=== PATIENT | male | born 1940 | race Caucasian/White ===

== ENCOUNTER → 2017-01-29 | Outpatient (CLI) | payer MEDICARE, OTHER ==
[~2017-01-29] MED LIST: AC325T PO; ACET325T38 PO; ACHD5005 PO; ALBU0.8322 IH; ALBU2.5V4 INH; ALBU2.5V52 INH; ALBUTEROL INHALER; ALDACTONE25 MG; AMIO400T5 PO; ANTIBIOTIC; ASCO500C14 PO; ASCO500T20 PO; ASP81TEC PO; Amiodarone Hcl PO; Atorvastatin Calcium PO; BUDE6HFA INH; BUDESONIDE IH; CEFU500T PO; CHLO15MO3 MM; CHLORHEXIDINE GLUCON; CHLORHEXIDINE GLUCONATE PO; CHOL10002 PO; CHOL10003 PO; CLAR-19 PO; CLOP75TA PO; CRV25T; DIAZ2TAB2 PO; DIGO250T; DIGO250T15 PO; DIGO250T96 PO; DIGOXIN; DZPM2T PO; ESCI5TAB PO; Erythromycin OP; FLUT1DIS26 INH; FORMOTEROL FUMARATE IH; FRSM40T PO; GFN600TCR PO; HYDR-1231 PO; LEVO200T30 PO; LEVO300T2 PO; LEVO50TA63 PO; LEVO75TA6 PO; LISI10TA2 PO; LISI20TA PO; LSNP20T; Lisinopril PO; MELO-195 PO; MENT71OI EXT; MENT71OI TP; METO-272 PO; MNTL10T PO; MONT10TA24 PO; MORP5VIA IV; MPR22TI TOP; MTP25TSR PO; NYST1000 PO; Non Medication Item MC; Non Medication Item TP; Nystatin PO; Ondansetron PO; PHEN-633 PO; PHEN100C4 PO; PHEN64.8 PO; PHENOBARBITOL PO; PHN100C; PHN100C PO; PNT40TEC PO; POLY17PO23 PO; PRD20T PO; Polyethylene Glycol PO; Prednisone PO; SCP1.5TD TOP; SCR1T1 PO; SIMV10TA3 PO; SIMV40TA2 PO; SIMV40TA4 PO; SIMV80TA3 PO; WRF5T; [UNRECOGNIZED DRUG - CODE] PO
== END ==
LOC: RAD 12:41
PROVIDERS: ATTEND Internal Medicine Cardiovascular Disease
DX: I73.9 Peripheral vascular disease, unspecified (principal); I25.10 Atherosclerotic heart disease of native coronary artery without angina pectoris; Z95.810 Presence of automatic (implantable) cardiac defibrillator; I65.23 Occlusion and stenosis of bilateral carotid arteries; K21.9 Gastro-esophageal reflux disease without esophagitis; I25.5 Ischemic cardiomyopathy; I70.0 Atherosclerosis of aorta
CPT/HCPCS: 93923

== ENCOUNTER 2017-04-11 14:35 | Outpatient (RCR) | payer MEDICARE, OTHER | END 2017-04-14 | disposition home or self-care (01) | PROVIDERS: ATTEND Pain Medicine Interventional Pain Medicine | DX: R26.89 Other abnormalities of gait and mobility (principal); M48.06 Spinal stenosis, lumbar region ==

== ENCOUNTER 2017-05-27 13:27 | Outpatient (RCR) | payer MEDICARE, OTHER | END 2017-06-01 | disposition home or self-care (01) | PROVIDERS: ATTEND Pain Medicine Interventional Pain Medicine | DX: R26.89 Other abnormalities of gait and mobility (principal); M48.06 Spinal stenosis, lumbar region ==

== ENCOUNTER 2017-07-23 14:00 | Outpatient (RCR) | payer MEDICARE, OTHER | END 2017-07-23 14:41 | disposition home or self-care (01) | PROVIDERS: ATTEND Pain Medicine Interventional Pain Medicine | DX: M48.061 Spinal stenosis, lumbar region without neurogenic claudication (principal); R26.89 Other abnormalities of gait and mobility ==

== ENCOUNTER 2017-10-07 13:02 | Outpatient (RCR) | payer MEDICARE, OTHER | END 2017-10-07 13:47 | disposition home or self-care (01) | PROVIDERS: ATTEND Physician Assistant | DX: R26.89 Other abnormalities of gait and mobility (principal) ==

== ENCOUNTER → 2018-01-01 | Outpatient (RCR) | payer MEDICARE, OTHER | END | disposition home or self-care (01) | LOC: CR3 12-02 06:00 | PROVIDERS: ATTEND Internal Medicine Cardiovascular Disease | DX: Z29.8 Encounter for other specified prophylactic measures (principal) ==

== ENCOUNTER 2018-01-31 15:23 | Outpatient (RCR) | payer MEDICARE, OTHER | END 2018-02-02 | disposition home or self-care (01) | LOC: CR3 15:23 | PROVIDERS: ATTEND Internal Medicine Cardiovascular Disease | DX: Z29.8 Encounter for other specified prophylactic measures (principal) ==

== ENCOUNTER 2018-03-03 16:35 | Outpatient (RCR) | payer MEDICARE, OTHER | END 2018-03-05 | disposition home or self-care (01) | LOC: CR3 16:35 | PROVIDERS: ATTEND Internal Medicine Cardiovascular Disease | DX: Z29.8 Encounter for other specified prophylactic measures (principal) | CPT/HCPCS: 93798 ==

== ENCOUNTER 2018-04-04 17:33 | Outpatient (RCR) | payer MEDICARE, OTHER | END 2018-04-06 | disposition home or self-care (01) | LOC: CR3 17:33 | PROVIDERS: ATTEND Internal Medicine Cardiovascular Disease | DX: Z29.8 Encounter for other specified prophylactic measures (principal) ==

== ENCOUNTER → 2018-05-07 | Outpatient (RCR) | payer MEDICARE, OTHER | END | disposition home or self-care (01) | LOC: CR3 04-07 13:25 | PROVIDERS: ATTEND Internal Medicine Cardiovascular Disease | DX: Z29.8 Encounter for other specified prophylactic measures (principal) ==

== ENCOUNTER 2018-05-30 12:54 | Outpatient (RCR) | payer MEDICARE, OTHER | END 2018-06-01 | disposition home or self-care (01) | PROVIDERS: ATTEND Internal Medicine | DX: R26.81 Unsteadiness on feet (principal) ==

== ENCOUNTER 2018-06-06 12:56 | Outpatient (RCR) | payer MEDICARE, OTHER | END 2018-06-06 14:34 | disposition home or self-care (01) | PROVIDERS: ATTEND Internal Medicine | DX: R26.81 Unsteadiness on feet (principal) ==

== ENCOUNTER 2018-06-06 14:08 | Outpatient (RCR) | payer MEDICARE, OTHER | END 2018-06-08 | disposition home or self-care (01) | LOC: CR3 14:08 | PROVIDERS: ATTEND Internal Medicine Cardiovascular Disease | DX: Z29.8 Encounter for other specified prophylactic measures (principal) ==

== ENCOUNTER → 2018-07-09 | Outpatient (RCR) | payer MEDICARE, OTHER | END | disposition home or self-care (01) | LOC: CR3 06-09 14:00 | PROVIDERS: ATTEND Internal Medicine Cardiovascular Disease | DX: Z29.8 Encounter for other specified prophylactic measures (principal) ==

== ENCOUNTER 2018-08-06 14:42 | Outpatient (RCR) | payer MEDICARE, OTHER | END 2018-08-10 | disposition home or self-care (01) | LOC: CR3 14:42 | PROVIDERS: ATTEND Internal Medicine Cardiovascular Disease | DX: Z29.8 Encounter for other specified prophylactic measures (principal) ==

== ENCOUNTER 2018-09-01 14:03 | Outpatient (RCR) | payer MEDICARE, OTHER | END 2018-09-03 10:27 | disposition home or self-care (01) | PROVIDERS: ATTEND Otolaryngology Otolaryngology/Facial Plastic Surgery | DX: R42 Dizziness and giddiness (principal); R29.6 Repeated falls ==

== ENCOUNTER → 2018-09-10 | Outpatient (RCR) | payer MEDICARE, OTHER | END | disposition home or self-care (01) | LOC: CR3 08-11 15:22 | PROVIDERS: ATTEND Internal Medicine Cardiovascular Disease | DX: Z29.8 Encounter for other specified prophylactic measures (principal) ==

== ENCOUNTER 2018-09-11 12:55 | Outpatient (RCR) | payer MEDICARE, OTHER | END 2018-10-01 12:20 | disposition home or self-care (01) | PROVIDERS: ATTEND Otolaryngology Otolaryngology/Facial Plastic Surgery | DX: R42 Dizziness and giddiness (principal); R29.6 Repeated falls ==

== ENCOUNTER 2018-10-10 15:35 | Outpatient (RCR) | payer MEDICARE | END 2018-10-12 | disposition home or self-care (01) | LOC: CR3 15:35 | PROVIDERS: ATTEND Internal Medicine Cardiovascular Disease | DX: Z29.8 Encounter for other specified prophylactic measures (principal) ==

== ENCOUNTER → 2018-11-12 | Outpatient (RCR) | payer MEDICARE | END | disposition home or self-care (01) | LOC: CR3 10-13 14:00 | PROVIDERS: ATTEND Internal Medicine Cardiovascular Disease | DX: Z29.8 Encounter for other specified prophylactic measures (principal) ==

== ENCOUNTER 2018-12-12 14:52 | Outpatient (RCR) | payer MEDICARE | END 2018-12-14 | disposition home or self-care (01) | LOC: CR3 14:52 | PROVIDERS: ATTEND Internal Medicine Cardiovascular Disease | DX: Z29.8 Encounter for other specified prophylactic measures (principal) ==

== ENCOUNTER → 2019-01-16 | Outpatient (RCR) | payer MEDICARE | END | disposition home or self-care (01) | LOC: CR3 12-17 14:00 | PROVIDERS: ATTEND Internal Medicine Cardiovascular Disease | DX: Z29.8 Encounter for other specified prophylactic measures (principal) ==

== ENCOUNTER → 2019-01-20 | Outpatient (CLI) | payer MEDICARE ==
[~2019-01-20] VITALS: Ht 180.3 cm; Wt 94.3 kg
[~2019-01-20] MED LIST changes: +CATHETER FLUSH 10 ML SYR IV PRN; +REGADENOSON 0.4 MG/5 ML SYR (LEXISCAN) IV ONE
[2019-01-20 13:29] VITALS: BP 161/76
[2019-01-20 13:33] VITALS: BP 158/77
== END ==
LOC: CARD 11:46
PROVIDERS: ATTEND Nurse Practitioner Family
DX: I25.10 Atherosclerotic heart disease of native coronary artery without angina pectoris (principal); R06.09 Other forms of dyspnea; I34.0 Nonrheumatic mitral (valve) insufficiency
CPT/HCPCS: 78452; 93017; 93306

== ENCOUNTER → 2019-02-18 | Outpatient (RCR) | payer MEDICARE ==
[~2019-02-18] MED LIST changes: -CATHETER FLUSH 10 ML SYR IV PRN; -REGADENOSON 0.4 MG/5 ML SYR (LEXISCAN) IV ONE
== END | disposition home or self-care (01) ==
LOC: CR3 01-19 14:00
PROVIDERS: ATTEND Internal Medicine Cardiovascular Disease
DX: Z29.8 Encounter for other specified prophylactic measures (principal)

== ENCOUNTER 2019-03-12 23:50 | Emergency (ER) | payer MEDICARE, OTHER ==
[~2019-03-12] VITALS: Ht 180.3 cm; Wt 94.3 kg
--- NOTE | 2019-03-12 23:50 | NUR ---
PATIENT ARRIVES VIA EMS TO ROOM 3. PATIENT IS A&OX4, DENIES LOC FROM FALL. VERBALIZES HE FELL WHILE HE WAS GETTING READY FOR BED.
--- OUTSIDE RECORDS SUMMARY | 2019-03-12 23:58 | XMS REPORT | Clinical Summary ---
Author Author User, [employer] Organization Autumn Barrientos DO, DUNCANP Address Unknown Phone Allergies, Adverse Reactions, Alerts Allergy Name Reaction Description Start Date Severity Status Provider No Known Allergies Silvino Hsieh Conditions or Problems Problem Name Problem Code Onset Date Status Entry Date Provider Comment Standard Description Annotate COUMADIN THERAPY V58.61 Resolved Autumn Barrientos Long-term (current) use of anticoagulants CAD 414.00 Active Autumn Barrientos Coronary atherosclerosis of unspecified type of vessel, [place] or graft SEIZURE 780.3 Active Autumn Barrientos Convulsions TREMOR NEC 333.1 Active Autumn Barrientos Essential and other specified forms of tremor BENIGN PROSTATIC HYPERTROPHY, HX OF V13.8 Active Autumn Barrientos Personal history of other specified diseases NODULAR PROSTATE WITHOUT URINARY OBSTRUCTION 600.10 Resolved Autumn Barrientos Nodular prostate without urinary obstruction 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 Autumn Barrientos Achalasia and cardiospasm BRONCHITIS 490 Resolved Autumn Barrientos Bronchitis, not specified as acute or chronic RESPIRATORY FAILURE, ACUTE 518.81 Resolved Autumn Brarientos Acute respiratory failure PNEUMONIA 486 Resolved Autumn Barrientos Pneumonia, organism unspecified WHEEZING 786.07 Resolved Autumn Barrientos Wheezing ASTHMA, CHRN OBST W/(ACUTE) EXACERBATION 493.22 Resolved Autumn Barrientos Chronic obstructive asthma, with (acute) exacerbation ASTHMA, INTERMITTENT, 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 Active Autumn Barrientos Intrinsic asthma, unspecified CHF 428.0 Resolved Autumn Barrientos Congestive heart failure, unspecified DYSPNEA 786.09 Active Autumn Barrientos Other dyspnea and respiratory abnormality TORTICOLLIS 723.5 Resolved Autumn Barrientos Torticollis, unspecified HERPES ZOSTER 053.9 Resolved Autumn Barrientos Herpes zoster without mention of complication THRUSH 112.0 Resolved Autumn Barrientos Candidiasis of mouth BACK PAIN 724.5 Resolved Autumn Barrientos Backache, unspecified SINUSITIS, SPHENOIDAL, ACUTE 461.3 Resolved Autumn Barrientos Acute sphenoidal sinusitis FOOT PAIN, RIGHT 729.5 Resolved Autumn Barrientos Pain in limb COUGH 786.2 Resolved Autumn Barrientos Cough CHF 428.0 Active Autumn Barrientos Congestive heart failure, unspecified TINEA CRURIS 110.3 Resolved Autumn Barrientos Dermatophytosis of groin and perianal area ALKALINE PHOSPHATASE, ELEVATED 790.5 Resolved Autumn Barrientos Other nonspecific abnormal serum enzyme levels COPD 496 Active Autumn Barrientos Chronic airway obstruction, not elsewhere classified HYPERTENSION 401.1 Active Autumn Barrientos Benign essential hypertension EAR PAIN, BILATERAL 388.70 Resolved Autumn Barrientos Otalgia, unspecified KNEE PAIN 719.46 Resolved Autumn Barrientos Pain in joint involving lower leg CERUMEN IMPACTION, BILATERAL 380.4 Resolved Autumn Barrientos Impacted cerumen THROMBOCYTOPENIA, CHRONIC 287.5 Resolved Autumn Barrientos Thrombocytopenia, unspecified LEUKOPENIA, MILD 288.50 Resolved Autumn Barrientos Leukocytopenia, unspecified SICK SINUS SYNDROME 427.81 Active Autumn Barrientos Sinoatrial node dysfunction HAND PAIN, LEFT 729.5 Resolved Autumn Barrientos Pain in limb RESPIRATORY FAILURE, ACUTE 518.81 Resolved Autumn Barrientos Acute respiratory failure PNEUMONIA 486 Resolved Autumn Barrientos Pneumonia, organism unspecified INFLUENZA W/RESPIRATORY MANIFESTATION NEC 487.1 Resolved Autumn Barrientos Influenza with other respiratory manifestations LIVER FUNCTION TESTS, ABNORMAL 794.8 Resolved Autumn Barrientos Nonspecific abnormal results of function study of liver BRONCHITIS 490 Resolved Autumn Barrientos Bronchitis, not specified as acute or chronic DEPRESSION 311 Active Autumn Barrientos Depressive disorder, not elsewhere classified PRESSURE ULCER BUTTOCK 707.05 Resolved Autumn Barrientos Pressure ulcer, buttock HIP PAIN 719.45 Inactive Autumn Barrientos Pain in joint involving pelvic region and thigh MICROSCOPIC HEMATURIA 599.72 Inactive Autumn Barrientos Microscopic hematuria BRONCHITIS, CHRONIC 491.9 Resolved Autumn Barrientos Unspecified chronic bronchitis TORTICOLLIS 723.5 Resolved Autumn Barrientos Torticollis, unspecified HYPOTHYROIDISM, PRIMARY 244.9 Active Autumn Barrientos Unspecified hypothyroidism BRONCHITIS, ACUTE 466.0 Resolved Autumn Barrientos Acute bronchitis Medication List Medication Instructions Start Date Stop Date Generic Name NDC Status Provider Patient Instruction DOXYCYCLINE HYCLATE 100 MG CAP 1 po BID DOXYCYCLINE HYCLATE [id number] No Longer Active Autumn Barrientos PREDNISONE 10 MG TAB 4 PO at one time once daily for 2 days, then 3 PO at one time once daily for 2 days, and 2 PO at one time once daily for 2 days, and then 1 PO daily for 2 days. PREDNISONE [id number] No Longer Active Autumn Barrientos SYNTHROID 0.075 MG TAB 1 PO daily LEVOTHYROXINE SODIUM 66621569915 Active Autumn Barrientos NYSTATIN SUSP 5 ML PO Q 6 HRS NYSTATIN SUSP 47890533039 No Longer Active Autumn Barrientos AMIODARONE HCL 400 MG TABS 1 PO every other day AMIODARONE HCL 91787905817 No Longer Active Autumn Barrientos PREDNISONE 10 MG TABS TAKE 4 TABS PO DAILY X 2 DAYS, THEN 3 PILLS PO DAILY X 2 DAYS, THEN 2 PILLS PO DAILY X 2 DAYS, THEN ONE PILL PO DAILY X 2 DAYS PREDNISONE 80507057145 No Longer Active Autumn Barrientos VITAMIN C 500 MG TABS 2 po daily ASCORBIC ACID 26973487568 No Longer Active Autumn Barrientos HYDROCODONE-ACETAMINOPHEN 5-325 MG TABS 1-2 PO Q4-6 hrs prn pain HYDROCODONE-ACETAMINOPHEN 29951016097 No Longer Active Autumn Barrientos ZOCOR 10 MG TAB 1 PO Daily SIMVASTATIN 13594258448 Active Autumn Barrientos TRANSDERM-SCOP 1.5 MG PT72 1 patch behind ear and change every 3 days SCOPOLAMINE BASE 56145051719 No Longer Active Autumnnicole Barrientos LISINOPRIL 5 MG TABS 1 po daily LISINOPRIL 25679738235 Active Autumn Shira Barrientos DIGOXIN 0.25 MG TABS 1 PO daily DIGOXIN 08628886671 Active Autumn Shira Barrientos TOPROL XL 25 MG [id number] 2 PO daily METOPROLOL SUCCINATE 17315435515 Active Autumn Shira Barrientos VALIUM 2 MG TAB 1/2 - 1 PO BID prn muscle spasm DIAZEPAM 27437948940 No Longer Active Autumn Shira Barrientos KENALOG 0.1 % CREA apply to affected areas BID TRIAMCINOLONE ACETONIDE No Longer Active Autumnnicole Barrientos PREDNISONE 20 MG TAB 2 pills at once for 2 days then 1 pill daily for 5 days PREDNISONE 85764876372 No Longer Active Autumn Barrientos DOXYCYCLINE HYCLATE 100 MG CAP 1 po BID DOXYCYCLINE HYCLATE 97811806961 No Longer Active Autumnnicole Barrientos CALMOSEPTINE 0.44-20.625 % OINT Apply to affected areas TID prn MENTHOL-ZINC OXIDE 98217439019 Active Autumnnicole Barrientos BIAXIN 500 MG TAB 1 PO BID CLARITHROMYCIN 90738688190 No Longer Active Autumn Barrientos PREDNISONE 20 MG TAB 2 pills at once for 3 days then 1 pill daily for 5 days PREDNISONE 21774706469 No Longer Active Prabha Carmona PREDNISONE 20 MG TAB 2 pills at once for 4 days then 1 pill daily for 4 days PREDNISONE 90412948191 No Longer Active Autumnnicole Barrientos LEVAQUIN 500 MG TAB 1 PO QD LEVOFLOXACIN 85827150323 No Longer Active Autumnnicole Barrientos TYLENOL 325 MG TABS 2 po q 4 hrs prn pain ACETAMINOPHEN 11334765926 No Longer Active Autumn Shira Barrientos CALMOSEPTINE 0.44-20.625 % OINT Apply to affected area QID prn MENTHOL-ZINC OXIDE 98315612428 No Longer Active Autumn Shira Barrientos JANE ALLERGY 180 MG TABS 1 PO daily FEXOFENADINE HCL 04719070715 No Longer Active Autumn Shira Barrientos VALIUM 2 MG TAB 1 PO QHS prn DIAZEPAM 24671189084 No Longer Active Autumn Shira Barrientos FLEXERIL 10 MG TAB 1 PO QHS prn CYCLOBENZAPRINE HCL 18051472432 No Longer Active Autumn Shira Barrientos ANUSOL-HC 2.5 % CREA apply to affected area on rectum TID prn. HYDROCORTISONE 13156990217 No Longer Active Autumn Shira Barrientos LOTRISONE 0.05-1 % CREAM apply to affected areas twice daily CLOTRIMAZOLE-BETAMETHASONE 44706431140 No Longer Active Autumn Shira Barrientos SINGULAIR 10 MG TABS 1 PO QHS MONTELUKAST SODIUM 99640417471 Active Autumn Shira Barrientos PREDNISONE 20 MG TAB 2 pills at once for 3 days then 1 pill daily for 5 days PREDNISONE 69280893007 No Longer Active Autumn Shira Barrientos FUROSEMIDE 40 MG TABS 1 PO every day FUROSEMIDE 74388286011 Active Autumn Shira Barrientos TAMIFLU 75 MG CAPS 1 PO DAILY X 10 DAYS OSELTAMIVIR PHOSPHATE 62392967717 No Longer Active Autumn Shira Barrientos PREDNISONE 20 MG TABS 1 PO DAILY x 7 days then DC PREDNISONE 66304797599 No Longer Active Autunm Shira Barrientos PREDNISONE 20 MG TAB 2 pills at once for 3 days then 1 pill daily for 3 days PREDNISONE 72254100203 No Longer Active Autumn Shira Barrientos DOXYCYCLINE HYCLATE 100 MG CAP 1 po BID DOXYCYCLINE HYCLATE 38992931394 No Longer Active Autumn Barrientos DOCUSATE SODIUM 60 MG/15ML SYRP 2 drops left ear let stand for 5 minutes then rinse. Use daily for 7 days then return to office for flushing of ears DOCUSATE SODIUM 36276884233 No Longer Active Autumn Barrientos PREDNISONE 20 MG TAB 2 pills at once for 3 days then 1 pill daily for 3 days PREDNISONE 42640208265 No Longer Active Autumn Barrientos DOXYCYCLINE HYCLATE 100 MG CAP 1 po BID DOXYCYCLINE HYCLATE 15835989286 No Longer Active Autumn Barrientos MOBIC 15 MG TABS 1 PO daily for knee pain MELOXICAM 99336460327 No Longer Active Autumn Barrientos VITAMIN D 1000 UNIT TABS 2 PO Daily CHOLECALCIFEROL 42469466578 Active Autumn Barrientos DILANTIN 100 MG CAPS 2 PO QAM and 3 PO QPM PHENYTOIN SODIUM EXTENDED 92991705091 Active Briana Alford PLAVIX 75 MG TABS 1 PO every other day CLOPIDOGREL BISULFATE 85567784774 No Longer Active Autumn Barrientos PREDNISONE 20 MG TAB 3 pills daily at once for 2 days, 2 pills daily at once for 2 days, 1 once daily for 2 days PREDNISONE 83270811867 No Longer Active Autumn Barrientos LEVAQUIN 500 MG TAB 1 PO QD LEVOFLOXACIN 30850040677 No Longer Active Autumn Barrientos ZOSTAVAX 15927 UNT/0.65ML SOLR 1 injection once to prevent Shingles ZOSTER VACCINE LIVE 94674117082 No Longer Active Autumn Barrientos SYMBICORT 160-4.5 MCG/ACT AERO 2 puffs twice daily BUDESONIDE-FORMOTEROL FUMARATE 06858127685 Active Briana Alford ATROVENT 0.06 % SOLN 2 puffs each nostril TID prn runny nose IPRATROPIUM BROMIDE 63666994009 No Longer Active Autumn Barrientos PREDNISONE 20 MG TAB 3 pills daily at once for 2 days, 2 pills daily at once for 2 days, 1 once daily for 2 days PREDNISONE 78990410646 No Longer Active Autumn Barrientos BIAXIN 500 MG TAB 1 PO BID CLARITHROMYCIN 37744029318 No Longer Active Autumn Barrientos MOBIC 15 MG TABS 1 po daily MELOXICAM 73209762843 No Longer Active Autumn Barrientos PREDNISONE 20 MG TAB 3 pills daily at once for 2 days, 2 pills daily at once for 2 days, 1 once daily for 2 days PREDNISONE 89244198457 No Longer Active Autumn Barrientos TESSALON 200 MG CAPS 1 PO TID prn cough BENZONATATE 41667561436 No Longer Active Autumn Barrientos AUGMENTIN 500-125 MG TAB 1 PO BID AMOXICILLIN-POT CLAVULANATE 87885224416 No Longer Active Autumn ROBLEDO'Jone NASAL SPRAY (DEXAMETHASONE, GENTAMICIN, SALINE) 2 puffs each nostril TID for [address] HANLEY NASAL SPRAY (DEXAMETHASONE, GENTAMICIN, SALINE) No Longer Active Autumn Barrientos LOTRISONE 0.05-1 % CREAM Apply BID to affected areas CLOTRIMAZOLE-BETAMETHASONE 68499586932 No Longer Active Autumn Barrientos ACYCLOVIR 800 MG TABS 1 PO five times a day for 10 days ACYCLOVIR 65558470839 No Longer Active Autumn Barrientos LORTAB 5 5-500 MG TABS 1 to 2 PO Q6hrs prn ACETAMINOPHEN-HYDROCODONE 46310721334 No Longer Active Autumn Shira Barrientos VALTREX 1 GM TAB 1 PO BID VALACYCLOVIR HCL 37355846631 No Longer Active Autumn Shira Barrientos NYSTATIN 900968 U/ML SUSP 5cc PO QID for 7 days NYSTATIN 24854356582 No Longer Active Autumn Shira Barrientos DIFLUCAN 100 MG TAB 1 PO daily for five days FLUCONAZOLE 95945806987 No Longer Active Autumn Shira Barrientos MIRALAX POWD 1 scoop in 4oz of water PO daily POLYETHYLENE GLYCOL 3350 23824622895 Active Autumn Shira Barrientos BIAXIN 500 MG TAB 1 PO BID CLARITHROMYCIN 94849021150 No Longer Active Autumn Shira Barrientos MUCINEX 600 MG [id number] 1 po BID prn as needed GUAIFENESIN 44489297572 Active Autumn Shira Barrientos PREDNISONE 10 MG TAB 1 PO daily PREDNISONE 88194298414 No Longer Active Autumn Shira Barrientos ALBUTEROL SULFATE 0.083 % NEBU SOLN 1 Treatment QID ALBUTEROL SULFATE 85375112666 Active Autumn Shira Barrientos DARVOCET-N 100 100-650 MG TAB 1 PO Q4hrs prn pain PROPOXYPHENE N-APAP 90285201413 No Longer Active Autumn Shira Barrientos ASPIRIN 81 MG TAB 1 PO daily ASPIRIN 97947047204 Active Autumn Shira Barrientos COREG 25 MG TABS 1 po BID CARVEDILOL 13495814945 No Longer Active Autumn Shira Barrientos ALDACTONE 25 MG TABS 1/2 po every other day SPIRONOLACTONE 23665503222 No Longer Active Autumn Shira Barrientos CHLORPHENIRAMINE MALEATE 4 MG TABS 1 PO Q6hrs prn for cold CHLORPHENIRAMINE MALEATE 93967309848 No Longer Active Autumn Shira Barrientos PREDNISONE 20 MG TAB 2 pills at once for 3 days then 1 pill daily for 3 days PREDNISONE 53022553390 No Longer Active Autumn Barrientos BIAXIN 500 MG TAB 1 PO BID CLARITHROMYCIN 96209666771 No Longer Active Autumn Shira Barrientos CHLORHEXIDINE GLUCONATE 0.12 % SOLN Rinse mouth 2 times a day CHLORHEXIDINE GLUCONATE 70943816460 Active Autumn Barrientos COUMADIN 5 MG TABS 1 po daily WARFARIN SODIUM 12590839083 No Longer Active Autumn Shira Barrientos PHENOBARBITAL 64.8 MG TABS 2 po at HS PHENOBARBITAL 82934589648 Active Briana Alford Immunizations Vaccine Administration Date Value Standard Description Influenza vaccine given Done influenza virus vaccine, unspecified formulation Influenza vaccine given DONE influenza virus vaccine, unspecified formulation Influenza vaccine given Done influenza virus vaccine, unspecified formulation Comvax, combined Hemophilus influenza B and Hepatitis B virus vaccine Done - [facility] Haemophilus influenzae type b conjugate and Hepatitis B vaccine pneumococcal immunization administered Dr Barrientos pneumococcal polysaccharide vaccine, 23 valent Vital Signs Date Name Value Unit Range Description blood pressure, diastolic - 8462-4 62 mm[Hg] BP fuentes blood pressure, systolic - 8480-6 124 mm[Hg] BP sys pulse rate E&M - 8867-4 64 /min Heart rate respiratory rate E&M - 9279-1 14 /min Resp rate weight E&M - 3141-9 215 [lb_av] Weight Measured blood pressure, diastolic - 8462-4 60 mm[Hg] BP fuentes blood pressure, systolic - 8480-6 102 mm[Hg] BP sys pulse rate E&M - 8867-4 60 /min Heart rate respiratory rate E&M - 9279-1 14 /min Resp rate temperature E&M 97.5 [degF] Body temperature weight E&M - 3141-9 210 [lb_av] Weight Measured blood pressure, diastolic - 8462-4 64 mm[Hg] BP fuentes blood pressure, systolic - 8480-6 128 mm[Hg] BP sys pulse rate E&M - 8867-4 68 /min Heart rate respiratory rate E&M - 9279-1 14 /min Resp rate temperature E&M 97.8 [degF] Body temperature weight E&M - 3141-9 213 [lb_av] Weight Measured blood pressure, diastolic - 8462-4 60 mm[Hg] BP fuentes blood pressure, systolic - 8480-6 100 mm[Hg] BP sys pulse rate E&M - 8867-4 62 /min Heart rate respiratory rate E&M - 9279-1 14 /min Resp rate weight E&M - 3141-9 210 [lb_av] Weight Measured blood pressure, diastolic - 8462-4 60 mm[Hg] BP fuentes blood pressure, systolic - 8480-6 106 mm[Hg] BP sys pulse rate E&M - 8867-4 76 /min Heart rate respiratory rate E&M - 9279-1 14 /min Resp rate weight E&M - 3141-9 200 [lb_av] Weight Measured blood pressure, diastolic - 8462-4 68 mm[Hg] BP fuentes blood pressure, systolic - 8480-6 124 mm[Hg] BP sys pulse rate E&M - 8867-4 66 /min Heart rate respiratory rate E&M - 9279-1 14 /min Resp rate temperature E&M 97.9 [degF] Body temperature weight E&M - 3141-9 205 [lb_av] Weight Measured blood pressure, diastolic - 8462-4 64 mm[Hg] BP fuentes blood pressure, systolic - 8480-6 126 mm[Hg] BP sys pulse rate E&M - 8867-4 60 /min Heart rate respiratory rate E&M - 9279-1 14 /min Resp rate temperature E&M 98.6 [degF] Body temperature weight E&M - 3141-9 212 [lb_av] Weight Measured blood pressure, diastolic - 8462-4 60 mm[Hg] BP fuentes blood pressure, systolic - 8480-6 140 mm[Hg] BP sys pulse rate E&M - 8867-4 64 /min Heart rate respiratory rate E&M - 9279-1 14 /min Resp rate temperature E&M 97.9 [degF] Body temperature weight E&M - 3141-9 210 [lb_av] Weight Measured blood pressure, diastolic - 8462-4 66 mm[Hg] BP fuentes blood pressure, systolic - 8480-6 154 mm[Hg] BP sys pulse rate E&M - 8867-4 60 /min Heart rate respiratory rate E&M - 9279-1 18 /min Resp rate weight E&M - 3141-9 215 [lb_av] Weight Measured blood pressure, diastolic - 8462-4 70 mm[Hg] BP fuentes blood pressure, systolic - 8480-6 130 mm[Hg] BP sys pulse rate E&M - 8867-4 64 /min Heart rate respiratory rate E&M - 9279-1 14 /min Resp rate temperature E&M 98.6 [degF] Body temperature weight E&M - 3141-9 220 [lb_av] Weight Measured Diagnostic Results Date Name Value Unit Range Description Clinical Lists Update: CBC,CMP,CHOL,TRIG,TSH,FREE T4,DILANTIN,,FERRITIN,DIGOXIN - Chemistry potassium, serum 4.5 mmol/L protein, total, serum 7.1 g/dL aspartate aminotransferase (SGOT), serum 15 U/L alanine aminotransferase (SGPT), serum 17 U/L sodium, serum 136 mmol/L chloride, serum 99 mmol/L cholesterol, serum 216 mg/dL carbon dioxide, venous blood 30.0 mmol/L creatinine, serum 1.2 mg/dL Estimated Glomerular Filtration Rate (calc) 62 mL/min/1.73m2 ferritin, serum 133.9 ng/mL glucose, plasma fasting 103 mg/dL albumin, serum 4.2 g/dL alkaline phosphatase, serum 144 U/L anion gap, serum 12 bilirubin, serum, total 0.3 mg/dL urea nitrogen, blood 22 mg/dL calcium, serum 9.1 mg/dL thyroxine, serum, free 0.78 ng/dL triglyceride, serum, fasting 180 mg/dL thyroid stimulating hormone, serum 4.63 u[iU]/mL Clinical Lists Update: CBC,CMP,CHOL,TRIG,TSH,FREE T4,DILANTIN,,FERRITIN,DIGOXIN - Hematology mean corpuscular volume, RBC 101 fL erythrocyte (RBC) count 3.85 10*6/mm3 red blood cell distribution width 15.8 % platelet count 214 10*3/mm3 leukocyte count, blood 7.7 10*3/mm3 hematocrit, blood 39 % hemoglobin, blood 12.3 g/dL Clinical Lists Update: CBC,CMP,CHOL,TRIG,TSH,FREE T4,DILANTIN,,FERRITIN,DIGOXIN - Toxicology digoxin level, serum 0.8 ng/mL phenytoin level, serum 0.8 ug/mL Clinical Lists Update: CBC,CMP,Chol,Trig,TSH,Digoxin,Dilantin,Ferritin - Chemistry alkaline phosphatase, serum 170 U/L calcium, serum 8.7 mg/dL creatinine, serum 1.1 mg/dL carbon dioxide, venous blood 31.0 mmol/L cholesterol, serum 146 mg/dL triglyceride, serum, fasting 121 mg/dL chloride, serum 100 mmol/L protein, total, serum 6.7 g/dL sodium, serum 140 mmol/L urea nitrogen, blood 15 mg/dL alanine aminotransferase (SGPT), serum 45 U/L albumin, serum 3.8 g/dL anion gap, serum 14 bilirubin, serum, total 0.3 mg/dL potassium, serum 4.8 mmol/L glucose, plasma fasting 89 mg/dL aspartate aminotransferase (SGOT), serum 21 U/L ferritin, serum 66.7 ng/mL Estimated Glomerular Filtration Rate (calc) 70 mL/min/1.73m2 Clinical Lists Update: CBC,CMP,Chol,Trig,TSH,Digoxin,Dilantin,Ferritin - Hematology erythrocyte (RBC) count 3.93 10*6/mm3 hematocrit, blood 39 % red blood cell distribution width 15.3 % hemoglobin, blood 12.2 g/dL platelet count 214 10*3/mm3 mean corpuscular volume, RBC 100 fL leukocyte count, blood 5.8 10*3/mm3 Clinical Lists Update: CBC,CMP,Chol,Trig,TSH,Digoxin,Dilantin,Ferritin - Toxicology digoxin level, serum 0.9 ng/mL phenytoin level, serum 16.4 ug/mL Clinical Lists Update: CBC,CMP,Chol,Trig,TSH,Free T4,Ferritin, Digoxin, Dilantin - Chemistry alkaline phosphatase, serum 175 U/L albumin, serum 4.4 g/dL glucose, plasma fasting 92 mg/dL ferritin, serum 93.9 ng/mL Estimated Glomerular Filtration Rate (calc) 78 mL/min/1.73m2 creatinine, serum 1.0 mg/dL carbon dioxide, venous blood 30.0 mmol/L cholesterol, serum 185 mg/dL chloride, serum 99 mmol/L sodium, serum 137 mmol/L alanine aminotransferase (SGPT), serum 23 U/L aspartate aminotransferase (SGOT), serum 20 U/L protein, total, serum 7.2 g/dL potassium, serum 5.0 mmol/L triglyceride, serum, fasting 219 mg/dL thyroid stimulating hormone, serum 6.49 u[iU]/mL thyroxine, serum, free 0.88 ng/dL calcium, serum 9.4 mg/dL urea nitrogen, blood 18 mg/dL bilirubin, serum, total 0.4 mg/dL anion gap, serum 13 Clinical Lists Update: CBC,CMP,Chol,Trig,TSH,Free T4,Ferritin, Digoxin, Dilantin - Hematology mean corpuscular volume, RBC 99 fL red blood cell distribution width 14.6 % leukocyte count, blood 7.0 10*3/mm3 erythrocyte (RBC) count 4.69 10*6/mm3 hemoglobin, blood 14.5 g/dL platelet count 145 10*3/mm3 hematocrit, blood 46 % Clinical Lists Update: CBC,CMP,Chol,Trig,TSH,Free T4,Ferritin, Digoxin, Dilantin - Toxicology digoxin level, serum 1.3 ng/mL phenytoin level, serum 20.0 ug/mL Clinical Lists Update: CBC,CMP,Dilantin,Digoxin,Ferritin - Chemistry chloride, serum 106 mmol/L carbon dioxide, venous blood 29.0 mmol/L creatinine, serum 0.8 mg/dL Estimated Glomerular Filtration Rate (calc) 100 mL/min/1.73m2 ferritin, serum 74.6 ng/mL glucose, plasma fasting 104 mg/dL albumin, serum 4.2 g/dL alkaline phosphatase, serum 132 U/L anion gap, serum 12 bilirubin, serum, total 0.4 mg/dL urea nitrogen, blood 15 mg/dL calcium, serum 9.0 mg/dL potassium, serum 4.9 mmol/L protein, total, serum 6.9 g/dL aspartate aminotransferase (SGOT), serum 20 U/L alanine aminotransferase (SGPT), serum 26 U/L sodium, serum 142 mmol/L Clinical Lists Update: CBC,CMP,Dilantin,Digoxin,Ferritin - Hematology platelet count 154 10*3/mm3 leukocyte count, blood 5.2 10*3/mm3 mean corpuscular volume, RBC 98 fL hemoglobin, blood 13.2 g/dL erythrocyte (RBC) count 4.25 10*6/mm3 hematocrit, blood 42 % red blood cell distribution width 14.5 % Clinical Lists Update: CBC,CMP,Dilantin,Digoxin,Ferritin - Toxicology phenytoin level, serum 11.7 ug/mL digoxin level, serum 1.1 ng/mL Clinical Lists Update: CBC,CMP,UA IN [facility] LAB[facility] - Chemistry alanine aminotransferase (SGPT), serum 23 U/L sodium, serum 133 mmol/L aspartate aminotransferase (SGOT), serum 15 U/L potassium, serum 4.0 mmol/L calcium, serum 8.4 mg/dL urea nitrogen, blood 15 mg/dL bilirubin, serum, total 0.3 mg/dL alkaline phosphatase, serum 97 U/L chloride, serum 101 mmol/L carbon dioxide, venous blood 26 mmol/L creatinine, serum 1.12 mg/dL Estimated Glomerular Filtration Rate (calc) >60 mL/min/1.73m2 glucose, plasma fasting 148 mg/dL protein, total, serum 6.1 g/dL albumin, serum 3.1 g/dL Clinical Lists Update: CBC,CMP,UA IN PT LABS - Hematology mean corpuscular volume, RBC 94 fL leukocyte count, blood 5.7 10*3/mm3 platelet count 116 10*3/mm3 hematocrit, blood 32 % erythrocyte (RBC) count 3.37 10*6/mm3 hemoglobin, blood 10.6 g/dL red blood cell distribution width 14.3 % Clinical Lists Update: CBC,CMP,UA IN PT LABS - Urinalysis nitrite, urine, semiquantitative neg pH, urine, semiquantitative 5 protein, urine, semiquantitative (dipstick) 3+ RBC urine by microscopy 2-5 specific gravity, urine 1.025 glucose, urine, semiquantitative neg hyaline casts, urine none /[LPF] ketones, urine, by test strip neg appearance, urine Cloudy Yellow bacteria, urine microscopy moderate bilirubin, urine neg blood in urine (hemoglobin) by dipstick 3+ mucus on urinalysis neg WBC urine on microscopy 25-50 {Cells}/[HPF] urobilinogen, urine, semiquantitative (dipstick) 1 Clinical Lists Update: CMP,FLP,Digoxin [facility] - Chemistry triglyceride, serum, fasting 160 mg/dL carbon dioxide, venous blood 34.0 mmol/L urea nitrogen, blood 16 mg/dL potassium, serum 4.4 mmol/L bilirubin, serum, total 0.3 mg/dL protein, total, serum 7.1 g/dL anion gap, serum 9 alkaline phosphatase, serum 170 U/L albumin, serum 4.3 g/dL aspartate aminotransferase (SGOT), serum 17 U/L LDL cholesterol, serum 114 mg/dL alanine aminotransferase (SGPT), serum 23 U/L HDL cholesterol, serum 31.0 mg/dL sodium, serum 137 mmol/L glucose, plasma fasting 106 mg/dL Estimated Glomerular Filtration Rate (calc) 96 mL/min/1.73m2 chloride, serum 98 mmol/L cholesterol/HDL ratio, serum, percent 5.7 cholesterol, serum 177 mg/dL creatinine, serum 0.8 mg/dL calcium, serum 9.4 mg/dL Clinical Lists Update: CMP,FLP,Digoxin [facility] - Toxicology digoxin level, serum 1.1 ng/mL Clinical Lists Update: CMP,PT,INR,TSH,Digoxin [facility] - Chemistry carbon dioxide, venous blood 32.0 mmol/L bilirubin, serum, total 0.4 mg/dL thyroid stimulating hormone, serum 3.07 u[iU]/mL Estimated Glomerular Filtration Rate (calc) 92 mL/min/1.73m2 chloride, serum 100 mmol/L glucose, plasma fasting 100 mg/dL calcium, serum 9.3 mg/dL potassium, serum 4.7 mmol/L sodium, serum 139 mmol/L creatinine, serum 0.9 mg/dL protein, total, serum 7.0 g/dL urea nitrogen, blood 15 mg/dL alanine aminotransferase (SGPT), serum 30 U/L albumin, serum 4.2 g/dL aspartate aminotransferase (SGOT), serum 24 U/L alkaline phosphatase, serum 127 U/L anion gap, serum 12 Clinical Lists Update: CMP,PT,INR,TSH,Digoxin [facility] - Coagulation prothrombin time (patient) 12.60 s international normalized ratio (INR) 0.99 Clinical Lists Update: CMP,PT,INR,TSH,Digoxin [facility] - Toxicology digoxin level, serum 0.9 ng/mL Clinical Lists Update: UA - Urinalysis bilirubin, urine neg ketones, urine, by test strip neg glucose, urine, semiquantitative neg specific gravity, urine <1.005 pH, urine, semiquantitative 6.0 nitrite, urine, semiquantitative neg protein, urine, semiquantitative (dipstick) neg Office Visit: Dr Barrientos's Check Up: Established Patient Visit - Chemistry chloride, serum 97 mmol/L sodium, serum 139 mmol/L carbon dioxide, venous blood 29.0 mmol/L carbon dioxide, venous blood 31.0 mmol/L creatinine, serum 0.8 mg/dL creatinine, serum 1.0 mg/dL chloride, serum 101 mmol/L sodium, serum 135 mmol/L alanine aminotransferase (SGPT), serum 16 U/L alanine aminotransferase (SGPT), serum 18 U/L aspartate aminotransferase (SGOT), serum 15 U/L aspartate aminotransferase (SGOT), serum 14 U/L protein, total, serum 7.3 g/dL protein, total, serum 6.4 g/dL Estimated Glomerular Filtration Rate (calc) 106 mL/min/1.73m2 Estimated Glomerular Filtration Rate (calc) 75 mL/min/1.73m2 glucose, plasma fasting 147 mg/dL glucose, plasma fasting 94 mg/dL albumin, serum 4.0 g/dL albumin, serum 4.3 g/dL alkaline phosphatase, serum 138 U/L alkaline phosphatase, serum 139 U/L anion gap, serum 13 anion gap, serum 11 bilirubin, serum, total 0.4 mg/dL bilirubin, serum, total 0.4 mg/dL urea nitrogen, blood 14 mg/dL urea nitrogen, blood 22 mg/dL calcium, serum 8.8 mg/dL calcium, serum 9.1 mg/dL thyroxine, serum, free 0.87 ng/dL thyroid stimulating hormone, serum 3.13 u[iU]/mL thyroid stimulating hormone, serum 2.44 u[iU]/mL potassium, serum 4.1 mmol/L potassium, serum 4.3 mmol/L Office Visit: Dr Barrientos's Check Up: Established Patient Visit - Hematology erythrocyte (RBC) count 4.29 10*6/mm3 hemoglobin, blood 13.5 g/dL hematocrit, blood 43 % leukocyte count, blood 6.4 10*3/mm3 platelet count 143 10*3/mm3 mean corpuscular volume, RBC 99 fL red blood cell distribution width 15.1 % Office Visit: Dr Keller Check Up: Established Patient Visit - Toxicology digoxin level, serum 0.8 ng/mL Encounters Code Encounter Date Provider Facility CPT-86822 Ofc Vst, Est Level III 14:19:06 CDT Autumnnicole Becerril Barrientos, DO, FACP CPT-67253 Ofc Vst, Est Level III 13:33:45 CDT Autumn Shira Becerril Barrientos, DO, FACP CPT-67917 Ofc Vst, Est Level III 17:12:01 CDT Autumn Shira Becerril Barrientos, DO, FACP CPT-46398 Ofc Vst, Est Level IV 21:01:56 CDT Autumnnicole Becerril Barrientos, DO, FACP CPT-71974 Ofc Vst, Est Level III 15:48:19 [employer] Autumn Becerril Barrientos, DO, FACP CPT-06634 Ofc Vst, Est Level IV 15:01:25 [employer] Autumn Becerril Barrientos, DO, FACP CPT-67672 Ofc Vst, Est Level III 16:54:20 [employer] Autumn Becerril Barrientos, DO, FACP CPT-15455 Ofc Vst, Est Level III 19:49:29 CDT Autumnnicole Becerril Barrientos, DO, FACP CPT-18095 Ofc Vst, Est Level III 19:25:35 CDT Autumn Becerril Barrientos, DO, FACP CPT-26916 Ofc Vst, Est Level III 19:01:53 CDT Autumnnicole Becerril Barrientos, DO, FACP CPT-31757 Ofc Vst, Est Level III 16:32:38 [employer] Autumn Becerril Barrientos, DO, FACP CPT-05448 Ofc Vst, Est Level III 15:37:57 [employer] Autumn Barrientos [facility] CPT-60918 Ofc Vst, Est Level III 12:03:55 [employer]EL[employer] Autumn Becerril Barrientos, DO, FACP CPT-18603 Ofc Vst, Est Level III 15:47:39 CDT Autumn Shira Becerril Barrientos, DO, FACP CPT-78820 Ofc Vst, Est Level III 16:50:03 CDT Autumn Shira Becerril Barrientos, DO, FACP CPT-23577 Ofc Vst, Est Level III 16:44:49 CDT Autumn Shira Becerril Barrientos, DO, FACP CPT-15417 Ofc Vst, Est Level III 12:02:26 CDT Autumn Shira Becerril Barrientos, DO, FACP CPT-32314 Ofc Vst, Est Level III 16:20:59 CDT Autumn Shira Becerril Barrientos, DO, FACP CPT-58766 Ofc Vst, Est Level III 11:47:46 CDT Autumn Sh[facility] CPT-61554 Ofc Vst, Est Level III 15:01:40 CDT Autumn Shira Becerril Barrientos, DO, FACP CPT-07607 Ofc Vst, Est Level III 15:21:49 CDT Autumn Shira Becerril Barrientos, DO, FACP CPT-53788 Ofc Vst, Est Level III 11:46:40 [employer] Autumn Shira Becerril Barrientos, DO, FACP CPT-71790 Ofc Vst, Est Level III 16:04:08 [employer]EL[employer] Autumn Shira Becerril Barrientos, DO, FACP CPT-54764 Ofc Vst, Est Level III 12:47:46 [employer]EL[employer] Autumn Becerril Barrientos, DO, FACP CPT-89782 Ofc Vst, Est Level III 14:12:37 [employer]EL[employer] Autumn Shira Becerril Barrientos, DO, FACP CPT-99731 Ofc Vst, Est Level III 20:15:48 CDT Autumn Shira Becerril Barrientos, DO, FACP CPT-45194 Ofc Vst, Est Level III 14:50:03 CDT Autumn Shira Becerril Barrientos, DO, FACP CPT-60281 Ofc Vst, Est Level IV 11:07:07 CDT Autumn Shira Becerril Barrientos, DO, FACP CPT-15576 Ofc Vst, Est Level IV 10:56:03 [employer]EL[employer] Autumn Leyva S Barrientos, DO, FACP CPT-19194 Ofc Vst, Est Level III 10:34:42 [employer]EL[employer] Autumn Shira Leyva S Barrientos, DO, FACP CPT-69197 Ofc Vst, Est Level IV 11:18:10 [employer]EL[employer] Autumn Shira Becerril Iliana, DO, FACP CPT-63887 Ofc Vst, Est Level III 10:56:32 CDT Autumn Shira Becerril Iliana, DO, FACP CPT-00960 Ofc Vst, Est Level IV 11:11:23 CDT Autumn Shira Becerril Iliana, DO, FACP CPT-98189 Ofc Vst, Est Level IV 11:24:11 CDT Autumnnicole Becerril Iliana, DO, FACP CPT-99339 Ofc Vst, Est Level III 11:36:54 CDT Autumn Shira Becerril Iliana, DO, FACP CPT-14483 Ofc Vst, Est Level V 15:07:54 CDT Autumn Shira Leyva S Iliana, DO, FACP CPT-82025 Ofc Vst, Est Level III 16:05:11 CDT Autumn Shira Becerril Iliana, DO, FACP CPT-98158 Ofc Vst, Est Level IV 11:19:33 CDT Autumn Becerril Iliana, DO, FACP CPT-98899 Ofc Vst, Est Level III 11:16:56 [employer]EL[employer] Autumn Becerril Barrientos, DO, FACP CPT-23608 Ofc Vst, Est Level IV 11:12:37 [employer]ELOPER Autumn Becerril Barrientos, DO, FACP CPT-06056 Ofc Vst, Est Level IV 15:21:42 [employer] DEVELOPER Autumn Barrientos [facility] CPT-72407 Ofc Vst, Est Level IV 10:49:32 [employer]ELOPER Autumn Becerril Iliana, DO, FACP CPT-73102 Ofc Vst, Est Level IV 13:16:00 CDT Autumn Becerril Iliana, DO, FACP CPT-42359 Ofc Vst, Est Level IV 10:47:17 CDT Autumnnicole Becerril Iliana, DO, FACP CPT-72920 Ofc Vst, Est Level IV 10:22:32 CDT Autumnnicole Becerril Iliana, DO, FACP CPT-61811 Ofc Vst, Est Level III 10:35:26 CDT Autumn Becerril Iliana, DO, FACP CPT-53826 Ofc Vst, Est Level IV 11:29:20 CDT Autumnnicole Becerril Iliana, DO, FACP CPT-02145 Ofc Vst, Est Level IV 13:52:31 CDT Autumn Shira Becerril Iliana, DO, FACP CPT-43422 Ofc Vst, Est Level IV 11:41:20 CDT Autumn Becerril Iliana, DO, FACP CPT-48802 Ofc Vst, Est Level IV 09:38:08 [employer]EL[employer] Autumn Becerril Iliana, DO, FACP CPT-15027 Ofc Vst, Est Level V 11:02:14 [employer]EL[employer] Autumn Becerril Barrientos, DO, FACP CPT-03497 Ofc Vst, Est Level V 10:30:31 [employer]ELOPER Autumn Becerril Barrientos, DO, FACP CPT-92797 Ofc Vst, Est Level IV 11:14:50 [employer]ELOPER Autumn Becerril Barrientos, DO, FACP CPT-44530 Ofc Vst, Est Level V 11:06:34 [employer]ELOPER Autumn Becerril Barrientos, DO, FACP CPT-23794 Ofc Vst, Est Level IV 11:30:08 [employer] DEVELOPER Autumn Becerril Barrientos, DO, FACP CPT-91996 Ofc Vst, Est Level V 11:35:41 CDT Autumn Becerril Iliana, DO, FACP CPT-66289 Ofc Vst, Est Level IV 10:09:46 CDT Autumnnicole Becerril Barrientos, DO, FACP CPT-90824 Ofc Vst, Est Level V 13:55:27 CDT Autumn Becerril Barrientos, DO, FACP CPT-20003 Ofc Vst, Est Level V 11:20:26 CDT Autumn Becerril Iliana, DO, FACP CPT-85823 Ofc Vst, New Level IV 16:42:29 CDT Autumn Becerril Barrientos, DO, FACP Procedures Code Procedure Name Date Entry Date Standard Description CPT-G0439 Medicare Annual Wellness Visit 10:22:06 [employer] CPT-G0439 Medicare Annual Wellness Visit 15:50:07 CDT CPT-G8446 E-Prescribing not done due to controlled substance 19:01:53 CDT CPT-G8445 E-Prescribing Not sent due to no medication given 16:32:38 [employer] CPT-G8443 E-Prescribing Medication Sent 15:37:57 [employer] CPT-G8445 E-Prescribing Not sent due to no medication given 12:03:55 [employer]EL[employer] CPT-G8445 E-Prescribing Not sent due to no medication given 15:47:39 CDT CPT-G8445 E-Prescribing Not sent due to no medication given 16:50:03 CDT CPT-G8443 E-Prescribing Medication Sent 13:18:53 CDT CPT-G0439 Medicare Annual Wellness Visit 13:18:53 CDT CPT-G8443 E-Prescribing Medication Sent 16:44:49 CDT CPT-G8445 E-Prescribing Not sent due to no medication given 12:02:26 CDT CPT-G8443 E-Prescribing Medication Sent 16:20:59 CDT CPT-G8445 E-Prescribing Not sent due to no medication given 11:47:46 CDT CPT-G8443 E-Prescribing Medication Sent 15:01:40 CDT CPT-G8443 E-Prescribing Medication Sent 15:21:49 CDT CPT-G8445 E-Prescribing Not sent due to no medication given 11:46:40 [employer]ELOPER CPT-G8443 E-Prescribing Medication Sent 16:04:08 [employer] DEVELOPER CPT-G8443 E-Prescribing Medication Sent 12:47:46 [employer]ELOPER CPT-G8445 E-Prescribing Not sent due to no medication given 14:12:37 [employer]ELOPER CPT-G8445 E-Prescribing Not sent due to no medication given 12:46:38 CDT CPT-45754 Ear Wax Removal 12:46:38 CDT CPT-G8443 E-Prescribing Medication Sent 20:15:48 CDT CPT-G0438 Medicare Annual Wellness Visit Initial 11:42:23 CDT
--- OUTSIDE RECORDS SUMMARY | 2019-03-12 23:59 | XMS REPORT | Clinical Summary ---
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 PREDNISONE 35997454458 No Longer Active Autumn Barrientos SYNTHROID 0.075 MG TAB 1 PO daily LEVOTHYROXINE SODIUM 70320475805 Active Autumn Barrientos NYSTATIN SUSP 5 ML PO Q 6 HRS NYSTATIN SUSP 59002595706 No Longer Active Autumn Barrientos AMIODARONE HCL 400 MG TABS 1 PO every other day AMIODARONE HCL 38685855823 No Longer Active Autumn Barrientos PREDNISONE 10 MG TABS TAKE 4 TABS PO DAILY X 2 DAYS, THEN 3 PILLS PO DAILY X 2 DAYS, THEN 2 PILLS PO DAILY X 2 DAYS, THEN ONE PILL PO DAILY X 2 DAYS PREDNISONE 95840610191 No Longer Active Autumn Barrientos VITAMIN C 500 MG TABS 2 po daily ASCORBIC ACID 08540426526 No Longer Active Autumn Barrientos HYDROCODONE-ACETAMINOPHEN 5-325 MG TABS 1-2 PO Q4-6 hrs prn pain HYDROCODONE-ACETAMINOPHEN 80901762688 No Longer Active Autumn Barrientos ZOCOR 10 MG TAB 1 PO Daily SIMVASTATIN 10937042266 Active Autumnnicole Barrientos TRANSDERM-SCOP 1.5 MG PT72 1 patch behind ear and change every 3 days SCOPOLAMINE BASE 83808283904 No Longer Active Autumnnicole Barrientos LISINOPRIL 5 MG TABS 1 po daily LISINOPRIL 75961107833 Active Autumn Shira Barrientos DIGOXIN 0.25 MG TABS 1 PO daily DIGOXIN 69689155612 Active Autumn Shira Barrientos TOPROL XL 25 MG [id number] 2 PO daily METOPROLOL SUCCINATE 65258488605 Active Autumn Shira Barrientos VALIUM 2 MG TAB 1/2 - 1 PO BID prn muscle spasm DIAZEPAM 64292650000 No Longer Active Autumn Shira Barrientos KENALOG 0.1 % CREA apply to affected areas BID TRIAMCINOLONE ACETONIDE No Longer Active Autumnnicole Barrientos PREDNISONE 20 MG TAB 2 pills at once for 2 days then 1 pill daily for 5 days PREDNISONE 96930064838 No Longer Active Autumnnicole Barrientos DOXYCYCLINE HYCLATE 100 MG CAP 1 po BID DOXYCYCLINE HYCLATE 97662136254 No Longer Active Autumnnicole Barrientos CALMOSEPTINE 0.44-20.625 % OINT Apply to affected areas TID prn MENTHOL-ZINC OXIDE 35900679686 Active Autumnnicole Barrientos BIAXIN 500 MG TAB 1 PO BID CLARITHROMYCIN 78112074771 No Longer Active Autumn Barrientos PREDNISONE 20 MG TAB 2 pills at once for 3 days then 1 pill daily for 5 days PREDNISONE 09886333661 No Longer Active Prabha Carmona PREDNISONE 20 MG TAB 2 pills at once for 4 days then 1 pill daily for 4 days PREDNISONE 93361210413 No Longer Active Autumnnicole Barrientos LEVAQUIN 500 MG TAB 1 PO QD LEVOFLOXACIN 63243574229 No Longer Active Autumn Shira Barrientos TYLENOL 325 MG TABS 2 po q 4 hrs prn pain ACETAMINOPHEN 85815996004 No Longer Active Autumn Shira Barrientos CALMOSEPTINE 0.44-20.625 % OINT Apply to affected area QID prn MENTHOL-ZINC OXIDE 19336125478 No Longer Active Autumn Shira Barrientos JANE ALLERGY 180 MG TABS 1 PO daily FEXOFENADINE HCL 33660321540 No Longer Active Autumn Shira Barrientos VALIUM 2 MG TAB 1 PO QHS prn DIAZEPAM 42402223503 No Longer Active Autumn Shira Barrientos FLEXERIL 10 MG TAB 1 PO QHS prn CYCLOBENZAPRINE HCL 62521445870 No Longer Active Autumn Shira Barrientos ANUSOL-HC 2.5 % CREA apply to affected area on rectum TID prn. HYDROCORTISONE 92502094903 No Longer Active Autumn Shira Barrientos LOTRISONE 0.05-1 % CREAM apply to affected areas twice daily CLOTRIMAZOLE-BETAMETHASONE 08053549597 No Longer Active Autumn Shira Barrientos SINGULAIR 10 MG TABS 1 PO QHS MONTELUKAST SODIUM 34963930367 Active Autumn Shira Barrientos PREDNISONE 20 MG TAB 2 pills at once for 3 days then 1 pill daily for 5 days PREDNISONE 54190187193 No Longer Active Autumn Shira Barrientos FUROSEMIDE 40 MG TABS 1 PO every day FUROSEMIDE 44195588339 Active Autumn Shira Barrientos TAMIFLU 75 MG CAPS 1 PO DAILY X 10 DAYS OSELTAMIVIR PHOSPHATE 86507295699 No Longer Active Autumn Shira Barrientos PREDNISONE 20 MG TABS 1 PO DAILY x 7 days then DC PREDNISONE 67764025474 No Longer Active Autumn Shira Barrientos PREDNISONE 20 MG TAB 2 pills at once for 3 days then 1 pill daily for 3 days PREDNISONE 73180266061 No Longer Active Autumn Shira Barrientos DOXYCYCLINE HYCLATE 100 MG CAP 1 po BID DOXYCYCLINE HYCLATE 31879458377 No Longer Active Autumn Barrientos DOCUSATE SODIUM 60 MG/15ML SYRP 2 drops left ear let stand for 5 minutes then rinse. Use daily for 7 days then return to office for flushing of ears DOCUSATE SODIUM 38068732056 No Longer Active Autumn Barrientos PREDNISONE 20 MG TAB 2 pills at once for 3 days then 1 pill daily for 3 days PREDNISONE 66082559881 No Longer Active Autumn Barrientos DOXYCYCLINE HYCLATE 100 MG CAP 1 po BID DOXYCYCLINE HYCLATE 86905036993 No Longer Active Autumn Barrientos MOBIC 15 MG TABS 1 PO daily for knee pain MELOXICAM 62330091625 No Longer Active Autumn Barrientos VITAMIN D 1000 UNIT TABS 2 PO Daily CHOLECALCIFEROL 94177655747 Active Autumn Barrientos DILANTIN 100 MG CAPS 2 PO QAM and 3 PO QPM PHENYTOIN SODIUM EXTENDED 03319788075 Active Briana Alford PLAVIX 75 MG TABS 1 PO every other day CLOPIDOGREL BISULFATE 69586889423 No Longer Active Autumn Barrientos PREDNISONE 20 MG TAB 3 pills daily at once for 2 days, 2 pills daily at once for 2 days, 1 once daily for 2 days PREDNISONE 54973349820 No Longer Active Autumn Barrientos LEVAQUIN 500 MG TAB 1 PO QD LEVOFLOXACIN 99563124323 No Longer Active Autumn Barrientos ZOSTAVAX 43321 UNT/0.65ML SOLR 1 injection once to prevent Shingles ZOSTER VACCINE LIVE 95665014780 No Longer Active Autumn Barrientos SYMBICORT 160-4.5 MCG/ACT AERO 2 puffs twice daily BUDESONIDE-FORMOTEROL FUMARATE 37767428203 Active Briana Alford ATROVENT 0.06 % SOLN 2 puffs each nostril TID prn runny nose IPRATROPIUM BROMIDE 68652422720 No Longer Active Autumn Barrientos PREDNISONE 20 MG TAB 3 pills daily at once for 2 days, 2 pills daily at once for 2 days, 1 once daily for 2 days PREDNISONE 00277832341 No Longer Active Autumn Barrientos BIAXIN 500 MG TAB 1 PO BID CLARITHROMYCIN 21494382573 No Longer Active Autumn Barrientos MOBIC 15 MG TABS 1 po daily MELOXICAM 90876214448 No Longer Active Autumn Barrientos PREDNISONE 20 MG TAB 3 pills daily at once for 2 days, 2 pills daily at once for 2 days, 1 once daily for 2 days PREDNISONE 86249704860 No Longer Active Autumn Barrientos TESSALON 200 MG CAPS 1 PO TID prn cough BENZONATATE 97869681922 No Longer Active Autumn Barrientos AUGMENTIN 500-125 MG TAB 1 PO BID AMOXICILLIN-POT CLAVULANATE 48508079621 No Longer Active Autumn ROBLEDO'Mj NASAL SPRAY (DEXAMETHASONE, GENTAMICIN, SALINE) 2 puffs each nostril TID for [address] HANLEY NASAL SPRAY (DEXAMETHASONE, GENTAMICIN, SALINE) No Longer Active Autumn Barrientos LOTRISONE 0.05-1 % CREAM Apply BID to affected areas CLOTRIMAZOLE-BETAMETHASONE 38845153199 No Longer Active Autumn Barrientos ACYCLOVIR 800 MG TABS 1 PO five times a day for 10 days ACYCLOVIR 21398462534 No Longer Active Autumn Barrientos LORTAB 5 5-500 MG TABS 1 to 2 PO Q6hrs prn ACETAMINOPHEN-HYDROCODONE 17755158945 No Longer Active Autumn Shira Barrientos VALTREX 1 GM TAB 1 PO BID VALACYCLOVIR HCL 20374246520 No Longer Active Autumn Shira Barrientos NYSTATIN 462224 U/ML SUSP 5cc PO QID for 7 days NYSTATIN 73303271947 No Longer Active Autumn Shira Barrientos DIFLUCAN 100 MG TAB 1 PO daily for five days FLUCONAZOLE 75330483619 No Longer Active Autumn Shira Barrientos MIRALAX POWD 1 scoop in 4oz of water PO daily POLYETHYLENE GLYCOL 3350 38932957253 Active Autumn Shira Barrientos BIAXIN 500 MG TAB 1 PO BID CLARITHROMYCIN 87818411043 No Longer Active Autumn Shira Barrientos MUCINEX 600 MG [id number]-NVG 1 po BID prn as needed GUAIFENESIN 80231734362 Active Autumn Shira Barrientos PREDNISONE 10 MG TAB 1 PO daily PREDNISONE 08926569425 No Longer Active Autumn Shira Barrientos ALBUTEROL SULFATE 0.083 % NEBU SOLN 1 Treatment QID ALBUTEROL SULFATE 17713539698 Active Autumn Shira Barrientos DARVOCET-N 100 100-650 MG TAB 1 PO Q4hrs prn pain PROPOXYPHENE N-APAP 61363436364 No Longer Active Autumn Shira Barrientos ASPIRIN 81 MG TAB 1 PO daily ASPIRIN 61570890223 Active Autumn Shira Barrientos COREG 25 MG TABS 1 po BID CARVEDILOL 38145493357 No Longer Active Autumn Shira Barrientos ALDACTONE 25 MG TABS 1/2 po every other day SPIRONOLACTONE 23753850660 No Longer Active Autumn Shira Barrientos CHLORPHENIRAMINE MALEATE 4 MG TABS 1 PO Q6hrs prn for cold CHLORPHENIRAMINE MALEATE 20166826479 No Longer Active Autumn Shirajudy Barrientos PREDNISONE 20 MG TAB 2 pills at once for 3 days then 1 pill daily for 3 days PREDNISONE 22995848764 No Longer Active Autumn Shiragabriel Barrientos BIAXIN 500 MG TAB 1 PO BID CLARITHROMYCIN 04284709287 No Longer Active Autumn Shira Barrientos CHLORHEXIDINE GLUCONATE 0.12 % SOLN Rinse mouth 2 times a day CHLORHEXIDINE GLUCONATE 64695798984 Active Autumn Barrientos COUMADIN 5 MG TABS 1 po daily WARFARIN SODIUM 70931170491 No Longer Active Autumn Shira Barrientos PHENOBARBITAL 64.8 MG TABS 2 po at HS PHENOBARBITAL 62171921872 Active Briana Alford Immunizations Vaccine Administration Date [...] Range Description blood pressure, diastolic - 8462-4 60 mm[Hg] [...] Clinical Lists Update: CBC,CMP,CHOL,TRIG,TSH,FREE T4,DILANTIN,,FERRITIN,DIGOXIN - Chemistry Estimated Glomerular Filtration Rate (calc) 62 mL/min/1.73m2 albumin, serum 4.2 g/dL anion gap, serum 12 sodium, serum 136 mmol/L triglyceride, serum, fasting 180 mg/dL bilirubin, serum, total 0.3 mg/dL alanine aminotransferase (SGPT), serum 17 U/L aspartate aminotransferase (SGOT), serum 15 U/L protein, total, serum 7.1 g/dL potassium, serum 4.5 mmol/L thyroid stimulating hormone, serum 4.63 u[iU]/mL thyroxine, serum, free 0.78 ng/dL ferritin, serum 133.9 ng/mL creatinine, serum 1.2 mg/dL carbon dioxide, venous blood 30.0 mmol/L cholesterol, serum 216 mg/dL chloride, serum 99 mmol/L calcium, serum 9.1 mg/dL urea nitrogen, blood 22 mg/dL alkaline phosphatase, serum 144 U/L glucose, plasma fasting 103 mg/dL Clinical Lists Update: CBC,CMP,CHOL,TRIG,TSH,FREE T4,DILANTIN,,FERRITIN,DIGOXIN - Hematology mean corpuscular volume, RBC 101 fL leukocyte count, blood 7.7 10*3/mm3 erythrocyte (RBC) count 3.85 10*6/mm3 platelet count 214 10*3/mm3 hemoglobin, blood 12.3 g/dL hematocrit, blood 39 % red blood cell distribution width 15.8 % Clinical Lists Update: CBC,CMP,CHOL,TRIG,TSH,FREE T4,DILANTIN,,FERRITIN,DIGOXIN - Toxicology digoxin level, serum 0.8 ng/mL phenytoin level, serum 0.8 ug/mL Clinical Lists Update: CBC,CMP,Chol,Trig,TSH,Digoxin,Dilantin,Ferritin - Chemistry calcium, serum 8.7 mg/dL potassium, serum 4.8 mmol/L urea nitrogen, blood 15 mg/dL protein, total, serum 6.7 g/dL creatinine, serum 1.1 mg/dL chloride, serum 100 mmol/L ferritin, serum 66.7 ng/mL bilirubin, serum, total 0.3 mg/dL triglyceride, serum, fasting 121 mg/dL albumin, serum 3.8 g/dL sodium, serum 140 mmol/L anion gap, serum 14 glucose, plasma fasting 89 mg/dL Estimated Glomerular Filtration Rate (calc) 70 mL/min/1.73m2 carbon dioxide, venous blood 31.0 mmol/L aspartate aminotransferase (SGOT), serum 21 U/L alkaline phosphatase, serum 170 U/L alanine aminotransferase (SGPT), serum 45 U/L cholesterol, serum 146 mg/dL Clinical Lists Update: CBC,CMP,Chol,Trig,TSH,Digoxin,Dilantin,Ferritin - Hematology hematocrit, blood 39 % red blood cell distribution width 15.3 % hemoglobin, blood 12.2 g/dL leukocyte count, blood 5.8 10*3/mm3 platelet count 214 10*3/mm3 mean corpuscular volume, RBC 100 fL erythrocyte (RBC) count 3.93 10*6/mm3 Clinical Lists Update: CBC,CMP,Chol,Trig,TSH,Digoxin,Dilantin,Ferritin - Toxicology digoxin level, serum 0.9 ng/mL phenytoin level, serum 16.4 ug/mL Clinical Lists Update: CBC,CMP,Chol,Trig,TSH,Free T4,Ferritin, Digoxin, Dilantin - Chemistry ferritin, serum 93.9 ng/mL thyroxine, serum, free 0.88 ng/dL thyroid stimulating hormone, serum 6.49 u[iU]/mL potassium, serum 5.0 mmol/L protein, total, serum 7.2 g/dL aspartate aminotransferase (SGOT), serum 20 U/L alanine aminotransferase (SGPT), serum 23 U/L triglyceride, serum, fasting 219 mg/dL sodium, serum 137 mmol/L anion gap, serum 13 glucose, plasma fasting 92 mg/dL Estimated Glomerular Filtration Rate (calc) 78 mL/min/1.73m2 bilirubin, serum, total 0.4 mg/dL albumin, serum 4.4 g/dL alkaline phosphatase, serum 175 U/L urea nitrogen, blood 18 mg/dL calcium, serum 9.4 mg/dL chloride, serum 99 mmol/L cholesterol, serum 185 mg/dL carbon dioxide, venous blood 30.0 mmol/L creatinine, serum 1.0 mg/dL Clinical Lists Update: CBC,CMP,Chol,Trig,TSH,Free T4,Ferritin, Digoxin, Dilantin - Hematology mean corpuscular volume, RBC 99 fL erythrocyte (RBC) count 4.69 10*6/mm3 hematocrit, blood 46 % leukocyte count, blood 7.0 10*3/mm3 red blood cell distribution width 14.6 % platelet count 145 10*3/mm3 hemoglobin, blood 14.5 g/dL Clinical Lists Update: CBC,CMP,Chol,Trig,TSH,Free T4,Ferritin, Digoxin, Dilantin - Toxicology digoxin level, serum 1.3 ng/mL phenytoin level, serum 20.0 ug/mL Clinical Lists Update: CBC,CMP,Dilantin,Digoxin,Ferritin - Chemistry Estimated Glomerular Filtration Rate (calc) 100 mL/min/1.73m2 glucose, plasma fasting 104 mg/dL anion gap, serum 12 sodium, serum 142 mmol/L bilirubin, serum, total 0.4 mg/dL alanine aminotransferase (SGPT), serum 26 U/L aspartate aminotransferase (SGOT), serum 20 U/L protein, total, serum 6.9 g/dL potassium, serum 4.9 mmol/L ferritin, serum 74.6 ng/mL creatinine, serum 0.8 mg/dL carbon dioxide, venous blood 29.0 mmol/L chloride, serum 106 mmol/L calcium, serum 9.0 mg/dL urea nitrogen, blood 15 mg/dL alkaline phosphatase, serum 132 U/L albumin, serum 4.2 g/dL Clinical Lists Update: CBC,CMP,Dilantin,Digoxin,Ferritin - Hematology hemoglobin, blood 13.2 g/dL platelet count 154 10*3/mm3 hematocrit, blood 42 % erythrocyte (RBC) count 4.25 10*6/mm3 leukocyte count, blood 5.2 10*3/mm3 mean corpuscular volume, RBC 98 fL red blood cell distribution width 14.5 % Clinical Lists Update: CBC,CMP,Dilantin,Digoxin,Ferritin - Toxicology digoxin level, serum 1.1 ng/mL phenytoin level, serum 11.7 ug/mL Clinical Lists Update: CBC,CMP,UA IN PT LABS - Chemistry protein, total, serum 6.1 g/dL potassium, serum 4.0 mmol/L creatinine, serum 1.12 mg/dL carbon dioxide, venous blood 26 mmol/L chloride, serum 101 mmol/L calcium, serum 8.4 mg/dL urea nitrogen, blood 15 mg/dL alkaline phosphatase, serum 97 U/L albumin, serum 3.1 g/dL sodium, serum 133 mmol/L glucose, plasma fasting 148 mg/dL Estimated Glomerular Filtration Rate (calc) >60 mL/min/1.73m2 aspartate aminotransferase (SGOT), serum 15 U/L bilirubin, serum, total 0.3 mg/dL alanine aminotransferase (SGPT), serum 23 U/L Clinical Lists Update: CBC,CMP,UA IN PT LABS - Hematology platelet count 116 10*3/mm3 hemoglobin, blood 10.6 g/dL hematocrit, blood 32 % red blood cell distribution width 14.3 % mean corpuscular volume, RBC 94 fL leukocyte count, blood 5.7 10*3/mm3 erythrocyte (RBC) count 3.37 10*6/mm3 Clinical Lists Update: CBC,CMP,UA IN PT LABS - Urinalysis bilirubin, urine neg WBC urine on microscopy 25-50 {Cells}/[HPF] ketones, urine, by test strip neg appearance, urine Cloudy Yellow blood in urine (hemoglobin) by dipstick 3+ nitrite, urine, semiquantitative neg RBC urine by microscopy 2-5 mucus on urinalysis neg pH, urine, semiquantitative 5 hyaline casts, urine none /[LPF] specific gravity, urine 1.025 protein, urine, semiquantitative (dipstick) 3+ urobilinogen, urine, semiquantitative (dipstick) 1 glucose, urine, semiquantitative neg bacteria, urine microscopy moderate Clinical Lists Update: CMP,FLP,Digoxin [facility] - Chemistry anion gap, serum 9 HDL cholesterol, serum 31.0 mg/dL sodium, serum 137 mmol/L triglyceride, serum, fasting 160 mg/dL cholesterol/HDL ratio, serum, percent 5.7 glucose, plasma fasting 106 mg/dL Estimated Glomerular Filtration Rate (calc) 96 mL/min/1.73m2 albumin, serum 4.3 g/dL creatinine, serum 0.8 mg/dL carbon dioxide, venous blood 34.0 mmol/L cholesterol, serum 177 mg/dL chloride, serum 98 mmol/L calcium, serum 9.4 mg/dL urea nitrogen, blood 16 mg/dL alkaline phosphatase, serum 170 U/L alanine aminotransferase (SGPT), serum 23 U/L aspartate aminotransferase (SGOT), serum 17 U/L protein, total, serum 7.1 g/dL potassium, serum 4.4 mmol/L LDL cholesterol, serum 114 mg/dL bilirubin, serum, total 0.3 mg/dL Clinical Lists Update: CMP,FLP,Digoxin [facility] - Toxicology digoxin level, serum 1.1 ng/mL Clinical Lists Update: CMP,PT,INR,TSH,Digoxin [facility] - Chemistry thyroid stimulating hormone, serum 3.07 u[iU]/mL potassium, serum 4.7 mmol/L protein, total, serum 7.0 g/dL aspartate aminotransferase (SGOT), serum 24 U/L alanine aminotransferase (SGPT), serum 30 U/L bilirubin, serum, total 0.4 mg/dL anion gap, serum 12 glucose, plasma fasting 100 mg/dL Estimated Glomerular Filtration Rate (calc) 92 mL/min/1.73m2 sodium, serum 139 mmol/L albumin, serum 4.2 g/dL alkaline phosphatase, serum 127 U/L urea nitrogen, blood 15 mg/dL calcium, serum 9.3 mg/dL chloride, serum 100 mmol/L carbon dioxide, venous blood 32.0 mmol/L creatinine, serum 0.9 mg/dL Clinical Lists Update: CMP,PT,INR,TSH,Digoxin [facility] - Coagulation international normalized ratio (INR) 0.99 prothrombin time (patient) 12.60 s Clinical Lists Update: CMP,PT,INR,TSH,Digoxin [facility] - Toxicology digoxin level, serum 0.9 ng/mL Clinical Lists Update: UA - Urinalysis glucose, urine, semiquantitative neg pH, urine, semiquantitative 6.0 protein, urine, semiquantitative (dipstick) neg ketones, urine, by test strip neg nitrite, urine, semiquantitative neg specific gravity, urine <1.005 bilirubin, urine neg Office Visit: Dr Barrientos's Check Up: Established Patient Visit - Chemistry Estimated Glomerular Filtration Rate (calc) 106 mL/min/1.73m2 Estimated Glomerular Filtration Rate (calc) 75 mL/min/1.73m2 albumin, serum 4.3 g/dL albumin, serum 4.0 g/dL alkaline phosphatase, serum 139 U/L alkaline phosphatase, serum 138 U/L urea nitrogen, blood 22 mg/dL urea nitrogen, blood 14 mg/dL calcium, serum 9.1 mg/dL glucose, plasma fasting 147 mg/dL glucose, plasma fasting 94 mg/dL anion gap, serum 13 anion gap, serum 11 sodium, serum 135 mmol/L sodium, serum 139 mmol/L bilirubin, serum, total 0.4 mg/dL bilirubin, serum, total 0.4 mg/dL alanine aminotransferase (SGPT), serum 18 U/L alanine aminotransferase (SGPT), serum 16 U/L aspartate aminotransferase (SGOT), serum 14 U/L aspartate aminotransferase (SGOT), serum 15 U/L protein, total, serum 6.4 g/dL protein, total, serum 7.3 g/dL potassium, serum 4.1 mmol/L potassium, serum 4.3 mmol/L thyroid stimulating hormone, serum 3.13 u[iU]/mL thyroid stimulating hormone, serum 2.44 u[iU]/mL thyroxine, serum, free 0.87 ng/dL creatinine, serum 0.8 mg/dL creatinine, serum 1.0 mg/dL carbon dioxide, venous blood 29.0 mmol/L carbon dioxide, venous blood 31.0 mmol/L chloride, serum 97 mmol/L chloride, serum 101 mmol/L calcium, serum 8.8 mg/dL Office Visit: Dr Barrientos'mj Check Up: Established Patient Visit - Hematology mean corpuscular volume, RBC 99 fL red blood cell distribution width 15.1 % hematocrit, blood 43 % hemoglobin, blood 13.5 g/dL platelet count 143 10*3/mm3 erythrocyte (RBC) count 4.29 10*6/mm3 leukocyte count, blood 6.4 10*3/mm3 Office Visit: Dr Barrientos'mj Check Up: Established Patient Visit - Toxicology digoxin level, serum 0.8 ng/mL Encounters Code Encounter Date Provider Facility CPT-58919 Ofc Vst, Est Level III 13:33:45 CDT Autumn Barrientos DO FACP CPT-33078 Ofc Vst, Est Level III 17:12:01 CDT Autumn Barrientos DO, FACP CPT-20415 Ofc Vst, Est Level IV 21:01:56 CDT Autumn Shira Barrientos Autumn S Barrientos, DO, FACP CPT-95245 Ofc Vst, Est Level III 15:48:19 [employer] SERVICES COORDINATOR Autumn Becerril Barrientos, DO, FACP CPT-18282 Ofc Vst, Est Level IV 15:01:25 EARLY CHIL[employer]OOD SERVICES COORDINATOR Autumn Becerril Barrientos, DO, FACP CPT-79398 Ofc Vst, Est Level III 16:54:20 EARLY CHILDHOOD SERVICES COORDINATOR Autumn Becerril Barrientos, DO, FACP CPT-54160 Ofc Vst, Est Level III 19:49:29 CDT Autumnnicole Becerril Barrientos, DO, FACP CPT-75298 Ofc Vst, Est Level III 19:25:35 CDT Autumnnicole Becerril Barrientos, DO, FACP CPT-32668 Ofc Vst, Est Level III 19:01:53 CDT Autumnnicole Becerril Barrientos, DO, FACP CPT-25746 Ofc Vst, Est Level III 16:32:38 EARLY CHIL[employer]OOD SERVICES COORDINATOR Autumn Becerril Barrientos, DO, FACP CPT-02770 Ofc Vst, Est Level III 15:37:57 EARLY CHILDHOOD SERVICES COORDINATOR Autumn Barrientos [facility] OFFICE CPT-91426 Ofc Vst, Est Level III 12:03:55 EARLY CHILDHOOD SERVICES COORDINATOR Autumn Becerril Barrientos, DO, FACP CPT-37866 Ofc Vst, Est Level III 15:47:39 CDT Autumnnicole Becerril Barrientos, DO, FACP CPT-13108 Ofc Vst, Est Level III 16:50:03 CDT Autumnnicole Becerril Barrientos, DO, FACP CPT-55101 Ofc Vst, Est Level III 16:44:49 CDT Autumnnicole Becerril Barrientos, DO, FACP CPT-02021 Ofc Vst, Est Level III 12:02:26 CDT Autumnnicloe Becerril Barrientos, DO, FACP CPT-85803 Ofc Vst, Est Level III 16:20:59 CDT Autumn Shira Becerril Barrientos, DO, FACP CPT-92264 Ofc Vst, Est Level III 11:47:46 CDT Autumnnicole [facility] OFFICE CPT-86871 Ofc Vst, Est Level III 15:01:40 CDT Autumn Shira Becerril Barrientos, DO, FACP CPT-19539 Ofc Vst, Est Level III 15:21:49 CDT Autumn Shira Becerril Barrientos, DO, FACP CPT-18581 Ofc Vst, Est Level III 11:46:40 EARLY CHILDHOOD SERVICES COORDINATOR Autumn Becerril Barrientos, DO, FACP CPT-83528 Ofc Vst, Est Level III 16:04:08 EARLY CHILDHOOD SERVICES COORDINATOR Autumn Becerril Barrientos, DO, FACP CPT-88902 Ofc Vst, Est Level III 12:47:46 EARLY CHIL[employer]OOD SERVICES COORDINATOR Autumn Becerril Barrientos, DO, FACP CPT-79151 Ofc Vst, Est Level III 14:12:37 EARLY CHILDHOOD SERVICES COORDINATOR Autumn Becerril Barrientos, DO, FACP CPT-47636 Ofc Vst, Est Level III 20:15:48 CDT Autumn Shira Becerril Barrientos, DO, FACP CPT-91757 Ofc Vst, Est Level III 14:50:03 CDT Autumn Shira Becerril Barrientos, DO, FACP CPT-41564 Ofc Vst, Est Level IV 11:07:07 CDT Autumn Shira Becerril Barrientos, DO, FACP CPT-10067 Ofc Vst, Est Level IV 10:56:03 EARLY CHILDHOOD SERVICES COORDINATOR Autumn Becerril Barrientos, DO, FACP CPT-97838 Ofc Vst, Est Level III 10:34:42 EARLY CHILDHOOD SERVICES COORDINATOR Autumn Becerril Barrientos, DO, FACP CPT-78306 Ofc Vst, Est Level IV 11:18:10 EARLY CHILDHOOD SERVICES COORDINATOR Autumn Becerril Barrientos, DO, FACP CPT-02061 Ofc Vst, Est Level III 10:56:32 CDT Autumnnicole Velezner, DO, FACP CPT-16448 Ofc Vst, Est Level IV 11:11:23 CDT Autumnnicole Becerril Barrientos, DO, FACP CPT-91118 Ofc Vst, Est Level IV 11:24:11 CDT Autumnnicole Becerril Barrientos, DO, FACP CPT-17212 Ofc Vst, Est Level III 11:36:54 CDT Autumnnicole Velezner, DO, FACP CPT-17834 Ofc Vst, Est Level V 15:07:54 CDT Autumnnicole Becerril Barrientos, DO, FACP CPT-06704 Ofc Vst, Est Level III 16:05:11 CDT Autumn Becerril Barrientos, DO, FACP CPT-72198 Ofc Vst, Est Level IV 11:19:33 CDT Autumnnicole Becerril Barrientos, DO, FACP CPT-32773 Ofc Vst, Est Level III 11:16:56 EARLY CHIL[employer]OOD SERVICES COORDINATOR Autumn Becerril Barrientos, DO, FACP CPT-26979 Ofc Vst, Est Level IV 11:12:37 EARLY CHIL[employer]OOD SERVICES COORDINATOR Autumn Becerril Barrientos, DO, FACP CPT-59046 Ofc Vst, Est Level IV 15:21:42 EARLY CHILDHOOD SERVICES COORDINATOR Autumn Barrientos [facility] OFFICE CPT-26434 Ofc Vst, Est Level IV 10:49:32 EARLY CHIL[employer]OOD SERVICES COORDINATOR Autumn Becerril Barrientos, DO, FACP CPT-14623 Ofc Vst, Est Level IV 13:16:00 CDT Autumn Shira Becerril Barrientos, DO, FACP CPT-68295 Ofc Vst, Est Level IV 10:47:17 CDT Autumn Shira Becerril Barrientos, DO, FACP CPT-99670 Ofc Vst, Est Level IV 10:22:32 CDT Autumn Shira Becerril Barrientos, DO, FACP CPT-43529 Ofc Vst, Est Level III 10:35:26 CDT Autumn Shira Becerril Barrientos, DO, FACP CPT-52609 Ofc Vst, Est Level IV 11:29:20 CDT Autumn Shira Becerril Barrientos, DO, FACP CPT-08912 Ofc Vst, Est Level IV 13:52:31 CDT Autumnnicole Becerril Barrientos, DO, FACP CPT-34755 Ofc Vst, Est Level IV 11:41:20 CDT Autumn Shira Becerril Barrientos, DO, FACP CPT-54589 Ofc Vst, Est Level IV 09:38:08 EARLY CHILDHOOD SERVICES COORDINATOR Autumn Becerril Barrientos, DO, FACP CPT-95508 Ofc Vst, Est Level V 11:02:14 EARLY CHILDHOOD SERVICES COORDINATOR Autumn Becerril Barrientos, DO, FACP CPT-32066 Ofc Vst, Est Level V 10:30:31 EARLY CHILDHOOD SERVICES COORDINATOR Autumn Shira Leyva S Barrientos, DO, FACP CPT-09690 Ofc Vst, Est Level IV 11:14:50 EARLY CHILDHOOD SERVICES COORDINATOR Autumn Leyva S Barrientos, DO, FACP CPT-32090 Ofc Vst, Est Level V 11:06:34 EARLY CHILDHOOD SERVICES COORDINATOR Autumn Shira Leyva S Barrientos, DO, FACP CPT-11711 Ofc Vst, Est Level IV 11:30:08 EARLY CHILDHOOD SERVICES COORDINATOR Autumn Becerril Barrientos, DO, FACP CPT-62710 Ofc Vst, Est Level V 11:35:41 CDT Autumn Becerril Barrientos, DO, FACP CPT-33170 Ofc Vst, Est Level IV 10:09:46 CDT Autumn Becerril Barrientos, DO, FACP CPT-87626 Ofc Vst, Est Level V 13:55:27 CDT Autumn Becerril Iliana, DO, FACP CPT-47780 Ofc Vst, Est Level V 11:20:26 CDT Autumn Becerril Iliana DO, FACP CPT-81365 Ofc Vst, New Level IV 16:42:29 CDT Autumn Becerril Barrientos, DO, FACP Procedures Code Procedure Name Date Entry Date Standard Description CPT-G0439 Medicare Annual Wellness Visit 10:22:06 EARLY CHILDHOOD SERVICES COORDINATOR CPT-G0439 Medicare Annual Wellness Visit 15:50:07 CDT CPT-G8446 E-Prescribing not done due to controlled substance 19:01:53 CDT CPT-G8445 E-Prescribing Not sent due to no medication given 16:32:38 EARLY CHILDHOOD SERVICES COORDINATOR CPT-G8443 E-Prescribing Medication Sent 15:37:57 EARLY CHILDHOOD SERVICES COORDINATOR CPT-G8445 E-Prescribing Not sent due to no medication given 12:03:55 EARLY CHILDHOOD SERVICES COORDINATOR CPT-G8445 E-Prescribing Not sent due to no [...] sent due to no medication given 11:46:40 EARLY CHILDHOOD SERVICES COORDINATOR CPT-G8443 E-Prescribing Medication Sent 16:04:08 EARLY CHILDHOOD SERVICES COORDINATOR CPT-G8443 E-Prescribing Medication Sent 12:47:46 EARLY CHILDHOOD SERVICES COORDINATOR CPT-G8445 E-Prescribing Not sent due to no medication given 14:12:37 EARLY CHILDHOOD SERVICES COORDINATOR CPT-G8445 E-Prescribing Not sent due to no medication given 12:46:38 CDT CPT-32883 Ear Wax Removal 12:46:38 CDT CPT-G8443 E-Prescribing Medication Sent 20:15:48 CDT CPT-G0438 Medicare Annual Wellness Visit Initial 11:42:23 CDT
--- OUTSIDE RECORDS SUMMARY | 2019-03-13 00:01 | XMS REPORT | Clinical Summary ---
Author Author User, Tapjoy Autumn Barrientos DO, FACP Address Unknown Phone [...] Coronary atherosclerosis of unspecified type of vessel, duckwater or graft SEIZURE 780.3 Active Autumn Barrientos [...] Torticollis, unspecified HERPES ZOSTER 053.9 Resolved Autumn Brarientos Herpes zoster without mention of complication THRUSH [...] MG CAP 1 po BID DOXYCYCLINE HYCLATE 05842152612 No Longer Active Autumn Barrientos PREDNISONE 10 MG TAB 4 PO at one time once daily for 2 days, then 3 PO at one time once daily for 2 days, and 2 PO at one time once daily for 2 days, and then 1 PO daily for 2 days. PREDNISONE 22830495356 No Longer Active Autumn Barrientos SYNTHROID 0.075 MG TAB 1 PO daily LEVOTHYROXINE SODIUM 69050537507 Active Autumn Barrientos NYSTATIN SUSP 5 ML PO Q 6 HRS NYSTATIN SUSP 77010399875 No Longer Active Autumn Barrientos AMIODARONE HCL 400 MG TABS 1 PO every other day AMIODARONE HCL 13959993512 No Longer Active Autumn Barrientos PREDNISONE 10 MG TABS TAKE 4 TABS PO DAILY X 2 DAYS, THEN 3 PILLS PO DAILY X 2 DAYS, THEN 2 PILLS PO DAILY X 2 DAYS, THEN ONE PILL PO DAILY X 2 DAYS PREDNISONE 74707363136 No Longer Active Autumn Barrientos VITAMIN C 500 MG TABS 2 po daily ASCORBIC ACID 94094540099 No Longer Active Autumn Barrientos HYDROCODONE-ACETAMINOPHEN 5-325 MG TABS 1-2 PO Q4-6 hrs prn pain HYDROCODONE-ACETAMINOPHEN 46553993286 No Longer Active Autumn Barrientos ZOCOR 10 MG TAB 1 PO Daily SIMVASTATIN 72037774792 Active Autumnnicole Barrientos TRANSDERM-SCOP 1.5 MG PT72 1 patch behind ear and change every 3 days SCOPOLAMINE BASE 20469798076 No Longer Active Autumnnicole Barrientos LISINOPRIL 5 MG TABS 1 po daily LISINOPRIL 50841893167 Active Autumn Shira Barrientos DIGOXIN 0.25 MG TABS 1 PO daily DIGOXIN 73114190548 Active Autumn Shira Barrientos TOPROL XL 25 MG [id number] 2 PO daily METOPROLOL SUCCINATE 19243689234 Active Autumn Shira Barrientos VALIUM 2 MG TAB 1/2 - 1 PO BID prn muscle spasm DIAZEPAM 19559874675 No Longer Active Autumn Shira Barrientos KENALOG 0.1 % CREA apply to affected areas BID TRIAMCINOLONE ACETONIDE No Longer Active Autumnnicole Barrientos PREDNISONE 20 MG TAB 2 pills at once for 2 days then 1 pill daily for 5 days PREDNISONE 69861874043 No Longer Active Autumnnicole Barrientos DOXYCYCLINE HYCLATE 100 MG CAP 1 po BID DOXYCYCLINE HYCLATE 09247933789 No Longer Active Autumnnicole Barrientos CALMOSEPTINE 0.44-20.625 % OINT Apply to affected areas TID prn MENTHOL-ZINC OXIDE 32448055080 Active Autumnnicole Barrientos BIAXIN 500 MG TAB 1 PO BID CLARITHROMYCIN 30414031993 No Longer Active Autumn Barrientos PREDNISONE 20 MG TAB 2 pills at once for 3 days then 1 pill daily for 5 days PREDNISONE 61148690653 No Longer Active Prabha Carmona PREDNISONE 20 MG TAB 2 pills at once for 4 days then 1 pill daily for 4 days PREDNISONE 83747663598 No Longer Active Autumnnicole Barrientos LEVAQUIN 500 MG TAB 1 PO QD LEVOFLOXACIN 34363741327 No Longer Active Autumn Shira Barrientos TYLENOL 325 MG TABS 2 po q 4 hrs prn pain ACETAMINOPHEN 71513793285 No Longer Active Autumn Shira Barrientos CALMOSEPTINE 0.44-20.625 % OINT Apply to affected area QID prn MENTHOL-ZINC OXIDE 46526548511 No Longer Active Autumn Shira Barrientos JANE ALLERGY 180 MG TABS 1 PO daily FEXOFENADINE HCL 81090227427 No Longer Active Autumn Shira Barrientos VALIUM 2 MG TAB 1 PO QHS prn DIAZEPAM 76309994206 No Longer Active Autumn Shira Barrientos FLEXERIL 10 MG TAB 1 PO QHS prn CYCLOBENZAPRINE HCL 18383060877 No Longer Active Autumn Shira Barrientos ANUSOL-HC 2.5 % CREA apply to affected area on rectum TID prn. HYDROCORTISONE 96566708461 No Longer Active Autumn Shira Barrientos LOTRISONE 0.05-1 % CREAM apply to affected areas twice daily CLOTRIMAZOLE-BETAMETHASONE 26241489536 No Longer Active Autumn Shira Barrientos SINGULAIR 10 MG TABS 1 PO QHS MONTELUKAST SODIUM 04535555483 Active Autumn Shira Barrientos PREDNISONE 20 MG TAB 2 pills at once for 3 days then 1 pill daily for 5 days PREDNISONE 86853655651 No Longer Active Autumn Shira Barrientos FUROSEMIDE 40 MG TABS 1 PO every day FUROSEMIDE 65835229021 Active Autumn Shira Barrientos TAMIFLU 75 MG CAPS 1 PO DAILY X 10 DAYS OSELTAMIVIR PHOSPHATE 31769056308 No Longer Active Autumn Shira Barrientos PREDNISONE 20 MG TABS 1 PO DAILY x 7 days then DC PREDNISONE 92619891040 No Longer Active Autumn Shira Barrientos PREDNISONE 20 MG TAB 2 pills at once for 3 days then 1 pill daily for 3 days PREDNISONE 31501543205 No Longer Active Autumn Shira Barrientos DOXYCYCLINE HYCLATE 100 MG CAP 1 po BID DOXYCYCLINE HYCLATE 99356570418 No Longer Active Autumn Barrientos DOCUSATE SODIUM 60 MG/15ML SYRP 2 drops left ear let stand for 5 minutes then rinse. Use daily for 7 days then return to office for flushing of ears DOCUSATE SODIUM 89169433067 No Longer Active Autumn Barrientos PREDNISONE 20 MG TAB 2 pills at once for 3 days then 1 pill daily for 3 days PREDNISONE 69203138382 No Longer Active Autumn Barrientos DOXYCYCLINE HYCLATE 100 MG CAP 1 po BID DOXYCYCLINE HYCLATE 68406773157 No Longer Active Autumn Barrientos MOBIC 15 MG TABS 1 PO daily for knee pain MELOXICAM 34432742305 No Longer Active Autumn Barrientos VITAMIN D 1000 UNIT TABS 2 PO Daily CHOLECALCIFEROL 86676473278 Active Autumn Barrientos DILANTIN 100 MG CAPS 2 PO QAM and 3 PO QPM PHENYTOIN SODIUM EXTENDED 16410135884 Active Briana Alford PLAVIX 75 MG TABS 1 PO every other day CLOPIDOGREL BISULFATE 02098995953 No Longer Active Autumn Barrientos PREDNISONE 20 MG TAB 3 pills daily at once for 2 days, 2 pills daily at once for 2 days, 1 once daily for 2 days PREDNISONE 54781629341 No Longer Active Autumn Barrientos LEVAQUIN 500 MG TAB 1 PO QD LEVOFLOXACIN 47053667234 No Longer Active Autumn Barrientos ZOSTAVAX 10495 UNT/0.65ML SOLR 1 injection once to prevent Shingles ZOSTER VACCINE LIVE 44095582996 No Longer Active Autumn Barrientos SYMBICORT 160-4.5 MCG/ACT AERO 2 puffs twice daily BUDESONIDE-FORMOTEROL FUMARATE 81930721677 Active Briana Alford ATROVENT 0.06 % SOLN 2 puffs each nostril TID prn runny nose IPRATROPIUM BROMIDE 98149623114 No Longer Active Autumn Barrientos PREDNISONE 20 MG TAB 3 pills daily at once for 2 days, 2 pills daily at once for 2 days, 1 once daily for 2 days PREDNISONE 17438503189 No Longer Active Autumn Barrientos BIAXIN 500 MG TAB 1 PO BID CLARITHROMYCIN 56304587852 No Longer Active Autumn Barrientos MOBIC 15 MG TABS 1 po daily MELOXICAM 95102352768 No Longer Active Autumn Barrientos PREDNISONE 20 MG TAB 3 pills daily at once for 2 days, 2 pills daily at once for 2 days, 1 once daily for 2 days PREDNISONE 86155118564 No Longer Active Autumn Barrientos TESSALON 200 MG CAPS 1 PO TID prn cough BENZONATATE 83690956211 No Longer Active Autumn Barrientos AUGMENTIN 500-125 MG TAB 1 PO BID AMOXICILLIN-POT CLAVULANATE 78301734359 No Longer Active Autumn ROBLEDO'Mj NASAL SPRAY (DEXAMETHASONE, GENTAMICIN, SALINE) 2 puffs each nostril TID for [address] HANLEY NASAL SPRAY (DEXAMETHASONE, GENTAMICIN, SALINE) No Longer Active Autumn Barrientos LOTRISONE 0.05-1 % CREAM Apply BID to affected areas CLOTRIMAZOLE-BETAMETHASONE 73061968542 No Longer Active Autumn Barrientos ACYCLOVIR 800 MG TABS 1 PO five times a day for 10 days ACYCLOVIR 61415834572 No Longer Active Autumn Barrientos LORTAB 5 5-500 MG TABS 1 to 2 PO Q6hrs prn ACETAMINOPHEN-HYDROCODONE 68749274611 No Longer Active Autumn Shira Barrientos VALTREX 1 GM TAB 1 PO BID VALACYCLOVIR HCL 71654656685 No Longer Active Autumn Shira Barrientos NYSTATIN 852811 U/ML SUSP 5cc PO QID for 7 days NYSTATIN 73692335014 No Longer Active Autumn Shira Barrientos DIFLUCAN 100 MG TAB 1 PO daily for five days FLUCONAZOLE 95969502183 No Longer Active Autumn Shira Barrientos MIRALAX POWD 1 scoop in 4oz of water PO daily POLYETHYLENE GLYCOL 3350 06236895551 Active Autumn Shira Barrientos BIAXIN 500 MG TAB 1 PO BID CLARITHROMYCIN 90973845762 No Longer Active Autumn Shira Barrientos MUCINEX 600 MG [id number] 1 po BID prn as needed GUAIFENESIN 45377209929 Active Autumn Shira Barrientos PREDNISONE 10 MG TAB 1 PO daily PREDNISONE 14166262318 No Longer Active Autumn Shira Barrientos ALBUTEROL SULFATE 0.083 % NEBU SOLN 1 Treatment QID ALBUTEROL SULFATE 16673878317 Active Autumn Shira Barrientos DARVOCET-N 100 100-650 MG TAB 1 PO Q4hrs prn pain PROPOXYPHENE N-APAP 23866191138 No Longer Active Autumn Shira Barrientos ASPIRIN 81 MG TAB 1 PO daily ASPIRIN 70864323003 Active Autumn Shira Barrientos COREG 25 MG TABS 1 po BID CARVEDILOL 62440880855 No Longer Active Autumn Shira Barrientos ALDACTONE 25 MG TABS 1/2 po every other day SPIRONOLACTONE 32455541364 No Longer Active Autumn Shira Barrientos CHLORPHENIRAMINE MALEATE 4 MG TABS 1 PO Q6hrs prn for cold CHLORPHENIRAMINE MALEATE 26963935039 No Longer Active Autumn Shirajudy Barrientos PREDNISONE 20 MG TAB 2 pills at once for 3 days then 1 pill daily for 3 days PREDNISONE 96571159382 No Longer Active Autumn Shiragabriel Barrientos BIAXIN 500 MG TAB 1 PO BID CLARITHROMYCIN 95660469559 No Longer Active Autumn Shira Barrientos CHLORHEXIDINE GLUCONATE 0.12 % SOLN Rinse mouth 2 times a day CHLORHEXIDINE GLUCONATE 59230061313 Active Autumn Barrientos COUMADIN 5 MG TABS 1 po daily WARFARIN SODIUM 30733021049 No Longer Active Autumn Shira Barrientos PHENOBARBITAL 64.8 MG TABS 2 po at HS PHENOBARBITAL 62584951736 Active Briana Alford Immunizations Vaccine Administration Date [...] ng/mL Encounters Code Encounter Date Provider Facility CPT-59326 Ofc Vst, Est Level III 13:33:45 CDT Autumn Barrientos DO FACP CPT-43255 Ofc Vst, Est Level III 17:12:01 CDT Autumn Barrientos DO, FACP CPT-10784 Ofc Vst, Est Level IV 21:01:56 CDT Autumn Shira Barrientos Autumn S Barrientos, DO, FACP CPT-22442 Ofc Vst, Est Level III 15:48:19 TRAPEZE ARTIST Autumn Becerril Barrientos, DO, FACP CPT-11555 Ofc Vst, Est Level IV 15:01:25 TRAPEZE ARTIST Autumn Becerril Barrientos, DO, FACP CPT-27918 Ofc Vst, Est Level III 16:54:20 TRAPEZE ARTIST Autumn Becerril Barrientos, DO, FACP CPT-78034 Ofc Vst, Est Level III 19:49:29 CDT Autumnnicole Becerril Barrientos, DO, FACP CPT-87984 Ofc Vst, Est Level III 19:25:35 CDT Autumnnicole Becerril Barrientos, DO, FACP CPT-83674 Ofc Vst, Est Level III 19:01:53 CDT Auutmnnicole Becerril Barrientos, DO, FACP CPT-90350 Ofc Vst, Est Level III 16:32:38 TRAPEZE ARTIST Autumn Becerril Barrientos, DO, FACP CPT-64850 Ofc Vst, Est Level III 15:37:57 TRAPEZE ARTIST Autumn Barrientos AL OFFICE CPT-38060 Ofc Vst, Est Level III 12:03:55 TRAPEZE ARTIST Autumn Becerril Barrientos, DO, FACP CPT-68347 Ofc Vst, Est Level III 15:47:39 CDT Autumnnicole Becerril Barrientos, DO, FACP CPT-48830 Ofc Vst, Est Level III 16:50:03 CDT Autumnnicole Becerril Barrientos, DO, FACP CPT-70189 Ofc Vst, Est Level III 16:44:49 CDT Autumnnicole Becerril Barrientos, DO, FACP CPT-75509 Ofc Vst, Est Level III 12:02:26 CDT Autumnnicole Becerril Barrientos, DO, FACP CPT-34912 Ofc Vst, Est Level III 16:20:59 CDT Autumn Shira Becerril Barrientos, DO, FACP CPT-91579 Ofc Vst, Est Level III 11:47:46 CDT Autumnnicole R[facility] OFFICE CPT-97543 Ofc Vst, Est Level III 15:01:40 CDT Autumn Shira Becerril Barrientos, DO, FACP CPT-55933 Ofc Vst, Est Level III 15:21:49 CDT Autumn Shira Becerril Barrientos, DO, FACP CPT-96760 Ofc Vst, Est Level III 11:46:40 TRAPEZE ARTIST Autumn Becerril Barrientos, DO, FACP CPT-50867 Ofc Vst, Est Level III 16:04:08 TRAPEZE ARTIST Autumn Becerril Barrientos, DO, FACP CPT-96213 Ofc Vst, Est Level III 12:47:46 TRAPEZE ARTIST Autumn Becerril Barrientos, DO, FACP CPT-90979 Ofc Vst, Est Level III 14:12:37 TRAPEZE ARTIST Autumn Becerril Barrientos, DO, FACP CPT-15940 Ofc Vst, Est Level III 20:15:48 CDT Autumn Shira Becerril Barrientos, DO, FACP CPT-12151 Ofc Vst, Est Level III 14:50:03 CDT Autumn Shira Becerril Barrientos, DO, FACP CPT-97545 Ofc Vst, Est Level IV 11:07:07 CDT Autumn Shira Becerril Barrientos, DO, FACP CPT-80059 Ofc Vst, Est Level IV 10:56:03 TRAPEZE ARTIST Autumn Becerril Barrientos, DO, FACP CPT-04855 Ofc Vst, Est Level III 10:34:42 TRAPEZE ARTIST Autumn Becerril Barrientos, DO, FACP CPT-69985 Ofc Vst, Est Level IV 11:18:10 TRAPEZE ARTIST Autumn Becerril Barrientos, DO, FACP CPT-24376 Ofc Vst, Est Level III 10:56:32 CDT Autumnnicole Velezner, DO, FACP CPT-37432 Ofc Vst, Est Level IV 11:11:23 CDT Autumnnicole Becerril Barrientos, DO, FACP CPT-52425 Ofc Vst, Est Level IV 11:24:11 CDT Autumnnicole Becerril Barrientos, DO, FACP CPT-03087 Ofc Vst, Est Level III 11:36:54 CDT Autumnnicole Velezner, DO, FACP CPT-70968 Ofc Vst, Est Level V 15:07:54 CDT Autumnnicole Becerril Barrientos, DO, FACP CPT-18450 Ofc Vst, Est Level III 16:05:11 CDT Autumn Becerril Barrientos, DO, FACP CPT-11359 Ofc Vst, Est Level IV 11:19:33 CDT Autumnnicole Becerril Barrientos, DO, FACP CPT-85176 Ofc Vst, Est Level III 11:16:56 TRAPEZE ARTIST Autumn Becerril Barrientos, DO, FACP CPT-85921 Ofc Vst, Est Level IV 11:12:37 TRAPEZE ARTIST Autumn Becerril Barrientos, DO, FACP CPT-39926 Ofc Vst, Est Level IV 15:21:42 TRAPEZE ARTIST Autumn Barrientos AL OFFICE CPT-89867 Ofc Vst, Est Level IV 10:49:32 TRAPEZE ARTIST Autumn Becerril Barrientos, DO, FACP CPT-83184 Ofc Vst, Est Level IV 13:16:00 CDT Autumn Shira Becerril Barrientos, DO, FACP CPT-35208 Ofc Vst, Est Level IV 10:47:17 CDT Autumn Shira Becerril Barrientos, DO, FACP CPT-43323 Ofc Vst, Est Level IV 10:22:32 CDT Autumn Shira Becerril Barrientos, DO, FACP CPT-12474 Ofc Vst, Est Level III 10:35:26 CDT Autumn Shira Becerril Barreintos, DO, FACP CPT-27089 Ofc Vst, Est Level IV 11:29:20 CDT Autumn Shira Becerril Barrientos, DO, FACP CPT-34781 Ofc Vst, Est Level IV 13:52:31 CDT Autumnnicole Becerril Barrientos, DO, FACP CPT-13066 Ofc Vst, Est Level IV 11:41:20 CDT Autumn Shira Becerril Barrientos, DO, FACP CPT-23559 Ofc Vst, Est Level IV 09:38:08 TRAPEZE ARTIST Autumn Becerril Barrientos, DO, FACP CPT-02180 Ofc Vst, Est Level V 11:02:14 TRAPEZE ARTIST Autumn Becerril Barrientos, DO, FACP CPT-08620 Ofc Vst, Est Level V 10:30:31 TRAPEZE ARTIST Autumn Shira Leyva S Barrientos, DO, FACP CPT-98740 Ofc Vst, Est Level IV 11:14:50 TRAPEZE ARTIST Autumn Leyva S Barrientos, DO, FACP CPT-70146 Ofc Vst, Est Level V 11:06:34 TRAPEZE ARTIST Autumn Shira Leyva S Barrientos, DO, FACP CPT-84737 Ofc Vst, Est Level IV 11:30:08 TRAPEZE ARTIST Autumn Becerril Barrientos, DO, FACP CPT-62613 Ofc Vst, Est Level V 11:35:41 CDT Autumn Becerril Barrientos, DO, FACP CPT-14017 Ofc Vst, Est Level IV 10:09:46 CDT Autumn Becerril Barrientos, DO, FACP CPT-86435 Ofc Vst, Est Level V 13:55:27 CDT Autumn Becerril Iliana, DO, FACP CPT-66772 Ofc Vst, Est Level V 11:20:26 CDT Autumn Becerril Iliana DO, FACP CPT-89696 Ofc Vst, New Level IV 16:42:29 CDT Autumn Becerril Barrientos, DO, FACP Procedures Code Procedure Name Date Entry Date Standard Description CPT-G0439 Medicare Annual Wellness Visit 10:22:06 TRAPEZE ARTIST CPT-G0439 Medicare Annual Wellness Visit 15:50:07 CDT CPT-G8446 E-Prescribing not done due to controlled substance 19:01:53 CDT CPT-G8445 E-Prescribing Not sent due to no medication given 16:32:38 TRAPEZE ARTIST CPT-G8443 E-Prescribing Medication Sent 15:37:57 TRAPEZE ARTIST CPT-G8445 E-Prescribing Not sent due to no medication given 12:03:55 TRAPEZE ARTIST CPT-G8445 E-Prescribing Not sent due to no [...] sent due to no medication given 11:46:40 TRAPEZE ARTIST CPT-G8443 E-Prescribing Medication Sent 16:04:08 TRAPEZE ARTIST CPT-G8443 E-Prescribing Medication Sent 12:47:46 TRAPEZE ARTIST CPT-G8445 E-Prescribing Not sent due to no medication given 14:12:37 TRAPEZE ARTIST CPT-G8445 E-Prescribing Not sent due to no medication given 12:46:38 CDT CPT-90252 Ear Wax Removal 12:46:38 CDT CPT-G8443 E-Prescribing Medication Sent 20:15:48 CDT CPT-G0438 Medicare Annual Wellness Visit Initial 11:42:23 CDT
[2019-03-13] MEDS ORDERED: LACTATED RINGERS 1,000 ML IV ONE ×2 (00:02→00:49)
--- OUTSIDE RECORDS SUMMARY | 2019-03-13 00:03 | XMS REPORT | Clinical Summary ---
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 Autumn Barrientos [...] CHRN OBST W/(ACUTE) EXACERBATION 493.22 Resolved Autumn Barrinetos Chronic obstructive asthma, with (acute) exacerbation ASTHMA, [...] sphenoidal sinusitis FOOT PAIN, RIGHT 729.5 Resolved Autmun Barrientos Pain in limb COUGH 786.2 Resolved [...] Leukocytopenia, unspecified SICK SINUS SYNDROME 427.81 Active Autunm Barrientos Sinoatrial node dysfunction HAND PAIN, LEFT [...] Barrientos Torticollis, unspecified HYPOTHYROIDISM, PRIMARY 244.9 Active Auutmn Barrientos Unspecified hypothyroidism BRONCHITIS, ACUTE 466.0 Resolved Autumn Barrientos Acute bronchitis Medication List Medication Instructions Start Date Stop Date Generic Name NDC Status Provider Patient Instruction DOXYCYCLINE HYCLATE 100 MG CAP 1 po BID DOXYCYCLINE HYCLATE [id number] No Longer Active Autumn Barrientos PREDNISONE 10 MG TAB 4 PO at one time once daily for 2 days, then 3 PO at one time once daily for 2 days, and 2 PO at one time once daily for 2 days, and then 1 PO daily for 2 days. PREDNISONE [id number] No Longer Active Autumn Barrientos SYNTHROID 0.075 MG TAB 1 PO daily LEVOTHYROXINE SODIUM 38710967316 Active Autumn Barrientos NYSTATIN SUSP 5 ML PO Q 6 HRS NYSTATIN SUSP 91022600276 No Longer Active Autumn Barrientos AMIODARONE HCL 400 MG TABS 1 PO every other day AMIODARONE HCL 20668172658 No Longer Active Autumn Barrientos PREDNISONE 10 MG TABS TAKE 4 TABS PO DAILY X 2 DAYS, THEN 3 PILLS PO DAILY X 2 DAYS, THEN 2 PILLS PO DAILY X 2 DAYS, THEN ONE PILL PO DAILY X 2 DAYS PREDNISONE 03365062336 No Longer Active Autumn Barrientos VITAMIN C 500 MG TABS 2 po daily ASCORBIC ACID 82354934573 No Longer Active Autumn Barrientos HYDROCODONE-ACETAMINOPHEN 5-325 MG TABS 1-2 PO Q4-6 hrs prn pain HYDROCODONE-ACETAMINOPHEN 00145226311 No Longer Active Autumn Barrientos ZOCOR 10 MG TAB 1 PO Daily SIMVASTATIN 26634145666 Active Autmun Barrientos TRANSDERM-SCOP 1.5 MG PT72 1 patch behind ear and change every 3 days SCOPOLAMINE BASE 39830309141 No Longer Active Autumnnicole Barrientos LISINOPRIL 5 MG TABS 1 po daily LISINOPRIL 32841486177 Active Autumn Shira Barrientos DIGOXIN 0.25 MG TABS 1 PO daily DIGOXIN 02118397275 Active Autumn Shira Barrientos TOPROL XL 25 MG [id number]-HQU 2 PO daily METOPROLOL SUCCINATE 98934771689 Active Autumn Shira Barrientos VALIUM 2 MG TAB 1/2 - 1 PO BID prn muscle spasm DIAZEPAM 05496436116 No Longer Active Autumn Shira Barrientos KENALOG 0.1 % CREA apply to affected areas BID TRIAMCINOLONE ACETONIDE No Longer Active Autumnnicole Barrientos PREDNISONE 20 MG TAB 2 pills at once for 2 days then 1 pill daily for 5 days PREDNISONE 42554879101 No Longer Active Autumn Barrientos DOXYCYCLINE HYCLATE 100 MG CAP 1 po BID DOXYCYCLINE HYCLATE 97287935366 No Longer Active Autumnnicole Barrientos CALMOSEPTINE 0.44-20.625 % OINT Apply to affected areas TID prn MENTHOL-ZINC OXIDE 44807402402 Active Autumnnicole Barrientos BIAXIN 500 MG TAB 1 PO BID CLARITHROMYCIN 68732654473 No Longer Active Autumn Barrientos PREDNISONE 20 MG TAB 2 pills at once for 3 days then 1 pill daily for 5 days PREDNISONE 66893742390 No Longer Active Prabha Carmona PREDNISONE 20 MG TAB 2 pills at once for 4 days then 1 pill daily for 4 days PREDNISONE 33485245390 No Longer Active Autumnnicole Barrientos LEVAQUIN 500 MG TAB 1 PO QD LEVOFLOXACIN 15377497365 No Longer Active Autumnnicole Barrientos TYLENOL 325 MG TABS 2 po q 4 hrs prn pain ACETAMINOPHEN 04316788254 No Longer Active Autumn Shira Barrientos CALMOSEPTINE 0.44-20.625 % OINT Apply to affected area QID prn MENTHOL-ZINC OXIDE 50021610527 No Longer Active Autumn Shira Barrientos JANE ALLERGY 180 MG TABS 1 PO daily FEXOFENADINE HCL 33778023776 No Longer Active Autumn Shira Barrientos VALIUM 2 MG TAB 1 PO QHS prn DIAZEPAM 86177799846 No Longer Active Autumn Shira Barrientos FLEXERIL 10 MG TAB 1 PO QHS prn CYCLOBENZAPRINE HCL 99081783701 No Longer Active Autumn Shira Barrientos ANUSOL-HC 2.5 % CREA apply to affected area on rectum TID prn. HYDROCORTISONE 25705209875 No Longer Active Autumn Shira Barrientos LOTRISONE 0.05-1 % CREAM apply to affected areas twice daily CLOTRIMAZOLE-BETAMETHASONE 58878575915 No Longer Active Autumn Shira Barrientos SINGULAIR 10 MG TABS 1 PO QHS MONTELUKAST SODIUM 78935170191 Active Autumn Shira Barrientos PREDNISONE 20 MG TAB 2 pills at once for 3 days then 1 pill daily for 5 days PREDNISONE 15405285731 No Longer Active Autumn Shira Barrientos FUROSEMIDE 40 MG TABS 1 PO every day FUROSEMIDE 86770938249 Active Autumn Shira Barrientos TAMIFLU 75 MG CAPS 1 PO DAILY X 10 DAYS OSELTAMIVIR PHOSPHATE 91847648895 No Longer Active Autumn Shira Barrientos PREDNISONE 20 MG TABS 1 PO DAILY x 7 days then DC PREDNISONE 90532466219 No Longer Active Autumn Shira Barrientos PREDNISONE 20 MG TAB 2 pills at once for 3 days then 1 pill daily for 3 days PREDNISONE 65147007532 No Longer Active Autumn Shira Barrientos DOXYCYCLINE HYCLATE 100 MG CAP 1 po BID DOXYCYCLINE HYCLATE 71123995937 No Longer Active Autumn Barrientos DOCUSATE SODIUM 60 MG/15ML SYRP 2 drops left ear let stand for 5 minutes then rinse. Use daily for 7 days then return to office for flushing of ears DOCUSATE SODIUM 13299589006 No Longer Active Autumn Barrientos PREDNISONE 20 MG TAB 2 pills at once for 3 days then 1 pill daily for 3 days PREDNISONE 67072101097 No Longer Active Autumn Barrientos DOXYCYCLINE HYCLATE 100 MG CAP 1 po BID DOXYCYCLINE HYCLATE 11749456208 No Longer Active Autumn Barrientos MOBIC 15 MG TABS 1 PO daily for knee pain MELOXICAM 27451837839 No Longer Active Autumn Barrientos VITAMIN D 1000 UNIT TABS 2 PO Daily CHOLECALCIFEROL 46776817465 Active Autumn Barrientos DILANTIN 100 MG CAPS 2 PO QAM and 3 PO QPM PHENYTOIN SODIUM EXTENDED 60838759402 Active Briana Alford PLAVIX 75 MG TABS 1 PO every other day CLOPIDOGREL BISULFATE 73457183848 No Longer Active Autumn Barrientos PREDNISONE 20 MG TAB 3 pills daily at once for 2 days, 2 pills daily at once for 2 days, 1 once daily for 2 days PREDNISONE 10363281770 No Longer Active Autumn Barrientos LEVAQUIN 500 MG TAB 1 PO QD LEVOFLOXACIN 24244754403 No Longer Active Autumn Barrientos ZOSTAVAX 64943 UNT/0.65ML SOLR 1 injection once to prevent Shingles ZOSTER VACCINE LIVE 32393913290 No Longer Active Autumn Barrientos SYMBICORT 160-4.5 MCG/ACT AERO 2 puffs twice daily BUDESONIDE-FORMOTEROL FUMARATE 04269096602 Active Briana Alford ATROVENT 0.06 % SOLN 2 puffs each nostril TID prn runny nose IPRATROPIUM BROMIDE 70657984924 No Longer Active Autumn Barrientos PREDNISONE 20 MG TAB 3 pills daily at once for 2 days, 2 pills daily at once for 2 days, 1 once daily for 2 days PREDNISONE 78621258585 No Longer Active Autumn Barrientos BIAXIN 500 MG TAB 1 PO BID CLARITHROMYCIN 75115378843 No Longer Active Autumn Barrientos MOBIC 15 MG TABS 1 po daily MELOXICAM 24813541523 No Longer Active Autumn Barrientos PREDNISONE 20 MG TAB 3 pills daily at once for 2 days, 2 pills daily at once for 2 days, 1 once daily for 2 days PREDNISONE 03155886348 No Longer Active Autumn Barrientos TESSALON 200 MG CAPS 1 PO TID prn cough BENZONATATE 40614928003 No Longer Active Autumn Barrientos AUGMENTIN 500-125 MG TAB 1 PO BID AMOXICILLIN-POT CLAVULANATE 37156164855 No Longer Active Autumn ROBLEDO'Mj NASAL SPRAY (DEXAMETHASONE, GENTAMICIN, SALINE) 2 puffs each nostril TID for [address] HANLEY NASAL SPRAY (DEXAMETHASONE, GENTAMICIN, SALINE) No Longer Active Autumn Barrientos LOTRISONE 0.05-1 % CREAM Apply BID to affected areas CLOTRIMAZOLE-BETAMETHASONE 76927293187 No Longer Active Autumn Barrientos ACYCLOVIR 800 MG TABS 1 PO five times a day for 10 days ACYCLOVIR 02226192085 No Longer Active Autumn Barrientos LORTAB 5 5-500 MG TABS 1 to 2 PO Q6hrs prn ACETAMINOPHEN-HYDROCODONE 28343672140 No Longer Active Autumn Shira Barrientos VALTREX 1 GM TAB 1 PO BID VALACYCLOVIR HCL 06725791183 No Longer Active Autumn Shira Barrientos NYSTATIN 191755 U/ML SUSP 5cc PO QID for 7 days NYSTATIN 06658982025 No Longer Active Autumn Shira Barrientos DIFLUCAN 100 MG TAB 1 PO daily for five days FLUCONAZOLE 52784448809 No Longer Active Autumn Shira Barrientos MIRALAX POWD 1 scoop in 4oz of water PO daily POLYETHYLENE GLYCOL 3350 64315693677 Active Autumn Shira Barrientos BIAXIN 500 MG TAB 1 PO BID CLARITHROMYCIN 40638521901 No Longer Active Autumn Shira Barrientos MUCINEX 600 MG NM01M-ZWO 1 po BID prn as needed GUAIFENESIN 78421990905 Active Autumn Shira Barrientos PREDNISONE 10 MG TAB 1 PO daily PREDNISONE 86312316941 No Longer Active Autumn Shira Barrientos ALBUTEROL SULFATE 0.083 % NEBU SOLN 1 Treatment QID ALBUTEROL SULFATE 15440406657 Active Autumn Shira Barrientos DARVOCET-N 100 100-650 MG TAB 1 PO Q4hrs prn pain PROPOXYPHENE N-APAP 48209561234 No Longer Active Autumn Shira Barrientos ASPIRIN 81 MG TAB 1 PO daily ASPIRIN 29637622706 Active Autumn Shira Barrientos COREG 25 MG TABS 1 po BID CARVEDILOL 99657452570 No Longer Active Autumn Shira Barrientos ALDACTONE 25 MG TABS 1/2 po every other day SPIRONOLACTONE 18504849782 No Longer Active Autumn Shira Barrientos CHLORPHENIRAMINE MALEATE 4 MG TABS 1 PO Q6hrs prn for cold CHLORPHENIRAMINE MALEATE 99677597848 No Longer Active Autumn Shirajudy Barrientos PREDNISONE 20 MG TAB 2 pills at once for 3 days then 1 pill daily for 3 days PREDNISONE 20648304311 No Longer Active Autumn Barrientos BIAXIN 500 MG TAB 1 PO BID CLARITHROMYCIN 37358822177 No Longer Active Autumn Shira Barrientos CHLORHEXIDINE GLUCONATE 0.12 % SOLN Rinse mouth 2 times a day CHLORHEXIDINE GLUCONATE 97643110608 Active Autumn Barrientos COUMADIN 5 MG TABS 1 po daily WARFARIN SODIUM 94619052761 No Longer Active Autumn Shira Iliana PHENOBARBITAL 64.8 MG TABS 2 po at HS PHENOBARBITAL 70832601745 Active Briana Alford Immunizations Vaccine Administration Date [...] ng/mL Encounters Code Encounter Date Provider Facility CPT-53588 Ofc Vst, Est Level III 13:33:45 CDT Autumn Barrientos DO, FACP CPT-86618 Ofc Vst, Est Level III 17:12:01 CDT Autumn Barrientos DO, FACP CPT-89993 Ofc Vst, Est Level IV 21:01:56 CDT Autumn Barrientos DO, FACP CPT-40335 Ofc Vst, Est Level III 15:48:19 COLLISION REPAIR TECHNICIAN Autumn Becerril Barrientos, DO, FACP CPT-91264 Ofc Vst, Est Level IV 15:01:25 COLLISION REPAIR TECHNICIAN Autumn Becerril Barrientos, DO, FACP CPT-36544 Ofc Vst, Est Level III 16:54:20 COLLISION REPAIR TECHNICIAN Autumn Becerril Barrientos, DO, FACP CPT-43133 Ofc Vst, Est Level III 19:49:29 CDT Autumn Shira Becerril Barrientos, DO, FACP CPT-92339 Ofc Vst, Est Level III 19:25:35 CDT Autumn Shira Becerril Barrientos, DO, FACP CPT-05287 Ofc Vst, Est Level III 19:01:53 CDT Autumnnicole Becerril Barrientos, DO, FACP CPT-06319 Ofc Vst, Est Level III 16:32:38 COLLISION REPAIR TECHNICIAN Autumn Becerril Barrientos, DO, FACP CPT-77594 Ofc Vst, Est Level III 15:37:57 COLLISION REPAIR TECHNICIAN Autumn Barrientos [facility] CPT-39579 Ofc Vst, Est Level III 12:03:55 COLLISION REPAIR TECHNICIAN Autumn Becerril Barrientos, DO, FACP CPT-70715 Ofc Vst, Est Level III 15:47:39 CDT Autumn Shira Becerril Barrientos, DO, FACP CPT-53105 Ofc Vst, Est Level III 16:50:03 CDT Autumn Shira Loyolai Mj Barrientos, DO, FACP CPT-45754 Ofc Vst, Est Level III 16:44:49 CDT Autumnnicole Becerril Barrientos, DO, FACP CPT-29428 Ofc Vst, Est Level III 12:02:26 CDT Autumnnicole Becerril Barrientos, DO, FACP CPT-48145 Ofc Vst, Est Level III 16:20:59 CDT Autumn Shira Becerril Barrientos, DO, FACP CPT-23058 Ofc Vst, Est Level III 11:47:46 CDT Autumnnicole [facility] OFFICE CPT-54036 Ofc Vst, Est Level III 15:01:40 CDT Autumn Shira Becerril Barrientos, DO, FACP CPT-79099 Ofc Vst, Est Level III 15:21:49 CDT Autumn Shira Becerril Barrientos, DO, FACP CPT-85336 Ofc Vst, Est Level III 11:46:40 COLLISION REPAIR TECHNICIAN Autumn Becerril Barrientos, DO, FACP CPT-29463 Ofc Vst, Est Level III 16:04:08 COLLISION REPAIR TECHNICIAN Autumn Becerril Barrientos, DO, FACP CPT-95060 Ofc Vst, Est Level III 12:47:46 COLLISION REPAIR TECHNICIAN Autumn Becerril Barrientos, DO, FACP CPT-58379 Ofc Vst, Est Level III 14:12:37 COLLISION REPAIR TECHNICIAN Autumn Becerril Barrientos, DO, FACP CPT-85108 Ofc Vst, Est Level III 20:15:48 CDT Autumnnicole Becerril Barrientos, DO, FACP CPT-48237 Ofc Vst, Est Level III 14:50:03 CDT Autumn Shira Becerril Barrientos, DO, FACP CPT-06505 Ofc Vst, Est Level IV 11:07:07 CDT Autumn Shira Becerril Barrientos, DO, FACP CPT-00037 Ofc Vst, Est Level IV 10:56:03 COLLISION REPAIR TECHNICIAN Autumn Becerril Barrientos, DO, FACP CPT-11464 Ofc Vst, Est Level III 10:34:42 COLLISION REPAIR TECHNICIAN Autumn Becerril Barrientos, DO, FACP CPT-72304 Ofc Vst, Est Level IV 11:18:10 COLLISION REPAIR TECHNICIAN Autumn Becerril Barrientos, DO, FACP CPT-02539 Ofc Vst, Est Level III 10:56:32 CDT Autumnnicole Becerril Barrientos, DO, FACP CPT-23029 Ofc Vst, Est Level IV 11:11:23 CDT Autumn Shira Becerril Barrientos, DO, FACP CPT-33242 Ofc Vst, Est Level IV 11:24:11 CDT Autumnnicole Becerril Barrientos, DO, FACP CPT-39531 Ofc Vst, Est Level III 11:36:54 CDT Autumnnicole Becerril Barrientos, DO, FACP CPT-27305 Ofc Vst, Est Level V 15:07:54 CDT Autumnnicole Becerril Barrientos, DO, FACP CPT-97985 Ofc Vst, Est Level III 16:05:11 CDT Autumn Becerril Barrientos, DO, FACP CPT-60551 Ofc Vst, Est Level IV 11:19:33 CDT Autumnnicole Becerril Barrientos, DO, FACP CPT-42426 Ofc Vst, Est Level III 11:16:56 COLLISION REPAIR TECHNICIAN Autumn Becerril Barrientos, DO, FACP CPT-88262 Ofc Vst, Est Level IV 11:12:37 COLLISION REPAIR TECHNICIAN Autumn Becerril Barrientos, DO, FACP CPT-39643 Ofc Vst, Est Level IV 15:21:42 COLLISION REPAIR TECHNICIAN Autumn Barrientos [facility] OFFICE CPT-21709 Ofc Vst, Est Level IV 10:49:32 COLLISION REPAIR TECHNICIAN Autumn Becerril Barrientos, DO, FACP CPT-92620 Ofc Vst, Est Level IV 13:16:00 CDT Autumn Shira Becerril Barrientos, DO, FACP CPT-22572 Ofc Vst, Est Level IV 10:47:17 CDT Autumn Shira Becerril Barrientos, DO, FACP CPT-43808 Ofc Vst, Est Level IV 10:22:32 CDT Autumn Shira Becerril Barrientos, DO, FACP CPT-80867 Ofc Vst, Est Level III 10:35:26 CDT Autumn Shira Becerril Barrientos, DO, FACP CPT-37571 Ofc Vst, Est Level IV 11:29:20 CDT Autumn Shira Becerril Barrientos, DO, FACP CPT-56804 Ofc Vst, Est Level IV 13:52:31 CDT Autumnnicole Becerril Barrientos, DO, FACP CPT-53803 Ofc Vst, Est Level IV 11:41:20 CDT Autumn Shira Becerril Barrientos, DO, FACP CPT-89784 Ofc Vst, Est Level IV 09:38:08 COLLISION REPAIR TECHNICIAN Autumn Becerril Barrientos, DO, FACP CPT-61370 Ofc Vst, Est Level V 11:02:14 COLLISION REPAIR TECHNICIAN Autumn Becerril Barrientos, DO, FACP CPT-47348 Ofc Vst, Est Level V 10:30:31 COLLISION REPAIR TECHNICIAN Autumn Shira Leyva S Barrientos, DO, FACP CPT-49522 Ofc Vst, Est Level IV 11:14:50 COLLISION REPAIR TECHNICIAN Autumn Leyva S Barrientos, DO, FACP CPT-41826 Ofc Vst, Est Level V 11:06:34 COLLISION REPAIR TECHNICIAN Autumn Shira Leyva S Barrientos, DO, FACP CPT-74780 Ofc Vst, Est Level IV 11:30:08 COLLISION REPAIR TECHNICIAN Autumn Becerril Barrientos, DO, FACP CPT-06502 Ofc Vst, Est Level V 11:35:41 CDT Autumn Becerril Barrientos, DO, FACP CPT-22548 Ofc Vst, Est Level IV 10:09:46 CDT Autumn Becerril Barrientos, DO, FACP CPT-53390 Ofc Vst, Est Level V 13:55:27 CDT Autumn Becerril Barrientos, DO, FACP CPT-86453 Ofc Vst, Est Level V 11:20:26 CDT Autumn Becerril Barrientos, DO, FACP CPT-83615 Ofc Vst, New Level IV 16:42:29 CDT Autumn Becerril Barrientos, DO, FACP Procedures Code Procedure Name Date Entry Date Standard Description CPT-G0439 Medicare Annual Wellness Visit 10:22:06 COLLISION REPAIR TECHNICIAN CPT-G0439 Medicare Annual Wellness Visit 15:50:07 CDT CPT-G8446 E-Prescribing not done due to controlled substance 19:01:53 CDT CPT-G8445 E-Prescribing Not sent due to no medication given 16:32:38 COLLISION REPAIR TECHNICIAN CPT-G8443 E-Prescribing Medication Sent 15:37:57 COLLISION REPAIR TECHNICIAN CPT-G8445 E-Prescribing Not sent due to no medication given 12:03:55 COLLISION REPAIR TECHNICIAN CPT-G8445 E-Prescribing Not sent due to no [...] sent due to no medication given 11:46:40 COLLISION REPAIR TECHNICIAN CPT-G8443 E-Prescribing Medication Sent 16:04:08 COLLISION REPAIR TECHNICIAN CPT-G8443 E-Prescribing Medication Sent 12:47:46 COLLISION REPAIR TECHNICIAN CPT-G8445 E-Prescribing Not sent due to no medication given 14:12:37 COLLISION REPAIR TECHNICIAN CPT-G8445 E-Prescribing Not sent due to no medication given 12:46:38 CDT CPT-38995 Ear Wax Removal 12:46:38 CDT CPT-G8443 E-Prescribing Medication Sent 20:15:48 CDT CPT-G0438 Medicare Annual Wellness Visit Initial 11:42:23 CDT
--- OUTSIDE RECORDS SUMMARY | 2019-03-13 00:04 | XMS REPORT | Clinical Summary ---
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 PREDNISONE 52529472702 No Longer Active Autumn Barrientos SYNTHROID 0.075 MG TAB 1 PO daily LEVOTHYROXINE SODIUM 97640068589 Active Autumn Barrientos NYSTATIN SUSP 5 ML PO Q 6 HRS NYSTATIN SUSP 26078311749 No Longer Active Autumn Barrientos AMIODARONE HCL 400 MG TABS 1 PO every other day AMIODARONE HCL 14964434171 No Longer Active Autumn Barrientos PREDNISONE 10 MG TABS TAKE 4 TABS PO DAILY X 2 DAYS, THEN 3 PILLS PO DAILY X 2 DAYS, THEN 2 PILLS PO DAILY X 2 DAYS, THEN ONE PILL PO DAILY X 2 DAYS PREDNISONE 68765116606 No Longer Active Autumn Barrientos VITAMIN C 500 MG TABS 2 po daily ASCORBIC ACID 62574299787 No Longer Active Autumn Barrientos HYDROCODONE-ACETAMINOPHEN 5-325 MG TABS 1-2 PO Q4-6 hrs prn pain HYDROCODONE-ACETAMINOPHEN 69788259224 No Longer Active Autumn Barrientos ZOCOR 10 MG TAB 1 PO Daily SIMVASTATIN 78335397100 Active Autumn Barrientos TRANSDERM-SCOP 1.5 MG PT72 1 patch behind ear and change every 3 days SCOPOLAMINE BASE 18290714087 No Longer Active Autumn Shira Barrientos LISINOPRIL 5 MG TABS 1 po daily LISINOPRIL 40639518134 Active Briana Alford DIGOXIN 0.25 MG TABS 1 PO daily DIGOXIN 20489833819 Active Briana Alford TOPROL XL 25 MG [id number] 2 PO daily METOPROLOL SUCCINATE 38404027914 Active Autumn Shira Barrientos VALIUM 2 MG TAB 1/2 - 1 PO BID prn muscle spasm DIAZEPAM 87370541172 No Longer Active Autumn Shira Barrientos KENALOG 0.1 % CREA apply to affected areas BID TRIAMCINOLONE ACETONIDE No Longer Active Autumn Shira Barrientos PREDNISONE 20 MG TAB 2 pills at once for 2 days then 1 pill daily for 5 days PREDNISONE 12795896558 No Longer Active Autumnnicole Barrientos DOXYCYCLINE HYCLATE 100 MG CAP 1 po BID DOXYCYCLINE HYCLATE 94761890268 No Longer Active Autumn Shira Barrientos CALMOSEPTINE 0.44-20.625 % OINT Apply to affected areas TID prn MENTHOL-ZINC OXIDE 82232278569 Active Autumn Shira Barrientos BIAXIN 500 MG TAB 1 PO BID CLARITHROMYCIN 17237287786 No Longer Active Autumnnicole Barrientos PREDNISONE 20 MG TAB 2 pills at once for 3 days then 1 pill daily for 5 days PREDNISONE 68596477520 No Longer Active Prabha Carmona PREDNISONE 20 MG TAB 2 pills at once for 4 days then 1 pill daily for 4 days PREDNISONE 43621621787 No Longer Active Autumn Shira Barrientos LEVAQUIN 500 MG TAB 1 PO QD LEVOFLOXACIN 59745211972 No Longer Active Autumn Shira Barrientos TYLENOL 325 MG TABS 2 po q 4 hrs prn pain ACETAMINOPHEN 22466332686 No Longer Active Autumn Shira Barrientos CALMOSEPTINE 0.44-20.625 % OINT Apply to affected area QID prn MENTHOL-ZINC OXIDE 83631856644 No Longer Active Autumn Shira Barrientos JANE ALLERGY 180 MG TABS 1 PO daily FEXOFENADINE HCL 38964405089 No Longer Active Autumn Shira Barrientos VALIUM 2 MG TAB 1 PO QHS prn DIAZEPAM 06735979545 No Longer Active Autumn Shira Barrientos FLEXERIL 10 MG TAB 1 PO QHS prn CYCLOBENZAPRINE HCL 33766911651 No Longer Active Autumn Shira Barrientos ANUSOL-HC 2.5 % CREA apply to affected area on rectum TID prn. HYDROCORTISONE 03991726523 No Longer Active Autumn Shira Barrientos LOTRISONE 0.05-1 % CREAM apply to affected areas twice daily CLOTRIMAZOLE-BETAMETHASONE 00773730909 No Longer Active Autumn Shira Barrientos SINGULAIR 10 MG TABS 1 PO QHS MONTELUKAST SODIUM 27459509710 Active Briana Alford PREDNISONE 20 MG TAB 2 pills at once for 3 days then 1 pill daily for 5 days PREDNISONE 35694797315 No Longer Active Autumnnicole Barrientos FUROSEMIDE 40 MG TABS 1 PO every day FUROSEMIDE 93126159299 Active Briana Alford TAMIFLU 75 MG CAPS 1 PO DAILY X 10 DAYS OSELTAMIVIR PHOSPHATE 51448728387 No Longer Active Autumn Shira Barrientos PREDNISONE 20 MG TABS 1 PO DAILY x 7 days then DC PREDNISONE 55422024952 No Longer Active Autumn Shira Barrientos PREDNISONE 20 MG TAB 2 pills at once for 3 days then 1 pill daily for 3 days PREDNISONE 19454487544 No Longer Active Autumn Shira Barrientos DOXYCYCLINE HYCLATE 100 MG CAP 1 po BID DOXYCYCLINE HYCLATE 85333620572 No Longer Active Autumn Barrientos DOCUSATE SODIUM 60 MG/15ML SYRP 2 drops left ear let stand for 5 minutes then rinse. Use daily for 7 days then return to office for flushing of ears DOCUSATE SODIUM 04052256104 No Longer Active Autumnnicole Barrientos PREDNISONE 20 MG TAB 2 pills at once for 3 days then 1 pill daily for 3 days PREDNISONE 29892657035 No Longer Active Autumnnicole Barrientos DOXYCYCLINE HYCLATE 100 MG CAP 1 po BID DOXYCYCLINE HYCLATE 88651806783 No Longer Active Autumnnicole Barrientos MOBIC 15 MG TABS 1 PO daily for knee pain MELOXICAM 64600707424 No Longer Active Autumn Barrientos VITAMIN D 1000 UNIT TABS 2 PO Daily CHOLECALCIFEROL 98395638623 Active Autumn Barrientos DILANTIN 100 MG CAPS 2 PO QAM and 3 PO QPM PHENYTOIN SODIUM EXTENDED 30214926232 Active Briana Alford PLAVIX 75 MG TABS 1 PO every other day CLOPIDOGREL BISULFATE 24669251930 No Longer Active Autumn Barrientos PREDNISONE 20 MG TAB 3 pills daily at once for 2 days, 2 pills daily at once for 2 days, 1 once daily for 2 days PREDNISONE 07297972398 No Longer Active Autumn Barrientos LEVAQUIN 500 MG TAB 1 PO QD LEVOFLOXACIN 63740801326 No Longer Active Autumn Barrientos ZOSTAVAX 87037 UNT/0.65ML SOLR 1 injection once to prevent Shingles ZOSTER VACCINE LIVE 49342973634 No Longer Active Autumn Barrientos SYMBICORT 160-4.5 MCG/ACT AERO 2 puffs twice daily BUDESONIDE-FORMOTEROL FUMARATE 05618451914 Active Briana [place] ATROVENT 0.06 % SOLN 2 puffs each nostril TID prn runny nose IPRATROPIUM BROMIDE 36415352328 No Longer Active Autumn Barrientos PREDNISONE 20 MG TAB 3 pills daily at once for 2 days, 2 pills daily at once for 2 days, 1 once daily for 2 days PREDNISONE 25155715710 No Longer Active Autumn Barrientos BIAXIN 500 MG TAB 1 PO BID CLARITHROMYCIN 05292096316 No Longer Active Autumn Barrientos MOBIC 15 MG TABS 1 po daily MELOXICAM 16998464936 No Longer Active Autumn Barrientos PREDNISONE 20 MG TAB 3 pills daily at once for 2 days, 2 pills daily at once for 2 days, 1 once daily for 2 days PREDNISONE 47199238031 No Longer Active Autumn Barrientos TESSALON 200 MG CAPS 1 PO TID prn cough BENZONATATE 62415175081 No Longer Active Autumn Barrientos AUGMENTIN 500-125 MG TAB 1 PO BID AMOXICILLIN-POT CLAVULANATE 16673461791 No Longer Active Autumn HANLEY NASAL SPRAY (DEXAMETHASONE, GENTAMICIN, SALINE) 2 puffs each nostril TID for [address] HANLEY NASAL SPRAY (DEXAMETHASONE, GENTAMICIN, SALINE) No Longer Active Autumn Barrientos LOTRISONE 0.05-1 % CREAM Apply BID to affected areas CLOTRIMAZOLE-BETAMETHASONE 67012202346 No Longer Active Autumn Barrientos ACYCLOVIR 800 MG TABS 1 PO five times a day for 10 days ACYCLOVIR 78280993141 No Longer Active Autumn Barrientos LORTAB 5 5-500 MG TABS 1 to 2 PO Q6hrs prn ACETAMINOPHEN-HYDROCODONE 48108850008 No Longer Active Autumn Shira Barrientos VALTREX 1 GM TAB 1 PO BID VALACYCLOVIR HCL 43615087389 No Longer Active Autumn Shira Barrientos NYSTATIN 019236 U/ML SUSP 5cc PO QID for 7 days NYSTATIN 68675670545 No Longer Active Autumn Shira Barrientos DIFLUCAN 100 MG TAB 1 PO daily for five days FLUCONAZOLE 20087873205 No Longer Active Autumn Shira Barrientos MIRALAX POWD 1 scoop in 4oz of water PO daily POLYETHYLENE GLYCOL 3350 27939742247 Active Autumn Shira Barrientos BIAXIN 500 MG TAB 1 PO BID CLARITHROMYCIN 67614404980 No Longer Active Autumn Shira Barrientos MUCINEX 600 MG [id number] 1 po BID prn as needed GUAIFENESIN 60826955601 Active Autumn Shira Barrientos PREDNISONE 10 MG TAB 1 PO daily PREDNISONE 18298230362 No Longer Active Autumn Shira Barrientos ALBUTEROL SULFATE 0.083 % NEBU SOLN 1 Treatment QID ALBUTEROL SULFATE 97492384913 Active Autumn Shira Barrientos DARVOCET-N 100 100-650 MG TAB 1 PO Q4hrs prn pain PROPOXYPHENE N-APAP 64620454174 No Longer Active Autumn Shira Barrientos ASPIRIN 81 MG TAB 1 PO daily ASPIRIN 60988850429 Active Autumn Shira Barrientos COREG 25 MG TABS 1 po BID CARVEDILOL 38961284890 No Longer Active Autumn Shira Barrientos ALDACTONE 25 MG TABS 1/2 po every other day SPIRONOLACTONE 14648305525 No Longer Active Autumn Shira Barrientos CHLORPHENIRAMINE MALEATE 4 MG TABS 1 PO Q6hrs prn for cold CHLORPHENIRAMINE MALEATE 27163965474 No Longer Active Autumn Shira Barrientos PREDNISONE 20 MG TAB 2 pills at once for 3 days then 1 pill daily for 3 days PREDNISONE 83012515424 No Longer Active Autumnnicole Barrientos BIAXIN 500 MG TAB 1 PO BID CLARITHROMYCIN 08826247931 No Longer Active Autumnnicole Barrientos CHLORHEXIDINE GLUCONATE 0.12 % SOLN Rinse mouth 2 times a day CHLORHEXIDINE GLUCONATE 53590729966 Active Briana Alford COUMADIN 5 MG TABS 1 po daily WARFARIN SODIUM 18529754836 No Longer Active Autumn Barrientos PHENOBARBITAL 64.8 MG TABS 2 po at HS PHENOBARBITAL 47920252849 Active Briana Alford Immunizations Vaccine Administration Date [...] /min Resp rate weight E&M - 3141-9 213 [lb_av] Weight Measured blood pressure, diastolic - 8462-4 62 mm[Hg] [...] E&M - 3141-9 215 [lb_av] Weight Measured Diagnostic Results Date Name Value Unit Range Description Clinical Lists Update: CBC,CMP,CHOL,TRIG,TSH,FREE T4,DILANTIN,,FERRITIN,DIGOXIN - Chemistry bilirubin, serum, total 0.3 mg/dL triglyceride, serum, fasting 180 mg/dL aspartate aminotransferase (SGOT), serum 15 U/L protein, total, serum 7.1 g/dL potassium, serum 4.5 mmol/L thyroid stimulating hormone, serum 4.63 u[iU]/mL thyroxine, serum, free 0.78 ng/dL ferritin, serum 133.9 ng/mL alanine aminotransferase (SGPT), serum 17 U/L sodium, serum 136 mmol/L anion gap, serum 12 glucose, plasma fasting 103 mg/dL Estimated Glomerular Filtration Rate (calc) 62 mL/min/1.73m2 albumin, serum 4.2 g/dL alkaline phosphatase, serum 144 U/L urea nitrogen, blood 22 mg/dL calcium, serum 9.1 mg/dL creatinine, serum 1.2 mg/dL carbon dioxide, venous blood 30.0 mmol/L cholesterol, serum 216 mg/dL chloride, serum 99 mmol/L Clinical Lists Update: CBC,CMP,CHOL,TRIG,TSH,FREE T4,DILANTIN,,FERRITIN,DIGOXIN - Hematology mean corpuscular volume, RBC 101 fL red blood cell distribution width 15.8 % platelet count 214 10*3/mm3 erythrocyte (RBC) count 3.85 10*6/mm3 hemoglobin, blood 12.3 g/dL leukocyte count, blood 7.7 10*3/mm3 hematocrit, blood 39 % Clinical Lists Update: CBC,CMP,CHOL,TRIG,TSH,FREE T4,DILANTIN,,FERRITIN,DIGOXIN - Toxicology phenytoin level, serum 0.8 ug/mL digoxin level, serum 0.8 ng/mL Clinical Lists Update: CBC,CMP,Chol,Trig,TSH,Digoxin,Dilantin,Ferritin - Chemistry bilirubin, serum, total 0.3 mg/dL alanine aminotransferase (SGPT), serum 45 U/L aspartate aminotransferase (SGOT), serum 21 U/L protein, total, serum 6.7 g/dL potassium, serum 4.8 mmol/L ferritin, serum 66.7 ng/mL creatinine, serum 1.1 mg/dL carbon dioxide, venous blood 31.0 mmol/L cholesterol, serum 146 mg/dL chloride, serum 100 mmol/L calcium, serum 8.7 mg/dL urea nitrogen, blood 15 mg/dL alkaline phosphatase, serum 170 U/L albumin, serum 3.8 g/dL Estimated Glomerular Filtration Rate (calc) 70 mL/min/1.73m2 glucose, plasma fasting 89 mg/dL anion gap, serum 14 sodium, serum 140 mmol/L triglyceride, serum, fasting 121 mg/dL Clinical Lists Update: CBC,CMP,Chol,Trig,TSH,Digoxin,Dilantin,Ferritin - Hematology mean corpuscular volume, RBC 100 fL leukocyte count, blood 5.8 10*3/mm3 red blood cell distribution width 15.3 % hematocrit, blood 39 % hemoglobin, blood 12.2 g/dL erythrocyte (RBC) count 3.93 10*6/mm3 platelet count 214 10*3/mm3 Clinical Lists Update: CBC,CMP,Chol,Trig,TSH,Digoxin,Dilantin,Ferritin - Toxicology phenytoin level, serum 16.4 ug/mL digoxin level, serum 0.9 ng/mL Clinical Lists Update: CBC,CMP,Chol,Trig,TSH,Free T4,Ferritin, Digoxin, Dilantin - Chemistry carbon dioxide, venous blood 30.0 mmol/L cholesterol, serum 185 mg/dL chloride, serum 99 mmol/L calcium, serum 9.4 mg/dL urea nitrogen, blood 18 mg/dL alkaline phosphatase, serum 175 U/L albumin, serum 4.4 g/dL creatinine, serum 1.0 mg/dL ferritin, serum 93.9 ng/mL thyroxine, serum, free 0.88 ng/dL thyroid stimulating hormone, serum 6.49 u[iU]/mL potassium, serum 5.0 mmol/L protein, total, serum 7.2 g/dL aspartate aminotransferase (SGOT), serum 20 U/L triglyceride, serum, fasting 219 mg/dL bilirubin, serum, total 0.4 mg/dL alanine aminotransferase (SGPT), serum 23 U/L sodium, serum 137 mmol/L anion gap, serum 13 glucose, plasma fasting 92 mg/dL Estimated Glomerular Filtration Rate (calc) 78 mL/min/1.73m2 Clinical Lists Update: CBC,CMP,Chol,Trig,TSH,Free T4,Ferritin, Digoxin, Dilantin - Hematology erythrocyte (RBC) count 4.69 10*6/mm3 red blood cell distribution width 14.6 % platelet count 145 10*3/mm3 hematocrit, blood 46 % hemoglobin, blood 14.5 g/dL mean corpuscular volume, RBC 99 fL leukocyte count, blood 7.0 10*3/mm3 Clinical Lists Update: CBC,CMP,Chol,Trig,TSH,Free T4,Ferritin, Digoxin, Dilantin - Toxicology digoxin level, serum 1.3 ng/mL phenytoin level, serum 20.0 ug/mL Clinical Lists Update: CBC,CMP,FLP,TSH,FREE T4,DIGOXIN,DILANTIN,FERRITIN - Chemistry creatinine, serum 1.0 mg/dL carbon dioxide, venous blood 30.0 mmol/L cholesterol, serum 181 mg/dL chloride, serum 102 mmol/L calcium, serum 9.3 mg/dL urea nitrogen, blood 24 mg/dL alkaline phosphatase, serum 127 U/L albumin, serum 4.3 g/dL Estimated Glomerular Filtration Rate (calc) 79 mL/min/1.73m2 glucose, plasma fasting 98 mg/dL cholesterol/HDL ratio, serum, percent 7.0 anion gap, serum 10 sodium, serum 137 mmol/L triglyceride, serum, fasting 228 mg/dL bilirubin, serum, total 0.3 mg/dL alanine aminotransferase (SGPT), serum 23 U/L aspartate aminotransferase (SGOT), serum 17 U/L protein, total, serum 7.2 g/dL potassium, serum 4.7 mmol/L LDL cholesterol, serum 109 mg/dL thyroid stimulating hormone, serum 2.79 u[iU]/mL HDL cholesterol, serum 26.0 mg/dL thyroxine, serum, free 0.74 ng/dL ferritin, serum 92.1 ng/mL Clinical Lists Update: CBC,CMP,FLP,TSH,FREE T4,DIGOXIN,DILANTIN,FERRITIN - Hematology mean corpuscular volume, RBC 97 fL platelet count 181 10*3/mm3 hematocrit, blood 38.6 % hemoglobin, blood 12.3 g/dL red blood cell distribution width 13.5 % erythrocyte (RBC) count 3.97 10*6/mm3 leukocyte count, blood 6.1 10*3/mm3 Clinical Lists Update: CBC,CMP,FLP,TSH,FREE T4,DIGOXIN,DILANTIN,FERRITIN - Toxicology phenytoin level, serum 11.4 ug/mL digoxin level, serum 0.7 ng/mL Clinical Lists Update: CBC,CMP,UA IN PT LABS - Chemistry calcium, serum 8.4 mg/dL potassium, serum 4.0 mmol/L protein, total, serum 6.1 g/dL aspartate aminotransferase (SGOT), serum 15 U/L alanine aminotransferase (SGPT), serum 23 U/L bilirubin, serum, total 0.3 mg/dL sodium, serum 133 mmol/L glucose, plasma fasting 148 mg/dL Estimated Glomerular Filtration Rate (calc) >60 mL/min/1.73m2 albumin, serum 3.1 g/dL alkaline phosphatase, serum 97 U/L urea nitrogen, blood 15 mg/dL creatinine, serum 1.12 mg/dL chloride, serum 101 mmol/L carbon dioxide, venous blood 26 mmol/L Clinical Lists Update: CBC,CMP,UA IN PT LABS - Hematology leukocyte count, blood 5.7 10*3/mm3 hemoglobin, blood 10.6 g/dL mean corpuscular volume, RBC 94 fL hematocrit, blood 32 % erythrocyte (RBC) count 3.37 10*6/mm3 red blood cell distribution width 14.3 % platelet count 116 10*3/mm3 Clinical Lists Update: CBC,CMP,UA IN PT LABS - Urinalysis ketones, urine, by test strip neg nitrite, urine, semiquantitative neg pH, urine, semiquantitative 5 specific gravity, urine 1.025 urobilinogen, urine, semiquantitative (dipstick) 1 appearance, urine Cloudy Yellow WBC urine on microscopy 25-50 {Cells}/[HPF] bilirubin, urine neg glucose, urine, semiquantitative neg protein, urine, semiquantitative (dipstick) 3+ RBC urine by microscopy 2-5 blood in urine (hemoglobin) by dipstick 3+ hyaline casts, urine none /[LPF] bacteria, urine microscopy moderate mucus on urinalysis neg Clinical Lists Update: CMP,FLP,Digoxin [facility] - Chemistry Estimated Glomerular Filtration Rate (calc) 96 mL/min/1.73m2 glucose, plasma fasting 106 mg/dL cholesterol/HDL ratio, serum, percent 5.7 anion gap, serum 9 sodium, serum 137 mmol/L triglyceride, serum, fasting 160 mg/dL bilirubin, serum, total 0.3 mg/dL alanine aminotransferase (SGPT), serum 23 U/L aspartate aminotransferase (SGOT), serum 17 U/L protein, total, serum 7.1 g/dL potassium, serum 4.4 mmol/L LDL cholesterol, serum 114 mg/dL HDL cholesterol, serum 31.0 mg/dL creatinine, serum 0.8 mg/dL carbon dioxide, venous blood 34.0 mmol/L cholesterol, serum 177 mg/dL chloride, serum 98 mmol/L calcium, serum 9.4 mg/dL urea nitrogen, blood 16 mg/dL alkaline phosphatase, serum 170 U/L albumin, serum 4.3 g/dL Clinical Lists Update: CMP,FLP,Digoxin [facility] - Toxicology digoxin level, serum 1.1 ng/mL Clinical Lists Update: CMP,PT,INR,TSH,Digoxin [facility] - Chemistry Estimated Glomerular Filtration Rate (calc) 92 mL/min/1.73m2 glucose, plasma fasting 100 mg/dL anion gap, serum 12 sodium, serum 139 mmol/L bilirubin, serum, total 0.4 mg/dL alanine aminotransferase (SGPT), serum 30 U/L aspartate aminotransferase (SGOT), serum 24 U/L protein, total, serum 7.0 g/dL potassium, serum 4.7 mmol/L thyroid stimulating hormone, serum 3.07 u[iU]/mL creatinine, serum 0.9 mg/dL carbon dioxide, venous blood 32.0 mmol/L chloride, serum 100 mmol/L calcium, serum 9.3 mg/dL urea nitrogen, blood 15 mg/dL alkaline phosphatase, serum 127 U/L albumin, serum 4.2 g/dL Clinical Lists Update: CMP,PT,INR,TSH,Digoxin [facility] - Coagulation prothrombin time (patient) 12.60 s international normalized ratio (INR) 0.99 Clinical Lists Update: CMP,PT,INR,TSH,Digoxin [facility] - Toxicology digoxin level, serum 0.9 ng/mL Clinical Lists Update: UA - Urinalysis specific gravity, urine <1.005 ketones, urine, by test strip neg bilirubin, urine neg protein, urine, semiquantitative (dipstick) neg glucose, urine, semiquantitative neg pH, urine, semiquantitative 6.0 nitrite, urine, semiquantitative neg Office Visit: Dr Barrientos's Check Up: Established Patient Visit - Chemistry alanine aminotransferase (SGPT), serum 18 U/L alanine aminotransferase (SGPT), serum 16 U/L aspartate aminotransferase (SGOT), serum 14 U/L aspartate aminotransferase (SGOT), serum 15 U/L protein, total, serum 6.4 g/dL protein, total, serum 7.3 g/dL bilirubin, serum, total 0.4 mg/dL bilirubin, serum, total 0.4 mg/dL sodium, serum 139 mmol/L sodium, serum 135 mmol/L anion gap, serum 11 anion gap, serum 13 glucose, plasma fasting 94 mg/dL glucose, plasma fasting 147 mg/dL Estimated Glomerular Filtration Rate (calc) 75 mL/min/1.73m2 Estimated Glomerular Filtration Rate (calc) 106 mL/min/1.73m2 potassium, serum 4.1 mmol/L albumin, serum 4.3 g/dL albumin, serum 4.0 g/dL alkaline phosphatase, serum 139 U/L alkaline phosphatase, serum 138 U/L urea nitrogen, blood 22 mg/dL urea nitrogen, blood 14 mg/dL calcium, serum 9.1 mg/dL potassium, serum 4.3 mmol/L thyroid stimulating hormone, serum 3.13 u[iU]/mL thyroid stimulating hormone, serum 2.44 u[iU]/mL thyroxine, serum, free 0.87 ng/dL creatinine, serum 0.8 mg/dL creatinine, serum 1.0 mg/dL carbon dioxide, venous blood 29.0 mmol/L carbon dioxide, venous blood 31.0 mmol/L chloride, serum 97 mmol/L chloride, serum 101 mmol/L calcium, serum 8.8 mg/dL Office Visit: Dr Barrientos's Check Up: Established Patient Visit - Hematology leukocyte count, blood 6.4 10*3/mm3 mean corpuscular volume, RBC 99 fL red blood cell distribution width 15.1 % hematocrit, blood 43 % hemoglobin, blood 13.5 g/dL platelet count 143 10*3/mm3 erythrocyte (RBC) count 4.29 10*6/mm3 Office Visit: Dr Barrientos's Check Up: Established Patient Visit - Toxicology digoxin level, serum 0.8 ng/mL Encounters Code Encounter Date Provider Facility CPT-65317 Ofc Vst, Est Level III 18:07:39 CDT Autumnnicole Barrientos, DO, FACP CPT-70053 Ofc Vst, Est Level III 14:19:06 CDT Autumn Shira Barrientos, DO, FACP CPT-43373 Ofc Vst, Est Level III 13:33:45 CDT Autumn Shira Barrientos, DO, FACP CPT-20813 Ofc Vst, Est Level III 17:12:01 CDT Autumnnicole Barrientos, DO, FACP CPT-40402 Ofc Vst, Est Level IV 21:01:56 CDT Autumnnicole Barrientos, DO, FACP CPT-54224 Ofc Vst, Est Level III 15:48:19 [employer] Autumn Barrientos, DO, FACP CPT-23404 Ofc Vst, Est Level IV 15:01:25 [employer] MAIN[employer] Autumn Barrientos, DO, FACP CPT-12232 Ofc Vst, Est Level III 16:54:20 [employer]NAL MAINTAINER [employer] Autumn Barrientos, DO, FACP CPT-60934 Ofc Vst, Est Level III 19:49:29 CDT Autumn Barrientos, DO, FACP CPT-49040 Ofc Vst, Est Level III 19:25:35 CDT Autumnnicole Barrientos, DO, FACP CPT-23531 Ofc Vst, Est Level III 19:01:53 CDT Autumnnicole Becerril Barrientos, DO, FACP CPT-69881 Ofc Vst, Est Level III 16:32:38 [employer]NAL MAINTAINER HELPER Autumn Becerril Barrientos, DO, FACP CPT-20826 Ofc Vst, Est Level III 15:37:57 [employer] MAIN[employer] Autumn Barrientos [facility] CPT-78420 Ofc Vst, Est Level III 12:03:55 [employer]NAL MAINTAINER HELPER Autumn Becerril Barrientos, DO, FACP CPT-66563 Ofc Vst, Est Level III 15:47:39 CDT Autumn Shira Becerril Iliana, DO, FACP CPT-56792 Ofc Vst, Est Level III 16:50:03 CDT Autumnnicole Becerril Iliana, DO, FACP CPT-90044 Ofc Vst, Est Level III 16:44:49 CDT Autumnnicole Becerril Iliana, DO, FACP CPT-35293 Ofc Vst, Est Level III 12:02:26 CDT Autumn Shira Becerril Iliana, DO, FACP CPT-28534 Ofc Vst, Est Level III 16:20:59 CDT Autumnnicole Becerril Iliana, DO, FACP CPT-79354 Ofc Vst, Est Level III 11:47:46 CDT Autumnnicole Barrientos [facility] CPT-04297 Ofc Vst, Est Level III 15:01:40 CDT Autunmnicole Becerril Iliana, DO, FACP CPT-89763 Ofc Vst, Est Level III 15:21:49 CDT Autumn Shira Becerril Iliana, DO, FACP CPT-08668 Ofc Vst, Est Level III 11:46:40 [employer]NAL MAINTAINER HEL[employer] Autumnnicole Becerril Iliana, DO, FACP CPT-62124 Ofc Vst, Est Level III 16:04:08 [employer]NAL MAINTAINER HELPER Autumn Becerril Barrientos, DO, FACP CPT-11814 Ofc Vst, Est Level III 12:47:46 SIGNAL MAINTAINER HELPER Autumn Becerril Barrientos, DO, FACP CPT-96464 Ofc Vst, Est Level III 14:12:37 SIGNAL MAINTAINER HELPER Autumn Becerril Barrientos, DO, FACP CPT-11813 Ofc Vst, Est Level III 20:15:48 CDT Autumn Shira Becerril Barrientos, DO, FACP CPT-71095 Ofc Vst, Est Level III 14:50:03 CDT Autumnnicole Becerril Barrientos, DO, FACP CPT-67872 Ofc Vst, Est Level IV 11:07:07 CDT Autumnnicole Becerril Iliana, DO, FACP CPT-91594 Ofc Vst, Est Level IV 10:56:03 SIGNAL MAINTAINER HELPER Autumn Becerril Barrientos, DO, FACP CPT-60411 Ofc Vst, Est Level III 10:34:42 SIGNAL MAINTAINER HELPER Autumn Becerril Barrientos, DO, FACP CPT-61456 Ofc Vst, Est Level IV 11:18:10 SIGNAL MAINTAINER HELPER Autumn Becerril Barrientos, DO, FACP CPT-03008 Ofc Vst, Est Level III 10:56:32 CDT Autumnnicole Becerril Barrientos, DO, FACP CPT-04497 Ofc Vst, Est Level IV 11:11:23 CDT Autumn Shira Becerril Barrientos, DO, FACP CPT-97527 Ofc Vst, Est Level IV 11:24:11 CDT Autumnnicole Becerril Iliana, DO, FACP CPT-97711 Ofc Vst, Est Level III 11:36:54 CDT Autumnnicole Becerril Barrientos, DO, FACP CPT-63944 Ofc Vst, Est Level V 15:07:54 CDT Autumn Shira Bceerril Barrientos, DO, FACP CPT-31737 Ofc Vst, Est Level III 16:05:11 CDT Autumn Shira Becerril Iliana, DO, FACP CPT-72796 Ofc Vst, Est Level IV 11:19:33 CDT Autumn Shira Becerril Barrientos, DO, FACP CPT-04294 Ofc Vst, Est Level III 11:16:56 SIGNAL MAINTAINER HELPER Autumnnicole Becerril Iliana, DO, FACP CPT-58466 Ofc Vst, Est Level IV 11:12:37 SIGNAL MAINTAINER HELPER Autumn Shira Becerril Iliana, DO, FACP CPT-61712 Ofc Vst, Est Level IV 15:21:42 SIGNAL MAINTAINER HELPER Autumn [facility] CPT-91851 Ofc Vst, Est Level IV 10:49:32 SIGNAL MAINTAINER HELPER Autumn Becerril Iliana, DO, FACP CPT-22404 Ofc Vst, Est Level IV 13:16:00 CDT Autumnnicole Becerril Iliana, DO, FACP CPT-46641 Ofc Vst, Est Level IV 10:47:17 CDT Autumn Shira Becerril Iliana, DO, FACP CPT-33180 Ofc Vst, Est Level IV 10:22:32 CDT Autumn Shira Becerril Iliana, DO, FACP CPT-99599 Ofc Vst, Est Level III 10:35:26 CDT Autumn Shira Becerril Iliana, DO, FACP CPT-98443 Ofc Vst, Est Level IV 11:29:20 CDT Autumn Shira Becerril Barrientos, DO, FACP CPT-67277 Ofc Vst, Est Level IV 13:52:31 CDT Autumn Becerril Barrientos, DO, FACP CPT-93612 Ofc Vst, Est Level IV 11:41:20 CDT Autumn Shira Becerril Barrientos, DO, FACP CPT-07170 Ofc Vst, Est Level IV 09:38:08 SIGNAL MAINTAINER HELPER Autumn Becerril Barrientos, DO, FACP CPT-32072 Ofc Vst, Est Level V 11:02:14 SIGNAL MAINTAINER HELPER Autumn Becerril Barrientos, DO, FACP CPT-75771 Ofc Vst, Est Level V 10:30:31 SIGNAL MAINTAINER HELPER Autumn Becerril Barrientos, DO, FACP CPT-40883 Ofc Vst, Est Level IV 11:14:50 SIGNAL MAINTAINER HELPER Autumn Becerril Barrientos, DO, FACP CPT-16385 Ofc Vst, Est Level V 11:06:34 SIGNAL MAINTAINER HELPER Autumn Becerril Barrientos, DO, FACP CPT-84212 Ofc Vst, Est Level IV 11:30:08 SIGNAL MAINTAINER HELPER Autumn Becerril Barrientos, DO, FACP CPT-83782 Ofc Vst, Est Level V 11:35:41 CDT Autumnnicole Becerril Iliana, DO, FACP CPT-75412 Ofc Vst, Est Level IV 10:09:46 CDT Autumnnicole Becerril Barrientos, DO, FACP CPT-97895 Ofc Vst, Est Level V 13:55:27 CDT Autumn Shira Leyva S Barrientos, DO, FACP CPT-45585 Ofc Vst, Est Level V 11:20:26 CDT Autumn Shira Becerril Iliana, DO, FACP CPT-11607 Ofc Vst, New Level IV 16:42:29 CDT [facility]rientos [facility], [facility] Procedures Code Procedure Name Date Entry Date Standard Description CPT-G0439 Medicare Annual Wellness Visit 10:22:06 SIGNAL MAINTAINER HELPER CPT-G0439 Medicare Annual Wellness Visit 15:50:07 CDT CPT-G8446 E-Prescribing not done due to controlled substance 19:01:53 CDT CPT-G8445 E-Prescribing Not sent due to no medication given 16:32:38 SIGNAL MAINTAINER HELPER CPT-G8443 E-Prescribing Medication Sent 15:37:57 SIGNAL MAINTAINER HELPER CPT-G8445 E-Prescribing Not sent due to no medication given 12:03:55 SIGNAL MAINTAINER HELPER CPT-G8445 E-Prescribing Not sent due to no [...] sent due to no medication given 11:46:40 SIGNAL MAINTAINER HELPER CPT-G8443 E-Prescribing Medication Sent 16:04:08 SIGNAL MAINTAINER HELPER CPT-G8443 E-Prescribing Medication Sent 12:47:46 SIGNAL MAINTAINER HELPER CPT-G8445 E-Prescribing Not sent due to no medication given 14:12:37 SIGNAL MAINTAINER HELPER CPT-G8445 E-Prescribing Not sent due to no medication given 12:46:38 CDT CPT-69838 Ear Wax Removal 12:46:38 CDT CPT-G8443 E-Prescribing Medication Sent 20:15:48 CDT CPT-G0438 Medicare Annual Wellness Visit Initial 11:42:23 CDT
--- NOTE | 2019-03-13 00:05 | NUR ---
RETURNED TO ROOM FROM CT WITH THIS RN.
--- NOTE | 2019-03-13 00:06 | ED Fall/Injury ---
General Chief Complaint: Trauma-Non Activation Stated Complaint: FALL, RT EYE INJURY Source: patient, spouse Exam Limitations: no limitations History of Present Illness Date Seen by Provider: Mar 13, 2019 Time Seen by Provider: 00:00 Initial Comments Patient presents to ER by EMS with chief complaint that about an hour prior to arrival he had a fall in his bedroom while standing up trying to change his brief. He was alone unaccompanied and says he doesn't think he lost consciousness. He did strike his head and had a hard time getting back. He has a laceration over his right eye which had stopped bleeding by the time EMS arrived. He has a skin tear on his left hand but he says he has no pain anywhere. He says for the past 2 days been having diarrhea not sure why. No fevers chills cough shortness of breath. History of falls and CABG. On aspirin. He has had a tetanus shot in the last 5 years. Allergies and Home Medications Allergies Coded Allergies: amiodarone (Verified Allergy, Severe, 03/13/19) lorazepam (Verified Allergy, Unknown, 03/13/19) scopolamine (Verified Allergy, Unknown, 03/13/19) Home Medications Acetaminophen 325 Mg Tablet, 650 MG PO Q4H PRN for PAIN Prescribed by: DANNIELLE BRAUN on 05/10/15 1424 Albuterol Sulfate 2.5 Mg/3 Ml Nebu, 2.5 MG INH RTBID Prescribed by: RONAK JOY on 05/05/14 1153 Aspirin 81 Mg Tabec, 81 MG PO DAILY Prescribed by: RONAK JOY on 05/05/14 1153 Cefuroxime Axetil 500 Mg Tablet, 500 MG PO BID Prescribed by: DANNIELLE BRAUN on 05/10/15 1424 Cholecalciferol 1,000 Unit Tab, 2,000 UNIT PO DAILY Prescribed by: RONAK JOY on 05/05/14 1153 Digoxin 0.25 Mg Tab, 0.25 MG PO DAILY Prescribed by: RONAK JOY on 05/05/14 1153 Furosemide 40 Mg Tab, 40 MG PO DAILY Prescribed by: RONAK JOY on 05/05/14 1153 Guaifenesin 600 Mg Tab, 600 MG PO BID PRN for COUGH Prescribed by: RONAK JOY on 05/05/14 1153 Levothyroxine Sodium 75 Mcg Tablet, 75 MCG PO DAILY, (Reported) Menthol/Lanolin/Calamine/Znox 113 Gm Oint, 0 GM EXT QID Prescribed by: RONAK JOY on 05/05/141152 Metoprolol Succinate 25 Mg Tab, 50 MG PO DAILY Prescribed by: RONAK JOY on 05/05/141152 Montelukast Sodium 10 Mg Tablet, 10 MG PO HS, (Reported) Phenobarbital 64.8 Mg Tablet, 129.6 MG PO HS, (Reported) Phenytoin Sodium 100 Mg Cap, 300 MG PO WITH EVENING MEAL, (Reported) TAKES 3 (100MG) CAPSULES Phenytoin Sodium Extended 100 Mg Capsule, 200 MG PO DAILY, (Reported) TAKES 2 (100MG) CAPSULES EVERY MORNING Simvastatin 10 Mg Tablet, 10 MG PO HS, (Reported) [Budesonide/Formoterol Fumarate] 1 PUFF PUFF, 2 PUFF IH RTBID Prescribed by: RONAK JOY on 05/05/141152 [Chlorhexidine Gluconate] 15 ML SOLN, 5 ML PO BID Prescribed by: RONAK JOY on 05/05/141152 [Lisinopril] 5 MG TABLET, 5 MG PO DAILY@0900 Prescribed by: RONAK JOY on 05/05/141152 [Polyethylene Glycol] 17 GM PACK, 17 GM PO DAILY Prescribed by: RONAK JOY on 05/05/141152 Patient Home Medication List Home Medication List Reviewed: Yes Review of Systems Review of Systems Constitutional: No chills, No fever, No malaise Eyes: Denies Blindness, Denies Blurred Vision Ears, Nose, Mouth, Throat: denies ear pain, denies ear discharge Respiratory: No cough, No short of breath Cardiovascular: No chest pain, No edema Past Guskcgf-Raignc-Gocoyn Hx Patient Social History Alcohol Use: Denies Use Recreational Drug Use: No Smoking Status: Never a Smoker Recent Foreign Travel: No Contact w/Someone Who Travel: No Immunizations Up To Date Tetanus Booster (TDap): Less than 5yrs PED Vaccines UTD: Yes Date of Pneumonia Vaccine: Jul 21, 2011 Date of Influenza Vaccine: May 10, 2015 Seasonal Allergies Seasonal Allergies: No Past Medical History CABG COPD Hypertension Seizure Disorder, Stroke Reproductive Disorders: No Sexually Transmitted Disease: No Abdominal Hernia Hearing Impairment: Hard of Hearing Skin Depression Adverse Reaction/Blood Tranf: No Family Medical History Arthritis 19 MOTHER, Cardiovascular disease G8 BROTHER, G8 BROTHER, , Age:67 G8 BROTHER G8 SISTER Cataracts G8 BROTHER, , Age:67 G8 BROTHER Completed stroke 19 MOTHER, Deafness or hearing loss G8 BROTHER G8 BROTHER Diabetes mellitus G8 SISTER Headache disorder 19 FATHER, 19 MOTHER, G8 BROTHER, G8 BROTHER, , Age:67 G8 BROTHER G8 BROTHER G8 SISTER Hypercholesterolemia G8 BROTHER, , Age:67 G8 BROTHER G8 BROTHER G8 SISTER Hypertension 19 MOTHER, G8 BROTHER G8 SISTER Myocardial infarction G8 BROTHER, , Age:67 G8 BROTHER G8 SISTER Respiratory disorder G8 BROTHER, Thyroid disease G8 SISTER No Family History of: AIDS Abdominal aortic aneurysm Shreyas's disease Alcoholism Alzheimer's disease Aphasia Asthma Cancer of mouth Colon cancer Congenital disease Congenital heart disease Cystic fibrosis Dementia Drug abuse Dysphasia Fibrocystic disease of breast Gastroenteritis Glaucoma Infertility Kidney disease Neoplasm Not obtainable due to adoption Osteoporosis Parkinson's disease Prostate cancer Psychosocial problem Seizure disorder Severe allergy Tuberculosis Visual disorder Physical Exam Vital Signs Vital Signs - First Documented Capillary Refill : Height, Weight, BMI Height: 5'11.00" Weight: 208lbs. 0.0oz. [id number]; 29.0 BMI Method:Estimated General Appearance: WD/WN, no apparent distress HEENT: PERRL/EOMI, normal ENT inspection, TMs normal, pharynx normal, other (3 cm linear laceration in the right eyebrow. Negative for Morrison sign or raccoon eyes. Dried blood on the face.) Neck: non-tender, full range of motion, supple, normal inspection Cardiovascular: normal peripheral pulses, regular rate, rhythm, no edema Respiratory: chest non-tender, lungs clear, normal breath sounds, no respiratory distress, no accessory muscle use Peripheral Pulses: 2+ Dorsalis Pedis (R), 2+ Left Dors-Pedis (L), 2+ Radial Pulses (R), 2+ Radial Pulses (L) Gastrointestinal: normal bowel sounds, non tender, soft Pelvic: normal external exam Back: normal inspection, no vertebral tenderness Extremities: normal range of motion, non-tender, normal inspection, no pedal edema, no calf tenderness, normal capillary refill 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, no motor/sensory deficits, alert, normal mood/affect, oriented x 3 Skin: other (2 cm trying get her skin flap on the dorsum of the left hand reapproximated and hemostatic.) [place] Coma Score Best Eye Response: (4) Open Spontaneously Best Verbal Response: (5) Oriented Best Motor Response: (6) Obeys Commands Piero Total: 15 Procedures/Interventions Wound Location: Face Other Wound Location Stellate laceration above the right eyebrow approximately 4 cm total Wound Length (cm): 4 Wound's Depth, Shape: linear, sub Q Wound Explored: no foreign body removed Irrigated w/ Saline (ccs): 100 Betadine Prep?: Yes (chlorhexidine and sterile saline) Anesthesia: 1% Lidocaine Volume Anesthetic (ccs): 3 Wound Debrided: minimal Suture: Prolene Suture Size: 5-0 Number of Sutures: 7 Sterile Dressing Applied?: Yes Progress/Results/Core Measures Results/Orders Lab Results Laboratory Tests Test 03/13/19 00:12 Range/Units White Blood Count 7.0 4.3-11.0 10^3/uL Red Blood Count 4.29 L 4.35-5.85 10^6/uL Hemoglobin 13.6 13.3-17.7 G/DL Hematocrit 40 40-54 % Mean Corpuscular Volume 93 80-99 FL Mean Corpuscular Hemoglobin 32 25-34 PG Mean Corpuscular Hemoglobin Concent 34 32-36 G/DL Red Cell Distribution Width 13.7 10.0-14.5 % Platelet Count 178 130-400 10^3/uL Mean Platelet Volume 10.2 7.4-10.4 FL Neutrophils (%) (Auto) 66 42-75 % Lymphocytes (%) (Auto) 18 12-44 % Monocytes (%) (Auto) 14 H 0-12 % Eosinophils (%) (Auto) 2 0-10 % Basophils (%) (Auto) 0 0-10 % Neutrophils # (Auto) 4.6 1.8-7.8 X 10^3 Lymphocytes # (Auto) 1.2 1.0-4.0 X 10^3 Monocytes # (Auto) 1.0 0.0-1.0 X 10^3 Eosinophils # (Auto) 0.2 0.0-0.3 10^3/uL Basophils # (Auto) 0.0 0.0-0.1 10^3/uL Sodium Level 136 135-145 MMOL/L Potassium Level 4.2 3.6-5.0 MMOL/L Chloride Level 102 98-107 MMOL/L Carbon Dioxide Level 20 L 21-32 MMOL/L Anion Gap 14 5-14 MMOL/L Blood Urea Nitrogen 23 H 7-18 MG/DL Creatinine 1.13 0.60-1.30 MG/DL Estimat Glomerular Filtration Rate > 60 BUN/Creatinine Ratio 20 Glucose Level 128 H 70-105 MG/DL Calcium Level 9.3 8.5-10.1 MG/DL Corrected Calcium 9.4 8.5-10.1 MG/DL Magnesium Level 2.3 1.8-2.4 MG/DL Total Bilirubin 0.3 0.1-1.0 MG/DL Aspartate Amino Transf (AST/SGOT) 22 5-34 U/L Alanine Aminotransferase (ALT/SGPT) 27 0-55 U/L Alkaline Phosphatase 158 H 40-136 U/L Total Protein 8.4 H 6.4-8.2 GM/DL Albumin 3.9 3.2-4.5 GM/DL My Orders Orders - JEFFERY AYERS Cbc With Automated Diff (03/13/19 00:02) Comprehensive Metabolic Panel (03/13/19 00:02) Magnesium (03/13/19 00:02) Ct Head/Face/Cervical Wo (03/13/19 00:02) Chest 1 View, Ap/Pa Only (03/13/19 00:02) Abdomen/Kub 1view (03/13/19 00:02) Ed Iv/Invasive Line Start (03/13/19 00:02) Lactated Ringers (Lr 1000 Ml Iv Solution (03/13/19 00:02) Lidocaine 1% Inj 20 Ml (Xylocaine 1% Inj (03/13/19 00:15) Ed Iv/Invasive Line Start (03/13/19 00:49) Lactated Ringers (Lr 1000 Ml Iv Solution (03/13/19 00:49) Medications Given in ED Current Medications Medications Dose Ordered Sig/Yissel Route Start Time Stop Time Status Last Admin Dose Admin Lactated Ringer's 1,000 ml @ 0 mls/hr Q0M ONCE IV 03/13/19 00:02 03/13/19 00:05 DC 03/13/19 00:19 1,000 MLS/HR Lactated Ringer's 1,000 ml @ 0 mls/hr Q0M ONCE IV 03/13/19 00:49 03/13/19 00:50 DC 03/13/19 01:20 1,000 MLS/HR Lidocaine HCl 20 ml ONCE ONCE INJ 03/13/19 00:15 03/13/19 00:16 DC 03/13/19 00:20 20 ML Vital Signs/I&O 03/12/19 03/12/19 23:50 23:50 Temp 99.0 99.0 Pulse 83 83 Resp 20 20 B/P (MAP) 145/74 (97) 145/74 (97) Pulse Ox 95 95 O2 Delivery Nasal Cannula Progress Progress Note : Time: 01:53 Progress Note Skin tear treated with Johny and triple antibiotic ointment. Plan to suture the right forehead laceration. Diagnostic Imaging Diagonstic Imaging: Xray Plain Films/CT/US/NM/MRI: chest Comments Previous sternotomy changes. No evidence of acute cardio pulmonary processes. Reviewed: Reviewed by Me Diagonstic Imaging: Xray Plain Films/CT/US/NM/MRI: abdomen ([id number]) Comments Nonspecific chest pattern without any free air in the abdomen. No evidence of obstruction. Reviewed: Reviewed by Me Diagonstic Imaging: CT (noncontrast) Plain Films/CT/US/NM/MRI: facial bones, c-spine, head Comments No acute findings and no change from prior study of the CT of the head. No evidence of maxillofacial or orbital fracture. Cervical spondylosis but no fracture. Reviewed: Reviewed by Me Departure Impression Primary Impression: Fall Qualified Codes: W19.XXXA - Unspecified fall, initial encounter Additional Impressions: Laceration of forehead without complication Qualified Codes: S01.81XA - Laceration without foreign body of other part of head, initial encounter Skin tear of left hand without complication Qualified Codes: S61.412A - Laceration without foreign body of left hand, initial encounter Mild dehydration Disposition: 01 HOME, SELF-CARE Condition: Stable Departure-Patient Inst. Decision time for Depature: 02:40 Referrals: RONAK JOY DO (PCP/Family) Primary Care Physician Patient Instructions: Laceration Repair With Stitches (DC) Add. Discharge Instructions: Keep the wound clean with regular soap and water. You may apply a dollop of Vaseline and a bandage over it and change daily or as often as it becomes soiled. Return to the ER or your primary care doctor to have the sutures out in about 10-14 days. If the wound begins to look infected or you have fever or other worrisome symptoms please return to the doctor sooner. All discharge instructions reviewed with patient and/or family. Voiced understanding. JEFFERY AYERS Mar 13, 2019 00:06
--- OUTSIDE RECORDS SUMMARY | 2019-03-13 00:06 | XMS REPORT | Clinical Summary ---
Author Author User, [place] Organization Autumn Barrientos DO, [facility] Address Unknown [...] Coronary atherosclerosis of unspecified type of vessel, [place]ankton or graft SEIZURE 780.3 Active Autumn Barrientos [...] MG CAP 1 po BID DOXYCYCLINE HYCLATE 45492357242 No Longer Active Autumn Barrientos PREDNISONE 10 MG TAB 4 PO at one time once daily for 2 days, then 3 PO at one time once daily for 2 days, and 2 PO at one time once daily for 2 days, and then 1 PO daily for 2 days. PREDNISONE 78069940782 No Longer Active Autumn Barrientos SYNTHROID 0.075 MG TAB 1 PO daily LEVOTHYROXINE SODIUM 25724760832 Active Autumn Barrientos NYSTATIN SUSP 5 ML PO Q 6 HRS NYSTATIN SUSP 32165917065 No Longer Active Autumn Barrientos AMIODARONE HCL 400 MG TABS 1 PO every other day AMIODARONE HCL 80931304782 No Longer Active Autumn Barrientos PREDNISONE 10 MG TABS TAKE 4 TABS PO DAILY X 2 DAYS, THEN 3 PILLS PO DAILY X 2 DAYS, THEN 2 PILLS PO DAILY X 2 DAYS, THEN ONE PILL PO DAILY X 2 DAYS PREDNISONE 74011799677 No Longer Active Autumn Barrientos VITAMIN C 500 MG TABS 2 po daily ASCORBIC ACID 07703955181 No Longer Active Autumn Barrientos HYDROCODONE-ACETAMINOPHEN 5-325 MG TABS 1-2 PO Q4-6 hrs prn pain HYDROCODONE-ACETAMINOPHEN 40413766838 No Longer Active Autumn Barrientos ZOCOR 10 MG TAB 1 PO Daily SIMVASTATIN 97177150755 Active Autumn Barrientos TRANSDERM-SCOP 1.5 MG PT72 1 patch behind ear and change every 3 days SCOPOLAMINE BASE 32096547923 No Longer Active Autumnnicole Barrientos LISINOPRIL 5 MG TABS 1 po daily LISINOPRIL 13694532018 Active Autumn Shira Barrientos DIGOXIN 0.25 MG TABS 1 PO daily DIGOXIN 69400680597 Active Autumn Shira Barrientos TOPROL XL 25 MG [id number] 2 PO daily METOPROLOL SUCCINATE 48008141806 Active Autumn Shira Barrientos VALIUM 2 MG TAB 1/2 - 1 PO BID prn muscle spasm DIAZEPAM 50591541283 No Longer Active Autumn Shira Barrientos KENALOG 0.1 % CREA apply to affected areas BID TRIAMCINOLONE ACETONIDE No Longer Active Autumnnicole Barrientos PREDNISONE 20 MG TAB 2 pills at once for 2 days then 1 pill daily for 5 days PREDNISONE 04974458260 No Longer Active Autumn Barrientos DOXYCYCLINE HYCLATE 100 MG CAP 1 po BID DOXYCYCLINE HYCLATE 70869059827 No Longer Active Autumnnicole Barrientos CALMOSEPTINE 0.44-20.625 % OINT Apply to affected areas TID prn MENTHOL-ZINC OXIDE 63352327601 Active Autumnnicole Barrientos BIAXIN 500 MG TAB 1 PO BID CLARITHROMYCIN 90305977356 No Longer Active Autumn Barrientos PREDNISONE 20 MG TAB 2 pills at once for 3 days then 1 pill daily for 5 days PREDNISONE 28213663698 No Longer Active Prabha Carmona PREDNISONE 20 MG TAB 2 pills at once for 4 days then 1 pill daily for 4 days PREDNISONE 76865663683 No Longer Active Autumnnicole Barrientos LEVAQUIN 500 MG TAB 1 PO QD LEVOFLOXACIN 72364166397 No Longer Active Autumnnicole Barrientos TYLENOL 325 MG TABS 2 po q 4 hrs prn pain ACETAMINOPHEN 69286271170 No Longer Active Autumn Shira Barrientos CALMOSEPTINE 0.44-20.625 % OINT Apply to affected area QID prn MENTHOL-ZINC OXIDE 61553778398 No Longer Active Autumn Shira Barrientos JANE ALLERGY 180 MG TABS 1 PO daily FEXOFENADINE HCL 21929264005 No Longer Active Autumn Shira Barrientos VALIUM 2 MG TAB 1 PO QHS prn DIAZEPAM 84115087379 No Longer Active Autumn Shira Barrientos FLEXERIL 10 MG TAB 1 PO QHS prn CYCLOBENZAPRINE HCL 69547687205 No Longer Active Autumn Shira Barrientos ANUSOL-HC 2.5 % CREA apply to affected area on rectum TID prn. HYDROCORTISONE 32001488688 No Longer Active Autumn Shira Barrientos LOTRISONE 0.05-1 % CREAM apply to affected areas twice daily CLOTRIMAZOLE-BETAMETHASONE 96637969786 No Longer Active Autumn Shira Barrientos SINGULAIR 10 MG TABS 1 PO QHS MONTELUKAST SODIUM 30198078116 Active Autumn Shira Barrientos PREDNISONE 20 MG TAB 2 pills at once for 3 days then 1 pill daily for 5 days PREDNISONE 37362820972 No Longer Active Autumn Shira Barrientos FUROSEMIDE 40 MG TABS 1 PO every day FUROSEMIDE 53191694144 Active Autumn Shira Barrientos TAMIFLU 75 MG CAPS 1 PO DAILY X 10 DAYS OSELTAMIVIR PHOSPHATE 82392153287 No Longer Active Autumn Shira Barrientos PREDNISONE 20 MG TABS 1 PO DAILY x 7 days then DC PREDNISONE 82053899500 No Longer Active Autumn Shira Barrientos PREDNISONE 20 MG TAB 2 pills at once for 3 days then 1 pill daily for 3 days PREDNISONE 16842262126 No Longer Active Autumn Shira Barrientos DOXYCYCLINE HYCLATE 100 MG CAP 1 po BID DOXYCYCLINE HYCLATE 30994721613 No Longer Active Autumn Barrientos DOCUSATE SODIUM 60 MG/15ML SYRP 2 drops left ear let stand for 5 minutes then rinse. Use daily for 7 days then return to office for flushing of ears DOCUSATE SODIUM 03153064034 No Longer Active Autumn Barrientos PREDNISONE 20 MG TAB 2 pills at once for 3 days then 1 pill daily for 3 days PREDNISONE 21622459738 No Longer Active Autumn Barrientos DOXYCYCLINE HYCLATE 100 MG CAP 1 po BID DOXYCYCLINE HYCLATE 11453358780 No Longer Active Autumn Barrientos MOBIC 15 MG TABS 1 PO daily for knee pain MELOXICAM 06685294155 No Longer Active Autumn Barrientos VITAMIN D 1000 UNIT TABS 2 PO Daily CHOLECALCIFEROL 11224137980 Active Autumn Barrientos DILANTIN 100 MG CAPS 2 PO QAM and 3 PO QPM PHENYTOIN SODIUM EXTENDED 54169766346 Active Briana Alford PLAVIX 75 MG TABS 1 PO every other day CLOPIDOGREL BISULFATE 66287448504 No Longer Active Autumn Barrientos PREDNISONE 20 MG TAB 3 pills daily at once for 2 days, 2 pills daily at once for 2 days, 1 once daily for 2 days PREDNISONE 81378831466 No Longer Active Autumn Barrientos LEVAQUIN 500 MG TAB 1 PO QD LEVOFLOXACIN 17787147623 No Longer Active Autumn Barrientos ZOSTAVAX 18412 UNT/0.65ML SOLR 1 injection once to prevent Shingles ZOSTER VACCINE LIVE 15753161746 No Longer Active Autumn Barrientos SYMBICORT 160-4.5 MCG/ACT AERO 2 puffs twice daily BUDESONIDE-FORMOTEROL FUMARATE 76494751308 Active Briana Alford ATROVENT 0.06 % SOLN 2 puffs each nostril TID prn runny nose IPRATROPIUM BROMIDE 74651078963 No Longer Active Autumn Barrientos PREDNISONE 20 MG TAB 3 pills daily at once for 2 days, 2 pills daily at once for 2 days, 1 once daily for 2 days PREDNISONE 37806607562 No Longer Active Autumn Barrientos BIAXIN 500 MG TAB 1 PO BID CLARITHROMYCIN 75418108319 No Longer Active Autumn Barrientos MOBIC 15 MG TABS 1 po daily MELOXICAM 49742106866 No Longer Active Autumn Barrientos PREDNISONE 20 MG TAB 3 pills daily at once for 2 days, 2 pills daily at once for 2 days, 1 once daily for 2 days PREDNISONE 83186687998 No Longer Active Autumn Barrientos TESSALON 200 MG CAPS 1 PO TID prn cough BENZONATATE 99402967309 No Longer Active Autumn Barrientos AUGMENTIN 500-125 MG TAB 1 PO BID AMOXICILLIN-POT CLAVULANATE 74358518969 No Longer Active Autumn ROBLEDO'Mj NASAL SPRAY (DEXAMETHASONE, GENTAMICIN, SALINE) 2 puffs each nostril TID for [address] HANLEY NASAL SPRAY (DEXAMETHASONE, GENTAMICIN, SALINE) No Longer Active Autumn Barrientos LOTRISONE 0.05-1 % CREAM Apply BID to affected areas CLOTRIMAZOLE-BETAMETHASONE 63730955016 No Longer Active Autumn Barrientos ACYCLOVIR 800 MG TABS 1 PO five times a day for 10 days ACYCLOVIR 13268226687 No Longer Active Autumn Barrientos LORTAB 5 5-500 MG TABS 1 to 2 PO Q6hrs prn ACETAMINOPHEN-HYDROCODONE 69149001835 No Longer Active Autumn Shira Barrientos VALTREX 1 GM TAB 1 PO BID VALACYCLOVIR HCL 41044810324 No Longer Active Autumn Shira Barrientos NYSTATIN 667690 U/ML SUSP 5cc PO QID for 7 days NYSTATIN 69803442144 No Longer Active Autumn Shira Barrientos DIFLUCAN 100 MG TAB 1 PO daily for five days FLUCONAZOLE 13777890551 No Longer Active Autumn Shira Barrientos MIRALAX POWD 1 scoop in 4oz of water PO daily POLYETHYLENE GLYCOL 3350 64879895476 Active Autumn Shira Barrientos BIAXIN 500 MG TAB 1 PO BID CLARITHROMYCIN 33391149917 No Longer Active Autumn Shira Barrientos MUCINEX 600 MG [id number] 1 po BID prn as needed GUAIFENESIN 91213644426 Active Autumn Shira Barrientos PREDNISONE 10 MG TAB 1 PO daily PREDNISONE 26587016397 No Longer Active Autumn Shira Barrientos ALBUTEROL SULFATE 0.083 % NEBU SOLN 1 Treatment QID ALBUTEROL SULFATE 60563486024 Active Autumn Shira Barrientos DARVOCET-N 100 100-650 MG TAB 1 PO Q4hrs prn pain PROPOXYPHENE N-APAP 71623700555 No Longer Active Autumn Shira Barrientos ASPIRIN 81 MG TAB 1 PO daily ASPIRIN 32107709892 Active Autumn Shira Barrientos COREG 25 MG TABS 1 po BID CARVEDILOL 38021127594 No Longer Active Autumn Shira Barrientos ALDACTONE 25 MG TABS 1/2 po every other day SPIRONOLACTONE 60327741697 No Longer Active Autumn Shira Barrientos CHLORPHENIRAMINE MALEATE 4 MG TABS 1 PO Q6hrs prn for cold CHLORPHENIRAMINE MALEATE 24876208608 No Longer Active Autumn Shirajudy Barrientos PREDNISONE 20 MG TAB 2 pills at once for 3 days then 1 pill daily for 3 days PREDNISONE 69601169722 No Longer Active Autumn Barrientos BIAXIN 500 MG TAB 1 PO BID CLARITHROMYCIN 80979718188 No Longer Active Autumn Shira Barrientos CHLORHEXIDINE GLUCONATE 0.12 % SOLN Rinse mouth 2 times a day CHLORHEXIDINE GLUCONATE 09612414733 Active Autumn Barrientos COUMADIN 5 MG TABS 1 po daily WARFARIN SODIUM 50347704757 No Longer Active Autumn Shira Iliana PHENOBARBITAL 64.8 MG TABS 2 po at HS PHENOBARBITAL 54143762249 Active Briana Alford Immunizations Vaccine Administration Date [...] ng/mL Encounters Code Encounter Date Provider Facility CPT-32537 Ofc Vst, Est Level III 13:33:45 CDT Autumn Barrientos DO, FACP CPT-54601 Ofc Vst, Est Level III 17:12:01 CDT Autumn Barrientos DO, FACP CPT-51077 Ofc Vst, Est Level IV 21:01:56 CDT Autumn Barrientos DO, FACP CPT-25222 Ofc Vst, Est Level III 15:48:19 CROZER Autumn Becerril Barrientos, DO, FACP CPT-86348 Ofc Vst, Est Level IV 15:01:25 CROZER Autumn Becerril Barrientos, DO, FACP CPT-43794 Ofc Vst, Est Level III 16:54:20 CROZER Autumn Becerril Barrientos, DO, FACP CPT-07212 Ofc Vst, Est Level III 19:49:29 CDT Autumn Shira Becerril Barrientos, DO, FACP CPT-84953 Ofc Vst, Est Level III 19:25:35 CDT Autumn Shira Becerril Barrientos, DO, FACP CPT-08110 Ofc Vst, Est Level III 19:01:53 CDT Autumnnicole Becerril Barrientos, DO, FACP CPT-89442 Ofc Vst, Est Level III 16:32:38 CROZER Autumn Becerril Barrientos, DO, FACP CPT-87316 Ofc Vst, Est Level III 15:37:57 [facility]ER Autumn Barrientos [facility] CPT-90844 Ofc Vst, Est Level III 12:03:55 CROZER Autumn Becerril Barrientos, DO, FACP CPT-92329 Ofc Vst, Est Level III 15:47:39 CDT Autumn Shira Becerril Barrientos, DO, FACP CPT-25495 Ofc Vst, Est Level III 16:50:03 CDT Autumn Shira Loyolai Mj Barrientos, DO, FACP CPT-05497 Ofc Vst, Est Level III 16:44:49 CDT Autumnnicole Becerril Barrientos, DO, FACP CPT-95909 Ofc Vst, Est Level III 12:02:26 CDT Autumnnicole Becerril Barrientos, DO, FACP CPT-32041 Ofc Vst, Est Level III 16:20:59 CDT Autumn Shira Becerril Barrientos, DO, FACP CPT-16529 Ofc Vst, Est Level III 11:47:46 CDT [facility]ole [facility] CPT-65816 Ofc Vst, Est Level III 15:01:40 CDT Autumn Shira Becerril Barrientos, DO, FACP CPT-75128 Ofc Vst, Est Level III 15:21:49 CDT Autumn Shira Becerril Barrientos, DO, FACP CPT-61325 Ofc Vst, Est Level III 11:46:40 CROZER Autumn Becerril Barrientos, DO, FACP CPT-20011 Ofc Vst, Est Level III 16:04:08 CROZER Autumn Becerril Barrientos, DO, FACP CPT-08769 Ofc Vst, Est Level III 12:47:46 CROZER Autumn Becerril Barrientos, DO, FACP CPT-68280 Ofc Vst, Est Level III 14:12:37 CROZER Autumn Becerril Barrientos, DO, FACP CPT-26224 Ofc Vst, Est Level III 20:15:48 CDT Autumnnicole Becerril Barrientos, DO, FACP CPT-78735 Ofc Vst, Est Level III 14:50:03 CDT Autumn Shira Becerril Barrientos, DO, FACP CPT-20513 Ofc Vst, Est Level IV 11:07:07 CDT Autumn Shira Becerril Barrientos, DO, FACP CPT-82046 Ofc Vst, Est Level IV 10:56:03 CROZER Autumn Becerril Barrientos, DO, FACP CPT-37043 Ofc Vst, Est Level III 10:34:42 CROZER Autumn Becerril Barrientos, DO, FACP CPT-32465 Ofc Vst, Est Level IV 11:18:10 CROZER Autumn Becerril Barrientos, DO, FACP CPT-59414 Ofc Vst, Est Level III 10:56:32 CDT Autumnnicole Becerril Barrientos, DO, FACP CPT-29002 Ofc Vst, Est Level IV 11:11:23 CDT Autumn Shira Becerril Barrientos, DO, FACP CPT-97046 Ofc Vst, Est Level IV 11:24:11 CDT Autumnnicole Becerril Barrientos, DO, FACP CPT-32985 Ofc Vst, Est Level III 11:36:54 CDT Autumnnicole Becerril Barrientos, DO, FACP CPT-22742 Ofc Vst, Est Level V 15:07:54 CDT Autumnnicole Becerril Barrientos, DO, FACP CPT-24568 Ofc Vst, Est Level III 16:05:11 CDT Autumn Becerril Barrientos, DO, FACP CPT-88424 Ofc Vst, Est Level IV 11:19:33 CDT Autumnnicole Becerril Barrientos, DO, FACP CPT-66538 Ofc Vst, Est Level III 11:16:56 CROZER Autumn Becerril Barrientos, DO, FACP CPT-17452 Ofc Vst, Est Level IV 11:12:37 CROZER Autumn Becerril Barrientos, DO, FACP CPT-35430 Ofc Vst, Est Level IV 15:21:42 CR[facility]ER Autumn Barrientos [facility] CPT-79817 Ofc Vst, Est Level IV 10:49:32 CROZER Autumn Becerril Barrientos, DO, FACP CPT-61199 Ofc Vst, Est Level IV 13:16:00 CDT Autumn Shira Becerril Barrientos, DO, FACP CPT-33273 Ofc Vst, Est Level IV 10:47:17 CDT Autumn Shira Becerril Barrientos, DO, FACP CPT-99818 Ofc Vst, Est Level IV 10:22:32 CDT Autumn Shira Becerril Barrientos, DO, FACP CPT-52856 Ofc Vst, Est Level III 10:35:26 CDT Autumn Shira Becerril Barrientos, DO, FACP CPT-89124 Ofc Vst, Est Level IV 11:29:20 CDT Autumn Shira Becerril Barrientos, DO, FACP CPT-42451 Ofc Vst, Est Level IV 13:52:31 CDT Autumnnicole Becerril Barrientos, DO, FACP CPT-63519 Ofc Vst, Est Level IV 11:41:20 CDT Autumn Shira Becerril Barrientos, DO, FACP CPT-46538 Ofc Vst, Est Level IV 09:38:08 CROZER Autumn Becerril Barrientos, DO, FACP CPT-82974 Ofc Vst, Est Level V 11:02:14 CROZER Autumn Becerril Barrientos, DO, FACP CPT-58161 Ofc Vst, Est Level V 10:30:31 CROZER Autumn Shira Leyva S Barrientos, DO, FACP CPT-33730 Ofc Vst, Est Level IV 11:14:50 CROZER Autumn Leyva S Barrientos, DO, FACP CPT-60035 Ofc Vst, Est Level V 11:06:34 CROZER Autumn Shira Leyva S Barrientos, DO, FACP CPT-70127 Ofc Vst, Est Level IV 11:30:08 CROZER Autumn Becerril Barrientos, DO, FACP CPT-35726 Ofc Vst, Est Level V 11:35:41 CDT Autumn Becerril Barrientos, DO, FACP CPT-39866 Ofc Vst, Est Level IV 10:09:46 CDT Autumn Becerril Barrientos, DO, FACP CPT-61086 Ofc Vst, Est Level V 13:55:27 CDT Autumn Becerril Barrientos, DO, FACP CPT-79837 Ofc Vst, Est Level V 11:20:26 CDT Autumn Becerril Barrientos, DO, FACP CPT-21461 Ofc Vst, New Level IV 16:42:29 CDT Autumn Becerril Barrientos, DO, FACP Procedures Code Procedure Name Date Entry Date Standard Description CPT-G0439 Medicare Annual Wellness Visit 10:22:06 CROZER CPT-G0439 Medicare Annual Wellness Visit 15:50:07 CDT CPT-G8446 E-Prescribing not done due to controlled substance 19:01:53 CDT CPT-G8445 E-Prescribing Not sent due to no medication given 16:32:38 CROZER CPT-G8443 E-Prescribing Medication Sent 15:37:57 CROZER CPT-G8445 E-Prescribing Not sent due to no medication given 12:03:55 CROZER CPT-G8445 E-Prescribing Not sent due to no [...] sent due to no medication given 11:46:40 CROZER CPT-G8443 E-Prescribing Medication Sent 16:04:08 CROZER CPT-G8443 E-Prescribing Medication Sent 12:47:46 CROZER CPT-G8445 E-Prescribing Not sent due to no medication given 14:12:37 CROZER CPT-G8445 E-Prescribing Not sent due to no medication given 12:46:38 CDT CPT-42692 Ear Wax Removal 12:46:38 CDT CPT-G8443 E-Prescribing Medication Sent 20:15:48 CDT CPT-G0438 Medicare Annual Wellness Visit Initial 11:42:23 CDT
--- OUTSIDE RECORDS SUMMARY | 2019-03-13 00:07 | XMS REPORT | Clinical Summary ---
Author Author User, [facility] Organization Autumn Barrientos DO, DUNCANP Address Unknown [...] Coronary atherosclerosis of unspecified type of vessel, lower elwh[place] or graft SEIZURE 780.3 Active Autumn Barrientos [...] MG CAP 1 po BID DOXYCYCLINE HYCLATE [id number] No Longer Active Autumn Barrientos PREDNISONE 10 MG TAB 4 PO at one time once daily for 2 days, then 3 PO at one time once daily for 2 days, and 2 PO at one time once daily for 2 days, and then 1 PO daily for 2 days. PREDNISONE 32234815450 No Longer Active Autumn Barrientos SYNTHROID 0.075 MG TAB 1 PO daily LEVOTHYROXINE SODIUM 38632941730 Active Autumn Barrientos NYSTATIN SUSP 5 ML PO Q 6 HRS NYSTATIN SUSP 95450622678 No Longer Active Autumn Barrientos AMIODARONE HCL 400 MG TABS 1 PO every other day AMIODARONE HCL 92675134787 No Longer Active Autumn Barrientos PREDNISONE 10 MG TABS TAKE 4 TABS PO DAILY X 2 DAYS, THEN 3 PILLS PO DAILY X 2 DAYS, THEN 2 PILLS PO DAILY X 2 DAYS, THEN ONE PILL PO DAILY X 2 DAYS PREDNISONE 83946576289 No Longer Active Autumn Barrientos VITAMIN C 500 MG TABS 2 po daily ASCORBIC ACID 61467349977 No Longer Active Autumn Barrientos HYDROCODONE-ACETAMINOPHEN 5-325 MG TABS 1-2 PO Q4-6 hrs prn pain HYDROCODONE-ACETAMINOPHEN 29231493430 No Longer Active Autumn Barrientos ZOCOR 10 MG TAB 1 PO Daily SIMVASTATIN 35241173722 Active Atuumn Barrientos TRANSDERM-SCOP 1.5 MG PT72 1 patch behind ear and change every 3 days SCOPOLAMINE BASE 99815623407 No Longer Active Autumnnicole Barrientos LISINOPRIL 5 MG TABS 1 po daily LISINOPRIL 54461475232 Active Autumn Shira Barrientos DIGOXIN 0.25 MG TABS 1 PO daily DIGOXIN 20361776772 Active Autumn Shira Barrientos TOPROL XL 25 MG [id number] 2 PO daily METOPROLOL SUCCINATE 30249521157 Active Autumn Shira Barrientos VALIUM 2 MG TAB 1/2 - 1 PO BID prn muscle spasm DIAZEPAM 96318087236 No Longer Active Autumn Shira Barrientos KENALOG 0.1 % CREA apply to affected areas BID TRIAMCINOLONE ACETONIDE No Longer Active Autumnnicole Barrientos PREDNISONE 20 MG TAB 2 pills at once for 2 days then 1 pill daily for 5 days PREDNISONE 00941749152 No Longer Active Autumn Barrientos DOXYCYCLINE HYCLATE 100 MG CAP 1 po BID DOXYCYCLINE HYCLATE 60181998550 No Longer Active Autumnnicole Barrientos CALMOSEPTINE 0.44-20.625 % OINT Apply to affected areas TID prn MENTHOL-ZINC OXIDE 66480471824 Active Autumnnicole Barrientos BIAXIN 500 MG TAB 1 PO BID CLARITHROMYCIN 14472773133 No Longer Active Autumn Barrientos PREDNISONE 20 MG TAB 2 pills at once for 3 days then 1 pill daily for 5 days PREDNISONE 05058673853 No Longer Active Prabha Carmona PREDNISONE 20 MG TAB 2 pills at once for 4 days then 1 pill daily for 4 days PREDNISONE 39326364438 No Longer Active Autumnnicole Barrientos LEVAQUIN 500 MG TAB 1 PO QD LEVOFLOXACIN 01626774960 No Longer Active Autumnnicole Barrientos TYLENOL 325 MG TABS 2 po q 4 hrs prn pain ACETAMINOPHEN 18186857899 No Longer Active Autumn Shira Barrientos CALMOSEPTINE 0.44-20.625 % OINT Apply to affected area QID prn MENTHOL-ZINC OXIDE 51232975416 No Longer Active Autumn Shira Barrientos JANE ALLERGY 180 MG TABS 1 PO daily FEXOFENADINE HCL 78942967685 No Longer Active Autumn Shira Barrientos VALIUM 2 MG TAB 1 PO QHS prn DIAZEPAM 97994636059 No Longer Active Autumn Shira Barrientos FLEXERIL 10 MG TAB 1 PO QHS prn CYCLOBENZAPRINE HCL 45905651714 No Longer Active Autumn Shira Barrientos ANUSOL-HC 2.5 % CREA apply to affected area on rectum TID prn. HYDROCORTISONE 72373259102 No Longer Active Autumnnicole Barrientos LOTRISONE 0.05-1 % CREAM apply to affected areas twice daily CLOTRIMAZOLE-BETAMETHASONE 31338765198 No Longer Active Autumn Shira Barrientos SINGULAIR 10 MG TABS 1 PO QHS MONTELUKAST SODIUM 33710941758 Active Autumnnicole Barrientos PREDNISONE 20 MG TAB 2 pills at once for 3 days then 1 pill daily for 5 days PREDNISONE 68595538657 No Longer Active Autumn Barrientos FUROSEMIDE 40 MG TABS 1 PO every day FUROSEMIDE 66102531925 Active Briana Alford TAMIFLU 75 MG CAPS 1 PO DAILY X 10 DAYS OSELTAMIVIR PHOSPHATE 46284995991 No Longer Active Autumnnicole Barrientos PREDNISONE 20 MG TABS 1 PO DAILY x 7 days then DC PREDNISONE 38345657095 No Longer Active Autumnnicole Barrientos PREDNISONE 20 MG TAB 2 pills at once for 3 days then 1 pill daily for 3 days PREDNISONE 46808770522 No Longer Active Autumn Shira Barrientos DOXYCYCLINE HYCLATE 100 MG CAP 1 po BID DOXYCYCLINE HYCLATE 78880104351 No Longer Active Autumn Barrientos DOCUSATE SODIUM 60 MG/15ML SYRP 2 drops left ear let stand for 5 minutes then rinse. Use daily for 7 days then return to office for flushing of ears DOCUSATE SODIUM 25001084445 No Longer Active Autumn Barrientos PREDNISONE 20 MG TAB 2 pills at once for 3 days then 1 pill daily for 3 days PREDNISONE 55393891597 No Longer Active Autumn Barrientos DOXYCYCLINE HYCLATE 100 MG CAP 1 po BID DOXYCYCLINE HYCLATE 55718675111 No Longer Active Autumn Barrientos MOBIC 15 MG TABS 1 PO daily for knee pain MELOXICAM 40371219733 No Longer Active Autumn Barrientos VITAMIN D 1000 UNIT TABS 2 PO Daily CHOLECALCIFEROL 68581133661 Active Autumn Barrientos DILANTIN 100 MG CAPS 2 PO QAM and 3 PO QPM PHENYTOIN SODIUM EXTENDED 78333461340 Active Briana Alford PLAVIX 75 MG TABS 1 PO every other day CLOPIDOGREL BISULFATE 56237454116 No Longer Active Autumn Barrientos PREDNISONE 20 MG TAB 3 pills daily at once for 2 days, 2 pills daily at once for 2 days, 1 once daily for 2 days PREDNISONE 71669036095 No Longer Active Autumn Barrientos LEVAQUIN 500 MG TAB 1 PO QD LEVOFLOXACIN 29314351218 No Longer Active Autumn Barrientos ZOSTAVAX 66745 UNT/0.65ML SOLR 1 injection once to prevent Shingles ZOSTER VACCINE LIVE 62336293351 No Longer Active Autumn Barrientos SYMBICORT 160-4.5 MCG/ACT AERO 2 puffs twice daily BUDESONIDE-FORMOTEROL FUMARATE 93187173261 Active Briana Alford ATROVENT 0.06 % SOLN 2 puffs each nostril TID prn runny nose IPRATROPIUM BROMIDE 79780876933 No Longer Active Autumn Barrientos PREDNISONE 20 MG TAB 3 pills daily at once for 2 days, 2 pills daily at once for 2 days, 1 once daily for 2 days PREDNISONE 79095645778 No Longer Active Autumnnicole Barrientos BIAXIN 500 MG TAB 1 PO BID CLARITHROMYCIN 59731632525 No Longer Active Autumn Barrientos MOBIC 15 MG TABS 1 po daily MELOXICAM 76824034433 No Longer Active Autumn Barrientos PREDNISONE 20 MG TAB 3 pills daily at once for 2 days, 2 pills daily at once for 2 days, 1 once daily for 2 days PREDNISONE 70168640032 No Longer Active Autumn Barrientos TESSALON 200 MG CAPS 1 PO TID prn cough BENZONATATE 32033893070 No Longer Active Autumn Barrientos AUGMENTIN 500-125 MG TAB 1 PO BID AMOXICILLIN-POT CLAVULANATE 01593297700 No Longer Active Autumn HANLEY NASAL SPRAY (DEXAMETHASONE, GENTAMICIN, SALINE) 2 puffs each nostril TID for [address] HANLEY NASAL SPRAY (DEXAMETHASONE, GENTAMICIN, SALINE) No Longer Active Autumn Barrientos LOTRISONE 0.05-1 % CREAM Apply BID to affected areas CLOTRIMAZOLE-BETAMETHASONE 10002202627 No Longer Active Autumn Barrientos ACYCLOVIR 800 MG TABS 1 PO five times a day for 10 days ACYCLOVIR 90360578563 No Longer Active Autumn Barrientos LORTAB 5 5-500 MG TABS 1 to 2 PO Q6hrs prn ACETAMINOPHEN-HYDROCODONE 60312340147 No Longer Active Autumn Shira Barrientos VALTREX 1 GM TAB 1 PO BID VALACYCLOVIR HCL 03580972337 No Longer Active Autumn Shira Barrientos NYSTATIN 441636 U/ML SUSP 5cc PO QID for 7 days NYSTATIN 42956007132 No Longer Active Autumn Shira Barrientos DIFLUCAN 100 MG TAB 1 PO daily for five days FLUCONAZOLE 22534923376 No Longer Active Autumn Shira Barrientos MIRALAX POWD 1 scoop in 4oz of water PO daily POLYETHYLENE GLYCOL 3350 92383063047 Active Autumn Shira Barrientos BIAXIN 500 MG TAB 1 PO BID CLARITHROMYCIN 76519679966 No Longer Active Autumn Shira Barrientos MUCINEX 600 MG [id number] 1 po BID prn as needed GUAIFENESIN 68280205700 Active Autumn Shira Barrientos PREDNISONE 10 MG TAB 1 PO daily PREDNISONE 71899449554 No Longer Active Autumn Shira Barrientos ALBUTEROL SULFATE 0.083 % NEBU SOLN 1 Treatment QID ALBUTEROL SULFATE 95093996887 Active Autumn Shira Barrientos DARVOCET-N 100 100-650 MG TAB 1 PO Q4hrs prn pain PROPOXYPHENE N-APAP 59608377484 No Longer Active Autumn Shira Barrientos ASPIRIN 81 MG TAB 1 PO daily ASPIRIN 16537760533 Active Autumn Shira Barrientos COREG 25 MG TABS 1 po BID CARVEDILOL 43059875587 No Longer Active Autumn Shira Barrientos ALDACTONE 25 MG TABS 1/2 po every other day SPIRONOLACTONE 50103855649 No Longer Active Autumn Shira Barrientos CHLORPHENIRAMINE MALEATE 4 MG TABS 1 PO Q6hrs prn for cold CHLORPHENIRAMINE MALEATE 48819287869 No Longer Active Autumn Shirajudy Barrientos PREDNISONE 20 MG TAB 2 pills at once for 3 days then 1 pill daily for 3 days PREDNISONE 23499158158 No Longer Active Autumn Barrientos BIAXIN 500 MG TAB 1 PO BID CLARITHROMYCIN 06755494311 No Longer Active Autumn Shira Barrientos CHLORHEXIDINE GLUCONATE 0.12 % SOLN Rinse mouth 2 times a day CHLORHEXIDINE GLUCONATE 48015516283 Active Autumn Shiragabriel Barrientos COUMADIN 5 MG TABS 1 po daily WARFARIN SODIUM 26503094062 No Longer Active Autumn Shira Barrientos PHENOBARBITAL 64.8 MG TABS 2 po at HS PHENOBARBITAL 88922990931 Active Briana Alford Immunizations Vaccine Administration Date [...] Clinical Lists Update: CBC,CMP,CHOL,TRIG,TSH,FREE T4,DILANTIN,,FERRITIN,DIGOXIN - Hematology erythrocyte (RBC) count 3.85 10*6/mm3 platelet count 214 10*3/mm3 hemoglobin, blood 12.3 g/dL hematocrit, blood 39 % red blood cell distribution width 15.8 % mean corpuscular volume, RBC 101 fL leukocyte count, blood 7.7 10*3/mm3 Clinical Lists Update: CBC,CMP,CHOL,TRIG,TSH,FREE T4,DILANTIN,,FERRITIN,DIGOXIN - Toxicology digoxin level, serum 0.8 ng/mL phenytoin level, serum 0.8 ug/mL Clinical Lists Update: CBC,CMP,Chol,Trig,TSH,Digoxin,Dilantin,Ferritin - Chemistry alanine aminotransferase (SGPT), serum 45 U/L bilirubin, serum, total 0.3 mg/dL triglyceride, serum, fasting 121 mg/dL sodium, serum 140 mmol/L anion gap, serum 14 glucose, plasma fasting 89 mg/dL Estimated Glomerular Filtration Rate (calc) 70 mL/min/1.73m2 potassium, serum 4.8 mmol/L ferritin, serum 66.7 ng/mL albumin, serum 3.8 g/dL protein, total, serum 6.7 g/dL aspartate aminotransferase (SGOT), serum 21 U/L creatinine, serum 1.1 mg/dL carbon dioxide, venous blood 31.0 mmol/L cholesterol, serum 146 mg/dL chloride, serum 100 mmol/L calcium, serum 8.7 mg/dL urea nitrogen, blood 15 mg/dL alkaline phosphatase, serum 170 U/L Clinical Lists Update: CBC,CMP,Chol,Trig,TSH,Digoxin,Dilantin,Ferritin - Hematology red blood cell distribution width 15.3 % mean corpuscular volume, RBC 100 fL leukocyte count, blood 5.8 10*3/mm3 erythrocyte (RBC) count 3.93 10*6/mm3 platelet count 214 10*3/mm3 hematocrit, blood 39 % hemoglobin, blood 12.2 g/dL Clinical Lists Update: CBC,CMP,Chol,Trig,TSH,Digoxin,Dilantin,Ferritin - Toxicology digoxin level, serum 0.9 ng/mL phenytoin level, serum 16.4 ug/mL Clinical Lists Update: CBC,CMP,Chol,Trig,TSH,Free T4,Ferritin, Digoxin, Dilantin - Chemistry albumin, serum 4.4 g/dL alkaline phosphatase, serum 175 U/L urea nitrogen, blood 18 mg/dL calcium, serum 9.4 mg/dL chloride, serum 99 mmol/L cholesterol, serum 185 mg/dL carbon dioxide, venous blood 30.0 mmol/L creatinine, serum 1.0 mg/dL ferritin, serum 93.9 ng/mL thyroxine, serum, free 0.88 ng/dL thyroid stimulating hormone, serum 6.49 u[iU]/mL protein, total, serum 7.2 g/dL aspartate aminotransferase (SGOT), serum 20 U/L alanine aminotransferase (SGPT), serum 23 U/L bilirubin, serum, total 0.4 mg/dL triglyceride, serum, fasting 219 mg/dL sodium, serum 137 mmol/L anion gap, serum 13 glucose, plasma fasting 92 mg/dL Estimated Glomerular Filtration Rate (calc) 78 mL/min/1.73m2 potassium, serum 5.0 mmol/L Clinical Lists Update: CBC,CMP,Chol,Trig,TSH,Free T4,Ferritin, Digoxin, Dilantin - Hematology erythrocyte (RBC) count 4.69 10*6/mm3 red blood cell distribution width 14.6 % hematocrit, blood 46 % hemoglobin, blood 14.5 g/dL platelet count 145 10*3/mm3 leukocyte count, blood 7.0 10*3/mm3 mean corpuscular volume, RBC 99 fL Clinical Lists Update: CBC,CMP,Chol,Trig,TSH,Free T4,Ferritin, Digoxin, Dilantin [...] g/dL Clinical Lists Update: CBC,CMP,Dilantin,Digoxin,Ferritin - Hematology red blood cell distribution width 14.5 % mean corpuscular volume, RBC 98 fL leukocyte count, blood 5.2 10*3/mm3 erythrocyte (RBC) count 4.25 10*6/mm3 platelet count 154 10*3/mm3 hematocrit, blood 42 % hemoglobin, blood 13.2 g/dL Clinical Lists Update: CBC,CMP,Dilantin,Digoxin,Ferritin - Toxicology phenytoin level, serum 11.7 ug/mL digoxin level, serum 1.1 ng/mL Clinical Lists Update: CBC,CMP,FLP,TSH,FREE T4,DIGOXIN,DILANTIN,FERRITIN - Chemistry Estimated Glomerular Filtration Rate (calc) 79 mL/min/1.73m2 [...] free 0.74 ng/dL ferritin, serum 92.1 ng/mL creatinine, serum 1.0 mg/dL carbon dioxide, venous blood 30.0 mmol/L cholesterol, serum 181 mg/dL chloride, serum 102 mmol/L calcium, serum 9.3 mg/dL urea nitrogen, blood 24 mg/dL alkaline phosphatase, serum 127 U/L albumin, serum 4.3 g/dL Clinical Lists Update: CBC,CMP,FLP,TSH,FREE T4,DIGOXIN,DILANTIN,FERRITIN - Hematology erythrocyte (RBC) count 3.97 10*6/mm3 red blood cell distribution width 13.5 % hematocrit, blood 38.6 % hemoglobin, blood 12.3 g/dL platelet count 181 10*3/mm3 leukocyte count, blood 6.1 10*3/mm3 mean corpuscular volume, RBC 97 fL Clinical Lists Update: CBC,CMP,FLP,TSH,FREE T4,DIGOXIN,DILANTIN,FERRITIN - Toxicology phenytoin level, serum 11.4 ug/mL digoxin level, serum 0.7 ng/mL Clinical Lists Update: CBC,CMP,UA IN PT LABS - Chemistry chloride, serum 101 mmol/L calcium, serum 8.4 mg/dL urea nitrogen, blood 15 mg/dL alkaline phosphatase, serum 97 U/L albumin, serum 3.1 g/dL carbon dioxide, venous blood 26 mmol/L creatinine, serum 1.12 mg/dL potassium, serum 4.0 mmol/L protein, total, serum 6.1 g/dL glucose, plasma fasting 148 mg/dL sodium, serum 133 mmol/L bilirubin, serum, total 0.3 mg/dL alanine aminotransferase (SGPT), serum 23 U/L Estimated Glomerular Filtration Rate (calc) >60 mL/min/1.73m2 aspartate aminotransferase (SGOT), serum 15 U/L Clinical Lists Update: CBC,CMP,UA IN PT LABS - Hematology hematocrit, blood 32 % hemoglobin, blood 10.6 g/dL platelet count 116 10*3/mm3 erythrocyte (RBC) count 3.37 10*6/mm3 leukocyte count, blood 5.7 10*3/mm3 mean corpuscular volume, RBC 94 fL red blood cell distribution width 14.3 % Clinical Lists Update: CBC,CMP,UA IN PT LABS - Urinalysis blood in urine (hemoglobin) by dipstick 3+ protein, urine, semiquantitative (dipstick) 3+ hyaline casts, urine none /[LPF] bacteria, urine microscopy moderate RBC urine by microscopy 2-5 WBC urine on microscopy 25-50 {Cells}/[HPF] appearance, urine Cloudy Yellow urobilinogen, urine, semiquantitative (dipstick) 1 specific gravity, urine 1.025 pH, urine, semiquantitative 5 nitrite, urine, semiquantitative neg ketones, urine, by test strip neg bilirubin, urine neg glucose, urine, semiquantitative neg mucus on urinalysis neg Clinical Lists Update: CMP,FLP,Digoxin DR [facility] - Chemistry Estimated Glomerular Filtration Rate (calc) 96 mL/min/1.73m2 albumin, serum 4.3 g/dL glucose, plasma fasting 106 mg/dL cholesterol/HDL ratio, [...] 16 mg/dL alkaline phosphatase, serum 170 U/L Clinical Lists Update: CMP,FLP,Digoxin [facility] - Toxicology digoxin level, serum 1.1 ng/mL Clinical Lists Update: CMP,PT,INR,TSH,Digoxin [facility] - Chemistry bilirubin, serum, total 0.4 mg/dL alanine aminotransferase [...] serum 127 U/L albumin, serum 4.2 g/dL Estimated Glomerular Filtration Rate (calc) 92 mL/min/1.73m2 glucose, plasma fasting 100 mg/dL anion gap, serum 12 sodium, serum 139 mmol/L Clinical Lists Update: CMP,PT,INR,TSH,Digoxin [facility] - Coagulation prothrombin time (patient) 12.60 s international normalized ratio (INR) 0.99 Clinical Lists Update: CMP,PT,INR,TSH,Digoxin [facility] - Toxicology digoxin level, serum 0.9 ng/mL Clinical Lists Update: UA - Urinalysis ketones, urine, by test strip neg bilirubin, urine neg glucose, urine, semiquantitative neg nitrite, urine, semiquantitative neg protein, urine, semiquantitative (dipstick) neg specific gravity, urine <1.005 pH, urine, semiquantitative 6.0 Office Visit: Dr Barrientos's Check Up: Established Patient Visit - Chemistry Estimated Glomerular Filtration Rate (calc) 75 mL/min/1.73m2 glucose, plasma fasting 94 mg/dL albumin, serum 4.0 g/dL alkaline phosphatase, serum 138 U/L urea nitrogen, blood 14 mg/dL calcium, serum 8.8 mg/dL chloride, serum 97 mmol/L carbon dioxide, venous blood 29.0 mmol/L creatinine, serum 0.8 mg/dL anion gap, serum 11 sodium, serum 139 mmol/L bilirubin, serum, total 0.4 mg/dL alanine aminotransferase (SGPT), serum 16 U/L aspartate aminotransferase (SGOT), serum 15 U/L protein, total, serum 7.3 g/dL potassium, serum 4.3 mmol/L thyroid stimulating hormone, serum 2.44 u[iU]/mL thyroxine, serum, free 0.87 ng/dL creatinine, serum 1.0 mg/dL carbon dioxide, venous blood 31.0 mmol/L chloride, serum 101 mmol/L calcium, serum 9.1 mg/dL urea nitrogen, blood 22 mg/dL alkaline phosphatase, serum 139 U/L albumin, serum 4.3 g/dL Estimated Glomerular Filtration Rate (calc) 106 mL/min/1.73m2 glucose, plasma fasting 147 mg/dL anion gap, serum 13 sodium, serum 135 mmol/L bilirubin, serum, total 0.4 mg/dL alanine aminotransferase (SGPT), serum 18 U/L aspartate aminotransferase (SGOT), serum 14 U/L protein, total, serum 6.4 g/dL potassium, serum 4.1 mmol/L thyroid stimulating hormone, serum 3.13 u[iU]/mL Office Visit: Dr Barrientos's Check Up: Established Patient Visit - Hematology mean corpuscular volume, RBC 99 fL red blood cell distribution width 15.1 % hematocrit, blood 43 % hemoglobin, blood 13.5 g/dL platelet count 143 10*3/mm3 erythrocyte (RBC) count 4.29 10*6/mm3 leukocyte count, blood 6.4 10*3/mm3 Office Visit: Dr Barrientos's Check Up: Established Patient Visit - Toxicology digoxin level, serum 0.8 ng/mL Encounters Code Encounter Date Provider Facility CPT-88849 Ofc Vst, Est Level III 14:19:06 CDT Autumn ShiraGiuseppe Velezner, DO, FACP CPT-84109 Ofc Vst, Est Level III 13:33:45 CDT Autumn Shira Iliana Barrientos, DO, FACP CPT-08871 Ofc Vst, Est Level III 17:12:01 CDT Autumn Shira Iliana Barrientos, DO, FACP CPT-63852 Ofc Vst, Est Level IV 21:01:56 CDT Autumn Shira Iliana Barrientos, DO, FACP CPT-84413 Ofc Vst, Est Level III 15:48:19 SAFETY SPEC Autumn Shiragabriel Barrientos, DO, FACP CPT-23810 Ofc Vst, Est Level IV 15:01:25 SAFETY SPEC Autumn Barrientos, DO, FACP CPT-05109 Ofc Vst, Est Level III 16:54:20 SAFETY SPEC Autumn Barrientos, DO, FACP CPT-75155 Ofc Vst, Est Level III 19:49:29 CDT Autumn Barrientos, DO, FACP CPT-71554 Ofc Vst, Est Level III 19:25:35 CDT Autumn Barrientos, DO, FACP CPT-48142 Ofc Vst, Est Level III 19:01:53 CDT Autumn Barrientos, DO, FACP CPT-34896 Ofc Vst, Est Level III 16:32:38 SAFETY SPEC Autumn Barrientos, DO, FACP CPT-26499 Ofc Vst, Est Level III 15:37:57 SAFETY SPEC Autumn Barrientos [facility] CPT-48883 Ofc Vst, Est Level III 12:03:55 SAFETY SPEC Autumnnicole Becerril Barrientos, DO, FACP CPT-37949 Ofc Vst, Est Level III 15:47:39 CDT Autumn Shira Becerril Barrientos, DO, FACP CPT-39933 Ofc Vst, Est Level III 16:50:03 CDT Autumn Shira Becerril Barrientos, DO, FACP CPT-22719 Ofc Vst, Est Level III 16:44:49 CDT Autumn Shira Becerril Barrientos, DO, FACP CPT-58353 Ofc Vst, Est Level III 12:02:26 CDT Autumnnicole Becerril Barrientos, DO, FACP CPT-92458 Ofc Vst, Est Level III 16:20:59 CDT Autumnnicole Becerril Barrientos, DO, FACP CPT-81919 Ofc Vst, Est Level III 11:47:46 CDT Autumnnicole Barrientos [facility] CPT-15479 Ofc Vst, Est Level III 15:01:40 CDT Autumnnicole Becerril Barrientos, DO, FACP CPT-21995 Ofc Vst, Est Level III 15:21:49 CDT Autumnnicole Becerril Barrientos, DO, FACP CPT-47585 Ofc Vst, Est Level III 11:46:40 SAFETY SPEC Autumn Becerril Barrientos, DO, FACP CPT-96069 Ofc Vst, Est Level III 16:04:08 SAFETY SPEC Autumn Leyva S Barrientos, DO, FACP CPT-93698 Ofc Vst, Est Level III 12:47:46 SAFETY SPEC Autumn Shira Becerril Barrientos, DO, FACP CPT-18028 Ofc Vst, Est Level III 14:12:37 SAFETY SPEC Autumn Becerril Barrientos, DO, FACP CPT-91069 Ofc Vst, Est Level III 20:15:48 CDT Autumn Becerril Barrientos, DO, FACP CPT-92825 Ofc Vst, Est Level III 14:50:03 CDT Autumn Shira Becerril Barrientos, DO, FACP CPT-85100 Ofc Vst, Est Level IV 11:07:07 CDT Autumnnicole Becerril Iliana, DO, FACP CPT-34806 Ofc Vst, Est Level IV 10:56:03 SAFETY SPEC Autumn Becerril Ilinaa, DO, FACP CPT-38336 Ofc Vst, Est Level III 10:34:42 SAFETY SPEC Autumn Becerril Iliana, DO, FACP CPT-15398 Ofc Vst, Est Level IV 11:18:10 SAFETY SPEC Autumn Becerril Iliana, DO, FACP CPT-55335 Ofc Vst, Est Level III 10:56:32 CDT Autumn Becerril Barrientos, DO, FACP CPT-44408 Ofc Vst, Est Level IV 11:11:23 CDT Autumnnicole Becerril Iliana, DO, FACP CPT-77255 Ofc Vst, Est Level IV 11:24:11 CDT Autumnnicole Becerril Barrientos, DO, FACP CPT-49131 Ofc Vst, Est Level III 11:36:54 CDT Autumn Becerril Barrientos, DO, FACP CPT-37146 Ofc Vst, Est Level V 15:07:54 CDT Autumnnicole Becerril Iliana, DO, FACP CPT-03033 Ofc Vst, Est Level III 16:05:11 CDT Autumnnicole Becerril Barrienots, DO, FACP CPT-82457 Ofc Vst, Est Level IV 11:19:33 CDT Autumn Shira Becerril Barrientos, DO, FACP CPT-05111 Ofc Vst, Est Level III 11:16:56 SAFETY SPEC Autumnnicole Becerril Barrientos, DO, FACP CPT-88382 Ofc Vst, Est Level IV 11:12:37 SAFETY SPEC Autumn Becerril Barrientos, DO, FACP CPT-50719 Ofc Vst, Est Level IV 15:21:42 SAFETY SPEC Autumn [facility] OFFICE CPT-66984 Ofc Vst, Est Level IV 10:49:32 SAFETY SPEC Autumn Shira Becerril Barrientos, DO, FACP CPT-90874 Ofc Vst, Est Level IV 13:16:00 CDT Autumnnicole Becerril Barrientos, DO, FACP CPT-00389 Ofc Vst, Est Level IV 10:47:17 CDT Autumn Shira Becerril Barrientos, DO, FACP CPT-45002 Ofc Vst, Est Level IV 10:22:32 CDT Autumnnicole Becerril Barrientos, DO, FACP CPT-88922 Ofc Vst, Est Level III 10:35:26 CDT Autumn Shira Becerril Barrientos, DO, FACP CPT-19218 Ofc Vst, Est Level IV 11:29:20 CDT Autumn Shira Becerril Barrientos, DO, FACP CPT-23050 Ofc Vst, Est Level IV 13:52:31 CDT Autumn Shira Becerril Barrientos, DO, FACP CPT-74206 Ofc Vst, Est Level IV 11:41:20 CDT Autumn Shira Becerril Barrientos, DO, FACP CPT-66821 Ofc Vst, Est Level IV 09:38:08 SAFETY SPEC Autumn Becerril Barrientos, DO, FACP CPT-02748 Ofc Vst, Est Level V 11:02:14 SAFETY SPEC Autumn Becerril Barrientos, DO, FACP CPT-75430 Ofc Vst, Est Level V 10:30:31 SAFETY SPEC Autumn Becerril Barrientos, DO, FACP CPT-20427 Ofc Vst, Est Level IV 11:14:50 SAFETY SPEC Autumn Becerril Iliana, DO, FACP CPT-59750 Ofc Vst, Est Level V 11:06:34 SAFETY SPEC Autumn Becerril Iliana, DO, FACP CPT-21800 Ofc Vst, Est Level IV 11:30:08 SAFETY SPEC Autumn Becerril Iliana, DO, FACP CPT-78688 Ofc Vst, Est Level V 11:35:41 CDT Autumn Becerril Iliana, DO, FACP CPT-21077 Ofc Vst, Est Level IV 10:09:46 CDT Autumn Becerril Iliana, DO, FACP CPT-61510 Ofc Vst, Est Level V 13:55:27 CDT Autumn Becerril Iliana, DO, FACP CPT-70651 Ofc Vst, Est Level V 11:20:26 CDT Autumn Becerril Iliana, DO, FACP CPT-72570 Ofc Vst, New Level IV 16:42:29 CDT Autumn Becerril Iliana, DO, FACP Procedures Code Procedure Name Date Entry Date Standard Description CPT-G0439 Medicare Annual Wellness Visit 10:22:06 SAFETY SPEC CPT-G0439 Medicare Annual Wellness Visit 15:50:07 CDT CPT-G8446 E-Prescribing not done due to controlled substance 19:01:53 CDT CPT-G8445 E-Prescribing Not sent due to no medication given 16:32:38 SAFETY SPEC CPT-G8443 E-Prescribing Medication Sent 15:37:57 SAFETY SPEC CPT-G8445 E-Prescribing Not sent due to no medication given 12:03:55 SAFETY SPEC CPT-G8445 E-Prescribing Not sent due to no [...] sent due to no medication given 11:46:40 SAFETY SPEC CPT-G8443 E-Prescribing Medication Sent 16:04:08 SAFETY SPEC CPT-G8443 E-Prescribing Medication Sent 12:47:46 SAFETY SPEC CPT-G8445 E-Prescribing Not sent due to no medication given 14:12:37 SAFETY SPEC CPT-G8445 E-Prescribing Not sent due to no medication given 12:46:38 CDT CPT-[id number] Ear Wax Removal 12:46:38 CDT CPT-G8443 E-Prescribing Medication Sent 20:15:48 CDT CPT-G0438 Medicare Annual Wellness Visit Initial 11:42:23 CDT
--- OUTSIDE RECORDS SUMMARY | 2019-03-13 00:08 | XMS REPORT | Clinical Summary ---
Author Author User, [employer] Organization Autumn Barrientos DO, FACP Address Unknown [...] Coronary atherosclerosis of unspecified type of vessel, [place] & [place] or graft SEIZURE 780.3 Active Autumn Barrientos [...] MG CAP 1 po BID DOXYCYCLINE HYCLATE 05367353229 No Longer Active Autumn Barrientos PREDNISONE 10 MG TAB 4 PO at one time once daily for 2 days, then 3 PO at one time once daily for 2 days, and 2 PO at one time once daily for 2 days, and then 1 PO daily for 2 days. PREDNISONE 47455893981 No Longer Active Autumn Barrientos SYNTHROID 0.075 MG TAB 1 PO daily LEVOTHYROXINE SODIUM 23086508643 Active Autumn Barrientos NYSTATIN SUSP 5 ML PO Q 6 HRS NYSTATIN SUSP 81334947723 No Longer Active Autumn Barrientos AMIODARONE HCL 400 MG TABS 1 PO every other day AMIODARONE HCL 47488492493 No Longer Active Autumn Barrientos PREDNISONE 10 MG TABS TAKE 4 TABS PO DAILY X 2 DAYS, THEN 3 PILLS PO DAILY X 2 DAYS, THEN 2 PILLS PO DAILY X 2 DAYS, THEN ONE PILL PO DAILY X 2 DAYS PREDNISONE 61486379649 No Longer Active Autumn Barrientos VITAMIN C 500 MG TABS 2 po daily ASCORBIC ACID 45494711654 No Longer Active Autumn Barrientos HYDROCODONE-ACETAMINOPHEN 5-325 MG TABS 1-2 PO Q4-6 hrs prn pain HYDROCODONE-ACETAMINOPHEN 40149252605 No Longer Active Autumn Barrientos ZOCOR 10 MG TAB 1 PO Daily SIMVASTATIN 25029205818 Active Autumn Barrientos TRANSDERM-SCOP 1.5 MG PT72 1 patch behind ear and change every 3 days SCOPOLAMINE BASE 86115458072 No Longer Active Autumnnicole Barrientos LISINOPRIL 5 MG TABS 1 po daily LISINOPRIL 57270241333 Active Autumn Shira Barrientos DIGOXIN 0.25 MG TABS 1 PO daily DIGOXIN 34064842686 Active Autumn Shira Barrientos TOPROL XL 25 MG [id number] 2 PO daily METOPROLOL SUCCINATE 90337607775 Active Autumn Shira Barrientos VALIUM 2 MG TAB 1/2 - 1 PO BID prn muscle spasm DIAZEPAM 61518525318 No Longer Active Autumn Shira Barrientos KENALOG 0.1 % CREA apply to affected areas BID TRIAMCINOLONE ACETONIDE No Longer Active Autumnnicole Barrientos PREDNISONE 20 MG TAB 2 pills at once for 2 days then 1 pill daily for 5 days PREDNISONE 19450099442 No Longer Active Autumn Barrientos DOXYCYCLINE HYCLATE 100 MG CAP 1 po BID DOXYCYCLINE HYCLATE 16974456011 No Longer Active Autumnnicole Barrientos CALMOSEPTINE 0.44-20.625 % OINT Apply to affected areas TID prn MENTHOL-ZINC OXIDE 67574892743 Active Autumnnicole Barrientos BIAXIN 500 MG TAB 1 PO BID CLARITHROMYCIN 02295009466 No Longer Active Autumn Barrientos PREDNISONE 20 MG TAB 2 pills at once for 3 days then 1 pill daily for 5 days PREDNISONE 22127785607 No Longer Active Prabha Carmona PREDNISONE 20 MG TAB 2 pills at once for 4 days then 1 pill daily for 4 days PREDNISONE 29176779919 No Longer Active Autumnnicole Barrientos LEVAQUIN 500 MG TAB 1 PO QD LEVOFLOXACIN 92725203582 No Longer Active Autumnnicole Barrientos TYLENOL 325 MG TABS 2 po q 4 hrs prn pain ACETAMINOPHEN 49090034384 No Longer Active Autumn Shira Barrientos CALMOSEPTINE 0.44-20.625 % OINT Apply to affected area QID prn MENTHOL-ZINC OXIDE 48116860011 No Longer Active Autumn Shira Barrientos JANE ALLERGY 180 MG TABS 1 PO daily FEXOFENADINE HCL 71382325820 No Longer Active Autumn Shira Barrientos VALIUM 2 MG TAB 1 PO QHS prn DIAZEPAM 96432449855 No Longer Active Autumn Shira Barrientos FLEXERIL 10 MG TAB 1 PO QHS prn CYCLOBENZAPRINE HCL 88715275519 No Longer Active Autumn Shira Barrientos ANUSOL-HC 2.5 % CREA apply to affected area on rectum TID prn. HYDROCORTISONE 88376996984 No Longer Active Autumn Shira Barrientos LOTRISONE 0.05-1 % CREAM apply to affected areas twice daily CLOTRIMAZOLE-BETAMETHASONE 70805085771 No Longer Active Autumn Shira Barrientos SINGULAIR 10 MG TABS 1 PO QHS MONTELUKAST SODIUM 64224752921 Active Autumn Shira Barrientos PREDNISONE 20 MG TAB 2 pills at once for 3 days then 1 pill daily for 5 days PREDNISONE 90387640934 No Longer Active Autumn Shira Barrientos FUROSEMIDE 40 MG TABS 1 PO every day FUROSEMIDE 78662797853 Active Autumn Shira Barrientos TAMIFLU 75 MG CAPS 1 PO DAILY X 10 DAYS OSELTAMIVIR PHOSPHATE 08145215606 No Longer Active Autumn Shira Barrientos PREDNISONE 20 MG TABS 1 PO DAILY x 7 days then DC PREDNISONE 80209464903 No Longer Active Autumn Shira Barrientos PREDNISONE 20 MG TAB 2 pills at once for 3 days then 1 pill daily for 3 days PREDNISONE 83754422775 No Longer Active Autumn Shira Barrientos DOXYCYCLINE HYCLATE 100 MG CAP 1 po BID DOXYCYCLINE HYCLATE 21992965095 No Longer Active Autumn Barrientos DOCUSATE SODIUM 60 MG/15ML SYRP 2 drops left ear let stand for 5 minutes then rinse. Use daily for 7 days then return to office for flushing of ears DOCUSATE SODIUM 96051480580 No Longer Active Autumn Barrientos PREDNISONE 20 MG TAB 2 pills at once for 3 days then 1 pill daily for 3 days PREDNISONE 31855600716 No Longer Active Autumn Barrientos DOXYCYCLINE HYCLATE 100 MG CAP 1 po BID DOXYCYCLINE HYCLATE 29972883907 No Longer Active Autumn Barrientos MOBIC 15 MG TABS 1 PO daily for knee pain MELOXICAM 48582778982 No Longer Active Autumn Barrientos VITAMIN D 1000 UNIT TABS 2 PO Daily CHOLECALCIFEROL 40783787503 Active Autumn Barrientos DILANTIN 100 MG CAPS 2 PO QAM and 3 PO QPM PHENYTOIN SODIUM EXTENDED 23138583828 Active Briana Alford PLAVIX 75 MG TABS 1 PO every other day CLOPIDOGREL BISULFATE 66372117263 No Longer Active Autumn Barrientos PREDNISONE 20 MG TAB 3 pills daily at once for 2 days, 2 pills daily at once for 2 days, 1 once daily for 2 days PREDNISONE 96585246271 No Longer Active Autumn Barrientos LEVAQUIN 500 MG TAB 1 PO QD LEVOFLOXACIN 61547911616 No Longer Active Autumn Barrientos ZOSTAVAX 86023 UNT/0.65ML SOLR 1 injection once to prevent Shingles ZOSTER VACCINE LIVE 83641218410 No Longer Active Autumn Barrientos SYMBICORT 160-4.5 MCG/ACT AERO 2 puffs twice daily BUDESONIDE-FORMOTEROL FUMARATE 26704810380 Active Briana Alford ATROVENT 0.06 % SOLN 2 puffs each nostril TID prn runny nose IPRATROPIUM BROMIDE 88669648381 No Longer Active Autumn Barrientos PREDNISONE 20 MG TAB 3 pills daily at once for 2 days, 2 pills daily at once for 2 days, 1 once daily for 2 days PREDNISONE 67645794353 No Longer Active Autumn Barrientos BIAXIN 500 MG TAB 1 PO BID CLARITHROMYCIN 13178463188 No Longer Active Autumn Barrientos MOBIC 15 MG TABS 1 po daily MELOXICAM 96391456476 No Longer Active Autumn Barrientos PREDNISONE 20 MG TAB 3 pills daily at once for 2 days, 2 pills daily at once for 2 days, 1 once daily for 2 days PREDNISONE 14284830307 No Longer Active Autumn Barrientos TESSALON 200 MG CAPS 1 PO TID prn cough BENZONATATE 02505608564 No Longer Active Autumn Barrientos AUGMENTIN 500-125 MG TAB 1 PO BID AMOXICILLIN-POT CLAVULANATE 93087146727 No Longer Active Autumn ROBLEDO'Jone NASAL SPRAY (DEXAMETHASONE, GENTAMICIN, SALINE) 2 puffs each nostril TID for [address] HANLEY NASAL SPRAY (DEXAMETHASONE, GENTAMICIN, SALINE) No Longer Active Autumn Barrientos LOTRISONE 0.05-1 % CREAM Apply BID to affected areas CLOTRIMAZOLE-BETAMETHASONE 46984530014 No Longer Active Autumn Barrientos ACYCLOVIR 800 MG TABS 1 PO five times a day for 10 days ACYCLOVIR 12892227517 No Longer Active Autumn Barrientos LORTAB 5 5-500 MG TABS 1 to 2 PO Q6hrs prn ACETAMINOPHEN-HYDROCODONE 30954055029 No Longer Active Autumn Shira Barrientos VALTREX 1 GM TAB 1 PO BID VALACYCLOVIR HCL 18090718297 No Longer Active Autumn Shira Barrientos NYSTATIN 481814 U/ML SUSP 5cc PO QID for 7 days NYSTATIN 21488591630 No Longer Active Autumn Shira Barrientos DIFLUCAN 100 MG TAB 1 PO daily for five days FLUCONAZOLE 50581655981 No Longer Active Autumn Shira Barrientos MIRALAX POWD 1 scoop in 4oz of water PO daily POLYETHYLENE GLYCOL 3350 16186351603 Active Autumn Shira Barrientos BIAXIN 500 MG TAB 1 PO BID CLARITHROMYCIN 79012037927 No Longer Active Autumn Shira Barrientos MUCINEX 600 MG [id number] 1 po BID prn as needed GUAIFENESIN 66294862045 Active Autumn Shira Barrientos PREDNISONE 10 MG TAB 1 PO daily PREDNISONE 01917183122 No Longer Active Autumn Shira Barrientos ALBUTEROL SULFATE 0.083 % NEBU SOLN 1 Treatment QID ALBUTEROL SULFATE 79847426943 Active Autumn Shira Barrientos DARVOCET-N 100 100-650 MG TAB 1 PO Q4hrs prn pain PROPOXYPHENE N-APAP 88551706375 No Longer Active Autumn Shira Barrientos ASPIRIN 81 MG TAB 1 PO daily ASPIRIN 19373778611 Active Autumn Shira Barrientos COREG 25 MG TABS 1 po BID CARVEDILOL 71198941397 No Longer Active Autumn Shira Barrientos ALDACTONE 25 MG TABS 1/2 po every other day SPIRONOLACTONE 79994571498 No Longer Active Autumn Shira Barrientos CHLORPHENIRAMINE MALEATE 4 MG TABS 1 PO Q6hrs prn for cold CHLORPHENIRAMINE MALEATE 97113925214 No Longer Active Autumn Shira Barrientos PREDNISONE 20 MG TAB 2 pills at once for 3 days then 1 pill daily for 3 days PREDNISONE 76665601063 No Longer Active Autumn Barrientos BIAXIN 500 MG TAB 1 PO BID CLARITHROMYCIN 61010027634 No Longer Active Autumn Shira Barrientos CHLORHEXIDINE GLUCONATE 0.12 % SOLN Rinse mouth 2 times a day CHLORHEXIDINE GLUCONATE 45911506909 Active Autumn Barrientos COUMADIN 5 MG TABS 1 po daily WARFARIN SODIUM 47638137773 No Longer Active Autumn Shira Barrientos PHENOBARBITAL 64.8 MG TABS 2 po at HS PHENOBARBITAL 06749323764 Active Briana Alford Immunizations Vaccine Administration Date [...] ng/mL Encounters Code Encounter Date Provider Facility CPT-95332 Ofc Vst, Est Level III 14:19:06 CDT Autumnnicole Becerril Barrientos, DO, FACP CPT-30773 Ofc Vst, Est Level III 13:33:45 CDT Autumn Shira Becerril Barrientos, DO, FACP CPT-68664 Ofc Vst, Est Level III 17:12:01 CDT Autumn Shira Becerril Barrientos, DO, FACP CPT-85926 Ofc Vst, Est Level IV 21:01:56 CDT Autumnnicole Becerril Barrientos, DO, FACP CPT-51603 Ofc Vst, Est Level III 15:48:19 [employer] Autumn Becerril Barrientos, DO, FACP CPT-37793 Ofc Vst, Est Level IV 15:01:25 [employer] Autumn Becerril Barrientos, DO, FACP CPT-64199 Ofc Vst, Est Level III 16:54:20 [employer] Autumn Becerril Barrientos, DO, FACP CPT-67169 Ofc Vst, Est Level III 19:49:29 CDT Autumnnicole Becerril Barrientos, DO, FACP CPT-75028 Ofc Vst, Est Level III 19:25:35 CDT Autumn Becerril Barrientos, DO, FACP CPT-61391 Ofc Vst, Est Level III 19:01:53 CDT Autumnnicole Becerril Barrientos, DO, FACP CPT-46880 Ofc Vst, Est Level III 16:32:38 [employer] Autumn Becerril Barrientos, DO, FACP CPT-71220 Ofc Vst, Est Level III 15:37:57 [employer] Autumn Barrientos [facility] CPT-74083 Ofc Vst, Est Level III 12:03:55 [employer] Autumn Becerril Barrientos, DO, FACP CPT-84025 Ofc Vst, Est Level III 15:47:39 CDT Autumn Shira eBcerril Barrientos, DO, FACP CPT-25089 Ofc Vst, Est Level III 16:50:03 CDT Autumn Shira Becerril Barrientos, DO, FACP CPT-73832 Ofc Vst, Est Level III 16:44:49 CDT Autumn Shira Becerril Barrientos, DO, FACP CPT-48903 Ofc Vst, Est Level III 12:02:26 CDT Autumn Shira Becerril Barrientos, DO, FACP CPT-74610 Ofc Vst, Est Level III 16:20:59 CDT Autumn Shira Becerril Barrientos, DO, FACP CPT-01752 Ofc Vst, Est Level III 11:47:46 CDT Autumn Shira [facility] CPT-12795 Ofc Vst, Est Level III 15:01:40 CDT Autumn Shira Becerril Barrientos, DO, FACP CPT-73214 Ofc Vst, Est Level III 15:21:49 CDT Autumn Shira Becerril Barrientos, DO, FACP CPT-51491 Ofc Vst, Est Level III 11:46:40 [employer] Autumn Shira Becerril Barrientos, DO, FACP CPT-75816 Ofc Vst, Est Level III 16:04:08 [employer] Autumn Shira Becerril Barrientos, DO, FACP CPT-81441 Ofc Vst, Est Level III 12:47:46 [employer] Autumn Becerril Barrientos, DO, FACP CPT-58668 Ofc Vst, Est Level III 14:12:37 [employer] Autumn Shira Becerril Barrientos, DO, FACP CPT-49195 Ofc Vst, Est Level III 20:15:48 CDT Autumn Shira Becerril Barrientos, DO, FACP CPT-79656 Ofc Vst, Est Level III 14:50:03 CDT Autumn Shira Becerril Barrientos, DO, FACP CPT-94240 Ofc Vst, Est Level IV 11:07:07 CDT Autumn Shira Becerril Barrientos, DO, FACP CPT-85597 Ofc Vst, Est Level IV 10:56:03 [employer] Autumn Leyva S Barrientos, DO, FACP CPT-47918 Ofc Vst, Est Level III 10:34:42 [employer] Autumn Shira Leyva S Barrientos, DO, FACP CPT-84061 Ofc Vst, Est Level IV 11:18:10 [employer] Autumn Shira Becerril Iliana, DO, FACP CPT-78722 Ofc Vst, Est Level III 10:56:32 CDT Autumn Shira Becerril Iliana, DO, FACP CPT-25031 Ofc Vst, Est Level IV 11:11:23 CDT Autumn Shira Becerril Iliana, DO, FACP CPT-90631 Ofc Vst, Est Level IV 11:24:11 CDT Autumnnicole Becerril Iliana, DO, FACP CPT-92501 Ofc Vst, Est Level III 11:36:54 CDT Autumn Shira Becerril Iliana, DO, FACP CPT-81171 Ofc Vst, Est Level V 15:07:54 CDT Autumn Shira Leyva S Iliana, DO, FACP CPT-74539 Ofc Vst, Est Level III 16:05:11 CDT Autumn Shira Becerril Iliana, DO, FACP CPT-45849 Ofc Vst, Est Level IV 11:19:33 CDT Autumn Becerril Iliana, DO, FACP CPT-96111 Ofc Vst, Est Level III 11:16:56 [employer] Autumn Becerril Barrientos, DO, FACP CPT-06491 Ofc Vst, Est Level IV 11:12:37 [employer] Autumn Becerril Barrientos, DO, FACP CPT-12015 Ofc Vst, Est Level IV 15:21:42 [employer] Autumn Barrientos [facility] CPT-88252 Ofc Vst, Est Level IV 10:49:32 [employer] W[employer] Autumn Becerril Iliana, DO, FACP CPT-44087 Ofc Vst, Est Level IV 13:16:00 CDT Autumn Becerril Iliana, DO, FACP CPT-02210 Ofc Vst, Est Level IV 10:47:17 CDT Autumnnicole Becerril Iliana, DO, FACP CPT-84579 Ofc Vst, Est Level IV 10:22:32 CDT Autumnnicole Becerril Iliana, DO, FACP CPT-45081 Ofc Vst, Est Level III 10:35:26 CDT Autumn Becerril Iliana, DO, FACP CPT-38514 Ofc Vst, Est Level IV 11:29:20 CDT Autumnnicole Becerril Iliana, DO, FACP CPT-91991 Ofc Vst, Est Level IV 13:52:31 CDT Autumn Shira Becerril Iliana, DO, FACP CPT-37729 Ofc Vst, Est Level IV 11:41:20 CDT Autumn Becerril Iliana, DO, FACP CPT-70421 Ofc Vst, Est Level IV 09:38:08 [employer] Autumn Becerril Iliana, DO, FACP CPT-62564 Ofc Vst, Est Level V 11:02:14 [employer] W[employer] Autumn Becerril Barrientos, DO, FACP CPT-74369 Ofc Vst, Est Level V 10:30:31 [employer] W[employer] Autumn Becerril Barrientos, DO, FACP CPT-33141 Ofc Vst, Est Level IV 11:14:50 [employer] W[employer] Autumn Becerril Barrientos, DO, FACP CPT-35577 Ofc Vst, Est Level V 11:06:34 [employer] W[employer] Autumn Becerril Barrientos, DO, FACP CPT-89476 Ofc Vst, Est Level IV 11:30:08 [employer] W[employer] Autumn Becerril Barrientos, DO, FACP CPT-02068 Ofc Vst, Est Level V 11:35:41 CDT Autumn Becerril Iliana, DO, FACP CPT-43170 Ofc Vst, Est Level IV 10:09:46 CDT Autumnnicole Becerril Barrientos, DO, FACP CPT-76325 Ofc Vst, Est Level V 13:55:27 CDT Autumn Becerril Barrientos, DO, FACP CPT-29385 Ofc Vst, Est Level V 11:20:26 CDT Autumn Becerril Iliana, DO, FACP CPT-42877 Ofc Vst, New Level IV 16:42:29 CDT Autumn Becerril Barrientos, DO, FACP Procedures Code Procedure Name Date Entry Date Standard Description CPT-G0439 Medicare Annual Wellness Visit 10:22:06 [employer] CPT-G0439 Medicare Annual Wellness Visit 15:50:07 CDT CPT-G8446 E-Prescribing not done due to controlled substance 19:01:53 CDT CPT-G8445 E-Prescribing Not sent due to no medication given 16:32:38 [employer] CPT-G8443 E-Prescribing Medication Sent 15:37:57 [employer] CPT-G8445 E-Prescribing Not sent due to no medication given 12:03:55 [employer] CPT-G8445 E-Prescribing Not sent due to no [...] sent due to no medication given 11:46:40 [employer] CPT-G8443 E-Prescribing Medication Sent 16:04:08 [employer] CPT-G8443 E-Prescribing Medication Sent 12:47:46 [employer] CPT-G8445 E-Prescribing Not sent due to no medication given 14:12:37 [employer] CPT-G8445 E-Prescribing Not sent due to no medication given 12:46:38 CDT CPT-97894 Ear Wax Removal 12:46:38 CDT CPT-G8443 E-Prescribing Medication Sent 20:15:48 CDT CPT-G0438 Medicare Annual Wellness Visit Initial 11:42:23 CDT
--- OUTSIDE RECORDS SUMMARY | 2019-03-13 00:09 | XMS REPORT | Clinical Summary ---
Author Author User, [employer] Organization Autumn Barrientos DO, DUNCANP Address Unknown [...] Coronary atherosclerosis of unspecified type of vessel, [place] or graft SEIZURE 780.3 Active Autumn Barrientos [...] and respiratory abnormality TORTICOLLIS 723.5 Resolved Autumn Barirentos Torticollis, unspecified HERPES ZOSTER 053.9 Resolved Autumn [...] MG CAP 1 po BID DOXYCYCLINE HYCLATE 22233059505 No Longer Active Autumn Barrientos PREDNISONE 10 MG TAB 4 PO at one time once daily for 2 days, then 3 PO at one time once daily for 2 days, and 2 PO at one time once daily for 2 days, and then 1 PO daily for 2 days. PREDNISONE 29869768138 No Longer Active Autumn Barrientos SYNTHROID 0.075 MG TAB 1 PO daily LEVOTHYROXINE SODIUM 84053771324 Active Autumn Barrientos NYSTATIN SUSP 5 ML PO Q 6 HRS NYSTATIN SUSP 17342246388 No Longer Active Autumn Barrientos AMIODARONE HCL 400 MG TABS 1 PO every other day AMIODARONE HCL 88214198432 No Longer Active Autumn Barrientos PREDNISONE 10 MG TABS TAKE 4 TABS PO DAILY X 2 DAYS, THEN 3 PILLS PO DAILY X 2 DAYS, THEN 2 PILLS PO DAILY X 2 DAYS, THEN ONE PILL PO DAILY X 2 DAYS PREDNISONE 30678812211 No Longer Active Autumn Barrientos VITAMIN C 500 MG TABS 2 po daily ASCORBIC ACID 33101762486 No Longer Active Autumn Barrientos HYDROCODONE-ACETAMINOPHEN 5-325 MG TABS 1-2 PO Q4-6 hrs prn pain HYDROCODONE-ACETAMINOPHEN 66281201758 No Longer Active Autumn Barrientos ZOCOR 10 MG TAB 1 PO Daily SIMVASTATIN 84584062326 Active Autumn Barrientos TRANSDERM-SCOP 1.5 MG PT72 1 patch behind ear and change every 3 days SCOPOLAMINE BASE 11953146290 No Longer Active Autumnnicole Barrientos LISINOPRIL 5 MG TABS 1 po daily LISINOPRIL 65280894579 Active Autumn Shira Barrientos DIGOXIN 0.25 MG TABS 1 PO daily DIGOXIN 10926826125 Active Autumn Shira Barrientos TOPROL XL 25 MG [id number] 2 PO daily METOPROLOL SUCCINATE 37896709443 Active Autumn Shira Barrientos VALIUM 2 MG TAB 1/2 - 1 PO BID prn muscle spasm DIAZEPAM 49896110491 No Longer Active Autumn Shira Barrientos KENALOG 0.1 % CREA apply to affected areas BID TRIAMCINOLONE ACETONIDE No Longer Active Autumnnicole Barrientos PREDNISONE 20 MG TAB 2 pills at once for 2 days then 1 pill daily for 5 days PREDNISONE 99640156125 No Longer Active Autumn Barrientos DOXYCYCLINE HYCLATE 100 MG CAP 1 po BID DOXYCYCLINE HYCLATE 10030480745 No Longer Active Autumnnicole Barrientos CALMOSEPTINE 0.44-20.625 % OINT Apply to affected areas TID prn MENTHOL-ZINC OXIDE 18188843893 Active Autumnnicole Barrientos BIAXIN 500 MG TAB 1 PO BID CLARITHROMYCIN 17632217252 No Longer Active Autumn Barrientos PREDNISONE 20 MG TAB 2 pills at once for 3 days then 1 pill daily for 5 days PREDNISONE 43977411305 No Longer Active Prabha Carmona PREDNISONE 20 MG TAB 2 pills at once for 4 days then 1 pill daily for 4 days PREDNISONE 81894606001 No Longer Active Autumnnicole Barrientos LEVAQUIN 500 MG TAB 1 PO QD LEVOFLOXACIN 41495984432 No Longer Active Autumnnicole Barrientos TYLENOL 325 MG TABS 2 po q 4 hrs prn pain ACETAMINOPHEN 98389578567 No Longer Active Autumn Shira Barrientos CALMOSEPTINE 0.44-20.625 % OINT Apply to affected area QID prn MENTHOL-ZINC OXIDE 73305174082 No Longer Active Autumn Shira Barrientos JANE ALLERGY 180 MG TABS 1 PO daily FEXOFENADINE HCL 70625709477 No Longer Active Autumn Shira Barrientos VALIUM 2 MG TAB 1 PO QHS prn DIAZEPAM 59617127210 No Longer Active Autumn Shira Barrientos FLEXERIL 10 MG TAB 1 PO QHS prn CYCLOBENZAPRINE HCL 99281884570 No Longer Active Autumn Shira Barrientos ANUSOL-HC 2.5 % CREA apply to affected area on rectum TID prn. HYDROCORTISONE 01687828049 No Longer Active Autumn Shira Barreintos LOTRISONE 0.05-1 % CREAM apply to affected areas twice daily CLOTRIMAZOLE-BETAMETHASONE 25555489792 No Longer Active Autumn Shira Barrientos SINGULAIR 10 MG TABS 1 PO QHS MONTELUKAST SODIUM 54748063489 Active Autumn Shira Barrientos PREDNISONE 20 MG TAB 2 pills at once for 3 days then 1 pill daily for 5 days PREDNISONE 86718006423 No Longer Active Autumn Shira Barrientos FUROSEMIDE 40 MG TABS 1 PO every day FUROSEMIDE 80804207512 Active Autumn Shira Barrientos TAMIFLU 75 MG CAPS 1 PO DAILY X 10 DAYS OSELTAMIVIR PHOSPHATE 44591534842 No Longer Active Autumn Shira Barrientos PREDNISONE 20 MG TABS 1 PO DAILY x 7 days then DC PREDNISONE 76598896339 No Longer Active Autumn Shira Barrientos PREDNISONE 20 MG TAB 2 pills at once for 3 days then 1 pill daily for 3 days PREDNISONE 42169732421 No Longer Active Autumn Shira Barrientos DOXYCYCLINE HYCLATE 100 MG CAP 1 po BID DOXYCYCLINE HYCLATE 48868027759 No Longer Active Autumn Barrientos DOCUSATE SODIUM 60 MG/15ML SYRP 2 drops left ear let stand for 5 minutes then rinse. Use daily for 7 days then return to office for flushing of ears DOCUSATE SODIUM 39763134240 No Longer Active Autumn Barrientos PREDNISONE 20 MG TAB 2 pills at once for 3 days then 1 pill daily for 3 days PREDNISONE 55674944245 No Longer Active Autumn Barrientos DOXYCYCLINE HYCLATE 100 MG CAP 1 po BID DOXYCYCLINE HYCLATE 95122611353 No Longer Active Autumn Barrientos MOBIC 15 MG TABS 1 PO daily for knee pain MELOXICAM 83637340773 No Longer Active Autumn Barrientos VITAMIN D 1000 UNIT TABS 2 PO Daily CHOLECALCIFEROL 98633822339 Active Autumn Barrientos DILANTIN 100 MG CAPS 2 PO QAM and 3 PO QPM PHENYTOIN SODIUM EXTENDED 51605080561 Active Briana Alford PLAVIX 75 MG TABS 1 PO every other day CLOPIDOGREL BISULFATE 40320701011 No Longer Active Autumn Barrientos PREDNISONE 20 MG TAB 3 pills daily at once for 2 days, 2 pills daily at once for 2 days, 1 once daily for 2 days PREDNISONE 67978311453 No Longer Active Autumn Barrientos LEVAQUIN 500 MG TAB 1 PO QD LEVOFLOXACIN 67651998853 No Longer Active Autumn Barrientos ZOSTAVAX 15865 UNT/0.65ML SOLR 1 injection once to prevent Shingles ZOSTER VACCINE LIVE 65627628757 No Longer Active Autumn Barrientos SYMBICORT 160-4.5 MCG/ACT AERO 2 puffs twice daily BUDESONIDE-FORMOTEROL FUMARATE 32983222001 Active Briana Alford ATROVENT 0.06 % SOLN 2 puffs each nostril TID prn runny nose IPRATROPIUM BROMIDE 91023473262 No Longer Active Autumn Barrientos PREDNISONE 20 MG TAB 3 pills daily at once for 2 days, 2 pills daily at once for 2 days, 1 once daily for 2 days PREDNISONE 29657120829 No Longer Active Autumn Barrientos BIAXIN 500 MG TAB 1 PO BID CLARITHROMYCIN 32409972986 No Longer Active Autumn Barrientos MOBIC 15 MG TABS 1 po daily MELOXICAM 52159823453 No Longer Active Autumn Barrientos PREDNISONE 20 MG TAB 3 pills daily at once for 2 days, 2 pills daily at once for 2 days, 1 once daily for 2 days PREDNISONE 54540582828 No Longer Active Autumn Barrientos TESSALON 200 MG CAPS 1 PO TID prn cough BENZONATATE 20751877715 No Longer Active Autumn Barrientos AUGMENTIN 500-125 MG TAB 1 PO BID AMOXICILLIN-POT CLAVULANATE 04630744788 No Longer Active Autumn ROBLEDO'Mj NASAL SPRAY (DEXAMETHASONE, GENTAMICIN, SALINE) 2 puffs each nostril TID for [address] HANLEY NASAL SPRAY (DEXAMETHASONE, GENTAMICIN, SALINE) No Longer Active Autumn Barrientos LOTRISONE 0.05-1 % CREAM Apply BID to affected areas CLOTRIMAZOLE-BETAMETHASONE 63110185721 No Longer Active Autumn Barrientos ACYCLOVIR 800 MG TABS 1 PO five times a day for 10 days ACYCLOVIR 60776888255 No Longer Active Autumn Barrientos LORTAB 5 5-500 MG TABS 1 to 2 PO Q6hrs prn ACETAMINOPHEN-HYDROCODONE 88980172802 No Longer Active Autumn Shira Barrientos VALTREX 1 GM TAB 1 PO BID VALACYCLOVIR HCL 85078054103 No Longer Active Autumn Shira Barrientos NYSTATIN 405302 U/ML SUSP 5cc PO QID for 7 days NYSTATIN 87132764066 No Longer Active Autumn Shira Barrientos DIFLUCAN 100 MG TAB 1 PO daily for five days FLUCONAZOLE 41770610415 No Longer Active Autumn Shira Barrientos MIRALAX POWD 1 scoop in 4oz of water PO daily POLYETHYLENE GLYCOL 3350 58437834734 Active Autumn Shira Barrientos BIAXIN 500 MG TAB 1 PO BID CLARITHROMYCIN 68635982313 No Longer Active Autumn Shira Barrientos MUCINEX 600 MG [id number] 1 po BID prn as needed GUAIFENESIN 37190223936 Active Autumn Shira Barrientos PREDNISONE 10 MG TAB 1 PO daily PREDNISONE 70279697977 No Longer Active Autumn Shira Barrientos ALBUTEROL SULFATE 0.083 % NEBU SOLN 1 Treatment QID ALBUTEROL SULFATE 83470138806 Active Autumn Shira Barrientos DARVOCET-N 100 100-650 MG TAB 1 PO Q4hrs prn pain PROPOXYPHENE N-APAP 21929559202 No Longer Active Autumn Shira Barrientos ASPIRIN 81 MG TAB 1 PO daily ASPIRIN 77659269794 Active Autumn Shira Barrientos COREG 25 MG TABS 1 po BID CARVEDILOL 49278901986 No Longer Active Autumn Shira Barrientos ALDACTONE 25 MG TABS 1/2 po every other day SPIRONOLACTONE 81881333979 No Longer Active Autumn Shira Barrientos CHLORPHENIRAMINE MALEATE 4 MG TABS 1 PO Q6hrs prn for cold CHLORPHENIRAMINE MALEATE 45920127916 No Longer Active Autumn Shirajudy Barrientos PREDNISONE 20 MG TAB 2 pills at once for 3 days then 1 pill daily for 3 days PREDNISONE 73949898379 No Longer Active Autumn Barrientos BIAXIN 500 MG TAB 1 PO BID CLARITHROMYCIN 70136963856 No Longer Active Autumn Shira Barrientos CHLORHEXIDINE GLUCONATE 0.12 % SOLN Rinse mouth 2 times a day CHLORHEXIDINE GLUCONATE 24426485993 Active Autumn Barrientos COUMADIN 5 MG TABS 1 po daily WARFARIN SODIUM 50961372230 No Longer Active Autumn Shira Iliana PHENOBARBITAL 64.8 MG TABS 2 po at HS PHENOBARBITAL 06623607638 Active Briana Alford Immunizations Vaccine Administration Date [...] ng/mL Encounters Code Encounter Date Provider Facility CPT-84423 Ofc Vst, Est Level III 13:33:45 CDT Autumn Barrientos DO, FACP CPT-89694 Ofc Vst, Est Level III 17:12:01 CDT Autumn Barrientos DO, FACP CPT-35289 Ofc Vst, Est Level IV 21:01:56 CDT Autumn Barrientos DO, FACP CPT-58421 Ofc Vst, Est Level III 15:48:[address] [employer]TENA[employer]CE SUPER[employer]OR Autumn Becerril Barrientos, DO, FACP CPT-23987 Ofc Vst, Est Level IV 15:01:[address] [employer]INTENANCE SUPERVISOR Autumn Becerril Barrientos, DO, FACP CPT-14938 Ofc Vst, Est Level III 16:54:[address] MAINTENANCE SUPERVISOR Autumn Becerril Barrientos, DO, FACP CPT-67213 Ofc Vst, Est Level III 19:49:29 CDT Autumn Shira Becerril Barrientos, DO, FACP CPT-88562 Ofc Vst, Est Level III 19:25:35 CDT Autumn Shira Becerril Barrientos, DO, FACP CPT-14721 Ofc Vst, Est Level III 19:01:53 CDT Autumnnicole Becerril Barrientos, DO, FACP CPT-36960 Ofc Vst, Est Level III 16:32:[address] MAINTENANCE SUPERVISOR Autumn Becerril Barrientos, DO, FACP CPT-17380 Ofc Vst, Est Level III 15:37:[address] MAINTENANCE SUPERVISOR Autumn Barrientos AL OFFICE CPT-61542 Ofc Vst, Est Level III 12:03:[address] MAINTENANCE SUPERVISOR Autumn Becerril Barrientos, DO, FACP CPT-82148 Ofc Vst, Est Level III 15:47:39 CDT Autumn Shira Becerril Barrientos, DO, FACP CPT-18011 Ofc Vst, Est Level III 16:50:03 CDT Autumn Shira Loyolai Mj Barrientos, DO, FACP CPT-80694 Ofc Vst, Est Level III 16:44:49 CDT Autumnnicole Becerril Barrientos, DO, FACP CPT-55123 Ofc Vst, Est Level III 12:02:26 CDT Autumnnicole Becerril Barrientos, DO, FACP CPT-04905 Ofc Vst, Est Level III 16:20:59 CDT Autumn Shira Becerril Barrientos, DO, FACP CPT-40192 Ofc Vst, Est Level III 11:47:46 CDT Autumnnicole [facility] OFFICE CPT-13654 Ofc Vst, Est Level III 15:01:40 CDT Autumn Shira Becerril Barrientos, DO, FACP CPT-35191 Ofc Vst, Est Level III 15:21:49 CDT Autumn Shira Becerril Barrientos, DO, FACP CPT-19816 Ofc Vst, Est Level III 11:46:[address] MAINTENANCE SUPERVISOR Autumn Becerril Barrientos, DO, FACP CPT-09213 Ofc Vst, Est Level III 16:04:[address] MAINTENANCE SUPERVISOR Autumn Becerril Barrientos, DO, FACP CPT-19549 Ofc Vst, Est Level III 12:47:[address] MAINTENANCE SUPERVISOR Autumn Becerril Barrientos, DO, FACP CPT-21251 Ofc Vst, Est Level III 14:12:[address] MAINTENANCE SUPERVISOR Autumn Becerril Barrientos, DO, FACP CPT-69288 Ofc Vst, Est Level III 20:15:48 CDT Autumnnicole Becerril Barrientos, DO, FACP CPT-23730 Ofc Vst, Est Level III 14:50:03 CDT Autumn Shira Becerril Barrientos, DO, FACP CPT-40217 Ofc Vst, Est Level IV 11:07:07 CDT Autumn Shira Becerril Barrientos, DO, FACP CPT-61588 Ofc Vst, Est Level IV 10:56:[address] MAINTENANCE SUPERVISOR Autumn Becerril Barrientos, DO, FACP CPT-09685 Ofc Vst, Est Level III 10:34:[address] MAINTENANCE SUPERVISOR Autumn Becerril Barrientos, DO, FACP CPT-54462 Ofc Vst, Est Level IV 11:18:[address] MAINTENANCE SUPERVISOR Autumn Becerril Barrientos, DO, FACP CPT-24685 Ofc Vst, Est Level III 10:56:32 CDT Autumnnicole Becerril Barrientos, DO, FACP CPT-73911 Ofc Vst, Est Level IV 11:11:23 CDT Autumn Shira Becerril Barrientos, DO, FACP CPT-66658 Ofc Vst, Est Level IV 11:24:11 CDT Autumnnicole Becerril Barrientos, DO, FACP CPT-27528 Ofc Vst, Est Level III 11:36:54 CDT Autumnnicole Becerril Barrientos, DO, FACP CPT-37498 Ofc Vst, Est Level V 15:07:54 CDT Autumnnicole Becerril Barrientos, DO, FACP CPT-04901 Ofc Vst, Est Level III 16:05:11 CDT Autumn Becerril Barrientos, DO, FACP CPT-54102 Ofc Vst, Est Level IV 11:19:33 CDT Autumnnicole Becerril Barrientos, DO, FACP CPT-06397 Ofc Vst, Est Level III 11:16:[address] MAINTENANCE SUPERVISOR Autumn Becerril Barrientos, DO, FACP CPT-82341 Ofc Vst, Est Level IV 11:12:[address] MAINTENANCE SUPERVISOR Autumn Becerril Barrientos, DO, FACP CPT-38267 Ofc Vst, Est Level IV 15:21:[address] MAINTENANCE SUPERVISOR Autumn Barrientos AL OFFICE CPT-69767 Ofc Vst, Est Level IV 10:49:[address] MAINTENANCE SUPERVISOR Autumn Becerril Barrientos, DO, FACP CPT-74023 Ofc Vst, Est Level IV 13:16:00 CDT Autumn Shira Becerril Barrientos, DO, FACP CPT-45316 Ofc Vst, Est Level IV 10:47:17 CDT Autumn Shira Becerril Barrientos, DO, FACP CPT-61269 Ofc Vst, Est Level IV 10:22:32 CDT Autumn Shira Becerril Barrientos, DO, FACP CPT-82299 Ofc Vst, Est Level III 10:35:26 CDT Autumn Shira Becerril Barrientos, DO, FACP CPT-69828 Ofc Vst, Est Level IV 11:29:20 CDT Autumn Shira Becerril Barrientos, DO, FACP CPT-56976 Ofc Vst, Est Level IV 13:52:31 CDT Autumnnicole Becerril Barrientos, DO, FACP CPT-28085 Ofc Vst, Est Level IV 11:41:20 CDT Autumn Shira Becerril Barrientos, DO, FACP CPT-04509 Ofc Vst, Est Level IV 09:38:[address] MAINTENANCE SUPERVISOR Autumn Becerril Barrientos, DO, FACP CPT-89957 Ofc Vst, Est Level V 11:02:[address] MAINTENANCE SUPERVISOR Autumn Becerril Barrientos, DO, FACP CPT-05549 Ofc Vst, Est Level V 10:30:[address] MAINTENANCE SUPERVISOR Autumn Shira Leyva S Barrientos, DO, FACP CPT-63444 Ofc Vst, Est Level IV 11:14:[address] MAINTENANCE SUPERVISOR Autumn Leyva S Barrientos, DO, FACP CPT-49402 Ofc Vst, Est Level V 11:06:[address] MAINTENANCE SUPERVISOR Autumn Shira Leyva S Barrientos, DO, FACP CPT-28347 Ofc Vst, Est Level IV 11:30:[address] MAINTENANCE SUPERVISOR Autumn Becerril Barrientos, DO, FACP CPT-23883 Ofc Vst, Est Level V 11:35:41 CDT Autumn Becerril Barrientos, DO, FACP CPT-81074 Ofc Vst, Est Level IV 10:09:46 CDT Autumn Becerril Barrientos, DO, FACP CPT-66057 Ofc Vst, Est Level V 13:55:27 CDT Autumn Becerril Barrientos, DO, FACP CPT-41202 Ofc Vst, Est Level V 11:20:26 CDT Autumn Becerril Barrientos, DO, FACP CPT-77570 Ofc Vst, New Level IV 16:42:29 CDT Autumn Becerril Barrientos, DO, FACP Procedures Code Procedure Name Date Entry Date Standard Description CPT-G0439 Medicare Annual Wellness Visit 10:22:[address] [employer]TENANCE SUPER[employer]OR CPT-G0439 Medicare Annual Wellness Visit 15:50:07 CDT CPT-G8446 E-Prescribing not done due to controlled substance 19:01:53 CDT CPT-G8445 E-Prescribing Not sent due to no medication given 16:32:[address] MAINTENANCE SUPERVISOR CPT-G8443 E-Prescribing Medication Sent 15:37:[address] MAINTENANCE SUPERVISOR CPT-G8445 E-Prescribing Not sent due to no medication given 12:03:[address] MAINTENANCE SUPERVISOR CPT-G8445 E-Prescribing Not sent due to no [...] sent due to no medication given 11:46:[address] MAINTENANCE SUPERVISOR CPT-G8443 E-Prescribing Medication Sent 16:04:[address] MAINTENANCE SUPERVISOR CPT-G8443 E-Prescribing Medication Sent 12:47:[address] MAINTENANCE SUPERVISOR CPT-G8445 E-Prescribing Not sent due to no medication given 14:12:[address] MAINTENANCE SUPERVISOR CPT-G8445 E-Prescribing Not sent due to no medication given 12:46:38 CDT CPT-54394 Ear Wax Removal 12:46:38 CDT CPT-G8443 E-Prescribing Medication Sent 20:15:48 CDT CPT-G0438 Medicare Annual Wellness Visit Initial 11:42:23 CDT
--- OUTSIDE RECORDS SUMMARY | 2019-03-13 00:11 | XMS REPORT | Clinical Summary ---
Author Author User, [email or web address] Organization Autumn Barrientos DO, FACP Address Unknown [...] Coronary atherosclerosis of unspecified type of vessel, habematolel or graft SEIZURE 780.3 Active Autumn Barrientos [...] MG CAP 1 po BID DOXYCYCLINE HYCLATE 01865079677 No Longer Active Autumn Barrientos PREDNISONE 10 MG TAB 4 PO at one time once daily for 2 days, then 3 PO at one time once daily for 2 days, and 2 PO at one time once daily for 2 days, and then 1 PO daily for 2 days. PREDNISONE 71911161775 No Longer Active Autumn Barrientos SYNTHROID 0.075 MG TAB 1 PO daily LEVOTHYROXINE SODIUM 34389493975 Active Autumn Barrientos NYSTATIN SUSP 5 ML PO Q 6 HRS NYSTATIN SUSP 07786886046 No Longer Active Autumn Barrientos AMIODARONE HCL 400 MG TABS 1 PO every other day AMIODARONE HCL 31779706096 No Longer Active Autumn Barrientos PREDNISONE 10 MG TABS TAKE 4 TABS PO DAILY X 2 DAYS, THEN 3 PILLS PO DAILY X 2 DAYS, THEN 2 PILLS PO DAILY X 2 DAYS, THEN ONE PILL PO DAILY X 2 DAYS PREDNISONE 53307771607 No Longer Active Autumn Barrientos VITAMIN C 500 MG TABS 2 po daily ASCORBIC ACID 27938810414 No Longer Active Autumn Barrientos HYDROCODONE-ACETAMINOPHEN 5-325 MG TABS 1-2 PO Q4-6 hrs prn pain HYDROCODONE-ACETAMINOPHEN 21754949768 No Longer Active Autumn Barrientos ZOCOR 10 MG TAB 1 PO Daily SIMVASTATIN 31376050792 Active Autumn Barrientos TRANSDERM-SCOP 1.5 MG PT72 1 patch behind ear and change every 3 days SCOPOLAMINE BASE 40884862534 No Longer Active Autumnnicole Barrientos LISINOPRIL 5 MG TABS 1 po daily LISINOPRIL 97054119007 Active Autumn Shira Barrientos DIGOXIN 0.25 MG TABS 1 PO daily DIGOXIN 92233472857 Active Autumn Shira Barrientos TOPROL XL 25 MG [id number]-JYR 2 PO daily METOPROLOL SUCCINATE 84244514872 Active Autumn Shira Barrientos VALIUM 2 MG TAB 1/2 - 1 PO BID prn muscle spasm DIAZEPAM 83809858497 No Longer Active Autumn Shira Barrientos KENALOG 0.1 % CREA apply to affected areas BID TRIAMCINOLONE ACETONIDE No Longer Active Autumnnicole Barrientos PREDNISONE 20 MG TAB 2 pills at once for 2 days then 1 pill daily for 5 days PREDNISONE 03310597222 No Longer Active Autumn Barrientos DOXYCYCLINE HYCLATE 100 MG CAP 1 po BID DOXYCYCLINE HYCLATE 26342160128 No Longer Active Autumnnicole Barrientos CALMOSEPTINE 0.44-20.625 % OINT Apply to affected areas TID prn MENTHOL-ZINC OXIDE 74364949385 Active Autumnnicole Barrientos BIAXIN 500 MG TAB 1 PO BID CLARITHROMYCIN 37167136242 No Longer Active Autumn Brarientos PREDNISONE 20 MG TAB 2 pills at once for 3 days then 1 pill daily for 5 days PREDNISONE 04311847673 No Longer Active Prabha Carmona PREDNISONE 20 MG TAB 2 pills at once for 4 days then 1 pill daily for 4 days PREDNISONE 47553964881 No Longer Active Autumnnicole Barrientos LEVAQUIN 500 MG TAB 1 PO QD LEVOFLOXACIN 48846003407 No Longer Active Autumnnicole Barrientos TYLENOL 325 MG TABS 2 po q 4 hrs prn pain ACETAMINOPHEN 70226722909 No Longer Active Autumn Shira Barrientos CALMOSEPTINE 0.44-20.625 % OINT Apply to affected area QID prn MENTHOL-ZINC OXIDE 26057556660 No Longer Active Autumn Shira Barrientos JANE ALLERGY 180 MG TABS 1 PO daily FEXOFENADINE HCL 89059396695 No Longer Active Autumn Shira Barrientos VALIUM 2 MG TAB 1 PO QHS prn DIAZEPAM 77134894660 No Longer Active Autumn Shira Barrientos FLEXERIL 10 MG TAB 1 PO QHS prn CYCLOBENZAPRINE HCL 17138788883 No Longer Active Autumn Shira Barrientos ANUSOL-HC 2.5 % CREA apply to affected area on rectum TID prn. HYDROCORTISONE 82461181289 No Longer Active Autumn Shira Barrientos LOTRISONE 0.05-1 % CREAM apply to affected areas twice daily CLOTRIMAZOLE-BETAMETHASONE 41090545288 No Longer Active Autumn Shira Barrientos SINGULAIR 10 MG TABS 1 PO QHS MONTELUKAST SODIUM 15873291988 Active Autumn Shira Barrientos PREDNISONE 20 MG TAB 2 pills at once for 3 days then 1 pill daily for 5 days PREDNISONE 79140440262 No Longer Active Autumn Shira Barrientos FUROSEMIDE 40 MG TABS 1 PO every day FUROSEMIDE 72249307418 Active Autumn Shira Barrientos TAMIFLU 75 MG CAPS 1 PO DAILY X 10 DAYS OSELTAMIVIR PHOSPHATE 64146023586 No Longer Active Autumn Shira Barrientos PREDNISONE 20 MG TABS 1 PO DAILY x 7 days then DC PREDNISONE 90186754706 No Longer Active Autumn Shira Barrientos PREDNISONE 20 MG TAB 2 pills at once for 3 days then 1 pill daily for 3 days PREDNISONE 34015468178 No Longer Active Autumn Shira Barrientos DOXYCYCLINE HYCLATE 100 MG CAP 1 po BID DOXYCYCLINE HYCLATE 98663344216 No Longer Active Autumn Barrientos DOCUSATE SODIUM 60 MG/15ML SYRP 2 drops left ear let stand for 5 minutes then rinse. Use daily for 7 days then return to office for flushing of ears DOCUSATE SODIUM 42239696328 No Longer Active Autumn Barrientos PREDNISONE 20 MG TAB 2 pills at once for 3 days then 1 pill daily for 3 days PREDNISONE 70389430572 No Longer Active Autumn Barrientos DOXYCYCLINE HYCLATE 100 MG CAP 1 po BID DOXYCYCLINE HYCLATE 43328613334 No Longer Active Autumn Barrientos MOBIC 15 MG TABS 1 PO daily for knee pain MELOXICAM 63488869070 No Longer Active Autumn Barrientos VITAMIN D 1000 UNIT TABS 2 PO Daily CHOLECALCIFEROL 21155152401 Active Autumn Barrientos DILANTIN 100 MG CAPS 2 PO QAM and 3 PO QPM PHENYTOIN SODIUM EXTENDED 32996750624 Active Briana Alford PLAVIX 75 MG TABS 1 PO every other day CLOPIDOGREL BISULFATE 34466047473 No Longer Active Autumn Barrientos PREDNISONE 20 MG TAB 3 pills daily at once for 2 days, 2 pills daily at once for 2 days, 1 once daily for 2 days PREDNISONE 91195691243 No Longer Active Autumn Barrientos LEVAQUIN 500 MG TAB 1 PO QD LEVOFLOXACIN 99433750535 No Longer Active Autumn Barrientos ZOSTAVAX 53007 UNT/0.65ML SOLR 1 injection once to prevent Shingles ZOSTER VACCINE LIVE 31734059442 No Longer Active Autumn Barrientos SYMBICORT 160-4.5 MCG/ACT AERO 2 puffs twice daily BUDESONIDE-FORMOTEROL FUMARATE 80321385488 Active Briana Alford ATROVENT 0.06 % SOLN 2 puffs each nostril TID prn runny nose IPRATROPIUM BROMIDE 05230268328 No Longer Active Autumn Barrientos PREDNISONE 20 MG TAB 3 pills daily at once for 2 days, 2 pills daily at once for 2 days, 1 once daily for 2 days PREDNISONE 05684881140 No Longer Active Autumn Barrientos BIAXIN 500 MG TAB 1 PO BID CLARITHROMYCIN 43653188423 No Longer Active Autumn Barrientos MOBIC 15 MG TABS 1 po daily MELOXICAM 82431069996 No Longer Active Autumn Barrientos PREDNISONE 20 MG TAB 3 pills daily at once for 2 days, 2 pills daily at once for 2 days, 1 once daily for 2 days PREDNISONE 34613261246 No Longer Active Autumn Barrientos TESSALON 200 MG CAPS 1 PO TID prn cough BENZONATATE 73117542594 No Longer Active Autumn Barrientos AUGMENTIN 500-125 MG TAB 1 PO BID AMOXICILLIN-POT CLAVULANATE 72101571831 No Longer Active Autumn ROBLEDO'Mj NASAL SPRAY (DEXAMETHASONE, GENTAMICIN, SALINE) 2 puffs each nostril TID for [address] HANLEY NASAL SPRAY (DEXAMETHASONE, GENTAMICIN, SALINE) No Longer Active Autumn Barrientos LOTRISONE 0.05-1 % CREAM Apply BID to affected areas CLOTRIMAZOLE-BETAMETHASONE 44810668271 No Longer Active Autumn Barrientos ACYCLOVIR 800 MG TABS 1 PO five times a day for 10 days ACYCLOVIR 32081751606 No Longer Active Autumn Barrientos LORTAB 5 5-500 MG TABS 1 to 2 PO Q6hrs prn ACETAMINOPHEN-HYDROCODONE 74971551087 No Longer Active Autumn Shira Barrientos VALTREX 1 GM TAB 1 PO BID VALACYCLOVIR HCL 84250783395 No Longer Active Autumn Shira Barrientos NYSTATIN 906159 U/ML SUSP 5cc PO QID for 7 days NYSTATIN 02440969057 No Longer Active Autumn Shira Barrientos DIFLUCAN 100 MG TAB 1 PO daily for five days FLUCONAZOLE 31398827092 No Longer Active Autumn Shira Barrientos MIRALAX POWD 1 scoop in 4oz of water PO daily POLYETHYLENE GLYCOL 3350 55540375089 Active Autumn Shira Barrientos BIAXIN 500 MG TAB 1 PO BID CLARITHROMYCIN 92989255103 No Longer Active Autumn Shira Barrientos MUCINEX 600 MG WI96O-QIF 1 po BID prn as needed GUAIFENESIN 06756221534 Active Autumn Shira Barrientos PREDNISONE 10 MG TAB 1 PO daily PREDNISONE 30720735700 No Longer Active Autumn Shira Barrientos ALBUTEROL SULFATE 0.083 % NEBU SOLN 1 Treatment QID ALBUTEROL SULFATE 18382405435 Active Autumn Shira Barrientos DARVOCET-N 100 100-650 MG TAB 1 PO Q4hrs prn pain PROPOXYPHENE N-APAP 23126477117 No Longer Active Autumn Shira Barrientos ASPIRIN 81 MG TAB 1 PO daily ASPIRIN 43839415799 Active Autumn Shira Barrientos COREG 25 MG TABS 1 po BID CARVEDILOL 99266849570 No Longer Active Autumn Shira Barrientos ALDACTONE 25 MG TABS 1/2 po every other day SPIRONOLACTONE 96767507807 No Longer Active Autumn Shira Barrientos CHLORPHENIRAMINE MALEATE 4 MG TABS 1 PO Q6hrs prn for cold CHLORPHENIRAMINE MALEATE 97942086680 No Longer Active Autumn Shirajudy Barrientos PREDNISONE 20 MG TAB 2 pills at once for 3 days then 1 pill daily for 3 days PREDNISONE 01108001711 No Longer Active Autumn Barrientos BIAXIN 500 MG TAB 1 PO BID CLARITHROMYCIN 88213440990 No Longer Active Autumn Shira Barrientos CHLORHEXIDINE GLUCONATE 0.12 % SOLN Rinse mouth 2 times a day CHLORHEXIDINE GLUCONATE 26575063435 Active Autumn Barrientos COUMADIN 5 MG TABS 1 po daily WARFARIN SODIUM 13905050723 No Longer Active Autumn Shira Iliana PHENOBARBITAL 64.8 MG TABS 2 po at HS PHENOBARBITAL 34279635061 Active Briana Alford Immunizations Vaccine Administration Date [...] ng/mL Encounters Code Encounter Date Provider Facility CPT-86089 Ofc Vst, Est Level III 13:33:45 CDT Autumn Barrientos DO, FACP CPT-69739 Ofc Vst, Est Level III 17:12:01 CDT Autumn Barrientos DO, FACP CPT-48304 Ofc Vst, Est Level IV 21:01:56 CDT Autumn Barrientos DO, FACP CPT-29826 Ofc Vst, Est Level III 15:48:19 SPA EXPERIENCE COORDINATOR Autumn Becerril Barrientos, DO, FACP CPT-43217 Ofc Vst, Est Level IV 15:01:25 SPA EXPERIENCE COORDINATOR Autumn Becerril Barrientos, DO, FACP CPT-30698 Ofc Vst, Est Level III 16:54:20 SPA EXPERIENCE COORDINATOR Autumn Becerril Barrientos, DO, FACP CPT-85717 Ofc Vst, Est Level III 19:49:29 CDT Autumn Shira Becerril Barrientos, DO, FACP CPT-81096 Ofc Vst, Est Level III 19:25:35 CDT Autumn Shira Becerril Barrientos, DO, FACP CPT-43384 Ofc Vst, Est Level III 19:01:53 CDT Autumnnicole Becerril Barrientos, DO, FACP CPT-28100 Ofc Vst, Est Level III 16:32:38 SPA EXPERIENCE COORDINATOR Autumn Becerril Barrientos, DO, FACP CPT-48190 Ofc Vst, Est Level III 15:37:57 SPA EXPERIENCE COORDINATOR Autumn Barrientos AL OFFICE CPT-51135 Ofc Vst, Est Level III 12:03:55 SPA EXPERIENCE COORDINATOR Autumn Becerril Barrientos, DO, FACP CPT-66118 Ofc Vst, Est Level III 15:47:39 CDT Autumn Shira Becerril Barrientos, DO, FACP CPT-50757 Ofc Vst, Est Level III 16:50:03 CDT Autumn Shira Loyolai Mj Barrientos, DO, FACP CPT-46880 Ofc Vst, Est Level III 16:44:49 CDT Autumnnicole Becerril Barrientos, DO, FACP CPT-86857 Ofc Vst, Est Level III 12:02:26 CDT Autumnnicole Becerril Barrientos, DO, FACP CPT-25804 Ofc Vst, Est Level III 16:20:59 CDT Autumn Shira Becerril Barrientos, DO, FACP CPT-24690 Ofc Vst, Est Level III 11:47:46 CDT Autumnnicole [facility] OFFICE CPT-17346 Ofc Vst, Est Level III 15:01:40 CDT Autumn Shira Becerril Barrientos, DO, FACP CPT-10676 Ofc Vst, Est Level III 15:21:49 CDT Autumn Shira Becerril Barrientos, DO, FACP CPT-38889 Ofc Vst, Est Level III 11:46:40 SPA EXPERIENCE COORDINATOR Autumn Becerril Barrientos, DO, FACP CPT-90102 Ofc Vst, Est Level III 16:04:08 SPA EXPERIENCE COORDINATOR Autumn Becerril Barrientos, DO, FACP CPT-05958 Ofc Vst, Est Level III 12:47:46 SPA EXPERIENCE COORDINATOR Autumn Becerril Barrientos, DO, FACP CPT-48035 Ofc Vst, Est Level III 14:12:37 SPA EXPERIENCE COORDINATOR Autumn Becerril Barrientos, DO, FACP CPT-40685 Ofc Vst, Est Level III 20:15:48 CDT Autumnnicole Becerril Barrientos, DO, FACP CPT-18503 Ofc Vst, Est Level III 14:50:03 CDT Autumn Shira Becerril Barrientos, DO, FACP CPT-03862 Ofc Vst, Est Level IV 11:07:07 CDT Autumn Shira Becerril Barrientos, DO, FACP CPT-74922 Ofc Vst, Est Level IV 10:56:03 SPA EXPERIENCE COORDINATOR Autumn Becerril Barrientos, DO, FACP CPT-65240 Ofc Vst, Est Level III 10:34:42 SPA EXPERIENCE COORDINATOR Autumn Becerril Barrientos, DO, FACP CPT-36434 Ofc Vst, Est Level IV 11:18:10 SPA EXPERIENCE COORDINATOR Autumn Becerril Barrientos, DO, FACP CPT-33771 Ofc Vst, Est Level III 10:56:32 CDT Autumnnicole Becerril Barrientos, DO, FACP CPT-54636 Ofc Vst, Est Level IV 11:11:23 CDT Autumn Shira Becerril Barrientos, DO, FACP CPT-38945 Ofc Vst, Est Level IV 11:24:11 CDT Autumnnicole Becerril Barrientos, DO, FACP CPT-54920 Ofc Vst, Est Level III 11:36:54 CDT Autumnnicole Becerril Barrientos, DO, FACP CPT-80826 Ofc Vst, Est Level V 15:07:54 CDT Autumnnicole Becerril Barrientos, DO, FACP CPT-56557 Ofc Vst, Est Level III 16:05:11 CDT Autumn Becerril Barrientos, DO, FACP CPT-53434 Ofc Vst, Est Level IV 11:19:33 CDT Autumnnicole Becerril Barrientos, DO, FACP CPT-41951 Ofc Vst, Est Level III 11:16:56 SPA EXPERIENCE COORDINATOR Autumn Becerril Barrientos, DO, FACP CPT-41296 Ofc Vst, Est Level IV 11:12:37 SPA EXPERIENCE COORDINATOR Autumn Becerril Barrientos, DO, FACP CPT-22571 Ofc Vst, Est Level IV 15:21:42 SPA EXPERIENCE COORDINATOR Autumn Barrientos AL OFFICE CPT-05251 Ofc Vst, Est Level IV 10:49:32 SPA EXPERIENCE COORDINATOR Autumn Becerril Barrientos, DO, FACP CPT-58804 Ofc Vst, Est Level IV 13:16:00 CDT Autumn Shira Becerril Barrientos, DO, FACP CPT-71055 Ofc Vst, Est Level IV 10:47:17 CDT Autumn Shira Becerril Barrientos, DO, FACP CPT-36993 Ofc Vst, Est Level IV 10:22:32 CDT Autumn Shira Becerril Barrientos, DO, FACP CPT-50793 Ofc Vst, Est Level III 10:35:26 CDT Autumn Shira Becerril Barrientos, DO, FACP CPT-53104 Ofc Vst, Est Level IV 11:29:20 CDT Autumn Shira Becerril Barrientos, DO, FACP CPT-65339 Ofc Vst, Est Level IV 13:52:31 CDT Autumnnicole Becerril Barrientos, DO, FACP CPT-39828 Ofc Vst, Est Level IV 11:41:20 CDT Autumn Shira Becerril Barrientos, DO, FACP CPT-29558 Ofc Vst, Est Level IV 09:38:08 SPA EXPERIENCE COORDINATOR Autumn Becerril Barrientos, DO, FACP CPT-28525 Ofc Vst, Est Level V 11:02:14 SPA EXPERIENCE COORDINATOR Autumn Becerril Barrientos, DO, FACP CPT-97114 Ofc Vst, Est Level V 10:30:31 SPA EXPERIENCE COORDINATOR Autumn Shira Leyva S Barrientos, DO, FACP CPT-37952 Ofc Vst, Est Level IV 11:14:50 SPA EXPERIENCE COORDINATOR Autumn Leyva S Barrientos, DO, FACP CPT-02275 Ofc Vst, Est Level V 11:06:34 SPA EXPERIENCE COORDINATOR Autumn Shira Leyva S Barrientos, DO, FACP CPT-17102 Ofc Vst, Est Level IV 11:30:08 SPA EXPERIENCE COORDINATOR Autumn Becerril Barrientos, DO, FACP CPT-43766 Ofc Vst, Est Level V 11:35:41 CDT Autumn Becerril Barrientos, DO, FACP CPT-50723 Ofc Vst, Est Level IV 10:09:46 CDT Autumn Becerril Barrientos, DO, FACP CPT-60627 Ofc Vst, Est Level V 13:55:27 CDT Autumn Becerril Barrientos, DO, FACP CPT-84429 Ofc Vst, Est Level V 11:20:26 CDT Autumn Becerril Barrientos, DO, FACP CPT-29607 Ofc Vst, New Level IV 16:42:29 CDT Atuumn Becerril Barrientos, DO, FACP Procedures Code Procedure Name Date Entry Date Standard Description CPT-G0439 Medicare Annual Wellness Visit 10:22:06 SPA EXPERIENCE COORDINATOR CPT-G0439 Medicare Annual Wellness Visit 15:50:07 CDT CPT-G8446 E-Prescribing not done due to controlled substance 19:01:53 CDT CPT-G8445 E-Prescribing Not sent due to no medication given 16:32:38 SPA EXPERIENCE COORDINATOR CPT-G8443 E-Prescribing Medication Sent 15:37:57 SPA EXPERIENCE COORDINATOR CPT-G8445 E-Prescribing Not sent due to no medication given 12:03:55 SPA EXPERIENCE COORDINATOR CPT-G8445 E-Prescribing Not sent due to [...] sent due to no medication given 11:46:40 SPA EXPERIENCE COORDINATOR CPT-G8443 E-Prescribing Medication Sent 16:04:08 SPA EXPERIENCE COORDINATOR CPT-G8443 E-Prescribing Medication Sent 12:47:46 SPA EXPERIENCE COORDINATOR CPT-G8445 E-Prescribing Not sent due to no medication given 14:12:37 SPA EXPERIENCE COORDINATOR CPT-G8445 E-Prescribing Not sent due to no medication given 12:46:38 CDT CPT-01749 Ear Wax Removal 12:46:38 CDT CPT-G8443 E-Prescribing Medication Sent 20:15:48 CDT CPT-G0438 Medicare Annual Wellness Visit Initial 11:42:23 CDT
--- OUTSIDE RECORDS SUMMARY | 2019-03-13 00:12 | XMS REPORT | Clinical Summary ---
Author Author User, [employer] Organization Autumn Barrientos DO, DUNCANP Address Unknown [...] Coronary atherosclerosis of unspecified type of vessel, [place] or graft SEIZURE 780.3 Active Autumn Barrientos [...] Acute respiratory failure PNEUMONIA 486 Resolved Autumn Brarientos Pneumonia, organism unspecified INFLUENZA W/RESPIRATORY MANIFESTATION NEC [...] MG CAP 1 po BID DOXYCYCLINE HYCLATE 51449680056 No Longer Active Autumn Barrientos PREDNISONE 10 MG TAB 4 PO at one time once daily for 2 days, then 3 PO at one time once daily for 2 days, and 2 PO at one time once daily for 2 days, and then 1 PO daily for 2 days. PREDNISONE 31628160679 No Longer Active Autumn Barrientos SYNTHROID 0.075 MG TAB 1 PO daily LEVOTHYROXINE SODIUM 14109801353 Active Autumn Barrientos NYSTATIN SUSP 5 ML PO Q 6 HRS NYSTATIN SUSP 49486170581 No Longer Active Autumn Barrientos AMIODARONE HCL 400 MG TABS 1 PO every other day AMIODARONE HCL 42191124927 No Longer Active Autumn Barrientos PREDNISONE 10 MG TABS TAKE 4 TABS PO DAILY X 2 DAYS, THEN 3 PILLS PO DAILY X 2 DAYS, THEN 2 PILLS PO DAILY X 2 DAYS, THEN ONE PILL PO DAILY X 2 DAYS PREDNISONE 02042480857 No Longer Active Autumn Barrientos VITAMIN C 500 MG TABS 2 po daily ASCORBIC ACID 79659889650 No Longer Active Autumn Barrientos HYDROCODONE-ACETAMINOPHEN 5-325 MG TABS 1-2 PO Q4-6 hrs prn pain HYDROCODONE-ACETAMINOPHEN 35867833652 No Longer Active Autumn Barrientos ZOCOR 10 MG TAB 1 PO Daily SIMVASTATIN 53668658408 Active Autumn Barrientos TRANSDERM-SCOP 1.5 MG PT72 1 patch behind ear and change every 3 days SCOPOLAMINE BASE 54405253309 No Longer Active Autumnnicole Barrientos LISINOPRIL 5 MG TABS 1 po daily LISINOPRIL 01083756105 Active Autumn Shira Barrientos DIGOXIN 0.25 MG TABS 1 PO daily DIGOXIN 60662028387 Active Autumn Shira Barrientos TOPROL XL 25 MG [id number] 2 PO daily METOPROLOL SUCCINATE 67124991023 Active Autumn Shira Barrientos VALIUM 2 MG TAB 1/2 - 1 PO BID prn muscle spasm DIAZEPAM 50188933868 No Longer Active Autumn Shira Barrientos KENALOG 0.1 % CREA apply to affected areas BID TRIAMCINOLONE ACETONIDE No Longer Active Autumnnicole Barrientos PREDNISONE 20 MG TAB 2 pills at once for 2 days then 1 pill daily for 5 days PREDNISONE 95989930120 No Longer Active Autumn Barrientos DOXYCYCLINE HYCLATE 100 MG CAP 1 po BID DOXYCYCLINE HYCLATE 36017047290 No Longer Active Autumnnicole Barrientos CALMOSEPTINE 0.44-20.625 % OINT Apply to affected areas TID prn MENTHOL-ZINC OXIDE 02635190136 Active Autumnnicole Barrientos BIAXIN 500 MG TAB 1 PO BID CLARITHROMYCIN 28958991730 No Longer Active Autumn Barrientos PREDNISONE 20 MG TAB 2 pills at once for 3 days then 1 pill daily for 5 days PREDNISONE 16934031433 No Longer Active Prabha Carmona PREDNISONE 20 MG TAB 2 pills at once for 4 days then 1 pill daily for 4 days PREDNISONE 41819973816 No Longer Active Autumnnicole Barrientos LEVAQUIN 500 MG TAB 1 PO QD LEVOFLOXACIN 53520745982 No Longer Active Autumnnicole Barrientos TYLENOL 325 MG TABS 2 po q 4 hrs prn pain ACETAMINOPHEN 33545750217 No Longer Active Autumn Shira Barrientos CALMOSEPTINE 0.44-20.625 % OINT Apply to affected area QID prn MENTHOL-ZINC OXIDE 58066489741 No Longer Active Autumn Shira Barrientos JANE ALLERGY 180 MG TABS 1 PO daily FEXOFENADINE HCL 70946755238 No Longer Active Autumn Shira Barrientos VALIUM 2 MG TAB 1 PO QHS prn DIAZEPAM 61489003790 No Longer Active Autumn Shira Barrientos FLEXERIL 10 MG TAB 1 PO QHS prn CYCLOBENZAPRINE HCL 57587836169 No Longer Active Autumn Shira Barrientos ANUSOL-HC 2.5 % CREA apply to affected area on rectum TID prn. HYDROCORTISONE 73360272033 No Longer Active Autumn Shira Barrientos LOTRISONE 0.05-1 % CREAM apply to affected areas twice daily CLOTRIMAZOLE-BETAMETHASONE 12535686893 No Longer Active Autumn Shira Barrientos SINGULAIR 10 MG TABS 1 PO QHS MONTELUKAST SODIUM 19868081968 Active Autumn Shira Barrientos PREDNISONE 20 MG TAB 2 pills at once for 3 days then 1 pill daily for 5 days PREDNISONE 68622526749 No Longer Active Autumn Shira Barrientos FUROSEMIDE 40 MG TABS 1 PO every day FUROSEMIDE 87590178338 Active Autumn Shira Barrientos TAMIFLU 75 MG CAPS 1 PO DAILY X 10 DAYS OSELTAMIVIR PHOSPHATE 75349777832 No Longer Active Autumn Shira Barrientos PREDNISONE 20 MG TABS 1 PO DAILY x 7 days then DC PREDNISONE 65913141653 No Longer Active Autumn Shira Barrientos PREDNISONE 20 MG TAB 2 pills at once for 3 days then 1 pill daily for 3 days PREDNISONE 38178069073 No Longer Active Autumn Shira Barrientos DOXYCYCLINE HYCLATE 100 MG CAP 1 po BID DOXYCYCLINE HYCLATE 35674711944 No Longer Active Autumn Barrientos DOCUSATE SODIUM 60 MG/15ML SYRP 2 drops left ear let stand for 5 minutes then rinse. Use daily for 7 days then return to office for flushing of ears DOCUSATE SODIUM 76925513339 No Longer Active Autumn Barrientos PREDNISONE 20 MG TAB 2 pills at once for 3 days then 1 pill daily for 3 days PREDNISONE 99272073849 No Longer Active Autumn Barrientos DOXYCYCLINE HYCLATE 100 MG CAP 1 po BID DOXYCYCLINE HYCLATE 08453308293 No Longer Active Autumn Barrientos MOBIC 15 MG TABS 1 PO daily for knee pain MELOXICAM 34765931850 No Longer Active Autumn Barrientos VITAMIN D 1000 UNIT TABS 2 PO Daily CHOLECALCIFEROL 12542487612 Active Autumn Barrientos DILANTIN 100 MG CAPS 2 PO QAM and 3 PO QPM PHENYTOIN SODIUM EXTENDED 77513455987 Active Briana Alford PLAVIX 75 MG TABS 1 PO every other day CLOPIDOGREL BISULFATE 09677754120 No Longer Active Autumn Barrientos PREDNISONE 20 MG TAB 3 pills daily at once for 2 days, 2 pills daily at once for 2 days, 1 once daily for 2 days PREDNISONE 99706488287 No Longer Active Autumn Barrientos LEVAQUIN 500 MG TAB 1 PO QD LEVOFLOXACIN 69694991175 No Longer Active Autumn Barrientos ZOSTAVAX 11559 UNT/0.65ML SOLR 1 injection once to prevent Shingles ZOSTER VACCINE LIVE 14822620367 No Longer Active Autumn Barrientos SYMBICORT 160-4.5 MCG/ACT AERO 2 puffs twice daily BUDESONIDE-FORMOTEROL FUMARATE 66760442159 Active Briana Alford ATROVENT 0.06 % SOLN 2 puffs each nostril TID prn runny nose IPRATROPIUM BROMIDE 43171250306 No Longer Active Autumn Barrientos PREDNISONE 20 MG TAB 3 pills daily at once for 2 days, 2 pills daily at once for 2 days, 1 once daily for 2 days PREDNISONE 20617541922 No Longer Active Autumn Barrientos BIAXIN 500 MG TAB 1 PO BID CLARITHROMYCIN 55831148376 No Longer Active Autumn Barrientos MOBIC 15 MG TABS 1 po daily MELOXICAM 78229833433 No Longer Active Autumn Barrientos PREDNISONE 20 MG TAB 3 pills daily at once for 2 days, 2 pills daily at once for 2 days, 1 once daily for 2 days PREDNISONE 29463760389 No Longer Active Autumn Barrientos TESSALON 200 MG CAPS 1 PO TID prn cough BENZONATATE 57099832929 No Longer Active Autumn Barrientos AUGMENTIN 500-125 MG TAB 1 PO BID AMOXICILLIN-POT CLAVULANATE 98446749632 No Longer Active Autumn ROBLEDO'Mj NASAL SPRAY (DEXAMETHASONE, GENTAMICIN, SALINE) 2 puffs each nostril TID for [address] HANLEY NASAL SPRAY (DEXAMETHASONE, GENTAMICIN, SALINE) No Longer Active Autumn Barrientos LOTRISONE 0.05-1 % CREAM Apply BID to affected areas CLOTRIMAZOLE-BETAMETHASONE 29330362451 No Longer Active Autumn Barrientos ACYCLOVIR 800 MG TABS 1 PO five times a day for 10 days ACYCLOVIR 87059890653 No Longer Active Autumn Barrientos LORTAB 5 5-500 MG TABS 1 to 2 PO Q6hrs prn ACETAMINOPHEN-HYDROCODONE 76089395695 No Longer Active Autumn Shira Barrientos VALTREX 1 GM TAB 1 PO BID VALACYCLOVIR HCL 28580444554 No Longer Active Autumn Shira Barrientos NYSTATIN 025340 U/ML SUSP 5cc PO QID for 7 days NYSTATIN 19226111110 No Longer Active Autumn Shira Barrientos DIFLUCAN 100 MG TAB 1 PO daily for five days FLUCONAZOLE 01044353120 No Longer Active Autumn Shira Barrientos MIRALAX POWD 1 scoop in 4oz of water PO daily POLYETHYLENE GLYCOL 3350 58533880447 Active Autumn Shira Barrientos BIAXIN 500 MG TAB 1 PO BID CLARITHROMYCIN 26412374729 No Longer Active Autumn Shira Barrientos MUCINEX 600 MG [id number] 1 po BID prn as needed GUAIFENESIN 59229520573 Active Autumn Shira Barrientos PREDNISONE 10 MG TAB 1 PO daily PREDNISONE 08112518841 No Longer Active Autumn Shira Barrientos ALBUTEROL SULFATE 0.083 % NEBU SOLN 1 Treatment QID ALBUTEROL SULFATE 23919961510 Active Autumn Shira Barrientos DARVOCET-N 100 100-650 MG TAB 1 PO Q4hrs prn pain PROPOXYPHENE N-APAP 57055757228 No Longer Active Autumn Shira Barrientos ASPIRIN 81 MG TAB 1 PO daily ASPIRIN 04147879758 Active Autumn Shira Barrientos COREG 25 MG TABS 1 po BID CARVEDILOL 41253812012 No Longer Active Autumn Shira Barrientos ALDACTONE 25 MG TABS 1/2 po every other day SPIRONOLACTONE 93715311852 No Longer Active Autumn Shira Barrientos CHLORPHENIRAMINE MALEATE 4 MG TABS 1 PO Q6hrs prn for cold CHLORPHENIRAMINE MALEATE 23345934916 No Longer Active Autumn Shirajudy Barrientos PREDNISONE 20 MG TAB 2 pills at once for 3 days then 1 pill daily for 3 days PREDNISONE 72423674050 No Longer Active Autumn Barrientos BIAXIN 500 MG TAB 1 PO BID CLARITHROMYCIN 76662308556 No Longer Active Autumn Shira Barrientos CHLORHEXIDINE GLUCONATE 0.12 % SOLN Rinse mouth 2 times a day CHLORHEXIDINE GLUCONATE 86624020137 Active Autumn Barrientos COUMADIN 5 MG TABS 1 po daily WARFARIN SODIUM 64457876091 No Longer Active Autumn Shira Iliana PHENOBARBITAL 64.8 MG TABS 2 po at HS PHENOBARBITAL 02424190410 Active Briana Alford Immunizations Vaccine Administration Date [...] ng/mL Encounters Code Encounter Date Provider Facility CPT-79794 Ofc Vst, Est Level III 13:33:45 CDT Autumn Barrientos DO, FACP CPT-06578 Ofc Vst, Est Level III 17:12:01 CDT Autumn Barrientos DO, FACP CPT-45783 Ofc Vst, Est Level IV 21:01:56 CDT Autumn Barrientos DO, FACP CPT-51287 Ofc Vst, Est Level III 15:48:19 IMMUNOPATHOLOGIST Autumn Becerril Barrientos, DO, FACP CPT-42135 Ofc Vst, Est Level IV 15:01:25 IMMUNOPATHOLOGIST Autumn Becerril Barrientos, DO, FACP CPT-80685 Ofc Vst, Est Level III 16:54:20 IMMUNOPATHOLOGIST Autumn Becerril Barrientos, DO, FACP CPT-31693 Ofc Vst, Est Level III 19:49:29 CDT Autumn Shira Becerril Barrientos, DO, FACP CPT-24611 Ofc Vst, Est Level III 19:25:35 CDT Autumn Shira Becerril Barrientos, DO, FACP CPT-37759 Ofc Vst, Est Level III 19:01:53 CDT Autumnnicole Becerril Barrientos, DO, FACP CPT-79503 Ofc Vst, Est Level III 16:32:38 IMMUNOPATHOLOGIST Autumn Becerril Barrientos, DO, FACP CPT-80032 Ofc Vst, Est Level III 15:37:57 IMMUNOPATHOLOGIST Autumn Barrientos [facility] CPT-74493 Ofc Vst, Est Level III 12:03:55 IMMUNOPATHOLOGIST Autumn Becerril Barrientos, DO, FACP CPT-12781 Ofc Vst, Est Level III 15:47:39 CDT Autumn Shira Becerril Barrientos, DO, FACP CPT-94650 Ofc Vst, Est Level III 16:50:03 CDT Autumn Shira Loyolai Mj Barrientos, DO, FACP CPT-45341 Ofc Vst, Est Level III 16:44:49 CDT Autumnnicole Becerril Barrientos, DO, FACP CPT-00686 Ofc Vst, Est Level III 12:02:26 CDT Autumnnicole Becerril Barrientos, DO, FACP CPT-02768 Ofc Vst, Est Level III 16:20:59 CDT Autumn Shira Becerril Barrientos, DO, FACP CPT-73554 Ofc Vst, Est Level III 11:47:46 CDT Autumnnicole [facility] OFFICE CPT-71089 Ofc Vst, Est Level III 15:01:40 CDT Autumn Shira Becerril Barrientos, DO, FACP CPT-67749 Ofc Vst, Est Level III 15:21:49 CDT Autumn Shira Becerril Barrientos, DO, FACP CPT-93771 Ofc Vst, Est Level III 11:46:40 IMMUNOPATHOLOGIST Autumn Becerril Barrientos, DO, FACP CPT-53220 Ofc Vst, Est Level III 16:04:08 IMMUNOPATHOLOGIST Autumn Becerril Barrientos, DO, FACP CPT-12924 Ofc Vst, Est Level III 12:47:46 IMMUNOPATHOLOGIST Autumn Becerril Barrientos, DO, FACP CPT-20503 Ofc Vst, Est Level III 14:12:37 IMMUNOPATHOLOGIST Autumn Becerirl Barrientos, DO, FACP CPT-91093 Ofc Vst, Est Level III 20:15:48 CDT Autumnnicole Becerril Barrientos, DO, FACP CPT-63994 Ofc Vst, Est Level III 14:50:03 CDT Autumn Shira Becerril Barrientos, DO, FACP CPT-97433 Ofc Vst, Est Level IV 11:07:07 CDT Autumn Shira Becerril Barrientos, DO, FACP CPT-77592 Ofc Vst, Est Level IV 10:56:03 IMMUNOPATHOLOGIST Autumn Becerril Barrientos, DO, FACP CPT-83691 Ofc Vst, Est Level III 10:34:42 IMMUNOPATHOLOGIST Autumn Becerril Barrientos, DO, FACP CPT-34284 Ofc Vst, Est Level IV 11:18:10 IMMUNOPATHOLOGIST Autumn Becerril Barrientos, DO, FACP CPT-81073 Ofc Vst, Est Level III 10:56:32 CDT Autumnnicole Becerril Barrientos, DO, FACP CPT-54867 Ofc Vst, Est Level IV 11:11:23 CDT Autumn Shira Becerril Barrientos, DO, FACP CPT-13460 Ofc Vst, Est Level IV 11:24:11 CDT Autumnnicole Becerril Barrientos, DO, FACP CPT-70662 Ofc Vst, Est Level III 11:36:54 CDT Autumnnicole Becerril Barrientos, DO, FACP CPT-40175 Ofc Vst, Est Level V 15:07:54 CDT Autumnnicole Becerril Barrientos, DO, FACP CPT-50013 Ofc Vst, Est Level III 16:05:11 CDT Autumn Becerril Barrientos, DO, FACP CPT-79340 Ofc Vst, Est Level IV 11:19:33 CDT Autumnnicole Becerril Barrientos, DO, FACP CPT-71455 Ofc Vst, Est Level III 11:16:56 IMMUNOPATHOLOGIST Autumn Becerril Barrientos, DO, FACP CPT-96115 Ofc Vst, Est Level IV 11:12:37 IMMUNOPATHOLOGIST Autumn Becerril Barrientos, DO, FACP CPT-48652 Ofc Vst, Est Level IV 15:21:42 IMMUNOPATHOLOGIST Autumn Barrientos AL OFFICE CPT-68493 Ofc Vst, Est Level IV 10:49:32 IMMUNOPATHOLOGIST Autumn Becerril Barrientos, DO, FACP CPT-16407 Ofc Vst, Est Level IV 13:16:00 CDT Autumn Shira Becerril Barrientos, DO, FACP CPT-56417 Ofc Vst, Est Level IV 10:47:17 CDT Autumn Shira Becerril Barrientos, DO, FACP CPT-78052 Ofc Vst, Est Level IV 10:22:32 CDT Autumn Shira Becerril Barrientos, DO, FACP CPT-66627 Ofc Vst, Est Level III 10:35:26 CDT Autumn Shira Becerril Barrientos, DO, FACP CPT-94455 Ofc Vst, Est Level IV 11:29:20 CDT Autumn Shira Becerril Barrientos, DO, FACP CPT-67451 Ofc Vst, Est Level IV 13:52:31 CDT Autumnnicole Becerril Barrientos, DO, FACP CPT-77576 Ofc Vst, Est Level IV 11:41:20 CDT Autumn Shira Becerril Barrientos, DO, FACP CPT-56511 Ofc Vst, Est Level IV 09:38:08 IMMUNOPATHOLOGIST Autumn Becerril Barrientos, DO, FACP CPT-78230 Ofc Vst, Est Level V 11:02:14 IMMUNOPATHOLOGIST Autumn Becerril Barrientos, DO, FACP CPT-72440 Ofc Vst, Est Level V 10:30:31 IMMUNOPATHOLOGIST Autumn Shira Leyva S Barrientos, DO, FACP CPT-00238 Ofc Vst, Est Level IV 11:14:50 IMMUNOPATHOLOGIST Autumn Leyva S Barrientos, DO, FACP CPT-00170 Ofc Vst, Est Level V 11:06:34 IMMUNOPATHOLOGIST Autumn Shira Levya S Barrientos, DO, FACP CPT-62822 Ofc Vst, Est Level IV 11:30:08 IMMUNOPATHOLOGIST Autumn Becerril Barrientos, DO, FACP CPT-74896 Ofc Vst, Est Level V 11:35:41 CDT Autumn Becerril Barrientos, DO, FACP CPT-30082 Ofc Vst, Est Level IV 10:09:46 CDT Autumn Becerril Barrientos, DO, FACP CPT-91841 Ofc Vst, Est Level V 13:55:27 CDT Autumn Becerril Barrientos, DO, FACP CPT-60017 Ofc Vst, Est Level V 11:20:26 CDT Autumn Becerril Barrientos, DO, FACP CPT-98159 Ofc Vst, New Level IV 16:42:29 CDT Autumn Becerril Barrientos, DO, FACP Procedures Code Procedure Name Date Entry Date Standard Description CPT-G0439 Medicare Annual Wellness Visit 10:22:06 IMMUNOPATHOLOGIST CPT-G0439 Medicare Annual Wellness Visit 15:50:07 CDT CPT-G8446 E-Prescribing not done due to controlled substance 19:01:53 CDT CPT-G8445 E-Prescribing Not sent due to no medication given 16:32:38 IMMUNOPATHOLOGIST CPT-G8443 E-Prescribing Medication Sent 15:37:57 IMMUNOPATHOLOGIST CPT-G8445 E-Prescribing Not sent due to no medication given 12:03:55 IMMUNOPATHOLOGIST CPT-G8445 E-Prescribing Not sent due to no [...] sent due to no medication given 11:46:40 IMMUNOPATHOLOGIST CPT-G8443 E-Prescribing Medication Sent 16:04:08 IMMUNOPATHOLOGIST CPT-G8443 E-Prescribing Medication Sent 12:47:46 IMMUNOPATHOLOGIST CPT-G8445 E-Prescribing Not sent due to no medication given 14:12:37 IMMUNOPATHOLOGIST CPT-G8445 E-Prescribing Not sent due to no medication given 12:46:38 CDT CPT-74048 Ear Wax Removal 12:46:38 CDT CPT-G8443 E-Prescribing Medication Sent 20:15:48 CDT CPT-G0438 Medicare Annual Wellness Visit Initial 11:42:23 CDT
--- OUTSIDE RECORDS SUMMARY | 2019-03-13 00:14 | XMS REPORT | Clinical Summary ---
Author Author User, VersionEye Organization Autumn Barrientos DO, FACP Address Unknown [...] Coronary atherosclerosis of unspecified type of vessel, [place] or graft SEIZURE 780.3 Active Autumn Barrientos [...] MG CAP 1 po BID DOXYCYCLINE HYCLATE 15302516668 No Longer Active Autumn Barrientos PREDNISONE 10 MG TAB 4 PO at one time once daily for 2 days, then 3 PO at one time once daily for 2 days, and 2 PO at one time once daily for 2 days, and then 1 PO daily for 2 days. PREDNISONE 43281261041 No Longer Active Autumn Barrientos SYNTHROID 0.075 MG TAB 1 PO daily LEVOTHYROXINE SODIUM 55238564726 Active Autumn Barrientos NYSTATIN SUSP 5 ML PO Q 6 HRS NYSTATIN SUSP 80512786794 No Longer Active Autumn Barrientos AMIODARONE HCL 400 MG TABS 1 PO every other day AMIODARONE HCL 19752290974 No Longer Active Autumn Barrientos PREDNISONE 10 MG TABS TAKE 4 TABS PO DAILY X 2 DAYS, THEN 3 PILLS PO DAILY X 2 DAYS, THEN 2 PILLS PO DAILY X 2 DAYS, THEN ONE PILL PO DAILY X 2 DAYS PREDNISONE 01083212852 No Longer Active Autumn Barrientos VITAMIN C 500 MG TABS 2 po daily ASCORBIC ACID 86210615589 No Longer Active Autumn Barrientos HYDROCODONE-ACETAMINOPHEN 5-325 MG TABS 1-2 PO Q4-6 hrs prn pain HYDROCODONE-ACETAMINOPHEN 02804959973 No Longer Active Autumn Barrientos ZOCOR 10 MG TAB 1 PO Daily SIMVASTATIN 00376574951 Active Autumn Barrientos TRANSDERM-SCOP 1.5 MG PT72 1 patch behind ear and change every 3 days SCOPOLAMINE BASE 45578968708 No Longer Active Autumnnicole Barrientos LISINOPRIL 5 MG TABS 1 po daily LISINOPRIL 83685777412 Active Autumn Shira Barrientos DIGOXIN 0.25 MG TABS 1 PO daily DIGOXIN 99205767697 Active Autumn Shira Barrientos TOPROL XL 25 MG [id number]-[id number] 2 PO daily METOPROLOL SUCCINATE 64003829312 Active Autumn Shira Barrientos VALIUM 2 MG TAB 1/2 - 1 PO BID prn muscle spasm DIAZEPAM 75496239556 No Longer Active Autumn Shira Barrientos KENALOG 0.1 % CREA apply to affected areas BID TRIAMCINOLONE ACETONIDE No Longer Active Autumnnicole Barrientos PREDNISONE 20 MG TAB 2 pills at once for 2 days then 1 pill daily for 5 days PREDNISONE 13081575788 No Longer Active Autumn Barrientos DOXYCYCLINE HYCLATE 100 MG CAP 1 po BID DOXYCYCLINE HYCLATE 01534139898 No Longer Active Autumnnicole Barrientos CALMOSEPTINE 0.44-20.625 % OINT Apply to affected areas TID prn MENTHOL-ZINC OXIDE 55312005918 Active Autumnnicole Barrientos BIAXIN 500 MG TAB 1 PO BID CLARITHROMYCIN 55740430389 No Longer Active Autumn Barrientos PREDNISONE 20 MG TAB 2 pills at once for 3 days then 1 pill daily for 5 days PREDNISONE 35264768886 No Longer Active Prabha Carmona PREDNISONE 20 MG TAB 2 pills at once for 4 days then 1 pill daily for 4 days PREDNISONE 17661429933 No Longer Active Autumnnicole Barrientos LEVAQUIN 500 MG TAB 1 PO QD LEVOFLOXACIN 66927218717 No Longer Active Autumnnicole Barrientos TYLENOL 325 MG TABS 2 po q 4 hrs prn pain ACETAMINOPHEN 41040701035 No Longer Active Autumn Shira Barrientos CALMOSEPTINE 0.44-20.625 % OINT Apply to affected area QID prn MENTHOL-ZINC OXIDE 31887719094 No Longer Active Autumn Shira Barrientos JANE ALLERGY 180 MG TABS 1 PO daily FEXOFENADINE HCL 72555396313 No Longer Active Autumn Shira Barrientos VALIUM 2 MG TAB 1 PO QHS prn DIAZEPAM 66903139736 No Longer Active Autumn Shira Barrientos FLEXERIL 10 MG TAB 1 PO QHS prn CYCLOBENZAPRINE HCL 60839319672 No Longer Active Autumn Shira Barrientos ANUSOL-HC 2.5 % CREA apply to affected area on rectum TID prn. HYDROCORTISONE 00596675374 No Longer Active Autumn Shira Barrientos LOTRISONE 0.05-1 % CREAM apply to affected areas twice daily CLOTRIMAZOLE-BETAMETHASONE 54288283223 No Longer Active Autumn Shira Barrientos SINGULAIR 10 MG TABS 1 PO QHS MONTELUKAST SODIUM 79387881265 Active Autumn Sihra Barrientos PREDNISONE 20 MG TAB 2 pills at once for 3 days then 1 pill daily for 5 days PREDNISONE 22745702015 No Longer Active Autumn Shira Barrientos FUROSEMIDE 40 MG TABS 1 PO every day FUROSEMIDE 89719859233 Active Autumn Shira Barrientos TAMIFLU 75 MG CAPS 1 PO DAILY X 10 DAYS OSELTAMIVIR PHOSPHATE 54623821598 No Longer Active Autumn Shira Barrientos PREDNISONE 20 MG TABS 1 PO DAILY x 7 days then DC PREDNISONE 61482563762 No Longer Active Autumn Shira Barrientos PREDNISONE 20 MG TAB 2 pills at once for 3 days then 1 pill daily for 3 days PREDNISONE 66654165558 No Longer Active Autumn Shira Barrientos DOXYCYCLINE HYCLATE 100 MG CAP 1 po BID DOXYCYCLINE HYCLATE 75778821266 No Longer Active Autumn Barrientos DOCUSATE SODIUM 60 MG/15ML SYRP 2 drops left ear let stand for 5 minutes then rinse. Use daily for 7 days then return to office for flushing of ears DOCUSATE SODIUM 49542097141 No Longer Active Autumn Barrientos PREDNISONE 20 MG TAB 2 pills at once for 3 days then 1 pill daily for 3 days PREDNISONE 88091575102 No Longer Active Autumn Barrientos DOXYCYCLINE HYCLATE 100 MG CAP 1 po BID DOXYCYCLINE HYCLATE 50665614411 No Longer Active Autumn Barrientos MOBIC 15 MG TABS 1 PO daily for knee pain MELOXICAM 81505824098 No Longer Active Autumn Barrientos VITAMIN D 1000 UNIT TABS 2 PO Daily CHOLECALCIFEROL 93879251261 Active Autumn Barrientos DILANTIN 100 MG CAPS 2 PO QAM and 3 PO QPM PHENYTOIN SODIUM EXTENDED 56399431030 Active Briana Alford PLAVIX 75 MG TABS 1 PO every other day CLOPIDOGREL BISULFATE 51749459864 No Longer Active Autumn Barrientos PREDNISONE 20 MG TAB 3 pills daily at once for 2 days, 2 pills daily at once for 2 days, 1 once daily for 2 days PREDNISONE 97468473120 No Longer Active Autumn Barrientos LEVAQUIN 500 MG TAB 1 PO QD LEVOFLOXACIN 60408057706 No Longer Active Autumn Barrientos ZOSTAVAX 44280 UNT/0.65ML SOLR 1 injection once to prevent Shingles ZOSTER VACCINE LIVE 52967097467 No Longer Active Autumn Barrientos SYMBICORT 160-4.5 MCG/ACT AERO 2 puffs twice daily BUDESONIDE-FORMOTEROL FUMARATE 24419244848 Active Briana Alford ATROVENT 0.06 % SOLN 2 puffs each nostril TID prn runny nose IPRATROPIUM BROMIDE 02922391531 No Longer Active Autumn Barrientos PREDNISONE 20 MG TAB 3 pills daily at once for 2 days, 2 pills daily at once for 2 days, 1 once daily for 2 days PREDNISONE 84363158691 No Longer Active Autumn Barrientos BIAXIN 500 MG TAB 1 PO BID CLARITHROMYCIN 78339232530 No Longer Active Autumn Barrientos MOBIC 15 MG TABS 1 po daily MELOXICAM 05957003815 No Longer Active Autumn Barrientos PREDNISONE 20 MG TAB 3 pills daily at once for 2 days, 2 pills daily at once for 2 days, 1 once daily for 2 days PREDNISONE 56780863794 No Longer Active Autumn Barrientos TESSALON 200 MG CAPS 1 PO TID prn cough BENZONATATE 95686940907 No Longer Active Autumn Barrientos AUGMENTIN 500-125 MG TAB 1 PO BID AMOXICILLIN-POT CLAVULANATE 99713824753 No Longer Active Autumn ROBLEDO'Mj NASAL SPRAY (DEXAMETHASONE, GENTAMICIN, SALINE) 2 puffs each nostril TID for [address] HANLEY NASAL SPRAY (DEXAMETHASONE, GENTAMICIN, SALINE) No Longer Active Autumn Barrientos LOTRISONE 0.05-1 % CREAM Apply BID to affected areas CLOTRIMAZOLE-BETAMETHASONE 26847868404 No Longer Active Autumn Barrientos ACYCLOVIR 800 MG TABS 1 PO five times a day for 10 days ACYCLOVIR 78953799026 No Longer Active Autumn Barrientos LORTAB 5 5-500 MG TABS 1 to 2 PO Q6hrs prn ACETAMINOPHEN-HYDROCODONE 24601928719 No Longer Active Autumn Shira Barrientos VALTREX 1 GM TAB 1 PO BID VALACYCLOVIR HCL 07204083337 No Longer Active Autumn Shira Barrientos NYSTATIN 152278 U/ML SUSP 5cc PO QID for 7 days NYSTATIN 80563327266 No Longer Active Autumn Shira Barrientos DIFLUCAN 100 MG TAB 1 PO daily for five days FLUCONAZOLE 01705790209 No Longer Active Autumn Shira Barrientos MIRALAX POWD 1 scoop in 4oz of water PO daily POLYETHYLENE GLYCOL 3350 45945712496 Active Autumn Shira Barrientos BIAXIN 500 MG TAB 1 PO BID CLARITHROMYCIN 58157057667 No Longer Active Autumn Shira Barrientos MUCINEX 600 MG GL50X-HZH 1 po BID prn as needed GUAIFENESIN 56336430631 Active Autumn Shira Barrientos PREDNISONE 10 MG TAB 1 PO daily PREDNISONE 54378601858 No Longer Active Autumn Shira Barrientos ALBUTEROL SULFATE 0.083 % NEBU SOLN 1 Treatment QID ALBUTEROL SULFATE 35035643791 Active Autumn Shira Barrientos DARVOCET-N 100 100-650 MG TAB 1 PO Q4hrs prn pain PROPOXYPHENE N-APAP 53671948763 No Longer Active Autumn Shira Barrientos ASPIRIN 81 MG TAB 1 PO daily ASPIRIN 12201529437 Active Autunm Shira Barrientos COREG 25 MG TABS 1 po BID CARVEDILOL 16527844688 No Longer Active Autumn Shira Barrientos ALDACTONE 25 MG TABS 1/2 po every other day SPIRONOLACTONE 64696680870 No Longer Active Autumn Shira Barrientos CHLORPHENIRAMINE MALEATE 4 MG TABS 1 PO Q6hrs prn for cold CHLORPHENIRAMINE MALEATE 93065622915 No Longer Active Autumn Shirajudy Barrientos PREDNISONE 20 MG TAB 2 pills at once for 3 days then 1 pill daily for 3 days PREDNISONE 16843178731 No Longer Active Autumn Barrientos BIAXIN 500 MG TAB 1 PO BID CLARITHROMYCIN 46097411868 No Longer Active Autumn Shira Barrientos CHLORHEXIDINE GLUCONATE 0.12 % SOLN Rinse mouth 2 times a day CHLORHEXIDINE GLUCONATE 38854157106 Active Autumn Barrientos COUMADIN 5 MG TABS 1 po daily WARFARIN SODIUM 91295463451 No Longer Active Autumn Shira Iliana PHENOBARBITAL 64.8 MG TABS 2 po at HS PHENOBARBITAL 48638401762 Active Briana Alford Immunizations Vaccine Administration Date [...] ng/mL Encounters Code Encounter Date Provider Facility CPT-19670 Ofc Vst, Est Level III 13:33:45 CDT Autumn Barrientos DO, FACP CPT-72457 Ofc Vst, Est Level III 17:12:01 CDT Autumn Barrientos DO, FACP CPT-37871 Ofc Vst, Est Level IV 21:01:56 CDT Autumn Barrientos DO, FACP CPT-70840 Ofc Vst, Est Level III 15:48:[address] CLERK Autumn Becerril Barrientos, DO, FACP CPT-89184 Ofc Vst, Est Level IV 15:01:[address] CLERK Autumn Becerril Barrientos, DO, FACP CPT-44302 Ofc Vst, Est Level III 16:54:[address] CLERK Autumn Becerril Barrientos, DO, FACP CPT-89823 Ofc Vst, Est Level III 19:49:29 CDT Autumn Shira Becerril Barrientos, DO, FACP CPT-00022 Ofc Vst, Est Level III 19:25:35 CDT Autumn Shira Becerril Barrientos, DO, FACP CPT-33069 Ofc Vst, Est Level III 19:01:53 CDT Atuumnnicole Becerril Barrientos, DO, FACP CPT-20704 Ofc Vst, Est Level III 16:32:[address] CLERK Autumn Becerril Barrientos, DO, FACP CPT-76051 Ofc Vst, Est Level III 15:37:[address] CLERK Autumn Barrientos [place] OFFICE CPT-20168 Ofc Vst, Est Level III 12:03:[address] CLERK Autumn Becerril Barrientos, DO, FACP CPT-49298 Ofc Vst, Est Level III 15:47:39 CDT Autumn Shira Becerril Barrientos, DO, FACP CPT-98631 Ofc Vst, Est Level III 16:50:03 CDT Autumn Shira Loyolai Mj Barrientos, DO, FACP CPT-64559 Ofc Vst, Est Level III 16:44:49 CDT Autumnnicole Becerril Barrientos, DO, FACP CPT-61155 Ofc Vst, Est Level III 12:02:26 CDT Autumnnicole Becerril Barrientos, DO, FACP CPT-55455 Ofc Vst, Est Level III 16:20:59 CDT Autumn Shira Becerril Barrientos, DO, FACP CPT-31191 Ofc Vst, Est Level III 11:47:46 CDT Autumnnicole [facility] OFFICE CPT-17349 Ofc Vst, Est Level III 15:01:40 CDT Autumn Shira Becerril Barrientos, DO, FACP CPT-94302 Ofc Vst, Est Level III 15:21:49 CDT Autumn Shira Becerril Barrientos, DO, FACP CPT-42903 Ofc Vst, Est Level III 11:46:[address] CLERK Autumn Becerril Barrientos, DO, FACP CPT-03952 Ofc Vst, Est Level III 16:04:[address] CLERK Autumn Becerril Barrientos, DO, FACP CPT-37009 Ofc Vst, Est Level III 12:47:[address] CLERK Autumn Becerril Barrientos, DO, FACP CPT-34653 Ofc Vst, Est Level III 14:12:[address] CLERK Autumn Becerril Barrientos, DO, FACP CPT-72985 Ofc Vst, Est Level III 20:15:48 CDT Autumnnicole Becerril Barrientos, DO, FACP CPT-86160 Ofc Vst, Est Level III 14:50:03 CDT Autumn Shira Becerril Barrientos, DO, FACP CPT-40136 Ofc Vst, Est Level IV 11:07:07 CDT Autumn Shira Becerril Barrientos, DO, FACP CPT-14755 Ofc Vst, Est Level IV 10:56:[address] CLERK Autumn Becerril Barrientos, DO, FACP CPT-10201 Ofc Vst, Est Level III 10:34:[address] CLERK Autumn Becerril Barrientos, DO, FACP CPT-26408 Ofc Vst, Est Level IV 11:18:[address] CLERK Autumn Becerril Barrientos, DO, FACP CPT-69727 Ofc Vst, Est Level III 10:56:32 CDT Autumnnicole Becerril Barrientos, DO, FACP CPT-36925 Ofc Vst, Est Level IV 11:11:23 CDT Autumn Shira Becerril Barrientos, DO, FACP CPT-98912 Ofc Vst, Est Level IV 11:24:11 CDT Autumnnicole Becerril Barrientos, DO, FACP CPT-43004 Ofc Vst, Est Level III 11:36:54 CDT Autumnnicole Becerril Barrientos, DO, FACP CPT-96289 Ofc Vst, Est Level V 15:07:54 CDT Autumnnicole Becerril Barrientos, DO, FACP CPT-15796 Ofc Vst, Est Level III 16:05:11 CDT Autumn Becerril Barrientos, DO, FACP CPT-44529 Ofc Vst, Est Level IV 11:19:33 CDT Autumnnicole Becerril Barrientos, DO, FACP CPT-08088 Ofc Vst, Est Level III 11:16:[address] CLERK Autumn Becerril Barrientos, DO, FACP CPT-01574 Ofc Vst, Est Level IV 11:12:[address] CLERK Autumn Becerril Barrientos, DO, FACP CPT-93559 Ofc Vst, Est Level IV 15:21:[address] CLERK Autumn Barrientos [place] OFFICE CPT-76635 Ofc Vst, Est Level IV 10:49:[address] CLERK Autumn Becerril Barrientos, DO, FACP CPT-43767 Ofc Vst, Est Level IV 13:16:00 CDT Autumn Shira Becerril Barrientos, DO, FACP CPT-91534 Ofc Vst, Est Level IV 10:47:17 CDT Autumn Shira Becerril Barrientos, DO, FACP CPT-77753 Ofc Vst, Est Level IV 10:22:32 CDT Autumn Shira Becerril Barrientos, DO, FACP CPT-10778 Ofc Vst, Est Level III 10:35:26 CDT Autumn Shira Becerril Barrientos, DO, FACP CPT-74982 Ofc Vst, Est Level IV 11:29:20 CDT Autumn Shira Becerril Barrientos, DO, FACP CPT-98639 Ofc Vst, Est Level IV 13:52:31 CDT Autumnnicole Becerril Barrientos, DO, FACP CPT-91832 Ofc Vst, Est Level IV 11:41:20 CDT Autumn Shira Becerril Barrientos, DO, FACP CPT-21625 Ofc Vst, Est Level IV 09:38:[address] CLERK Autumn Becerril Barrientos, DO, FACP CPT-90118 Ofc Vst, Est Level V 11:02:[address] CLERK Autumn Becerril Barrientos, DO, FACP CPT-12160 Ofc Vst, Est Level V 10:30:[address] CLERK Autumn Shira Leyva S Barrientos, DO, FACP CPT-50515 Ofc Vst, Est Level IV 11:14:[address] CLERK Autumn Leyva S Barrientos, DO, FACP CPT-01818 Ofc Vst, Est Level V 11:06:[address] CLERK Autumn Shira Leyva S Barrientos, DO, FACP CPT-94822 Ofc Vst, Est Level IV 11:30:[address] CLERK Autumn Becerril Barrientos, DO, FACP CPT-27405 Ofc Vst, Est Level V 11:35:41 CDT Autumn Becerril Barrientos, DO, FACP CPT-42115 Ofc Vst, Est Level IV 10:09:46 CDT Autumn Becerril Barrientos, DO, FACP CPT-16309 Ofc Vst, Est Level V 13:55:27 CDT Autumn Becerril Barrientos, DO, FACP CPT-85072 Ofc Vst, Est Level V 11:20:26 CDT Autumn Becerril Barrientos, DO, FACP CPT-20805 Ofc Vst, New Level IV 16:42:29 CDT Autumn Becerril Barrientos, DO, FACP Procedures Code Procedure Name Date Entry Date Standard Description CPT-G0439 Medicare Annual Wellness Visit 10:22:[address] CLERK CPT-G0439 Medicare Annual Wellness Visit 15:50:07 CDT CPT-G8446 E-Prescribing not done due to controlled substance 19:01:53 CDT CPT-G8445 E-Prescribing Not sent due to no medication given 16:32:[address] CLERK CPT-G8443 E-Prescribing Medication Sent 15:37:[address] CLERK CPT-G8445 E-Prescribing Not sent due to no medication given 12:03:[address] CLERK CPT-G8445 E-Prescribing Not sent due to no [...] sent due to no medication given 11:46:[address] CLERK CPT-G8443 E-Prescribing Medication Sent 16:04:[address] CLERK CPT-G8443 E-Prescribing Medication Sent 12:47:[address] CLERK CPT-G8445 E-Prescribing Not sent due to no medication given 14:12:[address] CLERK CPT-G8445 E-Prescribing Not sent due to no medication given 12:46:38 CDT CPT-25938 Ear Wax Removal 12:46:38 CDT CPT-G8443 E-Prescribing Medication Sent 20:15:48 CDT CPT-G0438 Medicare Annual Wellness Visit Initial 11:42:23 CDT
[2019-03-13] MEDS ORDERED: LIDOCAINE 1% INJ 20 ML 20 ML VIAL INJ ONE (00:15)
--- OUTSIDE RECORDS SUMMARY | 2019-03-13 00:16 | XMS REPORT | Clinical Summary ---
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 PREDNISONE 88806155628 No Longer Active Autumn Barrientos SYNTHROID 0.075 MG TAB 1 PO daily LEVOTHYROXINE SODIUM 59539887349 Active Autumn Barrientos NYSTATIN SUSP 5 ML PO Q 6 HRS NYSTATIN SUSP 95737710942 No Longer Active Autumn Barrientos AMIODARONE HCL 400 MG TABS 1 PO every other day AMIODARONE HCL 17617839242 No Longer Active Autumn Barrientos PREDNISONE 10 MG TABS TAKE 4 TABS PO DAILY X 2 DAYS, THEN 3 PILLS PO DAILY X 2 DAYS, THEN 2 PILLS PO DAILY X 2 DAYS, THEN ONE PILL PO DAILY X 2 DAYS PREDNISONE 89113542397 No Longer Active Autumn Barrientos VITAMIN C 500 MG TABS 2 po daily ASCORBIC ACID 81510426739 No Longer Active Autumn Barrientos HYDROCODONE-ACETAMINOPHEN 5-325 MG TABS 1-2 PO Q4-6 hrs prn pain HYDROCODONE-ACETAMINOPHEN 96141830418 No Longer Active Autumn Barrientos ZOCOR 10 MG TAB 1 PO Daily SIMVASTATIN 97181360062 Active Autumn Barrientos TRANSDERM-SCOP 1.5 MG PT72 1 patch behind ear and change every 3 days SCOPOLAMINE BASE 32676946019 No Longer Active Autumnnicole Barrientos LISINOPRIL 5 MG TABS 1 po daily LISINOPRIL 16422779268 Active Autumn Shira Barrientos DIGOXIN 0.25 MG TABS 1 PO daily DIGOXIN 67129400908 Active Autumn Shira Barrientos TOPROL XL 25 MG [id number] 2 PO daily METOPROLOL SUCCINATE 39566338384 Active Autumn Shira Barrientos VALIUM 2 MG TAB 1/2 - 1 PO BID prn muscle spasm DIAZEPAM 81125226600 No Longer Active Autumn Shira Barrientos KENALOG 0.1 % CREA apply to affected areas BID TRIAMCINOLONE ACETONIDE No Longer Active Autumnnicole Barrientos PREDNISONE 20 MG TAB 2 pills at once for 2 days then 1 pill daily for 5 days PREDNISONE 91129038625 No Longer Active Autumn Barreintos DOXYCYCLINE HYCLATE 100 MG CAP 1 po BID DOXYCYCLINE HYCLATE 18844784482 No Longer Active Autumnnicole Barrientos CALMOSEPTINE 0.44-20.625 % OINT Apply to affected areas TID prn MENTHOL-ZINC OXIDE 83314783972 Active Autumnnicole Barrientos BIAXIN 500 MG TAB 1 PO BID CLARITHROMYCIN 24652118242 No Longer Active Autumn Barrientos PREDNISONE 20 MG TAB 2 pills at once for 3 days then 1 pill daily for 5 days PREDNISONE 56279144604 No Longer Active Prabha Carmona PREDNISONE 20 MG TAB 2 pills at once for 4 days then 1 pill daily for 4 days PREDNISONE 42647237337 No Longer Active Autumnnicole Barrientos LEVAQUIN 500 MG TAB 1 PO QD LEVOFLOXACIN 20052672401 No Longer Active Autumnnicole Barrientos TYLENOL 325 MG TABS 2 po q 4 hrs prn pain ACETAMINOPHEN 72974635842 No Longer Active Autumn Shira Barrientos CALMOSEPTINE 0.44-20.625 % OINT Apply to affected area QID prn MENTHOL-ZINC OXIDE 56812100398 No Longer Active Autumn Shira Barrientos JANE ALLERGY 180 MG TABS 1 PO daily FEXOFENADINE HCL 44774822219 No Longer Active Autumn Shira Barrientos VALIUM 2 MG TAB 1 PO QHS prn DIAZEPAM 18969840536 No Longer Active Autumn Shira Barrientos FLEXERIL 10 MG TAB 1 PO QHS prn CYCLOBENZAPRINE HCL 81194216625 No Longer Active Autumn Shira Barrientos ANUSOL-HC 2.5 % CREA apply to affected area on rectum TID prn. HYDROCORTISONE 17272178997 No Longer Active Autumn Shira Barrientos LOTRISONE 0.05-1 % CREAM apply to affected areas twice daily CLOTRIMAZOLE-BETAMETHASONE 91942457624 No Longer Active Autumn Shira Barrientos SINGULAIR 10 MG TABS 1 PO QHS MONTELUKAST SODIUM 28489397293 Active Autumn Shira Barrientos PREDNISONE 20 MG TAB 2 pills at once for 3 days then 1 pill daily for 5 days PREDNISONE 43778551380 No Longer Active Autumn Shira Barrientos FUROSEMIDE 40 MG TABS 1 PO every day FUROSEMIDE 78626128615 Active Autumn Shira Barrientos TAMIFLU 75 MG CAPS 1 PO DAILY X 10 DAYS OSELTAMIVIR PHOSPHATE 92152274021 No Longer Active Autumn Shira Barrientos PREDNISONE 20 MG TABS 1 PO DAILY x 7 days then DC PREDNISONE 55947999335 No Longer Active Autumn Shira Barrientos PREDNISONE 20 MG TAB 2 pills at once for 3 days then 1 pill daily for 3 days PREDNISONE 48569051857 No Longer Active Autumn Shira Barrientos DOXYCYCLINE HYCLATE 100 MG CAP 1 po BID DOXYCYCLINE HYCLATE 06326662594 No Longer Active Autumn Barrientos DOCUSATE SODIUM 60 MG/15ML SYRP 2 drops left ear let stand for 5 minutes then rinse. Use daily for 7 days then return to office for flushing of ears DOCUSATE SODIUM 31283345562 No Longer Active Autumn Barrientos PREDNISONE 20 MG TAB 2 pills at once for 3 days then 1 pill daily for 3 days PREDNISONE 09773461440 No Longer Active Autumn Barrientos DOXYCYCLINE HYCLATE 100 MG CAP 1 po BID DOXYCYCLINE HYCLATE 18331881883 No Longer Active Autumn Barrientos MOBIC 15 MG TABS 1 PO daily for knee pain MELOXICAM 58258357081 No Longer Active Autumn Barrientos VITAMIN D 1000 UNIT TABS 2 PO Daily CHOLECALCIFEROL 81532346346 Active Autumn Barrientos DILANTIN 100 MG CAPS 2 PO QAM and 3 PO QPM PHENYTOIN SODIUM EXTENDED 50642794112 Active Briana Alford PLAVIX 75 MG TABS 1 PO every other day CLOPIDOGREL BISULFATE 33923844318 No Longer Active Autumn Barrientos PREDNISONE 20 MG TAB 3 pills daily at once for 2 days, 2 pills daily at once for 2 days, 1 once daily for 2 days PREDNISONE 02212182517 No Longer Active Autumn Barrientos LEVAQUIN 500 MG TAB 1 PO QD LEVOFLOXACIN 28318668138 No Longer Active Autumn Barrientos ZOSTAVAX 67017 UNT/0.65ML SOLR 1 injection once to prevent Shingles ZOSTER VACCINE LIVE 22815777227 No Longer Active Autumn Barrientos SYMBICORT 160-4.5 MCG/ACT AERO 2 puffs twice daily BUDESONIDE-FORMOTEROL FUMARATE 90117108085 Active Briana Alford ATROVENT 0.06 % SOLN 2 puffs each nostril TID prn runny nose IPRATROPIUM BROMIDE 61150327789 No Longer Active Autumn Barrientos PREDNISONE 20 MG TAB 3 pills daily at once for 2 days, 2 pills daily at once for 2 days, 1 once daily for 2 days PREDNISONE 54978905627 No Longer Active Autumn Barrientos BIAXIN 500 MG TAB 1 PO BID CLARITHROMYCIN 85469216525 No Longer Active Autumn Barrientos MOBIC 15 MG TABS 1 po daily MELOXICAM 37744599627 No Longer Active Autumn Barrientos PREDNISONE 20 MG TAB 3 pills daily at once for 2 days, 2 pills daily at once for 2 days, 1 once daily for 2 days PREDNISONE 31039337601 No Longer Active Autumn Barrientos TESSALON 200 MG CAPS 1 PO TID prn cough BENZONATATE 26967001282 No Longer Active Autumn Barrientos AUGMENTIN 500-125 MG TAB 1 PO BID AMOXICILLIN-POT CLAVULANATE 88083248273 No Longer Active Autumn ROBLEDO'Mj NASAL SPRAY (DEXAMETHASONE, GENTAMICIN, SALINE) 2 puffs each nostril TID for [address] HANLEY NASAL SPRAY (DEXAMETHASONE, GENTAMICIN, SALINE) No Longer Active Autumn Barrientos LOTRISONE 0.05-1 % CREAM Apply BID to affected areas CLOTRIMAZOLE-BETAMETHASONE 23175061434 No Longer Active Autumn Barrientos ACYCLOVIR 800 MG TABS 1 PO five times a day for 10 days ACYCLOVIR 67657194884 No Longer Active Autumn Barrientos LORTAB 5 5-500 MG TABS 1 to 2 PO Q6hrs prn ACETAMINOPHEN-HYDROCODONE 13074989563 No Longer Active Autumn Shira Barrientos VALTREX 1 GM TAB 1 PO BID VALACYCLOVIR HCL 83860547181 No Longer Active Autumn Shira Barrientos NYSTATIN 126050 U/ML SUSP 5cc PO QID for 7 days NYSTATIN 25136937117 No Longer Active Autumn Shira Barrientos DIFLUCAN 100 MG TAB 1 PO daily for five days FLUCONAZOLE 29934637565 No Longer Active Autumn Shira Barrientos MIRALAX POWD 1 scoop in 4oz of water PO daily POLYETHYLENE GLYCOL 3350 13742250967 Active Autumn Shira Barrientos BIAXIN 500 MG TAB 1 PO BID CLARITHROMYCIN 77126461534 No Longer Active Autumn Shira Barrientos MUCINEX 600 MG [id number] 1 po BID prn as needed GUAIFENESIN 50761487341 Active Autumn Shira Barrientos PREDNISONE 10 MG TAB 1 PO daily PREDNISONE 93655910322 No Longer Active Autumn Shira Barrienots ALBUTEROL SULFATE 0.083 % NEBU SOLN 1 Treatment QID ALBUTEROL SULFATE 52397839523 Active Autumn Shira Barrientos DARVOCET-N 100 100-650 MG TAB 1 PO Q4hrs prn pain PROPOXYPHENE N-APAP 13461300286 No Longer Active Autumn Shira Barrientos ASPIRIN 81 MG TAB 1 PO daily ASPIRIN 91433050832 Active Autumn Shira Barrientos COREG 25 MG TABS 1 po BID CARVEDILOL 28062509037 No Longer Active Autumn Shira Barrientos ALDACTONE 25 MG TABS 1/2 po every other day SPIRONOLACTONE 44736736506 No Longer Active Autumn Shira Barrientos CHLORPHENIRAMINE MALEATE 4 MG TABS 1 PO Q6hrs prn for cold CHLORPHENIRAMINE MALEATE 18444292774 No Longer Active Autumn Shira Barrientos PREDNISONE 20 MG TAB 2 pills at once for 3 days then 1 pill daily for 3 days PREDNISONE 81341741404 No Longer Active Autumn Barrientos BIAXIN 500 MG TAB 1 PO BID CLARITHROMYCIN 17889508185 No Longer Active Autumn Shira Barrientos CHLORHEXIDINE GLUCONATE 0.12 % SOLN Rinse mouth 2 times a day CHLORHEXIDINE GLUCONATE 28143764358 Active Autumn Barrientos COUMADIN 5 MG TABS 1 po daily WARFARIN SODIUM 26194970219 No Longer Active Autumn Shira Barrientos PHENOBARBITAL 64.8 MG TABS 2 po at HS PHENOBARBITAL 32076538134 Active Briana Alford Immunizations Vaccine Administration Date [...] <1.005 bilirubin, urine neg Office Visit: Dr Barrientos'mj Check Up: Established Patient Visit - Chemistry [...] count, blood 6.4 10*3/mm3 Office Visit: Dr Keller Check Up: Established Patient Visit - Toxicology digoxin level, serum 0.8 ng/mL Encounters Code Encounter Date Provider Facility CPT-01097 Ofc Vst, Est Level III 14:19:06 CDT Autumnnicole Becerril Barrientos, DO, FACP CPT-58550 Ofc Vst, Est Level III 13:33:45 CDT Autumn Shira Becerril Barrientos, DO, FACP CPT-65380 Ofc Vst, Est Level III 17:12:01 CDT Autumn Shira Becerril Barrientos, DO, FACP CPT-90920 Ofc Vst, Est Level IV 21:01:56 CDT Autumnnicole Becerril Barrientos, DO, FACP CPT-36810 Ofc Vst, Est Level III 15:48:19 TRAVEL INSURANCE AGENT Autumn Becerril Barrientos, DO, FACP CPT-98870 Ofc Vst, Est Level IV 15:01:25 TRAVEL INSURANCE AGENT Autumn Becerril Barrientos, DO, FACP CPT-37630 Ofc Vst, Est Level III 16:54:20 TRAVEL INSURANCE AGENT Autumn Becerril Barrientos, DO, FACP CPT-08879 Ofc Vst, Est Level III 19:49:29 CDT Autumnnicole Becerril Barrientos, DO, FACP CPT-08411 Ofc Vst, Est Level III 19:25:35 CDT Autumn Becerril Barrientos, DO, FACP CPT-15655 Ofc Vst, Est Level III 19:01:53 CDT Autumnnicole Becerril Barrientos, DO, FACP CPT-42537 Ofc Vst, Est Level III 16:32:38 TRAVEL INSURANCE AGENT Autumn Becerril Barrientos, DO, FACP CPT-37209 Ofc Vst, Est Level III 15:37:57 TRAVEL INSURANCE AGENT Autumn Barrientos [facility] CPT-75752 Ofc Vst, Est Level III 12:03:55 TRAVEL INSURANCE AGENT Autumn Becerril Barrientos, DO, FACP CPT-58117 Ofc Vst, Est Level III 15:47:39 CDT Autumn Shira Becerril Barrientos, DO, FACP CPT-15471 Ofc Vst, Est Level III 16:50:03 CDT Autumn Shira Becerril Barrientos, DO, FACP CPT-44167 Ofc Vst, Est Level III 16:44:49 CDT Autumn Shira Becerril Barrientos, DO, FACP CPT-24762 Ofc Vst, Est Level III 12:02:26 CDT Autumn Shira Becerril Barrientos, DO, FACP CPT-23037 Ofc Vst, Est Level III 16:20:59 CDT Autumn Shira Becerril Barrientos, DO, FACP CPT-21262 Ofc Vst, Est Level III 11:47:46 CDT Autumn Shira [facility] CPT-49234 Ofc Vst, Est Level III 15:01:40 CDT Autumn Shira Becerrli Barrientos, DO, FACP CPT-50285 Ofc Vst, Est Level III 15:21:49 CDT Autumn Shira Becerril Barrientos, DO, FACP CPT-99311 Ofc Vst, Est Level III 11:46:40 TRAVEL INSURANCE AGENT Autumn Shira Becerril Barrientos, DO, FACP CPT-98652 Ofc Vst, Est Level III 16:04:08 TRAVEL INSURANCE AGENT Autumn Shira Becerril Barrientos, DO, FACP CPT-11098 Ofc Vst, Est Level III 12:47:46 TRAVEL INSURANCE AGENT Autumn Becerril Barrientos, DO, FACP CPT-33443 Ofc Vst, Est Level III 14:12:37 TRAVEL INSURANCE AGENT Autumn Shira Becerril Barrientos, DO, FACP CPT-05565 Ofc Vst, Est Level III 20:15:48 CDT Autumn Shira Becerril Barrientos, DO, FACP CPT-34655 Ofc Vst, Est Level III 14:50:03 CDT Autumn Shira Becerril Barrientos, DO, FACP CPT-14128 Ofc Vst, Est Level IV 11:07:07 CDT Autumn Shira Becerril Barrientos, DO, FACP CPT-81700 Ofc Vst, Est Level IV 10:56:03 TRAVEL INSURANCE AGENT Autumn Leyva S Barrientos, DO, FACP CPT-44119 Ofc Vst, Est Level III 10:34:42 TRAVEL INSURANCE AGENT Autumn Shira Leyva S Barrientos, DO, FACP CPT-87642 Ofc Vst, Est Level IV 11:18:10 TRAVEL INSURANCE AGENT Autumn Shira Becerril Iliana, DO, FACP CPT-59570 Ofc Vst, Est Level III 10:56:32 CDT Autumn Shira Becerril Iliana, DO, FACP CPT-76004 Ofc Vst, Est Level IV 11:11:23 CDT Autumn Shira Becerril Iliana, DO, FACP CPT-01501 Ofc Vst, Est Level IV 11:24:11 CDT Autumnnicole Becerril Iliana, DO, FACP CPT-31213 Ofc Vst, Est Level III 11:36:54 CDT Autumn Shira Becerril Iliana, DO, FACP CPT-59891 Ofc Vst, Est Level V 15:07:54 CDT Autumn Shira Leyva S Iliana, DO, FACP CPT-79101 Ofc Vst, Est Level III 16:05:11 CDT Autumn Shira Becerril Iliana, DO, FACP CPT-52002 Ofc Vst, Est Level IV 11:19:33 CDT Autumn Becerril Iliana, DO, FACP CPT-94006 Ofc Vst, Est Level III 11:16:56 TRAVEL INSURANCE AGENT Autumn Becerril Barrientos, DO, FACP CPT-35186 Ofc Vst, Est Level IV 11:12:37 TRAVEL INSURANCE AGENT Autumn Becerril Barrientos, DO, FACP CPT-94775 Ofc Vst, Est Level IV 15:21:42 TRAVEL INSURANCE AGENT Autumn Barrientos [facility] CPT-64229 Ofc Vst, Est Level IV 10:49:32 TRAVEL INSURANCE AGENT Autumn Becerril Iliana, DO, FACP CPT-80062 Ofc Vst, Est Level IV 13:16:00 CDT Autumn Becerril Iliana, DO, FACP CPT-74472 Ofc Vst, Est Level IV 10:47:17 CDT Autumnnicole Becerril Iliana, DO, FACP CPT-06397 Ofc Vst, Est Level IV 10:22:32 CDT Autumnnicole Becerril Iliana, DO, FACP CPT-57853 Ofc Vst, Est Level III 10:35:26 CDT Autumn Becerril Iliana, DO, FACP CPT-60873 Ofc Vst, Est Level IV 11:29:20 CDT Autumnnicole Becerril Iliana, DO, FACP CPT-16471 Ofc Vst, Est Level IV 13:52:31 CDT Autumn Shira Becerril Iliana, DO, FACP CPT-37011 Ofc Vst, Est Level IV 11:41:20 CDT Autumn Becerril Iliana, DO, FACP CPT-83115 Ofc Vst, Est Level IV 09:38:08 TRAVEL INSURANCE AGENT Autumn Becerril Iliana, DO, FACP CPT-34503 Ofc Vst, Est Level V 11:02:14 TRAVEL INSURANCE AGENT Autumn Becerril Barrientos, DO, FACP CPT-94454 Ofc Vst, Est Level V 10:30:31 TRAVEL INSURANCE AGENT Autumn Becerril Barrientos, DO, FACP CPT-23724 Ofc Vst, Est Level IV 11:14:50 TRAVEL INSURANCE AGENT Autumn Becerril Barrientos, DO, FACP CPT-03974 Ofc Vst, Est Level V 11:06:34 TRAVEL INSURANCE AGENT Autumn Becerril Barrientos, DO, FACP CPT-71837 Ofc Vst, Est Level IV 11:30:08 TRAVEL INSURANCE AGENT Autumn Becerril Barrientos, DO, FACP CPT-68762 Ofc Vst, Est Level V 11:35:41 CDT Autumn Becerril Iliana, DO, FACP CPT-69056 Ofc Vst, Est Level IV 10:09:46 CDT Autumnnicole Becerril Barrientos, DO, FACP CPT-30516 Ofc Vst, Est Level V 13:55:27 CDT Atuumn Becerril Barrientos, DO, FACP CPT-90484 Ofc Vst, Est Level V 11:20:26 CDT Autumn Becerril Iliana, DO, FACP CPT-27738 Ofc Vst, New Level IV 16:42:29 CDT Autumn Becerril Barrientos, DO, FACP Procedures Code Procedure Name Date Entry Date Standard Description CPT-G0439 Medicare Annual Wellness Visit 10:22:06 TRAVEL INSURANCE AGENT CPT-G0439 Medicare Annual Wellness Visit 15:50:07 CDT CPT-G8446 E-Prescribing not done due to controlled substance 19:01:53 CDT CPT-G8445 E-Prescribing Not sent due to no medication given 16:32:38 TRAVEL INSURANCE AGENT CPT-G8443 E-Prescribing Medication Sent 15:37:57 TRAVEL INSURANCE AGENT CPT-G8445 E-Prescribing Not sent due to no medication given 12:03:55 TRAVEL INSURANCE AGENT CPT-G8445 E-Prescribing Not sent due to no [...] sent due to no medication given 11:46:40 TRAVEL INSURANCE AGENT CPT-G8443 E-Prescribing Medication Sent 16:04:08 TRAVEL INSURANCE AGENT CPT-G8443 E-Prescribing Medication Sent 12:47:46 TRAVEL INSURANCE AGENT CPT-G8445 E-Prescribing Not sent due to no medication given 14:12:37 TRAVEL INSURANCE AGENT CPT-G8445 E-Prescribing Not sent due to no medication given 12:46:38 CDT CPT-55737 Ear Wax Removal 12:46:38 CDT CPT-G8443 E-Prescribing Medication Sent 20:15:48 CDT CPT-G0438 Medicare Annual Wellness Visit Initial 11:42:23 CDT
--- OUTSIDE RECORDS SUMMARY | 2019-03-13 00:17 | XMS REPORT | Clinical Summary ---
Author Author User, Setup Organization Autumn Barrientos DO, FACP Address Unknown [...] Coronary atherosclerosis of unspecified type of vessel, lovelock or graft SEIZURE 780.3 Active Autumn Barrientos [...] MG CAP 1 po BID DOXYCYCLINE HYCLATE 49379731402 No Longer Active Autumn Barrientos PREDNISONE 10 MG TAB 4 PO at one time once daily for 2 days, then 3 PO at one time once daily for 2 days, and 2 PO at one time once daily for 2 days, and then 1 PO daily for 2 days. PREDNISONE 46920461119 No Longer Active Autumn Barrientos SYNTHROID 0.075 MG TAB 1 PO daily LEVOTHYROXINE SODIUM 33571171025 Active Autumn Barrientos NYSTATIN SUSP 5 ML PO Q 6 HRS NYSTATIN SUSP 02731178888 No Longer Active Autumn Barrientos AMIODARONE HCL 400 MG TABS 1 PO every other day AMIODARONE HCL 51925085468 No Longer Active Autumn Barrientos PREDNISONE 10 MG TABS TAKE 4 TABS PO DAILY X 2 DAYS, THEN 3 PILLS PO DAILY X 2 DAYS, THEN 2 PILLS PO DAILY X 2 DAYS, THEN ONE PILL PO DAILY X 2 DAYS PREDNISONE 75310244207 No Longer Active Autumn Barrientos VITAMIN C 500 MG TABS 2 po daily ASCORBIC ACID 41025650366 No Longer Active Autumn Barrientos HYDROCODONE-ACETAMINOPHEN 5-325 MG TABS 1-2 PO Q4-6 hrs prn pain HYDROCODONE-ACETAMINOPHEN 68147653643 No Longer Active Autumn Barrientos ZOCOR 10 MG TAB 1 PO Daily SIMVASTATIN 69570925038 Active Autumn Barrientos TRANSDERM-SCOP 1.5 MG PT72 1 patch behind ear and change every 3 days SCOPOLAMINE BASE 28477634733 No Longer Active Autumnnicole Barrientos LISINOPRIL 5 MG TABS 1 po daily LISINOPRIL 67529354576 Active Autumn Shira Barrientos DIGOXIN 0.25 MG TABS 1 PO daily DIGOXIN 14547116080 Active Autumn Shira Barrientos TOPROL XL 25 MG [id number] 2 PO daily METOPROLOL SUCCINATE 90525193271 Active Autumn Shira Barrientos VALIUM 2 MG TAB 1/2 - 1 PO BID prn muscle spasm DIAZEPAM 18186326528 No Longer Active Autumn Shira Barrientos KENALOG 0.1 % CREA apply to affected areas BID TRIAMCINOLONE ACETONIDE No Longer Active Autumnnicole Barrientos PREDNISONE 20 MG TAB 2 pills at once for 2 days then 1 pill daily for 5 days PREDNISONE 45747810987 No Longer Active Autumn Barrientos DOXYCYCLINE HYCLATE 100 MG CAP 1 po BID DOXYCYCLINE HYCLATE 86329769703 No Longer Active Autumnnicole Barrientos CALMOSEPTINE 0.44-20.625 % OINT Apply to affected areas TID prn MENTHOL-ZINC OXIDE 82288058820 Active Autumnnicole Barrientos BIAXIN 500 MG TAB 1 PO BID CLARITHROMYCIN 49185560235 No Longer Active Autumn Barrientos PREDNISONE 20 MG TAB 2 pills at once for 3 days then 1 pill daily for 5 days PREDNISONE 25639972384 No Longer Active Prabha Carmona PREDNISONE 20 MG TAB 2 pills at once for 4 days then 1 pill daily for 4 days PREDNISONE 66721883276 No Longer Active Autumnnicole Barrientos LEVAQUIN 500 MG TAB 1 PO QD LEVOFLOXACIN 48577349165 No Longer Active Autumnnicole Barrientos TYLENOL 325 MG TABS 2 po q 4 hrs prn pain ACETAMINOPHEN 52584575721 No Longer Active Autumn Shira Barrientos CALMOSEPTINE 0.44-20.625 % OINT Apply to affected area QID prn MENTHOL-ZINC OXIDE 18964641881 No Longer Active Autumn Shira Barrientos JANE ALLERGY 180 MG TABS 1 PO daily FEXOFENADINE HCL 31531311933 No Longer Active Autumn Shira Barrientos VALIUM 2 MG TAB 1 PO QHS prn DIAZEPAM 34782026588 No Longer Active Autumn Shira Barrientos FLEXERIL 10 MG TAB 1 PO QHS prn CYCLOBENZAPRINE HCL 96835002677 No Longer Active Autumn Shira Barrientos ANUSOL-HC 2.5 % CREA apply to affected area on rectum TID prn. HYDROCORTISONE 26990890085 No Longer Active Autumnnicole Barrientos LOTRISONE 0.05-1 % CREAM apply to affected areas twice daily CLOTRIMAZOLE-BETAMETHASONE 59837903720 No Longer Active Autumn Shira Barrientos SINGULAIR 10 MG TABS 1 PO QHS MONTELUKAST SODIUM 46911493283 Active Autumnnicole Barrientos PREDNISONE 20 MG TAB 2 pills at once for 3 days then 1 pill daily for 5 days PREDNISONE 63889002665 No Longer Active Autumn Barrientos FUROSEMIDE 40 MG TABS 1 PO every day FUROSEMIDE 12915816102 Active Briana Alford TAMIFLU 75 MG CAPS 1 PO DAILY X 10 DAYS OSELTAMIVIR PHOSPHATE 67360874677 No Longer Active Autumnnicole Barrientos PREDNISONE 20 MG TABS 1 PO DAILY x 7 days then DC PREDNISONE 43944177267 No Longer Active Autumnnicole Barrientos PREDNISONE 20 MG TAB 2 pills at once for 3 days then 1 pill daily for 3 days PREDNISONE 31512412255 No Longer Active Autumn Shira Barrientos DOXYCYCLINE HYCLATE 100 MG CAP 1 po BID DOXYCYCLINE HYCLATE 80641642446 No Longer Active Autumn Barrientos DOCUSATE SODIUM 60 MG/15ML SYRP 2 drops left ear let stand for 5 minutes then rinse. Use daily for 7 days then return to office for flushing of ears DOCUSATE SODIUM 02309863459 No Longer Active Autumn Barrientos PREDNISONE 20 MG TAB 2 pills at once for 3 days then 1 pill daily for 3 days PREDNISONE 31853586088 No Longer Active Autumn Barrientos DOXYCYCLINE HYCLATE 100 MG CAP 1 po BID DOXYCYCLINE HYCLATE 49650868271 No Longer Active Autumn Barrientos MOBIC 15 MG TABS 1 PO daily for knee pain MELOXICAM 49533332638 No Longer Active Autumn Barrientos VITAMIN D 1000 UNIT TABS 2 PO Daily CHOLECALCIFEROL 36924688277 Active Autumn Barrientos DILANTIN 100 MG CAPS 2 PO QAM and 3 PO QPM PHENYTOIN SODIUM EXTENDED 78719086505 Active Briana Alford PLAVIX 75 MG TABS 1 PO every other day CLOPIDOGREL BISULFATE 69489122107 No Longer Active Autumn Barrientos PREDNISONE 20 MG TAB 3 pills daily at once for 2 days, 2 pills daily at once for 2 days, 1 once daily for 2 days PREDNISONE 37284563704 No Longer Active Autumn Barrientos LEVAQUIN 500 MG TAB 1 PO QD LEVOFLOXACIN 84692043702 No Longer Active Autumn Barrientos ZOSTAVAX 70413 UNT/0.65ML SOLR 1 injection once to prevent Shingles ZOSTER VACCINE LIVE 47354502453 No Longer Active Autumn Barrientos SYMBICORT 160-4.5 MCG/ACT AERO 2 puffs twice daily BUDESONIDE-FORMOTEROL FUMARATE 67893085668 Active Briana Alford ATROVENT 0.06 % SOLN 2 puffs each nostril TID prn runny nose IPRATROPIUM BROMIDE 73222192768 No Longer Active Autumn Barrientos PREDNISONE 20 MG TAB 3 pills daily at once for 2 days, 2 pills daily at once for 2 days, 1 once daily for 2 days PREDNISONE 88962272503 No Longer Active Autumnnicoel Barrientos BIAXIN 500 MG TAB 1 PO BID CLARITHROMYCIN 60790193182 No Longer Active Autumn Barrientos MOBIC 15 MG TABS 1 po daily MELOXICAM 37846847946 No Longer Active Autumn Barrientos PREDNISONE 20 MG TAB 3 pills daily at once for 2 days, 2 pills daily at once for 2 days, 1 once daily for 2 days PREDNISONE 31199231232 No Longer Active Autumn Barrientos TESSALON 200 MG CAPS 1 PO TID prn cough BENZONATATE 40722768878 No Longer Active Autumn Barrientos AUGMENTIN 500-125 MG TAB 1 PO BID AMOXICILLIN-POT CLAVULANATE 77360226289 No Longer Active Autumn HANLEY NASAL SPRAY (DEXAMETHASONE, GENTAMICIN, SALINE) 2 puffs each nostril TID for [address] HANLEY NASAL SPRAY (DEXAMETHASONE, GENTAMICIN, SALINE) No Longer Active Autumn Barrientos LOTRISONE 0.05-1 % CREAM Apply BID to affected areas CLOTRIMAZOLE-BETAMETHASONE 88523642833 No Longer Active Autumn Barrientos ACYCLOVIR 800 MG TABS 1 PO five times a day for 10 days ACYCLOVIR 98696035217 No Longer Active Autumn Barrientos LORTAB 5 5-500 MG TABS 1 to 2 PO Q6hrs prn ACETAMINOPHEN-HYDROCODONE 16251348852 No Longer Active Autumn Shira Barrientos VALTREX 1 GM TAB 1 PO BID VALACYCLOVIR HCL 65890612188 No Longer Active Autumn Shira Barrientos NYSTATIN 168746 U/ML SUSP 5cc PO QID for 7 days NYSTATIN 10210456543 No Longer Active Autumn Shira Barrientos DIFLUCAN 100 MG TAB 1 PO daily for five days FLUCONAZOLE 70583906595 No Longer Active Autumn Shira Barrientos MIRALAX POWD 1 scoop in 4oz of water PO daily POLYETHYLENE GLYCOL 3350 45881028202 Active Autumn Shira Barrientos BIAXIN 500 MG TAB 1 PO BID CLARITHROMYCIN 23626645947 No Longer Active Autumn Shira Barrientos MUCINEX 600 MG [id number] 1 po BID prn as needed GUAIFENESIN 26311970860 Active Autumn Shira Barrientos PREDNISONE 10 MG TAB 1 PO daily PREDNISONE 71172815104 No Longer Active Autumn Shira Barrientos ALBUTEROL SULFATE 0.083 % NEBU SOLN 1 Treatment QID ALBUTEROL SULFATE 97341819586 Active Autumn Shira Barrientos DARVOCET-N 100 100-650 MG TAB 1 PO Q4hrs prn pain PROPOXYPHENE N-APAP 03802349976 No Longer Active Autumn Shira Barrientos ASPIRIN 81 MG TAB 1 PO daily ASPIRIN 92643034475 Active Autumn Shira Barrientos COREG 25 MG TABS 1 po BID CARVEDILOL 57033588288 No Longer Active Autumn Shira Barrientos ALDACTONE 25 MG TABS 1/2 po every other day SPIRONOLACTONE 50311344630 No Longer Active Autumn Shira Barrientos CHLORPHENIRAMINE MALEATE 4 MG TABS 1 PO Q6hrs prn for cold CHLORPHENIRAMINE MALEATE 36161496945 No Longer Active Autumn Shirajudy Barrientos PREDNISONE 20 MG TAB 2 pills at once for 3 days then 1 pill daily for 3 days PREDNISONE 07707541198 No Longer Active Autumn Barrientos BIAXIN 500 MG TAB 1 PO BID CLARITHROMYCIN 28869998521 No Longer Active Autumn Shira Barrientos CHLORHEXIDINE GLUCONATE 0.12 % SOLN Rinse mouth 2 times a day CHLORHEXIDINE GLUCONATE 31816514790 Active Autumn Shiragabreil Barrientos COUMADIN 5 MG TABS 1 po daily WARFARIN SODIUM 05983777675 No Longer Active Autumn Shira Barrientos PHENOBARBITAL 64.8 MG TABS 2 po at HS PHENOBARBITAL 99521710145 Active Briana Alford Immunizations Vaccine Administration Date [...] 100 mL/min/1.73m2 glucose, plasma fasting 104 mg/dL albumin, serum 4.2 g/dL alkaline phosphatase, serum 132 U/L urea nitrogen, blood 15 mg/dL calcium, serum 9.0 mg/dL chloride, serum 106 mmol/L carbon dioxide, venous blood 29.0 mmol/L creatinine, serum 0.8 mg/dL ferritin, serum 74.6 ng/mL anion gap, serum 12 sodium, serum 142 mmol/L bilirubin, serum, total 0.4 mg/dL alanine aminotransferase (SGPT), serum 26 U/L aspartate aminotransferase (SGOT), serum 20 U/L protein, total, serum 6.9 g/dL potassium, serum 4.9 mmol/L Clinical Lists Update: CBC,CMP,Dilantin,Digoxin,Ferritin - Hematology red blood cell distribution width 14.5 % platelet count 154 10*3/mm3 mean corpuscular volume, RBC 98 fL hematocrit, blood 42 % hemoglobin, blood 13.2 g/dL erythrocyte (RBC) count 4.25 10*6/mm3 leukocyte count, blood 5.2 10*3/mm3 Clinical Lists Update: CBC,CMP,Dilantin,Digoxin,Ferritin - Toxicology digoxin level, serum 1.1 ng/mL phenytoin level, serum 11.7 ug/mL Clinical Lists Update: CBC,CMP,UA IN PT LABS - Chemistry Estimated Glomerular Filtration Rate (calc) >60 mL/min/1.73m2 glucose, plasma fasting 148 mg/dL albumin, serum 3.1 g/dL alkaline phosphatase, serum 97 U/L urea nitrogen, blood 15 mg/dL calcium, serum 8.4 mg/dL chloride, serum 101 mmol/L carbon dioxide, venous blood 26 mmol/L sodium, serum 133 mmol/L bilirubin, serum, total 0.3 mg/dL alanine aminotransferase (SGPT), serum 23 U/L aspartate aminotransferase (SGOT), serum 15 U/L protein, total, serum 6.1 g/dL potassium, serum 4.0 mmol/L creatinine, serum 1.12 mg/dL Clinical Lists Update: CBC,CMP,UA IN PT LABS - Hematology platelet count 116 10*3/mm3 erythrocyte (RBC) count 3.37 10*6/mm3 leukocyte count, blood 5.7 10*3/mm3 mean corpuscular volume, RBC 94 fL red blood cell distribution width 14.3 % hemoglobin, blood 10.6 g/dL hematocrit, blood 32 % Clinical Lists Update: CBC,CMP,UA IN PT LABS - Urinalysis blood in urine (hemoglobin) by dipstick 3+ mucus on urinalysis neg hyaline casts, urine none /[LPF] bacteria, urine microscopy moderate RBC urine by microscopy 2-5 WBC urine on microscopy 25-50 {Cells}/[HPF] appearance, urine Cloudy Yellow urobilinogen, urine, semiquantitative (dipstick) 1 specific gravity, urine 1.025 pH, urine, semiquantitative 5 nitrite, urine, semiquantitative neg ketones, urine, by test strip neg bilirubin, urine neg glucose, urine, semiquantitative neg protein, urine, semiquantitative (dipstick) 3+ Clinical Lists Update: CMP,FLP,Digoxin [facility] - Chemistry cholesterol, serum 177 mg/dL Estimated Glomerular Filtration Rate (calc) 96 mL/min/1.73m2 creatinine, serum 0.8 mg/dL HDL cholesterol, serum 31.0 mg/dL LDL cholesterol, serum 114 mg/dL potassium, serum 4.4 mmol/L protein, total, serum 7.1 g/dL aspartate aminotransferase (SGOT), serum 17 U/L alanine aminotransferase (SGPT), serum 23 U/L bilirubin, serum, total 0.3 mg/dL triglyceride, serum, fasting 160 mg/dL sodium, serum 137 mmol/L anion gap, serum 9 carbon dioxide, venous blood 34.0 mmol/L cholesterol/HDL ratio, serum, percent 5.7 glucose, plasma fasting 106 mg/dL chloride, serum 98 mmol/L calcium, serum 9.4 mg/dL urea nitrogen, blood 16 mg/dL alkaline phosphatase, serum 170 U/L albumin, serum 4.3 g/dL Clinical Lists Update: CMP,FLP,Digoxin [facility] - Toxicology digoxin level, serum 1.1 ng/mL Clinical Lists Update: CMP,PT,INR,TSH,Digoxin [facility] - Chemistry albumin, serum 4.2 g/dL alkaline phosphatase, serum 127 U/L urea nitrogen, blood 15 mg/dL calcium, serum 9.3 mg/dL chloride, serum 100 mmol/L carbon dioxide, venous blood 32.0 mmol/L creatinine, serum 0.9 mg/dL thyroid stimulating hormone, serum 3.07 u[iU]/mL potassium, serum 4.7 mmol/L protein, total, serum 7.0 g/dL aspartate aminotransferase (SGOT), serum 24 U/L alanine aminotransferase (SGPT), serum 30 U/L bilirubin, serum, total 0.4 mg/dL anion gap, serum 12 glucose, plasma fasting 100 mg/dL Estimated Glomerular Filtration Rate (calc) 92 mL/min/1.73m2 sodium, serum 139 mmol/L Clinical Lists Update: CMP,PT,INR,TSH,Digoxin [facility] - Coagulation international normalized ratio (INR) 0.99 prothrombin time (patient) 12.60 s Clinical Lists Update: CMP,PT,INR,TSH,Digoxin [facility] - Toxicology digoxin level, serum 0.9 ng/mL Clinical Lists Update: UA - Urinalysis ketones, urine, by test strip neg bilirubin, urine neg glucose, urine, semiquantitative neg nitrite, urine, semiquantitative neg specific gravity, urine <1.005 protein, urine, semiquantitative (dipstick) neg pH, urine, semiquantitative 6.0 Office Visit: Dr [...] hormone, serum 3.13 u[iU]/mL Office Visit: Dr Barrientos'mj Check Up: Established [...] ng/mL Encounters Code Encounter Date Provider Facility CPT-29576 Ofc Vst, Est Level III 14:19:06 CDT Autumnnicole Becerril Barrientos, DO, FACP CPT-29105 Ofc Vst, Est Level III 13:33:45 CDT Autumn Shira Becerril Barrientos, DO, FACP CPT-39011 Ofc Vst, Est Level III 17:12:01 CDT Autumn Shira Becerril Barrientos, DO, FACP CPT-89905 Ofc Vst, Est Level IV 21:01:56 CDT Autumn Shira Becerril Barrientos, DO, FACP CPT-88712 Ofc Vst, Est Level III 15:48:19 STOREPERSON Autumn Becerril Barrientos, DO, FACP CPT-32989 Ofc Vst, Est Level IV 15:01:25 STOREPERSON Autumn Becerril Barrientos, DO, FACP CPT-35055 Ofc Vst, Est Level III 16:54:20 STOREPERSON Autumn Becerril Barrientos, DO, FACP CPT-83717 Ofc Vst, Est Level III 19:49:29 CDT Autumnnicole Becerril Barrientos, DO, FACP CPT-55746 Ofc Vst, Est Level III 19:25:35 CDT Autumnnicole Becerril Barrientos, DO, FACP CPT-27094 Ofc Vst, Est Level III 19:01:53 CDT Autumnnicole Becerril Barrientos, DO, FACP CPT-91543 Ofc Vst, Est Level III 16:32:38 STOREPERSON Autumn Becerril Barrientos, DO, FACP CPT-23460 Ofc Vst, Est Level III 15:37:57 STOREPERSON Autumn Barrientos [facility] CPT-36844 Ofc Vst, Est Level III 12:03:55 STOREPERSON Autumn Becerril Barrientos, DO, FACP CPT-44313 Ofc Vst, Est Level III 15:47:39 CDT Autumn Shira Becerril Barrientos, DO, FACP CPT-52690 Ofc Vst, Est Level III 16:50:03 CDT Autumn Shira Becerril Barrientos, DO, FACP CPT-46024 Ofc Vst, Est Level III 16:44:49 CDT Autumn Shira Becerril Barrientos, DO, FACP CPT-42284 Ofc Vst, Est Level III 12:02:26 CDT Autumn Shira Becerril Barrientos, DO, FACP CPT-31004 Ofc Vst, Est Level III 16:20:59 CDT Autumnnicole Becerril Barrientos, DO, FACP CPT-96443 Ofc Vst, Est Level III 11:47:46 CDT Autumn Shira [facility] CPT-04688 Ofc Vst, Est Level III 15:01:40 CDT Autumn Shira Becerril Barrientos, DO, FACP CPT-79714 Ofc Vst, Est Level III 15:21:49 CDT Autumnnicole Becerril Barrientos, DO, FACP CPT-38009 Ofc Vst, Est Level III 11:46:40 STOREPERSON Autumn Shira Becerril Barrientos, DO, FACP CPT-34756 Ofc Vst, Est Level III 16:04:08 STOREPERSON Autumn Shira Becerril Barrientos, DO, FACP CPT-77162 Ofc Vst, Est Level III 12:47:46 STOREPERSON Autumn Becerril Barrientos, DO, FACP CPT-00636 Ofc Vst, Est Level III 14:12:37 STOREPERSON Autumn Shira Becerril Barrientos, DO, FACP CPT-34847 Ofc Vst, Est Level III 20:15:48 CDT Autumnnicole Becerril Barrientos, DO, FACP CPT-76375 Ofc Vst, Est Level III 14:50:03 CDT Autumn Shira Becerril Barrientos, DO, FACP CPT-46281 Ofc Vst, Est Level IV 11:07:07 CDT Autumn Shira Becerril Barrientos, DO, FACP CPT-51328 Ofc Vst, Est Level IV 10:56:03 STOREPERSON Autumn Becerril Barrientos, DO, FACP CPT-26584 Ofc Vst, Est Level III 10:34:42 STOREPERSON Autumn Shira Leyva S Iliana, DO, FACP CPT-46558 Ofc Vst, Est Level IV 11:18:10 STOREPERSON Autumn Becerril Iliana, DO, FACP CPT-06533 Ofc Vst, Est Level III 10:56:32 CDT Autumnnicole Becerril Iliana, DO, FACP CPT-81089 Ofc Vst, Est Level IV 11:11:23 CDT Autumn Shira Becerril Iliana, DO, FACP CPT-77865 Ofc Vst, Est Level IV 11:24:11 CDT Autumnnicole Becerril Iliana, DO, FACP CPT-75208 Ofc Vst, Est Level III 11:36:54 CDT Autumn Shira Becerril Barrientos, DO, FACP CPT-38878 Ofc Vst, Est Level V 15:07:54 CDT Autumn Shira Leyva S Barrientos, DO, FACP CPT-46543 Ofc Vst, Est Level III 16:05:11 CDT Autumnnicole Becerril Iliana, DO, FACP CPT-65125 Ofc Vst, Est Level IV 11:19:33 CDT Autumn Shira Becerril Barrientos, DO, FACP CPT-92036 Ofc Vst, Est Level III 11:16:56 STOREPERSON Autumn Becerril Barrientos, DO, FACP CPT-68165 Ofc Vst, Est Level IV 11:12:37 STOREPERSON Autumn Becerril Barrientos, DO, FACP CPT-86482 Ofc Vst, Est Level IV 15:21:42 STOREPERSON Autumn [facility] OFFICE CPT-24927 Ofc Vst, Est Level IV 10:49:32 STOREPERSON Autumn Becerril Iliana, DO, FACP CPT-34974 Ofc Vst, Est Level IV 13:16:00 CDT Autumn Becerril Iliana, DO, FACP CPT-63157 Ofc Vst, Est Level IV 10:47:17 CDT Autumnnicole Becerril Iliana, DO, FACP CPT-91940 Ofc Vst, Est Level IV 10:22:32 CDT Autumnnicole Becerril Iliana, DO, FACP CPT-42040 Ofc Vst, Est Level III 10:35:26 CDT Autumnnicole Becerril Iliana, DO, FACP CPT-64638 Ofc Vst, Est Level IV 11:29:20 CDT Autumn Shira Becerril Iliana, DO, FACP CPT-98141 Ofc Vst, Est Level IV 13:52:31 CDT Autumn Shira Becerril Barrientos, DO, FACP CPT-49461 Ofc Vst, Est Level IV 11:41:20 CDT Autumn Becerril Barrientos, DO, FACP CPT-67668 Ofc Vst, Est Level IV 09:38:08 STOREPERSON Autumn Shira Becerril Iliana, DO, FACP CPT-06984 Ofc Vst, Est Level V 11:02:14 STOREPERSON Autumn Becerril Barrientos, DO, FACP CPT-32250 Ofc Vst, Est Level V 10:30:31 STOREPERSON uAtumn Becerril Barrientos, DO, FACP CPT-18249 Ofc Vst, Est Level IV 11:14:50 STOREPERSON Autumn Becerril Barrientos, DO, FACP CPT-97868 Ofc Vst, Est Level V 11:06:34 STOREPERSON Autumn Becerril Barrientos, DO, FACP CPT-25318 Ofc Vst, Est Level IV 11:30:08 STOREPERSON Autumn Becerril Barrientos, DO, FACP CPT-58943 Ofc Vst, Est Level V 11:35:41 CDT Autumn Becerril Iliana, DO, FACP CPT-75256 Ofc Vst, Est Level IV 10:09:46 CDT Autumnnicole Becerril Barrientos, DO, FACP CPT-01051 Ofc Vst, Est Level V 13:55:27 CDT Autumn Shira Becerril Barrientos, DO, FACP CPT-25489 Ofc Vst, Est Level V 11:20:26 CDT Autumn Becerril Iliana, DO, FACP CPT-63617 Ofc Vst, New Level IV 16:42:29 CDT Autumn Becerril Barrientos, DO, FACP Procedures Code Procedure Name Date Entry Date Standard Description CPT-G0439 Medicare Annual Wellness Visit 10:22:06 STOREPERSON CPT-G0439 Medicare Annual Wellness Visit 15:50:07 CDT CPT-G8446 E-Prescribing not done due to controlled substance 19:01:53 CDT CPT-G8445 E-Prescribing Not sent due to no medication given 16:32:38 STOREPERSON CPT-G8443 E-Prescribing Medication Sent 15:37:57 STOREPERSON CPT-G8445 E-Prescribing Not sent due to no medication given 12:03:55 STOREPERSON CPT-G8445 E-Prescribing Not sent due to no [...] sent due to no medication given 11:46:40 STOREPERSON CPT-G8443 E-Prescribing Medication Sent 16:04:08 STOREPERSON CPT-G8443 E-Prescribing Medication Sent 12:47:46 STOREPERSON CPT-G8445 E-Prescribing Not sent due to no medication given 14:12:37 STOREPERSON CPT-G8445 E-Prescribing Not sent due to no medication given 12:46:38 CDT CPT-43464 Ear Wax Removal 12:46:38 CDT CPT-G8443 E-Prescribing Medication Sent 20:15:48 CDT CPT-G0438 Medicare Annual Wellness Visit Initial 11:42:23 CDT
[2019-03-13 00:23] LABS: BASOPHILS % (AUTO) 0 % (0-10); EOSINOPHILS # (AUTO) 0.2 10^3/uL (0.0-0.3); EOSINOPHILS % (AUTO) 2 % (0-10); HEMATOCRIT 40 % (40-54); HEMOGLOBIN 13.6 G/DL (13.3-17.7); LYMPHOCYTES # (AUTO) 1.2 X 10^3 (1.0-4.0); LYMPHOCYTES % (AUTO) 18 % (12-44); MEAN CORPUSCULAR HEMOGLOBIN 32 PG (25-34); MEAN CORPUSCULAR HGB CONC 34 G/DL (32-36); MEAN CORPUSCULAR VOLUME 93 FL (80-99); MEAN PLATELET VOLUME 10.2 FL (7.4-10.4); MONOCYTES % (AUTO) 14 % (0-12); NEUTROPHILS # (AUTO) 4.6 X 10^3 (1.8-7.8); NEUTROPHILS % (AUTO) 66 % (42-75); PLATELET COUNT 178 10^3/uL (130-400); RED CELL DISTRIBUTION WIDTH 13.7 % (10.0-14.5)
--- OUTSIDE RECORDS SUMMARY | 2019-03-13 00:29 | XMS REPORT | Continuity of Care Document ---
Author Organization Unknown Address Unknown Allergies Active Description Code Type Severity Reaction Onset Reported/Identified Relationship to Patient Clinical Status Yes No Known Drug Allergies [id number] Drug Allergy Unknown N/A 10/17/2009 Yes lorazepam [id number] Drug Allergy Unknown N/A 11/22/2015 Yes scopolamine [id number] Drug Allergy Unknown N/A 11/22/2015 Medications There is no data. Problems Date Dx Coded Attending Type Code Diagnosis Diagnosed By RINKU MELENDEZ Ot M54.32 SCIATICA, LEFT SIDE 08/01/1026 MEENA GAO, ELSA Cantor Ot R29.6 REPEATED FALLS 08/01/1026 MEENA GAO, ELSA Cantor Ot R42 DIZZINESS AND GIDDINESS 08/01/1219 MEENA GAO, ELSA Cantor Ot R29.6 REPEATED FALLS 08/01/1219 MEENA GAO, ELSA Cantor Ot R42 DIZZINESS AND GIDDINESS 08/01/1346 MARTINEZ CHEN Ot R26.89 OTHER ABNORMALITIES OF GAIT AND MOBILITY 08/01/1433 RONAK JOY DO Ot R26.81 UNSTEADINESS ON FEET 08/31/2009 Ot 786.07 12/28/2009 Ot 272.4 12/28/2009 Ot 345.90 12/28/2009 Ot 414.01 12/28/2009 Ot 414.8 12/28/2009 Ot 424.0 12/28/2009 Ot 433.10 12/28/2009 Ot 438.89 12/28/2009 Ot 493.90 12/28/2009 Ot 530.81 12/28/2009 Ot 722.52 12/28/2009 Ot V45.02 12/28/2009 Ot V45.81 12/28/2009 Ot V58.61 04/03/2010 Ot V45.82 04/03/2010 Ot V57.89 09/04/2010 Ot 345.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 09/04/2010 Ot 345.2 PETIT MAL STATUS 09/04/2010 Ot 401.9 HYPERTENSION NOS 09/04/2010 Ot 412 OLD MYOCARDIAL INFARCT 09/04/2010 Ot 414.00 CORON ATHEROSCLER NOS TYPE VESSEL, NATIV 09/04/2010 Ot 491.22 OBSTRUCTIVE CHRONIC BRONCHITIS WITH ACUT 09/04/2010 Ot 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 09/04/2010 Ot V12.61 PERSONAL HISTORY, PNEUMONIA (RECURRENT) 09/04/2010 Ot V15.82 HISTORY OF TOBACCO USE 09/04/2010 Ot V45.02 AUTO IMPLANTABLE CARDIAC DEFIBRILLATOR I 09/04/2010 Ot V45.78 ACQRD ABSENCE OF EYE 09/04/2010 Ot V45.79 ACQRD ABSENCE OF OTH ORGAN 09/04/2010 Ot V45.81 AORTOCORONARY BYPASS 09/04/2010 Ot V46.2 SUPPLEMENTAL OXYGEN 09/04/2010 Ot V58.63 LONG-TERM(CURRENT)USE OF ANTIPLATELET/AN 10/12/2010 Ot 211.3 BENIGN NEOPLASM LG BOWEL 10/12/2010 Ot 496 CHR AIRWAY OBSTRUCT NEC 10/12/2010 Ot 786.2 COUGH 10/12/2010 Ot V76.51 SCREEN MAL NEOP- COLON 01/05/2011 Ot 272.4 HYPERLIPIDEMIA NEC/NOS 01/05/2011 Ot 276.1 HYPOSMOLALITY 01/05/2011 Ot 345.90 EPILEPSY UNSPEC W/O MENTION INTRACTABLE 01/05/2011 Ot 412 OLD MYOCARDIAL INFARCT 01/05/2011 Ot 414.01 CORONARY ATHEROSCLEROSIS OF [place] CORON 01/05/2011 Ot 414.8 CHR ISCHEMIC HRT DIS NEC 01/05/2011 Ot 416.8 CHR PULMON HEART DIS NEC 01/05/2011 Ot 428.0 CONGESTIVE HEART FAILURE NOS 01/05/2011 Ot 428.23 ACUTE CHRONIC SYSTOLIC HRT FAILURE 01/05/2011 Ot 491.22 OBSTRUCTIVE CHRONIC BRONCHITIS WITH ACUT 01/05/2011 Ot 493.90 ASTHMA, UNSPECIFIED 01/05/2011 Ot 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 01/05/2011 Ot 530.81 ESOPHAGEAL REFLUX 01/05/2011 Ot 585.9 CHRONIC KIDNEY DISEASE, UNSPECIFIED 01/05/2011 Ot E944.4 ADV EFF DIURETICS NEC 01/05/2011 Ot V15.82 HISTORY OF TOBACCO USE 01/05/2011 Ot V45.02 AUTO IMPLANTABLE CARDIAC DEFIBRILLATOR I 01/05/2011 Ot V45.81 AORTOCORONARY BYPASS 01/05/2011 Ot V45.82 PERCUTANEOUS TRANSLUM CORON ANGIOPLASTY 10/14/2011 Ot 881.00 OPEN WOUND OF FOREARM 10/14/2011 Ot E000.8 OTHER EXTERNAL CAUSE STATUS 10/14/2011 Ot E849.0 ACCIDENT IN HOME 10/14/2011 Ot E917.4 STAT OB W/O SUB FALL NEC 10/14/2011 Ot V06.1 [id number], COMBINED [ 10/09/2012 Ot 263.9 PROTEIN-JUANA MALNUTR NOS 10/09/2012 Ot 272.4 HYPERLIPIDEMIA NEC/NOS 10/09/2012 Ot 276.1 HYPOSMOLALITY 10/09/2012 Ot 276.8 HYPOPOTASSEMIA 10/09/2012 Ot 285.9 ANEMIA NOS 10/09/2012 Ot 289.84 HEPARIN-INDUCED THROMBOCYTOPENIA (HIT) 10/09/2012 Ot 345.90 EPILEPSY UNSPEC W/O MENTION INTRACTABLE 10/09/2012 Ot 412 OLD MYOCARDIAL INFARCT 10/09/2012 Ot 414.01 CORONARY ATHEROSCLEROSIS OF [place] CORON 10/09/2012 Ot 414.8 CHR ISCHEMIC HRT DIS NEC 10/09/2012 Ot 426.3 LEFT BB BLOCK NEC 10/09/2012 Ot 428.0 CONGESTIVE HEART FAILURE NOS 10/09/2012 Ot 428.23 ACUTE CHRONIC SYSTOLIC HRT FAILURE 10/09/2012 Ot 486 PNEUMONIA, ORGANISM NOS 10/09/2012 Ot 487.0 INFLUENZA WITH PNEUMONIA 10/09/2012 Ot 496 CHR AIRWAY OBSTRUCT NEC 10/09/2012 Ot 518.81 ACUTE RESPIRATORY FAILURE 10/09/2012 Ot 790.6 ABN BLOOD CHEMISTRY NEC 10/09/2012 Ot 792.1 ABN FIND-STOOL CONTENTS 10/09/2012 Ot V12.54 PERSONAL HX OF TIA, CEREBRAL INFARCTION 10/09/2012 Ot V45.02 AUTO IMPLANTABLE CARDIAC DEFIBRILLATOR I 10/09/2012 Ot V45.82 PERCUTANEOUS TRANSLUM CORON ANGIOPLASTY 10/16/2012 Ot 112.0 THRUSH 10/16/2012 Ot 276.1 HYPOSMOLALITY 10/16/2012 Ot 287.5 THROMBOCYTOPENIA NOS 10/16/2012 Ot 345.90 EPILEPSY UNSPEC W/O MENTION INTRACTABLE 10/16/2012 Ot 414.8 CHR ISCHEMIC HRT DIS NEC 10/16/2012 Ot 426.3 LEFT BB BLOCK NEC 10/16/2012 Ot 428.0 CONGESTIVE HEART FAILURE NOS 10/16/2012 Ot 428.23 ACUTE CHRONIC SYSTOLIC HRT FAILURE 10/16/2012 Ot 491.21 OBSTR CHRONIC BRONCHITIS, W (ACUTE) EXAC 10/16/2012 Ot 781.2 ABNORMALITY OF GAIT 10/16/2012 Ot 790.6 ABN BLOOD CHEMISTRY NEC 10/16/2012 Ot V57.1 PHYSICAL THERAPY NEC 10/16/2012 Ot V57.21 ENCOUNTER FOR OCCUPATIONAL THERAPY 10/16/2012 Ot V58.89 OTHER SPECIFIED AFTERCARE 12/03/2012 Ot 728.87 MUSCLE WEAKNESS (GENERALIZED) 12/03/2012 Ot V57.21 ENCOUNTER FOR OCCUPATIONAL THERAPY 05/05/2014 RONAK JOY DO Ot 272.0 PURE HYPERCHOLESTEROLEM 05/05/2014 DWAYNE JOY DOI Ot 276.51 DEHYDRATION 05/05/2014 BENITA ESTRADA RONAK Ot 276.7 HYPERPOTASSEMIA 05/05/2014 BENITA ESTRADA RONAK Ot 345.90 EPILEPSY UNSPEC W/O MENTION INTRACTABLE 05/05/2014 BENITA ESTRADA RONAK Ot 412 OLD MYOCARDIAL INFARCT 05/05/2014 BENITA ESTRADA RONAK Ot 414.00 CORON ATHEROSCLER NOS TYPE VESSEL, NATIV 05/05/2014 BENITA ESTRADA RONAK Ot 414.8 CHR ISCHEMIC HRT DIS NEC 05/05/2014 BENITA ESTRADA RONAK Ot 424.0 MITRAL VALVE DISORDER 05/05/2014 BENITA ESTRADA RONAK Ot 438.89 OTH LATE EFFECT-CEREBROVASCULAR DISEASE 05/05/2014 BENITA ESTRADA RONAK Ot 493.20 CHRONIC OBSTRUCTIVE ASTHMA, NOS 05/05/2014 BENITA ESTRADA RONAK Ot 530.81 ESOPHAGEAL REFLUX 05/05/2014 BENITA ESTRADA RONAK Ot 585.9 CHRONIC KIDNEY DISEASE, UNSPECIFIED 05/05/2014 BENITA ESTRADA RONAK Ot 593.9 RENAL URETERAL DIS NOS 05/05/2014 BENITA ESTRADA RONAK Ot 780.2 SYNCOPE AND COLLAPSE 05/05/2014 BENITA ESTRADA RONAK Ot 780.4 DIZZINESS AND GIDDINESS 05/05/2014 BENITA ESTRADA RONAK Ot 787.91 DIARRHEA 05/05/2014 BENITA ESTRADA RONAK Ot 790.5 ABN SERUM ENZY LEVEL NEC 05/05/2014 BENITA ESTRADA RONAK Ot 812.00 FX UP END HUMERUS NOS-CL 05/05/2014 BENITA ESTRADA RONAK Ot E849.0 ACCIDENT IN HOME 05/05/2014 DWAYNE JOY DOI Ot E888.9 FALL NOS 05/05/2014 DWAYNE JOY DOI Ot E942.0 ADV EFF CARD RHYTH REGUL 05/05/2014 DWAYNE JOY DOI Ot E942.9 ADV EFF CARDIOVASC NEC 05/05/2014 DWAYNE JOY DOI Ot V15.82 HISTORY OF TOBACCO USE 05/05/2014 DWAYNE JOY DOI Ot V45.02 AUTO IMPLANTABLE CARDIAC DEFIBRILLATOR I 05/05/2014 BENITA ESTRADADWAYNEI Ot V45.81 AORTOCORONARY BYPASS 05/25/2014 JOHANNA WARREN MD E Ot 244.9 HYPOTHYROIDISM NOS 05/25/2014 GIANNI WARREN MDIC E Ot 272.4 HYPERLIPIDEMIA NEC/NOS 05/25/2014 JOHANNA WARREN MD E Ot 273.8 DIS PLAS PROTEIN MET NEC 05/25/2014 JOHANNA WARREN MD E Ot 276.1 HYPOSMOLALITY 05/25/2014 BRIANA GAO JOHANNA E Ot 276.7 HYPERPOTASSEMIA 05/25/2014 BRIANA GAO JOHANNA E Ot 285.9 ANEMIA NOS 05/25/2014 BRIANA GAO JOHANNA E Ot 311 DEPRESSIVE DISORDER NEC 05/25/2014 GIANNI WARREN MDIC E Ot 345.90 EPILEPSY UNSPEC W/O MENTION INTRACTABLE 05/25/2014 JOHANNA WARREN MD E Ot 414.01 CORONARY ATHEROSCLEROSIS OF [place] CORON 05/25/2014 JOHANNA WARREN MD E Ot 414.8 CHR ISCHEMIC HRT DIS NEC 05/25/2014 JOHANNA WARREN MD E Ot 424.0 MITRAL VALVE DISORDER 05/25/2014 JOHANNA WARREN MD E Ot 427.41 VENTRICULAR FIBRILLATION 05/25/2014 GIANNI WARREN MDIC E Ot 433.10 CAROTID ARTERY OCCLUSION W O CEREBRAL IN 05/25/2014 GIANNI WARREN MDIC E Ot 493.20 CHRONIC OBSTRUCTIVE ASTHMA, NOS 05/25/2014 BRIANA GAO JOHANNA E Ot 530.81 ESOPHAGEAL REFLUX 05/25/2014 JOHANNA WARREN MD E Ot 781.2 ABNORMALITY OF GAIT 05/25/2014 JOHANNA WARREN MD E Ot 787.21 DYSPHAGIA, ORAL PHASE 05/25/2014 JOHANNA WARREN MD E Ot 790.6 ABN BLOOD CHEMISTRY NEC 05/25/2014 JOHANNA WARREN MD E Ot V45.02 AUTO IMPLANTABLE CARDIAC DEFIBRILLATOR I 05/25/2014 JOHANNA WARREN MD E Ot V45.81 AORTOCORONARY BYPASS 05/25/2014 BRIANA GAO, JOHANNA Lopez Ot V45.82 PERCUTANEOUS TRANSLUM CORON ANGIOPLASTY 05/25/2014 BRIANA GAO, JOHANNA Lopez Ot V46.2 SUPPLEMENTAL OXYGEN 05/25/2014 BRIANA GAO, JOHANNA Lopez Ot V54.11 AFTERCARE HEALING TRAUMATIC FX UPPER ARM 05/25/2014 BRIANA GAO, JOHANNA Lopez Ot V57.89 REHABILITATION PROC NEC 07/15/2014 PEARL PARRISH DO Yoanna Ot V54.11 07/15/2014 FRANCOIS ESTRADA PEARL Lenz Ot V57.1 07/20/2014 FRANCOIS ESTRADA PEARL Lenz Ot V54.11 07/20/2014 FRANCOIS ESTRADA PEARL Lenz Ot V57.1 07/27/2014 FRANCOIS ESTRADA PEARL Lenz Ot V54.11 07/27/2014 FRANCOIS ESTRADA PEARL Lenz Ot V57.1 07/28/2014 RONAK JOY DO Ot V54.11 07/28/2014 DWAYNE JOY DOI Ot V57.21 08/02/2014 PEARL PARRISH DO Yoanna Ot V54.11 08/02/2014 PEARL PARRISH DO Yoanna Ot V57.1 08/04/2014 BENITA ESTRADA RONAK Ot V54.11 08/04/2014 RONAK JOY DO Ot V57.21 08/16/2014 HERNAN THIBODEAUX Ot 873.42 OPEN WOUND OF [place] 08/16/2014 HERNAN THIBODEAUX Ot 910.0 ABRASION HEAD 08/16/2014 HERNAN THIBODEAUX Ot 959.01 HEAD INJURY, NOS 08/16/2014 HERNAN THIBODEAUX Ot E000.8 OTHER EXTERNAL CAUSE STATUS 08/16/2014 HERNAN THIBODEAUX Ot E849.7 ACCID IN RESIDENT INSTIT 08/16/2014 HERNAN THIBODEAUX Ot E888.9 FALL NOS 08/16/2014 HERNAN THIBODEAUX Ot V06.1 [id number], COMBINED [ 08/17/2014 BENITA ESTRADA RONAK Ot V54.11 08/17/2014 BENITA ESTRADA RONAK Ot V57.21 09/01/2014 PEARL PARRISH DO Ot V54.11 09/01/2014 PEARL PARRISH DO Yoanna Ot V57.1 09/07/2014 Ot 272.9 09/07/2014 Ot 414.00 09/07/2014 Ot 414.8 09/07/2014 Ot 424.0 09/07/2014 Ot 427.1 09/07/2014 Ot V45.02 09/07/2014 Ot 490 09/07/2014 Ot 530.0 09/07/2014 Ot 786.06 09/07/2014 Ot 796.4 09/07/2014 Ot 780.39 09/07/2014 Ot V58.61 09/07/2014 Ot 493.10 09/07/2014 Ot 493.22 09/07/2014 Ot V58.61 09/07/2014 Ot 272.4 09/07/2014 Ot 413.9 09/07/2014 Ot 414.01 09/07/2014 Ot 425.4 09/07/2014 Ot 786.05 09/07/2014 Ot V58.61 09/07/2014 Ot V58.66 09/07/2014 Ot V58.69 09/07/2014 Ot V72.63 09/07/2014 Ot V74.8 09/07/2014 Ot 433.10 09/07/2014 Ot 465.9 09/07/2014 Ot V58.69 09/07/2014 Ot V72.63 09/07/2014 Ot V74.8 09/07/2014 Ot 715.95 09/07/2014 Ot 414.01 09/07/2014 Ot 786.09 09/07/2014 Ot V45.81 09/07/2014 Ot V45.82 09/07/2014 Ot 414.8 09/07/2014 Ot 429.3 09/07/2014 Ot 786.09 09/07/2014 RONAK JOY DO Ot 959.6 09/07/2014 KADE GAO FACC, ALI FACP CCDS Ot 397.0 09/07/2014 KADE GAO FACC, ALI FACP CCDS Ot 414.00 09/07/2014 KADE GAO FACC, ALI FACP CCDS Ot 414.8 09/07/2014 KADE GAO FACC, ALI FACP CCDS Ot 424.0 09/07/2014 KADE GAO FACC, ALI FACP CCDS Ot 427.41 09/07/2014 KADE GAO FACC, ALI FACP CCDS Ot 780.79 09/07/2014 KADE GAO FACC, ALI FACP CCDS Ot V45.02 09/07/2014 PEARL PARRISH DO Ot V54.11 09/07/2014 PEARL PARRISH DO Ot V57.1 09/07/2014 RONAK JOY DO Ot V54.11 09/07/2014 BENITA ESTRADA RONAK Ot V57.21 09/22/2014 BENITA ESTRADA RONAK Ot 038.42 E COLI SEPTICEMIA 09/22/2014 BENITA ESTRADA RONAK Ot 272.4 HYPERLIPIDEMIA NEC/NOS 09/22/2014 BENITA ESTRADA RONAK Ot 276.1 HYPOSMOLALITY 09/22/2014 BENITA ESTRADA RONAK Ot 285.9 ANEMIA NOS 09/22/2014 BENITA ESTRADA RONAK Ot 300.00 ANXIETY STATE NOS 09/22/2014 BENITA ESTRADA RONAK Ot 311 DEPRESSIVE DISORDER NEC 09/22/2014 BENITA ESTRADA RONAK Ot 345.90 EPILEPSY UNSPEC W/O MENTION INTRACTABLE 09/22/2014 BENITA ESTRADA RONAK Ot 414.01 CORONARY ATHEROSCLEROSIS OF [place] CORON 09/22/2014 BENITA ESTRADA RONAK Ot 414.8 CHR ISCHEMIC HRT DIS NEC 09/22/2014 BENITA ESTRADA RONAK Ot 424.0 MITRAL VALVE DISORDER 09/22/2014 BENITA ESTRADA RONAK Ot 433.10 CAROTID ARTERY OCCLUSION W O CEREBRAL IN 09/22/2014 BENITA ESTRADA RONAK Ot 458.9 HYPOTENSION NOS 09/22/2014 BENITA ESTRADA RONAK Ot 496 CHR AIRWAY OBSTRUCT NEC 09/22/2014 BENITA ESTRADA RONAK Ot 514 PULM CONGEST/HYPOSTASIS 09/22/2014 BENITA ESTRADA RONAK Ot 530.81 ESOPHAGEAL REFLUX 09/22/2014 BENITA ESTRADA RONAK Ot 584.9 ACUTE RENAL FAILURE, UNSPECIFIED 09/22/2014 BENITA ESTRADA RONAK Ot 599.0 URIN TRACT INFECTION NOS 09/22/2014 BENITA ESTRADA RONAK Ot 995.91 SEPSIS 09/22/2014 DWAYNE JOY DOI Ot V45.02 AUTO IMPLANTABLE CARDIAC DEFIBRILLATOR I 09/22/2014 BENITA ESTRADA RONAK Ot V45.81 AORTOCORONARY BYPASS 09/28/2014 PEARL PARRISH DO Ot V54.11 AFTERCARE HEALING TRAUMATIC FX UPPER ARM 09/28/2014 PEARL PARRISH DO Ot V57.1 PHYSICAL THERAPY NEC 09/28/2014 RONAK JOY DO Ot 038.42 E COLI SEPTICEMIA 09/28/2014 DWAYNE JOY DOI Ot 272.4 HYPERLIPIDEMIA NEC/NOS 09/28/2014 DWAYNE JOY DOI Ot 276.1 HYPOSMOLALITY 09/28/2014 DWAYNE JOY DOI Ot 285.9 ANEMIA NOS 09/28/2014 BENITA ESTRADA RONAK Ot 296.20 DEPRESS DISORDER-UNSPEC 09/28/2014 DWAYNE JOY DOI Ot 300.00 ANXIETY STATE NOS 09/28/2014 BENITA ESTRADA RONAK Ot 311 09/28/2014 DWAYNE JOY DOI Ot 345.90 EPILEPSY UNSPEC W/O MENTION INTRACTABLE 09/28/2014 DWAYNE JOY DOI Ot 414.01 CORONARY ATHEROSCLEROSIS OF [place] CORON 09/28/2014 DWAYNE JOY DOI Ot 414.8 CHR ISCHEMIC HRT DIS NEC 09/28/2014 DWAYNE JOY DOI Ot 424.0 MITRAL VALVE DISORDER 09/28/2014 DWAYNE JOY DOI Ot 428.0 CONGESTIVE HEART FAILURE NOS 09/28/2014 DWAYNE JOY DOI Ot 428.23 ACUTE CHRONIC SYSTOLIC HRT FAILURE 09/28/2014 DWAYNE JOY DOI Ot 433.10 CAROTID ARTERY OCCLUSION W O CEREBRAL IN 09/28/2014 RONAK JOY DO Ot 496 CHR AIRWAY OBSTRUCT NEC 09/28/2014 DWAYNE JOY DOI Ot 530.81 ESOPHAGEAL REFLUX 09/28/2014 BENITA ESTRADA RONAK Ot 599.0 URIN TRACT INFECTION NOS 09/28/2014 DWAYNE JOY DOI Ot 995.91 SEPSIS 09/28/2014 RONAK JOY DO Ot V45.02 AUTO IMPLANTABLE CARDIAC DEFIBRILLATOR I 09/28/2014 DWAYNE JOY DOI Ot V45.81 AORTOCORONARY BYPASS 10/02/2014 DWAYNE JOY DOI Ot V54.11 10/02/2014 DWAYNE JOY DOI Ot V57.21 10/07/2014 DWAYNE JOY DOI Ot V54.11 AFTERCARE HEALING TRAUMATIC FX UPPER ARM 10/07/2014 DWAYNE JOY DOI Ot V57.21 ENCOUNTER FOR OCCUPATIONAL THERAPY 12/21/2014 DWAYNE JOY DOI Ot 728.87 12/21/2014 DWAYNE JOY DOI Ot V57.1 12/22/2014 DWAYNE JOY DOI Ot 728.87 12/22/2014 JOY DO RONAK Ot V57.1 01/31/2015 JOY DO, RONAK Ot 728.87 01/31/2015 JOY DO RONAK Ot V57.1 03/20/2015 JOY DO RONAK Ot 728.87 MUSCLE WEAKNESS (GENERALIZED) 03/20/2015 BENITA ESTRADA RONAK Ot V57.1 PHYSICAL THERAPY NEC 04/07/2015 BENITA ESTRADA RONAK Ot 728.87 04/07/2015 BENITA ESTRADA RONAK Ot V57.1 05/10/2015 KADE GAO FACC, DANNIELLE FACP CCDS Ot 272.4 HYPERLIPIDEMIA NEC/NOS 05/10/2015 KADE GAO FACC, DANNIELLE SONGP CCDS Ot 300.4 DYSTHYMIC DISORDER 05/10/2015 KADE GAO FACC, DANNIELLE FACP CCDS Ot 345.90 EPILEPSY UNSPEC W/O MENTION INTRACTABLE 05/10/2015 DANNIELLE BRAUN MD, FACCP CCDS Ot 414.01 CORONARY ATHEROSCLEROSIS OF [place] CORON 05/10/2015 DANNIELLE BRAUN MD, FACC FACP CCDS Ot 414.8 CHR ISCHEMIC HRT DIS NEC 05/10/2015 KADE GAO FACC, DANNIELLE SONGP CCDS Ot 493.90 ASTHMA, UNSPECIFIED 05/10/2015 KADE GAO FACC, DANNIELLE FACP CCDS Ot 530.81 ESOPHAGEAL REFLUX 05/10/2015 DANNIELLE BRAUN MD, FACC FACP CCDS Ot V15.82 HISTORY OF TOBACCO USE 05/10/2015 DANNIELLE BRAUN MD, FACCP CCDS Ot V45.81 AORTOCORONARY BYPASS 05/10/2015 DANNIELLE BRAUN MD, FACCP CCDS Ot V45.82 PERCUTANEOUS TRANSLUM CORON ANGIOPLASTY 05/10/2015 DANNIELLE BRAUN MD, FACCP CCDS Ot V53.32 FITTING ADJUST AUTOMAT IMPLANT CARDIAC 05/10/2015 DANNIELLE BRAUN MD, FACCP CCDS Ot V58.69 OTH MED,LT,CURRENT USE 11/22/2015 MARY HERRING DO Ot I10 ESSENTIAL (PRIMARY) HYPERTENSION 11/22/2015 MARY HERRING DO Ot J44.9 CHRONIC OBSTRUCTIVE PULMONARY DISEASE, U 11/22/2015 MARY HERRING DO Ot S00.33XA CONTUSION OF NOSE, INITIAL ENCOUNTER 11/22/2015 MARY HERRING DO Ot S40.011A CONTUSION OF RIGHT SHOULDER, INITIAL ENC 11/22/2015 MARY HERRING DO Ot W10.1XXA FALL (ON)(FROM) SIDEWALK CURB, INITIAL E 11/22/2015 MARY HERRING DO Ot Y99.8 OTHER EXTERNAL CAUSE STATUS 11/22/2015 MARY HERRING DO Ot Z79.82 GEAR STRAIGHTENER (CURRENT) USE OF ASPIRIN 11/22/2015 MARY HERRING DO Ot Z79.899 OTHER RESIDENTIAL (CURRENT) DRUG THERAPY 11/23/2015 MARY HERRING DO Ot I10 11/23/2015 MARY HERRING DO Ot J44.9 11/23/2015 MARY HERRING DO Ot S00.33XA 11/23/2015 MARY HERRING DO Ot S40.011A 11/23/2015 MARY HERRING DO Ot W10.1XXA 11/23/2015 MARY HERRING DO Ot Y99.8 11/23/2015 MARY HERRING DO Ot Z79.82 11/23/2015 MARY HERRING DO Ot Z79.899 12/29/2015 Ot 465.9 ACUTE URI NOS 12/29/2015 Ot V58.69 OTH MED,LT,CURRENT USE 12/29/2015 Ot V72.63 PRE-PROCEDURAL LABORATORY EXAMINATION 12/29/2015 Ot V74.8 SCREEN-BACTERIAL DIS NEC 12/29/2015 Ot 715.95 OSTEOARTHROS NOS-PELVIS 12/29/2015 Ot 414.01 CORONARY ATHEROSCLEROSIS OF [place] CORON 12/29/2015 Ot 786.09 RESPIRATORY ABNORM NEC 12/29/2015 Ot V45.81 AORTOCORONARY BYPASS 12/29/2015 Ot V45.82 PERCUTANEOUS TRANSLUM CORON ANGIOPLASTY 12/29/2015 Ot 414.8 CHR ISCHEMIC HRT DIS NEC 12/29/2015 Ot 429.3 CARDIOMEGALY 12/29/2015 Ot 786.09 RESPIRATORY ABNORM NEC 12/29/2015 RONAK JOY DO Ot 959.6 HIP THIGH INJURY NOS 12/29/2015 KADE GAO FACC, DANNIELLE CARDENAS CCDS Ot 397.0 TRICUSPID VALVE DISEASE 12/29/2015 KADE GAO FACC, DANNIELLE CARDENAS CCDS Ot 414.00 CORON ATHEROSCLER NOS TYPE VESSEL, NATIV 12/29/2015 DANNIELLE BRAUN MD, FACCP CCDS Ot 414.8 CHR ISCHEMIC HRT DIS NEC 12/29/2015 DANNIELLE BRAUN MD, FACCP CCDS Ot 424.0 MITRAL VALVE DISORDER 12/29/2015 DANNIELLE BRAUN MD, FACCP CCDS Ot 427.41 VENTRICULAR FIBRILLATION 12/29/2015 DANNIELLE BRAUN MD, FACCP CCDS Ot 780.79 OTH MALAISE FATIGUE 12/29/2015 DANNIELLE BRAUN MD, FACCP CCDS Ot V45.02 AUTO IMPLANTABLE CARDIAC DEFIBRILLATOR I 01/06/2016 KRISTIN GRECIA L NETBACKUP ADMINISTRATOR Ot N50.8 OTHER SPECIFIED DISORDERS OF MALE GENITA 01/09/2016 KRISTIN GRECIA L NETBACKUP ADMINISTRATOR Ot N50.8 OTHER SPECIFIED DISORDERS OF MALE GENITA 01/09/2016 KRISTIN GRECIA L NETBACKUP ADMINISTRATOR Ot N43.3 HYDROCELE, UNSPECIFIED 01/09/2016 KRISTIN GRECIA L NETBACKUP ADMINISTRATOR Ot N45.1 EPIDIDYMITIS 01/10/2016 KRISTIN GRECIA L NETBACKUP ADMINISTRATOR Ot N43.3 HYDROCELE, UNSPECIFIED 01/10/2016 KRISTIN GRECIA L NETBACKUP ADMINISTRATOR Ot N45.1 EPIDIDYMITIS 01/19/2016 DANNIELLE BRAUN MD, FACC FACP CCDS Ot I25.10 ATHSCL HEART DISEASE OF [place] CORONARY 01/19/2016 DANNIELLE BRAUN MD, FACCP CCDS Ot I25.5 ISCHEMIC CARDIOMYOPATHY 01/26/2016 KRISTIN GRECIA L NETBACKUP ADMINISTRATOR Ot N43.3 HYDROCELE, UNSPECIFIED 01/26/2016 KRISTIN GRECIA Liss NETBACKUP ADMINISTRATOR Ot N45.1 EPIDIDYMITIS 06/18/2016 Ot 715.95 OSTEOARTHROS NOS-PELVIS 06/18/2016 Ot 414.01 CORONARY ATHEROSCLEROSIS OF [place] CORON 06/18/2016 Ot 786.09 RESPIRATORY ABNORM NEC 06/18/2016 Ot V45.81 AORTOCORONARY BYPASS 06/18/2016 Ot V45.82 PERCUTANEOUS TRANSLUM CORON ANGIOPLASTY 06/18/2016 Ot 414.8 CHR ISCHEMIC HRT DIS NEC 06/18/2016 Ot 429.3 CARDIOMEGALY 06/18/2016 Ot 786.09 RESPIRATORY ABNORM NEC 06/18/2016 RONAK JOY DO Ot 959.6 HIP THIGH INJURY NOS 06/18/2016 DANNIELLE BRAUN MD, FACC FACP CCDS Ot 397.0 TRICUSPID VALVE DISEASE 06/18/2016 KADE GAO FACC, DANNIELLE FACP CCDS Ot 414.00 CORON ATHEROSCLER NOS TYPE VESSEL, NATIV 06/18/2016 KADE GAO FACC, ALI FACP CCDS Ot 414.8 CHR ISCHEMIC HRT DIS NEC 06/18/2016 KADE GAO FACC, ALI FACP CCDS Ot 424.0 MITRAL VALVE DISORDER 06/18/2016 KADE GAO FACC, DANNIELLE FACP CCDS Ot 427.41 VENTRICULAR FIBRILLATION 06/18/2016 KADE GAO FACC, DANNIELLE FACP CCDS Ot 780.79 OTH MALAISE FATIGUE 06/18/2016 KADE GAO FACC, DANNIELLE FACP CCDS Ot V45.02 AUTO IMPLANTABLE CARDIAC DEFIBRILLATOR I 06/18/2016 KADE GAO FACC, DANNIELLE FACP CCDS Ot I25.10 ATHSCL HEART DISEASE OF [place] CORONARY 06/18/2016 KADE GAO FACC, DANNIELLE FACP CCDS Ot I25.5 ISCHEMIC CARDIOMYOPATHY 06/18/2016 GRECIA FOSTER NETBACKUP ADMINISTRATOR Ot N43.3 HYDROCELE, UNSPECIFIED 06/18/2016 GRECIA FOSTER NETBACKUP ADMINISTRATOR Ot N45.1 EPIDIDYMITIS 07/19/2016 RINKU MELENDEZ Ot M54.32 SCIATICA, LEFT SIDE 08/01/2016 RINKU MELENDEZ Ot M54.32 SCIATICA, LEFT SIDE 08/14/2016 RINKU MELENDEZ Ot M54.32 SCIATICA, LEFT SIDE 08/16/2016 KADE GAO FACC, DANNIELLE FACP CCDS Ot G47.30 SLEEP APNEA, UNSPECIFIED 08/16/2016 KADE GAO FACC, ALI FACP CCDS Ot I25.10 ATHSCL HEART DISEASE OF [place] CORONARY 08/16/2016 KADE GAO FACC, DANNIELLE FACP CCDS Ot I25.5 ISCHEMIC CARDIOMYOPATHY 08/16/2016 KADE GAO FACC, DANNIELLE FACP CCDS Ot I65.23 OCCLUSION AND STENOSIS OF [place] 08/16/2016 KADE GAO FACC, DANNIELLE FACP CCDS Ot R53.1 WEAKNESS 08/16/2016 KADE GAO FACC, DANNIELLE FACP CCDS Ot Z95.810 PRESENCE OF AUTOMATIC (IMPLANTABLE) CARD 08/21/2016 KADE GAO FACC, ALI FACP CCDS Ot G47.30 SLEEP APNEA, UNSPECIFIED 08/21/2016 KADE GAO FACC, ALI FACP CCDS Ot I25.10 ATHSCL HEART DISEASE OF [place] CORONARY 08/21/2016 KADE GAO FACC, ALI FACP CCDS Ot I25.5 ISCHEMIC CARDIOMYOPATHY 08/21/2016 KADE GAO FACC, ALI FACP CCDS Ot I65.23 OCCLUSION AND STENOSIS OF [place] 08/21/2016 KADE GAO FACC, ALI FACP CCDS Ot R53.1 WEAKNESS 08/21/2016 KADE GAO FACC, ALI FACP CCDS Ot Z95.810 PRESENCE OF AUTOMATIC (IMPLANTABLE) CARD 09/11/2016 KADE SONGC, ALI FACP CCDS Ot G47.30 SLEEP APNEA, UNSPECIFIED 09/11/2016 KADE SONGC, ALI FACP CCDS Ot I25.10 ATHSCL HEART DISEASE OF [place] CORONARY 09/11/2016 KADE GAO FACC, ALI FACP CCDS Ot I25.5 ISCHEMIC CARDIOMYOPATHY 09/11/2016 KADE GAO FACC, ALI FACP CCDS Ot I65.23 OCCLUSION AND STENOSIS OF [place] 09/11/2016 KADE GAO FACC, ALI FACP CCDS Ot R53.1 WEAKNESS 09/11/2016 KADE GAO FACC, ALI FACP CCDS Ot Z95.810 PRESENCE OF AUTOMATIC (IMPLANTABLE) CARD 01/15/2017 ELSA VILLALPANDO DO Ot M48.06 SPINAL STENOSIS, LUMBAR REGION 01/15/2017 ELSA VILLALPANDO DO Ot R26.89 OTHER ABNORMALITIES OF GAIT AND MOBILITY 01/22/2017 KADE GAO FACC, ALI FACP CCDS Ot I73.9 PERIPHERAL VASCULAR DISEASE, UNSPECIFIED 01/30/2017 KADE GAO FACC, ALI FACP CCDS Ot I25.10 ATHSCL HEART DISEASE OF [place] CORONARY 01/30/2017 KADE GAO FACC, ALI FACP CCDS Ot I25.5 ISCHEMIC CARDIOMYOPATHY 01/30/2017 KADE GAO FACC, ALI FACP CCDS Ot I65.23 OCCLUSION AND STENOSIS OF [place] 01/30/2017 KADE GAO FACC, ALI FACP CCDS Ot I70.0 ATHEROSCLEROSIS OF [place] 01/30/2017 KADE GAO FACC, ALI FACP CCDS Ot I73.9 PERIPHERAL VASCULAR DISEASE, UNSPECIFIED 01/30/2017 KADE MD FACC, ALI FACP CCDS Ot 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 01/30/2017 KADE GAO FACC, ALI FACP CCDS Ot Z95.810 PRESENCE OF AUTOMATIC (IMPLANTABLE) CARD 02/01/2017 KADE GAO FACC, ALI FACP CCDS Ot I25.10 ATHSCL HEART DISEASE OF [place] CORONARY 02/01/2017 KADE GAO FACC, ALI FACP CCDS Ot I25.5 ISCHEMIC CARDIOMYOPATHY 02/01/2017 KADE GAO FACC, ALI FACP CCDS Ot I65.23 OCCLUSION AND STENOSIS OF [place] 02/01/2017 KADE GAO FACC, ALI FACP CCDS Ot I70.0 ATHEROSCLEROSIS OF [place] 02/01/2017 KADE GAO FACC, ALI FACP CCDS Ot I73.9 PERIPHERAL VASCULAR DISEASE, UNSPECIFIED 02/01/2017 KADE GAO FACC, ALI FACP CCDS Ot 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 02/01/2017 KADE GAO FACC, ALI FACP CCDS Ot Z95.810 PRESENCE OF AUTOMATIC (IMPLANTABLE) CARD 02/01/2017 KADE SONGC, ALI FACP CCDS Ot I25.10 ATHSCL HEART DISEASE OF [place] CORONARY 02/01/2017 KADE SONGC, ALI FACP CCDS Ot I25.5 ISCHEMIC CARDIOMYOPATHY 02/01/2017 KADE GAO FACC, ALI FACP CCDS Ot I65.23 OCCLUSION AND STENOSIS OF [place] 02/01/2017 KADE GAO FACC, ALI FACP CCDS Ot I70.0 ATHEROSCLEROSIS OF [place] 02/01/2017 KADE GAO FACC, ALI FACP CCDS Ot I73.9 PERIPHERAL VASCULAR DISEASE, UNSPECIFIED 02/01/2017 KADE SONGC, ALI FACP CCDS Ot 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 02/01/2017 KADE GAO FACC, ALI FACP CCDS Ot Z95.810 PRESENCE OF AUTOMATIC (IMPLANTABLE) CARD 02/01/2017 KADE SONGC, ALI FACP CCDS Ot I25.10 ATHSCL HEART DISEASE OF [place] CORONARY 02/01/2017 KADE SONGC, ALI FACP CCDS Ot I25.5 ISCHEMIC CARDIOMYOPATHY 02/01/2017 KADE SONGC, ALI FACP CCDS Ot I65.23 OCCLUSION AND STENOSIS OF [place] 02/01/2017 KADE MD FACC, ALI FACP CCDS Ot I70.0 ATHEROSCLEROSIS OF [place] 02/01/2017 KADE GAO FACC, ALI FACP CCDS Ot I73.9 PERIPHERAL VASCULAR DISEASE, UNSPECIFIED 02/01/2017 KADE GAO FACC, ALI FACP CCDS Ot 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 02/01/2017 KADE GAO FACC, ALI FACP CCDS Ot Z95.810 PRESENCE OF AUTOMATIC (IMPLANTABLE) CARD 02/01/2017 KADE GAO FACC, ALI FACP CCDS Ot I25.10 ATHSCL HEART DISEASE OF [place] CORONARY 02/01/2017 KADE GAO FACC, ALI FACP CCDS Ot I25.5 ISCHEMIC CARDIOMYOPATHY 02/01/2017 KADE GAO FACC, ALI FACP CCDS Ot I65.23 OCCLUSION AND STENOSIS OF [place] 02/01/2017 KADE GAO FACC, ALI FACP CCDS Ot I70.0 ATHEROSCLEROSIS OF [place] 02/01/2017 KADE SONGC, ALI FACP CCDS Ot I73.9 PERIPHERAL VASCULAR DISEASE, UNSPECIFIED 02/01/2017 KADE GAO FACC, ALI FACP CCDS Ot 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 02/01/2017 KADE GAO FACC, ALI FACP CCDS Ot Z95.810 PRESENCE OF AUTOMATIC (IMPLANTABLE) CARD 02/01/2017 KADE SONGC, ALI FACP CCDS Ot I25.10 ATHSCL HEART DISEASE OF [place] CORONARY 02/01/2017 KADE GAO FACC, ALI FACP CCDS Ot I25.5 ISCHEMIC CARDIOMYOPATHY 02/01/2017 KADE SONGC, ALI FACP CCDS Ot I65.23 OCCLUSION AND STENOSIS OF [place] 02/01/2017 KADE GAO FACC, ALI FACP CCDS Ot I70.0 ATHEROSCLEROSIS OF [place] 02/01/2017 KADE GAO FACC, ALI FACP CCDS Ot I73.9 PERIPHERAL VASCULAR DISEASE, UNSPECIFIED 02/01/2017 KADE GAO FACC, ALI FACP CCDS Ot 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 02/01/2017 KADE GAO FACC, ALI FACP CCDS Ot Z95.810 PRESENCE OF AUTOMATIC (IMPLANTABLE) CARD 02/01/2017 KADE GAO FACC, ALI FACP CCDS Ot I25.10 ATHSCL HEART DISEASE OF [place] CORONARY 02/01/2017 KADE GAO FACC, ALI FACP CCDS Ot I25.5 ISCHEMIC CARDIOMYOPATHY 02/01/2017 KADE GAO FACC, ALI FACP CCDS Ot I65.23 OCCLUSION AND STENOSIS OF [place] 02/01/2017 KADE MD FACC, ALI FACP CCDS Ot I70.0 ATHEROSCLEROSIS OF [place] 02/01/2017 KADE MD FACC, ALI FACP CCDS Ot I73.9 PERIPHERAL VASCULAR DISEASE, UNSPECIFIED 02/01/2017 KADE MD FACC, ALI FACP CCDS Ot 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 02/01/2017 KADE MD FACC, ALI FACP CCDS Ot Z95.810 PRESENCE OF AUTOMATIC (IMPLANTABLE) CARD 02/19/2017 KADE GAO FACC, ALI FACP CCDS Ot I25.10 ATHSCL HEART DISEASE OF [place] CORONARY 02/19/2017 KADE GAO FACC, ALI FACP CCDS Ot I25.5 ISCHEMIC CARDIOMYOPATHY 02/19/2017 KADE GAO FACC, ALI FACP CCDS Ot I65.23 OCCLUSION AND STENOSIS OF [place] 02/19/2017 KADE GAO FACC, ALI FACP CCDS Ot I70.0 ATHEROSCLEROSIS OF [place] 02/19/2017 KADE GAO FACC, ALI FACP CCDS Ot I73.9 PERIPHERAL VASCULAR DISEASE, UNSPECIFIED 02/19/2017 KADE GAO FACC, ALI FACP CCDS Ot 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 02/19/2017 KADE MD FACC, ALI FACP CCDS Ot Z95.810 PRESENCE OF AUTOMATIC (IMPLANTABLE) CARD 02/22/2017 ELSA VILLALPANDO DO Ot M48.06 SPINAL STENOSIS, LUMBAR REGION 02/22/2017 ELSA VILLALPANDO DO Ot R26.89 OTHER ABNORMALITIES OF GAIT AND MOBILITY 04/14/2017 ELSA VILLALPANDO DO Ot M48.06 SPINAL STENOSIS, LUMBAR REGION 04/14/2017 ELSA VILLALPANDO DO Ot R26.89 OTHER ABNORMALITIES OF GAIT AND MOBILITY 04/24/2017 ELSA VILLALPANDO DO Ot M48.06 SPINAL STENOSIS, LUMBAR REGION 04/24/2017 ELSA VILLALPANDO DO Ot R26.89 OTHER ABNORMALITIES OF GAIT AND MOBILITY 04/29/2017 ELSA VILLALPANDO DO Ot M48.06 SPINAL STENOSIS, LUMBAR REGION 04/29/2017 HEARNDON DO, ELSA L Ot R26.89 OTHER ABNORMALITIES OF GAIT AND MOBILITY 05/24/2017 HEARNDON DO, ELSA L Ot M48.06 SPINAL STENOSIS, LUMBAR REGION 05/24/2017 HEARNDON DO, ELSA L Ot R26.89 OTHER ABNORMALITIES OF GAIT AND MOBILITY 06/01/2017 HEARNDON DO, LESA L Ot M48.06 SPINAL STENOSIS, LUMBAR REGION 06/01/2017 HEARNDON DO, ELSA L Ot R26.89 OTHER ABNORMALITIES OF GAIT AND MOBILITY 06/08/2017 HEARNDON DO, ELSA L Ot M48.06 SPINAL STENOSIS, LUMBAR REGION 06/08/2017 HEARNDON DO, ELSA L Ot R26.89 OTHER ABNORMALITIES OF GAIT AND MOBILITY 07/03/2017 HEARNDON DO, ELSA L Ot M48.06 SPINAL STENOSIS, LUMBAR REGION * DO NOT 07/03/2017 HEARNDON DO, ELSA L Ot R26.89 OTHER ABNORMALITIES OF GAIT AND MOBILITY 07/04/2017 HEARNDON DO, ELSA L Ot M48.061 SPINAL STENOSIS, LUMBAR REGION WITHOUT N 07/04/2017 HEARNDON DO, ELSA L Ot R26.89 OTHER ABNORMALITIES OF GAIT AND MOBILITY 07/23/2017 HEARNDON DO, ELSA L Ot M48.061 SPINAL STENOSIS, LUMBAR REGION WITHOUT N 07/23/2017 HEARNDON DO, ELSA L Ot R26.89 OTHER ABNORMALITIES OF GAIT AND MOBILITY 09/13/2017 MARTINEZ CHEN Ot R26.89 OTHER ABNORMALITIES OF GAIT AND MOBILITY 10/07/2017 MARTINEZ CHEN Ot R26.89 OTHER ABNORMALITIES OF GAIT AND MOBILITY 10/10/2017 MARTINEZ CHEN Ot R26.89 OTHER ABNORMALITIES OF GAIT AND MOBILITY 01/01/2018 LLUVIA ALMONTE MD Ot Z29.8 ENCOUNTER FOR OTHER SPECIFIED PROPHYLACT 01/09/2018 LLUVIA ALMONTE MD Ot Z29.8 ENCOUNTER FOR OTHER SPECIFIED PROPHYLACT 02/02/2018 LLUVIA ALMONTE MD Ot Z29.8 ENCOUNTER FOR OTHER SPECIFIED PROPHYLACT 02/04/2018 LLUVIA ALMONTE MD Ot Z29.8 ENCOUNTER FOR OTHER SPECIFIED PROPHYLACT 03/05/2018 LLUVIA ALMONTE MD Ot Z29.8 ENCOUNTER FOR OTHER SPECIFIED PROPHYLACT 03/12/2018 LLUVIA ALMONTE MD Ot Z29.8 ENCOUNTER FOR OTHER SPECIFIED PROPHYLACT 04/06/2018 LLUVIA ALMONTE MD Ot Z29.8 ENCOUNTER FOR OTHER SPECIFIED PROPHYLACT 04/22/2018 RONAK JOY DO Ot 959.6 HIP THIGH INJURY NOS 04/22/2018 KADE GAO FACC, ALI FACP CCDS Ot 397.0 TRICUSPID VALVE DISEASE 04/22/2018 KADE GAO FACC, ALI FACP CCDS Ot 414.00 CORON ATHEROSCLER NOS TYPE VESSEL, NATIV 04/22/2018 KADE GAO FACC, ALI FACP CCDS Ot 414.8 CHR ISCHEMIC HRT DIS NEC 04/22/2018 KADE GAO FACC, ALI FACP CCDS Ot 424.0 MITRAL VALVE DISORDER 04/22/2018 KADE GAO FACC, ALI FACP CCDS Ot 427.41 VENTRICULAR FIBRILLATION 04/22/2018 KADE GAO FACC, ALI FACP CCDS Ot 780.79 OTH MALAISE FATIGUE 04/22/2018 KADE GAO FACC, DANNIELLE FACP CCDS Ot V45.02 AUTO IMPLANTABLE CARDIAC DEFIBRILLATOR I 04/22/2018 KADE GAO FACC, DANNIELLE FACP CCDS Ot I25.10 ATHSCL HEART DISEASE OF [place] CORONARY 04/22/2018 KADE GAO FACC, ALI FACP CCDS Ot I25.5 ISCHEMIC CARDIOMYOPATHY 04/22/2018 GRECIA FOSTER NETBACKUP ADMINISTRATOR Ot N43.3 HYDROCELE, UNSPECIFIED 04/22/2018 GRECIA FOSTER NETBACKUP ADMINISTRATOR Ot N45.1 EPIDIDYMITIS 04/22/2018 KADE GAO FACC, ALI FACP CCDS Ot G47.30 SLEEP APNEA, UNSPECIFIED 04/22/2018 KADE GAO FACC, ALI FACP CCDS Ot I25.10 ATHSCL HEART DISEASE OF [place] CORONARY 04/22/2018 KADE GAO FACC, ALI FACP CCDS Ot I25.5 ISCHEMIC CARDIOMYOPATHY 04/22/2018 KADE GOA FACC, ALI FACP CCDS Ot I65.23 OCCLUSION AND STENOSIS OF [place] 04/22/2018 KADE GAO FACC, ALI FACP CCDS Ot R53.1 WEAKNESS 04/22/2018 KADE GAO FACC, ALI FACP CCDS Ot Z95.810 PRESENCE OF AUTOMATIC (IMPLANTABLE) CARD 04/22/2018 KADE GAO FACC, ALI FACP CCDS Ot I25.10 ATHSCL HEART DISEASE OF [place] CORONARY 04/22/2018 KADE GAO FACC, ALI FACP CCDS Ot I25.5 ISCHEMIC CARDIOMYOPATHY 04/22/2018 KADE GAO [facility], ALI FACP CCDS Ot I65.23 OCCLUSION AND STENOSIS OF [place] 04/22/2018 KADE GAO [facility], ALI FACP CCDS Ot I70.0 ATHEROSCLEROSIS OF [place] 04/22/2018 KADE GAO [facility], ALI FACP CCDS Ot I73.9 PERIPHERAL VASCULAR DISEASE, UNSPECIFIED 04/22/2018 KADE GAO [facility], ALI FACP CCDS Ot 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 04/22/2018 KADE GAO [facility], ALI FACP CCDS Ot Z95.810 PRESENCE OF AUTOMATIC (IMPLANTABLE) CARD 05/07/2018 LLUVIA ALMONTE MD Ot Z29.8 ENCOUNTER FOR OTHER SPECIFIED PROPHYLACT 05/08/2018 LLUVIA ALMONTE MD Ot Z29.8 ENCOUNTER FOR OTHER SPECIFIED PROPHYLACT 05/21/2018 JOY DO, RONAK Ot I63.9 CEREBRAL INFARCTION, UNSPECIFIED 05/23/2018 JOY DO, RONAK Ot R26.81 UNSTEADINESS ON FEET 06/01/2018 JOY DO, RONAK Ot R26.81 UNSTEADINESS ON FEET 06/02/2018 JOY DO, RONAK Ot R26.81 UNSTEADINESS ON FEET 06/04/2018 JOY DO, RONAK Ot R26.81 UNSTEADINESS ON FEET 06/06/2018 JOY DO, RONAK Ot R26.81 UNSTEADINESS ON FEET 06/06/2018 JOY DO, RONAK Ot R26.81 UNSTEADINESS ON FEET 06/08/2018 LLUVIA ALMONTE MD Ot Z29.8 ENCOUNTER FOR OTHER SPECIFIED PROPHYLACT 07/09/2018 LLUVIA ALMONTE MD Ot Z29.8 ENCOUNTER FOR OTHER SPECIFIED PROPHYLACT 07/10/2018 LLUVIA ALMONTE MD Ot Z29.8 ENCOUNTER FOR OTHER SPECIFIED PROPHYLACT 08/10/2018 LLUVIA ALMONTE MD Ot Z29.8 ENCOUNTER FOR OTHER SPECIFIED PROPHYLACT 08/12/2018 LLUVIA ALMONTE MD Ot Z29.8 ENCOUNTER FOR OTHER SPECIFIED PROPHYLACT 09/03/2018 ELSA ROBLEDO MD Ot R29.6 REPEATED FALLS 09/03/2018 ELSA ROBLEDO MD Ot R42 DIZZINESS AND GIDDINESS 09/03/2018 JOY DO, RONAK Ot 959.6 HIP THIGH INJURY NOS 09/03/2018 KADE GAO FACC, DANNIELLE FACP CCDS Ot 397.0 TRICUSPID VALVE DISEASE 09/03/2018 KADE GAO FACC, DANNIELLE FACP CCDS Ot 414.00 CORON ATHEROSCLER NOS TYPE VESSEL, NATIV 09/03/2018 KADE GAO FACC, ALI FACP CCDS Ot 414.8 CHR ISCHEMIC HRT DIS NEC 09/03/2018 KADE GAO FACC, ALI FACP CCDS Ot 424.0 MITRAL VALVE DISORDER 09/03/2018 KADE GAO FACC, ALI FACP CCDS Ot 427.41 VENTRICULAR FIBRILLATION 09/03/2018 KADE GAO FACC, DANNIELLE FACP CCDS Ot 780.79 OTH MALAISE FATIGUE 09/03/2018 KADE GAO FACC, DANNIELLE FACP CCDS Ot V45.02 AUTO IMPLANTABLE CARDIAC DEFIBRILLATOR I 09/03/2018 KADE GAO FACC, DANNIELLE FACP CCDS Ot I25.10 ATHSCL HEART DISEASE OF [place] CORONARY 09/03/2018 KADE GAO FACC, DANNIELLE FACP CCDS Ot I25.5 ISCHEMIC CARDIOMYOPATHY 09/03/2018 GRECIA FOSTER NETBACKUP ADMINISTRATOR Ot N43.3 HYDROCELE, UNSPECIFIED 09/03/2018 GRECIA FOSTER NETBACKUP ADMINISTRATOR Ot N45.1 EPIDIDYMITIS 09/03/2018 KADE GAO FACC, DANNIELLE FACP CCDS Ot G47.30 SLEEP APNEA, UNSPECIFIED 09/03/2018 KADE GAO FACC, ALI FACP CCDS Ot I25.10 ATHSCL HEART DISEASE OF [place] CORONARY 09/03/2018 KADE GAO FACC, DANNIELLE FACP CCDS Ot I25.5 ISCHEMIC CARDIOMYOPATHY 09/03/2018 KADE GAO FACC, DANNIELLE FACP CCDS Ot I65.23 OCCLUSION AND STENOSIS OF [place] 09/03/2018 KADE GAO FACC, DANNIELLE FACP CCDS Ot R53.1 WEAKNESS 09/03/2018 KADE GAO FACC, DANNIELLE FACP CCDS Ot Z95.810 PRESENCE OF AUTOMATIC (IMPLANTABLE) CARD 09/03/2018 KADE GAO FACC, ALI FACP CCDS Ot I25.10 ATHSCL HEART DISEASE OF [place] CORONARY 09/03/2018 KADE GAO FACC, ALI FACP CCDS Ot I25.5 ISCHEMIC CARDIOMYOPATHY 09/03/2018 KADE GAO FACC, ALI FACP CCDS Ot I65.23 OCCLUSION AND STENOSIS OF [place] 09/03/2018 KADE GAO FACC, DANNIELLE FACP CCDS Ot I70.0 ATHEROSCLEROSIS OF [place] 09/03/2018 KADE GAO FACC, DANNIELLE FACP CCDS Ot I73.9 PERIPHERAL VASCULAR DISEASE, UNSPECIFIED 09/03/2018 KADE GAO FACC, ALI FACP CCDS Ot 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 09/03/2018 KADE GAO FACC, DANNIELLE FACP CCDS Ot Z95.810 PRESENCE OF AUTOMATIC (IMPLANTABLE) CARD 09/03/2018 BENITA ESTRADA RONAK Ot I63.9 CEREBRAL INFARCTION, UNSPECIFIED 09/03/2018 MEENA GAO, ELSA P Ot R29.6 REPEATED FALLS 09/03/2018 MEENA GAO, ELSA P Ot R42 DIZZINESS AND GIDDINESS 09/03/2018 MEENA GAO, ELSA P Ot R29.6 REPEATED FALLS 09/03/2018 MEENA GAO, ELSA P Ot R42 DIZZINESS AND GIDDINESS 09/03/2018 MEENA GAO, ELSA P Ot R29.6 REPEATED FALLS 09/03/2018 MEENA GAO, ELSA P Ot R42 DIZZINESS AND GIDDINESS 09/03/2018 BENITA ESTRADA, RONAK Ot 959.6 HIP THIGH INJURY NOS 09/03/2018 KADE GAO FACC, DANNIELLE FACP CCDS Ot 397.0 TRICUSPID VALVE DISEASE 09/03/2018 KADE GAO FACC, DANNIELLE FACP CCDS Ot 414.00 CORON ATHEROSCLER NOS TYPE VESSEL, NATIV 09/03/2018 KADE GAO FACC, ALI FACP CCDS Ot 414.8 CHR ISCHEMIC HRT DIS NEC 09/03/2018 KADE GAO FACC, DANNIELLE FACP CCDS Ot 424.0 MITRAL VALVE DISORDER 09/03/2018 KADE GAO FACC, ALI FACP CCDS Ot 427.41 VENTRICULAR FIBRILLATION 09/03/2018 KADE GAO FACC, DANNIELLE FACP CCDS Ot 780.79 OTH MALAISE FATIGUE 09/03/2018 KADE GAO FACC, DANNIELLE FACP CCDS Ot V45.02 AUTO IMPLANTABLE CARDIAC DEFIBRILLATOR I 09/03/2018 KADE GAO FACC, ALI FACP CCDS Ot I25.10 ATHSCL HEART DISEASE OF [place] CORONARY 09/03/2018 KADE GAO FACC, DANNIELLE FACP CCDS Ot I25.5 ISCHEMIC CARDIOMYOPATHY 09/03/2018 FOSTER, GRECIA L NETBACKUP ADMINISTRATOR Ot N43.3 HYDROCELE, UNSPECIFIED 09/03/2018 GRECIA FOSTER NETBACKUP ADMINISTRATOR Ot N45.1 EPIDIDYMITIS 09/03/2018 KADE GAO [facility], ALI FACP CCDS Ot G47.30 SLEEP APNEA, UNSPECIFIED 09/03/2018 KADE GAO FAC, ALI FACP CCDS Ot I25.10 ATHSCL HEART DISEASE OF [place] CORONARY 09/03/2018 KADE GAO FAC, ALI FACP CCDS Ot I25.5 ISCHEMIC CARDIOMYOPATHY 09/03/2018 KADE GAO FAC, ALI FACP CCDS Ot I65.23 OCCLUSION AND STENOSIS OF [place] 09/03/2018 KADE GAO [facility], ALI FACP CCDS Ot R53.1 WEAKNESS 09/03/2018 KADE GAO [facility], ALI FACP CCDS Ot Z95.810 PRESENCE OF AUTOMATIC (IMPLANTABLE) CARD 09/03/2018 KADE GAO [facility], ALI FACP CCDS Ot I25.10 ATHSCL HEART DISEASE OF [place] CORONARY 09/03/2018 KADE GAO [facility], ALI FACP CCDS Ot I25.5 ISCHEMIC CARDIOMYOPATHY 09/03/2018 KADE GAO [facility], ALI FACP CCDS Ot I65.23 OCCLUSION AND STENOSIS OF [place] 09/03/2018 KADE GAO [facility], ALI FACP CCDS Ot I70.0 ATHEROSCLEROSIS OF [place] 09/03/2018 KADE GAO [facility], ALI FACP CCDS Ot I73.9 PERIPHERAL VASCULAR DISEASE, UNSPECIFIED 09/03/2018 KADE GAO [facility], ALI FACP CCDS Ot 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 09/03/2018 KADE GAO [facility], ALI FACP CCDS Ot Z95.810 PRESENCE OF AUTOMATIC (IMPLANTABLE) CARD 09/03/2018 RONAK JOY DO Ot I63.9 CEREBRAL INFARCTION, UNSPECIFIED 09/03/2018 ELSA ROBLEDO MD P Ot R29.6 REPEATED FALLS 09/03/2018 ELSA ROBLEDO MD Ot R42 DIZZINESS AND GIDDINESS 09/03/2018 ELSA ROBLEDO MD Ot R29.6 REPEATED FALLS 09/03/2018 ELSA ROBLEDO MD Ot R42 DIZZINESS AND GIDDINESS 09/05/2018 ELSA ROBLEDO MD Ot R29.6 REPEATED FALLS 09/05/2018 ELSA ROBLEDO MD Ot R42 DIZZINESS AND GIDDINESS 09/10/2018 LLUVIA ALMONTE MD Ot Z29.8 ENCOUNTER FOR OTHER SPECIFIED PROPHYLACT 09/24/2018 MEENA GAO, ELSA Cantor Ot R29.6 REPEATED FALLS 09/24/2018 ELSA ROBLEDO MD Ot R42 DIZZINESS AND GIDDINESS 10/01/2018 ELSA ROBLEDO MD Ot R29.6 REPEATED FALLS 10/01/2018 ELSA ROBLEDO MD Ot R42 DIZZINESS AND GIDDINESS 10/12/2018 LLUVIA ALMONTE MD Ot Z29.8 ENCOUNTER FOR OTHER SPECIFIED PROPHYLACT 10/13/2018 LLUVIA ALMONTE MD Ot Z29.8 ENCOUNTER FOR OTHER SPECIFIED PROPHYLACT 11/13/2018 LLUVIA ALMONTE MD Ot Z29.8 ENCOUNTER FOR OTHER SPECIFIED PROPHYLACT 12/15/2018 LLUVIA ALMONTE MD Ot Z29.8 ENCOUNTER FOR OTHER SPECIFIED PROPHYLACT 01/16/2019 LLUVIA ALMONTE MD Ot Z29.8 ENCOUNTER FOR OTHER SPECIFIED PROPHYLACT 01/22/2019 CARIE PENN Ot I25.10 ATHSCL HEART DISEASE OF [place] CORONARY 01/22/2019 CARIE PENN Ot I34.0 NONRHEUMATIC MITRAL (VALVE) INSUFFICIENC 01/22/2019 CARIE PENN Ot R06.09 OTHER FORMS OF DYSPNEA 02/18/2019 LLUVIA ALMONTE MD Ot Z29.8 ENCOUNTER FOR OTHER SPECIFIED PROPHYLACT Procedures Code Description Performed By Performed On 33.24 ENDOSCOPIC BRONCHIAL BX 10/19/2009 96.04 10/03/2012 96.71 10/03/2012 Results There is no data. Encounters ACCT No. Visit Date/Time Discharge Status Pt. Type Provider Facility Loc./Unit Complaint [id number] 02/18/2019 15:10:00 02/18/2019 00:01:00 DIS Outpatient LLUVIA ALMONTE MD [facility] [place] [address] CARDIAC REHAB PHASE 3 [id number] 01/20/2019 11:46:00 01/20/2019 23:59:59 CLS Outpatient CARIE PENN [facility] CARD CAD,MORAN [id number] 01/16/2019 14:56:00 01/16/2019 00:01:00 DIS Outpatient LLUVIA ALMONTE MD [facility] [place] [address] CARDIAC REHAB PHASE 3 [id number] 12/12/2018 14:52:00 12/14/2018 00:01:00 DIS Outpatient LLUVIA ALMONTE MD [facility] [place] [address] CARDIAC REHAB PHASE 3 [id number] 11/12/2018 15:34:00 11/12/2018 00:01:00 DIS Outpatient LLUVIA ALMONTE MD [facility] [place] [address] CARDIAC REHAB PHASE 3 [id number] 10/10/2018 15:35:00 10/12/2018 00:01:00 DIS Outpatient LLUVIA ALMONTE MD [facility] [place] [address] CARDIAC REHAB PHASE 3 [id number] 09/11/2018 12:55:00 10/01/2018 12:20:00 DIS Outpatient ELSA ROBLEDO MD [facility] REHAB BALANCE [id number] 09/10/2018 14:49:00 09/10/2018 00:01:00 DIS Outpatient LLUVIA ALMONTE MD [facility] [place] [address] CARDIAC REHAB PHASE 3 [id number] 09/01/2018 14:03:00 09/03/2018 10:27:00 DIS Outpatient ELSA ROBLEDO MD [facility] REHAB BALANCE [id number] 08/06/2018 14:42:00 08/10/2018 00:01:00 DIS Outpatient LLUVIA ALMONTE MD [facility] [place] [address] CARDIAC REHAB PHASE 3 [id number] 07/09/2018 13:45:00 07/09/2018 00:01:00 DIS Outpatient LLUVIA ALMONTE MD [facility] [place] [address] CARDIAC REHAB PHASE 3 [id number] 06/06/2018 14:08:00 06/08/2018 00:01:00 DIS Outpatient LLUVIA ALMONTE MD [facility] [place] [address] CARDIAC REHAB PHASE 3 [id number] 06/06/2018 12:56:00 06/06/2018 14:34:00 DIS Outpatient RONAK JOY DO [facility] REHAB UNSTEADINESS ON FEET [id number] 05/30/2018 12:54:00 06/01/2018 00:01:00 DIS Outpatient RONAK JOY DO [facility] REHAB UNSTEADINESS ON FEET [id number] 05/07/2018 16:05:00 05/07/2018 00:01:00 DIS Outpatient LLUVIA ALMONTE MD [facility] [place] [address] CARDIAC REHAB PHASE 3 [id number] 04/24/2018 09:02:00 04/24/2018 23:59:59 CLS Outpatient RONAK JOY DO [facility] RAD CEREBARAL INFARCTION,UNSPECIFIED [id number] 03/31/2018 14:08:00 03/31/2018 23:59:59 CLS Outpatient LLUVIA ALMONTE MD [facility] [place] [address] CARDIAC REHAB PHASE 3 [id number] 03/03/2018 16:35:00 03/05/2018 00:01:00 DIS Outpatient LLUVIA ALMONTE MD [facility] [place] [address] CARDIAC REHAB PHASE 3 [id number] 01/31/2018 15:23:00 02/02/2018 00:01:00 DIS Outpatient LLUVIA ALMONTE MD [facility] [place] [address] CARDIAC REHAB PHASE 3 [id number] 01/01/2018 15:16:00 01/01/2018 00:01:00 DIS Outpatient LLUVIA ALMONTE MD [facility] [place] [address] CARDIAC REHAB PHASE 3 [id number] 10/07/2017 13:02:00 10/07/2017 13:47:00 [facility] [id number] 07/23/2017 14:00:00 07/23/2017 14:41:00 DIS Outpatient [facility];LUMBAR SPINAL STENOSIS [id number] 05/27/2017 13:27:00 06/01/2017 00:01:00 DIS Outpatient ELSA VILLALPANDO DO [facility] REHAB GAIT ABNORMALITY;LUMBAR SPINAL STENOSIS [id number] 04/11/2017 14:35:00 04/14/2017 00:01:00 DIS Outpatient [facility];LUMBAR SPINAL STENOSIS [id number] 01/29/2017 12:41:00 01/29/2017 23:59:59 CLS Outpatient KADE GAO FACC, DANNIELLE CARDENAS CCDS [facility] RAD I25.10,I73.9,I65.23 [id number] 08/15/2016 07:32:00 08/15/2016 23:59:59 CLS Outpatient KADE GAO FACC, DANNIELLE CARDENAS CCDS [facility] CARD WEAKNESS,CAD [id number] 07/19/2016 13:39:00 08/14/2016 09:17:00 DIS Outpatient RINKU MELENDEZ [facility] REHAB SCIATICA [id number] 01/06/2016 11:34:00 01/06/2016 23:59:59 CLS Outpatient GRECIA FOSTER NETBACKUP ADMINISTRATOR [facility] RAD LT TESTICULAR PAIN RADAITING TO LT GROIN [id number] 12/29/2015 07:28:00 12/29/2015 23:59:59 CLS Outpatient KADE GAO FACC, DANNIELLE CARDENAS CCDS [facility] CARD CAD,ISCHEMIC CARDIOMYOPATHY [id number] 11/22/2015 13:05:00 11/22/2015 15:33:00 DIS Emergency MARY HERRING DO [facility] ER FALL, NOSE INJ, LEFT SHOULDER PAIN [id number] 05/10/2015 11:01:00 05/10/2015 18:00:00 DIS Outpatient DANNIELLE BRAUN MD, FACC, FACP CCDS [facility] CATH PULSE GENERATOR CHANGE [id number] 03/21/2015 00:10:00 03/21/2015 23:59:59 CLS Preadmit BENITA DO RONAK [facility] REHAB [id number] 02/24/2015 08:27:00 03/20/2015 00:01:00 DIS Outpatient BENITA DO RONAK [facility] REHAB L ARM WEAKNESS [id number] 09/09/2014 10:22:00 10/07/2014 11:19:00 DIS Outpatient BENITA DO RONAK [facility] REHAB HAND THERAPY AFTER L SHOULDER FRACTURE [id number] 09/22/2014 12:22:00 09/28/2014 14:35:00 DIS Inpatient JOY DO RONAK [facility] 4TH SWB--SEPSIS [id number] 09/09/2014 10:31:00 09/28/2014 14:35:00 DIS Outpatient PEARL PARRISH DO [facility] REHAB L HUMERUS FX [id number] 09/19/2014 23:30:00 09/22/2014 12:15:00 DIS Inpatient BENITA ESTRADA RONAK [facility] ICU SEPSIS [id number] 08/16/2014 17:16:00 08/16/2014 19:09:00 DIS Emergency HERNAN THIBODEAUX [facility] ER FALL,HEAD LAC [id number] 05/05/2014 11:50:00 05/25/2014 16:03:00 DIS Inpatient BRIANA GAO, JOHANNA Lopez [facility] IRF FALL, [id number] 05/03/2014 22:50:00 05/05/2014 11:50:00 DIS Inpatient BENITA ESTRADA RONAK [facility] CSD NEW SYNCOPE,LEFT PROXIMAL HUMERUS FX,CARDIAC DYSRH [id number] 04/29/2014 07:46:00 04/29/2014 23:59:59 CLS Outpatient KADE GAO FACC, DANNIELLE CARDENAS CCDS [facility] CARD WEAKNESS, ISCHEMIC CARDIOMYOPATHY [id number] 02/22/2014 16:03:00 02/22/2014 23:59:59 CLS Outpatient [id number] 07/06/2013 10:48:00 07/06/2013 23:59:59 CLS Outpatient BENITA ESTRADA RONAK [facility] RAD FALL,HIP,RIB PAIN,HEMATURIA [id number] 03/11/2019 14:18:00 ACT Outpatient LLUVIA ALMONTE MD [facility] CR3 CARDIAC REHAB PHASE 3 [id number] 09/07/2014 14:10:00 Document Registration [id number] 09/07/2014 14:09:00 Document Registration [id number] 11/20/2012 13:16:00 Document Registration [id number] 10/09/2012 14:21:00 Document Registration [id number] 10/03/2012 07:43:00 Document Registration [id number] 06/11/2012 13:01:00 Document Registration [id number] 12/27/2011 08:04:00 Document Registration [id number] 10/14/2011 11:59:00 Document Registration [id number] 04/25/2011 13:00:00 Document Registration [id number] 01/01/2011 15:40:00 Document Registration [id number] 10/12/2010 05:41:00 Document Registration [id number] 10/09/2010 07:46:00 Document Registration [id number] 09/01/2010 20:38:00 Document Registration [id number] 04/03/2010 12:01:00 Document Registration [id number] 03/07/2010 09:45:00 Document Registration [id number] 12/27/2009 10:52:00 Document Registration [id number] 12/26/2009 09:02:00 Document Registration [id number] 11/01/2009 08:11:00 Document Registration [id number] 10/27/2009 15:46:00 Document Registration [id number] 10/27/2009 15:44:00 Document Registration [id number] 08/30/2009 12:29:00 Document Registration [id number] 07/15/2009 09:00:00 Document Registration [id number] 06/16/2009 14:36:00 Document Registration [id number] 05/13/2009 10:26:00 Document Registration
[2019-03-13 00:43] LABS: ALANINE AMINOTRANSFERASE 27 U/L (0-55); ALBUMIN 3.9 GM/DL (3.2-4.5); ALKALINE PHOSPHATASE 158 U/L (40-136); BILIRUBIN,TOTAL 0.3 MG/DL (0.1-1.0); BUN/CREATININE RATIO 20; CALCIUM 9.3 MG/DL (8.5-10.1); CARBON DIOXIDE 20 MMOL/L (21-32); CHLORIDE 102 MMOL/L (98-107); CREATININE SERUM 1.13 MG/DL (0.60-1.30); GFR ESTIMATED > 60; GLUCOSE 128 MG/DL (70-105); MAGNESIUM 2.3 MG/DL (1.8-2.4); POTASSIUM 4.2 MMOL/L (3.6-5.0); SODIUM 136 MMOL/L (135-145); TOTAL PROTEIN 8.4 GM/DL (6.4-8.2)
--- NOTE | 2019-03-13 01:00 | NUR ---
PATIENT RESTING QUIETLY IN BED WITH SPOUSE AND FAMILY AT BEDSIDE. DENIES NEEDS AT THIS TIME, VERBALIZED UNDERSTANDING TO CALL FOR ANY ADDITIONAL NEEDS. MONITORING MAINITAINED.
--- NOTE | 2019-03-13 01:55 | NUR ---
IN ROOM TO ASSESS PATIENT. DENIES NEEDS AT THIS TIME. WILL CONTINUE TO MONITOR. CALL LIGHT IN REACH FAMILY AT BEDSIDE.
[2019-03-13 02:49] VITALS: BP 155/81
--- NOTE | 2019-03-13 02:49 | NUR ---
DISCHARGE INSTRUCTIOSN REVIEWED WITH PATIENT AND SPOUSE. OPPORTUNITY FOR QUESTIONS PROVIDED. ASSISTED WITH DRESSING PATIENT. PATIENT TRANSFERED TO [employer] WITH ASSISTANCE OF 1. ESCORTED TO PRIVATE VEHICLE WHERE PT. WAS ASSISTED INTO CAR, SEAT BELT SECURE.
--- NOTE | 2019-03-13 07:22 | Diagnostic Imaging Report ---
PROCEDURE: CT head, face, and cervical spine without contrast. TECHNIQUE: Multiple contiguous axial images were obtained through the head, neck, and facial bones without the use of intravenous contrast. Sagittal and coronal reformations through the cervical spine and facial bones were also performed. Auto Exposure Controls were utilized during the CT exam to meet ALARA standards for radiation dose reduction. INDICATION: Trauma, fall. COMPARISON: CT head 04/24/2018. FINDINGS: CT head: No hyperdense hemorrhage or space-occupying mass. Large amorphous calcification of the bilateral periventricular white matter/miles radiata are unchanged. A small amount of hypoattenuation surrounding these mineralizations are also similar to prior exam. Uribe-white matter differentiation is otherwise well preserved. Basilar cisterns are widely patent. No acute skull fracture. CT face: No acute fracture in the mid face or mandible. Temporomandibular joints are normal in alignment. Paranasal sinuses are clear. Orbits are unremarkable without features of traumatic injury. CT cervical spine: No acute fracture or traumatic malalignment in cervical spine. Multilevel degenerative changes do not result in high-grade spinal stenosis. Calcified plaque is present at the carotid bulbs. Thyroid is normal. No cervical lymphadenopathy. IMPRESSION: 1. No acute traumatic injury in the head, face or cervical spine. 2. Findings are in agreement with the preliminary report. Dictated by: Dictated on workstation # [id number]
--- NOTE | 2019-03-13 07:24 | Diagnostic Imaging Report ---
INDICATION: Fall. COMPARISON: None available. FINDINGS: Nonobstructive bowel gas pattern. No features of free intraperitoneal air on limited supine imaging. Small volume of colonic stool is likely physiologic. Cholecystectomy. Degenerative changes are noted in the spine and hips. Assessment for traumatic injury of the osseous structures is limited on AP imaging alone. IMPRESSION: No features of acute abnormality in the abdomen by supine radiography. Dictated by: Dictated on workstation # [id number]
--- NOTE | 2019-03-13 07:27 | Diagnostic Imaging Report ---
INDICATION: Trauma, fall. COMPARISON: 05/10/2015. FINDINGS: Scattered bilateral ill-defined pulmonary opacities have mildly worsened since prior examination. No pleural effusion or pneumothorax. Heart is enlarged and status post CABG. Stable left pectoral transvenous pacemaker/ICD. Old partially healed posterior right rib fractures. IMPRESSION: Scattered bilateral pulmonary opacities are indeterminate in age, but in the acute setting could represent pulmonary edema. Dictated by: Dictated on workstation # [id number]
== END 2019-03-13 02:50 | disposition home or self-care (01) ==
LOC: EDUNIT# 23:50 → ER 23:53
DX: S01.81XA Laceration without foreign body of other part of head, initial encounter (principal); S61.412A Laceration without foreign body of left hand, initial encounter; J44.9 Chronic obstructive pulmonary disease, unspecified; I10 Essential (primary) hypertension; G40.909 Epilepsy, unspecified, not intractable, without status epilepticus; F32.9 Major depressive disorder, single episode, unspecified; R40.2142 Coma scale, eyes open, spontaneous, at arrival to emergency department; R40.2252 Coma scale, best verbal response, oriented, at arrival to emergency department; R40.2362 Coma scale, best motor response, obeys commands, at arrival to emergency department; Z86.73 Personal history of transient ischemic attack (TIA), and cerebral infarction without residual deficits; Z95.1 Presence of aortocoronary bypass graft; Z79.82 Long term (current) use of aspirin; Z88.8 Allergy status to other drugs, medicaments and biological substances; Z82.49 Family history of ischemic heart disease and other diseases of the circulatory system; W01.198A Fall on same level from slipping, tripping and stumbling with subsequent striking against other object, initial encounter; Y92.003 Bedroom of unspecified non-institutional (private) residence as the place of occurrence of the external cause
CPT/HCPCS: 12013; 36415; 70450; 70486; 71045; 72125; 74018; 80053; 83735; 85025; 96360

== ENCOUNTER 2019-03-20 13:22 | Outpatient (RCR) | payer MEDICARE | END 2019-03-22 | disposition home or self-care (01) | LOC: CR3 13:22 | PROVIDERS: ATTEND Internal Medicine Cardiovascular Disease | DX: Z29.8 Encounter for other specified prophylactic measures (principal) ==

== ENCOUNTER 2019-03-25 14:56 | Emergency (ER) | payer MEDICARE, OTHER ==
[~2019-03-25] VITALS: Ht 185.4 cm; Wt 81.6 kg
[2019-03-25 15:26] VITALS: BP 131/77
--- OUTSIDE RECORDS SUMMARY | 2019-03-25 15:29 | XMS REPORT | Continuity of Care Document ---
Author Organization Unknown Address Unknown Allergies Active Description Code Type Severity Reaction Onset Reported/Identified Relationship to Patient Clinical Status Yes No Known Drug Allergies [id number] Drug Allergy Unknown N/A 10/17/2009 Yes amiodarone [id number] Drug Allergy Severe N/A 03/13/2019 Yes lorazepam [id number] Drug Allergy Unknown N/A 03/13/2019 Yes scopolamine [id number] Drug Allergy Unknown N/A 03/13/2019 Medications There is no data. Problems Date Dx Coded Attending Type Code Diagnosis Diagnosed By RINKU MELENDEZ Ot M54.32 SCIATICA, LEFT SIDE 08/01/1026 MEENA GAO, ELSA Cantor Ot R29.6 REPEATED FALLS 08/01/1026 MEENA GAO, ELSA Cantor Ot R42 DIZZINESS AND GIDDINESS 08/01/1219 MEENA GAO, ELSA Cantor Ot R29.6 REPEATED FALLS 08/01/1219 MEENA GAO, ELSA Cantor Ot R42 DIZZINESS AND GIDDINESS 08/01/1346 JONATHAN CHAMBERS, MARTINEZ Adame Ot R26.89 OTHER ABNORMALITIES OF GAIT AND [...] INFARCT 01/05/2011 Ot 414.01 CORONARY ATHEROSCLEROSIS OF [place] CORON 01/05/2011 Ot 414.8 CHR ISCHEMIC HRT [...] W/O SUB FALL NEC 10/14/2011 Ot V06.1 [id number], COMBINED [ 10/09/2012 Ot 263.9 PROTEIN-JUANA MALNUTR NOS 10/09/2012 Ot 272.4 HYPERLIPIDEMIA NEC/NOS 10/09/2012 Ot 276.1 HYPOSMOLALITY 10/09/2012 Ot 276.8 HYPOPOTASSEMIA 10/09/2012 Ot 285.9 ANEMIA NOS 10/09/2012 Ot 289.84 HEPARIN-INDUCED THROMBOCYTOPENIA (HIT) 10/09/2012 Ot 345.90 EPILEPSY UNSPEC W/O MENTION INTRACTABLE 10/09/2012 Ot 412 OLD MYOCARDIAL INFARCT 10/09/2012 Ot 414.01 CORONARY ATHEROSCLEROSIS OF [place] CORON 10/09/2012 Ot 414.8 CHR ISCHEMIC HRT [...] JOY DO Ot 272.0 PURE HYPERCHOLESTEROLEM 05/05/2014 RONAK JOY DO Ot 276.51 DEHYDRATION 05/05/2014 BENITA ESTRADA RONAK Ot 276.7 HYPERPOTASSEMIA 05/05/2014 RONAK JOY DO Ot 345.90 EPILEPSY UNSPEC W/O MENTION INTRACTABLE 05/05/2014 RONAK JOY DO Ot 412 OLD MYOCARDIAL INFARCT 05/05/2014 BENITA ESTRADA RONAK Ot 414.00 CORON ATHEROSCLER NOS TYPE VESSEL, NATIV 05/05/2014 RONAK JOY DO Ot 414.8 CHR ISCHEMIC HRT DIS NEC 05/05/2014 RONAK JOY DO Ot 424.0 MITRAL VALVE DISORDER 05/05/2014 DAWYNE JOY DOI Ot 438.89 OTH LATE EFFECT-CEREBROVASCULAR DISEASE 05/05/2014 RONAK JOY DO Ot 493.20 CHRONIC OBSTRUCTIVE ASTHMA, NOS 05/05/2014 RONAK JOY DO Ot 530.81 ESOPHAGEAL REFLUX 05/05/2014 BENITA ESTRADA RONAK Ot 585.9 CHRONIC KIDNEY DISEASE, UNSPECIFIED 05/05/2014 BENITA ESTRADA RONAK Ot 593.9 RENAL URETERAL DIS NOS 05/05/2014 RONAK JOY DO Ot 780.2 SYNCOPE AND COLLAPSE 05/05/2014 RONAK JOY DO Ot 780.4 DIZZINESS AND GIDDINESS 05/05/2014 BENITA ESTRADA RONAK Ot 787.91 DIARRHEA 05/05/2014 DWAYNE JOY DOI Ot 790.5 ABN SERUM ENZY LEVEL NEC 05/05/2014 BENITA ESTRADA RONAK Ot 812.00 FX UP END HUMERUS NOS-CL 05/05/2014 DWAYNE JOY DOI Ot E849.0 ACCIDENT IN HOME 05/05/2014 DWAYNE JOY DOI Ot E888.9 FALL NOS 05/05/2014 DWAYNE JOY DOI Ot E942.0 ADV EFF CARD RHYTH REGUL 05/05/2014 DWAYNE JOY DOI Ot E942.9 ADV EFF CARDIOVASC NEC 05/05/2014 DWAYNE OJY DOI Ot V15.82 HISTORY OF TOBACCO USE 05/05/2014 BENITA ESTRADA RONAK Ot V45.02 AUTO IMPLANTABLE CARDIAC DEFIBRILLATOR I 05/05/2014 BENITA ESTRADADWAYNEI Ot V45.81 AORTOCORONARY BYPASS 05/25/2014 JOHANNA WARREN MD E Ot 244.9 HYPOTHYROIDISM NOS 05/25/2014 JOHANNA WARREN MD E Ot 272.4 HYPERLIPIDEMIA NEC/NOS 05/25/2014 BRIANA GAO JOHANNA E Ot 273.8 DIS PLAS PROTEIN MET NEC 05/25/2014 GIANNI WARREN MDIC E Ot 276.1 HYPOSMOLALITY 05/25/2014 BRIANA GAO JOHANNA E Ot 276.7 HYPERPOTASSEMIA 05/25/2014 BRIANA GAO JOHANNA E Ot 285.9 ANEMIA NOS 05/25/2014 BRIANA GAO JOHANNA E Ot 311 DEPRESSIVE DISORDER NEC 05/25/2014 GIANNI WARREN MDIC E Ot 345.90 EPILEPSY UNSPEC W/O MENTION INTRACTABLE 05/25/2014 BRIANA GAO JOHANNA E Ot 414.01 CORONARY ATHEROSCLEROSIS OF [place] CORON 05/25/2014 JOHANNA WARREN MD E Ot 414.8 CHR ISCHEMIC HRT DIS NEC 05/25/2014 GIANNI WARREN MDIC E Ot 424.0 MITRAL VALVE DISORDER 05/25/2014 BRIANA GAO JOHANNA E Ot 427.41 VENTRICULAR FIBRILLATION 05/25/2014 BRIANA GAO JOHANNA E Ot 433.10 CAROTID ARTERY OCCLUSION W O CEREBRAL IN 05/25/2014 GIANNI WARREN MDIC E Ot 493.20 CHRONIC OBSTRUCTIVE ASTHMA, NOS 05/25/2014 BRIANA GAO JOHANNA E Ot 530.81 ESOPHAGEAL REFLUX 05/25/2014 BRIANA GAO JOHANNA E Ot 781.2 ABNORMALITY OF GAIT 05/25/2014 JOHANNA WARREN MD E Ot 787.21 DYSPHAGIA, ORAL PHASE 05/25/2014 JOHANNA WARREN MD E Ot 790.6 ABN BLOOD CHEMISTRY NEC 05/25/2014 BRIANA GAO JOHANNA E Ot V45.02 AUTO IMPLANTABLE CARDIAC DEFIBRILLATOR I 05/25/2014 BRIANA GAO, JOHANNA Lopez Ot V45.81 AORTOCORONARY BYPASS 05/25/2014 BRIANA GAO, JOHANNA Lopez Ot V45.82 PERCUTANEOUS TRANSLUM CORON ANGIOPLASTY 05/25/2014 BRIANA GAO, JOHANNA Lopez Ot V46.2 SUPPLEMENTAL OXYGEN 05/25/2014 BRIANA GAO, JOHANNA Lopez Ot V54.11 AFTERCARE HEALING TRAUMATIC FX UPPER ARM 05/25/2014 BRIANA GAO, JOHANNA Lopez Ot V57.89 REHABILITATION PROC BANNER 07/15/2014 FRANCOIS DO, PEARL F Ot V54.11 07/15/2014 FRANCOIS DO, PEARL F Ot V57.1 07/20/2014 FRANCOIS DO PEARL F Ot V54.11 07/20/2014 FRANCOIS DO PEARL F Ot V57.1 07/27/2014 FRANCOIS DO PEARL F Ot V54.11 07/27/2014 FRANCOIS DO, PEARL F Ot V57.1 07/28/2014 DWAYNE JOY DOI Ot V54.11 07/28/2014 BENITA ESTRADA RONAK Ot V57.21 08/02/2014 FRANCOIS ESTRADA PEARL F Ot V54.11 08/02/2014 FRANCOIS DO PEARL F Ot V57.1 08/04/2014 DWAYNE JOY DOI Ot V54.11 08/04/2014 DWAYNE JOY DOI Ot V57.21 08/16/2014 HERNAN THIBODEAUX Ot 873.42 OPEN WOUND OF [place] 08/16/2014 HERNAN THIBODEAUX Ot 910.0 ABRASION HEAD 08/16/2014 HERNAN THIBODEAUX Ot 959.01 HEAD INJURY, NOS 08/16/2014 HERNAN THIBODEAUX Ot E000.8 OTHER EXTERNAL CAUSE STATUS 08/16/2014 HERNAN THIBODEAUX Ot E849.7 ACCID IN RESIDENT INSTIT 08/16/2014 HERNAN THIBODEAUX Ot E888.9 FALL NOS 08/16/2014 HERNAN THIBODEAUX Ot V06.1 [id number], COMBINED [ 08/17/2014 BENITA ESTRADA RONAK Ot V54.11 08/17/2014 BENITA ESTRADA RONAK Ot V57.21 09/01/2014 PEARL PARRISH DO Ot V54.11 09/01/2014 PEARL PARRISH DO Ot V57.1 09/07/2014 Ot 272.9 09/07/2014 Ot [...] 09/07/2014 Ot 429.3 09/07/2014 Ot 786.09 09/07/2014 JOYRONAK STRONG DO Ot 959.6 09/07/2014 KADE GAO FACC, ALI FACP CCDS Ot 397.0 09/07/2014 KADE GAO FACC, ALI FACP CCDS Ot 414.00 09/07/2014 KADE GAO FACC, ALI FACP CCDS Ot 414.8 09/07/2014 KADE GAO FACC, ALI FACP CCDS Ot 424.0 09/07/2014 KADE GAO FACC, ALI FACP CCDS Ot 427.41 09/07/2014 KADE GAO FACC, ALI FACP CCDS Ot 780.79 09/07/[address] [facility] CCDS Ot V45.02 09/07/2014 PEARL PARRISH DO Ot V54.11 09/07/2014 PEARL PARRISH DO Ot V57.1 09/07/2014 DWAYNE JOY DOI Ot V54.11 09/07/2014 BENITA ESTRADA RONAK Ot [...] ESTRADA RONAK Ot 414.01 CORONARY ATHEROSCLEROSIS OF [place] CORON 09/22/2014 BENITA ESTRADA RONAK Ot 414.8 [...] BENITA ESTRADA RONAK Ot 995.91 SEPSIS 09/22/2014 BENITA ESTRADA RONAK Ot V45.02 AUTO IMPLANTABLE CARDIAC DEFIBRILLATOR I 09/22/2014 BENITA ESTRADA RONAK Ot V45.81 AORTOCORONARY BYPASS 09/28/2014 PEARL PARRISH DO Ot V54.11 AFTERCARE HEALING TRAUMATIC FX UPPER ARM 09/28/2014 FRANCOIS DOPEARL Ot V57.1 PHYSICAL THERAPY NEC 09/28/2014 RONAK JOY DO Ot 038.42 E COLI SEPTICEMIA 09/28/2014 RONAK JOY DO Ot 272.4 HYPERLIPIDEMIA NEC/NOS 09/28/2014 DWAYNE JOY DOI Ot 276.1 HYPOSMOLALITY 09/28/2014 DWYANE JOY DOI Ot 285.9 ANEMIA NOS 09/28/2014 DWAYNE JOY DOI Ot 296.20 DEPRESS DISORDER-UNSPEC 09/28/2014 BENITA ESTRADA RONAK Ot 300.00 ANXIETY STATE NOS 09/28/2014 BENITA ESTRADA RONAK Ot 311 09/28/2014 RONAK JOY DO Ot 345.90 EPILEPSY UNSPEC W/O MENTION INTRACTABLE 09/28/2014 DWAYNE JOY DOI Ot 414.01 CORONARY ATHEROSCLEROSIS OF [place] CORON 09/28/2014 DWAYNE JOY DOI Ot 414.8 [...] JOY DOI Ot 530.81 ESOPHAGEAL REFLUX 09/28/2014 DWAYNE JOY DOI Ot 599.0 URIN TRACT INFECTION NOS 09/28/2014 DWAYNE JOY DOI Ot 995.91 SEPSIS 09/28/2014 RONAK JOY DO Ot V45.02 AUTO IMPLANTABLE CARDIAC DEFIBRILLATOR I 09/28/2014 RONAK JOY DO Ot V45.81 AORTOCORONARY BYPASS 10/02/2014 RONAK JOY DO Ot V54.11 10/02/2014 RONAK JOY DO Ot V57.21 10/07/2014 RONAK JOY DO Ot V54.11 AFTERCARE HEALING TRAUMATIC FX UPPER ARM 10/07/2014 RONAK JOY DO Ot V57.21 ENCOUNTER FOR OCCUPATIONAL THERAPY 12/21/2014 RONAK JOY DO Ot 728.87 12/21/2014 JOY DO, RONAK Ot V57.1 12/22/2014 JOY DO, RONAK Ot 728.87 12/22/2014 JOY DO, RONAK Ot V57.1 01/31/2015 JOY DO, RONAK Ot 728.87 01/31/2015 JOY DO, RONAK Ot V57.1 03/20/2015 JOY DO, RONAK Ot 728.87 MUSCLE WEAKNESS (GENERALIZED) 03/20/2015 JOY DO, RONAK Ot V57.1 PHYSICAL THERAPY NEC 04/07/2015 JYO DO, RONAK Ot 728.87 04/07/2015 JOY DO, RONAK Ot V57.1 05/10/2015 KADE GAO FACC, DANNIELLE FACP CCDS Ot 272.4 HYPERLIPIDEMIA NEC/NOS 05/10/2015 KADE GAO FACC, DANNIELLE FACP CCDS Ot 300.4 DYSTHYMIC DISORDER 05/10/2015 KADE GAO FACC, DANNIELLE FACP CCDS Ot 345.90 EPILEPSY UNSPEC W/O MENTION INTRACTABLE 05/10/2015 KADE GAO FACC, DANNIELLE SONGP CCDS Ot 414.01 CORONARY ATHEROSCLEROSIS OF [place] CORON 05/10/2015 KADE GAO FACC, DANNIELLE SONGP CCDS Ot 414.8 CHR ISCHEMIC HRT DIS NEC 05/10/2015 KADE GAO FACC, DANNIELLE SONGP CCDS Ot 493.90 ASTHMA, UNSPECIFIED 05/10/2015 KADE GAO FACC, DANNIELLE FACP CCDS Ot 530.81 ESOPHAGEAL REFLUX 05/10/2015 KADE GAO FACC, DANNIELLE FACP CCDS Ot V15.82 HISTORY OF TOBACCO USE 05/10/2015 DANNIELLE BRAUN MD, FACC FACP CCDS Ot V45.81 AORTOCORONARY BYPASS 05/10/2015 DANNIELLE BRAUN MD, FACCP CCDS Ot V45.82 PERCUTANEOUS TRANSLUM CORON ANGIOPLASTY 05/10/2015 DANNIELLE BRAUN MD, FACCP CCDS Ot V53.32 FITTING ADJUST AUTOMAT IMPLANT CARDIAC 05/10/2015 DANNIELLE BRAUN MD, FACCP CCDS Ot V58.69 OT MED,LT,CURRENT USE 11/22/2015 MARY HERRING DO Ot I10 ESSENTIAL (PRIMARY) HYPERTENSION 11/22/2015 MARY HERRING DO Ot J44.9 CHRONIC OBSTRUCTIVE PULMONARY DISEASE, U 11/22/2015 MARY HERRING DO Ot S00.33XA CONTUSION OF NOSE, INITIAL ENCOUNTER 11/22/2015 NIMA DOMARY Rossana Ot S40.011A CONTUSION OF RIGHT SHOULDER, INITIAL ENC 11/22/2015 NIMA DOMARY Rossana Ot W10.1XXA FALL (ON)(FROM) SIDEWALK CURB, INITIAL E 11/22/2015 NIMA MARY Rossana Ot Y99.8 OTHER EXTERNAL CAUSE STATUS 11/22/2015 NIMA ESTRADA MARY Rossana Ot Z79.82 DETENTION (CURRENT) USE OF ASPIRIN 11/22/2015 NIMA ESTRADA MARY Rossana Ot Z79.899 OTHER DETENTION (CURRENT) DRUG THERAPY 11/23/2015 MARY HERRING DO Ot I10 11/23/2015 NIMA ESTRADA MARY Rossana Ot J44.9 11/23/2015 NIMA ESTRADA MARY Rossana Ot S00.33XA 11/23/2015 NIMA DOMARY Rossana Ot S40.011A 11/23/2015 NIMA ESTRADA MARY Rossana Ot W10.1XXA 11/23/2015 NIMA ESTRADA MARY Rossana Ot Y99.8 11/23/2015 NIMA ESTRADA MARY Rossana Ot Z79.82 11/23/2015 NIMAFELICITAS ESTRADA MARY Rossana Ot Z79.899 12/29/2015 Ot 465.9 ACUTE URI NOS 12/29/2015 Ot V58.69 OTH MED,LT,CURRENT USE 12/29/2015 Ot V72.63 PRE-PROCEDURAL LABORATORY EXAMINATION 12/29/2015 Ot V74.8 SCREEN-BACTERIAL DIS NEC 12/29/2015 Ot 715.95 OSTEOARTHROS NOS-PELVIS 12/29/2015 Ot 414.01 CORONARY ATHEROSCLEROSIS OF [place] CORON 12/29/2015 Ot 786.09 RESPIRATORY ABNORM NEC 12/29/2015 Ot V45.81 AORTOCORONARY BYPASS 12/29/2015 Ot V45.82 PERCUTANEOUS TRANSLUM CORON ANGIOPLASTY 12/29/2015 Ot 414.8 CHR ISCHEMIC HRT DIS NEC 12/29/2015 Ot 429.3 CARDIOMEGALY 12/29/2015 Ot 786.09 RESPIRATORY ABNORM NEC 12/29/2015 RONAK JOY DO Ot 959.6 HIP THIGH INJURY NOS 12/29/2015 KADE GAO FACC, DANNIELLE CARDENAS CCDS Ot 397.0 TRICUSPID VALVE DISEASE 12/29/2015 KADEDANNIELLE GUPTA MD, FACC [facility]S Ot 414.00 CORON ATHEROSCLER NOS TYPE VESSEL, NATIV 12/29/2015 DANNIELLE BRAUN MD, FACC [facility] CCDS Ot 414.8 CHR ISCHEMIC HRT DIS NEC 12/29/2015 DANNIELLE BRAUN MD, FACC [facility] CCDS Ot 424.0 MITRAL VALVE DISORDER 12/29/2015 DANNIELLE BRAUN MD, FACC [facility] CCDS Ot 427.41 VENTRICULAR FIBRILLATION 12/29/2015 DANNIELLE BRAUN MD, FACC [facility] CCDS Ot 780.79 OTH MALAISE FATIGUE 12/29/2015 DANNIELLE BRAUN MD, FACC [facility] CCDS Ot V45.02 AUTO IMPLANTABLE CARDIAC DEFIBRILLATOR I 01/06/2016 GRECIA FOSTER FIN[employer]CIAL SERVICES CONSULTANT Ot N50.8 OTHER SPECIFIED DISORDERS OF MALE GENITA 01/09/2016 GRECIA FOSTER [employer] SERVICES CONSULTANT Ot N50.8 OTHER SPECIFIED DISORDERS OF MALE GENITA 01/09/2016 KRISTIN [employer] L [employer]ANCIAL SERVICES CONSULTANT Ot N43.3 HYDROCELE, UNSPECIFIED 01/09/2016 GRECIA FOSTER [employer] SERVICES CONSULTANT Ot N45.1 EPIDIDYMITIS 01/10/2016 GRECIA FOSTER L FINANCIAL SERVICES CONSULTANT Ot N43.3 HYDROCELE, UNSPECIFIED 01/10/2016 KRISTIN [employer] SERVICES CONSULTANT Ot N45.1 EPIDIDYMITIS 01/19/2016 DANNIELLE BRAUN MD, FACC FACP CCDS Ot I25.10 ATHSCL HEART DISEASE OF [place] CORONARY 01/19/2016 DANNIELLE BRAUN MD, FACC [facility] CCDS Ot I25.5 ISCHEMIC CARDIOMYOPATHY 01/26/2016 GRECIA FOSTER [employer] SERVICES CONSULTANT Ot N43.3 HYDROCELE, UNSPECIFIED 01/26/2016 KRISTIN [employer] L [employer]AN[employer] SERVICES CONSULTANT Ot N45.1 EPIDIDYMITIS 06/18/2016 Ot 715.95 OSTEOARTHROS NOS-PELVIS 06/18/2016 Ot 414.01 CORONARY ATHEROSCLEROSIS OF [place] CORON 06/18/2016 Ot 786.09 RESPIRATORY ABNORM NEC 06/18/2016 Ot V45.81 AORTOCORONARY BYPASS 06/18/2016 Ot V45.82 PERCUTANEOUS TRANSLUM CORON ANGIOPLASTY 06/18/2016 Ot 414.8 CHR ISCHEMIC HRT DIS NEC 06/18/2016 Ot 429.3 CARDIOMEGALY 06/18/2016 Ot 786.09 RESPIRATORY ABNORM NEC 06/18/2016 RONAK JOY DO Ot 959.6 HIP THIGH INJURY NOS 06/18/2016 KADE GAO FACC, DANNIELLE FACP CCDS Ot 397.0 TRICUSPID VALVE DISEASE 06/18/2016 KADE GAO FACC, DANNIELLE FACP CCDS Ot 414.00 CORON ATHEROSCLER NOS TYPE VESSEL, NATIV 06/18/2016 KADE GAO FACC, ALI FACP CCDS Ot 414.8 CHR ISCHEMIC HRT DIS NEC 06/18/2016 KADE GAO FACC, DANNIELLE FACP CCDS Ot 424.0 MITRAL VALVE DISORDER 06/18/2016 KADE GAO FACC, DANNIELLE FACP CCDS Ot 427.41 VENTRICULAR FIBRILLATION 06/18/2016 KADE GAO FACC, DANNIELLE FACP CCDS Ot 780.79 OTH MALAISE FATIGUE 06/18/2016 KADE GAO FACC, DANNIELLE FACP CCDS Ot V45.02 AUTO IMPLANTABLE CARDIAC DEFIBRILLATOR I 06/18/2016 DANNIELLE BRAUN MD, FACC FACP CCDS Ot I25.10 ATHSCL HEART DISEASE OF [place] CORONARY 06/18/2016 KADE GAO FACC, DANNIELLE FACP CCDS Ot I25.5 ISCHEMIC CARDIOMYOPATHY 06/18/2016 GRECIA FOSTER [employer] SERVICES CONSULTANT Ot N43.3 HYDROCELE, UNSPECIFIED 06/18/2016 GRECIA FOSTER [employer] SERVICES CONSULTANT Ot N45.1 EPIDIDYMITIS 07/19/2016 RINKU MELENDEZ Ot M54.32 SCIATICA, LEFT SIDE 08/01/2016 RINKU MELENDEZ Ot M54.32 SCIATICA, LEFT SIDE 08/14/2016 RINKU MELENDEZ Ot M54.32 SCIATICA, LEFT SIDE 08/16/2016 KADE GAO FACC, DANNIELLE FACP CCDS Ot G47.30 SLEEP APNEA, UNSPECIFIED 08/16/2016 KADE GAO FACC, DANNIELLE FACP CCDS Ot I25.10 ATHSCL HEART DISEASE OF [place] CORONARY 08/16/2016 KADE GAO FACC, DANNIELLE FACP CCDS Ot I25.5 ISCHEMIC CARDIOMYOPATHY 08/16/2016 KADE GAO FACC, DANNIELLE FACP CCDS Ot I65.23 OCCLUSION AND STENOSIS OF [place] 08/16/2016 KADE GAO FACC, DANNIELLE FACP CCDS Ot R53.1 WEAKNESS 08/16/2016 KADE GAO FACC, DANNIELLE FACP CCDS Ot Z95.810 PRESENCE OF AUTOMATIC (IMPLANTABLE) CARD 08/21/2016 KADE SONGC, ALI FACP CCDS Ot G47.30 SLEEP APNEA, UNSPECIFIED 08/21/2016 KADE GAO FACC, ALI FACP CCDS Ot I25.10 ATHSCL HEART DISEASE OF [place] CORONARY 08/21/2016 KADE GAO FACC, ALI FACP CCDS Ot I25.5 ISCHEMIC CARDIOMYOPATHY 08/21/2016 KADE GAO FACC, ALI FACP CCDS Ot I65.23 OCCLUSION AND STENOSIS OF [place] 08/21/2016 KADE GAO FACC, ALI FACP CCDS Ot R53.1 WEAKNESS 08/21/2016 KADE GAO FACC, ALI FACP CCDS Ot Z95.810 PRESENCE OF AUTOMATIC (IMPLANTABLE) CARD 09/11/2016 KADE GAO FACC, ALI FACP CCDS Ot G47.30 SLEEP APNEA, UNSPECIFIED 09/11/2016 KADE GAO FACC, ALI FACP CCDS Ot I25.10 ATHSCL HEART DISEASE OF [place] CORONARY 09/11/2016 KADE GAO FACC, ALI FACP [...] CCDS Ot I25.10 ATHSCL HEART DISEASE OF [place] CORONARY 01/30/2017 KDAE GAO FACC, ALI FACP CCDS Ot I25.5 ISCHEMIC CARDIOMYOPATHY 01/30/2017 KADE GAO FACAris, ALI FACP CCDS Ot I65.23 OCCLUSION AND [...] CCDS Ot I25.10 ATHSCL HEART DISEASE OF [place] CORONARY 02/01/2017 KADE GAO FACC, ALI FACP [...] CCDS Ot I25.10 ATHSCL HEART DISEASE OF [place] CORONARY 02/01/2017 KADE GAO FACC, ALI FACP [...] CCDS Ot I25.10 ATHSCL HEART DISEASE OF [place] CORONARY 02/01/2017 KADE GAO FACC, ALI FACP CCDS Ot I25.5 ISCHEMIC CARDIOMYOPATHY 02/01/2017 KADE MD FACC, ALI FACP CCDS Ot I65.23 OCCLUSION [...] CCDS Ot I25.10 ATHSCL HEART DISEASE OF [place] CORONARY 02/01/2017 KADE GAO FACC, ALI FACP [...] CCDS Ot I25.10 ATHSCL HEART DISEASE OF [place] CORONARY 02/01/2017 KADE GAO FACC, ALI FACP [...] PRESENCE OF AUTOMATIC (IMPLANTABLE) CARD 02/01/2017 KADE MD FACC, ALI FACP CCDS Ot I25.10 ATHSCL HEART DISEASE OF [place] CORONARY 02/01/2017 KADE GAO FACC, ALI FACP [...] CCDS Ot I25.10 ATHSCL HEART DISEASE OF [place] CORONARY 02/19/2017 KADE GAO FACC, ALI FACP CCDS Ot I25.5 ISCHEMIC CARDIOMYOPATHY 02/19/2017 KADE GAO FACC, ALI FACP CCDS Ot I65.23 OCCLUSION AND STENOSIS OF [place] 02/19/2017 KADE GAO FAC, ALI FACP CCDS Ot I70.0 ATHEROSCLEROSIS OF [place] 02/19/2017 KADE GAO FAC, ALI FACP CCDS Ot I73.9 PERIPHERAL VASCULAR DISEASE, UNSPECIFIED 02/19/2017 KADE GAO FACC, ALI FACP CCDS Ot 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 02/19/[address] [facility], ALI FACP CCDS Ot Z95.810 PRESENCE OF [...] OTHER ABNORMALITIES OF GAIT AND MOBILITY 04/29/2017 HEARNDON DO, ELSA L Ot M48.06 SPINAL STENOSIS, LUMBAR REGION 04/29/2017 HEARNDON DO, ELSA L Ot R26.89 OTHER ABNORMALITIES OF GAIT AND MOBILITY 05/24/2017 HEARNDON DO, ELSA L Ot M48.06 SPINAL STENOSIS, LUMBAR REGION 05/24/2017 HEARNDON DO, ELSA L Ot R26.89 OTHER ABNORMALITIES OF GAIT AND MOBILITY 06/01/2017 HEARNDON DO, ELSA L Ot M48.06 SPINAL [...] Z29.8 ENCOUNTER FOR OTHER SPECIFIED PROPHYLACT 03/05/2018 LLUVAI ALMONTE MD Ot Z29.8 ENCOUNTER FOR OTHER [...] CARDIAC DEFIBRILLATOR I 04/22/2018 KADE GAO FACC, ALI FACP CCDS Ot I25.10 ATHSCL HEART DISEASE OF [place] CORONARY 04/22/2018 KADE GAO FACC, DANNIELLE FACP CCDS Ot I25.5 ISCHEMIC CARDIOMYOPATHY 04/22/2018 GRECIA FOSTER [employer]CIAL SERVICES CONSULTANT Ot N43.3 HYDROCELE, UNSPECIFIED 04/22/2018 GRECIA FOSTER [employer] SERVICES CONSULTANT Ot N45.1 EPIDIDYMITIS 04/22/2018 KADE GAO FACC, DANNIELLE FACP CCDS Ot G47.30 SLEEP APNEA, UNSPECIFIED 04/22/2018 KADE GAO FACC, ALI FACP CCDS Ot I25.10 ATHSCL HEART DISEASE OF [place] CORONARY 04/22/2018 KADE GAO FACC, ALI FACP CCDS Ot I25.5 ISCHEMIC CARDIOMYOPATHY 04/22/2018 KADE GAO FACC, ALI FACP CCDS Ot I65.23 OCCLUSION AND STENOSIS OF [place] 04/22/2018 KADE GAO FACC, ALI FACP CCDS Ot R53.1 WEAKNESS 04/22/2018 KADE GAO FACC, ALI FACP CCDS Ot Z95.810 PRESENCE OF AUTOMATIC (IMPLANTABLE) CARD 04/22/2018 KADE GAO FACC, ALI FACP CCDS Ot I25.10 ATHSCL HEART DISEASE OF [place] CORONARY 04/22/[address] [facility], ALI FACP CCDS Ot I25.5 ISCHEMIC CARDIOMYOPATHY 04/22/2018 KADE GAO FAC, ALI FACP CCDS Ot I65.23 OCCLUSION AND STENOSIS OF [place] 04/22/2018 KADE GAO FAC, ALI FACP CCDS Ot I70.0 ATHEROSCLEROSIS OF [place] 04/22/[address] [facility], ALI FACP CCDS Ot I73.9 PERIPHERAL VASCULAR DISEASE, UNSPECIFIED 04/22/2018 KADE GAO FAC, ALI FACP CCDS Ot 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 04/22/2018 KADE GAO FAC, ALI FACP CCDS Ot Z95.810 PRESENCE OF [...] MD Ot R42 DIZZINESS AND GIDDINESS 09/03/2018 RONAK JOY DO Ot 959.6 HIP THIGH INJURY NOS 09/03/2018 KADE GAO FACC, DANNIELLE FACP CCDS Ot 397.0 TRICUSPID VALVE DISEASE 09/03/2018 KADE GAO FACC, ALI FACP CCDS [...] CCDS Ot I25.10 ATHSCL HEART DISEASE OF [place] CORONARY 09/03/2018 KADE GAO FACC, DANNIELLE FACP CCDS Ot I25.5 ISCHEMIC CARDIOMYOPATHY 09/03/2018 GRECIA FOSTER FINANCIAL SERVICES CONSULTANT Ot N43.3 HYDROCELE, UNSPECIFIED 09/03/2018 GRECIA FOSTER [employer] SERVICES CONSULTANT Ot N45.1 EPIDIDYMITIS 09/03/2018 KADE GAO FACC, DANNIELLE FACP CCDS Ot G47.30 SLEEP APNEA, UNSPECIFIED 09/03/2018 KADE GAO FACC, ALI FACP CCDS Ot I25.10 ATHSCL HEART DISEASE OF [place] CORONARY 09/03/2018 KADE GAO FACC, DANNIELLE FACP [...] CCDS Ot I25.10 ATHSCL HEART DISEASE OF [place] CORONARY 09/03/2018 KADE GAO FACC, ALI FACP CCDS Ot I25.5 ISCHEMIC CARDIOMYOPATHY 09/03/2018 KADE GAO FACC, DANNIELLE FACP CCDS Ot I65.23 OCCLUSION AND STENOSIS OF [place] 09/03/2018 KADE GAO FACC, DANNIELLE FACP CCDS Ot I70.0 ATHEROSCLEROSIS OF [place] 09/03/2018 KADE GAO FACC, DANNIELLE FACP CCDS Ot I73.9 PERIPHERAL VASCULAR DISEASE, UNSPECIFIED 09/03/2018 KADE GAO FACC, DANNIELLE FACP CCDS Ot 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 09/03/2018 KADE GAO FACC, DANNIELLE FACP CCDS Ot Z95.810 PRESENCE OF AUTOMATIC (IMPLANTABLE) CARD 09/03/2018 BENITA ESTRADA, RONAK Ot I63.9 CEREBRAL INFARCTION, UNSPECIFIED 09/03/2018 [...] TYPE VESSEL, NATIV 09/03/2018 KADE GAO FACC, DANNIELLE FACP CCDS Ot 414.8 CHR ISCHEMIC HRT DIS NEC 09/03/2018 KADE GAO FACC, DANNIELLE FACP CCDS Ot 424.0 MITRAL VALVE DISORDER 09/03/2018 KADE GAO FACC, DANNIELLE FACP CCDS Ot 427.41 VENTRICULAR FIBRILLATION 09/03/2018 KADE GAO FACC, DANNIELLE FACP CCDS Ot 780.79 OTH MALAISE FATIGUE 09/03/2018 KADE GAO FACC, DANNIELLE FACP CCDS Ot V45.02 AUTO IMPLANTABLE CARDIAC DEFIBRILLATOR I 09/03/2018 DANNIELLE BRAUN MD, FACC FACP CCDS Ot I25.10 ATHSCL HEART DISEASE OF [place] CORONARY 09/03/2018 KADE GAO FACC, DANNIELLE FACP CCDS Ot I25.5 ISCHEMIC CARDIOMYOPATHY 09/03/2018 GRECIA FOSTER [employer] SERVICES CONSULTANT Ot N43.3 HYDROCELE, UNSPECIFIED 09/03/2018 GRECIA FOSTER [employer] SERVICES CONSULTANT Ot N45.1 EPIDIDYMITIS 09/03/2018 KADE GAO FAC, ALI FACP CCDS Ot G47.30 SLEEP APNEA, UNSPECIFIED 09/03/2018 KADE GAO FACC, ALI FACP CCDS Ot I25.10 ATHSCL HEART DISEASE OF [place] CORONARY 09/03/2018 KADE GAO [facility], ALI FACP CCDS Ot I25.5 ISCHEMIC CARDIOMYOPATHY 09/03/[address] [facility], ALI FACP CCDS Ot I65.23 OCCLUSION AND STENOSIS OF [place] 09/03/[address] [facility], ALI FACP CCDS Ot R53.1 WEAKNESS 09/03/2018 [address] [facility], ALI FACP CCDS Ot Z95.810 PRESENCE OF AUTOMATIC (IMPLANTABLE) CARD 09/03/[address] [facility], ALI FACP CCDS Ot I25.10 ATHSCL HEART DISEASE OF [place] CORONARY 09/03/[address] [facility], ALI FACP CCDS Ot I25.5 ISCHEMIC CARDIOMYOPATHY 09/03/[address] [facility], ALI FACP CCDS Ot I65.23 OCCLUSION AND STENOSIS OF [place] 09/03/[address] [facility], ALI FACP CCDS Ot I70.0 ATHEROSCLEROSIS OF [place] 09/03/[address] [facility], ALI FACP CCDS Ot I73.9 PERIPHERAL VASCULAR DISEASE, UNSPECIFIED 09/03/[address] [facility], ALI FACP CCDS Ot 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 09/03/[address] [facility], ALI FACP CCDS Ot Z95.810 PRESENCE OF [...] Z29.8 ENCOUNTER FOR OTHER SPECIFIED PROPHYLACT 09/24/2018 ELSA ROBLEDO MD Ot R29.6 REPEATED FALLS 09/24/2018 ELSA ROBLEDO MD Ot R42 DIZZINESS AND GIDDINESS 10/01/2018 ELSA ROBLEDO MD Ot R29.6 REPEATED FALLS 10/01/2018 ELSA ROBLEDO MD Ot R42 DIZZINESS AND GIDDINESS 10/12/2018 LLUVIA ALMONTE MD Ot Z29.8 ENCOUNTER FOR OTHER SPECIFIED PROPHYLACT 10/13/2018 LLUVIA ALMONTE MD Ot Z29.8 ENCOUNTER FOR OTHER SPECIFIED PROPHYLACT 11/12/2018 LLUVIA ALMONTE MD Ot Z29.8 ENCOUNTER FOR OTHER SPECIFIED PROPHYLACT 11/13/2018 LLUVIA ALMONTE MD Ot Z29.8 ENCOUNTER FOR OTHER SPECIFIED PROPHYLACT 12/14/2018 LLUVIA ALMONTE MD Ot Z29.8 ENCOUNTER FOR OTHER SPECIFIED PROPHYLACT 12/15/2018 LLUVIA ALMONTE MD Ot Z29.8 ENCOUNTER FOR OTHER SPECIFIED PROPHYLACT 01/16/2019 LLUVIA ALMONTE MD Ot Z29.8 ENCOUNTER FOR OTHER SPECIFIED PROPHYLACT 01/22/2019 CARIE PENN STUDENT DEVELOPMENT COORDINATOR Ot I25.10 ATHSCL HEART DISEASE OF [place] CORONARY 01/22/2019 CARIE PENN STUDENT DEVELOPMENT COORDINATOR Ot I34.0 NONRHEUMATIC MITRAL (VALVE) INSUFFICIENC 01/22/2019 CARIE PENN STUDENT DEVELOPMENT COORDINATOR Ot R06.09 OTHER FORMS OF DYSPNEA 02/18/2019 LLUVIA ALMONTE MD Ot Z29.8 ENCOUNTER FOR OTHER SPECIFIED PROPHYLACT 03/12/2019 KADE GAO FACC, DANNIELLE FACP CCDS Ot 397.0 TRICUSPID VALVE DISEASE 03/12/2019 KADE GAO FACC, DANNIELLE FACP CCDS Ot 414.00 CORON ATHEROSCLER NOS TYPE VESSEL, NATIV 03/12/2019 DANNIELLE BRAUN MD, FACC FACP CCDS Ot 414.8 CHR ISCHEMIC HRT DIS NEC 03/12/2019 DANNIELLE BRAUN MD, FACC FACP CCDS Ot 424.0 MITRAL VALVE DISORDER 03/12/2019 DANNIELLE BRAUN MD, FACC FACP CCDS Ot 427.41 VENTRICULAR FIBRILLATION 03/12/2019 DANNIELLE BRAUN MD, FACC FACP CCDS Ot 780.79 OTH MALAISE FATIGUE 03/12/2019 KADE SONGC, ALI FACP CCDS Ot V45.02 AUTO IMPLANTABLE CARDIAC DEFIBRILLATOR I 03/12/2019 KADE GAO FACC, ALI FACP CCDS Ot I25.10 ATHSCL HEART DISEASE OF [place] CORONARY 03/12/2019 KADE GAO FACC, ALI FACP CCDS Ot I25.5 ISCHEMIC CARDIOMYOPATHY 03/12/2019 GRECIA FOSTER Liss FINANCIAL SERVICES CONSULTANT Ot N43.3 HYDROCELE, UNSPECIFIED 03/12/2019 GRECIA FOSTER Liss FINANCIAL SERVICES CONSULTANT Ot N45.1 EPIDIDYMITIS 03/12/2019 KADE GAO FACC, ALI FACP CCDS Ot G47.30 SLEEP APNEA, UNSPECIFIED 03/12/2019 KADE SONGC, ALI FACP CCDS Ot I25.10 ATHSCL HEART DISEASE OF [place] CORONARY 03/12/2019 KADE GAO FACC, ALI FACP CCDS Ot I25.5 ISCHEMIC CARDIOMYOPATHY 03/12/2019 KADE SONGC, ALI FACP CCDS Ot I65.23 OCCLUSION AND STENOSIS [place] 03/12/2019 KADE SONGC, ALI FACP CCDS Ot R53.1 WEAKNESS 03/12/2019 KADE SONGC, ALI FACP CCDS Ot Z95.810 PRESENCE OF AUTOMATIC (IMPLANTABLE) CARD 03/12/2019 KADE GAO FACC, ALI FACP CCDS Ot I25.10 ATHSCL HEART DISEASE OF [place] CORONARY 03/12/2019 KADE SONG, ALI FACP CCDS Ot I25.5 ISCHEMIC CARDIOMYOPATHY 03/12/2019 KADE SONGC, ALI FACP CCDS Ot I65.23 OCCLUSION AND STENOSIS OF [place] 03/12/2019 KADE SONGC, ALI FACP CCDS Ot I70.0 ATHEROSCLEROSIS OF [place] 03/12/2019 KADE SONGC, ALI FACP CCDS Ot I73.9 PERIPHERAL VASCULAR DISEASE, UNSPECIFIED 03/12/2019 KADE SONGC, ALI FACP CCDS Ot 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 03/12/2019 KADE GAO FACC, ALI FACP CCDS Ot Z95.810 PRESENCE OF AUTOMATIC (IMPLANTABLE) CARD 03/12/2019 RONAK JOY DO Ot I63.9 CEREBRAL INFARCTION, UNSPECIFIED 03/12/2019 CARIE PENN STUDENT DEVELOPMENT COORDINATOR Ot I25.10 ATHSCL HEART DISEASE OF [place] CORONARY 03/12/2019 CARIE PENN STUDENT DEVELOPMENT COORDINATOR Ot I34.0 NONRHEUMATIC MITRAL (VALVE) INSUFFICIENC 03/12/2019 CARIE PENN STUDENT DEVELOPMENT COORDINATOR Ot R06.09 OTHER FORMS OF DYSPNEA 03/18/2019 JEFFERY AYERS MD Ot F32.9 MAJOR DEPRESSIVE DISORDER, SINGLE EPISOD 03/18/2019 JEFFERY AYERS MD Ot G40.909 EPILEPSY, UNSP, NOT INTRACTABLE, WITHOUT 03/18/2019 JEFFERY AYERS MD Ot I10 ESSENTIAL (PRIMARY) HYPERTENSION 03/18/2019 JEFFERY AYERS MD Ot J44.9 CHRONIC OBSTRUCTIVE PULMONARY DISEASE, U 03/18/2019 JEFFERY AYERS MD Ot R40.2142 COMA SCALE, EYES OPEN, SPONTANEOUS, EMR 03/18/2019 JEFFERY AYERS MD Ot R40.2252 COMA SCALE, BEST VERBAL RESPONSE, ORIENT 03/18/2019 JEFFERY AYERS MD Ot R40.2362 COMA SCALE, BEST MOTOR RESPONSE, OBEYS C 03/18/2019 JEFFERY AYERS MD Ot S01.81XA LACERATION W/O FOREIGN BODY OF OTH PART 03/18/2019 JEFFERY AYERS MD Ot S61.412A LACERATION WITHOUT FOREIGN BODY OF LEFT 03/18/2019 JEFFERY AYERS MD Ot W01.198A FALL SAME LEV FROM SLIP/TRIP W STRIKE AG 03/18/2019 JEFFERY AYERS MD Ot Y92.003 [facility] NON-INSTITUT (PRIVATE) R 03/18/2019 JEFFERY AYERS MD Ot Z79.82 DIRECTOR MEDICAL AFFAIRS (CURRENT) USE OF ASPIRIN 03/18/2019 JEFFERY AYERS MD Ot Z82.49 FAMILY HX OF ISCHEM HEART DIS AND OTH DI 03/18/2019 JEFFERY AYERS MD Ot Z86.73 PRSNL HX OF TIA (TIA), AND CEREB INFRC W 03/18/2019 JEFFERY AYERS MD Ot Z88.8 ALLERGY STATUS TO [facility] DRUG/MEDS/BIOL SUB 03/18/2019 JEFFERY AYERS MD Ot Z95.1 PRESENCE OF AORTOCORONARY BYPASS GRAFT 03/22/2019 LLUVIA ALMONTE MD Ot Z29.8 ENCOUNTER FOR OTHER SPECIFIED PROPHYLACT 03/23/2019 LLUVIA ALMONTE MD Ot Z29.8 ENCOUNTER FOR OTHER SPECIFIED PROPHYLACT Procedures Code Description Performed By Performed On 33.24 ENDOSCOPIC BRONCHIAL BX 10/19/2009 96.04 10/03/2012 96.71 10/03/2012 Results Test Result Range Complete blood count (CBC) with automated white blood cell (WBC) differential - 03/13/19 00:12 Blood leukocytes automated count (number/volume) 7.0 10*3/uL 4.3-11.0 Blood erythrocytes automated count (number/volume) 4.29 10*6/uL 4.35-5.85 Venous blood hemoglobin measurement (mass/volume) 13.6 g/dL 13.3-17.7 Blood hematocrit (volume fraction) 40 % 40-54 Automated erythrocyte mean corpuscular volume 93 [foz_us] 80-99 Automated erythrocyte mean corpuscular hemoglobin (mass per erythrocyte) 32 pg 25-34 Automated erythrocyte mean corpuscular hemoglobin concentration measurement (mass/volume) 34 g/dL 32-36 Automated erythrocyte distribution width ratio 13.7 % 10.0- 14.5 Automated blood platelet count (count/volume) 178 10*3/uL 130-400 Automated blood platelet mean volume measurement 10.2 [foz_us] 7.4-10.4 Automated blood neutrophils/100 leukocytes 66 % 42-75 Automated blood lymphocytes/100 leukocytes 18 % 12-44 Blood monocytes/100 leukocytes 14 % 0-12 Automated blood eosinophils/100 leukocytes 2 % 0-10 Automated blood basophils/100 leukocytes 0 % 0-10 Blood neutrophils automated count (number/volume) 4.6 10*3 1.8-7.8 Blood lymphocytes automated count (number/volume) 1.2 10*3 1.0-4.0 Blood monocytes automated count (number/volume) 1.0 10*3 0.0- 1.0 Automated eosinophil count 0.2 10*3/uL 0.0-0.3 Automated blood basophil count (count/volume) 0.0 10*3/uL 0.0-0.1 Comprehensive metabolic panel - 03/13/19 00:12 Serum or plasma sodium measurement (moles/volume) 136 mmol/L 135-145 Serum or plasma potassium measurement (moles/volume) 4.2 mmol/L 3.6-5.0 Serum or plasma chloride measurement (moles/volume) 102 mmol/L 98-107 Carbon dioxide 20 mmol/L 21-32 Serum or plasma anion gap determination (moles/volume) 14 mmol/L 5-14 Serum or plasma urea nitrogen measurement (mass/volume) 23 mg/dL 7-18 Serum or plasma creatinine measurement (mass/volume) 1.13 mg/dL 0.60-1.30 Serum or plasma urea nitrogen/creatinine mass ratio 20 NRG Serum or plasma creatinine measurement with calculation of estimated glomerular filtration rate > NRG Serum or plasma glucose measurement (mass/volume) 128 mg/dL 70-105 Serum or plasma calcium measurement (mass/volume) 9.3 mg/dL 8.5-10.1 Serum or plasma total bilirubin measurement (mass/volume) 0.3 mg/dL 0.1-1.0 Serum or plasma alkaline phosphatase measurement (enzymatic activity/volume) 158 U/L 40-136 Serum or plasma aspartate aminotransferase measurement (enzymatic activity/volume) 22 U/L 5-34 Serum or plasma alanine aminotransferase measurement (enzymatic activity/volume) 27 U/L 0-55 Serum or plasma protein measurement (mass/volume) 8.4 g/dL 6.4-8.2 Serum or plasma albumin measurement (mass/volume) 3.9 g/dL 3.2-4.5 CALCIUM CORRECTED 9.4 mg/dL 8.5-10.1 Magnesium - 03/13/19 00:12 Magnesium 2.3 mg/dL 1.8-2.4 Encounters ACCT No. Visit Date/Time Discharge Status Pt. Type Provider Facility Loc./Unit Complaint [id number] 03/20/2019 13:22:00 03/22/2019 00:01:00 DIS Outpatient LLUVIA ALMONTE MD Via [facility] CR3 CARDIAC REHAB PHASE 3 [id number] 03/12/2019 23:53:00 03/13/2019 02:50:00 DIS Outpatient JEFFERY AYERS MD [facility] ER FALL, RT EYE INJURY [id number] 02/18/2019 15:10:00 02/18/2019 00:01:00 DIS Outpatient LLUVIA ALMONTE MD [facility] CR3 CARDIAC REHAB PHASE 3 [id number] 01/20/2019 11:46:00 01/20/2019 23:59:59 CLS Outpatient CARIE PENN [facility] CARD CAD,MORAN [id number] 01/16/2019 14:56:00 01/16/2019 00:01:00 DIS Outpatient LLUVIA ALMONTE MD Via [place] [address] CARDIAC REHAB PHASE 3 [id number] 12/12/2018 14:52:00 12/14/2018 00:01:00 DIS Outpatient LLUVIA ALMONTE MD [facility] [place] [address] CARDIAC REHAB PHASE 3 [id number] 11/12/2018 15:34:00 11/12/2018 00:01:00 DIS Outpatient LLUVIA ALMONTE MD [facility] [place] [address] CARDIAC REHAB PHASE 3 [id number] 10/10/2018 15:35:00 10/12/2018 00:01:00 DIS Outpatient LLUVIA ALMONTE MD [facility] [place] [address] CARDIAC REHAB PHASE 3 [id number] 09/11/2018 12:55:00 10/01/2018 12:20:00 DIS Outpatient ELSA ROBLEDO MD [facility] REHAB BALANCE [id number] 09/10/2018 14:49:00 09/10/2018 00:01:00 DIS Outpatient LLUVIA ALMONTE MD [facility] [place] [address] CARDIAC REHAB PHASE 3 [id number] 09/01/2018 14:03:00 09/03/2018 10:27:00 DIS Outpatient ELSA ROBLEDO MD [facility] REHAB BALANCE [id number] 08/06/2018 14:42:00 08/10/2018 00:01:00 DIS Outpatient LLUVIA ALMONTE MD [facility] [place] [address] CARDIAC REHAB PHASE 3 [id number] 07/09/2018 13:45:00 07/09/2018 00:01:00 DIS Outpatient LLUVIA ALMONTE MD [facility] [place] [address] CARDIAC REHAB PHASE 3 [id number] 06/06/2018 14:08:00 06/08/2018 00:01:00 DIS Outpatient LLUVIA ALMONTE MD [facility] [place] [address] CARDIAC REHAB PHASE 3 [id number] 06/06/2018 12:56:00 06/06/2018 14:34:00 DIS Outpatient RONAK JOY DO [facility] REHAB UNSTEADINESS ON FEET [id number] 05/30/2018 12:54:00 06/01/2018 00:01:00 DIS [facility] [id number] 05/07/2018 16:05:00 05/07/2018 00:01:00 DIS Outpatient LLUVIA ALMONTE MD Via [place] [address] CARDIAC REHAB PHASE 3 [id number] 04/24/2018 09:02:00 04/24/2018 23:59:59 CLS Outpatient RONAK JOY DO [facility] RAD CEREBARAL INFARCTION,UNSPECIFIED [id number] 03/31/2018 14:08:00 03/31/2018 23:59:59 CLS Outpatient LLUVIA ALMONTE MD [facility] [place] [address] CARDIAC REHAB PHASE 3 [id number] 03/03/2018 16:35:00 03/05/2018 00:01:00 DIS Outpatient LLUVIA ALMONTE MD [facility] [place] [address] CARDIAC REHAB PHASE 3 [id number] 01/31/2018 15:23:00 02/02/2018 00:01:00 DIS Outpatient LLUVIA ALMONTE MD [facility] [place] [address] CARDIAC REHAB PHASE 3 [id number] 01/01/2018 15:16:00 01/01/2018 00:01:00 DIS Outpatient LLUVIA ALMONTE MD Via [place] [address] CARDIAC REHAB PHASE 3 [id number] 10/07/2017 13:02:00 10/07/2017 13:47:00 DIS Out[facility]Z [facility]EN [facility]ICIT [id number] 07/23/2017 14:00:00 07/23/2017 14:41:00 DIS Outpatient EL[facility]PANDO [facility] AB[facility];LUMBAR SPINAL STENOSIS [id number] 05/27/2017 13:27:00 06/01/2017 00:01:00 DIS Outpatient ELSA VILLALPANDO DO Via [facility] REHAB GAIT ABNORMALITY;LUMBAR SPINAL STENOSIS [id number] 04/11/2017 14:35:00 04/14/2017 00:01:00 DIS Outpatient ELSA VILLALPANDO DO Liss [facility] REHAB GAIT ABNORMALITY;LUMBAR SPINAL STENOSIS [id number] 01/29/2017 12:41:00 01/29/2017 23:59:59 CLS Outpatient KADE GAO FACC, DANNIELLE CARDENAS CCDS Via [facility] RAD I25.10,I73.9,I65.23 [id number] 08/15/2016 07:32:00 08/15/2016 23:59:59 CLS Outpatient KADE GAO FACC, DANNIELLE CARDENAS CCDS [facility] CARD WEAKNESS,CAD [id number] 07/19/2016 13:39:00 08/14/2016 09:17:00 DIS Outpatient RINKU MELENDEZ [facility] REHAB SCIATICA [id number] 01/06/2016 11:34:00 01/06/2016 23:59:59 CLS Outpatient GRECIA FOSTER FINANCIAL SERVICES CONSULTANT [facility] RAD LT TESTICULAR PAIN RADAITING TO LT GROIN [id number] 12/29/2015 07:28:00 12/29/2015 23:59:59 CLS Outpatient DANNIELLE BRAUN MD, FACC, FACP CCDS [facility] CARD CAD,ISCHEMIC CARDIOMYOPATHY [id number] 11/22/2015 13:05:00 11/22/2015 15:33:00 DIS Emergency MARY HERRING DO Via [facility] ER FALL, NOSE INJ, LEFT SHOULDER PAIN [id number] 05/10/2015 11:01:00 05/10/2015 18:00:00 DIS Outpatient DANNIELLE BRAUN MD, FACC, FACP CCDS [facility] CATH PULSE GENERATOR CHANGE [id number] 03/21/2015 00:10:00 03/21/2015 23:59:59 CLS Preadmit RONAK JOY DO Via [facility] REHAB [id number] 02/24/2015 08:27:00 03/20/2015 00:01:00 DIS Outpatient RONAK JOY DO [facility] REHAB L ARM WEAKNESS [id number] 09/09/2014 10:22:00 10/07/2014 11:19:00 DIS Outpatient JOY DO RONAK [facility] REHAB HAND THERAPY AFTER L SHOULDER FRACTURE [id number] 09/22/2014 12:22:00 09/28/2014 14:35:00 DIS Inpatient JOY DO RONAK [facility] 4TH SWB--SEPSIS [id number] 09/09/2014 10:31:00 09/28/2014 14:35:00 DIS Outpatient FRANCOIS DO PEARL F [facility] REHAB L HUMERUS FX [id number] 09/19/2014 23:30:00 09/22/2014 12:15:00 DIS Inpatient JOY DO RONAK [facility] ICU SEPSIS [id number] 08/16/2014 17:16:00 08/16/2014 19:09:00 DIS Emergency HERNAN THIBODEAUX [facility] ER FALL,HEAD LAC [id number] 05/05/2014 11:50:00 05/25/2014 16:03:00 DIS Inpatient BRIANA GAO, JOHANNA Lopez [facility] IRF FALL, [id number] 05/03/2014 22:50:00 05/05/2014 11:50:00 DIS Inpatient JOYTAE ESTRADA RONAK [facility] CSD NEW SYNCOPE,LEFT PROXIMAL HUMERUS FX,CARDIAC DYSRH [id number] 04/29/2014 07:46:00 04/29/2014 23:59:59 CLS Outpatient KADE GAO FACC, DANNIELLE CARDENAS CCDS [facility] CARD WEAKNESS, ISCHEMIC CARDIOMYOPATHY [id number] 02/22/2014 16:03:00 02/22/2014 23:59:59 CLS Outpatient [id number] 07/06/2013 10:48:00 07/06/2013 23:59:59 CLS Outpatient JOY DO RONAK [facility] RAD FALL,HIP,RIB PAIN,HEMATURIA [id number] 03/23/2019 16:23:00 ACT Outpatient LLUVIA ALMONTE MD [facility] CR3 CARDIAC REHAB PHASE 3 [id number] 09/07/2014 14:10:00 Document Registration [id number] 09/07/2014 14:09:00 Document Registration [id number] 11/20/2012 13:16:00 Document Registration [id number] 10/09/2012 14:21:00 Document Registration [id number] 10/03/2012 07:43:00 Document Registration [id number] 06/11/2012 13:01:00 Document Registration [id number] 12/27/2011 08:04:00 Document Registration [id number] 10/14/2011 11:59:00 Document Registration [id number] 04/25/2011 13:00:00 Document Registration [id number] 01/01/2011 15:40:00 Document Registration [id number] 10/12/2010 05:41:00 Document Registration [id number] 10/09/2010 07:46:00 Document Registration [id number] 09/01/2010 20:38:00 Document Registration [id number] 04/03/2010 12:01:00 Document Registration [id number] 03/07/2010 09:45:00 Document Registration [id number] 12/27/2009 10:52:00 Document Registration [id number] 12/26/2009 09:02:00 Document Registration [id number] 11/01/2009 08:11:00 Document Registration [id number] 10/27/2009 15:46:00 Document Registration [id number] 10/27/2009 15:44:00 Document Registration [id number] 08/30/2009 12:29:00 Document Registration [id number] 07/15/2009 09:00:00 Document Registration [id number] 06/16/2009 14:36:00 Document Registration [id number] 05/13/2009 10:26:00 Document Registration
== END 2019-03-25 15:26 | disposition home or self-care (01) ==
LOC: EDUNIT# 14:56 → ER 14:57
DX: S01.80XD Unspecified open wound of other part of head, subsequent encounter (principal); X58.XXXD Exposure to other specified factors, subsequent encounter

== ENCOUNTER 2019-03-28 10:21 | Emergency (ER) | payer MEDICARE, OTHER ==
[~2019-03-28] VITALS: Ht 182.9 cm; Wt 84.8 kg
[2019-03-28 10:24] VITALS: BP 137/69
--- NOTE | 2019-03-28 11:31 | ED Integumentary General ---
General Chief Complaint: Skin/Wound Problems Stated Complaint: L ARM INJURY Nursing Triage Note: States he was going up the steps to his deck and stubbed his toe on the last step and fell against the railing. Has large skin tear on the top of forearm. Dressing removed- bloody drainage noted coming through dressing. One skin tear does have skin covering the wound. The large one has the skin pushed back and the wound bed has sl bloody drainage noted. Sterile water gauze placed over sites to moisten Source: patient Exam Limitations: no limitations History of Present Illness Date Seen by Provider: Mar 28, 2019 Time Seen by Provider: 11:31 Initial Comments 78 yr. old male patient presents for c/o skin tears to the left forearm after falling against the deck railing yesterday. Patient report continued bleeding through the dressing yesterday. Patient denies hitting his head, loss of consciousness, neck pain, back pain, or falling to the ground. Location Injury Occurred: outside home Timing/Duration: yesterday Location: extremities (left forearm) Modifying Factors: worse with other (no improvement with compression) Allergies and Home Medications Allergies Coded Allergies: amiodarone (Verified Allergy, Severe, 03/13/19) lorazepam (Verified Allergy, Unknown, 03/13/19) scopolamine (Verified Allergy, Unknown, 03/13/19) Home Medications Acetaminophen 325 Mg Tablet, 650 MG PO Q4H PRN for PAIN Prescribed by: DANNIELLE BRAUN on 05/10/15 1424 Albuterol Sulfate 2.5 Mg/3 Ml Nebu, 2.5 MG INH RTBID Prescribed by: RONAK JOY on 05/05/14 115 Aspirin 81 Mg Tabec, 81 MG PO DAILY Prescribed by: RONAK JOY on 05/05/14 115 Cefuroxime Axetil 500 Mg Tablet, 500 MG PO BID Prescribed by: DANNIELLE BRAUN on 05/10/15 1424 Cholecalciferol 1,000 Unit Tab, 2,000 UNIT PO DAILY Prescribed by: RONAK JOY on 05/05/14 1153 Digoxin 0.25 Mg Tab, 0.25 MG PO DAILY Prescribed by: RONAK JOY on 05/05/14 1153 Furosemide 40 Mg Tab, 40 MG PO DAILY Prescribed by: RONAK JOY on 05/05/14 1153 Guaifenesin 600 Mg Tab, 600 MG PO BID PRN for COUGH Prescribed by: RONAK JOY on 05/05/141152 Levothyroxine Sodium 75 Mcg Tablet, 75 MCG PO DAILY, (Reported) Menthol/Lanolin/Calamine/Znox 113 Gm Oint, 0 GM EXT QID Prescribed by: RONAK JOY on 05/05/141152 Metoprolol Succinate 25 Mg Tab, 50 MG PO DAILY Prescribed by: RONAK JOY on 05/05/141152 Montelukast Sodium 10 Mg Tablet, 10 MG PO HS, (Reported) Phenobarbital 64.8 Mg Tablet, 129.6 MG PO HS, (Reported) Phenytoin Sodium 100 Mg Cap, 300 MG PO WITH EVENING MEAL, (Reported) TAKES 3 (100MG) CAPSULES Phenytoin Sodium Extended 100 Mg Capsule, 200 MG PO DAILY, (Reported) TAKES 2 (100MG) CAPSULES EVERY MORNING Simvastatin 10 Mg Tablet, 10 MG PO HS, (Reported) [Budesonide/Formoterol Fumarate] 1 PUFF PUFF, 2 PUFF IH RTBID Prescribed by: RONAK JOY on 05/05/141152 [Chlorhexidine Gluconate] 15 ML SOLN, 5 ML PO BID Prescribed by: RONAK JOY on 05/05/141152 [Lisinopril] 5 MG TABLET, 5 MG PO DAILY@0900 Prescribed by: RONAK JOY on 05/05/141152 [Polyethylene Glycol] 17 GM PACK, 17 GM PO DAILY Prescribed by: RONAK JOY on 05/05/141152 Patient Home Medication List Home Medication List Reviewed: Yes Review of Systems Review of Systems Constitutional: No chills, No dizziness, No fever, No malaise Respiratory: no symptoms reported Cardiovascular: no symptoms reported Gastrointestinal: no symptoms reported Musculoskeletal: No back pain, No joint pain, No joint swelling, No muscle pain, No neck pain Skin: see HPI Psychiatric/Neurological: Denies Headache, Denies Numbness, Denies Paresthesia, Denies Tingling, Denies Weakness All Other Systems Reviewed Negative Unless Noted: Yes (Negative excepted noted.) Past Tstnaxe-Wghfew-Hzovmk Hx Past Med/Social Hx: Reviewed Nursing Past Med/Soc Hx Patient Social History Alcohol Use: Denies Use Recreational Drug Use: No Smoking Status: Former Smoker Former Smoker, Quit: Oct 14, 1989 2nd Hand Smoke Exposure: No Recent Foreign Travel: No Contact w/Someone Who Travel: No Recent Infectious Disease Expo: No Recent Hopitalizations: Yes Physical Abuse: No Sexual Abuse: No Mistreated: No Fear: No Immunizations Up To Date Tetanus Booster (TDap): Less than 5yrs (August 2014) PED Vaccines UTD: Yes Date of Pneumonia Vaccine: January 20, 2015 Date of Influenza Vaccine: May 10, 2015 Seasonal Allergies Seasonal Allergies: No Past Medical History Surgeries: Yes (hernia, oral, brain biopsy ) CABG, Eye Surgery Respiratory: Yes COPD Cardiac: Yes (CATH) Hypertension Neurological: Yes (Brain biopsy 1990) Seizure Disorder, Stroke Reproductive Disorders: No Sexually Transmitted Disease: No Genitourinary: No Gastrointestinal: Yes Abdominal Hernia 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) Endocrine: No HEENT: No Hearing Impairment: Hard of Hearing Cancer: Yes Skin Psychosocial: Yes Depression Integumentary: No Blood Disorders: No Adverse Reaction/Blood Tranf: No Family Medical History Reviewed Nursing Family Hx Arthritis 19 MOTHER, Cardiovascular disease G8 BROTHER, G8 BROTHER, , Age:67 G8 BROTHER G8 SISTER Cataracts G8 BROTHER, , Age:67 G8 BROTHER Completed stroke 19 MOTHER, Deafness or hearing loss G8 BROTHER G8 BROTHER Diabetes mellitus G8 SISTER Headache disorder 19 FATHER, 19 MOTHER, G8 BROTHER, G8 BROTHER, , Age:67 G8 BROTHER G8 BROTHER G8 SISTER Hypercholesterolemia G8 BROTHER, , Age:67 G8 BROTHER G8 BROTHER G8 SISTER Hypertension 19 MOTHER, G8 BROTHER G8 SISTER Myocardial infarction G8 BROTHER, , Age:67 G8 BROTHER G8 SISTER Respiratory disorder G8 BROTHER, Thyroid disease G8 SISTER No Family History of: AIDS Abdominal aortic aneurysm [place]'s disease Alcoholism Alzheimer's disease Aphasia Asthma Cancer of mouth Colon cancer Congenital disease Congenital heart disease Cystic fibrosis Dementia Drug abuse Dysphasia Fibrocystic disease of breast Gastroenteritis Glaucoma Infertility Kidney disease Neoplasm Not obtainable due to adoption Osteoporosis Parkinson's disease Prostate cancer Psychosocial problem Seizure disorder Severe allergy Tuberculosis Visual disorder No Pertinent Family Hx Physical Exam Vital Signs Vital Signs - First Documented 03/28/19 10:24 Temp 98.0 Pulse 71 Resp 16 B/P (MAP) 137/69 (91) Pulse Ox 98 Capillary Refill : Less Than 3 Seconds General Appearance: WD/WN, no apparent distress HEENT: PERRL/EOMI, pharynx normal Neck: supple, normal inspection Cardiovascular: normal peripheral pulses, regular rate, rhythm, no edema, no gallop, no murmur Respiratory: lungs clear, normal breath sounds, no respiratory distress, no accessory muscle use Extremities: normal range of motion, non-tender, no pedal edema, normal capillary refill, other (multiple skin tears to the left forearm without active bleeding. no evidence of erythema or warmth. multiple areas of ecchymosis to the BUE in various stages of healing.) Neurologic/Psychiatric: person investigator II-XII nml as tested, no motor/sensory deficits, alert, normal mood/affect, oriented x 3 Skin: normal color, warm/dry, other (multiple skin tears to the left forearm without active bleeding. no evidence of erythema or warmth. multiple areas of ecchymosis to the BUE in various stages of healing.) Skin Problem Location: upper extremities Skin Problem Character: other (multiple skin tears to the left forearm without active bleeding. no evidence of erythema or warmth. multiple areas of ecchymosis to the BUE in various stages of healing.) Procedures/Interventions Suture Size: 5-0 Progress/Results/Core Measures Results/Orders My Orders Orders - HERNAN ELDER Dipht,Pertuss(Acell),Tet Adult (Boostrix (03/28/19 12:00) Medications Given in ED Current Medications Medications Dose Ordered Sig/Yissel Route Start Time Stop Time Status Last Admin Dose Admin Diphtheria/ Tetanus/Acell Pertussis 0.5 ml ONCE ONCE IM 03/28/19 12:00 03/28/19 12:01 DC 03/28/19 12:15 0.5 ML Vital Signs/I&O 03/28/19 10:24 Temp 98.0 Pulse 71 Resp 16 B/P (MAP) 137/69 (91) Pulse Ox 98 Blood Pressure Mean: 91 Departure Communication (Admissions) patient seen and evaluated. wounds cleansed with chorasept and sterile saline. skin flaps secured with mastisol and steristrips. wounds covered with gauze and an ines wrap. plan for dsch to home. Impression Primary Impression: Skin tear of left forearm without complication Qualified Codes: S51.812A - Laceration without foreign body of left forearm, initial encounter Disposition: HOME, SELF-CARE Condition: Improved Departure-Patient Inst. Decision time for Depature: 12:00 Referrals: RONAK JOY DO (PCP/Family) Primary Care Physician Patient Instructions: Skin Abrasions Add. Discharge Instructions: All discharge instructions reviewed with patient and/or family. Voiced understanding. Continue usual home medications with the exception of aspirin. Hold aspirin for 7 days. Do not remove the dressing for 3 days. Steri-strips will stay on for 10-14 days. Shower with antibacterial soap. Follow-up with Dr. Joy for recheck if needed. Return to the ER for worsened symptoms, redness, fever, drainage, or any other concerns. HERNAN ELDER Mar 28, 2019 11:31
[2019-03-28] MEDS ORDERED: TETANUS,DIPTH,PERTUSS P/F (BOOSTRIX) 0.5 ML VIAL IM ONE (12:00)
== END 2019-03-28 12:24 | disposition home or self-care (01) ==
LOC: EDUNIT# 10:21 → ER 10:22
DX: S51.812A Laceration without foreign body of left forearm, initial encounter (principal); I10 Essential (primary) hypertension; J44.9 Chronic obstructive pulmonary disease, unspecified; G40.909 Epilepsy, unspecified, not intractable, without status epilepticus; F32.9 Major depressive disorder, single episode, unspecified; Z85.828 Personal history of other malignant neoplasm of skin; Z86.73 Personal history of transient ischemic attack (TIA), and cerebral infarction without residual deficits; Z23 Encounter for immunization; Z87.891 Personal history of nicotine dependence; Z95.1 Presence of aortocoronary bypass graft; Z88.8 Allergy status to other drugs, medicaments and biological substances; Z79.82 Long term (current) use of aspirin; Z82.49 Family history of ischemic heart disease and other diseases of the circulatory system; W22.8XXA Striking against or struck by other objects, initial encounter; W10.9XXA Fall (on) (from) unspecified stairs and steps, initial encounter
CPT/HCPCS: 90715; 99282

== ENCOUNTER → 2019-04-13 | Outpatient (CLI) | payer MEDICARE, OTHER | LOC: WOUNDCARE 13:57 | PROVIDERS: ATTEND Surgery | DX: S51.812A Laceration without foreign body of left forearm, initial encounter (principal); I25.2 Old myocardial infarction; I96 Gangrene, not elsewhere classified; Z86.79 Personal history of other diseases of the circulatory system | CPT/HCPCS: 99212 ==

== ENCOUNTER → 2019-04-20 | Outpatient (CLI) | payer MEDICARE | LOC: WOUNDCARE 13:51 | PROVIDERS: ATTEND Surgery | DX: S51.812A Laceration without foreign body of left forearm, initial encounter (principal); I96 Gangrene, not elsewhere classified | CPT/HCPCS: 99212 ==

== ENCOUNTER → 2019-04-22 | Outpatient (RCR) | payer MEDICARE, OTHER | END | disposition home or self-care (01) | LOC: CR3 03-23 16:23 | PROVIDERS: ATTEND Internal Medicine Cardiovascular Disease | DX: Z29.8 Encounter for other specified prophylactic measures (principal) ==

== ENCOUNTER 2019-05-22 14:45 | Outpatient (RCR) | payer MEDICARE | END 2019-05-24 | disposition home or self-care (01) | LOC: CR3 14:45 | PROVIDERS: ATTEND Internal Medicine Cardiovascular Disease | DX: Z29.8 Encounter for other specified prophylactic measures (principal) ==

== ENCOUNTER 2019-05-27 14:00 | Outpatient (RCR) | payer MEDICARE | END 2019-06-26 | disposition home or self-care (01) | LOC: CR3 14:00 | PROVIDERS: ATTEND Internal Medicine Cardiovascular Disease | DX: Z29.8 Encounter for other specified prophylactic measures (principal) ==

== ENCOUNTER → 2019-05-29 | Outpatient (CLI) | payer MEDICARE ==
[2019-05-29 16:01] LABS: HEMOGLOBIN 13.3 G/DL (13.3-17.7); MEAN PLATELET VOLUME 9.7 FL (7.4-10.4); RED CELL DISTRIBUTION WIDTH 13.7 % (10.0-14.5)
[2019-05-29 16:07] LABS: BILIRUBIN,URINE NEGATIVE (NEGATIVE); CLARITY,URINE CLEAR; COLOR,URINE YELLOW; GLUCOSE, URINE (UA) NEGATIVE (NEGATIVE); KETONES,URINE NEGATIVE (NEGATIVE); LEUKOCYTE ESTERASE ,URINE NEGATIVE (NEGATIVE); NITRITE,URINE NEGATIVE (NEGATIVE); PH,URINE 6.5 (5-9); PROTEIN,URINE NEGATIVE (NEGATIVE); UROBILINOGEN,URINE NORMAL (NORMAL)
[2019-05-29 16:14] LABS: BACTERIA,URINE TRACE /HPF; RBC,URINE RARE /HPF; SQUAMOUS EPITHELIAL CELL,UR RARE /HPF
[2019-05-29 16:15] LABS: HYALINE CASTS, URINE RARE /LPF
[2019-05-29 16:18] LABS: ALANINE AMINOTRANSFERASE 21 U/L (0-55); ALKALINE PHOSPHATASE 153 U/L (40-136); BILIRUBIN,TOTAL 0.4 MG/DL (0.1-1.0); BUN/CREATININE RATIO 26; CALCIUM 9.1 MG/DL (8.5-10.1); CARBON DIOXIDE 29 MMOL/L (21-32); CHLORIDE 100 MMOL/L (98-107); CREATININE SERUM 0.87 MG/DL (0.60-1.30); GFR ESTIMATED > 60; GLUCOSE 91 MG/DL (70-105); POTASSIUM 4.7 MMOL/L (3.6-5.0); SODIUM 136 MMOL/L (135-145); TOTAL PROTEIN 8.2 GM/DL (6.4-8.2)
== END ==
LOC: LAB 15:47
PROVIDERS: ATTEND Internal Medicine
DX: R53.1 Weakness (principal)
CPT/HCPCS: 36415; 80053; 81000; 84443; 85027

== ENCOUNTER → 2019-06-05 | Outpatient (CLI) | payer MEDICARE ==
--- NOTE | 2019-06-05 14:05 | Diagnostic Imaging Report ---
PROCEDURE: CT head without contrast. TECHNIQUE: Multiple contiguous axial images were obtained through the brain without the use of intravenous contrast. Auto Exposure Controls were utilized during the CT exam to meet ALARA standards for radiation dose reduction. DATE: June 05, 2019. COMPARISON: CT head, maxillofacial area, and cervical spine March 13, 2019. CT head October 03, 2012. CT head February 25, 2007 INDICATION: 79-year-old male, unable to walk. Instability of the legs. FINDINGS: There are very large coarse calcifications in the right and left miles radiata with adjacent streak artifact. There does appear to be adjacent abnormal low attenuation. This appearance is essentially unchanged dating back to at least February 25, 2007. There is proportional prominence of the ventricles and CSF spaces compatible with mild cerebral volume loss. There is no evidence of acute intracranial hemorrhage. There is no mass effect or midline shift. There is no abnormal extra-axial fluid collection. The visualized portions of the paranasal sinuses, mastoid air cells, and middle ears are well-aerated bilaterally. IMPRESSION: 1. Large bilateral coarse calcifications in the miles radiata with adjacent low attenuation with stable appearance since at least February 25, 2007. These are consistent with benign etiology. 2. Mild cerebral volume loss and changes of chronic small vessel ischemic disease. 3. No identified interval acute intracranial abnormality. Dictated by: Dictated on workstation # [id number]
== END ==
LOC: RAD 12:47
PROVIDERS: ATTEND Internal Medicine
DX: I63.9 Cerebral infarction, unspecified (principal); G93.89 Other specified disorders of brain; I67.82 Cerebral ischemia
CPT/HCPCS: 70450

== ENCOUNTER 2019-06-17 10:12 | Outpatient (RCR) | payer MEDICARE | END 2019-08-11 | disposition home or self-care (01) | PROVIDERS: ATTEND Internal Medicine | DX: R26.81 Unsteadiness on feet (principal); Z91.81 History of falling ==

== ENCOUNTER → 2019-10-16 | Outpatient (RCR) | payer MEDICARE ==
[~2019-10-16] MED LIST changes: +SIMV10TA26 PO; -SIMV10TA3 PO
== END | disposition home or self-care (01) ==
LOC: CR3 09-16 15:00
PROVIDERS: ATTEND Internal Medicine Cardiovascular Disease
DX: Z29.8 Encounter for other specified prophylactic measures (principal)

== ENCOUNTER 2019-10-29 10:21 | Outpatient (RCR) | payer MEDICARE ==
[2019-11-03] MEDS ORDERED: ASPI-983 PO (11:09)
[2019-11-03] MEDS ORDERED: PHEN100C11 PO ×2 (11:24→11:25)
[2019-11-03] MEDS ORDERED: CYAN250010 PO (11:25)
[2019-11-03] MEDS ORDERED: DIGO250T3 PO (11:25)
[2019-11-03] MEDS ORDERED: PYRI25TA3 PO (11:25)
[2019-11-03] MEDS ORDERED: PHEN64.8 PO (11:25)
[2019-11-03] MEDS ORDERED: METR45GE9 TD (11:25)
[2019-11-03] MEDS ORDERED: CLOB15CR2 TOP (11:25)
[2019-11-03] MEDS ORDERED: METO50TA7 PO (11:25)
[2019-11-03] MEDS ORDERED: POLY17PO6 PO (11:25)
[2019-11-03] MEDS ORDERED: LISI-556 PO (11:25)
[2019-11-03] MEDS ORDERED: NFCHLORHGL MT (11:25)
[2019-11-03] MEDS ORDERED: BIMA2.5D4 OD (11:25)
[2019-11-03] MEDS ORDERED: MONT10TA26 PO (11:25)
[2019-11-03] MEDS ORDERED: GUAI600T43 PO (11:25)
[2019-11-03] MEDS ORDERED: CHOL2000 PO (11:25)
[2019-11-03] MEDS ORDERED: FURO40TA4 PO (11:25)
[2019-11-03] MEDS ORDERED: BUDE10.2 IH (11:25)
[2019-11-03] MEDS ORDERED: ALB0.5V INH (11:33)
== END 2019-11-12 | disposition home or self-care (01) ==
PROVIDERS: ATTEND Internal Medicine
DX: R53.1 Weakness (principal); R27.9 Unspecified lack of coordination

== ENCOUNTER 2019-10-30 13:34 | Outpatient (RCR) | payer MEDICARE ==
[2019-11-03] MEDS ORDERED: ASPI-983 PO (11:09)
[2019-11-03] MEDS ORDERED: PHEN100C11 PO ×2 (11:24→11:25)
[2019-11-03] MEDS ORDERED: CLOB15CR2 TOP (11:25)
[2019-11-03] MEDS ORDERED: FURO40TA4 PO (11:25)
[2019-11-03] MEDS ORDERED: DIGO250T3 PO (11:25)
[2019-11-03] MEDS ORDERED: GUAI600T43 PO (11:25)
[2019-11-03] MEDS ORDERED: BIMA2.5D4 OD (11:25)
[2019-11-03] MEDS ORDERED: METO50TA7 PO (11:25)
[2019-11-03] MEDS ORDERED: CHOL2000 PO (11:25)
[2019-11-03] MEDS ORDERED: LISI-556 PO (11:25)
[2019-11-03] MEDS ORDERED: NFCHLORHGL MT (11:25)
[2019-11-03] MEDS ORDERED: PHEN64.8 PO (11:25)
[2019-11-03] MEDS ORDERED: BUDE10.2 IH (11:25)
[2019-11-03] MEDS ORDERED: CYAN250010 PO (11:25)
[2019-11-03] MEDS ORDERED: POLY17PO6 PO (11:25)
[2019-11-03] MEDS ORDERED: PYRI25TA3 PO (11:25)
[2019-11-03] MEDS ORDERED: MONT10TA26 PO (11:25)
[2019-11-03] MEDS ORDERED: METR45GE9 TD (11:25)
[2019-11-03] MEDS ORDERED: ALB0.5V INH (11:33)
[2019-11-16] MEDS ORDERED: PRED10TA22 PO (11:22)
[2019-11-16] MEDS ORDERED: PHEN64.8 PO (13:52)
== END 2019-11-18 | disposition home or self-care (01) ==
LOC: CR3 13:34
PROVIDERS: ATTEND Internal Medicine Cardiovascular Disease
DX: Z29.8 Encounter for other specified prophylactic measures (principal)

== ENCOUNTER 2019-11-02 15:38 | Inpatient (IN) | payer MEDICARE ==
[~2019-11-02] VITALS: Ht 182.9 cm; Wt 86.4 kg
--- NOTE | 2019-11-02 16:44 | ED Cough/URI ---
General Chief Complaint: Respiratory Problems Stated Complaint: SOA Nursing Triage Note: was at home when he started gasping for air, did an extra breathing treatment which did not help, has hx of COPD and Pneumonia, pt states that symptoms have resolved at this time Sepsis Screen: No Definite Risk Source: patient Exam Limitations: no limitations History of Present Illness Date Seen by Provider: Nov 02, 2019 Time Seen by Provider: 16:41 Initial Comments To ER with reports of transient shortness of breath. He does have COPD and wears oxygen at night at home. This morning he awakened, took the oxygen off and became short of breath more so than usual. Oxygen saturation was found to be 95%, he was given a breathing treatment, it then dropped to 80%. They decided to come to the emergency room, the encouraged him to slow his breathing, in route his symptoms resolved and he feels back to normal now, his oxygen saturati on 95% on 2 L. Timing/Duration: constant Severity/Quality: moderate Associated Symptoms: cough Allergies and Home Medications Allergies Coded Allergies: amiodarone (Verified Allergy, Severe, 03/13/19) lorazepam (Verified Allergy, Unknown, 03/13/19) scopolamine (Verified Allergy, Unknown, 03/13/19) Home Medications Acetaminophen 325 Mg Tablet, 650 MG PO Q4H PRN for PAIN Prescribed by: DANNIELLE BRAUN on 05/10/15 1424 Albuterol Sulfate 2.5 Mg/3 Ml Nebu, 2.5 MG INH RTBID Prescribed by: RONAK JOY on 05/05/14 115 Aspirin 81 Mg Tabec, 81 MG PO DAILY Prescribed by: RONAK JOY on 05/05/14 115 Cefuroxime Axetil 500 Mg Tablet, 500 MG PO BID Prescribed by: DANNIELLE BRAUN on 05/10/15 1424 Cholecalciferol 1,000 Unit Tab, 2,000 UNIT PO DAILY Prescribed by: RONAK JOY on 05/05/14 115 Digoxin 0.25 Mg Tab, 0.25 MG PO DAILY Prescribed by: RONAK JOY on 05/05/14 115 Furosemide 40 Mg Tab, 40 MG PO DAILY Prescribed by: RONAK JOY on 05/05/14 115 Guaifenesin 600 Mg Tab, 600 MG PO BID PRN for COUGH Prescribed by: RONAK JOY on 05/05/141152 Levothyroxine Sodium 75 Mcg Tablet, 75 MCG PO DAILY, (Reported) Menthol/Lanolin/Calamine/Znox 113 Gm Oint, 0 GM EXT QID Prescribed by: RONAK JOY on 05/05/141152 Metoprolol Succinate 25 Mg Tab, 50 MG PO DAILY Prescribed by: RONAK JOY on 05/05/141152 Montelukast Sodium 10 Mg Tablet, 10 MG PO HS, (Reported) Phenobarbital 64.8 Mg Tablet, 129.6 MG PO HS, (Reported) Phenytoin Sodium 100 Mg Cap, 300 MG PO WITH EVENING MEAL, (Reported) TAKES 3 (100MG) CAPSULES Phenytoin Sodium Extended 100 Mg Capsule, 200 MG PO DAILY, (Reported) TAKES 2 (100MG) CAPSULES EVERY MORNING Simvastatin 10 Mg Tablet, 10 MG PO HS, (Reported) [Budesonide/Formoterol Fumarate] 1 PUFF PUFF, 2 PUFF IH RTBID Prescribed by: RONAK JOY on 05/05/141152 [Chlorhexidine Gluconate] 15 ML SOLN, 5 ML PO BID Prescribed by: RONAK JOY on 05/05/141152 [Lisinopril] 5 MG TABLET, 5 MG PO DAILY@0900 Prescribed by: RONAK JOY on 05/05/141152 [Polyethylene Glycol] 17 GM PACK, 17 GM PO DAILY Prescribed by: RONAK JOY on 05/05/141152 Patient Home Medication List Home Medication List Reviewed: Yes Review of Systems Review of Systems Constitutional: see HPI EENTM: see HPI Respiratory: see HPI, cough Cardiovascular: no symptoms reported Genitourinary: no symptoms reported Musculoskeletal: no symptoms reported Skin: no symptoms reported Psychiatric/Neurological: No Symptoms Reported Hematologic/Lymphatic: No Symptoms Reported Past Gwgaglp-Nxvitr-Hpayip Hx Patient Social History Alcohol Use: Denies Use Recreational Drug Use: No Smoking Status: Former Smoker Former Smoker, Quit: Oct 14, 1989 2nd Hand Smoke Exposure: No Recent Foreign Travel: No Contact w/Someone Who Travel: No Recent Infectious Disease Expo: No Recent Hopitalizations: Yes Immunizations Up To Date Tetanus Booster (TDap): Less than 5yrs PED Vaccines UTD: Yes Date of Pneumonia Vaccine: January 20, 2015 Date of Influenza Vaccine: May 10, 2015 Seasonal Allergies Seasonal Allergies: No Past Medical History Surgeries: Yes (hernia, oral, brain biopsy ) CABG, Eye Surgery Respiratory: Yes COPD Cardiac: Yes (CATH) Hypertension Neurological: Yes (Brain biopsy 1990) Seizure Disorder, Stroke Reproductive Disorders: No Sexually Transmitted Disease: No Genitourinary: No Gastrointestinal: Yes Abdominal Hernia 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) Endocrine: No HEENT: No Hearing Impairment: Hard of Hearing Cancer: Yes Skin Psychosocial: Yes Depression Integumentary: No Blood Disorders: No Adverse Reaction/Blood Tranf: No Family Medical History Arthritis 19 MOTHER, Cardiovascular disease G8 BROTHER, G8 BROTHER, , Age:67 G8 BROTHER G8 SISTER Cataracts G8 BROTHER, , Age:67 G8 BROTHER Completed stroke 19 MOTHER, Deafness or hearing loss G8 BROTHER G8 BROTHER Diabetes mellitus G8 SISTER Headache disorder 19 FATHER, 19 MOTHER, G8 BROTHER, G8 BROTHER, , Age:67 G8 BROTHER G8 BROTHER G8 SISTER Hypercholesterolemia G8 BROTHER, , Age:67 G8 BROTHER G8 BROTHER G8 SISTER Hypertension 19 MOTHER, G8 BROTHER G8 SISTER Myocardial infarction G8 BROTHER, , Age:67 G8 BROTHER G8 SISTER Respiratory disorder G8 BROTHER, Thyroid disease G8 SISTER No Family History of: AIDS Abdominal aortic aneurysm Throckmorton's disease Alcoholism Alzheimer's disease Aphasia Asthma Cancer of mouth Colon cancer Congenital disease Congenital heart disease Cystic fibrosis Dementia Drug abuse Dysphasia Fibrocystic disease of breast Gastroenteritis Glaucoma Infertility Kidney disease Neoplasm Not obtainable due to adoption Osteoporosis Parkinson's disease Prostate cancer Psychosocial problem Seizure disorder Severe allergy Tuberculosis Visual disorder No Pertinent Family Hx Physical Exam Vital Signs - First Documented 11/02/19 15:51 Temp 36.7 Pulse 88 Resp 20 B/P (MAP) 145/73 (97) Capillary Refill : Less Than 3 Seconds Height: 6'0" Weight: 187lbs. 0.0oz. 84.999097ft; 30.00 BMI Method:Stated General Appearance: WD/WN, no apparent distress Eyes: Bilateral Eye Normal Inspection, Bilateral Eye PERRL, Bilateral Eye EOMI HEENT: PERRL/EOMI, normal ENT inspection Respiratory: no respiratory distress, no accessory muscle use, decreased breath sounds, crackles; No wheezing Cardiovascular: regular rate, rhythm, no murmur Gastrointestinal: normal bowel sounds, soft Extremities: normal range of motion, non-tender Neurologic/Psychiatric: alert, normal mood/affect, oriented x 3 Skin: normal color, warm/dry Procedures/Interventions Suture Size: 5-0 Progress/Results/Core Measures Suspected Sepsis Recent Fever Within 48 Hours: No Infection Criteria Present: Suspected New Infection New/Unexplained Altered Menta: No Sepsis Screen: No Definite Risk SIRS Temperature: Pulse: 88 Respiratory Rate: 20 Laboratory Tests 11/02/19 16:35: White Blood Count 7.5 Blood Pressure 145 /73 Mean: 97 Laboratory Tests 11/02/19 16:35: Creatinine 1.00, Platelet Count 177, Total Bilirubin 0.3 Results/Orders Lab Results Laboratory Tests Test 11/02/19 16:35 Range/Units White Blood Count 7.5 4.3-11.0 10^3/uL Red Blood Count 4.12 L 4.35-5.85 10^6/uL Hemoglobin 13.0 L 13.3-17.7 G/DL Hematocrit 39 L 40-54 % Mean Corpuscular Volume 94 80-99 FL Mean Corpuscular Hemoglobin 32 25-34 PG Mean Corpuscular Hemoglobin Concent 33 32-36 G/DL Red Cell Distribution Width 14.1 10.0-14.5 % Platelet Count 177 130-400 10^3/uL Mean Platelet Volume 10.3 7.4-10.4 FL Neutrophils (%) (Auto) 79 H 42-75 % Lymphocytes (%) (Auto) 9 L 12-44 % Monocytes (%) (Auto) 11 0-12 % Eosinophils (%) (Auto) 2 0-10 % Basophils (%) (Auto) 0 0-10 % Neutrophils # (Auto) 5.9 1.8-7.8 X 10^3 Lymphocytes # (Auto) 0.6 L 1.0-4.0 X 10^3 Monocytes # (Auto) 0.8 0.0-1.0 X 10^3 Eosinophils # (Auto) 0.2 0.0-0.3 10^3/uL Basophils # (Auto) 0.0 0.0-0.1 10^3/uL D-Dimer 1.43 H 0.00-0.49 UG/ML Sodium Level 136 135-145 MMOL/L Potassium Level 4.4 3.6-5.0 MMOL/L Chloride Level 102 98-107 MMOL/L Carbon Dioxide Level 25 21-32 MMOL/L Anion Gap 9 5-14 MMOL/L Blood Urea Nitrogen 22 H 7-18 MG/DL Creatinine 1.00 0.60-1.30 MG/DL Estimat Glomerular Filtration Rate > 60 BUN/Creatinine Ratio 22 Glucose Level 106 H 70-105 MG/DL Calcium Level 8.8 8.5-10.1 MG/DL Corrected Calcium 8.8 8.5-10.1 MG/DL Total Bilirubin 0.3 0.1-1.0 MG/DL Aspartate Amino Transf (AST/SGOT) 43 H 5-34 U/L Alanine Aminotransferase (ALT/SGPT) 40 0-55 U/L Alkaline Phosphatase 195 H 40-136 U/L Troponin I 0.029 H <0.028 NG/ML B-Type Natriuretic Peptide 479.4 H <100.0 PG/ML Total Protein 8.7 H 6.4-8.2 GM/DL Albumin 4.0 3.2-4.5 GM/DL Micro Results Microbiology 11/02/19 Influenza Types A,B Antigen ([facility]) - Final, Complete My Orders Orders - L[facility] [employer]IR[employer] RESEARCH[employer] Cbc With Automated Diff (11/02/19 16:20) Comprehensive Metabolic Panel (11/02/19 16:20) Ed Iv/Invasive Line Start (11/02/19 16:20) BNP (11/02/19 16:20) Chest Pa/Lat (2 View) (11/02/19 16:20) Ekg Tracing (11/02/19 16:20) Troponin I (11/02/19 16:20) Fibrin Degradation Products (11/02/19 16:20) Influenza A And B Antigens (11/02/19 16:22) Cefepime Injection (Maxipime Injection) (11/02/19 16:45) Methylprednisolone Sod Succ (Solu-Medrol (11/02/19 16:45) Blood Culture (11/02/19 16:36) Sputum Culture (11/02/19 16:36) Ct Angio Chest W (11/02/19 17:14) Ns Iv 500 Ml (Sodium Chloride 0.9%) (11/02/19 17:15) Iohexol Injection (Omnipaque 350 Mg/Ml 1 (11/02/19 18:00) Received Contrast (Hold Metformin- Contr (11/02/19 18:00) Ns (Ivpb) (Sodium Chloride 0.9% Ivpb Bag (11/02/19 18:00) Troponin I (11/02/19 18:08) [facility] Cath (11/02/19 18:16) Furosemide Injection (Lasix Injection) (11/02/19 18:30) Medications Given in ED Current Medications Medications Dose Ordered Sig/Yissel Route Start Time Stop Time Status Last Admin Dose Admin Cefepime HCl 1000 mg/Sterile Water 10 ml @ 200 mls/hr ONCE ONCE IV 11/02/19 16:45 11/02/19 16:47 DC 11/02/19 17:04 200 MLS/HR Iohexol 100 ml ONCE ONCE IV 11/02/19 18:00 11/02/19 18:01 DC 11/02/19 17:49 77 ML Methylprednisolone Sodium Succinate 125 mg ONCE ONCE IVP 11/02/19 16:45 11/02/19 16:46 DC 11/02/19 17:02 125 MG Sodium Chloride 100 ml ONCE ONCE IV 11/02/19 18:00 11/02/19 18:01 DC 11/02/19 17:49 80 ML Vital Signs/I&O 11/02/19 15:51 Temp 36.7 Pulse 88 Resp 20 B/P (MAP) 145/73 (97) Capillary Refill : Less Than 3 Seconds Blood Pressure Mean: 97 Diagnostic Imaging Diagonstic Imaging: Xray, CT Comments NAME: LLUVIA GOLDBERG [facility] REC#: [id number] PT STATUS: REG ER : 1940 PHYSICIAN: LANE RAMIRES APRN ADMIT DATE: 11/02/19/ER Draft Date of Exam:11/02/19 CHEST PA/LAT (2 VIEW) INDICATION: Dyspnea. TECHNIQUE: PA and lateral views of the chest are obtained with comparison made to study of 05/14/2019. FINDINGS: Cardiomegaly and pulmonary venous congestion are again noted. Patchy airspace disease is seen in both lungs. The appearance has remained stable or improved slightly since previous examination. There is no evidence of pneumothorax or new infiltrate. Right rib fractures are again seen posteriorly on the right involving seventh and eighth ribs. IMPRESSION: Mild patchy densities in both lungs have shown mild overall improvement without new abnormality detected. Dictated on workstation # [id number] Dict: 11/02/19 1718 Trans: 11/02/19 1721 [id number] [id number] Interpreted by: LLUVIA VILLEGAS MD Electronically signed by: NAME: LLUVIA GOLDBERG [facility] REC#: [id number] PT STATUS: REG ER : 1940 PHYSICIAN: LANE RAMIRES LAW RESEARCHER ADMIT DATE: 11/02/19/ER Draft Date of Exam:11/02/19 CT ANGIO CHEST W PROCEDURE: CT angiography of the chest with contrast. TECHNIQUE: Multiple contiguous axial images were obtained through the chest after uneventful bolus administration of intravenous contrast. 3D reconstructed CTA MIP acquisitions were also performed. Auto Exposure Controls were utilized during the CT exam to meet ALARA standards for radiation dose reduction. INDICATION: Dyspnea. FINDINGS: There is extensive centrilobular emphysema in the lungs with mild groundglass density which could represent edema or pneumonitis. There is no evidence of lobar consolidation or alveolar pneumonia. No significant pleural or pericardial fluid is identified. Surgical findings are present in the mediastinum without evidence of pathologic adenopathy. There is probable dependent pericardial calcific plaquing. There is dilatation of the left heart chambers. Numerous cysts are present within the visualized kidneys. IMPRESSION: Background emphysema with probable mild diffuse edema and/or pneumonitis. No consolidation, mass, or other acute abnormality is seen within the thorax. Dictated on workstation # [id number] Dict: 11/02/19 1750 Trans: 11/02/19 1758 [id number] Interpreted by: LLUVIA VILLEGAS MD Electronically signed by: Departure Communication (Admissions) 1820-patient states he feels "okay". CT chest shows findings consistent with pneumonitis or pulmonary edema, given the crackling, the worsening shortness of breath from baseline. They're concerned about sending him home as the potential for this actually representing pulmonary edema does exist. There is no jugular vein distention, he does however have a history of CHF. His states that he is more short of breath than typical. I did notice that comparing present exam to exam almost 3 hours ago when he first arrived, he is more audibly crackly during conversation given 40 mg of Lasix, admit to Dr. Kang consult Dr. Uche lin. Impression Primary Impression: COPD exacerbation Disposition: ADMITTED INPATIENT Condition: Stable Admissions Decision to Admit Reason: Admit from ER (General) Decision to Admit/Date: Nov 02, 2019 Time/Decision to Admit Time: 18:20 Departure-Patient Inst. Decision time for Depature: 16:48 Referrals: JULISSA VASQUEZ MD (PCP) Primary Care Physician Patient Instructions: Exacerbation of COPD Add. Discharge Instructions: All discharge instructions reviewed with patient and/or family. Voiced understanding. LANE RAMIRES APRN Nov 02, 2019 16:43
[2019-11-02] MEDS ORDERED: CEFEPIME INJECTION 1,000 MG in WATER (STERILE) FOR INJECTION 10 ML IV ONE (16:45)
[2019-11-02] MEDS ORDERED: methylPREDNISolone 125 MG (Solu-MEDROL) VIAL IVP ONE (16:45)
[2019-11-02 16:48] LABS: BASOPHILS % (AUTO) 0 % (0-10); EOSINOPHILS # (AUTO) 0.2 10^3/uL (0.0-0.3); EOSINOPHILS % (AUTO) 2 % (0-10); HEMATOCRIT 39 % (40-54); LYMPHOCYTES # (AUTO) 0.6 X 10^3 (1.0-4.0); LYMPHOCYTES % (AUTO) 9 % (12-44); MEAN CORPUSCULAR HEMOGLOBIN 32 PG (25-34); MEAN CORPUSCULAR HGB CONC 33 G/DL (32-36); MEAN CORPUSCULAR VOLUME 94 FL (80-99); MEAN PLATELET VOLUME 10.3 FL (7.4-10.4); MONOCYTES # (AUTO) 0.8 X 10^3 (0.0-1.0); MONOCYTES % (AUTO) 11 % (0-12); NEUTROPHILS # (AUTO) 5.9 X 10^3 (1.8-7.8); NEUTROPHILS % (AUTO) 79 % (42-75); PLATELET COUNT 177 10^3/uL (130-400); RED CELL DISTRIBUTION WIDTH 14.1 % (10.0-14.5); WHITE BLOOD COUNT 7.5 10^3/uL (4.3-11.0)
[2019-11-02 17:06] LABS: ALANINE AMINOTRANSFERASE 40 U/L (0-55); ALKALINE PHOSPHATASE 195 U/L (40-136); BILIRUBIN,TOTAL 0.3 MG/DL (0.1-1.0); BUN/CREATININE RATIO 22; CALCIUM 8.8 MG/DL (8.5-10.1); CARBON DIOXIDE 25 MMOL/L (21-32); CHLORIDE 102 MMOL/L (98-107); GFR ESTIMATED > 60; GLUCOSE 106 MG/DL (70-105); POTASSIUM 4.4 MMOL/L (3.6-5.0); SODIUM 136 MMOL/L (135-145); TOTAL PROTEIN 8.7 GM/DL (6.4-8.2)
[2019-11-02] MEDS ORDERED: NS IV 500 ML 500 ML IV SCH (17:15)
--- NOTE | 2019-11-02 17:22 | Diagnostic Imaging Report ---
INDICATION: Dyspnea. TECHNIQUE: PA and lateral views of the chest are obtained with comparison made to study of 05/14/2019. FINDINGS: Cardiomegaly and pulmonary venous congestion are again noted. Patchy airspace disease is seen in both lungs. The appearance has remained stable or improved slightly since previous examination. There is no evidence of pneumothorax or new infiltrate. Right rib fractures are again seen posteriorly on the right involving seventh and eighth ribs. IMPRESSION: Mild patchy densities in both lungs have shown mild overall improvement without new abnormality detected. Dictated by: Dictated on workstation # [id number]
--- NOTE | 2019-11-02 17:59 | Diagnostic Imaging Report ---
PROCEDURE: CT angiography of the chest with contrast. TECHNIQUE: Multiple contiguous axial images were obtained through the chest after uneventful bolus administration of intravenous contrast. 3D reconstructed CTA MIP acquisitions were also performed. Auto Exposure Controls were utilized during the CT exam to meet ALARA standards for radiation dose reduction. INDICATION: Dyspnea. FINDINGS: There is extensive centrilobular emphysema in the lungs with mild groundglass density which could represent edema or pneumonitis. There is no evidence of lobar consolidation or alveolar pneumonia. No significant pleural or pericardial fluid is identified. Surgical findings are present in the mediastinum without evidence of pathologic adenopathy. There is probable dependent pericardial calcific plaquing. There is dilatation of the left heart chambers. Numerous cysts are present within the visualized kidneys. IMPRESSION: Background emphysema with probable mild diffuse edema and/or pneumonitis. No consolidation, mass, or other acute abnormality is seen within the thorax. Dictated by: Dictated on workstation # [id number]
[2019-11-02] MEDS ORDERED: IOHEXOL 350 MG/ML 100 ML (OMNIPAQUE 350) VIAL IV ONE (18:00)
[2019-11-02] MEDS ORDERED: HOLD METFORMIN - RECEIVED CONTRAST 20 ML VIAL IV SCH (18:00)
[2019-11-02] MEDS ORDERED: NS 100 ML (IVPB) BAG IV ONE (18:00)
[2019-11-02] MEDS ORDERED: FUROSEMIDE 40 MG/4 ML INJ (LASIX) IVP ONE (18:30)
--- NOTE | 2019-11-02 20:25 | NUR ---
LLUVIA GOLDBERG admitted to room 413-1, with an admitting diagnosis of ACUTE CHF EXACERBATION, on 11/02/19 from ED via , accompanied by .LLUVIA GOLDBERG introduced to surroundings, call light, bed controls, phone, TV, temperature control, lights, meal times, smoking policy, visitor policy, side rail policy, bathrooms and showers. Patient Rights given to patient in the handbook. LLUVIA GOLDBERG verbalizes understanding that [facility] is not responsible for the loss or damage to any personal effects or valuables that are kept in the patients posession during their hospitalization. LLUVIA GOLDBERG verbalizes understanding of Interdisciplinary Patient Education. Patient and/or family were informed about the Rapid Response Team and its purpose.
[2019-11-02] MEDS ORDERED: cefTRIAXone 1,000 MG/SWFI 10 ML IV PUSH IV SCH ×2 (20:30)
[2019-11-02] MEDS ORDERED: AZITHROMYCIN 250 MG TAB (ZITHROMAX) PO NR (20:30)
[2019-11-02 20:32] VITALS: BP 164/79
[2019-11-02] MEDS ORDERED: CATHETER FLUSH 10 ML SYR IV PRN (20:45)
[2019-11-02] MEDS ORDERED: CATHETER FLUSH 10 ML SYR IV SCH (22:00)
[2019-11-02] MEDS: ENOXAPARIN 40 MG/0.4 ML (LOVENOX) SYR SC SCH (22:05)
[2019-11-03] VITALS (9 sets, daily range): BP systolic 130–158; BP diastolic 65–78
[2019-11-03] MEDS: methylPREDNISolone 40 MG/ML (Solu-MEDROL) VIAL IV SCH ×3 (00:57→14:53)
[2019-11-03] MEDS: FUROSEMIDE 40 MG/4 ML INJ (LASIX) IV SCH ×2 (06:59→17:52)
--- NOTE | 2019-11-03 07:55 | Consultation-Cardiology ---
HPI-Cardiology Cardiology Consultation: Date of Consultation 11/03/19 Time Seen by a Provider: 10:00 Date of Admission 11-02-2019 Attending Physician Alexa Kang MD Admitting Physician Brendon Trejo MD Consulting Physician Jhonny Bhandari MD HPI: Chief Complaint: Progressive dyspnea Acute on chronic CHF Mr. Reddy is an 79 year old male admitted to 413 from the ED. His spouse is at the bedside. She reports she has been ill with an URI. She states yesterday he was lying in bed taking a nap and when she went to check on him she noted his breathing to be labored. She report she checked his oxygen sat at home and noted it to be 89%. She called his PCP and was instructed to bring him for an appointment. She states by the time she was bringing him to his PCP, he was very weak and shaky. She reports he was reporting increasing SOB, lose cough and his oxygen sat was 80% so she brought him to the ED. He reports by the time he came to the ED he was feeling better. He reports he did not have a good night last night. He reports frequent, occ productive cough and continued SOB this morning. No c/o CP, palpitations, syncope or near syncope. No c/o LE swelling. No c/o fever/chills. No c/o n/v/d. Review of Systems-Cardiology Review of Systems Constitutional: No chills, No fever; malaise Eyes: No vision change Ears/Nose/Throat: No epistaxis, No recent hearing loss Respiratory: As described under HPI Cardiovascular: As described under HPI Gastrointestinal: constipation; No diarrhea, No nausea, No vomiting Genitourinary: No dysuria, No hematuria Musculoskeletal: back pain, joint pain Skin: other (fraiable skin); No rash on exposed areas, No ulcerations on exposed areas Psychiatric/Neurological: anxiety, depression, seizure; No syncope Hematologic: easy bleeding, easy bruising RFS-Bvqepi-Cftypn Hx Patient Social History Alcohol Use: Denies Use Recreational Drug Use: No Smoking Status: Former Smoker Former smoker/When Quit: May 10, 1989 2nd Hand Smoke Exposure: No Recent Foreign Travel: No Recent Infectious Disease Expo: No Hospitalization with Isolation: Denies Immunizations Up To Date Tetanus Booster (TDap): Less than 5yrs Date of Pneumonia Vaccine: January 20, 2015 Date of Influenza Vaccine: May 10, 2019 Past Medical History PMH As described under Assessment. Family Medical History Family Medical History: He reports his mother had a CVA and HTN. He has 3 brothers and a sister who have CAD. He has one brother with HTN and a sister with HTN. Family History: 19 FATHER, Headache disorder 19 MOTHER, Arthritis Completed stroke Headache disorder Hypertension G8 BROTHER, Cardiovascular disease Headache disorder Respiratory disorder G8 BROTHER, , Age:67 Cardiovascular disease Cataracts Headache disorder Hypercholesterolemia Myocardial infarction G8 BROTHER Cardiovascular disease Cataracts Deafness or hearing loss Headache disorder Hypercholesterolemia Hypertension Myocardial infarction G8 BROTHER Deafness or hearing loss Headache disorder Hypercholesterolemia G8 SISTER Cardiovascular disease Diabetes mellitus Headache disorder Hypercholesterolemia Hypertension Myocardial infarction Thyroid disease Allergies and Home Medications Allergies Coded Allergies: amiodarone (Verified Allergy, Severe, 03/13/19) lorazepam (Verified Allergy, Unknown, 03/13/19) scopolamine (Verified Allergy, Unknown, 03/13/19) Home Medications Albuterol Sulfate 2.5 Mg/0.5 Ml Vial.neb, 2.5 MG INH Q4 -6H PRN for SHORTNESS OF BREATH, (Reported) WHEN PT IS IN A [facility] FLARE HE TAKING A TREAMENT EVERY 4-6 HOURS *3-4 TIMES DAILY) Aspirin 81 Mg Tablet.dr, 81 MG PO DAILY, (Reported) Bimatoprost 2.5 Ml Drops, 1 DROP OD HS, (Reported) Budesonide/Formoterol Fumarate 10.2 Gm Hfa.aer.ad, 2 PUFF IH BID, (Reported) Chlorhexidine Gluconate 473 Ml Mouthwash, 5-10 ML MT BID, (Reported) RINSE AND SPIT TWICE DAILY Cholecalciferol (Vitamin D3) 50 Mcg Capsule, 50 MCG PO DAILY, (Reported) Clobetasol Propionate 15 Gm Cream..g., 1 APPLIC TOP BID, (Reported) MIXES WITH MOSTURIZER (EURICIN OR VANICREAM) AND APPLIES TO THE LEFT ARM AND SPOT ON CHEST TWICE DAILY Cyanocobalamin (Vitamin B-12) 2,500 Mcg Tablet, 2,500 MCG PO DAILY, (Reported) Digoxin 250 Mcg Tablet, 250 MCG PO DAILY, (Reported) Furosemide 40 Mg Tablet, 40 MG PO DAILY, (Reported) Guaifenesin 600 Mg Tab.er.12h, 600 MG PO BID PRN for CONGESTION, (Reported) Levothyroxine Sodium 75 Mcg Tablet, 75 MCG PO DAILY, (Reported) Lisinopril 5 Mg Tablet, 5 MG PO DAILY, (Reported) Metoprolol Succinate 50 Mg Tab.er.24h, 50 MG PO DAILY, (Reported) Metronidazole 45 Gm Gel..gram., 1 APPLIC TD DAILY PRN for BREAKOUT, (Reported) APPLIES TO THE FOREHEAD Montelukast Sodium 10 Mg Tablet, 10 MG PO HS, (Reported) Phenobarbital 64.8 Mg Tablet, 129.6 MG PO HS, (Reported) TAKES 2 (64.8MG) TABS TO EQUAL 129.6MG Phenytoin Sodium Extended 100 Mg Capsule, 300 MG PO 1800, (Reported) TAKES 2 (100MG) CAPS IN THE MORNING AND 3 (100MG) CAPS AT 1800 Phenytoin Sodium Extended 100 Mg Capsule, 200 MG PO DAILY, (Reported) TAKES 2 (100MG) CAPS IN THE MORNING AND 3 (100MG) CAPS AT 1800 Polyethylene Glycol 3350 17 Gm Powd.pack, 17 GM PO DAILY, (Reported) Pyridoxine HCl 25 Mg Tablet, 25 MG PO DAILY, (Reported) Simvastatin 10 Mg Tablet, 10 MG PO HS, (Reported) Physical Exam-Cardiology Physical Exam Vital Signs/I&O 11/03/19 11/03/19 11/04/19 11/04/19 22:34 23:30 02:08 04:00 Temp 37.2 37.2 Pulse 88 84 Resp 18 18 B/P (MAP) 130/78 (95) 121/58 (79) Pulse Ox 92 98 92 94 O2 Delivery Nasal Cannula Nasal Cannula Nasal Cannula Nasal Cannula O2 Flow Rate 3.00 3.00 3.00 4.00 3.00 11/04/19 11/04/19 11/04/19 11/04/19 04:43 05:13 06:50 08:00 Temp 37.2 37.2 36.8 Pulse 56 Resp 20 B/P (MAP) 112/54 (73) Pulse Ox 92 91 O2 Delivery Nasal Cannula Nasal Cannula O2 Flow Rate 3.00 2.00 11/04/19 00:00 Intake Total 2000 ml Output Total 1800 ml Balance 200 ml Capillary Refill : Less Than 3 Seconds Constitutional: AAO x 3, well-developed, well-nourished HEENT: PERRL, hearing is well preserved, oral hygience is good Neck: No carotid bruit; carotid pulses are 2 + bilaterally Respiratory: No accessory muscle use, No respiratory distress; chest expansion is symmetric, chest is bilaterally symmetric, crackles (lower lobes bilat), rhonchi (scattered), other (frequent, lose cough) Cardiovascular: regular rate-rhythm; No JVD; S1 and S2 Gastrointestinal: No tender; soft, round, audible bowel sounds Extremities: no lower extremity edema bilateral Neurologic/Psychiatric: grossly intact (moves all extremiteis) Skin: No rash on exposed areas, No ulcerations on exposed areas; other (fragile skin intergrity with multiple bruises to arms bilat) Data Review Labs Laboratory Tests 11/03/19 10:20: White Blood Count 8.1, Red Blood Count 4.38, Hemoglobin 13.8, Hematocrit 41, Mean Corpuscular Volume 94, Mean Corpuscular Hemoglobin 32, Mean Corpuscular Hemoglobin Concent 33, Red Cell Distribution Width 14.2, Platelet Count 181, Mean Platelet Volume 10.5H, Neutrophils (%) (Auto) 87H, Lymphocytes (%) (Auto) 4L, Monocytes (%) (Auto) 10, Eosinophils (%) (Auto) 0, Basophils (%) (Auto) 0, Neutrophils # (Auto) 7.0, Lymphocytes # (Auto) 0.3L, Monocytes # (Auto) 0.8, Eosinophils # (Auto) 0.0, Basophils # (Auto) 0.0, Sodium Level 135, Potassium Level 4.4, Chloride Level 100, Carbon Dioxide Level 24, Anion Gap 11, Blood Urea Nitrogen 30H, Creatinine 1.12, Estimat Glomerular Filtration Rate > 60, BUN/Creatinine Ratio 27, Glucose Level 143H, Calcium Level 9.6, Troponin I 0.057H, Procalcitonin 0.10H, Digoxin Level 0.44L, Phenytoin (Dilantin) Level 11.9 11/04/19 05:22: Sodium Level 136, Potassium Level 4.0, Chloride Level 99, Carbon Dioxide Level 27, Anion Gap 10, Blood Urea Nitrogen 42H, Creatinine 1.56H, Estimat Glomerular Filtration Rate 43, BUN/Creatinine Ratio 27, Glucose Level 96, Calcium Level 8.9, Magnesium Level 2.2 Microbiology 11/02/19 Blood Culture - Preliminary, Resulted No growth 11/02/19 Influenza Types A,B Antigen ([facility]) - Final, Complete Radiology NAME: LLUVIA REDDY MED REC#: [id number] PT STATUS: ADM IN : 1940 PHYSICIAN: LANE RAMIRES APRN ADMIT DATE: 11/02/19 Signed Date of Exam:11/02/19 CHEST PA/LAT (2 VIEW) INDICATION: Dyspnea. TECHNIQUE: PA and lateral views of the chest are obtained with comparison made to study of 05/14/2019. FINDINGS: Cardiomegaly and pulmonary venous congestion are again noted. Patchy airspace disease is seen in both lungs. The appearance has remained stable or improved slightly since previous examination. There is no evidence of pneumothorax or new infiltrate. Right rib fractures are again seen posteriorly on the right involving seventh and eighth ribs. IMPRESSION: Mild patchy densities in both lungs have shown mild overall improvement without new abnormality detected. Dictated by: Dictated on workstation # [id number] Dict: 11/02/198 Trans: 11/02/192209 [id number] [id number] Interpreted by: LLUVIA VILLEGAS MD Electronically signed by: LLUVIA VILLEGAS MD 11/02/190 NAME: LLUVIA REDDY MED REC#: [id number] PT STATUS: ADM IN : 1940 PHYSICIAN: LANE RAMIRES APRN ADMIT DATE: 11/02/19 Signed Date of Exam:11/02/19 CT ANGIO CHEST W PROCEDURE: CT angiography of the chest with contrast. TECHNIQUE: Multiple contiguous axial images were obtained through the chest after uneventful bolus administration of intravenous contrast. 3D reconstructed CTA MIP acquisitions were also performed. Auto Exposure Controls were utilized during the CT exam to meet ALARA standards for radiation dose reduction. INDICATION: Dyspnea. FINDINGS: There is extensive centrilobular emphysema in the lungs with mild groundglass density which could represent edema or pneumonitis. There is no evidence of lobar consolidation or alveolar pneumonia. No significant pleural or pericardial fluid is identified. Surgical findings are present in the mediastinum without evidence of pathologic adenopathy. There is probable dependent pericardial calcific plaquing. There is dilatation of the left heart chambers. Numerous cysts are present within the visualized kidneys. IMPRESSION: Background emphysema with probable mild diffuse edema and/or pneumonitis. No consolidation, mass, or other acute abnormality is seen within the thorax. Dictated by: Dictated on workstation # [id number] Dict: 11/02/19 1750 Trans: 11/02/192209 [id number] [id number] Interpreted by: LLUVIA VILLEGAS MD Electronically signed by: LLUVIA VILLEGAS MD 11/02/192209 A/P-Cardiology Assessment/Admission Diagnosis Acute on chronic systolic CHF Mildly elevated troponin likely r/t transient hypoxia and CHF URI - management per medical services Chronic tiredness and fatigue, likely multifactorial, see below Coronary artery disease with a history of coronary artery bypass surgery several years ago. Last cardiac catheterization was in December 2009. It showed severe [place] coronary artery disease, including mid-vessel occlusion of the right coronary and the left circumflex and severe stenosis in the mid left anterior descending artery. There was patent saphenous vein graft to distal right coronary, patent saphenous vein graft to obtuse marginal, patent left internal mammary artery graft to mid left anterior descending artery. He underwent successful percutaneous intervention and stenting to the proximal and mid right coronary artery and a large right ventricular branch with drug-eluting stents (Promus 2.5 x 12 and Promus 2.5 x 23 proximal to distal, slightly overlapping). Since his coronary stenting of December 2009, he has not had any recurrence of angina pectoris. Last myocardial perfusion imaging of December 2018 showed inferior and lateral wall myocardial infarctions without significant ischemia. Marked cardiomegaly. Inferior and lateral wall akinesis. Global hypokinesis. LVEF 8% Ischemic cardiomyopathy with varied LVEF of 8-30% by various measurements over the course of the last several years. Echocardiogram of January 20, 2019 shows wall thickness mildly increased. LVEF 25- 30%. Grade 1 diastolic dysfunction. RV systolic function reduced. LA dilated. Mod to severe MR. RVSP approx 50 mmHg. Defibrillator implantation for prophylaxis against sudden cardiac . ICD discharge occurred on 04/12/14 at 2:24 am to treat VF. None since. Device is functioning normally. It reached VI on Apr 14, 2015 and was replaced on 05/10/15 and site does not show evidence of hematoma or inflammation. It is functioning normally per interrogation of 08/12/19 Intolerance to Amiodarone d/t dizziness/weakness when taking this medication per patient and spouse. He refuses therapy with antiarrhythmics, including amiodarone. She and the patient are aware of the implications of their decision including arrhythmia which could be life threatening Dyslipidemia. 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 EEG per September 21, [address] Tyson was abnormal, but without clear epileptiform activity (done during a hospitalization of Sep 2014 at [facility] and requested by Dr Barrientos). Carotid arterial disease, approx 50% R ICA stenosis, less than 40% L ICA stenosis per u/s of September 2019 Gastroesophageal reflux. History of mildly elevated alkaline phosphatase followed by his family kayla H/o intermittent AST/ALT elevation, possibly due to statin therapy. Reactive airways disease. Depression/anxiety Intolerance to scopolamine Left shoulder fracture following fall on 05/03/14, managed by Dr Shipman Nocturnal hypoxemia, but no MAGUI on sleep studies of a few years ago Back pain, managed by Dr Knowles. Recent CT lumbar spine w/o contrast ordered by Dr Knowles (01/02/17): neural froaminal stenosis of L5-S1, bilat renal lesions that could not be adequately characterized and for which he has had u/s at the same office on 01/17/17, abd ao atherosclerosis Segmental pressures of December 2016: mod disease involving the distal arterial circulation of the left leg. No c/o claudication of the left leg Aorta u/s of December 2016: No evidence of AAA Poor balance of undetermined etiology, followed and treated by Dr Barrientos Discussion and Recomendations Acute on chronic systolic CHF - continue IV Lasix Echocardiogram to eval structure and function Mild troponin elevated likely d/t transient hypoxia and CHF Continue ASA d/t known h/o CAD Monitor lab closely and replace electrolytes as indicated Digoxin level Continue home medications including BB, ANTHONY (-) and statin Prob URI/bronchitis - management per medical services We would like to thank medical services for this consult Further recs will be based on his hospital course I have spoken with pt and his spouse regarding plan of care Clinical Quality Measures DVT/VTE Risk/Contraindication: Risk Factor Score Per Nursin RFS Level Per Nursing on Admit: 4+=Very High CARIE PENN Nov 03, 2019 07:55
--- NOTE | 2019-11-03 08:42 | Diagnostic Imaging Report ---
Portable erect AP chest at 637 hours. INDICATION: CHF exacerbation. FINDINGS: The cardiomegaly, the sternal wires and surgical clips and a left-sided defibrillator device is seen on the prior exam of 11/02/2019 are again evident and not significantly changed. The vague area of increased density in the right midlung and the healed displaced right rib fractures in this area seen previously are again evident and no different. The lungs remain relatively clear. There is no sign of failure, pneumonia or pleural effusion to indicate an acute abnormality. The mediastinum is not widened. The osseous structures are intact. IMPRESSION: Stable chest. There has been no adverse change since the prior exam. Dictated by: Dictated on workstation # [id number]
[2019-11-03] MEDS ORDERED: AZITHROMYCIN 250 MG TAB (ZITHROMAX) PO SCH (09:00)
[2019-11-03 10:38] LABS: BASOPHILS % (AUTO) 0 % (0-10); EOSINOPHILS % (AUTO) 0 % (0-10); HEMATOCRIT 41 % (40-54); HEMOGLOBIN 13.8 G/DL (13.3-17.7); LYMPHOCYTES # (AUTO) 0.3 X 10^3 (1.0-4.0); LYMPHOCYTES % (AUTO) 4 % (12-44); MEAN CORPUSCULAR HEMOGLOBIN 32 PG (25-34); MEAN CORPUSCULAR HGB CONC 33 G/DL (32-36); MEAN CORPUSCULAR VOLUME 94 FL (80-99); MEAN PLATELET VOLUME 10.5 FL (7.4-10.4); MONOCYTES # (AUTO) 0.8 X 10^3 (0.0-1.0); MONOCYTES % (AUTO) 10 % (0-12); NEUTROPHILS % (AUTO) 87 % (42-75); PLATELET COUNT 181 10^3/uL (130-400); RED CELL DISTRIBUTION WIDTH 14.2 % (10.0-14.5); WHITE BLOOD COUNT 8.1 10^3/uL (4.3-11.0)
[2019-11-03 11:00] LABS: BUN/CREATININE RATIO 27; CALCIUM 9.6 MG/DL (8.5-10.1); CARBON DIOXIDE 24 MMOL/L (21-32); CHLORIDE 100 MMOL/L (98-107); CREATININE SERUM 1.12 MG/DL (0.60-1.30); GFR ESTIMATED > 60; GLUCOSE 143 MG/DL (70-105); POTASSIUM 4.4 MMOL/L (3.6-5.0); SODIUM 135 MMOL/L (135-145)
[2019-11-03] MEDS ORDERED: ASPI-983 PO (11:09)
[2019-11-03] MEDS ORDERED: PHEN100C11 PO ×2 (11:24→11:25)
[2019-11-03] MEDS ORDERED: GUAI600T43 PO (11:25)
[2019-11-03] MEDS ORDERED: CLOB15CR2 TOP (11:25)
[2019-11-03] MEDS ORDERED: METO50TA7 PO (11:25)
[2019-11-03] MEDS ORDERED: PYRI25TA3 PO (11:25)
[2019-11-03] MEDS ORDERED: POLY17PO6 PO (11:25)
[2019-11-03] MEDS ORDERED: FURO40TA4 PO (11:25)
[2019-11-03] MEDS ORDERED: PHEN64.8 PO (11:25)
[2019-11-03] MEDS ORDERED: BIMA2.5D4 OD (11:25)
[2019-11-03] MEDS ORDERED: CHOL2000 PO (11:25)
[2019-11-03] MEDS ORDERED: LISI-556 PO (11:25)
[2019-11-03] MEDS ORDERED: DIGO250T3 PO (11:25)
[2019-11-03] MEDS ORDERED: BUDE10.2 IH (11:25)
[2019-11-03] MEDS ORDERED: MONT10TA26 PO (11:25)
[2019-11-03] MEDS ORDERED: NFCHLORHGL MT (11:25)
[2019-11-03] MEDS ORDERED: CYAN250010 PO (11:25)
[2019-11-03] MEDS ORDERED: METR45GE9 TD (11:25)
[2019-11-03] MEDS ORDERED: ALB0.5V INH (11:33)
[2019-11-03] MEDS ORDERED: RT-ALBUTEROL SULF 2.5 MG/3 ML PRE-MIX VIAL INH PRN (14:00)
--- NOTE | 2019-11-03 14:30 | NUR ---
SPOKE WITH THE PT AND HIS (SHE HAD SOME MEDS WITH HER) THEY ALSO PROVIDED A DETAILED LIST- WENT THRU THE EXT MED HISTORY AND CALLED [facility] TO COMPLETE THE MED REC. SYMBICORT 160/4.5 AND LUMIGAN DROPS WERE BOTH GIVEN TO THE PT WHEN HE WAS IN A CARE FACILITY AND WERE GIVEN 3 MONTH SUPPLIES. PT HAD A CURRENT BOX FOR SYMBICORT BUT THE LUMIGAN WAS ABOUT OUT AND THE PT'S WAS GETTING A REFILL FROM THE [facility], ALBUTEROL 0.083% WAS THRU [facility] IN [place]- THE LAST DELIVERY WAS ON 10-27-2019 FOR A 3 MONTH SUPPLY. 07-21-2019 DILANTIN 100MG #450/90DS ALL OTHER MEDICATIONS SHOW ON THE EXT MED HISTORY. OTC MEDS: ASPIRIN 81 MIRALAX VIT D VIT B 6 & 12 MUCINEX PRN
[2019-11-03] MEDS ORDERED: meTOproloL SUCCINATE 50 MG (TOPROL XL) TAB PO NR (15:00)
[2019-11-03] MEDS ORDERED: DIGOXIN 0.125 MG (LANOXIN) TAB PO NR (15:00)
[2019-11-03] MEDS ORDERED: lisINopril 5 MG (PRINIVIL) TABLET PO NR (15:00)
[2019-11-03] MEDS ORDERED: PATIENT MAY USE OWN MEDS, ALL MC SCH (15:30)
--- NOTE | 2019-11-03 15:40 | History & Physical-Hospitalist ---
History of Present Illness HPI/Chief Complaint Nirav Reddy is an 79-year-old male with past medical history of hypertension, hyperlipidemia, atrial fibrillation, COPD, hypothyroidism, seizure disorder, coronary artery disease, heart failure with reduced ejection fraction, who presented with shortness of breath. He reports that he has been having shortness of breath for some time. He has also had a dry cough. He denies any fevers or chills. He is unsure of any positional component with his dyspnea. He denies any chest pain. He denies any abdominal pain, nausea, or vomiting. He has no other complaints or concerns at this time. Source: patient, family Exam Limitations: no limitations Date Seen 11/03/19 Time Seen by a Provider: 10:30 Attending Physician Cali Buckley MD PCP Brendon Trejo MD Referring Physician Date of Admission Nov 02, 2019 at 18:19 Home Medications & Allergies Home Medications Reviewed patient Home Medication Reconciliation performed by pharmacy medication reconciliations field radio technician and/or nursing. Patients Allergies have been reviewed. Allergies Allergies Coded Allergies amiodarone (Verified Allergy, Severe, 03/13/19) lorazepam (Verified Allergy, Unknown, 03/13/19) scopolamine (Verified Allergy, Unknown, 03/13/19) Past Swkeoin-Uclbqy-Tanayk Hx Past Med/Social Hx: Reviewed Nursing Past Med/Soc Hx Patient Social History Alcohol Use: Denies Use Recreational Drug Use: No Smoking Status: Former Smoker Former Smoker, Quit: Oct 14, 1989 2nd Hand Smoke Exposure: No Recent Foreign Travel: No Contact w/other who traveled: No Recent Hopitalizations: Yes Recent Infectious Disease Expo: No Immunizations Up To Date Tetanus Booster (TDap): Less than 5yrs Pediatric: Yes Date of Pneumonia Vaccine: January 20, 2015 Date of Influenza Vaccine: May 10, 2019 Seasonal Allergies Seasonal Allergies: No Past Medical History Surgeries: CABG, Eye Surgery Cardiac: Hypertension Neurological: Seizure Disorder, Stroke Reproductive: No Sexually Transmitted Disease: No Gastrointestinal: Abdominal Hernia Hearing Impairment: Hard of Hearing Cancer: Skin Psychosocial: Depression History of Blood Disorders: No Adverse Reaction to Blood Yanes: No Family History Arthritis 19 MOTHER, Cardiovascular disease G8 BROTHER, G8 BROTHER, , Age:67 G8 BROTHER G8 SISTER Cataracts G8 BROTHER, , Age:67 G8 BROTHER Completed stroke 19 MOTHER, Deafness or hearing loss G8 BROTHER G8 BROTHER Diabetes mellitus G8 SISTER Headache disorder 19 FATHER, 19 MOTHER, G8 BROTHER, G8 BROTHER, , Age:67 G8 BROTHER G8 BROTHER G8 SISTER Hypercholesterolemia G8 BROTHER, , Age:67 G8 BROTHER G8 BROTHER G8 SISTER Hypertension 19 MOTHER, G8 BROTHER G8 SISTER Myocardial infarction G8 BROTHER, , Age:67 G8 BROTHER G8 SISTER Respiratory disorder G8 BROTHER, Thyroid disease G8 SISTER No Family History of: AIDS Abdominal aortic aneurysm Shreyas's disease Alcoholism Alzheimer's disease Aphasia Asthma Cancer of mouth Colon cancer Congenital disease Congenital heart disease Cystic fibrosis Dementia Drug abuse Dysphasia Fibrocystic disease of breast Gastroenteritis Glaucoma Infertility Kidney disease Neoplasm Not obtainable due to adoption Osteoporosis Parkinson's disease Prostate cancer Psychosocial problem Seizure disorder Severe allergy Tuberculosis Visual disorder No Pertinent Family Hx Review of Systems Constitutional: no symptoms reported EENTM: no symptoms reported Respiratory: cough, dyspnea on exertion, short of breath Cardiovascular: no symptoms reported Gastrointestinal: no symptoms reported Genitourinary: no symptoms reported Musculoskeletal: no symptoms reported Skin: no symptoms reported Psychiatric/Neurological: No Symptoms Reported Physical Exam Physical Exam Vital Signs Vital Signs - First Documented 11/02/19 11/02/19 15:51 20:09 Temp 36.7 Pulse 88 Resp 20 B/P (MAP) 145/73 (97) Pulse Ox 94 O2 Delivery Nasal Cannula O2 Flow Rate 2.00 Capillary Refill : Less Than 3 Seconds Height, Weight, BMI Height: 6'0" Weight: 187lbs. 0.0oz. 84.568704ag; 26.54 BMI Method:Stated General Appearance: No Apparent Distress, Chronically ill Neck: Normal Inspection, Supple Respiratory: No Respiratory Distress, Crackles, Wheezing Cardiovascular: Regular Rate, Rhythm, No Edema, No Murmur Gastrointestinal: Normal Bowel Sounds, Non Tender, Soft Extremity: Normal Inspection, Non Tender, No Pedal Edema Neurologic/Psychiatric: Alert, Oriented x3, No Motor/Sensory Deficits, Normal Mood/Affect Skin: Normal Color, Warm/Dry Results Results/Procedures Labs Laboratory Tests 11/02/19 16:35 11/03/19 10:20 Patient resulted labs reviewed. Imaging: Reviewed Imaging Report Assessment/Plan Admission Diagnosis Acute on chronic heart failure with reduced ejection fraction Admission Status: Inpatient Order (span 2 midnights) Reason for Inpatient Admission: Heart failure exacerbation requiring IV diuresis Assessment and Plan Acute on chronic heart failure with reduced ejection fraction Acute respiratory failure with hypoxia COPD with acute exacerbation Coronary artery disease Elevated troponin No evidence of pneumonia on labs or imaging workup Chest imaging revealed mild diffuse edema with no consolidation BNP elevated at 613 Troponin mildly elevated Cardiology consulted, appreciate assistance Procalcitonin normal, discontinue antibiotics Started on IV diuretics, continue Echocardiogram ordered Steroids ordered for COPD MAT protocol Hypertension Hyperlipidemia Atrial fibrillation Seizure disorder Continue home meds once med rec complete DVT prophylaxis: Lovenox Diagnosis/Problems Diagnosis/Problems (1) Acute on chronic HFrEF (heart failure with reduced ejection fraction) Status: Acute (2) COPD exacerbation Status: Acute Clinical Quality Measures DVT/VTE Risk/Contraindication: Risk Factor Score Per Nursin RFS Level Per Nursing on Admit: 4+=Very High CALI BUCKLEY MD Nov 03, 2019 15:40
[2019-11-03] MEDS ORDERED: guaiFENesin (MUCINEX) 600 MG TAB PO PRN (15:45)
--- NOTE | 2019-11-03 15:55 | Consultation-Cardiology ---
HPI-Cardiology Cardiology Consultation: Date of Consultation 11/03/19 Time Seen by a Provider: 15:20 Date of Admission Attending Physician Alexa Kang MD Admitting Physician Brendon Trejo MD Consulting Physician DANNIELLE BRAUN MD, MA, FACP, FACC, FSCAI, CCDS HPI: Chief Complaint: CC: Shortness of breath HPI Mr. Reddy is an 79 year old male admitted to 413 from the ED. His spouse is at the bedside. She reports she has been ill with an URI. She states yesterday he was lying in bed taking a nap and when she went to check on him she noted his breathing to be labored. She report she checked his oxygen sat at home and noted it to be 89%. She called his PCP and was instructed to bring him for an appointment. She states by the time she was bringing him to his PCP, he was very weak and shaky. She reports he was reporting increasing SOB, lose cough and his oxygen sat was 80% so she brought him to the ED. He reports by the time he came to the ED he was feeling better. He reports he did not have a good night last night. He reports frequent, occ productive cough and continued SOB this morning. No c/o CP, palpitations, syncope or near syncope. No c/o LE swelling. No c/o fever/chills. No c/o n/v/d. Review of Systems-Cardiology Review of Systems Constitutional: No chills, No fever; malaise Eyes: No vision change Ears/Nose/Throat: No epistaxis, No recent hearing loss Respiratory: As described under HPI Cardiovascular: As described under HPI Gastrointestinal: constipation; No diarrhea, No nausea, No vomiting Genitourinary: No dysuria, No hematuria Musculoskeletal: back pain, joint pain Skin: other (fraiable skin); No rash on exposed areas, No ulcerations on exposed areas Psychiatric/Neurological: anxiety, depression, seizure; No syncope Hematologic: easy bleeding, easy bruising OFK-[facility] Hx Patient Social History Alcohol Use: Denies Use Recreational Drug Use: No Smoking Status: Former Smoker Former smoker/When Quit: May 10, 1989 2nd Hand Smoke Exposure: No Recent Foreign Travel: No Recent Infectious Disease Expo: No Hospitalization with Isolation: Denies Immunizations Up To Date Tetanus Booster (TDap): Less than 5yrs Date of Pneumonia Vaccine: January 20, 2015 Date of Influenza Vaccine: May 10, 2019 Past Medical History PMH As described under Assessment. Family Medical History Family Medical History: He reports his mother had a CVA and HTN. He has 3 brothers and a sister who have CAD. He has one brother with HTN and a sister with HTN. Family History: Arthritis 19 MOTHER, Cardiovascular disease G8 BROTHER, G8 BROTHER, , Age:67 G8 BROTHER G8 SISTER Cataracts G8 BROTHER, , Age:67 G8 BROTHER Completed stroke 19 MOTHER, Deafness or hearing loss G8 BROTHER G8 BROTHER Diabetes mellitus G8 SISTER Headache disorder 19 FATHER, 19 MOTHER, G8 BROTHER, G8 BROTHER, , Age:67 G8 BROTHER G8 BROTHER G8 SISTER Hypercholesterolemia G8 BROTHER, , Age:67 G8 BROTHER G8 BROTHER G8 SISTER Hypertension 19 MOTHER, G8 BROTHER G8 SISTER Myocardial infarction G8 BROTHER, , Age:67 G8 BROTHER G8 SISTER Respiratory disorder G8 BROTHER, Thyroid disease G8 SISTER No Family History of: AIDS Abdominal aortic aneurysm Centre's disease Alcoholism Alzheimer's disease Aphasia Asthma Cancer of mouth Colon cancer Congenital disease Congenital heart disease Cystic fibrosis Dementia Drug abuse Dysphasia Fibrocystic disease of breast Gastroenteritis Glaucoma Infertility Kidney disease Neoplasm Not obtainable due to adoption Osteoporosis Parkinson's disease Prostate cancer Psychosocial problem Seizure disorder Severe allergy Tuberculosis Visual disorder Allergies and Home Medications Allergies Coded Allergies: amiodarone (Verified Allergy, Severe, 03/13/19) lorazepam (Verified Allergy, Unknown, 03/13/19) scopolamine (Verified Allergy, Unknown, 03/13/19) Home Medications Albuterol Sulfate 2.5 Mg/0.5 Ml Vial.neb, 2.5 MG INH Q8H PRN for SHORTNESS OF BREATH, (Reported) Aspirin 81 Mg Tablet.dr, 81 MG PO DAILY, (Reported) Bimatoprost 2.5 Ml Drops, 1 DROP OD HS, (Reported) Budesonide/Formoterol Fumarate 10.2 Gm Hfa.aer.ad, 2 PUFF IH BID, (Reported) Chlorhexidine Gluconate 473 Ml Mouthwash, 5-10 ML MT BID, (Reported) RINSE AND SPIT TWICE DAILY Cholecalciferol (Vitamin D3) 50 Mcg Capsule, 50 MCG PO DAILY, (Reported) Clobetasol Propionate 15 Gm Cream..g., 1 APPLIC TOP BID, (Reported) MIXES WITH MOSTURIZER (EURICIN OR VANICREAM) AND APPLIES TO THE LEFT ARM AND SPOT ON CHEST TWICE DAILY Cyanocobalamin (Vitamin B-12) 2,500 Mcg Tablet, 2,500 MCG PO DAILY, (Reported) Digoxin 250 Mcg Tablet, 250 MCG PO DAILY, (Reported) Furosemide 40 Mg Tablet, 40 MG PO DAILY, (Reported) Guaifenesin 600 Mg Tab.er.12h, 600 MG PO BID PRN for CONGESTION, (Reported) Levothyroxine Sodium 75 Mcg Tablet, 75 MCG PO DAILY, (Reported) Lisinopril 5 Mg Tablet, 5 MG PO DAILY, (Reported) Metoprolol Succinate 50 Mg Tab.er.24h, 50 MG PO DAILY, (Reported) Metronidazole 45 Gm Gel..gram., 1 APPLIC TD DAILY PRN for BREAKOUT, (Reported) APPLIES TO THE FOREHEAD Montelukast Sodium 10 Mg Tablet, 10 MG PO HS, (Reported) Phenobarbital 64.8 Mg Tablet, 129.6 MG PO HS, (Reported) TAKES 2 (64.8MG) TABS TO EQUAL 129.6MG Phenytoin Sodium Extended 100 Mg Capsule, 300 MG PO 1800, (Reported) TAKES 2 (100MG) CAPS IN THE MORNING AND 3 (100MG) CAPS AT 1800 Phenytoin Sodium Extended 100 Mg Capsule, 200 MG PO DAILY, (Reported) TAKES 2 (100MG) CAPS IN THE MORNING AND 3 (100MG) CAPS AT 1800 Polyethylene Glycol 3350 17 Gm Powd.pack, 17 GM PO DAILY, (Reported) Pyridoxine HCl 25 Mg Tablet, 25 MG PO DAILY, (Reported) Simvastatin 10 Mg Tablet, 10 MG PO HS, (Reported) Patient Home Medication List Home Medication List Reviewed: Yes Physical Exam-Cardiology Physical Exam Vital Signs/I&O 11/03/19 11/03/19 11/03/19 04:00 08:00 12:00 Temp 37.2 36.7 37.0 Pulse 77 94 98 Resp 20 20 22 B/P (MAP) 131/65 (87) 153/71 (98) 153/73 (99) Pulse Ox 92 90 95 O2 Delivery Nasal Cannula Nasal Cannula Nasal Cannula O2 Flow Rate 1.50 1.50 1.50 11/03/19 00:00 Intake Total 210 ml Output Total 1900 ml Balance -1690 ml Capillary Refill : Less Than 3 Seconds Constitutional: AAO x 3, well-developed, well-nourished HEENT: PERRL, hearing is well preserved, oral hygience is good Neck: No carotid bruit; carotid pulses are 2 + bilaterally Respiratory: No accessory muscle use, No respiratory distress; chest expansion is symmetric, chest is bilaterally symmetric, crackles (lower lobes bilat), rhonchi (scattered), other (frequent, lose cough) Cardiovascular: regular rate-rhythm; No JVD; S1 and S2 Gastrointestinal: No tender; soft, round, audible bowel sounds Extremities: no lower extremity edema bilateral Neurologic/Psychiatric: grossly intact (moves all extremiteis) Skin: No rash on exposed areas, No ulcerations on exposed areas; other (fragile skin intergrity with multiple bruises to arms bilat) Data Review Labs Laboratory Tests 11/02/19 16:35: White Blood Count 7.5, Red Blood Count 4.12L, Hemoglobin 13.0L, Hematocrit 39L, Mean Corpuscular Volume 94, Mean Corpuscular Hemoglobin 32, Mean Corpuscular Hemoglobin Concent 33, Red Cell Distribution Width 14.1, Platelet Count 177, Mean Platelet Volume 10.3, Neutrophils (%) (Auto) 79H, Lymphocytes (%) (Auto) 9L , Monocytes (%) (Auto) 11, Eosinophils (%) (Auto) 2, Basophils (%) (Auto) 0, Neutrophils # (Auto) 5.9, Lymphocytes # (Auto) 0.6L, Monocytes # (Auto) 0.8, Eosinophils # (Auto) 0.2, Basophils # (Auto) 0.0, D-Dimer 1.43H, Sodium Level 136, Potassium Level 4.4, Chloride Level 102, Carbon Dioxide Level 25, Anion Gap 9, Blood Urea Nitrogen 22H, Creatinine 1.00, Estimat Glomerular Filtration Rate > 60, BUN/Creatinine Ratio 22, Glucose Level 106H, Calcium Level 8.8, Corrected Calcium 8.8, Total Bilirubin 0.3, Aspartate Amino Transf (AST/SGOT) 43H, Alanine Aminotransferase (ALT/SGPT) 40, Alkaline Phosphatase 195H, Troponin I 0.029H, B- Type Natriuretic Peptide 479.4H, Total Protein 8.7H, Albumin 4.0 11/02/19 18:30: Troponin I 0.041H, Digoxin Level 0.69L 11/03/19 06:18: B-Type Natriuretic Peptide 613.6H 11/03/19 10:20: White Blood Count 8.1, Red Blood Count 4.38, Hemoglobin 13.8, Hematocrit 41, Mean Corpuscular Volume 94, Mean Corpuscular Hemoglobin 32, Mean Corpuscular Hemoglobin Concent 33, Red Cell Distribution Width 14.2, Platelet Count 181, Mean Platelet Volume 10.5H, Neutrophils (%) (Auto) 87H, Lymphocytes (%) (Auto) 4L, Monocytes (%) (Auto) 10, Eosinophils (%) (Auto) 0, Basophils (%) (Auto) 0, Neutrophils # (Auto) 7.0, Lymphocytes # (Auto) 0.3L, Monocytes # (Auto) 0.8, Eosinophils # (Auto) 0.0, Basophils # (Auto) 0.0, Sodium Level 135, Potassium Level 4.4, Chloride Level 100, Carbon Dioxide Level 24, Anion Gap 11, Blood Urea Nitrogen 30H, Creatinine 1.12, Estimat Glomerular Filtration Rate > 60, BUN/Creatinine Ratio 27, Glucose Level 143H, Calcium Level 9.6, Troponin I 0.057H, Digoxin Level 0.44L, Procalcitonin 0.10H Microbiology 11/02/19 Influenza Types A,B Antigen ([facility]) - Final, Complete Laboratory Tests 11/02/19 16:35 11/03/19 10:20 A/P-Cardiology Assessment/Admission Diagnosis Acute on chronic systolic CHF Mildly elevated troponin likely r/t transient hypoxia and CHF: Type 2 SD URI - management per medical services Chronic tiredness and fatigue, likely multifactorial, see below Coronary artery disease with a history of coronary artery bypass surgery several years ago. Last cardiac catheterization was in December 2009. It showed severe [place] coronary artery disease, including mid-vessel occlusion of the right coronary and the left circumflex and severe stenosis in the mid left anterior descending artery. There was patent saphenous vein graft to distal right co ronary, patent saphenous vein graft to obtuse marginal, patent left internal mammary artery graft to mid left anterior descending artery. He underwent successful percutaneous intervention and stenting to the proximal and mid right coronary artery and a large right ventricular branch with drug-eluting stents (Promus 2.5 x 12 and Promus 2.5 x 23 proximal to distal, slightly overlapping). Since his coronary stenting of December 2009, he has not had any recurrence of angina pectoris. Last myocardial perfusion imaging of December 2018 showed inferior and lateral wall myocardial infarctions without significant ischemia. Marked cardiomegaly. Inferior and lateral wall akinesis. Global hypokinesis. LVEF 8% Ischemic cardiomyopathy with varied LVEF of 8-30% by various measurements over the course of the last several years. Echo 11/03/19 marked enlargement of LV, mod enlargement of LA, LVEF 20-25%, mod MR & TR RVSP approx 43 mmHg. Defibrillator implantation for prophylaxis against sudden cardiac . ICD discharge occurred on 04/12/14 at 2:24 am to treat VF. None since. Device is functioning normally. It reached VI on Apr 14, 2015 and was replaced on 05/10/15 and site does not show evidence of hematoma or inflammation. It is functioning normally per interrogation of 08/12/19 Intolerance to Amiodarone d/t dizziness/weakness when taking this medication per patient and spouse. He refuses therapy with antiarrhythmics, including amiodarone Dyslipidemia. 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 EEG per September 21, [address] Tyson was abnormal, but without clear epileptiform activity (done during a hospitalization of Sep 2014 at [facility] and requested by Dr Barrientos). Carotid arterial disease, approx 50% R ICA stenosis, less than 40% L ICA stenosis per u/s of September 2019 Gastroesophageal reflux. History of mildly elevated alkaline phosphatase followed by his family physcian. H/o intermittent AST/ALT elevation, possibly due to statin therapy. Reactive airways disease. Depression/anxiety Nocturnal hypoxemia, but no MAGUI on sleep studies of a few years ago Back pain, managed by Dr Knowles. Recent CT lumbar spine w/o contrast ordered by Dr Knowles (01/02/17): neural froaminal stenosis of L5-S1, bilat renal lesions that could not be adequately characterized and for which he has had u/s at the same office on 01/17/17, abd ao atherosclerosis Segmental pressures of December 2016: mod disease involving the distal arterial circulation of the left leg. No c/o claudication of the left leg Aorta u/s of December 2016: No evidence of AAA Poor balance of undetermined etiology, chronic, managed by pcp Discussion and Recomendations Shortness of breath appears multifactorial: ac on ch systolic CHF, resp tract infection, gen weakness/malaise/deconditioning Treat CHF with diuretics Continue ASA d/t known h/o CAD Monitor lab closely and replace electrolytes as indicated Digoxin level Continue home medications including BB, ANTHONY (-) and statin URI/bronchitis - management per Medical services We would like to thank Medical services for this consult Further recs will be based on his hospital course I have spoken with pt and his spouse regarding plan of care Clinical Quality Measures DVT/VTE Risk/Contraindication: Risk Factor Score Per Nursin RFS Level Per Nursing on Admit: 4+=Very High DANNIELLE BRAUN MD FACP FACC CCDS Nov 03, 2019 15:54
[2019-11-03] MEDS ORDERED: RT-ALBUTEROL/IPRATROPIUM 3 ML (DUONEB) VIAL INH PRN (16:00)
[2019-11-03] MEDS: PHENYTOIN 100 MG (DILANTIN) CAP PO SCH (17:52)
[2019-11-03] MEDS ORDERED: cefTRIAXone FOR IV USE 1,000 MG in WATER (STERILE) FOR INJECTION 10 ML IV SCH (20:00)
[2019-11-03] MEDS: SIMvastatin 10 MG (ZOCOR) TAB PO SCH (20:07)
[2019-11-03] MEDS: MONTELUKAST 10 MG (SINGULAIR) TAB PO SCH (20:07)
[2019-11-03] MEDS: SYMBICORT 160/4.5 MCG INHALER 6 GM (NON-FORMULARY) IH SCH (20:10)
[2019-11-03] MEDS: PHENobarbital 64.8 MG (1 GRAIN) TAb PO SCH (20:10)
[2019-11-03] MEDS: ENOXAPARIN 40 MG/0.4 ML (LOVENOX) SYR SC SCH (20:11)
[2019-11-03] MEDS: CHLORHEXIDINE 0.12% SOLN 15 ML (PERIDEX) UDC PO SCH (20:12)
[2019-11-03] MEDS ORDERED: LATANOPROST 0.005% (XALATAN) OPHTH SOLN 2.5 ML OD SCH (21:00)
[2019-11-03] MEDS ORDERED: NON-FORMULARY MEDICATION 1 EA EA (Budesonide/Formoterol Fumarate (Symbicort 160-4.5 Mcg In IH SCH (21:00)
[2019-11-03] MEDS ORDERED: NON-FORMULARY MEDICATION 1 EA EA (Bimatoprost (Lumigan) 1 DROP) OD SCH (21:00)
[2019-11-03] MEDS ORDERED: ACETAMINOPHEN 325 MG TABLET ONE (21:00)
[2019-11-03] MEDS ORDERED: ACETAMINOPHEN 325 MG TABLET PO PRN (21:45)
[2019-11-03] MEDS: RT-ALBUTEROL/IPRATROPIUM 3 ML (DUONEB) VIAL INH SCH (22:34)
[2019-11-04] MEDS: RT-ALBUTEROL/IPRATROPIUM 3 ML (DUONEB) VIAL INH SCH ×6 (02:08→23:16)
[2019-11-04 04:00] VITALS: BP 121/58
[2019-11-04] MEDS: predniSONE 20 MG TAB PO SCH (04:41)
[2019-11-04] MEDS: guaiFENesin/DM (ROBITUSSIN DM) 10 ML UDC PO PRN ×2 (04:42→20:34)
[2019-11-04] MEDS: LEVOTHYROXINE 75 MCG (LEVOTHROID) TABLET PO SCH (04:42)
[2019-11-04] MEDS: FUROSEMIDE 40 MG/4 ML INJ (LASIX) IV SCH (04:43)
[2019-11-04 06:42] LABS: CALCIUM 8.9 MG/DL (8.5-10.1); CREATININE SERUM 1.56 MG/DL (0.60-1.30); MAGNESIUM 2.2 MG/DL (1.6-2.4)
[2019-11-04] MEDS: SYMBICORT 160/4.5 MCG INHALER 6 GM (NON-FORMULARY) IH SCH ×2 (06:50→18:21)
[2019-11-04 08:00] VITALS: BP 112/54
[2019-11-04] MEDS ORDERED: MELATONIN 3 MG TABLET PO PRN (08:00)
[2019-11-04] MEDS ORDERED: polyethylene glycoL POWDER 17 GM (MIRALAX) PACK PO PRN (08:00)
[2019-11-04] MEDS ORDERED: ANTACID SUSP 30 ML UDC (MYLANTA) PO PRN (08:00)
[2019-11-04] MEDS ORDERED: ONDANSETRON 4 MG/2 ML (SDV) Z0FRAN IV PRN (08:00)
[2019-11-04] MEDS ORDERED: ONDANSETRON 4 MG (ZOFRAN) ORAL DISSOLVE TAB PO PRN (08:00)
[2019-11-04] MEDS ORDERED: BISACODYL 10 MG SUPP (DULCOLAX) PR PRN (08:00)
--- NOTE | 2019-11-04 09:52 | Progress Note - Cardiology ---
Cardiology SOAP Progress Note Subjective: Sitting up in bed. States he feels better this morning. Reports he was able to rest last night. Continued frequent, occ prod cough. No c/o CP or palpitations. C/O gen weakness. Objective: I&O/Vital Signs 11/04/19 11/05/19 11/05/19 11/05/19 23:16 00:40 01:59 07:38 Temp 36.8 Pulse 85 Resp 18 B/P (MAP) 118/68 (85) Pulse Ox 92 94 90 92 O2 Delivery Nasal Cannula Nasal Cannula Nasal Cannula Nasal Cannula O2 Flow Rate 3.00 2.00 3.00 3.00 11/05/19 08:00 Temp 36.6 Pulse 80 Resp 16 B/P (MAP) 138/59 (85) Pulse Ox 92 O2 Delivery Nasal Cannula O2 Flow Rate 2.00 11/05/19 00:00 Intake Total 2020 ml Output Total 850 ml Balance 1170 ml Weight (Pounds): 187 Weight (Ounces): 0.0 Weight (Calculated Kilograms): 84.924759 Constitutional: AAO x 3, well-developed, well-nourished Respiratory: No accessory muscle use, No respiratory distress; chest expansion is symmetric, chest is bilaterally symmetric, rhonchi (scattered), other (frequent, lose cough) Cardiovascular: regular rate-rhythm; No JVD; S1 and S2 Gastrointestional: No tender; soft, round, audible bowel sounds Extremities: no lower extremity edema bilateral Neurologic/Psychiatric: grossly intact (moves all extremiteis) Skin: No rash on exposed areas, No ulcerations on exposed areas; other (fragile skin intergrity with multiple bruises to arms bilat) Results/Procedures: Labs Laboratory Tests 11/05/19 05:54: Sodium Level 136, Potassium Level 4.1, Chloride Level 99, Carbon Dioxide Level 26, Anion Gap 11, Blood Urea Nitrogen 48H, Creatinine 1.21, Estimat Glomerular Filtration Rate 58, BUN/Creatinine Ratio 40, Glucose Level 79, Calcium Level 9.0 Microbiology 11/02/19 Blood Culture - Preliminary, Resulted No growth 11/02/19 Influenza Types A,B Antigen ([facility]) - Final, Complete A/P: Assessment: Acute on chronic systolic CHF - clinically improving Mildly elevated troponin likely r/t transient hypoxia and CHF: Type 2 MD URI - management per medical services Chronic tiredness and fatigue, likely multifactorial, see below Coronary artery disease with a history of coronary artery bypass surgery several years ago. Last cardiac catheterization was in December 2009. It showed severe [place] coronary artery disease, including mid-vessel occlusion of the right coronary and the left circumflex and severe stenosis in the mid left anterior descending artery. There was patent saphenous vein graft to distal right coronary, patent saphenous vein graft to obtuse marginal, patent left internal mammary artery graft to mid left anterior descending artery. He underwent successful percutaneous intervention and stenting to the proximal and mid right coronary artery and a large right ventricular branch with drug-eluting stents (Promus 2.5 x 12 and Promus 2.5 x 23 proximal to distal, slightly overlapping). Since his coronary stenting of December 2009, he has not had any recurrence of angina pectoris. Last myocardial perfusion imaging of December 2018 showed inferior and lateral wall myocardial infarctions without significant ischemia. Marked cardiomegaly. Inferior and lateral wall akinesis. Global hypokinesis. LVEF 8% Ischemic cardiomyopathy with varied LVEF of 8-30% by various measurements over the course of the last several years. Echo 11/03/19 marked enlargement of LV, mod enlargement of LA, LVEF 20-25%, mod MR & TR RVSP approx 43 mmHg. Defibrillator implantation for prophylaxis against sudden cardiac . ICD dis charge occurred on 04/12/14 at 2:24 am to treat VF. None since. Device is functioning normally. It reached VI on Apr 14, 2015 and was replaced on 05/10/15 and site does not show evidence of hematoma or inflammation. It is functioning normally per interrogation of 08/12/19 Intolerance to Amiodarone d/t dizziness/weakness when taking this medication per patient and spouse. He refuses therapy with antiarrhythmics, including amiodarone Dyslipidemia. 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 EEG per September 21, [address] Tyson was abnormal, but without clear epileptiform activity (done during a hospitalization of Sep 2014 at [facility] and requested by Dr Barrientos). Carotid arterial disease, approx 50% R ICA stenosis, less than 40% L ICA stenosis per u/s of September 2019 Gastroesophageal reflux. History of mildly elevated alkaline phosphatase followed by his family physcian. H/o intermittent AST/ALT elevation, possibly due to statin therapy. Reactive airways disease. Depression/anxiety Nocturnal hypoxemia, but no MAGUI on sleep studies of a few years ago Back pain, managed by Dr Knowles. Recent CT lumbar spine w/o contrast ordered by Dr Knowles (01/02/17): neural froaminal stenosis of L5-S1, bilat renal lesions that could not be adequately characterized and for which he has had u/s at the same office on 01/17/17, abd ao atherosclerosis Segmental pressures of December 2016: mod disease involving the distal arterial circulation of the left leg. No c/o claudication of the left leg Aorta u/s of December 2016: No evidence of AAA Poor balance of undetermined etiology, chronic, managed by pcp Plan: Shortness of breath appears multifactorial: ac on ch systolic CHF, resp tract infection, gen weakness/malaise/deconditioning Treat CHF with diuretics Continue ASA d/t known h/o CAD Monitor lab closely and replace electrolytes as indicated URI/bronchitis - management per Medical services Worsening renal function, reduce CARIE Prescott Nov 04, 2019 09:52
[2019-11-04] MEDS: ASPIRIN E.C. 81 MG (ECOTRIN) TAB PO SCH (09:56)
[2019-11-04] MEDS: CHLORHEXIDINE 0.12% SOLN 15 ML (PERIDEX) UDC PO SCH ×2 (09:57→20:40)
[2019-11-04] MEDS: meTOproloL SUCCINATE 50 MG (TOPROL XL) TAB PO SCH (09:57)
[2019-11-04] MEDS: polyethylene glycoL POWDER 17 GM (MIRALAX) PACK PO SCH (09:57)
[2019-11-04] MEDS: DIGOXIN 0.25 MG (LANOXIN) TAB PO SCH (09:57)
[2019-11-04] MEDS: lisINopril 5 MG (PRINIVIL) TABLET PO SCH (09:57)
[2019-11-04] MEDS: PHENYTOIN 100 MG (DILANTIN) CAP PO SCH ×2 (09:58→18:37)
[2019-11-04] MEDS ORDERED: PATIENT MAY USE OWN MED,SINGLE MED PO SCH (10:15)
--- NOTE | 2019-11-04 10:20 | Progress Note - Cardiology ---
Cardiology SOAP Progress Note Subjective: Shortness of breath and cough somewhat improved No cp or palp or syncope No leg swelling Gen malaise and weakness and tiredness present No focal weakness No n/v/d Objective: I&O/Vital Signs 11/03/19 11/03/19 11/04/19 11/04/19 22:34 23:30 02:08 04:00 Temp 37.2 37.2 Pulse 88 84 Resp 18 18 B/P (MAP) 130/78 (95) 121/58 (79) Pulse Ox 92 98 92 94 O2 Delivery Nasal Cannula Nasal Cannula Nasal Cannula Nasal Cannula O2 Flow Rate 3.00 3.00 3.00 4.00 3.00 11/04/19 11/04/19 11/04/19 11/04/19 04:43 05:13 06:50 08:00 Temp 37.2 37.2 36.8 Pulse 56 Resp 20 B/P (MAP) 112/54 (73) Pulse Ox 92 91 O2 Delivery Nasal Cannula Nasal Cannula O2 Flow Rate 3.00 2.00 11/03/19 23:59 Intake Total 2000 ml Output Total 1800 ml Balance 200 ml Weight (Pounds): 187 Weight (Ounces): 0.0 Weight (Calculated Kilograms): 84.480897 Constitutional: AAO x 3, well-developed, well-nourished Respiratory: No accessory muscle use, No respiratory distress; chest expansion is symmetric, chest is bilaterally symmetric, rhonchi (scattered), other (f requent, lose cough) Cardiovascular: regular rate-rhythm; No JVD; S1 and S2 Gastrointestional: No tender; soft, round, audible bowel sounds Extremities: no lower extremity edema bilateral Neurologic/Psychiatric: grossly intact (moves all extremiteis) Skin: No rash on exposed areas, No ulcerations on exposed areas; other (fragile skin intergrity with multiple bruises to arms bilat) Results/Procedures: Labs Laboratory Tests 11/03/19 10:20: White Blood Count 8.1, Red Blood Count 4.38, Hemoglobin 13.8, Hematocrit 41, Mean Corpuscular Volume 94, Mean Corpuscular Hemoglobin 32, Mean Corpuscular Hemoglobin Concent 33, Red Cell Distribution Width 14.2, Platelet Count 181, Mean Platelet Volume 10.5H, Neutrophils (%) (Auto) 87H, Lymphocytes (%) (Auto) 4L, Monocytes (%) (Auto) 10, Eosinophils (%) (Auto) 0, Basophils (%) (Auto) 0, Neutrophils # (Auto) 7.0, Lymphocytes # (Auto) 0.3L, Monocytes # (Auto) 0.8, Eosinophils # (Auto) 0.0, Basophils # (Auto) 0.0, Sodium Level 135, Potassium Level 4.4, Chloride Level 100, Carbon Dioxide Level 24, Anion Gap 11, Blood Urea Nitrogen 30H, Creatinine 1.12, Estimat Glomerular Filtration Rate > 60, BUN/Creatinine Ratio 27, Glucose Level 143H, Calcium Level 9.6, Troponin I 0.057H, Procalcitonin 0.10H, Digoxin Level 0.44L, Phenytoin (Dilantin) Level 11.9 11/04/19 05:22: Sodium Level 136, Potassium Level 4.0, Chloride Level 99, Carbon Dioxide Level 27, Anion Gap 10, Blood Urea Nitrogen 42H, Creatinine 1.56H, Estimat Glomerular Filtration Rate 43, BUN/Creatinine Ratio 27, Glucose Level 96, Calcium Level 8.9, Magnesium Level 2.2 Microbiology 11/02/19 Blood Culture - Preliminary, Resulted No growth 11/02/19 Influenza Types A,B Antigen ([facility]) - Final, Complete Laboratory Tests 11/02/19 16:35 11/03/19 10:20 11/04/19 05:22 A/P: Assessment: Acute on chronic systolic CHF - clinically improving RANDOLPH 2, likely related to intravasc volume depletion from an augmented diuretic regimen during this hospitalization Mildly elevated troponin likely r/t transient hypoxia and CHF: Type 2 UT URI - management per medical services Chronic tiredness and fatigue, likely multifactorial, see below Coronary artery disease with a history of coronary artery bypass surgery several years ago. Last cardiac catheterization was in December 2009. It showed severe [place] coronary artery disease, including mid-vessel occlusion of the right coronary and the left circumflex and severe stenosis in the mid left anterior descending artery. There was patent saphenous vein graft to distal right coronary, patent saphenous vein graft to obtuse marginal, patent left internal mammary artery graft to mid left anterior descending artery. He underwent successful percutaneous intervention and stenting to the proximal and mid right coronary artery and a large right ventricular branch with drug-eluting stents (Promus 2.5 x 12 and Promus 2.5 x 23 proximal to distal, slightly overlapping). Since his coronary stenting of December 2009, he has not had any recurrence of angina pectoris. Last myocardial perfusion imaging of December 2018 showed inferior and lateral wall myocardial infarctions without significant ischemia. Marked cardiomegaly. Inferior and lateral wall akinesis. Global hypokinesis. LVEF 8% Ischemic cardiomyopathy with varied LVEF of 8-30% by various measurements over the course of the last several years. Echo 11/03/19 marked enlargement of LV, mod enlargement of LA, LVEF 20-25%, mod MR & TR RVSP approx 43 mmHg. Defibrillator implantation for prophylaxis against sudden cardiac . ICD discharge occurred on 04/12/14 at 2:24 am to treat VF. None since. Device is functioning normally. It reached VI on Apr 14, 2015 and was replaced on 05/10/15 and site does not show evidence of hematoma or inflammation. It is functioning normally per interrogation of 08/12/19 Intolerance to Amiodarone d/t dizziness/weakness when taking this medication per patient and spouse. He refuses therapy with antiarrhythmics, including amio darone Dyslipidemia. 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 EEG per September 21, [address] Tyson was abnormal, but without clear epileptiform activity (done during a hospitalization of Sep 2014 at [facility] and requested by Dr Barrientos). Carotid arterial disease, approx 50% R ICA stenosis, less than 40% L ICA stenosis per u/s of September 2019 Gastroesophageal reflux. History of mildly elevated alkaline phosphatase followed by his family physcian. H/o intermittent AST/ALT elevation, possibly due to statin therapy. Reactive airways disease. Depression/anxiety Nocturnal hypoxemia, but no MAGUI on sleep studies of a few years ago Back pain, managed by Dr Knowles. Recent CT lumbar spine w/o contrast ordered by Dr Knowles (01/02/17): neural froaminal stenosis of L5-S1, bilat renal lesions that could not be adequately characterized and for which he has had u/s at the same office on 01/17/17, abd ao atherosclerosis Segmental pressures of December 2016: mod disease involving the distal arterial circulation of the left leg. No c/o claudication of the left leg Aorta u/s of December 2016: No evidence of AAA Poor balance of undetermined etiology, chronic, managed by pcp Plan: Reduce diuretics Monitor lab closely and replace electrolytes as indicated URI/bronchitis - management per Medical services I discussed his CV issues with him and his again today DANNIELLE BRAUN MD FACP FACC CCDS Nov 04, 2019 10:20
--- NOTE | 2019-11-04 11:03 | Progress Note - Hospitalist ---
Subjective HPI/CC On Admission Date Seen by Provider: Nov 04, 2019 Time Seen by Provider: 09:10 Nirav Reddy is an 79-year-old male with past medical history of hypertension, hyperlipidemia, atrial fibrillation, COPD, hypothyroidism, seizure disorder, coronary artery disease, heart failure with reduced ejection fraction, who presented with shortness of breath. He reports that he has been having shortness of breath for some time. He has also had a dry cough. He denies any fevers or chills. He is unsure of any positional component with his dyspnea. He denies any chest pain. He denies any abdominal pain, nausea, or vomiting. He has no other complaints or concerns at this time. Subjective/Events-last exam he reports no new complaints or concerns this morning. He denies any shortness of breath. He has a chronic cough which is unchanged. He denies any fevers or chills. He denies any abdominal pain, nausea, or vomiting. He reports feeling weak. Objective Exam Vital Signs Vital Signs Date Time Temp Pulse Resp B/P (MAP) Pulse Ox O2 Delivery O2 Flow Rate FiO2 11/04/19 08:00 36.8 56 20 112/54 (73) 91 Nasal Cannula 2.00 11/03/19 15:49 28 Capillary Refill : Less Than 3 SecondsLess Than 3 Seconds General Appearance: No Apparent Distress, Chronically ill Respiratory: No Respiratory Distress, Wheezing, Other (wearing nasal cannula) Cardiovascular: Regular Rate, Rhythm, No Edema, No Murmur Gastrointestinal: Normal Bowel Sounds, Non Tender, Soft Extremity: Normal Inspection, Non Tender, No Pedal Edema Neurologic/Psychiatric: Alert, Oriented x3, Normal Mood/Affect, Motor Weakness Skin: Normal Color, Warm/Dry Results/Procedures Lab Laboratory Tests 11/04/19 05:22 Patient resulted labs reviewed. Imaging: Reviewed Imaging Report Assessment/Plan Assessment and Plan Assess & Plan/Chief Complaint Acute on chronic heart failure with reduced ejection fraction Acute respiratory failure with hypoxia COPD with acute exacerbation Coronary artery disease Elevated troponin RANDOLPH on CKD Cardiology consulted, appreciate assistance creatinine mildly elevated today Decreased diuretic dose continue steroids and breathing treatments Supplemental oxygen as needed Debility PT/OT consulted IRF consult Hypertension Hyperlipidemia Atrial fibrillation Seizure disorder Continue home meds once med rec complete DVT prophylaxis: Lovenox Diagnosis/Problems Diagnosis/Problems (1) Acute on chronic HFrEF (heart failure with reduced ejection fraction) Status: Acute (2) COPD exacerbation Status: Acute (3) Debility Status: Acute (4) Acute kidney injury superimposed on chronic kidney disease Status: Acute Clinical Quality Measures DVT/VTE Risk/Contraindication: Risk Factor Score Per Nursin RFS Level Per Nursing on Admit: 4+=Very High CALI BUCKLEY MD Nov 04, 2019 11:03
--- NOTE | 2019-11-04 11:20 | Occupational Therapy Eval ---
OT Evaluation-General/PLF Medical Diagnosis Admission Date Nov 02, 2019 at 18:19 Medical Diagnosis: SOB, acute on chronic CHF Onset Date: Nov 02, 2019 Therapy Diagnosis Therapy Diagnosis: Decreased ADL skills Height/Weight Height (Feet): 6 Height (Inches): 0 Weight (Pounds): 187 Weight (Ounces): 0.0 Precautions Precautions/Isolations: Fall Prevention, Standard Precautions Referral Physician: Alexa Kang MD Referral Reason: Activity Tolerance, Self Care, Evaluation/Treatment, Strengthening/ROM Medical History Pertinent Medical History: CVA, Heart Failure, HTN, Hypothroidism Additional Medical History HTN, hyperlipidemia, a fib, COPD, hypothyroidism, seizure disorder, heart failure with CABG, CVA, depression/ anxiety Current History Pt admits from ER with SOB/ acute on chronic CHF Reviewed History: Yes Social History Home: Single Level Current Living Status: Significant Other ADL-Prior Level of Function SCALE: Activities may be completed with or without assistive devices. 5-Uqzluhuiou-dgczwna completes the activity by him/herself with no assistance from a helper. 5-Set-up or Clean-up Assistance-helper sets up or cleans up; patient completes activity. [place] assists only prior to or following the activity. 4-Supervision or Touching Assistance-helper provides verbal cues and/or touching/steadying and/or contact guard assistance as patient completes activity. Assistance may be provided throughout the activity or intermittently. 3-Partial/Moderate Assistance-helper does LESS THAN HALF the effort. [place] lifts, holds or supports trunk or limbs, but provides less than half the effort. 2-Substantial/Maximal Assistance-helper does MORE THAN HALF the effort. [place] lifts or holds trunk or limbs and provides more than half the effort. 0-Wrubpcevg-vvdugc does ALL the effort. Patient does none of the effort to complete the activity. Or, the assistance of 2 or more helpers is required for the patient to complete the activity. If activity was not attempted, code reason: 7-Patient Refused. 9-Not Applicable-not attempted and the patient did not perform the activity before the current illness, exacerbation or injury. 10-Not Attempted due to Environmental Limitations-(lack of equipment, weather restraints, etc.). 88-Not Attempted due to Medical Conditions or Safety Concerns. ADL PLOF Comments Pt and state pt able to complete all activities with IND. Later, pt states he is unable to zip pants and requires assist in/out of shower. Self Care: Needed Some Help Functional Cognition: Independent DME/Equipment Comments Pt has walk-in tub with built in shower bench, [address] Self: Yes OT Current Status Subjective Pt seen in bed, present through session. Pt agrees to eval/ treat. Pt denies pain, states tired but not weaker than normal. Mental Status/Objective Patient Orientation: Person, Place, Situation Attachments: [place] Catheter, Oxygen (3L currently, wears at night at home.) Current Glasses/Contacts: Yes Hearing Aids: No Dentures/Partials: Yes Upper Extremity ROM R WFL L shoulder flexion to ~90*, AAROM (use of RUE) to full range. Upper Extremity Coordination WLF BUE Upper Extremity Sensation WFL BUE Upper Extremity Strength WFL RUE Decreased LUE ADL-Treatment Eating (QC): 5 On/Off Footwear (QC): 4 (SBA) Other Treatments Pt seen in bed, pt denies OOB at first. Pt denies pain, pt and provide detailed hx, pt and must be redirected to original questions multiple times through session. Pt states brain biopsy lead to weakness/ coordination issues in L arm, has been going to outpatient OT, pt and have multiple questions regarding shoulder function. Pt educated on acute OT role and pt's ability to complete activities at home. Pt states difficulty with zipping jeans so primarily wear sweats, completes all ADLs with mod I but requires assist from daughter in/out of tub. States current falls.Pt able to showering tub with IND. Pt begins getting out of bed, educated on safety and need of gait belt and socks. Pt completes socks EOB which pt reached with SBA. PT comes in and takes over session. Education OT Patient Education: Instructions to caregiver, Modified ADL techniques, Purpose of tx/functional activities, Safety issues Teaching Recipient: Patient Teaching Methods: Demonstration, Discussion Response to Teaching: Verbalize Understanding, Return Demonstration OT Mcfp Goals [employer] Consultant Goals Time Frame: Nov 18, 2019 Eating (QC): 6 Oral Hygiene (QC): 6 Toileting Hygiene (QC): 6 Shower/Bathe Self (QC): 5 Upper Body Dressing (QC): 6 Lower Body Dressing (QC): 6 On/Off Footwear (QC): 6 Additional Goals: 1-Demonstrate ADL Tasks, 2-Verbalize Understanding, 3- ImproveStrength/Drew 1=Demonstrate adherence to instructed precautions during ADL tasks. 2=Patient will verbalize/demonstrate understanding of assistive devices/modifications for ADL. 3=Patient will improve strength/tolerance for activity to enable patient to perform ADL's. OT Education/Plan Problem List/Assessment Assessment: Decreased Activ Tolerance, Decreased UE Strength, Impaired I ADL's, Impaired Self-Care Skills Discharge Recommendations Plan/Recommendations: Continue POC Therapy Discharge Recommendati: Intermittent Supervision, Home & Family Treatment Plan/Plan of Care Treatment,Training & Education: Yes Patient would benefit from OT for education, treatment and training to promote independence in ADL's, mobility, safety and/or upper extremity function for ADL's. Plan of Care: ADL Retraining, Caregiver Training, Functional Mobility, Group Exercise/Act as Ind, UE Funct Exercise/Act Treatment Duration: Nov 18, 2019 Frequency: 5 times per week Estimated Hrs Per Day: .25 hour per day Rehab Potential: Fair Time/GCodes Start Time: 10:24 Stop Time: 10:40 Total Time Billed (hr/min): 16 Billed Treatment Time 1, EVL (16) MAYNOR GUTHRIE OTR Nov 04, 2019 11:20
--- NOTE | 2019-11-04 11:36 | Physical Therapy Evaluation ---
PT Evaluation-General Medical Diagnosis Admission Date Nov 02, 2019 at 18:19 Medical Diagnosis: CHF Onset Date: Nov 02, 2019 Therapy Diagnosis Therapy Diagnosis: Deconditioning Height/Weight Height (Feet): 6 Height (Inches): 0 Weight (Pounds): 187 Weight (Ounces): 0.0 Precautions Precautions/Isolations: Fall Prevention, Standard Precautions Weight Bear Status Right Lower Extremity: Right Weight Bearing/Tolerated Left Lower Extremity: Left Weight Bearing/Tolerated Referral Physician: Jorge Luis Reason for Referral: Evaluation/Treatment Medical History Pertinent Medical History: CABG, COPD, CVA, HTN Additional Medical History Skin cancer, depression Current History Patient presented to ER SOA. Reviewed History: Yes Social History Home: Single Level Current Living Status: Spouse Entry Into Home: Level Entry Prior Prior Level of Function SCALE: Activities may be completed with or without assistive devices. 7-Stpmvpmjww-tezdptu completes the activity by him/herself with no assistance from a helper. 5-Set-up or Clean-up Assistance-helper sets up or cleans up; patient completes activity. [place] assists only prior to or following the activity. 4-Supervision or Touching Assistance-helper provides verbal cues and/or touching/steadying and/or contact guard assistance as patient completes activity. Assistance may be provided throughout the activity or intermittently. 3-Partial/Moderate Assistance-helper does LESS THAN HALF the effort. [place] lifts, holds or supports trunk or limbs, but provides less than half the effort. 2-Substantial/Maximal Assistance-helper does MORE THAN HALF the effort. [place] lifts or holds trunk or limbs and provides more than half the effort. 4-Nijvoehnw-kwcdtm does ALL the effort. Patient does none of the effort to complete the activity. Or, the assistance of 2 or more helpers is required for the patient to complete the activity. If activity was not attempted, code reason: 7-Patient Refused. 9-Not Applicable-not attempted and the patient did not perform the activity before the current illness, exacerbation or injury. 10-Not Attempted due to Environmental Limitations-(lack of equipment, weather restraints, etc.). 88-Not Attempted due to Medical Conditions or Safety Concerns. Bed Mobility: 6 Transfers (B,C,W/C): 6 Gait: 4 Indoor Mobility (Ambulation): Needed Some Help Prior Devices Use: Walker PT Evaluation-Current Subjective Patient agreeable to therapy at this time. Pt/Family Goals "to breathe better" Objective Patient Orientation: Person, Place, Time, Situation Attachments: Oxygen (2L) ROM/Strength ROM Lower Extremities WNL BLE Strength Lower Extremities 4 / 5 gross BLE Integumentary/Posture Integumentary See nursing notes. Sensory Vision: Functional Hearing: Impaired Sensation Right Lower Extremit: Intact Sensation Left Lower Extremity: Intact Transfers Sit to Stand (QC): 4 Chair/Fbs-ll-Hrtms Xfer(QC): 4 Gait Does the Patient Walk?: Yes Mode of Locomotion: Walk Anticipated Mode of Locomotion: Walk Walk 10 feet (QC): 4 Walk 50 ft with 2 Turns(QC): 4 Walk 150 ft (QC): 4 Distance: 150' Gait Assistive Device: FWW Comments/Gait Description CGA for safety. Patient is unsteady at times during ambulation and walks with wide MARI, patient left foot tends to drift outward and hit walker. Wheelchair Training Does the Pt Use a Wheelchair?: No Balance Sitting Static: Good Sitting Dynamic: Good Standing Static: Fair Standing Dynamic: Fair Treatment BLE seated exercises x 20: ankle pumps, LAQ, marching. Assessment/Needs Patient tolerates exercises well. patient is unstable at times during ambulation and his left foot tends to drift outward and run into his walker. Patient will benefit from short term PT to get to maximum LOF. Patient in recliner with call light and bedside table within reach. Rehab Potential: Fair PT [employer] Technical Goals Alf Goals PT [employer] Technical Goals Time Frame: Nov 11, 2019 Roll Left & Right (QC): 6 Sit to Lying (QC): 6 Lying-Sitting on Side/Bed(QC): 6 Sit to Stand (QC): 6 Chair/Jqu-qe-Tmwoi Xfer(QC): 6 Does the Patient Walk: Yes Walk 10 feet (QC): 6 Walk 50ft with 2 Turns (QC): 5 Walk 150 ft (QC): 5 PT Plan Problem List Problem List: Activity Tolerance, Functional Strength, Safety, Balance, Gait, Transfer, Bed Mobility, ROM Treatment/Plan Treatment Plan: Continue Plan of Care Treatment Plan: Bed Mobility, Education, Functional Activity Drew, Functional Strength, Gait, Safety, Therapeutic Exercise, Transfers Treatment Duration: Nov 11, 2019 Frequency: 5 times per week Estimated Hrs Per Day: .25 hour per day Patient and/or Family Agrees t: Yes Safety Risks/Education Patient Education: Gait Training, Transfer Techniques, Correct Positioning, Safety Issues Teaching Recipient: Patient, Family Teaching Methods: Demonstration, Discussion Response to Teaching: Reinforcement Needed Discharge Recommendations Plan Patient will perform bed mobility and transfer training, balance and endurance training, functional strengthening, stair training, gait training, and education, to improve functional mobility and independence at home. Therapy Discharge Recommendati: Home & Family Time/GCodes Time In: 1040 Time Out: 1105 Total Billed Treatment Time: 25 Total Billed Treatment 1 visit EVL 25 NATALIE KHANNA PT Nov 04, 2019 11:35
[2019-11-04 12:00] VITALS: BP 119/61
[2019-11-04 16:00] VITALS: BP 124/62
[2019-11-04] MEDS: FUROSEMIDE 40 MG/4 ML INJ (LASIX) IVP SCH (18:37)
[2019-11-04] MEDS: MONTELUKAST 10 MG (SINGULAIR) TAB PO SCH (20:34)
[2019-11-04] MEDS: SIMvastatin 10 MG (ZOCOR) TAB PO SCH (20:36)
[2019-11-04] MEDS: PHENobarbital 64.8 MG (1 GRAIN) TAb PO SCH (20:40)
[2019-11-04] MEDS: ENOXAPARIN 40 MG/0.4 ML (LOVENOX) SYR SC SCH (20:40)
[2019-11-04] MEDS: CLOBETASOL PROPIONATE 0.05% TOP SCH (21:00)
[2019-11-05 00:40] VITALS: BP 118/68
[2019-11-05] MEDS: RT-ALBUTEROL/IPRATROPIUM 3 ML (DUONEB) VIAL INH SCH ×6 (01:59→22:28)
[2019-11-05] MEDS: FUROSEMIDE 40 MG/4 ML INJ (LASIX) IVP SCH ×2 (05:01→18:04)
[2019-11-05] MEDS: LEVOTHYROXINE 75 MCG (LEVOTHROID) TABLET PO SCH (05:01)
[2019-11-05] MEDS: predniSONE 20 MG TAB PO SCH (05:03)
[2019-11-05 06:42] LABS: CREATININE SERUM 1.21 MG/DL (0.60-1.30); POTASSIUM 4.1 MMOL/L (3.6-5.0)
[2019-11-05] MEDS: SYMBICORT 160/4.5 MCG INHALER 6 GM (NON-FORMULARY) IH SCH ×2 (07:38→18:16)
[2019-11-05 08:00] VITALS: BP 138/59
[2019-11-05] MEDS: PHENYTOIN 100 MG (DILANTIN) CAP PO SCH ×3 (10:02→18:07)
[2019-11-05] MEDS: DIGOXIN 0.25 MG (LANOXIN) TAB PO SCH (10:03)
[2019-11-05] MEDS: meTOproloL SUCCINATE 50 MG (TOPROL XL) TAB PO SCH (10:03)
[2019-11-05] MEDS: lisINopril 5 MG (PRINIVIL) TABLET PO SCH (10:03)
[2019-11-05] MEDS: ASPIRIN E.C. 81 MG (ECOTRIN) TAB PO SCH (10:03)
[2019-11-05] MEDS: polyethylene glycoL POWDER 17 GM (MIRALAX) PACK PO SCH (10:04)
[2019-11-05] MEDS: CLOBETASOL PROPIONATE 0.05% TOP SCH ×2 (10:04→20:56)
[2019-11-05] MEDS: CHLORHEXIDINE 0.12% SOLN 15 ML (PERIDEX) UDC PO SCH ×2 (10:05→20:56)
--- NOTE | 2019-11-05 10:31 | Progress Note - Cardiology ---
Cardiology SOAP Progress Note Subjective: Sitting up in bed. More SOB this morning. No c/o CP or palpitations. C/O gen weakness. C/O frequent lose cough. Spouse at the bedside. Objective: I&O/Vital Signs 11/05/19 11/05/19 11/05/19 11/05/19 07:38 08:00 08:07 14:14 Temp 36.6 Pulse 80 Resp 16 B/P (MAP) 138/59 (85) Pulse Ox 92 92 90 O2 Delivery Nasal Cannula Nasal Cannula Nasal Cannula Nasal Cannula O2 Flow Rate 3.00 2.00 4.00 3.00 11/04/19 23:59 Intake Total 2020 ml Output Total 850 ml Balance 1170 ml Weight (Pounds): 187 Weight (Ounces): 0.0 Weight (Calculated Kilograms): 84.102977 Constitutional: AAO x 3, well-developed, well-nourished Respiratory: No accessory muscle use, No respiratory distress; chest expansion is symmetric, chest is bilaterally symmetric, rhonchi (scattered), other (frequent, lose cough; coarse) Cardiovascular: regular rate-rhythm; No JVD; S1 and S2 Gastrointestional: No tender; soft, round, audible bowel sounds Extremities: no lower extremity edema bilateral Neurologic/Psychiatric: grossly intact (moves all extremiteis) Skin: No rash on exposed areas, No ulcerations on exposed areas; other (fragile skin intergrity with multiple bruises to arms bilat) Results/Procedures: Labs Laboratory Tests 11/05/19 05:54: Sodium Level 136, Potassium Level 4.1, Chloride Level 99, Carbon Dioxide Level 26, Anion Gap 11, Blood Urea Nitrogen 48H, Creatinine 1.21, Estimat Glomerular Filtration Rate 58, BUN/Creatinine Ratio 40, Glucose Level 79, Calcium Level 9.0 Microbiology 11/02/19 Blood Culture - Preliminary, Resulted No growth 11/02/19 Influenza Types A,B Antigen ([facility]) - Final, Complete A/P: Assessment: Acute on chronic systolic CHF - clinically improving RANDOLPH 2, likely related to intravasc volume depletion from an augmented diuretic regimen during this hospitalization Mildly elevated troponin likely r/t transient hypoxia and CHF: Type 2 [place] URI - management per medical services Chronic tiredness and fatigue, likely multifactorial, see below Coronary artery disease with a history of coronary artery bypass surgery several years ago. Last cardiac catheterization was in December 2009. It showed severe [place] coronary artery disease, including mid-vessel occlusion of the right coronary and the left circumflex and severe stenosis in the mid left anterior descending artery. There was patent saphenous vein graft to distal right coronary, patent saphenous vein graft to obtuse marginal, patent left internal mammary artery graft to mid left anterior descending artery. He underwent successful percutaneous intervention and stenting to the proximal and mid right coronary artery and a large right ventricular branch with drug-eluting stents (Promus 2.5 x 12 and Promus 2.5 x 23 proximal to distal, slightly overlapping). Since his coronary stenting of December 2009, he has not had any recurrence of angina pectoris. Last myocardial perfusion imaging of December 2018 showed inferior and lateral wall myocardial infarctions without significant ischemia. Marked cardiomegaly. Inferior and lateral wall akinesis. Global hypokinesis. LVEF 8% Ischemic cardiomyopathy with varied LVEF of 8-30% by various measurements over the course of the last several years. Echo 11/03/19 marked enlargement of LV, mod enlargement of LA, LVEF 20-25%, mod MR & TR RVSP approx 43 mmHg. Defibrillator implantation for prophylaxis against sudden cardiac . ICD discharge occurred on 04/12/14 at 2:24 am to treat VF. None since. Device is functioning normally. It reached VI on Apr 14, 2015 and was replaced on 05/10/15 and site does not show evidence of hematoma or inflammation. It is functioning normally per interrogation of 08/12/19 Intolerance to Amiodarone d/t dizziness/weakness when taking this medication per patient and spouse. He refuses therapy with antiarrhythmics, including amiodarone Dyslipidemia. 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 EEG per September 21, [address] Tyson was abnormal, but without clear epileptiform activity (done during a hospitalization of Sep 2014 at [facility] and requested by Dr Barrientos). Carotid arterial disease, approx 50% R ICA stenosis, less than 40% L ICA stenosis per u/s of September 2019 Gastroesophageal reflux. History of mildly elevated alkaline phosphatase followed by his family physcian. H/o intermittent AST/ALT elevation, possibly due to statin therapy. Reactive airways disease. Depression/anxiety Nocturnal hypoxemia, but no MAGUI on sleep studies of a few years ago Back pain, managed by Dr Knowles. Recent CT lumbar spine w/o contrast ordered by Dr Knowles (01/02/17): neural froaminal stenosis of L5-S1, bilat renal lesions that could not be adequately characterized and for which he has had u/s at the same office on 01/17/17, abd ao atherosclerosis Segmental pressures of December 2016: mod disease involving the distal arterial circulation of the left leg. No c/o claudication of the left leg Aorta u/s of December 2016: No evidence of AAA Poor balance of undetermined etiology, chronic, managed by pcp Plan: Give additional dose of diuretics today - according to I&O he is positive fluid balance of nearly 2 L Monitor lab closely and replace electrolytes as indicated URI/bronchitis - management per Medical services We have discussed his CV issues with him and his again today Gen weakness - continue PT/ IRU eval per medical services CARIE PENN Nov 05, 2019 10:31
[2019-11-05] MEDS ORDERED: FUROSEMIDE 40 MG/4 ML INJ (LASIX) IVP NR (10:45)
--- NOTE | 2019-11-05 11:45 | Physical Therapy Daily Note ---
PT Daily Note-Current Subjective Patient is agreeable to therapy at this time. Appearance Patient in recliner with call light and bedside table within reach. present. Mental Status Patient Orientation: Person, Place, Time, Situation Attachments: IV Transfers SCALE: Activities may be completed with or without assistive devices. 0-Efpedyntix-irnngoz completes the activity by him/herself with no assistance from a helper. 5-Set-up or Clean-up Assistance-helper sets up or cleans up; patient completes activity. [place] assists only prior to or following the activity. 4-Supervision or Touching Assistance-helper provides verbal cues and/or touching/steadying and/or contact guard assistance as patient completes activity. Assistance may be provided throughout the activity or intermittently. 3-Partial/Moderate Assistance-helper does LESS THAN HALF the effort. [place] lifts, holds or supports trunk or limbs, but provides less than half the effort. 2-Substantial/Maximal Assistance-helper does MORE THAN HALF the effort. [place] lifts or holds trunk or limbs and provides more than half the effort. 8-Acqzxeecn-vtvfnn does ALL the effort. Patient does none of the effort to complete the activity. Or, the assistance of 2 or more helpers is required for the patient to complete the activity. If activity was not attempted, code reason: 7-Patient Refused. 9-Not Applicable-not attempted and the patient did not perform the activity before the current illness, exacerbation or injury. 10-Not Attempted due to Environmental Limitations-(lack of equipment, weather restraints, etc.). 88-Not Attempted due to Medical Conditions or Safety Concerns. Roll Left & Right (QC): 6 Sit to Lying (QC): 6 Lying to Sitting/Side of Bed(Q: 6 Sit to Stand (QC): 4 Chair/Eaz-kn-Efeym Xfer(QC): 4 Weight Bearing Right Lower Extremity: Right Weight Bearing/Tolerated Left Lower Extremity: Left Weight Bearing/Tolerated Gait Training Does the Patient Walk?: Yes Distance: 150' Walk 10 feet (QC): 4 Walk 50 ft with 2 Turns(QC): 4 Walk 150 ft (QC): 4 Gait Persons Needed: 1 Gait Assistive Device: FWW CGA for safety. Patient need assist to get left hand on walker, once it was there patient was able to hold his arm there. Wheelchair Training Does the Pt Use a Wheelchair?: No Assessment Current Status: Good Progress Patient is unsteady at times during ambulation. Patient requires assistance to get left hand on walker but once there he able to hold his hand there. After ambulation patient is SOB with O2 in place and struggling to catch breath, but recovers after seating for a minute. PT Assisted Goals Caterer'S Aide Goals PT Assisted Goals Time Frame: Nov 11, 2019 Roll Left & Right (QC): 6 Sit to Lying (QC): 6 Lying-Sitting on Side/Bed(QC): 6 Sit to Stand (QC): 6 Chair/Jko-ub-Oxyqb Xfer(QC): 6 Does the Patient Walk: Yes Walk 10 feet (QC): 6 Walk 50ft with 2 Turns (QC): 5 Walk 150 ft (QC): 5 PT Plan Problem List Problem List: Activity Tolerance, Functional Strength, Safety, Balance, Gait, Transfer, Bed Mobility, ROM Treatment/Plan Treatment Plan: Continue Plan of Care Treatment Plan: Bed Mobility, Education, Functional Activity Drew, Functional Strength, Gait, Safety, Therapeutic Exercise, Transfers Treatment Duration: Nov 11, 2019 Frequency: 5 times per week Estimated Hrs Per Day: .25 hour per day Patient and/or Family Agrees t: Yes Safety Risks/Education Patient Education: Gait Training, Transfer Techniques Teaching Recipient: Patient Response to Teaching: Reinforcement Needed Time/GCodes Time In: 1028 Time Out: 1044 Total Billed Treatment Time: 16 Total Billed Treatment 1 visit GT 16 VITOR MADRIGAL PT Nov 05, 2019 11:45
--- NOTE | 2019-11-05 13:06 | Progress Note - Cardiology ---
Cardiology SOAP Progress Note Subjective: More short of breath today Has been drinking large amounts of fluid thinking that is 'healty' No cp or palp or syncope Gen malaise and weakness No n/v/d Objective: I&O/Vital Signs 11/05/19 11/05/19 11/05/19 01:59 07:38 08:00 Temp 36.6 Pulse 80 Resp 16 B/P (MAP) 138/59 (85) Pulse Ox 90 92 92 O2 Delivery Nasal Cannula Nasal Cannula Nasal Cannula O2 Flow Rate 3.00 3.00 2.00 11/05/19 00:00 Intake Total 2020 ml Output Total 850 ml Balance 1170 ml Weight (Pounds): 187 Weight (Ounces): 0.0 Weight (Calculated Kilograms): 84.978499 Constitutional: AAO x 3, well-developed, well-nourished Respiratory: No accessory muscle use, No respiratory distress; chest expansion is symmetric, chest is bilaterally symmetric, rhonchi (scattered), other (frequent, lose cough; coarse) Cardiovascular: regular rate-rhythm; No JVD; S1 and S2 Gastrointestional: No tender; soft, round, audible bowel sounds Extremities: no lower extremity edema bilateral Neurologic/Psychiatric: grossly intact (moves all extremiteis) Skin: No rash on exposed areas, No ulcerations on exposed areas; other (fragile skin intergrity with multiple bruises to arms bilat) Results/Procedures: Labs Laboratory Tests 11/05/19 05:54: Sodium Level 136, Potassium Level 4.1, Chloride Level 99, Carbon Dioxide Level 26, Anion Gap 11, Blood Urea Nitrogen 48H, Creatinine 1.21, Estimat Glomerular Filtration Rate 58, BUN/Creatinine Ratio 40, Glucose Level 79, Calcium Level 9.0 Microbiology 11/02/19 Blood Culture - Preliminary, Resulted No growth 11/02/19 Influenza Types A,B Antigen ([facility]) - Final, Complete Laboratory Tests 11/04/19 05:22 11/05/19 05:54 A/P: Assessment: Acute on chronic systolic CHF - worsening over last 24 hours probably due to c onsumption of large amounts of fluid RANDOLPH 2, likely related to intravasc volume depletion from an augmented diuretic regimen during this hospitalization Mildly elevated troponin likely r/t transient hypoxia and CHF: Type 2 [place] URI - management per medical services Chronic tiredness and fatigue, likely multifactorial, see below Coronary artery disease with a history of coronary artery bypass surgery several years ago. Last cardiac catheterization was in December 2009. It showed severe [place] coronary artery disease, including mid-vessel occlusion of the right coronary and the left circumflex and severe stenosis in the mid left anterior descending artery. There was patent saphenous vein graft to distal right coronary, patent saphenous vein graft to obtuse marginal, patent left internal mammary artery graft to mid left anterior descending artery. He underwent successful percutaneous intervention and stenting to the proximal and mid right coronary artery and a large right ventricular branch with drug-eluting stents (Promus 2.5 x 12 and Promus 2.5 x 23 proximal to distal, slightly overlapping). Since his coronary stenting of December 2009, he has not had any recurrence of angina pectoris. Last myocardial perfusion imaging of December 2018 showed inferior and lateral wall myocardial infarctions without significant ischemia. Marked cardiomegaly. Inferior and lateral wall akinesis. Global hypokinesis. LVEF 8% Ischemic cardiomyopathy with varied LVEF of 8-30% by various measurements over the course of the last several years. Echo 11/03/19 marked enlargement of LV, mod enlargement of LA, LVEF 20-25%, mod MR & TR RVSP approx 43 mmHg. Defibrillator implantation for prophylaxis against sudden cardiac . ICD discharge occurred on 04/12/14 at 2:24 am to treat VF. None since. Device is functioning normally. It reached VI on Apr 14, 2015 and was replaced on 05/10/15 and site does not show evidence of hematoma or inflammation. It is functioning normally per interrogation of 08/12/19 Intolerance to Amiodarone d/t dizziness/weakness when taking this medication per patient and spouse. He refuses therapy with antiarrhythmics, including amiodarone Dyslipidemia. 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 EEG per September 21, [address] Tyson was abnormal, but without clear epileptiform activity (done during a hospitalization of Sep 2014 at [facility] and requested by Dr Barrientos). Carotid arterial disease, approx 50% R ICA stenosis, less than 40% L ICA stenosis per u/s of September 2019 Gastroesophageal reflux. History of mildly elevated alkaline phosphatase followed by his family physcian. H/o intermittent AST/ALT elevation, possibly due to statin therapy. Reactive airways disease. Depression/anxiety Nocturnal hypoxemia, but no MAGUI on sleep studies of a few years ago Back pain, managed by Dr Knowles. Recent CT lumbar spine w/o contrast ordered by Dr Knowles (01/02/17): neural froaminal stenosis of L5-S1, bilat renal lesions that could not be adequately characterized and for which he has had u/s at the same office on 01/17/17, abd ao atherosclerosis Segmental pressures of December 2016: mod disease involving the distal arterial circulation of the left leg. No c/o claudication of the left leg Aorta u/s of December 2016: No evidence of AAA Poor balance of undetermined etiology, chronic, managed by pcp Plan: I had a long and detailed discussion with him and his today Since the goal of treatment of decomp CHF is to have a net loss of fluids in the short term, drinking large amounts of fluid poses a problem He has been drinking large amount of fluid under the impression that was the 'healthy' thing to do. We had a detailed discussion about this issue Give additional dose of diuretics today - according to I&O he is positive fluid balance of nearly 2 L Monitor lab closely and replace electrolytes as indicated URI/bronchitis - management per Medical services Gen weakness - continue PT/ IRU eval per medical services DANNIELLE BRAUN MD FACP FAC CCDS Nov 05, 2019 13:06
--- NOTE | 2019-11-05 13:38 | Occ Therapy Progress Note ---
Therapy Progress Note 1323 Attempted to see pt but he had just gotten his lunch. NOY PRESTON OT Nov 05, 2019 13:38
--- NOTE | 2019-11-05 13:55 | Progress Note - Hospitalist ---
Subjective HPI/CC On Admission Date Seen by Provider: Nov 05, 2019 Time Seen by Provider: 10:30 Nirav Reddy is an 79-year-old male with past medical history of hypertension, hyperlipidemia, atrial fibrillation, COPD, hypothyroidism, seizure disorder, coronary artery disease, heart failure with reduced ejection fraction, who presented with shortness of breath. He reports that he has been having shortness of breath for some time. He has also had a dry cough. He denies any fevers or chills. He is unsure of any positional component with his dyspnea. He denies any chest pain. He denies any abdominal pain, nausea, or vomiting. He has no other complaints or concerns at this time. Subjective/Events-last exam he reports no new complaints or concerns. He continues to feel weak. He denies any fevers or chills. He denies any chest pain. He denies any abdominal pain, nausea, or vomiting. He has been eating and drinking well. Objective Exam Vital Signs Vital Signs Date Time Temp Pulse Resp B/P (MAP) Pulse Ox O2 Delivery O2 Flow Rate FiO2 11/05/19 08:07 Nasal Cannula 4.00 11/05/19 08:00 36.6 80 16 138/59 (85) 92 11/03/19 15:49 28 Capillary Refill : Less Than 3 SecondsLess Than 3 Seconds General Appearance: No Apparent Distress, Chronically ill Respiratory: No Respiratory Distress, Crackles, Wheezing Cardiovascular: Regular Rate, Rhythm, No Edema, No Murmur Gastrointestinal: Normal Bowel Sounds, Non Tender, Soft Extremity: Normal Inspection, Non Tender, No Pedal Edema Neurologic/Psychiatric: Alert, Oriented x3, No Motor/Sensory Deficits, Normal Mood/Affect Skin: Normal Color, Warm/Dry Results/Procedures Lab Laboratory Tests 11/05/19 05:54 Patient resulted labs reviewed. Imaging: Reviewed Imaging Report Assessment/Plan Assessment and Plan Assess & Plan/Chief Complaint Acute on chronic heart failure with reduced ejection fraction Acute respiratory failure with hypoxia COPD with acute exacerbation Coronary artery disease Elevated troponin RANDOLPH on CKD Cardiology consulted, appreciate assistance creatinine improving continue decreased dose of diuretics continue steroids and breathing treatments Supplemental oxygen as needed, will likely need daytime oxygen going home Debility PT/OT consulted planning for IRF transfer tomorrow Hypertension Hyperlipidemia Atrial fibrillation Seizure disorder Continue home meds once med rec complete DVT prophylaxis: Lovenox Diagnosis/Problems Diagnosis/Problems (1) Acute on chronic HFrEF (heart failure with reduced ejection fraction) Status: Acute (2) COPD exacerbation Status: Acute (3) Debility Status: Acute (4) Acute kidney injury superimposed on chronic kidney disease Status: Acute Clinical Quality Measures DVT/VTE Risk/Contraindication: Risk Factor Score Per Nursin RFS Level Per Nursing on Admit: 4+=Very High CALI BUCKLEY MD Nov 05, 2019 13:55
--- NOTE | 2019-11-05 14:02 | NUR ---
IRF Evaluation Order received to evaluate patient for the ARU. Chart review complete and findings discussed with Dr. Barrientos - patient accepted. CM/SS notified. Met with patient and spouse to discuss details specific to rehabilitation program. Patient agreeable to required therapy regimen and admission. Anticipate admission, 11/06/19. Thank you for this referral.
--- NOTE | 2019-11-05 15:20 | Occupational Ther Daily Note ---
OT Current Status-Daily Note Subjective Pt alert, sitting in recliner. Pt agrees to therapy. No c/o pain. Mental Status/Objective Patient Orientation: Person, Place, Time, Situation ADL-Treatment Therapy Code Descriptions/Definitions Functional [place] Measure: 0=Not Assessed/NA 4=Minimal Assistance 1=Total Assistance 5=Supervision or Setup 2=Maximal Assistance 6=Modified [place] 3=Moderate Assistance 7=Complete IndependenceSCALE: Activities may be completed with or without assistive devices. 6-Msqfatmjoi-ojpcmor completes the activity by him/herself with no assistance f rom a helper. 5-Set-up or Clean-up Assistance-helper sets up or cleans up; patient completes activity. [place] assists only prior to or following the activity. 4-Supervision or Touching Assistance-helper provides verbal cues and/or touching/steadying and/or contact guard assistance as patient completes activity. Assistance may be provided throughout the activity or intermittently. 3-Partial/Moderate Assistance-helper does LESS THAN HALF the effort. [place] lifts, holds or supports trunk or limbs, but provides less than half the effort. 2-Substantial/Maximal Assistance-helper does MORE THAN HALF the effort. [place] lifts or holds trunk or limbs and provides more than half the effort. 3-Iefmdmdxw-njybsk does ALL the effort. Patient does none of the effort to complete the activity. Or, the assistance of 2 or more helpers is required for the patient to complete the activity. If activity was not attempted, code reason: 7-Patient Refused. 9-Not Applicable-not attempted and the patient did not perform the activity before the current illness, exacerbation or injury. 10-Not Attempted due to Environmental Limitations-(lack of equipment, weather restraints, etc.). 88-Not Attempted due to Medical Conditions or Safety Concerns. Other Treatment Pt completed L UE AAROM exercises. Pt demonstrated good L shldr elevation/depression AROM. Assist to guide through elbow flexion then shldr flexion, 10x's. With gravity eliminated, pt able to complete wrist flex/ext 10x's, sup/pron 15x's, finger flex/ext 15 x's. Pt fatigues quickly during exercises. After session, pt sitting in recliner with call light/phone in reach. All needs met in room. OT Prison Goals Prison Goals Time Frame: Nov 18, 2019 Eating (QC): 6 Oral Hygiene (QC): 6 Toileting Hygiene (QC): 6 Shower/Bathe Self (QC): 5 Upper Body Dressing (QC): 6 Lower Body Dressing (QC): 6 On/Off Footwear (QC): 6 Additional Goals: 1-Demonstrate ADL Tasks, 2-Verbalize Understanding, 3- ImproveStrength/Drew 1=Demonstrate adherence to instructed precautions during ADL tasks. 2=Patient will verbalize/demonstrate understanding of assistive devices/modifications for ADL. 3=Patient will improve strength/tolerance for activity to enable patient to perform ADL's. OT Education/Plan Problem List/Assessment Assessment: Decreased Activ Tolerance, Impaired Self-Care Skills, Restricted Funct UE ROM Discharge Recommendations Plan/Recommendations: Continue POC Treatment Plan/Plan of Care Patient would benefit from OT for education, treatment and training to promote independence in ADL's, mobility, safety and/or upper extremity function for ADL's. Plan of Care: ADL Retraining, Caregiver Training, Functional Mobility, Group E xercise/Act as Ind, UE Funct Exercise/Act Treatment Duration: Nov 18, 2019 Frequency: 5 times per week Estimated Hrs Per Day: .25 hour per day Rehab Potential: Fair Time/GCodes Start Time: 14:30 Stop Time: 14:55 Total Time Billed (hr/min): 25 Billed Treatment Time 1 visit-NM 2 (25 min) JERARDO ONOFRE Nov 05, 2019 15:20
[2019-11-05 16:00] VITALS: BP 134/62
[2019-11-05] MEDS: ENOXAPARIN 40 MG/0.4 ML (LOVENOX) SYR SC SCH (20:56)
[2019-11-05] MEDS: MONTELUKAST 10 MG (SINGULAIR) TAB PO SCH (20:56)
[2019-11-05] MEDS: SIMvastatin 10 MG (ZOCOR) TAB PO SCH (20:56)
[2019-11-05] MEDS: PHENobarbital 64.8 MG (1 GRAIN) TAb PO SCH (20:56)
[2019-11-05 23:30] VITALS: BP 138/64
[2019-11-06] MEDS: RT-ALBUTEROL/IPRATROPIUM 3 ML (DUONEB) VIAL INH SCH ×3 (02:45→10:48)
[2019-11-06 06:03] LABS: CALCIUM 8.7 MG/DL (8.5-10.1); CREATININE SERUM 1.24 MG/DL (0.60-1.30); POTASSIUM 4.1 MMOL/L (3.6-5.0)
[2019-11-06] MEDS: predniSONE 20 MG TAB PO SCH (06:11)
[2019-11-06] MEDS: FUROSEMIDE 40 MG/4 ML INJ (LASIX) IVP SCH (06:11)
[2019-11-06] MEDS: LEVOTHYROXINE 75 MCG (LEVOTHROID) TABLET PO SCH (06:11)
[2019-11-06] MEDS: SYMBICORT 160/4.5 MCG INHALER 6 GM (NON-FORMULARY) IH SCH (06:30)
[2019-11-06 08:00] VITALS: BP 126/67
[2019-11-06] MEDS: lisINopril 5 MG (PRINIVIL) TABLET PO SCH (08:12)
[2019-11-06] MEDS: meTOproloL SUCCINATE 50 MG (TOPROL XL) TAB PO SCH (08:12)
[2019-11-06] MEDS: ASPIRIN E.C. 81 MG (ECOTRIN) TAB PO SCH (08:12)
[2019-11-06] MEDS: DIGOXIN 0.25 MG (LANOXIN) TAB PO SCH (08:12)
[2019-11-06] MEDS: polyethylene glycoL POWDER 17 GM (MIRALAX) PACK PO SCH (08:12)
[2019-11-06] MEDS: CHLORHEXIDINE 0.12% SOLN 15 ML (PERIDEX) UDC PO SCH (08:13)
[2019-11-06] MEDS: CLOBETASOL PROPIONATE 0.05% TOP SCH (08:13)
--- NOTE | 2019-11-06 09:41 | Progress Note - Cardiology ---
Cardiology SOAP Progress Note Subjective: Sitting up in bed sleeping. Awakens easily. States he did not sleep well last night. No c/o CP. States he felt "wheezy" when ambulating to the BR this morning. Objective: I&O/Vital Signs Weight (Pounds): 187 Weight (Ounces): 0.0 Weight (Calculated Kilograms): 84.904041 Constitutional: AAO x 3, well-developed, well-nourished Respiratory: No accessory muscle use, No respiratory distress; chest expansion is symmetric, chest is bilaterally symmetric, rhonchi (scattered), other (good air entry) Cardiovascular: regular rate-rhythm; No JVD; S1 and S2 Gastrointestional: No tender; soft, round, audible bowel sounds Extremities: no lower extremity edema bilateral Neurologic/Psychiatric: grossly intact (moves all extremiteis) Skin: No rash on exposed areas, No ulcerations on exposed areas; other (fragile skin intergrity with multiple bruises to arms bilat) Results/Procedures: Labs Microbiology 11/02/19 Blood Culture - Final, Complete No growth 11/02/19 Influenza Types A,B Antigen ([facility]) - Final, Complete A/P: Assessment: Acute on chronic systolic CHF - worsening over last 24 hours probably due to consumption of large amounts of fluid RANDOLPH 2, likely related to intravasc volume depletion from an augmented diuretic regimen during this hospitalization Mildly elevated troponin likely r/t transient hypoxia and CHF: Type 2 [place] URI - management per medical services Chronic tiredness and fatigue, likely multifactorial, see below Coronary artery disease with a history of coronary artery bypass surgery several years ago. Last cardiac catheterization was in December 2009. It showed severe lumbee coronary artery disease, including mid-vessel occlusion of the right coronary and the left circumflex and severe stenosis in the mid left anterior descending artery. There was patent saphenous vein graft to distal right coronary, patent saphenous vein graft to obtuse marginal, patent left internal mammary artery graft to mid left anterior descending artery. He underwent successful percutaneous intervention and stenting to the proximal and mid right coronary artery and a large right ventricular branch with drug-eluting stents (Promus 2.5 x 12 and Promus 2.5 x 23 proximal to distal, slightly overlapping). Since his coronary stenting of December 2009, he has not had any recurrence of angina pectoris. Last myocardial perfusion imaging of December 2018 showed inferior and lateral wall myocardial infarctions without significant ischemia. Marked cardiomegaly. Inferior and lateral wall akinesis. Global hypokinesis. LVEF 8% Ischemic cardiomyopathy with varied LVEF of 8-30% by various measurements over the course of the last several years. Echo 11/03/19 marked enlargement of LV, mod enlargement of LA, LVEF 20-25%, mod MR & TR RVSP approx 43 mmHg. Defibrillator implantation for prophylaxis against sudden cardiac . ICD discharge occurred on 04/12/14 at 2:24 am to treat VF. None since. Device is functioning normally. It reached VI on Apr 14, 2015 and was replaced on 05/10/15 and site does not show evidence of hematoma or inflammation. It is functioning normally per interrogation of 08/12/19 Intolerance to Amiodarone d/t dizziness/weakness when taking this medication per patient and spouse. He refuses therapy with antiarrhythmics, including amiodarone Dyslipidemia. 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 EEG per September 21, [address] Tyson was abnormal, but without clear epileptiform activity (done during a hospitalization of Sep 2014 at [facility] and requested by Dr Barrientos). Carotid arterial disease, approx 50% R ICA stenosis, less than 40% L ICA stenosis per u/s of September 2019 Gastroesophageal reflux. History of mildly elevated alkaline phosphatase followed by his family physcian. H/o intermittent AST/ALT elevation, possibly due to statin therapy. Reactive airways disease. Depression/anxiety Nocturnal hypoxemia, but no MAGUI on sleep studies of a few years ago Back pain, managed by Dr Knowles. Recent CT lumbar spine w/o contrast ordered by Dr Knowles (01/02/17): neural froaminal stenosis of L5-S1, bilat renal lesions that could not be adequately characterized and for which he has had u/s at the same office on 01/17/17, abd ao atherosclerosis Segmental pressures of December 2016: mod disease involving the distal arterial circulation of the left leg. No c/o claudication of the left leg Aorta u/s of December 2016: No evidence of AAA Poor balance of undetermined etiology, chronic, managed by pcp Plan: Lengthy discussion with his again today regarding tx plan Change IV Lasix to oral starting tomorrow Monitor lab closely and replace electrolytes as indicated URI/bronchitis - management per Medical services Gen weakness - accepted to [facility] Nov 06, 2019 09:41
--- NOTE | 2019-11-06 16:06 | Discharge Summary ---
Discharge Summary Hospital Course Problems/Dx: (1) Acute on chronic HFrEF (heart failure with reduced ejection fraction) Status: Acute (2) COPD exacerbation Status: Acute (3) Debility Status: Acute (4) Acute kidney injury superimposed on chronic kidney disease Status: Acute Hospital Course Date of Admission: Nov 02, 2019 at 18:19 Admission Diagnosis : acute on chronic heart failure with reduced ejection fraction Family Physician/Provider: Date of Discharge: 11/06/19 Discharge Diagnosis: acute on chronic heart failure with reduced ejection fraction Hospital Course: Nirav Reddy is an 79-year-old male who was admitted with acute on chronic heart failure with reduced ejection fraction. He was treated with IV diuresis and responded well. Cardiology was consulted and assisted with his care. He was debilitated and was transferred to the inpatient rehabilitation facility for ongoing therapies. Labs and Pending Lab Test: Laboratory Tests 11/06/19 05:23: Sodium Level 135, Potassium Level 4.1, Chloride Level 97L, Carbon Dioxide Level 27, Anion Gap 11, Blood Urea Nitrogen 54H, Creatinine 1.24, Estimat Glomerular Filtration Rate 56, BUN/Creatinine Ratio 44, Glucose Level 111H, Calcium Level 8.7 Microbiology 11/02/19 Blood Culture - Preliminary, Resulted No growth 11/02/19 Influenza Types A,B Antigen ([place]) - Final, Complete Home Meds Active Reported Albuterol Sulfate 2.5 Mg/0.5 Ml Vial.neb 2.5 Mg INH Q4 -6H PRN WHEN PT IS IN A COPB FLARE HE TAKING A TREAMENT EVERY 4-6 HOURS *3-4 TIMES DAILY) Vitamin B12 (Cyanocobalamin (Vitamin B-12)) 2,500 Mcg Tablet 2,500 Mcg PO DAILY Vitamin B-6 (Pyridoxine HCl) 25 Mg Tablet 25 Mg PO DAILY Vitamin D3 (Cholecalciferol (Vitamin D3)) 50 Mcg Capsule 50 Mcg PO DAILY Mucinex (Guaifenesin) 600 Mg Tab.er.12h 600 Mg PO BID PRN Metronidazole 45 Gm Gel..gram. 1 Applic TD DAILY PRN APPLIES TO THE FOREHEAD Clobetasol Propionate 15 Gm Cream..g. 1 Applic TOP BID MIXES WITH MOSTURIZER (EURICIN OR VANICREAM) AND APPLIES TO THE LEFT ARM AND SPOT ON CHEST TWICE DAILY Miralax (Polyethylene Glycol 3350) 17 Gm Powd.pack 17 Gm PO DAILY Lumigan (Bimatoprost) 2.5 Ml Drops 1 Drop OD HS Chlorhexidine Gluconate 473 Ml Mouthwash 5-10 Ml MT BID RINSE AND SPIT TWICE DAILY Symbicort 160-4.5 Mcg Inhaler (Budesonide/Formoterol Fumarate) 10.2 Gm Hfa.aer.ad 2 Puff IH BID Montelukast Sodium 10 Mg Tablet 10 Mg PO HS Furosemide 40 Mg Tablet 40 Mg PO DAILY Phenobarbital 64.8 Mg Tablet 129.6 Mg PO HS TAKES 2 (64.8MG) TABS TO EQUAL 129.6MG Lisinopril 5 Mg Tablet 5 Mg PO DAILY Metoprolol Succinate 50 Mg Tab.er.24h 50 Mg PO DAILY Digoxin 250 Mcg Tablet 250 Mcg PO DAILY Phenytoin Sodium Extended 100 Mg Capsule 200 Mg PO DAILY TAKES 2 (100MG) CAPS IN THE MORNING AND 3 (100MG) CAPS AT 1800 Phenytoin Sodium Extended 100 Mg Capsule 300 Mg PO 1800 TAKES 2 (100MG) CAPS IN THE MORNING AND 3 (100MG) CAPS AT 1800 Aspirin EC (Aspirin) 81 Mg Tablet.dr 81 Mg PO DAILY Simvastatin 10 Mg Tablet 10 Mg PO HS Levothyroxine Sodium 75 Mcg Tablet 75 Mcg PO DAILY Assessment/Pt Instructions take medications as prescribed. Participate in therapies. Discharge Planning: <30 minutes discharge planning Discharge Instructions Discharge Diet: Low Sodium Diet Activity as Tolerated: Yes Discharge Physical Examination Vital Signs Vital Signs Date Time Temp Pulse Resp B/P (MAP) Pulse Ox O2 Delivery O2 Flow Rate FiO2 11/06/19 10:49 90 Nasal Cannula 4.00 11/06/19 08:00 36.9 93 22 126/67 (86) 11/03/19 15:49 28 General Appearance: No Apparent Distress, WD/WN Respiratory: Lungs Clear, Normal Breath Sounds, No Respiratory Distress Cardiovascular: Regular Rate, Rhythm, No Edema, No Murmur Gastrointestinal: Normal Bowel Sounds, Non Tender, Soft Extremity: Normal Inspection, Non Tender, No Pedal Edema Neurologic/Psychiatric: Alert, Oriented x3, No Motor/Sensory Deficits, Normal Mood/Affect Allergies: Coded Allergies: amiodarone (Verified Allergy, Severe, 03/13/19) lorazepam (Verified Allergy, Unknown, 03/13/19) scopolamine (Verified Allergy, Unknown, 03/13/19) Discharge Summary Date of Admission Nov 02, 2019 at 18:19 Date of Discharge Nov 06, 2019 at 11:08 Discharge Date: Nov 06, 2019 Discharge Time: 11:08 Admission Diagnosis Acute on chronic heart failure with reduced ejection fraction Consults/Procedures Consulations Cardiology Discharge Diagnosis Acute on chronic heart failure with reduced ejection fraction (1) Acute on chronic HFrEF (heart failure with reduced ejection fraction) Status: Acute (2) COPD exacerbation Status: Acute (3) Debility Status: Acute (4) Acute kidney injury superimposed on chronic kidney disease Status: Acute Clinical Quality Measures DVT/VTE Risk/Contraindication: Risk Factor Score Per Nursin RFS Level Per Nursing on Admit: 4+=Very High CALI BUCKLEY MD Nov 06, 2019 16:06
--- NOTE | 2019-11-06 16:29 | Progress Note - Cardiology ---
Cardiology SOAP Progress Note Subjective: Somnolent at time of my exam. Wasn't able to answer questions in detail. Did not report cp or palp or syncope or shortness of breath Objective: I&O/Vital Signs 11/06/19 11/06/19 11/06/19 11/06/19 06:30 08:00 08:17 10:49 Temp 36.9 Pulse 93 Resp 22 B/P (MAP) 126/67 (86) Pulse Ox 90 90 90 O2 Delivery Nasal Cannula Nasal Cannula Nasal Cannula Nasal Cannula O2 Flow Rate 4.00 4.00 4.00 4.00 11/06/19 00:00 Intake Total 1122 ml Output Total 1925 ml Balance -803 ml Weight (Pounds): 187 Weight (Ounces): 0.0 Weight (Calculated Kilograms): [id number] Constitutional: AAO x 3, well-developed, well-nourished Respiratory: No accessory muscle use, No respiratory distress; chest expansion is symmetric, chest is bilaterally symmetric, rhonchi (scattered), other (good air entry) Cardiovascular: regular rate-rhythm; No JVD; S1 and S2 Gastrointestional: No tender; soft, round, audible bowel sounds Extremities: no lower extremity edema bilateral Neurologic/Psychiatric: grossly intact (moves all extremiteis) Skin: No rash on exposed areas, No ulcerations on exposed areas; other (fragile skin intergrity with multiple bruises to arms bilat) Results/Procedures: Labs Laboratory Tests 11/06/19 05:23: Sodium Level 135, Potassium Level 4.1, Chloride Level 97L, Carbon Dioxide Level 27, Anion Gap 11, Blood Urea Nitrogen 54H, Creatinine 1.24, Estimat Glomerular Filtration Rate 56, BUN/Creatinine Ratio 44, Glucose Level 111H, Calcium Level 8.7 Microbiology 11/02/19 Blood Culture - Preliminary, Resulted No growth 11/02/19 Influenza Types A,B Antigen ([place]) - Final, Complete Laboratory Tests 11/05/19 05:54 11/06/19 05:23 A/P: Assessment: Acute on chronic systolic CHF RANDOLPH 2, likely related to intravasc volume depletion from an augmented diuretic regimen during this hospitalization Mildly elevated troponin likely r/t transient hypoxia and CHF: Type 2 MA URI - management per medical services Chronic tiredness and fatigue, likely multifactorial, see below Coronary artery disease with a history of coronary artery bypass surgery several years ago. Last cardiac catheterization was in December 2009. It showed severe buck[place] coronary artery disease, including mid-vessel occlusion of the right coronary and the left circumflex and severe stenosis in the mid left anterior descending artery. There was patent saphenous vein graft to distal right coronary, patent saphenous vein graft to obtuse marginal, patent left internal mammary artery graft to mid left anterior descending artery. He underwent successful percutaneous intervention and stenting to the proximal and mid right coronary artery and a large right ventricular branch with drug-eluting stents (Promus 2.5 x 12 and Promus 2.5 x 23 proximal to distal, slightly overlapping). Since his coronary stenting of December 2009, he has not had any recurrence of angina pectoris. Last myocardial perfusion imaging of December 2018 showed inferior and lateral wall myocardial infarctions without significant ischemia. Marked cardiomegaly. Inferior and lateral wall akinesis. Global hypokinesis. LVEF 8% Ischemic cardiomyopathy with varied LVEF of 8-30% by various measurements over the course of the last several years. Echo 11/03/19 marked enlargement of LV, mod enlargement of LA, LVEF 20-25%, mod MR & TR RVSP approx 43 mmHg. Defibrillator implantation for prophylaxis against sudden cardiac . ICD discharge occurred on 04/12/14 at 2:24 am to treat VF. None since. Device is functioning normally. It reached VI on Apr 14, 2015 and was replaced on 05/10/15 and site does not show evidence of hematoma or inflammation. It is functioning normally per interrogation of 08/12/19 Intolerance to Amiodarone d/t dizziness/weakness when taking this medication per patient and spouse. He refuses therapy with antiarrhythmics, including amiodarone Dyslipidemia. 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 EEG per September 21, [address] Tyson was abnormal, but without clear epileptiform activity (done during a hospitalization of Sep 2014 at [facility] and requested by Dr Barrientos). Carotid arterial disease, approx 50% R ICA stenosis, less than 40% L ICA stenosis per u/s of September 2019 Gastroesophageal reflux. History of mildly elevated alkaline phosphatase followed by his family physcian. H/o intermittent AST/ALT elevation, possibly due to statin therapy. Reactive airways disease. Depression/anxiety Nocturnal hypoxemia, but no MAGUI on sleep studies of a few years ago Back pain, managed by Dr Knowles. Recent CT lumbar spine w/o contrast ordered by Dr Knowles (01/02/17): neural froaminal stenosis of L5-S1, bilat renal lesions that could not be adequately characterized and for which he has had u/s at the [facility] on 01/17/17, abd ao atherosclerosis Segmental pressures of December 2016: mod disease involving the distal arterial circulation of the left leg. No c/o claudication of the left leg Aorta u/s of December 2016: No evidence of AAA Poor balance of undetermined etiology, chronic, managed by pcp Plan: I discussed his CV issues with his again today Change IV Lasix to oral starting tomorrow Monitor lab closely and replace electrolytes as indicated URI/bronchitis - management per Medical services Gen weakness - accepted to DANNIELLE BOWERS MD FACP [facility] Nov 06, 2019 16:29
== END 2019-11-06 11:08 | DRG 280 ==
LOC: EDUNIT# 15:38 → ER 15:41 → 4TH 18:19
PROVIDERS: ADMIT Internal Medicine; ATTEND Internal Medicine
DX: I13.0 Hypertensive heart and chronic kidney disease with heart failure and stage 1 through stage 4 chronic kidney disease, or unspecified chronic kidney disease (principal); I50.23 Acute on chronic systolic (congestive) heart failure; I21.A1 Myocardial infarction type 2; J44.1 Chronic obstructive pulmonary disease with (acute) exacerbation; J44.0 Chronic obstructive pulmonary disease with (acute) lower respiratory infection; J96.01 Acute respiratory failure with hypoxia; N18.9 Chronic kidney disease, unspecified; J40 Bronchitis, not specified as acute or chronic; Z66 Do not resuscitate; I48.91 Unspecified atrial fibrillation; E78.5 Hyperlipidemia, unspecified; I25.10 Atherosclerotic heart disease of native coronary artery without angina pectoris; I25.5 Ischemic cardiomyopathy; G40.909 Epilepsy, unspecified, not intractable, without status epilepticus; E03.9 Hypothyroidism, unspecified; F41.9 Anxiety disorder, unspecified; F32.9 Major depressive disorder, single episode, unspecified; I08.1 Rheumatic disorders of both mitral and tricuspid valves; K21.9 Gastro-esophageal reflux disease without esophagitis; I65.23 Occlusion and stenosis of bilateral carotid arteries; I73.9 Peripheral vascular disease, unspecified; G47.36 Sleep related hypoventilation in conditions classified elsewhere; R26.89 Other abnormalities of gait and mobility; Z95.1 Presence of aortocoronary bypass graft; Z95.5 Presence of coronary angioplasty implant and graft; Z95.810 Presence of automatic (implantable) cardiac defibrillator; Z99.81 Dependence on supplemental oxygen; Z87.891 Personal history of nicotine dependence; Z86.73 Personal history of transient ischemic attack (TIA), and cerebral infarction without residual deficits
CPT/HCPCS: 36415; 51702; 71045; 71046; 71275; 80048; 80053; 80162; 80185; 83735; 83880; 84145; 84484; 85025; 85379; 87040; 87804; 93005; 93306; 94640; 94760

== ENCOUNTER 2019-11-06 08:56 | Inpatient (IN) | payer MEDICARE ==
[~2019-11-06] VITALS: Ht 182.9 cm; Wt 90.0 kg
[~2019-11-06 08:56] MED LIST changes: +ALB0.5V INH; +ASPI-983 PO; +BIMA2.5D4 OD; +BUDE10.2 IH; +CHOL2000 PO; +CLOB15CR2 TOP; +CYAN250010 PO; +DIGO250T3 PO; +FURO40TA4 PO; +GUAI600T43 PO; +LISI-556 PO; +METO50TA7 PO; +METR45GE9 TD; +MONT10TA26 PO; +NFCHLORHGL MT; +PHEN100C11 PO; +POLY17PO6 PO; +PYRI25TA3 PO
--- NOTE | 2019-11-06 11:00 | NUR ---
Nirav Reddy admitted to room 222-1, with an admitting diagnosis of debility, on 11/06/19 from [facility] via wheelchair, accompanied by staff and . NIRAV REDDY introduced to surroundings, call light, bed controls, phone, TV, temperature control, lights, meal times, smoking policy, visitor policy, side rail policy, bathrooms and showers. Patient Rights given to patient in the handbook.NIRAV REDDY verbalizes understanding that [facility] is not responsible for the loss or damage to any personal effects or valuables that are kept in the patients possession during their hospitalization. The Patient's Care Plans were discussed with the patient/ as well as Discharge Planning. NIRAV REDDY verbalizes understanding of Interdisciplinary Patient Education. Patient and/or family were informed about the Rapid Response Team and its purpose. Patient received Patient Rights Booklet, which includes Privacy Act Statement and Data Collection Information Summary.
[2019-11-06] MEDS ORDERED: diphenhydrAMINE 25 MG TAB (BENADRYL) PO PRN (11:15)
[2019-11-06] MEDS ORDERED: FLEET ENEMA ADULT 1 EA BTL PR PRN (11:15)
[2019-11-06] MEDS ORDERED: LACTULOSE SYRUP 10GM/15ML (ENULOSE) 30ML UDC PO PRN (11:15)
[2019-11-06] MEDS ORDERED: ONDANSETRON 4 MG (ZOFRAN) ORAL DISSOLVE TAB PO PRN ×2 (11:15→12:30)
[2019-11-06] MEDS ORDERED: ENOXAPARIN 40 MG/0.4 ML (LOVENOX) SYR SC SCH (11:15)
[2019-11-06] MEDS ORDERED: guaiFENesin/CODEINE (ROBITUSSIN AC) 10ML UDC PO PRN (11:15)
[2019-11-06] MEDS ORDERED: CALCIUM CARBONATE 500 MG (TUMS) TAB.CHEW PO PRN (11:15)
[2019-11-06] MEDS ORDERED: DOCUSATE SODIUM 100 MG (COLACE) CAP PO PRN (11:15)
[2019-11-06] MEDS ORDERED: ALPRAZolam 0.25 MG (XANAX) TAB PO PRN (11:15)
[2019-11-06] MEDS ORDERED: LOPERAMIDE 2 MG (IMODIUM) TABLET PO PRN (11:15)
[2019-11-06] MEDS ORDERED: MELATONIN 3 MG TABLET PO PRN ×2 (11:15→12:30)
[2019-11-06] MEDS ORDERED: BISACODYL 10 MG SUPP (DULCOLAX) PR PRN ×2 (11:15→12:30)
--- NOTE | 2019-11-06 11:57 | Physical Therapy Evaluation ---
PT Evaluation-General Medical Diagnosis Admission Date Medical Diagnosis: debility Onset Date: Nov 02, 2019 Therapy Diagnosis Therapy Diagnosis: impaired mobility, strength, endurance, balance Height/Weight Height (Feet): 6 Height (Inches): 0 Weight (Pounds): 187 Weight (Ounces): 0.0 Referral Physician: Autumn Barrientos DO Reason for Referral: Evaluation/Treatment Medical History Pertinent Medical History: CABG, COPD, CVA, HTN Additional Medical History skin CA, depression Reviewed History: Yes Social History Home: Single Level Current Living Status: Spouse Entry Into Home: Level Entry Prior Prior Level of Function SCALE: Activities may be completed with or without assistive devices. 9-Lqzarfgblw-cplvhlh completes the activity by him/herself with no assistance from a helper. 5-Set-up or Clean-up Assistance-helper sets up or cleans up; patient completes activity. [place] assists only prior to or following the activity. 4-Supervision or Touching Assistance-helper provides verbal cues and/or touching/steadying and/or contact guard assistance as patient completes activity. Assistance may be provided throughout the activity or intermittently. 3-Partial/Moderate Assistance-helper does LESS THAN HALF the effort. [place] lifts, holds or supports trunk or limbs, but provides less than half the effort. 2-Substantial/Maximal Assistance-helper does MORE THAN HALF the effort. [place] lifts or holds trunk or limbs and provides more than half the effort. 4-Jiarujwtt-dbmfuu does ALL the effort. Patient does none of the effort to complete the activity. Or, the assistance of 2 or more helpers is required for the patient to complete the activity. If activity was not attempted, code reason: 7-Patient Refused. 9-Not Applicable-not attempted and the patient did not perform the activity before the current illness, exacerbation or injury. 10-Not Attempted due to Environmental Limitations-(lack of equipment, weather restraints, etc.). 88-Not Attempted due to Medical Conditions or Safety Concerns. Bed Mobility: 6 Transfers (B,C,W/C): 6 Gait: 4 Indoor Mobility (Ambulation): Needed Some Help PT Evaluation-Current Subjective Patient in bed pre tx, agrees to PT, has no complaints of pain at rest. Pt/Family Goals "to get stronger" Objective Patient Orientation: Person, Place, Situation ROM/Strength ROM Lower Extremities WNL Strength Lower Extremities 4+/5 RLE, 4/5 LLE Sensory Vision: Wears Glasses Hearing: Functional Sensation Right Lower Extremit: Intact Sensation Left Lower Extremity: Intact Transfers Roll Left to Right (QC): 3 Sit to Lying (QC): 3 Lying to Sitting/Side of Bed(Q: 3 Sit to Stand (QC): 3 Chair/Mmj-dy-Nnuxs Xfer(QC): 4 Car Transfer (QC): 4 Patient performs bed mobility with min assist, supine <-> sit with min assist, sit <-> stand min assist, transfers CGA, car transfer CGA. Patient needs careful cues for safety and positioning, he can move impulsively. Gait Does the Patient Walk?: Yes Mode of Locomotion: Walk Anticipated Mode of Locomotion: Walk Walk 10 feet (QC): 3 Walk 50 ft with 2 Turns(QC): 3 Walk 150 ft (QC): 3 Walking 10ft/uneven surface-QC: 88 Distance: 200' Gait Assistive Device: FWW Comments/Gait Description Patient can ambulate 200' with a rolling walker with min assist. Patient is unsteady with ambulation, needs assist to help guide walker, slumped posture, wide MARI. Wheelchair Training Wheel 50 ft with 2 turns (QC): 88 Wheel 150 ft (QC): 88 Stairs 1 Step (curb) (QC): 88 4 Steps (QC): 88 12 Steps (QC): 88 Balance Sitting Static: Fair Sitting Dynamic: Fair Standing Static: Fair Standing Dynamic: Fair Picking up an Object (QC): 88 Treatment Patient bathed and dressed. Co-treated with OT due to poor patient strength and endurance, SOB with activity, left hemiparesis, the need to coordinate UE and LE during activity. Patient needs assist with standing and balance during dressing and bathing and assist with positioning. Assessment/Needs Patient has impaired mobility, strength, endurance, balance. He can be impulsive with transfers and movement in general. Patient in recliner post tx with nurse call, phone, tray, in room. Rehab Potential: Fair PT Short Term Goals Short Term Goals Time Frame: Nov 13, 2019 Roll Left & Right: 4 Sit to lyin Lying to sitting on side of be: 4 Sit to stand: 4 Chair/lvr-jk-dygge transfer: 4 Walk 10 feet: 4 Walk 50 feet with two turns: 4 Walk 150 feet: 4 PT Intermediate Goals Cultural [employer] Manager Goals PT Intermediate Goals Time Frame: Nov 27, 2019 Roll Left & Right (QC): 6 Sit to Lying (QC): 6 Lying-Sitting on Side/Bed(QC): 6 Sit to Stand (QC): 6 Chair/Uir-st-Lafqx Xfer(QC): 6 Toilet Transfer (QC): 6 Car Transfer (QC): 6 Walk 10 feet (QC): 4 Walk 50ft with 2 Turns (QC): 4 Walk 150 ft (QC): 4 Walking 10ft on Uneven Surface: 4 PT Plan Problem List Problem List: Activity Tolerance, Functional Strength, Safety, Balance, Gait, Transfer, Bed Mobility, ROM Treatment/Plan Treatment Plan: Continue Plan of Care Treatment Plan: Bed Mobility, Education, Functional Activity Drew, Functional Strength, Group Therapy, Gait, Safety, Therapeutic Exercise, Transfers Treatment Duration: Nov 27, 2019 Frequency: At least 5 of 7 days/Wk (IRF) Estimated Hrs Per Day: 1.5 hours per day Patient and/or Family Agrees t: Yes Safety Risks/Education Patient Education: Gait Training, Transfer Techniques, Correct Positioning, Safety Issues Teaching Recipient: Patient Teaching Methods: Demonstration, Discussion Response to Teaching: Reinforcement Needed Discharge Recommendations Plan Patient will perform bed mobility and transfer training, balance and endurance training, functional strengthening, stair training, gait training, and education, to improve functional mobility and independence at home. Therapy Discharge Recommendati: Home & Family Time/GCodes Time In: 1100 Time Out: 1200 Total Billed Treatment Time: 50 Total Billed Treatment 1 visit EVM 10' FA 40' PT eval from [id number], OT eval from [id number], co-treat from [id number]. PT performed bed mobility and transfers, ambulation, assist with balance and positioning during bathing and dressing. OT performed bathing, dressing assist with UE positioning and safety during activity. NATALIE KHANNA PT Nov 06, 2019 11:57
--- NOTE | 2019-11-06 11:59 | NUR ---
I SPOKE WITH THE PATIENT EARLIER IN THE WEEK WHEN HE WAS ON THE 4TH FLOOR TO COMPLETE THE MED REC. GOING THRU THE DISCHARGE ORDERS NO MEDICATIONS WERE CHANGED OR STOPPED AND THERE WERE NO NEW ORDERS. I HAVE REVIEWED THE MED REC AND NO CHANGES WERE MADE.
--- NOTE | 2019-11-06 12:05 | Occupational Therapy Eval ---
OT Evaluation-General/PLF Medical Diagnosis Admission Date Medical Diagnosis: debility Onset Date: Nov 02, 2019 Therapy Diagnosis Therapy Diagnosis: Decreased ADL function Height/Weight Height (Feet): 6 Height (Inches): 0 Weight (Pounds): 187 Weight (Ounces): 0.0 Weight Bear Status Weight Bearing Restriction: Weight Bearing/Tolerated Referral Physician: Autumn Barrientos DO Referral Reason: Activity Tolerance, Self Care, Evaluation/Treatment, Strengthening/ROM Medical History Pertinent Medical History: CABG, COPD, CVA, HTN Additional Medical History CVA, heart failure, HTN, hypothyroidism, a fib, COPD, seizure disorder, CABG Current History Pt experienced SOB/ acute on chronic CHF earlier in week, transfers to ARU on 11/06/19. Reviewed History: Yes Social History Home: Single Level Current Living Status: Spouse ADL-Prior Level of Function SCALE: Activities may be completed with or without assistive devices. 0-Wvyodwgtve-dmhluwd completes the activity by him/herself with no assistance from a helper. 5-Set-up or Clean-up Assistance-helper sets up or cleans up; patient completes activity. [place] assists only prior to or following the activity. 4-Supervision or Touching Assistance-helper provides verbal cues and/or touching/steadying and/or contact guard assistance as patient completes activity. Assistance may be provided throughout the activity or intermittently. 3-Partial/Moderate Assistance-helper does LESS THAN HALF the effort. [place] lifts, holds or supports trunk or limbs, but provides less than half the effort. 2-Substantial/Maximal Assistance-helper does MORE THAN HALF the effort. [place] lifts or holds trunk or limbs and provides more than half the effort. 2-Lxlngtvks-ycnsmg does ALL the effort. Patient does none of the effort to complete the activity. Or, the assistance of 2 or more helpers is required for the patient to complete the activity. If activity was not attempted, code reason: 7-Patient Refused. 9-Not Applicable-not attempted and the patient did not perform the activity before the current illness, exacerbation or injury. 10-Not Attempted due to Environmental Limitations-(lack of equipment, weather restraints, etc.). 88-Not Attempted due to Medical Conditions or Safety Concerns. ADL PLOF Comments Pt and states mod I in ADLs, though assist needed at times based on pt's energy level. Assist in/out of shower. Self Care: Needed Some Help Functional Cognition: Independent DME/Equipment: Bath Bench DME/Equipment Comments Pt has walk in tub with built in bench, 2WW Occupation: retired Drive Self: Yes OT Current Status Subjective Pt seen in room on acute, pt transported by OT/ PT to ARU. Pt agreeable to OT/ PT co-treat. Pt denies pain, states he has been feeling very weak. PT eval: [id number] OT eval: [id number] (10) OT/ PT co-treat: [id number] (40): Co-treat rendered due to pt's decreased strength/ balance/ SOB and multiple lines, pt's decreased attention to tasks. OT focused on UE strength/ ADL ability/ attention to task as PT focuses on functional mobility and gross motor. Mental Status/Objective Patient Orientation: Person, Place, Time, Situation Attachments: [place] Catheter, Oxygen (4L) Current Glasses/Contacts: Yes Hearing Aids: No Dentures/Partials: Yes Hand Dominance: Right Upper Extremity ROM R WFL L decreased (AROM to ~90*) Upper Extremity Coordination WFL RUE Upper Extremity Sensation WFL BUE Upper Extremity Strength WFL RUE Decreased LUE ADL-Treatment Eating (QC): 5 Oral Hygiene (QC): 5 Shower/Bathe Self (QC): 3 (assist with washing feet and bottom. CGA in stance.) Upper Body Dressing (QC): 3 (min A) Lower Body Dressing (QC): 3 (assist with threading 1/2 legs into pants/ briefs and assist with L side pulling up over hips.) On/Off Footwear (QC): 1 (TD) Toileting Hygiene (QC): 3 (Min A) Other Treatments Pt ambulates from bed (SBA), sit to stand (min A) and ambulates with 2WW down mesa to elevator with CGA. Pt completes PT eval, OT eval. Pt completes sponge bath in room. Requires redirection multiple times and cues for completion of task. Pt's present during session, states pt requires assist with L arm cream (pt's applies with TD). Pt struggles with tasks, states easier at home. Pt has many environmental distractors through session. Pt talkative, states does not remember much of yesterday and does not know why. Pt educated on OT role and ARU standards. Pt s/u for food with tray in front and call light beside pt. Pt left with , all needs met. Education OT Patient Education: Correct positioning, Instructions to caregiver, Modified ADL techniques, Purpose of tx/functional activities, Rehab process, Safety issues Teaching Recipient: Patient Teaching Methods: Demonstration, Discussion Response to Teaching: Verbalize Understanding, Return Demonstration OT Short Term Goals Short Term Goals Time Frame: Nov 13, 2019 Upper body dressin Lower body dressin OT Photo Producer Goals Shelter Goals Time Frame: Nov 20, 2019 Eating (QC): 6 Oral Hygiene (QC): 6 Toileting Hygiene (QC): 6 Shower/Bathe Self (QC): 5 Upper Body Dressing (QC): 6 Lower Body Dressing (QC): 6 On/Off Footwear (QC): 6 Additional Goals: 1-Demonstrate ADL Tasks, 2-Verbalize Understanding, 3- ImproveStrength/Drew 1=Demonstrate adherence to instructed precautions during ADL tasks. 2=Patient will verbalize/demonstrate understanding of assistive devices/modifications for ADL. 3=Patient will improve strength/tolerance for activity to enable patient to perform ADL's. OT Education/Plan Problem List/Assessment Assessment: Decreased Activ Tolerance, Decreased Safety Aware, Decreased UE Strength, Dependent Transfers, Impaired Coordination, Impaired Funct Balance, Impaired I ADL's, Impaired Self-Care Skills, Restricted Funct UE ROM Discharge Recommendations Plan/Recommendations: Continue POC Therapy Discharge Recommendati: Intermittent Supervision, Home & Family, Post Acute OT Treatment Plan/Plan of Care Treatment,Training & Education: Yes Patient would benefit from OT for education, treatment and training to promote independence in ADL's, mobility, safety and/or upper extremity function for ADL's. Plan of Care: ADL Retraining, Caregiver Training, Concurrent Therapy, Functional Mobility, Group Exercise/Act as Ind, UE Funct Exercise/Act, UE Neuro mus Re-Ed/Coord Treatment Duration: Nov 20, 2019 Frequency: At least 5 of 7 days/Wk (IRF) Estimated Hrs Per Day: 1.5 hours per day Agreement: Yes Rehab Potential: Fair Time/GCodes Start Time: 11:10 Stop Time: 12:00 Total Time Billed (hr/min): 50 Billed Treatment Time OT/ PT co-treat: [id number] (40): Co-treat rendered due to pt's decreased strength/ balance/ SOB and multiple lines, pt's decreased attention to tasks. OT focused on UE strength/ ADL ability/ attention to task as PT focuses on functional mobility and gross motor. 1, EVM ([id number]) 1, ADL 3 ([id number]) MAYNOR GUTHRIE OTR Nov 06, 2019 12:05
--- NOTE | 2019-11-06 12:17 | Progress Note ---
[facility] 11/06/19 1217: Progress Note Hospital Course and Rehab Consideration Nirav is an 79 year old oxygen dependent male that presented to the ED earlier this week with SOB that he described was greater than usual. He was admitted for acute on chronic HF. His troponins were elevated which could be attributed to transient hypoxia. His CXR showed no acute process or signs of PNA. Echo showed LVEF of 20-25, MR and TR. Patient also has a history of COPD. BNP was elevated at 613. Patient was started on steroids for COPD and on diuretics for HF. During his hospital stay he was also treated for an URI and had an RANDOLPH from intravascular volume depletion. 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 Knowles, chronic fatigue and an implantable defib device that as of 08/12/2019 was working properly. Patient was in [facility] in june for 24 days and was participating in outpatient rehab up until his hospital visit. He had a grand mal seizure in 1990 and since then he has what he describes as small seizures that only affect his face and L arm. He says this happens to him on and off and more when he is nervous. He had 3 of them when he was admitted on Saturday. Patient was admitted to the rehab floor today. He has some L UE weakness which is hindering his ability to function at 100% with ADLs such as dressing. He would benefit from strength training. Patient would also benefit from increased activity tolerance that would make him feel less chronically fatigued. Safety and fall prevention education is also a focus due to his debility at this time. AUTUMN JOY DO 11/06/195: Supervisory-Addendum Brief Verification & Attestation Participated in pt care: history, MDM, physical Personally performed: exam, history, MDM, supervision of care Care discussed with: Medical Student Procedures: n/a Results interpretation: Verified all documentation Verification and Attestation of Medical Student E/M Service A medical student performed and documented this service in my presence. I reviewed and verified all information documented by the medical student and made modifications to such information, when appropriate. I personally performed the physical exam and medical decision making. Autumn Joy Nov 06, 2019,21:04 HU MORA Nov 06, 2019 12:17 AUTUMN JOY DO Nov 06, 2019 21:05
[2019-11-06] MEDS ORDERED: ANTACID SUSP 30 ML UDC (MYLANTA) PO PRN (12:30)
[2019-11-06] MEDS ORDERED: CATHETER FLUSH 10 ML SYR IV PRN (12:30)
[2019-11-06] MEDS ORDERED: PATIENT MAY USE OWN MEDS, ALL MC SCH (12:30)
[2019-11-06] MEDS ORDERED: ACETAMINOPHEN 325 MG TABLET PO PRN (12:30)
[2019-11-06] MEDS ORDERED: PATIENT MAY USE OWN MED,SINGLE MED PO SCH (12:30)
[2019-11-06] MEDS ORDERED: guaiFENesin (MUCINEX) 600 MG TAB PO PRN (12:30)
[2019-11-06] MEDS ORDERED: ONDANSETRON 4 MG/2 ML (SDV) Z0FRAN IV PRN (12:30)
[2019-11-06] MEDS ORDERED: guaiFENesin/DM (ROBITUSSIN DM) 10 ML UDC PO PRN (12:30)
[2019-11-06] MEDS ORDERED: polyethylene glycoL POWDER 17 GM (MIRALAX) PACK PO PRN (12:30)
--- NOTE | 2019-11-06 13:11 | PM&R Post Admission Assessment ---
PM&R HP Date of Visit: Nov 06, 2019 Time of Visit: 12:30 History of Present Illness CC: Debility requiring IRF HPI: (course per RENETTA LyII: Hospital Course and Rehab Consideration Nirav is an 79 year old oxygen dependent male that presented to the ED earlier this week with SOB that he described was greater than usual. He was admitted for acute on chronic HF. His troponins were elevated which could be attributed to transient hypoxia. His CXR showed no acute process or signs of PNA. Echo showed LVEF of 20-25, MR and TR. Patient also has a history of COPD. BNP was elevated at 613. Patient was started on steroids for COPD and on diuretics for HF. During his hospital stay he was also treated for an URI and had an RANDOLPH from intravascular volume depletion. 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 Knowles, chronic fatigue and an implantable defib device that as of 08/12/2019 was working properly. Patient was in [facility] in june for 24 days and was participating in outpatient rehab up until his hospital visit. He had a grand mal seizure in 1990 and since then he has what he describes as small seizures that only affect his face and L arm. He says this happens to him on and off and more when he is nervous. He had 3 of them when he was admitted on Saturday. Patient was admitted to the rehab floor today. He has some L UE weakness which is hindering his ability to function at 100% with ADLs such as dressing. He would benefit from strength training. Patient would also benefit from increased activity tolerance that would make him feel less chronically fatigued. Safety and fall prevention education is also a focus due to his debility at this time. Patient still requiring O2 BNC and Nebs and close monitoring. Patient had been my patient meterman prior to NH transfer then he transferred to Dr Trejo. Past Kxkpllm-Hpygme-Tewrdd Hx Past Med/Social Hx: Reviewed Nursing Past Med/Soc Hx, Reviewed and Corrections made Patient Social History Marrital Status: Employed/Student: retired Alcohol Use: Denies Use Smoking Status: Former Smoker Former Smoker, Quit: Oct 14, 1989 2nd Hand Smoke Exposure: No Recent Hopitalizations: Yes Immunizations Up To Date Tetanus Booster (TDap): Less than 5yrs Pediatric: Yes Date of Pneumonia Vaccine: January 20, 2015 Date of Influenza Vaccine: May 10, 2019 Seasonal Allergies Seasonal Allergies: No Past Medical History Surgeries: CABG, Eye Surgery Respiratory: Chronic Bronchitis, COPD, Emphysema, Pneumonia Cardiac: Cardiomyopathy, Coronary Artery Disease, High Cholesterol, Hypertension, Peripheral Vascular Neurological: Neuropathy, Seizure Disorder, Stroke Reproductive: No Sexually Transmitted Disease: No Genitourinary: Bladder Infection, Renal Failure Gastrointestinal: Abdominal Hernia Musculoskeletal: Degenerate Disk Disease, Arthritis, Chronic Back Pain Hearing Impairment: Hard of Hearing Cancer: Skin Psychosocial: Depression History of Blood Disorders: No Adverse Reaction to Blood Yanes: No Family History Arthritis 19 MOTHER, Cardiovascular disease G8 BROTHER, G8 BROTHER, , Age:67 G8 BROTHER G8 SISTER Cataracts G8 BROTHER, , Age:67 G8 BROTHER Completed stroke 19 MOTHER, Deafness or hearing loss G8 BROTHER G8 BROTHER Diabetes mellitus G8 SISTER Headache disorder 19 FATHER, 19 MOTHER, G8 BROTHER, G8 BROTHER, , Age:67 G8 BROTHER G8 BROTHER G8 SISTER Hypercholesterolemia G8 BROTHER, , Age:67 G8 BROTHER G8 BROTHER G8 SISTER Hypertension 19 MOTHER, G8 BROTHER G8 SISTER Myocardial infarction G8 BROTHER, , Age:67 G8 BROTHER G8 SISTER Respiratory disorder G8 BROTHER, Thyroid disease G8 SISTER No Family History of: AIDS Abdominal aortic aneurysm Shreyas's disease Alcoholism Alzheimer's disease Aphasia Asthma Cancer of mouth Colon cancer Congenital disease Congenital heart disease Cystic fibrosis Dementia Drug abuse Dysphasia Fibrocystic disease of breast Gastroenteritis Glaucoma Infertility Kidney disease Neoplasm Not obtainable due to adoption Osteoporosis Parkinson's disease Prostate cancer Psychosocial problem Seizure disorder Severe allergy Tuberculosis Visual disorder No Pertinent Family Hx Prior Level of Function Bed Mobility: 6 Transfers: 6 Gait: 4 Indoor Mobility (Ambulation): Needed Some Help Self Care: Needed Some Help Functional Cognition: Independent Occupation: retired Drive Self: Yes Current Level of Fuctioning Roll Left to Right: 3 Sit to Lyin Lying to Sitting/Side of Bed: 3 Sit to Stand: 3 Chair/Qhh-ux-Densk Xfer: 4 Car Transfer: 4 Does the Patient Walk: Yes Mode of Locomotion: Walk Anticipated Mode of Locomotion: Walk Walk 10 feet: 3 Walk 50 ft with 2 Turns: 3 Walk 150 ft: 3 Walking 10ft on uneven surface: 88 Gait Assistive Device: FWW Wheel 50 ft with 2 turns: 88 Wheel 150 ft: 88 1 Step (curb): 88 4 Steps: 88 12 Steps: 88 Picking up an Object: 88 Eatin Oral Hygiene: 5 Shower/Bathe Self: 3 (assist with washing feet and bottom. CGA in stance.) Upper Body Dressin (min A) Lower Body Dressin (assist with threading 1/2 legs into pants/ briefs and assist with L side pulling up over hips.) On/Off Footwear: 1 (TD) Toileting Hygiene: 3 (Min A) PM&R Allergy/Meds/Data Review Allergies Coded Allergies: amiodarone (Verified Allergy, Severe, 03/13/19) lorazepam (Verified Allergy, Unknown, 03/13/19) scopolamine (Verified Allergy, Unknown, 03/13/19) Home Medications Scheduled Aspirin (Aspirin EC), 81 MG PO DAILY, (Reported) Bimatoprost (Lumigan), 1 DROP OD HS, (Reported) Budesonide/Formoterol Fumarate (Symbicort 160-4.5 Mcg Inhaler), 2 PUFF IH BID, (Reported) Chlorhexidine Gluconate (Chlorhexidine Gluconate), 5-10 ML MT BID, (Reported) Cholecalciferol (Vitamin D3) (Vitamin D3), 50 MCG PO DAILY, (Reported) Clobetasol Propionate (Clobetasol Propionate), 1 APPLIC TOP BID, (Reported) Cyanocobalamin (Vitamin B-12) (Vitamin B12), 2,500 MCG PO DAILY, (Reported) Digoxin (Digoxin), 250 MCG PO DAILY, (Reported) Furosemide (Furosemide), 40 MG PO DAILY, (Reported) Levothyroxine Sodium (Levothyroxine Sodium), 75 MCG PO DAILY, (Reported) Lisinopril (Lisinopril), 5 MG PO DAILY, (Reported) Metoprolol Succinate (Metoprolol Succinate), 50 MG PO DAILY, (Reported) Montelukast Sodium (Montelukast Sodium), 10 MG PO HS, (Reported) Phenobarbital (Phenobarbital), 129.6 MG PO HS, (Reported) Phenytoin Sodium Extended (Phenytoin Sodium Extended), 300 MG PO 1800, (Reported) Phenytoin Sodium Extended (Phenytoin Sodium Extended), 200 MG PO DAILY, (Reported) Polyethylene Glycol 3350 (Miralax), 17 GM PO DAILY, (Reported) Pyridoxine HCl (Vitamin B-6), 25 MG PO DAILY, (Reported) Simvastatin (Simvastatin), 10 MG PO HS, (Reported) Scheduled PRN Albuterol Sulfate (Albuterol Sulfate), 2.5 MG INH Q4 -6H PRN for SHORTNESS OF BREATH, (Reported) Guaifenesin (Mucinex), 600 MG PO BID PRN for CONGESTION, (Reported) Metronidazole (Metronidazole), 1 APPLIC TD DAILY PRN for BREAKOUT, (Reported) Discontinued Medications Acetaminophen (Tylenol), 650 MG PO Q4H PRN for PAIN Discontinued Reason: No Longer Taking Albuterol Sulfate (Proventil Pre-Mix Nebs (Rt)), 2.5 MG INH RTBID Discontinued Reason: Duplicate Order Aspirin (Aspirin Ec 81 Mg), 81 MG PO DAILY Discontinued Reason: Duplicate Order Cefuroxime Axetil (Ceftin), 500 MG PO BID Discontinued Reason: No Longer Taking Cholecalciferol (Vitamin D3 Tablet), 2,000 UNIT PO DAILY Discontinued Reason: Duplicate Order Digoxin (Digox), 0.25 MG PO DAILY Discontinued Reason: Duplicate Order Furosemide (Lasix Tab), 40 MG PO DAILY Discontinued Reason: Duplicate Order Guaifenesin (Mucinex), 600 MG PO BID PRN for COUGH Discontinued Reason: No Longer Taking Menthol/Lanolin/Calamine/Znox (Calmoseptine Ointment), 0 GM EXT QID Discontinued Reason: No Longer Taking Metoprolol Succinate (Toprol Xl), 50 MG PO DAILY Discontinued Reason: Duplicate Order Montelukast Sodium (Montelukast Sodium), 10 MG PO HS, (Reported) Discontinued Reason: Duplicate Order Phenobarbital (PHENobarbital Tab), 129.6 MG PO HS, (Reported) Discontinued Reason: Duplicate Order Phenytoin Sodium (Dilantin Er 100 Mg Cap), 300 MG PO WITH EVENING MEAL, (Reported) Discontinued Reason: Prescription changed [Budesonide/Formoterol Fumarate], 2 PUFF IH RTBID Discontinued Reason: Duplicate Order [Chlorhexidine Gluconate], 5 ML PO BID Discontinued Reason: Duplicate Order [Lisinopril], 5 MG PO DAILY@0900 Discontinued Reason: Duplicate Order [Polyethylene Glycol], 17 GM PO DAILY Discontinued Reason: Duplicate Order Current Medications Current Medications Reviewed Review of Systems Constitutional: see HPI, weakness EENTM: no symptoms reported Respiratory: cough, dyspnea on exertion, short of breath, wheezing Cardiovascular: no symptoms reported Gastrointestinal: loss of appetite Musculoskeletal: back pain, joint pain Skin: no symptoms reported Psychiatric/Neurological: Anxiety, Depressed, Emotional Problems, Seizure, Tingling, Tremors, Weakness Physical Exam Physical Exam Vital Signs Capillary Refill : Height, Weight, BMI Height: 6'0" Weight: 187lbs. 0.0oz. [id number]; 26.54 BMI Method:Stated General Appearance: No Apparent Distress, WD/WN, Anxious, Chronically ill, Thin Eyes: Bilateral Eye Normal Inspection, Bilateral Eye PERRL HEENT: PERRL/EOMI, Normal ENT Inspection, Pharynx Normal Neck: Full Range of Motion, Normal Inspection, Non Tender, Supple, Carotid Bruit Respiratory: Chest Non Tender, No Accessory Muscle Use, No Respiratory Distress, Crackles, Decreased Breath Sounds, Rales, Wheezing Cardiovascular: Regular Rate, Rhythm, No Edema, No Gallop, No JVD, No Murmur, Normal Peripheral Pulses Gastrointestinal: Normal Bowel Sounds, No Organomegaly, No Pulsatile Mass, Non Tender, Soft Back: Normal Inspection, No CVA Tenderness, No Vertebral Tenderness Extremity: Normal Capillary Refill, Normal Inspection, Normal Range of Motion, Non Tender, No Calf Tenderness, No Pedal Edema Neurologic/Psychiatric: Alert, Oriented x3, No Motor/Sensory Deficits, Normal Mood/Affect, paying teller II-XII Norm as Tested, Abnormal Gait, Motor Weakness (generalized all extremities) Skin: Normal Color, Warm/Dry Lymphatic: No Adenopathy PM&R Medical Assessment & Plan REHAB/MEDICAL ASSESSMENT AND PLAN: REHAB IMPAIRMENT GROUP: Debility, COPD myopathy ETIOLOGIC DIAGNOSIS: Debility, COPD myopathy The comorbidities that impact the patients function and/or functional outcome by: complex medical issues, severe COPD O2 dependence, Sz d/o, advanced age REHAB PLAN: The patient is being admitted to our comprehensive inpatient rehabilitation facility and can tolerate the intensity of service consisting of at least: 180 minutes of therapy a day, 5 out of 7 days a week Rehab treatment will consist of: PT OT will focus on ambulation and strengthening and fall risk prevention and conserve energy for COPD management The patient/family has a good understanding of our discharge process and will benefit from an interdisciplinary inpatient rehabilitation program. The patient has potential to make improvement and is in need of at least two of the following multidisciplinary therapies including but not limited to physical, occupational, speech, and prosthetics and orthotics. Additionally the patient will need services from respiratory, nutritional services, wound care, psychology, etc. (Customize this to each patient). Given the patients complex condition and risk of further medical complications, rehabilitation services cannot be safely or effectively provided at a lower level of care such as a alf facility. BARRIERS TO DISCHARGE: Severe COPD and overall weakness ESTIMATED LOS: 7 days DISPOSITION: Home with and HH RELEVANT CHANGES SINCE PREADMISSION SCREENING: I have compared the patients medical and functional status at the time of the preadmission screening and there are: no changes PROGNOSIS: Fair REHABILITATION GOALS: 1. PT OT will focus on ambulation and strengthening and fall risk prevention and conserve energy for COPD management All the above goals were reviewed with the patient and he/she is in agreement. By signing this document, I acknowledge that I have personally performed a full physical examination on this patient within 24 hours of admission to this inpatient rehabilitation facility and have determined the patient to be able to tolerate the above course of treatment at an intensive level for a reasonable period of time. I will be completing a detailed individualized Plan of Care for this patient by day #4 of the patients stay based upon the Preadmission Screen, the Post-Admission Evaluation, and the therapy evaluations. Admission Dx/Comorbidities: (1) Debility Status: Acute ICD Codes: R53.81 - Other malaise (2) Acute kidney injury superimposed on chronic kidney disease Status: Acute ICD Codes: N17.9 - Acute kidney failure, unspecified; N18.9 - Chronic kidney disease, unspecified (3) Acute on chronic HFrEF (heart failure with reduced ejection fraction) Status: Acute ICD Codes: I50.23 - Acute on chronic systolic (congestive) heart failure (4) Near syncope Status: Acute ICD Codes: R55 - Syncope and collapse (5) COPD exacerbation Status: Acute ICD Codes: J44.1 - Chronic obstructive pulmonary disease with (acute) exacerbation Assessment/Plan Assessment and Plan Assess & Plan/Chief Complaint Assessment: COPD myopathy Debility acute on chronic Severe COPD O2 dependence Hypothyroidism CHF Cardiomyopathy Pacemaker Depression Seizure d/o CVA hx Plan: Steroids Lasix DC catheter Monitor bowels RONAK JOY DO Nov 06, 2019 13:05
--- NOTE | 2019-11-06 13:38 | Physical Therapy Daily Note ---
PT Daily Note-Current Subjective Patient in recliner pre tx, agrees to PT, has no complaints of pain. Will be co-treating with OT due to poor patient mobility, balance, safety awareness, left hemiparesis, the need to coordinate UE and LE during activity. Appearance Patient in recliner post tx with nurse call, phone, tray, all needs met. Nurse and in room. Mental Status Patient Orientation: Person, Place, Situation Attachments: Oxygen Transfers SCALE: Activities may be completed with or without assistive devices. 7-Xmvmptpwsw-hrbgfbz completes the activity by him/herself with no assistance from a helper. 5-Set-up or Clean-up Assistance-helper sets up or cleans up; patient completes activity. Dexter assists only prior to or following the activity. 4-Supervision or Touching Assistance-helper provides verbal cues and/or touching/steadying and/or contact guard assistance as patient completes activity. Assistance may be provided throughout the activity or intermittently. 3-Partial/Moderate Assistance-helper does LESS THAN HALF the effort. Dexter lifts, holds or supports trunk or limbs, but provides less than half the effort. 2-Substantial/Maximal Assistance-helper does MORE THAN HALF the effort. Dexter lifts or holds trunk or limbs and provides more than half the effort. 1-Plfthmupf-kxbiii does ALL the effort. Patient does none of the effort to complete the activity. Or, the assistance of 2 or more helpers is required for the patient to complete the activity. If activity was not attempted, code reason: 7-Patient Refused. 9-Not Applicable-not attempted and the patient did not perform the activity befo re the current illness, exacerbation or injury. 10-Not Attempted due to Environmental Limitations-(lack of equipment, weather re straints, etc.). 88-Not Attempted due to Medical Conditions or Safety Concerns. Sit to Stand (QC): 3 Chair/Gsf-ky-Hbooe Xfer(QC): 3 Toilet Transfer (QC): 3 Patient toileted and needs assist getting pants up and down but was able to clean himself. Gait Training Distance: 100'x2 Walk 10 feet (QC): 3 Walk 50 ft with 2 Turns(QC): 3 Gait Assistive Device: FWW Patient needs assist guiding walker and keeping his left hand on the telephone order clerk. He has a wide MARI and tends to kick walker, slumped posture, cues to stay closer to walker. Exercises standing reaching activity x3, reaching with right arm with weight on it, no support but PT assist with balance and positioning. Assessment Current Status: Poor Progress very SOB with activity PT Short Term Goals Short Term Goals Time Frame: Nov 13, 2019 Roll Left & Right: 4 Sit to lyin Lying to sitting on side of be: 4 Sit to stand: 4 Chair/mfk-en-qsytp transfer: 4 Walk 10 feet: 4 Walk 50 feet with two turns: 4 Walk 150 feet: 4 PT Detention Goals Public Health Social Worker Goals PT Detention Goals Time Frame: Nov 27, 2019 Roll Left & Right (QC): 6 Sit to Lying (QC): 6 Lying-Sitting on Side/Bed(QC): 6 Sit to Stand (QC): 6 Chair/Vdp-dx-Rsrpk Xfer(QC): 6 Toilet Transfer (QC): 6 Car Transfer (QC): 6 Walk 10 feet (QC): 4 Walk 50ft with 2 Turns (QC): 4 Walk 150 ft (QC): 4 Walking 10ft on Uneven Surface: 4 PT Plan Problem List Problem List: Activity Tolerance, Functional Strength, Safety, Balance, Gait, Transfer, Bed Mobility Treatment/Plan Treatment Plan: Continue Plan of Care Treatment Plan: Bed Mobility, Education, Functional Activity Drew, Functional Strength, Group Therapy, Gait, Safety, Therapeutic Exercise, Transfers Treatment Duration: Nov 27, 2019 Frequency: At least 5 of 7 days/Wk (IRF) Estimated Hrs Per Day: 1.5 hours per day Patient and/or Family Agrees t: Yes Safety Risks/Education Patient Education: Gait Training, Transfer Techniques, Correct Positioning, Safety Issues Teaching Recipient: Patient Teaching Methods: Demonstration, Discussion Response to Teaching: Reinforcement Needed Time/GCodes Time In: 1255 Time Out: 1335 Total Billed Treatment Time: 40 Total Billed Treatment 1 visit GT 15' FA 25' Co-treat with OT for the whole 40 min. PT worked on transfers, standing, ambulation, balance and positioning during standing reaching activity. OT worked on toileting, assist with ambulation, reaching activity. NATALIE KHANNA PT Nov 06, 2019 13:37
--- NOTE | 2019-11-06 13:40 | Occupational Ther Daily Note ---
OT Current Status-Daily Note Subjective Pt alert, sitting in recliner. Pt agrees to therapy. present in room. No c/o pain. Mental Status/Objective Patient Orientation: Person, Place, Time, Situation Attachments: Manzano Catheter, Oxygen (4L) ADL-Treatment Assist x2 to ambulated to bathroom due to manipulation of tubing and placement of L hand. Transferred to toilet with assist for balance and FWW positioning. Able to cleanse self sitting on toilet, assist with hiking pants over L hip, min A. Therapy Code Descriptions/Definitions Functional [place] Measure: 0=Not Assessed/NA 4=Minimal Assistance 1=Total Assistance 5=Supervision or Setup 2=Maximal Assistance 6=Modified [place] 3=Moderate Assistance 7=Complete IndependenceSCALE: Activities may be completed with or without assistive devices. 9-Qlcffsdeem-iosjjxg completes the activity by him/herself with no assistance from a helper. 5-Set-up or Clean-up Assistance-helper sets up or cleans up; patient completes activity. [place] assists only prior to or following the activity. 4-Supervision or Touching Assistance-helper provides verbal cues and/or touching/steadying and/or contact guard assistance as patient completes activity. Assistance may be provided throughout the activity or intermittently. 3-Partial/Moderate Assistance-helper does LESS THAN HALF the effort. Lizemores lifts, holds or supports trunk or limbs, but provides less than half the effort. 2-Substantial/Maximal Assistance-helper does MORE THAN HALF the effort. Lizemores lifts or holds trunk or limbs and provides more than half the effort. 5-Ihwzlwqha-oyfdnd does ALL the effort. Patient does none of the effort to complete the activity. Or, the assistance of 2 or more helpers is required for the patient to complete the activity. If activity was not attempted, code reason: 7-Patient Refused. 9-Not Applicable-not attempted and the patient did not perform the activity before the current illness, exacerbation or injury. 10-Not Attempted due to Environmental Limitations-(lack of equipment, weather restraints, etc.). 88-Not Attempted due to Medical Conditions or Safety Concerns. Toileting Hygiene (QC): 3 Toilet Transfer (QC): 3 Other Treatment OT/PT co-treat for skilled instruction and need of 2 clinicians due to pt's decreased strength/ balance/ SOB and multiple lines, pt's decreased attention to tasks. OT worked on UE strength/ADL ability/positioning L UE. PT working on functional mobility, dynamic standing balance and LE strengthening. Pt worked on normal movement patterns with L UE, AAROM. With 2# wt attached to wrist, pt worked on dynamic standing balance by reaching diagonally each side to grasp/place cones. Pt fatigued quickly. After session, pt sitting in recliner with call light/phone in reach. All needs met in room. Nrsg in room. OT Short Term Goals Short Term Goals Time Frame: Nov 13, 2019 Upper body dressin Lower body dressin OT Tester Compressed Gases Goals Tester Compressed Gases Goals Time Frame: Nov 20, 2019 Eating (QC): 6 Oral Hygiene (QC): 6 Toileting Hygiene (QC): 6 Shower/Bathe Self (QC): 5 Upper Body Dressing (QC): 6 Lower Body Dressing (QC): 6 On/Off Footwear (QC): 6 Additional Goals: 1-Demonstrate ADL Tasks, 2-Verbalize Understanding, 3-ImproveStrength/Drew 1=Demonstrate adherence to instructed precautions during ADL tasks. 2=Patient will verbalize/demonstrate understanding of assistive devices/modifications for ADL. 3=Patient will improve strength/tolerance for activity to enable patient to perform ADL's. OT Education/Plan Problem List/Assessment Assessment: Decreased Activ Tolerance, Decreased Safety Aware, Decreased UE Strength, Impaired Coordination, Impaired Funct Balance, Impaired Self-Care Skills, Restricted Funct UE ROM Discharge Recommendations Plan/Recommendations: Continue POC Treatment Plan/Plan of Care Patient would benefit from OT for education, treatment and training to promote independence in ADL's, mobility, safety and/or upper extremity function for ADL's. Plan of Care: ADL Retraining, Caregiver Training, Concurrent Therapy, Functional Mobility, Group Exercise/Act as Ind, UE Funct Exercise/Act, UE Neuromus Re-Ed/Coord Treatment Duration: Nov 20, 2019 Frequency: At least 5 of 7 days/Wk (IRF) Estimated Hrs Per Day: 1.5 hours per day Agreement: Yes Rehab Potential: Fair Time/GCodes Start Time: 12:55 Stop Time: 13:35 Total Time Billed (hr/min): 40 Billed Treatment Time 1 visit-ADL 1 (20 min) NM 2 (25 min) OT/PT co-treat realtime captioner for skilled instruction and need of 2 clinicians due to pt's decreased strength/ balance/ SOB and multiple lines, pt's decreased attention to tasks. OT worked on UE strength/ADL ability/positioning L UE. PT working on functional mobility, dy namic standing balance and LE strengthening. JERARDO ONOFRE Nov 06, 2019 13:40
[2019-11-06 13:53] VITALS: BP 147/77
--- NOTE | 2019-11-06 15:31 | ST Cognitive Linguistic Eval ---
Speech Evaluation-General Medical Diagnosis debility Onset Date: Nov 02, 2019 Therapy Diagnosis Therapy Diagnosis: Cognitive-communication Precautions Precautions: None Referral Referring Physician: Dr. Barrientos Reason for Referral: Evaluation/Treatment Medical History Pertinent Medical History: CABG, COPD, CVA, HTN Reviewed History: Yes Social History Current Living Status: Spouse Speech PLF-Current Status Prior Level of Function Patient reported living at home with his and living an independent life. Subjective Patient was alert, upbeat, and cooperative for all evaluation tasks. Patient reported that his oxygen was very low coming into the hospital and had a heavy cough. Patient sat upright in his chair for the duration of the evaluation. Language Eval: Auditory Comprehends Simple Yes/No Ques: Functional Indent/Objects Multiple Pedroza: Functional Ident/Pics in Multiple Pedroza: Functional Follows 1-Step Commands: Functional Follows Complex Directions: Functional Follows General Conversations: Functional Language Eval: Verbal Language Completes Spontaneous Greeting: Functional Produces Auto, Serial Info: Functional Imitates Simple Words/Phrases: Functional Word Finding: Functional Requests Basic Needs: Functional States Basic Personal Info: Functional Expresses Complex Ideas: Functional Objective Cognitive Domain Attention: WNL Memory: WNL Problem Solving: Functional Executive Functions: WNL Visuospatial Skills: WNL Composite Severity Rating: WNL Clock Drawing Severity Rating: WNL Objective Formal/Standardized Tests [facility] Mental Status (UMS) Examination was administered. Results The patient was administered the SLUMS and scored 27/30 which falls within normal limits of cognitive function. Oral Motor/Speech Production Within functional limits. Impression The patient is an 79-year-old male who was admitted the the [facility] s/p debility. The patient was administered the SLUMS and scored 27/30 which falls within normal limits of cognitive function. The patient does not qualify for skilled ST therapy as evidenced by demonstration of adequate cognitive-communication skills and effectively communicating wants/needs. Speech Patient Assess Expression of Ideas/Wants: Expression (4) Understanding Verbal Content: Understands (4) Brief Interview-Mental Status: Yes Repetition of Three Words: Three (3) Temporal Orientation: Year: Correct (3) Temporal Orientation: Month: Accurate within 5 days(2) Temporal Orientation: Day: Correct (1) Recall : Wear to say "Sock": Yes, no cue required (2) Recall : Color: Yes, no cue required (2) Recall : Bed: Yes,after cueing (1) Memory/Recall Ability: Current season, Location of own room, That he or she is in a hsp/hsp unit Speech-Plan Patient/Family Goals Patient/Family Goals: Patient reports wishing to return to prior level of mobility and independence. Treatment Plan Speech Therapy Treatment Plan: Discontinue ST Treatment Duration: Nov 06, 2019 Frequency: 1 time per week Estimated Hrs Per Day: .25 hour per day Rehab Potential: Fair Barriers to Learning: Current medical status Pt/Family Agrees to Plan: Yes Safety Risks/Education Teaching Recipient: Patient Teaching Methods: Demonstration, Discussion Response to Teaching: Verbalize Understanding Education Topics Provided: Evaluation tasks and areas of cognition assessed Time Speech Therapy Time In: 15:15 Speech Therapy Time Out: 15:30 Total Billed Time: 15 Billed Treatment Time 1JO ANN BETH[address] ST Nov 06, 2019 15:31
[2019-11-06] MEDS: RT-ALBUTEROL/IPRATROPIUM 3 ML (DUONEB) VIAL INH PRN ×2 (15:54→22:12)
[2019-11-06 17:04] VITALS: BP 107/59
[2019-11-06] MEDS ORDERED: RT-ALBUTEROL/IPRATROPIUM 3 ML (DUONEB) VIAL INH SCH (18:00)
[2019-11-06] MEDS: FUROSEMIDE 40 MG/4 ML INJ (LASIX) IVP SCH (18:33)
[2019-11-06] MEDS: PHENYTOIN 100 MG (DILANTIN) CAP PO SCH (18:38)
[2019-11-06] MEDS: RT-ALBUTEROL/IPRATROPIUM 3 ML (DUONEB) VIAL INH SCH (20:11)
[2019-11-06] MEDS: SYMBICORT 160/4.5 MCG INHALER 6 GM (NON-FORMULARY) IH SCH (20:15)
[2019-11-06] MEDS: PHENobarbital 64.8 MG (1 GRAIN) TAb PO SCH (20:49)
[2019-11-06] MEDS: MONTELUKAST 10 MG (SINGULAIR) TAB PO SCH (20:49)
[2019-11-06] MEDS: SIMvastatin 10 MG (ZOCOR) TAB PO SCH (20:49)
[2019-11-06] MEDS: ENOXAPARIN 40 MG/0.4 ML (LOVENOX) SYR SC SCH (20:50)
[2019-11-06] MEDS: CHLORHEXIDINE 0.12% SOLN 15 ML (PERIDEX) UDC PO SCH (20:50)
[2019-11-06] MEDS: CLOBETASOL PROPIONATE TOP SCH (20:52)
[2019-11-06] MEDS: polyethylene glycoL POWDER 17 GM (MIRALAX) PACK PO SCH (20:52)
[2019-11-06] MEDS: SENNA W/DOCUSATE (SENOKOT S) TABLET PO SCH (20:52)
[2019-11-07] MEDS: RT-ALBUTEROL/IPRATROPIUM 3 ML (DUONEB) VIAL INH SCH ×4 (02:34→21:19)
[2019-11-07 06:00] VITALS: BP 148/68
[2019-11-07] MEDS: FUROSEMIDE 40 MG/4 ML INJ (LASIX) IVP SCH ×2 (06:31→17:56)
[2019-11-07] MEDS: predniSONE 20 MG TAB PO SCH (06:32)
[2019-11-07] MEDS: LEVOTHYROXINE 75 MCG (LEVOTHROID) TABLET PO SCH (06:32)
[2019-11-07 07:17] LABS: BASOPHILS % (AUTO) 1 % (0-10); EOSINOPHILS # (AUTO) 0.1 10^3/uL (0.0-0.3); EOSINOPHILS % (AUTO) 2 % (0-10); HEMATOCRIT 40 % (40-54); HEMOGLOBIN 13.5 G/DL (13.3-17.7); LYMPHOCYTES # (AUTO) 1.2 X 10^3 (1.0-4.0); LYMPHOCYTES % (AUTO) 23 % (12-44); MEAN CORPUSCULAR HEMOGLOBIN 32 PG (25-34); MEAN CORPUSCULAR HGB CONC 34 G/DL (32-36); MEAN CORPUSCULAR VOLUME 94 FL (80-99); MEAN PLATELET VOLUME 10.9 FL (7.4-10.4); MONOCYTES # (AUTO) 1.1 X 10^3 (0.0-1.0); MONOCYTES % (AUTO) 21 % (0-12); NEUTROPHILS # (AUTO) 2.7 X 10^3 (1.8-7.8); NEUTROPHILS % (AUTO) 53 % (42-75); PLATELET COUNT 140 10^3/uL (130-400); RED CELL DISTRIBUTION WIDTH 13.7 % (10.0-14.5)
[2019-11-07 07:43] LABS: ALANINE AMINOTRANSFERASE 70 U/L (0-55); ALBUMIN 3.8 GM/DL (3.2-4.5); ALKALINE PHOSPHATASE 147 U/L (40-136); BILIRUBIN,TOTAL 0.3 MG/DL (0.1-1.0); BUN/CREATININE RATIO 53; CALCIUM 9.1 MG/DL (8.5-10.1); CARBON DIOXIDE 25 MMOL/L (21-32); CHLORIDE 96 MMOL/L (98-107); CREATININE SERUM 1.14 MG/DL (0.60-1.30); GFR ESTIMATED > 60; GLUCOSE 106 MG/DL (70-105); POTASSIUM 4.2 MMOL/L (3.6-5.0); SODIUM 133 MMOL/L (135-145); TOTAL PROTEIN 8.4 GM/DL (6.4-8.2)
[2019-11-07 08:00] VITALS: BP 98/61
--- NOTE | 2019-11-07 08:00 | NUR ---
DENIES DIFFICULTY IN VOIDING SINCE FISH CATHETER DC'D YESTERDAY, BUT ADMITS TO NOT BEING SURE IF EMPTYING HIS BLADDER - WHICH IS A CHRONIC CONDITION WITH HIM. O2 BACK ON A 4L. NONPRODUCTIVE, FREQUENT COUGH. CONTINUED SOB WITH EXERTION.
[2019-11-07] MEDS: SYMBICORT 160/4.5 MCG INHALER 6 GM (NON-FORMULARY) IH SCH ×2 (08:32→21:27)
[2019-11-07 08:49] LABS: BAND NEUTROPHILS 0 %; BASOPHILS % (MANUAL) 0 %; EOSINOPHILS % (MANUAL) 6 %; LYMPHOCYTES % (MANUAL) 19 %; MONOCYTES % (MANUAL) 18 %; NEUTROPHILS % (MANUAL) 57 %; RBC MORPH NORMAL
[2019-11-07] MEDS: CHLORHEXIDINE 0.12% SOLN 15 ML (PERIDEX) UDC PO SCH ×2 (09:00→20:27)
[2019-11-07] MEDS: DIGOXIN 0.25 MG (LANOXIN) TAB PO SCH (09:27)
[2019-11-07] MEDS: ASPIRIN E.C. 81 MG (ECOTRIN) TAB PO SCH (09:27)
[2019-11-07] MEDS: polyethylene glycoL POWDER 17 GM (MIRALAX) PACK PO SCH ×2 (09:28→20:27)
[2019-11-07] MEDS: PHENYTOIN 100 MG (DILANTIN) CAP PO SCH ×2 (09:28→18:06)
[2019-11-07] MEDS: SENNA W/DOCUSATE (SENOKOT S) TABLET PO SCH ×2 (09:31→20:26)
[2019-11-07 10:30] VITALS: BP 124/71
[2019-11-07] MEDS: meTOproloL SUCCINATE 50 MG (TOPROL XL) TAB PO SCH (10:30)
[2019-11-07] MEDS: lisINopril 5 MG (PRINIVIL) TABLET PO SCH (10:30)
[2019-11-07] MEDS: CLOBETASOL PROPIONATE TOP SCH ×2 (10:32→20:28)
--- NOTE | 2019-11-07 10:40 | Therapy Group Daily Note ---
Therapy Daily Group Note Patient Education Topic Exercises (hand, wrist and UE), Other List Below (ARU expectations and requirements) Exercises Fine Motor, UE Exercise Session Ratio (pt:therapist): 3:1 Goal of Session: Education on ARU Expectations, Other (list) (hand wrist and UE strengthening) Goal Met for this Session: Yes Pt Benefit of Group: Contributions to Others, Increased Functional Strength, Recognition of Peers, Socialization Other/Notes Pt. participated in "Saturday session" gathered around the table . Pts . sipped the drink of their choice and were social and introduced selves sharing their hometown and their favorite Saturday morning activities since retiring. Focus of education was about ARU expectations, requirements and policies as well as discussion and demonstration of UE and hand exercises and the challenges of loss of hand strength for everyday activities and how to strengthen with demonstrated exercises. Pincer, opposition, wrist flexion and extension etc all at table for stabilization etc. Discussed foods and opening of containers and ways to manage easier. Pt. to and from ambulating with FWW min assist and assist for O2 at 4 L. Pt. toileted before and after Rx then in recliner with call gonzalez at hand after Rx Start Time: 09:30 Stop Time: 10:10 Total Billed Treatment Time: 40 Total Billed Treatment 1,GRP RACHEL RG PATTERN ROOM ATTENDANT Nov 07, 2019 10:40
--- NOTE | 2019-11-07 12:22 | PM&R Progress Note ---
Subjective HPI/CC On Admission Date Seen by Provider: Nov 07, 2019 Time Seen by Provider: 12:30 Subjective/Events-last exam Patient doing well Participating with PT OT No pain si reported Requiring 4L/min which he was not O2 dependent at home chronically but he was chronically dyspneic and really needed it 25/03 Nose is sore so will humidfy Cough is still present Checked meds and labs Conferred with RN Reviewed therapy notes Review of Systems General: Fatigue Pulmonary: Dyspnea, Cough Objective Exam Vital Signs Vital Signs Date Time Temp Pulse Resp B/P (MAP) Pulse Ox O2 Delivery O2 Flow Rate FiO2 11/07/19 17:08 37.0 76 18 106/60 (75) 94 Nasal Cannula 4.00 Capillary Refill : Less Than 3 Seconds General Appearance: No Apparent Distress, WD/WN, Anxious, Chronically ill, Thin HEENT: PERRL/EOMI, Normal ENT Inspection, Pharynx Normal Neck: Full Range of Motion, Normal Inspection, Non Tender, Supple, Carotid Bruit Respiratory: Chest Non Tender, No Accessory Muscle Use, No Respiratory Distress, Crackles, Decreased Breath Sounds, Rales, Wheezing Cardiovascular: Regular Rate, Rhythm, No Edema, No Gallop, No JVD, No Murmur, Normal Peripheral Pulses Gastrointestinal: Normal Bowel Sounds, No Organomegaly, No Pulsatile Mass, Non Tender, Soft Back: Normal Inspection, No CVA Tenderness, No Vertebral Tenderness Extremity: Normal Capillary Refill, Normal Inspection, Normal Range of Motion, Non Tender, No Calf Tenderness, No Pedal Edema Neurologic/Psychiatric: Alert, Oriented x3, No Motor/Sensory Deficits, Normal Mood/Affect, convolute tube winder II-XII Norm as Tested, Abnormal Gait, Motor Weakness (gene ralized all extremities) Skin: Normal Color, Warm/Dry Lymphatic: No Adenopathy Results/Procedures Lab Laboratory Tests 11/07/19 07:02 Patient resulted labs reviewed. FIM Transfers Therapy Code Descriptions/Definitions Functional [place] Measure: 0=Not Assessed/NA 4=Minimal Assistance 1=Total Assistance 5=Supervision or Setup 2=Maximal Assistance 6=Modified [place] 3=Moderate Assistance 7=Complete IndependenceSCALE: Activities may be completed with or without assistive devices. 6-Qqdshbznyp-wsyikhr completes the activity by him/herself with no assistance from a helper. 5-Set-up or Clean-up Assistance-helper sets up or cleans up; patient completes activity. [place] assists only prior to or following the activity. 4-Supervision or Touching Assistance-helper provides verbal cues and/or touching/steadying and/or contact guard assistance as patient completes activity. Assistance may be provided throughout the activity or intermittently. 3-Partial/Moderate Assistance-helper does LESS THAN HALF the effort. [place] lifts, holds or supports trunk or limbs, but provides less than half the effort. 2-Substantial/Maximal Assistance-helper does MORE THAN HALF the effort. [place] lifts or holds trunk or limbs and provides more than half the effort. 5-Kxrqaamfe-qpmfyd does ALL the effort. Patient does none of the effort to complete the activity. Or, the assistance of 2 or more helpers is required for the patient to complete the activity. If activity was not attempted, code reason: 7-Patient Refused. 9-Not Applicable-not attempted and the patient did not perform the activity before the current illness, exacerbation or injury. 10-Not Attempted due to Environmental Limitations-(lack of equipment, weather restraints, etc.). 88-Not Attempted due to Medical Conditions or Safety Concerns. Roll Left to Right (QC): 3 Sit to Lying (QC): 3 Sit to Stand (QC): 3 Chair/Avi-oq-Aqvnr Xfer(QC): 3 Car Transfer (QC): 4 Gait Training Does the Patient Walk?: Yes Distance: 100'x2 Walk 10 feet (QC): 3 Walk 50 ft with 2 Turns(QC): 3 Walk 150 ft (QC): 3 Walking 10ft/uneven surface-QC: 88 Gait Assistive Device: FWW Wheelchair Training Wheel 50 ft with 2 turns (QC): 88 Wheel 150 ft (QC): 88 Stair Training 1 Step (curb) (QC): 88 4 Steps (QC): 88 12 Steps (QC): 88 Balance Picking up an Object (QC): 88 ADL-Treatment Eating (QC): 5 Oral Hygiene (QC): 5 Shower/Bathe Self (QC): 3 (assist with washing feet and bottom. CGA in stance.) Upper Body Dressing (QC): 3 (min A) Lower Body Dressing (QC): 3 (assist with threading 1/2 legs into pants/ briefs and assist with L side pulling up over hips.) On/Off Footwear (QC): 1 (TD) Toileting Hygiene (QC): 3 Toilet Transfer (QC): 3 Assessment/Plan Assessment and Plan Assess & Plan/Chief Complaint Assessment: COPD myopathy Debility acute on chronic Severe COPD O2 dependence Hypothyroidism CHF Cardiomyopathy Pacemaker Depression Seizure d/o CVA hx Plan: Steroids Lasix Voiding well since catheter DC Monitor bowels (1) Debility Status: Acute (2) Acute kidney injury superimposed on chronic kidney disease Status: Acute (3) Acute on chronic HFrEF (heart failure with reduced ejection fraction) Status: Acute (4) Near syncope Status: Acute (5) COPD exacerbation Status: Acute RONAK JOY DO Nov 07, 2019 12:22
--- NOTE | 2019-11-07 12:22 | Individualized Plan of Care ---
Individualized Plan of Care Rehab Nursing IPOC Order Admission Date Nov 06, 2019 at 11:08 Current Orders Orders Admission Order(Inpt,Obs,Sdc) (11/06/19 11:06) Oneil Baca (11/06/19 11:06) Sequential Compression Device Q4H (11/06/19 11:06) Rehab Nursing Orders-Ipoc (11/06/19 11:06) Physical Therapy Rehab Orders (11/06/19 11:06) Occupational Therapy Rehab Ord (11/06/19 11:06) Speech Therapy Rehab Orders (11/06/19 11:06) Cbc With Automated Diff (11/07/19 06:00) Comprehensive Metabolic Panel (11/07/19 06:00) Intake & Output 06,14,22 (11/06/19 11:06) Precautions (Aru) (11/06/19 11:06) Weekly Weight WEEK (11/06/19 11:06) Rehab-Intensity Of Therapy (11/06/19 11:06) Initiate Admission Nursing Pro .admission (11/06/19 11:06) Alprazolam Tablet (Xanax Tablet) (11/06/19 11:15) Calcium Carbonate Chew Tablet (Antacid C (11/06/19 11:15) Diphenhydramine Tablet (Benadryl Tablet) (11/06/19 11:15) Docusate Sodium Capsule (Colace Capsule) (11/06/19 11:15) Bisacodyl Suppository (Dulcolax Supposit (11/06/19 11:15) Lactulose Oral Solution (Enulose Oral So (11/06/19 11:15) Na Phos/Na Biphos Enema (Fleet Enema Davin (11/06/19 11:15) Guaifenesin/Codeine Syrup (Robitussin Ac (11/06/19 11:15) Loperamide Tablet (Imodium Tablet) (11/06/19 11:15) Enoxaparin Injection (Lovenox Injection) (11/06/19 11:15) Melatonin Tablet (Melatonin Tablet) (11/06/19 11:15) Polyethylene Glycol Powder Pkt (Miralax (11/06/19 21:00) Ondansetron Oral Dissolve Tab (Zofran (11/06/19 11:15) Senna S Tablet (Senokot S Tablet) (11/06/19 21:00) Network Security Officer-Inpt Rehab Con (11/06/19 11:06) Transfer - Bed/Room/Location (11/06/19 11:00) General/Regular (11/06/19 Lunch) Code/Resuscitation (11/06/19 12:19) Activity (11/06/19 12:19) Daily Weight 06 (11/06/19 12:19) Oxygen-Administer 07,19 (11/06/19 12:19) Sodium 2g (2000 Mg) (11/06/19 Dinner) (Nf) Clobetasol Propionate Cream (11/06/19 21:00) Acetaminophen Tablet/Caplet (Tylenol T (11/06/19 12:30) Albuterol/Ipra Inhalation Soln (Duoneb I (11/06/19 12:30) Aspirin Enteric Coated Tablet (Ecotrin T (11/07/19 09:00) Budesonide/Formoterol (Nonform (Symbicor (11/06/19 21:00) Chlorhexidine 0.12% Oral Soln (Peridex 0 (11/06/19 21:00) Digoxin Tablet (Lanoxin Tablet) (11/07/19 09:00) Bisacodyl Suppository (Dulcolax Supposit (11/06/19 12:30) Enoxaparin Injection (Lovenox Injection) (11/06/19 21:00) Furosemide Injection (Lasix Injection) (11/06/19 17:00) Levothyroxine Tablet (Synthroid Tablet) (11/07/19 06:30) Melatonin Tablet (Melatonin Tablet) (11/06/19 12:30) Polyethylene Glycol Powder Pkt (Miralax (11/06/19 12:30) Montelukast Tablet (Singulair Tablet) (11/06/19 21:00) Antacid Suspension (Mylanta Suspension (11/06/19 12:30) Phenobarbital Tablet (Phenobarbital Tabl (11/06/19 21:00) Patient May Use Own Med,Single (Patient (11/06/19 12:30) Patient May Use Own Meds, All (Patient M (11/06/19 12:30) Phenytoin Capsule (Dilantin Capsule) (11/06/19 18:00) Simvastatin Tablet (Zocor Tablet) (11/06/19 21:00) Sodium Chloride Flush (Catheter Flush Sy (11/06/19 12:30) Ondansetron Injection (Zofran Injectio (11/06/19 12:30) Ondansetron Oral Dissolve Tab (Zofran (11/06/19 12:30) Guaifenesin Tablet (Mucinex Tablet) (11/06/19 12:30) Guaifenesin/Dm Syrup (Robitussin Dm Syru (11/06/19 12:30) Lisinopril Tablet (Zestril Tablet) (11/07/19 09:00) Metoprolol Succinate (Xl) Tab (Toprol Xl (11/07/19 09:00) Prednisone Tablet (Deltasone Tablet) (11/07/19 07:00) Consult Cardiology (11/06/19 12:19) Oxygen Delivery Set Up (11/06/19 12:19) Svn Small Volume Nebulizer (11/06/19 12:19) Svn Small Volume Nebulizer (11/06/19 12:19) Catheter(Urinary) Discontinue (11/06/19 13:16) Patient Visit (11/06/19 ) Speech Sound Lang Comp (11/06/19 ) Patient Visit (11/06/19 ) Pt Eval Moderate Complexity (11/06/19 ) Functional Activities, Ea 15 (11/06/19 ) Gait Training, Ea 15 Min (11/06/19 ) Ambulate 08,12,20 (11/06/19 14:54) Sequential Compression Device Q4H (11/06/19 14:54) Dvt/Vte Risk - Notifiy Physici Q4H (11/06/19 14:54) Albuterol/Ipra Inhalation Soln (Duoneb I (11/06/19 18:00) Phenytoin Capsule (Dilantin Capsule) (11/07/19 09:00) Albuterol/Ipra Inhalation Soln (Duoneb I (11/06/19 21:00) Mat Initiate Protocol (11/06/19 15:42) Incentive Spirometry Initial (11/06/19 16:05) Incentive Spirometry (Nursing) Q2H (11/06/19 16:05) Manual Differential (11/07/19 07:02) Patient Visit (11/07/19 ) Therapeutic, Group (11/07/19 ) Rehab Nursing Orders: Ongoing Assess. of Cognitive Status, Ongoing Assess. of Function Status, Bladder Management, Bladder Scan, Bladder Training, Bowel Management, Disease Management & Educaiton, DVT Prophylaxis, Fall Prevention, Fluid/Electrolyte/Nutrition Mgmt, Infection Prevention, Medication Management & Education, Management of Risks & Complications, Management of Skin Intergrity, Nutrition Management, Pain Management, Patient/Family Support, Safety Management Intensity of Therapy to be met Patient to be seen: Min.3h per day/5 of 7d PT IPOC Problem List: Activity Tolerance, Functional Strength, Safety, Balance, Gait, Transfer, Bed Mobility Treatment Plan: Continue Plan of Care Bed Mobility, Education, Functional Activity Drew, Functional Strength, Group Therapy, Gait, Safety, Therapeutic Exercise, Transfers Treatment Duration: Nov 27, 2019 Frequency: At least 5 of 7 days/Wk (IRF) Estimated Hrs Per Day: 1.5 hours per day OT IPOC Problems: Decreased Activ Tolerance, Decreased Safety Aware, Decreased UE Strength, Impaired Coordination, Impaired Funct Balance, Impaired Self-Care Skills, Restricted Funct UE ROM OT Treatment, Training and Edu: Yes Plan of Care: ADL Retraining, Caregiver Training, Concurrent Therapy, Functional Mobility, Group Exercise/Act as Ind, UE Funct Exercise/Act, UE Neuromus Re-Ed/Coord Treatment Duration: Nov 20, 2019 Frequency: At least 5 of 7 days/Wk (IRF) Estimated Hrs Per Day: 1.[address] IPOC Speech Therapy Treatment Plan: Discontinue ST Treatment Duration: Nov 06, 2019 Frequency: 1 time per week Estimated Hrs Per Day: .25 hour per day Network Security Officer/Case Mgmt Network Security Officer/Case Managemen: Discharge Planning Dietitian/It Support Manager Dietitian/It Support Manager to monitor nutritional status and make changes and/or recommendations as needed and work with speech pathology on dietary upgrades as the occur. Physician IPOC Medical Issues being managed closely and that require the 24 hour availability of a physician: Recent AECOPD requiring increased O2 dependency and other comorbidities will require close monitoring Medical Issues: Bowel/Bladder Function, DVT Prophylaxis, Falls Precautions, F luid/Electrolyte/Nutrition Balance, Infection Protection, Pain Management Brief Synthesis of Preadmission Screen, Post-Admission Evaluation, and Therapy Evaluations: PT OT will focus on increasing stamina and fall risk prevention and work on conserving lung function Medical Prognosis: Good Anticipated Length of Stay: 7 days RONAK JOY DO Nov 07, 2019 12:22
--- NOTE | 2019-11-07 12:30 | NUR ---
DR. JOY INFORMED OF BUN AND LIVER ENZYME LEVELS CONTINUING TO ELEVATE.
--- NOTE | 2019-11-07 13:00 | NUR ---
COMPLAIN DRY NARES AND HUMIDIFIER ADDED TO OXYGEN.
[2019-11-07 17:08] VITALS: BP 106/60
--- NOTE | 2019-11-07 18:00 | NUR ---
IV IN LEFT CHEST OCCLUDED AND DC'D. RESTARTED IN LEFT FOREARM. HAS HAD A FAIRLY GOOD DAY. O2 ON AT 4 L.
[2019-11-07] MEDS: ENOXAPARIN 40 MG/0.4 ML (LOVENOX) SYR SC SCH (20:26)
[2019-11-07] MEDS: PHENobarbital 64.8 MG (1 GRAIN) TAb PO SCH (20:26)
[2019-11-07] MEDS: MONTELUKAST 10 MG (SINGULAIR) TAB PO SCH (20:26)
[2019-11-07] MEDS: SIMvastatin 10 MG (ZOCOR) TAB PO SCH (20:26)
--- NOTE | 2019-11-07 22:25 | NUR ---
Nirav is a 79 yo male who is currently on due to debility, CHF, and COPD. Jose is A&O X 4 and denies any pain. He does have a very significant medical history including chronic bronchitis, COPD, emphysema, and pneumonia. Upon arrival patient was requiring 4 L of oxygen via NC, at 2130 the after his RT treatments, she increased him to 5 L due to his oxygen saturations being 88% on 4L. This nurse is closely monitoring his respiratory status. He does ambulate to and from the bathroom using a walker, his does require min assist and frequent cueing to keep the walker close. Jose has been cont. of bowel and bladder so far this shift with this nurse. He is currently resting in bed and refused his SCD's. No further issues noted at this time. This nurse will continue to monitor him throughout shift. Addendum: 11/08/19 at 0456 by JAY DIANA RN [id number] Jose became very short of breath while ambulating to bathroom. This nurse took vitals and all WNL but patient felt like he would benefit from PRN breathing treatment. RT called and unable to complete at this time, this nurse administered treatment at 0455 currently still running. Patient tolerating treatment well and is appearing to help with SOB. This nurse will continue to monitor. Addendum: 11/08/19 at 0501 by JAY DIANA RN [phone] Post breathing treatment patient appears much less labored. O2 Saturations reading at 95% on 5 L, this nurse decreased oxygen to 4L due to history of COPD and CO2 retention. Patient is tolerating 4 L without issue and currently on 94%. This nurse will monitor closely.
[2019-11-08] MEDS: RT-ALBUTEROL/IPRATROPIUM 3 ML (DUONEB) VIAL INH SCH ×4 (03:14→21:45)
[2019-11-08] MEDS: RT-ALBUTEROL/IPRATROPIUM 3 ML (DUONEB) VIAL INH PRN (04:52)
[2019-11-08 05:05] VITALS: BP 155/83
[2019-11-08] MEDS: FUROSEMIDE 40 MG/4 ML INJ (LASIX) IVP SCH (06:19)
[2019-11-08] MEDS: LEVOTHYROXINE 75 MCG (LEVOTHROID) TABLET PO SCH ×2 (06:19→20:38)
[2019-11-08] MEDS: predniSONE 20 MG TAB PO SCH (06:19)
[2019-11-08] MEDS: DIGOXIN 0.25 MG (LANOXIN) TAB PO SCH (09:01)
[2019-11-08] MEDS: SENNA W/DOCUSATE (SENOKOT S) TABLET PO SCH ×2 (09:01→20:37)
[2019-11-08] MEDS: ASPIRIN E.C. 81 MG (ECOTRIN) TAB PO SCH (09:01)
[2019-11-08] MEDS: lisINopril 5 MG (PRINIVIL) TABLET PO SCH (09:01)
[2019-11-08] MEDS: meTOproloL SUCCINATE 50 MG (TOPROL XL) TAB PO SCH (09:01)
[2019-11-08] MEDS: polyethylene glycoL POWDER 17 GM (MIRALAX) PACK PO SCH ×2 (09:02→20:35)
[2019-11-08] MEDS: PHENYTOIN 100 MG (DILANTIN) CAP PO SCH ×2 (09:02→17:03)
[2019-11-08] MEDS: SYMBICORT 160/4.5 MCG INHALER 6 GM (NON-FORMULARY) IH SCH ×2 (09:02→21:45)
[2019-11-08] MEDS: CLOBETASOL PROPIONATE TOP SCH ×2 (09:06→20:38)
[2019-11-08] MEDS: CHLORHEXIDINE 0.12% SOLN 15 ML (PERIDEX) UDC PO SCH ×2 (09:07→20:37)
--- NOTE | 2019-11-08 10:30 | NUR ---
Dr. Barrientos in to see patient today. Order received to keep 02 at 4l or less. RT notified, aware.
--- NOTE | 2019-11-08 15:39 | PM&R Progress Note ---
Subjective HPI/CC On Admission Date Seen by Provider: Nov 08, 2019 Time Seen by Provider: 11:00 Subjective/Events-last exam Patient doing well at bedside Participating with PT OT No pain is stated Requiring 4L/min but RT increased to 5 L/Min so will need to titrate that down and goal O2 sat is 93% Nose was sore so humidfied it and it seems to have helped Cough is still present Patient has seizure d/o along with pseudoseizures and states he had one when he was taking a nap Checked meds and labs Conferred with RN Reviewed therapy notes Review of Systems General: Fatigue Pulmonary: Dyspnea Neurological: Seizures Objective Exam Vital Signs Vital Signs Date Time Temp Pulse Resp B/P (MAP) Pulse Ox O2 Delivery O2 Flow Rate FiO2 11/08/19 17:10 37.0 70 20 101/56 (71) 91 Nasal Cannula 3.00 Capillary Refill : Less Than 3 Seconds General Appearance: No Apparent Distress, WD/WN, Anxious, Chronically ill, Thin HEENT: PERRL/EOMI, Normal ENT Inspection, Pharynx Normal Neck: Full Range of Motion, Normal Inspection, Non Tender, Supple, Carotid Bruit Respiratory: Chest Non Tender, No Accessory Muscle Use, No Respiratory Distress, Crackles, Decreased Breath Sounds, Rales, Wheezing Cardiovascular: Regular Rate, Rhythm, No Edema, No Gallop, No JVD, No Murmur, Normal Peripheral Pulses Gastrointestinal: Normal Bowel Sounds, No Organomegaly, No Pulsatile Mass, Non Tender, Soft Back: Normal Inspection, No CVA Tenderness, No Vertebral Tenderness Extremity: Normal Capillary Refill, Normal Inspection, Normal Range of Motion, Non Tender, No Calf Tenderness, No Pedal Edema Neurologic/Psychiatric: Alert, Oriented x3, No Motor/Sensory Deficits, Normal Mood/Affect, oyster picker II-XII Norm as Tested, Abnormal Gait, Motor Weakness (generalized all extremities) Skin: Normal Color, Warm/Dry Lymphatic: No Adenopathy Results/Procedures Lab Patient resulted labs reviewed. FIM Transfers Therapy Code Descriptions/Definitions Functional [place] Measure: 0=Not Assessed/NA 4=Minimal Assistance 1=Total Assistance 5=Supervision or Setup 2=Maximal Assistance 6=Modified [place] 3=Moderate Assistance 7=Complete IndependenceSCALE: Activities may be completed with or without assistive devices. 1-Emvvpebkdm-plrhnwr completes the activity by him/herself with no assistance from a helper. 5-Set-up or Clean-up Assistance-helper sets up or cleans up; patient completes activity. [place] assists only prior to or following the activity. 4-Supervision or Touching Assistance-helper provides verbal cues and/or touching/steadying and/or contact guard assistance as patient completes activity. Assistance may be provided throughout the activity or intermittently. 3-Partial/Moderate Assistance-helper does LESS THAN HALF the effort. [place] lifts, holds or supports trunk or limbs, but provides less than half the effort. 2-Substantial/Maximal Assistance-helper does MORE THAN HALF the effort. [place] lifts or holds trunk or limbs and provides more than half the effort. 5-Rfeqysbot-umrqfd does ALL the effort. Patient does none of the effort to complete the activity. Or, the assistance of 2 or more helpers is required for the patient to complete the activity. If activity was not attempted, code reason: 7-Patient Refused. 9-Not Applicable-not attempted and the patient did not perform the activity before the current illness, exacerbation or injury. 10-Not Attempted due to Environmental Limitations-(lack of equipment, weather restraints, etc.). 88-Not Attempted due to Medical Conditions or Safety Concerns. Roll Left to Right (QC): 3 Sit to Lying (QC): 3 Sit to Stand (QC): 3 Chair/Ykh-hd-Sxiyu Xfer(QC): 3 Car Transfer (QC): 4 Gait Training Does the Patient Walk?: Yes Distance: 100'x2 Walk 10 feet (QC): 3 Walk 50 ft with 2 Turns(QC): 3 Walk 150 ft (QC): 3 Walking 10ft/uneven surface-QC: 88 Gait Assistive Device: FWW Wheelchair Training Wheel 50 ft with 2 turns (QC): 88 Wheel 150 ft (QC): 88 Stair Training 1 Step (curb) (QC): 88 4 Steps (QC): 88 12 Steps (QC): 88 Balance Picking up an Object (QC): 88 ADL-Treatment Eating (QC): 5 Oral Hygiene (QC): 5 Shower/Bathe Self (QC): 3 (assist with washing feet and bottom. CGA in stance.) Upper Body Dressing (QC): 3 (min A) Lower Body Dressing (QC): 3 (assist with threading 1/2 legs into pants/ briefs and assist with L side pulling up over hips.) On/Off Footwear (QC): 1 (TD) Toileting Hygiene (QC): 3 Toilet Transfer (QC): 3 Assessment/Plan Assessment and Plan Assess & Plan/Chief Complaint Assessment: COPD myopathy Debility acute on chronic Severe COPD O2 dependence Hypothyroidism CHF Cardiomyopathy Pacemaker Depression Seizure d/o Pseudoseizures CVA hx Plan: Steroids weaning Lasix Voiding well since catheter DC Monitor bowels O2 4L/min maintenance (1) Debility Status: Acute (2) Acute kidney injury superimposed on chronic kidney disease Status: Acute (3) Acute on chronic HFrEF (heart failure with reduced ejection fraction) Status: Acute (4) Near syncope Status: Acute (5) COPD exacerbation Status: Acute RONAK JOY DO Nov 08, 2019 15:39
--- NOTE | 2019-11-08 15:59 | NUR ---
Dr. Bhandari in to see patient today. Order received to offer Ensure with meals. Dietary notified.
--- NOTE | 2019-11-08 16:23 | Progress Note - Cardiology ---
Cardiology SOAP Progress Note Subjective: Increasing weakness and malaise Does not report cp or palp or syncope Bilat leg weakness, chronic, but more than before No n/v/d Poor appetite Low oral intake Objective: I&O/Vital Signs 11/08/19 11/08/19 11/08/19 11/08/19 05:05 08:56 09:00 09:02 Temp 37.4 Pulse 100 Resp 20 B/P (MAP) 155/83 (107) Pulse Ox 94 90 O2 Delivery Nasal Cannula High Flow N/C Nasal Cannula High Flow N/C O2 Flow Rate 4.00 4.00 4.00 11/08/19 15:39 Pulse Ox 90 O2 Delivery High Flow N/C O2 Flow Rate 3.00 11/08/19 00:00 Intake Total 850 ml Balance 850 ml Weight (Pounds): 187 Weight (Ounces): 0.0 Weight (Calculated Kilograms): 84.047631 Constitutional: AAO x 3 (but somnolent and weak-appearing), well-developed, other (thin-appearing) Respiratory: No accessory muscle use; other (good bilat air entry) Cardiovascular: regular rate-rhythm, S1 and S2, systolic murmur (soft FRIDA at card base) Gastrointestional: No tender; soft; No guarding, No rebound; audible bowel sounds Extremities: No clubbing, No cyanosis, No significant edema Neurologic/Psychiatric: oriented x 3, other (moves all limbs equally but appears to be equally weak in all limbs) Skin: warm/dry; No diaphoresis, No rash on exposed areas, No ulcerations on exposed areas Results/Procedures: Labs Laboratory Tests 11/07/19 07:02 A/P: Assessment: Gen weakness and malaise, likely related to his multiple comorbidities (see below) Acute on chronic systolic CHF, improved Azotemia, likely due to intravsc vol depletion due to diuretic therapy URI - management per medical services Coronary artery disease with a history of coronary artery bypass surgery several years ago. Last cardiac catheterization was in December 2009. It showed severe n[place]ana coronary artery disease, including mid-vessel occlusion of the right coronary and the left circumflex and severe stenosis in the mid left anterior descending artery. There was patent saphenous vein graft to distal right coronary, patent saphenous vein graft to obtuse marginal, patent left internal mammary artery graft to mid left anterior descending artery. He underwent successful percutaneous intervention and stenting to the proximal and mid right coronary artery and a large right ventricular branch with drug-eluting stents (Promus 2.5 x 12 and Promus 2.5 x 23 proximal to distal, slightly overlapping). Since his coronary stenting of December 2009, he has not had any recurrence of angina pectoris. Last myocardial perfusion imaging of December 2018 showed inferior and lateral wall myocardial infarctions without significant ischemia. Marked cardiomegaly. Inferior and lateral wall akinesis. Global hypokinesis. LVEF 8% Ischemic cardiomyopathy with varied LVEF of 8-30% by various measurements over the course of the last several years. Echo 11/03/19 marked enlargement of LV, mod enlargement of LA, LVEF 20-25%, mod MR & TR RVSP approx 43 mmHg. Defibrillator implantation for prophylaxis against sudden cardiac . ICD discharge occurred on 04/12/14 at 2:24 am to treat VF. None since. Device is functioning normally. It reached VI on Apr 14, 2015 and was replaced on 05/10/15 and site does not show evidence of hematoma or inflammation. It is functioning normally per interrogation of 08/12/19 Intolerance to Amiodarone d/t dizziness/weakness when taking this medication per patient and spouse. He refuses therapy with antiarrhythmics, including amiodarone Dyslipidemia. 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 EEG per September 21, [address] Tyson was abnormal, but without clear epileptiform activity (done during a hospitalization of Sep 2014 at [facility] and requested by Dr Barrientos). Carotid arterial disease, approx 50% R ICA stenosis, less than 40% L ICA stenosis per u/s of September 2019 Gastroesophageal reflux. History of mildly elevated alkaline phosphatase followed by his family physcian. H/o intermittent AST/ALT elevation, possibly due to statin therapy. Reactive airways disease. Nocturnal hypoxemia, but no MAGUI on sleep studies of a few years ago Back pain, managed by Dr Knowles. Recent CT lumbar spine w/o contrast ordered by Dr Knowles (01/02/17): neural froaminal stenosis of L5-S1, bilat renal lesions that could not be adequately characterized and for which he has had u/s at the same office on 01/17/17, abd ao atherosclerosis Segmental pressures of December 2016: mod disease involving the distal arterial circulation of the left leg. No c/o claudication of the left leg. Aorta u/s of December 2016: No evidence of AAA Poor balance of undetermined etiology, chronic, managed by pcp Plan: * I interviewed and examined him * I spoke with him, his , and his nurse * We will reduce diuretics * We have advised use of supplements if unable to consume more than 50% of meals * Monitor labs DANNIELLE BRAUN MD FACP FAC CCDS Nov 08, 2019 16:23
[2019-11-08 17:10] VITALS: BP 101/56
--- NOTE | 2019-11-08 18:53 | NUR ---
PATIENT WITH DECREASED OUTPUT DURING THE DAY. BLADDER SCAN DONE, NO SIGNIFICANT FINDINGS. LESS THAN 30CC OF URINE. COLLECTION HAT PLACED IN TOILET TO MONITOR OUTPUT.
[2019-11-08] MEDS: PHENobarbital 64.8 MG (1 GRAIN) TAb PO SCH (20:37)
[2019-11-08] MEDS: SIMvastatin 10 MG (ZOCOR) TAB PO SCH (20:37)
[2019-11-08] MEDS: MONTELUKAST 10 MG (SINGULAIR) TAB PO SCH (20:38)
[2019-11-08] MEDS: ENOXAPARIN 40 MG/0.4 ML (LOVENOX) SYR SC SCH (20:38)
[2019-11-09] MEDS: RT-ALBUTEROL/IPRATROPIUM 3 ML (DUONEB) VIAL INH SCH ×4 (03:19→20:23)
[2019-11-09 06:00] VITALS: BP 111/60
[2019-11-09] MEDS: predniSONE 20 MG TAB PO SCH (06:18)
[2019-11-09 07:21] LABS: BASOPHILS % (AUTO) 1 % (0-10); EOSINOPHILS # (AUTO) 0.1 10^3/uL (0.0-0.3); EOSINOPHILS % (AUTO) 2 % (0-10); HEMATOCRIT 38 % (40-54); HEMOGLOBIN 12.8 G/DL (13.3-17.7); LYMPHOCYTES # (AUTO) 1.3 X 10^3 (1.0-4.0); LYMPHOCYTES % (AUTO) 22 % (12-44); MEAN CORPUSCULAR HEMOGLOBIN 32 PG (25-34); MEAN CORPUSCULAR HGB CONC 34 G/DL (32-36); MEAN CORPUSCULAR VOLUME 94 FL (80-99); MEAN PLATELET VOLUME 12.1 FL (7.4-10.4); MONOCYTES # (AUTO) 0.9 X 10^3 (0.0-1.0); MONOCYTES % (AUTO) 15 % (0-12); NEUTROPHILS # (AUTO) 3.4 X 10^3 (1.8-7.8); NEUTROPHILS % (AUTO) 60 % (42-75); PLATELET COUNT 139 10^3/uL (130-400); RED CELL DISTRIBUTION WIDTH 13.6 % (10.0-14.5); WHITE BLOOD COUNT 5.7 10^3/uL (4.3-11.0)
[2019-11-09 07:46] LABS: ALBUMIN 3.5 GM/DL (3.2-4.5); BILIRUBIN,TOTAL 0.4 MG/DL (0.1-1.0); CALCIUM 8.7 MG/DL (8.5-10.1); CREATININE SERUM 1.68 MG/DL (0.60-1.30); POTASSIUM 4.1 MMOL/L (3.6-5.0)
[2019-11-09] MEDS: polyethylene glycoL POWDER 17 GM (MIRALAX) PACK PO SCH ×2 (09:00→21:00)
[2019-11-09] MEDS: SENNA W/DOCUSATE (SENOKOT S) TABLET PO SCH ×2 (09:00→20:03)
[2019-11-09] MEDS ORDERED: FUROSEMIDE 20 MG (LASIX) TAB PO SCH (09:00)
--- NOTE | 2019-11-09 09:00 | Physical Therapy Daily Note ---
PT Daily Note-Current Subjective Patient in bed pre tx, agrees to PT, has no complaints of pain. Patient needs to get pants on, needs mod assist for this. Appearance Patient in recliner post tx with nurse call, phone, tray, all needs met. Mental Status Patient Orientation: Person, [place] Attachments: Oxygen Transfers SCALE: Activities may be completed with or without assistive devices. 3-Rzpbjhiiuy-wlkcyyz completes the activity by him/herself with no assistance from a helper. 5-Set-up or Clean-up Assistance-helper sets up or cleans up; patient completes activity. [place] assists only prior to or following the activity. 4-Supervision or Touching Assistance-helper provides verbal cues and/or touching/steadying and/or contact guard assistance as patient completes activity. Assistance may be provided throughout the activity or intermittently. 3-Partial/Moderate Assistance-helper does LESS THAN HALF the effort. [place] lifts, holds or supports trunk or limbs, but provides less than half the effort. 2-Substantial/Maximal Assistance-helper does MORE THAN HALF the effort. [place] lifts or holds trunk or limbs and provides more than half the effort. 6-Yiqnjlnbj-urxpfg does ALL the effort. Patient does none of the effort to complete the activity. Or, the assistance of 2 or more helpers is required for the patient to complete the activity. If activity was not attempted, code reason: 7-Patient Refused. 9-Not Applicable-not attempted and the patient did not perform the activity before the current illness, exacerbation or injury. 10-Not Attempted due to Environmental Limitations-(lack of equipment, weather restraints, etc.). 88-Not Attempted due to Medical Conditions or Safety Concerns. Roll Left & Right (QC): 4 Lying to Sitting/Side of Bed(Q: 4 Sit to Stand (QC): 4 Chair/Eri-wa-Qhpyz Xfer(QC): 4 CGA for transfers, needs cues for positioning and safety, almost always stands and sits without using armrest or turning to sit completely Gait Training Distance: 120', 100'x2 Walk 10 feet (QC): 4 Walk 50 ft with 2 Turns(QC): 4 Gait Assistive Device: Walker Platform Tried platform walker for left arm, patient is able to keep arm on it, unlike therapist assist to keep hand on regular walker. Patient tends to keep walker too far in front and needs cues to stay closer to it, tends to kick walker with left foot. Exercises Seated Therapy Exercises: Ankle pumps, Long arc quads, Hip flexion Seated Reps: 20 NuStep Minutes: 4 NuStep Workload: 1 Treatments dressing, bed mobility and transfers, ambulation, functional strengthening Assessment Current Status: Poor Progress Patient very SOB with activity, O2 goes down to 84% with ambulation and requires a significant amount of time to recover (on 4L of O2) PT Short Term Goals Short Term Goals Time Frame: Nov 13, 2019 Roll Left & Right: 4 Sit to lyin Lying to sitting on side of be: 4 Sit to stand: 4 Chair/jvb-hq-dmolx transfer: 4 Walk 10 feet: 4 Walk 50 feet with two turns: 4 Walk 150 feet: 4 PT Joint Cutter Goals Group Home Goals PT Group Home Goals Time Frame: Nov 27, 2019 Roll Left & Right (QC): 6 Sit to Lying (QC): 6 Lying-Sitting on Side/Bed(QC): 6 Sit to Stand (QC): 6 Chair/Sos-lf-Pzfcf Xfer(QC): 6 Toilet Transfer (QC): 6 Car Transfer (QC): 6 Walk 10 feet (QC): 4 Walk 50ft with 2 Turns (QC): 4 Walk 150 ft (QC): 4 Walking 10ft on Uneven Surface: 4 PT Plan Problem List Problem List: Activity Tolerance, Functional Strength, Safety, Balance, Gait, Transfer, Bed Mobility, ROM Treatment/Plan Treatment Plan: Continue Plan of Care Treatment Plan: Bed Mobility, Education, Functional Activity Drew, Functional Strength, Group Therapy, Gait, Safety, Therapeutic Exercise, Transfers Treatment Duration: Nov 27, 2019 Frequency: At least 5 of 7 days/Wk (IRF) Estimated Hrs Per Day: 1.5 hours per day Patient and/or Family Agrees t: Yes Safety Risks/Education Patient Education: Gait Training, Transfer Techniques, Correct Positioning, Safety Issues Teaching Recipient: Patient Teaching Methods: Demonstration, Discussion Response to Teaching: Reinforcement Needed Time/GCodes Time In: 0800 Time Out: 0900 Total Billed Treatment Time: 60 Total Billed Treatment 1 visit EX 20' FA 10' GT 30' NATALIE KHANNA PT Nov 09, 2019 09:00
[2019-11-09 09:12] LABS: ABG BASE EXCESS 4.7 MMOL/L (-2.5-2.5); ABG OXYGEN SATURATION 92 % (94-100); ABG PCO2 47 MMHG (35-45); ABG PH 7.41 (7.37-7.43); ABG PO2 65 MMHG (79-93); ABG TCO2 30.6 MMOL/L (21.0-31.0); ALLENS TEST POSITIVE; INSPIRED O2 3 L; PATIENT TEMP 37.2; VENTILATOR NO
[2019-11-09] MEDS: SYMBICORT 160/4.5 MCG INHALER 6 GM (NON-FORMULARY) IH SCH (09:12)
--- NOTE | 2019-11-09 09:17 | Diagnostic Imaging Report ---
Indication: Shortness of breath Portable chest 9:12 AM There is unipolar pacemaker. There are postoperative changes from CABG surgery. Heart size and pulmonary vascularity are normal. Lungs are clear. There are no effusions or pneumothoraces. IMPRESSION: Postsurgical changes in the chest. No acute abnormality seen. Dictated by: Dictated on workstation # [id number]
[2019-11-09] MEDS: CHLORHEXIDINE 0.12% SOLN 15 ML (PERIDEX) UDC PO SCH ×2 (09:28→20:03)
[2019-11-09] MEDS: ASPIRIN E.C. 81 MG (ECOTRIN) TAB PO SCH (09:28)
[2019-11-09] MEDS: lisINopril 5 MG (PRINIVIL) TABLET PO SCH (09:28)
[2019-11-09] MEDS: DIGOXIN 0.25 MG (LANOXIN) TAB PO SCH (09:28)
[2019-11-09] MEDS: meTOproloL SUCCINATE 50 MG (TOPROL XL) TAB PO SCH (09:28)
[2019-11-09] MEDS: PHENYTOIN 100 MG (DILANTIN) CAP PO SCH ×2 (09:31→17:24)
[2019-11-09] MEDS: CLOBETASOL PROPIONATE TOP SCH ×2 (09:32→20:10)
[2019-11-09] MEDS: NS IV 1000 ML 1,000 ML IV SCH (10:09)
--- NOTE | 2019-11-09 10:24 | PM&R Progress Note ---
Subjective HPI/CC On Admission Date Seen by Provider: Nov 09, 2019 Time Seen by Provider: 08:45 Subjective/Events-last exam Pt doing okay but very fragile and very complex Sodium level 131, Creatinine 1.6, I did speak with Gely with Dr. Bhandari who will see him Had a large BM today 84% O2 saturation with PT May actually be a hospice candidate Checked chest x-ray and ABG and those were both stable Too fragile for rehab is the question Checked meds and labs Conferred with RN Reviewed therapy notes Review of Systems General: Fatigue Pulmonary: Dyspnea, Cough Objective Exam Vital Signs Vital Signs Date Time Temp Pulse Resp B/P (MAP) Pulse Ox O2 Delivery O2 Flow Rate FiO2 11/09/19 17:27 36.2 62 20 124/65 (84) 93 Nasal Cannula 3.00 Capillary Refill : Less Than 3 Seconds General Appearance: No Apparent Distress, WD/WN, Anxious, Chronically ill, Thin HEENT: PERRL/EOMI, Normal ENT Inspection, Pharynx Normal Neck: Full Range of Motion, Normal Inspection, Non Tender, Supple, Carotid Bruit Respiratory: Chest Non Tender, No Accessory Muscle Use, No Respiratory Distress, Crackles, Decreased Breath Sounds, Rales, Wheezing Cardiovascular: Regular Rate, Rhythm, No Edema, No Gallop, No JVD, No Murmur, Normal Peripheral Pulses Gastrointestinal: Normal Bowel Sounds, No Organomegaly, No Pulsatile Mass, Non Tender, Soft Back: Normal Inspection, No CVA Tenderness, No Vertebral Tenderness Extremity: Normal Capillary Refill, Normal Inspection, Normal Range of Motion, Non Tender, No Calf Tenderness, No Pedal Edema Neurologic/Psychiatric: Alert, Oriented x3, No Motor/Sensory Deficits, Normal Mood/Affect, communications attendant II-XII Norm as Tested, Abnormal Gait, Motor Weakness (generalized all extremities) Skin: Normal Color, Warm/Dry Lymphatic: No Adenopathy Results/Procedures Lab Laboratory Tests 11/09/19 05:28 Patient resulted labs reviewed. FIM Transfers Therapy Code Descriptions/Definitions Functional [place] Measure: 0=Not Assessed/NA 4=Minimal Assistance 1=Total Assistance 5=Supervision or Setup 2=Maximal Assistance 6=Modified [place] 3=Moderate Assistance 7=Complete IndependenceSCALE: Activities may be completed with or without assistive devices. 1-Almpcfpuvb-elktdqh completes the activity by him/herself with no assistance from a helper. 5-Set-up or Clean-up Assistance-helper sets up or cleans up; patient completes activity. [place] assists only prior to or following the activity. 4-Supervision or Touching Assistance-helper provides verbal cues and/or touching /steadying and/or contact guard assistance as patient completes activity. Assistance may be provided throughout the activity or intermittently. 3-Partial/Moderate Assistance-helper does LESS THAN HALF the effort. [place] lifts, holds or supports trunk or limbs, but provides less than half the effort. 2-Substantial/Maximal Assistance-helper does MORE THAN HALF the effort. [place] lifts or holds trunk or limbs and provides more than half the effort. 2-Petxklgcg-duipar does ALL the effort. Patient does none of the effort to complete the activity. Or, the assistance of 2 or more helpers is required for the patient to complete the activity. If activity was not attempted, code reason: 7-Patient Refused. 9-Not Applicable-not attempted and the patient did not perform the activity before the current illness, exacerbation or injury. 10-Not Attempted due to Environmental Limitations-(lack of equipment, weather restraints, etc.). 88-Not Attempted due to Medical Conditions or Safety Concerns. Roll Left to Right (QC): 4 Sit to Lying (QC): 3 Sit to Stand (QC): 4 Chair/Tzi-yu-[place]md[place] Xfer(QC): 4 Car Transfer (QC): 4 Gait Training Does the Patient Walk?: Yes Distance: 120', 100'x2 Walk 10 feet (QC): 4 Walk 50 ft with 2 Turns(QC): 4 Walk 150 ft (QC): 3 Walking 10ft/uneven surface-QC: 88 Gait Assistive Device: Walker Platform Wheelchair Training Wheel 50 ft with 2 turns (QC): 88 Wheel 150 ft (QC): 88 Stair Training 1 Step (curb) (QC): 88 4 Steps (QC): 88 12 Steps (QC): 88 Balance Picking up an Object (QC): 88 ADL-Treatment Eating (QC): 5 Oral Hygiene (QC): 5 Shower/Bathe Self (QC): 3 (assist with washing feet and bottom. CGA in stance.) Upper Body Dressing (QC): 3 (min A) Lower Body Dressing (QC): 3 (assist with threading 1/2 legs into pants/ briefs and assist with L side pulling up over hips.) On/Off Footwear (QC): 1 (TD) Toileting Hygiene (QC): 3 Toilet Transfer (QC): 3 Assessment/Plan Assessment and Plan Assess & Plan/Chief Complaint Assessment: COPD myopathy Debility acute on chronic Severe COPD O2 dependence Hypothyroidism CHF Cardiomyopathy Pacemaker Depression Seizure d/o Pseudoseizures CVA hx Plan: Steroids weaning Lasix Voiding well since catheter DC Monitor bowels O2 4L/min maintenance Check CXR and ABG May be too fragile for IRF (1) Debility Status: Acute (2) Acute kidney injury superimposed on chronic kidney disease Status: Acute (3) Acute on chronic HFrEF (heart failure with reduced ejection fraction) Status: Acute (4) Near syncope Status: Acute (5) COPD exacerbation Status: Acute RONAK JOY DO Nov 09, 2019 10:24
--- NOTE | 2019-11-09 12:36 | Progress Note - Cardiology ---
Cardiology SOAP Progress Note Subjective: Gen weakness, malaise, tiredness progressing No cp or palp or syncope or shortness of breath Appetite has been diminished No n/v/d Objective: I&O/Vital Signs 11/09/19 11/09/19 11/09/19 11/09/19 03:19 06:00 08:43 09:13 Temp 37.0 Pulse 69 Resp 20 B/P (MAP) 111/60 (77) Pulse Ox 88 91 88 O2 Delivery High Flow N/C Nasal Cannula Nasal Cannula High Flow N/C O2 Flow Rate 3.00 3.00 3.00 3.00 11/09/19 09:14 Pulse Ox 90 O2 Delivery High Flow N/C O2 Flow Rate 4.00 11/09/19 00:00 Intake Total 680 ml Output Total 375 ml Balance 305 ml Weight (Pounds): 187 Weight (Ounces): 0.0 Weight (Calculated Kilograms): 84.760573 Constitutional: AAO x 3 (but somnolent and weak-appearing), well-developed, other (thin-appearing) Respiratory: No accessory muscle use; other (good bilat air entry) Cardiovascular: regular rate-rhythm, S1 and S2, systolic murmur (soft FRIDA at card base) Gastrointestional: No tender; soft; No guarding, No rebound; audible bowel sounds Extremities: No clubbing, No cyanosis, No significant edema Neurologic/Psychiatric: oriented x 3, other (moves all limbs equally but appears to be equally weak in all limbs) Skin: warm/dry; No diaphoresis, No rash on exposed areas, No ulcerations on exposed areas Results/Procedures: Labs Laboratory Tests 11/09/19 05:28: White Blood Count 5.7, Red Blood Count 4.04L, Hemoglobin 12.8L, Hematocrit 38L, Mean Corpuscular Volume 94, Mean Corpuscular Hemoglobin 32, Mean Corpuscular Hemoglobin Concent 34, Red Cell Distribution Width 13.6, Platelet Count 139, Mean Platelet Volume 12.1H, Neutrophils (%) (Auto) 60, Lymphocytes (%) (Auto) 22, Monocytes (%) (Auto) 15H, Eosinophils (%) (Auto) 2, Basophils (%) (Auto) 1, Neutrophils # (Auto) 3.4, Lymphocytes # (Auto) 1.3, Monocytes # (Auto) 0.9, Eosinophils # (Auto) 0.1, Basophils # (Auto) 0.0, Sodium Level 131L, Potassium Level 4.1, Chloride Level 93L, Carbon Dioxide Level 26, Anion Gap 12, Blood Urea Nitrogen 79H, Creatinine 1.68H, Estimat Glomerular Filtration Rate 39, BUN/Creatinine Ratio 47, Glucose Level 100, Calcium Level 8.7, Corrected Calcium 9.1, Total Bilirubin 0.4, Aspartate Amino Transf (AST/SGOT) 64H, Alanine Aminotransferase (ALT/SGPT) 85H, Alkaline Phosphatase 124, Total Protein 8.0, Albumin 3.5 11/09/19 09:05: Blood Gas Puncture Site RIGHT RADIAL, Blood Gas Patient Temperature 37.2, Arterial Blood pH 7.41, Arterial Blood Partial Pressure CO2 47H, Arterial Blood Partial Pressure O2 65L, Arterial Blood HCO3 29H, Arterial Blood Total CO2 30.6, Arterial Blood Oxygen Saturation 92L, Arterial Blood Base Excess 4.7H, Amrit Test POSITIVE, Blood Gas Ventilator Setting NO, Blood Gas Inspired Oxygen 3 L Laboratory Tests 11/09/19 05:28 A/P: Assessment: Ac renal insuff (RANDOLPH 2-3) due to intravasc vol depletion due to diuretic therapy Gen weakness and malaise, likely related to his multiple comorbidities (see below) Acute on chronic systolic CHF, improved URI - management by Medical services Coronary artery disease with a history of coronary artery bypass surgery several years ago. Last cardiac catheterization was in December 2009. It showed severe [place] coronary artery disease, including mid-vessel occlusion of the right anisa nary and the left circumflex and severe stenosis in the mid left anterior descending artery. There was patent saphenous vein graft to distal right coronary, patent saphenous vein graft to obtuse marginal, patent left internal mammary artery graft to mid left anterior descending artery. He underwent successful percutaneous intervention and stenting to the proximal and mid right coronary artery and a large right ventricular branch with drug-eluting stents (Promus 2.5 x 12 and Promus 2.5 x 23 proximal to distal, slightly overlapping). Since his coronary stenting of December 2009, he has not had any recurrence of angina pectoris. Last myocardial perfusion imaging of December 2018 showed inferior and lateral wall myocardial infarctions without significant ischemia. Marked cardiomegaly. Inferior and lateral wall akinesis. Global hypokinesis. LVEF 8% Ischemic cardiomyopathy with varied LVEF of 8-30% by various measurements over the course of the last several years. Echo 11/03/19 marked enlargement of LV, mod enlargement of LA, LVEF 20-25%, mod MR & TR RVSP approx 43 mmHg. Defibrillator implantation for prophylaxis against sudden cardiac . ICD discharge occurred on 04/12/14 at 2:24 am to treat VF. None since. Device is functioning normally. It reached VI on Apr 14, 2015 and was replaced on 05/10/15 and site does not show evidence of hematoma or inflammation. It is functioning normally per interrogation of 08/12/19 Intolerance to Amiodarone d/t dizziness/weakness when taking this medication per patient and spouse. He refuses therapy with antiarrhythmics, including amiodarone Dyslipidemia. 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 EEG per September 21, [address] Tyson was abnormal, but without clear epileptiform activity (done during a hospitalization of Sep 2014 at [facility] and requested by Dr Barrientos). Carotid arterial disease, approx 50% R ICA stenosis, less than 40% L ICA stenosis per u/s of September 2019 Gastroesophageal reflux. History of mildly elevated alkaline phosphatase followed by his family physcian. H/o intermittent AST/ALT elevation, possibly due to statin therapy. Reactive airways disease. Nocturnal hypoxemia, but no MAGUI on sleep studies of a few years ago Back pain, managed by Dr Knowles. Recent CT lumbar spine w/o contrast ordered by Dr Knowles (01/02/17): neural froaminal stenosis of L5-S1, bilat renal lesions that could not be adequately characterized and for which he has had u/s at the same office on 01/17/17, abd ao atherosclerosis Segmental pressures of December 2016: mod disease involving the distal arterial circulation of the left leg. No c/o claudication of the left leg. Aorta u/s of December 2016: No evidence of AAA Poor balance of undetermined etiology, chronic, managed by pcp Plan: * Careful hydration * Further reduce diuretics * Monitor labs DANNIELLE BRAUN MD FACP FAC CCDS Nov 09, 2019 12:35
--- NOTE | 2019-11-09 12:51 | Occupational Ther Daily Note ---
OT Current Status-Daily Note Subjective No pain reported. Appearance Pt. up in chair. Agrees to work with OT. Mental Status/Objective Patient Orientation: Person Attachments: IV, Oxygen ADL-Treatment Therapy Code Descriptions/Definitions Functional [place] Measure: 0=Not Assessed/NA 4=Minimal Assistance 1=Total Assistance 5=Supervision or Setup 2=Maximal Assistance 6=Modified [place] 3=Moderate Assistance 7=Complete IndependenceSCALE: Activities may be completed with or without assistive devices. 6-Ikelbhjiiq-syvlirc completes the activity by him/herself with no assistance from a helper. 5-Set-up or Clean-up Assistance-helper sets up or cleans up; patient completes activity. [place] assists only prior to or following the activity. 4-Supervision or Touching Assistance-helper provides verbal cues and/or touching/steadying and/or contact guard assistance as patient completes activity. Assistance may be provided throughout the activity or intermittently. 3-Partial/Moderate Assistance-helper does LESS THAN HALF the effort. [place] lifts, holds or supports trunk or limbs, but provides less than half the effort. 2-Substantial/Maximal Assistance-helper does MORE THAN HALF the effort. [place] lifts or holds trunk or limbs and provides more than half the effort. 9-Gqfqsqnko-zsdaed does ALL the effort. Patient does none of the effort to complete the activity. Or, the assistance of 2 or more helpers is required for the patient to complete the activity. If activity was not attempted, code reason: 7-Patient Refused. 9-Not Applicable-not attempted and the patient did not perform the activity before the current illness, exacerbation or injury. 10-Not Attempted due to Environmental Limitations-(lack of equipment, weather restraints, etc.). 88-Not Attempted due to Medical Conditions or Safety Concerns. Oral Hygiene (QC): 2 (OT assisted with brushing dentures.) Shower/Bathe Self (QC): 3 (Mod assist in stance to wash larissa area.) Upper Body Dressing (QC): 3 (Mod assist) Lower Body Dressing (QC): 3 (Mod assist) On/Off Footwear: 2 (Overall max assist to don slipper socks.) Pt. SOA throughout treatment. Pt. wearing 4 L 02 through nasal cannula. OT monitors sats throughout treatment. Pt. dropped to 87% at one time while talking. Encouraged to breathe deep and sats returned to 92%. Min assist sit- stand. Mod assist in stance for dynamic standing balance during ADL task. Pt. completed sponge bath while up in chair. All needs met. Education OT Patient Education: Correct positioning, Modified ADL techniques, Progress toward Goal/Update tx plan, Purpose of tx/functional activities, Reviewed precautions, Rehab process, Transfer techniques Teaching Recipient: Patient Teaching Methods: Demonstration, Discussion Response to Teaching: Verbalize Understanding, Return Demonstration OT Short Term Goals Short Term Goals Time Frame: Nov 13, 2019 Upper body dressin Lower body dressin OT Custodial Goals Custodial Goals Time Frame: Nov 20, 2019 Eating (QC): 6 Oral Hygiene (QC): 6 Toileting Hygiene (QC): 6 Shower/Bathe Self (QC): 5 Upper Body Dressing (QC): 6 Lower Body Dressing (QC): 6 On/Off Footwear (QC): 6 Additional Goals: 1-Demonstrate ADL Tasks, 2-Verbalize Understanding, 3- ImproveStrength/Drew 1=Demonstrate adherence to instructed precautions during ADL tasks. 2=Patient will verbalize/demonstrate understanding of assistive devices/modifications for ADL. 3=Patient will improve strength/tolerance for activity to enable patient to perform ADL's. OT Education/Plan Problem List/Assessment Assessment: Decreased Activ Tolerance, Decreased UE Strength, Dependent Transfers, Impaired Coordination, Impaired Funct Balance, Impaired I ADL's, Impaired Self-Care Skills, Restricted Funct UE ROM Discharge Recommendations Plan/Recommendations: Continue POC Therapy Discharge Recommendati: 24 Hour Supervision, Home & Family, Post Acute OT Treatment Plan/Plan of Care Treatment,Training & Education: Yes Patient would benefit from OT for education, treatment and training to promote independence in ADL's, mobility, safety and/or upper extremity function for ADL's. Plan of Care: ADL Retraining, Caregiver Training, Concurrent Therapy, Functional Mobility, Group Exercise/Act as Ind, UE Funct Exercise/Act, UE Neuromus Re-Ed/Coord Treatment Duration: Nov 20, 2019 Frequency: At least 5 of 7 days/Wk (IRF) Estimated Hrs Per Day: 1.5 hours per day Agreement: Yes Rehab Potential: Fair Time/GCodes Start Time: 10:00 Stop Time: 11:00 Total Time Billed (hr/min): 60 Billed Treatment Time 1, ADL x 4 KEVIN GREEN OT Nov 09, 2019 12:51
--- NOTE | 2019-11-09 13:24 | NUR ---
Initial visit: The pt shared he has CHF and COPD and continues to experience challenges with balancing hydration. He shared several "close calls" with various illnesses over the past 30 years, and verbalized his belief that God has been protecting and helping him throughout his life. The pt demonstrates positive coping and resilient spirit.
--- NOTE | 2019-11-09 14:16 | NUR ---
CM/SS ADMISSION Patient was admitted to ARU 11/06/19 from [facility] for debility. Additional comorbidities, in part, HF rEF, COPD and O2 dependence (noc), kidney disease, seizure disorder. Prior to hospitalization patient resided at home with his spouse Shira Reddy. She reports he was driving himself to outpatient therapies about two weeks ago. He was functionally mobile with a FWW with left platform. DME: FWW with left platform, noc O2 with [facility], nebulizer, transport chair, walk-in tub with handheld shower. PCP: Dr. Brendon Trejo MD, [facility] INSURANCE: Medicare, [employer]. [facility] overall. PHARMACY: [facility], [place], operated by [facility] ADVANCED DIRECTIVES: YES, spouse Shira is agent. Document is from 1990 but remains in effect. CONTACTS: Patient has 4 children, Shira has 3. Patient and spouse do not have any biological children together. Shira Reddy, DPOA-HC and Spouse [address] [place] [id number] Elizabeth Mena, Daughter [address] [place] [address] Marvin Reddy, Son [phone] Patient goal is to return home. Anticipate O2 upgrade to continuous and [facility] services for post hospital care plan. Patient has history of stay at [facility] for 24 days and had been participating in outpatient PT/OT. He has also continued in all graduated phases of cardiac rehab for approx 20 years, apparently now in Phase III. Patient/spouse understand the purpose and process of weekly rehab team conference as it pertains to progress toward goals and discharge planning.
--- NOTE | 2019-11-09 15:12 | Occupational Ther Daily Note ---
OT Current Status-Daily Note Subjective No pain reported. Appearance Pt. up in chair. Agrees to work with OT. Mental Status/Objective Patient Orientation: Person, Place ADL-Treatment Therapy Code Descriptions/Definitions Functional [place] Measure: 0=Not Assessed/NA 4=Minimal Assistance 1=Total Assistance 5=Supervision or Setup 2=Maximal Assistance 6=Modified [place] 3=Moderate Assistance 7=Complete IndependenceSCALE: Activities may be completed with or without assistive devices. 9-Wdfmreonkr-[place] completes the activity by him/herself with no assistance from a helper. 5-Set-up or Clean-up Assistance-helper sets up or cleans up; patient completes activity. [place] assists only prior to or following the activity. 4-Supervision or Touching Assistance-helper provides verbal cues and/or touching/steadying and/or contact guard assistance as patient completes activity. Assistance may be provided throughout the activity or intermittently. 3-Partial/Moderate Assistance-helper does LESS THAN HALF the effort. [place] lifts, holds or supports trunk or limbs, but provides less than half the effort. 2-Substantial/Maximal Assistance-helper does MORE THAN HALF the effort. [place] lifts or holds trunk or limbs and provides more than half the effort. 3-Irbdknule-vlwizj does ALL the effort. Patient does none of the effort to complete the activity. Or, the assistance of 2 or more helpers is required for the patient to complete the activity. If activity was not attempted, code reason: 7-Patient Refused. 9-Not Applicable-not attempted and the patient did not perform the activity before the current illness, exacerbation or injury. 10-Not Attempted due to Environmental Limitations-(lack of equipment, weather restraints, etc.). 88-Not Attempted due to Medical Conditions or Safety Concerns. Other Treatment Pt. agrees to work with OT. Pt. participated in gentle PROM to left shoulder, elbow, fingers in all planes. Pt. able to actively abduct/flex left shoulder to approximately 90 degrees. OT facilitated further stretch to tolerance level, as well as pectoral stretch. Pt. has difficulty with active elbow flexion, but is able to demonstrates 1/2 motion. Very limited trace movements noted with finger movement. However, pt. issued hand therapy sponge and able to initiate hand squeeze with trace movements to ability. Pt. requires encouragement to continue with exercises, as he will get distracted. All needs met in room. Education OT Patient Education: Correct positioning, Exercise program, Progress toward Goal/Update tx plan, Purpose of tx/functional activities, Reviewed precautions, Rehab process, Transfer techniques Teaching Recipient: Patient Teaching Methods: Demonstration, Discussion Response to Teaching: Verbalize Understanding, Return Demonstration OT Short Term Goals Short Term Goals Time Frame: Nov 13, 2019 Upper body dressin Lower body dressin OT Fence Erector Goals Detention Goals Time Frame: Nov 20, 2019 Eating (QC): 6 Oral Hygiene (QC): 6 Toileting Hygiene (QC): 6 Shower/Bathe Self (QC): 5 Upper Body Dressing (QC): 6 Lower Body Dressing (QC): 6 On/Off Footwear (QC): 6 Additional Goals: 1-Demonstrate ADL Tasks, 2-Verbalize Understanding, 3- ImproveStrength/Drew 1=Demonstrate adherence to instructed precautions during ADL tasks. 2=Patient will verbalize/demonstrate understanding of assistive devices/modifications for ADL. 3=Patient will improve strength/tolerance for activity to enable patient to perform ADL's. OT Education/Plan Problem List/Assessment Assessment: Decreased Activ Tolerance, Decreased UE Strength, Dependent Transfers, Impaired Funct Balance, Impaired I ADL's, Impaired Self-Care Skills, Restricted Funct UE ROM Discharge Recommendations Plan/Recommendations: Continue POC Treatment Plan/Plan of Care Treatment,Training & Education: Yes Patient would benefit from OT for education, treatment and training to promote independence in ADL's, mobility, safety and/or upper extremity function for ADL's. Plan of Care: ADL Retraining, Caregiver Training, Concurrent Therapy, Functional Mobility, Group Exercise/Act as Ind, UE Funct Exercise/Act, UE Neuromus Re-Ed/Coord Treatment Duration: Nov 20, 2019 Frequency: At least 5 of 7 days/Wk (IRF) Estimated Hrs Per Day: 1.5 hours per day Agreement: Yes Rehab Potential: Fair Time/GCodes Start Time: 13:30 Stop Time: 14:00 Total Time Billed (hr/min): 30 Billed Treatment Time 1, EX x 15minutes, FA x 15minutes KEVIN GREEN OT Nov 09, 2019 15:12
--- NOTE | 2019-11-09 15:38 | NUR ---
"RD ASSESSMENT PMHx: COPD; emphysema; CAD; hypercholesterolemia; HTN; seizures; stroke; CA(skin) PT INTERACTION: Pt was awake and pleasant during nutrition assessment. Pt states current appetite is pretty poor. Note avg PO intake of 75% x3d, per chart review. Pt states following a regular diet at home, and has some difficulty chewing d/t false teeth. Pt states no recent issues with n/v/c/d at this time. Note last BM was 11/07, and pt currently on bowel regimen of senna BID; and miralax BID, per chart review. Pt states no recent wt changes. Note unable to determine recent wt hx, per chart review. ABNORMAL NUTRITION-RELATED LAB VALUES LOW: Na 131; Cl 93 HIGH: BUN 79; cr 1.68; AST 64; ALT 85 Est. kcal needs: 7318-1903 kcal | 25-30 kcal/kg Est. Pro needs: 72-90 g Pro | 0.8-1.0 g Pro/kg PES STATEMENT: Inadequate oral intake (NI-2.1) related to loss of appetite as evidenced by pt interview INTERVENTION: Continue with current diet order of 2000mg Na diet. Pt may benefit from nutrition supplementation if PO intake declines. Will continue to follow and reassess as pt needs, intake, and status change. MONITOR/EVALUATE: PO Intake; Plan of Care; Hydration Status; Weight Status; Lab Values Colin Ken, MS, RD, LD"
--- NOTE | 2019-11-09 16:01 | Physical Therapy Daily Note ---
PT Daily Note-Current Subjective Agrees to PT Mental Status Attachments: Oxygen (ins itu during and post treatment), IV Transfers SCALE: Activities may be completed with or without assistive devices. 9-Pdrvyzklvh-dqxkumz completes the activity by him/herself with no assistance from a helper. 5-Set-up or Clean-up Assistance-helper sets up or cleans up; patient completes activity. [place] assists only prior to or following the activity. 4-Supervision or Touching Assistance-helper provides verbal cues and/or touching/steadying and/or contact guard assistance as patient completes activity. Assistance may be provided throughout the activity or intermittently. 3-Partial/Moderate Assistance-helper does LESS THAN HALF the effort. [place] lifts, holds or supports trunk or limbs, but provides less than half the effort. 2-Substantial/Maximal Assistance-helper does MORE THAN HALF the effort. [place] lifts or holds trunk or limbs and provides more than half the effort. 3-Hnfaedhez-ainotn does ALL the effort. Patient does none of the effort to complete the activity. Or, the assistance of 2 or more helpers is required for the patient to complete the activity. If activity was not attempted, code reason: 7-Patient Refused. 9-Not Applicable-not attempted and the patient did not perform the activity before the current illness, exacerbation or injury. 10-Not Attempted due to Environmental Limitations-(lack of equipment, weather restraints, etc.). 88-Not Attempted due to Medical Conditions or Safety Concerns. Treatments Sit to stand with CGA with cues for hand placement and assist with left UE. Pt ambualted 75 ft x 3 withFWW platformwith CGA. Sit to stand 2 x 5 reps. Pt up in chair post treatment with needsmet. Assessment Current Status: Good Progress PT Short Term Goals Short Term Goals Time Frame: Nov 13, 2019 Roll Left & Right: 4 Sit to lyin Lying to sitting on side of be: 4 Sit to stand: 4 Chair/tye-ob-vuzzc transfer: 4 Walk 10 feet: 4 Walk 50 feet with two turns: 4 Walk 150 feet: 4 PT Trouble Lineman Goals Alf Goals PT Trouble Lineman Goals Time Frame: Nov 27, 2019 Roll Left & Right (QC): 6 Sit to Lying (QC): 6 Lying-Sitting on Side/Bed(QC): 6 Sit to Stand (QC): 6 Chair/Arg-kk-Jrbrz Xfer(QC): 6 Toilet Transfer (QC): 6 Car Transfer (QC): 6 Walk 10 feet (QC): 4 Walk 50ft with 2 Turns (QC): 4 Walk 150 ft (QC): 4 Walking 10ft on Uneven Surface: 4 PT Plan Problem List Problem List: Activity Tolerance, Functional Strength, Safety, Balance, Gait, Transfer Treatment/Plan Treatment Plan: Continue Plan of Care Treatment Plan: Bed Mobility, Education, Functional Activity Drew, Functional Strength, Group Therapy, Gait, Safety, Therapeutic Exercise, Transfers Treatment Duration: Nov 27, 2019 Frequency: At least 5 of 7 days/Wk (IRF) Estimated Hrs Per Day: 1.5 hours per day Patient and/or Family Agrees t: Yes Safety Risks/Education Patient Education: Transfer Techniques Teaching Recipient: Patient Teaching Methods: Discussion Response to Teaching: Reinforcement Needed Time/GCodes Time In: 1445 Time Out: 1515 Total Billed Treatment Time: 30 Total Billed Treatment visit GT 30 JERARDO SIMMONS PT Nov 09, 2019 16:01
[2019-11-09 17:27] VITALS: BP 124/65
[2019-11-09] MEDS: PHENobarbital 64.8 MG (1 GRAIN) TAb PO SCH (20:02)
[2019-11-09] MEDS: ENOXAPARIN 40 MG/0.4 ML (LOVENOX) SYR SC SCH (20:03)
[2019-11-09] MEDS: MONTELUKAST 10 MG (SINGULAIR) TAB PO SCH (20:03)
[2019-11-09] MEDS: SIMvastatin 10 MG (ZOCOR) TAB PO SCH (20:10)
[2019-11-10] MEDS: NS IV 1000 ML 1,000 ML IV SCH (00:02)
[2019-11-10] MEDS: RT-ALBUTEROL/IPRATROPIUM 3 ML (DUONEB) VIAL INH SCH (02:14)
--- NOTE | 2019-11-10 02:23 | NUR ---
INFORMED DR. JOY THAT PATIENT IS SOA AND SIGNIFICANTLY WHEEZY WHILE 86% O2 ON 4L NC AND IS CURRENTLY GETTING A BREATHING TREATMENT. RECEIVED ORDER TO HEP LOCK IV FLUIDS AND TO NOTIFY CARDIOLOGY. 0230-CALLED DR. BRAUN AND INFORMED HIM OF THE ABOVE INFORMATION REGARDING PATIENT CONDITION. RECEIVED ORDER FOR 60MG IV LASIX NOW IN PLACE OF THE 0900 PO LASIX ORDER FOR TODAY AND THEN TO CONTINUE WITH THE 40MG PO LASIX ORDER TOMORROW AM.
[2019-11-10] MEDS ORDERED: FUROSEMIDE 40 MG/4 ML INJ (LASIX) IVP ONE (02:45)
[2019-11-10 03:30] VITALS: BP 141/63
[2019-11-10] MEDS ORDERED: LIDOCAINE UROJET 2% GEL 10 ML PKG ONE (03:33)
--- NOTE | 2019-11-10 03:35 | NUR ---
INFORMED DR. JOY THAT DR. BRAUN ORDERED 60MG IV LASIX AND THAT WAS ADMINISTERED AND FLUIDS STOPPED. HOWEVER, PATIENT IS STILL WORKING HARD TO BREATHE WITH THE FOLLOWING VS-141/63, 101, 89% ON 6L NC AND 32 RESP. CONCERNED THAT PATIENT IS BECOMING LETHARGIC. 200ML URINE OUTPUT SO FAR FROM LASIX. RECEIVED ORDER FOR POLINA.
--- NOTE | 2019-11-10 04:10 | NUR ---
AT PATIENT'S REQUEST, CALLED TO UPDATE HER ON PATIENT'S CONDITION. PATIENT SPOKE TO ON PHONE AND STATES THAT SHE WILL BE IN TO SEE PATIENT. 0430- AND FAMILY AT BEDSIDE. PATIENT CONTINUE TO EXPERIENCE IMPENDING DOOM. 0515-UPDATED DR. JOY ON PATIENT'S CONDITION. LET HER KNOW THAT PATIENT IS DOING BETTER WITH 700 CC URINE OUTPUT, BUT THAT PATIENT REQUESTED THAT HIS BE CALLED AND CONTINUES TO TALK ABOUT DYING. HE IS STILL CURRENTLY ON 6L NC AND O2 IS 87% AND DECREASED WHEN HE TALKS. RECEIVED ORDERS TO TRANSFER PATIENT TO ICU. 0541-PATIENT TRANSFERRED TO - AND REPORT GIVEN TO KRISTIAN SPICER.
[2019-11-10 04:30] VITALS: BP 153/74
[2019-11-10 05:30] VITALS: BP 135/53
--- NOTE | 2019-11-10 08:42 | Discharge Summary ---
Diagnosis/Chief Complaint Date of Admission Nov 06, 2019 at 11:08 Date of Discharge Discharge Diagnosis Assessment: COPD myopathy Debility acute on chronic Severe COPD O2 dependence Hypothyroidism CHF Cardiomyopathy Pacemaker Depression Seizure d/o Pseudoseizures CVA hx Plan: Steroids weaning Lasix Voiding well since catheter DC Monitor bowels O2 4L/min maintenance Check CXR and ABG May be too fragile for IRF (1) Debility Status: Acute (2) Acute kidney injury superimposed on chronic kidney disease Status: Acute (3) Acute on chronic HFrEF (heart failure with reduced ejection fraction) Status: Acute (4) Near syncope Status: Acute (5) COPD exacerbation Status: Acute Discharge Summary Discharge Physical Examination Allergies: Coded Allergies: amiodarone (Verified Allergy, Severe, 03/13/19) lorazepam (Verified Allergy, Unknown, 03/13/19) scopolamine (Verified Allergy, Unknown, 03/13/19) Vitals & I&Os Vital Signs Date Time Temp Pulse Resp B/P (MAP) Pulse Ox O2 Delivery O2 Flow Rate FiO2 11/10/19 05:30 36.8 104 26 135/53 (80) 87 High Flow N/C 6.00 General Appearance: Alert, Oriented X3, Cooperative Respiratory: Clear to Auscultation Cardiovascular: Regular Rate Neuro: Normal Gait, Normal Speech, Strength at 5/5 X4 Ext Psych/Mental Status: Mental Status NL Hospital Course Was the Problem List Reviewed?: Yes Hospital course: Pt had an uneventful and brief hospital course before decompensating and requiring an ICU transfer due to respiratory failure, he was admitted although complex medical problems and advanced age at 79 precluded anything but a poor prognosis, he was assessed to be in need of strengthening before going home. He overall stabilized at his time during rehab but creatinine of 1.6 and volume depletion with hyponatremia occurred requiring IV fluids that were gently initiated by Dr. Bhandari cardiology, his regular manager home healthcare and it appeared that he became dyspneic, hypoxic and required ICU transfer. The account will be closed, he has such severe chronic debility it will be impossible to meet the regulatory requirements of inpatient rehab after this episode. Labs (last 24 hrs) Laboratory Tests 11/07/19 07:02: White Blood Count 5.0, Red Blood Count 4.25L, Hemoglobin 13.5, Hematocrit 40, Mean Corpuscular Volume 94, Mean Corpuscular Hemoglobin 32, Mean Corpuscular Hemoglobin Concent 34, Red Cell Distribution Width 13.7, Platelet Count 140, Mean Platelet Volume 10.9H, Neutrophils (%) (Auto) 53, Lymphocytes (%) (Auto) 23, Monocytes (%) (Auto) 21H, Eosinophils (%) (Auto) 2, Basophils (%) (Auto) 1, Neutrophils # (Auto) 2.7, Lymphocytes # (Auto) 1.2, Monocytes # (Auto) 1.1H, Eosinophils # (Auto) 0.1, Basophils # (Auto) 0.0, Neutrophils % (Manual) 57, Lymphocytes % (Manual) 19, Monocytes % (Manual) 18, Eosinophils % (Manual) 6, Basophils % (Manual) 0, Band Neutrophils 0, Blood Morphology Comment NORMAL, Sodium Level 133L, Potassium Level 4.2, Chloride Level 96L, Carbon Dioxide Level 25, Anion Gap 12, Blood Urea Nitrogen 60H, Creatinine 1.14, Estimat Glomerular Filtration Rate > 60, BUN/Creatinine Ratio 53, Glucose Level 106H, Calcium Level 9.1, Corrected Calcium 9.3, Total Bilirubin 0.3, Aspartate Amino Transf (AST/SGOT) 67H, Alanine Aminotransferase (ALT/SGPT) 70H, Alkaline Phosphatase 147H, Total Protein 8.4H, Albumin 3.8 11/09/19 05:28: White Blood Count 5.7, Red Blood Count 4.04L, Hemoglobin 12.8L, Hematocrit 38L, Mean Corpuscular Volume 94, Mean Corpuscular Hemoglobin 32, Mean Corpuscular Hemoglobin Concent 34, Red Cell Distribution Width 13.6, Platelet Count 139, Mean Platelet Volume 12.1H, Neutrophils (%) (Auto) 60, Lymphocytes (%) (Auto) 22, Monocytes (%) (Auto) 15H, Eosinophils (%) (Auto) 2, Basophils (%) (Auto) 1, Neutrophils # (Auto) 3.4, Lymphocytes # (Auto) 1.3, Monocytes # (Auto) 0.9, Eosinophils # (Auto) 0.1, Basophils # (Auto) 0.0, Sodium Level 131L, Potassium Level 4.1, Chloride Level 93L, Carbon Dioxide Level 26, Anion Gap 12, Blood Urea Nitrogen 79H, Creatinine 1.68H, Estimat Glomerular Filtration Rate 39, BUN/Creatinine Ratio 47, Glucose Level 100, Calcium Level 8.7, Corrected Calcium 9.1, Total Bilirubin 0.4, Aspartate Amino Transf (AST/SGOT) 64H, Alanine Aminotransferase (ALT/SGPT) 85H, Alkaline Phosphatase 124, Total Protein 8.0, Albumin 3.5 11/09/19 09:05: Blood Gas Puncture Site RIGHT RADIAL, Blood Gas Patient Temperature 37.2, Arteri al Blood pH 7.41, Arterial Blood Partial Pressure CO2 47H, Arterial Blood Partial Pressure O2 65L, Arterial Blood HCO3 29H, Arterial Blood Total CO2 30.6, Arterial Blood Oxygen Saturation 92L, Arterial Blood Base Excess 4.7H, Amrit Test POSITIVE, Blood Gas Ventilator Setting NO, Blood Gas Inspired Oxygen 3 L Pending Labs Laboratory Tests 11/07/19 07:02: White Blood Count 5.0, Red Blood Count 4.25, Hemoglobin 13.5, Hematocrit 40, Mean Corpuscular Volume 94, Mean Corpuscular Hemoglobin 32, Mean Corpuscular Hemoglobin Concent 34, Red Cell Distribution Width 13.7, Platelet Count 140, Mean Platelet Volume 10.9, Neutrophils (%) (Auto) 53, Lymphocytes (%) (Auto) 23, Monocytes (%) (Auto) 21, Eosinophils (%) (Auto) 2, Basophils (%) (Auto) 1, Neutrophils # (Auto) 2.7, Lymphocytes # (Auto) 1.2, Monocytes # (Auto) 1.1, Eosinophils # (Auto) 0.1, Basophils # (Auto) 0.0, Neutrophils % (Manual) 57, Lymphocytes % (Manual) 19, Monocytes % (Manual) 18, Eosinophils % (Manual) 6, Basophils % (Manual) 0, Band Neutrophils 0, Blood Morphology Comment NORMAL, Sodium Level 133, Potassium Level 4.2, Chloride Level 96, Carbon Dioxide Level 25, Anion Gap 12, Blood Urea Nitrogen 60, Creatinine 1.14, Estimat Glomerular Filtration Rate > 60, BUN/Creatinine Ratio 53, Glucose Level 106, Calcium Level 9.1, Corrected Calcium 9.3, Total Bilirubin 0.3, Aspartate Amino Transf (AST/SGOT) 67, Alanine Aminotransferase (ALT/SGPT) 70, Alkaline Phosphatase 147, Total Protein 8.4, Albumin 3.8 11/09/19 05:28: White Blood Count 5.7, Red Blood Count 4.04, Hemoglobin 12.8, Hematocrit 38, Mean Corpuscular Volume 94, Mean Corpuscular Hemoglobin 32, Mean Corpuscular Hemoglobin Concent 34, Red Cell Distribution Width 13.6, Platelet Count 139, Mean Platelet Volume 12.1, Neutrophils (%) (Auto) 60, Lymphocytes (%) (Auto) 22, Monocytes (%) (Auto) 15, Eosinophils (%) (Auto) 2, Basophils (%) (Auto) 1, Neutrophils # (Auto) 3.4, Lymphocytes # (Auto) 1.3, Monocytes # (Auto) 0.9, Eosinophils # (Auto) 0.1, Basophils # (Auto) 0.0, Sodium Level 131, Potassium Level 4.1, Chloride Level 93, Carbon Dioxide Level 26, Anion Gap 12, Blood Urea Nitrogen 79, Creatinine 1.68, Estimat Glomerular Filtration Rate 39, BUN/Creatinine Ratio 47, Glucose Level 100, Calcium Level 8.7, Corrected Calcium 9.1, Total Bilirubin 0.4, Aspartate Amino Transf (AST/SGOT) 64, Alanine Aminotransferase (ALT/SGPT) 85, Alkaline Phosphatase 124, Total Protein 8.0, Albumin 3.5 11/09/19 09:05: Blood Gas Puncture Site RIGHT RADIAL, Blood Gas Patient Temperature 37.2, Arterial Blood pH 7.41, Arterial Blood Partial Pressure CO2 47, Arterial Blood Partial Pressure O2 65, Arterial Blood HCO3 29, Arterial Blood Total CO2 30.6, Arterial Blood Oxygen Saturation 92, Arterial Blood Base Excess 4.7, Amrit Test POSITIVE, Blood Gas Ventilator Setting NO, Blood Gas Inspired Oxygen 3 L Discharge Home Medications: Active Scripts Active Reported Albuterol Sulfate 2.5 Mg/0.5 Ml Vial.neb 2.5 Mg INH Q4 -6H PRN WHEN PT IS IN A COPB FLARE HE TAKING A TREAMENT EVERY 4-6 HOURS *3-4 TIMES DAILY) Vitamin B12 (Cyanocobalamin (Vitamin B-12)) 2,500 Mcg Tablet 2,500 Mcg PO DAILY Vitamin B-6 (Pyridoxine HCl) 25 Mg Tablet 25 Mg PO DAILY Vitamin D3 (Cholecalciferol (Vitamin D3)) 50 Mcg Capsule 50 Mcg PO DAILY Mucinex (Guaifenesin) 600 Mg Tab.er.12h 600 Mg PO BID PRN Metronidazole 45 Gm Gel..gram. 1 Applic TD DAILY PRN APPLIES TO THE FOREHEAD Clobetasol Propionate 15 Gm Cream..g. 1 Applic TOP BID MIXES WITH MOSTURIZER (EURICIN OR VANICREAM) AND APPLIES TO THE LEFT ARM AND SPOT ON CHEST TWICE DAILY Miralax (Polyethylene Glycol 3350) 17 Gm Powd.pack 17 Gm PO DAILY Lumigan (Bimatoprost) 2.5 Ml Drops 1 Drop OD HS Chlorhexidine Gluconate 473 Ml Mouthwash 5-10 Ml MT BID RINSE AND SPIT TWICE DAILY Symbicort 160-4.5 Mcg Inhaler (Budesonide/Formoterol Fumarate) 10.2 Gm Hfa.aer.ad 2 Puff IH BID Montelukast Sodium 10 Mg Tablet 10 Mg PO HS Furosemide 40 Mg Tablet 40 Mg PO DAILY Phenobarbital 64.8 Mg Tablet 129.6 Mg PO HS TAKES 2 (64.8MG) TABS TO EQUAL 129.6MG Lisinopril 5 Mg Tablet 5 Mg PO DAILY Metoprolol Succinate 50 Mg Tab.er.24h 50 Mg PO DAILY Digoxin 250 Mcg Tablet 250 Mcg PO DAILY Phenytoin Sodium Extended 100 Mg Capsule 200 Mg PO DAILY TAKES 2 (100MG) CAPS IN THE MORNING AND 3 (100MG) CAPS AT 1800 Phenytoin Sodium Extended 100 Mg Capsule 300 Mg PO 1800 TAKES 2 (100MG) CAPS IN THE MORNING AND 3 (100MG) CAPS AT 1800 Aspirin EC (Aspirin) 81 Mg Tablet.dr 81 Mg PO DAILY Simvastatin 10 Mg Tablet 10 Mg PO HS Levothyroxine Sodium 75 Mcg Tablet 75 Mcg PO DAILY Instructions to patient/family Please see electronic discharge instructions given to patient. Diagnosis/Problems Diagnosis/Problems (1) Debility Status: Acute (2) Acute kidney injury superimposed on chronic kidney disease Status: Acute (3) Acute on chronic HFrEF (heart failure with reduced ejection fraction) Status: Acute (4) Near syncope Status: Acute (5) COPD exacerbation Status: Acute Clinical Quality Measures DVT/VTE Risk/Contraindication: Risk Factor Score Per Nursin RFS Level Per Nursing on Admit: 4+=Very High RONAK JOY DO Nov 10, 2019 08:42
[2019-11-10] MEDS ORDERED: FUROSEMIDE 40 MG (LASIX) TAB PO SCH (09:00)
--- NOTE | 2019-11-10 10:58 | Therapy Team Discharge Summary ---
Therapy Discharge Summary Discharge Recommendations Date of Discharge Physical Therapy This patient was admitted to ARU post acute hospital stay for continued skilled therapy services and medical management. His stay was short due to transfer to ICU and no goals met. At initial evaluation, he was grossly min assist with all mobility and at discharge, he was min-CGA with mobility. DC from ARU due to transfer to ICU. Occupational Therapy Decreased Activ Tolerance, Decreased UE Strength, Dependent Transfers, Impaired Funct Balance, Impaired I ADL's, Impaired Self-Care Skills, Restricted Funct UE ROM PT Long-Term Goals Engineering Geologist Goals PT Engineering Geologist Goals Time Frame: Nov 27, 2019 Roll Left to Right (QC): 6 Sit to Lying (QC): 6 Lying-Sitting on Side/Bed(QC): 6 Sit to Stand (QC): 6 Chair/Ejg-qo-Nobob Xfer(QC): 6 Car Transfer (QC): 6 Walk 10 feet (QC): 4 Walk 10ft-Uneven Surface(QC): 4 Walk 50ft with 2 Turns (QC): 4 Walk 150 ft (QC): 4 No goals met due to short LOS and transfer to ICU OT Engineering Geologist Goals Long-Term Goals Time Frame: Nov 20, 2019 Eating (QC): 6 Oral Hygiene (QC): 6 Shower/Bathe Self (QC): 5 Upper Body Dressing (QC): 6 Lower Body Dressing (QC): 6 On/Off Footwear (QC): 6 Toileting Hygiene (QC): 6 Toilet/Commode Transfer (QC): 6 Additional Goals: 1-Demonstrate ADL Tasks, 2-Verbalize Understanding, 3- ImproveStrength/Drew 1=Demonstrate adherence to instructed precautions during ADL tasks. 2=Patient will verbalize/demonstrate understanding of assistive devices/modifications for ADL. 3=Patient will improve strength/tolerance for activity to enable patient to perform ADL's. JERARDO SIMMONS PT Nov 10, 2019 10:58
--- NOTE | 2019-11-10 13:30 | Therapy Team Discharge Summary ---
Therapy Discharge Summary Discharge Recommendations Date of Discharge 11-09-19 Therapy D/C Recommendations: 24 hr Supervision Occupational Therapy Pt. had been seen by occupational therapy to increase overall strength and independence. Pt. transferred to medical floor due to change in medical status. No goals met at this time. Decreased Activ Tolerance, Decreased UE Strength, Dependent Transfers, Impaired Funct Balance, Impaired I ADL's, Impaired Self-Care Skills, Restricted Funct UE ROM PT Prison Goals Body Stylist Goals PT Prison Goals Time Frame: Nov 27, 2019 Roll Left to Right (QC): 6 Sit to Lying (QC): 6 Lying-Sitting on Side/Bed(QC): 6 Sit to Stand (QC): 6 Chair/Eai-ja-Vgxsv Xfer(QC): 6 Car Transfer (QC): 6 Walk 10 feet (QC): 4 Walk 10ft-Uneven Surface(QC): 4 Walk 50ft with 2 Turns (QC): 4 Walk 150 ft (QC): 4 OT Prison Goals Body Stylist Goals Time Frame: Nov 20, 2019 Eating (QC): 6 (not met) Oral Hygiene (QC): 6 (not met) Shower/Bathe Self (QC): 5 (not met) Upper Body Dressing (QC): 6 (not met) Lower Body Dressing (QC): 6 (not met) On/Off Footwear (QC): 6 (not met) Toileting Hygiene (QC): 6 (not met) Toilet/Commode Transfer (QC): 6 (not met) Additional Goals: 1-Demonstrate ADL Tasks, 2-Verbalize Understanding, 3- ImproveStrength/Drew 1=Demonstrate adherence to instructed precautions during ADL tasks. 2=Patient will verbalize/demonstrate understanding of assistive devices/modifications for ADL. 3=Patient will improve strength/tolerance for activity to enable patient to perform ADL's. KEVIN GREEN OT Nov 10, 2019 13:30
== END 2019-11-13 09:38 | disposition short-term general hospital (02) | DRG 91 ==
PROVIDERS: ADMIT Internal Medicine; ATTEND Internal Medicine
DX: G72.89 Other specified myopathies (principal); J43.9 Emphysema, unspecified; I13.0 Hypertensive heart and chronic kidney disease with heart failure and stage 1 through stage 4 chronic kidney disease, or unspecified chronic kidney disease; I50.23 Acute on chronic systolic (congestive) heart failure; J96.91 Respiratory failure, unspecified with hypoxia; E87.1 Hypo-osmolality and hyponatremia; N28.9 Disorder of kidney and ureter, unspecified; N18.9 Chronic kidney disease, unspecified; E86.9 Volume depletion, unspecified; I08.1 Rheumatic disorders of both mitral and tricuspid valves; I25.5 Ischemic cardiomyopathy; J06.9 Acute upper respiratory infection, unspecified; K21.9 Gastro-esophageal reflux disease without esophagitis; I69.398 Other sequelae of cerebral infarction; G40.909 Epilepsy, unspecified, not intractable, without status epilepticus; M48.07 Spinal stenosis, lumbosacral region; F41.9 Anxiety disorder, unspecified; F32.9 Major depressive disorder, single episode, unspecified; E03.9 Hypothyroidism, unspecified; I25.10 Atherosclerotic heart disease of native coronary artery without angina pectoris; E78.5 Hyperlipidemia, unspecified; Z99.81 Dependence on supplemental oxygen; Z95.1 Presence of aortocoronary bypass graft; Z95.810 Presence of automatic (implantable) cardiac defibrillator; Z95.0 Presence of cardiac pacemaker; I65.23 Occlusion and stenosis of bilateral carotid arteries; T50.2X5A Adverse effect of carbonic-anhydrase inhibitors, benzothiadiazides and other diuretics, initial encounter
CPT/HCPCS: 36415; 71045; 80053; 82805; 85007; 85025; 85027; 94640; 94664; 94760

== ENCOUNTER 2019-11-10 05:35 | Inpatient (IN) | payer MEDICARE ==
[2019-11-10] VITALS (22 sets, daily range): BP systolic 106–159; BP diastolic 57–87
[~2019-11-10] VITALS: Ht 182.9 cm; Wt 85.7 kg
[2019-11-10] MEDS ORDERED: MELATONIN 3 MG TABLET PO PRN (06:15)
[2019-11-10] MEDS ORDERED: ACETAMINOPHEN 500 MG TAB (TYLENOL) PO PRN (06:15)
[2019-11-10] MEDS ORDERED: HYDROcodone/APAP 5 MG/325 MG (LORTAB) TAB PO PRN (06:15)
[2019-11-10] MEDS ORDERED: ONDANSETRON 4 MG/2 ML (SDV) Z0FRAN IVP PRN (06:15)
[2019-11-10] MEDS ORDERED: ALPRAZolam 0.25 MG (XANAX) TAB PO PRN (06:15)
[2019-11-10] MEDS ORDERED: DOCUSATE SODIUM 100 MG (COLACE) CAP PO PRN (06:15)
[2019-11-10] MEDS ORDERED: morphine INJ 10 MG/ML 1ML (SYR OR VIAL) IVP PRN (06:15)
[2019-11-10] MEDS ORDERED: ONDANSETRON 4 MG (ZOFRAN) ORAL DISSOLVE TAB PO PRN (06:15)
[2019-11-10] MEDS ORDERED: diphenhydrAMINE 25 MG TAB (BENADRYL) PO PRN (06:15)
[2019-11-10] MEDS ORDERED: CALCIUM CARBONATE 500 MG (TUMS) TAB.CHEW PO PRN (06:15)
--- NOTE | 2019-11-10 06:40 | Pulmonary Consultation ---
History of Present Illness History of Present Illness Date Seen by Provider: Nov 10, 2019 Time Seen by Provider: 06:34 Date of Admission History of Present Illness 79yo with hx of Afib, COPD, suizures, CAD, CHF and recent hospitalization secondary to respiratory distress, and persistent dry cough. He was admitted on 11/01 and treated for COPDAE and CHFAE. He was discharged to in rehab on 11/05. Last night he was having worsening respiratory distress and was transferred to ICU. He was given Lasix upon transfer to ICU. He does feel some improvement since getting Lasix. Allergies and Home Medications Allergies Coded Allergies: amiodarone (Verified Allergy, Severe, 03/13/19) lorazepam (Verified Allergy, Unknown, 03/13/19) scopolamine (Verified Allergy, Unknown, 03/13/19) Home Medications Albuterol Sulfate 2.5 Mg/0.5 Ml Vial.neb, 2.5 MG INH Q4 -6H PRN for SHORTNESS OF BREATH, (Reported) WHEN PT IS IN A COPB FLARE HE TAKING A TREAMENT EVERY 4-6 HOURS *3-4 TIMES DAILY) Aspirin 81 Mg Tablet.dr, 81 MG PO DAILY, (Reported) Bimatoprost 2.5 Ml Drops, 1 DROP OD HS, (Reported) Budesonide/Formoterol Fumarate 10.2 Gm Hfa.aer.ad, 2 PUFF IH BID, (Reported) Chlorhexidine Gluconate 473 Ml Mouthwash, 5-10 ML MT BID, (Reported) RINSE AND SPIT TWICE DAILY Cholecalciferol (Vitamin D3) 50 Mcg Capsule, 50 MCG PO DAILY, (Reported) Clobetasol Propionate 15 Gm Cream..g., 1 APPLIC TOP BID, (Reported) MIXES WITH MOSTURIZER (EURICIN OR VANICREAM) AND APPLIES TO THE LEFT ARM AND SPOT ON CHEST TWICE DAILY Cyanocobalamin (Vitamin B-12) 2,500 Mcg Tablet, 2,500 MCG PO DAILY, (Reported) Digoxin 250 Mcg Tablet, 250 MCG PO DAILY, (Reported) Furosemide 40 Mg Tablet, 40 MG PO DAILY, (Reported) Guaifenesin 600 Mg Tab.er.12h, 600 MG PO BID PRN for CONGESTION, (Reported) Levothyroxine Sodium 75 Mcg Tablet, 75 MCG PO DAILY, (Reported) Lisinopril 5 Mg Tablet, 5 MG PO DAILY, (Reported) Metoprolol Succinate 50 Mg Tab.er.24h, 50 MG PO DAILY, (Reported) Metronidazole 45 Gm Gel..gram., 1 APPLIC TD DAILY PRN for BREAKOUT, (Reported) APPLIES TO THE FOREHEAD Montelukast Sodium 10 Mg Tablet, 10 MG PO HS, (Reported) Phenobarbital 64.8 Mg Tablet, 129.6 MG PO HS, (Reported) TAKES 2 (64.8MG) TABS TO EQUAL 129.6MG Phenytoin Sodium Extended 100 Mg Capsule, 300 MG PO 1800, (Reported) TAKES 2 (100MG) CAPS IN THE MORNING AND 3 (100MG) CAPS AT 1800 Phenytoin Sodium Extended 100 Mg Capsule, 200 MG PO DAILY, (Reported) TAKES 2 (100MG) CAPS IN THE MORNING AND 3 (100MG) CAPS AT 1800 Polyethylene Glycol 3350 17 Gm Powd.pack, 17 GM PO DAILY, (Reported) Pyridoxine HCl 25 Mg Tablet, 25 MG PO DAILY, (Reported) Simvastatin 10 Mg Tablet, 10 MG PO HS, (Reported) Past Xqvvmyx-Zvridy-Miabkf Hx Patient Social History Type Used: Cigarettes Former Smoker, Quit: Jan 31, 1990 2nd Hand Smoke Exposure: No Recent Hopitalizations: Yes Immunizations Up To Date Tetanus Booster (TDap): Less than 5yrs PED Vaccines UTD: Yes Date of Pneumonia Vaccine: January 20, 2015 Date of Influenza Vaccine: May 10, 2019 Seasonal Allergies Seasonal Allergies: Yes Past Medical History Surgeries: Yes (hernia, oral, brain biopsy ) CABG, Eye Surgery Respiratory: Yes Chronic Bronchitis, COPD Currently Using CPAP: No Currently Using BIPAP: No Cardiac: Yes (CATH) Cardiomyopathy, Coronary Artery Disease, High Cholesterol, Hypertension, Peripheral Vascular Neurological: Yes (Brain biopsy 1990) Neuropathy, Seizure Disorder, Stroke Reproductive Disorders: No Sexually Transmitted Disease: No Genitourinary: Yes Bladder Infection, Renal Failure Gastrointestinal: Yes Abdominal Hernia 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) Degenerate Disk Disease, Arthritis, Chronic Back Pain Endocrine: Yes HEENT: Yes Cataract Hearing Impairment: Hard of Hearing Cancer: Yes (pre-skin cancer) Skin Did You Recieve Any Treatments: No Psychosocial: Yes Depression Integumentary: No (chronic rash over 2 months, vs pre skin cancer) Blood Disorders: No Adverse Reaction/Blood Tranf: No Family Medical History Arthritis 19 MOTHER, Cardiovascular disease G8 BROTHER, G8 BROTHER, , Age:67 G8 BROTHER G8 SISTER Cataracts G8 BROTHER, , Age:67 G8 BROTHER Completed stroke 19 MOTHER, Deafness or hearing loss G8 BROTHER G8 BROTHER Diabetes mellitus G8 SISTER Headache disorder 19 FATHER, 19 MOTHER, G8 BROTHER, G8 BROTHER, , Age:67 G8 BROTHER G8 BROTHER G8 SISTER Hypercholesterolemia G8 BROTHER, , Age:67 G8 BROTHER G8 BROTHER G8 SISTER Hypertension 19 MOTHER, G8 BROTHER G8 SISTER Myocardial infarction G8 BROTHER, , Age:67 G8 BROTHER G8 SISTER Respiratory disorder G8 BROTHER, Thyroid disease G8 SISTER No Family History of: AIDS Abdominal aortic aneurysm Gove's disease Alcoholism Alzheimer's disease Aphasia Asthma Cancer of mouth Colon cancer Congenital disease Congenital heart disease Cystic fibrosis Dementia Drug abuse Dysphasia Fibrocystic disease of breast Gastroenteritis Glaucoma Infertility Kidney disease Neoplasm Not obtainable due to adoption Osteoporosis Parkinson's disease Prostate cancer Psychosocial problem Seizure disorder Severe allergy Tuberculosis Visual disorder No Pertinent Family Hx Sepsis Event Evaluation Height, Weight, BMI Height: 6'0" Weight: 187lbs. 0.0oz. 84.399204vw; 25.82 BMI Method:Stated Exam Exam Vital Signs Date Time Temp Pulse Resp B/P (MAP) Pulse Ox O2 Delivery O2 Flow Rate FiO2 11/10/19 06:15 109 16 137/77 (97) 91 Nasal Cannula 5.00 11/10/19 06:00 110 27 137/69 (91) 92 Nasal Cannula 5.00 11/10/19 05:45 109 22 124/65 (84) 92 Nasal Cannula 5.00 11/10/19 05:38 37.4 11/10/19 05:38 111 28 152/75 (100) 91 Nasal Cannula 5.00 Height & Weight Height: 6'0" Weight: 187lbs. 0.0oz. 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 Carotid arterial disease, approx 50% R ICA stenosis, less than 40% L ICA stenosis per u/s of September 2019 Hx of nocturnal hypoxia -Neg PSG in past for [facility] RENTER[facility] DO Nov 10, 2019 06:40
[2019-11-10] MEDS ORDERED: RT-ALBUTEROL/IPRATROPIUM 3 ML (DUONEB) VIAL INH PRN (07:00)
[2019-11-10 07:35] LABS: ALKALINE PHOSPHATASE 132 U/L (40-136); BILIRUBIN,TOTAL 0.4 MG/DL (0.1-1.0); BUN/CREATININE RATIO 59; CALCIUM 8.9 MG/DL (8.5-10.1); CARBON DIOXIDE 27 MMOL/L (21-32); CHLORIDE 94 MMOL/L (98-107); CREATININE SERUM 1.03 MG/DL (0.60-1.30); GFR ESTIMATED > 60; GLUCOSE 136 MG/DL (70-105); MAGNESIUM 2.2 MG/DL (1.6-2.4); PHOSPHORUS 2.1 MG/DL (2.3-4.7); POTASSIUM 4.8 MMOL/L (3.6-5.0); SODIUM 132 MMOL/L (135-145)
[2019-11-10 07:36] LABS: ALANINE AMINOTRANSFERASE 125 U/L (0-55); ALBUMIN 3.6 GM/DL (3.2-4.5); TOTAL PROTEIN 8.7 GM/DL (6.4-8.2)
[2019-11-10 07:47] LABS: BASOPHILS % (AUTO) 0 % (0-10); EOSINOPHILS % (AUTO) 0 % (0-10); HEMATOCRIT 41 % (40-54); HEMOGLOBIN 13.8 G/DL (13.3-17.7); LYMPHOCYTES # (AUTO) 0.8 X 10^3 (1.0-4.0); LYMPHOCYTES % (AUTO) 7 % (12-44); MEAN CORPUSCULAR HEMOGLOBIN 32 PG (25-34); MEAN CORPUSCULAR HGB CONC 34 G/DL (32-36); MEAN CORPUSCULAR VOLUME 93 FL (80-99); MEAN PLATELET VOLUME 11.3 FL (7.4-10.4); MONOCYTES # (AUTO) 1.3 X 10^3 (0.0-1.0); MONOCYTES % (AUTO) 12 % (0-12); NEUTROPHILS # (AUTO) 8.9 X 10^3 (1.8-7.8); NEUTROPHILS % (AUTO) 81 % (42-75); PLATELET COUNT 163 10^3/uL (130-400); RED CELL DISTRIBUTION WIDTH 13.6 % (10.0-14.5); WHITE BLOOD COUNT 11.1 10^3/uL (4.3-11.0)
[2019-11-10] MEDS ORDERED: RT-ADVAIR HFA 115/21 MCG PER PUFF IH SCH (08:00)
[2019-11-10] MEDS ORDERED: PATIENT MAY USE OWN MED,SINGLE MED PO SCH (08:00)
--- NOTE | 2019-11-10 08:08 | Diagnostic Imaging Report ---
EXAMINATION: Chest radiograph, portable AP view. DATE: 11/10/2019 7:14 AM hours. INDICATION: 79-year-old male, shortness of breath. COMPARISON: November 09, 2019. FINDINGS: There are multiple surgical clips projecting over the medial aspect of the left chest. There are median sternotomy wires. There is an assist device. Heart size and mediastinal contours are unchanged. There is no identified pneumothorax. There is no large pleural effusion. There are fairly linear opacities in the right midlung and right lower lobe which appear slightly increased since comparison exam. There are streaky opacities in the left lung base which are largely similar. IMPRESSION: 1. Streaky opacities in the right midlung, right lower lobe, left lung base which are perhaps mildly increased on the right. This may relate to atelectasis and/or infiltrate. Dictated by: Dictated on workstation # [id number]
--- NOTE | 2019-11-10 08:43 | Progress Note - Cardiology ---
Cardiology SOAP Progress Note Subjective: Sitting up in bed. States he feels much better this morning. He reports he woke up around 1 a.m. with a sudden onset of SOB. His spouse is at the bedside, she reports he had the nurse call his family to come in because he was scared he was going to . He reports he had a frequent cough as well. He denies any c/o palpitations or chest pain. Objective: I&O/Vital Signs 11/10/19 11/10/19 11/10/19 11/10/19 05:38 05:38 05:38 05:40 Temp 37.4 Pulse 111 112 Resp 28 B/P (MAP) 152/75 (100) Pulse Ox 91 91 O2 Delivery Nasal Cannula High Flow N/C O2 Flow Rate 5.00 6.00 11/10/19 11/10/19 11/10/19 11/10/19 05:45 06:00 06:15 06:30 Pulse 109 110 109 110 Resp 22 27 16 18 B/P (MAP) 124/65 (84) 137/69 (91) 137/77 (97) 132/71 (91) Pulse Ox 92 92 91 92 O2 Delivery Nasal Cannula Nasal Cannula Nasal Cannula Nasal Cannula O2 Flow Rate 5.00 5.00 5.00 5.00 11/10/19 11/10/19 11/10/19 11/10/19 07:00 07:00 07:12 08:00 Pulse 109 109 112 Resp 23 25 B/P (MAP) 135/67 (89) 138/87 (104) Pulse Ox 92 94 90 O2 Delivery Nasal Cannula Nasal Cannula Nasal Cannula O2 Flow Rate 5.00 6.00 5.00 11/10/19 11/10/19 11/10/19 11/10/19 09:00 09:53 10:00 10:45 Pulse 102 96 Resp 21 22 B/P (MAP) 125/62 (83) 131/69 (89) Pulse Ox 91 93 92 O2 Delivery Nasal Cannula Nasal Cannula Nasal Cannula High Flow N/C O2 Flow Rate 5.00 10.00 10.00 10.00 11/10/19 11/10/19 11/10/19 11/10/19 11:00 12:00 12:00 13:00 Temp 37.6 Pulse 92 92 92 Resp 23 19 19 B/P (MAP) 126/60 (82) 136/66 (89) 116/65 (82) Pulse Ox 93 92 92 O2 Delivery Nasal Cannula Nasal Cannula Nasal Cannula O2 Flow Rate 10.00 10.00 10.00 11/10/19 11/10/19 13:00 15:16 Pulse 90 Pulse Ox 92 O2 Delivery High Flow N/C O2 Flow Rate 10.00 Weight (Pounds): 187 Weight (Ounces): 0.0 Weight (Calculated Kilograms): 84.983316 Constitutional: AAO x 3, well-developed, well-nourished Respiratory: No accessory muscle use, No respiratory distress; chest expansion is symmetric, chest is bilaterally symmetric, rhonchi (scattered) Cardiovascular: regular rate-rhythm; No JVD; S1 and S2, systolic murmur Gastrointestional: No tender; audible bowel sounds Extremities: no lower extremity edema bilateral Neurologic/Psychiatric: grossly intact (moves all extremities) Skin: No rash on exposed areas, No ulcerations on exposed areas; other (fragile skin integrity) Results/Procedures: Labs Laboratory Tests 11/10/19 06:55: Sodium Level 132L, Potassium Level 4.8, Chloride Level 94L, Carbon Dioxide Level 27, Anion Gap 11, Blood Urea Nitrogen 61H, Creatinine 1.03, Estimat Glomerular Filtration Rate > 60, BUN/Creatinine Ratio 59, Glucose Level 136H, Calcium Level 8.9, Corrected Calcium 9.2, Phosphorus Level 2.1L, Magnesium Level 2.2, Total Bilirubin 0.4, Aspartate Amino Transf (AST/SGOT) 88H, Alanine Aminotransferase (ALT/SGPT) 125H, Alkaline Phosphatase 132, Total Protein 8.7H, Albumin 3.6 11/10/19 06:56: Procalcitonin 0.16H 11/10/19 07:30: White Blood Count 11.1H, Red Blood Count 4.36, Hemoglobin 13.8, Hematocrit 41, Mean Corpuscular Volume 93, Mean Corpuscular Hemoglobin 32, Mean Corpuscular Hemoglobin Concent 34, Red Cell Distribution Width 13.6, Platelet Count 163, Mean Platelet Volume 11.3H, Neutrophils (%) (Auto) 81H, Lymphocytes (%) (Auto) 7L, Monocytes (%) (Auto) 12, Eosinophils (%) (Auto) 0, Basophils (%) (Auto) 0, Neutrophils # (Auto) 8.9H, Lymphocytes # (Auto) 0.8L, Monocytes # (Auto) 1.3H, Eosinophils # (Auto) 0.0, Basophils # (Auto) 0.0, Lactic Acid Level 0.85, B-Type Natriuretic Peptide 257.9H 11/10/19 08:38: Blood Gas Puncture Site RT RADIAL, Blood Gas Patient Temperature 37.0, Arterial Blood pH 7.46H, Arterial Blood Partial Pressure CO2 41, Arterial Blood Partial Pressure O2 62L, Arterial Blood HCO3 29H, Arterial Blood Total CO2 30.5, Arterial Blood Oxygen Saturation 94, Arterial Blood Base Excess 5.5H, Amrit Test YES-POS, Blood Gas Ventilator Setting NO, Blood Gas Inspired Oxygen 5L NASAL CANULA 11/10/19 12:15: Troponin I 0.040H Microbiology 11/10/19 Influenza Types A,B Antigen ([place]) - Final, Complete Procedures NAME: LLUVIA GOLDBERG [facility] REC#: [id number] PT STATUS: ADM IN : 1940 PHYSICIAN: HIRAL RENTERIA DO ADMIT DATE: 11/10/19/ICU Draft Date of Exam:11/10/19 CHEST 1 VIEW, AP/PA ONLY EXAMINATION: Chest radiograph, portable AP view. DATE: 11/10/2019 7:14 AM hours. INDICATION: 79-year-old male, shortness of breath. COMPARISON: November 09, 2019. FINDINGS: There are multiple surgical clips projecting over the medial aspect of the left chest. There are median sternotomy wires. There is an assist device. Heart size and mediastinal contours are unchanged. There is no identified pneumothorax. There is no large pleural effusion. There are fairly linear opacities in the right midlung and right lower lobe which appear slightly increased since comparison exam. There are streaky opacities in the left lung base which are largely similar. IMPRESSION: 1. Streaky opacities in the right midlung, right lower lobe, left lung base which are perhaps mildly increased on the right. This may relate to atelectasis and/or infiltrate. Dictated on workstation # [id number] Dict: 11/10/19 0715 Trans: 11/10/19 0807 [facility] [id number] Interpreted by: CROINA SUMNER MD Electronically signed by: A/P: Assessment: Acute resp distress Ac renal insuff (RANDOLPH 2-3) due to intravasc vol depletion due to diuretic therapy - improved Gen weakness and malaise, likely related to his multiple comorbidities (see below) Acute on chronic systolic CHF URI - management by Medical services Coronary artery disease with a history of coronary artery bypass surgery several years ago. Last cardiac catheterization was in December 2009. It showed severe [place] coronary artery disease, including mid-vessel occlusion of the right coronary and the left circumflex and severe stenosis in the mid left anterior descending artery. There was patent saphenous vein graft to distal right coronary, patent saphenous vein graft to obtuse marginal, patent left internal mammary artery graft to mid left anterior descending artery. He underwent successful percutaneous intervention and stenting to the proximal and mid right coronary artery and a large right ventricular branch with drug-eluting stents (Promus 2.5 x 12 and Promus 2.5 x 23 proximal to distal, slightly overlapping). Since his coronary stenting of December 2009, he has not had any recurrence of angina pectoris. Last myocardial perfusion imaging of December 2018 showed inferior and lateral wall myocardial infarctions without significant ischemia. Marked cardiomegaly. Inferior and lateral wall akinesis. Global hypokinesis. LVEF 8% Ischemic cardiomyopathy with varied LVEF of 8-30% by various measurements over the course of the last several years. Echo 11/03/19 marked enlargement of LV, mod enlargement of LA, LVEF 20-25%, mod MR & TR RVSP approx 43 mmHg. Defibrillator implantation for prophylaxis against sudden cardiac . ICD discharge occurred on 04/12/14 at 2:24 am to treat VF. None since. Device is functioning normally. It reached VI on Apr 14, 2015 and was replaced on 05/10/15 and site does not show evidence of hematoma or inflammation. It is functioning normally per interrogation of 08/12/19 Intolerance to Amiodarone d/t dizziness/weakness when taking this medication per patient and spouse. He refuses therapy with antiarrhythmics, including a miodarone Dyslipidemia. 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 EEG per September 21, [address] Tyson was abnormal, but without clear epileptiform activity (done during a hospitalization of Sep 2014 at [facility] and requested by Dr Barrientos). Carotid arterial disease, approx 50% R ICA stenosis, less than 40% L ICA stenosis per u/s of September 2019 Gastroesophageal reflux. History of mildly elevated alkaline phosphatase followed by his family physcian. H/o intermittent AST/ALT elevation, possibly due to statin therapy. Reactive airways disease. Nocturnal hypoxemia, but no MAGUI on sleep studies of a few years ago Back pain, managed by Dr Knowles. Recent CT lumbar spine w/o contrast ordered by Dr Knowles (01/02/17): neural froaminal stenosis of L5-S1, bilat renal lesions that could not be adequately characterized and for which he has had u/s at the same office on 01/17/17, abd ao atherosclerosis Segmental pressures of December 2016: mod disease involving the distal arterial circulation of the left leg. No c/o claudication of the left leg. Aorta u/s of December 2016: No evidence of AAA Poor balance of undetermined etiology, chronic, managed by CARIE Cowan Nov 10, 2019 08:43
[2019-11-10 08:47] LABS: ABG BASE EXCESS 5.5 MMOL/L (-2.5-2.5); ABG OXYGEN SATURATION 94 % (94-100); ABG PCO2 41 MMHG (35-45); ABG PH 7.46 (7.37-7.43); ABG PO2 62 MMHG (79-93); ABG TCO2 30.5 MMOL/L (21.0-31.0)
[2019-11-10 08:49] LABS: ALLENS TEST YES-POS; INSPIRED O2 5L NASAL CANULA; VENTILATOR NO
[2019-11-10] MEDS ORDERED: FUROSEMIDE 40 MG/4 ML INJ (LASIX) IVP NR (09:15)
[2019-11-10] MEDS: NS IV 1000 ML 1,000 ML IV SCH (09:34)
[2019-11-10] MEDS: methylPREDNISolone 40 MG/ML (Solu-MEDROL) VIAL IV SCH ×3 (09:34→20:21)
[2019-11-10] MEDS: SENNA W/DOCUSATE (SENOKOT S) TABLET PO SCH ×2 (09:38→20:21)
[2019-11-10] MEDS ORDERED: RT-ALBUTEROL SULF 2.5 MG/3 ML PRE-MIX VIAL INH SCH (10:00)
--- NOTE | 2019-11-10 10:42 | NUR ---
[place] contacted this director of acquisition marketing with a message from the pt's requesting a director of acquisition marketing visit and notifying of transfer to ICU 11. Offered prayer and comforting presence. The pt's and grandson were present. Pt's stated she felt our visit yesterday was the best encounter he has had in a long time in that he was actively engaged and demonstrating a positive outlook.
[2019-11-10] MEDS: RT-ALBUTEROL/IPRATROPIUM 3 ML (DUONEB) VIAL INH SCH ×4 (10:44→22:33)
[2019-11-10] MEDS: Symbicort 160-4.5 Mcg Inhaler IH SCH ×2 (10:45→19:15)
--- NOTE | 2019-11-10 11:05 | NUR ---
PT'S FLU RESULTS CAME BACK POSITIVE FOR FLU B. DR RENTERIA AND DR GRAJEDA NOTIFIED.
--- NOTE | 2019-11-10 11:41 | NUR ---
PALLIATIVE CARE RN in to see patient and talk with family. I spoke to the purpose of my visit and the reason the referral was placed. They gave this RN a rundown of the lat 30 years that he has been dealing with this heart disease. They reported that during this time he has not had an ejection fraction above 25% and has been on hospice twice. At this time they are hoping that he will get back to his previous level of health.
[2019-11-10] MEDS: OSELTAMIVIR 75 MG (TAMIFLU) CAPSULE PO SCH ×2 (11:48→20:21)
--- NOTE | 2019-11-10 12:16 | History & Physical-Hospitalist ---
History of Present Illness HPI/Chief Complaint Pt is an 79yoCM with a PMH of COPD, CAD, CHF, HTN, HLD who was admitted to the ICU from inpatient rehab due to acute respiratory distress. He is normally not on oxygen but following his recent discharge from the hospital to IRU he was on 4lpm. He awoke this morning at 0100AM with shortness of breath. Despite a breathing treatment he did not improve and told his family he thought he was going to . He Source: patient, family Date Seen 11/10/19 Time Seen by a Provider: 09:00 Attending Physician Autumn Barrientos DO PCP Brendon Trejo MD Referring Physician Date of Admission Nov 10, 2019 at 5:35 am Home Medications & Allergies Home Medications Reviewed patient Home Medication Reconciliation performed by pharmacy medication reconciliations product technician and/or nursing. Patients Allergies have been reviewed. Allergies Allergies Coded Allergies amiodarone (Verified Allergy, Severe, 03/13/19) lorazepam (Verified Allergy, Unknown, 03/13/19) scopolamine (Verified Allergy, Unknown, 03/13/19) Past Aexqmwy-Orrbni-Zstuym Hx Past Med/Social Hx: Reviewed Nursing Past Med/Soc Hx Patient Social History Marrital Status: Employed/Student: retired Alcohol Use: Denies Use Recreational Drug Use: No Former Smoker, Quit: Jan 31, 1990 Type Used: Cigarettes 2nd Hand Smoke Exposure: No Physical Abuse Screen: No Sexual Abuse: No Recent Hopitalizations: Yes Immunizations Up To Date Tetanus Booster (TDap): Less than 5yrs Pediatric: Yes Date of Pneumonia Vaccine: January 20, 2015 Date of Influenza Vaccine: May 10, 2019 Seasonal Allergies Seasonal Allergies: Yes Past Medical History Surgeries: CABG, Eye Surgery Respiratory: Chronic Bronchitis, COPD, Emphysema, Pneumonia Currently Using CPAP: No Currently Using BIPAP: No Cardiac: Cardiomyopathy, Coronary Artery Disease, High Cholesterol, Hypertension, Peripheral Vascular Neurological: Neuropathy, Seizure Disorder, Stroke Reproductive: No Sexually Transmitted Disease: No Genitourinary: Bladder Infection, Renal Failure Gastrointestinal: Abdominal Hernia Musculoskeletal: Degenerate Disk Disease, Arthritis, Chronic Back Pain HEENT: Cataract Hearing Impairment: Hard of Hearing Cancer: Skin Did You Recieve Any Treatments: No Psychosocial: Depression History of Blood Disorders: No Adverse Reaction to Blood Yanes: No Family History Reviewed Nursing Family Hx Arthritis 19 MOTHER, Cardiovascular disease G8 BROTHER, G8 BROTHER, , Age:67 G8 BROTHER G8 SISTER Cataracts G8 BROTHER, , Age:67 G8 BROTHER Completed stroke 19 MOTHER, Deafness or hearing loss G8 BROTHER G8 BROTHER Diabetes mellitus G8 SISTER Headache disorder 19 FATHER, 19 MOTHER, G8 BROTHER, G8 BROTHER, , Age:67 G8 BROTHER G8 BROTHER G8 SISTER Hypercholesterolemia G8 BROTHER, , Age:67 G8 BROTHER G8 BROTHER G8 SISTER Hypertension 19 MOTHER, G8 BROTHER G8 SISTER Myocardial infarction G8 BROTHER, , Age:67 G8 BROTHER G8 SISTER Respiratory disorder G8 BROTHER, Thyroid disease G8 SISTER No Family History of: AIDS Abdominal aortic aneurysm Shreyas's disease Alcoholism Alzheimer's disease Aphasia Asthma Cancer of mouth Colon cancer Congenital disease Congenital heart disease Cystic fibrosis Dementia Drug abuse Dysphasia Fibrocystic disease of breast Gastroenteritis Glaucoma Infertility Kidney disease Neoplasm Not obtainable due to adoption Osteoporosis Parkinson's disease Prostate cancer Psychosocial problem Seizure disorder Severe allergy Tuberculosis Visual disorder No Pertinent Family Hx Review of Systems ROS-Unable to Obtain: limited due to dementia Constitutional: No chills, No fever EENTM: no symptoms reported Respiratory: cough, short of breath Gastrointestinal: no symptoms reported Genitourinary: no symptoms reported Musculoskeletal: no symptoms reported Skin: no symptoms reported Psychiatric/Neurological: No Symptoms Reported Physical Exam Physical Exam Vital Signs Vital Signs - First Documented Capillary Refill : Height, Weight, BMI Height: 6'0" Weight: 187lbs. 0.0oz. 84.129591sx; 25.82 BMI Method:Stated General Appearance: No Apparent Distress, Chronically ill HEENT: Moist Mucous Membranes; No Scleral Icterus (L), No Scleral Icterus (R) Respiratory: Lungs Clear, No Accessory Muscle Use, Other (on 10lpm HFNC) Cardiovascular: No Murmur, Tachycardia Gastrointestinal: Normal Bowel Sounds, Non Tender, Soft Extremity: No Calf Tenderness, No Pedal Edema Neurologic/Psychiatric: Alert, Other (oriented to person and place) Skin: Normal Color, Warm/Dry Results Results/Procedures Labs Laboratory Tests 11/10/19 06:55 11/10/19 07:30 Patient resulted labs reviewed. Imaging: Reviewed Imaging Report Assessment/Plan Admission Diagnosis Acute Hypoxic Respiratory Failure Admission Status: Inpatient Order (span 2 midnights) Reason for Inpatient Admission: on high flow oxygen, high risk for decompensation Assessment and Plan Acute on Chronic Hypoxic Respiratory Failure Flu B positive Started on Tamiflu Pulm consulted, michael woodward Discussed goals of care and he remains a DNR Palliative Care consulted CHF CAD s/p CABG Hypertension Hyperlipidemia Follows with Dr Bhandari, consulted Lasix given Continue home meds COPD Pulm consulted Continue home inhalers Continue Solu-Medrol Seizure disorder Takes Dilantin from home Continue home meds Diagnosis/Problems Diagnosis/Problems (1) Acute on chronic HFrEF (heart failure with reduced ejection fraction) Status: Acute (2) CHF (congestive heart failure) Qualifiers: Heart failure type: systolic Heart failure chronicity: acute on chronic Qualified Codes: I50.23 - Acute on chronic systolic (congestive) heart failure (3) Respiratory failure Status: Acute Qualifiers: Chronicity: acute Respiratory failure complication: hypoxia Qualified Codes: J96.01 - Acute respiratory failure with hypoxia Clinical Quality Measures DVT/VTE Risk/Contraindication: Risk Factor Score Per Nursin RFS Level Per Nursing on Admit: 4+=Very High TOMMIE GRAJEDA MD Nov 10, 2019 12:16
--- NOTE | 2019-11-10 15:25 | Consultation-Cardiology ---
HPI-Cardiology Cardiology Consultation: Date of Consultation 11/10/19 Time Seen by a Provider: 12:30 Date of Admission Attending Physician Autumn Barrientos DO Admitting Physician Brendon Trejo MD Consulting Physician DANNIELLE BRAUN MD, MA, FACP, FACC, FSCAI, CCDS HPI: Chief Complaint: Reason for Cardiology consultation: Shortness of breath HPI: 79 yo man transferred from in rehab because of increasing shortness of breath and malaise and weakness No cp or palp or syncope No n/v/c Review of Systems-Cardiology Review of Systems Constitutional: malaise, tiredness Eyes: No vision change Ears/Nose/Throat: No ear discharge, No nasal drainage, No recent hearing loss Respiratory: As described under HPI Cardiovascular: As described under HPI Gastrointestinal: No diarrhea, No nausea, No vomiting Genitourinary: No hematuria, No urine frequency changes Skin: No rash, No ulcerations Psychiatric/Neurological: No focal weakness, No syncope Hematologic: No bleeding abnormalities CEE-[id number] Hx Patient Social History Marrital Status: Employed/Student: retired Alcohol Use: Denies Use Recreational Drug Use: No Former smoker/When Quit: May 10, 1989 Type Used: Cigarettes 2nd Hand Smoke Exposure: No Physical Abuse Screen: No Sexual Abuse: No Immunizations Up To Date Tetanus Booster (TDap): Less than 5yrs Date of Pneumonia Vaccine: January 20, 2015 Date of Influenza Vaccine: May 10, 2019 Past Medical History PMH As described under Assessment. Family Medical History Family Medical History: He reports his mother had a CVA and HTN. He has 3 brothers and a sister who have CAD. He has one brother with HTN and a sister with HTN. Family History: Arthritis 19 MOTHER, Cardiovascular disease G8 BROTHER, G8 BROTHER, , Age:67 G8 BROTHER G8 SISTER Cataracts G8 BROTHER, , Age:67 G8 BROTHER Completed stroke 19 MOTHER, Deafness or hearing loss G8 BROTHER G8 BROTHER Diabetes mellitus G8 SISTER Headache disorder 19 FATHER, 19 MOTHER, G8 BROTHER, G8 BROTHER, , Age:67 G8 BROTHER G8 BROTHER G8 SISTER Hypercholesterolemia G8 BROTHER, , Age:67 G8 BROTHER G8 BROTHER G8 SISTER Hypertension 19 MOTHER, G8 BROTHER G8 SISTER Myocardial infarction G8 BROTHER, , Age:67 G8 BROTHER G8 SISTER Respiratory disorder G8 BROTHER, Thyroid disease G8 SISTER No Family History of: AIDS Abdominal aortic aneurysm Shreyas's disease Alcoholism Alzheimer's disease Aphasia Asthma Cancer of mouth Colon cancer Congenital disease Congenital heart disease Cystic fibrosis Dementia Drug abuse Dysphasia Fibrocystic disease of breast Gastroenteritis Glaucoma Infertility Kidney disease Neoplasm Not obtainable due to adoption Osteoporosis Parkinson's disease Prostate cancer Psychosocial problem Seizure disorder Severe allergy Tuberculosis Visual disorder Allergies and Home Medications Allergies Coded Allergies: amiodarone (Verified Allergy, Severe, 03/13/19) lorazepam (Verified Allergy, Unknown, 03/13/19) scopolamine (Verified Allergy, Unknown, 03/13/19) Home Medications Albuterol Sulfate 2.5 Mg/0.5 Ml Vial.neb, 2.5 MG INH Q4 -6H PRN for SHORTNESS OF BREATH, (Reported) WHEN PT IS IN A COPB FLARE HE TAKING A TREAMENT EVERY 4-6 HOURS *3-4 TIMES DAILY) Aspirin 81 Mg Tablet.dr, 81 MG PO DAILY, (Reported) Bimatoprost 2.5 Ml Drops, 1 DROP OD HS, (Reported) Budesonide/Formoterol Fumarate 10.2 Gm Hfa.aer.ad, 2 PUFF IH BID, (Reported) Chlorhexidine Gluconate 473 Ml Mouthwash, 5-10 ML MT BID, (Reported) RINSE AND SPIT TWICE DAILY Cholecalciferol (Vitamin D3) 50 Mcg Capsule, 50 MCG PO DAILY, (Reported) Clobetasol Propionate 15 Gm Cream..g., 1 APPLIC TOP BID, (Reported) MIXES WITH MOSTURIZER (EURICIN OR VANICREAM) AND APPLIES TO THE LEFT ARM AND SPOT ON CHEST TWICE DAILY Cyanocobalamin (Vitamin B-12) 2,500 Mcg Tablet, 2,500 MCG PO DAILY, (Reported) Digoxin 250 Mcg Tablet, 250 MCG PO DAILY, (Reported) Furosemide 40 Mg Tablet, 40 MG PO DAILY, (Reported) Guaifenesin 600 Mg Tab.er.12h, 600 MG PO BID PRN for CONGESTION, (Reported) Levothyroxine Sodium 75 Mcg Tablet, 75 MCG PO DAILY, (Reported) Lisinopril 5 Mg Tablet, 5 MG PO DAILY, (Reported) Metoprolol Succinate 50 Mg Tab.er.24h, 50 MG PO DAILY, (Reported) Metronidazole 45 Gm Gel..gram., 1 APPLIC TD DAILY PRN for BREAKOUT, (Reported) APPLIES TO THE FOREHEAD Montelukast Sodium 10 Mg Tablet, 10 MG PO HS, (Reported) Phenobarbital 64.8 Mg Tablet, 129.6 MG PO HS, (Reported) TAKES 2 (64.8MG) TABS TO EQUAL 129.6MG Phenytoin Sodium Extended 100 Mg Capsule, 300 MG PO 1800, (Reported) TAKES 2 (100MG) CAPS IN THE MORNING AND 3 (100MG) CAPS AT 1800 Phenytoin Sodium Extended 100 Mg Capsule, 200 MG PO DAILY, (Reported) TAKES 2 (100MG) CAPS IN THE MORNING AND 3 (100MG) CAPS AT 1800 Polyethylene Glycol 3350 17 Gm Powd.pack, 17 GM PO DAILY, (Reported) Pyridoxine HCl 25 Mg Tablet, 25 MG PO DAILY, (Reported) Simvastatin 10 Mg Tablet, 10 MG PO HS, (Reported) Patient Home Medication List Home Medication List Reviewed: Yes Physical Exam-Cardiology Physical Exam Vital Signs/I&O 11/10/19 11/10/19 11/10/19 11/10/19 05:38 05:38 05:38 05:40 Temp 37.4 Pulse 111 112 Resp 28 B/P (MAP) 152/75 (100) Pulse Ox 91 91 O2 Delivery Nasal Cannula High Flow N/C O2 Flow Rate 5.00 6.00 11/10/19 11/10/19 11/10/19 11/10/19 05:45 06:00 06:15 06:30 Pulse 109 110 109 110 Resp 22 27 16 18 B/P (MAP) 124/65 (84) 137/69 (91) 137/77 (97) 132/71 (91) Pulse Ox 92 92 91 92 O2 Delivery Nasal Cannula Nasal Cannula Nasal Cannula Nasal Cannula O2 Flow Rate 5.00 5.00 5.00 5.00 11/10/19 11/10/19 11/10/19 11/10/19 07:00 07:00 07:12 08:00 Pulse 109 109 112 Resp 23 25 B/P (MAP) 135/67 (89) 138/87 (104) Pulse Ox 92 94 90 O2 Delivery Nasal Cannula Nasal Cannula Nasal Cannula O2 Flow Rate 5.00 6.00 5.00 11/10/19 11/10/19 11/10/19 11/10/19 09:00 09:53 10:00 10:45 Pulse 102 96 Resp 21 22 B/P (MAP) 125/62 (83) 131/69 (89) Pulse Ox 91 93 92 O2 Delivery Nasal Cannula Nasal Cannula Nasal Cannula High Flow N/C O2 Flow Rate 5.00 10.00 10.00 10.00 11/10/19 11/10/19 11/10/19 11/10/19 11:00 12:00 12:00 13:00 Temp 37.6 Pulse 92 92 92 Resp 23 19 19 B/P (MAP) 126/60 (82) 136/66 (89) 116/65 (82) Pulse Ox 93 92 92 O2 Delivery Nasal Cannula Nasal Cannula Nasal Cannula O2 Flow Rate 10.00 10.00 10.00 Capillary Refill : Constitutional: AAO x 3 (weak and tired and slow to respond and somnolent), well-developed, well-nourished Respiratory: No accessory muscle use, No respiratory distress; chest expansion is symmetric, chest is bilaterally symmetric, rhonchi (scattered) Cardiovascular: regular rate-rhythm; No JVD; S1 and S2, systolic murmur Gastrointestinal: No tender; audible bowel sounds Extremities: no lower extremity edema bilateral Neurologic/Psychiatric: other (moves all limbs equally) Skin: No rash on exposed areas, No ulcerations on exposed areas; other (fragile skin integrity) Data Review Labs Laboratory Tests 11/10/19 06:55: Sodium Level 132L, Potassium Level 4.8, Chloride Level 94L, Carbon Dioxide Level 27, Anion Gap 11, Blood Urea Nitrogen 61H, Creatinine 1.03, Estimat Glomerular Filtration Rate > 60, BUN/Creatinine Ratio 59, Glucose Level 136H, Calcium Level 8.9, Corrected Calcium 9.2, Phosphorus Level 2.1L, Magnesium Level 2.2, Total Bilirubin 0.4, Aspartate Amino Transf (AST/SGOT) 88H, Alanine Aminotransferase (ALT/SGPT) 125H, Alkaline Phosphatase 132, Total Protein 8.7H, Albumin 3.6 11/10/19 06:56: Procalcitonin 0.16H 11/10/19 07:30: White Blood Count 11.1H, Red Blood Count 4.36, Hemoglobin 13.8, Hematocrit 41, Mean Corpuscular Volume 93, Mean Corpuscular Hemoglobin 32, Mean Corpuscular Hemoglobin Concent 34, Red Cell Distribution Width 13.6, Platelet Count 163, Mean Platelet Volume 11.3H, Neutrophils (%) (Auto) 81H, Lymphocytes (%) (Auto) 7L, Monocytes (%) (Auto) 12, Eosinophils (%) (Auto) 0, Basophils (%) (Auto) 0, Neutrophils # (Auto) 8.9H, Lymphocytes # (Auto) 0.8L, Monocytes # (Auto) 1.3H, Eosinophils # (Auto) 0.0, Basophils # (Auto) 0.0, Lactic Acid Level 0.85, B-Type Natriuretic Peptide 257.9H 11/10/19 08:38: Blood Gas Puncture Site RT RADIAL, Blood Gas Patient Temperature 37.0, Arterial Blood pH 7.46H, Arterial Blood Partial Pressure CO2 41, Arterial Blood Partial Pressure O2 62L, Arterial Blood HCO3 29H, Arterial Blood Total CO2 30.5, Arterial Blood Oxygen Saturation 94, Arterial Blood Base Excess 5.5H, Amrit Test YES-POS, Blood Gas Ventilator Setting NO, Blood Gas Inspired Oxygen 5L NASAL C ANULA 11/10/19 12:15: Troponin I 0.040H Microbiology 11/10/19 Influenza Types A,B Antigen ([facility]) - Final, Complete A/P-Cardiology Assessment/Admission Diagnosis Acute resp distress (multifactoria) Flu B Ac renal insuff (RANDOLPH 2-3) due to intravasc vol depletion due to diuretic therapy - improved Gen weakness and malaise, likely related to his multiple comorbidities (see below) Acute on chronic systolic CHF Coronary artery disease with a history of coronary artery bypass surgery several years ago. Last cardiac catheterization was in December 2009. It showed severe [place] coronary artery disease, including mid-vessel occlusion of the right coronary and the left circumflex and severe stenosis in the mid left anterior descending artery. There was patent saphenous vein graft to distal right coronary, patent saphenous vein graft to obtuse marginal, patent left internal mammary artery graft to mid left anterior descending artery. He underwent successful percutaneous intervention and stenting to the proximal and mid right coronary artery and a large right ventricular branch with drug-eluting stents (Promus 2.5 x 12 and Promus 2.5 x 23 proximal to distal, slightly overlapping). Since his coronary stenting of December 2009, he has not had any recurrence of angina pectoris. Last myocardial perfusion imaging of December 2018 showed inferior and lateral wall myocardial infarctions without significant ischemia. Marked cardiomegaly. Inferior and lateral wall akinesis. Global hypokinesis. LVEF 8% Ischemic cardiomyopathy with varied LVEF of 8-30% by various measurements over the course of the last several years. Echo 11/03/19 marked enlargement of LV, mod enlargement of LA, LVEF 20-25%, mod MR & TR RVSP approx 43 mmHg. Defibrillator implantation for prophylaxis against sudden cardiac . ICD discharge occurred on 04/12/14 at 2:24 am to treat VF. None since. Device is functioning normally. It reached VI on Apr 14, 2015 and was replaced on 05/10/15 and site does not show evidence of hematoma or inflammation. It is functioning normally per interrogation of 08/12/19 Intolerance to Amiodarone d/t dizziness/weakness when taking this medication per patient and spouse. He refuses therapy with antiarrhythmics, including amiodarone Dyslipidemia. 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 EEG per September 21, [address] Tyson was abnormal, but without clear epileptiform activity (done during a hospitalization of Sep 2014 at [facility] and requested by Dr Barrientos). Carotid arterial disease, approx 50% R ICA stenosis, less than 40% L ICA stenosis per u/s of September 2019 Gastroesophageal reflux. History of mildly elevated alkaline phosphatase followed by his family physcian. H/o intermittent AST/ALT elevation, possibly due to statin therapy. Reactive airways disease. Nocturnal hypoxemia, but no MAGUI on sleep studies of a few years ago Back pain, managed by Dr Knowles. Recent CT lumbar spine w/o contrast ordered by Dr Knowles (01/02/17): neural froaminal stenosis of L5-S1, bilat renal lesions that could not be adequately characterized and for which he has had u/s at the same office on 01/17/17, abd ao atherosclerosis Segmental pressures of December 2016: mod disease involving the distal arterial circulation of the left leg. No c/o claudication of the left leg. Aorta u/s of December 2016: No evidence of AAA Poor balance of undetermined etiology, chronic, managed by pcp Discussion and Recomendations * Slow hydration for intravasc vol depletion and pre-renal azotemia * Diuretics as needed * Continue therapy for ischemic cm * Monitor labs Clinical Quality Measures DVT/VTE Risk/Contraindication: Risk Factor Score Per Nursin RFS Level Per Nursing on Admit: 4+=Very High DANNIELLE BRAUN MD FACP FACC CCDS Nov 10, 2019 15:25
[2019-11-10] MEDS: ENOXAPARIN 40 MG/0.4 ML (LOVENOX) SYR SC SCH (20:21)
[2019-11-11] VITALS (11 sets, daily range): BP systolic 128–165; BP diastolic 54–74
[2019-11-11] MEDS: methylPREDNISolone 40 MG/ML (Solu-MEDROL) VIAL IV SCH ×4 (02:06→20:53)
[2019-11-11 02:49] LABS: BASOPHILS % (AUTO) 0 % (0-10); EOSINOPHILS % (AUTO) 0 % (0-10); HEMATOCRIT 38 % (40-54); HEMOGLOBIN 12.7 G/DL (13.3-17.7); LYMPHOCYTES # (AUTO) 0.7 X 10^3 (1.0-4.0); LYMPHOCYTES % (AUTO) 11 % (12-44); MEAN CORPUSCULAR HEMOGLOBIN 31 PG (25-34); MEAN CORPUSCULAR HGB CONC 33 G/DL (32-36); MEAN CORPUSCULAR VOLUME 94 FL (80-99); MEAN PLATELET VOLUME 11.5 FL (7.4-10.4); MONOCYTES # (AUTO) 0.6 X 10^3 (0.0-1.0); MONOCYTES % (AUTO) 9 % (0-12); NEUTROPHILS # (AUTO) 4.9 X 10^3 (1.8-7.8); NEUTROPHILS % (AUTO) 79 % (42-75); PLATELET COUNT 152 10^3/uL (130-400); RED CELL DISTRIBUTION WIDTH 13.4 % (10.0-14.5); WHITE BLOOD COUNT 6.2 10^3/uL (4.3-11.0)
[2019-11-11] MEDS: NS IV 1000 ML 1,000 ML IV SCH (02:54)
[2019-11-11 03:11] LABS: ALANINE AMINOTRANSFERASE 112 U/L (0-55); ALBUMIN 3.3 GM/DL (3.2-4.5); ALKALINE PHOSPHATASE 113 U/L (40-136); BILIRUBIN,TOTAL 0.5 MG/DL (0.1-1.0); BUN/CREATININE RATIO 54; CALCIUM 8.8 MG/DL (8.5-10.1); CARBON DIOXIDE 25 MMOL/L (21-32); CHLORIDE 95 MMOL/L (98-107); CREATININE SERUM 1.04 MG/DL (0.60-1.30); GFR ESTIMATED > 60; GLUCOSE 112 MG/DL (70-105); MAGNESIUM 2.5 MG/DL (1.6-2.4); POTASSIUM 4.8 MMOL/L (3.6-5.0); SODIUM 133 MMOL/L (135-145); TOTAL PROTEIN 7.9 GM/DL (6.4-8.2)
[2019-11-11] MEDS: KCL 20 MEQ TAB (K-DUR) PO SCH (03:43)
[2019-11-11] MEDS: MAGNESIUM 1 GM/100 ML IVPB 100 ML IV SCH (03:43)
[2019-11-11] MEDS: POTASSIUM CL 10MEQ/50ML IVPB 50 ML IV SCH (03:43)
--- NOTE | 2019-11-11 04:39 | Pulmonary Progress Note ---
Subjective Time Seen by a Provider: 04:39 Sepsis Event Evaluation Height, Weight, BMI Height: 6'0" Weight: 187lbs. 0.0oz. 84.197334ia; 25.82 BMI Method:Stated Focused Exam Lactate Level 11/10/19 07:30: Lactic Acid Level 0.85 Exam Exam Vital Signs Date Time Temp Pulse Resp B/P (MAP) Pulse Ox O2 Delivery O2 Flow Rate FiO2 11/11/19 04:00 81 165/63 (97) 92 High Flow N/C 10.00 11/11/19 03:42 36.8 11/11/19 03:00 64 11 136/60 (85) 97 High Flow N/C 10.00 11/11/19 02:40 97 High Flow N/C 10.00 11/11/19 02:00 65 19 139/55 (83) 95 High Flow N/C 10.00 11/11/19 01:00 67 11/11/19 01:00 67 20 137/59 (85) 96 High Flow N/C 10.00 11/11/19 00:00 36.8 11/11/19 00:00 92 High Flow N/C 10.00 11/11/19 00:00 67 16 141/60 (87) 93 High Flow N/C 10.00 11/10/19 23:00 72 19 130/61 (84) 94 High Flow N/C 10.00 11/10/19 22:00 73 20 159/80 (106) 96 High Flow N/C 10.00 11/10/19 21:00 74 25 132/65 (87) 94 High Flow N/C 10.00 11/10/19 20:58 High Flow N/C 10.00 11/10/19 20:00 68 21 107/57 (74) 93 High Flow N/C 10.00 11/10/19 20:00 92 High Flow N/C 10.00 11/10/19 19:45 36.8 11/10/19 19:13 94 High Flow N/C 10.00 11/10/19 19:00 72 11/10/19 19:00 72 23 117/59 (78) 93 High Flow N/C 10.00 11/10/19 18:00 81 18 141/68 (92) 91 Nasal Cannula 10.00 11/10/19 17:00 83 33 145/64 (91) 91 Nasal Cannula 10.00 11/10/19 16:00 81 21 106/61 (76) 92 Nasal Cannula 10.00 11/10/19 16:00 36.4 11/10/19 16:00 92 High Flow N/C 10.00 11/10/19 15:16 92 High Flow N/C 10.00 11/10/19 15:00 85 15 122/75 (91) 93 Nasal Cannula 10.00 11/10/19 14:00 86 22 128/61 (83) 93 Nasal Cannula 10.00 11/10/19 13:00 90 11/10/19 13:00 92 19 116/65 (82) 92 Nasal Cannula 10.00 11/10/19 12:00 92 High Flow N/C 10.00 11/10/19 12:00 37.6 11/10/19 12:00 92 19 136/66 (89) 92 Nasal Cannula 10.00 11/10/19 11:00 92 23 126/60 (82) 93 Nasal Cannula 10.00 11/10/19 10:45 92 High Flow N/C 10.00 11/10/19 10:00 96 22 131/69 (89) 93 Nasal Cannula 10.00 11/10/19 09:53 Nasal Cannula 10.00 11/10/19 09:00 102 21 125/62 (83) 91 Nasal Cannula 5.00 11/10/19 08:00 112 25 138/87 (104) 90 Nasal Cannula 5.00 11/10/19 08:00 92 High Flow N/C 10.00 11/10/19 07:12 94 Nasal Cannula 6.00 11/10/19 07:00 109 23 135/67 (89) 92 Nasal Cannula 5.00 11/10/19 07:00 109 11/10/19 06:30 110 18 132/71 (91) 92 Nasal Cannula 5.00 11/10/19 06:15 109 16 137/77 (97) 91 Nasal Cannula 5.00 11/10/19 06:00 110 27 137/69 (91) 92 Nasal Cannula 5.00 11/10/19 05:45 109 22 124/65 (84) 92 Nasal Cannula 5.00 11/10/19 05:40 112 11/10/19 05:38 91 High Flow N/C 6.00 11/10/19 05:38 37.4 11/10/19 05:38 111 28 152/75 (100) 91 Nasal Cannula 5.00 I & O 11/11/19 07:00 Intake Total 800 ml Output Total 1800 ml Balance -1000 ml Height & Weight Height: 6'0" Weight: 187lbs. 0.0oz. 84.264429pc; 25.82 BMI Method:Stated General Appearance: No Apparent Distress, Chronically ill HEENT: Moist Mucous Membranes; No Scleral Icterus (L), No Scleral Icterus (R) Respiratory: Lungs Clear, No Accessory Muscle Use, Other (on 10lpm HFNC) Cardiovascular: No Murmur, Tachycardia Extremity: No Calf Tenderness, No Pedal Edema Neurologic/Psychiatric: Alert, Other (oriented to person and place) Skin: Normal Color, Warm/Dry Results Lab Laboratory Tests 11/10/19 06:55 11/10/19 07:30 11/11/19 02:29 Assessment/Plan Assessment/Plan Acute respiratory distress COPDAE - HX of severe COPD last PFT was 2009 -Change albuterol svn to Duoneb Q4 -Add Advair -Add solumedrol 40 IV Q 6 CHFAE EF per cardiology 8-30% -Pt has ICD -S/p 60mg of Lasix -Check labs and BNP -CXR pending NSTEMI - cardiology following Debility -PT/OT Acute renal failure -Monitor CAD Hx of 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 Carotid arterial disease, approx 50% R ICA stenosis, less than 40% L ICA stenosis per u/s of September 2019 Hx of nocturnal hypoxia -Neg PSG in past for MAGUI HIRAL RENTERIA DO Nov 11, 2019 04:39
[2019-11-11 06:55] LABS: BILIRUBIN,URINE NEGATIVE (NEGATIVE); CLARITY,URINE CLEAR; COLOR,URINE YELLOW; GLUCOSE, URINE (UA) NEGATIVE (NEGATIVE); KETONES,URINE NEGATIVE (NEGATIVE); LEUKOCYTE ESTERASE ,URINE 1+ (NEGATIVE); NITRITE,URINE NEGATIVE (NEGATIVE); PROTEIN,URINE TRACE (NEGATIVE)
[2019-11-11 07:15] LABS: BACTERIA,URINE TRACE /HPF
--- NOTE | 2019-11-11 08:19 | Diagnostic Imaging Report ---
EXAMINATION: Chest 1 view HISTORY: Respiratory distress. COMPARISON: 11/10/2019. FINDINGS: Improving opacities are seen in the right midlung with slight increase in patchy opacities in the right lung base. Left perihilar and basilar opacities are stable. There is stable appearance of the cardiac silhouette with stable configuration of the left pectoral ICD. No large pleural effusion or pneumothorax. No acute osseous abnormalities. IMPRESSION: 1. . Opacities in the right midlung with increase in opacities in the right lung base. Stable left perihilar and left basilar opacities. Dictated by: Dictated on workstation # [id number]
[2019-11-11] MEDS: FUROSEMIDE 40 MG/4 ML INJ (LASIX) IVP SCH (08:30)
[2019-11-11] MEDS: OSELTAMIVIR 75 MG (TAMIFLU) CAPSULE PO SCH ×2 (08:30→20:53)
[2019-11-11] MEDS: SENNA W/DOCUSATE (SENOKOT S) TABLET PO SCH ×2 (08:30→20:54)
[2019-11-11] MEDS: PHENYTOIN 100 MG (DILANTIN) CAP PO SCH ×2 (08:31→18:38)
[2019-11-11] MEDS: RT-ALBUTEROL/IPRATROPIUM 3 ML (DUONEB) VIAL INH SCH ×4 (08:42→20:57)
--- NOTE | 2019-11-11 08:42 | ST Dysphagia Evaluation ---
Speech Evaluation-General Medical Diagnosis Respiratory Failure Onset Date: Nov 10, 2019 Therapy Diagnosis Therapy Diagnosis: Oropharyngeal Dysphagia Referral Referring Physician: Dr. Rob Reason for Referral: Evaluation/Treatment Medical History Pertinent Medical History: CABG, COPD, CVA, HTN Reviewed History: Yes Social History Current Living Status: Spouse Speech PLF/Current-Dysphagia Prior Level of Function Patient was able to eat what he wanted on his heart healthy diet without difficulty. Subjective Patient was pleasant and cooperative with the Bedside Dysphagia Evaluation. was present for the evaluation. Cognitive Status Patient Orientation: Person, Place, Situation Oral Motor Skills Denture Type: Full- Upper & Lower Patient was receiving clear liquids pending the BDE. Oral Expression Ability: No Impairment Face Facial Symmetry: Symmetrical Oral-Facial Assessment Oral-Facial Dentition: Normal Lingual Protrusion: Normal Lingual ROM: Normal Lingual Strength: Normal Pharynx Velopharyngeal Move.: Normal Volitional Dry Swallow: Yes Voluntary Cough: Yes Can Clear Throat Volitionally: Yes Productive Cough: Yes Productive Throat Clear: Yes Dysphagia Evaluation Consistencies Presented: Thin Liquid, Mechanical Soft, Pureed Oral phase is within normal range of function for consistencies presented. Pharyngeal phase is within normal range of function for consistencies presented. Dietary Recommendations: Mechanical Soft Liquid Recommendations: Thin Due to patient being on 10L of O2, patient has difficulty with prolonged mastication. Swallowing Precautions: Alternate Liquids/Solids, Decreased Rate of Oral Intake, Liquids from Straw, Small Bites and Sips, Sitting Upright 90 Degrees, Sitting 90 Degrees 30 Post Intake Dysphagia Evaluation Summary Patient is a pleasant 79 year old male who was admitted to the ICU following a short stay in ARU due to increased respiratory distress. Patient was referred for a BDE per Dr. Rob. BDE was completed with present. Currently the patient is on 10L of O2 due to respiratory failure and CHF. Patient was on clear liquids without difficulty. Patient was presented puree and mechanical soft without difficulty. Patient was not given the regular texture at this time due to respiratory distress and decreased ability for mastication of regular textures. Patient is recommended for Dysphagia II with thin liquids. Patient's diet was written on the white board as well as discussed with his nurseDevon and Dr. Bansal. ST will follow up with patient tomorrow to continue least restrictive diet level assessment. Barriers to Learning Patient's medical status Speech Short Term Goals Short Term Goals Short Term Goals 1) The patient will tolerate least restrictive diet level without s/s of aspiration at 90% or greater. 2) The patient/caregiver will utilize compensatory strategies as trained at 90% or greater. Speech Senior Living Goals [place] Goals Patient will maintain adequate nutrition/hydration via safe effective swallow function. Speech-Plan Patient/Family Goals Patient/Family Goals: Patient plans on returning home with his upon hospital discharge. Treatment Plan Speech Therapy Treatment Plan: Continue Plan of Care Treatment Duration: Nov 20, 2019 Frequency: 3 times per week Estimated Hrs Per Day: .25 hour per day Rehab Potential: Good Barriers to Learning: Patient's medical status Pt/Family Agrees to Plan: Yes Safety Risks/Education Teaching Recipient: Patient, Significant Other Teaching Methods: Demonstration, Discussion Response to Teaching: Verbalize Understanding, Return Demonstration Education Topics Provided: Diet level and safety of oral intake Time Speech Therapy Time In: 08:00 Speech Therapy Time Out: 08:15 Total Billed Time: 15 Billed Treatment Time PRASANTH Martin HILLARY Tenorio Nov 11, 2019 08:42
[2019-11-11] MEDS: Symbicort 160-4.5 Mcg Inhaler IH SCH ×2 (08:44→20:58)
[2019-11-11] MEDS ORDERED: PATIENT MAY USE OWN MED,SINGLE MED PO SCH (09:00)
--- NOTE | 2019-11-11 09:09 | Progress Note - Hospitalist ---
Subjective HPI/CC On Admission Date Seen by Provider: Nov 11, 2019 Time Seen by Provider: 09:00 Pt is an 79yoCM with a PMH of COPD, CAD, CHF, HTN, HLD who was admitted to the ICU from inpatient rehab due to acute respiratory distress. He is normally not on oxygen but following his recent discharge from the hospital to IRU he was on 4lpm. He awoke this morning at 0100AM with shortness of breath. Despite a breathing treatment he did not improve and told his family he thought he was going to . He Subjective/Events-last exam Pt reports feeling better and breathing better today. Still slightly confused. Thought someone took his oxygen off last night but states it fell off while he was asleep. Focused Exam Lactate Level 11/10/19 07:30: Lactic Acid Level 0.85 Objective Exam Vital Signs Vital Signs Date Time Temp Pulse Resp B/P (MAP) Pulse Ox O2 Delivery O2 Flow Rate FiO2 11/11/19 08:46 92 High Flow N/C 5.00 11/11/19 08:00 36.6 79 20 150/74 (99) Capillary Refill : General Appearance: No Apparent Distress, Chronically ill Respiratory: No Accessory Muscle Use, No Respiratory Distress, Wheezing Cardiovascular: Regular Rate, Rhythm, No Murmur Gastrointestinal: Normal Bowel Sounds, Soft Neurologic/Psychiatric: Alert, Other (oriented to person, place, and major details of admission) Results/Procedures Lab Laboratory Tests 11/11/19 02:29 Patient resulted labs reviewed. Imaging: Reviewed Imaging Report Assessment/Plan Assessment and Plan Assess & Plan/Chief Complaint Acute on Chronic Hypoxic Respiratory Failure Flu B positive Continue Tamiflu Pulm consulted, appreciate recs Discussed goals of care and he remains a DNR Palliative Care consulted Titrated down to 5lpm while at bedside, wean as able CHF CAD s/p CABG Hypertension Hyperlipidemia Follows with Dr Bhandari, consulted Continue Lasix Continue home meds COPD Pulm consulted Continue home inhalers Continue Solu-Medrol Seizure disorder Takes Dilantin from home Continue home meds Debility Dysphagia PT/OT Speech Therapy Diagnosis/Problems Diagnosis/Problems (1) Acute on chronic HFrEF (heart failure with reduced ejection fraction) Status: Acute (2) CHF (congestive heart failure) Qualifiers: Heart failure type: systolic Heart failure chronicity: acute on chronic Qualified Codes: I50.23 - Acute on chronic systolic (congestive) heart failure (3) Respiratory failure Status: Acute Qualifiers: Chronicity: acute Respiratory failure complication: hypoxia Qualified Codes: J96.01 - Acute respiratory failure with hypoxia Clinical Quality Measures DVT/VTE Risk/Contraindication: Risk Factor Score Per Nursin RFS Level Per Nursing on Admit: 4+=Very High TOMMIE GRAJEDA MD Nov 11, 2019 09:09
--- NOTE | 2019-11-11 09:19 | Progress Note - Cardiology ---
Cardiology SOAP Progress Note Subjective: No cp or palp or syncope Shortness of breath present, not worse than yesterday Gen weakness and malaise No n/v/d Objective: I&O/Vital Signs 11/10/19 11/10/19 11/11/19 11/11/19 22:00 23:00 00:00 00:00 Pulse 73 72 67 Resp 20 19 16 B/P (MAP) 159/80 (106) 130/61 (84) 141/60 (87) Pulse Ox 96 94 93 92 O2 Delivery High Flow N/C High Flow N/C High Flow N/C High Flow N/C O2 Flow Rate 10.00 10.00 10.00 10.00 11/11/19 11/11/19 11/11/19 11/11/19 00:00 01:00 01:00 02:00 Temp 36.8 Pulse 67 67 65 Resp 20 19 B/P (MAP) 137/59 (85) 139/55 (83) Pulse Ox 96 95 O2 Delivery High Flow N/C High Flow N/C O2 Flow Rate 10.00 10.00 11/11/19 11/11/19 11/11/19 11/11/19 02:40 03:00 03:42 04:00 Temp 36.8 Pulse 64 81 Resp 11 B/P (MAP) 136/60 (85) 165/63 (97) Pulse Ox 97 97 92 O2 Delivery High Flow N/C High Flow N/C High Flow N/C O2 Flow Rate 10.00 10.00 10.00 11/11/19 11/11/19 11/11/19 11/11/19 04:00 05:00 06:00 08:00 Temp 36.6 Pulse 68 62 79 Resp 20 B/P (MAP) 139/73 (95) 129/54 (79) 150/74 (99) Pulse Ox 92 92 95 94 O2 Delivery High Flow N/C High Flow N/C High Flow N/C High Flow N/C O2 Flow Rate 10.00 10.00 10.00 5.00 11/11/19 08:46 Pulse Ox 92 O2 Delivery High Flow N/C O2 Flow Rate 5.00 11/11/19 00:00 Intake Total 800 ml Output Total 1525 ml Balance -725 ml Weight (Pounds): 187 Weight (Ounces): 0.0 Weight (Calculated Kilograms): 84.012024 Constitutional: AAO x 3 (weak and tired and slow to respond and somnolent), well-developed, well-nourished Respiratory: No accessory muscle use, No respiratory distress; chest expansion is symmetric, chest is bilaterally symmetric, rhonchi (scattered) Cardiovascular: regular rate-rhythm; No JVD; S1 and S2, systolic murmur Gastrointestional: No tender; audible bowel sounds Extremities: no lower extremity edema bilateral Neurologic/Psychiatric: other (moves all limbs equally) Skin: No rash on exposed areas, No ulcerations on exposed areas; other (fragile skin integrity) Results/Procedures: Labs Laboratory Tests 11/10/19 12:15: Troponin I 0.040H 11/10/19 18:40: Troponin I 0.035H 11/10/19 23:53: Troponin I 0.032H 11/11/19 02:29: White Blood Count 6.2, Red Blood Count 4.08L, Hemoglobin 12.7L, Hematocrit 38L, Mean Corpuscular Volume 94, Mean Corpuscular Hemoglobin 31, Mean Corpuscular Hemoglobin Concent 33, Red Cell Distribution Width 13.4, Platelet Count 152, Mean Platelet Volume 11.5H, Neutrophils (%) (Auto) 79H, Lymphocytes (%) (Auto) 11L, Monocytes (%) (Auto) 9, Eosinophils (%) (Auto) 0, Basophils (%) (Auto) 0, Neutrophils # (Auto) 4.9, Lymphocytes # (Auto) 0.7L, Monocytes # (Auto) 0.6, Eosinophils # (Auto) 0.0, Basophils # (Auto) 0.0, Sodium Level 133L, Potassium Level 4.8, Chloride Level 95L, Carbon Dioxide Level 25, Anion Gap 13, Blood Urea Nitrogen 56H, Creatinine 1.04, Estimat Glomerular Filtration Rate > 60, BUN/Creatinine Ratio 54, Glucose Level 112H, Calcium Level 8.8, Corrected Calcium 9.4, Phosphorus Level 4.0, Magnesium Level 2.5H, Total Bilirubin 0.5, Aspartate Amino Transf (AST/SGOT) 72H, Alanine Aminotransferase (ALT/SGPT) 112H, Alkaline Phosphatase 113, Total Protein 7.9, Albumin 3.3 11/11/19 06:52: Urine Color YELLOW, Urine Clarity CLEAR, Urine pH 6.0, Urine Specific [place] 1.015L, Urine Protein TRACEH, Urine Glucose (UA) NEGATIVE, Urine Ketones NEGATIVE, Urine Nitrite NEGATIVE, Urine Bilirubin NEGATIVE, Urine Urobilinogen 0.2, Urine Leukocyte Esterase 1+H, Urine RBC (Auto) 3+H, Urine RBC 5-10H, Urine WBC 2-5, Urine Crystals NONE, Urine Bacteria TRACE, Urine Casts NONE, Urine Mucus NEGATIVE, Urine Culture Indicated YES Microbiology 11/10/19 Influenza Types A,B Antigen ([place]) - Final, Complete Laboratory Tests 11/10/19 06:55 11/10/19 07:30 11/11/19 02:29 A/P: Assessment: Acute on chronic resp failure (multifactorial) Flu B Pre-renal azotemia due to intravasc vol depletion due to diuretic therapy - imp roved Gen weakness and malaise, likely related to his multiple comorbidities (see below) Acute on chronic systolic CHF Coronary artery disease with a history of coronary artery bypass surgery several years ago. Last cardiac catheterization was in December 2009. It showed severe [place] coronary artery disease, including mid-vessel occlusion of the right coronary and the left circumflex and severe stenosis in the mid left anterior descending artery. There was patent saphenous vein graft to distal right coronary, patent saphenous vein graft to obtuse marginal, patent left internal mammary artery graft to mid left anterior descending artery. He underwent successful percutaneous intervention and stenting to the proximal and mid right coronary artery and a large right ventricular branch with drug-eluting stents (Promus 2.5 x 12 and Promus 2.5 x 23 proximal to distal, slightly overlapping). Since his coronary stenting of December 2009, he has not had any recurrence of angina pectoris. Last myocardial perfusion imaging of December 2018 showed inferior and lateral wall myocardial infarctions without significant ischemia. Marked cardiomegaly. Inferior and lateral wall akinesis. Global hypokinesis. LVEF 8% Ischemic cardiomyopathy with varied LVEF of 8-30% by various measurements over the course of the last several years. Echo 11/03/19 marked enlargement of LV, mod enlargement of LA, LVEF 20-25%, mod MR & TR RVSP approx 43 mmHg. Defibrillator implantation for prophylaxis against sudden cardiac . ICD discharge occurred on 04/12/14 at 2:24 am to treat VF. None since. Device is functioning normally. It reached VI on Apr 14, 2015 and was replaced on 05/10/15 and site does not show evidence of hematoma or inflammation. It is functioning normally per interrogation of 08/12/19 Intolerance to Amiodarone d/t dizziness/weakness when taking this medication per patient and spouse. He refuses therapy with antiarrhythmics, including amiodarone Dyslipidemia. 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 EEG per September 21, [address] Tyson was abnormal, but without clear epileptiform activity (done during a hospitalization of Sep 2014 at [facility] and requested by Dr Barrientos). Carotid arterial disease, approx 50% R ICA stenosis, less than 40% L ICA stenosis per u/s of September 2019 Gastroesophageal reflux. History of mildly elevated alkaline phosphatase followed by his family physcian. H/o intermittent AST/ALT elevation, possibly due to statin therapy. Reactive airways disease. Nocturnal hypoxemia, but no MAGUI on sleep studies of a few years ago Back pain, managed by Dr Knowles. Recent CT lumbar spine w/o contrast ordered by Dr Knowles (01/02/17): neural froaminal stenosis of L5-S1, bilat renal lesions that could not be adequately characterized and for which he has had u/s at the same office on 01/17/17, abd ao atherosclerosis Segmental pressures of December 2016: mod disease involving the distal arterial circulation of the left leg. No c/o claudication of the left leg. Aorta u/s of December 2016: No evidence of AAA Poor balance of undetermined etiology, chronic, managed by pcp Plan: * Slow hydration for intravasc vol depletion and pre-renal azotemia * Diuretics as needed * Continue therapy for ischemic cm * Monitor labs * I discussed his case with Dr Nimisha dowling am DANNIELLE BRAUN MD FACP FAC CCDS Nov 11, 2019 09:19
--- NOTE | 2019-11-11 11:07 | Occupational Therapy Eval ---
OT Evaluation-General/PLF Medical Diagnosis Admission Date Nov 10, 2019 at 05:35 Medical Diagnosis: Respiratory Failure Onset Date: Nov 10, 2019 Therapy Diagnosis Therapy Diagnosis: impaired ADLs/functional mobility Height/Weight Height (Feet): 6 Height (Inches): 0 Weight (Pounds): 187 Weight (Ounces): 0.0 Precautions Precautions/Isolations: Fall Prevention, Standard Precautions, Pressure Ulcer Safety Interventions: Notify Family, Bed Exit Alarm Referral Physician: Nimisha Referral Reason: Evaluation/Treatment Medical History Pertinent Medical History: CABG, COPD, CVA, HTN Additional Medical History high cholesterol, seizure disorder Current History Pt admitted acutely on 11/02/2019 for CHF, transferring to ARU on 11/06/2019. He then was admitted to the ICU on 11/10/2019 due to increased respiratory distress and pt then tested positive for influenza B Reviewed History: Yes Social History Home: Single Level Current Living Status: Spouse ADL-Prior Level of Function SCALE: Activities may be completed with or without assistive devices. 6-Fvjmebfxvc-nrlnjcy completes the activity by him/herself with no assistance from a helper. 5-Set-up or Clean-up Assistance-helper sets up or cleans up; patient completes activity. [place] assists only prior to or following the activity. 4-Supervision or Touching Assistance-helper provides verbal cues and/or touching/steadying and/or contact guard assistance as patient completes activity. Assistance may be provided throughout the activity or intermittently. 3-Partial/Moderate Assistance-helper does LESS THAN HALF the effort. [place] lifts, holds or supports trunk or limbs, but provides less than half the effort. 2-Substantial/Maximal Assistance-helper does MORE THAN HALF the effort. [place] lifts or holds trunk or limbs and provides more than half the effort. 1-Eyshyqshg-sclihc does ALL the effort. Patient does none of the effort to complete the activity. Or, the assistance of 2 or more helpers is required for the patient to complete the activity. If activity was not attempted, code reason: 7-Patient Refused. 9-Not Applicable-not attempted and the patient did not perform the activity before the current illness, exacerbation or injury. 10-Not Attempted due to Environmental Limitations-(lack of equipment, weather restraints, etc.). 88-Not Attempted due to Medical Conditions or Safety Concerns. ADL PLOF Comments Pt and provide PLOF, indicating he requires assistance getting in and out of the tub but he completed other ADLs with modified independence based on his energy level. He has a tub with a built in bench, and a small bathroom that was previously a small closet. His indicates it is a tight fit into the bathroom, but the lowery are close to provide him support if he needs it and he has grab bars. Pt has difficulty wearing jeans because his left hand is unable to hold his pants while his right hand zips his pants. He performs functional mobility with a FWW with walker basket attached. Self Care: Needed Some Help Functional Cognition: Independent DME/Equipment: Bath Bench, Tub/Shower DME/Equipment Comments FWW with walker basket Drive Self: Yes Leisure Interests: watching sports on TV OT Current Status Subjective Pt seated upright in recliner eating breakfast with his present. Pt appeared slightly confused today, telling stories to OT that his reports he has told differently each time, interchanging names of people. Pt denied pain Mental Status/Objective Patient Orientation: Person, Place, Situation Attachments: IV, Oxygen (10 L) Current Glasses/Contacts: Yes Hearing Aids: No Dentures/Partials: Yes Hand Dominance: Right Upper Extremity ROM RUE WFL, LUE active shoulder flexion to approx 90 degrees with full PROM Upper Extremity Coordination WFL RUE, decreased LUE coordination Upper Extremity Strength WFL RUE, decreased LUE ADL-Treatment Eating (QC): 6 (Pt seated upright in recliner eating breakfast, he was able to bring food to mouth and take small bites of food without difficulty.) Other Treatments Pt seated upright in recliner eating breakfast throughout session. Pt and provided information about his PLOF and home set up, pt participates in ROM screening for evaluation. Pt told OT stories, where his indicates he was getting names mixed up and he had told the same story earlier in the day slightly differently. Post OT session, pt upright in recliner, call light in reach and all needs met with his present. Education OT Patient Education: Correct positioning, Energy conservation, Modified ADL techniques, Progress toward Goal/Update tx plan, Purpose of tx/functional activities Teaching Recipient: Patient, Significant Other Teaching Methods: Discussion Response to Teaching: Verbalize Understanding OT Domestic Helper Goals Domestic Helper Goals Time Frame: Nov 25, 2019 Oral Hygiene (QC): 5 Toileting Hygiene (QC): 4 Shower/Bathe Self (QC): 4 Upper Body Dressing (QC): 5 Lower Body Dressing (QC): 4 On/Off Footwear (QC): 4 1=Demonstrate adherence to instructed precautions during ADL tasks. 2=Patient will verbalize/demonstrate understanding of assistive devices/modifications for ADL. 3=Patient will improve strength/tolerance for activity to enable patient to perform ADL's. OT Education/Plan Problem List/Assessment Assessment: Decreased Activ Tolerance, Decreased UE Strength, Impaired Coordination, Impaired Funct Balance, Impaired I ADL's, Impaired Self-Care Skills, Restricted Funct UE ROM Discharge Recommendations Plan/Recommendations: Continue POC Therapy Discharge Recommendati: Home & Family, Post Acute OT Treatment Plan/Plan of Care Patient would benefit from OT for education, treatment and training to promote independence in ADL's, mobility, safety and/or upper extremity function for ADL's. Plan of Care: ADL Retraining, Functional Mobility, UE Funct Exercise/Act Treatment Duration: Nov 25, 2019 Frequency: 5 times per week Estimated Hrs Per Day: .25 hour per day Agreement: Yes Rehab Potential: Good Time/GCodes Start Time: 10:30 Stop Time: 10:45 Total Time Billed (hr/min): 15 Billed Treatment Time 1, STEWART ERICKSON OT Nov 11, 2019 11:07
--- NOTE | 2019-11-11 11:26 | NUR ---
REVIEWED MEDS SO THEY COULD BE CONTINUED- NOTHING HAD CHANGED FROM HIS 4TH FLOOR STAY TO IRF TO ICU
--- NOTE | 2019-11-11 11:34 | Physical Therapy Evaluation ---
PT Evaluation-General Medical Diagnosis Admission Date Nov 10, 2019 at 05:35 Medical Diagnosis: Respiratory Failure Onset Date: Nov 10, 2019 Therapy Diagnosis Therapy Diagnosis: impaired mobility, endurance Height/Weight Height (Feet): 6 Height (Inches): 0 Weight (Pounds): 187 Weight (Ounces): 0.0 Precautions Precautions/Isolations: Fall Prevention, Standard Precautions, Pressure Ulcer Weight Bear Status Right Lower Extremity: Right Weight Bearing/Tolerated Left Lower Extremity: Left Weight Bearing/Tolerated Referral Physician: Nimisha Reason for Referral: Evaluation/Treatment Medical History Pertinent Medical History: CABG, COPD, CVA, HTN Reviewed History: Yes Social History Home: Single Level Current Living Status: Spouse Entry Into Home: Level Entry Prior Prior Level of Function SCALE: Activities may be completed with or without assistive devices. 8-Dmkeqcasri-kvpepxw completes the activity by him/herself with no assistance from a helper. 5-Set-up or Clean-up Assistance-helper sets up or cleans up; patient completes activity. [place] assists only prior to or following the activity. 4-Supervision or Touching Assistance-helper provides verbal cues and/or touching/steadying and/or contact guard assistance as patient completes activity. Assistance may be provided throughout the activity or intermittently. 3-Partial/Moderate Assistance-helper does LESS THAN HALF the effort. [place] lifts, holds or supports trunk or limbs, but provides less than half the effort. 2-Substantial/Maximal Assistance-helper does MORE THAN HALF the effort. [place] lifts or holds trunk or limbs and provides more than half the effort. 8-Sfcjmmshq-cwnpwe does ALL the effort. Patient does none of the effort to complete the activity. Or, the assistance of 2 or more helpers is required for the patient to complete the activity. If activity was not attempted, code reason: 7-Patient Refused. 9-Not Applicable-not attempted and the patient did not perform the activity before the current illness, exacerbation or injury. 10-Not Attempted due to Environmental Limitations-(lack of equipment, weather restraints, etc.). 88-Not Attempted due to Medical Conditions or Safety Concerns. Bed Mobility: 6 Transfers (B,C,W/C): 6 Gait: 4 Indoor Mobility (Ambulation): Needed Some Help PT Evaluation-Current Subjective Patient in recliner pre tx, agrees to PT, no complaints of pain, patient states he is breathing better. Pt/Family Goals "to get back to rehab" Objective Patient Orientation: Person, Place, Situation Attachments: Oxygen, Manzano Catheter, IV ROM/Strength ROM Lower Extremities WNL Strength Lower Extremities 4/5 gross BLE Sensory Vision: Wears Glasses Hearing: Functional Hand Dominance: Right Sensation Right Lower Extremit: Intact Sensation Left Lower Extremity: Intact Transfers Sit to Stand (QC): 4 CGA, cues for hand placement and positioning. Patient stood in front of chair for about 10 min. O2 stayed above 92% at all times. Balance Sitting Static: Normal Sitting Dynamic: Normal Standing Static: Good Treatment Mini-squats x10 using RW, seated BLE exercises x10 (AP, LAQ, abd/add, hip flexion) Assessment/Needs Patient has impaired mobility, strength, endurance. His O2 stayed up even with talking and activity. Rehab Potential: Fair PT Personal Support Worker Goals Residential Goals PT Residential Goals Time Frame: Nov 18, 2019 Roll Left & Right (QC): 6 Sit to Lying (QC): 6 Lying-Sitting on Side/Bed(QC): 6 Sit to Stand (QC): 6 Chair/Pmi-ft-Vkjud Xfer(QC): 6 Walk 10 feet (QC): 4 Walk 50ft with 2 Turns (QC): 4 PT Plan Problem List Problem List: Activity Tolerance, Functional Strength, Safety, Balance, Gait, Transfer, Bed Mobility Treatment/Plan Treatment Plan: Continue Plan of Care Treatment Plan: Bed Mobility, Education, Functional Activity Drew, Functional Strength, Gait, Safety, Therapeutic Exercise, Transfers Treatment Duration: Nov 18, 2019 Frequency: 6 times per week Estimated Hrs Per Day: .25 hour per day Patient and/or Family Agrees t: Yes Safety Risks/Education Patient Education: Transfer Techniques, Correct Positioning, Safety Issues Teaching Recipient: Patient Teaching Methods: Demonstration, Discussion Response to Teaching: Reinforcement Needed Discharge Recommendations Plan Patient will perform bed mobility and transfer training, balance and endurance training, functional strengthening, stair training, gait training, and education, to improve functional mobility and independence at home. Therapy Discharge Recommendati: Home & Family Time/GCodes Time In: 1113 Time Out: 1128 Total Billed Treatment Time: 15 Total Billed Treatment 1 visit NATALIE MALDONADO PT Nov 11, 2019 11:34
--- NOTE | 2019-11-11 12:00 | NUR ---
PT TRANSFERRED TO ROOM 427 FROM ICU. REPORT RECEIVED FROM KRISTIAN LICEA. PT A/O X4. DENIES ANY PAIN AT THIS TIME. PT ORIENTED TO ROOM. PT PLACED IN RECLINER WITH FISH DRAINING TO DEPENDENT DRAINAGE. DENIES ANY NEEDS AT THIS TIME. AT BEDSIDE. CALL LIGHT WITHIN REACH.
--- NOTE | 2019-11-11 12:00 | NUR ---
PT TRANSFERRED TO ROOM 427 VIA CHAIR ACCOMPANIED BY THIS RN AND PT , PT PERSONAL BELONGINGS SENT TO ROOM WITH PT INCLUDING PT HOME MEDS. Addendum: 11/11/19 at 1202 by CHELLY MIRZA RN REPORT GIVEN TO QUINCY TOWNSEND FOR CONTINUING CARE.
[2019-11-11] MEDS: ENOXAPARIN 40 MG/0.4 ML (LOVENOX) SYR SC SCH (20:53)
[2019-11-12] MEDS: RT-ALBUTEROL/IPRATROPIUM 3 ML (DUONEB) VIAL INH SCH ×6 (00:33→22:33)
[2019-11-12 00:36] VITALS: BP 169/77
[2019-11-12] MEDS: methylPREDNISolone 40 MG/ML (Solu-MEDROL) VIAL IV SCH ×4 (02:57→21:25)
[2019-11-12 04:26] VITALS: BP 171/70
--- NOTE | 2019-11-12 05:39 | Diagnostic Imaging Report ---
Indication: Respiratory distress Portable chest 4:28 AM There are postoperative changes from CABG surgery. There is unipolar pacemaker with ICD. Heart is mildly enlarged. Pulmonary vascularity is normal. Lungs are clear. There are no effusions or pneumothoraces. IMPRESSION: Postsurgical changes in the chest. There is improved aeration compared to the previous day. Dictated by: Dictated on workstation # [id number]
[2019-11-12 06:56] LABS: BASOPHILS % (AUTO) 0 % (0-10); EOSINOPHILS % (AUTO) 0 % (0-10); HEMATOCRIT 39 % (40-54); HEMOGLOBIN 13.2 G/DL (13.3-17.7); LYMPHOCYTES # (AUTO) 0.5 X 10^3 (1.0-4.0); LYMPHOCYTES % (AUTO) 8 % (12-44); MEAN CORPUSCULAR HEMOGLOBIN 32 PG (25-34); MEAN CORPUSCULAR HGB CONC 34 G/DL (32-36); MEAN CORPUSCULAR VOLUME 93 FL (80-99); MEAN PLATELET VOLUME 11.4 FL (7.4-10.4); MONOCYTES # (AUTO) 0.5 X 10^3 (0.0-1.0); MONOCYTES % (AUTO) 9 % (0-12); NEUTROPHILS # (AUTO) 5.1 X 10^3 (1.8-7.8); NEUTROPHILS % (AUTO) 83 % (42-75); PLATELET COUNT 178 10^3/uL (130-400); RED CELL DISTRIBUTION WIDTH 13.2 % (10.0-14.5); WHITE BLOOD COUNT 6.1 10^3/uL (4.3-11.0)
[2019-11-12 07:17] LABS: BUN/CREATININE RATIO 47; CALCIUM 8.9 MG/DL (8.5-10.1); CARBON DIOXIDE 29 MMOL/L (21-32); CHLORIDE 95 MMOL/L (98-107); CREATININE SERUM 1.07 MG/DL (0.60-1.30); GFR ESTIMATED > 60; GLUCOSE 116 MG/DL (70-105); POTASSIUM 4.9 MMOL/L (3.6-5.0); SODIUM 133 MMOL/L (135-145)
[2019-11-12 08:00] VITALS: BP 171/72
[2019-11-12] MEDS: KCL 20 MEQ TAB (K-DUR) PO SCH (08:28)
[2019-11-12] MEDS: MAGNESIUM 1 GM/100 ML IVPB 100 ML IV SCH (08:28)
[2019-11-12] MEDS: POTASSIUM CL 10MEQ/50ML IVPB 50 ML IV SCH (08:28)
--- NOTE | 2019-11-12 09:02 | Physical Therapy Daily Note ---
PT Daily Note-Current Subjective Patient reports no pain but, deep congestion and unable to cough mucus up. Appearance Patient was returned to recliner with call light and tray in reach. Feet up. Mental Status Patient Orientation: Person, Place, Eyes Open Attachments: Oxygen, Manzano Catheter Transfers SCALE: Activities may be completed with or without assistive devices. 3-Vjhrrrswfq-adujpgk completes the activity by him/herself with no assistance from a helper. 5-Set-up or Clean-up Assistance-helper sets up or cleans up; patient completes activity. [place] assists only prior to or following the activity. 4-Supervision or Touching Assistance-helper provides verbal cues and/or touching/steadying and/or contact guard assistance as patient completes activity. Assistance may be provided throughout the activity or intermittently. 3-Partial/Moderate Assistance-helper does LESS THAN HALF the effort. [place] lifts, holds or supports trunk or limbs, but provides less than half the effort. 2-Substantial/Maximal Assistance-helper does MORE THAN HALF the effort. [place] lifts or holds trunk or limbs and provides more than half the effort. 0-Nqxlhvbox-zswcfi does ALL the effort. Patient does none of the effort to complete the activity. Or, the assistance of 2 or more helpers is required for the patient to complete the activity. If activity was not attempted, code reason: 7-Patient Refused. 9-Not Applicable-not attempted and the patient did not perform the activity before the current illness, exacerbation or injury. 10-Not Attempted due to Environmental Limitations-(lack of equipment, weather restraints, etc.). 88-Not Attempted due to Medical Conditions or Safety Concerns. Sit to Stand (QC): 4 (CGA for standing and assistance with placement of LUE on platform RW) Chair/Ycv-wu-Gegmw Xfer(QC): 4 Weight Bearing Right Lower Extremity: Right Weight Bearing/Tolerated Left Lower Extremity: Left Weight Bearing/Tolerated Gait Training Distance: 10ft 3x Walk 10 feet (QC): 4 (CGA with hand on RW when backing up to assist patient) Gait Assistive Device: FWW Forward posture and slow but steady ambulation Exercises Seated Therapy Exercises: Ankle pumps, Long arc quads, Hip flexion Seated Reps: 10 (2x) Standing: Mini squats (2x10) Assessment Current Status: Fair Progress Patient is motivated to complete treatment but become fatigue quickly. Patient has to take rest breaks to breathe and attempt to cough up mucus. PT Lining Marker Goals Longterm Goals PT Lining Marker Goals Time Frame: Nov 18, 2019 Roll Left & Right (QC): 6 Sit to Lying (QC): 6 Lying-Sitting on Side/Bed(QC): 6 Sit to Stand (QC): 6 Chair/Rxz-vm-Hkkoz Xfer(QC): 6 Walk 10 feet (QC): 4 Walk 50ft with 2 Turns (QC): 4 PT Plan Problem List Problem List: Activity Tolerance, Functional Strength, Safety, Balance, Gait, Transfer, Bed Mobility, ROM Treatment/Plan Treatment Plan: Continue Plan of Care Treatment Plan: Bed Mobility, Education, Functional Activity Drew, Functional Strength, Gait, Safety, Therapeutic Exercise, Transfers Treatment Duration: Nov 18, 2019 Frequency: 6 times per week Estimated Hrs Per Day: .25 hour per day Patient and/or Family Agrees t: Yes Safety Risks/Education Patient Education: Gait Training, Transfer Techniques, Reviewed Precautions, Correct Positioning, Disease Process Teaching Recipient: Patient Teaching Methods: Demonstration, Discussion, Audiovisual Response to Teaching: Verbalize Understanding, Return Demonstration, Reinforcement Needed Time/GCodes Time In: 0835 Time Out: 0855 Total Billed Treatment Time: 25 Total Billed Treatment visit 1 FA NATALIE YORK PT Nov 12, 2019 09:02
[2019-11-12] MEDS: PHENYTOIN 100 MG (DILANTIN) CAP PO SCH ×2 (09:32→17:17)
[2019-11-12] MEDS: FUROSEMIDE 40 MG/4 ML INJ (LASIX) IVP SCH (09:32)
[2019-11-12] MEDS: SENNA W/DOCUSATE (SENOKOT S) TABLET PO SCH ×2 (09:32→21:25)
[2019-11-12] MEDS: OSELTAMIVIR 75 MG (TAMIFLU) CAPSULE PO SCH ×2 (09:33→21:25)
[2019-11-12] MEDS: Symbicort 160-4.5 Mcg Inhaler IH SCH ×2 (09:33→19:56)
--- NOTE | 2019-11-12 11:20 | Occupational Ther Daily Note ---
OT Current Status-Daily Note Subjective Pt alert, sitting in recliner. present in room. Pt agrees to therapy. No c/o pain at this time. Mental Status/Objective Patient Orientation: Person, Place, Time, Situation Attachments: Manzano Catheter, IV, Oxygen ADL-Treatment Pt agrees to sponge bath. CGA for sit to stand from recliner. CGA and assist to manipulate O2 tubing to ambulate to bathroom. Pt sat at sink to complete sponge bath. After set up, pt completed upper body by self. CGA in standing to cleanse buttocks and larissa area. Pt able to thread arms through hospital gown and assist to tie in back. Pt completed own shaving sitting at sink. Pt ambulated back to recliner using platform FWW. Pt able to doff/don socks by self. Therapy Code Descriptions/Definitions Functional [place] Measure: 0=Not Assessed/NA 4=Minimal Assistance 1=Total Assistance 5=Supervision or Setup 2=Maximal Assistance 6=Modified [place] 3=Moderate Assistance 7=Complete IndependenceSCALE: Activities may be completed with or without assistive devices. 5-Xeqdpkdnnm-zkmsjcq completes the activity by him/herself with no assistance from a helper. 5-Set-up or Clean-up Assistance-helper sets up or cleans up; patient completes activity. [place] assists only prior to or following the activity. 4-Supervision or Touching Assistance-helper provides verbal cues and/or touching/steadying and/or contact guard assistance as patient completes activit y. Assistance may be provided throughout the activity or intermittently. 3-Partial/Moderate Assistance-helper does LESS THAN HALF the effort. [place] lifts, holds or supports trunk or limbs, but provides less than half the effort. 2-Substantial/Maximal Assistance-helper does MORE THAN HALF the effort. [place] lifts or holds trunk or limbs and provides more than half the effort. 4-Bwfjltbvk-grcpje does ALL the effort. Patient does none of the effort to complete the activity. Or, the assistance of 2 or more helpers is required for the patient to complete the activity. If activity was not attempted, code reason: 7-Patient Refused. 9-Not Applicable-not attempted and the patient did not perform the activity before the current illness, exacerbation or injury. 10-Not Attempted due to Environmental Limitations-(lack of equipment, weather restraints, etc.). 88-Not Attempted due to Medical Conditions or Safety Concerns. Oral Hygiene (QC): 7 Shower/Bathe Self (QC): 4 On/Off Footwear: 5 Other Treatment Completed L UE exercises to work on ergonomically correct movement for L shldr with assist. Educated pt and on correct movements. After session, pt sitting in recliner with call light/phone in reach. All needs met in room. OT Receiver/Laborer Goals Receiver/Laborer Goals Time Frame: Nov 25, 2019 Oral Hygiene (QC): 5 Toileting Hygiene (QC): 4 Shower/Bathe Self (QC): 4 Upper Body Dressing (QC): 5 Lower Body Dressing (QC): 4 On/Off Footwear (QC): 4 1=Demonstrate adherence to instructed precautions during ADL tasks. 2=Patient will verbalize/demonstrate understanding of assistive devices/modifications for ADL. 3=Patient will improve strength/tolerance for activity to enable patient to perform ADL's. OT Education/Plan Problem List/Assessment Assessment: Decreased Activ Tolerance, Decreased UE Strength, Impaired Funct Balance, Impaired Self-Care Skills, Restricted Funct UE ROM Discharge Recommendations Plan/Recommendations: Continue POC Treatment Plan/Plan of Care Patient would benefit from OT for education, treatment and training to promote independence in ADL's, mobility, safety and/or upper extremity function for ADL's. Plan of Care: ADL Retraining, Functional Mobility, UE Funct Exercise/Act Treatment Duration: Nov 25, 2019 Frequency: 5 times per week Estimated Hrs Per Day: .25 hour per day Agreement: Yes Rehab Potential: Fair Time/GCodes Start Time: 09:30 Stop Time: 10:26 Total Time Billed (hr/min): 54 Billed Treatment Time 1 visit-ADL 4 (54 min) JERARDO ONOFRE Nov 12, 2019 11:20
[2019-11-12 12:00] VITALS: BP 163/77
[2019-11-12] MEDS ORDERED: guaiFENesin (MUCINEX) 600 MG TAB PO PRN (13:00)
--- NOTE | 2019-11-12 15:07 | NUR ---
Swing Bed Note: Qualifies for swing bed for continued need for Physical et Occupational therapies while continuing to wean oxygen (Acute Respiratory Failure d/t Flu). Likely patient will need to continue with correction rehabilitation (Weakness) once his swing bed hospitalization is completed. They indicate that they would like [facility] vs. [facility] et will discuss this with this nurse as he is on swing bed here so that a referral can be sent out. Anticipate admission to swing bed beginning tomorrow 11/13/19.
--- NOTE | 2019-11-12 15:13 | NUR ---
Palliative Care RN in to see patient. He has moved to 4th floor and was getting a breathing treatment at the time of visit. Post treatment the RN is testing him on a lower level of Oxygen. He is on 2 L currently and SPO2 is 90% but later dropped and is now at 8L NC. We discussed the difficulties of his medical situation and again talked about Hospice He has been on this twice before.
--- NOTE | 2019-11-12 15:26 | Progress Note - Hospitalist ---
Subjective HPI/CC On Admission Date Seen by Provider: Nov 12, 2019 Time Seen by Provider: 15:24 Pt is an 79yoCM with a PMH of COPD, CAD, CHF, HTN, HLD who was admitted to the ICU from inpatient rehab due to acute respiratory distress. He is normally not on oxygen but following his recent discharge from the hospital to IRU he was on 4lpm. He awoke this morning at 0100AM with shortness of breath. Despite a breathing treatment he did not improve and told his family he thought he was going to . He Subjective/Events-last exam Pt reports feeling slightly better today. oxygen up today. Discussed plan for continued weaning of oxygen and possibility of swing bed status. Focused Exam Lactate Level 11/10/19 07:30: Lactic Acid Level 0.85 Objective Exam Vital Signs Vital Signs Date Time Temp Pulse Resp B/P (MAP) Pulse Ox O2 Delivery O2 Flow Rate FiO2 11/12/19 12:00 36.6 87 20 163/77 (105) 99 High Flow N/C 10.00 Capillary Refill : Less Than 3 Seconds General Appearance: No Apparent Distress, Chronically ill Respiratory: No Accessory Muscle Use, Rhonci, Other (on HFNC) Cardiovascular: Regular Rate, Rhythm, No Murmur Gastrointestinal: Normal Bowel Sounds, Non Tender, Soft Neurologic/Psychiatric: Alert, Oriented x3 Results/Procedures Lab Laboratory Tests 11/12/19 06:17 Patient resulted labs reviewed. Imaging: Reviewed Imaging Report Assessment/Plan Assessment and Plan Assess & Plan/Chief Complaint Acute on Chronic Hypoxic Respiratory Failure Flu B positive Continue Tamiflu Pulm consulted, appreciate recs Discussed goals of care and he remains a DNR Palliative Care consulted Wean oxygen as able to keep sats >90 Swing bed consult CHF CAD s/p CABG Hypertension Hyperlipidemia Follows with Dr Bhandari, consulted Continue Lasix Continue home meds COPD Pulm consulted Continue home inhalers Continue Solu-Medrol Seizure disorder Takes Dilantin from home Continue home meds Debility Dysphagia PT/OT Speech Therapy Diagnosis/Problems Diagnosis/Problems (1) Acute on chronic HFrEF (heart failure with reduced ejection fraction) Status: Acute (2) CHF (congestive heart failure) Qualifiers: Heart failure type: systolic Heart failure chronicity: acute on chronic Qualified Codes: I50.23 - Acute on chronic systolic (congestive) heart failure (3) Respiratory failure Status: Acute Qualifiers: Chronicity: acute Respiratory failure complication: hypoxia Qualified Codes: J96.01 - Acute respiratory failure with hypoxia Clinical Quality Measures DVT/VTE Risk/Contraindication: Risk Factor Score Per Nursin RFS Level Per Nursing on Admit: 4+=Very High TOMMIE GRAJEDA MD Nov 12, 2019 15:25
[2019-11-12 16:23] VITALS: BP 159/74
[2019-11-12 19:31] VITALS: BP 175/63
[2019-11-12] MEDS ORDERED: MONTELUKAST 10 MG (SINGULAIR) TAB PO SCH (21:00)
[2019-11-12] MEDS ORDERED: NON-FORMULARY MEDICATION 1 EA EA (Clobetasol Propionate 1 APPLIC) TOP SCH (21:00)
[2019-11-12] MEDS ORDERED: SIMvastatin 10 MG (ZOCOR) TAB PO SCH (21:00)
[2019-11-12] MEDS ORDERED: PHENobarbital 64.8 MG (1 GRAIN) TAb PO SCH (21:00)
[2019-11-12] MEDS: ENOXAPARIN 40 MG/0.4 ML (LOVENOX) SYR SC SCH (21:25)
[2019-11-13 00:01] VITALS: BP 128/74
[2019-11-13] MEDS: RT-ALBUTEROL/IPRATROPIUM 3 ML (DUONEB) VIAL INH SCH ×3 (02:10→10:58)
[2019-11-13] MEDS: methylPREDNISolone 40 MG/ML (Solu-MEDROL) VIAL IV SCH ×2 (04:29→08:46)
[2019-11-13 04:33] VITALS: BP 187/83
[2019-11-13 05:01] LABS: BASOPHILS % (AUTO) 0 % (0-10); EOSINOPHILS % (AUTO) 0 % (0-10); HEMATOCRIT 41 % (40-54); HEMOGLOBIN 13.8 G/DL (13.3-17.7); LYMPHOCYTES # (AUTO) 0.9 X 10^3 (1.0-4.0); LYMPHOCYTES % (AUTO) 14 % (12-44); MEAN CORPUSCULAR HEMOGLOBIN 32 PG (25-34); MEAN CORPUSCULAR HGB CONC 34 G/DL (32-36); MEAN CORPUSCULAR VOLUME 93 FL (80-99); MEAN PLATELET VOLUME 11.2 FL (7.4-10.4); MONOCYTES # (AUTO) 0.9 X 10^3 (0.0-1.0); MONOCYTES % (AUTO) 13 % (0-12); NEUTROPHILS # (AUTO) 5.1 X 10^3 (1.8-7.8); NEUTROPHILS % (AUTO) 74 % (42-75); PLATELET COUNT 209 10^3/uL (130-400); RED CELL DISTRIBUTION WIDTH 13.3 % (10.0-14.5); WHITE BLOOD COUNT 6.9 10^3/uL (4.3-11.0)
[2019-11-13 05:17] LABS: BUN/CREATININE RATIO 51; CALCIUM 9.3 MG/DL (8.5-10.1); CARBON DIOXIDE 29 MMOL/L (21-32); CHLORIDE 93 MMOL/L (98-107); CREATININE SERUM 0.95 MG/DL (0.60-1.30); GFR ESTIMATED > 60; GLUCOSE 112 MG/DL (70-105); POTASSIUM 4.7 MMOL/L (3.6-5.0); SODIUM 133 MMOL/L (135-145)
[2019-11-13] MEDS: KCL 20 MEQ TAB (K-DUR) PO SCH (05:36)
[2019-11-13] MEDS: MAGNESIUM 1 GM/100 ML IVPB 100 ML IV SCH (05:36)
[2019-11-13] MEDS: POTASSIUM CL 10MEQ/50ML IVPB 50 ML IV SCH (05:36)
[2019-11-13 08:00] VITALS: BP 155/70
[2019-11-13] MEDS: SENNA W/DOCUSATE (SENOKOT S) TABLET PO SCH (08:45)
[2019-11-13] MEDS: OSELTAMIVIR 75 MG (TAMIFLU) CAPSULE PO SCH (08:46)
[2019-11-13] MEDS: PHENYTOIN 100 MG (DILANTIN) CAP PO SCH (08:47)
[2019-11-13] MEDS ORDERED: DIGOXIN 0.25 MG (LANOXIN) TAB PO SCH (09:00)
[2019-11-13] MEDS ORDERED: FUROSEMIDE 40 MG (LASIX) TAB PO SCH (09:00)
[2019-11-13] MEDS ORDERED: LEVOTHYROXINE 75 MCG (LEVOTHROID) TABLET PO SCH (09:00)
[2019-11-13] MEDS ORDERED: lisINopril 5 MG (PRINIVIL) TABLET PO SCH (09:00)
[2019-11-13] MEDS ORDERED: meTOproloL SUCCINATE 50 MG (TOPROL XL) TAB PO SCH (09:00)
[2019-11-13] MEDS: Symbicort 160-4.5 Mcg Inhaler IH SCH (10:58)
[2019-11-13 12:00] VITALS: BP 137/67
--- NOTE | 2019-11-13 13:02 | Discharge Summary ---
Diagnosis/Chief Complaint Date of Admission Nov 10, 2019 at 05:35 Date of Discharge Discharge Date: Nov 13, 2019 Admission Diagnosis Acute Hypoxic Respiratory Failure Primary Care Brendon Trejo MD Discharge Diagnosis (1) Acute on chronic HFrEF (heart failure with reduced ejection fraction) Status: Acute (2) CHF (congestive heart failure) (3) Respiratory failure Status: Acute Discharge Summary Discharge Physical Exam Allergies: Coded Allergies: amiodarone (Verified Allergy, Severe, 03/13/19) lorazepam (Verified Allergy, Unknown, 03/13/19) scopolamine (Verified Allergy, Unknown, 03/13/19) Vitals & I&Os Vital Signs Date Time Temp Pulse Resp B/P (MAP) Pulse Ox O2 Delivery O2 Flow Rate FiO2 11/13/19 12:00 36.1 71 20 137/67 (90) 94 High Flow N/C 3.00 Hospital Course Labs (last 24 hrs) Laboratory Tests 11/13/19 04:50: White Blood Count 6.9, Red Blood Count 4.38, Hemoglobin 13.8, Hematocrit 41, Mean Corpuscular Volume 93, Mean Corpuscular Hemoglobin 32, Mean Corpuscular Hemoglobin Concent 34, Red Cell Distribution Width 13.3, Platelet Count 209, Mean Platelet Volume 11.2H, Neutrophils (%) (Auto) 74, Lymphocytes (%) (Auto) 14, Monocytes (%) (Auto) 13H, Eosinophils (%) (Auto) 0, Basophils (%) (Auto) 0, Neutrophils # (Auto) 5.1, Lymphocytes # (Auto) 0.9L, Monocytes # (Auto) 0.9, Eosinophils # (Auto) 0.0, Basophils # (Auto) 0.0, Sodium Level 133L, Potassium Level 4.7, Chloride Level 93L, Carbon Dioxide Level 29, Anion Gap 11, Blood Urea Nitrogen 48H, Creatinine 0.95, Estimat Glomerular Filtration Rate > 60, BUN/Creatinine Ratio 51, Glucose Level 112H, Calcium Level 9.3, Magnesium Level 2.3 Microbiology 11/11/19 Urine Culture - Preliminary, Resulted Enterococcus faecalis 11/10/19 Influenza Types A,B Antigen ([place]) - Final, Complete 11/10/19 Blood Culture - Preliminary, Resulted No growth Patient resulted labs reviewed. Imaging: Reviewed Imaging Report Discharge Home Medications: Active Scripts Active Reported Albuterol Sulfate 2.5 Mg/0.5 Ml Vial.neb 2.5 Mg INH Q4 -6H PRN WHEN PT IS IN A COPB FLARE HE TAKING A TREAMENT EVERY 4-6 HOURS *3-4 TIMES DAILY) Vitamin B12 (Cyanocobalamin (Vitamin B-12)) 2,500 Mcg Tablet 2,500 Mcg PO DAILY Vitamin B-6 (Pyridoxine HCl) 25 Mg Tablet 25 Mg PO DAILY Vitamin D3 (Cholecalciferol (Vitamin D3)) 50 Mcg Capsule 50 Mcg PO DAILY Mucinex (Guaifenesin) 600 Mg Tab.er.12h 600 Mg PO BID PRN Metronidazole 45 Gm Gel..gram. 1 Applic TD DAILY PRN APPLIES TO THE FOREHEAD Clobetasol Propionate 15 Gm Cream..g. 1 Applic TOP BID MIXES WITH MOSTURIZER (EURICIN OR VANICREAM) AND APPLIES TO THE LEFT ARM AND SPOT ON CHEST TWICE DAILY Miralax (Polyethylene Glycol 3350) 17 Gm Powd.pack 17 Gm PO DAILY Lumigan (Bimatoprost) 2.5 Ml Drops 1 Drop OD HS Chlorhexidine Gluconate 473 Ml Mouthwash 5-10 Ml MT BID RINSE AND SPIT TWICE DAILY Symbicort 160-4.5 Mcg Inhaler (Budesonide/Formoterol Fumarate) 10.2 Gm Hfa.aer.ad 2 Puff IH BID Montelukast Sodium 10 Mg Tablet 10 Mg PO HS Furosemide 40 Mg Tablet 40 Mg PO DAILY Phenobarbital 64.8 Mg Tablet 129.6 Mg PO HS TAKES 2 (64.8MG) TABS TO EQUAL 129.6MG Lisinopril 5 Mg Tablet 5 Mg PO DAILY Metoprolol Succinate 50 Mg Tab.er.24h 50 Mg PO DAILY Digoxin 250 Mcg Tablet 250 Mcg PO DAILY Phenytoin Sodium Extended 100 Mg Capsule 200 Mg PO DAILY TAKES 2 (100MG) CAPS IN THE MORNING AND 3 (100MG) CAPS AT 1800 Phenytoin Sodium Extended 100 Mg Capsule 300 Mg PO 1800 TAKES 2 (100MG) CAPS IN THE MORNING AND 3 (100MG) CAPS AT 1800 Aspirin EC (Aspirin) 81 Mg Tablet.dr 81 Mg PO DAILY Simvastatin 10 Mg Tablet 10 Mg PO HS Levothyroxine Sodium 75 Mcg Tablet 75 Mcg PO DAILY Instructions to patient/family Please see electronic discharge instructions given to patient. Clinical Quality Measures DVT/VTE Risk/Contraindication: Risk Factor Score Per Nursin RFS Level Per Nursing on Admit: 4+=Very High Problem Qualifiers (1) CHF (congestive heart failure): Heart failure type: systolic Heart failure chronicity: acute on chronic Qualified Codes: I50.23 - Acute on chronic systolic (congestive) heart failure (2) Respiratory failure: Chronicity: acute Respiratory failure complication: hypoxia Qualified Codes: J96.01 - Acute respiratory failure with hypoxia TOMMIE GRAJEDA MD Nov 13, 2019 13:02
[2019-11-13 18:00] VITALS: BP 92/58
--- NOTE | 2019-11-15 04:21 | Physician Query Clarification ---
PQ-Uncertain Diagnosis Admission/Discharge Admission Date: Nov 10, 2019 at 05:35 Discharge Date: Nov 13, 2019 at 12:58 The medical record reflects the following clinical scenario: History/Risk Factors: Respiratory distress Clinical Findings: NSTEMI, Acute on chronic CHF, Troponin 0.032 Treatment: IV lasix Question: Is [NSTEMI] a clinically valid diagnosis? [NSTEMI] was documented in the [Pulmonology progress 11/10 of Jignesh Rob] with no further documentation in the medical record. Please document a response in Progress Note or Discharge Summary. 1. Yes, clinically valid, condition resolved. 2. No, condition ruled out. 3. Other, with explanation of clinical findings. 4. Undetermined, no explanation for clinical findings. PHYSICIAN RESPONSE Diagnosis clinically valid: Yes, Conditon resolved Please remember a lack of response to the above will prompt a phone page by CDI/Coding staff. In responding to this query, please exercise your independent professional judgment. The purpose of this communication is to more accurately reflect the complexity of your patients condition. The fact that a question is asked does not imply that any particular answer is desired or expected. Thank you for your timely response to this clarification. Requestors name: [Asqari ] Phone # [[phone] ] THIS PHYSICIAN QUERY FORM IS A PERMANENT PART OF THE MEDICAL RECORD ILDEFONSO PINEDA Nov 15, 2019 04:20 TOMMIE GRAJEDA MD Nov 15, 2019 13:34
== END 2019-11-13 12:58 | disposition swing bed (61) | DRG 189 ==
LOC: ICU 05:35 → 4TH 11-11 11:50
PROVIDERS: ADMIT Family Medicine; ATTEND Internal Medicine
DX: J96.21 Acute and chronic respiratory failure with hypoxia (principal); I11.0 Hypertensive heart disease with heart failure; I50.23 Acute on chronic systolic (congestive) heart failure; I21.4 Non-ST elevation (NSTEMI) myocardial infarction; N17.9 Acute kidney failure, unspecified; I25.5 Ischemic cardiomyopathy; J10.1 Influenza due to other identified influenza virus with other respiratory manifestations; R05 Cough; Z66 Do not resuscitate; I25.10 Atherosclerotic heart disease of native coronary artery without angina pectoris; I69.398 Other sequelae of cerebral infarction; G40.909 Epilepsy, unspecified, not intractable, without status epilepticus; E78.00 Pure hypercholesterolemia, unspecified; E86.9 Volume depletion, unspecified; T50.2X5A Adverse effect of carbonic-anhydrase inhibitors, benzothiadiazides and other diuretics, initial encounter; K21.9 Gastro-esophageal reflux disease without esophagitis; M48.07 Spinal stenosis, lumbosacral region; I70.0 Atherosclerosis of aorta; M19.91 Primary osteoarthritis, unspecified site; F32.9 Major depressive disorder, single episode, unspecified; I65.23 Occlusion and stenosis of bilateral carotid arteries; J30.2 Other seasonal allergic rhinitis; G62.9 Polyneuropathy, unspecified; I48.91 Unspecified atrial fibrillation; J43.9 Emphysema, unspecified; R26.81 Unsteadiness on feet; Z95.1 Presence of aortocoronary bypass graft; Z87.891 Personal history of nicotine dependence; G89.29 Other chronic pain; H91.90 Unspecified hearing loss, unspecified ear
CPT/HCPCS: 36415; 71045; 80048; 80053; 81000; 82805; 83605; 83735; 83880; 84100; 84145; 84484; 85025; 87040; 87077; 87081; 87088; 87186; 87804; 93005; 94640; 94760

== ENCOUNTER 2019-11-13 11:36 | Inpatient (IN) | payer MEDICARE ==
[~2019-11-13] VITALS: Ht 182.9 cm; Wt 84.9 kg
[2019-11-13] MEDS ORDERED: ENOXAPARIN 40 MG/0.4 ML (LOVENOX) SYR SC SCH (13:15)
[2019-11-13] MEDS ORDERED: HYDROcodone/APAP 5 MG/325 MG (LORTAB) TAB PO PRN (13:15)
[2019-11-13] MEDS ORDERED: MELATONIN 3 MG TABLET PO PRN (13:15)
[2019-11-13] MEDS ORDERED: DOCUSATE SODIUM 100 MG (COLACE) CAP PO PRN ×2 (13:15)
[2019-11-13] MEDS ORDERED: ONDANSETRON 4 MG/2 ML (SDV) Z0FRAN IV PRN (13:15)
[2019-11-13] MEDS ORDERED: ANTACID SUSP 30 ML UDC (MYLANTA) PO PRN (13:15)
[2019-11-13] MEDS ORDERED: CATHETER FLUSH 10 ML SYR IV PRN (13:15)
[2019-11-13] MEDS ORDERED: PATIENT MAY USE OWN MED,SINGLE MED PO SCH ×2 (13:15)
[2019-11-13] MEDS ORDERED: PATIENT MAY USE OWN MEDS, ALL MC SCH (13:15)
[2019-11-13] MEDS ORDERED: morphine INJ 10 MG/ML 1ML (SYR OR VIAL) IVP PRN (13:15)
[2019-11-13] MEDS ORDERED: ONDANSETRON 4 MG/2 ML (SDV) Z0FRAN IVP PRN (13:15)
[2019-11-13] MEDS ORDERED: guaiFENesin (MUCINEX) 600 MG TAB PO PRN (13:15)
[2019-11-13] MEDS ORDERED: diphenhydrAMINE 25 MG TAB (BENADRYL) PO PRN ×2 (13:15)
[2019-11-13] MEDS ORDERED: LOPERAMIDE 2 MG (IMODIUM) TABLET PO PRN (13:15)
[2019-11-13] MEDS ORDERED: BISACODYL 10 MG SUPP (DULCOLAX) PR PRN (13:15)
[2019-11-13] MEDS ORDERED: CALCIUM CARBONATE 500 MG (TUMS) TAB.CHEW PO PRN ×2 (13:15)
[2019-11-13] MEDS ORDERED: RT-ALBUTEROL/IPRATROPIUM 3 ML (DUONEB) VIAL INH PRN (13:15)
[2019-11-13] MEDS ORDERED: ACETAMINOPHEN 500 MG TAB (TYLENOL) PO PRN (13:15)
[2019-11-13] MEDS ORDERED: ONDANSETRON 4 MG (ZOFRAN) ORAL DISSOLVE TAB PO PRN ×2 (13:15)
[2019-11-13] MEDS ORDERED: LACTULOSE SYRUP 10GM/15ML (ENULOSE) 30ML UDC PO PRN (13:15)
[2019-11-13] MEDS ORDERED: ACETAMINOPHEN 325 MG TABLET PO PRN (13:15)
[2019-11-13] MEDS ORDERED: FLEET ENEMA ADULT 1 EA BTL PR PRN (13:15)
--- NOTE | 2019-11-13 14:44 | Physical Therapy Daily Note ---
PT Daily Note-Current Subjective No pain patient in good mood Appearance Patient returned to chair with call light and tray in reach. Mental Status Patient Orientation: Person, Place, Eyes Open, Mumbles Attachments: Oxygen (3 L), Manzano Catheter Transfers SCALE: Activities may be completed with or without assistive devices. 4-Tyxzsddwyv-rqymlfw completes the activity by him/herself with no assistance from a helper. 5-Set-up or Clean-up Assistance-helper sets up or cleans up; patient completes activity. [place] assists only prior to or following the activity. 4-Supervision or Touching Assistance-helper provides verbal cues and/or touching/steadying and/or contact guard assistance as patient completes activity. Assistance may be provided throughout the activity or intermittently. 3-Partial/Moderate Assistance-helper does LESS THAN HALF the effort. [place] lif ts, holds or supports trunk or limbs, but provides less than half the effort. 2-Substantial/Maximal Assistance-helper does MORE THAN HALF the effort. [place] lifts or holds trunk or limbs and provides more than half the effort. 0-Xipzfgfzq-vuysdm does ALL the effort. Patient does none of the effort to complete the activity. Or, the assistance of 2 or more helpers is required for the patient to complete the activity. If activity was not attempted, code reason: 7-Patient Refused. 9-Not Applicable-not attempted and the patient did not perform the activity before the current illness, exacerbation or injury. 10-Not Attempted due to Environmental Limitations-(lack of equipment, weather restraints, etc.). 88-Not Attempted due to Medical Conditions or Safety Concerns. Roll Left & Right (QC): 5 Sit to Lying (QC): 4 (SBA) Lying to Sitting/Side of Bed(Q: 4 (SBA) Sit to Stand (QC): 4 (CGA) Chair/Bju-dc-Qdnef Xfer(QC): 4 (CGA) Weight Bearing Right Lower Extremity: Right Weight Bearing/Tolerated Left Lower Extremity: Left Weight Bearing/Tolerated Gait Training Does the Patient Walk?: Yes Distance: 10ft 5x Walk 10 feet (QC): 4 (CGA) Gait Assistive Device: FWW Exercises Seated Therapy Exercises: Ankle pumps, Long arc quads, Hip flexion Seated Reps: 10 (2x slow) Standing: Mini squats Standing Reps: 10 Treatments Ambulation, transfers, strength, balance, energy conservation Assessment Current Status: Good Progress Patient can complete all activities. Patient unable to cough up mucus. Patient requires small breaks. NATALIE KHANNA PT Nov 13, 2019 14:44
[2019-11-13] MEDS: methylPREDNISolone 40 MG/ML (Solu-MEDROL) VIAL IV SCH ×2 (14:47→20:58)
--- NOTE | 2019-11-13 14:55 | Physical Therapy Evaluation ---
PT Evaluation-General Medical Diagnosis Admission Date Nov 13, 2019 at 13:25 Medical Diagnosis: influenza B Onset Date: Nov 10, 2019 Therapy Diagnosis Therapy Diagnosis: Impaired mobility Height/Weight Height (Feet): 6 Height (Inches): 0 Weight (Pounds): 187 Weight (Ounces): 0.0 Precautions Precautions/Isolations: Contact Isolation Weight Bear Status Right Lower Extremity: Right Weight Bearing/Tolerated Left Lower Extremity: Left Weight Bearing/Tolerated Referral Physician: Nimisha Reason for Referral: Evaluation/Treatment Medical History Pertinent Medical History: CABG, COPD, CVA, HTN Reviewed History: Yes Social History Home: Multilevel (Only lives on one floor) Current Living Status: Spouse Entry Into Home: Stairs With Railing (B rail) PT Steps Into Home: 4 lives on only one floor with stairs to the front door (4) and B hand rail Prior Prior Level of Function SCALE: Activities may be completed with or without assistive devices. 9-Cvuqtpolwx-kupsxwp completes the activity by him/herself with no assistance from a helper. 5-Set-up or Clean-up Assistance-helper sets up or cleans up; patient completes activity. [place] assists only prior to or following the activity. 4-Supervision or Touching Assistance-helper provides verbal cues and/or touching/steadying and/or contact guard assistance as patient completes activity. Assistance may be provided throughout the activity or intermittently. 3-Partial/Moderate Assistance-helper does LESS THAN HALF the effort. [place] lifts, holds or supports trunk or limbs, but provides less than half the effort. 2-Substantial/Maximal Assistance-helper does MORE THAN HALF the effort. [place] lifts or holds trunk or limbs and provides more than half the effort. 1-Yizuiqeem-nilcxv does ALL the effort. Patient does none of the effort to complete the activity. Or, the assistance of 2 or more helpers is required for the patient to complete the activity. If activity was not attempted, code reason: 7-Patient Refused. 9-Not Applicable-not attempted and the patient did not perform the activity before the current illness, exacerbation or injury. 10-Not Attempted due to Environmental Limitations-(lack of equipment, weather restraints, etc.). 88-Not Attempted due to Medical Conditions or Safety Concerns. Bed Mobility: 4 Transfers (B,C,W/C): 4 Gait: 4 Indoor Mobility (Ambulation): Needed Some Help Stairs: Needed Some Help Prior Devices Use: Walker PT Evaluation-Current Subjective No pain Pt/Family Goals return home Objective Patient Orientation: Person, Place, Eyes Open, Mumbles Attachments: Oxygen (3 L), Manzano Catheter ROM/Strength Strength Lower Extremities Gross 4/5 strength Sensory Vision: Wears Glasses Hearing: Impaired Hand Dominance: Right Sensation Right Lower Extremit: Intact Sensation Left Lower Extremity: Intact Transfers Roll Left to Right (QC): 5 Sit to Lying (QC): 4 (SBA) Lying to Sitting/Side of Bed(Q: 4 (SBA) Sit to Stand (QC): 4 (CGA) Chair/Kme-mk-Xqlgq Xfer(QC): 4 (CGA) Gait Does the Patient Walk?: Yes Anticipated Mode of Locomotion: Walk Walk 10 feet (QC): 4 Walk 50 ft with 2 Turns(QC): 4 (CGA) Distance: 50' Gait Assistive Device: Walker Platform Comments/Gait Description L platform Balance Sitting Static: Normal Sitting Dynamic: Good Standing Static: Fair Standing Dynamic: Fair Treatment transfers, gait, functional mobility, strength, BLE seated exercises x20 (AP, LAQ, hip flexion) Assessment/Needs able to ambulate with small breaks of 30 sec. Rehab Potential: Fair PT Planning Director Goals Prison Goals PT Planning Director Goals Time Frame: Nov 20, 2019 Roll Left & Right (QC): 5 Sit to Lying (QC): 5 Lying-Sitting on Side/Bed(QC): 5 Sit to Stand (QC): 5 Chair/Rin-rg-Kucsc Xfer(QC): 5 Walk 10 feet (QC): 5 Walk 50ft with 2 Turns (QC): 5 PT Plan Problem List Problem List: Activity Tolerance, Functional Strength, Safety, Balance, Gait, Transfer, Bed Mobility, ROM Treatment/Plan Treatment Plan: Continue Plan of Care Treatment Plan: Bed Mobility, Education, Functional Activity Drew, Functional Strength, Gait, Safety, Therapeutic Exercise, Transfers Treatment Duration: Nov 20, 2019 Frequency: 6 times per week Estimated Hrs Per Day: .25 hour per day Patient and/or Family Agrees t: Yes Safety Risks/Education Patient Education: Gait Training, Transfer Techniques, Disease Process, Safety Issues Teaching Recipient: Patient Teaching Methods: Demonstration, Discussion, Audiovisual Response to Teaching: Verbalize Understanding, Return Demonstration, Reinforcement Needed Discharge Recommendations Plan Patient will perform bed mobility and transfer training, balance and endurance training, functional strengthening, stair training, gait training, and education, to improve functional mobility and independence at home. Therapy Discharge Recommendati: Home & Family Time/GCodes Time In: 1350 Time Out: 1420 Total Billed Treatment Time: 30 Total Billed Treatment visit 1 EVM 15 FA 15 NATALIE KHANNA PT Nov 13, 2019 14:55
--- NOTE | 2019-11-13 15:06 | ST Dysphagia Evaluation ---
Speech Evaluation-General Medical Diagnosis Respiratory failure Therapy Diagnosis Therapy Diagnosis: Oropharyngeal Dysphagia Precautions Precautions: Aspiration Referral Referring Physician: Dr. Bansal Medical History Pertinent Medical History: CABG, COPD, CVA, HTN Reviewed History: Yes Social History Current Living Status: Spouse Speech PLF/Current-Dysphagia Prior Level of Function Patient lived at home and ate what he felt was safe for himself to eat. Subjective Patient was alert and stated he was eating adequately on his current recommended diet. Cognitive Status Patient Orientation: Person, Place, Time, Situation Oral Motor Skills Dentition: Edentalous Denture Type: Full- Upper & Lower Current Food Consistancy: Mechanical Soft, Thin Liquids Ability to Follow Directions: Good Oral Expression Ability: No Impairment Voice Voice Phonatory-Based Quality: Breathy, Harsh, Hoarse Voice Pitch: Normal Voice Loudness: Mildly Soft/Quiet Face Facial Symmetry: Symmetrical Oral-Facial Assessment Oral-Facial Dentition: Normal Labial Seal Description: Normal Smile: Normal Lingual Protrusion: Normal Lingual ROM: Normal Lingual Strength: Normal Volitional Dry Swallow: Yes Voluntary Cough: Yes Can Clear Throat Volitionally: Yes Dysphagia Evaluation Consistencies Presented: Thin Liquid, Mechanical Soft, Pureed Oral phase is within normal range of function for all consistencies presented. Pharyngeal phase is within normal range of function for all consistencies presented. Dietary Recommendations: Mechanical Soft Liquid Recommendations: Thin Swallowing Precautions: Alternate Liquids/Solids, Decreased Bolus 1/2 Tsp, Decreased Rate of Oral Intake, Liquids from Straw, Small Bites and Sips, Sitting Upright 90 Degrees, Sitting 90 Degrees 30 Post Intake Dysphagia Evaluation Summary Patient is a pleasant 79 year old male who has been seen by the clinician for dysphagia while on the acute side. Patient is in a swingbed which required a follow up on dysphagia services. A Bedside Dysphagia Evaluation was completed with patient being on the same diet level of Dysphagia II diet level with thin liquids. Patient will continue to receive skilled ST services. Barriers to Learning Patient's medical status Speech Short Term Goals Short Term Goals Short Term Goals 1) Patient will tolerate least restrictive diet level without s/s of aspiration at 90% or greater. 2) Patient/caregiver will utilize compensatory strategies as trained for safe oral intake at 90% or greater. Speech Mcc Goals Mcc Goals Patient will maintain adequate nutrition/hydration via safe effective swallow. Speech-Plan Patient/Family Goals Patient/Family Goals: Patient plans on returning to his home upon hospital discharge. Treatment Plan Speech Therapy Treatment Plan: Continue Plan of Care Treatment Duration: Nov 20, 2019 Frequency: 4 times per week Estimated Hrs Per Day: .5 hour per day Rehab Potential: Guarded Barriers to Learning: Patient's medical status Pt/Family Agrees to Plan: Yes Safety Risks/Education Teaching Recipient: Patient Teaching Methods: Discussion Response to Teaching: Verbalize Understanding Education Topics Provided: Safety with oral intake Time Speech Therapy Time In: 15:00 Speech Therapy Time Out: 15:15 Total Billed Time: 15 Billed Treatment Time VeronicaPRASANTH BETHANIA ST Nov 13, 2019 15:06
--- NOTE | 2019-11-13 15:12 | Occupational Therapy Eval ---
OT Evaluation-General/PLF Medical Diagnosis Admission Date Nov 13, 2019 at 13:25 Medical Diagnosis: influenza Onset Date: Nov 13, 2019 Therapy Diagnosis Therapy Diagnosis: impaired ADLs/functional mobility/weakness Height/Weight Height (Feet): 6 Height (Inches): 0 Weight (Pounds): 187 Weight (Ounces): 0.0 Referral Physician: Nimisha Referral Reason: Evaluation/Treatment Medical History Pertinent Medical History: CABG, COPD, CVA, HTN Additional Medical History high cholesterol, seizure disorder Current History Pt admitted acutely on 11/02/2019 for CHF, transferring to ARU on 11/06/2019. He then was admitted to the ICU on 11/10/2019 due to increased respiratory distress and pt then tested positive for influenza B. He transferred do acute floor, then transferred to [facility]. Reviewed History: Yes Social History Home: Single Level Current Living Status: Spouse ADL-Prior Level of Function SCALE: Activities may be completed with or without assistive devices. 2-Ybdtalnlyk-larzvjy completes the activity by him/herself with no assistance from a helper. 5-Set-up or Clean-up Assistance-helper sets up or cleans up; patient completes activity. [place] assists only prior to or following the activity. 4-Supervision or Touching Assistance-helper provides verbal cues and/or touching/steadying and/or contact guard assistance as patient completes activity. Assistance may be provided throughout the activity or intermittently. 3-Partial/Moderate Assistance-helper does LESS THAN HALF the effort. [place]don lifts, holds or supports trunk or limbs, but provides less than half the effort. 2-Substantial/Maximal Assistance-helper does MORE THAN HALF the effort. [place] lifts or holds trunk or limbs and provides more than half the effort. 2-Rvwwiammj-dokwlj does ALL the effort. Patient does none of the effort to complete the activity. Or, the assistance of 2 or more helpers is required for the patient to complete the activity. If activity was not attempted, code reason: 7-Patient Refused. 9-Not Applicable-not attempted and the patient did not perform the activity before the current illness, exacerbation or injury. 10-Not Attempted due to Environmental Limitations-(lack of equipment, weather restraints, etc.). 88-Not Attempted due to Medical Conditions or Safety Concerns. ADL PLOF Comments Pt reports mod I with ADLs, requires assist in/out of tub. He has a tub with a built in bench for showering. He uses a FWW with a walker basket for functional mobility. Self Care: Needed Some Help Functional Cognition: Independent DME/Equipment: Bath Bench, Tub DME/Equipment Comments FWW with walker basket Drive Self: Yes OT Current Status Subjective Pt seated upright in recliner agreeable to OT evaluation. He did not report any pain. Mental Status/Objective Patient Orientation: Person, Place, M[place] Attachments: Manzano Catheter, Oxygen (3L) Current Glasses/Contacts: Yes Hearing Aids: No Dentures/Partials: Yes Hand Dominance: Right Upper Extremity ROM RUE WFL, LUE active shoulder flexion to approx 90 degrees with full PROM Upper Extremity Coordination WFL RUE, decreased LUE coordination Upper Extremity Strength WFL RUE, decreased LUE ADL-Treatment Eating (QC): 6 (per pt report) Oral Hygiene (QC): 7 (Pt declined task on this date) Shower/Bathe Self (QC): 3 (Assistance with RUE & back. Pt able to wash all other parts. Min A standing balance as pt washed buttocks.) Upper Body Dressing (QC): 3 (Pt able to don/doff gown, requirng assistance with tying) Lower Body Dressing (QC): 7 (pt not wearing brief, declined wearing one this date. ) On/Off Footwear (QC): 3 (pt able to don/doff socks, requiring slight assist with right foot. OT dependently donned TEDhose) Toileting Hygiene (QC): 3 (Pt required min A with standing balance during task at W.) pt required increased time with all ADLs due to decreased functional use of his left UE Other Treatments Pt seated in recliner stating he needed to go to the bathroom, pt transferred to [facility] where he completed toileting, dressing, and sponge bath. Pt then returned to his recliner. Post OT session, pt seated in recliner, call light in reach and all needs met. Education OT Patient Education: Correct positioning, Energy conservation, Modified ADL techniques, Progress toward Goal/Update tx plan, Purpose of tx/functional activities, Safety issues, Transfer techniques Teaching Recipient: Patient Teaching Methods: Discussion Response to Teaching: Verbalize Understanding OT Intermediate Goals Intermediate Goals Time Frame: Nov 27, 2019 Eating (QC): 6 Oral Hygiene (QC): 6 Toileting Hygiene (QC): 4 Shower/Bathe Self (QC): 4 Upper Body Dressing (QC): 6 Lower Body Dressing (QC): 4 On/Off Footwear (QC): 6 1=Demonstrate adherence to instructed precautions during ADL tasks. 2=Patient will verbalize/demonstrate understanding of assistive devices/mo difications for ADL. 3=Patient will improve strength/tolerance for activity to enable patient to perform ADL's. OT Education/Plan Problem List/Assessment Assessment: Decreased Activ Tolerance, Decreased UE Strength, Impaired Funct Balance, Impaired I ADL's, Impaired Self-Care Skills, Restricted Funct UE ROM Discharge Recommendations Plan/Recommendations: Continue POC Treatment Plan/Plan of Care Treatment,Training & Education: Yes Patient would benefit from OT for education, treatment and training to promote independence in ADL's, mobility, safety and/or upper extremity function for ADL's. Plan of Care: ADL Retraining, Functional Mobility, UE Funct Exercise/Act Treatment Duration: Nov 27, 2019 Frequency: 5 times per week Estimated Hrs Per Day: .25 hour per day Rehab Potential: Guarded Time/GCodes Start Time: 14:20 Stop Time: 14:45 Total Time Billed (hr/min): 25 Billed Treatment Time 1, EVM (10'), ADL (15') STEWART SHEETS OT Nov 13, 2019 15:12
[2019-11-13] MEDS: RT-ALBUTEROL/IPRATROPIUM 3 ML (DUONEB) VIAL INH SCH ×3 (16:21→22:57)
[2019-11-13 18:00] VITALS: BP 92/58
[2019-11-13] MEDS: PHENYTOIN 100 MG (DILANTIN) CAP PO SCH (19:12)
[2019-11-13] MEDS: SYMBICORT 160/4.5 INHALER IH SCH (19:28)
[2019-11-13] MEDS: SIMvastatin 10 MG (ZOCOR) TAB PO SCH (20:59)
[2019-11-13] MEDS: MONTELUKAST 10 MG (SINGULAIR) TAB PO SCH (20:59)
[2019-11-13] MEDS: OSELTAMIVIR 75 MG (TAMIFLU) CAPSULE PO SCH (20:59)
[2019-11-13] MEDS: ENOXAPARIN 40 MG/0.4 ML (LOVENOX) SYR SC SCH (20:59)
[2019-11-13] MEDS: SENNA W/DOCUSATE (SENOKOT S) TABLET PO SCH (20:59)
[2019-11-13] MEDS: PHENobarbital 64.8 MG (1 GRAIN) TAb PO SCH (20:59)
[2019-11-13] MEDS ORDERED: MONTELUKAST 10 MG (SINGULAIR) TAB PO SCH (21:00)
[2019-11-13] MEDS ORDERED: polyethylene glycoL POWDER 17 GM (MIRALAX) PACK PO SCH (21:00)
[2019-11-13] MEDS ORDERED: SENNA W/DOCUSATE (SENOKOT S) TABLET PO SCH (21:00)
[2019-11-13] MEDS ORDERED: SYMBICORT 160/4.5 MCG INHALER 6 GM (NON-FORMULARY) IH SCH (21:00)
[2019-11-13] MEDS ORDERED: PHENobarbital 64.8 MG (1 GRAIN) TAb PO SCH (21:00)
[2019-11-13] MEDS ORDERED: NON-FORMULARY MEDICATION 1 EA EA (Clobetasol Propionate 1 APPLIC) TOP SCH (21:00)
[2019-11-13] MEDS ORDERED: SIMvastatin 10 MG (ZOCOR) TAB PO SCH (21:00)
[2019-11-13] MEDS ORDERED: CHLORHEXIDINE 0.12% SOLN 15 ML (PERIDEX) UDC PO SCH (21:00)
[2019-11-13] MEDS: CLOBETASOL 0.05% CREAM TOP SCH (21:08)
[2019-11-13] MEDS: CHLORHEXIDINE 0.12% SOLN 15 ML (PERIDEX) UDC PO SCH (22:23)
[2019-11-14 00:07] VITALS: BP 137/71
[2019-11-14] MEDS: RT-ALBUTEROL/IPRATROPIUM 3 ML (DUONEB) VIAL INH SCH ×5 (02:27→22:12)
[2019-11-14] MEDS: methylPREDNISolone 40 MG/ML (Solu-MEDROL) VIAL IV SCH ×4 (03:21→21:51)
[2019-11-14 05:28] VITALS: BP 136/73
[2019-11-14] MEDS: MAGNESIUM 1 GM/100 ML IVPB 100 ML IV SCH (06:10)
[2019-11-14] MEDS: POTASSIUM CL 10MEQ/50ML IVPB 50 ML IV SCH (06:10)
[2019-11-14] MEDS: KCL 20 MEQ TAB (K-DUR) PO SCH (06:10)
[2019-11-14] MEDS: LEVOTHYROXINE 75 MCG (LEVOTHROID) TABLET PO SCH (06:15)
[2019-11-14] MEDS ORDERED: predniSONE 20 MG TAB PO SCH (07:00)
[2019-11-14] MEDS: lisINopril 5 MG (PRINIVIL) TABLET PO SCH (08:42)
[2019-11-14] MEDS: SENNA W/DOCUSATE (SENOKOT S) TABLET PO SCH ×2 (08:42→21:52)
[2019-11-14] MEDS: meTOproloL SUCCINATE 50 MG (TOPROL XL) TAB PO SCH (08:43)
[2019-11-14] MEDS: DIGOXIN 0.25 MG (LANOXIN) TAB PO SCH (08:43)
[2019-11-14] MEDS: FUROSEMIDE 40 MG (LASIX) TAB PO SCH (08:43)
[2019-11-14] MEDS: OSELTAMIVIR 75 MG (TAMIFLU) CAPSULE PO SCH ×2 (08:43→21:51)
[2019-11-14] MEDS: SYMBICORT 160/4.5 INHALER IH SCH ×2 (08:45→19:01)
[2019-11-14] MEDS: CHLORHEXIDINE 0.12% SOLN 15 ML (PERIDEX) UDC PO SCH ×2 (08:47→21:52)
[2019-11-14] MEDS: PHENYTOIN 100 MG (DILANTIN) CAP PO SCH ×2 (08:47→18:40)
[2019-11-14] MEDS: CLOBETASOL 0.05% CREAM TOP SCH ×2 (08:48→21:53)
[2019-11-14] MEDS ORDERED: DIGOXIN 0.25 MG (LANOXIN) TAB PO SCH (09:00)
[2019-11-14] MEDS ORDERED: lisINopril 5 MG (PRINIVIL) TABLET PO SCH (09:00)
[2019-11-14] MEDS ORDERED: FUROSEMIDE 40 MG (LASIX) TAB PO SCH (09:00)
[2019-11-14] MEDS ORDERED: ASPIRIN E.C. 81 MG (ECOTRIN) TAB PO SCH (09:00)
[2019-11-14] MEDS ORDERED: meTOproloL SUCCINATE 50 MG (TOPROL XL) TAB PO SCH (09:00)
[2019-11-14] MEDS ORDERED: LEVOTHYROXINE 75 MCG (LEVOTHROID) TABLET PO SCH (09:00)
--- NOTE | 2019-11-14 10:54 | Physical Therapy Daily Note ---
PT Daily Note-Current Subjective Pt. up in chair, states he hasn't slept at all. He agrees to PT. Mental Status Attachments: Oxygen, Manzano Catheter Transfers SCALE: Activities may be completed with or without assistive devices. 0-Xviqtolfiz-hobnczj completes the activity by him/herself with no assistance from a helper. 5-Set-up or Clean-up Assistance-helper sets up or cleans up; patient completes activity. [place]land assists only prior to or following the activity. 4-Supervision or Touching Assistance-helper provides verbal cues and/or touching/steadying and/or contact guard assistance as patient completes activity. Assistance may be provided throughout the activity or intermittently. 3-Partial/Moderate Assistance-helper does LESS THAN HALF the effort. Garland lifts, holds or supports trunk or limbs, but provides less than half the effort. 2-Substantial/Maximal Assistance-helper does MORE THAN HALF the effort. [place] lifts or holds trunk or limbs and provides more than half the effort. 2-Msvrbabju-zjiqyr does ALL the effort. Patient does none of the effort to complete the activity. Or, the assistance of 2 or more helpers is required for the patient to complete the activity. If activity was not attempted, code reason: 7-Patient Refused. 9-Not Applicable-not attempted and the patient did not perform the activity before the current illness, exacerbation or injury. 10-Not Attempted due to Environmental Limitations-(lack of equipment, weather restraints, etc.). 88-Not Attempted due to Medical Conditions or Safety Concerns. Sit to Stand (QC): 4 Weight Bearing Right Lower Extremity: Right Weight Bearing/Tolerated Left Lower Extremity: Left Weight Bearing/Tolerated Gait Training Does the Patient Walk?: Yes Distance: 60 Walk 10 feet (QC): 4 Gait Persons Needed: 1 Gait Assistive Device: FWW Exercises Seated Therapy Exercises: Ankle pumps, Sit to stand (5 reps), Long arc quads, Hip flexion Seated Reps: 20 Treatments LE exercises, short distance gait Assessment Current Status: Good Progress Pt. does well with exercises and gait in room. He does have difficulty with turns but able to complete with CGA only. Pt. returned to bedside chair post session with call light and all needs met. PT Store Team Member Goals Store Team Member Goals PT Fpc Goals Time Frame: Nov 20, 2019 Roll Left & Right (QC): 5 Sit to Lying (QC): 5 Lying-Sitting on Side/Bed(QC): 5 Sit to Stand (QC): 5 Chair/Wvs-ql-Rfrjs Xfer(QC): 5 Walk 10 feet (QC): 5 Walk 50ft with 2 Turns (QC): 5 PT Plan Treatment/Plan Treatment Plan: Continue Plan of Care Treatment Plan: Bed Mobility, Education, Functional Activity Drew, Functional Strength, Gait, Safety, Therapeutic Exercise, Transfers Treatment Duration: Nov 20, 2019 Frequency: 6 times per week Estimated Hrs Per Day: .25 hour per day Patient and/or Family Agrees t: Yes Time/GCodes Time In: 1013 Time Out: 1037 Total Billed Treatment Time: 24 Total Billed Treatment 1, Ex 15', GT 9' DIANE HORVATH PT Nov 14, 2019 10:54
--- NOTE | 2019-11-14 17:21 | NUR ---
RECEIVED PHONE CALL FROM [facility] ABOUT URINE CULTURE GROWTH AND SENSITIVITY THAT WAS REPORTED ON 11/11/19 PER PATIENTS NON-SWB CHART. DR. GRAJEDA NOTIFIED OF CALL AND RESULTS. NO ORDERS RECEIVED. WOULD LIKE TO JUST MONITOR AT THIS TIME DUE TO LACK OF SYMPTOMS.
[2019-11-14 17:32] VITALS: BP 138/65
[2019-11-14] MEDS: PHENobarbital 64.8 MG (1 GRAIN) TAb PO SCH (21:51)
[2019-11-14] MEDS: MELATONIN 3 MG TABLET PO PRN (21:51)
[2019-11-14] MEDS: SIMvastatin 10 MG (ZOCOR) TAB PO SCH (21:51)
[2019-11-14] MEDS: MONTELUKAST 10 MG (SINGULAIR) TAB PO SCH (21:51)
[2019-11-14] MEDS: guaiFENesin (MUCINEX) 600 MG TAB PO PRN (21:51)
[2019-11-14] MEDS: ALPRAZolam 0.25 MG (XANAX) TAB PO PRN (21:51)
[2019-11-14] MEDS: ENOXAPARIN 40 MG/0.4 ML (LOVENOX) SYR SC SCH (21:52)
[2019-11-15] MEDS: RT-ALBUTEROL/IPRATROPIUM 3 ML (DUONEB) VIAL INH SCH ×6 (03:23→22:08)
[2019-11-15] MEDS: methylPREDNISolone 40 MG/ML (Solu-MEDROL) VIAL IV SCH ×4 (03:40→21:03)
[2019-11-15] MEDS: MAGNESIUM 1 GM/100 ML IVPB 100 ML IV SCH (05:11)
[2019-11-15] MEDS: POTASSIUM CL 10MEQ/50ML IVPB 50 ML IV SCH (05:11)
[2019-11-15] MEDS: KCL 20 MEQ TAB (K-DUR) PO SCH (05:11)
[2019-11-15] MEDS: LEVOTHYROXINE 75 MCG (LEVOTHROID) TABLET PO SCH (05:35)
[2019-11-15 05:36] VITALS: BP 144/67
[2019-11-15] MEDS: SYMBICORT 160/4.5 INHALER IH SCH ×2 (06:42→19:22)
[2019-11-15] MEDS: CHLORHEXIDINE 0.12% SOLN 15 ML (PERIDEX) UDC PO SCH ×2 (09:19→21:00)
[2019-11-15] MEDS: DIGOXIN 0.25 MG (LANOXIN) TAB PO SCH (09:20)
[2019-11-15] MEDS: meTOproloL SUCCINATE 50 MG (TOPROL XL) TAB PO SCH (09:20)
[2019-11-15] MEDS: FUROSEMIDE 40 MG (LASIX) TAB PO SCH (09:20)
[2019-11-15] MEDS: lisINopril 5 MG (PRINIVIL) TABLET PO SCH (09:20)
[2019-11-15] MEDS: SENNA W/DOCUSATE (SENOKOT S) TABLET PO SCH ×2 (09:20→20:59)
[2019-11-15] MEDS: CLOBETASOL 0.05% CREAM TOP SCH ×2 (09:22→21:02)
[2019-11-15] MEDS: PHENYTOIN 100 MG (DILANTIN) CAP PO SCH ×2 (09:23→17:26)
[2019-11-15 16:55] VITALS: BP 172/93
[2019-11-15 17:28] VITALS: BP 145/68
[2019-11-15] MEDS: MONTELUKAST 10 MG (SINGULAIR) TAB PO SCH (20:59)
[2019-11-15] MEDS: SIMvastatin 10 MG (ZOCOR) TAB PO SCH (20:59)
[2019-11-15] MEDS: PHENobarbital 64.8 MG (1 GRAIN) TAb PO SCH (20:59)
[2019-11-15] MEDS: ENOXAPARIN 40 MG/0.4 ML (LOVENOX) SYR SC SCH (21:01)
[2019-11-15] MEDS: MELATONIN 3 MG TABLET PO PRN (22:50)
[2019-11-15] MEDS: ALPRAZolam 0.25 MG (XANAX) TAB PO PRN (22:51)
[2019-11-15] MEDS: guaiFENesin (MUCINEX) 600 MG TAB PO PRN (22:51)
[2019-11-16] MEDS: RT-ALBUTEROL/IPRATROPIUM 3 ML (DUONEB) VIAL INH SCH ×3 (02:23→10:34)
[2019-11-16] MEDS: methylPREDNISolone 40 MG/ML (Solu-MEDROL) VIAL IV SCH ×2 (03:15→08:02)
[2019-11-16 03:19] VITALS: BP 136/65
[2019-11-16] MEDS: POTASSIUM CL 10MEQ/50ML IVPB 50 ML IV SCH (06:24)
[2019-11-16] MEDS: KCL 20 MEQ TAB (K-DUR) PO SCH (06:25)
[2019-11-16] MEDS: MAGNESIUM 1 GM/100 ML IVPB 100 ML IV SCH (06:25)
[2019-11-16] MEDS: LEVOTHYROXINE 75 MCG (LEVOTHROID) TABLET PO SCH (06:34)
[2019-11-16] MEDS: SYMBICORT 160/4.5 INHALER IH SCH (07:15)
--- NOTE | 2019-11-16 07:53 | Speech Therapy Daily Note ---
Speech Daily Progress Note Subjective Date Seen by Provider: Nov 16, 2019 Time Seen by Provider: 00:15 Patient had just received his breakfast when I entered his room. Patient does not like the ground meats and has been upgraded to regular diet. Objective Patient is being upgraded to a regular diet level today with thin liquids. Patient is utilizing compensatory strategies for safe oral intake. Assessment Assessment Current Status: Good Progress Treatment Plan Continue Plan of Care Speech Short Term Goals Short Term Goals Short Term Goals 1) Patient will tolerate least restrictive diet level without s/s of aspiration at 90% or greater. 2) Patient/caregiver will utilize compensatory strategies as trained for safe oral intake at 90% or greater. Speech Detention Goals Detention Goals Patient will maintain adequate nutrition/hydration via safe effective swallow. Speech-Plan Patient/Family Goals Patient/Family Goals: Patient plans to return home where he lives with his . Treatment Plan Speech Therapy Treatment Plan: Continue Plan of Care Patient's nurse Elodia will be changing his diet orders to regular with thin. Treatment Duration: Nov 20, 2019 Frequency: 4 times per week Estimated Hrs Per Day: .5 hour per day Rehab Potential: Guarded Barriers to Learning: Patient's medical status Pt/Family Agrees to Plan: Yes Safety Risks/Education Teaching Recipient: Patient Teaching Methods: Demonstration, Discussion Response to Teaching: Verbalize Understanding, Return Demonstration Education Topics Provided: Continued safty with oral intake, diet level change Time Speech Therapy Time In: 07:30 Speech Therapy Time Out: 07:45 Total Billed Time: 15 Billed Treatment Time 1, ANTHONY HILLARY Tenorio Nov 16, 2019 07:53
[2019-11-16] MEDS: meTOproloL SUCCINATE 50 MG (TOPROL XL) TAB PO SCH (08:01)
[2019-11-16] MEDS: SENNA W/DOCUSATE (SENOKOT S) TABLET PO SCH (08:02)
[2019-11-16] MEDS: DIGOXIN 0.25 MG (LANOXIN) TAB PO SCH (08:02)
[2019-11-16] MEDS: FUROSEMIDE 40 MG (LASIX) TAB PO SCH (08:02)
[2019-11-16] MEDS: lisINopril 5 MG (PRINIVIL) TABLET PO SCH (08:02)
[2019-11-16] MEDS: PHENYTOIN 100 MG (DILANTIN) CAP PO SCH (08:03)
[2019-11-16] MEDS: CLOBETASOL 0.05% CREAM TOP SCH (08:04)
[2019-11-16] MEDS: CHLORHEXIDINE 0.12% SOLN 15 ML (PERIDEX) UDC PO SCH (08:05)
--- NOTE | 2019-11-16 09:43 | Physical Therapy Daily Note ---
PT Daily Note-Current Subjective No pain reported good motivation. Appearance Patient returned to recliner with call light and tray in reach. Mental Status Patient Orientation: Person, Place, Eyes Open Attachments: Oxygen (2L) Transfers SCALE: Activities may be completed with or without assistive devices. 5-Qbuzbvbarx-joraout completes the activity by him/herself with no assistance from a helper. 5-Set-up or Clean-up Assistance-helper sets up or cleans up; patient completes activity. [place] assists only prior to or following the activity. 4-Supervision or Touching Assistance-helper provides verbal cues and/or touching/steadying and/or contact guard assistance as patient completes activity. Assistance may be provided throughout the activity or intermittently. 3-Partial/Moderate Assistance-helper does LESS THAN HALF the effort. [place] lifts, holds or supports trunk or limbs, but provides less than half the effort. 2-Substantial/Maximal Assistance-helper does MORE THAN HALF the effort. [place] lifts or holds trunk or limbs and provides more than half the effort. 9-Alrotkqrb-bdkpai does ALL the effort. Patient does none of the effort to complete the activity. Or, the assistance of 2 or more helpers is required for the patient to complete the activity. If activity was not attempted, code reason: 7-Patient Refused. 9-Not Applicable-not attempted and the patient did not perform the activity before the current illness, exacerbation or injury. 10-Not Attempted due to Environmental Limitations-(lack of equipment, weather restraints, etc.). 88-Not Attempted due to Medical Conditions or Safety Concerns. Sit to Stand (QC): 4 (CGA) Chair/Uyh-qr-Szers Xfer(QC): 4 (CGA) Weight Bearing Right Lower Extremity: Right Weight Bearing/Tolerated Left Lower Extremity: Left Weight Bearing/Tolerated Gait Training Distance: 200 ft Walk 10 feet (QC): 4 (CGA) Walk 50 ft with 2 Turns(QC): 4 (CGA) Walk 150 ft (QC): 4 (CGA) Gait Assistive Device: Walker Platform Patient ambulates with forward posture with Platform RW with L platform. Patient is able to ambulate without rest at average pace. Exercises Seated Therapy Exercises: Ankle pumps, Long arc quads, Kicking activity Seated Reps: 10 (2x) Assessment Current Status: Good Progress Patient is making good progress and coughs less during session. He is aware of what is going on with therapy and his precautions have been lifted. Patient completes all activities ask of him for therapy. PT Short Term Goals Short Term Goals Time Frame: Nov 16, 2019 PT Motor Vehicles Supervisor Goals Motor Vehicles Supervisor Goals PT Mcc Goals Time Frame: Nov 20, 2019 Roll Left & Right (QC): 5 Sit to Lying (QC): 5 Lying-Sitting on Side/Bed(QC): 5 Sit to Stand (QC): 5 Chair/Htb-wv-Kscjm Xfer(QC): 5 Walk 10 feet (QC): 5 Walk 50ft with 2 Turns (QC): 5 PT Plan Problem List Problem List: Activity Tolerance, Functional Strength, Safety, Balance, Gait, Transfer, Bed Mobility Treatment/Plan Treatment Plan: Continue Plan of Care Treatment Plan: Bed Mobility, Education, Functional Activity Drew, Functional Strength, Gait, Safety, Therapeutic Exercise, Transfers Treatment Duration: Nov 20, 2019 Frequency: 6 times per week Estimated Hrs Per Day: .25 hour per day Patient and/or Family Agrees t: Yes Safety Risks/Education Patient Education: Gait Training, Transfer Techniques, Disease Process, Safety Issues Teaching Recipient: Patient Teaching Methods: Demonstration, Discussion Response to Teaching: Verbalize Understanding, Return Demonstration, Rein forcement Needed Time/GCodes Time In: 904 Time Out: 919 Total Billed Treatment Time: 15 Total Billed Treatment 1 visit FA 15' VITOR MADRIGAL PT Nov 16, 2019 09:43
--- NOTE | 2019-11-16 10:13 | NUR ---
CM DISCHARGE PLANNING: Patient is doing much better with his respiratory status. He continues to need therapies to rehabilitate to go home. Patient et indicated that he would like to go to [facility] if it was determined he no longer needed to be at the hospital but continued to need rehabilitation. Dr. Kang indicated that he would like to possibly dismiss the patient today. Referral packet sent to [facility] attn: Hanh. Hanh indicates that they have male private rooms available.
--- NOTE | 2019-11-16 11:18 | NUR ---
"RD ASSESSMENT PMHx: COPD; emphysema; CAD; hypercholesterolemia; HTN; seizure; stroke; CA(skin) PT INTERACTION: Pt was awake and pleasant during nutrition follow-up. Pt states he has been eating well since last assessment. Note avg PO intake >75% x2d, per chart review. Pt states no issues with n/v/c/d since last assessment. Note last BM was 11/13, and pt currently on bowel regimen of senna BID, per chart review. ABNORMAL NUTRITION-RELATED LAB VALUES Taken 11/13/2019 LOW: Na 133; Cl 93 HIGH: BUN 48; glu 112; AST 72; ALT 112 Est. kcal needs: 5413-5940 kcal | 25-30 kcal/kg Est. Pro needs: 68-85 g Pro | 0.8-1.0 g Pro/kg PES STATEMENT: Given PO intake, no nutrition diagnosis at this time (NO-1.1) Continue with current diet order of Regular diet. Will continue to follow and reassess as pt needs, intake, and status change. INTERVENTION: MONITOR/EVALUATE: PO Intake; Plan of Care; Hydration Status; Weight Status; Lab Values Colin Ken, MS, RD, LD"
--- NOTE | 2019-11-16 11:21 | Discharge Summary ---
Discharge Summary Reconcile Patient Problems Problems Reviewed?: Yes Hospital Course Hospital Course Date of Admission: Nov 13, 2019 at 13:25 Admission Diagnosis : Acute hypoxic respiratory failure Family Physician/Provider: Brendon Trejo MD Date of Discharge: 11/16/19 Discharge Diagnosis: Acute hypoxic respiratory failure due to influenza Hospital Course: Nirav Reddy is an 79-year-old male who was admitted with acute hypoxic respiratory failure due to influenza. He was initially requiring increased levels of oxygen. This improved throughout his hospitalization. His oxygen requirement returning to his baseline. He completed a course of Tamiflu. He was given a course of steroids and was given a taper on discharge. He was plac ed on swing bed while his oxygen was weaned and he has undergoing therapies. He was discharged to [facility] for ongoing therapies. Labs and Pending Lab Test: Home Meds Active Reported Albuterol Sulfate 2.5 Mg/0.5 Ml Vial.neb 2.5 Mg INH Q4 -6H PRN WHEN PT IS IN A COPB FLARE HE TAKING A TREAMENT EVERY 4-6 HOURS *3-4 TIMES DAILY) Vitamin B12 (Cyanocobalamin (Vitamin B-12)) 2,500 Mcg Tablet 2,500 Mcg PO DAILY Vitamin B-6 (Pyridoxine HCl) 25 Mg Tablet 25 Mg PO DAILY Vitamin D3 (Cholecalciferol (Vitamin D3)) 50 Mcg Capsule 50 Mcg PO DAILY Mucinex (Guaifenesin) 600 Mg Tab.er.12h 600 Mg PO BID PRN Metronidazole 45 Gm Gel..gram. 1 Applic TD DAILY PRN APPLIES TO THE FOREHEAD Clobetasol Propionate 15 Gm Cream..g. 1 Applic TOP BID MIXES WITH MOSTURIZER (EURICIN OR VANICREAM) AND APPLIES TO THE LEFT ARM AND SPOT ON CHEST TWICE DAILY Miralax (Polyethylene Glycol 3350) 17 Gm Powd.pack 17 Gm PO DAILY Lumigan (Bimatoprost) 2.5 Ml Drops 1 Drop OD HS Chlorhexidine Gluconate 473 Ml Mouthwash 5-10 Ml MT BID RINSE AND SPIT TWICE DAILY Symbicort 160-4.5 Mcg Inhaler (Budesonide/Formoterol Fumarate) 10.2 Gm Hfa.aer.ad 2 Puff IH BID Montelukast Sodium 10 Mg Tablet 10 Mg PO HS Furosemide 40 Mg Tablet 40 Mg PO DAILY Phenobarbital 64.8 Mg Tablet 129.6 Mg PO HS TAKES 2 (64.8MG) TABS TO EQUAL 129.6MG Lisinopril 5 Mg Tablet 5 Mg PO DAILY Metoprolol Succinate 50 Mg Tab.er.24h 50 Mg PO DAILY Digoxin 250 Mcg Tablet 250 Mcg PO DAILY Phenytoin Sodium Extended 100 Mg Capsule 200 Mg PO DAILY TAKES 2 (100MG) CAPS IN THE MORNING AND 3 (100MG) CAPS AT 1800 Phenytoin Sodium Extended 100 Mg Capsule 300 Mg PO 1800 TAKES 2 (100MG) CAPS IN THE MORNING AND 3 (100MG) CAPS AT 1800 Aspirin EC (Aspirin) 81 Mg Tablet.dr 81 Mg PO DAILY Simvastatin 10 Mg Tablet 10 Mg PO HS Levothyroxine Sodium 75 Mcg Tablet 75 Mcg PO DAILY Instructions to Patient/Family Assessment/Instructions Take medications as prescribed. Participate in therapies. Follow Up Appt.: Next jail rounds Skilled NF Admit to: [facility] Certification ([facility]) I certify that [facility] services are required to be given on an inpatient basis abdoul use of the above named patient's need for fci care on a continuing basis for the conditions(s) for which he/she was receiving inpatient hospital services prior to his/her transfer to the [facility]. Halfway Facility Order: Nursing Services, Road Builder-Evaluate & Treat, Physical Therapy-Evaluate & Treat, Speech Language-Evaluate & Treat Oxygen Delivery Method: Nasal Cannula Discharge Diet: No Restrictions Daily Activity as Tolerated: Yes Resuscitation Status: Do Not Resuscitate Cali Buckley Nov 16, 2019 11:11 Discharge Physical Exam General: Alert, Oriented X3, Cooperative, No Acute Distress HEENT: Atraumatic, EOMI, Mucous Memb Moist/[place] Lungs: Clear to Auscultation, Normal Air Movement Heart: Regular Rate, Normal S1, Normal S2, No Murmurs Abdomen: Normal Bowel Sounds, Soft, No Tenderness Extremities: No Edema, No Tenderness/Swelling Skin: No Rashes, No Significant Lesion Psych/Mental Status: Mental Status NL, Mood NL CALI BUCKLEY MD Nov 16, 2019 11:16
[2019-11-16] MEDS ORDERED: PRED10TA22 PO ×2 (11:22)
--- NOTE | 2019-11-16 12:36 | NUR ---
Report called to Veronica TRENT RN received report from this RN at this time. Call back number left with MILEY RN for any further questions.
[2019-11-16 12:39] VITALS: BP 136/65
[2019-11-16] MEDS ORDERED: PHEN64.8 PO ×2 (13:52)
--- NOTE | 2019-11-16 15:20 | Therapy Team Discharge Summary ---
Therapy Discharge Summary Discharge Recommendations Date of Discharge Nov 16, 2019 at 13:43 Physical Therapy Patient dismissing to [place] on this date for continued care. Patient performed minimal assist with all bed mobility and transfers. Ambulated with FWW x 250' with steady gait sequence. Patient and therapy address goals, however, not attained. Therapy to continue at [place] to address all functional strength and mobility. Patient, upon initial evaluation required maximum assist with all mobility and was limited due to SOA. Patient continued to require O2. Occupational Therapy Decreased Activ Tolerance, Decreased UE Strength, Impaired Funct Balance, Impaired I ADL's, Impaired Self-Care Skills, Restricted Funct UE ROM PT Shelter Goals Drapery Operator Goals PT Shelter Goals Time Frame: Nov 20, 2019 Roll Left to Right (QC): 5 Sit to Lying (QC): 5 Lying-Sitting on Side/Bed(QC): 5 Sit to Stand (QC): 5 Chair/Lwy-zt-Chmpe Xfer(QC): 5 Walk 10 feet (QC): 5 Walk 50ft with 2 Turns (QC): 5 OT Shelter Goals Drapery Operator Goals Time Frame: Nov 27, 2019 Eating (QC): 6 Oral Hygiene (QC): 6 Shower/Bathe Self (QC): 4 Upper Body Dressing (QC): 6 Lower Body Dressing (QC): 4 On/Off Footwear (QC): 6 Toileting Hygiene (QC): 4 1=Demonstrate adherence to instructed precautions during ADL tasks. 2=Patient will verbalize/demonstrate understanding of assistive devices/modifications for ADL. 3=Patient will improve strength/tolerance for activity to enable patient to perform ADL's. Speech Drapery Operator Goals Drapery Operator Goals Patient will maintain adequate nutrition/hydration via safe effective swallow. VITOR MADRIGAL PT Nov 16, 2019 15:20
--- NOTE | 2019-11-17 07:44 | Therapy Team Discharge Summary ---
Therapy Discharge Summary Discharge Recommendations Date of Discharge Nov 16, 2019 at 13:43 Occupational Therapy Decreased Activ Tolerance, Decreased UE Strength, Impaired Funct Balance, Imp aired I ADL's, Impaired Self-Care Skills, Restricted Funct UE ROM Speech-Language Pathology Patient received dysphagia services throughout his admission. Patient was upgraded to regular this date. Patient was discharged to the [facility] today. PT Fpc Goals Fpc Goals PT Brine Room Laborer Goals Time Frame: Nov 20, 2019 Roll Left to Right (QC): 5 Sit to Lying (QC): 5 Lying-Sitting on Side/Bed(QC): 5 Sit to Stand (QC): 5 Chair/Hfk-pb-Bntim Xfer(QC): 5 Walk 10 feet (QC): 5 Walk 50ft with 2 Turns (QC): 5 OT Fpc Goals Fpc Goals Time Frame: Nov 27, 2019 Eating (QC): 6 Oral Hygiene (QC): 6 Shower/Bathe Self (QC): 4 Upper Body Dressing (QC): 6 Lower Body Dressing (QC): 4 On/Off Footwear (QC): 6 Toileting Hygiene (QC): 4 1=Demonstrate adherence to instructed precautions during ADL tasks. 2=Patient will verbalize/demonstrate understanding of assistive devices/modifications for ADL. 3=Patient will improve strength/tolerance for activity to enable patient to perform ADL's. Speech Brine Room Laborer Goals Fpc Goals Patient will maintain adequate nutrition/hydration via safe effective swallow. HILLARY PRUITT Nov 17, 2019 07:44
--- NOTE | 2019-11-18 11:23 | Therapy Team Discharge Summary ---
Therapy Discharge Summary Discharge Recommendations Date of Discharge Nov 16, 2019 at 13:43 Occupational Therapy Pt admitted to [facility] on 11/13/2019. At [facility], pt was independent with eating, min A showering (sponge bath), min A upper body dressing, min A footwear, and min A toilet hygiene. He declined oral hygiene and lower body dressing at evaluation. Pt discharged to [facility] for continued therapies on 11/15/2019. Pt discharged before follow up OT tx, thus pt did not meet any goals. OT recommends continued skilled therapy at SNF in order to increase independence and safety with ADLs and functional mobility. Decreased Activ Tolerance, Decreased UE Strength, Impaired Funct Balance, I mpaired I ADL's, Impaired Self-Care Skills, Restricted Funct UE ROM PT Pbx Repairer Goals Pbx Repairer Goals PT [facility]ci Goals Time Frame: Nov 20, 2019 Roll Left to Right (QC): 5 Sit to Lying (QC): 5 Lying-Sitting on Side/Bed(QC): 5 Sit to Stand (QC): 5 Chair/[id number]-Rguwt Xfer(QC): 5 Walk 10 feet (QC): 5 Walk 50ft with 2 Turns (QC): 5 OT Pbx Repairer Goals Pbx Repairer Goals Time Frame: Nov 27, 2019 Eating (QC): 6 (not met) Oral Hygiene (QC): 6 (not met) Shower/Bathe Self (QC): 4 (not met) Upper Body Dressing (QC): 6 (not met) Lower Body Dressing (QC): 4 (not met) On/Off Footwear (QC): 6 (not met) Toileting Hygiene (QC): 4 (not met) 1=Demonstrate adherence to instructed precautions during ADL tasks. 2=Patient will verbalize/demonstrate understanding of assistive devices/modifications for ADL. 3=Patient will improve strength/tolerance for activity to enable patient to perform ADL's. Speech Fci Goals Fci Goals Patient will maintain adequate nutrition/hydration via safe effective swallow. STEWART SHEETS OT Nov 18, 2019 11:23
== END 2019-11-16 13:43 | DRG 189 ==
LOC: 4TH 13:25
PROVIDERS: ADMIT Family Medicine; ATTEND Family Medicine
DX: J96.01 Acute respiratory failure with hypoxia (principal); J10.1 Influenza due to other identified influenza virus with other respiratory manifestations; Z66 Do not resuscitate
CPT/HCPCS: 94640; 94760

== ENCOUNTER 2019-12-25 12:16 | Inpatient (IN) | payer MEDICARE ==
[2019-12-25] VITALS (9 sets, daily range): BP systolic 117–151; BP diastolic 55–69
[~2019-12-25] VITALS: Ht 182 cm; Wt 85.6 kg
[~2019-12-25 12:16] MED LIST changes: +PRED10TA22 PO
[2019-12-25] MEDS ORDERED: RT-ALBUTEROL HFA (PROAIR HFA) 8.5 GM IH ONE (12:30)
[2019-12-25] MEDS ORDERED: RX-ALBUTEROL INHALER (PROAIR) 8.5 GM IH ONE (12:31)
--- OUTSIDE RECORDS SUMMARY | 2019-12-25 12:31 | XMS REPORT | Continuity of Care Document ---
Author Organization Unknown Address Unknown Phone Unavailable Allergies Active Description Code Type Severity Reaction Onset Reported/Identified Relationship to Patient Clinical Status Yes No Known Drug Allergies [id number] Drug Allergy Unknown N/A 10/17/2009 Yes amiodarone [id number] Drug Allerg y Severe N/A 03/13/2019 Yes lorazepam [id number] Drug Allergy Unknown N/A 03/13/2019 Yes scopolamine [id number] Drug Aller gy Unknown N/A 03/13/2019 Medications There is no data. Problems Date Dx Coded Attending Type Code Diagnosis Diagnosed By RINKU MELENDEZ Ot M54.32 SCIATICA, LEFT SIDE 08/01/1026 MEENA GAO, ELSA Cantor Ot R29 .6 REPEATED FALLS 08/01/1026 MEENA GAO, ELSA Cantor Ot R42 DIZZINESS AND GIDDINESS 08/01/1219 MEENA GAO, ELSA Cantor Ot R29 .6 REPEATED FALLS 08/01/1219 MEENA GAO, ELSA Cantor Ot R42 DIZZINESS AND GIDDINESS 08/01/1346 JONATHAN CHAMBERS, MARTINEZ Adame Ot R26.8 9 OTHER ABNORMALITIES OF GAIT AND MOBILITY 08/01/1433 [...] W/O MENT OF INTRACT 09/04/2010 Ot 345.2 PETI T MAL STATUS 09/04/2010 Ot 401.9 HYPE RTENSION NOS 09/04/2010 Ot 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 09/04/2010 Ot 414.00 COR ON ATHEROSCLER NOS TYPE VESSEL, NATIV 09/04/2010 Ot 491.22 OBS TRUCTIVE CHRONIC BRONCHITIS WITH ACUT 09/04/2010 Ot 530.0 CHALINO LASIA CARDIOSPASM 09/04/2010 Ot V12.61 PER CANDIDO HISTORY, PNEUMONIA (RECURRENT) 09/04/2010 Ot V15.82 HIS TORY OF TOBACCO USE 09/04/2010 Ot V45.02 AUT O IMPLANTABLE CARDIAC DEFIBRILLATOR I 09/04/[address] ABSENCE OF EYE 09/04/[address] ABSENCE OF OTH ORGAN 09/04/2010 Ot V45.81 AOR TOCORONARY BYPASS 09/04/2010 Ot V46.2 SUPP LEMENTAL OXYGEN 09/04/2010 Ot V58.63 ISHAN G- TERM(CURRENT)USE OF ANTIPLATELET/AN 10/12/2010 Ot 211.3 ZEYNEP GN NEOPLASM LG BOWEL 10/12/2010 Ot 496 CHR AI RWAY OBSTRUCT NEC 10/12/2010 Ot 786.2 COUGH 10/12/2010 Ot V76.51 SCR EEN MAL NEOP- COLON 01/05/2011 Ot 272.4 HYPE RLIPIDEMIA NEC/NOS 01/05/2011 Ot 276.1 HYPO SMOLALITY 01/05/2011 Ot 345.90 EPI LEPSY UNSPEC W/O MENTION INTRACTABLE 01/05/2011 Ot 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 01/05/2011 Ot 414.01 COR ONARY ATHEROSCLEROSIS OF IONE CORON 01/05/2011 Ot 414.8 CHR ISCHEMIC HRT DIS NEC 01/05/2011 Ot 416.8 CHR PULMON HEART DIS NEC 01/05/2011 Ot 428.0 KENDRICK ESTIVE HEART FAILURE NOS 01/05/2011 Ot 428.23 ACU TE CHRONIC SYSTOLIC HRT FAILURE 01/05/2011 Ot 491.22 OBS TRUCTIVE CHRONIC BRONCHITIS WITH ACUT 01/05/2011 Ot 493.90 AST HMA, UNSPECIFIED 01/05/2011 Ot 530.0 CHALINO LASIA CARDIOSPASM 01/05/2011 Ot 530.81 ESO PHAGEAL REFLUX 01/05/2011 Ot 585.9 CHEESE SUPERVISOR MARCELL KIDNEY DISEASE, UNSPECIFIED 01/05/2011 Ot E944.4 ADV EFF DIURETICS NEC 01/05/2011 Ot V15.82 HIS TORY OF TOBACCO USE 01/05/2011 Ot V45.02 AUT O IMPLANTABLE CARDIAC DEFIBRILLATOR I 01/05/2011 Ot V45.81 AOR TOCORONARY BYPASS 01/05/2011 Ot V45.82 PER CUTANEOUS TRANSLUM CORON ANGIOPLASTY 10/14/2011 Ot 881.00 OPE N WOUND OF FOREARM 10/14/2011 Ot E000.8 OTH ER EXTERNAL CAUSE STATUS 10/14/2011 Ot E849.0 ACC IDENT IN HOME 10/14/2011 Ot E917.4 STA T OB W/O SUB FALL NEC 10/14/2011 Ot V06.1 [id number], COMBINED [ 10/09/2012 Ot 263.9 PROT EIN-JUANA MALNUTR NOS 10/09/2012 Ot 272.4 HYPE RLIPIDEMIA NEC/NOS 10/09/2012 Ot 276.1 HYPO SMOLALITY 10/09/2012 Ot 276.8 HYPO POTASSEMIA 10/09/2012 Ot 285.9 ANEM IA NOS 10/09/2012 Ot 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) 10/09/2012 Ot 345.90 EPI LEPSY UNSPEC W/O MENTION INTRACTABLE 10/09/2012 Ot 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 10/09/2012 Ot 414.01 COR ONARY ATHEROSCLEROSIS OF IONE CORON 10/09/2012 Ot 414.8 CHR ISCHEMIC HRT DIS NEC 10/09/2012 Ot 426.3 LEFT BB BLOCK NEC 10/09/2012 Ot 428.0 KENDRICK ESTIVE HEART FAILURE NOS 10/09/2012 Ot 428.23 ACU TE CHRONIC SYSTOLIC HRT FAILURE 10/09/2012 Ot 486 PNEUMO DENI, ORGANISM NOS 10/09/2012 Ot 487.0 INFL UENZA WITH PNEUMONIA 10/09/2012 Ot 496 CHR AI RWAY OBSTRUCT NEC 10/09/2012 Ot 518.81 ACU TE RESPIRATORY FAILURE 10/09/2012 Ot 790.6 ABN BLOOD CHEMISTRY NEC 10/09/2012 Ot 792.1 ABN FIND-STOOL CONTENTS 10/09/2012 Ot 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, CEREBRAL INFARCTION 10/09/2012 Ot V45.02 AUT O IMPLANTABLE CARDIAC DEFIBRILLATOR I 10/09/2012 Ot V45.82 PER CUTANEOUS TRANSLUM CORON ANGIOPLASTY 10/16/2012 Ot 112.0 THRUSH 10/16/2012 Ot 276.1 HYPO SMOLALITY 10/16/2012 Ot 287.5 THRO MBOCYTOPENIA NOS 10/16/2012 Ot 345.90 EPI LEPSY UNSPEC W/O MENTION INTRACTABLE 10/16/2012 Ot 414.8 CHR ISCHEMIC HRT DIS NEC 10/16/2012 Ot 426.3 LEFT BB BLOCK NEC 10/16/2012 Ot 428.0 KENDRICK ESTIVE HEART FAILURE NOS 10/16/2012 Ot 428.23 ACU TE CHRONIC SYSTOLIC HRT FAILURE 10/16/2012 Ot 491.21 OBS TR CHRONIC BRONCHITIS, W (ACUTE) EXAC 10/16/2012 Ot 781.2 ABNO RMALITY OF GAIT 10/16/2012 Ot 790.6 ABN BLOOD CHEMISTRY NEC 10/16/2012 Ot V57.1 PHYS ICAL THERAPY NEC 10/16/2012 Ot V57.21 ENC OUNTER FOR OCCUPATIONAL THERAPY 10/16/2012 Ot V58.89 OTH ER SPECIFIED AFTERCARE 12/03/2012 Ot 728.87 MUS DEBORAH WEAKNESS (GENERALIZED) 12/03/2012 Ot V57.21 ENC OUNTER FOR OCCUPATIONAL THERAPY 05/05/2014 RONAK JOY DO Ot 272.0 PURE HYPERCHOLESTEROLEM 05/05/2014 RONAK JOY DO Ot 276.51 DEHYDRATION 05/05/2014 RONAK JOY DO Ot 276.7 HYPERPOTASSEMIA 05/05/2014 RONAK JOY DO Ot 345.90 EPILEPSY UNSPEC W/O MENTION INTRACTABLE 05/05/2014 RONAK JOY DO Ot 412 OLD MYOCARDIAL INFARCT 05/05/2014 RONAK JOY DO Ot 414.00 CORON ATHEROSCLER NOS TYPE VESSEL, NATIV 05/05/2014 RONAK JOY DO Ot 414.8 CHR ISCHEMIC HRT DIS NEC 05/05/2014 RONAK JOY DO Ot 424.0 MITRAL VALVE DISORDER 05/05/2014 RONAK JOY DO Ot 438.89 OTH LATE EFFECT-CEREBROVASCULAR DISEASE 05/05/2014 RONAK JOY DO Ot 493.20 CHRONIC OBSTRUCTIVE ASTHMA, NOS 05/05/2014 DWAYNE JOY DOI Ot 530.81 ESOPHAGEAL REFLUX 05/05/2014 RONAK JOY DO Ot 585.9 CHRONIC KIDNEY DISEASE, UNSPECIFIED 05/05/2014 JOY DO, RONAK Ot 593.9 RENAL URETERAL DIS NOS 05/05/2014 BENITA ESTRADA RONAK Ot 780.2 SYNCOPE AND COLLAPSE 05/05/2014 BENITA ESTRADARONAK Ot 780.4 DIZZINESS AND GIDDINESS 05/05/2014 BENITA ESTRADADWAYNEI Ot 787.91 DIARRHEA 05/05/2014 BENITA ESTRADARONAK Ot 790.5 ABN SERUM ENZY LEVEL NEC 05/05/2014 BENITA ESTRADARONAK Ot 812.00 FX UP END HUMERUS NOS-CL 05/05/2014 BENITA ESTRADADWAYNEI Ot E849.0 ACCIDENT IN HOME 05/05/2014 BENITA ESTRADADWAYNEI Ot E888.9 FALL NOS 05/05/2014 BENITA ESTRADARONAK Ot E942.0 ADV EFF CARD RHYTH REGUL 05/05/2014 BENITA ESTRADARONAK Ot E942.9 ADV EFF CARDIOVASC NEC 05/05/2014 BENITA ESTRADARONAK Ot V15.82 HISTORY OF TOBACCO USE 05/05/2014 JOYRONAK STRONG DO Ot V45.02 AUTO IMPLANTABLE CARDIAC DEFIBRILLATOR I 05/05/2014 JOYRONAK STRONG DO Ot V45.81 AORTOCORONARY BYPASS 05/25/2014 JOHANNA WARREN MD E Ot 244.9 HYPOTHYROIDISM NOS 05/25/2014 JOHANNA WARREN MD E Ot 272.4 HYPERLIPIDEMIA NEC/NOS 05/25/2014 JOHANNA WARREN MD E Ot 273.8 DIS PLAS PROTEIN MET NEC 05/25/2014 JOHANNA WARREN MD E Ot 276.1 HYPOSMOLALITY 05/25/2014 JOHANNA WARREN MD E Ot 276.7 HYPERPOTASSEMIA 05/25/2014 JOHANNA WARREN MD E Ot 285.9 ANEMIA NOS 05/25/2014 JOHANNA WARREN MD E Ot 311 DEPRESSIVE DISORDER NEC 05/25/2014 JOHANNA WARREN MD E Ot 345.9 0 EPILEPSY UNSPEC W/O MENTION INTRACTABLE 05/25/2014 JOHANNA WARREN MD E Ot 414.0 1 CORONARY ATHEROSCLEROSIS OF IONE CORON 05/25/2014 JOHANNA WARREN MD Ot 414.8 CHR ISCHEMIC HRT DIS NEC 05/25/2014 JOHANNA WARREN MD Ot 424.0 MITRAL VALVE DISORDER 05/25/2014 JOHANNA WARREN MD Ot 427.4 1 VENTRICULAR FIBRILLATION 05/25/2014 JOHANNA WARREN MD E Ot 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 05/25/2014 JOHANNA WARREN MD Ot 493.2 0 CHRONIC OBSTRUCTIVE ASTHMA, NOS 05/25/2014 JOHANNA WARREN MD Ot 530.8 1 ESOPHAGEAL REFLUX 05/25/2014 JOHANNA WARREN MD Ot 781.2 ABNORMALITY OF GAIT 05/25/2014 JOHANNA WARREN MD Ot 787.2 1 DYSPHAGIA, ORAL PHASE 05/25/2014 JOHANNA WARREN MD Ot 790.6 ABN BLOOD CHEMISTRY NEC 05/25/2014 JOHANNA WARREN MD Ot V45.0 2 AUTO IMPLANTABLE CARDIAC DEFIBRILLATOR I 05/25/2014 JOHANNA WARREN MD Ot V45.8 1 AORTOCORONARY BYPASS 05/25/2014 JOHANNA WARREN MD Ot V45.8 2 PERCUTANEOUS TRANSLUM CORON ANGIOPLASTY 05/25/2014 JOHANAN WARREN MD Ot V46.2 SUPPLEMENTAL OXYGEN 05/25/2014 JOHANNA WARREN MD Ot V54.1 1 AFTERCARE HEALING TRAUMATIC FX UPPER ARM 05/25/2014 JOHANNA WARREN MD Ot V57.8 9 REHABILITATION PROC [facility] 07/15/2014 FRANCOIS DO, PEARL F Ot V54.11 07/15/2014 FRANCOIS DO, PEARL F Ot V57.1 07/20/2014 FRANCOIS DO, PEARL F Ot V54.11 07/20/2014 FRANCOIS DO, PEARL F Ot V57.1 07/27/2014 FRANCOIS DO, PEARL F Ot V54.11 07/27/2014 FRANCOIS DO, PEARL F Ot V57.1 07/28/2014 JOY DO, RONAK Ot V54.11 07/28/2014 JOY DO, RONAK Ot V57.21 08/02/2014 FRANCOIS DO, PEARL F Ot V54.11 08/02/2014 FRANCOIS DO, PEARL F Ot V57.1 08/04/2014 JOY DO, RONAK Ot V54.11 08/04/2014 JYO DO, RONAK Ot V57.21 08/16/2014 HERNAN THIBODEAUX Ot 873.42 OPEN WOUND OF FOREHEAD 08/16/2014 HERNAN THIBODEAUX Ot 910.0 ABRASION HEAD 08/16/2014 HERNAN THIBODEAUX Ot 959.01 HEAD INJURY, NOS 08/16/2014 HERNAN THIBODEAUX Ot E000.8 OTHER EXTERNAL CAUSE STATUS 08/16/2014 HERNAN THIBODEAUX Ot E849.7 ACCID IN RESIDENT INSTIT 08/16/2014 HERNAN THIBODEAUX Ot E888.9 FALL NOS 08/16/2014 HERNAN THIBODEAUX Ot V06.1 [id number], COMBINED [ 08/17/2014 RONAK JOY DO Ot V54.11 08/17/2014 RONAK JOY DO Ot V57.21 09/01/2014 PEARL PARRISH DO Ot [...] 09/07/2014 Ot 429.3 09/07/2014 Ot 786.09 09/07/2014 RNOAK JOY DO Ot 959.6 09/07/2014 KADE GAO [facility], [facility] FACP CCDS Ot 397.0 09/07/2014 KADE SONG, [facility] FACP CCDS Ot 414.00 09/07/2014 KADE GAO [facility], [facility] FACP CCDS Ot 414.8 09/07/2014 KADE GAO [facility], [facility] FACP CCDS Ot 424.0 09/07/2014 KADE GAO [facility] Ot 427.41 09/07/2014 KADE GAO [facility], [facility] FACP CCDS Ot 780.79 09/07/2014 KADE GAO [facility] CCD[facility] Ot V45.02 09/07/2014 FRANCOIS DO PEARL F Ot V54.11 09/07/2014 FRANCOIS DO PEARL F Ot V57.1 09/07/2014 DWAYNE JOY DOI Ot V54.11 09/07/2014 DWAYNE JOY DOI Ot V57.21 09/22/2014 RONAK JOY DO Ot 038.42 E COLI SEPTICEMIA 09/22/2014 DWAYNE JOY DOI Ot 272.4 HYPERLIPIDEMIA NEC/NOS 09/22/2014 DWAYNE JOY DOI Ot 276.1 HYPOSMOLALITY 09/22/2014 DWAYNE JOY DOI Ot 285.9 ANEMIA NOS 09/22/2014 DWAYNE JOY DOI Ot 300.00 ANXIETY STATE NOS 09/22/2014 DWAYNE JOY DOI Ot 311 DEPRESSIVE DISORDER NEC 09/22/2014 WDAYNE JOY DOI Ot 345.90 EPILEPSY UNSPEC W/O MENTION INTRACTABLE 09/22/2014 RONAK JOY DO Ot 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 09/22/2014 DWAYNE JOY DOI Ot 414.8 CHR ISCHEMIC HRT DIS NEC 09/22/2014 DWAYNE JOY DOI Ot 424.0 MITRAL VALVE DISORDER 09/22/2014 RONAK JOY DO Ot 433.10 CAROTID ARTERY OCCLUSION W O CEREBRAL IN 09/22/2014 RONAK JOY DO Ot 458.9 HYPOTENSION NOS 09/22/2014 RONAK JOY DO Ot 496 CHR AIRWAY OBSTRUCT NEC 09/22/2014 RONAK JOY DO Ot 514 PULM CONGEST/HYPOSTASIS 09/22/2014 RONAK JOY DO Ot 530.81 ESOPHAGEAL REFLUX 09/22/2014 RONAK JOY DO Ot 584.9 ACUTE RENAL FAILURE, UNSPECIFIED 09/22/2014 RONAK JOY DO Ot 599.0 URIN TRACT INFECTION NOS 09/22/2014 DWAYNE JOY DOI Ot 995.91 SEPSIS 09/22/2014 RONAK JOY DO Ot V45.02 AUTO IMPLANTABLE CARDIAC DEFIBRILLATOR I 09/22/2014 RONAK JOY DO Ot V45.81 AORTOCORONARY BYPASS 09/28/2014 PEARL PARRISH [...] JOY DOI Ot 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 09/28/2014 DWAYNE JOY DOI Ot 414.8 CHR ISCHEMIC HRT DIS NEC 09/28/2014 DWAYNE JOY DOI Ot 424.0 MITRAL VALVE DISORDER 09/28/2014 RONAK JOY DO Ot 428.0 CONGESTIVE HEART FAILURE NOS 09/28/2014 BENITA ESTRADA RONAK Ot 428.23 ACUTE CHRONIC SYSTOLIC HRT FAILURE [...] V45.02 AUTO IMPLANTABLE CARDIAC DEFIBRILLATOR I 09/28/2014 BENITA ESTRADA RONAK Ot V45.81 AORTOCORONARY BYPASS 10/02/2014 BENITA ESTRADA RONAK Ot V54.11 10/02/2014 JOY DO RONAK Ot V57.21 10/07/2014 JOY DO RONAK Ot V54.11 AFTERCARE HEALING TRAUMATIC FX UPPER ARM 10/07/2014 BENITA ESTRADA RONAK Ot V57.21 ENCOUNTER FOR OCCUPATIONAL THERAPY 12/21/2014 BENITA DO RONAK Ot 728.87 12/21/2014 JOY DO RONAK Ot V57.1 12/22/2014 JOY DO RONAK Ot 728.87 12/22/2014 JOY DO RONAK Ot V57.1 01/31/2015 JOY DO RONAK Ot 728.87 01/31/2015 JOY DO RONAK Ot V57.1 03/20/2015 JOY DO RONAK Ot 728.87 MUSCLE WEAKNESS (GENERALIZED) 03/20/2015 BENITA ESTRADA RONAK Ot V57.1 PHYSICAL THERAPY NEC 04/07/2015 BENITA ESTRADA RONAK Ot 728.87 04/07/2015 JOY DO RONAK Ot V57.1 05/10/2015 KADE GAO FACC, DANNIELLE SONGP CCDS Ot 272.4 HYPERLIPIDEMIA NEC/NOS 05/10/2015 KADE GAO FACC, DANNIELLE FACP CCDS Ot 300.4 DYSTHYMIC DISORDER 05/10/2015 DANNIELLE BRAUN MD, FACCP CCDS Ot 345.90 EPILEPSY UNSPEC W/O MENTION INTRACTABLE 05/10/2015 DANNIELLE BRAUN MD, FACC FACP CCDS Ot 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69 OT MED,LT,CURRENT USE 11/22/2015 MARY HERRING DO Ot I1 0 ESSENTIAL (PRIMARY) HYPERTENSION 11/22/2015 MARY HERRING DO, Ot J44.9 CHRONIC OBSTRUCTIVE PULMONARY DISEASE, U 11/22/2015 MARY HERRING DO, Ot S00.33XA CONTUSION OF NOSE, INITIAL ENCOUNTER 11/22/2015 MARY HERRING DO, Ot S40.011A CONTUSION OF RIGHT SHOULDER, INITIAL ENC 11/22/2015 MARY HERRING DO, Ot W10.1XXA FALL (ON)(FROM) SIDEWALK CURB, INITIAL E 11/22/2015 MARY HERRING DO, Ot Y99.8 OTHER EXTERNAL CAUSE STATUS 11/22/2015 MARY HERRING DO, Ot Z79.82 SKILLED NURSING (CURRENT) USE OF ASPIRIN 11/22/2015 MARY HERRING DO, Ot Z79.899 OTHER CAD MANAGER (CURRENT) DRUG THERAPY 11/23/2015 MARY HERRING DO, Ot I1 0 11/23/2015 MARY HERRING DO, Ot J44.9 11/23/2015 MARY HERRING DO, Ot S00.33XA 11/23/2015 MARY HERRING DO, Ot S40.011A 11/23/2015 MARY HERRING DO, Ot W10.1XXA 11/23/2015 MARY HERRING DO, Ot Y99.8 11/23/2015 MARY HERRING DO, Ot Z79.82 11/23/2015 MARY HERRING DO, Ot Z79.899 12/29/2015 Ot 465.9 ACUT E URI NOS 12/29/2015 Ot V58.69 OT MED,LT,CURRENT USE 12/29/2015 Ot V72.63 PRE -PROCEDURAL LABORATORY EXAMINATION 12/29/2015 Ot V74.8 SCRE EN-BACTERIAL DIS NEC 12/29/2015 Ot 715.95 OST EOARTHROS NOS- PELVIS 12/29/2015 Ot 414.01 COR ONARY ATHEROSCLEROSIS OF IONE CORON 12/29/2015 Ot 786.09 RES PIRATORY ABNORM NEC 12/29/2015 Ot V45.81 AOR TOCORONARY BYPASS 12/29/2015 Ot V45.82 PER CUTANEOUS TRANSLUM CORON ANGIOPLASTY 12/29/2015 Ot 414.8 CHR ISCHEMIC HRT DIS NEC 12/29/2015 Ot 429.3 CARD IOMEGALY 12/29/2015 Ot 786.09 RES PIRATORY ABNORM NEC 12/29/2015 RONAK JOY DO Ot 959.6 HIP THIGH INJURY NOS 12/29/2015 KADE GAO FACC, ALI FACP CCDS Ot 397.0 TRICUSPID VALVE DISEASE 12/29/2015 KADE GAO FACC, ALI FACP CCDS Ot 414.00 CORON ATHEROSCLER NOS TYPE VESSEL, NATIV 12/29/2015 KADE GAO FACC, ALI FACP CCDS Ot 414.8 CHR ISCHEMIC HRT DIS NEC 12/29/2015 KADE GAO FACC, ALI FACP CCDS Ot 424.0 MITRAL VALVE DISORDER 12/29/2015 KADE GAO FACC, ALI FACP CCDS Ot 427.41 VENTRICULAR FIBRILLATION 12/29/2015 KADE GAO FACC, DANNIELLE FACP CCDS Ot 780.79 OTH MALAISE FATIGUE 12/29/2015 KADE GAO FACC, DANNIELLE FACP CCDS Ot V45.02 AUTO IMPLANTABLE CARDIAC DEFIBRILLATOR I 01/06/2016 GRECIA FOSTER DYE OPERATOR Ot N50 .8 OTHER SPECIFIED DISORDERS OF MALE GENITA 01/09/2016 GRECIA FOSTER DYE OPERATOR Ot N50 .8 OTHER SPECIFIED DISORDERS OF MALE GENITA 01/09/2016 GRECIA FOSTER DYE OPERATOR Ot N43 .3 HYDROCELE, UNSPECIFIED 01/09/2016 GRECIA FOSTER DYE OPERATOR Ot N45 .1 EPIDIDYMITIS 01/10/2016 GRECIA FOSTER DYE OPERATOR Ot N43 .3 HYDROCELE, UNSPECIFIED 01/10/2016 GRECIA FOSTER DYE OPERATOR Ot N45 .1 EPIDIDYMITIS 01/19/2016 KADE GAO FACC, DANNIELLE FACP CCDS Ot I25.10 ATHSCL HEART DISEASE OF IONE CORONARY 01/19/2016 DANNIELLE BRAUN MD, FACC FACP CCDS Ot I25.5 ISCHEMIC CARDIOMYOPATHY 01/26/2016 GRECIA FOSTER DYE OPERATOR Ot N43 .3 HYDROCELE, UNSPECIFIED 01/26/2016 GRECIA FOSTER DYE OPERATOR Ot N45 .1 EPIDIDYMITIS 06/18/2016 Ot 715.95 OST EOARTHROS NOS- PELVIS 06/18/2016 Ot 414.01 COR ONARY ATHEROSCLEROSIS OF I[place] CORON 06/18/2016 Ot 786.09 RES PIRATORY ABNORM NEC 06/18/2016 Ot V45.81 AOR TOCORONARY BYPASS 06/18/2016 Ot V45.82 PER CUTANEOUS TRANSLUM CORON ANGIOPLASTY 06/18/2016 Ot 414.8 CHR ISCHEMIC HRT DIS NEC 06/18/2016 Ot 429.3 CARD IOMEGALY 06/18/2016 Ot 786.09 RES PIRATORY ABNORM NEC 06/18/2016 JOY DO RONAK Ot 959.6 HIP THIGH INJURY NOS 06/18/2016 KADE GAO FACC, ALI FACP CCDS Ot 397.0 TRICUSPID VALVE DISEASE 06/18/2016 KADE GAO FACC, ALI FACP CCDS Ot 414.00 CORON ATHEROSCLER NOS TYPE VESSEL, NATIV 06/18/2016 KADE GAO FACC, ALI FACP CCDS Ot 414.8 CHR ISCHEMIC HRT DIS NEC 06/18/2016 KADE GAO FACC, ALI FACP CCDS Ot 424.0 MITRAL VALVE DISORDER 06/18/2016 KADE GAO FACC, ALI FACP CCDS Ot 427.41 VENTRICULAR FIBRILLATION 06/18/2016 KADE GAO FACC, ALI FACP CCDS Ot 780.79 OTH MALAISE FATIGUE 06/18/2016 KADE GAO FACC, ALI FACP CCDS Ot V45.02 AUTO IMPLANTABLE CARDIAC DEFIBRILLATOR I 06/18/2016 KADE GAO FACC, ALI FACP CCDS Ot I25.10 ATHSCL HEART DISEASE OF I[place] CORONARY 06/18/2016 KADE GAO FACC, ALI FACP CCDS Ot I25.5 ISCHEMIC CARDIOMYOPATHY 06/18/2016 GRECIA FOSTER DYE OPERATOR Ot N43 .3 HYDROCELE, UNSPECIFIED 06/18/2016 GRECIA FOSTER DYE OPERATOR Ot N45 .1 EPIDIDYMITIS 07/19/2016 RINKU MELENDEZ Ot M54.32 SCIATICA, LEFT SIDE 08/01/2016 RINKU MELENDEZ Ot M54.32 SCIATICA, LEFT SIDE 08/14/2016 RINKU MELENDEZ Ot M54.32 SCIATICA, LEFT SIDE 08/16/2016 KADE GAO FACC, ALI FACP CCDS Ot G47.30 SLEEP APNEA, UNSPECIFIED 08/16/2016 KADE GAO FACC, ALI FACP CCDS Ot I25.10 ATHSCL HEART DISEASE OF I[place] CORONARY 08/16/2016 KADE GAO FACC, ALI FACP CCDS Ot I25.5 ISCHEMIC CARDIOMYOPATHY 08/16/2016 KADE MD FACC, ALI FACP CCDS Ot I65.23 OCCLUSION AND STENOSIS OF [place] 08/16/2016 KADE GAO FACC, ALI FACP CCDS Ot R53.1 WEAKNESS 08/16/2016 KADE GAO FACC, ALI FACP CCDS Ot Z95.810 PRESENCE OF AUTOMATIC (IMPLANTABLE) CARD 08/21/2016 KADE GAO FACC, ALI FACP CCDS Ot G47.30 SLEEP APNEA, UNSPECIFIED 08/21/2016 KADE GAO FACC, ALI FACP CCDS Ot I25.10 ATHSCL HEART DISEASE OF [place] CORONARY 08/21/2016 KADE GAO FACC, ALI FACP [...] CCDS Ot I25.10 ATHSCL HEART DISEASE OF [place] CORONARY 09/11/2016 KADE GAO FACC, ALI FACP [...] ABNORMALITIES OF GAIT AND MOBILITY 01/22/2017 KADE MD FACC, ALI FACP CCDS Ot I73.9 PERIPHERAL VASCULAR DISEASE, UNSPECIFIED 01/30/2017 KADE GAO FACC, ALI FACP CCDS Ot I25.10 ATHSCL HEART DISEASE OF [place] CORONARY 01/30/2017 KADE GAO FACC, ALI FACP [...] CCDS Ot I25.10 ATHSCL HEART DISEASE OF [place] CORONARY 02/01/2017 KADE GAO FACC, ALI FACP CCDS Ot I25.5 ISCHEMIC CARDIOMYOPATHY 02/01/2017 KADE GAO FACC, ALI FACP CCDS Ot I65.23 OCCLUSION AND STENOSIS OF [place] 02/01/2017 KADE SONGC, ALI FACP CCDS Ot I70.0 ATHEROSCLEROSIS OF [place] 02/01/2017 KADE GAO FACAris, ALI FACP CCDS Ot I73.9 PERIPHERAL VASCULAR DISEASE, UNSPECIFIED 02/01/2017 KADE GAO FACAris, ALI FACP CCDS Ot 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 02/01/2017 KADE GAO FACC, ALI FACP CCDS Ot Z95.810 PRESENCE OF AUTOMATIC (IMPLANTABLE) CARD 02/01/2017 KADE GAO FACC, ALI FACP CCDS Ot I25.10 ATHSCL HEART DISEASE OF [place] CORONARY 02/01/2017 KADE GAO FACC, ALI FACP [...] CCDS Ot I25.10 ATHSCL HEART DISEASE OF [place] CORONARY 02/01/2017 KADE GAO FACC, ALI FACP [...] CCDS Ot I25.10 ATHSCL HEART DISEASE OF [place] CORONARY 02/01/2017 KADE SONGC, ALI FACP CCDS [...] CCDS Ot I25.10 ATHSCL HEART DISEASE OF [place] CORONARY 02/01/2017 KADE GAO FACC, ALI FACP [...] CCDS Ot I25.10 ATHSCL HEART DISEASE OF [place] CORONARY 02/01/2017 KADE GAO FACC, ALI FACP [...] PRESENCE OF AUTOMATIC (IMPLANTABLE) CARD 02/19/2017 KADE SONGC, ALI FACP CCDS Ot I25.10 ATHSCL HEART DISEASE OF [place] CORONARY 02/19/2017 KADE GAO FACC, ALI FACP [...] GASTRO-ESOPHAGEAL REFLUX DISEASE WITHOUT 02/19/2017 KADE GAO FACC, ALI FACP CCDS Ot Z95.810 PRESENCE OF AUTOMATIC (IMPLANTABLE) CARD 02/22/2017 CATHIENDON DO, ELSA Liss Ot M48.06 SPINAL STENOSIS, LUMBAR REGION 02/22/2017 HEARNDON DO, ELSA Leija Ot R26.89 OTHER ABNORMALITIES OF GAIT AND MOBILITY 04/14/2017 HEARNDON DO, ELSA Liss Ot M48.06 SPINAL STENOSIS, LUMBAR REGION 04/14/2017 HEARNDON DO, ELSA Leija Ot R26.89 OTHER ABNORMALITIES OF GAIT AND MOBILITY 04/24/2017 HEARNDON DO, ELSA Liss Ot M48.06 SPINAL STENOSIS, LUMBAR REGION 04/24/2017 HEARNDON DO, ELSA L Ot R26.89 OTHER ABNORMALITIES OF GAIT AND MOBILITY 04/29/2017 HEARNDON DO, ELSA Liss Ot M48.06 SPINAL STENOSIS, LUMBAR REGION 04/29/2017 HEARNDON DO, ELSA Leija Ot R26.89 OTHER ABNORMALITIES OF GAIT AND MOBILITY 05/24/2017 HEARNDON DO ELSA Liss Ot M48.06 SPINAL STENOSIS, LUMBAR REGION 05/24/2017 HEARNDON DOELSA Ot R26.89 OTHER ABNORMALITIES OF GAIT AND MOBILITY 06/01/2017 HEARNDON DO, ELSA Leija Ot M48.06 SPINAL STENOSIS, LUMBAR REGION 06/01/2017 HEARNDON DO, ELSA L Ot R26.89 OTHER ABNORMALITIES OF GAIT AND MOBILITY 06/08/2017 HEARNDON DO, ELSA Leija Ot M48.06 SPINAL STENOSIS, LUMBAR REGION 06/08/2017 HEARNDON DO, ELSA L Ot R26.89 OTHER ABNORMALITIES OF GAIT AND MOBILITY 07/03/2017 HEARNDON DOELSA Ot M48.06 SPINAL STENOSIS, LUMBAR REGION * DO NOT 07/03/2017 HEARNDON DOELSA L Ot R26.89 OTHER ABNORMALITIES OF GAIT AND MOBILITY 07/04/2017 HEARNDON DO, ELSA L Ot M48.061 SPINAL STENOSIS, LUMBAR REGION WITHOUT N 07/04/2017 HEARNDON DOELSA L Ot R26.89 OTHER ABNORMALITIES OF GAIT AND MOBILITY 07/23/2017 HEARNDON DO, ELSA L Ot M48.061 SPINAL STENOSIS, LUMBAR REGION WITHOUT N 07/23/2017 HEARNDON DO, ELSA L Ot R26.89 OTHER ABNORMALITIES OF GAIT AND MOBILITY 09/13/2017 MARTINEZ CHEN Ot R26.8 9 OTHER ABNORMALITIES OF GAIT AND MOBILITY 10/07/2017 MARTINEZ CHEN Ot R26.8 9 OTHER ABNORMALITIES OF GAIT AND MOBILITY 10/10/2017 MARTINEZ CHEN Ot R26.8 9 OTHER ABNORMALITIES OF GAIT AND MOBILITY 01/01/2018 LLUVIA ALMONTE MD Ot Z29. 8 ENCOUNTER FOR OTHER SPECIFIED PROPHYLACT 01/09/2018 LLUVIA ALMONTE MD Ot Z29. 8 ENCOUNTER FOR OTHER SPECIFIED PROPHYLACT 02/02/2018 LLUVIA ALMONTE MD Ot Z29. 8 ENCOUNTER FOR OTHER SPECIFIED PROPHYLACT 02/04/2018 LLUVIA ALMONTE MD Ot Z29. 8 ENCOUNTER FOR OTHER SPECIFIED PROPHYLACT 03/05/2018 LLUVIA ALMONTE MD Ot Z29. 8 ENCOUNTER FOR OTHER SPECIFIED PROPHYLACT 03/12/2018 LLUVIA ALMONTE MD Ot Z29. 8 ENCOUNTER FOR OTHER SPECIFIED PROPHYLACT 04/06/2018 LLUVIA ALMONTE MD Ot Z29. 8 ENCOUNTER FOR OTHER SPECIFIED PROPHYLACT 04/22/2018 RONAK JOY DO Ot 959.6 HIP THIGH INJURY NOS 04/22/2018 KADE GAO FACC, DANNIELLE FACP CCDS Ot 397.0 TRICUSPID VALVE DISEASE 04/22/2018 KADE GAO FACC, DANNIELLE FACP CCDS Ot 414.00 CORON ATHEROSCLER NOS TYPE VESSEL, NATIV 04/22/2018 KADE GAO FACC, ALI FACP CCDS Ot 414.8 CHR ISCHEMIC HRT DIS NEC 04/22/2018 KADE GAO FACC, DANNIELLE FACP CCDS Ot 424.0 MITRAL VALVE DISORDER 04/22/2018 KADE GAO FACC, ALI FACP CCDS Ot 427.41 VENTRICULAR FIBRILLATION 04/22/2018 KADE GAO FACC, ALI FACP CCDS Ot 780.79 OTH MALAISE FATIGUE 04/22/2018 KADE GAO FACC, DANNIELLE FACP CCDS Ot V45.02 AUTO IMPLANTABLE CARDIAC DEFIBRILLATOR I 04/22/2018 KADE GAO FACC, DANNIELLE FACP CCDS Ot I25.10 ATHSCL HEART DISEASE OF [place] CORONARY 04/22/2018 KADE GAO FACC, DANNIELLE FACP CCDS Ot I25.5 ISCHEMIC CARDIOMYOPATHY 04/22/2018 GRECIA FOSTER DYE OPERATOR Ot N43 .3 HYDROCELE, UNSPECIFIED 04/22/2018 GRECIA FOSTER DYE OPERATOR Ot N45 .1 EPIDIDYMITIS 04/22/2018 KADE GAO FACC, DANNIELLE FACP CCDS Ot G47.30 SLEEP APNEA, UNSPECIFIED 04/22/2018 KADE GAO FAC, ALI FACP CCDS Ot I25.10 ATHSCL HEART DISEASE OF [place] CORONARY 04/22/2018 KADE GAO FACC, ALI FACP [...] CCDS Ot I25.10 ATHSCL HEART DISEASE OF [place] CORONARY 04/22/2018 KADE GAO FACC, ALI FACP CCDS Ot I25.5 ISCHEMIC CARDIOMYOPATHY 04/22/2018 KADE GAO FACC, ALI FACP CCDS Ot I65.23 OCCLUSION AND STENOSIS OF [place] 04/22/2018 KADE GAO [facility], ALI FACP CCDS Ot I70.0 ATHEROSCLEROSIS OF [place] 04/22/2018 KADE GAO [facility], ALI FACP CCDS Ot I73.9 PERIPHERAL VASCULAR DISEASE, UNSPECIFIED 04/22/2018 KDAE GAO FAC, ALI FACP CCDS Ot 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 04/22/2018 KADE GAO [facility], ALI FACP CCDS Ot Z95.810 PRESENCE OF AUTOMATIC (IMPLANTABLE) CARD 05/07/2018 LLUVIA ALMONTE MD Ot Z29. 8 ENCOUNTER FOR OTHER SPECIFIED PROPHYLACT 05/08/2018 LLUVIA ALMONTE MD Ot Z29. 8 ENCOUNTER FOR OTHER SPECIFIED PROPHYLACT 05/21/2018 JOY [...] RONAK Ot R26.81 UNSTEADINESS ON FEET 06/08/2018 SUZY GAO, LLUVIA Major Ot Z29. 8 ENCOUNTER FOR OTHER SPECIFIED PROPHYLACT 07/09/2018 LLUVIA ALMONTE MD Ot Z29. 8 ENCOUNTER FOR OTHER SPECIFIED PROPHYLACT 07/10/2018 LLUVIA ALMONTE MD Ot Z29. 8 ENCOUNTER FOR OTHER SPECIFIED PROPHYLACT 08/10/2018 LLUVIA ALMONTE MD Ot Z29. 8 ENCOUNTER FOR OTHER SPECIFIED PROPHYLACT 08/12/2018 LLUVIA ALMONTE MD Ot Z29. 8 ENCOUNTER FOR OTHER SPECIFIED PROPHYLACT 09/03/2018 MEENA GAO, ELSA Cantor Ot R29 .6 REPEATED FALLS 09/03/2018 ELSA ROBLEDO MD Ot R42 DIZZINESS AND GIDDINESS 09/03/2018 RONAK JOY DO Ot 959.6 HIP THIGH INJURY NOS 09/03/2018 KADE GAO FACC, ALI FACP CCDS [...] 427.41 VENTRICULAR FIBRILLATION 09/03/2018 KADE GAO FACC, ALI FACP CCDS Ot 780.79 OTH MALAISE FATIGUE 09/03/2018 KADE GAO FACC, ALI FACP CCDS Ot V45.02 AUTO IMPLANTABLE CARDIAC DEFIBRILLATOR I 09/03/2018 KADE GAO FACC, ALI FACP CCDS Ot I25.10 ATHSCL HEART DISEASE OF [place] CORONARY 09/03/2018 KADE GAO FACC, ALI FACP CCDS Ot I25.5 ISCHEMIC CARDIOMYOPATHY 09/03/2018 GRECIA FOSTER DYE OPERATOR Ot N43 .3 HYDROCELE, UNSPECIFIED 09/03/2018 GRECIA FOSTER DYE OPERATOR Ot N45 .1 EPIDIDYMITIS 09/03/2018 KADE GAO FACC, ALI FACP CCDS Ot G47.30 SLEEP APNEA, UNSPECIFIED 09/03/2018 KADE GAO FACC, ALI FACP CCDS Ot I25.10 ATHSCL HEART DISEASE OF [place] CORONARY 09/03/2018 KADE GAO FACC, ALI FACP CCDS Ot I25.5 ISCHEMIC CARDIOMYOPATHY 09/03/2018 KADE SONG, ALI FACP CCDS Ot I65.23 OCCLUSION AND STENOSIS OF [place] 09/03/2018 KADE GAO FACC, ALI FACP CCDS Ot R53.1 WEAKNESS 09/03/2018 KADE GAO [facility], ALI FACP CCDS Ot Z95.810 PRESENCE OF AUTOMATIC (IMPLANTABLE) CARD 09/03/2018 KADE GAO FACC, ALI FACP CCDS Ot I25.10 ATHSCL HEART DISEASE OF [place] CORONARY 09/03/2018 KADE SONG, ALI FACP CCDS Ot I25.5 ISCHEMIC CARDIOMYOPATHY 09/03/2018 KADE GAO FACC, ALI FACP CCDS Ot I65.23 OCCLUSION AND STENOSIS OF [place] 09/03/2018 KADE SONG, ALI FACP CCDS Ot I70.0 ATHEROSCLEROSIS OF [place] 09/03/2018 KADE GAO FACC, ALI FACP CCDS Ot I73.9 PERIPHERAL VASCULAR DISEASE, UNSPECIFIED 09/03/2018 KADE SONG, ALI FACP CCDS Ot 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 09/03/2018 KADE GAO [facility], ALI FACP CCDS Ot Z95.810 PRESENCE OF AUTOMATIC (IMPLANTABLE) CARD 09/03/2018 RONAK JOY DO Ot I63.9 CEREBRAL INFARCTION, UNSPECIFIED 09/03/2018 ELSA ROBLEDO MD P Ot R29 .6 REPEATED FALLS 09/03/2018 ELSA ROBLEDO MD P Ot R42 DIZZINESS AND GIDDINESS 09/03/2018 ELSA ROBLEDO MD Ot R29 .6 REPEATED FALLS 09/03/2018 ELSA ROBLEDO MD P Ot R42 DIZZINESS AND GIDDINESS 09/03/2018 ELSA ROBLEDO MD P Ot R29 .6 REPEATED FALLS 09/03/2018 ELSA ROBLEDO MD P Ot R42 DIZZINESS AND GIDDINESS 09/03/2018 RONAK JOY DO Ot 959.6 HIP THIGH INJURY NOS 09/03/2018 KADE GAO FACC, ALI FACP CCDS [...] 427.41 VENTRICULAR FIBRILLATION 09/03/2018 KADE GAO FACC, ALI FACP CCDS Ot 780.79 OTH MALAISE FATIGUE 09/03/2018 KADE GAO FACC, ALI FACP CCDS Ot V45.02 AUTO IMPLANTABLE CARDIAC DEFIBRILLATOR I 09/03/2018 KADE GAO FACC, ALI FACP CCDS Ot I25.10 ATHSCL HEART DISEASE OF [place] CORONARY 09/03/2018 KADE GAO FACC, ALI FACP CCDS Ot I25.5 ISCHEMIC CARDIOMYOPATHY 09/03/2018 GRECIA FOSTER DYE OPERATOR Ot N43 .3 HYDROCELE, UNSPECIFIED 09/03/2018 GRECIA FOSTER DYE OPERATOR Ot N45 .1 EPIDIDYMITIS 09/03/2018 KADE GAO FACC, ALI FACP CCDS Ot G47.30 SLEEP APNEA, UNSPECIFIED 09/03/2018 KADE GAO FACC, ALI FACP CCDS Ot I25.10 ATHSCL HEART DISEASE OF [place] CORONARY 09/03/2018 KADE GAO FACC, ALI FACP CCDS Ot I25.5 ISCHEMIC CARDIOMYOPATHY 09/03/2018 KADE GAO FACC, ALI FACP CCDS Ot I65.23 OCCLUSION AND STENOSIS OF [place] 09/03/2018 KADE GAO FACC, ALI FACP CCDS Ot R53.1 WEAKNESS 09/03/2018 KADE GAO FACC, ALI FACP CCDS Ot Z95.810 PRESENCE OF AUTOMATIC (IMPLANTABLE) CARD 09/03/2018 KADE GAO FACC, ALI FACP CCDS Ot I25.10 ATHSCL HEART DISEASE OF [place] CORONARY 09/03/2018 KADE GAO FACC, ALI FACP CCDS Ot I25.5 ISCHEMIC CARDIOMYOPATHY 09/03/2018 KADE GAO FACC, ALI FACP CCDS Ot I65.23 OCCLUSION AND STENOSIS OF [place] 09/03/2018 KADE GAO FACC, ALI FACP CCDS Ot I70.0 ATHEROSCLEROSIS OF [place] 09/03/2018 KADE GAO FACC, ALI FACP CCDS Ot I73.9 PERIPHERAL VASCULAR DISEASE, UNSPECIFIED 09/03/2018 KADE GAO FACC, ALI FACP CCDS Ot 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 09/03/2018 KADE GAO FAC, DANNIELLE FACP CCDS Ot Z95.810 PRESENCE OF AUTOMATIC (IMPLANTABLE) CARD 09/03/2018 RONAK JOY DO Ot I63.9 CEREBRAL INFARCTION, UNSPECIFIED 09/03/2018 MEENA GAO, ELSA P Ot R29 .6 REPEATED FALLS 09/03/2018 MEENA GAO, ELSA P Ot R42 DIZZINESS AND GIDDINESS 09/03/2018 ELSA ROBLEDO MD P Ot R29 .6 REPEATED FALLS 09/03/2018 ELSA ROBLEDO MD P Ot R42 DIZZINESS AND GIDDINESS 09/05/2018 ELSA ROBLEDO MD P Ot R29 .6 REPEATED FALLS 09/05/2018 ELSA ROBLEDO MD P Ot R42 DIZZINESS AND GIDDINESS 09/10/2018 LLUVIA ALMONTE MD Ot Z29. 8 ENCOUNTER FOR OTHER SPECIFIED PROPHYLACT 09/24/2018 ELSA ROBLEDO MD Ot R29 .6 REPEATED FALLS 09/24/2018 ELSA ROBLEDO MD P Ot R42 DIZZINESS AND GIDDINESS 10/01/2018 ELSA ROBLEDO MD P Ot R29 .6 REPEATED FALLS 10/01/2018 ELSA ROBLEDO MD P Ot R42 DIZZINESS AND GIDDINESS 10/12/2018 LLUVIA ALMONTE MD Ot Z29. 8 ENCOUNTER FOR OTHER SPECIFIED PROPHYLACT 10/13/2018 LLUVIA ALMONTE MD Ot Z29. 8 ENCOUNTER FOR OTHER SPECIFIED PROPHYLACT 11/12/2018 LLUVIA ALMONTE MD Ot Z29. 8 ENCOUNTER FOR OTHER SPECIFIED PROPHYLACT 11/13/2018 LLUVIA ALMONTE MD Ot Z29. 8 ENCOUNTER FOR OTHER SPECIFIED PROPHYLACT 12/14/2018 LLUVIA ALMONTE MD Ot Z29. 8 ENCOUNTER FOR OTHER SPECIFIED PROPHYLACT 12/15/2018 LLUVIA ALMONTE MD Ot Z29. 8 ENCOUNTER FOR OTHER SPECIFIED PROPHYLACT 01/16/2019 LLUVIA ALMONTE MD Ot Z29. 8 ENCOUNTER FOR OTHER SPECIFIED PROPHYLACT 01/22/2019 CARIE PENN Ot I25.10 ATHSCL HEART DISEASE OF [place] CORONARY 01/22/2019 CARIE PENN Ot I34.0 NONRHEUMATIC MITRAL (VALVE) INSUFFICIENC 01/22/2019 CARIE PENN Ot R06.09 OTHER FORMS OF DYSPNEA 02/18/2019 LLUVIA ALMONTE MD Ot Z29. 8 ENCOUNTER FOR OTHER SPECIFIED PROPHYLACT 03/12/2019 KADE GAO FACC, DANNIELLE FACP CCDS Ot 397.0 TRICUSPID VALVE DISEASE 03/12/2019 KADE GAO FACC, ALI FACP CCDS Ot 414.00 CORON ATHEROSCLER NOS TYPE VESSEL, NATIV 03/12/2019 KADE GAO FACC, ALI FACP CCDS Ot 414.8 CHR ISCHEMIC HRT DIS NEC 03/12/2019 KADE GAO FACC, ALI FACP CCDS Ot 424.0 MITRAL VALVE DISORDER 03/12/2019 KADE GAO FACC, ALI FACP CCDS Ot 427.41 VENTRICULAR FIBRILLATION 03/12/2019 KADE GAO FACC, ALI FACP CCDS Ot 780.79 OTH MALAISE FATIGUE 03/12/2019 KADE GAO FACC, ALI FACP CCDS Ot V45.02 AUTO IMPLANTABLE CARDIAC DEFIBRILLATOR I 03/12/2019 KADE GAO FACC, ALI FACP CCDS Ot I25.10 ATHSCL HEART DISEASE OF [place] CORONARY 03/12/2019 KADE GAO FACC, DANNIELLE FACP CCDS Ot I25.5 ISCHEMIC CARDIOMYOPATHY 03/12/2019 GRECIA FOSTER DYE OPERATOR Ot N43 .3 HYDROCELE, UNSPECIFIED 03/12/2019 GRECIA FOSTER DYE OPERATOR Ot N45 .1 EPIDIDYMITIS 03/12/2019 KADE GAO FACC, ALI FACP CCDS Ot G47.30 SLEEP APNEA, UNSPECIFIED 03/12/2019 KADE GAO FACC, ALI FACP CCDS Ot I25.10 ATHSCL HEART DISEASE OF [place] CORONARY 03/12/2019 KADE GAO FACC, DANNIELLE FACP CCDS Ot I25.5 ISCHEMIC CARDIOMYOPATHY 03/12/2019 KADE GAO FACC, ALI FACP CCDS Ot I65.23 OCCLUSION AND STENOSIS OF [place] 03/12/2019 KADE GAO FACC, ALI FACP CCDS Ot R53.1 WEAKNESS 03/12/2019 KADE GAO FACC, ALI FACP CCDS Ot Z95.810 PRESENCE OF AUTOMATIC (IMPLANTABLE) CARD 03/12/2019 KADE GAO FACC, ALI FACP CCDS Ot I25.10 ATHSCL HEART DISEASE OF [place] CORONARY 03/12/2019 KADE GAO FACC, ALI FACP CCDS Ot I25.5 ISCHEMIC CARDIOMYOPATHY 03/12/2019 KADE GAO FACC, ALI FACP CCDS Ot I65.23 OCCLUSION AND STENOSIS OF [place] 03/12/2019 KADE GAO FAC, ALI FACP CCDS Ot I70.0 ATHEROSCLEROSIS OF [place] 03/12/2019 KADE GAO FAC, ALI FACP CCDS Ot I73.9 PERIPHERAL VASCULAR DISEASE, UNSPECIFIED 03/12/2019 KADE GAO FACC, ALI FACP CCDS Ot 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 03/12/2019 KADE GAO FACC, ALI FACP CCDS Ot Z95.810 PRESENCE OF AUTOMATIC (IMPLANTABLE) CARD 03/12/2019 RONAK JOY DO Ot I63.9 CEREBRAL INFARCTION, UNSPECIFIED 03/12/2019 CARIE PENN MUSIC DEPARTMENT CHAIR Ot I25.10 ATHSCL HEART DISEASE OF [place] CORONARY 03/12/2019 CARIE PENN MUSIC DEPARTMENT CHAIR Ot I34.0 NONRHEUMATIC MITRAL (VALVE) INSUFFICIENC 03/12/2019 CARIE PENN MUSIC DEPARTMENT CHAIR Ot R06.09 OTHER FORMS OF DYSPNEA 03/13/2019 JEFFERY AYERS MD Ot F32. 9 MAJOR DEPRESSIVE DISORDER, SINGLE EPISOD 03/13/2019 JEFFERY AYERS MD Ot G40.909 EPILEPSY, UNSP, NOT INTRACTABLE, WITHOUT 03/13/2019 JEFFERY AYERS MD Ot I10 ESSENTIAL (PRIMARY) HYPERTENSION 03/13/2019 JEFFERY AYERS MD Ot J44. 9 CHRONIC OBSTRUCTIVE PULMONARY DISEASE, U 03/13/2019 JEFFERY AEYRS MD Ot R40.2142 COMA SCALE, EYES OPEN, SPONTANEOUS, EMR 03/13/2019 JEFFERY AYERS MD Ot R40.2252 COMA SCALE, BEST VERBAL RESPONSE, ORIENT 03/13/2019 JEFFERY AYERS MD Ot R40.2362 COMA SCALE, BEST MOTOR RESPONSE, OBEYS C 03/13/2019 JEFFERY AYERS MD Ot S01.81XA LACERATION W/O FOREIGN BODY OF OTH PART 03/13/2019 JEFFERY AYERS MD Ot S61.412A LACERATION WITHOUT FOREIGN BODY OF LEFT 03/13/2019 JEFFERY AYERS MD Ot W01.198A FALL SAME LEV FROM SLIP/TRIP W STRIKE AG 03/13/2019 JEFFERY AYERS MD Ot Y92.003 [facility] OF [facility] [place] NON-INSTITUT (PRIVATE) R 03/13/2019 JEFFERY AYERS MD Ot Z79. 82 SKILLED NURSING (CURRENT) USE OF ASPIRIN 03/13/2019 JEFFERY AYERS MD Ot Z82. 49 FAMILY HX OF ISCHEM HEART DIS AND OTH DI 03/13/2019 JEFFERY AYERS MD Ot Z86. 73 PRSNL HX OF TIA (TIA), AND CEREB INFRC W 03/13/2019 JEFFERY AYERS MD Ot Z88. 8 ALLERGY STATUS TO [facility] DRUG/MEDS/BIOL SUB 03/13/2019 JEFFERY AYERS MD Ot Z95. 1 PRESENCE OF AORTOCORONARY BYPASS GRAFT 03/18/2019 JEFFERY AYERS MD Ot F32. 9 MAJOR DEPRESSIVE DISORDER, SINGLE EPISOD 03/18/2019 JEFFERY AYERS MD Ot G40.909 EPILEPSY, UNSP, NOT INTRACTABLE, WITHOUT 03/18/2019 JEFFERY AYERS MD Ot I10 ESSENTIAL (PRIMARY) HYPERTENSION 03/18/2019 JEFFERY AYERS MD, Ot J44. 9 CHRONIC OBSTRUCTIVE PULMONARY DISEASE, U 03/18/2019 JEFFERY [...] JEFFERY AYERS MD Ot Y92.003 [facility] [place] NON-INSTITUT (PRIVATE) R 03/18/2019 JEFFERY AYERS MD Ot Z79. 82 CAD MANAGER (CURRENT) USE OF ASPIRIN 03/18/2019 JEFFERY AYERS MD Ot Z82. 49 FAMILY HX OF ISCHEM HEART DIS AND OTH DI 03/18/2019 JEFFERY AYERS MD, Ot Z86. 73 PRSNL HX OF TIA (TIA), AND CEREB INFRC W 03/18/2019 JEFFERY AYERS MD Ot Z88. 8 ALLERGY STATUS TO OTH DRUG/MEDS/BIOL SUB 03/18/2019 JEFFERY AYERS MD Ot Z95. 1 PRESENCE OF AORTOCORONARY BYPASS GRAFT 03/22/2019 LLUVIA ALMONTE MD Ot Z29. 8 ENCOUNTER FOR OTHER SPECIFIED PROPHYLACT 03/23/2019 LLUVIA ALMONTE MD Ot Z29. 8 ENCOUNTER FOR OTHER SPECIFIED PROPHYLACT 03/25/2019 LANE RAMIRES APRN Ot S01.80XD UNSPECIFIED OPEN WOUND OF OTHER PART OF 03/25/2019 LANE RAMIRES APRN Ot X58.XXXD EXPOSURE TO OTHER SPECIFIED FACTORS, SUB 03/28/2019 HERNAN THIBODEAUX Ot F32.9 MAJOR DEPRESSIVE DISORDER, SINGLE EPISOD 03/28/2019 HERNAN THIBODEAUX Ot G40.909 EPILEPSY, UNSP, NOT INTRACTABLE, WITHOUT 03/28/2019 HERNAN THIBODEAUX Ot I 10 ESSENTIAL (PRIMARY) HYPERTENSION 03/28/2019 HERNAN THIBODEAUX Ot J44.9 CHRONIC OBSTRUCTIVE PULMONARY DISEASE, U 03/28/2019 HERNAN THIBODEAUX Ot S51.812A LACERATION WITHOUT FOREIGN BODY OF LEFT 03/28/2019 HERNAN THIBODEAUX Ot W10.9XXA FALL (ON) (FROM) UNSPECIFIED STAIRS AND 03/28/2019 HERNAN THIBODEAUX Ot W22.8XXA STRIKING AGAINST OR STRUCK BY OTHER OBJE 03/28/2019 HERNAN THIBODEAUX Ot Z 23 ENCOUNTER FOR IMMUNIZATION 03/28/2019 HERNAN THIBODEAUX Ot Z79.82 SKILLED NURSING (CURRENT) USE OF ASPIRIN 03/28/2019 HERNAN THIBODEAUX Ot Z82.49 FAMILY HX OF ISCHEM HEART DIS AND OTH DI 03/28/2019 HERNAN THIBODEAUX Ot Z85.828 PERSONAL HISTORY OF OTHER MALIGNANT NEOP 03/28/2019 HERNAN THIBODEAUX Ot Z86.73 PRSNL HX OF TIA (TIA), AND CEREB INFRC W 03/28/2019 HERNAN THIBODEAUX Ot Z87.891 PERSONAL HISTORY OF NICOTINE DEPENDENCE 03/28/2019 JERROD PA, HERNAN L Ot Z88.8 ALLERGY STATUS TO OTH DRUG/MEDS/BIOL SUB 03/28/2019 HERNAN THIBODEAUX Ot Z95.1 PRESENCE OF AORTOCORONARY BYPASS GRAFT 04/01/2019 HERNAN THIBODEAUX Ot F32.9 MAJOR DEPRESSIVE DISORDER, SINGLE EPISOD 04/01/2019 HERNAN THIBODEAUX Ot G40.909 EPILEPSY, UNSP, NOT INTRACTABLE, WITHOUT 04/01/2019 HERNAN THIBODEAUX Ot I 10 ESSENTIAL (PRIMARY) HYPERTENSION 04/01/2019 HERNAN THIBODEAUX Ot J44.9 CHRONIC OBSTRUCTIVE PULMONARY DISEASE, U 04/01/2019 HERNAN THIBODEAUX Ot S51.812A LACERATION WITHOUT FOREIGN BODY OF LEFT 04/01/2019 HERNAN THIBODEAUX Ot W10.9XXA FALL (ON) (FROM) UNSPECIFIED STAIRS AND 04/01/2019 HERNAN THIBODEAUX Ot W22.8XXA STRIKING AGAINST OR STRUCK BY OTHER OBJE 04/01/2019 HERNAN THIBODEAUX Ot Z 23 ENCOUNTER FOR IMMUNIZATION 04/01/2019 HERNAN THIBODEAUX Ot Z79.82 SKILLED NURSING (CURRENT) USE OF ASPIRIN 04/01/2019 HERNAN THIBODEAUX Ot Z82.49 FAMILY HX OF ISCHEM HEART DIS AND OTH DI 04/01/2019 HERNAN THIBODEAUX Ot Z85.828 PERSONAL HISTORY OF OTHER MALIGNANT NEOP 04/01/2019 HERNAN THIBODEAUX Ot Z86.73 PRSNL HX OF TIA (TIA), AND CEREB INFRC W 04/01/2019 HERNAN THIBODEAUX Ot Z87.891 PERSONAL HISTORY OF NICOTINE DEPENDENCE 04/01/2019 HERNAN THIBODEAUX Ot Z88.8 ALLERGY STATUS TO OTH DRUG/MEDS/BIOL SUB 04/01/2019 HERNAN THIBODEAUX Ot Z95.1 PRESENCE OF AORTOCORONARY BYPASS GRAFT 04/15/2019 ELSA GUDINO MD Ot I25 .2 OLD MYOCARDIAL INFARCTION 04/15/2019 ELSA GUDINO MD Ot I96 GANGRENE, NOT ELSEWHERE CLASSIFIED 04/15/2019 ELSA GUDINO MD Ot S51.812A LACERATION WITHOUT FOREIGN BODY OF LEFT 04/15/2019 ELSA GUDINO MD Ot Z86.79 PERSONAL HISTORY OF OTHER DISEASES OF TH 04/22/2019 LLUVIA ALMONTE MD Ot Z29. 8 ENCOUNTER FOR OTHER SPECIFIED PROPHYLACT 04/22/2019 SHAHAB GAO, ELSA Kaur Ot I96 GANGRENE, NOT ELSEWHERE CLASSIFIED 04/22/2019 SHAHAB GAO, ELSA Kaur Ot S51.812A LACERATION WITHOUT FOREIGN BODY OF LEFT 04/24/2019 LLUVIA ALMONTE MD Ot Z29. 8 ENCOUNTER FOR OTHER SPECIFIED PROPHYLACT 05/24/2019 LLUVIA ALMONTE MD Ot Z29. 8 ENCOUNTER FOR OTHER SPECIFIED PROPHYLACT 05/25/2019 LLUVIA ALMONTE MD Ot Z29. 8 ENCOUNTER FOR OTHER SPECIFIED PROPHYLACT 06/02/2019 JOY DO, RONAK Ot R53.1 WEAKNESS 06/03/2019 KADE SONGC, ALI FACP CCDS Ot 397.0 TRICUSPID VALVE DISEASE 06/03/2019 KADE GAO FACC, ALI FACP CCDS Ot 414.00 CORON ATHEROSCLER NOS TYPE VESSEL, NATIV 06/03/2019 KADE GAO FACC, ALI FACP CCDS Ot 414.8 CHR ISCHEMIC HRT DIS NEC 06/03/2019 KADE GAO FACC, ALI FACP CCDS Ot 424.0 MITRAL VALVE DISORDER 06/03/2019 KADE GAO FACC, ALI FACP CCDS Ot 427.41 VENTRICULAR FIBRILLATION 06/03/2019 KADE GAO FACC, ALI FACP CCDS Ot 780.79 OTH MALAISE FATIGUE 06/03/2019 KADE GAO FACC, ALI FACP CCDS Ot V45.02 AUTO IMPLANTABLE CARDIAC DEFIBRILLATOR I 06/03/2019 KADE GAO FACC, ALI FACP CCDS Ot I25.10 ATHSCL HEART DISEASE OF [place] CORONARY 06/03/2019 KADE GAO FACC, ALI FACP CCDS Ot I25.5 ISCHEMIC CARDIOMYOPATHY 06/03/2019 GRECIA FOSTER DYE OPERATOR Ot N43 .3 HYDROCELE, UNSPECIFIED 06/03/2019 GRECIA FOSTER DYE OPERATOR Ot N45 .1 EPIDIDYMITIS 06/03/2019 KADE GAO FACC, ALI FACP CCDS Ot G47.30 SLEEP APNEA, UNSPECIFIED 06/03/2019 KADE GAO FACC, ALI FACP CCDS Ot I25.10 ATHSCL HEART DISEASE OF [place] CORONARY 06/03/2019 KADE GAO FACC, ALI FACP CCDS Ot I25.5 ISCHEMIC CARDIOMYOPATHY 06/03/2019 KADE GAO FAC, ALI FACP CCDS Ot I65.23 OCCLUSION AND STENOSIS OF [place] 06/03/2019 KADE GAO FAC, ALI FACP CCDS Ot R53.1 WEAKNESS 06/03/2019 KADE GAO FAC, ALI FACP CCDS Ot Z95.810 PRESENCE OF AUTOMATIC (IMPLANTABLE) CARD 06/03/2019 KADE GAO FACC, ALI FACP CCDS Ot I25.10 ATHSCL HEART DISEASE OF [place] CORONARY 06/03/2019 KADE GAO FAC, ALI FACP CCDS Ot I25.5 ISCHEMIC CARDIOMYOPATHY 06/03/2019 KADE GAO FAC, ALI FACP CCDS Ot I65.23 OCCLUSION AND STENOSIS OF [place] 06/03/2019 KADE GAO [facility], ALI FACP CCDS Ot I70.0 ATHEROSCLEROSIS OF [place] 06/03/2019 KADE GAO FAC, ALI FACP CCDS Ot I73.9 PERIPHERAL VASCULAR DISEASE, UNSPECIFIED 06/03/2019 KADE GAO [facility], ALI FACP CCDS Ot 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 06/03/2019 KADE GAO [facility], ALI FACP CCDS Ot Z95.810 PRESENCE OF AUTOMATIC (IMPLANTABLE) CARD 06/03/2019 RONAK JOY DO Ot I63.9 CEREBRAL INFARCTION, UNSPECIFIED 06/03/2019 CARIE PENN MUSIC DEPARTMENT CHAIR Ot I25.10 ATHSCL HEART DISEASE OF [place] CORONARY 06/03/2019 CARIE PENNP Ot I34.0 NONRHEUMATIC MITRAL (VALVE) INSUFFICIENC 06/03/2019 CARIE PENN MUSIC DEPARTMENT CHAIR Ot R06.09 OTHER FORMS OF DYSPNEA 06/03/2019 ELSA GUDINO MD Ot I25 .2 OLD MYOCARDIAL INFARCTION 06/03/2019 ELSA GUDINO MD Ot I96 GANGRENE, NOT ELSEWHERE CLASSIFIED 06/03/2019 ELSA GUDINO MD Ot S51.812A LACERATION WITHOUT FOREIGN BODY OF LEFT 06/03/2019 ELSA GUDINO MD Ot Z86.79 PERSONAL HISTORY OF OTHER DISEASES OF TH 06/03/2019 ELSA GUDINO MD Ot I96 GANGRENE, NOT ELSEWHERE CLASSIFIED 06/03/2019 ELSA GUDINO MD Ot S51.812A LACERATION WITHOUT FOREIGN BODY OF LEFT 06/03/2019 DWAYNE JOY DOI Ot R26.81 UNSTEADINESS ON FEET 06/03/2019 RONAK JOY DO Ot Z91.81 HISTORY OF FALLING 06/03/2019 RONAK JOY DO Ot R53.1 WEAKNESS 06/05/2019 KADE GAO FACC, ALI FACP CCDS Ot 397.0 TRICUSPID VALVE DISEASE 06/05/2019 KADE GAO FACC, ALI FACP CCDS Ot 414.00 CORON ATHEROSCLER NOS TYPE VESSEL, NATIV 06/05/2019 KADE GAO FACC, ALI FACP CCDS Ot 414.8 CHR ISCHEMIC HRT DIS NEC 06/05/2019 KADE GAO FACC, ALI FACP CCDS Ot 424.0 MITRAL VALVE DISORDER 06/05/2019 KADE GAO FACC, ALI FACP CCDS Ot 427.41 VENTRICULAR FIBRILLATION 06/05/2019 KADE GAO FACC, ALI FACP CCDS Ot 780.79 OTH MALAISE FATIGUE 06/05/2019 KADE GAO FACC, ALI FACP CCDS Ot V45.02 AUTO IMPLANTABLE CARDIAC DEFIBRILLATOR I 06/05/2019 KADE GAO FACC, ALI FACP CCDS Ot I25.10 ATHSCL HEART DISEASE OF [place] CORONARY 06/05/2019 KADE GAO FACC, ALI FACP CCDS Ot I25.5 ISCHEMIC CARDIOMYOPATHY 06/05/2019 GRECIA FOSTER DYE OPERATOR Ot N43 .3 HYDROCELE, UNSPECIFIED 06/05/2019 GRECIA FOSTER DYE OPERATOR Ot N45 .1 EPIDIDYMITIS 06/05/2019 KADE GAO FACC, ALI FACP CCDS Ot G47.30 SLEEP APNEA, UNSPECIFIED 06/05/2019 KADE AGO FACC, ALI FACP CCDS Ot I25.10 ATHSCL HEART DISEASE OF [place] CORONARY 06/05/2019 KADE GAO FACC, ALI FACP CCDS Ot I25.5 ISCHEMIC CARDIOMYOPATHY 06/05/2019 KADE GAO FACC, ALI FACP CCDS Ot I65.23 OCCLUSION AND STENOSIS OF [place] 06/05/2019 KADE GAO FACC, ALI FACP CCDS Ot R53.1 WEAKNESS 06/05/2019 KADE GAO FACC, ALI FACP CCDS Ot Z95.810 PRESENCE OF AUTOMATIC (IMPLANTABLE) CARD 06/05/2019 KADE GAO FACC, ALI FACP CCDS Ot I25.10 ATHSCL HEART DISEASE OF [place] CORONARY 06/05/2019 KADE GAO FAC, ALI FACP CCDS Ot I25.5 ISCHEMIC CARDIOMYOPATHY 06/05/2019 KADE GAO FAC, ALI FACP CCDS Ot I65.23 OCCLUSION AND STENOSIS OF [place] 06/05/2019 KADE GAO FACC, ALI FACP CCDS Ot I70.0 ATHEROSCLEROSIS OF [place] 06/05/2019 KADE GAO FACC, ALI FACP CCDS Ot I73.9 PERIPHERAL VASCULAR DISEASE, UNSPECIFIED 06/05/2019 KADE GAO FAC, ALI FACP CCDS Ot 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 06/05/2019 KADE GAO FAC, ALI FACP CCDS Ot Z95.810 PRESENCE OF AUTOMATIC (IMPLANTABLE) CARD 06/05/2019 JOY DO RONAK Ot I63.9 CEREBRAL INFARCTION, UNSPECIFIED 06/05/2019 CARIE PENN MUSIC DEPARTMENT CHAIR Ot I25.10 ATHSCL HEART DISEASE OF [place] CORONARY 06/05/2019 CARIE PENN MUSIC DEPARTMENT CHAIR Ot I34.0 NONRHEUMATIC MITRAL (VALVE) INSUFFICIENC 06/05/2019 CARIE PENN MUSIC DEPARTMENT CHAIR Ot R06.09 OTHER FORMS OF DYSPNEA 06/05/2019 ELSA GUDINO MD Ot I25 .2 OLD MYOCARDIAL INFARCTION 06/05/2019 ELSA GUDINO MD Ot I96 GANGRENE, NOT ELSEWHERE CLASSIFIED 06/05/2019 ELSA GUDINO MD Ot S51.812A LACERATION WITHOUT FOREIGN BODY OF LEFT 06/05/2019 ELSA GUDINO MD Ot Z86.79 PERSONAL HISTORY OF OTHER DISEASES OF TH 06/05/2019 ELSA GUDINO MD Ot I96 GANGRENE, NOT ELSEWHERE CLASSIFIED 06/05/2019 ELSA GUDINO MD Ot S51.812A LACERATION WITHOUT FOREIGN BODY OF LEFT 06/05/2019 JOY DO, RONAK Ot R26.81 UNSTEADINESS ON FEET 06/05/2019 JOY DO, RONAK Ot Z91.81 HISTORY OF FALLING 06/05/2019 JOY DO, RONAK Ot R53.1 WEAKNESS 06/15/2019 JOY DO, RONAK Ot R26.81 UNSTEADINESS ON FEET 06/15/2019 JOY DO, RONAK Ot Z91.81 HISTORY OF FALLING 06/22/2019 JOY DO, RONAK Ot G93.89 OTHER SPECIFIED DISORDERS OF BRAIN 06/22/2019 JOY DO, RONAK Ot I63.9 CEREBRAL INFARCTION, UNSPECIFIED 06/22/2019 BENITA ESTRADA, RONAK Ot I67.82 CEREBRAL ISCHEMIA 06/26/2019 SUZY GAO, LLUVIA Major Ot Z29. 8 ENCOUNTER FOR OTHER SPECIFIED PROPHYLACT 07/21/2019 JOY DO, RONAK Ot R26.81 UNSTEADINESS ON FEET 07/21/2019 JOY DO, RONAK Ot Z91.81 HISTORY OF FALLING 08/11/2019 JOY DO, RONAK Ot R26.81 UNSTEADINESS ON FEET 08/11/2019 JOY DO, RONAK Ot Z91.81 HISTORY OF FALLING 08/12/2019 JULISAS VASQUEZ MD Ot R26.8 1 UNSTEADINESS ON FEET 08/12/2019 JULISSA VASQUEZ MD Ot Z91.8 1 HISTORY OF FALLING 08/13/2019 KADE GAO FACC, ALI FACP CCDS Ot 397.0 TRICUSPID VALVE DISEASE 08/13/2019 KADE GAO FACC, ALI FACP CCDS Ot 414.00 CORON ATHEROSCLER NOS TYPE VESSEL, NATIV 08/13/2019 KADE GAO FACC, ALI FACP CCDS Ot 414.8 CHR ISCHEMIC HRT DIS NEC 08/13/2019 KADE GAO FACC, ALI FACP CCDS Ot 424.0 MITRAL VALVE DISORDER 08/13/2019 KADE GAO FACC, ALI FACP CCDS Ot 427.41 VENTRICULAR FIBRILLATION 08/13/2019 KADE GAO FACC, ALI FACP CCDS Ot 780.79 OTH MALAISE FATIGUE 08/13/2019 KADE GAO FACC, ALI FACP CCDS Ot V45.02 AUTO IMPLANTABLE CARDIAC DEFIBRILLATOR I 08/13/2019 KADE GAO FACC, ALI FACP CCDS Ot I25.10 ATHSCL HEART DISEASE OF [place] CORONARY 08/13/2019 KADE GAO FACC, ALI FACP CCDS Ot I25.5 ISCHEMIC CARDIOMYOPATHY 08/13/2019 GRECIA FOSTER DYE OPERATOR Ot N43 .3 HYDROCELE, UNSPECIFIED 08/13/2019 GRECIA FOSTER DYE OPERATOR Ot N45 .1 EPIDIDYMITIS 08/13/2019 KADE GAO FACC, ALI FACP CCDS Ot G47.30 SLEEP APNEA, UNSPECIFIED 08/13/2019 KADE MD FACC, ALI FACP CCDS Ot I25.10 ATHSCL HEART DISEASE OF [place] CORONARY 08/13/2019 KADE GAO FACC, ALI FACP CCDS Ot I25.5 ISCHEMIC CARDIOMYOPATHY 08/13/2019 KADE GAO FAC, ALI FACP CCDS Ot I65.23 OCCLUSION AND STENOSIS OF [place] 08/13/2019 KADE GAO FACC, ALI FACP CCDS Ot R53.1 WEAKNESS 08/13/2019 KADE GAO FACC, ALI FACP CCDS Ot Z95.810 PRESENCE OF AUTOMATIC (IMPLANTABLE) CARD 08/13/2019 KADE GAO FACC, ALI FACP CCDS Ot I25.10 ATHSCL HEART DISEASE OF [place] CORONARY 08/13/2019 KADE GAO FAC, ALI FACP CCDS Ot I25.5 ISCHEMIC CARDIOMYOPATHY 08/13/2019 KADE GAO FAC, ALI FACP CCDS Ot I65.23 OCCLUSION AND STENOSIS OF [place] 08/13/2019 KADE GAO FAC, ALI FACP CCDS Ot I70.0 ATHEROSCLEROSIS OF [place] 08/13/2019 KADE GAO [facility], ALI FACP CCDS Ot I73.9 PERIPHERAL VASCULAR DISEASE, UNSPECIFIED 08/13/2019 KADE GAO FAC, ALI FACP CCDS Ot 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 08/13/2019 KADE GAO [facility], ALI FACP CCDS Ot Z95.810 PRESENCE OF AUTOMATIC (IMPLANTABLE) CARD 08/13/2019 RONAK JOY DO Ot I63.9 CEREBRAL INFARCTION, UNSPECIFIED 08/13/2019 CARIE PENN MUSIC DEPARTMENT CHAIR Ot I25.10 ATHSCL HEART DISEASE OF [place] CORONARY 08/13/2019 CARIE PENN MUSIC DEPARTMENT CHAIR Ot I34.0 NONRHEUMATIC MITRAL (VALVE) INSUFFICIENC 08/13/2019 CARIE PENN MUSIC DEPARTMENT CHAIR Ot R06.09 OTHER FORMS OF DYSPNEA 08/13/2019 ELSA GUDINO MD Ot I25 .2 OLD MYOCARDIAL INFARCTION 08/13/2019 ELSA GUDINO MD Ot I96 GANGRENE, NOT ELSEWHERE CLASSIFIED 08/13/2019 ELSA GUDINO MD Ot S51.812A LACERATION WITHOUT FOREIGN BODY OF LEFT 08/13/2019 ELSA GUDINO MD Ot Z86.79 PERSONAL HISTORY OF OTHER DISEASES OF TH 08/13/2019 ELSA GUDINO MD Ot I96 GANGRENE, NOT ELSEWHERE CLASSIFIED 08/13/2019 ELSA GUDINO MD Ot S51.812A LACERATION WITHOUT FOREIGN BODY OF LEFT 08/13/2019 JOY DO, RONAK Ot R53.1 WEAKNESS 08/13/2019 JOY DO, RONAK Ot G93.89 OTHER SPECIFIED DISORDERS OF BRAIN 08/13/2019 JOY DO, RONAK Ot I63.9 CEREBRAL INFARCTION, UNSPECIFIED 08/13/2019 JOY DO, RONAK Ot I67.82 CEREBRAL ISCHEMIA 08/13/2019 LLUVIA ALMONTE MD Ot Z29. 8 ENCOUNTER FOR OTHER SPECIFIED PROPHYLACT 08/13/2019 JULISSA VASQUEZ MD Ot R26.8 1 UNSTEADINESS ON FEET 08/13/2019 JULISSA VASQUEZ MD Ot Z91.8 1 HISTORY OF FALLING 08/17/2019 JOY DO, RONAK Ot R26.81 UNSTEADINESS ON FEET 08/17/2019 JOY DO, RONAK Ot Z91.81 HISTORY OF FALLING 08/17/2019 JOY DO, RONAK Ot R26.81 UNSTEADINESS ON FEET 08/17/2019 JOY DO, RONAK Ot Z91.81 HISTORY OF FALLING 09/11/2019 JULISSA VASQUEZ MD Ot R26.8 1 UNSTEADINESS ON FEET 09/11/2019 JULISSA VASQUEZ MD Ot R53.1 WEAKNESS 09/11/2019 JULISSA VASQUEZ MD Ot Z91.8 1 HISTORY OF FALLING 10/09/2019 LLUVIA ALMONTE MD Ot Z29. 8 ENCOUNTER FOR OTHER SPECIFIED PROPHYLACT 10/16/2019 LLUVIA ALMONTE MD Ot Z29. 8 ENCOUNTER FOR OTHER SPECIFIED PROPHYLACT 10/19/2019 LLUVIA ALMONTE MD Ot Z29. 8 ENCOUNTER FOR OTHER SPECIFIED PROPHYLACT 10/27/2019 JULISSA VASQUEZ MD Ot R27.9 UNSPECIFIED LACK OF COORDINATION 10/27/2019 JULISSA VASQUEZ MD Ot R53.1 WEAKNESS 11/04/2019 LLUVIA ALMONTE MD Ot Z29. 8 ENCOUNTER FOR OTHER SPECIFIED PROPHYLACT 11/04/2019 LLUVIA ALMONTE MD Ot Z29. 8 ENCOUNTER FOR OTHER SPECIFIED PROPHYLACT 11/04/2019 LLUVIA ALMONTE MD Ot Z29. 8 ENCOUNTER FOR OTHER SPECIFIED PROPHYLACT 11/05/2019 MARCIO GAO, CALI Gayle Ot E03. 9 HYPOTHYROIDISM, UNSPECIFIED 11/05/2019 CALI BUCKLEY MD Ot E78. 5 HYPERLIPIDEMIA, UNSPECIFIED 11/05/2019 CALI BUCKLEY MD Ot F32. 9 MAJOR DEPRESSIVE DISORDER, SINGLE EPISOD 11/05/2019 CALI BUCKLEY MD, Ot F41. 9 ANXIETY DISORDER, UNSPECIFIED 11/05/2019 CALI BUCKLEY MD Ot G40.909 EPILEPSY, UNSP, NOT INTRACTABLE, WITHOUT 11/05/2019 CALI BUCKLEY MD Ot G47. 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 0 HYPERTENSIVE HEART DISEASE WITH HEART FA 11/05/2019 CALI BUCKLEY MD, Ot I21. A1 MYOCARDIAL INFARCTION TYPE 2 11/05/2019 CALI BUCKLEY MD Ot I25. 10 ATHSCL HEART DISEASE OF [place] CORONARY 11/05/2019 CALI BUCKLEY MD, Ot I25. 5 ISCHEMIC CARDIOMYOPATHY 11/05/2019 CALI BUCKLEY MD Ot I48. 91 UNSPECIFIED ATRIAL FIBRILLATION 11/05/2019 CALI BUCKLEY MD Ot I50. 23 ACUTE ON CHRONIC SYSTOLIC (CONGESTIVE) H 11/05/2019 CALI BUCKLEY MD Ot I65. 23 OCCLUSION AND STENOSIS OF [place] 11/05/2019 CALI BUCKLEY MD Ot I73. 9 PERIPHERAL VASCULAR DISEASE, UNSPECIFIED 11/05/2019 CALI BUCKLEY MD Ot J44. 1 CHRONIC OBSTRUCTIVE PULMONARY DISEASE W 11/05/2019 CALI BUCKLEY MD Ot J96. 01 ACUTE RESPIRATORY FAILURE WITH HYPOXIA 11/05/2019 CALI BUCKLEY MD Ot K21. 9 GASTRO-ESOPHAGEAL REFLUX DISEASE WITHOUT 11/05/2019 CALI BUCKLEY MD Ot R26. 89 OTHER ABNORMALITIES OF GAIT AND MOBILITY 11/05/2019 CALI BUCKLEY MD Ot Z66 DO NOT RESUSCITATE 11/05/2019 CALI BUCKLEY MD, Ot Z86. 73 PRSNL HX OF TIA (TIA), AND CEREB INFRC W 11/05/2019 CALI BUCKLEY MD Ot Z87.891 PERSONAL HISTORY OF NICOTINE DEPENDENCE 11/05/2019 CALI BUCKLEY MD Ot Z95. 1 PRESENCE OF AORTOCORONARY BYPASS GRAFT 11/05/2019 CALI BUCKLEY MD Ot Z95. 5 PRESENCE OF CORONARY ANGIOPLASTY IMPLANT 11/05/2019 CALI BUCKLEY MD, Ot Z95.810 PRESENCE OF AUTOMATIC (IMPLANTABLE) CARD 11/05/2019 CALI BUCKLEY MD Ot Z99. 81 DEPENDENCE ON SUPPLEMENTAL OXYGEN 11/06/2019 CALI BUCKLEY MD Ot E03. 9 HYPOTHYROIDISM, UNSPECIFIED 11/06/2019 CALI BUCKLEY MD, Ot E78. 5 HYPERLIPIDEMIA, UNSPECIFIED 11/06/2019 CALI BUCKLEY MD, Ot F32. 9 MAJOR DEPRESSIVE DISORDER, SINGLE EPISOD 11/06/2019 CALI BUCKLEY MD, Ot F41. 9 ANXIETY DISORDER, UNSPECIFIED 11/06/2019 CALI BUCKLEY MD, Ot G40.909 EPILEPSY, UNSP, NOT INTRACTABLE, WITHOUT 11/06/2019 CALI BUCKLEY MD Ot G47. 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 0 HYPERTENSIVE HEART DISEASE WITH HEART FA 11/06/2019 CALI BUCKLEY MD Ot I21. A1 MYOCARDIAL INFARCTION TYPE 2 11/06/2019 CALI BUCKLEY MD, Ot I25. 10 ATHSCL HEART DISEASE OF [place] CORONARY 11/06/2019 CALI BUCKLEY MD Ot I25. 5 ISCHEMIC CARDIOMYOPATHY 11/06/2019 CALI BUCKLEY MD Ot I48. 91 UNSPECIFIED ATRIAL FIBRILLATION 11/06/2019 CALI BUCKLEY MD Ot I50. 23 ACUTE ON CHRONIC SYSTOLIC (CONGESTIVE) H 11/06/2019 CALI BUCKLEY MD Ot I65. 23 OCCLUSION AND STENOSIS OF [place] 11/06/2019 CALI BUCKLEY MD Ot I73. 9 PERIPHERAL VASCULAR DISEASE, UNSPECIFIED 11/06/2019 CALI BUCKLEY MD Ot J44. 1 CHRONIC OBSTRUCTIVE PULMONARY DISEASE W 11/06/2019 CALI BUCKLEY MD Ot J96. 01 ACUTE RESPIRATORY FAILURE WITH HYPOXIA 11/06/2019 CALI BUCKLEY MD Ot K21. 9 GASTRO-ESOPHAGEAL REFLUX DISEASE WITHOUT 11/06/2019 CALI BUCKLEY MD Ot R26. 89 OTHER ABNORMALITIES OF GAIT AND MOBILITY 11/06/2019 CALI BUCKLEY MD Ot Z66 DO NOT RESUSCITATE 11/06/2019 CALI BUCKLEY MD, Ot Z86. 73 PRSNL HX OF TIA (TIA), AND CEREB INFRC W 11/06/2019 CALI BUCKLEY MD, Ot Z87.891 PERSONAL HISTORY OF NICOTINE DEPENDENCE 11/06/2019 CALI BUCKLEY MD, Ot Z95. 1 PRESENCE OF AORTOCORONARY BYPASS GRAFT 11/06/2019 CALI BUCKLEY MD Ot Z95. 5 PRESENCE OF CORONARY ANGIOPLASTY IMPLANT 11/06/2019 CALI BUCKLEY MD, Ot Z95.810 PRESENCE OF AUTOMATIC (IMPLANTABLE) CARD 11/06/2019 CALI BUCKLEY MD, Ot Z99. 81 DEPENDENCE ON SUPPLEMENTAL OXYGEN 11/06/2019 CALI BUCKLEY MD Ot E03. 9 HYPOTHYROIDISM, UNSPECIFIED 11/06/2019 CALI BUCKLEY MD Ot E78. 5 HYPERLIPIDEMIA, UNSPECIFIED 11/06/2019 CALI BUCKLEY MD Ot F32. 9 MAJOR DEPRESSIVE DISORDER, SINGLE EPISOD 11/06/2019 CALI BUCKLEY MD, Ot F41. 9 ANXIETY DISORDER, UNSPECIFIED 11/06/2019 CALI BUCKLEY MD Ot G40.909 EPILEPSY, UNSP, NOT INTRACTABLE, WITHOUT 11/06/2019 CALI BUCKLEY MD Ot G47. 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 0 HYPERTENSIVE HEART DISEASE WITH HEART FA 11/06/2019 CALI BUCKLEY MD Ot I13. 0 HYP HRT CHR KDNY DIS W HRT FAIL AND ST 11/06/2019 CALI BUCKLEY MD Ot I21. A1 MYOCARDIAL INFARCTION TYPE 2 11/06/2019 CALI BUCKLEY MD, Ot I25. 10 ATHSCL HEART DISEASE OF [place] CORONARY 11/06/2019 CALI BUCKLEY MD, Ot I25. 5 ISCHEMIC CARDIOMYOPATHY 11/06/2019 CALI BUCKLEY MD Ot I48. 91 UNSPECIFIED ATRIAL FIBRILLATION 11/06/2019 CALI BUCKLEY MD Ot I50. 23 ACUTE ON CHRONIC SYSTOLIC (CONGESTIVE) H 11/06/2019 CALI BUCKLEY MD Ot I65. 23 OCCLUSION AND STENOSIS OF [place] 11/06/2019 CALI BUCKLEY MD Ot I73. 9 PERIPHERAL VASCULAR DISEASE, UNSPECIFIED 11/06/2019 CALI BUCKLEY MD, Ot J40 BRONCHITIS, NOT SPECIFIED ACUTE OR CH 11/06/2019 CALI BUCKLEY MD, Ot J44. 0 CHR OBSTRUCTIVE PULMON DISEASE WITH (ACU 11/06/2019 CALI BUCKLEY MD, Ot J44. 1 CHRONIC OBSTRUCTIVE PULMONARY DISEASE W 11/06/2019 CALI BUCKLEY MD, Ot J96. 01 ACUTE RESPIRATORY FAILURE WITH HYPOXIA 11/06/2019 CALI BUCKLEY MD, Ot K21. 9 GASTRO-ESOPHAGEAL REFLUX DISEASE WITHOUT 11/06/2019 CALI BUCKLEY MD, Ot N18. 9 CHRONIC KIDNEY DISEASE, UNSPECIFIED 11/06/2019 CALI BUCKLEY MD Ot R26. 89 OTHER ABNORMALITIES OF GAIT AND MOBILITY 11/06/2019 CALI BUCKLEY MD Ot Z66 DO NOT RESUSCITATE 11/06/2019 CALI BUCKLEY MD Ot Z86. 73 PRSNL HX OF TIA (TIA), AND CEREB INFRC W 11/06/2019 CALI BUCKLEY MD, Ot Z87.891 PERSONAL HISTORY OF NICOTINE DEPENDENCE 11/06/2019 CALI BUCKLEY MD Ot Z95. 1 PRESENCE OF AORTOCORONARY BYPASS GRAFT 11/06/2019 CALI BUCKLEY MD Ot Z95. 5 PRESENCE OF CORONARY ANGIOPLASTY IMPLANT 11/06/2019 CALI BUCKLEY MD Ot Z95.810 PRESENCE OF AUTOMATIC (IMPLANTABLE) CARD 11/06/2019 CALI BUCKLEY MD Ot Z99. 81 DEPENDENCE ON SUPPLEMENTAL OXYGEN 11/06/2019 LLUVIA ALMONTE MD Ot Z29. 8 ENCOUNTER FOR OTHER SPECIFIED PROPHYLACT 11/12/2019 JULISSA VASQUEZ MD Ot R27.9 UNSPECIFIED LACK OF COORDINATION 11/12/2019 JULISSA VASQUEZ MD Ot R53.1 WEAKNESS 11/12/2019 BENITA ESTRADA RONAK Ot E78.00 PURE HYPERCHOLESTEROLEMIA, UNSPECIFIED 11/12/2019 JOY DO, RONAK Ot E86.9 VOLUME DEPLETION, UNSPECIFIED 11/12/2019 BENITA ESTRADA, RONAK Ot F32.9 MAJOR DEPRESSIVE DISORDER, SINGLE EPISOD 11/12/2019 JOY DO, RONAK Ot G40.90 9 EPILEPSY, UNSP, NOT INTRACTABLE, WITHOUT 11/12/2019 JOY DO, RONAK Ot G62.9 POLYNEUROPATHY, UNSPECIFIED 11/12/2019 JOY DO, RONAK Ot I11.0 HYPERTENSIVE HEART DISEASE WITH HEART FA 11/12/2019 JOY DO, RONAK Ot I25.10 ATHSCL HEART DISEASE OF [place] CORONARY 11/12/2019 JOY DO, RONAK Ot I25.5 ISCHEMIC CARDIOMYOPATHY 11/12/2019 JOY DO, RONAK Ot I48.91 UNSPECIFIED ATRIAL FIBRILLATION 11/12/2019 JOY DO, RONAK Ot I50.23 ACUTE ON CHRONIC SYSTOLIC (CONGESTIVE) H 11/12/2019 JOY DO, RONAK Ot I65.23 OCCLUSION AND STENOSIS OF [place] 11/12/2019 JOY DO, RONAK Ot 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 11/12/2019 JOY DO, RONAK Ot I70.0 ATHEROSCLEROSIS OF [place] 11/12/2019 JOY DO, RONAK Ot J10.1 FLU DUE TO OT IDENT INFLUENZA VIRUS W O 11/12/2019 JOY DO, RONAK Ot J30.2 OTHER SEASONAL ALLERGIC RHINITIS 11/12/2019 JOY DO, RONAK Ot J44.1 CHRONIC OBSTRUCTIVE PULMONARY DISEASE W 11/12/2019 JOY DO, RONAK Ot J96.21 ACUTE AND CHRONIC RESPIRATORY FAILURE [place] 11/12/2019 JOY DO, RONAK Ot 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 11/12/2019 JOY DO, RONAK Ot M19.91 PRIMARY OSTEOARTHRITIS, UNSPECIFIED SITE 11/12/2019 JOY DO, RONAK Ot M48.07 SPINAL STENOSIS, LUMBOSACRAL REGION 11/12/2019 JOY DO, RONAK Ot N17.9 ACUTE KIDNEY FAILURE, UNSPECIFIED 11/12/2019 JOY DO, RONAK Ot R05 COUGH 11/12/2019 JOY DO, RONAK Ot R26.81 UNSTEADINESS ON FEET 11/12/2019 JOY DO, RONAK Ot R53.1 WEAKNESS 11/12/2019 JOY DO, RONAK Ot T50.2X 5A ADVRS EFF OF CRBNC-ANHYDR INHIBTR, BENZO 11/12/2019 JOY DO, RONAK Ot Z66 DO NOT RESUSCITATE 11/12/2019 BENITA ESTRADA RONAK Ot Z87.89 1 PERSONAL HISTORY OF NICOTINE DEPENDENCE 11/12/2019 BENITA ESTRADA RONAK Ot Z95.1 PRESENCE OF AORTOCORONARY BYPASS GRAFT 11/13/2019 BENITA ESTRADA RONAK Ot E78.00 PURE HYPERCHOLESTEROLEMIA, UNSPECIFIED 11/13/2019 BENITA ESTRADA, RONAK Ot E86.9 VOLUME DEPLETION, UNSPECIFIED 11/13/2019 BENITA ESTRADA, RONAK Ot F32.9 MAJOR DEPRESSIVE DISORDER, SINGLE EPISOD 11/13/2019 BENITA ESTRADA, RONAK Ot G40.90 9 EPILEPSY, UNSP, NOT INTRACTABLE, WITHOUT 11/13/2019 BENITA ESTRADA, RONAK Ot G62.9 POLYNEUROPATHY, UNSPECIFIED 11/13/2019 BENITA ESTRADA RONAK Ot I11.0 HYPERTENSIVE HEART DISEASE WITH HEART FA 11/13/2019 BENITA ESTRADA RONAK Ot I25.10 ATHSCL HEART DISEASE OF [place] CORONARY 11/13/2019 BENITA ESTRADA RONAK Ot I25.5 ISCHEMIC CARDIOMYOPATHY 11/13/2019 BENITA ESTRADA RONAK Ot I48.91 UNSPECIFIED ATRIAL FIBRILLATION 11/13/2019 BENITA ESTRADA, RONAK Ot I50.23 ACUTE ON CHRONIC SYSTOLIC (CONGESTIVE) H 11/13/2019 BENITA ESTRADA, RONAK Ot I65.23 OCCLUSION AND STENOSIS OF [place] 11/13/2019 BENITA ESTRADA, RONAK Ot 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 11/13/2019 BENITA ESTRADA, RONAK Ot I70.0 ATHEROSCLEROSIS OF [place] 11/13/2019 BENITA ESTRADA RONAK Ot J10.1 FLU DUE TO [facility] IDENT INFLUENZA VIRUS W O 11/13/2019 BENITA ESTRADA, RONAK Ot J30.2 OTHER SEASONAL ALLERGIC RHINITIS 11/13/2019 BENITA ESTRADA, RONAK Ot J44.1 CHRONIC OBSTRUCTIVE PULMONARY DISEASE W 11/13/2019 BENITA ESTRADA RONAK Ot J96.21 ACUTE AND CHRONIC RESPIRATORY FAILURE [place] 11/13/2019 BENITA ESTRADA RONAK Ot 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 11/13/2019 BENITA ESTRADA, RONAK Ot M19.91 PRIMARY OSTEOARTHRITIS, UNSPECIFIED SITE 11/13/2019 BENITA ESTRADA RONAK Ot M48.07 SPINAL STENOSIS, LUMBOSACRAL REGION 11/13/2019 JOY DO, RONAK Ot N17.9 ACUTE KIDNEY FAILURE, UNSPECIFIED 11/13/2019 JOY DO, RONAK Ot R05 COUGH 11/13/2019 JOY DO, RONAK Ot R26.81 UNSTEADINESS ON FEET 11/13/2019 JOY DO, RONAK Ot R53.1 WEAKNESS 11/13/2019 JOY DO, RONAK Ot T50.2X 5A ADVRS EFF OF CRBNC-ANHYDR INHIBTR, BENZO 11/13/2019 JOY DO, RONAK Ot Z66 DO NOT RESUSCITATE 11/13/2019 JOY DO, RONAK Ot Z87.89 1 PERSONAL HISTORY OF NICOTINE DEPENDENCE 11/13/2019 JOY DO, RONAK Ot Z95.1 PRESENCE OF AORTOCORONARY BYPASS GRAFT 11/13/2019 JOY DO, RONAK Ot E03.9 HYPOTHYROIDISM, UNSPECIFIED 11/13/2019 JOY DO, ROANK Ot E78.5 HYPERLIPIDEMIA, UNSPECIFIED 11/13/2019 JOY DO, RONAK Ot E86.9 VOLUME DEPLETION, UNSPECIFIED 11/13/2019 JOY DO, RONAK Ot E87.1 HYPO-OSMOLALITY AND HYPONATREMIA 11/13/2019 JOY DO, RONAK Ot F32.9 MAJOR DEPRESSIVE DISORDER, SINGLE EPISOD 11/13/2019 JOY DO, RONAK Ot F41.9 ANXIETY DISORDER, UNSPECIFIED 11/13/2019 JOY DO, RONAK Ot G40.90 9 EPILEPSY, UNSP, NOT INTRACTABLE, WITHOUT 11/13/2019 JOY DO, RONAK Ot G72.89 OTHER SPECIFIED MYOPATHIES 11/13/2019 JOY DO, RONAK Ot I08.1 RHEUMATIC DISORDERS OF BOTH [place] AND T 11/13/2019 JOY DO, RONAK Ot I13.0 HYP HRT CHR KDNY DIS W HRT FAIL AND ST 11/13/2019 JOY DO, RONAK Ot I25.10 ATHSCL HEART DISEASE OF [place] CORONARY 11/13/2019 JOY DO, RONAK Ot I25.5 ISCHEMIC CARDIOMYOPATHY 11/13/2019 JOY DO, RONAK Ot I50.23 ACUTE ON CHRONIC SYSTOLIC (CONGESTIVE) H 11/13/2019 JOY DO, RONAK Ot I65.23 OCCLUSION AND STENOSIS OF [place] 11/13/2019 JOY DO, RONAK Ot 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 11/13/2019 JOY DO, RONAK Ot J06.9 ACUTE UPPER RESPIRATORY INFECTION, UNSPE 11/13/2019 JOY DO, RONAK Ot J43.9 EMPHYSEMA, UNSPECIFIED 11/13/2019 JOY DO, RONAK Ot J96.91 RESPIRATORY FAILURE, UNSPECIFIED WITH HY 11/13/2019 JOY DO, RONAK Ot 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 11/13/2019 JOY DO, RONAK Ot M48.07 SPINAL STENOSIS, LUMBOSACRAL REGION 11/13/2019 JOY DO, RONAK Ot N18.9 CHRONIC KIDNEY DISEASE, UNSPECIFIED 11/13/2019 JOY DO, RONAK Ot N28.9 DISORDER OF KIDNEY AND URETER, UNSPECIFI 11/13/2019 JOY DO, RONAK Ot T50.2X 5A ADVRS EFF OF CRBNC-ANHYDR INHIBTR, BENZO 11/13/2019 JOY DO, RONAK Ot Z95.0 PRESENCE OF CARDIAC PACEMAKER 11/13/2019 JOY DO, RONAK Ot Z95.1 PRESENCE OF AORTOCORONARY BYPASS GRAFT 11/13/2019 JOY DO, RONAK Ot 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 11/13/2019 JOY DO, RONAK Ot Z99.81 DEPENDENCE ON SUPPLEMENTAL OXYGEN 11/13/2019 JOY DO, RONAK Ot E78.00 PURE HYPERCHOLESTEROLEMIA, UNSPECIFIED 11/13/2019 JOY DO, RONAK Ot E86.9 VOLUME DEPLETION, UNSPECIFIED 11/13/2019 JOY DO, RONAK Ot F32.9 MAJOR DEPRESSIVE DISORDER, SINGLE EPISOD 11/13/2019 JOY DO, RONAK Ot G40.90 9 EPILEPSY, UNSP, NOT INTRACTABLE, WITHOUT 11/13/2019 JOY DO, RONAK Ot G62.9 POLYNEUROPATHY, UNSPECIFIED 11/13/2019 JOY DO, RONAK Ot G89.29 OTHER CHRONIC PAIN 11/13/2019 JOY DO, RONAK Ot H91.90 UNSPECIFIED HEARING LOSS, UNSPECIFIED EA 11/13/2019 JOY DO, RONAK Ot I11.0 HYPERTENSIVE HEART DISEASE WITH HEART FA 11/13/2019 JOY DO, RONAK Ot I21.4 NON-ST ELEVATION (NSTEMI) MYOCARDIAL INF 11/13/2019 JOY DO, RONAK Ot I25.10 ATHSCL HEART DISEASE OF [place] CORONARY 11/13/2019 JOY DO, RONAK Ot I25.5 ISCHEMIC CARDIOMYOPATHY 11/13/2019 JOY DO, RONAK Ot I48.91 UNSPECIFIED ATRIAL FIBRILLATION 11/13/2019 JOY DO, RONAK Ot I50.23 ACUTE ON CHRONIC SYSTOLIC (CONGESTIVE) H 11/13/2019 JOY DO, RONAK Ot I65.23 OCCLUSION AND STENOSIS OF [place] 11/13/2019 JOY DO, RONAK Ot 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 11/13/2019 JOY DO, RONAK Ot I70.0 ATHEROSCLEROSIS OF [place] 11/13/2019 JOY DO, RONAK Ot J10.1 FLU DUE TO OT IDENT INFLUENZA VIRUS W O 11/13/2019 JOY DO, RONAK Ot J30.2 OTHER SEASONAL ALLERGIC RHINITIS 11/13/2019 JOY DO, RONAK Ot J43.9 EMPHYSEMA, UNSPECIFIED 11/13/2019 JOY DO, RONAK Ot J96.21 ACUTE AND CHRONIC RESPIRATORY FAILURE [place] 11/13/2019 JOY DO, RONAK Ot 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 11/13/2019 JOY DO, RONAK Ot M19.91 PRIMARY OSTEOARTHRITIS, UNSPECIFIED SITE 11/13/2019 JOY DO, RONAK Ot M48.07 SPINAL STENOSIS, LUMBOSACRAL REGION 11/13/2019 JOY DO, RONAK Ot N17.9 ACUTE KIDNEY FAILURE, UNSPECIFIED 11/13/2019 OJY DO, RONAK Ot R05 COUGH 11/13/2019 JOY DO, RONAK Ot R26.81 UNSTEADINESS ON FEET 11/13/2019 JOY DO, RONAK Ot T50.2X 5A ADVRS EFF OF CRBNC-ANHYDR INHIBTR, BENZO 11/13/2019 JOY DO, RONAK Ot Z66 DO NOT RESUSCITATE 11/13/2019 JOY DO, RONAK Ot Z87.89 1 PERSONAL HISTORY OF NICOTINE DEPENDENCE 11/13/2019 JOY DO, RONAK Ot Z95.1 PRESENCE OF AORTOCORONARY BYPASS GRAFT 11/16/2019 TOMMIE GRAJEDA MD Ot J10. 1 FLU DUE TO OTH IDENT INFLUENZA VIRUS W O 11/16/2019 TOMMIE GRAJEDA MD Ot J96. 01 ACUTE RESPIRATORY FAILURE WITH HYPOXIA 11/16/2019 TOMMIE GRAJEDA MD Ot Z66 DO NOT RESUSCITATE 11/16/2019 JULISSA VASQUEZ MD Ot R27.9 UNSPECIFIED LACK OF COORDINATION 11/16/2019 JULISSA VASQUEZ MD Ot R53.1 WEAKNESS 11/18/2019 LLUVIA ALMONTE MD Ot Z29. 8 ENCOUNTER FOR OTHER SPECIFIED PROPHYLACT 11/19/2019 JULISSA VASQUEZ MD Ot R27.9 UNSPECIFIED LACK OF COORDINATION 11/19/2019 JULISSA VASQUEZ MD Ot R53.1 WEAKNESS 11/20/2019 JULISSA VASQUEZ MD Ot R26.8 1 UNSTEADINESS ON FEET 11/20/2019 JULISSA VASQUEZ MD Ot R53.1 WEAKNESS 11/20/2019 JULISSA VASQUEZ MD Ot Z91.8 1 HISTORY OF FALLING 11/25/2019 JULISSA VASQUEZ MD Ot R26.8 1 UNSTEADINESS ON FEET 11/25/2019 JULISSA VASQUEZ MD Ot R53.1 WEAKNESS 11/25/2019 JULISSA VASQUEZ MD Ot Z91.8 1 HISTORY OF FALLING Procedures Code Description Performed By Per john On 33.24 ENDO SCOPIC BRONCHIAL BX 10/19/2009 96.04 10/03/2012 96.71 10/03/2012 Results Test Result Range Complete blood count (CBC) with automate d white blood cell (WBC) differential - 03/13/19 00:12 Blood leukocytes automated count (number/volume) 7.0 10*3/uL 4.3-11.0 Blood erythrocytes automated count (number/volume) 4.29 10*6/uL 4.35-5.85 Venous blood hemoglobin measurement (mass/volume) 13.6 g/dL 13.3-17.7 Blood hematocrit (volume fraction) 40 % 40-54 Automated erythrocyte mean corpuscular volume 93 [ foz_us] 80-99 Automated erythrocyte mean corpuscular h emoglobin (mass per erythrocyte) 32 pg 25-34 Automated erythrocyte mean corpuscular h emoglobin concentration measurement (mass/volume) 34 g/dL 32-36 Automated erythrocyte distribution width ratio 13. 7 % 10.0- 14.5 Automated blood platelet count [...] 10*3 1.0-4.0 Blood monocytes automated count (number/volume) 1. 0 10*3 0.0-1.0 Automated eosinophil count 0.2 10*3/uL 0 .0-0.3 Automated blood basophil count (count/volume) 0.0 10*3/uL 0.0-0.1 Comprehensive metabolic panel - 03/13/19 00:12 Serum or plasma sodium measurement (moles/volume) 136 mmol/L 135-145 Serum or plasma potassium measurement (moles/volume) 4.2 mmol/L 3.6-5.0 Serum or plasma chloride measurement (moles/volume) 102 mmol/L 98-107 Carbon dioxide 20 mmol/L 21-32 Serum or plasma anion gap determination (moles/volume) 14 mmol/L 5-14 Serum or plasma urea nitrogen measurement (mass/volume ) 23 mg/dL 7-18 Serum or plasma creatinine measurement (mass/volume) 1.13 mg/dL 0.60-1.30 Serum or plasma urea nitrogen/creatinine mass ratio 20 NRG Serum or plasma creatinine measurement w ith calculation of estimated glomerular filtration rate > NRG Serum or plasma glucose measurement (mass/volume) 128 mg/dL 70-105 Serum or plasma calcium measurement (mass/volume) 9.3 mg/dL 8.5-10.1 Serum or plasma total bilirubin measurement (mass/volu me) 0.3 mg/dL 0.1-1.0 Serum or plasma alkaline phosphatase giovanni surement (enzymatic activity/volume) 158 U/L 40-136 Serum or plasma aspartate aminotransfera se measurement (enzymatic activity/volume) 22 U/L 5-34 Serum or plasma alanine aminotransferase measurement (enzymatic activity/volume) 27 U/L 0-55 Serum or plasma protein measurement (mass/volume) 8.4 g/dL 6.4-8.2 Serum or plasma albumin measurement (mass/volume) 3.9 g/dL 3.2-4.5 CALCIUM CORRECTED 9.4 mg/dL 8.5-10.1 Magnesium - 07/12/19 00:12 Magnesium 2.3 mg/dL 1.8-2.4 Automated blood complete blood count (he mogram) panel - 05/29/19 15:55 Blood leukocytes automated count (number/volume) 6.0 10*3/uL 4.3-11.0 Blood erythrocytes automated count (number/volume) 4.24 10*6/uL 4.35-5.85 Venous blood hemoglobin measurement (mass/volume) 13.3 g/dL 13.3-17.7 Blood hematocrit (volume fraction) 39 % 40-54 Automated erythrocyte mean corpuscular volume 93 [ foz_us] 80-99 Automated erythrocyte mean corpuscular h emoglobin (mass per erythrocyte) 31 pg 25-34 Automated erythrocyte mean corpuscular h emoglobin concentration measurement (mass/volume) 34 g/dL 32-36 Automated erythrocyte distribution width ratio 13. 7 % 10.0- 14.5 Automated blood platelet count (count/volume) 192 10*3/uL 130-400 Automated blood platelet mean volume measurement 9.7 [foz_us] 7.4-10.4 Comprehensive metabolic panel - 05/29/19 15:55 Serum or plasma sodium measurement (moles/volume) 136 mmol/L 135-145 Serum or plasma potassium measurement (moles/volume) 4.7 mmol/L 3.6-5.0 Serum or plasma chloride measurement (moles/volume) 100 mmol/L 98-107 Carbon dioxide 29 mmol/L 21-32 Serum or plasma anion gap determination (moles/volume) 7 mmol/L 5-14 Serum or plasma urea nitrogen measurement (mass/volume ) 23 mg/dL 7-18 Serum or plasma creatinine measurement (mass/volume) 0.87 mg/dL 0.60-1.30 Serum or plasma urea nitrogen/creatinine mass ratio 26 NRG Serum or plasma creatinine measurement w ith calculation of estimated glomerular filtration rate > NRG Serum or plasma glucose measurement (mass/volume) 91 mg/dL 70-105 Serum or plasma calcium measurement (mass/volume) 9.1 mg/dL 8.5-10.1 Serum or plasma total bilirubin measurement (mass/volu me) 0.4 mg/dL 0.1-1.0 Serum or plasma alkaline phosphatase giovanni surement (enzymatic activity/volume) 153 U/L 40-136 Serum or plasma aspartate aminotransfera se measurement (enzymatic activity/volume) 17 U/L 5-34 Serum or plasma alanine aminotransferase measurement (enzymatic activity/volume) 21 U/L 0-55 Serum or plasma protein measurement (mass/volume) 8.2 g/dL 6.4-8.2 Serum or plasma albumin measurement (mass/volume) 4.0 g/dL 3.2-4.5 CALCIUM CORRECTED 9.1 mg/dL 8.5-10.1 THYROID STIMULATING HORMONE - 05/29/19 1 5:55 THYROID STIMULATING HORMONE 1.10 u[iU]/mL 0.35-4.94 Complete urinalysis with reflex to cultu re - 05/29/19 16:04 Urine color determination YELLOW NRG Urine clarity determination CLEAR NR G Urine pH measurement by test strip 6.5 5-9 Specific gravity of urine by test strip 1.010 1.016-1.022 Urine protein assay by test strip, semi-quantitative NEGATIVE NEGATIVE Urine glucose detection by automated test strip NE GATIVE NEGATIVE Erythrocytes detection in urine sediment by light micr oscopy 1+ NEGATIVE Urine ketones detection by automated test strip NE GATIVE NEGATIVE Urine nitrite detection by test strip NEGATIVE NEGATIVE Urine total bilirubin detection by test strip NEGA TIVE NEGATIVE Urine urobilinogen measurement by automated test strip (mass/volume) NORMAL NORMAL Urine leukocyte esterase detection by dipstick NEG ATIVE NEGATIVE Automated urine sediment erythrocyte cou nt by microscopy (number/high power field) RARE NRG Automated urine sediment leukocyte count by microscopy (number/high power field) NONE NRG Bacteria detection in urine sediment by light microsco py TRACE NRG Squamous epithelial cells detection in u rine sediment by light microscopy RARE NRG Crystals detection in urine sediment by light microsco py NONE NRG Casts detection in urine sediment by light microscopy PRESENT NRG Mucus detection in urine sediment by light microscopy NEGATIVE NRG Complete urinalysis with reflex to culture NO NRG Hyaline casts detection in urine sediment by light easton roscopy RARE NRG Influenza virus A and B antigen detectio n - 11/02/19 16:20 FLU RESULT NEGATIVE FOR INFLUENZA A AND B ANTIGENS BY IA NRG Complete blood count (CBC) with automate d white blood cell (WBC) differential - 11/02/19 16:35 Blood leukocytes automated count (number/volume) 7.5 10*3/uL 4.3-11.0 Blood erythrocytes automated count (number/volume) 4.12 10*6/uL 4.35-5.85 Venous blood hemoglobin measurement (mass/volume) 13.0 g/dL 13.3-17.7 Blood hematocrit (volume fraction) 39 % 40-54 Automated erythrocyte mean corpuscular volume 94 [ foz_us] 80-99 Automated erythrocyte mean corpuscular h emoglobin (mass per erythrocyte) 32 pg 25-34 Automated erythrocyte mean corpuscular h emoglobin concentration measurement (mass/volume) 33 g/dL 32-36 Automated erythrocyte distribution width ratio 14. 1 % 10.0- 14.5 Automated blood platelet count (count/volume) 177 10*3/uL 130-400 Automated blood platelet mean volume measurement 10.3 [foz_us] 7.4-10.4 Automated blood neutrophils/100 leukocytes 79 % 42-75 Automated blood lymphocytes/100 leukocytes 9 % 12-44 Blood monocytes/100 leukocytes 11 % 0-12 Automated blood eosinophils/100 leukocytes 2 % 0-10 Automated blood basophils/100 leukocytes 0 % 0-10 Blood neutrophils automated count (number/volume) 5.9 10*3 1.8-7.8 Blood lymphocytes automated count (number/volume) 0.6 10*3 1.0-4.0 Blood monocytes automated count (number/volume) 0. 8 10*3 0.0-1.0 Automated eosinophil count 0.2 10*3/uL 0 .0-0.3 Automated blood basophil count (count/volume) 0.0 10*3/uL 0.0-0.1 Fibrin D-dimer FEU measurement in platel et poor plasma (mass/volume) - 11/02/19 16:35 Fibrin D-dimer FEU measurement in platelet poor plasma (mass/volume) 1.43 ug/mL 0.00-0.49 Comprehensive metabolic panel - 11/02/19 16:35 Serum or plasma sodium measurement (moles/volume) 136 mmol/L 135-145 Serum or plasma potassium measurement (moles/volume) 4.4 mmol/L 3.6-5.0 Serum or plasma chloride measurement (moles/volume) 102 mmol/L 98-107 Carbon dioxide 25 mmol/L 21-32 Serum or plasma anion gap determination (moles/volume) 9 mmol/L 5-14 Serum or plasma urea nitrogen measurement (mass/volume ) 22 mg/dL 7-18 Serum or plasma creatinine measurement (mass/volume) 1.00 mg/dL 0.60-1.30 Serum or plasma urea nitrogen/creatinine mass ratio 22 NRG Serum or plasma creatinine measurement w ith calculation of estimated glomerular filtration rate > NRG Serum or plasma glucose measurement (mass/volume) 106 mg/dL 70-105 Serum or plasma calcium measurement (mass/volume) 8.8 mg/dL 8.5-10.1 Serum or plasma total bilirubin measurement (mass/volu me) 0.3 mg/dL 0.1-1.0 Serum or plasma alkaline phosphatase giovanni surement (enzymatic activity/volume) 195 U/L 40-136 Serum or plasma aspartate aminotransfera se measurement (enzymatic activity/volume) 43 U/L 5-34 Serum or plasma alanine aminotransferase measurement (enzymatic activity/volume) 40 U/L 0-55 Serum or plasma protein measurement (mass/volume) 8.7 g/dL 6.4-8.2 Serum or plasma albumin measurement (mass/volume) 4.0 g/dL 3.2-4.5 CALCIUM CORRECTED 8.8 mg/dL 8.5-10.1 Serum or plasma troponin i.cardiac measu rement (mass/volume) - 11/02/19 16:35 Serum or plasma troponin i.cardiac measurement (mass/v olume) 0.029 ng/mL <0.028 Serum or plasma lithium measurement (mol es/volume) - 11/02/19 16:35 BNP PT 479.4 pg/mL <100.0 Bacterial blood culture - 11/02/19 16:40 Bacterial blood culture NG NRG Bacterial blood culture - 11/02/19 17:05 Bacterial blood culture NG NRG Serum or plasma troponin i.cardiac measu rement (mass/volume) - 11/02/19 18:30 Serum or plasma troponin i.cardiac measurement (mass/v olume) 0.041 ng/mL <0.028 [id number] - 11/02/19 18:30 [id number] 0.69 ng/mL 0.80-2.00 Serum or plasma lithium measurement (mol es/volume) - 11/03/19 06:18 BNP PT 613.6 pg/mL <100.0 Complete blood count (CBC) with automate d white blood cell (WBC) differential - 11/03/19 10:20 Blood leukocytes automated count (number/volume) 8.1 10*3/uL 4.3-11.0 Blood erythrocytes automated count (number/volume) 4.38 10*6/uL 4.35-5.85 Venous blood hemoglobin measurement (mass/volume) 13.8 g/dL 13.3-17.7 Blood hematocrit (volume fraction) 41 % 40-54 Automated erythrocyte mean corpuscular volume 94 [ foz_us] 80-99 Automated erythrocyte mean corpuscular h emoglobin (mass per erythrocyte) 32 pg 25-34 Automated erythrocyte mean corpuscular h emoglobin concentration measurement (mass/volume) 33 g/dL 32-36 Automated erythrocyte distribution width ratio 14. 2 % 10.0- 14.5 Automated blood platelet count (count/volume) 181 10*3/uL 130-400 Automated blood platelet mean volume measurement 10.5 [foz_us] 7.4-10.4 Automated blood neutrophils/100 leukocytes 87 % 42-75 Automated blood lymphocytes/100 leukocytes 4 % 12-44 Blood monocytes/100 leukocytes 10 % 0-12 Automated blood eosinophils/100 leukocytes 0 % 0-10 Automated blood basophils/100 leukocytes 0 % 0-10 Blood neutrophils automated count (number/volume) 7.0 10*3 1.8-7.8 Blood lymphocytes automated count (number/volume) 0.3 10*3 1.0-4.0 Blood monocytes automated count (number/volume) 0. 8 10*3 0.0-1.0 Automated eosinophil count 0.0 10*3/uL 0 .0-0.3 Automated blood basophil count (count/volume) 0.0 10*3/uL 0.0-0.1 Whole blood basic metabolic panel - 11/19 10:20 Serum or plasma sodium measurement (moles/volume) 135 mmol/L 135-145 Serum or plasma potassium measurement (moles/volume) 4.4 mmol/L 3.6-5.0 Serum or plasma chloride measurement (moles/volume) 100 mmol/L 98-107 Carbon dioxide 24 mmol/L 21-32 Serum or plasma anion gap determination (moles/volume) 11 mmol/L 5-14 Serum or plasma urea nitrogen measurement (mass/volume ) 30 mg/dL 7-18 Serum or plasma creatinine measurement (mass/volume) 1.12 mg/dL 0.60-1.30 Serum or plasma urea nitrogen/creatinine mass ratio 27 NRG Serum or plasma creatinine measurement w ith calculation of estimated glomerular filtration rate > NRG Serum or plasma glucose measurement (mass/volume) 143 mg/dL 70-105 Serum or plasma calcium measurement (mass/volume) 9.6 mg/dL 8.5-10.1 [id number] - 11/03/19 10:20 [id number] 0.44 ng/mL 0.80-2.00 PROCALCITONIN (PCT) - 11/03/19 10:20 PROCALCITONIN (PCT) 0.10 ng/mL <0.10 Serum or plasma troponin i.cardiac measu rement (mass/volume) - 11/03/19 10:20 Serum or plasma troponin i.cardiac measurement (mass/v olume) 0.057 ng/mL <0.028 DILANTIN (PHENYTOIN) - 11/03/19 10:20 DILANTIN PHEN 11.9 % 10.0-20.0 Whole blood basic metabolic panel - 12/20 05:22 Serum or plasma sodium measurement (moles/volume) 136 mmol/L 135-145 Serum or plasma potassium measurement (moles/volume) 4.0 mmol/L 3.6-5.0 Serum or plasma chloride measurement (moles/volume) 99 mmol/L 98-107 Carbon dioxide 27 mmol/L 21-32 Serum or plasma anion gap determination (moles/volume) 10 mmol/L 5-14 Serum or plasma urea nitrogen measurement (mass/volume ) 42 mg/dL 7-18 Serum or plasma creatinine measurement (mass/volume) 1.56 mg/dL 0.60-1.30 Serum or plasma urea nitrogen/creatinine mass ratio 27 NRG Serum or plasma creatinine measurement w ith calculation of estimated glomerular filtration rate 43 NRG Serum or plasma glucose measurement (mass/volume) 96 mg/dL 70-105 Serum or plasma calcium measurement (mass/volume) 8.9 mg/dL 8.5-10.1 Magnesium - 11/04/19 05:22 Magnesium 2.2 mg/dL 1.6-2.4 Whole blood basic metabolic panel - 01/19 05:54 Serum or plasma sodium measurement (moles/volume) 136 mmol/L 135-145 Serum or plasma potassium measurement (moles/volume) 4.1 mmol/L 3.6-5.0 Serum or plasma chloride measurement (moles/volume) 99 mmol/L 98-107 Carbon dioxide 26 mmol/L 21-32 Serum or plasma anion gap determination (moles/volume) 11 mmol/L 5-14 Serum or plasma urea nitrogen measurement (mass/volume ) 48 mg/dL 7-18 Serum or plasma creatinine measurement (mass/volume) 1.21 mg/dL 0.60-1.30 Serum or plasma urea nitrogen/creatinine mass ratio 40 NRG Serum or plasma creatinine measurement w ith calculation of estimated glomerular filtration rate 58 NRG Serum or plasma glucose measurement (mass/volume) 79 mg/dL 70-105 Serum or plasma calcium measurement (mass/volume) 9.0 mg/dL 8.5-10.1 Whole blood basic metabolic panel - 02/19 05:23 Serum or plasma sodium measurement (moles/volume) 135 mmol/L 135-145 Serum or plasma potassium measurement (moles/volume) 4.1 mmol/L 3.6-5.0 Serum or plasma chloride measurement (moles/volume) 97 mmol/L 98-107 Carbon dioxide 27 mmol/L 21-32 Serum or plasma anion gap determination (moles/volume) 11 mmol/L 5-14 Serum or plasma urea nitrogen measurement (mass/volume ) 54 mg/dL 7-18 Serum or plasma creatinine measurement (mass/volume) 1.24 mg/dL 0.60-1.30 Serum or plasma urea nitrogen/creatinine mass ratio 44 NRG Serum or plasma creatinine measurement w ith calculation of estimated glomerular filtration rate 56 NRG Serum or plasma glucose measurement (mass/volume) 111 mg/dL 70-105 Serum or plasma calcium measurement (mass/volume) 8.7 mg/dL 8.5-10.1 Complete blood count (CBC) with automate d white blood cell (WBC) differential - 11/07/19 07:02 Blood leukocytes automated count (number/volume) 5.0 10*3/uL 4.3-11.0 Blood erythrocytes automated count (number/volume) 4.25 10*6/uL 4.35-5.85 Venous blood hemoglobin measurement (mass/volume) 13.5 g/dL 13.3-17.7 Blood hematocrit (volume fraction) 40 % 40-54 Automated erythrocyte mean corpuscular volume 94 [ foz_us] 80-99 Automated erythrocyte mean corpuscular h emoglobin (mass per erythrocyte) 32 pg 25-34 Automated erythrocyte mean corpuscular h emoglobin concentration measurement (mass/volume) 34 g/dL 32-36 Automated erythrocyte distribution width ratio 13. 7 % 10.0- 14.5 Automated blood platelet count (count/volume) 140 10*3/uL 130-400 Automated blood platelet mean volume measurement 10.9 [foz_us] 7.4-10.4 Automated blood neutrophils/100 leukocytes 53 % 42-75 Automated blood lymphocytes/100 leukocytes 23 % 12-44 Blood monocytes/100 leukocytes 21 % 0-12 Automated blood eosinophils/100 leukocytes 2 % 0-10 Automated blood basophils/100 leukocytes 1 % 0-10 Blood neutrophils automated count (number/volume) 2.7 10*3 1.8-7.8 Blood lymphocytes automated count (number/volume) 1.2 10*3 1.0-4.0 Blood monocytes automated count (number/volume) 1. 1 10*3 0.0-1.0 Automated eosinophil count 0.1 10*3/uL 0 .0-0.3 Automated blood basophil count (count/volume) 0.0 10*3/uL 0.0-0.1 Comprehensive metabolic panel - 11/07/19 07:02 Serum or plasma sodium measurement (moles/volume) 133 mmol/L 135-145 Serum or plasma potassium measurement (moles/volume) 4.2 mmol/L 3.6-5.0 Serum or plasma chloride measurement (moles/volume) 96 mmol/L 98-107 Carbon dioxide 25 mmol/L 21-32 Serum or plasma anion gap determination (moles/volume) 12 mmol/L 5-14 Serum or plasma urea nitrogen measurement (mass/volume ) 60 mg/dL 7-18 Serum or plasma creatinine measurement (mass/volume) 1.14 mg/dL 0.60-1.30 Serum or plasma urea nitrogen/creatinine mass ratio 53 NRG Serum or plasma creatinine measurement w ith calculation of estimated glomerular filtration rate > NRG Serum or plasma glucose measurement (mass/volume) 106 mg/dL 70-105 Serum or plasma calcium measurement (mass/volume) 9.1 mg/dL 8.5-10.1 Serum or plasma total bilirubin measurement (mass/volu me) 0.3 mg/dL 0.1-1.0 Serum or plasma alkaline phosphatase giovanni surement (enzymatic activity/volume) 147 U/L 40-136 Serum or plasma aspartate aminotransfera se measurement (enzymatic activity/volume) 67 U/L 5-34 Serum or plasma alanine aminotransferase measurement (enzymatic activity/volume) 70 U/L 0-55 Serum or plasma protein measurement (mass/volume) 8.4 g/dL 6.4-8.2 Serum or plasma albumin measurement (mass/volume) 3.8 g/dL 3.2-4.5 CALCIUM CORRECTED 9.3 mg/dL 8.5-10.1 Manual absolute plasma cell count - 03/21 07:02 Blood monocytes/100 leukocytes 18 % NRG Manual blood segmented neutrophils/100 leukocytes 57 % NRG Blood band neutrophils/100 leukocytes 0 % NRG Manual blood lymphocytes/100 leukocytes 19 % NRG Manual eosinophils/100 leukocytes in nose 6 % NRG Manual blood basophils/100 leukocytes 0 % NRG Blood erythrocyte morphology finding identification NORMAL NR Complete blood count (CBC) with automate d white blood cell (WBC) differential - 11/09/19 05:28 Blood leukocytes automated count (number/volume) 5.7 10*3/uL 4.3-11.0 Blood erythrocytes automated count (number/volume) 4.04 10*6/uL 4.35-5.85 Venous blood hemoglobin measurement (mass/volume) 12.8 g/dL 13.3-17.7 Blood hematocrit (volume fraction) 38 % 40-54 Automated erythrocyte mean corpuscular volume 94 [ foz_us] 80-99 Automated erythrocyte mean corpuscular h emoglobin (mass per erythrocyte) 32 pg 25-34 Automated erythrocyte mean corpuscular h emoglobin concentration measurement (mass/volume) 34 g/dL 32-36 Automated erythrocyte distribution width ratio 13. 6 % 10.0- 14.5 Automated blood platelet count (count/volume) 139 10*3/uL 130-400 Automated blood platelet mean volume measurement 12.1 [foz_us] 7.4-10.4 Automated blood neutrophils/100 leukocytes 60 % 42-75 Automated blood lymphocytes/100 leukocytes 22 % 12-44 Blood monocytes/100 leukocytes 15 % 0-12 Automated blood eosinophils/100 leukocytes 2 % 0-10 Automated blood basophils/100 leukocytes 1 % 0-10 Blood neutrophils automated count (number/volume) 3.4 10*3 1.8-7.8 Blood lymphocytes automated count (number/volume) 1.3 10*3 1.0-4.0 Blood monocytes automated count (number/volume) 0. 9 10*3 0.0-1.0 Automated eosinophil count 0.1 10*3/uL 0 .0-0.3 Automated blood basophil count (count/volume) 0.0 10*3/uL 0.0-0.1 Comprehensive metabolic panel - 11/09/19 05:28 Serum or plasma sodium measurement (moles/volume) 131 mmol/L 135-145 Serum or plasma potassium measurement (moles/volume) 4.1 mmol/L 3.6-5.0 Serum or plasma chloride measurement (moles/volume) 93 mmol/L 98-107 Carbon dioxide 26 mmol/L 21-32 Serum or plasma anion gap determination (moles/volume) 12 mmol/L 5-14 Serum or plasma urea nitrogen measurement (mass/volume ) 79 mg/dL 7-18 Serum or plasma creatinine measurement (mass/volume) 1.68 mg/dL 0.60-1.30 Serum or plasma urea nitrogen/creatinine mass ratio 47 NRG Serum or plasma creatinine measurement w ith calculation of estimated glomerular filtration rate 39 NRG Serum or plasma glucose measurement (mass/volume) 100 mg/dL 70-105 Serum or plasma calcium measurement (mass/volume) 8.7 mg/dL 8.5-10.1 Serum or plasma total bilirubin measurement (mass/volu me) 0.4 mg/dL 0.1-1.0 Serum or plasma alkaline phosphatase giovanni surement (enzymatic activity/volume) 124 U/L 40-136 Serum or plasma aspartate aminotransfera se measurement (enzymatic activity/volume) 64 U/L 5-34 Serum or plasma alanine aminotransferase measurement (enzymatic activity/volume) 85 U/L 0-55 Serum or plasma protein measurement (mass/volume) 8.0 g/dL 6.4-8.2 Serum or plasma albumin measurement (mass/volume) 3.5 g/dL 3.2-4.5 CALCIUM CORRECTED 9.1 mg/dL 8.5-10.1 Arterial blood gas measurement - 0 09:05 Blood pCO2 47 mm[Hg] 35-45 Blood pO2 65 mm[Hg] 79-93 Arterial blood bicarbonate measurement (moles/volume) 29 mmol/L 23-27 Arterial blood base excess by calculation 4.7 mmol /L -2.5-2.5 Arterial blood oxygen saturation measurement 92 % 94-100 * Inhaled oxygen flow rate 3 L NRG Arterial blood pH measurement with patient temperature correction 7.41 7.37-7.43 Arterial blood carbon dioxide, total measurement (mole s/volume) 30.6 mmol/L 21.0-31.0 Body site RIGHT RADIAL NRG Assessment of wrist artery patency prior to arterial p uncture POSITIVE NRG Setting of ventilation mode NO NR G Measurement of body temperature 37.2 NRG Comprehensive metabolic panel - 11/10/19 06:55 Serum or plasma sodium measurement (moles/volume) 132 mmol/L 135-145 Serum or plasma potassium measurement (moles/volume) 4.8 mmol/L 3.6-5.0 Serum or plasma chloride measurement (moles/volume) 94 mmol/L 98-107 Carbon dioxide 27 mmol/L 21-32 Serum or plasma anion gap determination (moles/volume) 11 mmol/L 5-14 Serum or plasma urea nitrogen measurement (mass/volume ) 61 mg/dL 7-18 Serum or plasma creatinine measurement (mass/volume) 1.03 mg/dL 0.60-1.30 Serum or plasma urea nitrogen/creatinine mass ratio 59 NRG Serum or plasma creatinine measurement w ith calculation of estimated glomerular filtration rate > NRG Serum or plasma glucose measurement (mass/volume) 136 mg/dL 70-105 Serum or plasma calcium measurement (mass/volume) 8.9 mg/dL 8.5-10.1 Serum or plasma total bilirubin measurement (mass/volu me) 0.4 mg/dL 0.1-1.0 Serum or plasma alkaline phosphatase giovanni surement (enzymatic activity/volume) 132 U/L 40-136 Serum or plasma aspartate aminotransfera se measurement (enzymatic activity/volume) 88 U/L 5-34 Serum or plasma alanine aminotransferase measurement (enzymatic activity/volume) 125 U/L 0-55 Serum or plasma protein measurement (mass/volume) 8.7 g/dL 6.4-8.2 Serum or plasma albumin measurement (mass/volume) 3.6 g/dL 3.2-4.5 CALCIUM CORRECTED 9.2 mg/dL 8.5-10.1 Serum or plasma phosphate measurement (m ass/volume) - 11/10/19 06:55 Serum or plasma phosphate measurement (mass/volume) 2.1 mg/dL 2.3-4.7 Magnesium - 11/10/19 06:55 Magnesium 2.2 mg/dL 1.6-2.4 Bacterial blood culture - 11/10/19 06:55 Bacterial blood culture NG NRG PROCALCITONIN (PCT) - 11/10/19 06:56 PROCALCITONIN (PCT) 0.16 ng/mL <0.10 Complete blood count (CBC) with automate d white blood cell (WBC) differential - 11/10/19 07:30 Blood leukocytes automated count (number/volume) 11.1 10*3/uL 4.3-11.0 Blood erythrocytes automated count (number/volume) 4.36 10*6/uL 4.35-5.85 Venous blood hemoglobin measurement (mass/volume) 13.8 g/dL 13.3-17.7 Blood hematocrit (volume fraction) 41 % 40-54 Automated erythrocyte mean corpuscular volume 93 [ foz_us] 80-99 Automated erythrocyte mean corpuscular h emoglobin (mass per erythrocyte) 32 pg 25-34 Automated erythrocyte mean corpuscular h emoglobin concentration measurement (mass/volume) 34 g/dL 32-36 Automated erythrocyte distribution width ratio 13. 6 % 10.0- 14.5 Automated blood platelet count (count/volume) 163 10*3/uL 130-400 Automated blood platelet mean volume measurement 11.3 [foz_us] 7.4-10.4 Automated blood neutrophils/100 leukocytes 81 % 42-75 Automated blood lymphocytes/100 leukocytes 7 % 12-44 Blood monocytes/100 leukocytes 12 % 0-12 Automated blood eosinophils/100 leukocytes 0 % 0-10 Automated blood basophils/100 leukocytes 0 % 0-10 Blood neutrophils automated count (number/volume) 8.9 10*3 1.8-7.8 Blood lymphocytes automated count (number/volume) 0.8 10*3 1.0-4.0 Blood monocytes automated count (number/volume) 1. 3 10*3 0.0-1.0 Automated eosinophil count 0.0 10*3/uL 0 .0-0.3 Automated blood basophil count (count/volume) 0.0 10*3/uL 0.0-0.1 Blood lactic acid measurement (moles/vol ume) - 11/10/19 07:30 Blood lactic acid measurement (moles/volume) 0.85 mmol/L 0.50-2.00 Serum or plasma lithium measurement (mol es/volume) - 11/10/19 07:30 BNP PT 257.9 pg/mL <100.0 Bacterial blood culture - 11/10/19 07:30 Bacterial blood culture NG NRG Arterial blood gas measurement - 0 08:38 Blood pCO2 41 mm[Hg] 35-45 Blood pO2 62 mm[Hg] 79-93 Arterial blood bicarbonate measurement (moles/volume) 29 mmol/L 23-27 Arterial blood base excess by calculation 5.5 mmol /L -2.5-2.5 Arterial blood oxygen saturation measurement 94 % 94-100 * Inhaled oxygen flow rate 5L NASAL CANULA NRG Arterial blood pH measurement with patient temperature correction 7.46 7.37-7.43 Arterial blood carbon dioxide, total measurement (mole s/volume) 30.5 mmol/L 21.0-31.0 Body site RT RADIAL NRG Assessment of wrist artery patency prior to arterial p uncture YES-POS NRG Setting of ventilation mode NO NR G Measurement of body temperature 37.0 NRG Methicillin resistant Staphylococcus aur eus (MRSA) screening culture - 11/10/19 09:44 Methicillin resistant Staphylococcus aureus (MRSA) scr eening culture NEG NRG Influenza virus A and B antigen detectio n - 11/10/19 10:05 CALL POSITIVES (F1 HELP) CALLED TO [facility] AT 1100 NRG FLU RESULT POSITIVE FOR INFLUENZA B ANT IGEN, NEG FOR A ANTIGEN, BY IA NRG Serum or plasma troponin i.cardiac measu rement (mass/volume) - 11/10/19 12:15 Serum or plasma troponin i.cardiac measurement (mass/v olume) 0.040 ng/mL <0.028 Serum or plasma troponin i.cardiac measu rement (mass/volume) - 11/10/19 18:40 Serum or plasma troponin i.cardiac measurement (mass/v olume) 0.035 ng/mL <0.028 Serum or plasma troponin i.cardiac measu rement (mass/volume) - 11/10/19 23:53 Serum or plasma troponin i.cardiac measurement (mass/v olume) 0.032 ng/mL <0.028 Complete blood count (CBC) with automate d white blood cell (WBC) differential - 11/11/19 02:29 Blood leukocytes automated count (number/volume) 6.2 10*3/uL 4.3-11.0 Blood erythrocytes automated count (number/volume) 4.08 10*6/uL 4.35-5.85 Venous blood hemoglobin measurement (mass/volume) 12.7 g/dL 13.3-17.7 Blood hematocrit (volume fraction) 38 % 40-54 Automated erythrocyte mean corpuscular volume 94 [ foz_us] 80-99 Automated erythrocyte mean corpuscular h emoglobin (mass per erythrocyte) 31 pg 25-34 Automated erythrocyte mean corpuscular h emoglobin concentration measurement (mass/volume) 33 g/dL 32-36 Automated erythrocyte distribution width ratio 13. 4 % 10.0- 14.5 Automated blood platelet count (count/volume) 152 10*3/uL 130-400 Automated blood platelet mean volume measurement 11.5 [foz_us] 7.4-10.4 Automated blood neutrophils/100 leukocytes 79 % 42-75 Automated blood lymphocytes/100 leukocytes 11 % 12-44 Blood monocytes/100 leukocytes 9 % 0-12 Automated blood eosinophils/100 leukocytes 0 % 0-10 Automated blood basophils/100 leukocytes 0 % 0-10 Blood neutrophils automated count (number/volume) 4.9 10*3 1.8-7.8 Blood lymphocytes automated count (number/volume) 0.7 10*3 1.0-4.0 Blood monocytes automated count (number/volume) 0. 6 10*3 0.0-1.0 Automated eosinophil count 0.0 10*3/uL 0 .0-0.3 Automated blood basophil count (count/volume) 0.0 10*3/uL 0.0-0.1 Comprehensive metabolic panel - 11/11/19 02:29 Serum or plasma sodium measurement (moles/volume) 133 mmol/L 135-145 Serum or plasma potassium measurement (moles/volume) 4.8 mmol/L 3.6-5.0 Serum or plasma chloride measurement (moles/volume) 95 mmol/L 98-107 Carbon dioxide 25 mmol/L 21-32 Serum or plasma anion gap determination (moles/volume) 13 mmol/L 5-14 Serum or plasma urea nitrogen measurement (mass/volume ) 56 mg/dL 7-18 Serum or plasma creatinine measurement (mass/volume) 1.04 mg/dL 0.60-1.30 Serum or plasma urea nitrogen/creatinine mass ratio 54 NRG Serum or plasma creatinine measurement w ith calculation of estimated glomerular filtration rate > NRG Serum or plasma glucose measurement (mass/volume) 112 mg/dL 70-105 Serum or plasma calcium measurement (mass/volume) 8.8 mg/dL 8.5-10.1 Serum or plasma total bilirubin measurement (mass/volu me) 0.5 mg/dL 0.1-1.0 Serum or plasma alkaline phosphatase giovanni surement (enzymatic activity/volume) 113 U/L 40-136 Serum or plasma aspartate aminotransfera se measurement (enzymatic activity/volume) 72 U/L 5-34 Serum or plasma alanine aminotransferase measurement (enzymatic activity/volume) 112 U/L 0-55 Serum or plasma protein measurement (mass/volume) 7.9 g/dL 6.4-8.2 Serum or plasma albumin measurement (mass/volume) 3.3 g/dL 3.2-4.5 CALCIUM CORRECTED 9.4 mg/dL 8.5-10.1 Serum or plasma phosphate measurement (m ass/volume) - 11/11/19 02:29 Serum or plasma phosphate measurement (mass/volume) 4.0 mg/dL 2.3-4.7 Magnesium - 11/11/19 02:29 Magnesium 2.5 mg/dL 1.6-2.4 Complete urinalysis with reflex to cultu re - 11/11/19 06:52 Urine color determination YELLOW NRG Urine clarity determination CLEAR NR G Urine pH measurement by test strip 6.0 5-9 Specific gravity of urine by test strip 1.015 1.016-1.022 Urine protein assay by test strip, semi-quantitative TRACE NEGATIVE Urine glucose detection by automated test strip NE GATIVE NEGATIVE Erythrocytes detection in urine sediment by light micr oscopy 3+ NEGATIVE Urine ketones detection by automated test strip NE GATIVE NEGATIVE Urine nitrite detection by test strip NEGATIVE NEGATIVE Urine total bilirubin detection by test strip NEGA TIVE NEGATIVE Urine urobilinogen measurement by automated test strip (mass/volume) 0.2 mg/dL < = 1.0 Urine leukocyte esterase detection by dipstick 1+ NEGATIVE Automated urine sediment erythrocyte cou nt by microscopy (number/high power field) [HPF] NRG Automated urine sediment leukocyte count by microscopy (number/high power field) [HPF] NRG Bacteria detection in urine sediment by light microsco py TRACE NRG Crystals detection in urine sediment by light microsco py NONE NRG Casts detection in urine sediment by light microscopy NONE NRG Mucus detection in urine sediment by light microscopy NEGATIVE NRG Complete urinalysis with reflex to culture YES NRG Bacterial urine culture - 11/11/19 06:52 Bacterial urine culture [id number] NRG COLONY COUNT 20,000 CFU/ML NRG FTX;REPORTABLE SUSCEPTIBILITY REPORTED 11/13 12:05 NRG FREE TEXT ENTRY 2 PRELIM RAPID ID BY [facility] 11-12-19 [id number]. NRG FREE TEXT ENTRY 3 ID CONFIRMED NRG Dirithromycin susceptibility test by dis k diffusion - 11/11/19 06:52 Vancomycin susceptibility test by minimum inhibitory c oncentration 1 NRG Levofloxacin susceptibility test by minimum inhibitory concentration <= NRG Ampicillin susceptibility test by minimum inhibitory c oncentration 1 NRG Nitrofurantoin susceptibility test by mi nimum inhibitory concentration <= NRG Linezolid susceptibility test by minimum inhibitory co ncentration <= NRG Daptomycin susc [place] 2 NRG Complete blood count (CBC) with automate d white blood cell (WBC) differential - 11/13/19 04:50 Blood leukocytes automated count (number/volume) 6.9 10*3/uL 4.3-11.0 Blood erythrocytes automated count (number/volume) 4.38 10*6/uL 4.35-5.85 Venous blood hemoglobin measurement (mass/volume) 13.8 g/dL 13.3-17.7 Blood hematocrit (volume fraction) 41 % 40-54 Automated erythrocyte mean corpuscular volume 93 [ foz_us] 80-99 Automated erythrocyte mean corpuscular h emoglobin (mass per erythrocyte) 32 pg 25-34 Automated erythrocyte mean corpuscular h emoglobin concentration measurement (mass/volume) 34 g/dL 32-36 Automated erythrocyte distribution width ratio 13. 3 % 10.0- 14.5 Automated blood platelet count (count/volume) 209 10*3/uL 130-400 Automated blood platelet mean volume measurement 11.2 [foz_us] 7.4-10.4 Automated blood neutrophils/100 leukocytes 74 % 42-75 Automated blood lymphocytes/100 leukocytes 14 % 12-44 Blood monocytes/100 leukocytes 13 % 0-12 Automated blood eosinophils/100 leukocytes 0 % 0-10 Automated blood basophils/100 leukocytes 0 % 0-10 Blood neutrophils automated count (number/volume) 5.1 10*3 1.8-7.8 Blood lymphocytes automated count (number/volume) 0.9 10*3 1.0-4.0 Blood monocytes automated count (number/volume) 0. 9 10*3 0.0-1.0 Automated eosinophil count 0.0 10*3/uL 0 .0-0.3 Automated blood basophil count (count/volume) 0.0 10*3/uL 0.0-0.1 Whole blood basic metabolic panel - 10/31 11/19 04:50 Serum or plasma sodium measurement (moles/volume) 133 mmol/L 135-145 Serum or plasma potassium measurement (moles/volume) 4.7 mmol/L 3.6-5.0 Serum or plasma chloride measurement (moles/volume) 93 mmol/L 98-107 Carbon dioxide 29 mmol/L 21-32 Serum or plasma anion gap determination (moles/volume) 11 mmol/L 5-14 Serum or plasma urea nitrogen measurement (mass/volume ) 48 mg/dL 7-18 Serum or plasma creatinine measurement (mass/volume) 0.95 mg/dL 0.60-1.30 Serum or plasma urea nitrogen/creatinine mass ratio 51 NRG Serum or plasma creatinine measurement w ith calculation of estimated glomerular filtration rate > NRG Serum or plasma glucose measurement (mass/volume) 112 mg/dL 70-105 Serum or plasma calcium measurement (mass/volume) 9.3 mg/dL 8.5-10.1 Magnesium - 11/13/19 04:50 Magnesium 2.3 mg/dL 1.6-2.4 Encounters ACCT No. Visit Date/Time Discharge Status Pt. Type Provider Facility Loc./Unit Complaint [id number] 10/06/2019 08:41:00 10/06/2019 23:59 :00 DIS Outpatient NYA ZUNIGA [id number] 10/30/2019 13:34:00 020 00:01:00 DIS Outpatient SUZY GAO, LLUVIA Major [facility] CR3 CARDIAC REHAB PHASE 3 [id number] 11/13/2019 13:25:00 13:43:00 DIS Inpatient NICCI GAO, TOMMIE Gayle [facility] 4TH INFLUENZA [id number] 11/10/2019 05:35:00 12:58:00 DIS Inpatient JOY DO, RONAK [facility] 4TH RESPIRATORY FAILURE [id number] 11/06/2019 11:08:00 09:38:00 DIS Inpatient JOY DO, RONAK V [facility] IRF DEBILITY [id number] 10/29/2019 10:21:00 00:01:00 DIS Outpatient CHRISTINA GAO, JULISSA Trcay [facility] REHAB GENERAL WEAKNESS;LACK O F COORDINATION [id number] 11/02/2019 18:19:00 11:08:00 DIS Inpatient MARCIO GAO, CALI Gayle Via [address] AE CHF [id number] 10/16/2019 13:11:00 00:01:00 DIS Outpatient LLUVIA ALMONTE MD [facility] [place] [address] CARDIAC REHAB PHASE 3 [id number] 08/12/2019 00:10:00 23:59:59 CLS Preadmit CHRISTINA GAO, JULISSA Rodriguez [facility] REHAB GENERAL WEAKNESS;LACK O F COORDINATION [id number] 06/17/2019 10:12:00 00:01:00 DIS Outpatient JOY DO, RONAK [facility] REHAB UNSTEADY GAIT;L UE WEAK NESS [id number] 05/27/2019 14:00:00 00:01:00 DIS Outpatient LLUVIA ALMONTE MD [facility] [place] [address] CARDIAC REHAB PHASE 3 [id number] 06/05/2019 12:47:00 23:59:59 CLS Outpatient JOY DO, RONAK [facility] RAD CEREBRAL INFARCTION [id number] 05/29/2019 15:47:00 23:59:59 CLS Outpatient JOY DO, RONAK [facility] LAB WEAKNESS [id number] 05/22/2019 14:45:00 00:01:00 DIS Outpatient LLUVIA ALMONTE MD [facility] [place] [address] CARDIAC REHAB PHASE 3 [id number] 04/22/2019 14:02:00 00:01:00 DIS Outpatient LLUVIA ALMONTE MD [facility] [place] [address] CARDIAC REHAB PHASE 3 [id number] 04/20/2019 13:51:00 23:59:59 CLS Outpatient ELSA GUDINO MD [facility] WOUNDCARE [id number] 04/13/2019 13:57:00 23:59:59 CLS Outpatient ELSA GUDINO MD [facility] WOUNDCARE [id number] 03/28/2019 10:22:00 12:24:00 DIS Emergency HERNAN THIBODEAUX [facility] ER L ARM INJURY [id number] 03/25/2019 14:57:00 15:26:[address] RAMIRES DYE OPERATOR [facility] ER STITCH REMOVAL [id number] 03/20/2019 13:22:00 00:01:00 DIS Outpatient LLUVIA ALMONTE MD [facility] [place] [address] CARDIAC REHAB PHASE 3 [id number] 03/12/2019 23:53:00 02:50:00 DIS Emergency JEFFERY AYERS MD [facility] ER FALL, RT EYE INJURY [id number] 02/18/2019 15:10:00 00:01:00 DIS Outpatient LLUVIA ALMONTE MD [facility] [place] [address] CARDIAC REHAB PHASE 3 [id number] 01/20/2019 11:46:00 23:59:59 CLS Outpatient CARIE PENN MUSIC DEPARTMENT CHAIR [facility] CARD CAD,MORAN [id number] 01/16/2019 14:56:00 00:01:00 DIS Outpatient LLUVIA ALMONTE MD [facility] [place] [address] CARDIAC REHAB PHASE 3 [id number] 12/12/2018 14:52:00 00:01:00 DIS Outpatient LLUVIA ALMONTE MD [facility] [place] [address] CARDIAC REHAB PHASE 3 [id number] 11/12/2018 15:34:00 00:01:00 DIS Outpatient LLUVIA ALMONTE MD [facility] [place] [address] CARDIAC REHAB PHASE 3 [id number] 10/10/2018 15:35:00 00:01:00 DIS Outpatient LLUVIA ALMONTE MD [facility] [place] [address] CARDIAC REHAB PHASE 3 [id number] 09/11/2018 12:55:00 12:20:00 DIS Outpatient ELAS ROBLEDO MD [facility] REHAB BALANCE [id number] 09/10/2018 14:49:00 00:01:00 DIS Outpatient LLUVIA ALMONTE MD [facility] [place] [address] CARDIAC REHAB PHASE 3 [id number] 09/01/2018 14:03:00 10:27:00 DIS Outpatient ELSA ROBLEDO MD [facility] REHAB BALANCE [id number] 08/06/2018 14:42:00 00:01:00 DIS Outpatient LLUVIA ALMONTE MD [facility] [place] [address] CARDIAC REHAB PHASE 3 [id number] 07/09/2018 13:45:00 00:01:00 DIS Outpatient LLUVIA ALMONTE MD [facility] [place] [address] CARDIAC REHAB PHASE 3 [id number] 06/06/2018 14:08:00 00:01:00 DIS Outpatient LLUVIA ALMONTE MD [facility] [place] [address] CARDIAC REHAB PHASE 3 [id number] 06/06/2018 12:56:00 14:34:00 DIS Outpatient RONAK JOY DO [facility] REHAB UNSTEADINESS ON FEET [id number] 05/30/2018 12:54:00 018 00:01:00 DIS Outpatient RONAK JOY DO [facility] REHAB UNSTEADINESS ON FEET [id number] 05/07/2018 16:05:00 018 00:01:00 DIS Outpatient LLUVIA ALMONTE MD [facility] [place] [address] CARDIAC REHAB PHASE 3 [id number] 04/24/2018 09:02:00 018 23:59:59 CLS Outpatient RONAK JOY DO [facility] RAD CEREBARAL INFARCTION,UN SPECIFIED [id number] 03/31/2018 14:08:00 018 23:59:59 CLS Outpatient LLUVIA ALMONTE MD [facility] [place] [address] CARDIAC REHAB PHASE 3 [id number] 03/03/2018 16:35:00 018 00:01:00 DIS Outpatient LLUVIA ALMONTE MD [facility] [place] [address] CARDIAC REHAB PHASE 3 [id number] 01/31/2018 15:23:00 018 00:01:00 DIS Outpatient LLUVIA ALMONTE MD [facility] [place] [address] CARDIAC REHAB PHASE 3 [id number] 01/01/2018 15:16:00 018 00:01:00 DIS Outpatient LLUVIA ALMONTE MD [facility] [place] [address] CARDIAC REHAB PHASE 3 [id number] 10/07/2017 13:02:00 018 13:47:00 [facility] [id number] 07/23/2017 14:00:00 017 14:41:00 DIS Out[facility];LUMBAR SPINAL STENOSIS [id number] 05/27/2017 13:27:00 017 00:01:00 DIS Out[facility];LUMBAR SPINAL STENOSIS [id number] 04/11/2017 14:35:00 08/13/2 017 00:01:00 DIS Outpatient ELSA VILLALPANDO DO [facility] REHAB GAIT ABNORMALIT Y;LUMBAR SPINAL STENOSIS [id number] 01/29/2017 12:41:00 23:59:59 CLS Outpatient KADE GAO FACC, DANNIELLE CARDENAS CC DS [facility] RAD I25.10,I73. 9,I65.23 [id number] 08/15/2016 07:32:00 23:59:59 CLS Outpatient KADE GAO FACC, DANNIELLE CARDENAS CC DS [facility] CARD WEAKNESS,CA D [id number] 07/19/2016 13:39:00 09:17:00 DIS Outpatient RINKU MELENDEZ [facility] REHAB SCIATICA [id number] 01/06/2016 11:34:00 23:59:59 CLS Outpatient GRECIA FOSTER DYE OPERATOR [facility] RAD LT TESTICULAR PAIN NABEEL ITING TO LT GROIN [id number] 12/29/2015 07:28:00 016 23:59:59 CLS Outpatient KADE GAO FACC, DANNIELLE CARDENAS CC DS [facility] CARD CAD,ISCHEMI C CARDIOMYOPATHY [id number] 11/22/2015 13:05:00 15:33:00 DIS Emergency MARY HERRING DO [facility] ER FALL, NOSE INJ, LEFT SH OULDER PAIN [id number] 05/10/2015 11:01:00 18:00:00 DIS Outpatient KADE GAO FACC, DANNIELLE CARDENAS CC DS [facility] CATH PULSE GENER ATOR CHANGE [id number] 03/21/2015 00:10:00 23:59:59 CLS Preadmit RONAK JOY DO [facility] REHAB [id number] 02/24/2015 08:27:00 00:01:00 DIS [facility] [id number] 09/09/2014 10:22:00 015 11:19:00 DIS Outpatient JOY DO, RONAK [facility] REHAB HAND THERAPY AFTER L SH OULDER FRACTURE [id number] 09/22/2014 12:22:00 015 14:35:00 DIS Inpatient JOY DO, RONAK V [facility] 4TH SWB--SEPSIS [id number] 09/09/2014 10:31:00 015 14:35:00 DIS Outpatient FRANCOIS PEARL F [facility] REHAB L HUMERUS FX [id number] 09/19/2014 23:30:00 015 12:15:00 DIS Inpatient JOY DO, RONAK V [facility] ICU SEPSIS [id number] 08/16/2014 17:16:00 014 19:09:00 DIS Emergency HERNAN THIBODEAUX [facility] ER FALL,HEAD LAC [id number] 05/05/2014 11:50:00 014 16:03:00 DIS Inpatient BRIANA GAO, JOHANNA E [facility] IRF FALL, [id number] 05/03/2014 22:50:00 014 11:50:00 DIS Inpatient JOY DO, RONAK V [facility] CSD NEW SYNCOPE,LEFT PROXIM AL HUMERUS FX,CARDIAC DYSRH [id number] 04/29/2014 07:46:00 014 23:59:59 CLS Outpatient KADE GAO FACC, DANNIELLE CARDENAS CC DS [facility] CARD WEAKNESS, I SCHEMIC CARDIOMYOPATHY [id number] 02/22/2014 16:03:00 014 23:59:59 CLS Outpatient [id number] 07/06/2013 10:48:00 23:59:59 CLS Outpatient JOY DO, RONAK [facility] RAD FALL,HIP,RIB PAIN,HEMAT URIA [id number] 09/07/2014 14:10:00 Document Registration [id number] 09/07/2014 14:09:00 Document Registration [id number] 11/20/2012 13:16:00 Document Registration [id number] 10/09/2012 14:21:00 Document Registration [id number] 10/03/2012 07:43:00 Document Registration [id number] 06/11/2012 13:01:00 Document Registration [id number] 12/27/2011 08:04:00 Document Registration [id number] 10/14/2011 11:59:00 Document Registration [id number] 04/25/2011 13:00:00 Document Registration [id number] 01/01/2011 15:40:00 Document Registration [id number] 10/12/2010 05:41:00 Document Registration [id number] 10/09/2010 07:46:00 Document Registration [id number] 09/01/2010 20:38:00 Document Registration [id number] 04/03/2010 12:01:00 Document Registration [id number] 03/07/2010 09:45:00 Document Registration [id number] 12/27/2009 10:52:00 Document Registration [id number] 12/26/2009 09:02:00 Document Registration [id number] 11/01/2009 08:11:00 Document Registration [id number] 10/27/2009 15:46:00 Document Registration [id number] 10/27/2009 15:44:00 Document Registration [id number] 08/30/2009 12:29:00 Document Registration [id number] 07/15/2009 09:00:00 Document Registration [id number] 06/16/2009 14:36:00 Document Registration [id number] 05/13/2009 10:26:00 Document Registration
[2019-12-25 12:39] LABS: BASOPHILS % (AUTO) 0 % (0-10); EOSINOPHILS # (AUTO) 0.2 10^3/uL (0.0-0.3); EOSINOPHILS % (AUTO) 2 % (0-10); HEMATOCRIT 34 % (40-54); HEMOGLOBIN 11.5 G/DL (13.3-17.7); LYMPHOCYTES # (AUTO) 1.2 X 10^3 (1.0-4.0); LYMPHOCYTES % (AUTO) 12 % (12-44); MEAN CORPUSCULAR HEMOGLOBIN 32 PG (25-34); MEAN CORPUSCULAR HGB CONC 34 G/DL (32-36); MEAN CORPUSCULAR VOLUME 95 FL (80-99); MEAN PLATELET VOLUME 9.9 FL (7.4-10.4); MONOCYTES # (AUTO) 1.4 X 10^3 (0.0-1.0); MONOCYTES % (AUTO) 14 % (0-12); NEUTROPHILS # (AUTO) 7.4 X 10^3 (1.8-7.8); NEUTROPHILS % (AUTO) 73 % (42-75); PLATELET COUNT 197 10^3/uL (130-400); RED CELL DISTRIBUTION WIDTH 15.3 % (10.0-14.5); WHITE BLOOD COUNT 10.1 10^3/uL (4.3-11.0)
[2019-12-25 12:53] LABS: ALBUMIN 3.5 GM/DL (3.2-4.5); CHLORIDE 101 MMOL/L (98-107); POTASSIUM 4.4 MMOL/L (3.6-5.0); SODIUM 136 MMOL/L (135-145)
--- NOTE | 2019-12-25 12:53 | Diagnostic Imaging Report ---
INDICATION: Shortness of breath. Time of exam 12:45 PM Correlation is made with prior chest from 11/12/2019. Changes of median sternotomy and CABG are noted. Heart size stable. Cardiac defibrillator remains in place. There is some questionable minimal infiltrate in the right upper lobe. Otherwise lungs are clear. No effusion is seen. There is no pneumothorax. IMPRESSION: Questionable minimal right upper lobe infiltrate. The study is otherwise unremarkable. Dictated by: Dictated on workstation # [id number]
[2019-12-25 12:54] LABS: CALCIUM 8.7 MG/DL (8.5-10.1)
--- NOTE | 2019-12-25 12:54 | ED Respiratory ---
General Chief Complaint: Respiratory Problems Stated Complaint: SOA Nursing Triage Note: ARRIVED VIA POV AFTER FAMILY CALLED THE ER OVER AN HOUR AGO. PT PUT IN THE COVID ER. COMPLAINS OF INCREASED SOA AND WEAKNESS SINCE BEING DISCHARED FROM THE HOSPITAL WITH PNEUMONIA, Source: patient, old records History of Present Illness Date Seen by Provider: Dec 25, 2019 Time Seen by Provider: 12:18 Initial Comments PT ARRIVES VIA POV FROM HOME C/O SHORTNESS OF BREATH, FEVER, AND GENERALIZED WEAKNESS HAS HAD COUGH OFF AND ON NO CHEST PAIN NO SWELLING IN LEGS/ FEET OR PAIN IN CALVES NO NAUSEA/VOMITING/DIARRHEA OR ABDOMINAL PAIN PT WAS RECENTLY ADMITTED WITH PNEUMONIA WITH HYPOXIA--11/01-11/16/19, TESTED + FOR INFLUENZA B ON 11/10/19 AND THEN WAS ADMITTED TO VIA [facility] HE WAS THEN MOVED BACK TO HOME ON 12/17/19 SINCE HE HAS BEEN HOME, HE HAS HAD INCREASED WEAKNESS, INCREASED SHORTNESS OF BREATH AND HAS STARTED RUNNING FEVER--PT DOES NOT KNOW HOW HIGH HIS TEMPERATURE HAS BEEN OR WHEN HE STARTED RUNNING FEVER. PER NOTES FROM , PT HAD TEMP OF 102.2 ON 12/18/19, 101.2 ON 12/24/19 PT HAS BEEN ON HOME O2 SINCE BEING DISMISSED FROM THE HOSPITAL, AT 2L/NC, BUT TODAY HIS OXYGEN LEVEL WAS IN THE 80'S, SO DECIDED TO COME HERE. PT DOES HAVE COPD AND PREVIOUSLY HAD ONLY REQUIRED HOME O2 AT NIGHT. HAS NOT ATTEMPTED TO CONTACT HIS DR FOR THIS PROBLEM 'S NOTES ALSO INDICATE THAT HE HAS FALLEN SEVERAL TIMES THIS WEEK , AND IS CONCERNED ABOUT LEFT ELBOW. PT DOES NOT MENTION THIS OR COMPLAIN OF ELBOW PAIN . PT HAS CHRONIC PROBLEMS WITH FALLING. PT ALSO HAS HISTORY OF CAD WITH CABG, STENTS X 2, AND CHF PT IS DNR/DNI PCP: HAD BEEN DR. JOY, WAS FOLLOWED BY DR. VASQUEZ IN INTERMEDIATE Allergies and Home Medications Allergies Coded Allergies: amiodarone (Verified Allergy, Severe, 03/13/19) lorazepam (Verified Allergy, Unknown, 03/13/19) scopolamine (Verified Allergy, Unknown, 03/13/19) Home Medications Albuterol Sulfate 2.5 Mg/0.5 Ml Vial.neb, 2.5 MG INH Q4 -6H PRN for SHORTNESS OF BREATH, (Reported) WHEN PT IS IN A COPB FLARE HE TAKING A TREAMENT EVERY 4-6 HOURS *3-4 TIMES DAILY) Aspirin 81 Mg Tablet.dr, 81 MG PO DAILY, (Reported) Bimatoprost 2.5 Ml Drops, 1 DROP OD HS, (Reported) Budesonide/Formoterol Fumarate 10.2 Gm Hfa.aer.ad, 2 PUFF IH BID, (Reported) Chlorhexidine Gluconate 473 Ml Mouthwash, 5-10 ML MT BID, (Reported) RINSE AND SPIT TWICE DAILY Cholecalciferol (Vitamin D3) 50 Mcg Capsule, 50 MCG PO DAILY, (Reported) Clobetasol Propionate 15 Gm Cream..g., 1 APPLIC TOP BID, (Reported) MIXES WITH MOSTURIZER (EURICIN OR VANICREAM) AND APPLIES TO THE LEFT ARM AND SPOT ON CHEST TWICE DAILY Cyanocobalamin (Vitamin B-12) 2,500 Mcg Tablet, 2,500 MCG PO DAILY, (Reported) Digoxin 250 Mcg Tablet, 250 MCG PO DAILY, (Reported) Furosemide 40 Mg Tablet, 40 MG PO DAILY, (Reported) Guaifenesin 600 Mg Tab.er.12h, 600 MG PO BID PRN for CONGESTION, (Reported) Levothyroxine Sodium 75 Mcg Tablet, 75 MCG PO DAILY, (Reported) Lisinopril 5 Mg Tablet, 5 MG PO DAILY, (Reported) Metoprolol Succinate 50 Mg Tab.er.24h, 50 MG PO DAILY, (Reported) Metronidazole 45 Gm Gel..gram., 1 APPLIC TD DAILY PRN for BREAKOUT, (Reported) APPLIES TO THE FOREHEAD Montelukast Sodium 10 Mg Tablet, 10 MG PO HS, (Reported) Phenobarbital 64.8 Mg Tablet, 129.6 MG PO HS TAKES 2 (64.8MG) TABS TO EQUAL 129.6MG Prescribed by: CALI BUCKLEY on 11/16/19 1352 Phenytoin Sodium Extended 100 Mg Capsule, 300 MG PO 1800, (Reported) TAKES 2 (100MG) CAPS IN THE MORNING AND 3 (100MG) CAPS AT 1800 Phenytoin Sodium Extended 100 Mg Capsule, 200 MG PO DAILY, (Reported) TAKES 2 (100MG) CAPS IN THE MORNING AND 3 (100MG) CAPS AT 1800 Polyethylene Glycol 3350 17 Gm Powd.pack, 17 GM PO DAILY, (Reported) Prednisone 10 Mg Tab.ds.pk, 10 MG PO DAILY Take 6 tabs(60mg)daily,decrease by 1 tab(10mg)every other day. Prescribed by: CALI BUCKLEY on 11/16/19 1122 Pyridoxine HCl 25 Mg Tablet, 25 MG PO DAILY, (Reported) Simvastatin 10 Mg Tablet, 10 MG PO HS, (Reported) Patient Home Medication List Home Medication List Reviewed: Yes Review of Systems Review of Systems Constitutional: see HPI, fever, malaise, weakness EENTM: no symptoms reported; No nose congestion, No throat pain Respiratory: see HPI, cough, short of breath, wheezing Cardiovascular: No chest pain, No edema, No palpitations, No syncope; vascular heart diseas Gastrointestinal: no symptoms reported; No abdominal pain, No diarrhea, No nausea, No vomiting Genitourinary: no symptoms reported Musculoskeletal: no symptoms reported Skin: no symptoms reported Psychiatric/Neurological: No Symptoms Reported Hematologic/Lymphatic: No Symptoms Reported Immunological/Allergic: no symptoms reported Past Dfobhqp-Atiqrs-Oemxqg Hx Past Med/Social Hx: Reviewed and Corrections made Patient Social History Alcohol Use: Denies Use Recreational Drug Use: No Smoking Status: Former Smoker Type Used: Cigarettes Former Smoker, Quit: Jan 31, 1990 2nd Hand Smoke Exposure: No Recent Infectious Disease Expo: No Recent Hopitalizations: Yes Immunizations Up To Date Tetanus Booster (TDap): Less than 5yrs PED Vaccines UTD: Yes Date of Pneumonia Vaccine: January 20, 2015 Date of Influenza Vaccine: May 10, 2019 Seasonal Allergies Seasonal Allergies: Yes Past Medical History Surgeries: Yes (SEE BELOW) Cardiac, CABG, Coronary Stent, Defibrillator, Eye Surgery, Pacemaker Respiratory: Yes (INTUBATED 2012; ) Pneumonia, Chronic Bronchitis, COPD Currently Using CPAP: No Currently Using BIPAP: No Cardiac: Yes (3 VESSEL CABG; STENTS X 2; CHF; CARDIAC ARREST 12/1997;CAROTID DISEASE;LBBB) Cardiomyopathy, Coronary Artery Disease, High Cholesterol, Hypertension, Peripheral Vascular Neurological: Yes (Brain biopsy 1990; SEIZURES SINCE 1990;FALLS/POOR BALANCE) Neuropathy, Seizure Disorder, Stroke Reproductive Disorders: No Sexually Transmitted Disease: No Genitourinary: Yes Bladder Infection, Renal Failure Gastrointestinal: Yes (ACHALASIA;) Abdominal Hernia 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;LEG FX 1964;L HUMERUS FX 2013;FALLS/POOR BALANCE) Degenerate Disk Disease, Arthritis, Chronic Back Pain, Fractures Endocrine: Yes Hypothyroidsim HEENT: Yes Cataract Hearing Impairment: Hard of Hearing Cancer: Yes (pre-skin cancer) Skin Did You Recieve Any Treatments: Yes What Type of Treatment Did You: Surgical Intervention Psychosocial: Yes Depression Integumentary: No (chronic rash over 2 months, vs pre skin cancer) Blood Disorders: No Adverse Reaction/Blood Tranf: No Family Medical History Arthritis 19 MOTHER, Cardiovascular disease G8 BROTHER, G8 BROTHER, , Age:67 G8 BROTHER G8 SISTER Cataracts G8 BROTHER, , Age:67 G8 BROTHER Completed stroke 19 MOTHER, Deafness or hearing loss G8 BROTHER G8 BROTHER Diabetes mellitus G8 SISTER Headache disorder 19 FATHER, 19 MOTHER, G8 BROTHER, G8 BROTHER, , Age:67 G8 BROTHER G8 BROTHER G8 SISTER Hypercholesterolemia G8 BROTHER, , Age:67 G8 BROTHER G8 BROTHER G8 SISTER Hypertension 19 MOTHER, G8 BROTHER G8 SISTER Myocardial infarction G8 BROTHER, , Age:67 G8 BROTHER G8 SISTER Respiratory disorder G8 BROTHER, Thyroid disease G8 SISTER No Family History of: AIDS Abdominal aortic aneurysm Van Buren's disease Alcoholism Alzheimer's disease Aphasia Asthma Cancer of mouth Colon cancer Congenital disease Congenital heart disease Cystic fibrosis Dementia Drug abuse Dysphasia Fibrocystic disease of breast Gastroenteritis Glaucoma Infertility Kidney disease Neoplasm Not obtainable due to adoption Osteoporosis Parkinson's disease Prostate cancer Psychosocial problem Seizure disorder Severe allergy Tuberculosis Visual disorder No Pertinent Family Hx PSH: -HERNIA REPAIR 1977 -3 VESSEL CABG 1990--DR. WESTON -BRAIN BIOPSY ON RIGHT 1990 -DEFIBRILLATOR/PACEMAKER 1997, WITH REPLACEMENTS--LAST REPLACEMENT 05/10/15 -ORAL SURGERY 1998 -LEFT EYE SURGERY TO REMOVE PTERYGIUM 1999 -RIGHT EYE SURGERY TO REMOVE PTERYGIUM 2012 -CARDIAC CATHS--2 STENTS 2009 -BRONCHOSCOPY -COLONOSCOPY -SKIN CANCER REMOVED - ADDITIONAL PMH: -MULTIPLE ADMITS FOR COPD AND PNEUMONIA, WITH RESPIRATORY FAILURE AND HAS BEEN INTUBATED IN 2013-HAD PNEUMONIA, INFLUENZA B AND CHF, THEN MOST RECENTLY ADMITTED 11/02/19-11/15 WITH PNEUMONIA/RESPIRATORY FAILURE AND INFLUENZA B AND CHG-NO INTUBATION. Physical Exam Vital Signs - First Documented 12/25/19 12:16 Temp 37.0 Pulse 81 Resp 18 B/P (MAP) 145/75 (98) Pulse Ox 83 O2 Delivery Room Air O2 Flow Rate 3.00 Capillary Refill : Less Than 3 Seconds Height: 6'0" Weight: 187lbs. 0.0oz. 84.392287hk; 25.00 BMI Method:Stated General Appearance: thin, other (MILD TO MODERATELY DYSPNEIC ON ARRIVAL) HEENT: PERRL/EOMI Neck: normal inspection Respiratory: respiratory distress (MILD ), accessory muscle use, wheezing, other (DIFFUSE WHEEZING BILATERALLY) Cardiovascular: no murmur, tachycardia Gastrointestinal: non tender, soft, no organomegaly Extremities: normal inspection, no pedal edema, normal capillary refill, other (HAS ABRASION TO LEFT ELBOW--COVERED WITH BANDAID. MILD TENDERNESS. 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, no motor/sensory deficits, alert, normal mood/affect, oriented x 3 Skin: normal color, warm/dry, ecchymosis (TO LEFT FOREARM) Focused Exam Lactate Level 12/25/19 12:30: Lactic Acid Level 0.68 Lactic Acid Level Laboratory Tests Test 12/25/19 12:30 Lactic Acid Level 0.68 MMOL/L (0.50-2.00) Procedures/Interventions Suture Size: 5-0 Progress/Results/Core Measures Suspected Sepsis Recent Fever Within 48 Hours: Yes Infection Criteria Present: Suspected New Infection New/Unexplained Altered Menta: No Sepsis Screen: No Definite Risk SIRS Temperature: Pulse: 81 Respiratory Rate: 18 Laboratory Tests 12/25/19 12:30: White Blood Count 10.1 Blood Pressure 145 /75 Mean: 98 12/25/19 12:30: Lactic Acid Level 0.68 Laboratory Tests 12/25/19 12:30: Creatinine 0.92, INR Comment 1.0, Platelet Count 197, Total Bilirubin 0.5 Results/Orders Lab Results Laboratory Tests Test 12/25/19 12:30 12/25/19 12:50 12/25/19 12:51 12/25/19 13:56 Range/Units White Blood Count 10.1 4.3-11.0 10^3/uL Red Blood Count 3.60 L 4.35-5.85 10^6/uL Hemoglobin 11.5 L 13.3-17.7 G/DL Hematocrit 34 L 40-54 % Mean Corpuscular Volume 95 80-99 FL Mean Corpuscular Hemoglobin 32 25-34 PG Mean Corpuscular Hemoglobin Concent 34 32-36 G/DL Red Cell Distribution Width 15.3 H 10.0-14.5 % Platelet Count 197 130-400 10^3/uL Mean Platelet Volume 9.9 7.4-10.4 FL Neutrophils (%) (Auto) 73 42-75 % Lymphocytes (%) (Auto) 12 12-44 % Monocytes (%) (Auto) 14 H 0-12 % Eosinophils (%) (Auto) 2 0-10 % Basophils (%) (Auto) 0 0-10 % Neutrophils # (Auto) 7.4 1.8-7.8 X 10^3 Lymphocytes # (Auto) 1.2 1.0-4.0 X 10^3 Monocytes # (Auto) 1.4 H 0.0-1.0 X 10^3 Eosinophils # (Auto) 0.2 0.0-0.3 10^3/uL Basophils # (Auto) 0.0 0.0-0.1 10^3/uL Erythrocyte Sedimentation Rate 80 H 0-30 MM/HR Prothrombin Time 13.6 12.2-14.7 SEC INR Comment 1.0 0.8-1.4 Activated Partial Thromboplast Time 37 H 24-35 SEC D-Dimer 2.33 H 0.00-0.49 UG/ML Sodium Level 136 135-145 MMOL/L Potassium Level 4.4 3.6-5.0 MMOL/L Chloride Level 101 98-107 MMOL/L Carbon Dioxide Level 24 21-32 MMOL/L Anion Gap 11 5-14 MMOL/L Blood Urea Nitrogen 16 7-18 MG/DL Creatinine 0.92 0.60-1.30 MG/DL Estimat Glomerular Filtration Rate > 60 BUN/Creatinine Ratio 17 Glucose Level 124 H 70-105 MG/DL Lactic Acid Level 0.68 0.50-2.00 MMOL/L Calcium Level 8.7 8.5-10.1 MG/DL Corrected Calcium 9.1 8.5-10.1 MG/DL Magnesium Level 2.2 1.6-2.4 MG/DL Total Bilirubin 0.5 0.1-1.0 MG/DL Aspartate Amino Transf (AST/SGOT) 27 5-34 U/L Alanine Aminotransferase (ALT/SGPT) 29 0-55 U/L Alkaline Phosphatase 111 40-136 U/L Lactate Dehydrogenase 199 125-220 U/L Total Creatine Kinase 27 L 30-200 U/L Creatine Kinase MB 0.9 <6.6 NG/ML Myoglobin 60.9 10.0-92.0 NG/ML Troponin I 0.029 H <0.028 NG/ML C-Reactive Protein High Sensitivity 15.57 H 0.00-0.50 MG/DL B-Type Natriuretic Peptide 293.1 H <100.0 PG/ML Total Protein 7.9 6.4-8.2 GM/DL Albumin 3.5 3.2-4.5 GM/DL Procalcitonin 0.11 H <0.10 NG/ML Digoxin Level 1.05 0.80-2.00 NG/ML Blood Gas Puncture Site RT RAD Blood Gas Patient Temperature 37 Arterial Blood pH 7.41 7.37-7.43 Arterial Blood Partial Pressure CO2 48 H 35-45 MMHG Arterial Blood Partial Pressure O2 50 L 79-93 MMHG Arterial Blood HCO3 30 H 23-27 MMOL/L Arterial Blood Total CO2 31.0 21.0-31.0 MMOL/L Arterial Blood Oxygen Saturation 79 L 94-100 % Arterial Blood Base Excess 5.0 H -2.5-2.5 MMOL/L Amrit Test YES-POS Blood Gas Ventilator Setting NO Blood Gas Inspired Oxygen 2 Urine Color YELLOW Urine Clarity CLEAR Urine pH 6.0 5-9 Urine Specific [place] 1.010 L 1.016-1.022 Urine Protein 1+ H NEGATIVE Urine Glucose (UA) NEGATIVE NEGATIVE Urine Ketones NEGATIVE NEGATIVE Urine Nitrite NEGATIVE NEGATIVE Urine Bilirubin NEGATIVE NEGATIVE Urine Urobilinogen 1.0 < = 1.0 MG/DL Urine Leukocyte Esterase 1+ H NEGATIVE Urine RBC (Auto) TRACE-I NEGATIVE Urine RBC RARE /HPF Urine WBC 50-100 H /HPF Urine Crystals NONE /LPF Urine Bacteria TRACE /HPF Urine Casts NONE /LPF Urine Mucus NEGATIVE /LPF Urine Culture Indicated YES Micro Results Microbiology 12/25/19 Influenza Types A,B Antigen ([facility]) - Final, Complete My Orders Orders - DIPESH MCLAUGHLIN DO Ed Iv/Invasive Line Start (12/25/19 12:26) Ekg Tracing (12/25/19 12:26) O2 (12/25/19 12:26) Monitor-Rhythm Ecg Trace Only (12/25/19 12:26) Arterial Blood Gas (12/25/19 12:26) BNP (12/25/19 12:) Cbc With Automated Diff (12/25/19 12:) Comprehensive Metabolic Panel (12/25/19:) Creatine Kinase (12/25/19:) Creatine Kinase Mb (12/25/19:) Lactic Acid Analyzer (12/25/19:) Magnesium (12/25/19 12:) Protime With Inr (12/25/19:) Partial Thromboplastin Time (12/25/19:) Ua Culture If Indicated (12/25/19:) Blood Culture (12/25/19:) Influenza A And B Antigens (12/25/19:) Myoglobin Serum (12/25/19:) Troponin I (12/25/19:) Chest 1 View, Ap/Pa Only (12/25/19:) Fibrin Degradation Products (12/25/19:) Procalcitonin (Pct) (12/25/19:) Hs C Reactive Protein (12/25/19:) Erythrocyte Sedimentation Rate (12/25/19:) LDH (12/25/19 12:) Adenovirus Detection By Pcr (12/25/19:) Parainfluenza Virus 1,2,3 Pcr (12/25/19:) Rt Request For Service (12/25/19 12:) Coronavirus Sars-Cov-2 So 2018 (12/25/19 12:26) Albuterol Inhaler (Proair Hfa) (12/25/19 12:30) Rx-Albuterol Inhaler (Rx-Proair) (12/25/19 12:31) Methylprednisolone Sod Succ (Solu-Medrol (12/25/19 13:00) Cefepime Injection (Maxipime Injection) (12/25/19 13:15) Vancomycin Injection (Vancomycin Injecti (12/25/19 13:15) Phenobarbital (12/25/19 13:05) Dilantin (Phenytoin) (12/25/19 13:05) Digoxin (12/25/19 12:30) Vancomycin Injection (Vancomycin Injecti (12/25/19 13:05) Arterial Blood Draw (12/25/19 ) Ct Angio Chest W (12/25/19 13:35) Iohexol Injection (Omnipaque 350 Mg/Ml 1 (12/25/19 13:45) Received Contrast (Hold Metformin- Contr (12/25/19 13:45) Ns (Ivpb) (Sodium Chloride 0.9% Ivpb Bag (12/25/19 13:45) Urine Culture (12/25/19 13:56) Medications Given in ED Current Medications Medications Dose Ordered Sig/Yissel Route Start Time Stop Time Status Last Admin Dose Admin Albuterol Sulfate 2 PUFFS ONCE ONCE IH 12/25/19 12:30 12/25/19 12:32 DC 12/25/19 12:51 2 GM Cefepime HCl 2000 mg/Sterile Water 10 ml @ 200 mls/hr ONCE ONCE IV 12/25/19 13:15 12/25/19 13:17 DC 12/25/19 13:14 200 MLS/HR Methylprednisolone Sodium Succinate 125 mg ONCE ONCE IVP 12/25/19 13:00 12/25/19 13:01 DC 12/25/19 13:04 125 MG Vancomycin HCl 1000 mg/Sodium Chloride 250 ml @ 250 mls/hr ONCE ONCE IV 12/25/19 13:15 12/25/19 14:14 DC 12/25/19 13:19 250 MLS/HR Vital Signs/I&O 12/25/19 12/25/19 12/25/19 12/25/19 12:16 12:16 12:51 12:59 Temp 37.0 Pulse 81 Resp 18 B/P (MAP) 145/75 (98) Pulse Ox 83 97 97 O2 Delivery Room Air Nasal Cannula Nasal Cannula Nasal Cannula O2 Flow Rate 3.00 2.00 2.00 Capillary Refill : Less Than 3 Seconds Blood Pressure Mean: 98 Progress Note : Progress Note PT SEEN IN COVID UNIT, PPE WORN AT ALL TIMES O2 SATS 83% ON ROOM AIR ON ARRIVAL. UP TO 97% ON 3L/NC UNEVENTFUL ER STAY DISCUSSED GETTING XRAYS OF LEFT ELBOW, DUE TO RECENT FALL, AND PT STATES IT REALLY DOES NOT HURT, AND DOES NOT WANT IT XRAY'D ECG Initial ECG Impression Date: Dec 25, 2019 Initial ECG Impression Time: 12:42 Initial ECG Rate: 78 Initial ECG Rhythm: Normal Sinus (SINUS ARRHYTHMIA; LBBB) Initial ECG Comparisson: Unchanged Diagnostic Imaging Comments CXR--PER RADIOLOGIST REPORT AT 1258 Changes of median sternotomy and CABG are noted. Heart size stable. Cardiac defibrillator remains in place. There is some questionable minimal infiltrate in the right upper lobe. Otherwise lungs are clear. No effusion is seen. There is no pneumothorax. IMPRESSION: Questionable minimal right upper lobe infiltrate. The study is otherwise unremarkable. CT CHEST ANGIOGRAM: PER RADIOLOGIST REPORT AT 1427 FINDINGS: Evaluation of the pulmonary arterial system does demonstrate several filling defects within segmental and subsegmental pulmonary arteries involving bilateral upper and bilateral lower lobes. No central pulmonary emboli are identified. No saddle embolus is identified. The thoracic aorta appears to be normal caliber. No dissection is seen. There is no pericardial or pleural fluid identified. Cardiac pacemaker is in place. Parenchymal evaluation again demonstrates centrilobular emphysematous changes in both lungs. No parenchymal infiltrate is seen. Upper abdomen again demonstrates low-density lesions involving bilateral kidneys suggestive of cysts. IMPRESSION: 1. Findings consistent with bilateral pulmonary emboli. 2. Bilateral renal cysts. Reviewed: Reviewed by Me Departure Communication (Admissions) Family Conversation 1435--SPOKE WITH AND UPDATE GIVEN, AND INFORMED OF CONDITION. 1337--SPOKE WITH DR. GRAJEDA, HOSPITALIST, ACCEPTS PT FOR ADMIT. WILL OBTAIN CT CHEST ANGIOGRAM 1430--SPOKE WITH DR. GRAJEDA AND REVIEWED CT CHEST ANGIOGRAM, ADVISED TO START XARELTO Impression Primary Impression: Acute on chronic respiratory failure Additional Impressions: RUL PNEUMONIA COPD (chronic obstructive pulmonary disease) CHF (congestive heart failure) RECENT INFLUENZA B INFECION COVID-19 P.U.I. CAD WITH HX OF CABG AND STENTS Presence of combination internal cardiac defibrillator (ICD) and pacemaker Seizure disorder LEFT ELBOW INJURY UTI (urinary tract infection) Bilateral pulmonary embolism Disposition: ADMITTED INPATIENT Condition: Improved Admissions Decision to Admit Reason: Admit from ER (General) Decision to Admit/Date: Dec 25, 2019 Time/Decision to Admit Time: 14:35 Departure-Patient Inst. Referrals: JULISSA VASQUEZ MD (PCP/Family) Primary Care Physician DIPESH MCLAUGHLIN DO Dec 25, 2019 12:54
[2019-12-25 12:55] LABS: GLUCOSE 124 MG/DL (70-105); TOTAL PROTEIN 7.9 GM/DL (6.4-8.2)
[2019-12-25 12:56] LABS: CARBON DIOXIDE 24 MMOL/L (21-32)
[2019-12-25 12:57] LABS: BILIRUBIN,TOTAL 0.5 MG/DL (0.1-1.0)
[2019-12-25 12:58] LABS: ERYTHROCYTE SEDIMENTATION RATE 80 MM/HR (0-30)
--- NOTE | 2019-12-25 12:58 | NUR ---
RT IN ROOM AT THIS TIME WITH THE PT.
[2019-12-25 12:59] LABS: ALKALINE PHOSPHATASE 111 U/L (40-136); CREATININE SERUM 0.92 MG/DL (0.60-1.30); GFR ESTIMATED > 60
[2019-12-25 13:00] LABS: BUN/CREATININE RATIO 17
[2019-12-25] MEDS ORDERED: methylPREDNISolone 125 MG (Solu-MEDROL) VIAL IVP ONE (13:00)
[2019-12-25 13:01] LABS: MAGNESIUM 2.2 MG/DL (1.6-2.4)
[2019-12-25 13:02] LABS: ALANINE AMINOTRANSFERASE 29 U/L (0-55); CREATINE KINASE 27 U/L (30-200)
[2019-12-25 13:04] LABS: FIBRIN DEGRADATION PRODUCTS 2.33 UG/ML (0.00-0.49); PROTHROMBIN TIME PATIENT 13.6 SEC (12.2-14.7)
[2019-12-25] MEDS ORDERED: VANCOMYCIN 1000 MG/VIAL ONE (13:05)
[2019-12-25 13:10] LABS: CREATINE KINASE MB 0.9 NG/ML (<6.6)
[2019-12-25] MEDS ORDERED: CEFEPIME INJECTION 2,000 MG in WATER (STERILE) FOR INJECTION 10 ML IV ONE (13:15)
[2019-12-25] MEDS ORDERED: VANCOMYCIN INJECTION 1,000 MG in NS (IVPB) 250 ML IV ONE (13:15)
[2019-12-25 13:27] LABS: ABG OXYGEN SATURATION 79 % (94-100); ABG PCO2 48 MMHG (35-45); ABG PH 7.41 (7.37-7.43); ABG PO2 50 MMHG (79-93); ALLENS TEST YES-POS; INSPIRED O2 2; PATIENT TEMP 37; VENTILATOR NO
--- NOTE | 2019-12-25 13:35 | NUR ---
RESTING IN BED WITH EYES CLOSED AT THIS TIME.
[2019-12-25] MEDS ORDERED: HOLD METFORMIN - RECEIVED CONTRAST 20 ML VIAL IV SCH (13:45)
[2019-12-25] MEDS ORDERED: NS 100 ML (IVPB) BAG IV ONE (13:45)
[2019-12-25] MEDS ORDERED: IOHEXOL 350 MG/ML 100 ML (OMNIPAQUE 350) VIAL IV ONE (13:45)
--- NOTE | 2019-12-25 14:04 | NUR ---
Palliative Care RN was asked by Dr. Bansal to call a speak to patient's . I have had conversations with her in his past few admissions regarding his very fragile state of health and the unknown direction this hospitalization will take. She again discusses the many times he has been on the brink of and even on hospice a couple different time in the past 30 years since his CABG. Will continue to follw and offer support as needed for his post hospital care.
[2019-12-25 14:05] LABS: BILIRUBIN,URINE NEGATIVE (NEGATIVE); CLARITY,URINE CLEAR; COLOR,URINE YELLOW; GLUCOSE, URINE (UA) NEGATIVE (NEGATIVE); KETONES,URINE NEGATIVE (NEGATIVE); LEUKOCYTE ESTERASE ,URINE 1+ (NEGATIVE); NITRITE,URINE NEGATIVE (NEGATIVE); PROTEIN,URINE 1+ (NEGATIVE)
[2019-12-25 14:12] LABS: BACTERIA,URINE TRACE /HPF; RBC,URINE RARE /HPF; WBC,URINE 50-100 /HPF
--- NOTE | 2019-12-25 14:25 | Diagnostic Imaging Report ---
PROCEDURE: CT angiography of the chest with contrast. TECHNIQUE: Multiple contiguous axial images were obtained through the chest after uneventful bolus administration of intravenous contrast. 3D reconstructed CTA MIP acquisitions were also performed. Auto Exposure Controls were utilized during the CT exam to meet ALARA standards for radiation dose reduction. INDICATION: Respiratory issues. COMPARISON: Comparison is made with prior CT angiogram chest study from 11/02/2019. FINDINGS: Evaluation of the pulmonary arterial system does demonstrate several filling defects within segmental and subsegmental pulmonary arteries involving bilateral upper and bilateral lower lobes. No central pulmonary emboli are identified. No saddle embolus is identified. The thoracic aorta appears to be normal caliber. No dissection is seen. There is no pericardial or pleural fluid identified. Cardiac pacemaker is in place. Parenchymal evaluation again demonstrates centrilobular emphysematous changes in both lungs. No parenchymal infiltrate is seen. Upper abdomen again demonstrates low-density lesions involving bilateral kidneys suggestive of cysts. IMPRESSION: 1. Findings consistent with bilateral pulmonary emboli. 2. Bilateral renal cysts. Dictated by: Dictated on workstation # [id number]
--- NOTE | 2019-12-25 14:27 | NUR ---
TALKING TO THE PT AT THIS TIME.
--- NOTE | 2019-12-25 14:30 | NUR ---
CENTRAL OFFICE OPERATOR CONTACTED FOR A BED.
--- NOTE | 2019-12-25 14:35 | NUR ---
DR MCLAUGHLIN TALKING WITH PT'S VIA PHONE AT THIS TIME.
--- OUTSIDE RECORDS SUMMARY | 2019-12-25 15:05 | XMS REPORT | Continuity of Care Document ---
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 01/05/2011 Ot 414.8 CHR ISCHEMIC HRT [...] 530.81 ESO PHAGEAL REFLUX 01/05/2011 Ot 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, UNSPECIFIED 01/05/2011 Ot E944.4 [...] W/O SUB FALL NEC 10/14/2011 Ot V06.1 [id number], COMBINED [ 10/09/2012 Ot 263.9 PROT EIN-JUANA MALNUTR NOS 10/09/2012 Ot 272.4 HYPE RLIPIDEMIA NEC/NOS 10/09/2012 Ot 276.1 HYPO SMOLALITY 10/09/2012 Ot 276.8 HYPO POTASSEMIA 10/09/2012 Ot 285.9 ANEM IA NOS 10/09/2012 Ot 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) 10/09/2012 Ot 345.90 EPI LEPSY UNSPEC W/O MENTION INTRACTABLE 10/09/2012 Ot 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 10/09/2012 Ot 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 10/09/2012 Ot 414.8 CHR ISCHEMIC HRT [...] E Ot 414.0 1 CORONARY ATHEROSCLEROSIS OF [place] CORON 05/25/2014 JOHANNA WARREN MD Ot 414.8 [...] V45.8 2 PERCUTANEOUS TRANSLUM CORON ANGIOPLASTY 05/25/2014 JOHANNA WARREN MD Ot V46.2 SUPPLEMENTAL OXYGEN 05/25/2014 JOHANNA WARREN MD Ot V54.1 1 AFTERCARE HEALING TRAUMATIC FX UPPER ARM 05/25/2014 JOHANNA WARREN MD Ot V57.8 9 REHABILITATION PROC [facility] 07/15/2014 FRANCOIS DO, PEARL F Ot V54.11 [...] 08/04/2014 JOY DO, RONAK Ot V54.11 08/04/2014 JOY DO, RONAK Ot V57.21 08/16/2014 HERNAN THIBODEAUX Ot 873.42 OPEN WOUND OF FOREHEAD 08/16/2014 HERNAN THIBODEAUX Ot 910.0 ABRASION HEAD 08/16/2014 HERNAN THIBODEAUX Ot 959.01 HEAD INJURY, NOS 08/16/2014 HERNAN THIBODEAUX Ot E000.8 OTHER EXTERNAL CAUSE STATUS 08/16/2014 HERNAN THIBODEAUX Ot E849.7 ACCID IN RESIDENT INSTIT 08/16/2014 HERNAN THIBODEAUX Ot E888.9 FALL NOS 08/16/2014 HERNAN THIBODEAUX Ot V06.1 [id number], COMBINED [ 08/17/2014 RONAK JOY DO Ot [...] JOY DO Ot 959.6 09/07/2014 KADE GAO [facility], [facility] FACP CCDS Ot 397.0 09/07/2014 KADE SONG, [facility] FACP CCDS Ot 414.00 09/07/2014 KADE GAO [facility], [facility] FACP CCDS Ot 414.8 09/07/2014 KADE GAO [facility], [facility] FACP CCDS Ot 424.0 09/07/2014 KADE GAO [facility], [facility] CCD[facility] Ot 427.41 09/07/2014 KADE GAO [facility], [facility] FACP CCDS Ot 780.79 09/07/2014 KADE GAO [facility], [facility] CCDS Ot V45.02 09/07/2014 FRANCOIS DO PEARL [...] DOI Ot 311 DEPRESSIVE DISORDER NEC 09/22/2014 DWAYNE JOY DOI Ot 345.90 EPILEPSY UNSPEC W/O MENTION INTRACTABLE 09/22/2014 RONAK JOY DO Ot 414.01 CORONARY ATHEROSCLEROSIS OF [place] CORON 09/22/2014 DWAYNE JOY DOI Ot 414.8 [...] JOY DOI Ot 414.01 CORONARY ATHEROSCLEROSIS OF [place] CORON 09/28/2014 DWAYNE JOY DOI Ot 414.8 [...] FACP CCDS Ot 414.01 CORONARY ATHEROSCLEROSIS OF [place] CORON 05/10/2015 DANNIELLE BRAUN MD, FACCP CCDS [...] STATUS 11/22/2015 MARY HERRING DO, Ot Z79.82 RETIREMENT (CURRENT) USE OF ASPIRIN 11/22/2015 MARY HERRING DO, Ot Z79.899 OTHER MACHINE GUN MECHANIC (CURRENT) DRUG THERAPY 11/23/2015 MARY HERRING DO, [...] 12/29/2015 Ot 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 12/29/2015 Ot 786.09 RES PIRATORY ABNORM [...] IMPLANTABLE CARDIAC DEFIBRILLATOR I 01/06/2016 GRECIA FOSTER FARE COLLECTOR Ot N50 .8 OTHER SPECIFIED DISORDERS OF MALE GENITA 01/09/2016 GRECIA FOSTER FARE COLLECTOR Ot N50 .8 OTHER SPECIFIED DISORDERS OF MALE GENITA 01/09/2016 GRECIA FOSTER FARE COLLECTOR Ot N43 .3 HYDROCELE, UNSPECIFIED 01/09/2016 GRECIA FOSTER FARE COLLECTOR Ot N45 .1 EPIDIDYMITIS 01/10/2016 GRECIA FOSTER FARE COLLECTOR Ot N43 .3 HYDROCELE, UNSPECIFIED 01/10/2016 GRECIA FOSTER FARE COLLECTOR Ot N45 .1 EPIDIDYMITIS 01/19/2016 KADE GAO FACC, DANNIELLE FACP CCDS Ot I25.10 ATHSCL HEART DISEASE OF [place] CORONARY 01/19/2016 DANNIELLE BRAUN MD, FACC FACP CCDS Ot I25.5 ISCHEMIC CARDIOMYOPATHY 01/26/2016 GRECIA FOSTER FARE COLLECTOR Ot N43 .3 HYDROCELE, UNSPECIFIED 01/26/2016 GRECIA FOSTER FARE COLLECTOR Ot N45 .1 EPIDIDYMITIS 06/18/2016 Ot 715.95 OST EOARTHROS NOS- PELVIS 06/18/2016 Ot 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 06/18/2016 Ot 786.09 RES PIRATORY ABNORM [...] CCDS Ot I25.10 ATHSCL HEART DISEASE OF [place] CORONARY 06/18/2016 KADE GAO FACC, ALI FACP CCDS Ot I25.5 ISCHEMIC CARDIOMYOPATHY 06/18/2016 GRECIA FOSTER FARE COLLECTOR Ot N43 .3 HYDROCELE, UNSPECIFIED 06/18/2016 GRECIA FOSTER FARE COLLECTOR Ot N45 .1 EPIDIDYMITIS 07/19/2016 RINKU MELENDEZ Ot M54.32 SCIATICA, LEFT SIDE 08/01/2016 RINKU MELENDEZ Ot M54.32 SCIATICA, LEFT SIDE 08/14/2016 RINKU MELENDEZ Ot M54.32 SCIATICA, LEFT SIDE 08/16/2016 KADE GAO FACC, ALI FACP CCDS Ot G47.30 SLEEP APNEA, UNSPECIFIED 08/16/2016 KADE GAO FACC, ALI FACP CCDS Ot I25.10 ATHSCL HEART DISEASE OF [place] CORONARY 08/16/2016 KADE GAO FACC, ALI FACP [...] CCDS Ot I25.10 ATHSCL HEART DISEASE OF [place] CORONARY 08/21/2016 KADE GAO FACC, ALI FACP [...] CCDS Ot I25.10 ATHSCL HEART DISEASE OF [place] CORONARY 09/11/2016 KADE GAO FACC, ALI FACP [...] CCDS Ot I25.10 ATHSCL HEART DISEASE OF [place] CORONARY 01/30/2017 KADE GAO FACC, ALI FACP [...] CCDS Ot I25.10 ATHSCL HEART DISEASE OF [place] CORONARY 02/01/2017 KADE GAO FACC, ALI FACP [...] CCDS Ot I25.10 ATHSCL HEART DISEASE OF [place] CORONARY 02/01/2017 KADE GAO FACC, ALI FACP [...] CCDS Ot I25.10 ATHSCL HEART DISEASE OF [place] CORONARY 02/01/2017 KADE GAO FACC, ALI FACP [...] CCDS Ot I25.10 ATHSCL HEART DISEASE OF [place] CORONARY 02/01/2017 KADE SONGC, ALI FACP CCDS [...] CCDS Ot I25.10 ATHSCL HEART DISEASE OF [place] CORONARY 02/01/2017 KADE GAO FACC, ALI FACP [...] CCDS Ot I25.10 ATHSCL HEART DISEASE OF [place] CORONARY 02/01/2017 KADE GAO FACC, ALI FACP [...] CCDS Ot I25.10 ATHSCL HEART DISEASE OF [place] CORONARY 02/19/2017 KADE GAO FACC, ALI FACP [...] 8 ENCOUNTER FOR OTHER SPECIFIED PROPHYLACT 03/05/2018 LULVIA ALMONTE MD Ot Z29. 8 ENCOUNTER FOR [...] CCDS Ot I25.10 ATHSCL HEART DISEASE OF [place] CORONARY 04/22/2018 KADE GAO FACC, DANNIELLE FACP CCDS Ot I25.5 ISCHEMIC CARDIOMYOPATHY 04/22/2018 GRECIA FOSTER FARE COLLECTOR Ot N43 .3 HYDROCELE, UNSPECIFIED 04/22/2018 GRECIA FOSTER FARE COLLECTOR Ot N45 .1 EPIDIDYMITIS 04/22/2018 KADE GAO FACC, DANNIELLE FACP CCDS Ot G47.30 SLEEP APNEA, UNSPECIFIED 04/22/2018 KADE GAO FAC, ALI FACP CCDS Ot I25.10 ATHSCL HEART DISEASE OF [place] CORONARY 04/22/2018 KADE GAO FACC, ALI FACP [...] CCDS Ot I25.10 ATHSCL HEART DISEASE OF [place] CORONARY 04/22/2018 KADE GAO FACC, ALI FACP CCDS Ot I25.5 ISCHEMIC CARDIOMYOPATHY 04/22/2018 KADE GOA FACC, ALI FACP CCDS Ot I65.23 OCCLUSION AND STENOSIS OF [place] 04/22/2018 KADE GAO [facility], ALI FACP CCDS Ot I70.0 ATHEROSCLEROSIS OF [place] 04/22/2018 KADE GAO [facility], ALI FACP CCDS Ot I73.9 PERIPHERAL VASCULAR DISEASE, UNSPECIFIED 04/22/2018 KADE GAO FAC, ALI FACP CCDS Ot 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 04/22/2018 KADE GAO [facility], ALI FACP CCDS Ot Z95.810 [...] CCDS Ot I25.10 ATHSCL HEART DISEASE OF [place] CORONARY 09/03/2018 KADE GAO FACC, ALI FACP CCDS Ot I25.5 ISCHEMIC CARDIOMYOPATHY 09/03/2018 GRECIA FOSTER FARE COLLECTOR Ot N43 .3 HYDROCELE, UNSPECIFIED 09/03/2018 GRECIA FOSTER FARE COLLECTOR Ot N45 .1 EPIDIDYMITIS 09/03/2018 KADE GAO FACC, ALI FACP CCDS Ot G47.30 SLEEP APNEA, UNSPECIFIED 09/03/2018 KADE GAO FACC, ALI FACP CCDS Ot I25.10 ATHSCL HEART DISEASE OF [place] CORONARY 09/03/2018 KADE GAO FACC, ALI FACP CCDS Ot I25.5 ISCHEMIC CARDIOMYOPATHY 09/03/2018 KADE SONG, ALI FACP CCDS Ot I65.23 OCCLUSION AND STENOSIS OF [place] 09/03/2018 KADE GAO FACC, ALI FACP CCDS Ot R53.1 WEAKNESS 09/03/2018 KADE GAO [facility], ALI FACP CCDS Ot Z95.810 PRESENCE OF AUTOMATIC (IMPLANTABLE) CARD 09/03/2018 KADE GAO FACC, ALI FACP CCDS Ot I25.10 ATHSCL HEART DISEASE OF [place] CORONARY 09/03/2018 KADE SONG, ALI FACP CCDS [...] GASTRO-ESOPHAGEAL REFLUX DISEASE WITHOUT 09/03/2018 KADE GAO [facility], ALI FACP CCDS Ot Z95.810 [...] CCDS Ot I25.10 ATHSCL HEART DISEASE OF [place] CORONARY 09/03/2018 KADE GAO FACC, ALI FACP CCDS Ot I25.5 ISCHEMIC CARDIOMYOPATHY 09/03/2018 GRECIA FOSTER FARE COLLECTOR Ot N43 .3 HYDROCELE, UNSPECIFIED 09/03/2018 GRECIA FOSTER FARE COLLECTOR Ot N45 .1 EPIDIDYMITIS 09/03/2018 KADE GAO FACC, ALI FACP CCDS Ot G47.30 SLEEP APNEA, UNSPECIFIED 09/03/2018 KADE GAO FACC, ALI FACP CCDS Ot I25.10 ATHSCL HEART DISEASE OF [place] CORONARY 09/03/2018 KADE GAO FACC, ALI FACP [...] CCDS Ot I25.10 ATHSCL HEART DISEASE OF [place] CORONARY 09/03/2018 KADE GAO FACC, ALI FACP [...] PENN Ot I25.10 ATHSCL HEART DISEASE OF [place] CORONARY 01/22/2019 CARIE PENN Ot I34.0 NONRHEUMATIC [...] CCDS Ot I25.10 ATHSCL HEART DISEASE OF [place] CORONARY 03/12/2019 KADE GAO FACC, DANNIELLE FACP CCDS Ot I25.5 ISCHEMIC CARDIOMYOPATHY 03/12/2019 GRECIA FOSTER FARE COLLECTOR Ot N43 .3 HYDROCELE, UNSPECIFIED 03/12/2019 GRECIA FOSTRE FARE COLLECTOR Ot N45 .1 EPIDIDYMITIS 03/12/2019 KADE GAO FACC, ALI FACP CCDS Ot G47.30 SLEEP APNEA, UNSPECIFIED 03/12/2019 KADE GAO FACC, ALI FACP CCDS Ot I25.10 ATHSCL HEART DISEASE OF [place] CORONARY 03/12/2019 KADE GAO FACC, DANNIELLE FACP [...] CCDS Ot I25.10 ATHSCL HEART DISEASE OF [place] CORONARY 03/12/2019 KADE GAO FACC, ALI FACP [...] I63.9 CEREBRAL INFARCTION, UNSPECIFIED 03/12/2019 CARIE PENN TAPER MACHINE Ot I25.10 ATHSCL HEART DISEASE OF [place] CORONARY 03/12/2019 CARIE PENN TAPER MACHINE Ot I34.0 NONRHEUMATIC MITRAL (VALVE) INSUFFICIENC 03/12/2019 CARIE PENN TAPER MACHINE Ot R06.09 OTHER FORMS OF DYSPNEA 03/13/2019 JEFFERY AYERS MD Ot F32. 9 MAJOR DEPRESSIVE DISORDER, SINGLE EPISOD 03/13/2019 JEFFERY AYERS MD Ot G40.909 EPILEPSY, UNSP, NOT INTRACTABLE, WITHOUT 03/13/2019 JEFFERY AYERS MD Ot I10 ESSENTIAL (PRIMARY) HYPERTENSION 03/13/2019 JEFFERY AYERS MD Ot J44. 9 CHRONIC OBSTRUCTIVE PULMONARY DISEASE, U 03/13/2019 JEFFERY AYERS MD Ot R40.2142 COMA SCALE, [...] JEFFERY AYERS MD Ot Y92.003 [facility] OF [facility] NON-INSTITUT (PRIVATE) R 03/13/2019 JEFFERY AYERS MD Ot Z79. 82 RETIREMENT (CURRENT) USE OF ASPIRIN 03/13/2019 JEFFERY AYERS MD Ot Z82. 49 FAMILY HX OF ISCHEM HEART DIS AND OTH DI 03/13/2019 JEFFERY AYERS MD Ot Z86. 73 PRSNL HX OF TIA (TIA), AND CEREB INFRC W 03/13/2019 JEFFERY AYERS MD Ot Z88. 8 ALLERGY STATUS TO [facility] DRUG/MEDS/BIOL SUB 03/13/2019 JEFFERY AYERS MD Ot [...] JEFFERY AYERS MD Ot Y92.003 [facility] NON-INSTITUT (PRIVATE) R 03/18/2019 JEFFERY AYERS MD Ot Z79. 82 MACHINE GUN MECHANIC (CURRENT) USE OF ASPIRIN 03/18/2019 JEFFERY AYERS [...] TO OTHER SPECIFIED FACTORS, SUB 03/28/2019 HERNAN THIBOEDAUX Ot F32.9 MAJOR DEPRESSIVE DISORDER, SINGLE EPISOD [...] Z 23 ENCOUNTER FOR IMMUNIZATION 03/28/2019 HERNAN THBIODEAUX Ot Z79.82 RETIREMENT (CURRENT) USE OF ASPIRIN 03/28/2019 HERNAN THIBODEAUX [...] FOR IMMUNIZATION 04/01/2019 HERNAN THIBODEAUX Ot Z79.82 RETIREMENT (CURRENT) USE OF ASPIRIN 04/01/2019 HERNAN THIBODEAUX [...] CCDS Ot I25.10 ATHSCL HEART DISEASE OF [place] CORONARY 06/03/2019 KADE GAO FACC, ALI FACP CCDS Ot I25.5 ISCHEMIC CARDIOMYOPATHY 06/03/2019 GRECIA FOSTER FARE COLLECTOR Ot N43 .3 HYDROCELE, UNSPECIFIED 06/03/2019 GRECIA FOSTER FARE COLLECTOR Ot N45 .1 EPIDIDYMITIS 06/03/2019 KADE GAO FACC, ALI FACP CCDS Ot G47.30 SLEEP APNEA, UNSPECIFIED 06/03/2019 KADE GAO FACC, ALI FACP CCDS Ot I25.10 ATHSCL HEART DISEASE OF [place] CORONARY 06/03/2019 KADE GAO FACC, ALI FACP [...] CCDS Ot I25.10 ATHSCL HEART DISEASE OF [place] CORONARY 06/03/2019 KADE GAO FAC, ALI FACP CCDS Ot I25.5 ISCHEMIC CARDIOMYOPATHY 06/03/2019 KADE GAO FAC, ALI FACP CCDS Ot I65.23 OCCLUSION AND STENOSIS OF [place] 06/03/2019 KADE GAO [facility], ALI FACP CCDS Ot I70.0 ATHEROSCLEROSIS OF [place] 06/03/2019 AKDE GAO FAC, ALI FACP CCDS Ot I73.9 PERIPHERAL VASCULAR DISEASE, UNSPECIFIED 06/03/2019 KADE GAO [facility], ALI FACP CCDS Ot 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 06/03/2019 KADE GAO [facility], ALI FACP CCDS Ot Z95.810 PRESENCE OF AUTOMATIC (IMPLANTABLE) CARD 06/03/2019 RONAK JOY DO Ot I63.9 CEREBRAL INFARCTION, UNSPECIFIED 06/03/2019 CARIE PENN TAPER MACHINE Ot I25.10 ATHSCL HEART DISEASE OF [place] CORONARY 06/03/2019 CARIE PENNP Ot I34.0 NONRHEUMATIC MITRAL (VALVE) INSUFFICIENC 06/03/2019 CARIE PENN TAPER MACHINE Ot R06.09 OTHER FORMS OF DYSPNEA 06/03/2019 [...] CCDS Ot I25.10 ATHSCL HEART DISEASE OF [place] CORONARY 06/05/2019 KADE GAO FACC, ALI FACP CCDS Ot I25.5 ISCHEMIC CARDIOMYOPATHY 06/05/2019 GRECIA FOSTER FARE COLLECTOR Ot N43 .3 HYDROCELE, UNSPECIFIED 06/05/2019 GRECIA FOSTER FARE COLLECTOR Ot N45 .1 EPIDIDYMITIS 06/05/2019 KADE GAO FACC, ALI FACP CCDS Ot G47.30 SLEEP APNEA, UNSPECIFIED 06/05/2019 KADE GAO FACC, ALI FACP CCDS Ot I25.10 ATHSCL HEART DISEASE OF [place] CORONARY 06/05/2019 KADE GAO FACC, ALI FACP [...] CCDS Ot I25.10 ATHSCL HEART DISEASE OF [place] CORONARY 06/05/2019 KADE GAO FAC, ALI FACP [...] I63.9 CEREBRAL INFARCTION, UNSPECIFIED 06/05/2019 CARIE PENN TAPER MACHINE Ot I25.10 ATHSCL HEART DISEASE OF [place] CORONARY 06/05/2019 CARIE PENN TAPER MACHINE Ot I34.0 NONRHEUMATIC MITRAL (VALVE) INSUFFICIENC 06/05/2019 CARIE PENN TAPER MACHINE Ot R06.09 OTHER FORMS OF DYSPNEA 06/05/2019 [...] RONAK Ot Z91.81 HISTORY OF FALLING 08/12/2019 JULISSA VASQUEZ MD Ot R26.8 1 UNSTEADINESS [...] CCDS Ot I25.10 ATHSCL HEART DISEASE OF [place] CORONARY 08/13/2019 KADE GAO FACC, ALI FACP CCDS Ot I25.5 ISCHEMIC CARDIOMYOPATHY 08/13/2019 GRECIA FOSTER FARE COLLECTOR Ot N43 .3 HYDROCELE, UNSPECIFIED 08/13/2019 GRECIA FOSTER FARE COLLECTOR Ot N45 .1 EPIDIDYMITIS 08/13/2019 KADE GAO FACC, ALI FACP CCDS Ot G47.30 SLEEP APNEA, UNSPECIFIED 08/13/2019 KADE MD FACC, ALI FACP CCDS Ot I25.10 ATHSCL HEART DISEASE OF [place] CORONARY 08/13/2019 KADE GAO FACC, ALI FACP [...] CCDS Ot I25.10 ATHSCL HEART DISEASE OF [place] CORONARY 08/13/2019 KADE GAO FAC, ALI FACP CCDS Ot I25.5 ISCHEMIC CARDIOMYOPATHY 08/13/2019 KADE GAO FAC, ALI FACP CCDS Ot I65.23 OCCLUSION AND STENOSIS OF [place] 08/13/2019 KADE GAO FAC, ALI FACP CCDS Ot I70.0 ATHEROSCLEROSIS OF [place] 08/13/2019 KADE GAO [facility], ALI FACP CCDS Ot I73.9 PERIPHERAL VASCULAR DISEASE, UNSPECIFIED 08/13/2019 KADE GAO FAC, ALI FACP CCDS Ot 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 08/13/2019 KADE GAO [facility], ALI FACP CCDS Ot Z95.810 PRESENCE OF AUTOMATIC (IMPLANTABLE) CARD 08/13/2019 RONAK JOY DO Ot I63.9 CEREBRAL INFARCTION, UNSPECIFIED 08/13/2019 CARIE PENN TAPER MACHINE Ot I25.10 ATHSCL HEART DISEASE OF [place] CORONARY 08/13/2019 CARIE PENN TAPER MACHINE Ot I34.0 NONRHEUMATIC MITRAL (VALVE) INSUFFICIENC 08/13/2019 CARIE PENN TAPER MACHINE Ot R06.09 OTHER FORMS OF DYSPNEA 08/13/2019 [...] Ot Z91.8 1 HISTORY OF FALLING 08/17/2019 OJY DO, RONAK Ot R26.81 UNSTEADINESS ON FEET [...] Ot I25. 10 ATHSCL HEART DISEASE OF [place] CORONARY 11/05/2019 CALI BUCKLEY MD, Ot I25. [...] Ot I25. 10 ATHSCL HEART DISEASE OF [place] CORONARY 11/06/2019 CALI BUCKLEY MD Ot I25. [...] Ot I25. 10 ATHSCL HEART DISEASE OF [place] CORONARY 11/06/2019 CALI BUCKLEY MD, Ot I25. [...] RONAK Ot I25.10 ATHSCL HEART DISEASE OF [place] CORONARY 11/12/2019 JOY DO, RONAK Ot I25.5 [...] RONAK Ot I25.10 ATHSCL HEART DISEASE OF [place] CORONARY 11/13/2019 BENITA ESTRADA RONAK Ot I25.5 [...] ESTRADA RONAK Ot J10.1 FLU DUE TO [facility] IDENT INFLUENZA VIRUS W O 11/13/2019 BENITA [...] Ot E03.9 HYPOTHYROIDISM, UNSPECIFIED 11/13/2019 JOY DO, RONAK Ot E78.5 HYPERLIPIDEMIA, UNSPECIFIED 11/13/2019 JOY DO, [...] RONAK Ot I25.10 ATHSCL HEART DISEASE OF [place] CORONARY 11/13/2019 JOY DO, RONAK Ot I25.5 [...] I21.4 NON-ST ELEVATION (NSTEMI) MYOCARDIAL INF 11/13/2019 JYO DO, RONAK Ot I25.10 ATHSCL HEART DISEASE OF [place] CORONARY 11/13/2019 JOY DO, RONAK Ot I25.5 [...] ACUTE RESPIRATORY FAILURE WITH HYPOXIA 11/16/2019 TOMMIE GRJAEDA MD Ot Z66 DO NOT RESUSCITATE 11/16/2019 [...] i.cardiac measurement (mass/v olume) 0.041 ng/mL <0.028 [id number] - 11/02/19 18:30 [id number] 0.69 ng/mL 0.80-2.00 Serum or plasma lithium [...] plasma calcium measurement (mass/volume) 9.6 mg/dL 8.5-10.1 [id number] - 11/03/19 10:20 [id number] 0.44 ng/mL 0.80-2.00 PROCALCITONIN (PCT) - 11/03/19 [...] culture - 11/11/19 06:52 Bacterial urine culture [id number] NRG COLONY COUNT 20,000 CFU/ML NRG FTX;REPORTABLE SUSCEPTIBILITY REPORTED 11/13 12:05 NRG FREE TEXT ENTRY 2 PRELIM RAPID ID BY [facility] 11-12-19 [id number]. NRG FREE TEXT ENTRY 3 ID CONFIRMED [...] - 11/13/19 04:50 Magnesium 2.3 mg/dL 1.6-2.4 Complete blood count (CBC) with automate d white blood cell (WBC) differential - 12/25/19 12:30 Blood leukocytes automated count (number/volume) 10.1 10*3/uL 4.3-11.0 Blood erythrocytes automated count (number/volume) 3.60 10*6/uL 4.35-5.85 Venous blood hemoglobin measurement (mass/volume) 11.5 g/dL 13.3-17.7 Blood hematocrit (volume fraction) 34 % 40-54 Automated erythrocyte mean corpuscular volume 95 [ foz_us] 80-99 Automated erythrocyte mean corpuscular h emoglobin (mass per erythrocyte) 32 pg 25-34 Automated erythrocyte mean corpuscular h emoglobin concentration measurement (mass/volume) 34 g/dL 32-36 Automated erythrocyte distribution width ratio 15. 3 % 10.0- 14.5 Automated blood platelet count (count/volume) 197 10*3/uL 130-400 Automated blood platelet mean volume measurement 9.9 [foz_us] 7.4-10.4 Automated blood neutrophils/100 leukocytes 73 % 42-75 Automated blood lymphocytes/100 leukocytes 12 % 12-44 Blood monocytes/100 leukocytes 14 % 0-12 Automated blood eosinophils/100 leukocytes 2 % 0-10 Automated blood basophils/100 leukocytes 0 % 0-10 Blood neutrophils automated count (number/volume) 7.4 10*3 1.8-7.8 Blood lymphocytes automated count (number/volume) 1.2 10*3 1.0-4.0 Blood monocytes automated count (number/volume) 1. 4 10*3 0.0-1.0 Automated eosinophil count 0.2 10*3/uL 0 .0-0.3 Automated blood basophil count (count/volume) 0.0 10*3/uL 0.0-0.1 Blood lactic acid measurement (moles/vol ume) - 12/25/19 12:30 Blood lactic acid measurement (moles/volume) 0.68 mmol/L 0.50-2.00 Comprehensive metabolic panel - 12/25/19 12:30 Serum or plasma sodium measurement (moles/volume) 136 mmol/L 135-145 Serum or plasma potassium measurement (moles/volume) 4.4 mmol/L 3.6-5.0 Serum or plasma chloride measurement (moles/volume) 101 mmol/L 98-107 Carbon dioxide 24 mmol/L 21-32 Serum or plasma anion gap determination (moles/volume) 11 mmol/L 5-14 Serum or plasma urea nitrogen measurement (mass/volume ) 16 mg/dL 7-18 Serum or plasma creatinine measurement (mass/volume) 0.92 mg/dL 0.60-1.30 Serum or plasma urea nitrogen/creatinine mass ratio 17 NRG Serum or plasma creatinine measurement w ith calculation of estimated glomerular filtration rate > NRG Serum or plasma glucose measurement (mass/volume) 124 mg/dL 70-105 Serum or plasma calcium measurement (mass/volume) 8.7 mg/dL 8.5-10.1 Serum or plasma total bilirubin measurement (mass/volu me) 0.5 mg/dL 0.1-1.0 Serum or plasma alkaline phosphatase giovanni surement (enzymatic activity/volume) 111 U/L 40-136 Serum or plasma aspartate aminotransfera se measurement (enzymatic activity/volume) 27 U/L 5-34 Serum or plasma alanine aminotransferase measurement (enzymatic activity/volume) 29 U/L 0-55 Serum or plasma protein measurement (mass/volume) 7.9 g/dL 6.4-8.2 Serum or plasma albumin measurement (mass/volume) 3.5 g/dL 3.2-4.5 CALCIUM CORRECTED 9.1 mg/dL 8.5-10.1 Erythrocyte sedimentation rate by nithin gren method - 12/25/19 12:30 Erythrocyte sedimentation rate by westergren method 80 mm 0- 30 Magnesium - 12/25/19 12:30 Magnesium 2.2 mg/dL 1.6-2.4 Serum ragweed IgE antibody assay - 12/24 12:30 Serum ragweed IgE antibody assay 199 U/L 125-220 PROCALCITONIN (PCT) - 12/25/19 12:30 PROCALCITONIN (PCT) 0.11 ng/mL <0.10 PT panel in platelet poor plasma by coag ulation assay - 12/25/19 12:30 Prothrombin time (PT) in platelet poor plasma by coagu lation assay 13.6 s 12.2-14.7 INR in platelet poor plasma or blood by coagulation as say 1.0 0.8-1.4 Activated partial thromboplastin time (a PTT) in platelet poor plasma bycoagulation assay - 12/25/19 12:30 Activated partial thromboplastin time (a PTT) in platelet poor plasma bycoagulation assay 37 s 24-35 Fibrin D-dimer FEU measurement in platel et poor plasma (mass/volume) - 12/25/19 12:30 Fibrin D-dimer FEU measurement in platelet poor plasma (mass/volume) 2.33 ug/mL 0.00-0.49 Serum or plasma creatine kinase measurem ent (enzymatic activity/volume) - 12/25/19 12:30 Serum or plasma creatine kinase measurem ent (enzymatic activity/volume) 27 U/L 30-200 Serum or plasma creatine kinase MB measu rement (enzymatic activity/volume) - 12/25/19 12:30 Serum or plasma creatine kinase MB measu rement (enzymatic activity/volume) 0.9 ng/mL <6.6 Serum or plasma troponin i.cardiac measu rement (mass/volume) - 12/25/19 12:30 Serum or plasma troponin i.cardiac measurement (mass/v olume) 0.029 ng/mL <0.028 Serum or plasma lithium measurement (mol es/volume) - 12/25/19 12:30 BNP PT 293.1 pg/mL <100.0 Myoglobin, serum - 12/25/19 12:30 Myoglobin, serum 60.9 ng/mL 10.0-92.0 Serum or plasma C reactive protein measu rement (mass/volume) - 12/25/19 12:30 Serum or plasma C reactive protein measurement (mass/v olume) 15.57 mg/dL 0.00-0.50 [id number] - 12/25/19 12:30 [id number] 1.05 ng/mL 0.80-2.00 Influenza virus A and B antigen detectio n - 12/25/19 12:50 FLU RESULT NEGATIVE FOR INFLUENZA A AND B ANTIGENS BY IA NRG Arterial blood gas measurement - 0 12:51 Blood pCO2 48 mm[Hg] 35-45 Blood pO2 50 mm[Hg] 79-93 Arterial blood bicarbonate measurement (moles/volume) 30 mmol/L 23-27 Arterial blood base excess by calculation 5.0 mmol /L -2.5-2.5 Arterial blood oxygen saturation measurement 79 % 94-100 * Inhaled oxygen flow rate 2 NRG Arterial blood pH measurement with patient temperature correction 7.41 7.37-7.43 Arterial blood carbon dioxide, total measurement (mole s/volume) 31.0 mmol/L 21.0-31.0 Body site RT RAD NRG Assessment of wrist artery patency prior to arterial p uncture YES-POS NRG Setting of ventilation mode NO NR G Measurement of body temperature 37 NRG Complete urinalysis with reflex to cultu re - 12/25/19 13:56 Urine color determination YELLOW NRG Urine clarity determination CLEAR NR G Urine pH measurement by test strip 6.0 5-9 Specific gravity of urine by test strip 1.010 1.016-1.022 Urine protein assay by test strip, semi-quantitative 1+ NEGATIVE Urine glucose detection by automated test strip NE GATIVE NEGATIVE Erythrocytes detection in urine sediment by light micr oscopy TRACE-I NEGATIVE Urine ketones detection by automated test strip NE GATIVE NEGATIVE Urine nitrite detection by test strip NEGATIVE NEGATIVE Urine total bilirubin detection by test strip NEGA TIVE NEGATIVE Urine urobilinogen measurement by automated test strip (mass/volume) 1.0 mg/dL < = 1.0 Urine leukocyte esterase [...] urinalysis with reflex to culture YES NRG Encounters ACCT No. Visit Date/Time Discharge Status Pt. Type Provider Facility Loc./Unit Complaint [id number] 10/06/2019 08:41:00 10/06/2019 23:59 :00 DIS Outpatient NYA ZUNIGA [id number] 10/30/2019 13:34:00 00:01:00 DIS Outpatient SUZY GAO, LLUVIA Major [facility] CR3 CARDIAC REHAB PHASE 3 [id number] 11/13/2019 13:25:00 13:43:00 DIS Inpatient NICCI GAO, TOMMIE Gayle [facility] 4TH INFLUENZA [id number] 11/10/2019 05:35:00 12:58:00 DIS Inpatient JOY DO, RONAK V [facility] 4TH RESPIRATORY FAILURE [id number] 11/06/2019 11:08:00 09:38:00 DIS Inpatient JOY DO, RONAK V [facility] IRF DEBILITY [id number] 10/29/2019 10:21:00 00:01:00 DIS Outpatient JULISSA VASQUEZ MD [facility] REHAB GENERAL WEAKNESS;LACK O F COORDINATION [id number] 11/02/2019 18:19:00 11:08:00 DIS Inpatient CALI BUCKLEY MD [facility] 4TH AE CHF [id number] 10/16/2019 13:11:00 00:01:00 DIS Outpatient LLUVIA ALMONTE MD Via [place] [address] CARDIAC REHAB PHASE 3 [id number] 08/12/2019 00:10:00 23:59:59 CLS Preadmit CHRISTINA GAO, [facility]ULISSA [facility];LACK O F COORDINATION [id number] 06/17/2019 10:12:00 00:01:00 DIS Outpatient JOY DO RONAK [facility] REHAB UNSTEADY GAIT;L UE WEAK NESS [id number] 05/27/2019 14:00:00 00:01:00 DIS Outpatient LLUVIA ALMONTE MD [facility] [place] [address] CARDIAC REHAB PHASE 3 [id number] 06/05/2019 12:47:00 23:59:59 CLS Outpatient JOY DO RONAK [facility] RAD CEREBRAL INFARCTION [id number] 05/29/2019 15:47:00 23:59:59 CLS Outpatient JOY DO, RONAK [facility] LAB WEAKNESS [id number] 05/22/2019 14:45:00 00:01:00 DIS Outpatient LLUVIA ALMONTE MD [facility] [place] [address] CARDIAC REHAB PHASE 3 [id number] 04/22/2019 14:02:00 00:01:00 DIS Outpatient LLUVIA ALMONTE MD [facility] [place] [address] CARDIAC REHAB PHASE 3 [id number] 04/20/2019 13:51:00 23:59:59 CLS Outpatient ELSA GUDINO MD [facility] WOUNDCARE [id number] 04/13/2019 13:57:00 23:59:59 CLS Outpatient ELSA GUDINO MD [facility] WOUNDCARE [id number] 03/28/2019 10:22:00 12:24:00 DIS Emergency JERROD CHAMBERS HERNAN L [facility] ER L ARM INJURY [id number] 03/25/2019 14:57:00 15:26:[address] RAMIRES FARE COLLECTOR [facility] ER STITCH REMOVAL [id number] 03/20/2019 13:22:00 00:01:00 DIS Outpatient LLUVIA ALMONTE MD [facility] CARDIAC REHAB PHASE 3 [id number] 03/12/2019 23:53:00 02:50:00 DIS Emergency JEFFERY AYERS MD [facility] ER FALL, RT EYE INJURY [id number] 02/18/2019 15:10:00 00:01:00 DIS Outpatient LLUVIA ALMONTE MD [facility] CARDIAC REHAB PHASE 3 [id number] 01/20/2019 11:46:00 23:59:59 CLS Outpatient CARIE PENN [facility] CARD CAD,MORAN [id number] 01/16/2019 14:56:00 00:01:00 DIS Outpatient LLUVIA ALMONTE MD [facility] CARDIAC REHAB PHASE 3 [id number] 12/12/2018 14:52:00 00:01:00 DIS Outpatient LLUVIA ALMONTE MD [facility] CARDIAC REHAB PHASE 3 [id number] 11/12/2018 15:34:00 00:01:00 DIS Outpatient LLUVIA ALMONTE MD [facility] CARDIAC REHAB PHASE 3 [id number] 10/10/2018 15:35:00 00:01:00 DIS Outpatient LLUVIA ALMONTE MD [facility] [place] [address] CARDIAC REHAB PHASE 3 [id number] 09/11/2018 12:55:00 019 12:20:00 DIS Outpatient ELSA ROBLEDO MD [facility] REHAB BALANCE [id number] 09/10/2018 14:49:00 019 00:01:00 DIS Outpatient LLUVIA ALMONTE MD [facility] [place] [address] CARDIAC REHAB PHASE 3 [id number] 09/01/2018 14:03:00 019 10:27:00 DIS Outpatient ELSA ROBLEDO MD [facility] REHAB BALANCE [id number] 08/06/2018 14:42:00 018 00:01:00 DIS Outpatient LLUVIA ALMONTE MD [facility] [place] [address] CARDIAC REHAB PHASE 3 [id number] 07/09/2018 13:45:00 018 00:01:00 DIS Outpatient LLUVIA ALMONTE MD [facility] [place] [address] CARDIAC REHAB PHASE 3 [id number] 06/06/2018 14:08:00 018 00:01:00 DIS Outpatient LLUVIA ALMONTE MD [facility] [place] [address] CARDIAC REHAB PHASE 3 [id number] 06/06/2018 12:56:00 018 14:34:00 DIS Outpatient DWAYNE JOY DOI [facility] REHAB UNSTEADINESS ON FEET [id number] 05/30/2018 12:54:00 018 00:01:00 DIS Outpatient BENITA DO RONAK [facility] REHAB UNSTEADINESS ON FEET [id number] 05/07/2018 16:05:00 018 00:01:00 DIS Outpatient LLUVIA ALMONTE MD [facility] [place] [address] CARDIAC REHAB PHASE 3 [id number] 04/24/2018 09:02:00 018 23:59:59 CLS Outpatient BENITA DO RONAK [facility] RAD CEREBARAL INFARCTION,UN SPECIFIED [id number] 03/31/2018 14:08:00 018 23:59:59 CLS Outpatient LLUVIA ALMONTE MD [facility] [place] [address] CARDIAC REHAB PHASE 3 [id number] 03/03/2018 16:35:00 018 00:01:00 DIS Outpatient LLUVIA ALMONTE MD [facility] [place] [address] CARDIAC REHAB PHASE 3 [id number] 01/31/2018 15:23:00 018 00:01:00 DIS Outpatient LLUVIA ALMONTE MD [facility] [place] [address] CARDIAC REHAB PHASE 3 [id number] 01/01/2018 15:16:00 018 00:01:00 DIS Outpatient LLUVIA ALMONTE MD [facility] [place] [address] CARDIAC REHAB PHASE 3 [id number] 10/07/2017 13:02:00 018 13:47:00 DIS Outpatient [facility]Z [facility]EN [facility] DEFICI [facility] [id number] 07/23/2017 14:00:00 017 14:41:00 DIS Outpatient ELSA VILLALPANDO DO [facility] Y;LUMBAR SPINAL STENOSIS [id number] 05/27/2017 13:27:00 017 00:01:00 DIS Outpatient ELSA [facility]ALPANDO DO [facility] Y;LUMBAR SPINAL STENOSIS [id number] 04/11/2017 14:35:00 017 00:01:00 DIS Outpatient ELSA VILLALPANDO DO [facility] REHAB GAIT ABNORMALIT Y;LUMBAR SPINAL STENOSIS [id number] 01/29/2017 12:41:00 017 23:59:59 CLS Outpatient DANNIELLE BRAUN MD, FACC, FACP DS [facility] RAD I25.10,I73. 9,I65.23 [id number] 08/15/2016 07:32:00 016 23:59:59 CLS Outpatient DANNIELLE BRAUN MD, FACC, FACP DS [facility] CARD WEAKNESS,CA D [id number] 07/19/2016 13:39:00 09:17:00 DIS Outpatient RINKU MELENDEZ [facility] REHAB SCIATICA [id number] 01/06/2016 11:34:00 016 23:59:59 CLS Outpatient GRECIA FOSTER FARE COLLECTOR [facility] RAD LT TESTICULAR PAIN NABEEL ITING TO LT GROIN [id number] 12/29/2015 07:28:00 016 23:59:59 CLS Outpatient KADE GAO FACAris, DANNIELLE CARDENAS CC DS [facility] CARD CAD,ISCHEMI C CARDIOMYOPATHY [id number] 11/22/2015 13:05:00 15:33:00 DIS Emergency MARY HERRING DO [facility] ER FALL, NOSE INJ, LEFT SH OULDER PAIN [id number] 05/10/2015 11:01:00 015 18:00:00 DIS Outpatient KADE GAO FACAris, DANNIELLE CARDENAS CC DS [facility] CATH PULSE GENER ATOR CHANGE [id number] 03/21/2015 00:10:00 23:59:59 CLS Preadmit RONAK JOY DO a [facility] REHAB [id number] 02/24/2015 08:27:00 015 00:01:00 DIS Outpatient RONAK JOY DO [facility] REHAB L ARM WEAKNESS [id number] 09/09/2014 10:22:00 11:19:00 DIS Outpatient RONAK JOY DO [facility] REHAB HAND THERAPY AFTER L SH OULDER FRACTURE [id number] 09/22/2014 12:22:00 14:35:00 DIS Inpatient RONAK JOY DO, V ia [facility] 4TH SWB--SEPSIS [id number] 09/09/2014 10:31:00 14:35:00 DIS Outpatient PEARL PARRISH DO [facility] REHAB L HUMERUS FX [id number] 09/19/2014 23:30:00 015 12:15:00 DIS Inpatient JOY DO, RONAK V ia [facility] ICU SEPSIS [id number] 08/16/2014 17:16:00 014 19:09:00 DIS Emergency HERNAN THIBODEAUX [facility] ER FALL,HEAD LAC [id number] 05/05/2014 11:50:00 014 16:03:00 DIS Inpatient BRIANA GAO, JOHANNA Lopez [facility] IRF FALL, [id number] 05/03/2014 22:50:00 014 11:50:00 DIS Inpatient JOY DO, RONAK V [facility] CSD NEW SYNCOPE,LEFT PROXIM AL HUMERUS FX,CARDIAC DYSRH [id number] 04/29/2014 07:46:00 014 23:59:59 CLS Outpatient KADE GAO FACC, DANNIELLE CARDENAS CC DS [facility] CARD WEAKNESS, I SCHEMIC CARDIOMYOPATHY [id number] 02/22/2014 16:03:00 014 23:59:59 CLS Outpatient [id number] 07/06/2013 10:48:00 23:59:59 CLS Outpatient BENITA ESTRADA RONAK [facility] RAD FALL,HIP,RIB PAIN,HEMAT URIA [id number] 12/25/2019 12:41:00 Document Registration [id number] 09/07/2014 14:10:00 Document Registration [id number] 09/07/2014 14:09:00 Document Registration [id number] 11/20/2012 13:16:00 Document Registration [id number] 10/09/2012 14:21:00 Document Registration [id number] 10/03/2012 07:43:00 Document Registration [id number] 06/11/2012 13:01:00 Document Registration [id number] 12/27/2011 08:04:00 Document Registration [id number] 10/14/2011 11:59:00 Document Registration [id number] 04/25/2011 13:00:00 Document Registration [id number] 01/01/2011 15:40:00 Document Registration [id number] 10/12/2010 05:41:00 Document Registration [id number] 10/09/2010 07:46:00 Document Registration [id number] 09/01/2010 20:38:00 Document Registration [id number] 04/03/2010 12:01:00 Document Registration [id number] 03/07/2010 09:45:00 Document Registration [id number] 12/27/2009 10:52:00 Document Registration [id number] 12/26/2009 09:02:00 Document Registration [id number] 11/01/2009 08:11:00 Document Registration [id number] 10/27/2009 15:46:00 Document Registration [id number] 10/27/2009 15:44:00 Document Registration [id number] 08/30/2009 12:29:00 Document Registration [id number] 07/15/2009 09:00:00 Document Registration [id number] 06/16/2009 14:36:00 Document Registration [id number] 05/13/2009 10:26:00 Document Registration
--- NOTE | 2019-12-25 15:28 | NUR ---
LLUVIA GOLDBERG admitted to room 433-1, with an admitting diagnosis of PUI, resp failure, CHF, bilateral PE, UTI, on 12/25/19 from ED, accompanied by Staff.LLUVIA GOLDBERG introduced to surroundings, call light, bed controls, phone, TV, temperature control, lights, meal times, smoking policy, visitor policy, side rail policy, bathrooms and showers. Patient Rights given to patient in the handbook. LLUVIA GOLDBERG verbalizes understanding that [facility] is not responsible for the loss or damage to any personal effects or valuables that are kept in the patients posession during their hospitalization. LLUVIA GOLDBERG verbalizes understanding of Interdisciplinary Patient Education. Patient and/or family were informed about the Rapid Response Team and its purpose.
[2019-12-25] MEDS ORDERED: ACETAMINOPHEN 500 MG TAB (TYLENOL) PO PRN (16:00)
[2019-12-25] MEDS ORDERED: CATHETER FLUSH 10 ML SYR IV PRN (16:00)
[2019-12-25] MEDS ORDERED: RT-ALBUTEROL HFA (PROAIR HFA) 8.5 GM IH PRN (16:15)
[2019-12-25] MEDS: RIVAROXABAN 15 MG TABLET (XARELTO) PO SCH (17:39)
[2019-12-25] MEDS: RT-ALBUTEROL HFA (PROAIR HFA) 8.5 GM IH SCH ×2 (18:29→22:07)
[2019-12-25] MEDS ORDERED: PHENobarbital 64.8 MG (1 GRAIN) TAb PO ONE (22:05)
[2019-12-25] MEDS: CATHETER FLUSH 10 ML SYR IV SCH (22:20)
[2019-12-25] MEDS: PHENYTOIN 100 MG (DILANTIN) CAP PO SCH ×2 (22:25→22:26)
[2019-12-25] MEDS: PHENobarbital 64.8 MG (1 GRAIN) TAb PO SCH (22:25)
[2019-12-26] MEDS ORDERED: PATIENT MAY USE OWN MED,SINGLE MED PO SCH ×2 (00:30→14:30)
[2019-12-26] MEDS: RT-ALBUTEROL HFA (PROAIR HFA) 8.5 GM IH SCH ×5 (02:22→17:23)
[2019-12-26] MEDS ORDERED: BENZ100C18 PO (03:03)
[2019-12-26] MEDS ORDERED: DIPH25CA79 PO (03:06)
[2019-12-26] MEDS ORDERED: CLOT15CR6 TP (03:09)
[2019-12-26] MEDS ORDERED: CALC-65 PO (03:14)
[2019-12-26] MEDS ORDERED: PYRI100T10 PO (03:16)
[2019-12-26] MEDS ORDERED: CHOL200012 PO (03:25)
[2019-12-26 05:18] VITALS: BP 135/63
[2019-12-26] MEDS: CATHETER FLUSH 10 ML SYR IV SCH ×3 (05:23→20:19)
[2019-12-26 05:37] LABS: BASOPHILS % (AUTO) 1 % (0-10); EOSINOPHILS # (AUTO) 0.3 10^3/uL (0.0-0.3); EOSINOPHILS % (AUTO) 4 % (0-10); HEMATOCRIT 32 % (40-54); HEMOGLOBIN 10.4 G/DL (13.3-17.7); LYMPHOCYTES # (AUTO) 0.8 X 10^3 (1.0-4.0); LYMPHOCYTES % (AUTO) 12 % (12-44); MEAN CORPUSCULAR HEMOGLOBIN 32 PG (25-34); MEAN CORPUSCULAR HGB CONC 33 G/DL (32-36); MEAN CORPUSCULAR VOLUME 96 FL (80-99); MONOCYTES % (AUTO) 15 % (0-12); NEUTROPHILS # (AUTO) 4.4 X 10^3 (1.8-7.8); NEUTROPHILS % (AUTO) 69 % (42-75); PLATELET COUNT 168 10^3/uL (130-400); RED CELL DISTRIBUTION WIDTH 15.5 % (10.0-14.5); WHITE BLOOD COUNT 6.5 10^3/uL (4.3-11.0)
[2019-12-26] MEDS: RIVAROXABAN 15 MG TABLET (XARELTO) PO SCH (05:43)
[2019-12-26 05:50] LABS: ALBUMIN 3.1 GM/DL (3.2-4.5)
[2019-12-26 05:51] LABS: CHLORIDE 103 MMOL/L (98-107); SODIUM 139 MMOL/L (135-145)
[2019-12-26 05:52] LABS: CALCIUM 8.2 MG/DL (8.5-10.1)
[2019-12-26 05:53] LABS: GLUCOSE 73 MG/DL (70-105); TOTAL PROTEIN 6.9 GM/DL (6.4-8.2)
[2019-12-26 05:54] LABS: CARBON DIOXIDE 25 MMOL/L (21-32)
[2019-12-26 05:55] LABS: BILIRUBIN,TOTAL 0.3 MG/DL (0.1-1.0)
[2019-12-26 05:56] LABS: ALKALINE PHOSPHATASE 89 U/L (40-136)
[2019-12-26 05:57] LABS: CREATININE SERUM 0.84 MG/DL (0.60-1.30); GFR ESTIMATED > 60
[2019-12-26 05:58] LABS: BUN/CREATININE RATIO 25
[2019-12-26 05:59] LABS: ALANINE AMINOTRANSFERASE 29 U/L (0-55)
[2019-12-26 08:00] VITALS: BP 142/64
[2019-12-26] MEDS ORDERED: PHENYTOIN 100 MG (DILANTIN) CAP PO SCH (09:00)
[2019-12-26] MEDS: PHENYTOIN 100 MG (DILANTIN) CAP PO SCH ×2 (09:22→17:26)
[2019-12-26 11:46] VITALS: BP 133/62
--- NOTE | 2019-12-26 11:50 | History & Physical-Hospitalist ---
History of Present Illness HPI/Chief Complaint patient is a 79-year-old male with past medical history of coronary artery disease status post CABG, heart failure, chronic restrictive failure, who presented to the emergency department due to shortness of breath and hypoxia. He is well-known to me from recent prolonged admission in October. He discharged to the [facility] for skilled therapy and was they are until December 16. Per his on December 17 he developed fevers up to 102. She thought this was due to him being dehydrated so tried to get him extraoral fluids. This did not improve. He continued to run fevers. Yesterday he became very dyspneic and oxygen saturations were in the 70s. He was brought to the emergency room for evaluation due to this. In the ER he was found to have a right upper lobe pneumonia and his d-dimer was elevated. COVID testing was done. He was sent for CTA which revealed multiple bilateral pulmonary emboli. He was admitted and is doing much better this morning. He has previously required oxygen but had titrated off of it prior to discharge from the [facility]. He has no complaints at this time. Source: patient Date Seen 12/26/19 Time Seen by a Provider: 11:45 Attending Physician Tommie Bansal MD PCP Brendon Trejo MD Referring Physician Date of Admission Dec 25, 2019 at 14:45 Home Medications & Allergies Home Medications Reviewed patient Home Medication Reconciliation performed by pharmacy medication reconciliations materials technician and/or nursing. Patients Allergies have been reviewed. Allergies Allergies Coded Allergies amiodarone (Verified Allergy, Severe, 03/13/19) lorazepam (Verified Allergy, Unknown, 03/13/19) scopolamine (Verified Allergy, Unknown, 03/13/19) Past Nqxtqjz-Cjptom-Npewpg Hx Past Med/Social Hx: Reviewed Nursing Past Med/Soc Hx Patient Social History Marrital Status: Employed/Student: retired Alcohol Use: Denies Use Recreational Drug Use: No Smoking Status: Former Smoker Former Smoker, Quit: Jan 31, 1990 Type Used: Cigarettes 2nd Hand Smoke Exposure: No Recent Foreign Travel: No Contact w/other who traveled: No Recent Hopitalizations: Yes Recent Infectious Disease Expo: No Immunizations Up To Date Tetanus Booster (TDap): Less than 5yrs Pediatric: Yes Date of Pneumonia Vaccine: January 20, 2015 Date of Influenza Vaccine: May 10, 2019 Seasonal Allergies Seasonal Allergies: Yes Past Medical History Surgeries: Cardiac, CABG, Coronary Stent, Defibrillator, Eye Surgery, Pacemaker Respiratory: Chronic Bronchitis, COPD, Emphysema, Pneumonia Currently Using CPAP: No Currently Using BIPAP: No Cardiac: Cardiomyopathy, Coronary Artery Disease, High Cholesterol, Hypertension, Peripheral Vascular Neurological: Neuropathy, Seizure Disorder, Stroke Reproductive: No Sexually Transmitted Disease: No Genitourinary: Bladder Infection, Renal Failure Gastrointestinal: Abdominal Hernia Musculoskeletal: Degenerate Disk Disease, Arthritis, Chronic Back Pain, Fractures Endocrine: Hypothyroidsim HEENT: Cataract Hearing Impairment: Hard of Hearing Cancer: Skin Did You Recieve Any Treatments: Yes What Type of Treatment Did You: Surgical Intervention Psychosocial: Depression History of Blood Disorders: No Adverse Reaction to Blood Yanes: No Family History Reviewed Nursing Family Hx Arthritis 19 MOTHER, Cardiovascular disease G8 BROTHER, G8 BROTHER, , Age:67 G8 BROTHER G8 SISTER Cataracts G8 BROTHER, , Age:67 G8 BROTHER Completed stroke 19 MOTHER, Deafness or hearing loss G8 BROTHER G8 BROTHER Diabetes mellitus G8 SISTER Headache disorder 19 FATHER, 19 MOTHER, G8 BROTHER, G8 BROTHER, , Age:67 G8 BROTHER G8 BROTHER G8 SISTER Hypercholesterolemia G8 BROTHER, , Age:67 G8 BROTHER G8 BROTHER G8 SISTER Hypertension 19 MOTHER, G8 BROTHER G8 SISTER Myocardial infarction G8 BROTHER, , Age:67 G8 BROTHER G8 SISTER Respiratory disorder G8 BROTHER, Thyroid disease G8 SISTER No Family History of: AIDS Abdominal aortic aneurysm Rawlins's disease Alcoholism Alzheimer's disease Aphasia Asthma Cancer of mouth Colon cancer Congenital disease Congenital heart disease Cystic fibrosis Dementia Drug abuse Dysphasia Fibrocystic disease of breast Gastroenteritis Glaucoma Infertility Kidney disease Neoplasm Not obtainable due to adoption Osteoporosis Parkinson's disease Prostate cancer Psychosocial problem Seizure disorder Severe allergy Tuberculosis Visual disorder No Pertinent Family Hx PSH: -HERNIA REPAIR 1977 -3 VESSEL CABG 1990--DR. WESTON -BRAIN BIOPSY ON RIGHT 1990 -DEFIBRILLATOR/PACEMAKER 1997, WITH REPLACEMENTS--LAST REPLACEMENT 05/10/15 -ORAL SURGERY 1998 -LEFT EYE SURGERY TO REMOVE PTERYGIUM 1999 -RIGHT EYE SURGERY TO REMOVE PTERYGIUM 2012 -CARDIAC CATHS--2 STENTS 2009 -BRONCHOSCOPY -COLONOSCOPY -SKIN CANCER REMOVED - ADDITIONAL PMH: -MULTIPLE ADMITS FOR COPD AND PNEUMONIA, WITH RESPIRATORY FAILURE AND HAS BEEN INTUBATED IN 2013-HAD PNEUMONIA, INFLUENZA B AND CHF, THEN MOST RECENTLY ADMITTED 11/02/19-11/15 WITH PNEUMONIA/RESPIRATORY FAILURE AND INFLUENZA B AND CHG-NO INTUBATION. Review of Systems Constitutional: fever, malaise EENTM: no symptoms reported Respiratory: dyspnea on exertion; No hemoptysis; short of breath Cardiovascular: No chest pain, No edema; Hx of Intervention Gastrointestinal: No abdominal pain, No nausea, No vomiting Genitourinary: no symptoms reported Musculoskeletal: see HPI Skin: no symptoms reported Psychiatric/Neurological: No Symptoms Reported Physical Exam Physical Exam Vital Signs Vital Signs - First Documented 12/25/19 12:16 Temp 37.0 Pulse 81 Resp 18 B/P (MAP) 145/75 (98) Pulse Ox 83 O2 Delivery Room Air O2 Flow Rate 3.00 Capillary Refill : Less Than 3 SecondsLess Than 3 Seconds Height, Weight, BMI Height: 6'0" Weight: 187lbs. 0.0oz. 84.571115wd; 25.41 BMI Method:Stated General Appearance: No Apparent Distress, Chronically ill HEENT: PERRL/EOMI, Moist Mucous Membranes; No Scleral Icterus (L), No Scleral Icterus (R) Neck: Normal Inspection, Supple Respiratory: Lungs Clear, No Accessory Muscle Use, Other (on 3lpm NC) Cardiovascular: Regular Rate, Rhythm, No Murmur Gastrointestinal: Normal Bowel Sounds, Non Tender, Soft Extremity: Normal Capillary Refill, No Calf Tenderness, No Pedal Edema Neurologic/Psychiatric: Alert, Oriented x3, Normal Mood/Affect Skin: Normal Color, Ecchymosis Results Results/Procedures Labs Laboratory Tests 12/25/19 12:30 12/26/19 05:28 Patient resulted labs reviewed. Imaging: Reviewed Imaging Report Imaging Date of Exam:12/25/19 CHEST 1 VIEW, AP/PA ONLY INDICATION: Shortness of breath. Time of exam 12:45 PM Correlation is made with prior chest from 11/12/2019. Changes of median sternotomy and CABG are noted. Heart size stable. Cardiac defibrillator remains in place. There is some questionable minimal infiltrate in the right upper lobe. Otherwise lungs are clear. No effusion is seen. There is no pneumothorax. IMPRESSION: Questionable minimal right upper lobe infiltrate. The study is otherwise unremarkable. Date of Exam:12/25/19 CT ANGIO CHEST W PROCEDURE: CT angiography of the chest with contrast. TECHNIQUE: Multiple contiguous axial images were obtained through the chest after uneventful bolus administration of intravenous contrast. 3D reconstructed CTA MIP acquisitions were also performed. Auto Exposure Controls were utilized during the CT exam to meet ALARA standards for radiation dose reduction. INDICATION: Respiratory issues. COMPARISON: Comparison is made with prior CT angiogram chest study from 11/02/2019. FINDINGS: Evaluation of the pulmonary arterial system does demonstrate several filling defects within segmental and subsegmental pulmonary arteries involving bilateral upper and bilateral lower lobes. No central pulmonary emboli are identified. No saddle embolus is identified. The thoracic aorta appears to be normal caliber. No dissection is seen. There is no pericardial or pleural fluid identified. Cardiac pacemaker is in place. Parenchymal evaluation again demonstrates centrilobular emphysematous changes in both lungs. No parenchymal infiltrate is seen. Upper abdomen again demonstrates low-density lesions involving bilateral kidneys suggestive of cysts. IMPRESSION: 1. Findings consistent with bilateral pulmonary emboli. 2. Bilateral renal cysts. Assessment/Plan Admission Diagnosis Acute Hypoxic Respiratory Failure Admission Status: Inpatient Order (span 2 midnights) Reason for Inpatient Admission: needs oxygen titration, blood thinners, will take more than two midnights to stabilize for DC Assessment and Plan Acute Hypoxic Respiratory Failure Bilateral Pulmonary Emboli RUL PNA- not sepsis COPD Was on Xarelto but will switch to Lovenox bridge to warfarin due to Dilantin after discussion with pharmacy Clinically improving Titrate oxygen to keep >90 COVID19 negative- take out of precautions I updated his today Continue home inhalers MAT protocol s/p Solumedrol in the ER- will hold further steroids as no evidence of acute exacerbation CAD s/p CABG CHF- compensated HTN HLD Continue home meds No evidence of failure Seizure Disorder Continue home meds Patient brought in as he has to take name brand Dilantin Hypothyroidism Continue home meds Diagnosis/Problems Diagnosis/Problems (1) Acute on chronic respiratory failure Status: Acute (2) Seizure disorder Status: Acute (3) CHF (congestive heart failure) (4) COPD (chronic obstructive pulmonary disease) Status: Acute (5) Bilateral pulmonary embolism Status: Acute (6) Debility Status: Acute (7) Presence of combination internal cardiac defibrillator (ICD) and pacemaker Status: Acute Clinical Quality Measures DVT/VTE Risk/Contraindication: Risk Factor Score Per Nursin RFS Level Per Nursing on Admit: 4+=Very High TOMIME BANSAL MD Dec 26, 2019 11:50
[2019-12-26] MEDS ORDERED: NON-FORMULARY MEDICATION 1 EA EA (Diphenhydramine HCl (Benadryl) 25 MG) PO PRN (12:00)
[2019-12-26] MEDS ORDERED: BETAMETHASONE/CLOTRIM CREAM (LOTRISONE) 45 GM TP PRN (12:00)
[2019-12-26] MEDS ORDERED: guaiFENesin (MUCINEX) 600 MG TAB PO PRN (12:00)
[2019-12-26] MEDS ORDERED: BENZONATATE 100 MG (TESSALON) CAPSULE PO PRN (12:00)
[2019-12-26] MEDS ORDERED: diphenhydrAMINE 25 MG TAB (BENADRYL) PO PRN (12:30)
[2019-12-26] MEDS: FUROSEMIDE 40 MG (LASIX) TAB PO SCH (13:27)
[2019-12-26] MEDS: DIGOXIN 0.25 MG (LANOXIN) TAB PO SCH (13:27)
[2019-12-26] MEDS: lisINopril 5 MG (PRINIVIL) TABLET PO SCH (13:27)
[2019-12-26] MEDS: meTOproloL SUCCINATE 50 MG (TOPROL XL) TAB PO SCH (13:27)
[2019-12-26] MEDS: ENOXAPARIN 100 MG/1 ML (LOVENOX) SYR SC SCH ×2 (13:28→23:44)
[2019-12-26 16:02] VITALS: BP 119/77
[2019-12-26] MEDS: warFARin 5 MG (COUMADIN) TAB PO SCH (17:23)
[2019-12-26] MEDS: ADVAIR HFA 115/21 MCG INHALER 8 GM IH SCH (18:21)
[2019-12-26 20:11] VITALS: BP 115/49
[2019-12-26] MEDS: MONTELUKAST 10 MG (SINGULAIR) TAB PO SCH (20:16)
[2019-12-26] MEDS: PHENobarbital 64.8 MG (1 GRAIN) TAb PO SCH (20:16)
[2019-12-26] MEDS: SIMvastatin 10 MG (ZOCOR) TAB PO SCH (20:16)
[2019-12-26] MEDS: polyethylene glycoL POWDER 17 GM (MIRALAX) PACK PO SCH (20:16)
[2019-12-26] MEDS: CLOBETASOL 0.05% CREAM TP SCH (20:17)
--- NOTE | 2019-12-26 20:30 | NUR ---
New order rec from Dr. Bansal to discontinue Latanaprost eye drops (upon request of pt and ).
[2019-12-26] MEDS ORDERED: NON-FORMULARY MEDICATION 1 EA EA (Bimatoprost (Lumigan) 1 DROP) OD SCH (21:00)
[2019-12-26] MEDS ORDERED: NON-FORMULARY MEDICATION 1 EA EA (Budesonide/Formoterol Fumarate (Symbicort 160-4.5 Mcg In IH SCH (21:00)
[2019-12-26] MEDS ORDERED: LATANOPROST 0.005% (XALATAN) OPHTH SOLN 2.5 ML OD SCH (21:00)
[2019-12-26] MEDS ORDERED: NON-FORMULARY MEDICATION 1 EA EA (Clobetasol Propionate 1 APPLIC) TOP SCH (21:00)
[2019-12-27 00:09] VITALS: BP 131/61
[2019-12-27] MEDS: RT-ALBUTEROL HFA (PROAIR HFA) 8.5 GM IH SCH ×7 (02:26→21:24)
[2019-12-27 04:00] VITALS: BP 130/60
[2019-12-27 06:30] LABS: HEMOGLOBIN 10.5 G/DL (13.3-17.7); MEAN PLATELET VOLUME 10.2 FL (7.4-10.4); RED CELL DISTRIBUTION WIDTH 15.7 % (10.0-14.5); WHITE BLOOD COUNT 5.7 10^3/uL (4.3-11.0)
[2019-12-27] MEDS: CATHETER FLUSH 10 ML SYR IV SCH ×3 (06:35→20:56)
[2019-12-27] MEDS: LEVOTHYROXINE 75 MCG (LEVOTHROID) TABLET PO SCH (06:35)
[2019-12-27 06:46] LABS: INR 1.2 (0.8-1.4); PROTHROMBIN TIME PATIENT 15.6 SEC (12.2-14.7)
[2019-12-27 06:54] LABS: BUN/CREATININE RATIO 27; CALCIUM 8.3 MG/DL (8.5-10.1); CARBON DIOXIDE 26 MMOL/L (21-32); CHLORIDE 103 MMOL/L (98-107); CREATININE SERUM 0.84 MG/DL (0.60-1.30); GFR ESTIMATED > 60; GLUCOSE 100 MG/DL (70-105); POTASSIUM 4.4 MMOL/L (3.6-5.0); SODIUM 138 MMOL/L (135-145)
[2019-12-27] MEDS: ADVAIR HFA 115/21 MCG INHALER 8 GM IH SCH ×2 (07:01→17:48)
[2019-12-27 08:00] VITALS: BP 139/63
[2019-12-27] MEDS: ASPIRIN E.C. 81 MG (ECOTRIN) TAB PO SCH (09:21)
[2019-12-27] MEDS: DIGOXIN 0.25 MG (LANOXIN) TAB PO SCH (09:21)
[2019-12-27] MEDS: meTOproloL SUCCINATE 50 MG (TOPROL XL) TAB PO SCH (09:21)
[2019-12-27] MEDS: FUROSEMIDE 40 MG (LASIX) TAB PO SCH (09:21)
[2019-12-27] MEDS: lisINopril 5 MG (PRINIVIL) TABLET PO SCH (09:21)
[2019-12-27] MEDS: PHENYTOIN 100 MG (DILANTIN) CAP PO SCH ×2 (09:22→18:22)
[2019-12-27] MEDS: CLOBETASOL 0.05% CREAM TP SCH ×2 (09:23→20:56)
[2019-12-27] MEDS ORDERED: PATIENT MAY USE OWN MED,SINGLE MED PO SCH (11:00)
[2019-12-27 12:00] VITALS: BP 129/60
--- NOTE | 2019-12-27 12:21 | Progress Note - Hospitalist ---
Subjective HPI/CC On Admission Date Seen by Provider: Dec 27, 2019 Time Seen by Provider: 12:18 patient is a 79-year-old male with past medical history of coronary artery disease status post CABG, heart failure, chronic restrictive failure, who presented to the emergency department due to shortness of breath and hypoxia. He is well-known to me from recent prolonged admission in October. He discharged to the [facility] for skilled therapy and was they are until December 16. Per his on December 17 he developed fevers up to 102. She thought this was due to him being dehydrated so tried to get him extraoral fluids. This did not improve. He continued to run fevers. Yesterday he became very dyspneic and oxy gen saturations were in the 70s. He was brought to the emergency room for evaluation due to this. In the ER he was found to have a right upper lobe pneumonia and his d-dimer was elevated. COVID testing was done. He was sent for CTA which revealed multiple bilateral pulmonary emboli. He was admitted and is doing much better this morning. He has previously required oxygen but had titrated off of it prior to discharge from the [facility]. He has no complaints at this time. Subjective/Events-last exam Pt reports doing well. Currently off oxygen. No complaints. Focused Exam Lactate Level 12/25/19 12:30: Lactic Acid Level 0.68 Objective Exam Vital Signs Vital Signs Date Time Temp Pulse Resp B/P (MAP) Pulse Ox O2 Delivery O2 Flow Rate FiO2 12/27/19 12:00 37.2 65 18 129/60 (83) 92 Room Air 12/27/19 11:13 3.00 92 Capillary Refill : Less Than 3 SecondsLess Than 3 Seconds General Appearance: No Apparent Distress, Chronically ill Respiratory: Lungs Clear, No Accessory Muscle Use, No Respiratory Distress Cardiovascular: Regular Rate, Rhythm, No Murmur Gastrointestinal: Normal Bowel Sounds, Non Tender, Soft Neurologic/Psychiatric: Alert, Oriented x3 Results/Procedures Lab Laboratory Tests 12/27/19 06:12 Patient resulted labs reviewed. Imaging: Reviewed Imaging Report Assessment/Plan Assessment and Plan Assess & Plan/Chief Complaint Acute Hypoxic Respiratory Failure Bilateral Pulmonary Emboli RUL PNA- not sepsis COPD Continue Warfarin and bridge with Lovenox Continue antibiotics Clinically improving Titrate oxygen to keep >90 COVID19 negative Continue home inhalers MAT protocol CAD s/p CABG CHF- compensated HTN HLD Continue home meds No evidence of failure Seizure Disorder Continue home meds Patient brought in as he has to take name brand Dilantin Hypothyroidism Continue home meds UTI Enterococcus in urine, Ampicillin ordered Diagnosis/Problems Diagnosis/Problems (1) Acute on chronic respiratory failure Status: Acute (2) Seizure disorder Status: Acute (3) CHF (congestive heart failure) (4) COPD (chronic obstructive pulmonary disease) Status: Acute (5) Bilateral pulmonary embolism Status: Acute (6) Debility Status: Acute (7) Presence of combination internal cardiac defibrillator (ICD) and pacemaker Status: Acute Clinical Quality Measures DVT/VTE Risk/Contraindication: Risk Factor Score Per Nursin RFS Level Per Nursing on Admit: 4+=Very High TOMMIE GRAJEDA MD Dec 27, 2019 12:21
[2019-12-27] MEDS: AMPICILLIN FOR IV USE 2,000 MG in WATER (STERILE) FOR INJECTION 14.8 ML IV SCH ×2 (13:38→18:24)
[2019-12-27] MEDS: ENOXAPARIN 100 MG/1 ML (LOVENOX) SYR SC SCH (13:39)
[2019-12-27 16:41] VITALS: BP 137/62
[2019-12-27] MEDS: warFARin 5 MG (COUMADIN) TAB PO SCH (18:22)
[2019-12-27 20:48] VITALS: BP 133/60
[2019-12-27] MEDS: PHENobarbital 64.8 MG (1 GRAIN) TAb PO SCH (20:55)
[2019-12-27] MEDS: CHLORHEXIDINE 0.12% SOLN 15 ML (PERIDEX) UDC PO SCH (20:55)
[2019-12-27] MEDS: polyethylene glycoL POWDER 17 GM (MIRALAX) PACK PO SCH (20:55)
[2019-12-27] MEDS: SIMvastatin 10 MG (ZOCOR) TAB PO SCH (20:55)
[2019-12-27] MEDS: MONTELUKAST 10 MG (SINGULAIR) TAB PO SCH (20:55)
[2019-12-28] VITALS (7 sets, daily range): BP systolic 132–144; BP diastolic 55–79
[2019-12-28] MEDS: ENOXAPARIN 100 MG/1 ML (LOVENOX) SYR SC SCH ×3 (00:08→23:52)
[2019-12-28] MEDS: AMPICILLIN FOR IV USE 2,000 MG in WATER (STERILE) FOR INJECTION 14.8 ML IV SCH ×3 (00:09→13:07)
[2019-12-28] MEDS: RT-ALBUTEROL HFA (PROAIR HFA) 8.5 GM IH SCH ×6 (02:02→21:14)
[2019-12-28] MEDS: LEVOTHYROXINE 75 MCG (LEVOTHROID) TABLET PO SCH (06:25)
[2019-12-28] MEDS: CATHETER FLUSH 10 ML SYR IV SCH ×3 (06:25→21:35)
[2019-12-28 06:40] LABS: HEMOGLOBIN 10.4 G/DL (13.3-17.7); MEAN PLATELET VOLUME 10.4 FL (7.4-10.4); RED CELL DISTRIBUTION WIDTH 15.4 % (10.0-14.5); WHITE BLOOD COUNT 5.6 10^3/uL (4.3-11.0)
[2019-12-28 06:47] LABS: CHLORIDE 104 MMOL/L (98-107); POTASSIUM 4.5 MMOL/L (3.6-5.0); SODIUM 139 MMOL/L (135-145)
[2019-12-28 06:48] LABS: CALCIUM 8.4 MG/DL (8.5-10.1); GLUCOSE 92 MG/DL (70-105); INR 1.2 (0.8-1.4); PROTHROMBIN TIME PATIENT 15.5 SEC (12.2-14.7)
[2019-12-28 06:50] LABS: CARBON DIOXIDE 25 MMOL/L (21-32)
[2019-12-28 06:52] LABS: CREATININE SERUM 0.82 MG/DL (0.60-1.30); GFR ESTIMATED > 60
[2019-12-28 06:53] LABS: BUN/CREATININE RATIO 21
[2019-12-28] MEDS: ADVAIR HFA 115/21 MCG INHALER 8 GM IH SCH ×2 (07:03→18:32)
[2019-12-28] MEDS: CHLORHEXIDINE 0.12% SOLN 15 ML (PERIDEX) UDC PO SCH ×2 (07:32→21:50)
[2019-12-28] MEDS: FUROSEMIDE 40 MG (LASIX) TAB PO SCH (09:15)
[2019-12-28] MEDS: ASPIRIN E.C. 81 MG (ECOTRIN) TAB PO SCH (09:15)
[2019-12-28] MEDS: DIGOXIN 0.25 MG (LANOXIN) TAB PO SCH (09:15)
[2019-12-28] MEDS: PHENYTOIN 100 MG (DILANTIN) CAP PO SCH ×2 (09:15→17:36)
[2019-12-28] MEDS: meTOproloL SUCCINATE 50 MG (TOPROL XL) TAB PO SCH (09:15)
[2019-12-28] MEDS: CLOBETASOL 0.05% CREAM TP SCH ×2 (09:15→21:34)
[2019-12-28] MEDS: lisINopril 5 MG (PRINIVIL) TABLET PO SCH (09:15)
--- NOTE | 2019-12-28 10:01 | Physical Therapy Evaluation ---
PT Evaluation-General Medical Diagnosis Admission Date Dec 25, 2019 at 14:45 Medical Diagnosis: respiratory failure/pneumonia/bilateral PE Onset Date: Dec 25, 2019 Therapy Diagnosis Therapy Diagnosis: generalized weakness/debility Height/Weight Height (Feet): 6 Height (Inches): 0 Weight (Pounds): 187 Weight (Ounces): 0.0 Precautions Precautions/Isolations: Fall Prevention, Standard Precautions Weight Bear Status Right Lower Extremity: Right Weight Bearing/Tolerated Left Lower Extremity: Left Weight Bearing/Tolerated Referral Physician: Nimisha Reason for Referral: Evaluation/Treatment Medical History Pertinent Medical History: CABG, CAD, COPD, CVA, Heart Failure, HTN, PVD, Renal Insufficiency Additional Medical History recent rehab stay with dismissal to half-way facility Current History home 8 days from [place] with progressive weakness, fever and SOA Reviewed History: Yes Social History Home: Single Level (home 8 days from [place]) Current Living Status: Spouse Prior Prior Level of Function SCALE: Activities may be completed with or without assistive devices. 7-Wqopnjdnir-ihgxjaa completes the activity by him/herself with no assistance from a helper. 5-Set-up or Clean-up Assistance-helper sets up or cleans up; patient completes activity. [place] assists only prior to or following the activity. 4-Supervision or Touching Assistance-helper provides verbal cues and/or touching/steadying and/or contact guard assistance as patient completes activity. Assistance may be provided throughout the activity or intermittently. 3-Partial/Moderate Assistance-helper does LESS THAN HALF the effort. [place] lifts, holds or supports trunk or limbs, but provides less than half the effort. 2-Substantial/Maximal Assistance-helper does MORE THAN HALF the effort. [place] lifts or holds trunk or limbs and provides more than half the effort. 9-Ksnneihdn-nnaymb does ALL the effort. Patient does none of the effort to complete the activity. Or, the assistance of 2 or more helpers is required for the patient to complete the activity. If activity was not attempted, code reason: 7-Patient Refused. 9-Not Applicable-not attempted and the patient did not perform the activity before the current illness, exacerbation or injury. 10-Not Attempted due to Environmental Limitations-(lack of equipment, weather restraints, etc.). 88-Not Attempted due to Medical Conditions or Safety Concerns. Bed Mobility: 4 Transfers (B,C,W/C): 4 Gait: 3 Indoor Mobility (Ambulation): Needed Some Help Stairs: Not Applicalbe Prior Devices Use: Walker PT Evaluation-Current Subjective Patient agrees to PT. Pain Numeric Pain Scale: 0-No Pain Location: No Pain Reported Objective Patient Orientation: Person, Time, Situation Attachments: Oxygen ROM/Strength ROM Lower Extremities bilateral LE WFL Strength Lower Extremities 3/5 grossly right LE/3-/5 left LE due to old CVA Integumentary/Posture Integumentary refer to nursing notes Bowel Incontinence: Yes Bladder Incontinence: Yes Posture trunk flexed posture in stand Neuromuscular (Tone, Coordination, Reflexes) severely diminished coordination Sensory Vision: Wears Glasses Hearing: Impaired Sensation Right Lower Extremit: Impaired Sensation Left Lower Extremity: Impaired Transfers Roll Left to Right (QC): 2 Lying to Sitting/Side of Bed(Q: 2 Sit to Stand (QC): 2 Chair/Xne-av-Repqc Xfer(QC): 2 patient severely retropulsive in sit and unable to maintain EOB without assistance. Patient requires assist of 2 with sit to stand and SPT bed to recliner. Gait Does the Patient Walk?: No and Walking Goal IS indicated Mode of Locomotion: Both Anticipated Mode of Locomotion: Both Comments/Gait Description Unable to safely ambulate due to weakness and debility Balance Sitting Static: Poor Sitting Dynamic: Poor Standing Static: Poor Standing Dynamic: Poor Assessment/Needs 79 y.o. male, will benefit from skilled PT to address functional strength and mobility to improve current LOF. From a PT standpoint, patient will require extended care to attain functional strength and mobility due to fail in home environment. Rehab Potential: Guarded PT Coal Hauler Goals Coal Hauler Goals PT Group Home Goals Time Frame: January 09, 2020 Roll Left & Right (QC): 4 Sit to Lying (QC): 4 Lying-Sitting on Side/Bed(QC): 4 Sit to Stand (QC): 4 Chair/Llk-xa-Wfoon Xfer(QC): 4 Toilet Transfer (QC): 4 Does the Patient Walk: No and Walking Goal IS indicated Walk 10 feet (QC): 3 Walk 50ft with 2 Turns (QC): 3 Walk 150 ft (QC): 3 PT Plan Problem List Problem List: Activity Tolerance, Functional Strength, Safety, Balance, Gait, Transfer, Bed Mobility Treatment/Plan Treatment Plan: Continue Plan of Care Treatment Plan: Bed Mobility, Education, Functional Activity Drew, Functional Strength, Gait, Safety, Therapeutic Exercise, Transfers Treatment Duration: January 09, 2020 Frequency: 6 times per week Estimated Hrs Per Day: .5 hour per day Discharge Recommendations Therapy Discharge Recommendati: Other, See Comments (half-way) Time/GCodes Time In: 815 Time Out: 840 Total Billed Treatment Time: 25 Total Billed Treatment 1 visit EVMod 25 min VITOR MADRIGAL PT Dec 28, 2019 10:01
--- NOTE | 2019-12-28 10:26 | Occupational Therapy Eval ---
OT Evaluation-General/PLF Medical Diagnosis Admission Date Dec 25, 2019 at 14:45 Medical Diagnosis: respiratory failure/pneumonia/bilateral PE Onset Date: Dec 25, 2019 Therapy Diagnosis Therapy Diagnosis: Weakness, Decreased ADL skills Height/Weight Height (Feet): 6 Height (Inches): 0 Weight (Pounds): 187 Weight (Ounces): 0.0 Precautions Precautions/Isolations: Fall Prevention, Standard Precautions Safety Interventions: Bed Exit Alarm, Reorient-PRN Weight Bear Status Weight Bearing Restriction: Weight Bearing/Tolerated Referral Physician: Nimisha Referral Reason: Activity Tolerance, Self Care, Evaluation/Treatment, Strengthening/ROM Medical History Pertinent Medical History: CABG, CAD, COPD, CVA, Heart Failure, HTN, PVD, Renal Insufficiency Current History Pt. was in NH for approximately one month. Went home for 8 days and returned to hospital with SOA. Found to have bilateral pulmonary emboli. Reviewed History: Yes Social History Home: Single Level (home 8 days from [place]) Current Living Status: Spouse Entry Into Home: Level Entry ADL-Prior Level of Function SCALE: Activities may be completed with or without assistive devices. 9-Chnhynlysr-ssygvit completes the activity by him/herself with no assistance from a helper. 5-Set-up or Clean-up Assistance-helper sets up or cleans up; patient completes activity. [place] assists only prior to or following the activity. 4-Supervision or Touching Assistance-helper provides verbal cues and/or touching/steadying and/or contact guard assistance as patient completes activity. Assistance may be provided throughout the activity or intermittently. 3-Partial/Moderate Assistance-helper does LESS THAN HALF the effort. [place] lifts, holds or supports trunk or limbs, but provides less than half the effort. 2-Substantial/Maximal Assistance-helper does MORE THAN HALF the effort. [place] lifts or holds trunk or limbs and provides more than half the effort. 1-Feyjudwxa-wkfily does ALL the effort. Patient does none of the effort to compl ete the activity. Or, the assistance of 2 or more helpers is required for the patient to complete the activity. If activity was not attempted, code reason: 7-Patient Refused. 9-Not Applicable-not attempted and the patient did not perform the activity before the current illness, exacerbation or injury. 10-Not Attempted due to Environmental Limitations-(lack of equipment, weather restraints, etc.). 88-Not Attempted due to Medical Conditions or Safety Concerns. ADL PLOF Comments Pt. states that he was bathing and dressing himself. However, due to recent need for NH and decline in functional status, pt. likely did require assistance for ADLs. Self Care: Needed Some Help Functional Cognition: Needed Some Help DME/Equipment Comments Walker OT Current Status Subjective No pain reported. Pt. requires cues to stay on task during treatment. Appearance Pt. alert during evaluation. Mental Status/Objective Patient Orientation: Unable to Assess Attachments: IV, Oxygen Current Glasses/Contacts: Yes Dentures/Partials: Yes Hand Dominance: Right Upper Extremity ROM Pt. has limited ROM in left shoulder due to old injury. Pt. is able to lift to approximately 80 degrees with compensation. Right UE- WFL Limited ROM in left hand/wrist. Upper Extremity Coordination Left- impaired Right- WFL ADL-Treatment Eating (QC): 4 (Per pt., he is able to eat with no difficulty. Pt. verbalizes that he has already ate breakfast.) Oral Hygiene (QC): 7 (Pt. declines brushing dentures, washing mouth. States that he uses mouthwash at night to cleanse dentures, and did so last night.) On/Off Footwear (QC): 3 (Mod assist. Pt. able to doff socks with effort seated in chair. Unable to bring feet back up and manipulate socks to don them.) Toileting Hygiene (QC): 1 Pt. transferred sit-stand with max x 2 from bed, to transfer to chair. Once in chair, pt. stood again with max x 2 so that OT could cleanse rear larissa area. Pt. wearing depend. Pt. washed face while up in chair, and practiced doffing/donning socks. Declines brushing dentures. Pt. requires cues to stay on task, as he will start to talk about something else and will stop what he is doing. OT explains goals with him. Pt. verbalizes understanding. All needs met up in chair. Education OT Patient Education: Correct positioning, Exercise program, Modified ADL techniques, Progress toward Goal/Update tx plan, Purpose of tx/functional activities, Reviewed precautions, Rehab process, Transfer techniques Teaching Recipient: Patient Teaching Methods: Demonstration, Discussion Response to Teaching: Verbalize Understanding, Return Demonstration OT Short Term Goals Short Term Goals Time Frame: January 04, 2020 Eatin Oral hygiene: 4 Toileting hygiene: 3 Upper body dressin Lower body dressin Putting on/taking off footwear: 3 OT Half-Way Goals Facility Manager Goals Time Frame: January 11, 2020 Eating (QC): 6 Oral Hygiene (QC): 4 Toileting Hygiene (QC): 4 Upper Body Dressing (QC): 4 Lower Body Dressing (QC): 4 On/Off Footwear (QC): 4 Additional Goals: 1-Demonstrate ADL Tasks, 2-Verbalize Understanding, 3-I mproveStrength/Drew 1=Demonstrate adherence to instructed precautions during ADL tasks. 2=Patient will verbalize/demonstrate understanding of assistive devices/modifications for ADL. 3=Patient will improve strength/tolerance for activity to enable patient to perform ADL's. OT Education/Plan Problem List/Assessment Assessment: Decreased Activ Tolerance, Decreased UE Strength, Dependent Transfers, Impaired Bed Mobility, Impaired Cognition, Impaired Coordination, Impaired Funct Balance, Impaired I ADL's, Impaired Self-Care Skills, Restricted Funct UE ROM Discharge Recommendations Plan/Recommendations: Continue POC Therapy Discharge Recommendati: 24 Hour Supervision Comment Discharge location and equipment to be determined. Treatment Plan/Plan of Care Treatment,Training & Education: Yes Patient would benefit from OT for education, treatment and training to promote independence in ADL's, mobility, safety and/or upper extremity function for ADL's. Plan of Care: ADL Retraining, Functional Mobility, UE Funct Exercise/Act Treatment Duration: January 11, 2020 Frequency: 5 times per week Estimated Hrs Per Day: .25 hour per day Agreement: Yes Rehab Potential: Guarded Time/GCodes Start Time: 08:40 Stop Time: 09:00 Total Time Billed (hr/min): 20 Billed Treatment Time 1, KEVIN OCHOA OT Dec 28, 2019 10:26
[2019-12-28 13:13] LABS: PARAINFLU 1 PCR Not Detected (Not Detected); PARAINFLU 2 PCR Not Detected (Not Detected)
--- NOTE | 2019-12-28 13:40 | NUR ---
Pastoral care visit.
--- NOTE | 2019-12-28 14:18 | NUR ---
"RD ASSESSMENT PMHx: CAD; COPD; emphysema; pneumonia; hypercholesterolemia; HTN; seizure disorder, stroke, hypothyroidism PT INTERACTION: Pt was awake and pleasant during nutrition assessment. Pt states current appetite is pretty good. Note avg PO intake 56% x2d, per chart review. Pt states following a regular diet at home and has no issues with chewing/swallowing food. Pt states no recent issues with nausea, vomiting, constipation, or diarrhea. Note last BM was 12/26, and pt currently on bowel regimen of Miralax qd, per chart review. Pt states no recent wt changes. Note recent 2# wt gain x1mon, per chart review. ABNORMAL NUTRITION-RELATED LAB VALUES LOW: Ca 8.4 HIGH: Est. kcal needs: 1969-9393 kcal | 25-30 kcal/kg Est. Pro needs: 68-86 g Pro | 0.8-1.0 g Pro/kg PES STATEMENT: Inadequate oral intake (NI-2.1) related to loss of appetite as evidenced by pt interview | avg PO intake 56% x2d INTERVENTION: Continue with current diet order of 2000 mg Na diet. Add Ensure Enlive (vary) to meals TID, for increased kcal intake. Provides 350 kcal and 13 g Pro per serving. Will continue to follow and reassess as pt needs, intake, and status change. MONITOR/EVALUATE: PO Intake; Plan of Care; Hydration Status; Weight Status; Lab Values Colin Ken, MS, RD, LD"
--- NOTE | 2019-12-28 16:14 | Progress Note - Hospitalist ---
Subjective HPI/CC On Admission Date Seen by Provider: Dec 28, 2019 Time Seen by Provider: 11:05 patient is a 79-year-old male with past medical history of coronary artery disease status post CABG, heart failure, chronic restrictive failure, who presented to the emergency department due to shortness of breath and hypoxia. He is well-known to me from recent prolonged admission in October. He discharged to the [facility] for skilled therapy and was they are until December 16. Per his on December 17 he developed fevers up to 102. She thought this was due to him being dehydrated so tried to get him extraoral fluids. This did not improve. He continued to run fevers. Yesterday he became very dyspneic and oxy gen saturations were in the 70s. He was brought to the emergency room for evaluation due to this. In the ER he was found to have a right upper lobe pneumonia and his d-dimer was elevated. COVID testing was done. He was sent for CTA which revealed multiple bilateral pulmonary emboli. He was admitted and is doing much better this morning. He has previously required oxygen but had titrated off of it prior to discharge from the longterm. He has no complaints at this time. Subjective/Events-last exam he denies any complaints or concerns at this time. He denies any fevers or chills. He denies any chest pain or shortness of breath. Objective Exam Vital Signs Vital Signs Date Time Temp Pulse Resp B/P (MAP) Pulse Ox O2 Delivery O2 Flow Rate FiO2 12/28/19 15:41 37.2 68 20 132/55 (80) 96 Nasal Cannula 2.00 12/28/19 12:15 2 Capillary Refill : Less Than 3 SecondsLess Than 3 Seconds General Appearance: No Apparent Distress, Chronically ill Neck: Normal Inspection, Supple Respiratory: Lungs Clear, Normal Breath Sounds, No Respiratory Distress Cardiovascular: Regular Rate, Rhythm, No Murmur Gastrointestinal: Normal Bowel Sounds, Non Tender, Soft Extremity: Normal Inspection, Non Tender, Pedal Edema Neurologic/Psychiatric: Alert, Oriented x3, No Motor/Sensory Deficits, Normal Mood/Affect Skin: Normal Color, Warm/Dry Results/Procedures Lab Laboratory Tests 12/28/19 06:00 Patient resulted labs reviewed. Imaging: Reviewed Imaging Report Assessment/Plan Assessment and Plan Assess & Plan/Chief Complaint Acute Hypoxic Respiratory Failure Bilateral Pulmonary Emboli RUL PNA- not sepsis COPD Continue Warfarin and bridge with Lovenox Continue antibiotics Titrate oxygen to keep >90 COVID19 negative Continue home inhalers MAT protocol CAD s/p CABG CHF- compensated HTN HLD Continue home meds No evidence of failure Seizure Disorder Continue home meds Patient brought in as he has to take name brand Dilantin Hypothyroidism Continue home meds UTI Transition to Augmentin for Enterococcus DVT Prophylaxis: already receiving therapeutic anticoagulation Diagnosis/Problems Diagnosis/Problems (1) Bilateral pulmonary embolism Status: Acute Clinical Quality Measures DVT/VTE Risk/Contraindication: Risk Factor Score Per Nursin RFS Level Per Nursing on Admit: 4+=Very High CALI BUCKLEY MD Dec 28, 2019 16:14
--- NOTE | 2019-12-28 16:41 | NUR ---
SPOKE WITH THE PTS SIXTO (SHE TAKES CARE OF HIS MED) AND WENT THRU THE EXT MED HISTORY TO COMPLETE THE MED REC PT WAS HERE IN NOVEMBER 2019 AND I WAS ABLE TO PULL UP THE MED LIST AND USED IT TO GO OVER THE MED WITH PTS . SHE SAID EVERYTHING HAD STAYED THE SAME EXCEPT BENADRYL, TESSLON AND MUCINEX WERE ADDED PRN AND HE IS NO LONGER USING EYE DROPS.
[2019-12-28] MEDS: warFARin 5 MG (COUMADIN) TAB PO SCH (17:35)
[2019-12-28] MEDS: AUGMENTIN 500 MG TAB (AMOXICILLIN/CLAVULANATE) PO SCH (17:35)
--- NOTE | 2019-12-28 17:52 | NUR ---
CM FINALIZED DISCHARGE PLANNING: Visited with the patient et his about discharging to [facility] skilled. Both are in agreement with this plan et a referral has been faxed to [facility] attn Hanh. Anticipate that he will be dismissed to [facility] tomorrow 12/29/19 skilled.
[2019-12-28] MEDS: MONTELUKAST 10 MG (SINGULAIR) TAB PO SCH (21:33)
[2019-12-28] MEDS: polyethylene glycoL POWDER 17 GM (MIRALAX) PACK PO SCH (21:33)
[2019-12-28] MEDS: SIMvastatin 10 MG (ZOCOR) TAB PO SCH (21:33)
[2019-12-28] MEDS: PHENobarbital 64.8 MG (1 GRAIN) TAb PO SCH (21:33)
[2019-12-29] VITALS: BP 137/63
[2019-12-29] MEDS: RT-ALBUTEROL HFA (PROAIR HFA) 8.5 GM IH SCH ×3 (01:39→11:20)
[2019-12-29 04:00] VITALS: BP 155/80
[2019-12-29 05:37] LABS: HEMOGLOBIN 10.8 G/DL (13.3-17.7); MEAN PLATELET VOLUME 10.2 FL (7.4-10.4); RED CELL DISTRIBUTION WIDTH 15.6 % (10.0-14.5); WHITE BLOOD COUNT 5.7 10^3/uL (4.3-11.0)
[2019-12-29 05:41] LABS: CHLORIDE 102 MMOL/L (98-107); POTASSIUM 4.3 MMOL/L (3.6-5.0); SODIUM 138 MMOL/L (135-145)
[2019-12-29 05:42] LABS: CALCIUM 8.6 MG/DL (8.5-10.1); GLUCOSE 97 MG/DL (70-105)
[2019-12-29 05:44] LABS: CARBON DIOXIDE 26 MMOL/L (21-32)
[2019-12-29 05:46] LABS: CREATININE SERUM 0.82 MG/DL (0.60-1.30); GFR ESTIMATED > 60
[2019-12-29 05:47] LABS: BUN/CREATININE RATIO 27
[2019-12-29] MEDS: ADVAIR HFA 115/21 MCG INHALER 8 GM IH SCH (06:34)
[2019-12-29] MEDS: AUGMENTIN 500 MG TAB (AMOXICILLIN/CLAVULANATE) PO SCH (06:51)
[2019-12-29] MEDS: LEVOTHYROXINE 75 MCG (LEVOTHROID) TABLET PO SCH (06:51)
[2019-12-29] MEDS: CATHETER FLUSH 10 ML SYR IV SCH (06:51)
[2019-12-29 07:35] LABS: INR 1.3 (0.8-1.4); PROTHROMBIN TIME PATIENT 16.7 SEC (12.2-14.7)
[2019-12-29] MEDS: CHLORHEXIDINE 0.12% SOLN 15 ML (PERIDEX) UDC PO SCH (08:01)
[2019-12-29 08:07] VITALS: BP 135/60
[2019-12-29] MEDS: DIGOXIN 0.25 MG (LANOXIN) TAB PO SCH (08:19)
[2019-12-29] MEDS: ASPIRIN E.C. 81 MG (ECOTRIN) TAB PO SCH (08:19)
[2019-12-29] MEDS: FUROSEMIDE 40 MG (LASIX) TAB PO SCH (08:19)
[2019-12-29] MEDS: meTOproloL SUCCINATE 50 MG (TOPROL XL) TAB PO SCH (08:19)
[2019-12-29] MEDS: lisINopril 5 MG (PRINIVIL) TABLET PO SCH (08:19)
[2019-12-29] MEDS: PHENYTOIN 100 MG (DILANTIN) CAP PO SCH (08:21)
[2019-12-29] MEDS: CLOBETASOL 0.05% CREAM TP SCH (08:23)
--- NOTE | 2019-12-29 09:15 | Occ Therapy Progress Note ---
Therapy Progress Note Pt. in bed eating breakfast. OT talked with pt. about any difficulty with feeding self. Pt. verbalizes that he does not have difficulty. OT attempted to give pt. hand sponge for strengthening, but pt. states, "I have like 5 of these at home." Pt. verbalizes that he is going to [facility] today. OT will come back and work with pt. later this a.m., after he finishes breakfast. All needs met. 1, visit [id number] KEVIN GREEN OT Dec 29, 2019 09:15
[2019-12-29] MEDS: ENOXAPARIN 100 MG/1 ML (LOVENOX) SYR SC SCH (11:21)
--- NOTE | 2019-12-29 11:25 | Physical Therapy Daily Note ---
PT Daily Note-Current Subjective The patient states that he is feeling better but that he is still having difficulty standing because of knee pain. Pain Numeric Pain Scale: 5-Moderate Pain Location: Right Location Body Site: Knee Transfers SCALE: Activities may be completed with or without assistive devices. 1-Fbtapmvjeu-iovkuxr completes the activity by him/herself with no assistance from a helper. 5-Set-up or Clean-up Assistance-helper sets up or cleans up; patient completes activity. [place] assists only prior to or following the activity. 4-Supervision or Touching Assistance-helper provides verbal cues and/or touching/steadying and/or contact guard assistance as patient completes activity. Assistance may be provided throughout the activity or intermittently. 3-Partial/Moderate Assistance-helper does LESS THAN HALF the effort. [place] lifts, holds or supports trunk or limbs, but provides less than half the effort. 2-Substantial/Maximal Assistance-helper does MORE THAN HALF the effort. [place] lifts or holds trunk or limbs and provides more than half the effort. 2-Trxgmmevf-hsufrk does ALL the effort. Patient does none of the effort to complete the activity. Or, the assistance of 2 or more helpers is required for the patient to complete the activity. If activity was not attempted, code reason: 7-Patient Refused. 9-Not Applicable-not attempted and the patient did not perform the activity before the current illness, exacerbation or injury. 10-Not Attempted due to Environmental Limitations-(lack of equipment, weather restraints, etc.). 88-Not Attempted due to Medical Conditions or Safety Concerns. Sit to Stand (QC): 2 Weight Bearing Right Lower Extremity: Right Weight Bearing/Tolerated Left Lower Extremity: Left Weight Bearing/Tolerated Gait Training The patient was unable to take steps today secondary to right knee pain. Exercises Seated Therapy Exercises: LE Protocol Seated Reps: 20 Assessment Current Status: Excellent Progress The patient had difficulty with sit to stand transfers secondary to knee pain. PT Rag Grader Goals Rag Grader Goals PT Rag Grader Goals Time Frame: January 09, 2020 Roll Left & Right (QC): 4 Sit to Lying (QC): 4 Lying-Sitting on Side/Bed(QC): 4 Sit to Stand (QC): 4 Chair/Dvi-ln-Lgijo Xfer(QC): 4 Toilet Transfer (QC): 4 Does the Patient Walk: No and Walking Goal IS indicated Walk 10 feet (QC): 3 Walk 50ft with 2 Turns (QC): 3 Walk 150 ft (QC): 3 PT Plan Treatment/Plan Treatment Plan: Continue Plan of Care Treatment Plan: Bed Mobility, Education, Functional Activity Drew, Functional Strength, Gait, Safety, Therapeutic Exercise, Transfers Treatment Duration: January 09, 2020 Frequency: 6 times per week Estimated Hrs Per Day: .5 hour per day Time/GCodes Time In: 1050 Time Out: 1115 Total Billed Treatment Time: 25 Total Billed Treatment 1, EX x 15, FA x 10 ANA FROST PT Dec 29, 2019 11:25
[2019-12-29 11:37] VITALS: BP 133/61
--- NOTE | 2019-12-29 11:40 | NUR ---
REPORT GIVEN TO YAKELIN YUSUF VIA [facility].
[2019-12-29] MEDS ORDERED: WARF5TAB PO (11:45)
[2019-12-29] MEDS ORDERED: AMOX1TAB11 PO (11:45)
[2019-12-29] MEDS ORDERED: ENOX100D4 SC (11:45)
--- NOTE | 2019-12-29 11:49 | Occupational Ther Daily Note ---
OT Current Status-Daily Note Subjective No pain reported. Mental Status/Objective Patient Orientation: Person, Place ADL-Treatment Therapy Code Descriptions/Definitions Functional [place] Measure: 0=Not Assessed/NA 4=Minimal Assistance 1=Total Assistance 5=Supervision or Setup 2=Maximal Assistance 6=Modified [place] 3=Moderate Assistance 7=Complete IndependenceSCALE: Activities may be completed with or without assistive devices. 1-Kymvqpowhu-acazqcr completes the activity by him/herself with no assistance from a helper. 5-Set-up or Clean-up Assistance-helper sets up or cleans up; patient completes activity. [place] assists only prior to or following the activity. 4-Supervision or Touching Assistance-helper provides verbal cues and/or touching/steadying and/or contact guard assistance as patient completes activity. Assistance may be provided throughout the activity or intermittently. 3-Partial/Moderate Assistance-helper does LESS THAN HALF the effort. [place] lifts, holds or supports trunk or limbs, but provides less than half the effort. 2-Substantial/Maximal Assistance-helper does MORE THAN HALF the effort. [place] lifts or holds trunk or limbs and provides more than half the effort. 1-Ktuemyrgm-bzcdnk does ALL the effort. Patient does none of the effort to complete the activity. Or, the assistance of 2 or more helpers is required for the patient to complete the activity. If activity was not attempted, code reason: 7-Patient Refused. 9-Not Applicable-not attempted and the patient did not perform the activity before the current illness, exacerbation or injury. 10-Not Attempted due to Environmental Limitations-(lack of equipment, weather restraints, etc.). 88-Not Attempted due to Medical Conditions or Safety Concerns. Upper Body Dressing (QC): 2 (Max assist to don shirt.) Lower Body Dressing (QC): 1 (Max assist to don clean brief, pants.) Toileting Hygiene (QC): 1 Other Treatment Pt. leaving today for [facility]. Pt. agrees to get dressed first. Pt. incontinent of urine in brief. Stood with max assist while OT pulled down brief. Donned clean brief and pants with dependent assist. Max assist sit-stand from chair. Pt. attempted to don clean shirt, but is unable to manipulate shirt to get left UE into. Max assist provided to thread bilateral UE and over head, and pt. able to pull in front over stomach. Pt. up in chair and dressed. All needs met. Education OT Patient Education: Correct positioning, Modified ADL techniques, Progress toward Goal/Update tx plan, Purpose of tx/functional activities, Reviewed precautions, Rehab process, Transfer techniques Teaching Recipient: Patient Teaching Methods: Demonstration, Discussion Response to Teaching: Verbalize Understanding, Return Demonstration, Reinforcement Needed OT Short Term Goals Short Term Goals Time Frame: January 04, 2020 Eatin Oral hygiene: 4 Toileting hygiene: 3 Upper body dressin Lower body dressin Putting on/taking off footwear: 3 OT Senior Care Goals Senior Care Goals Time Frame: January 11, 2020 Eating (QC): 6 Oral Hygiene (QC): 4 Toileting Hygiene (QC): 4 Upper Body Dressing (QC): 4 Lower Body Dressing (QC): 4 On/Off Footwear (QC): 4 Additional Goals: 1-Demonstrate ADL Tasks, 2-Verbalize Understanding, 3- ImproveStrength/Drew 1=Demonstrate adherence to instructed precautions during ADL tasks. 2=Patient will verbalize/demonstrate understanding of assistive devices/modifications for ADL. 3=Patient will improve strength/tolerance for activity to enable patient to perform ADL's. OT Education/Plan Problem List/Assessment Assessment: Decreased Activ Tolerance, Decreased UE Strength, Dependent Transfers, Impaired Bed Mobility, Impaired Funct Balance, Impaired I ADL's, Impaired Self-Care Skills, Restricted Funct UE ROM Discharge Recommendations Plan/Recommendations: Continue POC Therapy Discharge Recommendati: 24 Hour Supervision Target Placement [facility] Treatment Plan/Plan of Care Treatment,Training & Education: Yes Patient would benefit from OT for education, treatment and training to promote independence in ADL's, mobility, safety and/or upper extremity function for ADL's. Plan of Care: ADL Retraining, Functional Mobility, UE Funct Exercise/Act Treatment Duration: January 11, 2020 Frequency: 5 times per week Estimated Hrs Per Day: .25 hour per day Agreement: Yes Rehab Potential: Guarded Time/GCodes Start Time: 11:20 Stop Time: 11:35 Total Time Billed (hr/min): 15 Billed Treatment Time 1, ADL KEVIN GREEN OT Dec 29, 2019 11:48
--- NOTE | 2019-12-29 11:58 | Discharge Summary ---
Discharge Summary Reconcile Patient Problems Problems Reviewed?: Yes Hospital Course Hospital Course Date of Admission: Dec 25, 2019 at 14:45 Admission Diagnosis : acute hypoxic respiratory failure due to bilateral pulmonary emboli Family Physician/Provider: Brendon Trejo MD Date of Discharge: 12/29/19 Discharge Diagnosis: acute hypoxic respiratory failure due to bilateral pulmonary emboli Hospital Course: Nirav Reddy is an 79-year-old male with multiple comorbidities who presented with acute hypoxic respiratory failure and was admitted with bilateral pulmonary emboli. He was started on Coumadin with a Lovenox bridge. His INR was 1.3 on the day of discharge. He should have a repeat INR on . His oxygen requirement returned to his baseline prior to discharge. He was too debilitated to return home and required admission to [facility] for long term. Labs and Pending Lab Test: Laboratory Tests 12/29/19 05:05: White Blood Count 5.7, Red Blood Count 3.37L, Hemoglobin 10.8L, Hematocrit 33L, Mean Corpuscular Volume 97, Mean Corpuscular Hemoglobin 32, Mean Corpuscular Hemoglobin Concent 33, Red Cell Distribution Width 15.6H, Platelet Count 210, Mean Platelet Volume 10.2, Prothrombin Time 16.7H, INR Comment 1.3, Sodium Level 138, Potassium Level 4.3, Chloride Level 102, Carbon Dioxide Level 26, Anion Gap 10, Blood Urea Nitrogen 22H, Creatinine 0.82, Estimat Glomerular Filtration Rate > 60, BUN/Creatinine Ratio 27, Glucose Level 97, Calcium Level 8.6 Microbiology 12/25/19 Urine Culture - Final, Complete Enterococcus faecalis 12/25/19 Influenza Types A,B Antigen ([place]) - Final, Complete 12/25/19 Blood Culture - Preliminary, Resulted Staph, 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) Home Meds Active Coumadin (Warfarin Sodium) 5 Mg Tablet 5 Mg PO DAILY@1800 30 Days Enoxaparin Sodium 100 Mg/1 Ml Syringe 90 Mg SC Q12H 7 Days Amox Tr-K Clv 500-125 mg Tab (Amoxicillin/Potassium Clav) 1 Each Tablet 500 Mg PO BID WITH MEALS 10 Days Phenobarbital 64.8 Mg Tablet 129.6 Mg PO HS 30 Days TAKES 2 (64.8MG) TABS TO EQUAL 129.6MG Reported D3-2000 (Cholecalciferol (Vitamin D3)) 50 Mcg Capsule 50 Mcg PO DAILY Vitamin B-6 (Pyridoxine HCl) 100 Mg Tablet 100 Mg PO DAILY Folic Acid-Vit B6-Vit B12 Tab (Calcium/Vit B12/FA/Pyridoxine) 1 Each Tablet 1 Each PO DAILY Clotrimazole-Betamethasone Crm (Clotrimazole/Betamethasone Dip) 15 Gm Cream..g. 1 Applic TP BID PRN Benadryl (Diphenhydramine HCl) 25 Mg Capsule 25 Mg PO DAILY PRN Tessalon Perles (Benzonatate) 100 Mg Capsule 100-200 Mg PO TID PRN Albuterol Sulfate 2.5 Mg/0.5 Ml Vial.neb 2.5 Mg INH BID PRN WHEN IN A COPD FLARE HE TAKES A TREAMENT EVERY 4-6 HOURS *3-4 TIMES DAILY) Mucinex (Guaifenesin) 600 Mg Tab.er.12h 600 Mg PO BID PRN Metronidazole 45 Gm Gel..gram. 1 Applic TD BID PRN APPLIES TO THE FOREHEAD Clobetasol Propionate 15 Gm Cream..g. 1 Applic TOP BID APPLY TO THE LEFT ARM TWICE DAILY Miralax (Polyethylene Glycol 3350) 17 Gm Powd.pack 17 Gm PO DAILY Chlorhexidine Gluconate 473 Ml Mouthwash 5-10 Ml MT BID RINSE AND SPIT TWICE DAILY Symbicort 160-4.5 Mcg Inhaler (Budesonide/Formoterol Fumarate) 10.2 Gm Hfa.aer.ad 2 Puff IH BID Montelukast Sodium 10 Mg Tablet 10 Mg PO HS Furosemide 40 Mg Tablet 40 Mg PO DAILY Lisinopril 5 Mg Tablet 5 Mg PO DAILY Metoprolol Succinate 50 Mg Tab.er.24h 50 Mg PO DAILY Digoxin 250 Mcg Tablet 250 Mcg PO DAILY Phenytoin Sodium Extended 100 Mg Capsule 200 Mg PO DAILY TAKES 2 (100MG) CAPS IN THE MORNING AND 3 (100MG) CAPS AT 1800 Phenytoin Sodium Extended 100 Mg Capsule 300 Mg PO 1800 TAKES 2 (100MG) CAPS IN THE MORNING AND 3 (100MG) CAPS AT 1800 Aspirin EC (Aspirin) 81 Mg Tablet.dr 81 Mg PO DAILY Simvastatin 10 Mg Tablet 10 Mg PO HS Levothyroxine Sodium 75 Mcg Tablet 75 Mcg PO DAILY Instructions to Patient/Family Assessment/Instructions take medications as prescribed. Participate in therapies. Follow Up Appt.: next longterm rounds Skilled NF Admit to: [facility] Certification (SNF) I certify that SNF services are required to be given on an inpatient basis because of the above named patient's need for long term care on a continuing basis for the conditions(s) for which he/she was receiving inpatient hospital services prior to his/her transfer to the SNF. Penitentiary Facility Order: Nursing Services, [place] Technician-Evaluate & Treat, Physical Therapy-Evaluate & Treat, Speech Language-Evaluate & Treat Oxygen Delivery Method: Nasal Cannula Discharge Diet: Low Sodium Diet Daily Activity as Tolerated: Yes Resuscitation Status: Do Not Resuscitate Cali Buckley Dec 29, 2019 11:55 Discharge Physical Exam General: Alert, Oriented X3, Cooperative, No Acute Distress HEENT: Atraumatic, Mucous Memb Moist/[place] Lungs: Clear to Auscultation, Normal Air Movement Heart: Regular Rate, Normal S1, Normal S2, No Murmurs Abdomen: Normal Bowel Sounds, Soft, No Tenderness Extremities: No Edema, No Tenderness/Swelling Skin: No Rashes, No Significant Lesion Neuro: Normal Gait, Other (hoarse voice) Psych/Mental Status: Mental Status NL, Mood NL CALI BUCKLEY MD Dec 29, 2019 11:58
[2019-12-29 13:44] VITALS: BP 133/61
--- NOTE | 2019-12-29 18:04 | NUR ---
Finalized discharge plan: Pt will discharge to [facility] today at 1p.m. for skilled admission. His has been notified of discharge time et will f/u with Hanh at [facility] to coordinate when she can bring his things to [facility]. No further needs noted at this time. Addendum: 12/29/19 at 1806 by AILEEN ADORNO RN This was a late entry from noon today.
== END 2019-12-29 13:44 | DRG 175 ==
LOC: EDUNIT# 12:16 → ER 12:18 → 4TH 14:45
PROVIDERS: ADMIT Family Medicine; ATTEND Family Medicine
DX: I26.99 Other pulmonary embolism without acute cor pulmonale (principal); J96.21 Acute and chronic respiratory failure with hypoxia; J18.9 Pneumonia, unspecified organism; J44.9 Chronic obstructive pulmonary disease, unspecified; I42.9 Cardiomyopathy, unspecified; N39.0 Urinary tract infection, site not specified; B95.2 Enterococcus as the cause of diseases classified elsewhere; Z66 Do not resuscitate; I11.0 Hypertensive heart disease with heart failure; I50.9 Heart failure, unspecified; E03.9 Hypothyroidism, unspecified; I25.10 Atherosclerotic heart disease of native coronary artery without angina pectoris; I73.9 Peripheral vascular disease, unspecified; E78.00 Pure hypercholesterolemia, unspecified; S50.312A Abrasion of left elbow, initial encounter; W19.XXXA Unspecified fall, initial encounter; G40.909 Epilepsy, unspecified, not intractable, without status epilepticus; G62.9 Polyneuropathy, unspecified; K22.0 Achalasia of cardia; M19.91 Primary osteoarthritis, unspecified site; M54.9 Dorsalgia, unspecified; F32.9 Major depressive disorder, single episode, unspecified; Z20.828 Contact with and (suspected) exposure to other viral communicable diseases; Z95.1 Presence of aortocoronary bypass graft; Z95.5 Presence of coronary angioplasty implant and graft; Z99.81 Dependence on supplemental oxygen; Z87.891 Personal history of nicotine dependence; Z95.810 Presence of automatic (implantable) cardiac defibrillator; Z86.73 Personal history of transient ischemic attack (TIA), and cerebral infarction without residual deficits; Z85.828 Personal history of other malignant neoplasm of skin
CPT/HCPCS: 36415; 36600; 71045; 71275; 80048; 80053; 80162; 80184; 80185; 81000; 82550; 82553; 82805; 83605; 83615; 83735; 83874; 83880; 84145; 84484; 85025; 85027; 85379; 85610; 85652; 85730; 86141; 87040; 87077; 87088; 87186; 87631; 87635; 87798; 87804; 93005; 93041; 94640; 94760; 96365; 96375

== ENCOUNTER → 2020-02-18 | Outpatient (CLI) | payer MEDICARE ==
[~2020-02-18] MED LIST changes: +AMOX1TAB11 PO; +BENZ100C18 PO; +CALC-65 PO; +CHOL200012 PO; +CLOT15CR6 TP; +DIPH25CA79 PO; +ENOX100D4 SC; +PYRI100T10 PO; +WARF5TAB PO
--- NOTE | 2020-02-18 11:00 | Diagnostic Imaging Report ---
EXAMINATION: Chest 2 view HISTORY: Cough. Shortness of breath. Cough after drinking. COMPARISON: Chest radiograph on 12/25/2019. FINDINGS: The lung volumes are hyperexpanded. No focal consolidation is seen. No large pleural effusion or pneumothorax is seen. 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 There is calcified aortic atherosclerotic plaque. No acute osseous abnormality is seen. IMPRESSION: 1. Hyperexpanded lungs, which can be seen with COPD. No focal consolidations. 2. Cardiomegaly. No overt pulmonary edema. Dictated by: Dictated on workstation # [id number]
--- NOTE | 2020-02-18 11:18 | Diagnostic Imaging Report ---
INDICATION: Cough and dysphagia. TECHNIQUE: Procedure was performed in conjunction with speech pathology. Videofluoroscopy was performed during the swallowing of barium in multiple consistencies. Patient ingested thin liquid with a spoon and through a straw. Patient also ingested nectar, puree, mechanical soft and solid consistency. Total of 1 minute 10 seconds of fluoroscopic time was utilized. FINDINGS: Oral phase is unremarkable. There was a single episode of flash penetration during the swallowing of thin liquid through a straw. No aspiration was visualized. There is normal epiglottic tilt and laryngeal elevation. IMPRESSION: Essentially unremarkable modified barium swallow. There was a single episode of flash penetration during the swallowing of thin barium. No aspiration was observed. Dictated by: Dictated on workstation # [id number]
== END ==
LOC: RAD 09:52
PROVIDERS: ATTEND Physician Assistant
DX: R13.10 Dysphagia, unspecified (principal); R05 Cough; R06.02 Shortness of breath
CPT/HCPCS: 71046; 74230

== ENCOUNTER 2020-02-29 05:36 | Outpatient (RCR) | payer MEDICARE ==
[~2020-02-29] VITALS: Ht 185.5 cm; Wt 86.8 kg
[~2020-02-29 05:36] MED LIST changes: -WARF5TAB PO; +WARF5TAB2 PO
== END 2020-02-29 09:54 | disposition home or self-care (01) ==
LOC: PREOP 05:36
PROVIDERS: ATTEND Surgery
DX: Z01.812 Encounter for preprocedural laboratory examination (principal); L98.9 Disorder of the skin and subcutaneous tissue, unspecified; Z20.828 Contact with and (suspected) exposure to other viral communicable diseases
CPT/HCPCS: 87635

== ENCOUNTER 2020-03-03 10:36 | Day surgery (SDC) | payer MEDICARE ==
[~2020-03-03] VITALS: Ht 185.5 cm; Wt 86.8 kg
[2020-03-03] VITALS (8 sets, daily range): BP systolic 133–158; BP diastolic 60–81
[2020-03-03] MEDS ORDERED: LACTATED RINGERS 1,000 ML IV PRN (11:18)
[2020-03-03] MEDS ORDERED: BUP/EPI 0.5% 1:200,000 (SENSORCAINE) 30 ML VIAL ONE (11:23)
[2020-03-03] MEDS ORDERED: ceFAZolin 2 GM IV Premixed 50 ML IV ONE (11:30)
[2020-03-03 11:35] LABS: INR 1.1 (0.8-1.4); PROTHROMBIN TIME PATIENT 14.5 SEC (12.2-14.7)
--- NOTE | 2020-03-03 11:41 | Progress Note-Pre Operative ---
Pre-Operative Progress Note H&P Reviewed The H&P was reviewed, patient examined and no changes noted. Date Seen by Provider: Mar 03, 2020 Time Seen by Provider: 11:41 Date H&P Reviewed: Mar 03, 2020 Time H&P Reviewed: 11:41 Pre-Operative Diagnosis: skin lesions left arm CORNELIO JACOBO DO Mar 03, 2020 11:41
[2020-03-03] MEDS ORDERED: proPOfol 200 MG/20 ML (DIPRIVAN) VIAL IV ONE (12:25)
[2020-03-03] MEDS ORDERED: MIDAZOLAM 2 MG/2 ML (VERSED) VIAL ONE (12:25)
[2020-03-03] MEDS ORDERED: KETAMINE/NaCl 50 MG/5 ML SYRINGE (ED ONLY) ONE (12:25)
--- NOTE | 2020-03-03 14:17 | Anesthesia-General Post-Op ---
MAC Patient Condition Mental Status/LOC: Same as Preop Cardiovascular: Satisfactory Nausea/Vomiting: Absent Respiratory: Satisfactory Pain: Controlled Complications: Absent Post Op Complications Complications None Follow Up Care/Instructions Patient Instructions None needed. Anesthesiology Discharge Order Discharge Order Patient is doing well, no complaints, stable vital signs, no apparent adverse anesthesia problems. EARL FROST DO Mar 03, 2020 14:17
--- NOTE | 2020-03-03 15:34 | Progress Note-Post Operative ---
Post-Operative Progess Note Surgeon (s)/Financial Services Counselor (s) Surgeon CORNELIO JACOBO DO Financial Services Counselor: na Pre-Operative Diagnosis skin lesions left arm Post-Operative Diagnosis same Procedure & Operative Findings Date of Procedure 03/03/20 Procedure Performed/Findings excision of left skin lesion 1.6x1.3 cm and 3.5x3.5 cm Anesthesia Type mac c local Estimated Blood Loss Estimated blood loss (mL): min Specimens/Packing Specimens Removed skin lesion x 2 CORNELIO JACOBO DO Mar 03, 2020 15:34
--- NOTE | 2020-03-04 00:52 | OPERATIVE REPORT ---
DATE OF SERVICE: 03/03/2020 PREOPERATIVE DIAGNOSIS: Skin lesions, left arm. POSTOPERATIVE DIAGNOSIS: Skin lesions, left arm. PROCEDURE: Excision of left arm skin lesion 1.6 x 1.3 cm, left lateral forearm and excision of skin lesion 3.5 x 3.5, left posterior medial aspect of forearm. SURGEON: Cornelio De Anda DO ANESTHESIA: MAC with local. ESTIMATED BLOOD LOSS: Minimal. COMPLICATIONS: None. INDICATIONS: The patient is an 79-year-old male with skin lesions. He understands risks and benefits of procedure and wished to proceed with procedure. Consent was signed in the chart. DESCRIPTION OF PROCEDURE: The patient was taken to the operating suite, prepped and draped in sterile fashion. Timeout was performed. Local anesthetic was infiltrated around the lesions. A 15-blade scalpel was used to make an elliptical incision around the left lateral forearm lesion measuring 1.6 x 1.3 cm. Skin and subcutaneous tissue was removed. The skin was then closed using 3-0 nylon in simple interrupted fashion. The skin lesion on the posterior medial aspect of the forearm was then excised. Total dimensions being 3.5 x 3.5 cm. Skin and subcutaneous tissue were removed. Hemostasis was achieved. The wound was irrigated and the wound was then packed wet to dry. The patient tolerated procedure well without any complications. He was taken to recovery room in stable condition. RECOMMENDATIONS: The patient will need daily dressing changes wet to dry. Instructions were provided to his family. The patient will follow up in approximately 2 weeks. Any issues before that be seen at that time. Job ID: [id number] DocumentID: [id number] Dictated Date: 03/03/2020 16:31:17 Parks Recreation Coordinator Date: 03/04/2020 00:52:03 Dictated By: CORNELIO DE ANDA DO
== END 2020-03-03 15:30 | disposition home or self-care (01) ==
LOC: SDC 10:36
PROVIDERS: ATTEND Surgery
DX: C44.629 Squamous cell carcinoma of skin of left upper limb, including shoulder (principal); K21.9 Gastro-esophageal reflux disease without esophagitis; I25.10 Atherosclerotic heart disease of native coronary artery without angina pectoris; E78.5 Hyperlipidemia, unspecified; E66.9 Obesity, unspecified; E87.5 Hyperkalemia; I50.22 Chronic systolic (congestive) heart failure; J45.909 Unspecified asthma, uncomplicated; Z87.891 Personal history of nicotine dependence; Z88.8 Allergy status to other drugs, medicaments and biological substances; Z79.82 Long term (current) use of aspirin; Z79.01 Long term (current) use of anticoagulants
CPT/HCPCS: 36415; 85610; 87081; 88305

== ENCOUNTER 2020-03-06 09:51 | Inpatient (IN) | payer MEDICARE ==
[~2020-03-06] VITALS: Ht 195 cm; Wt 91.2 kg
[2020-03-06] MEDS ORDERED: NS IV 1000 ML 1,000 ML IV SCH (10:33)
[2020-03-06] MEDS ORDERED: methylPREDNISolone 125 MG (Solu-MEDROL) VIAL IV STA (10:33)
[2020-03-06] MEDS ORDERED: NS IV 500 ML 500 ML IV ONE (10:33)
[2020-03-06 10:41] LABS: ABG BASE EXCESS 0.7 MMOL/L (-2.5-2.5); ABG OXYGEN SATURATION 93 % (94-100); ABG PCO2 46 MMHG (35-45); ABG PH 7.37 (7.37-7.43); ABG PO2 71 MMHG (79-93); ABG TCO2 26.8 MMOL/L (21.0-31.0)
--- NOTE | 2020-03-06 10:41 | ED Respiratory ---
General Chief Complaint: Respiratory Problems Nursing Triage Note: PT BROUGHT IN BY EMS FROM HOME WITH INCREASED SOA OVER LAST SEVERAL DAYS. PT BROUGHT IN ON C-PAP. C-PAP CHANGED TO OXYMASK UNTIL RT ARRIVES TO SWITCH HIM TO BIPAP. Source: patient Exam Limitations: no limitations History of Present Illness Date Seen by Provider: Mar 06, 2020 Time Seen by Provider: 09:51 Initial Comments Patient presents to ER by EMS from home with chief complaint of shortness of breath starting in the last day or so. He is using a breathing treatment when they arrived. Oxygen sats in the upper 60s. Blood pressure 160s. 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 Patient denies any fevers but he has a cough occasionally productive of just chronic. Quit smoking in the 1949s when he had his coronary bypass. Dr Vasquez, PCP. Rae. HAd a hospitalization earlier in the year for COPD/PNA. Went to [facility] for rehabilitation and was doing much better and went home and then developed pneumonia and pulmonary embolism. He is now on Coumadin and aspirin. He had backed out of the hospital and came home a little bit ago and after a short stent and [facility] for rehabilitation and was again doing well until the last couple days. He had discussed hospice before but has not elected at this time. He is a DO NOT RESUSCITATE. also states that he only tolerates laying gram Dilantin says she typically brings his home Dilantin for him to take. 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 De Anda did a wide resection last week and he is still doing wet to dry bandages daily. Allergies and Home Medications Allergies Coded Allergies: amiodarone (Verified Allergy, Severe, 03/13/19) lorazepam (Verified Allergy, Unknown, 03/13/19) scopolamine (Verified Allergy, Unknown, 03/13/19) Home Medications Albuterol Sulfate 2.5 Mg/0.5 Ml Vial.neb, 2.5 MG INH BID PRN for SHORTNESS OF BREATH, (Reported) WHEN IN A COPD FLARE HE TAKES A TREAMENT EVERY 4-6 HOURS *3-4 TIMES DAILY) Benzonatate 100 Mg Capsule, 100-200 MG PO TID PRN for COUGH, (Reported) Budesonide/Formoterol Fumarate 10.2 Gm Hfa.aer.ad, 2 PUFF IH BID, (Reported) Calcium/Vit B12/FA/Pyridoxine 1 Each Tablet, 1 EACH PO DAILY, (Reported) Chlorhexidine Gluconate 473 Ml Mouthwash, 5-10 ML MT BID, (Reported) RINSE AND SPIT TWICE DAILY Cholecalciferol (Vitamin D3) 50 Mcg Capsule, 50 MCG PO DAILY, (Reported) Clotrimazole/Betamethasone Dip 15 Gm Cream..g., 1 APPLIC TP BID PRN for ITCHING, (Reported) Digoxin 250 Mcg Tablet, 250 MCG PO DAILY@1200, (Reported) Diphenhydramine HCl 25 Mg Capsule, 25 MG PO DAILY PRN for ITCHING, (Reported) Furosemide 40 Mg Tablet, 40 MG PO DAILY, (Reported) Guaifenesin 600 Mg Tab.er.12h, 600 MG PO BID PRN for CONGESTION, (Reported) Levothyroxine Sodium 75 Mcg Tablet, 75 MCG PO DAILY, (Reported) Lisinopril 5 Mg Tablet, 5 MG PO DAILY, (Reported) Metoprolol Succinate 50 Mg Tab.er.24h, 50 MG PO DAILY, (Reported) Metronidazole 45 Gm Gel..gram., 1 APPLIC TD BID PRN for BREAKOUT, (Reported) APPLIES TO THE FOREHEAD Montelukast Sodium 10 Mg Tablet, 10 MG PO HS, (Reported) Phenobarbital 64.8 Mg Tablet, 129.6 MG PO HS TAKES 2 (64.8MG) TABS TO EQUAL 129.6MG Prescribed by: CALI BUCKLEY on 11/16/19 1352 Phenytoin Sodium Extended 100 Mg Capsule, 300 MG PO 1800, (Reported) TAKES 2 (100MG) CAPS IN THE MORNING AND 3 (100MG) CAPS AT 1800 Phenytoin Sodium Extended 100 Mg Capsule, 200 MG PO DAILY, (Reported) TAKES 2 (100MG) CAPS IN THE MORNING AND 3 (100MG) CAPS AT 1800 Polyethylene Glycol 3350 17 Gm Powd.pack, 17 GM PO DAILY, (Reported) Pyridoxine HCl 100 Mg Tablet, 100 MG PO DAILY, (Reported) Simvastatin 10 Mg Tablet, 10 MG PO HS, (Reported) Patient Home Medication List Home Medication List Reviewed: Yes Review of Systems Review of Systems Constitutional: No chills, No fever; malaise, weakness EENTM: No ear discharge, No hearing loss, No ear pain Respiratory: cough; No phlegm; short of breath, wheezing Cardiovascular: No chest pain, No edema; Hx of Intervention; No palpitations; vascular heart diseas Gastrointestinal: No abdominal pain, No constipation, No diarrhea, No nausea Genitourinary: No discharge, No dysuria Musculoskeletal: No back pain, No joint pain All Other Systems Reviewed Negative Unless Noted: Yes Past Qgyhjcn-Xfcass-Mtbqvx Hx Patient Social History Alcohol Use: Denies Use Recreational Drug Use: No Smoking Status: Former Smoker Type Used: Cigarettes Former Smoker, Quit: Jan 31, 1990 2nd Hand Smoke Exposure: No Recent Foreign Travel: No Contact w/Someone Who Travel: No Recent Infectious Disease Expo: No Recent Hopitalizations: No Immunizations Up To Date Tetanus Booster (TDap): Less than 5yrs PED Vaccines UTD: Yes Date of Pneumonia Vaccine: January 20, 2015 Date of Influenza Vaccine: May 10, 2019 Seasonal Allergies Seasonal Allergies: Yes Past Medical History Surgeries: Yes (SEE BELOW) Cardiac, CABG, Coronary Stent, Defibrillator, Eye Surgery, Pacemaker Respiratory: Yes (INTUBATED 2012; WEARS OXYGEN) Pneumonia, Chronic Bronchitis, COPD Currently Using CPAP: No Currently Using BIPAP: No Cardiac: Yes (3 VESSEL CABG; STENTS X 2; CHF; CARDIAC ARREST 12/1997;CAROTID DISEASE;LBBB) Cardiomyopathy, Coronary Artery Disease, High Cholesterol, Hypertension, Peripheral Vascular Neurological: Yes (Brain biopsy 1990; SEIZURES SINCE 1990;FALLS/POOR BALANCE) Neuropathy, Seizure Disorder, Stroke Reproductive Disorders: No Sexually Transmitted Disease: No Genitourinary: Yes Bladder Infection, Renal Failure Gastrointestinal: Yes (ACHALASIA;) Abdominal Hernia 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;LEG FX 1964;L HUMERUS FX 2013;FALLS/POOR BALANCE) Degenerate Disk Disease, Arthritis, Chronic Back Pain, Fractures Endocrine: Yes Hypothyroidsim HEENT: Yes Cataract Hearing Impairment: Hard of Hearing Cancer: Yes (pre-skin cancer) Skin Did You Recieve Any Treatments: Yes What Type of Treatment Did You: Surgical Intervention Psychosocial: Yes Depression Integumentary: No (chronic rash over 2 months, vs pre skin cancer) Blood Disorders: No Adverse Reaction/Blood Tranf: No Family Medical History Arthritis 19 MOTHER, Cardiovascular disease G8 BROTHER, G8 BROTHER, , Age:67 G8 BROTHER G8 SISTER Cataracts G8 BROTHER, , Age:67 G8 BROTHER Completed stroke 19 MOTHER, Deafness or hearing loss G8 BROTHER G8 BROTHER Diabetes mellitus G8 SISTER Headache disorder 19 FATHER, 19 MOTHER, G8 BROTHER, G8 BROTHER, , Age:67 G8 BROTHER G8 BROTHER G8 SISTER Hypercholesterolemia G8 BROTHER, , Age:67 G8 BROTHER G8 BROTHER G8 SISTER Hypertension 19 MOTHER, G8 BROTHER G8 SISTER Myocardial infarction G8 BROTHER, , Age:67 G8 BROTHER G8 SISTER Respiratory disorder G8 BROTHER, Thyroid disease G8 SISTER No Family History of: AIDS Abdominal aortic aneurysm Purmela's disease Alcoholism Alzheimer's disease Aphasia Asthma Cancer of mouth Colon cancer Congenital disease Congenital heart disease Cystic fibrosis Dementia Drug abuse Dysphasia Fibrocystic disease of breast Gastroenteritis Glaucoma Infertility Kidney disease Neoplasm Not obtainable due to adoption Osteoporosis Parkinson's disease Prostate cancer Psychosocial problem Seizure disorder Severe allergy Tuberculosis Visual disorder No Pertinent Family Hx PSH: -HERNIA REPAIR 1977 -3 VESSEL CABG 1990--DR. WESTON -BRAIN BIOPSY ON RIGHT 1990 -DEFIBRILLATOR/PACEMAKER 1997, WITH REPLACEMENTS--LAST REPLACEMENT 05/10/15 -ORAL SURGERY 1998 -LEFT EYE SURGERY TO REMOVE PTERYGIUM 1999 -RIGHT EYE SURGERY TO REMOVE PTERYGIUM 2012 -CARDIAC CATHS--2 STENTS 2009 -BRONCHOSCOPY -COLONOSCOPY -SKIN CANCER REMOVED - ADDITIONAL PMH: -MULTIPLE ADMITS FOR COPD AND PNEUMONIA, WITH RESPIRATORY FAILURE AND HAS BEEN INTUBATED IN 2012-HAD PNEUMONIA, INFLUENZA B AND CHF, THEN MOST RECENTLY ADMITTED 11/02/19-11/15 WITH PNEUMONIA/RESPIRATORY FAILURE AND INFLUENZA B AND CHG-NO INTUBATION. Physical Exam Vital Signs - First Documented 03/06/20 03/06/20 09:51 11:19 Temp 37.1 Pulse 101 Resp 16 B/P (MAP) 154/76 (102) Pulse Ox 96 O2 Delivery OxyMask O2 Flow Rate 50.00 Capillary Refill : Less Than 3 Seconds Height: 6'0" Weight: 187lbs. 0.0oz. [id number]; 21.00 BMI Method:Stated General Appearance: severe distress, other (Chronically ill) Eyes: Bilateral Eye Normal Inspection, Bilateral Eye PERRL, Bilateral Eye EOMI HEENT: PERRL/EOMI, normal ENT inspection, pharynx normal Neck: non-tender, full range of motion, supple, normal inspection Respiratory: chest non-tender, no respiratory distress, decreased breath sounds, accessory muscle use, wheezing (mild), expiration (Prolonged), other (CPAP 10 cm water pressure) Cardiovascular: normal peripheral pulses, regular rate, rhythm, no edema Gastrointestinal: normal bowel sounds, non tender, soft, no organomegaly Extremities: normal range of motion, non-tender, normal capillary refill Neurologic/Psychiatric: no motor/sensory deficits, alert, normal mood/affect, oriented x 3 Skin: normal color, warm/dry Focused Exam Sepsis Stage: Sepsis Possible Source: Pulmonary Lactate Level 03/06/20 10:00: Lactic Acid Level 1.71 Time of Focused Exam: 13:01 Respiratory: Lungs Clear, No Accessory Muscle Use, Expiration, Respiratory Distress (mod) Cardiovascular: Regular Rate, Rhythm, No Edema, Normal Peripheral Pulses Capillary Refill: Less Than 3 Seconds Peripheral Pulses: 2+ Radial Pulses (R), 2+ Radial Pulses (L) Skin: normal color, warm/dry Lactic Acid Level Laboratory Tests Test 03/06/20 10:00 Lactic Acid Level 1.71 MMOL/L (0.50-2.00) Within 3hrs of presentation: Admin fluids, Admin ABX, Blood cultures prior to ABX's, Focus exam, Lactate level Procedures/Interventions Suture Size: 5-0 Progress/Results/Core Measures Suspected Sepsis Recent Fever Within 48 Hours: No Infection Criteria Present: None New/Unexplained Altered Menta: No Sepsis Screen: No Definite Risk SIRS Temperature: Pulse: 101 Respiratory Rate: 16 Laboratory Tests 03/06/20 10:00: White Blood Count 9.2 Blood Pressure 154 /76 Mean: 102 03/06/20 10:00: Lactic Acid Level 1.71 Laboratory Tests 03/06/20 10:00: Creatinine 1.06, INR Comment 1.0, Platelet Count 170, Total Bilirubin 0.3 Results/Orders Lab Results Laboratory Tests Test 03/06/20 10:00 03/06/20 10:10 03/06/20 10:14 Range/Units White Blood Count 9.2 4.3-11.0 10^3/uL Red Blood Count 4.35 4.35-5.85 10^6/uL Hemoglobin 14.1 13.3-17.7 G/DL Hematocrit 42 40-54 % Mean Corpuscular Volume 97 80-99 FL Mean Corpuscular Hemoglobin 32 25-34 PG Mean Corpuscular Hemoglobin Concent 33 32-36 G/DL Red Cell Distribution Width 14.4 10.0-14.5 % Platelet Count 170 130-400 10^3/uL Mean Platelet Volume 10.2 7.4-10.4 FL Neutrophils (%) (Auto) 70 42-75 % Lymphocytes (%) (Auto) 19 12-44 % Monocytes (%) (Auto) 7 0-12 % Eosinophils (%) (Auto) 4 0-10 % Basophils (%) (Auto) 0 0-10 % Neutrophils # (Auto) 6.5 1.8-7.8 X 10^3 Lymphocytes # (Auto) 1.7 1.0-4.0 X 10^3 Monocytes # (Auto) 0.7 0.0-1.0 X 10^3 Eosinophils # (Auto) 0.3 0.0-0.3 10^3/uL Basophils # (Auto) 0.0 0.0-0.1 10^3/uL Erythrocyte Sedimentation Rate 45 H 0-30 MM/HR Prothrombin Time 13.7 12.2-14.7 SEC INR Comment 1.0 0.8-1.4 Activated Partial Thromboplast Time 25 24-35 SEC D-Dimer 8.32 H 0.00-0.49 UG/ML Sodium Level 139 135-145 MMOL/L Potassium Level 4.5 3.6-5.0 MMOL/L Chloride Level 104 98-107 MMOL/L Carbon Dioxide Level 24 21-32 MMOL/L Anion Gap 11 5-14 MMOL/L Blood Urea Nitrogen 15 7-18 MG/DL Creatinine 1.06 0.60-1.30 MG/DL Estimat Glomerular Filtration Rate > 60 BUN/Creatinine Ratio 14 Glucose Level 161 H 70-105 MG/DL Lactic Acid Level 1.71 0.50-2.00 MMOL/L Calcium Level 8.9 8.5-10.1 MG/DL Corrected Calcium 9.0 8.5-10.1 MG/DL Total Bilirubin 0.3 0.1-1.0 MG/DL Aspartate Amino Transf (AST/SGOT) 26 5-34 U/L Alanine Aminotransferase (ALT/SGPT) 24 0-55 U/L Alkaline Phosphatase 183 H 40-136 U/L Troponin I 0.038 H <0.028 NG/ML C-Reactive Protein High Sensitivity 2.80 H 0.00-0.50 MG/DL B-Type Natriuretic Peptide 274.3 H <100.0 PG/ML Total Protein 8.7 H 6.4-8.2 GM/DL Albumin 3.9 3.2-4.5 GM/DL Procalcitonin 0.05 <0.10 NG/ML Blood Gas Puncture Site R.RADIAL Blood Gas Patient Temperature 98.8 Arterial Blood pH 7.37 7.37-7.43 Arterial Blood Partial Pressure CO2 46 H 35-45 MMHG Arterial Blood Partial Pressure O2 71 L 79-93 MMHG Arterial Blood HCO3 25 23-27 MMOL/L Arterial Blood Total CO2 26.8 21.0-31.0 MMOL/L Arterial Blood Oxygen Saturation 93 L 94-100 % Arterial Blood Base Excess 0.7 -2.5-2.5 MMOL/L Amrit Test Y Blood Gas Ventilator Setting YES Blood Gas Inspired Oxygen 50% My Orders Orders - ARMEN,JEFFERY J Arterial Blood Gas (03/06/20 10:32) Cbc With Automated Diff (03/06/20 10:33) Comprehensive Metabolic Panel (03/06/20 10:33) Blood Culture (03/06/20 10:33) Sputum Culture (03/06/20 10:33) Urinalysis (03/06/20 10:33) Urine Culture (03/06/20 10:33) Protime With Inr (03/06/20 10:33) Partial Thromboplastin Time (03/06/20 10:33) Chest 1 View, Ap/Pa Only (03/06/20 10:33) Ed Iv/Invasive Line Start (03/06/20 10:33) Ed Iv/Invasive Line Start (03/06/20 10:33) Ekg Tracing (03/06/20 10:33) Troponin I (03/06/20 10:33) Vital Signs Adult Sepsis Patie Q15M (03/06/20 10:33) O2 (03/06/20 10:33) Remove Rings In Anticipation O (03/06/20 10:33) Lactic Acid Analyzer (03/06/20 10:33) Ns Iv 1000 Ml (Sodium Chloride 0.9%) (03/06/20 10:33) Cefepime Injection (Maxipime Injection) (03/06/20 10:45) Vancomycin Injection (Vancomycin Injecti (03/06/20 10:45) BNP (03/06/20 10:33) Ed Iv/Invasive Line Start (03/06/20 10:33) Ns Iv 500 Ml (Sodium Chloride 0.9%) (03/06/20 10:33) Albuterol/Ipra Inhalation Soln (Duoneb I (03/06/20 10:45) Rt Request For Service (03/06/20 10:33) Methylprednisolone Sod Succ (Solu-Medrol (03/06/20 10:33) Fibrin Degradation Products (03/06/20 10:33) Procalcitonin (Pct) (03/06/20 10:33) Hs C Reactive Protein (03/06/20 10:33) Erythrocyte Sedimentation Rate (03/06/20 10:33) Coronavirus Sars-Cov-2 So 2018 (03/06/20 10:33) Svn Small Volume Nebulizer (03/06/20 10:33) Arterial Blood Draw (03/06/20 11:27) Enoxaparin Injection (Lovenox Injection) (03/06/20 12:30) Dilantin (Phenytoin) (03/06/20 12:20) Iohexol Injection (Omnipaque 350 Mg/Ml 1 (03/06/20 13:30) Received Contrast (Hold Metformin- Contr (03/06/20 13:30) Sodium Chloride Flush (Catheter Flush Sy (03/06/20 13:30) Ns (Ivpb) (Sodium Chloride 0.9% Ivpb Bag (03/06/20 13:30) Ct Angio Chest W (03/06/20 12:19) Medications Given in ED Current Medications Medications Dose Ordered Sig/Yissel Route Start Time Stop Time Status Last Admin Dose Admin Cefepime HCl 1000 mg/Sterile Water 10 ml @ 200 mls/hr ONCE ONCE IV 03/06/20 10:45 03/06/20 10:47 DC 03/06/20 11:23 200 MLS/HR Enoxaparin Sodium 80 mg ONCE ONCE SC 03/06/20 12:30 03/06/20 12:31 DC 03/06/20 13:14 80 MG Iohexol 100 ml ONCE ONCE IV 03/06/20 13:30 03/06/20 13:31 DC 03/06/20 13:27 71 ML Sodium Chloride 10 ml NEEDED PRN IV 03/06/20 13:30 03/06/20 13:27 10 ML Sodium Chloride 100 ml ONCE ONCE IV 03/06/20 13:30 03/06/20 13:31 DC 03/06/20 13:27 80 ML Sodium Chloride 500 ml @ 0 mls/hr Q0M ONCE IV 03/06/20 10:33 03/06/20 10:38 DC 03/06/20 11:42 500 MLS/HR Vital Signs/I&O 03/06/20 03/06/20 09:51 11:19 Temp 37.1 Pulse 101 104 Resp 16 20 B/P (MAP) 154/76 (102) Pulse Ox 96 96 O2 Delivery OxyMask O2 Flow Rate 50.00 Capillary Refill : Less Than 3 Seconds Blood Pressure Mean: 102 Progress Note #1: Time: 10:49 Progress Note ABG obtained . The patient is satting much better in the 90s and breathing much better more comfortable able to speak full sentences.Work of breathing. Plan for ICU care. COVID 19 swabs. Progress Note #2: Time: 13:03 Progress Note Elevated troponin was felt to be likely due to whatever his respiratory distress syndrome is caused by. ECG Initial ECG Impression Date: Mar 06, 2020 Initial ECG Impression Time: 10:29 Initial ECG Rate: 95 Initial ECG Rhythm: Normal Sinus Initial ECG Intervals: QT (523) Initial ECG Impression: Nonspecific Changes Comment Left bundle branch block with normal sinus rhythm and no clinically relevant ST changes. Diagnostic Imaging Diagonstic Imaging: Xray Plain Films/CT/US/NM/MRI: chest Comments [facility] [employer] [facility] [employer] [facility] [place], [place] NAME: LLUVIA GOLDBERG [facility] REC#: [id number] PT STATUS: REG ER : 1940 PHYSICIAN: JEFFERY AYERS MD ADMIT DATE: 03/06/20/ER Signed Date of Exam:03/06/20 CHEST 1 VIEW, AP/PA ONLY Indication: Respiratory distress Single view of the chest shows the heart size to be upper normal. The vascularity is normal. There is prominence of the interstitium with no mass or alveolar infiltrate seen. There is no effusion or pneumothorax. Pacemaker is present. 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 IMPRESSION: Since the 02/18/2020 study there has developed mild interstitial infiltrates. This could be on the basis of mild fluid overload. Viral pneumonitis is a possibility. Recommend follow-up. Dictated by: Dictated on workstation # [id number] Dict: 03/06/20 1124 Trans: 03/06/20 1156 [facility] [id number] Interpreted by: MARTINEZ BAIRD MD Electronically signed by: MARTINEZ BAIRD MD 03/06/20 1156 Reviewed: Reviewed by Me Diagonstic Imaging: CT (Angiogram) Plain Films/CT/US/NM/MRI: chest Comments NAME: LLUVIA GOLDBERG [facility] REC#: [id number] PT STATUS: REG ER : 1940 PHYSICIAN: JEFFERY AYERS MD ADMIT DATE: 03/06/20/ER Draft Date of Exam:03/06/20 CT ANGIO CHEST W PROCEDURE: CT angiography of the chest with contrast. TECHNIQUE: Multiple contiguous axial images were obtained through the chest after uneventful bolus administration of intravenous contrast. 3D reconstructed CTA MIP acquisitions were also performed. Auto Exposure Controls were utilized during the CT exam to meet ALARA standards for radiation dose reduction. INDICATION: Recently taken off of Coumadin. Hypoxic. Patchy right lower lobe infiltrate consistent with pneumonia. No consolidations are seen. There is no effusion or pneumothorax. There is no mediastinal mass or hemorrhage. There is pulmonary embolus in several 3rd and 4th order vessels at the right lung base posteriorly which were not present on the CTA from 12/25/2019. No other pulmonary embolus is evident. There is cardiomegaly with no failure. IMPRESSION: 1. There are small peripheral pulmonary emboli currently limited to 2 vessels in the left lower lobe posteriorly with no other pulmonary embolus evident. This is a change from 12/25/2019. 2. There has also developed a patchy right lower lobe infiltrate since the prior study. Dictated on workstation # [id number] Dict: 03/06/20 1346 Trans: 03/06/20 1352 [facility] [id number] Interpreted by: MARTINEZ BAIRD MD Electronically signed by: Reviewed: Reviewed by Me Departure Communication (Admissions) Time/Spoke to Admitting Phy: 14:00 Impression Primary Impression: Acute respiratory failure with hypoxia Additional Impressions: Pneumonia Qualified Codes: J18.1 - Lobar pneumonia, unspecified organism Sepsis Qualified Codes: A41.9 - Sepsis, unspecified organism; R65.20 - Severe sep sis without septic shock; J96.01 - Acute respiratory failure with hypoxia COVID-19 PUI Surgical wound present Pulmonary emboli Qualified Codes: I26.94 - Multiple subsegmental pulmonary emboli without acute cor pulmonale Disposition: ADMITTED INPATIENT Condition: Stable Admissions Decision to Admit Reason: Admit from ER (General) Decision to Admit/Date: Mar 06, 2020 Time/Decision to Admit Time: 13:00 Departure-Patient Inst. Referrals: JULISSA VASQUEZ MD (PCP/Family) Primary Care Physician JEFFERY AYERS Mar 06, 2020 10:41
[2020-03-06] MEDS ORDERED: RT-ALBUTEROL/IPRATROPIUM 3 ML (DUONEB) VIAL INH ONE (10:45)
[2020-03-06] MEDS ORDERED: CEFEPIME INJECTION 1,000 MG in WATER (STERILE) FOR INJECTION 10 ML IV ONE (10:45)
[2020-03-06 10:49] LABS: BASOPHILS % (AUTO) 0 % (0-10); EOSINOPHILS # (AUTO) 0.3 10^3/uL (0.0-0.3); EOSINOPHILS % (AUTO) 4 % (0-10); HEMATOCRIT 42 % (40-54); HEMOGLOBIN 14.1 G/DL (13.3-17.7); LYMPHOCYTES # (AUTO) 1.7 X 10^3 (1.0-4.0); LYMPHOCYTES % (AUTO) 19 % (12-44); MEAN CORPUSCULAR HEMOGLOBIN 32 PG (25-34); MEAN CORPUSCULAR HGB CONC 33 G/DL (32-36); MEAN CORPUSCULAR VOLUME 97 FL (80-99); MEAN PLATELET VOLUME 10.2 FL (7.4-10.4); MONOCYTES # (AUTO) 0.7 X 10^3 (0.0-1.0); MONOCYTES % (AUTO) 7 % (0-12); NEUTROPHILS # (AUTO) 6.5 X 10^3 (1.8-7.8); NEUTROPHILS % (AUTO) 70 % (42-75); PLATELET COUNT 170 10^3/uL (130-400); RED CELL DISTRIBUTION WIDTH 14.4 % (10.0-14.5); WHITE BLOOD COUNT 9.2 10^3/uL (4.3-11.0)
--- OUTSIDE RECORDS SUMMARY | 2020-03-06 10:50 | XMS REPORT | Continuity of Care Document ---
Author Organization Unknown Address Unknown Phone Unavailable Allergies Active Description Code Type Severity Reaction Onset Reported/Identified Relationship to Patient Clinical Status Yes No Known Drug Allergies [id number] Drug Allergy Unknown N/A 10/17/2009 Yes amiodarone [id number] Drug Allerg y Severe N/A 03/13/2019 Yes lorazepam [id number] Drug Allergy Unknown N/A 03/13/2019 Yes scopolamine [id number] Drug Aller gy Unknown N/A 03/13/2019 Medications There is no data. Problems Date Dx Coded Attending Type Code Diagnosis Diagnosed By RINKU MELENDEZ Ot M54.32 SCIATICA, LEFT SIDE CORNELIO JACOBO DO Ot L98.9 DISORDER OF THE SKIN AND SUBCUTANEOUS TI CORNELIO JACOBO DO Ot Z01.8 12 ENCOUNTER FOR PREPROCEDURAL LABORATORY E CORNELIO JACOBO DO Ot Z20.8 28 CONTACT W AND EXPOSURE TO OTH VIRAL COMM 08/01/1026 MEENA GAO, ELSA Cantor Ot R29 .6 REPEATED FALLS 08/01/1026 ELSA ROBLEDO MD Ot R42 DIZZINESS AND GIDDINESS 08/01/1219 ELSA ROBLEDO MD Ot R29 .6 REPEATED FALLS 08/01/1219 MEENA GAO, ELSA Cantor Ot R42 DIZZINESS AND GIDDINESS 08/01/1346 MARTINEZ CHEN Ot R26.8 9 OTHER ABNORMALITIES [...] 01/05/2011 Ot 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 01/05/2011 Ot 414.8 CHR ISCHEMIC HRT [...] 530.81 ESO PHAGEAL REFLUX 01/05/2011 Ot 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, UNSPECIFIED 01/05/2011 Ot E944.4 [...] W/O SUB FALL NEC 10/14/2011 Ot V06.1 [id number], COMBINED [ 10/09/2012 Ot 263.9 PROT EIN-JUANA MALNUTR NOS 10/09/2012 Ot 272.4 HYPE RLIPIDEMIA NEC/NOS 10/09/2012 Ot 276.1 HYPO SMOLALITY 10/09/2012 Ot 276.8 HYPO POTASSEMIA 10/09/2012 Ot 285.9 ANEM IA NOS 10/09/2012 Ot 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) 10/09/2012 Ot 345.90 EPI LEPSY UNSPEC W/O MENTION INTRACTABLE 10/09/2012 Ot 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 10/09/2012 Ot 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 10/09/2012 Ot 414.8 CHR ISCHEMIC HRT [...] DO Ot 424.0 MITRAL VALVE DISORDER 05/05/2014 JOY DO, RONAK Ot 438.89 OTH LATE EFFECT-CEREBROVASCULAR DISEASE 05/05/2014 JOYDWAYNE STRONG DOI Ot 493.20 CHRONIC OBSTRUCTIVE ASTHMA, NOS 05/05/2014 JOYDWAYNE STRONG DOI Ot 530.81 ESOPHAGEAL REFLUX 05/05/2014 BENITA ESTRADADWAYNEI Ot 585.9 CHRONIC KIDNEY DISEASE, UNSPECIFIED 05/05/2014 JOY DWAYNE ESTRADAI Ot 593.9 RENAL URETERAL DIS NOS 05/05/2014 JOYDWAYNE STRONG DOI Ot 780.2 SYNCOPE AND COLLAPSE 05/05/2014 JOYDWAYNE STRONG DOI Ot 780.4 DIZZINESS AND GIDDINESS 05/05/2014 JOYDWAYNE STRONG DOI Ot 787.91 DIARRHEA 05/05/2014 JOYDWAYNE STRONG DOI Ot 790.5 ABN SERUM ENZY LEVEL NEC 05/05/2014 JOYDWAYNE STRONG DOI Ot 812.00 FX UP END HUMERUS NOS-CL 05/05/2014 JOYDWAYNE STRONG DOI Ot E849.0 ACCIDENT IN HOME 05/05/2014 JOYDWAYNE STRONG DOI Ot E888.9 FALL NOS 05/05/2014 DWAYNE JOY DOI Ot E942.0 ADV EFF CARD RHYTH REGUL 05/05/2014 JOYDWYANE STRONG DOI Ot E942.9 ADV EFF CARDIOVASC NEC 05/05/2014 DWAYNE JOY DOI Ot V15.82 HISTORY OF TOBACCO USE 05/05/2014 DWAYNE JOY DOI Ot V45.02 AUTO IMPLANTABLE CARDIAC DEFIBRILLATOR I 05/05/2014 DWAYNE JOY DOI Ot V45.81 AORTOCORONARY BYPASS 05/25/2014 JOHANNA WARREN MD Ot 244.9 HYPOTHYROIDISM NOS 05/25/2014 JOHANNA WARREN MD Ot 272.4 HYPERLIPIDEMIA NEC/NOS 05/25/2014 JOHANNA WARREN MD Ot 273.8 DIS PLAS PROTEIN MET NEC 05/25/2014 JOHANNA WARREN MD E Ot 276.1 HYPOSMOLALITY 05/25/2014 JOHANNA WARREN MD Ot 276.7 HYPERPOTASSEMIA 05/25/2014 JOHANNA WARREN MD Ot 285.9 ANEMIA NOS 05/25/2014 JOHANNA WARREN MD Ot 311 DEPRESSIVE DISORDER NEC 05/25/2014 JOHANNA AWRREN MD Ot 345.9 0 EPILEPSY UNSPEC W/O MENTION INTRACTABLE 05/25/2014 WARREN MD, JOHANNA E Ot 414.0 1 CORONARY ATHEROSCLEROSIS OF THREE AFFILIATED CORON 05/25/2014 JOHANNA WARREN MD Ot 414.8 CHR ISCHEMIC HRT DIS NEC 05/25/2014 JOHANNA WARREN MD Ot 424.0 MITRAL VALVE DISORDER 05/25/2014 JOHANNA WARREN MD Ot 427.4 1 VENTRICULAR FIBRILLATION 05/25/2014 JOHANNA WARREN MD Ot 433.1 0 CAROTID ARTERY OCCLUSION W [...] WARREN MD Ot V57.8 9 REHABILITATION PROC NEC 07/15/2014 FRANCOIS DO PEARL F Ot V54.11 07/15/2014 FRANCOIS DO PEARL F Ot V57.1 07/20/2014 FRANCOIS DO PEARL F Ot V54.11 07/20/2014 FRANCOIS DO PEARL F Ot V57.1 07/27/2014 FRANCOIS DO PEARL F Ot V54.11 07/27/2014 FRANCOIS DO PEARL F Ot V57.1 07/28/2014 BENITA ESTRADA RONAK Ot V54.11 07/28/2014 BENITA ESTRADA RONAK Ot V57.21 08/02/2014 FRANCOIS DO PEARL F Ot V54.11 08/02/2014 FRANCOIS DO PEARL F Ot V57.1 08/04/2014 BENITA ESTRADA RONAK Ot V54.11 08/04/2014 JOY DO, RONAK Ot V57.21 08/16/2014 HERNAN THIBODEAUX Ot 873.42 OPEN WOUND OF FOREHEAD 08/16/2014 HERNAN THIBODEAUX Ot 910.0 ABRASION HEAD 08/16/2014 HERNAN THIBODEAUX Ot 959.01 HEAD INJURY, NOS 08/16/2014 HERNAN THIBODEAUX Ot E000.8 OTHER EXTERNAL CAUSE STATUS 08/16/2014 HERNAN THIBODEAUX Ot E849.7 ACCID IN RESIDENT INSTIT 08/16/2014 HERNAN THIBODEAUX Ot E888.9 FALL NOS 08/16/2014 HERNAN THIBODEAUX Ot V06.1 [id number], COMBINED [ 08/17/2014 BENITA ESTRADA RONAK Ot V54.11 08/17/2014 JOYTAE ESTRADA RONAK Ot V57.21 09/01/2014 PEARL PARRISH DO Ot V54.11 09/01/2014 FRANCOIS PEARL Ot V57.1 09/07/2014 Ot 272.9 09/07/2014 Ot [...] 09/07/2014 Ot 429.3 09/07/2014 Ot 786.09 09/07/2014 BENITA ESTRADA RONAK Ot 959.6 09/07/2014 KADE GAO FACC, ALI FACP CCDS Ot 397.0 09/07/2014 KADE GAO FACC, ALI FACP CCDS Ot 414.00 09/07/2014 KADE GAO FACC, DANNIELLE FACP CCDS Ot 414.8 09/07/2014 KADE GAO FACC, DANNIELLE FACP CCDS Ot 424.0 09/07/2014 KADE GAO FACC, DANNIELLE FACP CCDS Ot 427.41 09/07/2014 KADE GAO FACC, DANNIELLE FACP CCDS Ot 780.79 09/07/2014 KADE GAO FACC, DANNIELLE FACP CCDS Ot V45.02 09/07/2014 FRANCOIS DO, PEARL F Ot V54.11 09/07/2014 FRANCOIS DO, PEARL F Ot V57.1 09/07/2014 BENITA ESTRADA RONAK Ot V54.11 09/07/2014 BENITA ESTRADA RONAK Ot V57.21 09/22/2014 RONAK JOY DO Ot 038.42 E COLI SEPTICEMIA 09/22/2014 RONAK JOY DO Ot 272.4 HYPERLIPIDEMIA NEC/NOS 09/22/2014 RONAK JOY DO Ot 276.1 HYPOSMOLALITY 09/22/2014 RONAK JOY DO Ot 285.9 ANEMIA NOS 09/22/2014 BENITA ESTRADA RONAK Ot 300.00 ANXIETY STATE NOS 09/22/2014 BENITA ESTRADA RONAK Ot 311 DEPRESSIVE DISORDER NEC 09/22/2014 RONAK JOY DO Ot 345.90 EPILEPSY UNSPEC W/O MENTION INTRACTABLE 09/22/2014 RONAK JOY DO Ot 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 09/22/2014 RONAK JOY DO Ot 414.8 CHR ISCHEMIC HRT DIS NEC 09/22/2014 RONAK JOY DO Ot 424.0 MITRAL VALVE DISORDER 09/22/2014 RONAK [...] Ot 599.0 URIN TRACT INFECTION NOS 09/22/2014 RONAK JOY DO Ot 995.91 SEPSIS 09/22/2014 RONAK JOY DO Ot V45.02 AUTO IMPLANTABLE CARDIAC DEFIBRILLATOR I 09/22/2014 RONAK JOY DO Ot V45.81 AORTOCORONARY BYPASS 09/28/2014 PEARL PARRISH DO Ot V54.11 AFTERCARE HEALING TRAUMATIC FX UPPER ARM 09/28/2014 PEARL PARRISH DO Ot V57.1 PHYSICAL THERAPY NEC 09/28/2014 RONAK JOY DO Ot 038.42 E COLI SEPTICEMIA 09/28/2014 RONAK JOY DO Ot 272.4 HYPERLIPIDEMIA NEC/NOS 09/28/2014 RONAK JOY DO Ot 276.1 HYPOSMOLALITY 09/28/2014 DWAYNE JOY DOI Ot 285.9 ANEMIA NOS 09/28/2014 BENITA ESTRADA RONAK Ot 296.20 DEPRESS DISORDER-UNSPEC 09/28/2014 BENITA ESTRADA RONAK Ot 300.00 ANXIETY STATE NOS 09/28/2014 DWAYNE JOY DOI Ot 311 09/28/2014 RONAK JOY DO Ot 345.90 EPILEPSY UNSPEC W/O MENTION INTRACTABLE 09/28/2014 RONAK JOY DO Ot 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 09/28/2014 DWAYNE JOY DOI Ot 414.8 CHR ISCHEMIC HRT DIS NEC 09/28/2014 DWAYNE JOY DOI Ot 424.0 MITRAL VALVE DISORDER 09/28/2014 BENITA ESTRADA RONAK Ot 428.0 CONGESTIVE HEART FAILURE NOS 09/28/2014 DWAYNE JOY DOI Ot 428.23 ACUTE CHRONIC SYSTOLIC HRT FAILURE 09/28/2014 RONAK JOY DO Ot 433.10 CAROTID ARTERY OCCLUSION W O CEREBRAL IN 09/28/2014 JOY DO, RONAK Ot 496 CHR AIRWAY OBSTRUCT NEC 09/28/2014 JOY DO RONAK Ot 530.81 ESOPHAGEAL REFLUX 09/28/2014 BENITA ESTRADA RONAK Ot 599.0 URIN TRACT INFECTION NOS 09/28/2014 BENITA ESTRADA RONAK Ot 995.91 SEPSIS 09/28/2014 BENITA ESTRADA RONAK Ot V45.02 AUTO IMPLANTABLE CARDIAC DEFIBRILLATOR I 09/28/2014 DWAYNE JOY DOI Ot V45.81 AORTOCORONARY BYPASS 10/02/2014 BENITA ESTRADA RONAK Ot V54.11 10/02/2014 BENITA DO RONAK Ot V57.21 10/07/2014 JOY DO RONAK Ot V54.11 AFTERCARE HEALING TRAUMATIC FX UPPER ARM 10/07/2014 BENITA ESTRADA RONAK Ot V57.21 ENCOUNTER FOR OCCUPATIONAL THERAPY 12/21/2014 BENITA ESTRADA RONAK Ot 728.87 12/21/2014 BENITA ESTRADA RONAK Ot V57.1 12/22/2014 BENITA ESTRADA RONAK Ot 728.87 12/22/2014 JOY DO RONAK Ot V57.1 01/31/2015 JOY DO RONAK Ot 728.87 01/31/2015 JOY DO RONAK Ot V57.1 03/20/2015 JOY DO RONAK Ot 728.87 MUSCLE WEAKNESS (GENERALIZED) 03/20/2015 BENITA DO RONAK Ot V57.1 PHYSICAL THERAPY NEC 04/07/2015 JOY DO RONAK Ot 728.87 04/07/2015 BENITA ESTRADA RONAK Ot V57.1 05/10/2015 DANNIELLE BRAUN MD, FACC, FACP CCDS Ot 272.4 HYPERLIPIDEMIA NEC/NOS 05/10/2015 DANNIELLE BRAUN MD, FACCP CCDS Ot 300.4 DYSTHYMIC DISORDER 05/10/2015 DANNIELLE BRAUN MD, FACC, FACP CCDS Ot 345.90 EPILEPSY UNSPEC W/O MENTION INTRACTABLE 05/10/2015 DANNIELLE BRAUN MD, FACCP CCDS Ot 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 05/10/2015 DANNIELLE BRAUN MD, FACCP CCDS Ot 414.8 CHR ISCHEMIC HRT DIS NEC 05/10/2015 DANNIELLE BRAUN MD, FACCP CCDS Ot 493.90 ASTHMA, UNSPECIFIED 05/10/2015 KADE GAO FACC, DANNIELLE CARDENAS CCDS Ot 530.81 ESOPHAGEAL REFLUX 05/10/2015 KADE GAO FACC, DANNIELLE CARDENAS CCDS Ot V15.82 HISTORY OF TOBACCO USE 05/10/2015 KADE GAO FACC, DANNIELLE SONGP CCDS Ot V45.81 AORTOCORONARY BYPASS 05/10/2015 KADE GAO FACC, DANNIELLE CARDENAS CCDS Ot V45.82 PERCUTANEOUS TRANSLUM CORON ANGIOPLASTY 05/10/2015 KADE GAO FACC, DANNIELLE CARDENAS CCDS Ot V53.32 FITTING ADJUST AUTOMAT IMPLANT CARDIAC 05/10/2015 KADE GAO FACC, DANNIELLE TRUJILLOS Ot V58.69 OT MED,LT,CURRENT USE 11/22/2015 MARY HERRING DO, Ot I1 0 ESSENTIAL (PRIMARY) HYPERTENSION 11/22/2015 [...] STATUS 11/22/2015 MARY HERRING DO, Ot Z79.82 ASSISTED (CURRENT) USE OF ASPIRIN 11/22/2015 MARY HERRING DO, Ot Z79.899 OTHER ASSISTED (CURRENT) DRUG THERAPY 11/23/2015 MARY HERRING DO, [...] 12/29/2015 Ot 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 12/29/2015 Ot 786.09 RES PIRATORY ABNORM [...] 427.41 VENTRICULAR FIBRILLATION 12/29/2015 KADE GAO FACC, ALI FACP CCDS Ot 780.79 OT MALAISE FATIGUE 12/29/2015 KADE GAO FACC, ALI FACP CCDS Ot V45.02 AUTO IMPLANTABLE CARDIAC DEFIBRILLATOR I 01/06/2016 GRECIA FOSTER DIRECTOR OF SECURITY Ot N50 .8 OTHER SPECIFIED DISORDERS OF MALE GENITA 01/09/2016 GRECIA FOSTER DIRECTOR OF SECURITY Ot N50 .8 OTHER SPECIFIED DISORDERS OF MALE GENITA 01/09/2016 GRECIA FOSTER DIRECTOR OF SECURITY Ot N43 .3 HYDROCELE, UNSPECIFIED 01/09/2016 GRECIA FOSTER DIRECTOR OF SECURITY Ot N45 .1 EPIDIDYMITIS 01/10/2016 GRECIA FOSTER DIRECTOR OF SECURITY Ot N43 .3 HYDROCELE, UNSPECIFIED 01/10/2016 GRECIA FOSTER DIRECTOR OF SECURITY Ot N45 .1 EPIDIDYMITIS 01/19/2016 KADE GAO FACC, ALI FACP CCDS Ot 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 01/19/2016 KADE GAO FACC, DANNIELLE FACP CCDS Ot I25.5 ISCHEMIC CARDIOMYOPATHY 01/26/2016 GERCIA FOSTER DIRECTOR OF SECURITY Ot N43 .3 HYDROCELE, UNSPECIFIED 01/26/2016 GRECIA FOSTER DIRECTOR OF SECURITY Ot N45 .1 EPIDIDYMITIS 06/18/2016 Ot 715.95 OST EOARTHROS NOS- PELVIS 06/18/2016 Ot 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 06/18/2016 Ot 786.09 RES PIRATORY ABNORM NEC 06/18/2016 Ot V45.81 AOR TOCORONARY BYPASS 06/18/2016 Ot V45.82 PER CUTANEOUS TRANSLUM CORON ANGIOPLASTY 06/18/2016 Ot 414.8 CHR ISCHEMIC HRT DIS NEC 06/18/2016 Ot 429.3 CARD IOMEGALY 06/18/2016 Ot 786.09 RES PIRATORY ABNORM NEC 06/18/2016 RONAK JOY DO Ot 959.6 HIP THIGH INJURY NOS 06/18/2016 KADE GAO FACC, DANNIELLE FACP CCDS Ot 397.0 TRICUSPID VALVE DISEASE 06/18/2016 KADE GAO FACC, DANNIELLE FACP CCDS Ot 414.00 CORON ATHEROSCLER NOS TYPE VESSEL, NATIV 06/18/2016 KADE GAO FACC, DANNIELLE FACP CCDS Ot 414.8 CHR ISCHEMIC HRT DIS NEC 06/18/2016 KADE GAO FACC, ALI FACP CCDS Ot 424.0 MITRAL VALVE DISORDER 06/18/2016 KADE GAO FACC, DANNIELLE FACP CCDS Ot 427.41 VENTRICULAR FIBRILLATION 06/18/2016 KADE GAO FACC, DANNIELLE FACP CCDS Ot 780.79 OTH MALAISE FATIGUE 06/18/2016 DANNIELLE BRAUN MD, FACC FACP CCDS Ot V45.02 AUTO IMPLANTABLE CARDIAC DEFIBRILLATOR I 06/18/2016 DANNIELLE BRAUN MD, FACC FACP CCDS Ot 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 06/18/2016 KADE GAO FACC, DANNIELLE FACP CCDS Ot I25.5 ISCHEMIC CARDIOMYOPATHY 06/18/2016 GRECIA FOSTER DIRECTOR OF SECURITY Ot N43 .3 HYDROCELE, UNSPECIFIED 06/18/2016 GRECIA FOSTER DIRECTOR OF SECURITY Ot N45 .1 EPIDIDYMITIS 07/19/2016 CARLI MELENDEZFER M Ot M54.32 SCIATICA, LEFT SIDE 08/01/2016 JONNATHAN CHAMBERS, RINKU Gayle Ot M54.32 SCIATICA, LEFT SIDE 08/14/2016 JONNATHAN CHAMBERS RINKU Gayle Ot M54.32 SCIATICA, LEFT SIDE 08/16/2016 KADE SONGC, ALI FACP CCDS Ot G47.30 SLEEP APNEA, UNSPECIFIED 08/16/2016 KADE GAO FACC, ALI FACP CCDS Ot 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 08/16/2016 KADE GAO FACC, ALI FACP CCDS Ot I25.5 ISCHEMIC CARDIOMYOPATHY 08/16/2016 KADE GAO FACC, ALI FACP CCDS [...] CCDS Ot 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 08/21/2016 KADE GAO FACC, ALI FACP [...] CCDS Ot 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 09/11/2016 KADE GAO FACC, ALI FACP [...] CCDS Ot 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 01/30/2017 KADE GAO FACC, ALI FACP [...] CCDS Ot 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 02/01/2017 KADE GAO FACC, ALI FACP [...] CCDS Ot 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 02/01/2017 KADE GAO FACC, ALI FACP [...] CCDS Ot 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 02/01/2017 KADE GAO FACC, ALI FACP [...] CCDS Ot 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 02/01/2017 KADE GAO FACC, ALI FACP [...] CCDS Ot 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 02/01/2017 KADE GAO FACC, ALI FACP [...] CCDS Ot 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 02/01/2017 KADE GAO FACC, ALI FACP CCDS Ot I25.5 ISCHEMIC CARDIOMYOPATHY 02/01/2017 KADE GAO FACC, ALI FACP CCDS Ot I65.23 OCCLUSION AND STENOSIS OF [place] 02/01/2017 KADE AGO FACC, ALI FACP CCDS Ot I70.0 ATHEROSCLEROSIS OF [place] 02/01/2017 KADE GAO FACC, ALI FACP CCDS Ot I73.9 PERIPHERAL VASCULAR DISEASE, UNSPECIFIED 02/01/2017 KADE GAO FACC, ALI FACP CCDS Ot 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 02/01/2017 KADE GAO FACC, ALI FACP CCDS Ot Z95.810 PRESENCE OF AUTOMATIC (IMPLANTABLE) CARD 02/19/2017 KADE GAO FACC, ALI FACP CCDS Ot 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 02/19/2017 KADE GAO FACC, ALI FACP CCDS Ot I25.5 ISCHEMIC CARDIOMYOPATHY 02/19/2017 KADE GAO FACC, ALI FACP CCDS Ot I65.23 OCCLUSION AND STENOSIS OF [place] 02/19/2017 KADE GAO FACC, ALI FACP CCDS Ot I70.0 ATHEROSCLEROSIS OF [place] 02/19/2017 KADE GAO [facility], [facility] CCDS Ot I73.9 PERIPHERAL VASCULAR DISEASE, UNSPECIFIED 02/19/2017 KADE GAO [facility], [facility] CCDS Ot 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 02/19/2017 KADE GAO [facility], [facility] CCDS Ot Z95.810 PRESENCE OF AUTOMATIC (IMPLANTABLE) CARD 02/22/2017 CATHIENDON ELSA ESTRADA Ot M48.06 SPINAL STENOSIS, LUMBAR REGION 02/22/2017 HEARNDON DOELSA Ot R26.89 OTHER ABNORMALITIES OF GAIT AND MOBILITY 04/14/2017 HEARNDON DOELSA Ot M48.06 SPINAL STENOSIS, LUMBAR REGION 04/14/2017 CATHIENDON DOELSA Ot R26.89 OTHER ABNORMALITIES OF GAIT AND MOBILITY 04/24/2017 CATHIENDON DOELSA Ot M48.06 SPINAL STENOSIS, LUMBAR REGION 04/24/2017 CATHIENDON DOELSA Ot R26.89 OTHER ABNORMALITIES OF GAIT AND MOBILITY 04/29/2017 CATHIENDON DOELSA Ot M48.06 SPINAL STENOSIS, LUMBAR REGION 04/29/2017 HEARNDON DOELSA Ot R26.89 OTHER ABNORMALITIES OF GAIT AND MOBILITY 05/24/2017 HEARNDON DOELSA Ot M48.06 SPINAL STENOSIS, LUMBAR REGION 05/24/2017 HEARNDON DOELSA Ot R26.89 OTHER ABNORMALITIES OF GAIT AND MOBILITY 06/01/2017 HEARNDON DOELSA Ot M48.06 SPINAL STENOSIS, LUMBAR REGION 06/01/2017 HEARNDON DOELSA Ot R26.89 OTHER ABNORMALITIES OF GAIT AND MOBILITY 06/08/2017 HEARNDON DOELSA Ot M48.06 SPINAL STENOSIS, LUMBAR REGION 06/08/2017 HEARNDON DOELSA Ot R26.89 OTHER ABNORMALITIES OF GAIT AND MOBILITY 07/03/2017 HEARNDON DOELSA Ot M48.06 SPINAL STENOSIS, LUMBAR REGION * DO NOT 07/03/2017 CATHIENDON DOELSA Ot R26.89 OTHER ABNORMALITIES OF GAIT AND MOBILITY 07/04/2017 HEARNDON DOELSA Ot M48.061 SPINAL STENOSIS, LUMBAR REGION WITHOUT N 07/04/2017 HEARNDON DOELSA Ot R26.89 OTHER ABNORMALITIES OF GAIT AND MOBILITY 07/23/2017 IRASEMA ESTRADA ELSA Liss Ot M48.061 SPINAL STENOSIS, LUMBAR REGION WITHOUT N 07/23/2017 MONTYTAY DO ELSA Liss Ot R26.89 OTHER ABNORMALITIES OF GAIT AND [...] CORON ATHEROSCLER NOS TYPE VESSEL, NATIV 04/22/2018 DANNIELLE BRAUN MD, FACC FACP CCDS Ot 414.8 CHR ISCHEMIC HRT DIS NEC 04/22/2018 KADE GAO FACC, DANNIELLE FACP CCDS Ot 424.0 MITRAL VALVE DISORDER 04/22/2018 KADE GAO FACC, DANNIELLE FACP CCDS Ot 427.41 VENTRICULAR FIBRILLATION 04/22/2018 DANNIELLE BRAUN MD, FACC FACP CCDS Ot 780.79 OTH MALAISE FATIGUE 04/22/2018 DANNIELLE BRAUN MD, FACC FACP CCDS Ot V45.02 AUTO IMPLANTABLE CARDIAC DEFIBRILLATOR I 04/22/2018 DANNIELLE BRAUN MD, FACC FACP CCDS Ot 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 04/22/2018 KADE MD FACC, ALI FACP CCDS Ot I25.5 ISCHEMIC CARDIOMYOPATHY 04/22/2018 GRECIA FOSTER DIRECTOR OF SECURITY Ot N43 .3 HYDROCELE, UNSPECIFIED 04/22/2018 GRECIA FOSTER DIRECTOR OF SECURITY Ot N45 .1 EPIDIDYMITIS 04/22/2018 KADE GAO FACC, ALI FACP CCDS Ot G47.30 SLEEP APNEA, UNSPECIFIED 04/22/2018 KADE GAO FACC, ALI FACP CCDS Ot 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 04/22/2018 KADE GAO FACC, ALI FACP CCDS Ot I25.5 ISCHEMIC CARDIOMYOPATHY 04/22/2018 KADE GAO FACC, ALI FACP CCDS Ot I65.23 OCCLUSION AND STENOSIS OF [place] 04/22/2018 KADE GAO FACC, ALI FACP CCDS Ot R53.1 WEAKNESS 04/22/2018 KADE GAO FACC, ALI FACP CCDS Ot Z95.810 PRESENCE OF AUTOMATIC (IMPLANTABLE) CARD 04/22/2018 KADE GAO [facility], ALI FACP CCDS Ot 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 04/22/2018 KADE GAO FACC, ALI FACP CCDS Ot I25.5 ISCHEMIC CARDIOMYOPATHY 04/22/2018 KADE GAO FACC, ALI FACP CCDS Ot I65.23 OCCLUSION AND STENOSIS OF [place] 04/22/2018 KADE GAO [facility], ALI FACP CCDS Ot I70.0 ATHEROSCLEROSIS OF [place] 04/22/2018 KADE GAO FACC, ALI FACP CCDS Ot I73.9 PERIPHERAL VASCULAR DISEASE, UNSPECIFIED 04/22/2018 KADE GAO FAC, ALI FACP CCDS Ot 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 04/22/2018 KADE GAO [facility], ALI FACP CCDS Ot Z95.810 PRESENCE OF [...] Cantor Ot R29 .6 REPEATED FALLS 09/03/2018 MEENA GAO, ELSA Cantor Ot R42 DIZZINESS AND GIDDINESS 09/03/2018 JOY [...] CCDS Ot 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 09/03/2018 KADE GAO FACC, DANNIELLE FACP CCDS Ot I25.5 ISCHEMIC CARDIOMYOPATHY 09/03/2018 GRECIA FOSTER DIRECTOR OF SECURITY Ot N43 .3 HYDROCELE, UNSPECIFIED 09/03/2018 GRECIA FOSTER DIRECTOR OF SECURITY Ot N45 .1 EPIDIDYMITIS 09/03/2018 KADE GAO [facility], ALI FACP CCDS Ot G47.30 SLEEP APNEA, UNSPECIFIED 09/03/2018 KADE GAO FAC, ALI FACP CCDS Ot 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 09/03/2018 KADE GAO FAC, ALI FACP CCDS Ot I25.5 ISCHEMIC CARDIOMYOPATHY 09/03/2018 KADE GAO [facility], ALI FACP CCDS Ot I65.23 OCCLUSION AND STENOSIS OF [place] 09/03/2018 KADE GAO [facility], ALI FACP CCDS Ot R53.1 WEAKNESS 09/03/2018 KADE GAO [facility], ALI FACP CCDS Ot Z95.810 PRESENCE OF AUTOMATIC (IMPLANTABLE) CARD 09/03/2018 KADE GAO [facility], ALI FACP CCDS Ot 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 09/03/2018 KADE GAO [facility], ALI FACP CCDS Ot I25.5 ISCHEMIC CARDIOMYOPATHY 09/03/2018 KADE GAO [facility], ALI FACP CCDS Ot I65.23 OCCLUSION AND STENOSIS OF [place] 09/03/2018 KADE GAO [facility], ALI FACP CCDS Ot I70.0 ATHEROSCLEROSIS OF [place] 09/03/2018 KADE GAO [facility], ALI FACP CCDS Ot I73.9 PERIPHERAL VASCULAR DISEASE, UNSPECIFIED 09/03/2018 KADE GAO [facility], ALI FACP CCDS Ot 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 09/03/2018 KADE GAO [facility], ALI FACP CCDS Ot Z95.810 PRESENCE OF AUTOMATIC (IMPLANTABLE) CARD 09/03/2018 RONAK JOY DO Ot I63.9 CEREBRAL INFARCTION, UNSPECIFIED 09/03/2018 ELSA ROBLEDO MD Ot R29 .6 [...] CCDS Ot 427.41 VENTRICULAR FIBRILLATION 09/03/2018 KADE AGO FACC, DANNIELLE FACP CCDS Ot 780.79 OTH MALAISE FATIGUE 09/03/2018 KADE GAO FACC, DANNIELLE FACP CCDS Ot V45.02 AUTO IMPLANTABLE CARDIAC DEFIBRILLATOR I 09/03/2018 KADE GAO FACC, DANNIELLE FACP CCDS Ot 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 09/03/2018 KADE GAO FACC, DANNIELLE FACP CCDS Ot I25.5 ISCHEMIC CARDIOMYOPATHY 09/03/2018 GRECIA FOSTER DIRECTOR OF SECURITY Ot N43 .3 HYDROCELE, UNSPECIFIED 09/03/2018 GRECIA FOSTER DIRECTOR OF SECURITY Ot N45 .1 EPIDIDYMITIS 09/03/2018 KADE GAO FACC, DANNIELLE FACP CCDS Ot G47.30 SLEEP APNEA, UNSPECIFIED 09/03/2018 KADE GAO FACC, ALI FACP CCDS Ot 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 09/03/2018 KADE GAO FACC, DANNIELLE FACP [...] CCDS Ot 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 09/03/2018 KADE GAO FACC, DANNIELLE FACP CCDS Ot I25.5 ISCHEMIC CARDIOMYOPATHY 09/03/2018 KADE GAO FACC, ALI FACP CCDS Ot I65.23 OCCLUSION AND STENOSIS OF [place] 09/03/2018 KADE GAO [facility], ALI FACP CCDS Ot I70.0 ATHEROSCLEROSIS OF [place] 09/03/2018 KADE GAO [facility], ALI FACP CCDS Ot I73.9 PERIPHERAL VASCULAR DISEASE, UNSPECIFIED 09/03/2018 KADE GAO [facility], ALI FACP CCDS Ot 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 09/03/2018 KADE GAO [facility], ALI FACP CCDS Ot Z95.810 PRESENCE OF AUTOMATIC (IMPLANTABLE) CARD 09/03/2018 RONAK JOY DO Ot I63.9 CEREBRAL INFARCTION, UNSPECIFIED 09/03/2018 MEENA GAO, ELSA P Ot R29 .6 REPEATED FALLS 09/03/2018 MEENA GAO, ELSA P Ot R42 DIZZINESS AND GIDDINESS 09/03/2018 MEENA GAO, ELSA P Ot R29 .6 REPEATED FALLS 09/03/2018 ELSA ROBLEDO MD P Ot R42 DIZZINESS AND GIDDINESS 09/05/2018 MEENA GAO, ELSA P Ot R29 .6 REPEATED FALLS 09/05/2018 MEENA GAO, ELSA P Ot R42 DIZZINESS AND GIDDINESS 09/10/2018 LLUVIA ALMONTE MD Ot Z29. 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 01/22/2019 SAMIRARYA SANDOVALHER Leija WEB APPLICATIONS DEVELOPER Ot I34.0 NONRHEUMATIC MITRAL (VALVE) INSUFFICIENC 01/22/2019 CARIE PENN WEB APPLICATIONS DEVELOPER Ot R06.09 OTHER FORMS OF DYSPNEA 02/18/2019 [...] OTH MALAISE FATIGUE 03/12/2019 KADE GAO FACC, DANNIELLE FACP CCDS Ot V45.02 AUTO IMPLANTABLE CARDIAC DEFIBRILLATOR I 03/12/2019 KADE GAO FACC, ALI FACP CCDS Ot 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 03/12/2019 KADE GAO FACC, DANNIELLE FACP CCDS Ot I25.5 ISCHEMIC CARDIOMYOPATHY 03/12/2019 GRECIA FOSTER DIRECTOR OF SECURITY Ot N43 .3 HYDROCELE, UNSPECIFIED 03/12/2019 GRECIA FOSTER DIRECTOR OF SECURITY Ot N45 .1 EPIDIDYMITIS 03/12/2019 KADE GAO FACC, ALI FACP CCDS Ot G47.30 SLEEP APNEA, UNSPECIFIED 03/12/2019 KADE GAO FACC, ALI FACP CCDS Ot 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 03/12/2019 KADE GAO FACC, ALI FACP CCDS Ot I25.5 ISCHEMIC CARDIOMYOPATHY 03/12/2019 KADE GAO FACC, ALI FACP CCDS Ot I65.23 OCCLUSION AND STENOSIS OF [place] 03/12/2019 KADE GAO FACC, ALI FACP CCDS Ot R53.1 WEAKNESS 03/12/2019 KADE GAO FACC, ALI FACP CCDS Ot Z95.810 PRESENCE OF AUTOMATIC (IMPLANTABLE) CARD 03/12/2019 KADE GAO FAC, ALI FACP CCDS Ot 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 03/12/2019 KADE GAO FAC, ALI FACP CCDS Ot I25.5 ISCHEMIC CARDIOMYOPATHY 03/12/2019 KADE GAO FAC, ALI FACP CCDS Ot I65.23 OCCLUSION AND STENOSIS OF [place] 03/12/2019 KADE GAO FAC, ALI FACP CCDS Ot I70.0 ATHEROSCLEROSIS OF [place] 03/12/2019 KADE GAO FAC, ALI FACP CCDS Ot I73.9 PERIPHERAL VASCULAR DISEASE, UNSPECIFIED 03/12/2019 KADE GAO FAC, ALI FACP CCDS Ot 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 03/12/2019 KADE GAO FAC, ALI FACP CCDS Ot Z95.810 PRESENCE OF AUTOMATIC (IMPLANTABLE) CARD 03/12/2019 RONAK JOY DO Ot I63.9 CEREBRAL INFARCTION, UNSPECIFIED 03/12/2019 CARIE PENN WEB APPLICATIONS DEVELOPER Ot 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 03/12/2019 CARIE PENN WEB APPLICATIONS DEVELOPER Ot I34.0 NONRHEUMATIC MITRAL (VALVE) INSUFFICIENC 03/12/2019 CARIE PENN WEB APPLICATIONS DEVELOPER Ot R06.09 OTHER FORMS OF DYSPNEA 03/13/2019 [...] JEFFERY AYERS MD Ot Y92.003 BEDROOM OF [facility] (PRIVATE) R 03/13/2019 JEFFERY AYERS MD Ot Z79. 82 TALLIER (CURRENT) USE OF ASPIRIN 03/13/2019 JEFFERY AYERS MD Ot Z82. 49 FAMILY HX OF ISCHEM HEART DIS AND OTH DI 03/13/2019 JEFFERY AYERS MD, Ot Z86. 73 PRSNL HX OF TIA (TIA), AND CEREB INFRC W 03/13/2019 JEFFERY AYERS MD, Ot Z88. 8 ALLERGY STATUS TO [facility] DRUG/MEDS/BIOL SUB 03/13/2019 JEFFERY AYERS MD Ot Z95. 1 PRESENCE OF AORTOCORONARY BYPASS GRAFT 03/18/2019 JEFFERY AYERS MD Ot F32. 9 MAJOR DEPRESSIVE DISORDER, SINGLE EPISOD 03/18/2019 JEFFERY AYERS MD Ot G40.909 EPILEPSY, UNSP, NOT INTRACTABLE, WITHOUT 03/18/2019 JEFFERY AYERS MD Ot I10 ESSENTIAL (PRIMARY) HYPERTENSION 03/18/2019 JEFFERY AYERS MD Ot J44. 9 CHRONIC [...] JEFFERY AYERS MD Ot Y92.003 BEDROOM OF [facility] (PRIVATE) R 03/18/2019 JEFFERY AYERS MD, Ot Z79. 82 TALLIER (CURRENT) USE OF ASPIRIN 03/18/2019 JEFFERY AYERS MD, Ot Z82. 49 FAMILY HX OF ISCHEM HEART DIS AND OTH DI 03/18/2019 JEFFERY AYERS MD, Ot Z86. 73 PRSNL HX OF TIA (TIA), AND CEREB INFRC W 03/18/2019 JEFFERY AYERS MD, Ot Z88. 8 ALLERGY STATUS TO [facility] DRUG/MEDS/BIOL SUB 03/18/2019 JEFFERY AYERS MD, Ot Z95. 1 PRESENCE OF AORTOCORONARY [...] FOR IMMUNIZATION 03/28/2019 HERNAN THIBODEAUX Ot Z79.82 TALLIER (CURRENT) USE OF ASPIRIN 03/28/2019 HERNAN THIBODEAUX Ot Z82.49 FAMILY HX OF ISCHEM HEART DIS AND OTH DI 03/28/2019 JERROD PA, HERNAN L Ot Z85.828 PERSONAL HISTORY OF OTHER MALIGNANT NEOP 03/28/2019 HERNAN THIBODEAUX Ot Z86.73 PRSNL HX OF TIA (TIA), AND CEREB INFRC W 03/28/2019 HERNAN THIBODEAUX Ot Z87.891 PERSONAL HISTORY OF NICOTINE DEPENDENCE 03/28/2019 HERNAN THIBODEAUX Ot Z88.8 ALLERGY STATUS TO [...] FOR IMMUNIZATION 04/01/2019 HERNAN THIBODEAUX Ot Z79.82 ASSISTED (CURRENT) USE OF ASPIRIN 04/01/2019 HERNAN THIBODEAUX [...] 8 ENCOUNTER FOR OTHER SPECIFIED PROPHYLACT 04/22/2019 ELSA GUDINO MD Ot I96 GANGRENE, NOT ELSEWHERE CLASSIFIED 04/22/2019 ELSA GUDINO MD, Ot S51.812A LACERATION WITHOUT FOREIGN BODY OF LEFT 04/24/2019 LLUVIA ALMONTE MD Ot Z29. 8 ENCOUNTER FOR OTHER SPECIFIED PROPHYLACT 05/24/2019 LLUVIA ALMONTE MD Ot Z29. 8 ENCOUNTER FOR OTHER SPECIFIED PROPHYLACT 05/25/2019 LLUVIA ALMONTE MD Ot Z29. 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 06/03/2019 KADE GAO FACC, ALI FACP CCDS Ot I25.5 ISCHEMIC CARDIOMYOPATHY 06/03/2019 KADE GAO FACC, ALI FACP CCDS Ot I65.23 OCCLUSION AND STENOSIS OF [place] 06/03/2019 KADE GAO FACC, ALI FACP CCDS Ot R53.1 WEAKNESS 06/03/2019 KADE GAO FACC, ALI FACP CCDS Ot Z95.810 PRESENCE OF AUTOMATIC (IMPLANTABLE) CARD 06/03/2019 KADE GAO FAC, ALI FACP CCDS Ot 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 06/03/2019 KADE GAO FAC, ALI FACP CCDS Ot I25.5 ISCHEMIC CARDIOMYOPATHY 06/03/2019 KADE GAO FAC, ALI FACP CCDS Ot I65.23 OCCLUSION AND STENOSIS OF [place] 06/03/2019 KADE GAO FAC, ALI FACP CCDS Ot I70.0 ATHEROSCLEROSIS OF [place] 06/03/2019 KADE GAO FAC, ALI FACP CCDS Ot I73.9 PERIPHERAL VASCULAR DISEASE, UNSPECIFIED 06/03/2019 KADE GAO [facility], ALI FACP CCDS Ot 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 06/03/2019 KADE GAO FACC, ALI FACP CCDS Ot Z95.810 PRESENCE OF AUTOMATIC (IMPLANTABLE) CARD 06/03/2019 RONAK JOY DO Ot I63.9 CEREBRAL INFARCTION, UNSPECIFIED 06/03/2019 CARIE PENN WEB APPLICATIONS DEVELOPER Ot 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 06/03/2019 CARIE PENN WEB APPLICATIONS DEVELOPER Ot I34.0 NONRHEUMATIC MITRAL (VALVE) INSUFFICIENC 06/03/2019 CARIE PENN WEB APPLICATIONS DEVELOPER Ot R06.09 OTHER FORMS OF DYSPNEA 06/03/2019 ELSA GUDINO MD Ot I25 .2 OLD MYOCARDIAL INFARCTION 06/03/2019 ELSA GUDINO MD Ot I96 GANGRENE, NOT ELSEWHERE CLASSIFIED 06/03/2019 ELSA GUDINO MD Ot S51.812A LACERATION WITHOUT FOREIGN BODY OF LEFT 06/03/2019 SHAHAB GAO ELSA Kaur Ot Z86.79 PERSONAL HISTORY OF OTHER DISEASES OF TH 06/03/2019 SHAHAB GAO ELSA Natasha Ot I96 GANGRENE, NOT ELSEWHERE CLASSIFIED 06/03/2019 ELSA GUDINO MD Ot S51.812A LACERATION WITHOUT FOREIGN BODY OF LEFT 06/03/2019 JOYTAE ESTRADA RONAK Ot R26.81 UNSTEADINESS ON FEET 06/03/2019 JOYTAE ESTRADA RONAK Ot Z91.81 HISTORY OF FALLING 06/03/2019 JOY DO, RONAK Ot R53.1 WEAKNESS 06/05/2019 KADE SONGC, ALI FACP CCDS Ot 397.0 [...] CCDS Ot 427.41 VENTRICULAR FIBRILLATION 06/05/2019 KADE SONGC, ALI FACP CCDS Ot 780.79 OTH MALAISE FATIGUE 06/05/2019 KADE GAO FACC, ALI FACP CCDS Ot V45.02 AUTO IMPLANTABLE CARDIAC DEFIBRILLATOR I 06/05/2019 KADE GAO FACC, ALI FACP CCDS Ot 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 06/05/2019 KADE GAO FACC, ALI FACP CCDS Ot I25.5 ISCHEMIC CARDIOMYOPATHY 06/05/2019 GRECIA FOSTER DIRECTOR OF SECURITY Ot N43 .3 HYDROCELE, UNSPECIFIED 06/05/2019 GRECIA FOSTER DIRECTOR OF SECURITY Ot N45 .1 EPIDIDYMITIS 06/05/2019 KADE GAO FACC, ALI FACP CCDS Ot G47.30 SLEEP APNEA, UNSPECIFIED 06/05/2019 KADE GAO FACC, ALI FACP CCDS Ot 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 06/05/2019 KADE GAO FACC, ALI FACP CCDS Ot I25.5 ISCHEMIC CARDIOMYOPATHY 06/05/2019 KADE GAO FACC, ALI FACP CCDS Ot I65.23 OCCLUSION AND STENOSIS OF [place] 06/05/2019 KADE GAO FAC, ALI FACP CCDS Ot R53.1 WEAKNESS 06/05/2019 KADE GAO FAC, ALI FACP CCDS Ot Z95.810 PRESENCE OF AUTOMATIC (IMPLANTABLE) CARD 06/05/2019 KADE GAO FACC, ALI FACP CCDS Ot 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 06/05/2019 KADE GAO FAC, ALI FACP CCDS Ot I25.5 ISCHEMIC CARDIOMYOPATHY 06/05/2019 KADE GAO FAC, ALI FACP CCDS Ot I65.23 OCCLUSION AND STENOSIS OF [place] 06/05/2019 KADE GAO FAC, ALI FACP CCDS Ot I70.0 ATHEROSCLEROSIS OF [place] 06/05/2019 KADE GAO [facility], ALI FACP CCDS Ot I73.9 PERIPHERAL VASCULAR DISEASE, UNSPECIFIED 06/05/2019 KADE GAO FAC, ALI FACP CCDS Ot 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 06/05/2019 KADE GAO [facility], ALI FACP CCDS Ot Z95.810 PRESENCE OF AUTOMATIC (IMPLANTABLE) CARD 06/05/2019 DWAYNE JOY DOI Ot I63.9 CEREBRAL INFARCTION, UNSPECIFIED 06/05/2019 CARIE PENN WEB APPLICATIONS DEVELOPER Ot 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 06/05/2019 CARIE PENN WEB APPLICATIONS DEVELOPER Ot I34.0 NONRHEUMATIC MITRAL (VALVE) INSUFFICIENC 06/05/2019 CARIE PENN WEB APPLICATIONS DEVELOPER Ot R06.09 OTHER FORMS OF DYSPNEA 06/05/2019 [...] LACERATION WITHOUT FOREIGN BODY OF LEFT 06/05/2019 RONAK JOY DO Ot R26.81 UNSTEADINESS ON FEET 06/05/2019 JOY DO, RONAK Ot Z91.81 HISTORY OF FALLING 06/05/2019 BENITA DO RONAK Ot R53.1 WEAKNESS 06/15/2019 BENITA ESTRADA RONAK Ot R26.81 UNSTEADINESS ON FEET 06/15/2019 BENITA ESTRADA RONAK Ot Z91.81 HISTORY OF FALLING 06/22/2019 BENITA ESTRADA RONAK Ot G93.89 OTHER SPECIFIED DISORDERS OF BRAIN 06/22/2019 BENITA DO RONAK Ot I63.9 CEREBRAL INFARCTION, UNSPECIFIED 06/22/2019 JOY DO, RONAK Ot I67.82 CEREBRAL ISCHEMIA 06/26/2019 SUZY GAO, LLUVIA Major Ot Z29. 8 ENCOUNTER FOR OTHER SPECIFIED PROPHYLACT 07/21/2019 BENITA DO RONAK Ot R26.81 UNSTEADINESS ON FEET 07/21/2019 BENITA ESTRADA RONAK Ot Z91.81 HISTORY OF FALLING 08/11/2019 BENITA ESTRADA RONAK Ot R26.81 UNSTEADINESS ON FEET 08/11/2019 BENITA ESTRADA RONAK Ot Z91.81 HISTORY OF FALLING 08/12/2019 JULISSA VASQUEZ MD Ot R26.8 1 UNSTEADINESS ON FEET 08/12/2019 JULISSA VASQUEZ MD Ot Z91.8 1 HISTORY OF FALLING 08/13/2019 KADE GAO FACC, DANNIELLE FACP CCDS Ot 397.0 TRICUSPID VALVE DISEASE 08/13/2019 KADE GAO FACC, ALI FACP CCDS Ot 414.00 CORON ATHEROSCLER NOS TYPE VESSEL, NATIV 08/13/2019 KADE GAO FACC, ALI FACP CCDS Ot 414.8 CHR ISCHEMIC HRT DIS NEC 08/13/2019 KADE GAO FACC, DANNIELLE FACP CCDS Ot 424.0 MITRAL VALVE DISORDER 08/13/2019 KADE GAO FACC, DANNIELLE FACP CCDS Ot 427.41 VENTRICULAR FIBRILLATION 08/13/2019 KADE GAO FACC, DANNIELLE FACP CCDS Ot 780.79 OTH MALAISE FATIGUE 08/13/2019 KADE GAO FACC, DANNIELLE FACP CCDS Ot V45.02 AUTO IMPLANTABLE CARDIAC DEFIBRILLATOR I 08/13/2019 KADE GAO FACC, DANNIELLE FACP CCDS Ot 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 08/13/2019 KADE GAO FACC, ALI FACP CCDS Ot I25.5 ISCHEMIC CARDIOMYOPATHY 08/13/2019 GRECIA FOSTER DIRECTOR OF SECURITY Ot N43 .3 HYDROCELE, UNSPECIFIED 08/13/2019 FOSTERDAVIDJack Leija DIRECTOR OF SECURITY Ot N45 .1 EPIDIDYMITIS 08/13/2019 KADE GAO FAC, ALI FACP CCDS Ot G47.30 SLEEP APNEA, UNSPECIFIED 08/13/2019 KADE GAO FACC, ALI FACP CCDS Ot 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 08/13/2019 KADE GAO FACC, ALI FACP CCDS Ot I25.5 ISCHEMIC CARDIOMYOPATHY 08/13/2019 KADE GAO FAC, ALI FACP CCDS Ot I65.23 OCCLUSION AND STENOSIS OF [place] 08/13/2019 KADE GAO [facility], ALI FACP CCDS Ot R53.1 WEAKNESS 08/13/2019 KADE GAO FAC, ALI FACP CCDS Ot Z95.810 PRESENCE OF AUTOMATIC (IMPLANTABLE) CARD 08/13/2019 KADE GAO [facility], ALI FACP CCDS Ot 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 08/13/2019 KADE GAO [facility], ALI FACP CCDS Ot I25.5 ISCHEMIC CARDIOMYOPATHY 08/13/2019 KADE GAO FAC, ALI FACP CCDS Ot I65.23 OCCLUSION AND STENOSIS OF [place] 08/13/2019 KADE GAO [facility], ALI FACP CCDS Ot I70.0 ATHEROSCLEROSIS OF [place] 08/13/2019 KADE GAO FAC, ALI FACP CCDS Ot I73.9 PERIPHERAL VASCULAR DISEASE, UNSPECIFIED 08/13/2019 KADE GAO [facility], ALI FACP CCDS Ot 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 08/13/2019 KADE GAO [facility], ALI FACP CCDS Ot Z95.810 PRESENCE OF AUTOMATIC (IMPLANTABLE) CARD 08/13/2019 RONAK JOY DO Ot I63.9 CEREBRAL INFARCTION, UNSPECIFIED 08/13/2019 CARIE PENN WEB APPLICATIONS DEVELOPER Ot 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 08/13/2019 CARIE PENN WEB APPLICATIONS DEVELOPER Ot I34.0 NONRHEUMATIC MITRAL (VALVE) INSUFFICIENC 08/13/2019 CARIE PENN WEB APPLICATIONS DEVELOPER Ot R06.09 OTHER FORMS OF DYSPNEA 08/13/2019 SHAHAB GAO, ELSA Kaur Ot I25 .2 OLD MYOCARDIAL INFARCTION 08/13/2019 SHAHAB GAO ELSA Kaur Ot I96 GANGRENE, NOT ELSEWHERE CLASSIFIED 08/13/2019 SHAHAB GAO ELSA Kaur Ot S51.812A LACERATION WITHOUT FOREIGN BODY OF LEFT 08/13/2019 SHAHAB GAO ELSA Kaur Ot Z86.79 PERSONAL HISTORY OF OTHER DISEASES OF TH 08/13/2019 SHAHAB GAO ELSA Kaur Ot I96 GANGRENE, NOT ELSEWHERE CLASSIFIED 08/13/2019 SHAHAB GAO ELSA aKur Ot S51.812A LACERATION WITHOUT FOREIGN BODY OF [...] 8 ENCOUNTER FOR OTHER SPECIFIED PROPHYLACT 11/05/2019 CALI BUCKLEY MD Ot E03. 9 HYPOTHYROIDISM, UNSPECIFIED 11/05/2019 CALI BUCKLEY MD Ot E78. 5 HYPERLIPIDEMIA, UNSPECIFIED 11/05/2019 CALI BUCKLEY MD Ot F32. 9 MAJOR DEPRESSIVE DISORDER, SINGLE EPISOD 11/05/2019 CALI BUCKLEY MD, Ot F41. 9 ANXIETY DISORDER, UNSPECIFIED 11/05/2019 CALI BUCKLEY MD Ot G40.909 EPILEPSY, UNSP, NOT INTRACTABLE, WITHOUT 11/05/2019 CALI BUCKLEY MD Ot G47. 36 SLEEP RELATED HYPOVENTILATION IN CONDITI 11/05/2019 CALI BUCKLEY MD Ot I08. 1 RHEUMATIC DISORDERS OF BOTH MITRAL AND T 11/05/2019 CALI BUCKLEY MD Ot I11. 0 HYPERTENSIVE HEART DISEASE WITH HEART FA 11/05/2019 CALI BUCKLEY MD Ot I21. A1 MYOCARDIAL INFARCTION TYPE 2 11/05/2019 CALI BUCKLEY MD Ot I25. 10 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 11/05/2019 CALI BUCKLEY MD Ot I25. 5 ISCHEMIC CARDIOMYOPATHY 11/05/2019 CALI [...] AND CEREB INFRC W 11/05/2019 CALI BUCKLEY MD, Ot Z87.891 PERSONAL HISTORY OF NICOTINE DEPENDENCE 11/05/2019 CALI BUCKLEY MD Ot Z95. 1 PRESENCE OF AORTOCORONARY BYPASS GRAFT 11/05/2019 CALI BUCKLEY MD Ot Z95. 5 PRESENCE OF CORONARY ANGIOPLASTY IMPLANT 11/05/2019 CALI BUCKLEY MD Ot Z95.810 PRESENCE OF AUTOMATIC (IMPLANTABLE) CARD 11/05/2019 CALI BUCKLEY MD Ot Z99. 81 DEPENDENCE ON SUPPLEMENTAL OXYGEN 11/06/2019 CALI BUCKLEY MD, Ot E03. 9 HYPOTHYROIDISM, UNSPECIFIED 11/06/2019 CALI BUCKLEY MD, Ot E78. 5 HYPERLIPIDEMIA, UNSPECIFIED 11/06/2019 CALI BUCKLEY MD Ot F32. 9 MAJOR DEPRESSIVE DISORDER, SINGLE EPISOD 11/06/2019 CALI BUCKLEY MD Ot F41. 9 ANXIETY DISORDER, UNSPECIFIED 11/06/2019 [...] MYOCARDIAL INFARCTION TYPE 2 11/06/2019 CALI BUCKLEY MD Ot I25. 10 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 11/06/2019 CALI BUCKLEY MD Ot I25. 5 ISCHEMIC CARDIOMYOPATHY 11/06/2019 CALI BUCKLEY MD Ot I48. 91 UNSPECIFIED ATRIAL FIBRILLATION 11/06/2019 CALI BUCKLEY MD Ot I50. 23 ACUTE ON CHRONIC SYSTOLIC (CONGESTIVE) H 11/06/2019 CALI BUCKLEY MD Ot I65. 23 OCCLUSION AND STENOSIS OF [place] 11/06/2019 CALI BUCKLEY MD Ot I73. 9 PERIPHERAL VASCULAR DISEASE, UNSPECIFIED 11/06/2019 CALI BUCKLEY MD, Ot J44. 1 CHRONIC OBSTRUCTIVE PULMONARY DISEASE W 11/06/2019 CALI BUCKLEY MD, Ot J96. 01 ACUTE RESPIRATORY FAILURE WITH HYPOXIA 11/06/2019 CALI BUCKLEY MD, Ot K21. 9 GASTRO-ESOPHAGEAL REFLUX DISEASE WITHOUT 11/06/2019 CALI BUCKLEY MD, Ot R26. 89 OTHER ABNORMALITIES OF GAIT AND MOBILITY 11/06/2019 CALI BUCKLEY MD, Ot Z66 DO NOT RESUSCITATE 11/06/2019 CALI BUCKLEY MD, Ot Z86. 73 PRSNL HX OF TIA (TIA), AND CEREB INFRC W 11/06/2019 CALI BUCKLEY MD, Ot Z87.891 PERSONAL HISTORY OF NICOTINE DEPENDENCE 11/06/2019 CALI BUCKLEY MD, Ot Z95. 1 PRESENCE OF AORTOCORONARY BYPASS GRAFT 11/06/2019 CALI BUCKLEY MD, Ot Z95. 5 PRESENCE OF CORONARY ANGIOPLASTY IMPLANT 11/06/2019 CALI BUCKLEY MD, Ot Z95.810 PRESENCE OF AUTOMATIC (IMPLANTABLE) CARD 11/06/2019 CALI BUCKLEY MD, Ot Z99. 81 DEPENDENCE ON SUPPLEMENTAL OXYGEN 11/06/2019 CALI BUCKLEY MD, Ot E03. 9 HYPOTHYROIDISM, UNSPECIFIED 11/06/2019 CALI BUCKLEY MD, Ot E78. 5 HYPERLIPIDEMIA, UNSPECIFIED 11/06/2019 CALI BUCKLEY MD, Ot F32. 9 MAJOR DEPRESSIVE DISORDER, SINGLE EPISOD 11/06/2019 CALI BUCKLEY MD, Ot F41. 9 ANXIETY DISORDER, UNSPECIFIED 11/06/2019 CALI BUCKLEY MD, Ot G40.909 EPILEPSY, UNSP, NOT INTRACTABLE, WITHOUT 11/06/2019 CALI BUCKLEY MD, Ot G47. 36 SLEEP RELATED HYPOVENTILATION IN CONDITI 11/06/2019 CALI BUCKLEY MD, Ot I08. 1 RHEUMATIC DISORDERS OF BOTH MITRAL AND T 11/06/2019 CALI BUCKLEY MD, Ot I11. 0 HYPERTENSIVE HEART DISEASE WITH HEART FA 11/06/2019 CALI BUCKLEY MD, Ot I13. 0 HYP HRT CHR KDNY DIS W HRT FAIL AND ST 11/06/2019 CALI BUCKLEY MD, Ot I21. A1 MYOCARDIAL INFARCTION TYPE 2 11/06/2019 CALI BUCKLEY MD, Ot I25. 10 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 11/06/2019 CALI BUCKLEY MD, Ot I25. 5 ISCHEMIC CARDIOMYOPATHY 11/06/2019 CALI BUCKLEY MD, Ot I48. 91 UNSPECIFIED ATRIAL FIBRILLATION 11/06/2019 CALI BUCKLEY MD, Ot I50. 23 ACUTE ON CHRONIC SYSTOLIC (CONGESTIVE) H 11/06/2019 CALI BUCKLEY MD, Ot I65. 23 OCCLUSION AND STENOSIS OF [...] Z29. 8 ENCOUNTER FOR OTHER SPECIFIED PROPHYLACT 11/10/2019 RONAK JOY DO Ot E03.9 HYPOTHYROIDISM, UNSPECIFIED 11/10/2019 JOY DO, RONAK Ot E78.5 HYPERLIPIDEMIA, UNSPECIFIED 11/10/2019 JOY DO, RONAK Ot E86.9 VOLUME DEPLETION, UNSPECIFIED 11/10/2019 JOY DO, RONAK Ot E87.1 HYPO-OSMOLALITY AND HYPONATREMIA 11/10/2019 JOY DO, RONAK Ot F32.9 MAJOR DEPRESSIVE DISORDER, SINGLE EPISOD 11/10/2019 JOY DO, RONAK Ot F41.9 ANXIETY DISORDER, UNSPECIFIED 11/10/2019 JOY DO, RONAK Ot G40.90 9 EPILEPSY, UNSP, NOT INTRACTABLE, WITHOUT 11/10/2019 JOY DO, RONAK Ot G72.89 OTHER SPECIFIED MYOPATHIES 11/10/2019 JOY DO, RONAK Ot I08.1 RHEUMATIC DISORDERS OF BOTH MITRAL AND T 11/10/2019 JOY DO, RONAK Ot I13.0 HYP HRT CHR KDNY DIS W HRT FAIL AND ST 11/10/2019 JOY DO, RONAK Ot 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 11/10/2019 JOY DO, RONAK Ot I25.5 ISCHEMIC CARDIOMYOPATHY 11/10/2019 JOY DO, RONAK Ot I50.23 ACUTE ON CHRONIC SYSTOLIC (CONGESTIVE) H 11/10/2019 JOY DO, RONAK Ot I65.23 OCCLUSION AND STENOSIS OF [place] 11/10/2019 JOY DO, RONAK Ot 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 11/10/2019 JOY DO, RONAK Ot J06.9 ACUTE UPPER RESPIRATORY INFECTION, UNSPE 11/10/2019 JOY DO, RONAK Ot J43.9 EMPHYSEMA, UNSPECIFIED 11/10/2019 JOY DO, RONAK Ot J96.91 RESPIRATORY FAILURE, UNSPECIFIED WITH HY 11/10/2019 JOY DO, RONAK Ot 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 11/10/2019 JOY DO, RONAK Ot M48.07 SPINAL STENOSIS, LUMBOSACRAL REGION 11/10/2019 JOY DO, RONAK Ot N18.9 CHRONIC KIDNEY DISEASE, UNSPECIFIED 11/10/2019 JOY DO, RONAK Ot N28.9 DISORDER OF KIDNEY AND URETER, UNSPECIFI 11/10/2019 JOY DO, RONAK Ot T50.2X 5A ADVRS EFF OF CRBNC-ANHYDR INHIBTR, BENZO 11/10/2019 JOY DO, RONAK Ot Z95.0 PRESENCE OF CARDIAC PACEMAKER 11/10/2019 BENITA ESTRADA, RONAK Ot Z95.1 PRESENCE OF AORTOCORONARY BYPASS GRAFT 11/10/2019 BENITA ESTRADA RONAK Ot 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 11/10/2019 BENITA ESTRADA RONAK Ot Z99.81 DEPENDENCE ON SUPPLEMENTAL OXYGEN 11/12/2019 JULISSA VASQUEZ MD Ot R27.9 UNSPECIFIED LACK OF COORDINATION 11/12/2019 JULISSA VASQUEZ MD Ot R53.1 WEAKNESS 11/12/2019 JOY DO, RONAK Ot E78.00 PURE HYPERCHOLESTEROLEMIA, UNSPECIFIED 11/12/2019 JOY DO, RONAK Ot E86.9 VOLUME DEPLETION, UNSPECIFIED 11/12/2019 JOY DO, RONAK Ot F32.9 MAJOR DEPRESSIVE DISORDER, SINGLE EPISOD 11/12/2019 BENITA ESTRADA, RONAK Ot G40.90 9 EPILEPSY, UNSP, NOT INTRACTABLE, WITHOUT 11/12/2019 JOY DO, RONAK Ot G62.9 POLYNEUROPATHY, UNSPECIFIED 11/12/2019 JOY DO, RONAK Ot I11.0 HYPERTENSIVE HEART DISEASE WITH HEART FA 11/12/2019 JOY DO, RONAK Ot 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 11/12/2019 BENITA DO, RONAK Ot I25.5 ISCHEMIC CARDIOMYOPATHY 11/12/2019 JOY DO, RONAK Ot I48.91 UNSPECIFIED ATRIAL FIBRILLATION 11/12/2019 BENITA ESTRADA, RONAK Ot I50.23 ACUTE ON CHRONIC SYSTOLIC (CONGESTIVE) H 11/12/2019 BENITA ESTRADA, RONAK Ot I65.23 OCCLUSION AND STENOSIS OF [place] 11/12/2019 JOY DO, RONAK Ot 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 11/12/2019 JOY DO, RONAK Ot I70.0 ATHEROSCLEROSIS OF AORTA 11/12/2019 BENITA ESTRADA RONAK Ot J10.1 FLU DUE TO [facility] IDENT INFLUENZA VIRUS W O 11/12/2019 BENITA DO RONAK Ot J30.2 OTHER SEASONAL ALLERGIC RHINITIS 11/12/2019 BENITA ESTRADA RONAK Ot J44.1 CHRONIC OBSTRUCTIVE PULMONARY DISEASE W 11/12/2019 BENITA ESTRADA RONAK Ot J96.21 ACUTE AND [...] RONAK Ot Z66 DO NOT RESUSCITATE 11/12/2019 JOY DO, RONAK Ot Z87.89 1 PERSONAL HISTORY OF NICOTINE DEPENDENCE 11/12/2019 JOY DO, RONAK Ot Z95.1 PRESENCE OF AORTOCORONARY BYPASS GRAFT 11/13/2019 JOY DO, RONAK Ot E78.00 PURE HYPERCHOLESTEROLEMIA, UNSPECIFIED 11/13/2019 JOY DO, RONAK Ot E86.9 VOLUME DEPLETION, UNSPECIFIED 11/13/2019 JOY DO, RONAK Ot F32.9 MAJOR DEPRESSIVE DISORDER, SINGLE EPISOD 11/13/2019 JOY DO, RONAK Ot G40.90 9 EPILEPSY, UNSP, NOT INTRACTABLE, WITHOUT 11/13/2019 JOY DO, RONAK Ot G62.9 POLYNEUROPATHY, UNSPECIFIED 11/13/2019 JOY DO, RONAK Ot I11.0 HYPERTENSIVE HEART DISEASE WITH HEART FA 11/13/2019 JOY DO, RONAK Ot 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 11/13/2019 JOY DO, RONAK Ot I25.5 [...] DO, RONAK Ot J10.1 FLU DUE TO OTH IDENT INFLUENZA VIRUS W O 11/13/2019 JOY DO, RONAK Ot J30.2 OTHER SEASONAL ALLERGIC RHINITIS 11/13/2019 JOY DO, RONAK Ot J44.1 CHRONIC OBSTRUCTIVE PULMONARY DISEASE W 11/13/2019 JOY DO, RONAK Ot J96.21 ACUTE [...] RONAK Ot 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 11/13/2019 JOY DO, RONAK Ot I25.5 ISCHEMIC CARDIOMYOPATHY 11/13/2019 JOY DO, RONAK Ot I50.23 ACUTE ON CHRONIC SYSTOLIC (CONGESTIVE) H 11/13/2019 JOY DO, RONAK Ot I65.23 OCCLUSION AND STENOSIS OF [place] 11/13/2019 JOY DO, RONAK Ot 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 11/13/2019 JOY DO, RONAK Ot J06.9 ACUTE UPPER RESPIRATORY INFECTION, UNSPE 11/13/2019 BENITA ESTRADA, RONAK Ot J43.9 EMPHYSEMA, UNSPECIFIED 11/13/2019 JOY DO, RONAK Ot J96.91 RESPIRATORY FAILURE, UNSPECIFIED WITH HY 11/13/2019 JOY DO, RONAK Ot 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 11/13/2019 JOY DO, RONAK Ot M48.07 SPINAL STENOSIS, LUMBOSACRAL REGION 11/13/2019 JOY DO, RONAK Ot N18.9 CHRONIC KIDNEY DISEASE, UNSPECIFIED 11/13/2019 JOY DO, RONAK Ot N28.9 DISORDER OF KIDNEY AND URETER, UNSPECIFI 11/13/2019 BENITA ESTRADA, RONAK Ot T50.2X 5A ADVRS EFF OF CRBNC-ANHYDR INHIBTR, BENZO 11/13/2019 JOY DO, RONAK Ot Z95.0 PRESENCE OF CARDIAC PACEMAKER 11/13/2019 JOY DO, RONAK Ot Z95.1 PRESENCE OF AORTOCORONARY BYPASS GRAFT 11/13/2019 JOY DO, RONAK Ot 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 11/13/2019 BENITA DO, RONAK Ot Z99.81 DEPENDENCE ON SUPPLEMENTAL [...] RONAK Ot 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 2 ENTEROCOCCUS THE CAUSE OF DISEASES CL 12/29/2019 TOMMIE GRAJEDA MD Ot E03. 9 HYPOTHYROIDISM, UNSPECIFIED 12/29/2019 TOMMIE GRAJEDA MD Ot E78. 00 PURE HYPERCHOLESTEROLEMIA, UNSPECIFIED 12/29/2019 TOMMIE GRAJEDA MD Ot F32. 9 MAJOR DEPRESSIVE DISORDER, SINGLE EPISOD 12/29/2019 TOMMIE GRAJEDA MD Ot G40.909 EPILEPSY, UNSP, NOT INTRACTABLE, WITHOUT 12/29/2019 NICCI GAO, TOMMIE Gayle Ot G62. 9 POLYNEUROPATHY, UNSPECIFIED 12/29/2019 TOMMIE GRAJEDA MD Ot I11. 0 HYPERTENSIVE HEART DISEASE WITH HEART FA 12/29/2019 TOMMIE GRAJEDA MD Ot I25. 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 99 OTHER PULMONARY EMBOLISM WITHOUT ACUTE C 12/29/2019 NICCI GAO, TOMMIE Gayle Ot I42. 9 CARDIOMYOPATHY, UNSPECIFIED 12/29/2019 TOMMIE GRAJEDA MD Ot I50. 9 HEART FAILURE, UNSPECIFIED 12/29/2019 TOMMIE GRAJEDA MD Ot I73. 9 PERIPHERAL VASCULAR DISEASE, UNSPECIFIED 12/29/2019 TOMMIE GRAJEDA MD Ot J18. 9 PNEUMONIA, UNSPECIFIED ORGANISM 12/29/2019 TOMMIE GRAJEDA MD Ot J44. 9 CHRONIC OBSTRUCTIVE PULMONARY DISEASE, U 12/29/2019 TOMMIE GRAJEDA MD Ot J96. 21 ACUTE AND CHRONIC RESPIRATORY FAILURE [place] 12/29/2019 TOMMIE GRAJEDA MD Ot K22. 0 ACHALASIA OF CARDIA 12/29/2019 TOMMIE GRAJEDA MD Ot M19. 91 PRIMARY OSTEOARTHRITIS, UNSPECIFIED SITE 12/29/2019 TOMMIE GRAJEDA MD Ot M54. 9 DORSALGIA, UNSPECIFIED 12/29/2019 TOMMIE GRAJEDA MD Ot N39. 0 URINARY TRACT INFECTION, SITE NOT SPECIF 12/29/2019 TOMMIE GRAJEDA MD Ot S50.312A ABRASION OF LEFT ELBOW, INITIAL ENCOUNTE 12/29/2019 TOMMIE GRAJEDA MD Ot W19.XXXA UNSPECIFIED FALL, INITIAL ENCOUNTER 12/29/2019 TOMMIE GRAJEDA MD Ot Z20.828 CONTACT W AND EXPOSURE TO OTH VIRAL COMM 12/29/2019 TOMMIE GRAJEDA MD Ot Z66 DO NOT RESUSCITATE 12/29/2019 TOMMIE GRAJEDA MD, Ot Z85.828 PERSONAL HISTORY OF OTHER MALIGNANT NEOP 12/29/2019 TOMMIE GRAJEDA MD Ot Z86. 73 PRSNL HX OF TIA (TIA), AND CEREB INFRC W 12/29/2019 NICCI GAO, TOMMIE Gayle Ot Z87.891 PERSONAL HISTORY OF NICOTINE DEPENDENCE 12/29/2019 TOMMIE GRAJEDA MD Ot Z95. 1 PRESENCE OF AORTOCORONARY BYPASS GRAFT 12/29/2019 TOMMIE GRAJEDA MD Ot Z95. 5 PRESENCE OF CORONARY ANGIOPLASTY IMPLANT 12/29/2019 TOMMIE GRAJEDA MD Ot Z95.810 PRESENCE OF AUTOMATIC (IMPLANTABLE) CARD 12/29/2019 TOMMIE GRAJEDA MD Ot Z99. 81 DEPENDENCE ON SUPPLEMENTAL OXYGEN 02/09/2020 BENITA DO RONAK Ot E03.9 HYPOTHYROIDISM, UNSPECIFIED 02/09/2020 BENITA DO RONAK Ot E78.5 HYPERLIPIDEMIA, UNSPECIFIED 02/09/2020 BENITA DO RONAK Ot E86.9 VOLUME DEPLETION, UNSPECIFIED 02/09/2020 BENITA ESTRADA RONAK Ot E87.1 HYPO-OSMOLALITY AND HYPONATREMIA 02/09/2020 BENITA ESTRADA RONAK Ot F32.9 MAJOR DEPRESSIVE DISORDER, SINGLE EPISOD 02/09/2020 BENITA DO RONAK Ot F41.9 ANXIETY DISORDER, UNSPECIFIED 02/09/2020 JOY DO, RONAK Ot G40.90 9 EPILEPSY, UNSP, NOT INTRACTABLE, WITHOUT 02/09/2020 BENITA ESTRADA, RONAK Ot G72.89 OTHER SPECIFIED MYOPATHIES 02/09/2020 BENITA ESTRADA RONAK Ot I08.1 RHEUMATIC DISORDERS OF BOTH MITRAL AND T 02/09/2020 BENITA ESTRADA RONAK Ot I13.0 HYP HRT CHR KDNY DIS W HRT FAIL AND ST 02/09/2020 BENITA DO RONAK Ot 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 02/09/2020 BENITA DO RONAK Ot I25.5 ISCHEMIC CARDIOMYOPATHY 02/09/2020 BENITA ESTRADA RONAK Ot I50.23 ACUTE ON CHRONIC SYSTOLIC (CONGESTIVE) H 02/09/2020 BENITA ESTRADA RONAK Ot I65.23 OCCLUSION AND STENOSIS OF [place] 02/09/2020 BENITA DO RONAK Ot 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 02/09/2020 BENITA ESTRADA RONAK Ot J06.9 ACUTE UPPER RESPIRATORY INFECTION, UNSPE 02/09/2020 JOY DO, RONAK Ot J43.9 EMPHYSEMA, UNSPECIFIED 02/09/2020 JOY DO, RONAK Ot J96.91 RESPIRATORY FAILURE, UNSPECIFIED WITH HY 02/09/2020 JOY DO, RONAK Ot 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 02/09/2020 JOY DO, RONAK Ot M48.07 SPINAL STENOSIS, LUMBOSACRAL REGION 02/09/2020 JOY DO, RONAK Ot N18.9 CHRONIC KIDNEY DISEASE, UNSPECIFIED 02/09/2020 JOY DO, RONAK Ot N28.9 DISORDER OF KIDNEY AND URETER, UNSPECIFI 02/09/2020 JOY DO, RONAK Ot T50.2X 5A ADVRS EFF OF CRBNC-ANHYDR INHIBTR, BENZO 02/09/2020 JOY DO, RONAK Ot Z95.0 PRESENCE OF CARDIAC PACEMAKER 02/09/2020 JOY , RONAK Ot Z95.1 PRESENCE OF AORTOCORONARY BYPASS GRAFT 02/09/2020 JOY RONAK Ot 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 02/09/2020 JOY DO RONAK Ot Z99.81 DEPENDENCE ON SUPPLEMENTAL OXYGEN 02/19/2020 HERNAN THIBODEAUX Ot R 05 COUGH 02/19/2020 HERNAN THIBODEAUX Ot R06.02 SHORTNESS OF BREATH 02/19/2020 HERNAN THIBODEAUX Ot R13.10 DYSPHAGIA, UNSPECIFIED Procedures Code Description Performed By Per formed On 33.24 ENDO SCOPIC BRONCHIAL BX 10/19/2009 [...] - 03/13/19 00:12 Magnesium 2.3 mg/dL 1.8-2.4 Automated blood [...] i.cardiac measurement (mass/v olume) 0.041 ng/mL <0.028 [id number] - 11/02/19 18:30 [id number] 0.69 ng/mL 0.80-2.00 Serum or plasma lithium [...] 100 mmol/L 98-107 Carbon dioxide 24 mmol/L -32 Serum or plasma anion gap determination (moles/volume) [...] plasma calcium measurement (mass/volume) 9.6 mg/dL 8.5-10.1 [id number] - 11/03/19 10:20 [id number] 0.44 ng/mL 0.80-2.00 PROCALCITONIN (PCT) - 11/03/19 [...] 99 mmol/L 98-107 Carbon dioxide 27 mmol/L -32 Serum or plasma anion gap determination (moles/volume) [...] NRG Blood erythrocyte morphology finding identification NORMAL NRG Complete blood count (CBC) with automate [...] culture - 11/11/19 06:52 Bacterial urine culture [id number] NRG COLONY COUNT 20,000 CFU/ML NRG FTX;REPORTABLE SUSCEPTIBILITY REPORTED 11/13 12:05 NRG FREE TEXT ENTRY 2 PRELIM RAPID ID BY [facility] 11-12-19 2214. NRG FREE TEXT ENTRY 3 ID CONFIRMED [...] in platelet poor plasma bycoagulation assay - 04/24/20 12:30 Activated partial thromboplastin time (a PTT) [...] protein measurement (mass/v olume) 15.57 mg/dL 0.00-0.50 [id number] - 12/25/19 12:30 [id number] 1.05 ng/mL 0.80-2.00 PHENOBARBITAL - 12/25/19 12:30 [id number] 30.3 % 15.0-40.0 DILANTIN (PHENYTOIN) - 12/25/19 12:30 DILANTIN PHEN 14.3 % 10.0-20.0 Bacterial blood culture - 12/25/19 12:30 QUANTITY OF GROWTH Isolated NRG Bacterial blood culture [id number] NRG SUSCEPTIBILITY (LEIFSONIA AQUATICA) ID BY [facility] REF LAB NRG MRSA SCREEN NO SUSCEPTIBILITY PERFORMED NRG RAPID ID WITHIN 48 HRS TO NRG MRSA CONFIRMATION NO FURTHER STUDIES UNLESS REQUES HERBIE NRG ID CONFIRMATION MICTO DEPT. [phone] NRG Influenza virus A and B antigen detectio n - 12/25/19 12:50 FLU RESULT NEGATIVE FOR INFLUENZA A AND B ANTIGENS BY IA NRG Coronavirus SARS-CoV-2 SO 2018 0 12:50 Coronavirus Ab [Units/volume] in Serum Negative Negative Bacterial blood culture - 12/25/19 12:50 QUANTITY OF GROWTH Isolated NRG Bacterial blood culture [id number] NRG ADENOVIRUS DETECTION BY PCR - 12/25/19 1 2:50 Adenovirus detection, CSF, PCR Not Detected Not Detected PARAINFLUENZA VIRUS 1,2,3 PCR - 12/25/19 12:50 Serum or plasma aripiprazole measurement (mass/volume) Not Detected Not Detected PARAINFLU 3 PCR Not Detected Not Detect ed Arterial blood gas measurement - 0 12:51 [...] culture YES NRG Bacterial urine culture - 12/25/19 13:56 Bacterial urine culture [id number] NRG COLONY COUNT >100,000/ML NRG SUSCEPTIBILITY SUSCEPTIBILITY REPORTED 12/26 09:30 NRG RAPID ID PRELIM RAPID ID TEST AT [facility] 12/25 11:25 NRG ID CONFIRMATION RML CONFIRMED ENTEROCOCCUS ID 12/25 NRG Dirithromycin susceptibility test by dis k diffusion - 12/25/19 13:56 Vancomycin susceptibility test by minimum inhibitory c oncentration 2 NRG Levofloxacin susceptibility test by minimum inhibitory concentration <= NRG Ampicillin susceptibility test by minimum inhibitory c oncentration 1 NRG Nitrofurantoin susceptibility test by mi nimum inhibitory concentration <= NRG Linezolid susceptibility test by minimum inhibitory co ncentration <= NRG Daptomycin susc EASTON <= NRG Serum or plasma troponin i.cardiac measu rement (mass/volume) - 12/25/19 18:36 Serum or plasma troponin i.cardiac measurement (mass/v olume) < ng/mL <0.028 Complete blood count (CBC) with automate d white blood cell (WBC) differential - 12/26/19 05:28 Blood leukocytes automated count (number/volume) 6.5 10*3/uL 4.3-11.0 Blood erythrocytes automated count (number/volume) 3.29 10*6/uL 4.35-5.85 Venous blood hemoglobin measurement (mass/volume) 10.4 g/dL 13.3-17.7 Blood hematocrit (volume fraction) 32 % 40-54 Automated erythrocyte mean corpuscular volume 96 [ foz_us] 80-99 Automated erythrocyte mean corpuscular h emoglobin (mass per erythrocyte) 32 pg 25-34 Automated erythrocyte mean corpuscular h emoglobin concentration measurement (mass/volume) 33 g/dL 32-36 Automated erythrocyte distribution width ratio 15. 5 % 10.0- 14.5 Automated blood platelet count (count/volume) 168 10*3/uL 130-400 Automated blood platelet mean volume measurement 10.0 [foz_us] 7.4-10.4 Automated blood neutrophils/100 leukocytes 69 % 42-75 Automated blood lymphocytes/100 leukocytes 12 % 12-44 Blood monocytes/100 leukocytes 15 % 0-12 Automated blood eosinophils/100 leukocytes 4 % 0-10 Automated blood basophils/100 leukocytes 1 % 0-10 Blood neutrophils automated count (number/volume) 4.4 10*3 1.8-7.8 Blood lymphocytes automated count (number/volume) 0.8 10*3 1.0-4.0 Blood monocytes automated count (number/volume) 1. 0 10*3 0.0-1.0 Automated eosinophil count 0.3 10*3/uL 0 .0-0.3 Automated blood basophil count (count/volume) 0.0 10*3/uL 0.0-0.1 Comprehensive metabolic panel - 12/26/19 05:28 Serum or plasma sodium measurement (moles/volume) 139 mmol/L 135-145 Serum or plasma potassium measurement (moles/volume) 4.0 mmol/L 3.6-5.0 Serum or plasma chloride measurement (moles/volume) 103 mmol/L 98-107 Carbon dioxide 25 mmol/L 21-32 Serum or plasma anion gap determination (moles/volume) 11 mmol/L 5-14 Serum or plasma urea nitrogen measurement (mass/volume ) 21 mg/dL 7-18 Serum or plasma creatinine measurement (mass/volume) 0.84 mg/dL 0.60-1.30 Serum or plasma urea nitrogen/creatinine mass ratio 25 NRG Serum or plasma creatinine measurement w ith calculation of estimated glomerular filtration rate > NRG Serum or plasma glucose measurement (mass/volume) 73 mg/dL 70-105 Serum or plasma calcium measurement (mass/volume) 8.2 mg/dL 8.5-10.1 Serum or plasma total bilirubin measurement (mass/volu me) 0.3 mg/dL 0.1-1.0 Serum or plasma alkaline phosphatase giovanni surement (enzymatic activity/volume) 89 U/L 40-136 Serum or plasma aspartate aminotransfera se measurement (enzymatic activity/volume) 25 U/L 5-34 Serum or plasma alanine aminotransferase measurement (enzymatic activity/volume) 29 U/L 0-55 Serum or plasma protein measurement (mass/volume) 6.9 g/dL 6.4-8.2 Serum or plasma albumin measurement (mass/volume) 3.1 g/dL 3.2-4.5 CALCIUM CORRECTED 8.9 mg/dL 8.5-10.1 Automated blood complete blood count (he mogram) panel - 12/27/19 06:12 Blood leukocytes automated count (number/volume) 5.7 10*3/uL 4.3-11.0 Blood erythrocytes automated count (number/volume) 3.27 10*6/uL 4.35-5.85 Venous blood hemoglobin measurement (mass/volume) 10.5 g/dL 13.3-17.7 Blood hematocrit (volume fraction) 32 % 40-54 Automated erythrocyte mean corpuscular volume 97 [ foz_us] 80-99 Automated erythrocyte mean corpuscular h emoglobin (mass per erythrocyte) 32 pg 25-34 Automated erythrocyte mean corpuscular h emoglobin concentration measurement (mass/volume) 33 g/dL 32-36 Automated erythrocyte distribution width ratio 15. 7 % 10.0- 14.5 Automated blood platelet count (count/volume) 194 10*3/uL 130-400 Automated blood platelet mean volume measurement 10.2 [foz_us] 7.4-10.4 Whole blood basic metabolic panel - 12/02 02/19 06:12 Serum or plasma sodium measurement (moles/volume) 138 mmol/L 135-145 Serum or plasma potassium measurement (moles/volume) 4.4 mmol/L 3.6-5.0 Serum or plasma chloride measurement (moles/volume) 103 mmol/L 98-107 Carbon dioxide 26 mmol/L 21-32 Serum or plasma anion gap determination (moles/volume) 9 mmol/L 5-14 Serum or plasma urea nitrogen measurement (mass/volume ) 23 mg/dL 7-18 Serum or plasma creatinine measurement (mass/volume) 0.84 mg/dL 0.60-1.30 Serum or plasma urea nitrogen/creatinine mass ratio 27 NRG Serum or plasma creatinine measurement w ith calculation of estimated glomerular filtration rate > NRG Serum or plasma glucose measurement (mass/volume) 100 mg/dL 70-105 Serum or plasma calcium measurement (mass/volume) 8.3 mg/dL 8.5-10.1 PT panel in platelet poor plasma by coag ulation assay - 12/27/19 06:12 Prothrombin time (PT) in platelet poor plasma by coagu lation assay 15.6 s 12.2-14.7 INR in platelet poor plasma or blood by coagulation as say 1.2 0.8-1.4 Automated blood complete blood count (he mogram) panel - 12/28/19 06:00 Blood leukocytes automated count (number/volume) 5.6 10*3/uL 4.3-11.0 Blood erythrocytes automated count (number/volume) 3.28 10*6/uL 4.35-5.85 Venous blood hemoglobin measurement (mass/volume) 10.4 g/dL 13.3-17.7 Blood hematocrit (volume fraction) 32 % 40-54 Automated erythrocyte mean corpuscular volume 97 [ foz_us] 80-99 Automated erythrocyte mean corpuscular h emoglobin (mass per erythrocyte) 32 pg 25-34 Automated erythrocyte mean corpuscular h emoglobin concentration measurement (mass/volume) 33 g/dL 32-36 Automated erythrocyte distribution width ratio 15. 4 % 10.0- 14.5 Automated blood platelet count (count/volume) 206 10*3/uL 130-400 Automated blood platelet mean volume measurement 10.4 [foz_us] 7.4-10.4 Whole blood basic metabolic panel - 12/02 03/21 06:00 Serum or plasma sodium measurement (moles/volume) 139 mmol/L 135-145 Serum or plasma potassium measurement (moles/volume) 4.5 mmol/L 3.6-5.0 Serum or plasma chloride measurement (moles/volume) 104 mmol/L 98-107 Carbon dioxide 25 mmol/L 21-32 Serum or plasma anion gap determination (moles/volume) 10 mmol/L 5-14 Serum or plasma urea nitrogen measurement (mass/volume ) 17 mg/dL 7-18 Serum or plasma creatinine measurement (mass/volume) 0.82 mg/dL 0.60-1.30 Serum or plasma urea nitrogen/creatinine mass ratio 21 NRG Serum or plasma creatinine measurement w ith calculation of estimated glomerular filtration rate > NRG Serum or plasma glucose measurement (mass/volume) 92 mg/dL 70-105 Serum or plasma calcium measurement (mass/volume) 8.4 mg/dL 8.5-10.1 PT panel in platelet poor plasma by coag ulation assay - 12/28/19 06:00 Prothrombin time (PT) in platelet poor plasma by coagu lation assay 15.5 s 12.2-14.7 INR in platelet poor plasma or blood by coagulation as say 1.2 0.8-1.4 Automated blood complete blood count (he mogram) panel - 12/29/19 05:05 Blood leukocytes automated count (number/volume) 5.7 10*3/uL 4.3-11.0 Blood erythrocytes automated count (number/volume) 3.37 10*6/uL 4.35-5.85 Venous blood hemoglobin measurement (mass/volume) 10.8 g/dL 13.3-17.7 Blood hematocrit (volume fraction) 33 % 40-54 Automated erythrocyte mean corpuscular volume 97 [ foz_us] 80-99 Automated erythrocyte mean corpuscular h emoglobin (mass per erythrocyte) 32 pg 25-34 Automated erythrocyte mean corpuscular h emoglobin concentration measurement (mass/volume) 33 g/dL 32-36 Automated erythrocyte distribution width ratio 15. 6 % 10.0- 14.5 Automated blood platelet count (count/volume) 210 10*3/uL 130-400 Automated blood platelet mean volume measurement 10.2 [foz_us] 7.4-10.4 Whole blood basic metabolic panel - 12/02 04/21 05:05 Serum or plasma sodium measurement (moles/volume) 138 mmol/L 135-145 Serum or plasma potassium measurement (moles/volume) 4.3 mmol/L 3.6-5.0 Serum or plasma chloride measurement (moles/volume) 102 mmol/L 98-107 Carbon dioxide 26 mmol/L 21-32 Serum or plasma anion gap determination (moles/volume) 10 mmol/L 5-14 Serum or plasma urea nitrogen measurement (mass/volume ) 22 mg/dL 7-18 Serum or plasma creatinine measurement (mass/volume) 0.82 mg/dL 0.60-1.30 Serum or plasma urea nitrogen/creatinine mass ratio 27 NRG Serum or plasma creatinine measurement w ith calculation of estimated glomerular filtration rate > NRG Serum or plasma glucose measurement (mass/volume) 97 mg/dL 70-105 Serum or plasma calcium measurement (mass/volume) 8.6 mg/dL 8.5-10.1 PT panel in platelet poor plasma by coag ulation assay - 12/29/19 05:05 Prothrombin time (PT) in platelet poor plasma by coagu lation assay 16.7 s 12.2-14.7 INR in platelet poor plasma or blood by coagulation as say 1.3 0.8-1.4 Coronavirus SARS-CoV-2 SO 2019 - 0 08:00 Coronavirus Ab [Units/volume] in Serum Negative Negative Methicillin resistant Staphylococcus aur eus (MRSA) screening culture - 03/03/20 11:00 MRSA SCREEN RESULT MRSA ISOLATED NRG PT panel in platelet poor plasma by coag ulation assay - 03/03/20 11:15 Prothrombin time (PT) in platelet poor plasma by coagu lation assay 14.5 s 12.2-14.7 INR in platelet poor plasma or blood by coagulation as say 1.1 0.8-1.4 Encounters ACCT No. Visit Date/Time Discharge Status Pt. Type Provider Facility Loc./Unit Complaint [id number] 10/06/2019 08:41:00 10/06/2019 23:59 :00 DIS Outpatient NYA ZUNIGA [id number] 03/03/2020 10:36:00 15:30:00 DIS [facility] 2 [id number] 02/29/2020 05:36:00 09:54:00 DIS Outpatient CORNELIO JACOBO DO [facility] PREOP SKIN LESIONS X2 [id number] 02/18/2020 09:52:00 23:59:59 CLS Outpatient HERNAN THIBODEAUX [facility] RAD COUGH,SOB [id number] 12/25/2019 14:45:00 020 13:44:00 DIS Inpatient TOMMIE GRAJEDA MD [facility] 4TH ACUTE ON CHRONIC RESP. FAILURE;PNEUMONIA;CAD;CHF;- [id number] 10/30/2019 13:34:00 020 00:01:00 DIS Outpatient LLUVIA ALMONTE MD [facility] CR3 CARDIAC REHAB PHASE 3 [id number] 11/13/2019 13:25:00 13:43:00 DIS Inpatient NICCI GAO, TOMMIE Gayle [facility] 4TH INFLUENZA [id number] 11/10/2019 05:35:00 12:58:00 DIS Inpatient JOY DO, RONAK V [facility] 4TH RESPIRATORY FAILURE [id number] 10/29/2019 10:21:00 00:01:00 DIS Outpatient JULISSA VASQUEZ MD [facility] REHAB GENERAL WEAKNESS;LACK O F COORDINATION [id number] 11/06/2019 11:08:00 05:41:00 DIS Outpatient BENITA DO RONAK [facility] IRF DEBILITY [id number] 11/02/2019 18:19:00 11:08:00 DIS Inpatient MARCIO GAO, CALI Gayle [facility] 4TH AE CHF [id number] 10/16/2019 13:11:00 00:01:00 DIS Outpatient LLUVIA ALMONTE MD [facility] CR3 CARDIAC REHAB PHASE 3 [id number] 08/12/2019 00:10:00 23:59:59 CLS Preadmit [facility]LACK O F COORDINATION [id number] 06/17/2019 10:12:00 00:01:00 DIS Outpatient BENITA DO RONAK [facility] REHAB UNSTEADY GAIT;L UE WEAK NESS [id number] 05/27/2019 14:00:00 00:01:00 DIS Outpatient LLUVIA ALMONTE MD Via [facility] CARDIAC REHAB PHASE 3 [id number] 06/05/2019 12:47:00 23:59:59 CLS Outpatient JOY DO RONAK [facility] RAD CEREBRAL INFARCTION [id number] 05/29/2019 15:47:00 23:59:59 CLS Outpatient RONAK JOY DO [facility] LAB WEAKNESS [id number] 05/22/2019 14:45:00 00:01:00 DIS Outpatient LLUVIA ALMONTE MD [facility] [place] [address] CARDIAC REHAB PHASE 3 [id number] 04/22/2019 14:02:00 00:01:00 DIS Outpatient LLUVIA ALMONTE MD [facility] [place] [address] CARDIAC REHAB PHASE 3 [id number] 04/20/2019 13:51:00 23:59:59 CLS Outpatient ELSA GUDINO MD [facility] WOUNDCARE [id number] 04/13/2019 13:57:00 23:59:59 CLS Outpatient ELSA GUDINO MD [facility] WOUNDCARE [id number] 03/28/2019 10:22:00 12:24:00 DIS Emergency HERNAN THIBODEAUX [facility] ER L ARM INJURY [id number] 03/25/2019 14:57:00 15:26:[address] RAMIRES APRN [facility] ER STITCH REMOVAL [id number] 03/20/2019 13:22:00 00:01:00 DIS Outpatient LLUVIA ALMONTE MD [facility] [place] [address] CARDIAC REHAB PHASE 3 [id number] 03/12/2019 23:53:00 02:50:00 DIS Emergency JEFFERY AYERS MD [facility] ER FALL, RT EYE INJURY [id number] 02/18/2019 15:10:00 00:01:00 DIS Outpatient LLUVIA ALMONTE MD [facility] [place] [address] CARDIAC REHAB PHASE 3 [id number] 01/20/2019 11:46:00 23:59:59 CLS Outpatient CARIE PENNP [facility] CARD CAD,MORAN [id number] 01/16/2019 14:56:00 00:01:00 DIS Outpatient LLUVIA ALMONTE MD [facility] [place] [address] CARDIAC REHAB PHASE 3 [id number] 12/12/2018 14:52:00 00:01:00 DIS Outpatient LLUVIA ALMONTE MD [facility] [place] [address] CARDIAC REHAB PHASE 3 [id number] 11/12/2018 15:34:00 00:01:00 DIS Outpatient LLUVIA ALMONTE MD [facility] [place] [address] CARDIAC REHAB PHASE 3 [id number] 10/10/2018 15:35:00 00:01:00 DIS Outpatient LLUVIA ALMONTE MD [facility] [place] [address] CARDIAC REHAB PHASE 3 [id number] 09/11/2018 12:55:00 12:20:00 DIS Outpatient ELSA ROBLEDO MD [facility] REHAB BALANCE [id number] 09/10/2018 14:49:00 00:01:00 DIS Outpatient LLUVIA ALMONTE MD [facility] [place] [address] CARDIAC REHAB PHASE 3 [id number] 09/01/2018 14:03:00 10:27:00 DIS Outpatient ELSA ROBLEDO MD [facility] REHAB BALANCE [id number] 08/06/2018 14:42:00 00:01:00 DIS Outpatient LLUVIA ALMONTE MD [facility] [place] [address] CARDIAC REHAB PHASE 3 [id number] 07/09/2018 13:45:00 00:01:00 DIS Outpatient LLUVIA ALMONTE MD [facility] [place] [address] CARDIAC REHAB PHASE 3 [id number] 06/06/2018 14:08:00 00:01:00 DIS Outpatient LLUVIA ALMONTE MD [facility] [place] [address] CARDIAC REHAB PHASE 3 [id number] 06/06/2018 12:56:00 14:34:00 DIS Outpatient RONAK JOY DO [facility] REHAB UNSTEADINESS ON FEET [id number] 05/30/2018 12:54:00 018 00:01:00 DIS [facility] [id number] 05/07/2018 16:05:00 018 00:01:00 DIS Outpatient LLUVIA ALMONTE MD [facility] [place] [address] CARDIAC REHAB PHASE 3 [id number] 04/24/2018 09:02:00 018 23:59:59 CLS Outpatient RONAK JOY DO [facility] RAD CEREBARAL INFARCTION,UN SPECIFIED [id number] 03/31/2018 14:08:00 018 23:59:59 CLS Outpatient LLUVIA ALMONTE MD [facility] [place] [address] CARDIAC REHAB PHASE 3 [id number] 03/03/2018 16:35:00 018 00:01:00 DIS Outpatient LLUVIA ALMONTE MD [facility] [place] [address] CARDIAC REHAB PHASE 3 [id number] 01/31/2018 15:23:00 018 00:01:00 DIS Outpatient LLUVIA ALMONTE MD [facility] [place] [address] CARDIAC REHAB PHASE 3 [id number] 01/01/2018 15:16:00 018 00:01:00 DIS Outpatient LLUVIA ALMONTE MD [facility] [place] [address] CARDIAC REHAB PHASE 3 [id number] 10/07/2017 13:02:00 018 13:47:00 DIS Out[facility]ICI [facility] [id number] 07/23/2017 14:00:00 017 14:41:00 DIS Outpatient EL[facility]PANDO [facility] Y;LUMBAR SPINAL STENOSIS [id number] 05/27/2017 13:27:00 017 00:01:00 DIS Outpatient EL[facility]PANDO [facility] Y;LUMBAR SPINAL STENOSIS [id number] 04/11/2017 14:35:00 00:01:00 DIS Outpatient MONTYTAY ELSA ESTRADA [facility] REHAB GAIT ABNORMALIT Y;LUMBAR SPINAL STENOSIS [id number] 01/29/2017 12:41:00 23:59:59 CLS Outpatient KADE GAO FACC, DANNIELLE CARDENAS CC DS [facility] RAD I25.10,I73. 9,I65.23 [id number] 08/15/2016 07:32:00 23:59:59 CLS Outpatient KADE GAO FACC, DANNIELLE BOSCH DS [facility] CARD WEAKNESS,CA D [id number] 07/19/2016 13:39:00 09:17:00 DIS Outpatient RINKU MELENDEZ [facility] REHAB SCIATICA [id number] 01/06/2016 11:34:00 23:59:59 CLS Outpatient GRECIA FOSTER DIRECTOR OF SECURITY [facility] RAD LT TESTICULAR PAIN NABEEL ITING TO LT GROIN [id number] 12/29/2015 07:28:00 016 23:59:59 CLS Outpatient KADE GAO FACC, DANNIELLE CARDENAS CC DS [facility] CARD CAD,ISCHEMI C CARDIOMYOPATHY [id number] 11/22/2015 13:05:00 15:33:00 DIS Emergency MARY HERRING DO [facility] ER FALL, NOSE INJ, LEFT SH OULDER PAIN [id number] 05/10/2015 11:01:00 015 18:00:00 DIS Outpatient KADE GAO FACC, DANNIELLE CARDENAS CC DS [facility] CATH PULSE GENER ATOR CHANGE [id number] 03/21/2015 00:10:00 23:59:59 CLS Preadmit RONAK JOY DO [facility] REHAB [id number] 02/24/2015 08:27:00 00:01:00 DIS Outpatient JOY DO, RONAK [facility] REHAB L ARM WEAKNESS [id number] 09/09/2014 10:22:00 015 11:19:00 DIS Outpatient JOY DO, RONAK [facility] REHAB HAND THERAPY AFTER L SH OULDER FRACTURE [id number] 09/22/2014 12:22:00 015 14:35:00 DIS Inpatient JOY DO, RONAK V [facility] 4TH SWB--SEPSIS [id number] 09/09/2014 10:31:00 015 14:35:00 DIS Outpatient FRANCOIS PEARL [facility] REHAB L HUMERUS FX [id number] 09/19/2014 23:30:00 015 12:15:00 DIS Inpatient JOY DO, RONAK V [facility] ICU SEPSIS [id number] 08/16/2014 17:16:00 014 19:09:00 DIS Emergency HERNAN THIBODEAUX [facility] ER FALL,HEAD LAC [id number] 05/05/2014 11:50:00 014 16:03:00 DIS Inpatient BRIANA GAO, JOHANNA E [facility] IRF FALL, [id number] 05/03/2014 22:50:00 014 11:50:00 DIS Inpatient JOY DO, RONAK V [facility] CSD NEW SYNCOPE,LEFT PROXIM AL HUMERUS FX,CARDIAC DYSRH [id number] 04/29/2014 07:46:00 014 23:59:59 CLS Outpatient KADE GAO FACC, DANNIELLE SONGP CC DS [facility] CARD WEAKNESS, I SCHEMIC CARDIOMYOPATHY [id number] 02/22/2014 16:03:00 014 23:59:59 CLS Outpatient [id number] 07/06/2013 10:48:00 23:59:59 CLS Outpatient JOY DO RONAK [facility] RAD FALL,HIP,RIB PAIN,HEMAT URIA [id number] 09/07/2014 14:10:00 Document Registration [id number] 09/07/2014 14:09:00 Document Registration [id number] 11/20/2012 13:16:00 Document Registration [id number] 10/09/2012 14:21:00 Document Registration [id number] 10/03/2012 07:43:00 Document Registration [id number] 06/11/2012 13:01:00 Document Registration [id number] 12/27/2011 08:04:00 Document Registration [id number] 10/14/2011 11:59:00 Document Registration [id number] 04/25/2011 13:00:00 Document Registration [id number] 01/01/2011 15:40:00 Document Registration [id number] 10/12/2010 05:41:00 Document Registration [id number] 10/09/2010 07:46:00 Document Registration [id number] 09/01/2010 20:38:00 Document Registration [id number] 04/03/2010 12:01:00 Document Registration [id number] 03/07/2010 09:45:00 Document Registration [id number] 12/27/2009 10:52:00 Document Registration [id number] 12/26/2009 09:02:00 Document Registration [id number] 11/01/2009 08:11:00 Document Registration [id number] 10/27/2009 15:46:00 Document Registration [id number] 10/27/2009 15:44:00 Document Registration [id number] 08/30/2009 12:29:00 Document Registration [id number] 07/15/2009 09:00:00 Document Registration [id number] 06/16/2009 14:36:00 Document Registration [id number] 05/13/2009 10:26:00 Document Registration
[2020-03-06 11:07] LABS: ALANINE AMINOTRANSFERASE 24 U/L (0-55); ALBUMIN 3.9 GM/DL (3.2-4.5); ALKALINE PHOSPHATASE 183 U/L (40-136); BILIRUBIN,TOTAL 0.3 MG/DL (0.1-1.0); BUN/CREATININE RATIO 14; CALCIUM 8.9 MG/DL (8.5-10.1); CARBON DIOXIDE 24 MMOL/L (21-32); CHLORIDE 104 MMOL/L (98-107); CREATININE SERUM 1.06 MG/DL (0.60-1.30); GFR ESTIMATED > 60; GLUCOSE 161 MG/DL (70-105); POTASSIUM 4.5 MMOL/L (3.6-5.0); SODIUM 139 MMOL/L (135-145); TOTAL PROTEIN 8.7 GM/DL (6.4-8.2)
[2020-03-06 11:13] LABS: FIBRIN DEGRADATION PRODUCTS 8.32 UG/ML (0.00-0.49); PROTHROMBIN TIME PATIENT 13.7 SEC (12.2-14.7)
[2020-03-06 11:18] LABS: ERYTHROCYTE SEDIMENTATION RATE 45 MM/HR (0-30)
--- NOTE | 2020-03-06 11:20 | NUR ---
DR AYERS TALKING TO ON THE PHONE.
[2020-03-06 11:22] LABS: ALLENS TEST Y; INSPIRED O2 50%; PATIENT TEMP 98.8; VENTILATOR YES
--- NOTE | 2020-03-06 11:29 | Diagnostic Imaging Report ---
Indication: Respiratory distress Single view of the chest shows the heart size to be upper normal. The vascularity is normal. There is prominence of the interstitium with no mass or alveolar infiltrate seen. There is no effusion or pneumothorax. Pacemaker is present. 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 IMPRESSION: Since the 02/18/2020 study there has developed mild interstitial infiltrates. This could be on the basis of mild fluid overload. Viral pneumonitis is a possibility. Recommend follow-up. Dictated by: Dictated on workstation # [id number]
[2020-03-06] MEDS: VANCOMYCIN INJECTION 750 MG in NS (IVPB) 250 ML IV SCH ×2 (11:43→12:41)
[2020-03-06] MEDS ORDERED: ENOXAPARIN 80 MG/0.8 ML (LOVENOX) SYR SC ONE (12:30)
[2020-03-06] MEDS ORDERED: NS 100 ML (IVPB) BAG IV ONE (13:30)
[2020-03-06] MEDS ORDERED: HOLD METFORMIN - RECEIVED CONTRAST 20 ML VIAL IV SCH (13:30)
[2020-03-06] MEDS ORDERED: IOHEXOL 350 MG/ML 100 ML (OMNIPAQUE 350) VIAL IV ONE (13:30)
[2020-03-06] MEDS ORDERED: CATHETER FLUSH 10 ML SYR IV PRN ×3 (13:30→15:45)
--- NOTE | 2020-03-06 13:53 | Diagnostic Imaging Report ---
PROCEDURE: CT angiography of the chest with contrast. TECHNIQUE: Multiple contiguous axial images were obtained through the chest after uneventful bolus administration of intravenous contrast. 3D reconstructed CTA MIP acquisitions were also performed. Auto Exposure Controls were utilized during the CT exam to meet ALARA standards for radiation dose reduction. INDICATION: Recently taken off of Coumadin. Hypoxic. Patchy right lower lobe infiltrate consistent with pneumonia. No consolidations are seen. There is no effusion or pneumothorax. There is no mediastinal mass or hemorrhage. There is pulmonary embolus in several 3rd and 4th order vessels at the right lung base posteriorly which were not present on the CTA from 12/25/2019. No other pulmonary embolus is evident. There is cardiomegaly with no failure. IMPRESSION: 1. There are small peripheral pulmonary emboli currently limited to 2 vessels in the left lower lobe posteriorly with no other pulmonary embolus evident. This is a change from 12/25/2019. 2. There has also developed a patchy right lower lobe infiltrate since the prior study. Dictated by: Dictated on workstation # [id number]
--- NOTE | 2020-03-06 14:18 | NUR ---
TALKED WITH ON PHONE ABOUT ADMISSION.
--- NOTE | 2020-03-06 14:22 | NUR ---
ATTEMPT TO CALL REPORT ET NURSE DID NOT ANSWER.
--- NOTE | 2020-03-06 14:43 | NUR ---
ATTEMPT TO CALL REPORT TO NURSE ET NURSE DID NOT ANSWER.
--- NOTE | 2020-03-06 15:19 | NUR ---
PHONE NUMBER [place] - [phone] CELL - [phone]
[2020-03-06] MEDS ORDERED: NS IV 1000 ML 1,000 ML ONE (15:22)
[2020-03-06] MEDS ORDERED: ONDANSETRON 4 MG/2 ML (SDV) Z0FRAN IV PRN (15:30)
[2020-03-06] MEDS ORDERED: ACETAMINOPHEN 500 MG TAB (TYLENOL) PO PRN (15:30)
--- NOTE | 2020-03-06 15:41 | NUR ---
CR 1.06; CR CL ~62; WT 81 KG; VANCO 1750 MG IV GIVEN IN ER; CONTINUE WITH VANCO 1000 MG IV Q12H X 3 DAYS
[2020-03-06 16:25] VITALS: BP 160/80
[2020-03-06] MEDS: NS IV 1000 ML 1,000 ML IV SCH (16:25)
[2020-03-06 16:49] VITALS: BP 144/74
[2020-03-06] MEDS ORDERED: warFARin 7.5 MG (COUMADIN) TAB PO SCH (18:00)
[2020-03-06 18:03] LABS: ALANINE AMINOTRANSFERASE 21 U/L (0-55); ALBUMIN 3.3 GM/DL (3.2-4.5); ALKALINE PHOSPHATASE 158 U/L (40-136); BILIRUBIN,TOTAL 0.3 MG/DL (0.1-1.0); BUN/CREATININE RATIO 15; CALCIUM 7.9 MG/DL (8.5-10.1); CARBON DIOXIDE 21 MMOL/L (21-32); CHLORIDE 109 MMOL/L (98-107); CREATININE SERUM 0.78 MG/DL (0.60-1.30); GFR ESTIMATED > 60; GLUCOSE 97 MG/DL (70-105); POTASSIUM 4.4 MMOL/L (3.6-5.0); SODIUM 139 MMOL/L (135-145); TOTAL PROTEIN 7.3 GM/DL (6.4-8.2)
[2020-03-06] MEDS: ADVAIR HFA 115/21 MCG INHALER 8 GM IH SCH (19:01)
[2020-03-06 20:00] VITALS: BP 164/74
[2020-03-06] MEDS: CEFEPIME 1,000 MG/SWFI 10 ML IV PUSH IV SCH ×2 (20:26)
[2020-03-06] MEDS: PHENobarbital 64.8 MG (1 GRAIN) TAb PO SCH (20:27)
[2020-03-06] MEDS: PHENYTOIN 100 MG (DILANTIN) CAP PO SCH (20:27)
[2020-03-07] MEDS: CEFEPIME 1,000 MG/SWFI 10 ML IV PUSH IV SCH ×6 (00:17→13:32)
[2020-03-07] MEDS: ENOXAPARIN 80 MG/0.8 ML (LOVENOX) SYR SC SCH ×2 (00:17→13:32)
[2020-03-07 00:27] VITALS: BP 138/70
[2020-03-07] MEDS ORDERED: VANCOMYCIN 1 GM/NS 250 ML IVPB IV SCH ×2 (01:00)
[2020-03-07 03:48] LABS: BASOPHILS % (AUTO) 0 % (0-10); EOSINOPHILS # (AUTO) 0.2 10^3/uL (0.0-0.3); EOSINOPHILS % (AUTO) 2 % (0-10); HEMATOCRIT 34 % (40-54); HEMOGLOBIN 11.3 G/DL (13.3-17.7); LYMPHOCYTES % (AUTO) 15 % (12-44); MEAN CORPUSCULAR HEMOGLOBIN 33 PG (25-34); MEAN CORPUSCULAR HGB CONC 33 G/DL (32-36); MEAN CORPUSCULAR VOLUME 98 FL (80-99); MEAN PLATELET VOLUME 10.1 FL (7.4-10.4); MONOCYTES # (AUTO) 0.8 X 10^3 (0.0-1.0); MONOCYTES % (AUTO) 12 % (0-12); NEUTROPHILS % (AUTO) 71 % (42-75); PLATELET COUNT 142 10^3/uL (130-400); RED CELL DISTRIBUTION WIDTH 14.2 % (10.0-14.5)
[2020-03-07 04:00] VITALS: BP 146/66
[2020-03-07 04:02] LABS: CHLORIDE 108 MMOL/L (98-107); POTASSIUM 4.1 MMOL/L (3.6-5.0); SODIUM 140 MMOL/L (135-145)
[2020-03-07 04:03] LABS: CALCIUM 8.2 MG/DL (8.5-10.1)
[2020-03-07 04:04] LABS: GLUCOSE 83 MG/DL (70-105)
[2020-03-07 04:05] LABS: CARBON DIOXIDE 22 MMOL/L (21-32)
[2020-03-07 04:07] LABS: PHOSPHORUS 2.5 MG/DL (2.3-4.7)
[2020-03-07 04:08] LABS: BUN/CREATININE RATIO 18; CREATININE SERUM 0.84 MG/DL (0.60-1.30); GFR ESTIMATED > 60
[2020-03-07 04:28] LABS: INR 1.3 (0.8-1.4); PROTHROMBIN TIME PATIENT 16.6 SEC (12.2-14.7)
[2020-03-07] MEDS: NS IV 1000 ML 1,000 ML IV SCH ×3 (04:52→13:31)
[2020-03-07] MEDS: LEVOTHYROXINE 75 MCG (LEVOTHROID) TABLET PO SCH (05:25)
[2020-03-07] MEDS: ADVAIR HFA 115/21 MCG INHALER 8 GM IH SCH ×2 (07:42→18:39)
[2020-03-07 08:00] VITALS: BP 135/73
--- NOTE | 2020-03-07 08:53 | Occ Therapy Progress Note ---
Therapy Progress Note OT order received. Chart reviewed. OT attempted to see pt. Pt. sleeping soundly with bipap on. Will attempt back later. 0853 1, visit KEVIN GREEN OT Mar 07, 2020 08:53
[2020-03-07] MEDS: meTOproloL SUCCINATE 50 MG (TOPROL XL) TAB PO SCH (10:00)
[2020-03-07] MEDS: lisINopril 5 MG (PRINIVIL) TABLET PO SCH (10:00)
[2020-03-07] MEDS: PHENYTOIN 100 MG (DILANTIN) CAP PO SCH ×2 (10:00→20:11)
--- NOTE | 2020-03-07 10:03 | Physical Therapy Evaluation ---
PT Evaluation-General Medical Diagnosis Admission Date Mar 06, 2020 at 14:00 Medical Diagnosis: ARF with hypoxia Onset Date: Mar 06, 2020 Therapy Diagnosis Therapy Diagnosis: generalized weakness/debility Height/Weight Height (Feet): 6 Height (Inches): 0 Weight (Pounds): 187 Weight (Ounces): 0.0 Precautions Precautions/Isolations: Droplet Isolation, Fall Prevention, Standard Precauti ons Weight Bear Status Right Lower Extremity: Right Weight Bearing/Tolerated Left Lower Extremity: Left Weight Bearing/Tolerated Referral Physician: Jorge Luis Reason for Referral: Evaluation/Treatment Medical History Pertinent Medical History: CABG, CAD, COPD, CVA, Heart Failure, HTN, Neuropathy, PVD, Renal Insufficiency Additional Medical History CPap at home for COPD Current History EMS from home secondary to SOA/recent dismissal from [place] (home for 2 days) Reviewed History: Yes Social History Home: Single Level Current Living Status: Spouse Prior Prior Level of Function SCALE: Activities may be completed with or without assistive devices. 9-Oahsbmigxr-ngtqdul completes the activity by him/herself with no assistance from a helper. 5-Set-up or Clean-up Assistance-helper sets up or cleans up; patient completes activity. [place]comb assists only prior to or following the activity. 4-Supervision or Touching Assistance-helper provides verbal cues and/or touchin g/steadying and/or contact guard assistance as patient completes activity. Assistance may be provided throughout the activity or intermittently. 3-Partial/Moderate Assistance-helper does LESS THAN HALF the effort. Newcomb lifts, holds or supports trunk or limbs, but provides less than half the effort. 2-Substantial/Maximal Assistance-helper does MORE THAN HALF the effort. Newcomb lifts or holds trunk or limbs and provides more than half the effort. 9-Hrgzaepuq-smaejv does ALL the effort. Patient does none of the effort to complete the activity. Or, the assistance of 2 or more helpers is required for the patient to complete the activity. If activity was not attempted, code reason: 7-Patient Refused. 9-Not Applicable-not attempted and the patient did not perform the activity before the current illness, exacerbation or injury. 10-Not Attempted due to Environmental Limitations-(lack of equipment, weather restraints, etc.). 88-Not Attempted due to Medical Conditions or Safety Concerns. Bed Mobility: 4 Transfers (B,C,W/C): 4 Gait: 4 Indoor Mobility (Ambulation): Needed Some Help Prior Devices Use: Walker (left platform FWW ) PT Evaluation-Current Subjective Patient on BiPap and agrees to PT. Pain Numeric Pain Scale: 0-No Pain Location: No Pain Reported Objective Patient Orientation: Person, Time, Situation Attachments: Oxygen, Manzano Catheter, IV ROM/Strength ROM Lower Extremities bilateral LE WFL Strength Lower Extremities 3+/5 right LE/3/5 grossly left LE Integumentary/Posture Integumentary refer to nursing notes Bladder Incontinence: Manzano Cath Posture slightly kyphotic Neuromuscular (Tone, Coordination, Reflexes) slightly diminished Sensory Vision: Wears Glasses Hearing: Impaired Sensation Right Lower Extremit: Impaired Sensation Left Lower Extremity: Impaired Transfers Roll Left to Right (QC): 5 Sit to Lying (QC): 4 Lying to Sitting/Side of Bed(Q: 4 Sit to Stand (QC): 4 Gait Does the Patient Walk?: No and Walking Goal IS indicated Mode of Locomotion: Both Anticipated Mode of Locomotion: Both Gait Assistive Device: Walker Platform (Left) Balance Sitting Static: Normal Sitting Dynamic: Normal Standing Static: Fair Standing Dynamic: Fair Assessment/Needs 79 y.o. male, will be seen short term by skilled PT to address functional strength and mobility. Patient is currently limited by BiPap use. Rehab Potential: Fair PT Senior Care Goals [employer] Goals PT Senior Care Goals Time Frame: Mar 19, 2020 Roll Left & Right (QC): 5 Sit to Lying (QC): 5 Lying-Sitting on Side/Bed(QC): 5 Sit to Stand (QC): 5 Chair/Hxy-ew-Hiecf Xfer(QC): 5 Toilet Transfer (QC): 5 Does the Patient Walk: Yes Walk 10 feet (QC): 5 Walk 50ft with 2 Turns (QC): 5 PT Plan Problem List Problem List: Activity Tolerance, Functional Strength, Safety, Balance, Gait, Transfer, Bed Mobility Treatment/Plan Treatment Plan: Continue Plan of Care Treatment Plan: Bed Mobility, Education, Functional Activity Drew, Functional Strength, Gait, Safety, Therapeutic Exercise, Transfers Treatment Duration: Mar 19, 2020 Frequency: 6 times per week Estimated Hrs Per Day: .25 hour per day (to .5) Patient and/or Family Agrees t: Yes Time/GCodes Time In: 850 Time Out: 901 Total Billed Treatment Time: 11 Total Billed Treatment 1 visit EVModC 11 min VITOR MADRIGAL PT Mar 07, 2020 10:03
--- NOTE | 2020-03-07 10:23 | Consultation-Cardiology ---
HPI-Cardiology Cardiology Consultation Date of Consultation 03/07/20 Date of Admission Time Seen by Provider: 10:23 Indication: CAD, elevated troponin HPI Patient is an 79 y/o male with history of CAD, ischemic cardiomyopathy, acute on chronic respiratory failure, PE. Has had recent hospitalizations over the past 3months for respiratory failure, PE. C/o increasing shortness of breath at home over the weekend. Reports episode of chest pain with deep inspiration, denies any active chest pain at this time. 79-year-old gentleman with history of coronary artery disease, congestive heart failure, chronic compensated left ventricular systolic dysfunction, ischemic cardiomyopathy, history of pulmonary embolism, admitted with increasing shortness of breath, currently on BiPAP, poor historian, I was unable to obtain from the history from the patient, history was obtained by reviewing his records. Denied any chest pain, no syncope. Has been having multiple hospitalization for increasing shortness of breath, COPD exacerbation. PE Home Medications & Allergies Allergies: Coded Allergies: amiodarone (Verified Allergy, Severe, 03/13/19) lorazepam (Verified Allergy, Unknown, 03/13/19) scopolamine (Verified Allergy, Unknown, 03/13/19) IXY-Aaygmd-Qchvmp Hx Patient Social History Alcohol Use: Denies Use Recreational Drug Use: No Smoking Status: Former Smoker Former smoker/When Quit: May 10, 1989 Type Used: Cigarettes 2nd Hand Smoke Exposure: No Recent Foreign Travel: No Recent Infectious Disease Expo: No Recent Hopitalizations: No Immunizations Up To Date Tetanus Booster (TDap): Less than 5yrs Date of Pneumonia Vaccine: January 20, 2015 Date of Influenza Vaccine: May 10, 2019 Past Medical History CAD, CHF, chronic respiratory failure, HTN, HLP, PE Family Medical History Significant Family History: No Pertinent Family Hx Family History: Arthritis 19 MOTHER, Cardiovascular disease G8 BROTHER, G8 BROTHER, , Age:67 G8 BROTHER G8 SISTER Cataracts G8 BROTHER, , Age:67 G8 BROTHER Completed stroke 19 MOTHER, Deafness or hearing loss G8 BROTHER G8 BROTHER Diabetes mellitus G8 SISTER Headache disorder 19 FATHER, 19 MOTHER, G8 BROTHER, G8 BROTHER, , Age:67 G8 BROTHER G8 BROTHER G8 SISTER Hypercholesterolemia G8 BROTHER, , Age:67 G8 BROTHER G8 BROTHER G8 SISTER Hypertension 19 MOTHER, G8 BROTHER G8 SISTER Myocardial infarction G8 BROTHER, , Age:67 G8 BROTHER G8 SISTER Respiratory disorder G8 BROTHER, Thyroid disease G8 SISTER No Family History of: AIDS Abdominal aortic aneurysm Shreyas's disease Alcoholism Alzheimer's disease Aphasia Asthma Cancer of mouth Colon cancer Congenital disease Congenital heart disease Cystic fibrosis Dementia Drug abuse Dysphasia Fibrocystic disease of breast Gastroenteritis Glaucoma Infertility Kidney disease Neoplasm Not obtainable due to adoption Osteoporosis Parkinson's disease Prostate cancer Psychosocial problem Seizure disorder Severe allergy Tuberculosis Visual disorder Review of Systems-General Review of Systems Constitutional: see HPI; No chills, No fever; malaise, weakness EENTM: see HPI; No ear discharge, No hearing loss, No ear pain Respiratory: cough, dyspnea on exertion; No orthopnea, No phlegm; short of breath, wheezing Cardiovascular: No chest pain, No edema; Hx of Intervention; No palpitations; vascular heart diseas Gastrointestinal: No abdominal pain, No constipation, No diarrhea, No nausea Genitourinary: No discharge, No dysuria Musculoskeletal: No back pain, No joint pain All Other Systems Reviewed Negative Unless Noted: Yes Reviewed Test Results Reviewed Test Results Lab Laboratory Tests 03/06/20 17:30: Sodium Level 139, Potassium Level 4.4, Chloride Level 109H, Carbon Dioxide Level 21, Anion Gap 9, Blood Urea Nitrogen 12, Creatinine 0.78, Estimat Glomerular Filtration Rate > 60, BUN/Creatinine Ratio 15, Glucose Level 97, Calcium Level 7.9L, Corrected Calcium 8.5, Total Bilirubin 0.3, Aspartate Amino Transf (AST/SGOT) 21, Alanine Aminotransferase (ALT/SGPT) 21, Alkaline Phosphatase 158H , Troponin I 0.119H, Total Protein 7.3, Albumin 3.3 03/06/20 22:00: Troponin I 0.126H 03/07/20 03:30: Sodium Level 140, Potassium Level 4.1, Chloride Level 108H, Carbon Dioxide Level 22, Anion Gap 10, Blood Urea Nitrogen 15, Creatinine 0.84, Estimat Glomerular Filtration Rate > 60, BUN/Creatinine Ratio 18, Glucose Level 83, Calcium Level 8.2L, White Blood Count 7.0, Red Blood Count 3.48L, Hemoglobin 11.3L, Hematocrit 34L, Mean Corpuscular Volume 98, Mean Corpuscular Hemoglobin 33, Mean Corpuscular Hemoglobin Concent 33, Red Cell Distribution Width 14.2, Platelet Count 142, Mean Platelet Volume 10.1, Neutrophils (%) (Auto) 71, Lymphocytes (%) (Auto) 15, Monocytes (%) (Auto) 12, Eosinophils (%) (Auto) 2, Basophils (%) (Auto) 0, Neutrophils # (Auto) 5.0, Lymphocytes # (Auto) 1.0, Monocytes # (Auto) 0.8, Eosinophils # (Auto) 0.2, Basophils # (Auto) 0.0, Prothrombin Time 16.6H, INR Comment 1.3, Phosphorus Level 2.5, Magnesium Level 2.0, Procalcitonin 0.11H ECG Impression ECG Initial ECG Rhythm: Normal Sinus Initial ECG Intervals LBBB Physical Exam Physical Exam Vital Signs Vital Signs - First Documented 03/06/20 03/06/20 03/06/20 09:51 11:19 16:25 Temp 37.1 Pulse 101 Resp 16 B/P (MAP) 154/76 (102) Pulse Ox 96 O2 Delivery OxyMask O2 Flow Rate 50.00 FiO2 30 Capillary Refill : Less Than 3 Seconds Height, Weight, BMI Height: 6'0" Weight: 187lbs. 0.0oz. 84.205156zh; 21.30 BMI Method:Stated General Appearance: Mild Distress Eyes: Bilateral Eye Normal Inspection, Bilateral Eye PERRL, Bilateral Eye EOMI HEENT: PERRL/EOMI, Normal ENT Inspection Respiratory: No Accessory Muscle Use, Expiration, Respiratory Distress (mod), Wheezing Cardiovascular: Regular Rate, Rhythm, No Edema, Normal Peripheral Pulses Gastrointestinal: Non Tender, Soft Back: No CVA Tenderness Extremity: Non Tender, No Calf Tenderness Neurologic/Psychiatric: Alert, Oriented x3 A/P-Cardiology Admission Diagnosis Acute on chronic respiratory failure PE NSTEMI CAD Ischemic cardiomyopathy Assessment/Plan Acute on chronic respiratory failure, currently on BiPAP, medical services managing. PE, diagnosed December 2019, continue on Coumadin, continue Lovenox until INR therapeutic. NSTEMI, complaining of some chest pain over the weekend, patient reports pain worse with deep inspiration. No acute ST changes, troponin mildly elevated. Likely Type II ND secondary to hypoxemia Coronary artery disease with a history of coronary artery bypass surgery several years ago. Last cardiac catheterization was in December 2009. It showed severe [place] coronary artery disease, including mid-vessel occlusion of the right coronary and the left circumflex and severe stenosis in the mid left anterior descending artery. There was patent saphenous vein graft to distal right coronary, patent saphenous vein graft to obtuse marginal, patent left internal mammary artery graft to mid left anterior descending artery. He underwent successful percutaneous intervention and stenting to the proximal and mid right coronary artery and a large right ventricular branch with drug-eluting stents (Promus 2.5 x 12 and Promus 2.5 x 23 proximal to distal, slightly overlapping). Since his coronary stenting of December 2009, he has not had any recurrence of angina pectoris. Last stress test December 2018 showed inferior and lateral wall myocardial infarctions without significant ischemia. Marked cardiomegaly. Inferior and lateral wall akinesis. Global hypokinesis. LVEF 8% Ischemic cardiomyopathy with varied LVEF of 8-30% by various measurements over the course of the last several years. Echo 11/03/19 marked enlargement of LV, mod enlargement of LA, LVEF 20-25%, mod MR & TR RVSP approx 43 mmHg. Defibrillator implantation for prophylaxis against sudden cardiac . ICD discharge occurred on 04/12/14 at 2:24 am to treat VF. None since. Device is functioning normally. It reached VI on Apr 14, 2015 and was replaced on 05/10/15. It is functioning normally per interrogation of 08/12/19 Intolerance to Amiodarone d/t dizziness/weakness when taking this medication per patient and spouse. He refuses therapy with antiarrhythmics, including a miodarone Hyperlipidemia, continue to monitor. 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 EEG per September 21, 2014 by Rossana Tyson was abnormal, but without clear epileptiform activity (done during a hospitalization of Sep 2014 at [facility] and requested by Dr Barrientos). Carotid arterial stenosis, approx 50% R ICA stenosis, less than 40% L ICA stenosis per u/s of September 2019 Gastroesophageal reflux. History of mildly elevated alkaline phosphatase followed by his family physcian. H/o intermittent AST/ALT elevation, possibly due to statin therapy. Reactive airways disease. Nocturnal hypoxemia, but no MAGUI on sleep studies of a few years ago Chronic back pain Thank you for allowing us to participate in the management of Mr. Reddy. This is Aria Carmona PA-C, as a scribe for Dr. Moreland. Clinical Quality Measures DVT/VTE Risk/Contraindication: Risk Factor Score Per Nursin RFS Level Per Nursing on Admit: 4+=Very High ARIA COYLE Mar 07, 2020 10:23 am MARIBEL MORELAND MD Mar 07, 2020 11:45 am
[2020-03-07 12:00] VITALS: BP 137/63
[2020-03-07] MEDS: DIGOXIN 0.25 MG (LANOXIN) TAB PO SCH (13:32)
--- NOTE | 2020-03-07 13:48 | History & Physical-Hospitalist ---
History of Present Illness HPI/Chief Complaint Nirav Reddy is an 79-year-old male with past medical history of hypertension, hyperlipidemia, coronary artery disease, COPD, chronic hypoxic respiratory failure, heart failure, seizure disorder, hypothyroidism, pulmonary embolism, who presented with shortness of breath. He reports worsening of his shortness of breath over the weekend. He reports some pleuritic chest pain. He denies any fevers or chills. He denies any cough. He denies any abdominal pain, nausea, or vomiting. He denies any diarrhea or constipation. He has no other complaints or concerns. Source: patient Exam Limitations: no limitations Date Seen 03/07/20 Time Seen by a Provider: 09:30 Attending Physician Cali Buckley MD PCP Brendon Trejo MD Referring Physician Date of Admission Mar 06, 2020 at 14:00 Home Medications & Allergies Home Medications Reviewed patient Home Medication Reconciliation performed by pharmacy medication reconciliations forest ranger technician and/or nursing. Patients Allergies have been reviewed. Allergies Allergies Coded Allergies amiodarone (Verified Allergy, Severe, 03/13/19) lorazepam (Verified Allergy, Unknown, 03/13/19) scopolamine (Verified Allergy, Unknown, 03/13/19) Past Grrojsj-Dpsspg-Zctnmy Hx Past Med/Social Hx: Reviewed Nursing Past Med/Soc Hx Patient Social History Alcohol Use: Denies Use Recreational Drug Use: No Smoking Status: Former Smoker Former Smoker, Quit: Jan 31, 1990 Type Used: Cigarettes 2nd Hand Smoke Exposure: No Recent Foreign Travel: No Contact w/other who traveled: No Recent Hopitalizations: No Recent Infectious Disease Expo: No Immunizations Up To Date Tetanus Booster (TDap): Less than 5yrs Pediatric: Yes Date of Pneumonia Vaccine: January 20, 2015 Date of Influenza Vaccine: May 10, 2019 Seasonal Allergies Seasonal Allergies: Yes Past Medical History Surgeries: Cardiac, CABG, Coronary Stent, Defibrillator, Eye Surgery, Pacemaker Respiratory: Chronic Bronchitis, COPD, Emphysema, Pneumonia Currently Using CPAP: No Currently Using BIPAP: No Cardiac: Cardiomyopathy, Coronary Artery Disease, High Cholesterol, Hypertension, Peripheral Vascular Neurological: Neuropathy, Seizure Disorder, Stroke Reproductive: No Sexually Transmitted Disease: No Genitourinary: Bladder Infection, Renal Failure Gastrointestinal: Abdominal Hernia Musculoskeletal: Degenerate Disk Disease, Arthritis, Chronic Back Pain, Fractures Endocrine: Hypothyroidsim HEENT: Cataract Hearing Impairment: Hard of Hearing Cancer: Skin Did You Recieve Any Treatments: Yes What Type of Treatment Did You: Surgical Intervention Psychosocial: Depression History of Blood Disorders: No Adverse Reaction to Blood Yanes: No Family History Arthritis 19 MOTHER, Cardiovascular disease G8 BROTHER, G8 BROTHER, , Age:67 G8 BROTHER G8 SISTER Cataracts G8 BROTHER, , Age:67 G8 BROTHER Completed stroke 19 MOTHER, Deafness or hearing loss G8 BROTHER G8 BROTHER Diabetes mellitus G8 SISTER Headache disorder 19 FATHER, 19 MOTHER, G8 BROTHER, G8 BROTHER, , Age:67 G8 BROTHER G8 BROTHER G8 SISTER Hypercholesterolemia G8 BROTHER, , Age:67 G8 BROTHER G8 BROTHER G8 SISTER Hypertension 19 MOTHER, G8 BROTHER G8 SISTER Myocardial infarction G8 BROTHER, , Age:67 G8 BROTHER G8 SISTER Respiratory disorder G8 BROTHER, Thyroid disease G8 SISTER No Family History of: AIDS Abdominal aortic aneurysm Gaines's disease Alcoholism Alzheimer's disease Aphasia Asthma Cancer of mouth Colon cancer Congenital disease Congenital heart disease Cystic fibrosis Dementia Drug abuse Dysphasia Fibrocystic disease of breast Gastroenteritis Glaucoma Infertility Kidney disease Neoplasm Not obtainable due to adoption Osteoporosis Parkinson's disease Prostate cancer Psychosocial problem Seizure disorder Severe allergy Tuberculosis Visual disorder No Pertinent Family Hx PSH: -HERNIA REPAIR 1977 -3 VESSEL CABG 1990--DR. WESTON -BRAIN BIOPSY ON RIGHT 1990 -DEFIBRILLATOR/PACEMAKER 1997, WITH REPLACEMENTS--LAST REPLACEMENT 05/10/15 -ORAL SURGERY 1998 -LEFT EYE SURGERY TO REMOVE PTERYGIUM 1999 -RIGHT EYE SURGERY TO REMOVE PTERYGIUM 2012 -CARDIAC CATHS--2 STENTS 2009 -BRONCHOSCOPY -COLONOSCOPY -SKIN CANCER REMOVED - ADDITIONAL PMH: -MULTIPLE ADMITS FOR COPD AND PNEUMONIA, WITH RESPIRATORY FAILURE AND HAS BEEN INTUBATED IN 2013-HAD PNEUMONIA, INFLUENZA B AND CHF, THEN MOST RECENTLY ADMITTED 11/02/19-11/15 WITH PNEUMONIA/RESPIRATORY FAILURE AND INFLUENZA B AND CHG-NO INTUBATION. Review of Systems Constitutional: no symptoms reported EENTM: no symptoms reported Respiratory: short of breath Cardiovascular: chest pain Gastrointestinal: no symptoms reported Genitourinary: no symptoms reported Musculoskeletal: no symptoms reported Skin: no symptoms reported Psychiatric/Neurological: No Symptoms Reported Physical Exam Physical Exam Vital Signs Vital Signs - First Documented 03/06/20 03/06/20 03/06/20 09:51 11:19 16:25 Temp 37.1 Pulse 101 Resp 16 B/P (MAP) 154/76 (102) Pulse Ox 96 O2 Delivery OxyMask O2 Flow Rate 50.00 FiO2 30 Capillary Refill : Less Than 3 Seconds Height, Weight, BMI Height: 6'0" Weight: 187lbs. 0.0oz. [id number]; 21.30 BMI Method:Stated General Appearance: Chronically ill, Other (Wearing BiPAP) HEENT: PERRL/EOMI, Other (BiPAP mask in place) Neck: Normal Inspection, Supple Respiratory: Lungs Clear, No Respiratory Distress, Decreased Breath Sounds, Other (Wearing BiPAP) Cardiovascular: Regular Rate, Rhythm, No Edema, No Murmur Gastrointestinal: Normal Bowel Sounds, Non Tender, Soft Extremity: Normal Inspection, Non Tender, No Pedal Edema Neurologic/Psychiatric: Alert, Oriented x3, No Motor/Sensory Deficits, Normal Mood/Affect Skin: Normal Color, Warm/Dry Results Results/Procedures Labs Laboratory Tests 03/06/20 10:00 03/06/20 17:30 03/07/20 03:30 Patient resulted labs reviewed. Imaging: Reviewed Imaging Report Assessment/Plan Admission Diagnosis Acute on chronic respiratory failure with hypoxia Admission Status: Inpatient Order (span 2 midnights) Reason for Inpatient Admission: Respiratory failure requiring BiPAP Assessment and Plan Acute on chronic respiratory failure with hypoxia Pulmonary embolism Possible pneumonia COPD with acute exacerbation NSTEMI Chronic HFpEF Requiring increasing levels of supplemental oxygen Started on BiPAP BNP 274 D-dimer elevated at 8.32 Blood thinners held recently for procedure CT scan showed peripheral pulmonary emboli and right lower lobe consolidation Started on Lovenox for pulmonary embolism, Coumadin resumed Started on vancomycin and Zosyn for pneumonia Procalcitonin 0.05 on arrival, repeat 0.11 this morning Discontinue vancomycin Discontinue cefepime Transition to Rocephin for possible pneumonia Begin prednisone Troponin mildly elevated at 0.12 Cardiology consulted, appreciate assistance Hypertension Hyperlipidemia CAD Seizure disorder Hypothyroidism Continue home meds DVT prophylaxis: Already receiving therapeutic anticoagulation Diagnosis/Problems Diagnosis/Problems (1) Acute on chronic respiratory failure with hypoxia Status: Acute (2) COPD with exacerbation Status: Acute (3) NSTEMI (non-ST elevation myocardial infarction) Status: Acute (4) Pneumonia Status: Acute Qualifiers: Pneumonia type: due to unspecified organism Laterality: bilateral Lung location: lower lobe of lung Qualified Codes: J18.1 - Lobar pneumonia, unspecified organism (5) Pulmonary emboli Status: Acute Qualifiers: Pulmonary embolism type: multiple subsegmental (without acute cor pulmonale) Qualified Codes: I26.94 - Multiple subsegmental pulmonary emboli without acute cor pulmonale Clinical Quality Measures DVT/VTE Risk/Contraindication: Risk Factor Score Per Nursin RFS Level Per Nursing on Admit: 4+=Very High CALI BUCKLEY MD Mar 07, 2020 13:48
[2020-03-07] MEDS ORDERED: predniSONE 20 MG TAB PO NR (14:00)
[2020-03-07] MEDS ORDERED: cefTRIAXone FOR IV USE 2,000 MG in WATER (STERILE) FOR INJECTION 20 ML IV SCH (14:15)
--- NOTE | 2020-03-07 15:22 | Occupational Therapy Eval ---
OT Evaluation-General/PLF Medical Diagnosis Admission Date Mar 06, 2020 at 14:00 Medical Diagnosis: ARF with hypoxia Onset Date: Mar 06, 2020 Therapy Diagnosis Therapy Diagnosis: Weakness, decreased ADL skills Height/Weight Height (Feet): 6 Height (Inches): 0 Weight (Pounds): 187 Weight (Ounces): 0.0 Precautions Precautions/Isolations: Droplet Isolation, Fall Prevention, Standard Pre cautions Referral Physician: Jorge Luis Referral Reason: Activity Tolerance, Self Care, Evaluation/Treatment, Strengthening/ROM Medical History Pertinent Medical History: CABG, CAD, COPD, CVA, Heart Failure, HTN, Neuropathy, PVD, Renal Insufficiency Additional Medical History Pacemaker, Back surgery, Resection of Left forearm tumor. Current History Pt. came to ER with SOA via EMS. Suspected pneumonia with sepsis. Reviewed History: Yes Social History Home: Single Level Current Living Status: Spouse Entry Into Home: Level Entry ADL-Prior Level of Function SCALE: Activities may be completed with or without assistive devices. 6-Tjwksuleze-heoxltf completes the activity by him/herself with no assistance from a helper. 5-Set-up or Clean-up Assistance-helper sets up or cleans up; patient completes activity. [place] assists only prior to or following the activity. 4-Supervision or Touching Assistance-helper provides verbal cues and/or touching/steadying and/or contact guard assistance as patient completes activity. Assistance may be provided throughout the activity or intermittently. 3-Partial/Moderate Assistance-helper does LESS THAN HALF the effort. [place] lifts, holds or supports trunk or limbs, but provides less than half the effort. 2-Substantial/Maximal Assistance-helper does MORE THAN HALF the effort. [place] lifts or holds trunk or limbs and provides more than half the effort. 5-Qwkjxcifz-qyxxps does ALL the effort. Patient does none of the effort to complete the activity. Or, the assistance of 2 or more helpers is required for the patient to complete the activity. If activity was not attempted, code reason: 7-Patient Refused. 9-Not Applicable-not attempted and the patient did not perform the activity before the current illness, exacerbation or injury. 10-Not Attempted due to Environmental Limitations-(lack of equipment, weather restraints, etc.). 88-Not Attempted due to Medical Conditions or Safety Concerns. ADL PLOF Comments Pt. wears oxygen at home as well as CPAP. Pt. lives with spouse who is supportive. Pt. has caregiving assistance for ADLs such as bathing/dressing. Self Care: Needed Some Help Functional Cognition: Needed Some Help DME/Equipment: Bath Chair, Shower DME/Equipment Comments Platform walker Drive Self: No OT Current Status Subjective Pt. does not report pain but reports feeling very SOA when OT entered room. Noted 02 canula off nose. OT replaced canula and took 02 sats. Sats at 91%. Pt. still having difficulty with air and nursing notified. Nursing changed oxygen from 2 L-5 L. Appearance Pt. in bed. Pt. has dressing on left forearm due to recent removal of tumor. Wound had bled through dressing and pt. had blood on gown, sheet, and bed square. Notified nursing. Mental Status/Objective Patient Orientation: Person, Place Attachments: Manzano Catheter, IV, Oxygen, Telemetry Current Upper Extremity ROM Impaired in left UE. Approximately 90 degrees at shoulder level right UE. Pt. demonstrates impaired fine motor coordination, movement, and strength in left UE due to past CVA. ADL-Treatment On/Off Footwear (QC): 1 Other Treatments Noted bed sheets wet from leakage of bandage. Nursing notified for bandage. OT wrapped towels around left forearm so as to slow down bleeding. Pt. transferred supine-sit with min assist. Able to scoot to EOB with min assist. OT changed pt's gown while pt. sitting on side of bed. Pt. able to transfers with mod assist, sit-stand, and then maintain standing balance with min assist at walker level while bed was changed by student OT. Pt. able to take several steps toward HOB with min assist and transfer back to sitting with min assist. Pt. able to get bilateral LE into bed and transferred sit-supine with SBA. All needs met and SCDs replaced. Call light within reach and nursing to come back to change dressing. Education OT Patient Education: Correct positioning, Modified ADL techniques, Progress toward Goal/Update tx plan, Purpose of tx/functional activities, Reviewed precautions, Rehab process, Transfer techniques Teaching Recipient: Patient Teaching Methods: Demonstration, Discussion Response to Teaching: Verbalize Understanding, Return Demonstration, Reinforcement Needed OT Short Term Goals Short Term Goals Time Frame: Mar 14, 2020 Eatin Toileting hygiene: 3 (Mod assist) Upper body dressin (Mod assist) OT Custodial Goals Industrial Machine Assembler Goals Time Frame: Mar 21, 2020 Eating (QC): 6 Toileting Hygiene (QC): 4 Upper Body Dressing (QC): 4 Additional Goals: 1-Demonstrate ADL Tasks, 2-Verbalize Understanding, 3- ImproveStrength/Drew 1=Demonstrate adherence to instructed precautions during ADL tasks. 2=Patient will verbalize/demonstrate understanding of assistive devices/modifications for ADL. 3=Patient will improve strength/tolerance for activity to enable patient to perform ADL's. Pt. will demonstrate ability to transfer supine-sit, and sit-stand with SBA for functional ADL activities. OT Education/Plan Problem List/Assessment Assessment: Decreased Activ Tolerance, Decreased UE Strength, Dependent Transfers, Edema (Edema in right UE), Impaired Bed Mobility, Impaired Cognition, Impaired Coordination, Impaired Funct Balance, Impaired I ADL's, Impaired Self- Care Skills, Restricted Funct UE ROM Discharge Recommendations Plan/Recommendations: Continue POC Therapy Discharge Recommendati: Post Acute OT Treatment Plan/Plan of Care Treatment,Training & Education: Yes Patient would benefit from OT for education, treatment and training to promote independence in ADL's, mobility, safety and/or upper extremity function for ADL's. Plan of Care: ADL Retraining, Functional Mobility, UE Funct Exercise/Act Treatment Duration: Mar 21, 2020 Frequency: 5 times per week Estimated Hrs Per Day: .25 hour per day Agreement: Yes Rehab Potential: Fair Time/GCodes Start Time: 14:35 Stop Time: 14:58 Total Time Billed (hr/min): 23 Billed Treatment Time 1, EVH x 10minutes, ADL x 13minutes KEVIN GREEN OT Mar 07, 2020 15:22
[2020-03-07 16:00] VITALS: BP 180/73
[2020-03-07] MEDS ORDERED: ONDANSETRON 4 MG/2 ML (SDV) Z0FRAN IV PRN (16:45)
[2020-03-07] MEDS ORDERED: ACETAMINOPHEN 325 MG TABLET PO PRN (16:45)
[2020-03-07] MEDS ORDERED: hydrALAZINE (APESOLINE) 20 MG/ML VIAL IV PRN (16:45)
[2020-03-07] MEDS ORDERED: ONDANSETRON 4 MG (ZOFRAN) ORAL DISSOLVE TAB PO PRN (16:45)
[2020-03-07] MEDS ORDERED: ANTACID SUSP 30 ML UDC (MYLANTA) PO PRN (16:45)
[2020-03-07] MEDS ORDERED: BISACODYL 10 MG SUPP (DULCOLAX) PR PRN (16:45)
[2020-03-07] MEDS ORDERED: polyethylene glycoL POWDER 17 GM (MIRALAX) PACK PO PRN (16:45)
[2020-03-07] MEDS ORDERED: MELATONIN 3 MG TABLET PO PRN (16:45)
[2020-03-07] MEDS ORDERED: warFARin 7.5 MG (COUMADIN) TAB PO SCH (18:00)
[2020-03-07 20:00] VITALS: BP 163/69
[2020-03-07] MEDS: PHENobarbital 64.8 MG (1 GRAIN) TAb PO SCH (20:11)
[2020-03-07] MEDS: SENNOSIDES 8.6 MG (SENOKOT) TAB PO SCH (20:11)
[2020-03-07] MEDS: DOCUSATE SODIUM 100 MG (COLACE) CAP PO SCH (20:11)
[2020-03-08 00:01] VITALS: BP 161/71
[2020-03-08] MEDS: ENOXAPARIN 80 MG/0.8 ML (LOVENOX) SYR SC SCH ×2 (01:41→12:04)
[2020-03-08 03:33] LABS: BASOPHILS % (AUTO) 0 % (0-10); EOSINOPHILS # (AUTO) 0.1 10^3/uL (0.0-0.3); EOSINOPHILS % (AUTO) 2 % (0-10); HEMATOCRIT 34 % (40-54); HEMOGLOBIN 11.2 G/DL (13.3-17.7); LYMPHOCYTES # (AUTO) 0.9 X 10^3 (1.0-4.0); LYMPHOCYTES % (AUTO) 16 % (12-44); MEAN CORPUSCULAR HEMOGLOBIN 32 PG (25-34); MEAN CORPUSCULAR HGB CONC 33 G/DL (32-36); MEAN CORPUSCULAR VOLUME 97 FL (80-99); MEAN PLATELET VOLUME 10.5 FL (7.4-10.4); MONOCYTES # (AUTO) 0.8 X 10^3 (0.0-1.0); MONOCYTES % (AUTO) 14 % (0-12); NEUTROPHILS # (AUTO) 3.8 X 10^3 (1.8-7.8); NEUTROPHILS % (AUTO) 67 % (42-75); PLATELET COUNT 153 10^3/uL (130-400); RED CELL DISTRIBUTION WIDTH 14.1 % (10.0-14.5); WHITE BLOOD COUNT 5.6 10^3/uL (4.3-11.0)
[2020-03-08 03:52] LABS: CHLORIDE 109 MMOL/L (98-107); POTASSIUM 3.8 MMOL/L (3.6-5.0); SODIUM 141 MMOL/L (135-145)
[2020-03-08 03:53] LABS: CALCIUM 8.3 MG/DL (8.5-10.1)
[2020-03-08 03:54] LABS: GLUCOSE 72 MG/DL (70-105)
[2020-03-08 03:56] LABS: CARBON DIOXIDE 22 MMOL/L (21-32)
[2020-03-08 03:57] LABS: PHOSPHORUS 2.6 MG/DL (2.3-4.7)
[2020-03-08 03:58] LABS: CREATININE SERUM 0.79 MG/DL (0.60-1.30); GFR ESTIMATED > 60
[2020-03-08 03:59] LABS: BUN/CREATININE RATIO 16
[2020-03-08 04:00] VITALS: BP 170/75
[2020-03-08 04:00] LABS: MAGNESIUM 1.9 MG/DL (1.6-2.4)
[2020-03-08] MEDS ORDERED: VANCOMYCIN 1250 MG/NS 250 ML IVPB IV SCH ×2 (06:00)
[2020-03-08] MEDS: LEVOTHYROXINE 75 MCG (LEVOTHROID) TABLET PO SCH (06:15)
[2020-03-08] MEDS: predniSONE 20 MG TAB PO SCH (06:15)
[2020-03-08] MEDS: ADVAIR HFA 115/21 MCG INHALER 8 GM IH SCH ×2 (07:39→18:33)
[2020-03-08 08:00] VITALS: BP 155/75
[2020-03-08] MEDS: lisINopril 5 MG (PRINIVIL) TABLET PO SCH (08:49)
[2020-03-08] MEDS: SENNOSIDES 8.6 MG (SENOKOT) TAB PO SCH ×2 (08:49→20:09)
[2020-03-08] MEDS: DOCUSATE SODIUM 100 MG (COLACE) CAP PO SCH ×2 (08:50→20:09)
[2020-03-08] MEDS: meTOproloL SUCCINATE 50 MG (TOPROL XL) TAB PO SCH (08:50)
[2020-03-08] MEDS: PHENYTOIN 100 MG (DILANTIN) CAP PO SCH ×3 (08:50→09:59)
[2020-03-08] MEDS ORDERED: PATIENT MAY USE OWN MED,SINGLE MED PO SCH (09:00)
--- NOTE | 2020-03-08 09:02 | Cardiology Progress Note ---
Subjective Date Seen by Provider: Mar 08, 2020 Time Seen by Provider: 09:01 Subjective/Events-last exam Patient is laying down in bed, still on BiPAP. No chest pain, still having Review of Systems General: Fatigue, Malaise HEENT: No Head Aches, No Visual Changes, No Eye Pain, No Ear Pain, No Dysphasia, No Sinus Congestion, No Post Nasal Drip, No Sore Throat, No Other Pulmonary: Dyspnea; No Cough, No Pleuritic Chest Pain, No Other Cardiovascular: No: Chest Pain, Palpitations, Orthopnea, Paroxysmal Noc. Dyspnea, Edema, Lt Headedness, Other Focused Exam Lactate Level 03/06/20 10:00: Lactic Acid Level 1.71 Time of Focused Exam: 13:01 Objective-Cardiology Exam Last Set of Vital Signs Vital Signs 03/07/20 03/08/20 12:00 08:00 Temp 36.3 Pulse 62 Resp 22 B/P (MAP) 155/75 (101) Pulse Ox 98 O2 Delivery NIV Bilevel O2 Flow Rate 40.00 FiO2 40 Capillary Refill : Less Than 3 Seconds I&O Intake and Output 03/08/20 00:00 Intake Total 3540 ml Output Total 2475 ml Balance 1065 ml Intake Oral 1130 ml IV Total 2410 ml Output Urine Total 2475 ml General: Alert, Oriented X3, Cooperative HEENT: Atraumatic, PERRLA Neck: Supple, No JVD, No Thyromegaly Lungs: Normal Air Movement, Other (bilateral rhonchi) Heart: Regular Rate, Normal S1, Normal S2, No Murmurs Abdomen: Normal Bowel Sounds, Soft, No Tenderness, No Hepatosplenomegaly, No Masses Extremities: No Clubbing, No Cyanosis, No Edema, Normal Pulses, No Tenderness/Swelling Skin: No Rashes, No Breakdown, No Significant Lesion Neuro: Normal Tone, Sensation Intact Psych/Mental Status: Mood NL Results Lab Laboratory Tests 03/08/20 03:04 A/P-Cardiology Admission Diagnosis Acute on chronic respiratory failure PE NSTEMI CAD Ischemic cardiomyopathy Assessment/Plan Acute on chronic respiratory failure, currently on BiPAP, medical services managing. PE, diagnosed December 2019, continue on Coumadin, continue Lovenox until INR therapeutic. NSTEMI, complaining of some chest pain over the weekend, patient reports pain worse with deep inspiration. No acute ST changes, troponin mildly elevated. Likely Type II IL secondary to hypoxemia Coronary artery disease with a history of coronary artery bypass surgery several years ago. Last cardiac catheterization was in December 2009. It showed severe benton coronary artery disease, including mid-vessel occlusion of the right coronary and the left circumflex and severe stenosis in the mid left anterior descending artery. There was patent saphenous vein graft to distal right coronary, patent saphenous vein graft to obtuse marginal, patent left internal mammary artery graft to mid left anterior descending artery. He underwent successful percutaneous intervention and stenting to the proximal and mid right coronary artery and a large right ventricular branch with drug-eluting stents (Promus 2.5 x 12 and Promus 2.5 x 23 proximal to distal, slightly overlapping). Since his coronary stenting of December 2009, he has not had any recurrence of angina pectoris. Last stress test December 2018 showed inferior and lateral wall myocardial infarctions without significant ischemia. Marked cardiomegaly. Inferior and lateral wall akinesis. Global hypokinesis. LVEF 8%, conservative management is recommended Ischemic cardiomyopathy with varied LVEF of 8-30% by various measurements over the course of the last several years. Echo 11/03/19 marked enlargement of LV, mod enlargement of LA, LVEF 20-25%, mod MR & TR RVSP approx 43 mmHg. continue to monitor Defibrillator implantation for prophylaxis against sudden cardiac . ICD discharge occurred on 04/12/14 at 2:24 am to treat VF. None since. Device is functioning normally. It reached VI on Apr 14, 2015 and was replaced on 05/10/15. It is functioning normally per interrogation of 08/12/19 Intolerance to Amiodarone d/t dizziness/weakness when taking this medication per patient and spouse. He refuses therapy with antiarrhythmics, including amiodarone Hyperlipidemia, continue to monitor. 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 EEG per September 21, [address] Tyson was abnormal, but without clear epileptiform activity (done during a hospitalization of Sep 2014 at [facility] and requested by Dr Barrientos). Carotid arterial stenosis, approx 50% R ICA stenosis, less than 40% L ICA román nosis per u/s of September 2019 Gastroesophageal reflux. History of mildly elevated alkaline phosphatase followed by his family physcian. H/o intermittent AST/ALT elevation, possibly due to statin therapy. Reactive airways disease. Nocturnal hypoxemia, but no MAGUI on sleep studies of a few years ago Chronic back pain Thank you for allowing us to participate in the management of Mr. Reddy. This is Aria Carmona PA-C, as a scribe for Dr. Moreland. Clinical Quality Measures DVT/VTE Risk/Contraindication: Risk Factor Score Per Nursin RFS Level Per Nursing on Admit: 4+=Very High MARIBEL MORELAND MD Mar 08, 2020 9:02 am
[2020-03-08] MEDS ORDERED: RT-ALBUTEROL SULF 2.5 MG/3 ML PRE-MIX VIAL ONE (09:17)
[2020-03-08] MEDS ORDERED: RT-ALBUTEROL SULF 2.5 MG/3 ML PRE-MIX VIAL INH PRN (09:30)
[2020-03-08] MEDS ORDERED: MULT-1136 PO (10:35)
[2020-03-08] MEDS ORDERED: WRF5T PO (10:35)
[2020-03-08] MEDS ORDERED: PHEN64.8 PO (10:35)
[2020-03-08] MEDS ORDERED: WARF1TAB8 PO (10:35)
[2020-03-08] MEDS ORDERED: ASPI-983 PO (10:35)
[2020-03-08] MEDS ORDERED: DIPH25CA79 PO (10:35)
--- NOTE | 2020-03-08 10:37 | NUR ---
SPOKE WITH THE PATIENTS SIXTO (SHE HAD AN UPDATED MED LIST THAT I ATTACHED TO HIS CHART) AND WENT THRU THE EXT MED HISTORY TO COMPLETE THE MED REC MOST OF THE PATIENTS PRESCRIPTION MEDICATIONS ARE PAST DUE BY 30-45 DAYS HOWEVER THE PT HAS BEEN IN AND OUT OF OUR FACILITY FOR SOMETIMES EXTENDED STAYS AND ALSO WAS A VIA [facility] [place]. FOR THAT REASON I DID NOT DOCUMENT THE PAST DUE FILLS SINCE SIXTO SAYS THAT DUE TO ALL HIS FACILITY STAYS HE HAS NOT RUN OUT OF MEDICATION SIXTO ALSO VERIFIED THAT THE PT IS TAKING WARFARIN AND ASPIRIN 81MG OTC MEDS: ASPIRIN 81 MTV VIT B6 &12 VIT D FOLIC ACID MIRALAX MUCINEX BENADRYL
--- NOTE | 2020-03-08 11:19 | Physical Therapy Daily Note ---
PT Daily Note-Current Subjective Patient agrees to PT. No c/o. Spouse present. Mental Status Patient Orientation: Person, Time, Situation Attachments: Oxygen, Manzano Catheter Transfers SCALE: Activities may be completed with or without assistive devices. 9-Hraxcrzomk-emryvli completes the activity by him/herself with no assistance from a helper. 5-Set-up or Clean-up Assistance-helper sets up or cleans up; patient completes activity. [place] assists only prior to or following the activity. 4-Supervision or Touching Assistance-helper provides verbal cues and/or touching/steadying and/or contact guard assistance as patient completes ac tivity. Assistance may be provided throughout the activity or intermittently. 3-Partial/Moderate Assistance-helper does LESS THAN HALF the effort. [place] lifts, holds or supports trunk or limbs, but provides less than half the effort. 2-Substantial/Maximal Assistance-helper does MORE THAN HALF the effort. [place] lifts or holds trunk or limbs and provides more than half the effort. 9-Hqdmlhtxa-zeyvrp does ALL the effort. Patient does none of the effort to complete the activity. Or, the assistance of 2 or more helpers is required for the patient to complete the activity. If activity was not attempted, code reason: 7-Patient Refused. 9-Not Applicable-not attempted and the patient did not perform the activity before the current illness, exacerbation or injury. 10-Not Attempted due to Environmental Limitations-(lack of equipment, weather restraints, etc.). 88-Not Attempted due to Medical Conditions or Safety Concerns. Roll Left & Right (QC): 5 Lying to Sitting/Side of Bed(Q: 5 Sit to Stand (QC): 4 Chair/Ane-fo-Tfpxk Xfer(QC): 4 Weight Bearing Right Lower Extremity: Right Weight Bearing/Tolerated Left Lower Extremity: Left Weight Bearing/Tolerated Gait Training Does the Patient Walk?: Yes Distance: 275' Walk 10 feet (QC): 4 Walk 50 ft with 2 Turns(QC): 4 Walk 150 ft (QC): 4 Gait Assistive Device: Walker Platform (left) functional gait sequence Assessment Patient is up in recliner with needs met. Patient tolerated treatment well. PT Mcfp Goals [employer] Consultant Goals PT [employer] Consultant Goals Time Frame: Mar 19, 2020 Roll Left & Right (QC): 5 Sit to Lying (QC): 5 Lying-Sitting on Side/Bed(QC): 5 Sit to Stand (QC): 5 Chair/Iug-wf-Ychgs Xfer(QC): 5 Toilet Transfer (QC): 5 Does the Patient Walk: Yes Walk 10 feet (QC): 5 Walk 50ft with 2 Turns (QC): 5 PT Plan Treatment/Plan Treatment Plan: Continue Plan of Care Treatment Plan: Bed Mobility, Education, Functional Activity Drew, Functional Strength, Gait, Safety, Therapeutic Exercise, Transfers Treatment Duration: Mar 19, 2020 Frequency: 6 times per week Estimated Hrs Per Day: .25 hour per day (to .5) Patient and/or Family Agrees t: Yes Time/GCodes Time In: 1045 Time Out: 1059 Total Billed Treatment Time: 14 Total Billed Treatment 1 visit GT 14 min VITOR MADRIGAL PT Mar 08, 2020 11:19
--- NOTE | 2020-03-08 11:56 | Occ Therapy Progress Note ---
Therapy Progress Note Attempted treatment this a.m. but pt. consulting with Will come back in p.m. 1 visit 1015 KEVIN GREEN OT Mar 08, 2020 11:56
[2020-03-08 12:00] VITALS: BP 160/74
[2020-03-08] MEDS: DIGOXIN 0.25 MG (LANOXIN) TAB PO SCH (12:04)
--- NOTE | 2020-03-08 12:10 | NUR ---
PALLIATIVE CARE RN in to see patient. I am well acquainted with Jose and Shira from numerous past admissions and have discussions regarding hospice on several of these occasions. He is sitting up and eating lunch upon arrival. , Shira, nubias jd out of the room to talk. This time the is bringing it up to Dr. Kang..thus my consult. She reports that she has been thinking and talking with patient. She thinks she would like to go home and resume home health again. she will await HH assessment and their recommendation on hospice. If they assess him and they recommend that this is the time for hospice..she will [facility].
--- NOTE | 2020-03-08 12:32 | Progress Note - Hospitalist ---
Subjective HPI/CC On Admission Date Seen by Provider: Mar 08, 2020 Time Seen by Provider: 10:30 Nirav Reddy is an 79-year-old male with past medical history of hypertension, hyperlipidemia, coronary artery disease, COPD, chronic hypoxic respiratory failure, heart failure, seizure disorder, hypothyroidism, pulmonary embolism, who presented with shortness of breath. He reports worsening of his shortness of breath over the weekend. He reports some pleuritic chest pain. He denies any fevers or chills. He denies any cough. He denies any abdominal pain, nausea, or vomiting. He denies any diarrhea or constipation. He has no other complaints or concerns. Subjective/Events-last exam He is feeling better today. He still feels a bit short of breath. He denies any fevers or chills. He denies any chest pain. He denies any abdominal pain, nausea, or vomiting. He has been eating and drinking well. He has been up and moving around with therapy. Focused Exam Lactate Level 03/06/20 10:00: Lactic Acid Level 1.71 Time of Focused Exam: 13:01 Objective Exam Vital Signs Vital Signs Date Time Temp Pulse Resp B/P (MAP) Pulse Ox O2 Delivery O2 Flow Rate FiO2 03/08/20 09:25 95 Nasal Cannula 3.00 03/08/20 08:00 36.3 62 22 155/75 (101) 03/08/20 08:00 40 Capillary Refill : Less Than 3 Seconds General Appearance: No Apparent Distress, Chronically ill Respiratory: No Respiratory Distress, Decreased Breath Sounds, Rhonci, Other (Wearing nasal cannula) Cardiovascular: Regular Rate, Rhythm, No Edema, No Murmur Gastrointestinal: Normal Bowel Sounds, Non Tender, Soft Extremity: Normal Inspection, Non Tender, No Pedal Edema Neurologic/Psychiatric: Alert, Oriented x3, Normal Mood/Affect, Motor Weakness Skin: Normal Color, Warm/Dry Results/Procedures Lab Laboratory Tests 03/08/20 03:04 Patient resulted labs reviewed. Imaging: Reviewed Imaging Report Assessment/Plan Assessment and Plan Assess & Plan/Chief Complaint Acute on chronic respiratory failure with hypoxia Pulmonary embolism COPD with acute exacerbation NSTEMI Chronic HFrEF Requiring increasing levels of supplemental oxygen CT scan showed peripheral pulmonary emboli and right lower lobe consolidation Continue Lovenox and Coumadin for pulmonary embolism Procalcitonin remain negative, discontinue antibiotics Continue prednisone Cardiology consulted, appreciate assistance Hypertension Hyperlipidemia CAD Seizure disorder Hypothyroidism Continue home meds Advanced age Poor prognosis Advance care planning Considering hospice Consult palliative care DVT prophylaxis: Already receiving therapeutic anticoagulation Diagnosis/Problems Diagnosis/Problems (1) Acute on chronic respiratory failure with hypoxia Status: Acute (2) COPD with exacerbation Status: Acute (3) NSTEMI (non-ST elevation myocardial infarction) Status: Acute (4) Pneumonia Status: Acute Qualifiers: Pneumonia type: due to unspecified organism Laterality: bilateral Lung location: lower lobe of lung Qualified Codes: J18.1 - Lobar pneumonia, unspecified organism (5) Pulmonary emboli Status: Acute Qualifiers: Pulmonary embolism type: multiple subsegmental (without acute cor pulmonale) Qualified Codes: I26.94 - Multiple subsegmental pulmonary emboli without acute cor pulmonale Clinical Quality Measures DVT/VTE Risk/Contraindication: Risk Factor Score Per Nursin RFS Level Per Nursing on Admit: 4+=Very High CALI BUCKLEY MD Mar 08, 2020 12:32
--- NOTE | 2020-03-08 14:19 | Physician Query Clarification ---
PQ-Uncertain Diagnosis Admission/Discharge Admission Date: Mar 06, 2020 at 14:00 Discharge Date: Dr. Buckley, The medical record reflects the following clinical scenario: History/Risk Factors: Pneumonia Acute on chronic respiratory failure with hypoxia Clinical Findings: WBC 9.2, T 37.1, P 101, Resp 16, BP 154/76, Lactic acid 1.71. Blood gases: pH 7.37, pC02 46, p02 71, HC03 25, Total C02 26.8, 02 sat 93%, Base excess 0.7. Treatment: OxyMask, NIV Bilevel 30.00% FI02, IV Solu Medrol, IV Vancomycin HCI 750mg, IV Rocephin. Question: Is Severe sepsis a clinically valid diagnosis? Severe sepsis was documented in the ED impression by Dr. Ruiz with no further documentation in the medical record. Please document a response in Progress Note or Discharge Summary. 1. Yes, clinically valid, condition resolved. 2. No, condition ruled out. 3. Other, with explanation of clinical findings. 4. Undetermined, no explanation for clinical findings. PHYSICIAN RESPONSE Diagnosis clinically valid: No, conditon ruled out Please remember a lack of response to the above will prompt a phone page by CDI/Coding staff. In responding to this query, please exercise your independent professional judgment. The purpose of this communication is to more accurately reflect the complexity of your patients condition. The fact that a question is asked does not imply that any particular answer is desired or expected. Thank you for your timely response to this clarification. Requestors name: Audrey Mcnair [facility] Phone # ext [phone] or [phone] THIS PHYSICIAN QUERY FORM IS A PERMANENT PART OF THE MEDICAL RECORD AUDREY MCNAIR Mar 08, 2020 14:19 CALI BUCKLEY MD Mar 09, 2020 16:46
--- NOTE | 2020-03-08 14:32 | Physician Query Clarification ---
"Physician Query-General Query to Physician: Clinical Validation Clarification Dr. Buckley : Sepsis has been documented in the medical record by the ER Physician Dr. Ruiz After study, do you consider Sepsis a clinically valid diagnosis? If not clinically valid, please document Sepsis, ruled out in the progress notes and/or discharge summary. 1. No, not clinically valid/ruled out 2. Yes, clinically valid diagnosis 3. Other, with explanation of the clinical findings 4. Clinically undetermined, no explanation for the clinical findings Additional information: WBC 9.2 , T 37.1, BP 154/76 HR 101. RR 16 Cefepime/Vanco given on day of admission. ABX now DCd Please remember a lack of response to the above will prompt a phone page by CDI/coding staff. In responding to this query, please exercise your independent professional judgment. The purpose of this communication is to more accurately reflect the complexity of your patients condition. The fact that a question is asked does not imply that any particular answer is desired or expected. Thank you for timely response to this clarification. Susannah Kelly, MSN, RN RN Specialist-Clinical Doc Improvement CD -Health Info Mgmt Operations [address] [facility] t: [phone] | f: [phone] If you are unable to reach me at my extension, I may be working from home. Please contact me at [phone] PHYSICIAN RESPONSE: Based on the clinical findings in the record, please respond to the query above on this document as an addendum. Physician Response: Physician Response No ruled out If you have questions please contact: Director Marketing Analytics: Ext: Thank you for your time and cooperation. Clinical Software Development Advisor/Director Marketing Analytics This is a permanent part of the medical record SUSANNAH KELLY Mar 08, 2020 14:32 CALI BUCKLEY MD Mar 09, 2020 16:47"
--- NOTE | 2020-03-08 14:33 | Physician Query Clarification ---
PQ-Conflicting Diagnosis Admission/Discharge Admission Date: Mar 06, 2020 at 14:00 Discharge Date: Dr. Buckley, The medical record reflects the following clinical scenario: History/Risk Factors: Acute on chronic respiratory failure with hypoxia Elevated troponin Coronary artery disease Ischemic Cardiomyopathy Clinical Findings: Troponins 03/06: 0.038, 0.119, 0.126 Treatment: Cardiology consult. Per Dr. Moreland. "NSTEMI, complaining of some chest pain over the weekend, patient reports pain worse with deep inspiration. No acute ST changes, troponin mildly elevated. Likely Type II PA secondary to hypoxemia." Question: Do you agree with the impression of Type II PA secondary to hypoxemia per Dr. Moreland? Please document a response in Progress Note or Discharge Summary. 1. Yes 2. No 3. Other, with explanation of clinical findings 4. Clinically undetermined, no explanation for clinical findings. PHYSICIAN RESPONSE Do you agree w/Consulting Dx?: Yes Please remember a lack of response to the above will prompt a phone page by CDI/Coding staff. In responding to this query, please exercise your independent professional judgment. The purpose of this communication is to more accurately reflect the complexity of your patients condition. The fact that a question is asked does not imply that any particular answer is desired or expected. Thank you for your timely response to this clarification. Requestors name: Audrey Mcnair [facility] Phone # ext [phone] or [phone] THIS PHYSICIAN QUERY FORM IS A PERMANENT PART OF THE MEDICAL RECORD AUDREY MCNAIR Mar 08, 2020 14:33 CALI BUCKLEY MD Mar 09, 2020 16:47
--- NOTE | 2020-03-08 15:16 | Occupational Ther Daily Note ---
OT Current Status-Daily Note Subjective No pain reported. Pt. is concerned about the bandage on his left UE, as it has slipped. He has notified nursing. Appearance Pt. up in chair. Requests to transfer back to bed. Mental Status/Objective Patient Orientation: Person, Place, Time, Situation Attachments: Manzano Catheter, IV, Oxygen, Telemetry ADL-Treatment Therapy Code Descriptions/Definitions Functional [place] Measure: 0=Not Assessed/NA 4=Minimal Assistance 1=Total Assistance 5=Supervision or Setup 2=Maximal Assistance 6=Modified Holmes 3=Moderate Assistance 7=Complete IndependenceSCALE: Activities may be completed with or without assistive devices. 8-Bthcgoduiv-fxuunmx completes the activity by him/herself with no assistance from a helper. 5-Set-up or Clean-up Assistance-helper sets up or cleans up; patient completes activity. [place] assists only prior to or following the activity. 4-Supervision or Touching Assistance-helper provides verbal cues and/or touching/steadying and/or contact guard assistance as patient completes activity. Assistance may be provided throughout the activity or intermittently. 3-Partial/Moderate Assistance-helper does LESS THAN HALF the effort. [place] lifts, holds or supports trunk or limbs, but provides less than half the effort. 2-Substantial/Maximal Assistance-helper does MORE THAN HALF the effort. [place] lifts or holds trunk or limbs and provides more than half the effort. 8-Ltuwxpllv-dkoryh does ALL the effort. Patient does none of the effort to complete the activity. Or, the assistance of 2 or more helpers is required for the patient to complete the activity. If activity was not attempted, code reason: 7-Patient Refused. 9-Not Applicable-not attempted and the patient did not perform the activity before the current illness, exacerbation or injury. 10-Not Attempted due to Environmental Limitations-(lack of equipment, weather restraints, etc.). 88-Not Attempted due to Medical Conditions or Safety Concerns. Pt. stood without walker with CGA/Min assist from chair. Pt. able to take small steps to bed, and transfer standing-sit. Pt. able to transfer sit-supine with SBA. Required cues and increased time to position self to comfort level in bed. All needs met at end of session. Education OT Patient Education: Correct positioning, Purpose of tx/functional activities, Reviewed precautions, Rehab process, Transfer techniques Teaching Recipient: Patient Teaching Methods: Demonstration, Discussion Response to Teaching: Verbalize Understanding, Return Demonstration OT Short Term Goals Short Term Goals Time Frame: Mar 14, 2020 Eatin Toileting hygiene: 3 (Mod assist) Upper body dressin (Mod assist) OT Consulting Project Director Goals Consulting Project Director Goals Time Frame: Mar 21, 2020 Eating (QC): 6 Toileting Hygiene (QC): 4 Upper Body Dressing (QC): 4 Additional Goals: 1-Demonstrate ADL Tasks, 2-Verbalize Understanding, 3- ImproveStrength/Drew 1=Demonstrate adherence to instructed precautions during ADL tasks. 2=Patient will verbalize/demonstrate understanding of assistive devices/modifications for ADL. 3=Patient will improve strength/tolerance for activity to enable patient to perform ADL's. OT Education/Plan Problem List/Assessment Assessment: Decreased Activ Tolerance, Impaired I ADL's, Impaired Self-Care Skills Discharge Recommendations Plan/Recommendations: Continue POC Treatment Plan/Plan of Care Treatment,Training & Education: Yes Patient would benefit from OT for education, treatment and training to promote independence in ADL's, mobility, safety and/or upper extremity function for ADL's. Plan of Care: ADL Retraining, Functional Mobility, UE Funct Exercise/Act Treatment Duration: Mar 21, 2020 Frequency: 5 times per week Estimated Hrs Per Day: .25 hour per day Agreement: Yes Rehab Potential: Fair Time/GCodes Start Time: 15:00 Stop Time: 15:10 Total Time Billed (hr/min): 10 Billed Treatment Time 1, KEVIN AMADOR OT Mar 08, 2020 15:16
[2020-03-08 16:00] VITALS: BP 136/60
[2020-03-08] MEDS ORDERED: warFARin 3 MG (COUMADIN) TAB PO SCH (18:00)
[2020-03-08] MEDS: PHENobarbital 64.8 MG (1 GRAIN) TAb PO SCH (20:10)
[2020-03-08 20:30] VITALS: BP 144/67
[2020-03-08] MEDS ORDERED: PHENYTOIN 100 MG (DILANTIN) CAP PO SCH (21:00)
[2020-03-09] VITALS: BP 131/61
[2020-03-09] MEDS: ENOXAPARIN 80 MG/0.8 ML (LOVENOX) SYR SC SCH ×2 (01:05→12:50)
--- NOTE | 2020-03-09 02:31 | NUR ---
Patient Bi Pap removed at this time. Patient unable to tolerate. Switched back to NC@3L/min.
[2020-03-09 03:48] LABS: BASOPHILS % (AUTO) 1 % (0-10); EOSINOPHILS # (AUTO) 0.2 10^3/uL (0.0-0.3); EOSINOPHILS % (AUTO) 4 % (0-10); HEMATOCRIT 34 % (40-54); HEMOGLOBIN 11.4 G/DL (13.3-17.7); LYMPHOCYTES % (AUTO) 18 % (12-44); MEAN CORPUSCULAR HEMOGLOBIN 32 PG (25-34); MEAN CORPUSCULAR HGB CONC 33 G/DL (32-36); MEAN CORPUSCULAR VOLUME 98 FL (80-99); MEAN PLATELET VOLUME 10.4 FL (7.4-10.4); MONOCYTES # (AUTO) 0.7 X 10^3 (0.0-1.0); MONOCYTES % (AUTO) 14 % (0-12); NEUTROPHILS # (AUTO) 3.3 X 10^3 (1.8-7.8); NEUTROPHILS % (AUTO) 63 % (42-75); PLATELET COUNT 143 10^3/uL (130-400); RED CELL DISTRIBUTION WIDTH 14.1 % (10.0-14.5); WHITE BLOOD COUNT 5.3 10^3/uL (4.3-11.0)
[2020-03-09 03:55] VITALS: BP 135/70
[2020-03-09 03:59] LABS: INR 1.7 (0.8-1.4); PROTHROMBIN TIME PATIENT 19.9 SEC (12.2-14.7)
[2020-03-09 04:01] LABS: CHLORIDE 107 MMOL/L (98-107); POTASSIUM 3.9 MMOL/L (3.6-5.0); SODIUM 140 MMOL/L (135-145)
[2020-03-09 04:02] LABS: CALCIUM 8.4 MG/DL (8.5-10.1)
[2020-03-09 04:03] LABS: GLUCOSE 85 MG/DL (70-105)
[2020-03-09 04:05] LABS: CARBON DIOXIDE 23 MMOL/L (21-32)
[2020-03-09 04:07] LABS: CREATININE SERUM 0.87 MG/DL (0.60-1.30); GFR ESTIMATED > 60; PHOSPHORUS 2.7 MG/DL (2.3-4.7)
[2020-03-09 04:08] LABS: BUN/CREATININE RATIO 18
[2020-03-09] MEDS: predniSONE 20 MG TAB PO SCH (06:23)
[2020-03-09] MEDS: LEVOTHYROXINE 75 MCG (LEVOTHROID) TABLET PO SCH (06:24)
--- NOTE | 2020-03-09 06:49 | Pulmonary Consultation ---
History of Present Illness History of Present Illness Date Seen by Provider: Mar 09, 2020 Time Seen by Provider: 06:45 Date of Admission Reason for Visit: CAD, elevated troponin Allergies and Home Medications Allergies Coded Allergies: amiodarone (Verified Allergy, Severe, 03/13/19) lorazepam (Verified Allergy, Unknown, 03/13/19) scopolamine (Verified Allergy, Unknown, 03/13/19) Home Medications Albuterol Sulfate 2.5 Mg/0.5 Ml Vial.neb, 2.5 MG INH BID PRN for SHORTNESS OF BREATH, (Reported) WHEN IN A COPD FLARE HE TAKES A TREAMENT EVERY 4-6 HOURS *3-4 TIMES DAILY) Aspirin 81 Mg Tablet.dr, 81 MG PO DAILY, (Reported) Benzonatate 100 Mg Capsule, 100-200 MG PO TID PRN for COUGH, (Reported) Budesonide/Formoterol Fumarate 10.2 Gm Hfa.aer.ad, 2 PUFF IH BID, (Reported) Calcium/Vit B12/FA/Pyridoxine 1 Each Tablet, 1 EACH PO DAILY, (Reported) Chlorhexidine Gluconate 473 Ml Mouthwash, 5-10 ML MT BID, (Reported) RINSE AND SPIT TWICE DAILY Cholecalciferol (Vitamin D3) 50 Mcg Capsule, 50 MCG PO DAILY, (Reported) Clotrimazole/Betamethasone Dip 15 Gm Cream..g., 1 APPLIC TP BID PRN for ITCHING, (Reported) Digoxin 250 Mcg Tablet, 250 MCG PO DAILY@1200, (Reported) Diphenhydramine HCl 25 Mg Capsule, 25-50 MG PO Q6H PRN for ITCHING, (Reported) Furosemide 40 Mg Tablet, 40 MG PO DAILY, (Reported) Guaifenesin 600 Mg Tab.er.12h, 600 MG PO BID PRN for CONGESTION, (Reported) Levothyroxine Sodium 75 Mcg Tablet, 75 MCG PO DAILY, (Reported) Lisinopril 5 Mg Tablet, 5 MG PO DAILY, (Reported) Metoprolol Succinate 50 Mg Tab.er.24h, 50 MG PO DAILY, (Reported) Metronidazole 45 Gm Gel..gram., 1 APPLIC TD BID PRN for BREAKOUT, (Reported) APPLIES TO THE FOREHEAD Montelukast Sodium 10 Mg Tablet, 10 MG PO DAILY, (Reported) Multivitamin 1 Each Tablet, 1 EACH PO DAILY, (Reported) Phenobarbital 64.8 Mg Tablet, 129.6 MG PO HS, (Reported) TAKES 2 (64.8MG) TABS AT BEDTIME Phenytoin Sodium Extended 100 Mg Capsule, 300 MG PO 1800, (Reported) TAKES 2 (100MG) CAPS IN THE MORNING AND 3 (100MG) CAPS AT 1800 Phenytoin Sodium Extended 100 Mg Capsule, 200 MG PO DAILY, (Reported) TAKES 2 (100MG) CAPS IN THE MORNING AND 3 (100MG) CAPS AT 1800 Polyethylene Glycol 3350 17 Gm Powd.pack, 17 GM PO DAILY, (Reported) Pyridoxine HCl 100 Mg Tablet, 100 MG PO DAILY, (Reported) Simvastatin 10 Mg Tablet, 10 MG PO HS, (Reported) Warfarin Sodium 5 Mg Tablet, 5 MG PO HS, (Reported) TAKES A 5MG +1MG TO EQUAL 6MG DAILY Warfarin Sodium 1 Mg Tablet, 1 MG PO HS, (Reported) TAKES A 5MG +1MG TO EQUAL 6MG DAILY Past Wbjrhqm-Wrofvf-Utwjko Hx Past Med/Social Hx: Reviewed Nursing Past Med/Soc Hx Patient Social History Alcohol Use: Denies Use Recreational Drug Use: No Smoking Status: Former Smoker Type Used: Cigarettes Former Smoker, Quit: Jan 31, 1990 2nd Hand Smoke Exposure: No Recent Foreign Travel: No Contact w/Someone Who Travel: No Recent Infectious Disease Expo: No Recent Hopitalizations: No Immunizations Up To Date Tetanus Booster (TDap): Less than 5yrs PED Vaccines UTD: Yes Date of Pneumonia Vaccine: January 20, 2015 Date of Influenza Vaccine: May 10, 2019 Seasonal Allergies Seasonal Allergies: Yes Past Medical History Surgeries: Yes (SEE BELOW) Cardiac, CABG, Coronary Stent, Defibrillator, Eye Surgery, Pacemaker Respiratory: Yes (INTUBATED 2012; WEARS OXYGEN) Pneumonia, Chronic Bronchitis, COPD Currently Using CPAP: No Currently Using BIPAP: No Cardiac: Yes (3 VESSEL CABG; STENTS X 2; CHF; CARDIAC ARREST 12/1997;CAROTID DISEASE;LBBB) Cardiomyopathy, Coronary Artery Disease, High Cholesterol, Hypertension, Peripheral Vascular Neurological: Yes (Brain biopsy 1990; SEIZURES SINCE 1990;FALLS/POOR BALANCE) Neuropathy, Seizure Disorder, Stroke Reproductive Disorders: No Sexually Transmitted Disease: No Genitourinary: Yes Bladder Infection, Renal Failure Gastrointestinal: Yes (ACHALASIA;) Abdominal Hernia 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;LEG FX 1964;L HUMERUS FX 2014;FALLS/POOR BALANCE) Degenerate Disk Disease, Arthritis, Chronic Back Pain, Fractures Endocrine: Yes Hypothyroidsim HEENT: Yes Cataract Hearing Impairment: Hard of Hearing Cancer: Yes (pre-skin cancer) Skin Did You Recieve Any Treatments: Yes What Type of Treatment Did You: Surgical Intervention Psychosocial: Yes Depression Integumentary: No (chronic rash over 2 months, vs pre skin cancer) Blood Disorders: No Adverse Reaction/Blood Tranf: No Family Medical History Arthritis 19 MOTHER, Cardiovascular disease G8 BROTHER, G8 BROTHER, , Age:67 G8 BROTHER G8 SISTER Cataracts G8 BROTHER, , Age:67 G8 BROTHER Completed stroke 19 MOTHER, Deafness or hearing loss G8 BROTHER G8 BROTHER Diabetes mellitus G8 SISTER Headache disorder 19 FATHER, 19 MOTHER, G8 BROTHER, G8 BROTHER, , Age:67 G8 BROTHER G8 BROTHER G8 SISTER Hypercholesterolemia G8 BROTHER, , Age:67 G8 BROTHER G8 BROTHER G8 SISTER Hypertension 19 MOTHER, G8 BROTHER G8 SISTER Myocardial infarction G8 BROTHER, , Age:67 G8 BROTHER G8 SISTER Respiratory disorder G8 BROTHER, Thyroid disease G8 SISTER No Family History of: AIDS Abdominal aortic aneurysm [place]'s disease Alcoholism Alzheimer's disease Aphasia Asthma Cancer of mouth Colon cancer Congenital disease Congenital heart disease Cystic fibrosis Dementia Drug abuse Dysphasia Fibrocystic disease of breast Gastroenteritis Glaucoma Infertility Kidney disease Neoplasm Not obtainable due to adoption Osteoporosis Parkinson's disease Prostate cancer Psychosocial problem Seizure disorder Severe allergy Tuberculosis Visual disorder No Pertinent Family Hx PSH: -HERNIA REPAIR 1977 -3 VESSEL CABG 1990--DR. WESTON -BRAIN BIOPSY ON RIGHT 1990 -DEFIBRILLATOR/PACEMAKER 1997, WITH REPLACEMENTS--LAST REPLACEMENT 05/10/15 -ORAL SURGERY 1998 -LEFT EYE SURGERY TO REMOVE PTERYGIUM 1999 -RIGHT EYE SURGERY TO REMOVE PTERYGIUM 2012 -CARDIAC CATHS--2 STENTS 2009 -BRONCHOSCOPY -COLONOSCOPY -SKIN CANCER REMOVED - ADDITIONAL PMH: -MULTIPLE ADMITS FOR COPD AND PNEUMONIA, WITH RESPIRATORY FAILURE AND HAS BEEN INTUBATED IN 2012-HAD PNEUMONIA, INFLUENZA B AND CHF, THEN MOST RECENTLY ADMITTED 11/02/19-11/15 WITH PNEUMONIA/RESPIRATORY FAILURE AND INFLUENZA B AND CHG-NO INTUBATION. Review of Systems Time Seen by Provider: 06:45 Sepsis Event Evaluation Height, Weight, BMI Height: 6'0" Weight: 187lbs. 0.0oz. [id number]; 21.30 BMI Method:Stated Exam Exam Vital Signs Date Time Temp Pulse Resp B/P (MAP) Pulse Ox O2 Delivery O2 Flow Rate FiO2 03/09/20 03:55 97 Nasal Cannula 3.00 03/09/20 03:55 36.8 67 18 135/70 (91) 97 Nasal Cannula 3.00 03/09/20 02:30 Nasal Cannula 3.00 03/09/20 02:15 63 22 98 40.00 03/09/20 01:00 61 03/09/20 00:00 NIV Bilevel 40 03/09/20 00:00 36.8 55 20 131/61 (84) 98 NIV Bilevel 40.00 03/08/20 22:34 72 20 98 40.00 03/08/20 22:00 NIV Bilevel 40.00 03/08/20 21:00 98 Nasal Cannula 2.00 03/08/20 20:30 36.9 75 18 144/67 (92) 96 03/08/20 20:00 Nasal Cannula 2.00 03/08/20 19:00 70 03/08/20 18:33 94 Nasal Cannula 2.00 03/08/20 16:00 36.4 74 18 136/60 (85) 99 Nasal Cannula 3.00 03/08/20 15:53 Nasal Cannula 2.00 03/08/20 12:59 76 03/08/20 12:00 37.0 72 19 160/74 (102) 97 Nasal Cannula 3.00 03/08/20 12:00 Nasal Cannula 3.00 03/08/20 09:25 95 Nasal Cannula 3.00 03/08/20 08:40 Nasal Cannula 3.00 03/08/20 08:00 36.3 62 22 155/75 (101) 98 NIV Bilevel 40.00 03/08/20 08:00 NIV Bilevel 40 03/08/20 08:00 NIV Bilevel 40 03/08/20 07:39 69 20 98 40.00 03/08/20 07:05 99 I & O 03/09/20 07:00 Intake Total 925 ml Output Total 1350 ml Balance -425 ml Height & Weight Height: 6'0" Weight: 187lbs. 0.0oz. [id number]; 21.30 BMI Method:Stated General Appearance: No Apparent Distress, Chronically ill HEENT: PERRL/EOMI, Other (BiPAP mask in place) Neck: Normal Inspection, Supple Respiratory: No Respiratory Distress, Decreased Breath Sounds, Rhonci, Other (Wearing nasal cannula) Cardiovascular: Regular Rate, Rhythm, No Edema, No Murmur Capillary Refill: Less Than 3 Seconds Peripheral Pulses: 2+ Radial Pulses (R), 2+ Radial Pulses (L) Gastrointestinal: normal bowel sounds, non tender, soft, no organomegaly Extremity: Normal Inspection, Non Tender, No Pedal Edema Neurologic/Psychiatric: Alert, Oriented x3, Normal Mood/Affect, Motor Weakness Skin: Normal Color, Warm/Dry Results Lab Laboratory Tests 03/08/20 03:04 03/09/20 03:29 Assessment/Plan Assessment/Plan Acute on chronic respiratory failure with hypoxia -Pt is currently using BIPAP during the night -C02 is 44 .He will not qualify for PAP therapy as out pt unless he has a positive PSG. Pulmonary embolism -Currently on Lovenox and Coumadin Possible MAGUI -Will need out pt study -Will order as out pt during f/u visit. COPD with acute exacerbation -Advair, albuterol -Oxygen NSTEMI CHF Hypertension Hyperlipidemia CAD Seizure disorder Hypothyroidism HIRAL RENTERIA DO Mar 09, 2020 06:49
[2020-03-09 07:24] VITALS: BP 168/79
[2020-03-09] MEDS: DOCUSATE SODIUM 100 MG (COLACE) CAP PO SCH (08:45)
[2020-03-09] MEDS: meTOproloL SUCCINATE 50 MG (TOPROL XL) TAB PO SCH (08:45)
[2020-03-09] MEDS: lisINopril 5 MG (PRINIVIL) TABLET PO SCH (08:45)
[2020-03-09] MEDS: SENNOSIDES 8.6 MG (SENOKOT) TAB PO SCH (08:45)
[2020-03-09] MEDS: PHENYTOIN 100 MG (DILANTIN) CAP PO SCH (08:46)
--- NOTE | 2020-03-09 10:22 | Cardiology Progress Note ---
Subjective Date Seen by Provider: Mar 09, 2020 Time Seen by Provider: 10:20 Subjective/Events-last exam Patient is sitting in a chair, feeling well. No new complaint Review of Systems General: No Chills, No Night Sweats, No Fatigue, No Malaise, No Appetite, No Other HEENT: No Head Aches, No Visual Changes, No Eye Pain, No Ear Pain, No Dysphasia, No Sinus Congestion, No Post Nasal Drip, No Sore Throat, No Other Pulmonary: Dyspnea; No Cough, No Pleuritic Chest Pain, No Other Cardiovascular: No: Chest Pain, Palpitations, Orthopnea, Paroxysmal Noc. Dyspnea, Edema, Lt Headedness, Other Focused Exam Time of Focused Exam: 13:01 Objective-Cardiology Exam Last Set of Vital Signs Vital Signs 03/09/20 03/09/20 00:00 07:24 Temp 36.6 Pulse 71 Resp 19 B/P (MAP) 168/79 (108) Pulse Ox 98 FiO2 40 Capillary Refill : Less Than 3 Seconds I&O Intake and Output 03/09/20 00:00 Intake Total 1175 ml Output Total 1300 ml Balance -125 ml Intake Oral 1175 ml Output Urine Total 1300 ml General: Alert, Oriented X3, Cooperative HEENT: Atraumatic, PERRLA Neck: Supple, No JVD, No Thyromegaly Lungs: Clear to Auscultation, Normal Air Movement Heart: Regular Rate, Normal S1, Normal S2, No Murmurs Abdomen: Normal Bowel Sounds, Soft, No Tenderness, No Hepatosplenomegaly, No Masses Extremities: No Clubbing, No Cyanosis, No Edema, Normal Pulses, No Tenderness/Swelling Skin: No Rashes, No Breakdown, No Significant Lesion Neuro: Normal Tone, Sensation Intact Psych/Mental Status: Mood NL Results Lab Laboratory Tests 03/09/20 03:29 A/P-Cardiology Admission Diagnosis Acute on chronic respiratory failure PE NSTEMI CAD Ischemic cardiomyopathy Assessment/Plan Status post acute respiratory failure, improving, sitting in a chair on a nasal cannula, feeling better and breathing better. PE, diagnosed December 2019, continue on Coumadin, continue Lovenox until INR therapeutic. NSTEMI, complaining of some chest pain over the weekend, patient reports pain worse with deep inspiration. No acute ST changes, troponin mildly elevated. Likely Type II OR secondary to hypoxemia, conservative management is recommended Coronary artery disease with a history of coronary artery bypass surgery several years ago. Last cardiac catheterization was in December 2009. It showed severe prairie band coronary artery disease, including mid-vessel occlusion of the right coronary and the left circumflex and severe stenosis in the mid left anterior descending artery. There was patent saphenous vein graft to distal right coronary, patent saphenous vein graft to obtuse marginal, patent left internal mammary artery graft to mid left anterior descending artery. He underwent successful percutaneous intervention and stenting to the proximal and mid right coronary artery and a large right ventricular branch with drug-eluting stents (Promus 2.5 x 12 and Promus 2.5 x 23 proximal to distal, slightly overlapping). Since his coronary stenting of December 2009, he has not had any recurrence of angina pectoris. Last stress test December 2018 showed inferior and lateral wall myocardial infarctions without significant ischemia. Marked cardiomegaly. Inferior and lateral wall akinesis. Global hypokinesis. LVEF 8%, conservative management is recommended Ischemic cardiomyopathy with varied LVEF of 8-30% by various measurements over the course of the last several years. Echo 11/03/19 marked enlargement of LV, mod enlargement of LA, LVEF 20-25%, mod MR & TR RVSP approx 43 mmHg. continue to monitor Defibrillator implantation for prophylaxis against sudden cardiac . ICD discharge occurred on 04/12/14 at 2:24 am to treat VF. None since. Device is functioning normally. It reached VI on Apr 14, 2015 and was replaced on 05/10/15. It is functioning normally per interrogation of 08/12/19 Intolerance to Amiodarone d/t dizziness/weakness when taking this medication per patient and spouse. He refuses therapy with antiarrhythmics, including amiodarone Hyperlipidemia, continue to monitor. 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 EEG per September 21, [address] Tyson was abnormal, but without clear epileptiform activity (done during a hospitalization of Sep 2014 at [facility] and requested by Dr Barrientos). Carotid arterial stenosis, approx 50% R ICA stenosis, less than 40% L ICA román nosis per u/s of September 2019 Gastroesophageal reflux. History of mildly elevated alkaline phosphatase followed by his family physcian. H/o intermittent AST/ALT elevation, possibly due to statin therapy. Reactive airways disease. Nocturnal hypoxemia, but no MAGUI on sleep studies of a few years ago Chronic back pain Clinical Quality Measures DVT/VTE Risk/Contraindication: Risk Factor Score Per Nursin RFS Level Per Nursing on Admit: 4+=Very High MARIBEL CONNER MD Mar 09, 2020 10:22
--- NOTE | 2020-03-09 10:23 | NUR ---
SPO2 DROPPED TO 88% ON ROOM AIR @ REST. REPLACED O2 @ 2 LPM. SPO2 INCREASED TO 95%. Addendum: 03/09/20 at 1111 by SHANNAN CUEVAS RT Amended: Links added.
[2020-03-09] MEDS: ADVAIR HFA 115/21 MCG INHALER 8 GM IH SCH (10:56)
--- NOTE | 2020-03-09 11:13 | Physical Therapy Daily Note ---
PT Daily Note-Current Subjective Patient in recliner pre tx, agrees to PT, has no complaints of pain. Appearance Patient in recliner post tx with nurse call, phone, tray, all needs met. Mental Status Patient Orientation: Person, Place, Situation Attachments: Oxygen Transfers SCALE: Activities may be completed with or without assistive devices. 8-Jkblfddrph-cxuathh completes the activity by him/herself with no assistance from a helper. 5-Set-up or Clean-up Assistance-helper sets up or cleans up; patient completes activity. [place] assists only prior to or following the activity. 4-Supervision or Touching Assistance-helper provides verbal cues and/or touching/steadying and/or contact guard assistance as patient completes activity. Assistance may be provided throughout the activity or intermittently. 3-Partial/Moderate Assistance-helper does LESS THAN HALF the effort. [place] lifts, holds or supports trunk or limbs, but provides less than half the effort. 2-Substantial/Maximal Assistance-helper does MORE THAN HALF the effort. [place] lifts or holds trunk or limbs and provides more than half the effort. 5-Bsvdutflf-qsfjif does ALL the effort. Patient does none of the effort to complete the activity. Or, the assistance of 2 or more helpers is required for the patient to complete the activity. If activity was not attempted, code reason: 7-Patient Refused. 9-Not Applicable-not attempted and the patient did not perform the activity before the current illness, exacerbation or injury. 10-Not Attempted due to Environmental Limitations-(lack of equipment, weather restraints, etc.). 88-Not Attempted due to Medical Conditions or Safety Concerns. Sit to Stand (QC): 4 Chair/Lwo-tj-Ppozk Xfer(QC): 4 CGA Weight Bearing Right Lower Extremity: Right Weight Bearing/Tolerated Left Lower Extremity: Left Weight Bearing/Tolerated Gait Training Distance: 250' Walk 10 feet (QC): 4 Walk 50 ft with 2 Turns(QC): 4 Walk 150 ft (QC): 4 Gait Persons Needed: 1 Gait Assistive Device: FWW SBA, steady ambulation, fairly brisk, patient requests to take platform off of walker and he does just fine without it. Exercises Seated Therapy Exercises: Ankle pumps, Long arc quads Seated Reps: 20 Treatments transfers, ambulation, LE exercise Assessment Current Status: Fair Progress steady ambulation, ambulated well without the platform on the walker PT Mcc Goals Code Enforcement Inspector Goals PT Code Enforcement Inspector Goals Time Frame: Mar 19, 2020 Roll Left & Right (QC): 5 Sit to Lying (QC): 5 Lying-Sitting on Side/Bed(QC): 5 Sit to Stand (QC): 5 Chair/Vji-qs-Dauke Xfer(QC): 5 Toilet Transfer (QC): 5 Does the Patient Walk: Yes Walk 10 feet (QC): 5 Walk 50ft with 2 Turns (QC): 5 PT Plan Problem List Problem List: Activity Tolerance, Functional Strength, Safety, Balance, Gait, Transfer Treatment/Plan Treatment Plan: Continue Plan of Care Treatment Plan: Bed Mobility, Education, Functional Activity Drew, Functional Strength, Gait, Safety, Therapeutic Exercise, Transfers Treatment Duration: Mar 19, 2020 Frequency: 6 times per week Estimated Hrs Per Day: .25 hour per day (to .5) Patient and/or Family Agrees t: Yes Safety Risks/Education Patient Education: Gait Training, Transfer Techniques, Correct Positioning, Safety Issues Teaching Recipient: Patient Teaching Methods: Demonstration, Discussion Response to Teaching: Reinforcement Needed Time/GCodes Time In: 1052 Time Out: 1106 Total Billed Treatment Time: 14 Total Billed Treatment 1 visit FA NATALIE ALVAREZ PT Mar 09, 2020 11:13
[2020-03-09] MEDS ORDERED: ENOX80DI7 SC (11:27)
[2020-03-09] MEDS ORDERED: PRED10TA22 PO (11:27)
[2020-03-09] MEDS: DIGOXIN 0.25 MG (LANOXIN) TAB PO SCH (12:50)
--- NOTE | 2020-03-09 12:54 | NUR ---
FINAL DISCHARGE PLAN: Patient will discharge today to home with resumption of Home Health through [facility]. He was test for a new oxygen needs and does now require continuous O2 at 2 L. I have sent order for the change to their previous supplier and they will deliver a go tank. will transport home. Nurse will remove FISH and do education on Lovenox injections to the . I have informed Home Health that they may need to support that education once he arrive s to home. Addendum: 03/09/20 at 1259 by JENNY UMAÑA RN Shira has called the [facility] program through [facility]. They are going to start this program as well. They can have the support of the [facility] as well as Home Health at the same time.
--- NOTE | 2020-03-09 15:15 | Discharge Summary ---
Discharge Summary Hospital Course Was the Problem List Reviewed?: Yes Problems/Dx: (1) Pulmonary emboli Status: Acute Qualifiers: Qualified Codes: I26.94 - Multiple subsegmental pulmonary emboli without acute cor pulmonale (2) Acute on chronic respiratory failure with hypoxia Status: Acute (3) COPD with exacerbation Status: Acute (4) NSTEMI (non-ST elevation myocardial infarction) Status: Acute Hospital Course Date of Admission: Mar 06, 2020 at 14:00 Admission Diagnosis : Acute on chronic respiratory failure with hypoxia Family Physician/Provider: Julissa Vasquez MD Date of Discharge: 03/09/20 Discharge Diagnosis: Acute on chronic respiratory failure with hypoxia due to acute pulmonary embolism Hospital Course: Nirav Reddy is an 79-year-old male with multiple comorbidities who presented with acute on chronic respiratory failure with hypoxia due to acute pulmonary embolism. He had been taken off of his anticoagulation for a procedure. He had been restarted on his Coumadin but he was not yet therapeutic. A CT scan revealed the multiple subsegmental pulmonary emboli. He was started on therapeutic Lovenox. His Coumadin was resumed. His INR was 1.7 at the time of discharge. He was given a supply of Lovenox as a bridge until his Coumadin is therapeutic. He has an INR checked scheduled for Saturday. On arrival, there is concern for pneumonia but this was ruled out. He was treated with steroids for his COPD exacerbation and was given a taper on discharge. His course was complicated by NSTEMI for which cardiology was consulted. They believed this to be secondary to his respiratory failure and he was treated conservatively. Pulmonology was consulted. He was requiring BiPAP at times during his hospitalization. He was set up with an appointment for outpatient sleep study. With his chronic medical issues and recurrent hospitalizations, palliative care was consulted. They are considering hospice. He was discharged home in stable condition and will resume home health care. Labs and Pending Lab Test: Laboratory Tests 03/09/20 03:29: White Blood Count 5.3, Red Blood Count 3.53L, Hemoglobin 11.4L, Hematocrit 34L, Mean Corpuscular Volume 98, Mean Corpuscular Hemoglobin 32, Mean Corpuscular Hemoglobin Concent 33, Red Cell Distribution Width 14.1, Platelet Count 143, Mean Platelet Volume 10.4, Neutrophils (%) (Auto) 63, Lymphocytes (%) (Auto) 18, Monocytes (%) (Auto) 14H, Eosinophils (%) (Auto) 4, Basophils (%) (Auto) 1, Neutrophils # (Auto) 3.3, Lymphocytes # (Auto) 1.0, Monocytes # (Auto) 0.7, Eosinophils # (Auto) 0.2, Basophils # (Auto) 0.0, Prothrombin Time 19.9H, INR Comment 1.7H, Sodium Level 140, Potassium Level 3.9, Chloride Level 107, Carbon Dioxide Level 23, Anion Gap 10, Blood Urea Nitrogen 16, Creatinine 0.87, Estimat Glomerular Filtration Rate > 60, BUN/Creatinine Ratio 18, Glucose Level 85, Calcium Level 8.4L, Phosphorus Level 2.7, Magnesium Level 2.0 Microbiology 03/06/20 Blood Culture - Preliminary, Resulted No growth Home Meds Active Enoxaparin Sodium 80 Mg/0.8 Ml Syringe 80 Mg SC Q12H 5 Days Prednisone 10 Mg Tab.ds.pk 10 Mg PO DAILY Take 6 tabs(60mg)daily,decrease by 1 tab(10MG)daily. Reported Benadryl (Diphenhydramine HCl) 25 Mg Capsule 25-50 Mg PO Q6H PRN Multivitamin 1 Each Tablet 1 Each PO DAILY Aspirin EC (Aspirin) 81 Mg Tablet.dr 81 Mg PO DAILY Phenobarbital 64.8 Mg Tablet 129.6 Mg PO HS TAKES 2 (64.8MG) TABS AT BEDTIME Jantoven (Warfarin Sodium) 1 Mg Tablet 1 Mg PO HS TAKES A 5MG +1MG TO EQUAL 6MG DAILY Jantoven (Warfarin Sodium) 5 Mg Tablet 5 Mg PO HS TAKES A 5MG +1MG TO EQUAL 6MG DAILY D3-2000 (Cholecalciferol (Vitamin D3)) 50 Mcg Capsule 50 Mcg PO DAILY Vitamin B-6 (Pyridoxine HCl) 100 Mg Tablet 100 Mg PO DAILY Folic Acid-Vit B6-Vit B12 Tab (Calcium/Vit B12/FA/Pyridoxine) 1 Each Tablet 1 Each PO DAILY Clotrimazole-Betamethasone Crm (Clotrimazole/Betamethasone Dip) 15 Gm Cream..g. 1 Applic TP BID PRN Tessalon Perles (Benzonatate) 100 Mg Capsule 100-200 Mg PO TID PRN Albuterol Sulfate 2.5 Mg/0.5 Ml Vial.neb 2.5 Mg INH BID PRN WHEN IN A COPD FLARE HE TAKES A TREAMENT EVERY 4-6 HOURS *3-4 TIMES DAILY) Mucinex (Guaifenesin) 600 Mg Tab.er.12h 600 Mg PO BID PRN Metronidazole 45 Gm Gel..gram. 1 Applic TD BID PRN APPLIES TO THE FOREHEAD Miralax (Polyethylene Glycol 3350) 17 Gm Powd.pack 17 Gm PO DAILY Chlorhexidine Gluconate 473 Ml Mouthwash 5-10 Ml MT BID RINSE AND SPIT TWICE DAILY Symbicort 160-4.5 Mcg Inhaler (Budesonide/Formoterol Fumarate) 10.2 Gm Hfa.aer.ad 2 Puff IH BID Montelukast Sodium 10 Mg Tablet 10 Mg PO DAILY Furosemide 40 Mg Tablet 40 Mg PO DAILY Lisinopril 5 Mg Tablet 5 Mg PO DAILY Metoprolol Succinate 50 Mg Tab.er.24h 50 Mg PO DAILY Digoxin 250 Mcg Tablet 250 Mcg PO DAILY@1200 Phenytoin Sodium Extended 100 Mg Capsule 200 Mg PO DAILY TAKES 2 (100MG) CAPS IN THE MORNING AND 3 (100MG) CAPS AT 1800 Phenytoin Sodium Extended 100 Mg Capsule 300 Mg PO 1800 TAKES 2 (100MG) CAPS IN THE MORNING AND 3 (100MG) CAPS AT 1800 Simvastatin 10 Mg Tablet 10 Mg PO HS Levothyroxine Sodium 75 Mcg Tablet 75 Mcg PO DAILY Assessment/Pt Instructions Take medications as prescribed. Begin taking Lovenox until your warfarin is therapeutic. He will have a recheck of your INR on Saturday. You are being set up with home oxygen 2 L continuously. You should complete a course of steroids for COPD. Follow-up with your primary care physician in about a week. Resume home health care. Discharge Planning: <30 minutes discharge planning Discharge Instructions Discharge Diet: No Restrictions Activity as Tolerated: Yes Discharge Physical Examination Vital Signs Vital Signs Date Time Temp Pulse Resp B/P (MAP) Pulse Ox O2 Delivery O2 Flow Rate FiO2 03/09/20 12:00 Nasal Cannula 3.00 03/09/20 11:18 36.5 63 18 99 03/09/20 00:00 40 General Appearance: No Apparent Distress, Chronically ill Respiratory: No Respiratory Distress, Crackles, Other (Wearing nasal cannula) Cardiovascular: Regular Rate, Rhythm, No Murmur Gastrointestinal: Normal Bowel Sounds, Non Tender, Soft Extremity: Normal Inspection, Non Tender, Pedal Edema Skin: Normal Color, Warm/Dry Neurologic/Psychiatric: Alert, Oriented x3, No Motor/Sensory Deficits, Normal Mood/Affect Allergies: Coded Allergies: amiodarone (Verified Allergy, Severe, 03/13/19) lorazepam (Verified Allergy, Unknown, 03/13/19) scopolamine (Verified Allergy, Unknown, 03/13/19) Copy Copies To 1: JULISSA VASQUEZ MD Discharge Summary Date of Admission Mar 06, 2020 at 14:00 Date of Discharge Discharge Date: Mar 09, 2020 Discharge Time: 15:13 Admission Diagnosis Acute on chronic respiratory failure with hypoxia Consults/Procedures Consulations Cardiology, pulmonology Discharge Diagnosis Acute on chronic respiratory failure with hypoxia due to acute pulmonary embolism (1) Pulmonary emboli Status: Acute Qualifiers: Qualified Codes: I26.94 - Multiple subsegmental pulmonary emboli without acute cor pulmonale (2) Acute on chronic respiratory failure with hypoxia Status: Acute (3) COPD with exacerbation Status: Acute (4) NSTEMI (non-ST elevation myocardial infarction) Status: Acute Clinical Quality Measures DVT/VTE Risk/Contraindication: Risk Factor Score Per Nursin RFS Level Per Nursing on Admit: 4+=Very High CALI BUCKLEY MD Mar 09, 2020 15:13
== END 2020-03-09 15:30 | disposition home health service (06) | DRG 175 ==
LOC: EDUNIT# 09:51 → ER 09:52 → CSD 14:00
PROVIDERS: ADMIT Internal Medicine; ATTEND Internal Medicine
DX: I26.99 Other pulmonary embolism without acute cor pulmonale (principal); J96.21 Acute and chronic respiratory failure with hypoxia; I21.A1 Myocardial infarction type 2; I50.22 Chronic systolic (congestive) heart failure; G40.919 Epilepsy, unspecified, intractable, without status epilepticus; J43.9 Emphysema, unspecified; I11.0 Hypertensive heart disease with heart failure; I25.5 Ischemic cardiomyopathy; Z66 Do not resuscitate; I25.10 Atherosclerotic heart disease of native coronary artery without angina pectoris; I08.1 Rheumatic disorders of both mitral and tricuspid valves; G47.36 Sleep related hypoventilation in conditions classified elsewhere; K21.9 Gastro-esophageal reflux disease without esophagitis; M54.9 Dorsalgia, unspecified; I65.23 Occlusion and stenosis of bilateral carotid arteries; I73.9 Peripheral vascular disease, unspecified; E78.5 Hyperlipidemia, unspecified; E03.9 Hypothyroidism, unspecified; G62.9 Polyneuropathy, unspecified; K22.0 Achalasia of cardia; M19.91 Primary osteoarthritis, unspecified site; F32.9 Major depressive disorder, single episode, unspecified; Z20.828 Contact with and (suspected) exposure to other viral communicable diseases; Z95.1 Presence of aortocoronary bypass graft; Z95.5 Presence of coronary angioplasty implant and graft; Z99.81 Dependence on supplemental oxygen; Z79.82 Long term (current) use of aspirin; Z79.01 Long term (current) use of anticoagulants; Z95.810 Presence of automatic (implantable) cardiac defibrillator; I69.898 Other sequelae of other cerebrovascular disease; Z86.74 Personal history of sudden cardiac arrest; Z87.891 Personal history of nicotine dependence
CPT/HCPCS: 36415; 36600; 71045; 71275; 80048; 80053; 80185; 82805; 83605; 83735; 83880; 84100; 84145; 84484; 85025; 85379; 85610; 85652; 85730; 86141; 87040; 87635; 93005; 94640; 94660; 94760; 94761

== ENCOUNTER → 2020-06-14 | Outpatient (CLI) | payer MEDICARE ==
[~2020-06-14] MED LIST changes: +ASPI-1238 PO; -ASPI-983 PO; -CHOL2000 PO; +CHOL200074 PO; +ENOX80DI7 SC; +MULT-1136 PO; +WARF1TAB8 PO; +WRF5T PO
[2020-06-14 11:51] LABS: INR 2.8 (0.8-1.4); PROTHROMBIN TIME PATIENT 29.9 SEC (12.2-14.7)
== END ==
LOC: LABNPT 11:33
PROVIDERS: ATTEND Internal Medicine
DX: I11.9 Hypertensive heart disease without heart failure (principal); J44.9 Chronic obstructive pulmonary disease, unspecified; E78.5 Hyperlipidemia, unspecified; R21 Rash and other nonspecific skin eruption; Z86.711 Personal history of pulmonary embolism; Z79.01 Long term (current) use of anticoagulants
CPT/HCPCS: 85610

== ENCOUNTER → 2020-08-09 | Outpatient (CLI) | payer OTHER, MEDICARE ==
[~2020-08-09] MED LIST changes: -MONT10TA26 PO; +MONT10TA97 PO
[2020-08-09 12:35] LABS: INR 2.4 (0.8-1.4); PROTHROMBIN TIME PATIENT 26.7 SEC (12.2-14.7)
== END ==
LOC: LABNPT 12:13
PROVIDERS: ATTEND Internal Medicine
DX: E78.49 Other hyperlipidemia (principal); E03.9 Hypothyroidism, unspecified; J44.9 Chronic obstructive pulmonary disease, unspecified; I11.9 Hypertensive heart disease without heart failure; G40.89 Other seizures; F41.9 Anxiety disorder, unspecified; R21 Rash and other nonspecific skin eruption; Z86.711 Personal history of pulmonary embolism; Z79.01 Long term (current) use of anticoagulants
CPT/HCPCS: 85610

== ENCOUNTER → 2020-09-13 | Outpatient (CLI) | payer OTHER, MEDICARE ==
[2020-09-13 12:38] LABS: INR 2.8 (0.8-1.4)
== END ==
LOC: HOSHH 12:17
PROVIDERS: ATTEND Internal Medicine
DX: G40.909 Epilepsy, unspecified, not intractable, without status epilepticus (principal); Z79.01 Long term (current) use of anticoagulants
CPT/HCPCS: 85610

== ENCOUNTER → 2020-09-15 | Outpatient (CLI) | payer OTHER, MEDICARE | LOC: LABNPT 10:02 | PROVIDERS: ATTEND Internal Medicine | DX: G40.909 Epilepsy, unspecified, not intractable, without status epilepticus (principal) | CPT/HCPCS: 80162; 80185; 80186 ==

== ENCOUNTER → 2020-10-07 | Outpatient (CLI) | payer OTHER, MEDICARE ==
[2020-10-07 19:27] LABS: BILIRUBIN,URINE NEGATIVE (NEGATIVE); CLARITY,URINE SL CLOUDY; COLOR,URINE YELLOW; GLUCOSE, URINE (UA) NEGATIVE (NEGATIVE); KETONES,URINE NEGATIVE (NEGATIVE); LEUKOCYTE ESTERASE ,URINE 1+ (NEGATIVE); NITRITE,URINE POSITIVE (NEGATIVE); PROTEIN,URINE TRACE (NEGATIVE)
[2020-10-07 19:36] LABS: AMORPHOUS SEDIMENT,UR FEW AMOR URATES /LPF; BACTERIA,URINE LARGE /HPF; SQUAMOUS EPITHELIAL CELL,UR 0-2 /HPF; WBC,URINE >100 /HPF
== END ==
LOC: LABNPT 18:35
PROVIDERS: ATTEND Internal Medicine
DX: R50.9 Fever, unspecified (principal)
CPT/HCPCS: 81000; 87077; 87088; 87186

== ENCOUNTER → 2020-10-18 | Outpatient (CLI) | payer OTHER, MEDICARE ==
[~2020-10-18] MED LIST changes: -LISI-556 PO; +LISI-729 PO; +MONT10TA32 PO; -MONT10TA97 PO
[2020-10-18 11:50] LABS: INR 2.7 (0.8-1.4); PROTHROMBIN TIME PATIENT 28.8 SEC (12.2-14.7)
== END ==
LOC: LABNPT 11:29
PROVIDERS: ATTEND Internal Medicine
DX: Z79.01 Long term (current) use of anticoagulants (principal)
CPT/HCPCS: 85610

== ENCOUNTER → 2020-10-26 | Outpatient (CLI) | payer OTHER, MEDICARE ==
[2020-10-26 16:52] LABS: INR 1.5 (0.8-1.4); PROTHROMBIN TIME PATIENT 18.6 SEC (12.2-14.7)
== END ==
LOC: HOSHH 16:32
PROVIDERS: ATTEND Internal Medicine
DX: Z79.01 Long term (current) use of anticoagulants (principal)
CPT/HCPCS: 85610

== ENCOUNTER → 2020-10-31 | Outpatient (CLI) | payer OTHER, MEDICARE ==
[2020-10-31 11:52] LABS: INR 2.6 (0.8-1.4); PROTHROMBIN TIME PATIENT 28.1 SEC (12.2-14.7)
== END ==
LOC: LABNPT 11:36
PROVIDERS: ATTEND Internal Medicine
DX: Z79.01 Long term (current) use of anticoagulants (principal)
CPT/HCPCS: 85610

== ENCOUNTER → 2020-11-29 | Outpatient (CLI) | payer OTHER, MEDICARE ==
[2020-11-29 10:58] LABS: PROTHROMBIN TIME PATIENT 39.2 SEC (12.2-14.7)
== END ==
LOC: LABNPT 10:37
PROVIDERS: ATTEND Internal Medicine
DX: Z79.01 Long term (current) use of anticoagulants (principal); Z86.711 Personal history of pulmonary embolism
CPT/HCPCS: 85610

== ENCOUNTER 2020-12-02 12:11 | Emergency (ER) | payer OTHER, MEDICARE ==
[~2020-12-02] VITALS: Ht 182 cm; Wt 87.0 kg
--- NOTE | 2020-12-02 12:59 | ED Fall/Injury ---
General Chief Complaint: Trauma-Non Activation Stated Complaint: FALL Nursing Triage Note: ARRIVED FROM [facility] AFTER HAVING A UNWITTNESSED FALL. PT DENIES LOC. COMPLAINS OF HEAD PAIN. Source: patient, EMS Exam Limitations: no limitations History of Present Illness Date Seen by Provider: Dec 02, 2020 Time Seen by Provider: 12:11 Initial Comments Patient presents to the ER by EMS from assisted living with chief complaint of an unwitnessed fall striking his head no loss of consciousness. Patient gives full history and states he was opening the door and his walker was behind him and it tripped him up he fell backwards striking the back of his head against the folding closet doors. He denies loss of consciousness however he does use warfarin for history of atrial fibrillation. He has a skin tear on his right posterior upper arm and on the occiput of his scalp where he struck the door. He is not having any pain in his back. He has chronic pain in his neck so EMS established a c-collar precaution. He says the pain is no different or worse than usual. No history of surgery on his neck and he has had imaging in the past but does not recall any significant findings. Patient is having no confusion dysuria he just said he needed to get up and go to the bathroom and often has urge incontinence so he was trying to hurry. He states he puts his call light on but it takes them sometimes an hour and a half to get to him to go to the bathroom. His follows up shortly and she is unaware of his tetanus vaccination status. She states that he had a fall last week and had some skin tears at that time. He was also found to be supratherapeutic so his warfarin was stopped Saturday, 3 days ago. Allergies and Home Medications Allergies Coded Allergies: amiodarone (Verified Allergy, Severe, 03/13/19) lorazepam (Verified Allergy, Unknown, 03/13/19) scopolamine (Verified Allergy, Unknown, 03/13/19) Home Medications Albuterol Sulfate 2.5 Mg/0.5 Ml Vial.neb, 2.5 MG INH BID PRN for SHORTNESS OF BREATH, (Reported) WHEN IN A COPD FLARE HE TAKES A TREAMENT EVERY 4-6 HOURS *3-4 TIMES DAILY) Aspirin 81 Mg Tablet.dr, 81 MG PO DAILY, (Reported) Benzonatate 100 Mg Capsule, 100-200 MG PO TID PRN for COUGH, (Reported) Budesonide/Formoterol Fumarate 10.2 Gm Hfa.aer.ad, 2 PUFF IH BID, (Reported) Calcium/Vit B12/FA/Pyridoxine 1 Each Tablet, 1 EACH PO DAILY, (Reported) Chlorhexidine Gluconate 473 Ml Mouthwash, 5-10 ML MT BID, (Reported) RINSE AND SPIT TWICE DAILY Cholecalciferol (Vitamin D3) 50 Mcg Capsule, 50 MCG PO DAILY, (Reported) Clotrimazole/Betamethasone Dip 15 Gm Cream..g., 1 APPLIC TP BID PRN for ITCHING, (Reported) Digoxin 250 Mcg Tablet, 250 MCG PO DAILY@1200, (Reported) Diphenhydramine HCl 25 Mg Capsule, 25-50 MG PO Q6H PRN for ITCHING, (Reported) Enoxaparin Sodium 80 Mg/0.8 Ml Syringe, 80 MG SC Q12H Prescribed by: CALI BUCKLEY on 03/09/20 1127 Furosemide 40 Mg Tablet, 40 MG PO DAILY, (Reported) Guaifenesin 600 Mg Tab.er.12h, 600 MG PO BID PRN for CONGESTION, (Reported) Levothyroxine Sodium 75 Mcg Tablet, 75 MCG PO DAILY, (Reported) Lisinopril 5 Mg Tablet, 5 MG PO DAILY, (Reported) Metoprolol Succinate 50 Mg Tab.er.24h, 50 MG PO DAILY, (Reported) Metronidazole 45 Gm Gel..gram., 1 APPLIC TD BID PRN for BREAKOUT, (Reported) APPLIES TO THE FOREHEAD Montelukast Sodium 10 Mg Tablet, 10 MG PO DAILY, (Reported) Multivitamin 1 Each Tablet, 1 EACH PO DAILY, (Reported) Phenobarbital 64.8 Mg Tablet, 129.6 MG PO HS, (Reported) TAKES 2 (64.8MG) TABS AT BEDTIME Phenytoin Sodium Extended 100 Mg Capsule, 300 MG PO 1800, (Reported) TAKES 2 (100MG) CAPS IN THE MORNING AND 3 (100MG) CAPS AT 1800 Phenytoin Sodium Extended 100 Mg Capsule, 200 MG PO DAILY, (Reported) TAKES 2 (100MG) CAPS IN THE MORNING AND 3 (100MG) CAPS AT 1800 Polyethylene Glycol 3350 17 Gm Powd.pack, 17 GM PO DAILY, (Reported) Prednisone 10 Mg Tab.ds.pk, 10 MG PO DAILY Take 6 tabs(60mg)daily,decrease by 1 tab(10MG)daily. Prescribed by: CALI BUCKLEY on 03/09/20 1127 Pyridoxine HCl 100 Mg Tablet, 100 MG PO DAILY, (Reported) Simvastatin 10 Mg Tablet, 10 MG PO HS, (Reported) Warfarin Sodium 5 Mg Tablet, 5 MG PO HS, (Reported) TAKES A 5MG +1MG TO EQUAL 6MG DAILY Warfarin Sodium 1 Mg Tablet, 1 MG PO HS, (Reported) TAKES A 5MG +1MG TO EQUAL 6MG DAILY Patient Home Medication List Home Medication List Reviewed: Yes Review of Systems Review of Systems Constitutional: No chills, No diaphoresis Eyes: Denies Blindness, Denies Blurred Vision Ears, Nose, Mouth, Throat: denies ear pain, denies ear discharge Respiratory: No cough, No short of breath Cardiovascular: No edema, No palpitations Gastrointestinal: No abdominal pain, No nausea Genitourinary: No discharge, No dysuria Musculoskeletal: No back pain, No joint pain All Other Systems Reviewed Negative Unless Noted: Yes Past Edutjas-Ysnzar-Wbxxkp Hx Patient Social History Alcohol Use: Denies Use Smoking Status: Former Smoker Type Used: Cigarettes Former Smoker, Quit: Jan 31, 1990 2nd Hand Smoke Exposure: No Recent Infectious Disease Expo: No Recent Hopitalizations: No Immunizations Up To Date Tetanus Booster (TDap): Less than 5yrs PED Vaccines UTD: Yes Date of Pneumonia Vaccine: January 20, 2015 Date of Influenza Vaccine: May 10, 2019 Seasonal Allergies Seasonal Allergies: Yes Past Medical History Surgeries: Yes (SEE BELOW) Cardiac, CABG, Coronary Stent, Defibrillator, Eye Surgery, Pacemaker Respiratory: Yes (INTUBATED 2012; WEARS OXYGEN) Pneumonia, Chronic Bronchitis, COPD Currently Using CPAP: No Currently Using BIPAP: No Cardiac: Yes (3 VESSEL CABG; STENTS X 2; CHF; CARDIAC ARREST 12/1997;CAROTID DISEASE;LBBB) Cardiomyopathy, Coronary Artery Disease, High Cholesterol, Hypertension, Peripheral Vascular Neurological: Yes (Brain biopsy 1990; SEIZURES SINCE 1990;FALLS/POOR BALANCE) Neuropathy, Seizure Disorder, Stroke Reproductive Disorders: No Sexually Transmitted Disease: No Genitourinary: Yes Bladder Infection, Renal Failure Gastrointestinal: Yes (ACHALASIA;) Abdominal Hernia 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;LEG FX 1964;L HUMERUS FX 2013;FALLS/POOR BALANCE) Degenerate Disk Disease, Arthritis, Chronic Back Pain, Fractures Endocrine: Yes Hypothyroidsim HEENT: Yes Cataract Hearing Impairment: Hard of Hearing Cancer: Yes (pre-skin cancer) Skin Did You Recieve Any Treatments: Yes What Type of Treatment Did You: Surgical Intervention Psychosocial: Yes Depression Integumentary: No (chronic rash over 2 months, vs pre skin cancer) Blood Disorders: No Adverse Reaction/Blood Tranf: No Family Medical History Arthritis 19 MOTHER, Cardiovascular disease G8 BROTHER, G8 BROTHER, , Age:67 G8 BROTHER G8 SISTER Cataracts G8 BROTHER, , Age:67 G8 BROTHER Completed stroke 19 MOTHER, Deafness or hearing loss G8 BROTHER G8 BROTHER Diabetes mellitus G8 SISTER Headache disorder 19 FATHER, 19 MOTHER, G8 BROTHER, G8 BROTHER, , Age:67 G8 BROTHER G8 BROTHER G8 SISTER Hypercholesterolemia G8 BROTHER, , Age:67 G8 BROTHER G8 BROTHER G8 SISTER Hypertension 19 MOTHER, G8 BROTHER G8 SISTER Myocardial infarction G8 BROTHER, , Age:67 G8 BROTHER G8 SISTER Respiratory disorder G8 BROTHER, Thyroid disease G8 SISTER No Family History of: AIDS Abdominal aortic aneurysm [place]'s disease Alcoholism Alzheimer's disease Aphasia Asthma Cancer of mouth Colon cancer Congenital disease Congenital heart disease Cystic fibrosis Dementia Drug abuse Dysphasia Fibrocystic disease of breast Gastroenteritis Glaucoma Infertility Kidney disease Neoplasm Not obtainable due to adoption Osteoporosis Parkinson's disease Prostate cancer Psychosocial problem Seizure disorder Severe allergy Tuberculosis Visual disorder No Pertinent Family Hx PSH: -HERNIA REPAIR 1977 -3 VESSEL CABG 1990--DR. WESTON -BRAIN BIOPSY ON RIGHT 1990 -DEFIBRILLATOR/PACEMAKER 1997, WITH REPLACEMENTS--LAST REPLACEMENT 05/10/15 -ORAL SURGERY 1998 -LEFT EYE SURGERY TO REMOVE PTERYGIUM 1999 -RIGHT EYE SURGERY TO REMOVE PTERYGIUM 2012 -CARDIAC CATHS--2 STENTS 2009 -BRONCHOSCOPY -COLONOSCOPY -SKIN CANCER REMOVED - ADDITIONAL PMH: -MULTIPLE ADMITS FOR COPD AND PNEUMONIA, WITH RESPIRATORY FAILURE AND HAS BEEN INTUBATED IN 2013-HAD PNEUMONIA, INFLUENZA B AND CHF, THEN MOST RECENTLY ADMITTED 11/02/19-11/15 WITH PNEUMONIA/RESPIRATORY FAILURE AND INFLUENZA B AND CHG-NO INTUBATION. Physical Exam Vital Signs Vital Signs - First Documented 12/02/20 12:11 Temp 37.0 Pulse 71 Resp 16 B/P (MAP) 148/75 (99) Pulse Ox 94 O2 Delivery Room Air Capillary Refill : Less Than 3 Seconds Height, Weight, BMI Height: 6'0" Weight: 187lbs. 0.0oz. [id number]; 26.00 BMI Method:Stated General Appearance: WD/WN, no apparent distress HEENT: PERRL/EOMI (5 mm reactive bilaterally symmetric), normal ENT inspection, TMs normal (Negative for richardson sign), pharynx normal (Mucosa is moist), other (3 cm linear superficial skin flap on the 6 midline occiput and a 1 cm superficial hemostatic skin tear flap on the right distal humerus) Neck: non-tender, full range of motion, supple, normal inspection Cardiovascular: normal peripheral pulses, regular rate, rhythm Respiratory: lungs clear, normal breath sounds, no respiratory distress, no accessory muscle use Peripheral Pulses: 2+ Radial Pulses (R), 2+ Radial Pulses (L) Gastrointestinal: normal bowel sounds, non tender, soft Neurologic/Psychiatric: alert, normal mood/affect, oriented x 3 Skin: normal color, warm/dry [place] Coma Score Best Eye Response: (4) Open Spontaneously Best Verbal Response: (5) Oriented Best Motor Response: (6) Obeys Commands Piero Total: 15 Procedures/Interventions Wound Location: Scalp (occiput) Wound Length (cm): 4 Wound's Depth, Shape: superficial, linear Wound Explored: no foreign body removed Other Closure Supply: Wound Adhesive Progress/Results/Core Measures Results/Orders Lab Results Laboratory Tests Test 12/02/20 12:51 12/02/20 13:15 Range/Units Sodium Level 136 135-145 MMOL/L Potassium Level 5.0 3.6-5.0 MMOL/L Chloride Level 98 98-107 MMOL/L Carbon Dioxide Level 27 21-32 MMOL/L Anion Gap 11 5-14 MMOL/L Blood Urea Nitrogen 18 7-18 MG/DL Creatinine 0.82 0.60-1.30 MG/DL Estimat Glomerular Filtration Rate > 60 BUN/Creatinine Ratio 22 Glucose Level 79 70-105 MG/DL Calcium Level 9.0 8.5-10.1 MG/DL Corrected Calcium 9.3 8.5-10.1 MG/DL Total Bilirubin 0.3 0.1-1.0 MG/DL Aspartate Amino Transf (AST/SGOT) 20 5-34 U/L Alanine Aminotransferase (ALT/SGPT) 29 0-55 U/L Alkaline Phosphatase 138 H 40-136 U/L Total Protein 8.0 6.4-8.2 GM/DL Albumin 3.6 3.2-4.5 GM/DL White Blood Count 6.9 4.3-11.0 10^3/uL Red Blood Count 3.78 L 4.30-5.52 10^6/uL Hemoglobin 12.1 L 13.3-17.7 g/dL Hematocrit 37 L 40-54 % Mean Corpuscular Volume 97 80-99 fL Mean Corpuscular Hemoglobin 32 25-34 pg Mean Corpuscular Hemoglobin Concent 33 32-36 g/dL Red Cell Distribution Width 14.1 10.0-14.5 % Platelet Count 193 130-400 10^3/uL Mean Platelet Volume 9.4 9.0-12.2 fL Immature Granulocyte % (Auto) 1 % Neutrophils (%) (Auto) 61 42-75 % Lymphocytes (%) (Auto) 16 12-44 % Monocytes (%) (Auto) 13 H 0-12 % Eosinophils (%) (Auto) 7 0-10 % Basophils (%) (Auto) 1 0-10 % Neutrophils # (Auto) 4.2 1.8-7.8 10^3/uL Lymphocytes # (Auto) 1.1 1.0-4.0 10^3/uL Monocytes # (Auto) 0.9 0.0-1.0 10^3/uL Eosinophils # (Auto) 0.5 H 0.0-0.3 10^3/uL Basophils # (Auto) 0.1 0.0-0.1 10^3/uL Immature Granulocyte # (Auto) 0.1 0.0-0.1 10^3/uL My Orders Orders - JEFFERY AYERS Cbc With Automated Diff (12/02/20 12:42) Comprehensive Metabolic Panel (12/02/20 12:42) Ua Culture If Indicated (12/02/20 12:42) Protime With Inr (12/02/20 12:42) Ct Head/Cervical Spine Wo (12/02/20 12:42) Vital Signs/I&O 12/02/20 12:11 Temp 37.0 Pulse 71 Resp 16 B/P (MAP) 148/75 (99) Pulse Ox 94 O2 Delivery Room Air Blood Pressure Mean: 99 Progress Progress Note #1: Time: 12:56 Progress Note Labs check the PT/INR. His c-collar was cleared at [address] of his head and C-spine. Plan to glue these superficial occipital scalp laceration and dressed the right arm skin tear. Progress Note #2: Time: 13:16 Progress Note Again some more history from the about him being supratherapeutic on his INR earlier in the week. Unfortunately the blood draws from earlier were inadequate so we are redrawing lab. Cleaning the wounds up and putting some glue on his lacerations. Primary care team and decided to discontinue warfarin permanently as he was having too many falls. Diagnostic Imaging Diagonstic Imaging: CT Plain Films/CT/US/NM/MRI: c-spine, head Comments NAME: LLUVIA [facility]DBERG [facility] REC#: [id number] PT STATUS: REG ER : 1940 PHYSICIAN: JEFFERY AYERS MD ADMIT DATE: 12/02/20/ER Draft Date of Exam:12/02/20 CT HEAD/CERVICAL SPINE WO PROCEDURE: CT head and CT cervical spine without contrast. TECHNIQUE: Multiple contiguous axial images were obtained through the brain and cervical spine without the use of intravenous contrast. Sagittal and coronal reformations through the cervical spine were then performed. Auto Exposure Controls were utilized during the CT exam to meet ALARA standards for radiation dose reduction. INDICATION: Trauma COMPARISON with head CT 06/05/2019. Head: Intraparenchymal course well-defined, chronic calcifications in the centrum semiovale at the frontoparietal junction are unchanged with larissa-calcification regional encephalomalacia and hypodensity chronic right greater than left unchanged. Ventricular calibers and morphology stable. No cerebral edema. No fracture or hemorrhage. No mass effect or acute finding. No interval change. Cervical spine: Degenerative changes to the discs, endplates and facets throughout the cervical spine. No fracture could be identified, at the desktop, reconstruction views were performed showing no traumatic malalignment. Vascular calcifications, chronic. The central skull base intact. IMPRESSION: CT head: Stable chronic parenchymal calcifications and larissa-calcification encephalomalacia. No hemorrhage, fracture or acute finding. No change. Cervical spine: Degenerative change without fracture or traumatic malalignment Dictated on workstation # [id number] Dict: 12/02/20 1314 Trans: 12/02/20 1332 [facility] [id number] Interpreted by: LLUVIA WASHINGTON Electronically signed by: Reviewed: Reviewed by Me Departure Impression Primary Impression: Fall Qualified Codes: W19.XXXA - Unspecified fall, initial encounter Additional Impressions: Skin tear Laceration of occipital region of scalp without complication Qualified Codes: S01.01XA - Laceration without foreign body of scalp, initial encounter Disposition: HOME, SELF-CARE Condition: Stable Departure-Patient Inst. Decision time for Depature: 13:20 Referrals: JULISSA VASQUEZ MD (PCP/Family) Primary Care Physician Patient Instructions: Laceration Repair With Glue (DC) Add. Discharge Instructions: Your tetanus vaccine is up-to-date. The glue will flake off on its own over the next week as you shower. It does not need any help. Talk to your doctor if you are having increasing redness swelling or discharge around the wounds that might indicate an infection. Do not resume your warfarin. It is okay to continue taking aspirin. All discharge instructions reviewed with patient and/or family. Voiced understanding. JEFFERY AYERS Dec 02, 2020 12:58
[2020-12-02 13:23] LABS: ALANINE AMINOTRANSFERASE 29 U/L (0-55); ALBUMIN 3.6 GM/DL (3.2-4.5); ALKALINE PHOSPHATASE 138 U/L (40-136); BILIRUBIN,TOTAL 0.3 MG/DL (0.1-1.0); BUN/CREATININE RATIO 22; CARBON DIOXIDE 27 MMOL/L (21-32); CHLORIDE 98 MMOL/L (98-107); CREATININE SERUM 0.82 MG/DL (0.60-1.30); GFR ESTIMATED > 60; GLUCOSE 79 MG/DL (70-105); SODIUM 136 MMOL/L (135-145)
[2020-12-02 13:25] LABS: BASOPHILS # (AUTO) 0.1 10^3/uL (0.0-0.1); BASOPHILS % (AUTO) 1 % (0-10); EOSINOPHILS # (AUTO) 0.5 10^3/uL (0.0-0.3); EOSINOPHILS % (AUTO) 7 % (0-10); HEMATOCRIT 37 % (40-54); HEMOGLOBIN 12.1 g/dL (13.3-17.7); LYMPHOCYTES # (AUTO) 1.1 10^3/uL (1.0-4.0); LYMPHOCYTES % (AUTO) 16 % (12-44); MEAN CORPUSCULAR HEMOGLOBIN 32 pg (25-34); MEAN CORPUSCULAR HGB CONC 33 g/dL (32-36); MEAN CORPUSCULAR VOLUME 97 fL (80-99); MEAN PLATELET VOLUME 9.4 fL (9.0-12.2); MONOCYTES # (AUTO) 0.9 10^3/uL (0.0-1.0); MONOCYTES % (AUTO) 13 % (0-12); NEUTROPHILS # (AUTO) 4.2 10^3/uL (1.8-7.8); NEUTROPHILS % (AUTO) 61 % (42-75); PLATELET COUNT 193 10^3/uL (130-400); WHITE BLOOD COUNT 6.9 10^3/uL (4.3-11.0)
--- NOTE | 2020-12-02 13:33 | Diagnostic Imaging Report ---
PROCEDURE: CT head and CT cervical spine without contrast. TECHNIQUE: Multiple contiguous axial images were obtained through the brain and cervical spine without the use of intravenous contrast. Sagittal and coronal reformations through the cervical spine were then performed. Auto Exposure Controls were utilized during the CT exam to meet ALARA standards for radiation dose reduction. INDICATION: Trauma COMPARISON with head CT 06/05/2019. Head: Intraparenchymal course well-defined, chronic calcifications in the centrum semiovale at the frontoparietal junction are unchanged with larissa-calcification regional encephalomalacia and hypodensity chronic right greater than left unchanged. Ventricular calibers and morphology stable. No cerebral edema. No fracture or hemorrhage. No mass effect or acute finding. No interval change. Cervical spine: Degenerative changes to the discs, endplates and facets throughout the cervical spine. No fracture could be identified, at the desktop, reconstruction views were performed showing no traumatic malalignment. Vascular calcifications, chronic. The central skull base intact. IMPRESSION: CT head: Stable chronic parenchymal calcifications and larissa-calcification encephalomalacia. No hemorrhage, fracture or acute finding. No change. Cervical spine: Degenerative change without fracture or traumatic malalignment Dictated by: Dictated on workstation # [id number]
[2020-12-02 13:38] LABS: INR 1.3 (0.8-1.4); PROTHROMBIN TIME PATIENT 16.7 SEC (12.2-14.7)
[2020-12-02 14:00] VITALS: BP 140/71
== END 2020-12-02 14:00 | disposition home or self-care (01) ==
LOC: EDUNIT# 12:11 → ER 12:13
DX: S01.01XA Laceration without foreign body of scalp, initial encounter (principal); S41.111A Laceration without foreign body of right upper arm, initial encounter; I11.0 Hypertensive heart disease with heart failure; I50.9 Heart failure, unspecified; I48.91 Unspecified atrial fibrillation; I25.10 Atherosclerotic heart disease of native coronary artery without angina pectoris; E78.00 Pure hypercholesterolemia, unspecified; E03.9 Hypothyroidism, unspecified; F32.9 Major depressive disorder, single episode, unspecified; G40.909 Epilepsy, unspecified, not intractable, without status epilepticus; J44.9 Chronic obstructive pulmonary disease, unspecified; Z87.891 Personal history of nicotine dependence; Z85.820 Personal history of malignant melanoma of skin; Z86.73 Personal history of transient ischemic attack (TIA), and cerebral infarction without residual deficits; Z87.81 Personal history of (healed) traumatic fracture; Z95.5 Presence of coronary angioplasty implant and graft; Z95.1 Presence of aortocoronary bypass graft; Z95.810 Presence of automatic (implantable) cardiac defibrillator; Z79.01 Long term (current) use of anticoagulants; Z79.82 Long term (current) use of aspirin; Z79.51 Long term (current) use of inhaled steroids; Z79.52 Long term (current) use of systemic steroids; Z79.890 Hormone replacement therapy; Z88.8 Allergy status to other drugs, medicaments and biological substances; W01.198A Fall on same level from slipping, tripping and stumbling with subsequent striking against other object, initial encounter; Y92.129 Unspecified place in nursing home as the place of occurrence of the external cause
CPT/HCPCS: 12001; 36415; 70450; 72125; 80053; 85025; 85610

== ENCOUNTER 2020-12-10 01:33 | Emergency (ER) | payer OTHER, MEDICARE ==
[~2020-12-10] VITALS: Ht 182.8 cm; Wt 92.1 kg
[2020-12-10 02:38] LABS: BASOPHILS # (AUTO) 0.1 10^3/uL (0.0-0.1); BASOPHILS % (AUTO) 1 % (0-10); EOSINOPHILS # (AUTO) 0.5 10^3/uL (0.0-0.3); EOSINOPHILS % (AUTO) 6 % (0-10); HEMATOCRIT 35 % (40-54); HEMOGLOBIN 11.6 g/dL (13.3-17.7); LYMPHOCYTES # (AUTO) 1.1 10^3/uL (1.0-4.0); LYMPHOCYTES % (AUTO) 14 % (12-44); MEAN CORPUSCULAR HEMOGLOBIN 32 pg (25-34); MEAN CORPUSCULAR HGB CONC 33 g/dL (32-36); MEAN CORPUSCULAR VOLUME 98 fL (80-99); MEAN PLATELET VOLUME 9.6 fL (9.0-12.2); MONOCYTES % (AUTO) 12 % (0-12); NEUTROPHILS # (AUTO) 5.1 10^3/uL (1.8-7.8); NEUTROPHILS % (AUTO) 65 % (42-75); PLATELET COUNT 150 10^3/uL (130-400); WHITE BLOOD COUNT 7.8 10^3/uL (4.3-11.0)
[2020-12-10 02:51] LABS: CHLORIDE 102 MMOL/L (98-107); POTASSIUM 4.7 MMOL/L (3.6-5.0); SODIUM 136 MMOL/L (135-145)
[2020-12-10 02:52] LABS: CALCIUM 8.6 MG/DL (8.5-10.1); GLUCOSE 96 MG/DL (70-105)
[2020-12-10 02:54] LABS: CARBON DIOXIDE 23 MMOL/L (21-32)
[2020-12-10 02:56] LABS: CREATININE SERUM 0.84 MG/DL (0.60-1.30); GFR ESTIMATED > 60
[2020-12-10 02:57] LABS: BUN/CREATININE RATIO 20
[2020-12-10 02:59] LABS: MAGNESIUM 2.1 MG/DL (1.6-2.4)
[2020-12-10 03:13] LABS: BILIRUBIN,URINE NEGATIVE (NEGATIVE); CLARITY,URINE CLEAR; COLOR,URINE YELLOW; GLUCOSE, URINE (UA) NEGATIVE (NEGATIVE); KETONES,URINE NEGATIVE (NEGATIVE); LEUKOCYTE ESTERASE ,URINE NEGATIVE (NEGATIVE); NITRITE,URINE NEGATIVE (NEGATIVE); PH,URINE 6.5 (5-9); PROTEIN,URINE NEGATIVE (NEGATIVE)
[2020-12-10 03:16] LABS: BACTERIA,URINE NEGATIVE /HPF; SQUAMOUS EPITHELIAL CELL,UR RARE /HPF
--- NOTE | 2020-12-10 03:35 | ED Fall/Injury ---
General Chief Complaint: Chest Wall Stated Complaint: RIB PAIN Nursing Triage Note: PT TO ROOM 5 VIA [facility] W/ CO RIGHT SIDED RIB PAIN AFTER FALLING THREE TIMES. PT STATES PAIN RADIATES TO BACK. PT STATES HE FELL DUE TO TURNING AROUND TOO QUICKLY. PT STATES HE FELL AT 1400 TODAY. PT TOOK PAIN MEDICATION PRIOR TO GOING TO BED BUT IS UNSURE WHAT THEY WERE. Source: patient, family, EMS, old records Exam Limitations: no limitations History of Present Illness Date Seen by Provider: Dec 10, 2020 Time Seen by Provider: 01:34 Initial Comments This 80-year-old gentleman presents to the emergency room via EMS from [facility] where he has had multiple falls in recent days. He was also assessed here for a fall on December 02. He is a hospice patient and ambulates with a walker. He reports turning too quickly today resulting in the fall. He has since had right lateral chest wall pain and lower back pain. The injury occurred this afternoon. He comes up tonight because he is having difficulty sleeping due to the pain. He does not describe any head or neck injury on the most recent fall. He was recently taken off of warfarin therapy due to his frequent falls. He is presently enrolled in hospice. Allergies and Home Medications Allergies Coded Allergies: amiodarone (Verified Allergy, Severe, 03/13/19) lorazepam (Verified Allergy, Unknown, 03/13/19) scopolamine (Verified Allergy, Unknown, 03/13/19) Home Medications Albuterol Sulfate 2.5 Mg/0.5 Ml Vial.neb, 2.5 MG INH BID PRN for SHORTNESS OF BREATH, (Reported) WHEN IN A COPD FLARE HE TAKES A TREAMENT EVERY 4-6 HOURS *3-4 TIMES DAILY) Aspirin 81 Mg Tablet.dr, 81 MG PO DAILY, (Reported) Benzonatate 100 Mg Capsule, 100-200 MG PO TID PRN for COUGH, (Reported) Budesonide/Formoterol Fumarate 10.2 Gm Hfa.aer.ad, 2 PUFF IH BID, (Reported) Calcium/Vit B12/FA/Pyridoxine 1 Each Tablet, 1 EACH PO DAILY, (Reported) Chlorhexidine Gluconate 473 Ml Mouthwash, 5-10 ML MT BID, (Reported) RINSE AND SPIT TWICE DAILY Cholecalciferol (Vitamin D3) 50 Mcg Capsule, 50 MCG PO DAILY, (Reported) Clotrimazole/Betamethasone Dip 15 Gm Cream..g., 1 APPLIC TP BID PRN for ITCHING, (Reported) Digoxin 250 Mcg Tablet, 250 MCG PO DAILY@1200, (Reported) Diphenhydramine HCl 25 Mg Capsule, 25-50 MG PO Q6H PRN for ITCHING, (Reported) Enoxaparin Sodium 80 Mg/0.8 Ml Syringe, 80 MG SC Q12H Prescribed by: CALI BUCKLEY on 03/09/201126 Furosemide 40 Mg Tablet, 40 MG PO DAILY, (Reported) Guaifenesin 600 Mg Tab.er.12h, 600 MG PO BID PRN for CONGESTION, (Reported) Levothyroxine Sodium 75 Mcg Tablet, 75 MCG PO DAILY, (Reported) Lisinopril 5 Mg Tablet, 5 MG PO DAILY, (Reported) Metoprolol Succinate 50 Mg Tab.er.24h, 50 MG PO DAILY, (Reported) Metronidazole 45 Gm Gel..gram., 1 APPLIC TD BID PRN for BREAKOUT, (Reported) APPLIES TO THE FOREHEAD Montelukast Sodium 10 Mg Tablet, 10 MG PO DAILY, (Reported) Multivitamin 1 Each Tablet, 1 EACH PO DAILY, (Reported) Phenobarbital 64.8 Mg Tablet, 129.6 MG PO HS, (Reported) TAKES 2 (64.8MG) TABS AT BEDTIME Phenytoin Sodium Extended 100 Mg Capsule, 300 MG PO 1800, (Reported) TAKES 2 (100MG) CAPS IN THE MORNING AND 3 (100MG) CAPS AT 1800 Phenytoin Sodium Extended 100 Mg Capsule, 200 MG PO DAILY, (Reported) TAKES 2 (100MG) CAPS IN THE MORNING AND 3 (100MG) CAPS AT 1800 Polyethylene Glycol 3350 17 Gm Powd.pack, 17 GM PO DAILY, (Reported) Prednisone 10 Mg Tab.ds.pk, 10 MG PO DAILY Take 6 tabs(60mg)daily,decrease by 1 tab(10MG)daily. Prescribed by: CALI BUCKLEY on 03/09/201126 Pyridoxine HCl 100 Mg Tablet, 100 MG PO DAILY, (Reported) Simvastatin 10 Mg Tablet, 10 MG PO HS, (Reported) Warfarin Sodium 5 Mg Tablet, 5 MG PO HS, (Reported) TAKES A 5MG +1MG TO EQUAL 6MG DAILY Warfarin Sodium 1 Mg Tablet, 1 MG PO HS, (Reported) TAKES A 5MG +1MG TO EQUAL 6MG DAILY Patient Home Medication List Home Medication List Reviewed: Yes Review of Systems Review of Systems Constitutional: no symptoms reported Eyes: No Symptoms Reported Ears, Nose, Mouth, Throat: no symptoms reported Respiratory: no symptoms reported Cardiovascular: no symptoms reported Gastrointestinal: no symptoms reported Genitourinary: no symptoms reported Musculoskeletal: see HPI Skin: no symptoms reported Psychiatric/Neurological: No Symptoms Reported Past Msxwzth-Crolmp-Qlobiq Hx Past Med/Social Hx: Reviewed Nursing Past Med/Soc Hx Patient Social History Alcohol Use: Denies Use Smoking Status: Former Smoker Type Used: Cigarettes Former Smoker, Quit: Jan 31, 1990 2nd Hand Smoke Exposure: No Recent Infectious Disease Expo: No Recent Hopitalizations: No Immunizations Up To Date Tetanus Booster (TDap): Less than 5yrs PED Vaccines UTD: Yes Date of Pneumonia Vaccine: January 20, 2015 Date of Influenza Vaccine: May 10, 2019 Seasonal Allergies Seasonal Allergies: Yes Past Medical History Surgeries: Yes (SEE BELOW) Cardiac, CABG, Coronary Stent, Defibrillator, Eye Surgery, Pacemaker Respiratory: Yes (INTUBATED 2012; WEARS OXYGEN) Pneumonia, Chronic Bronchitis, COPD Currently Using CPAP: No Currently Using BIPAP: No Cardiac: Yes (3 VESSEL CABG; STENTS X 2; CHF; CARDIAC ARREST 12/1997;CAROTID DISEASE;LBBB) Cardiomyopathy, Coronary Artery Disease, High Cholesterol, Hypertension, Peripheral Vascular Neurological: Yes (Brain biopsy 1990; SEIZURES SINCE 1990;FALLS/POOR BALANCE) Neuropathy, Seizure Disorder, Stroke Reproductive Disorders: No Sexually Transmitted Disease: No Genitourinary: Yes Bladder Infection, Renal Failure Gastrointestinal: Yes (ACHALASIA;) Abdominal Hernia 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;LEG FX 1964;L HUMERUS FX 2013;FALLS/POOR BALANCE) Degenerate Disk Disease, Arthritis, Chronic Back Pain, Fractures Endocrine: Yes Hypothyroidsim HEENT: Yes Cataract Hearing Impairment: Hard of Hearing Cancer: Yes (pre-skin cancer) Skin Did You Recieve Any Treatments: Yes What Type of Treatment Did You: Surgical Intervention Psychosocial: Yes Depression Integumentary: No (chronic rash over 2 months, vs pre skin cancer) Blood Disorders: No Adverse Reaction/Blood Tranf: No Family Medical History Arthritis 19 MOTHER, Cardiovascular disease G8 BROTHER, G8 BROTHER, , Age:67 G8 BROTHER G8 SISTER Cataracts G8 BROTHER, , Age:67 G8 BROTHER Completed stroke 19 MOTHER, Deafness or hearing loss G8 BROTHER G8 BROTHER Diabetes mellitus G8 SISTER Headache disorder 19 FATHER, 19 MOTHER, G8 BROTHER, G8 BROTHER, , Age:67 G8 BROTHER G8 BROTHER G8 SISTER Hypercholesterolemia G8 BROTHER, , Age:67 G8 BROTHER G8 BROTHER G8 SISTER Hypertension 19 MOTHER, G8 BROTHER G8 SISTER Myocardial infarction G8 BROTHER, , Age:67 G8 BROTHER G8 SISTER Respiratory disorder G8 BROTHER, Thyroid disease G8 SISTER No Family History of: AIDS Abdominal aortic aneurysm Shreyas's disease Alcoholism Alzheimer's disease Aphasia Asthma Cancer of mouth Colon cancer Congenital disease Congenital heart disease Cystic fibrosis Dementia Drug abuse Dysphasia Fibrocystic disease of breast Gastroenteritis Glaucoma Infertility Kidney disease Neoplasm Not obtainable due to adoption Osteoporosis Parkinson's disease Prostate cancer Psychosocial problem Seizure disorder Severe allergy Tuberculosis Visual disorder No Pertinent Family Hx PSH: -HERNIA REPAIR 1977 -3 VESSEL CABG 1990--DR. WESTON -BRAIN BIOPSY ON RIGHT 1990 -DEFIBRILLATOR/PACEMAKER 1997, WITH REPLACEMENTS--LAST REPLACEMENT 05/10/15 -ORAL SURGERY 1998 -LEFT EYE SURGERY TO REMOVE PTERYGIUM 1999 -RIGHT EYE SURGERY TO REMOVE PTERYGIUM 2012 -CARDIAC CATHS--2 STENTS 2009 -BRONCHOSCOPY -COLONOSCOPY -SKIN CANCER REMOVED - ADDITIONAL PMH: -MULTIPLE ADMITS FOR COPD AND PNEUMONIA, WITH RESPIRATORY FAILURE AND HAS BEEN INTUBATED IN 2012-HAD PNEUMONIA, INFLUENZA B AND CHF, THEN MOST RECENTLY ADMITTED 11/02/19-11/15 WITH PNEUMONIA/RESPIRATORY FAILURE AND INFLUENZA B AND CHG-NO INTUBATION. Physical Exam Vital Signs Vital Signs - First Documented 12/10/20 01:37 Temp 36.5 Pulse 77 Resp 16 B/P (MAP) 157/83 (107) Pulse Ox 95 O2 Delivery Room Air Capillary Refill : Less Than 3 Seconds Height, Weight, BMI Height: 6'0" Weight: 187lbs. 0.0oz. 84.527859lv; 27.00 BMI Method:Stated General Appearance: WD/WN, no apparent distress HEENT: normal ENT inspection Neck: normal inspection Cardiovascular: regular rate, rhythm, no edema Respiratory: lungs clear, normal breath sounds, no respiratory distress, other (Right lateral chest wall tenderness to palpation) Gastrointestinal: non tender, soft; No distended Back: vertebral tenderness (Lumbar spine) Extremities: normal inspection, no pedal edema, other (No pain or tenderness over the hips. No pain with rotation of the hips) Neurologic/Psychiatric: claim trainee II-XII nml as tested, alert, normal mood/affect Skin: normal color, warm/dry Piero Coma Score Best Eye Response: (4) Open Spontaneously Best Verbal Response: (5) Oriented Best Motor Response: (6) Obeys Commands Piero Total: 15 Progress/Results/Core Measures Results/Orders Lab Results Laboratory Tests Test 12/10/20 02:31 12/10/20 02:58 Range/Units White Blood Count 7.8 4.3-11.0 10^3/uL Red Blood Count 3.59 L 4.30-5.52 10^6/uL Hemoglobin 11.6 L 13.3-17.7 g/dL Hematocrit 35 L 40-54 % Mean Corpuscular Volume 98 80-99 fL Mean Corpuscular Hemoglobin 32 25-34 pg Mean Corpuscular Hemoglobin Concent 33 32-36 g/dL Red Cell Distribution Width 13.9 10.0-14.5 % Platelet Count 150 130-400 10^3/uL Mean Platelet Volume 9.6 9.0-12.2 fL Immature Granulocyte % (Auto) 1 % Neutrophils (%) (Auto) 65 42-75 % Lymphocytes (%) (Auto) 14 12-44 % Monocytes (%) (Auto) 12 0-12 % Eosinophils (%) (Auto) 6 0-10 % Basophils (%) (Auto) 1 0-10 % Neutrophils # (Auto) 5.1 1.8-7.8 10^3/uL Lymphocytes # (Auto) 1.1 1.0-4.0 10^3/uL Monocytes # (Auto) 1.0 0.0-1.0 10^3/uL Eosinophils # (Auto) 0.5 H 0.0-0.3 10^3/uL Basophils # (Auto) 0.1 0.0-0.1 10^3/uL Immature Granulocyte # (Auto) 0.1 0.0-0.1 10^3/uL Sodium Level 136 135-145 MMOL/L Potassium Level 4.7 3.6-5.0 MMOL/L Chloride Level 102 98-107 MMOL/L Carbon Dioxide Level 23 21-32 MMOL/L Anion Gap 11 5-14 MMOL/L Blood Urea Nitrogen 17 7-18 MG/DL Creatinine 0.84 0.60-1.30 MG/DL Estimat Glomerular Filtration Rate > 60 BUN/Creatinine Ratio 20 Glucose Level 96 70-105 MG/DL Calcium Level 8.6 8.5-10.1 MG/DL Magnesium Level 2.1 1.6-2.4 MG/DL Urine Color YELLOW Urine Clarity CLEAR Urine pH 6.5 5-9 Urine Specific [place] 1.010 L 1.016-1.022 Urine Protein NEGATIVE NEGATIVE Urine Glucose (UA) NEGATIVE NEGATIVE Urine Ketones NEGATIVE NEGATIVE Urine Nitrite NEGATIVE NEGATIVE Urine Bilirubin NEGATIVE NEGATIVE Urine Urobilinogen 0.2 < = 1.0 MG/DL Urine Leukocyte Esterase NEGATIVE NEGATIVE Urine RBC (Auto) NEGATIVE NEGATIVE Urine RBC NONE /HPF Urine WBC NONE /HPF Urine Squamous Epithelial Cells RARE /HPF Urine Crystals NONE /LPF Urine Bacteria NEGATIVE /HPF Urine Casts NONE /LPF Urine Mucus NEGATIVE /LPF Urine Culture Indicated NO My Orders Orders - URBANO FELICIANO MD Ct Chest/Abdomen/Pelvis Wo (12/10/20 01:44) Basic Metabolic Panel (12/10/20 01:44) Cbc With Automated Diff (12/10/20 01:44) Magnesium (12/10/20 01:44) Ua Culture If Indicated (12/10/20 01:44) Ed Iv/Invasive Line Start (12/10/20 01:44) Ekg Tracing (12/10/20 01:44) Monitor-Rhythm Ecg Trace Only (12/10/20 01:44) Hydrocodone/Apap 5/325 Tablet (Lortab 5 (12/10/20 03:45) Medications Given in ED Current Medications Medications Dose Ordered Sig/Yissel Route Start Time Stop Time Status Last Admin Dose Admin Acetaminophen/ Hydrocodone Bitart 1 ea ONCE ONCE PO 12/10/20 03:45 12/10/20 03:46 DC 12/10/20 04:13 1 EA Vital Signs/I&O 12/10/20 12/10/20 01:37 04:14 Temp 36.5 36.5 Pulse 77 72 Resp 16 16 B/P (MAP) 157/83 (107) 141/76 (107) Pulse Ox 95 96 O2 Delivery Room Air Room Air Blood Pressure Mean: 107 Progress Progress Note : Progress Note Imaging demonstrated no serious injuries. Hydrocodone was given for pain. Labs and urinalysis were obtained to rule out any causes of weakness. No significant abnormalities were identified. EKG was unchanged from prior. Initial ECG Impression Date: Dec 10, 2020 Initial ECG Impression Time: 01:45 Initial ECG Rate: 74 Initial ECG Rhythm: Normal Sinus Comment Sinus rhythm with no ST elevation or depression. Prolonged IL interval. Left bundle branch block. Chronic ST changes in the lateral leads. No acute changes from comparison with prior. Diagnostic Imaging Diagonstic Imaging: CT Plain Films/CT/US/NM/MRI: chest, abdomen, pelvis Comments CT chest, abdomen and pelvis was viewed by me. Stat rad report reviewed. No acute injuries identified. Departure Impression Primary Impression: Multiple falls Additional Impressions: Low back pain Qualified Codes: M54.5 - Low back pain Chest wall pain Disposition: 01 HOME, SELF-CARE Condition: Improved Departure-Patient Inst. Decision time for Depature: 03:44 Referrals: JULISSA VASQUEZ MD (PCP/Family) Primary Care Physician Patient Instructions: Preventing Falls Add. Discharge Instructions: Ambulate with a walker and only with supervision. Work with hospice regarding pain management. Give them a call later this morning. Call with questions or concerns. Return to care with worsening symptoms. All discharge instructions reviewed with patient and/or family. Voiced understanding. Copy Copies To 1: JULISSA VASQUEZ MD, JOSHUA T MD Dec 10, 2020 03:35
[2020-12-10] MEDS ORDERED: HYDROcodone/APAP 5 MG/325 MG (LORTAB) TAB PO ONE (03:45)
[2020-12-10 04:14] VITALS: BP 141/76
--- NOTE | 2020-12-10 07:45 | Diagnostic Imaging Report ---
PROCEDURE: CT chest, abdomen, and pelvis without contrast. TECHNIQUE: Multiple contiguous axial images were obtained through the chest, abdomen, and pelvis without the use of intravenous contrast. Auto Exposure Controls were utilized during the CT exam to meet ALARA standards for radiation dose reduction. INDICATION: Fall. Right lateral chest wall pain and back pain. COMPARISON: CTA chest 03/06/2020. Abdominal radiograph 03/13/2019. FINDINGS: CT CHEST: Cardiac pacer. Cardiomegaly. Sternotomy with CABG. No pericardial effusion. No mediastinal, hilar or axillary lymphadenopathy identified on this noncontrast exam. The lungs are clear. No pleural effusion or pneumothorax. Multiple chronic posterior right rib fractures. No acute osseous findings. CT abdomen and pelvis: Cholecystectomy. Numerous cysts in both kidneys, some of which appear hemorrhagic. The liver, pancreas, spleen, adrenals, collecting systems and bladder are negative. Fat-containing left inguinal hernia. Normal appendix. No free intraperitoneal air or fluid. No lymphadenopathy. No evidence of bowel obstruction. No acute osseous findings. IMPRESSION: No acute CT findings in the chest, abdomen or pelvis on this noncontrast exam. Chronic findings as above. Dictated by: Dictated on workstation # [id number]
== END 2020-12-10 04:22 | disposition home or self-care (01) ==
LOC: EDUNIT# 01:33 → ER 01:34
DX: R07.89 Other chest pain (principal); M54.5 Low back pain; R29.6 Repeated falls; I13.0 Hypertensive heart and chronic kidney disease with heart failure and stage 1 through stage 4 chronic kidney disease, or unspecified chronic kidney disease; N18.9 Chronic kidney disease, unspecified; I50.9 Heart failure, unspecified; I25.10 Atherosclerotic heart disease of native coronary artery without angina pectoris; E03.9 Hypothyroidism, unspecified; E78.00 Pure hypercholesterolemia, unspecified; F32.9 Major depressive disorder, single episode, unspecified; G40.909 Epilepsy, unspecified, not intractable, without status epilepticus; J44.9 Chronic obstructive pulmonary disease, unspecified; Z95.5 Presence of coronary angioplasty implant and graft; Z95.810 Presence of automatic (implantable) cardiac defibrillator; Z95.1 Presence of aortocoronary bypass graft; Z87.01 Personal history of pneumonia (recurrent); Z86.73 Personal history of transient ischemic attack (TIA), and cerebral infarction without residual deficits; Z85.820 Personal history of malignant melanoma of skin; Z87.891 Personal history of nicotine dependence; Z79.01 Long term (current) use of anticoagulants; Z79.82 Long term (current) use of aspirin; Z79.51 Long term (current) use of inhaled steroids; Z79.52 Long term (current) use of systemic steroids; Z88.8 Allergy status to other drugs, medicaments and biological substances
CPT/HCPCS: 36415; 71250; 74176; 80048; 81000; 83735; 85025; 93005; 93041

== ENCOUNTER 2021-03-30 22:35 | Emergency (ER) | payer OTHER, MEDICARE ==
[~2021-03-30] VITALS: Ht 182.9 cm; Wt 97.5 kg
--- NOTE | 2021-03-30 22:59 | ED Fall/Injury ---
General Chief Complaint: Trauma-Non Activation Stated Complaint: FALL Nursing Triage Note: ER STAFF ASSISTED PT FROM POV TO ROOM #5 W/CO UNWITNESSED FALL. SIXTO REPORTS PT LIVES AND [facility] APPARTMENTS AND WAS NOTIFIED BY STAFF AT 2104 THAT PT HAD FALLEN RESULTING IN INJURY TO L EYE. SIXTO REPORTS PT IS ON HOSPICE AND HAS HAD EXPERIENCED RECENT FALLS (X7 FALLS IN THE LAST 9 DAYS). PT ARRIVES WITH IMMOBILIZER TO L ARM D/T BROKEN L COLLAR BONE AND L SHOULDER A RESULT OF A FALL 4WKS AGO. PT REPORTS +LOC STATING HE DOES NOT REMEMBER FALLING THIS EVENING. SIXTO REPORTS PT HAS BEEN EXPERIENCING INCREASE IN CONFUSION FOR THE PAST WEEK WITH MORE SEVERE INCREASE AFTER CALL THIS EVENING. LACERATION ABOVE L EYE NOTED WITH HEMATOMA SURROUNDING L EYE. Source: patient, family Exam Limitations: no limitations History of Present Illness Date Seen by Provider: Mar 30, 2021 Time Seen by Provider: 22:45 Initial Comments Patient is an 80-year-old male on hospice from [facility] with a chief complaint of fall this evening. His arrives with the patient and states that he has had multiple recent falls in the last 9 days, she estimates about 7 falls. Tonight he was getting up and fell injuring the left side of his face and eye. The fall happened around 9:00 this evening. No loss of consciousness is reported. The patient is complaining of a little neck pain. 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 He is on oxygen chronically. No complaints of extremity pain. He is in a shoulder immobilizer on the left for a fracture to his collarbone and left shoulder as a result of a fall several weeks ago. His states that he has been very confused over the course of the week. Especially since his fall on Saturday. No reported illnesses, fevers, chills cough or congestion. No urinary complaints. His states that he was recently checked for urinary tract infection and it was negative. He is not have basic laboratory studies done in recent weeks. I am curious to know what his sodium is. Patient is very difficult to understand and speaks in a low gravelly voice and is a little bit slurred. His states that is normal. All other review of systems reviewed and negative except as stated. Occurred: this evening Severity: moderate Injuries/Pain Location: head, face, neck Context: unknown Loss of Consciousness: no loss of consciousness Associated Symptoms (Fall): Headache, Other (neck pain) Allergies and Home Medications Allergies Coded Allergies: amiodarone (Verified Allergy, Severe, 03/13/19) lorazepam (Verified Allergy, Unknown, 03/13/19) scopolamine (Verified Allergy, Unknown, 03/13/19) Home Medications Albuterol Sulfate 2.5 Mg/0.5 Ml Vial.neb, 2.5 MG INH BID PRN for SHORTNESS OF BREATH, (Reported) WHEN IN A COPD FLARE HE TAKES A TREAMENT EVERY 4-6 HOURS *3-4 TIMES DAILY) Amoxicillin 500 Mg Capsule, 500 MG PO TID Prescribed by: CHELLY POLLACK on 03/31/21 0046 Aspirin 81 Mg Tablet.dr, 81 MG PO DAILY, (Reported) Benzonatate 100 Mg Capsule, 100-200 MG PO TID PRN for COUGH, (Reported) Budesonide/Formoterol Fumarate 10.2 Gm Hfa.aer.ad, 2 PUFF IH BID, (Reported) Calcium/Vit B12/FA/Pyridoxine 1 Each Tablet, 1 EACH PO DAILY, (Reported) Chlorhexidine Gluconate 473 Ml Mouthwash, 5-10 ML MT BID, (Reported) RINSE AND SPIT TWICE DAILY Cholecalciferol (Vitamin D3) 50 Mcg Capsule, 50 MCG PO DAILY, (Reported) Clotrimazole/Betamethasone Dip 15 Gm Cream..g., 1 APPLIC TP BID PRN for ITCHING, (Reported) Digoxin 250 Mcg Tablet, 250 MCG PO DAILY@1200, (Reported) Diphenhydramine HCl 25 Mg Capsule, 25-50 MG PO Q6H PRN for ITCHING, (Reported) Enoxaparin Sodium 80 Mg/0.8 Ml Syringe, 80 MG SC Q12H Prescribed by: CALI BUCKLEY on 03/09/20 1127 Furosemide 40 Mg Tablet, 40 MG PO DAILY, (Reported) Guaifenesin 600 Mg Tab.er.12h, 600 MG PO BID PRN for CONGESTION, (Reported) Levothyroxine Sodium 75 Mcg Tablet, 75 MCG PO DAILY, (Reported) Lisinopril 5 Mg Tablet, 5 MG PO DAILY, (Reported) Metoprolol Succinate 50 Mg Tab.er.24h, 50 MG PO DAILY, (Reported) Metronidazole 45 Gm Gel..gram., 1 APPLIC TD BID PRN for BREAKOUT, (Reported) APPLIES TO THE FOREHEAD Montelukast Sodium 10 Mg Tablet, 10 MG PO DAILY, (Reported) Multivitamin 1 Each Tablet, 1 EACH PO DAILY, (Reported) Phenobarbital 64.8 Mg Tablet, 129.6 MG PO HS, (Reported) TAKES 2 (64.8MG) TABS AT BEDTIME Phenytoin Sodium Extended 100 Mg Capsule, 300 MG PO 1800, (Reported) TAKES 2 (100MG) CAPS IN THE MORNING AND 3 (100MG) CAPS AT 1800 Phenytoin Sodium Extended 100 Mg Capsule, 200 MG PO DAILY, (Reported) TAKES 2 (100MG) CAPS IN THE MORNING AND 3 (100MG) CAPS AT 1800 Polyethylene Glycol 3350 17 Gm Powd.pack, 17 GM PO DAILY, (Reported) Prednisone 10 Mg Tab.ds.pk, 10 MG PO DAILY Take 6 tabs(60mg)daily,decrease by 1 tab(10MG)daily. Prescribed by: CALI BUCKLEY on 03/09/20 1127 Pyridoxine HCl 100 Mg Tablet, 100 MG PO DAILY, (Reported) Simvastatin 10 Mg Tablet, 10 MG PO HS, (Reported) Warfarin Sodium 5 Mg Tablet, 5 MG PO HS, (Reported) TAKES A 5MG +1MG TO EQUAL 6MG DAILY Warfarin Sodium 1 Mg Tablet, 1 MG PO HS, (Reported) TAKES A 5MG +1MG TO EQUAL 6MG DAILY Patient Home Medication List Home Medication List Reviewed: Yes Review of Systems Review of Systems Constitutional: see HPI Eyes: Decreased Acuity, Pain Ears, Nose, Mouth, Throat: no symptoms reported Respiratory: no symptoms reported Gastrointestinal: other ("hard" states no BM in 3 days) Genitourinary: no symptoms reported Musculoskeletal: back pain Skin: other (laceration left eyebrow) Psychiatric/Neurological: Other (confusion reported per ) All Other Systems Reviewed Negative Unless Noted: Yes Past Jwhuaoe-Ziyrcq-Eewxqz Hx Immunizations Up To Date Tetanus Booster (TDap): Less than 5yrs PED Vaccines UTD: Yes Seasonal Allergies Seasonal Allergies: Yes Past Medical History Surgeries: Yes (SEE BELOW) Cardiac, CABG, Coronary Stent, Defibrillator, Eye Surgery, Pacemaker Respiratory: Yes (INTUBATED 2013; WEARS OXYGEN) Pneumonia, Chronic Bronchitis, COPD Currently Using CPAP: No Currently Using BIPAP: No Cardiac: Yes (3 VESSEL CABG; STENTS X 2; CHF; CARDIAC ARREST 12/1997;CAROTID DISEASE;LBBB) Cardiomyopathy, Coronary Artery Disease, High Cholesterol, Hypertension, Peripheral Vascular Neurological: Yes (Brain biopsy 1990; SEIZURES SINCE 1990;FALLS/POOR BALANCE) Neuropathy, Seizure Disorder, Stroke Reproductive Disorders: No Sexually Transmitted Disease: No Genitourinary: Yes Bladder Infection, Renal Failure Gastrointestinal: Yes (ACHALASIA;) Abdominal Hernia 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;LEG FX 1964;L HUMERUS FX 2013;FALLS/POOR BALANCE) Degenerate Disk Disease, Arthritis, Chronic Back Pain, Fractures Endocrine: Yes Hypothyroidsim HEENT: Yes Cataract Hearing Impairment: Hard of Hearing Cancer: Yes (pre-skin cancer) Skin Did You Recieve Any Treatments: Yes What Type of Treatment Did You: Surgical Intervention Psychosocial: Yes Depression Integumentary: No (chronic rash over 2 months, vs pre skin cancer) Blood Disorders: No Adverse Reaction/Blood Tranf: No Family Medical History Arthritis 19 MOTHER, Cardiovascular disease G8 BROTHER, G8 BROTHER, , Age:67 G8 BROTHER G8 SISTER Cataracts G8 BROTHER, , Age:67 G8 BROTHER Completed stroke 19 MOTHER, Deafness or hearing loss G8 BROTHER G8 BROTHER Diabetes mellitus G8 SISTER Headache disorder 19 FATHER, 19 MOTHER, G8 BROTHER, G8 BROTHER, , Age:67 G8 BROTHER G8 BROTHER G8 SISTER Hypercholesterolemia G8 BROTHER, , Age:67 G8 BROTHER G8 BROTHER G8 SISTER Hypertension 19 MOTHER, G8 BROTHER G8 SISTER Myocardial infarction G8 BROTHER, , Age:67 G8 BROTHER G8 SISTER Respiratory disorder G8 BROTHER, Thyroid disease G8 SISTER No Family History of: AIDS Abdominal aortic aneurysm [place]'s disease Alcoholism Alzheimer's disease Aphasia Asthma Cancer of mouth Colon cancer Congenital disease Congenital heart disease Cystic fibrosis Dementia Drug abuse Dysphasia Fibrocystic disease of breast Gastroenteritis Glaucoma Infertility Kidney disease Neoplasm Not obtainable due to adoption Osteoporosis Parkinson's disease Prostate cancer Psychosocial problem Seizure disorder Severe allergy Tuberculosis Visual disorder No Pertinent Family Hx PSH: -HERNIA REPAIR 1977 -3 VESSEL CABG 1990--DR. WESTON -BRAIN BIOPSY ON RIGHT 1990 -DEFIBRILLATOR/PACEMAKER 1997, WITH REPLACEMENTS--LAST REPLACEMENT 05/10/15 -ORAL SURGERY 1998 -LEFT EYE SURGERY TO REMOVE PTERYGIUM 1999 -RIGHT EYE SURGERY TO REMOVE PTERYGIUM 2012 -CARDIAC CATHS--2 STENTS 2009 -BRONCHOSCOPY -COLONOSCOPY -SKIN CANCER REMOVED - ADDITIONAL PMH: -MULTIPLE ADMITS FOR COPD AND PNEUMONIA, WITH RESPIRATORY FAILURE AND HAS BEEN INTUBATED IN 2012-HAD PNEUMONIA, INFLUENZA B AND CHF, THEN MOST RECENTLY ADMITTED 11/02/19-11/15 WITH PNEUMONIA/RESPIRATORY FAILURE AND INFLUENZA B AND CHG-NO INTUBATION. Physical Exam Vital Signs Vital Signs - First Documented 03/30/21 22:35 Temp 36.8 Pulse 84 Resp 18 B/P (MAP) 172/73 (106) Pulse Ox 96 O2 Delivery Nasal Cannula O2 Flow Rate 2.00 Capillary Refill : Less Than 3 Seconds Height, Weight, BMI Height: 6'0" Weight: 187lbs. 0.0oz. 84.973425qw; 29.00 BMI Method:Stated General Appearance: WD/WN, no apparent distress HEENT: PERRL/EOMI, other (Patient has significant ecchymosis and swelling to the left upper eyelid. The globe itself appears normal with normally reactive pupil. He has a laceration through the left eyebrow that is approximately 5 cm, stellate with a central clot. Oozing blood but not briskly bleeding. Tender to touch) Neck: normal inspection, tender lateral, tender midline Cardiovascular: regular rate, rhythm Respiratory: lungs clear, normal breath sounds, no respiratory distress, no accessory muscle use Peripheral Pulses: 2+ Radial Pulses (L) Gastrointestinal: normal bowel sounds, non tender, soft Extremities: non-tender, pedal edema (Trace pedal edema bilateral lower extremities), other (Left shoulder in a shoulder immobilizer) Neurologic/Psychiatric: alert, normal mood/affect Skin: normal color, warm/dry, other (Laceration as above) [place] Coma Score Best Eye Response: (4) Open Spontaneously Best Verbal Response: (4) Confused Conversation Best Motor Response: (6) Obeys Commands Procedures/Interventions Wound Location: Face (left eye brow) Wound Length (cm): 5 Wound's Depth, Shape: superficial, irregular Wound Explored: clean Irrigated w/ Saline (ccs): 200 Betadine Prep?: Yes Anesthesia: 1% Lidocaine Volume Anesthetic (ccs): 5 Suture: Prolene Suture Size: 4-0 F5-2 Number of Sutures: 8 Layer Closure?: 1 Sterile Dressing Applied?: No tolerated well; triple antibiotic placed Progress/Results/Core Measures Results/Orders Lab Results Laboratory Tests Test 03/30/21 23:15 Range/Units White Blood Count 8.5 4.3-11.0 10^3/uL Red Blood Count 3.76 L 4.30-5.52 10^6/uL Hemoglobin 12.3 L 13.3-17.7 g/dL Hematocrit 37 L 40-54 % Mean Corpuscular Volume 100 H 80-99 fL Mean Corpuscular Hemoglobin 33 25-34 pg Mean Corpuscular Hemoglobin Concent 33 32-36 g/dL Red Cell Distribution Width 13.6 10.0-14.5 % Platelet Count 152 130-400 10^3/uL Mean Platelet Volume 10.1 9.0-12.2 fL Immature Granulocyte % (Auto) 1 % Neutrophils (%) (Auto) 73 42-75 % Lymphocytes (%) (Auto) 9 L 12-44 % Monocytes (%) (Auto) 14 H 0-12 % Eosinophils (%) (Auto) 3 0-10 % Basophils (%) (Auto) 1 0-10 % Neutrophils # (Auto) 6.2 1.8-7.8 10^3/uL Lymphocytes # (Auto) 0.7 L 1.0-4.0 10^3/uL Monocytes # (Auto) 1.2 H 0.0-1.0 10^3/uL Eosinophils # (Auto) 0.3 0.0-0.3 10^3/uL Basophils # (Auto) 0.0 0.0-0.1 10^3/uL Immature Granulocyte # (Auto) 0.1 0.0-0.1 10^3/uL Prothrombin Time 14.0 12.2-14.7 SEC INR Comment 1.0 0.8-1.4 Sodium Level 138 135-145 MMOL/L Potassium Level 4.6 3.6-5.0 MMOL/L Chloride Level 100 98-107 MMOL/L Carbon Dioxide Level 26 21-32 MMOL/L Anion Gap 12 5-14 MMOL/L Blood Urea Nitrogen 31 H 7-18 MG/DL Creatinine 1.11 0.60-1.30 MG/DL Estimat Glomerular Filtration Rate 63 BUN/Creatinine Ratio 28 Glucose Level 110 H 70-105 MG/DL Calcium Level 9.2 8.5-10.1 MG/DL My Orders Orders - CHELLY POLLACK MD Cbc With Automated Diff (03/30/21 22:55) Basic Metabolic Panel (03/30/21 22:55) Ct Head/Cervical Spine Wo (03/30/21 22:55) Protime With Inr (03/30/21 22:59) Lidocaine 1% Inj 20 Ml (Xylocaine 1% Inj (03/30/21 23:15) Medications Given in ED Vital Signs/I&O 03/30/21 03/31/21 22:35 01:25 Temp 36.8 36.8 Pulse 84 81 Resp 18 19 B/P (MAP) 172/73 (106) 174/79 (106) Pulse Ox 96 96 O2 Delivery Nasal Cannula Nasal Cannula O2 Flow Rate 2.00 2.00 Blood Pressure Mean: 106 Diagnostic Imaging Diagonstic Imaging: CT Plain Films/CT/US/NM/MRI: c-spine, head Comments Patient has CT head and neck, noncontrast. Stat read shows no intracranial hemorrhage, suspect subtle left maxillary sinus fractures. CT cervical spine shows no acute C-spine fracture or malalignment. They do notate the patient's left clavicular fracture which is pre-existing Departure Impression Primary Impression: Facial laceration Qualified Codes: S01.81XA - Laceration without foreign body of other part of head, initial encounter Disposition: 01 HOME, SELF-CARE Condition: Stable Departure-Patient Inst. Decision time for Depature: 00:28 Referrals: JULISSA VASQUEZ MD (PCP/Family) Primary Care Physician Patient Instructions: Laceration Repair, Concussion, Adult (DC) Add. Discharge Instructions: Continue previous care orders. Amoxicillin 500 mg three times daily for 7 days for possible left maxillary sinus fracture Keep the sutures clean dry and covered. You can apply triple antibiotic ointment once or twice daily for the next 5 to 7 days. The sutures will need to be removed in about 7 days. Follow-up with the hospice nurse for removal of the sutures. Return to the emergency department for any new, concerning or emergent complaints. Scripts Amoxicillin (Amoxicillin) 500 Mg Capsule 500 MG PO TID, #21 CAP 0 Refills Prov: CHELLY POLLACK MD 03/31/21 CHELLY POLLACK MD Mar 30, 2021 22:59
[2021-03-30] MEDS ORDERED: LIDOCAINE 1% INJ 20 ML 20 ML VIAL INJ ONE (23:15)
[2021-03-30 23:22] LABS: BASOPHILS % (AUTO) 1 % (0-10); EOSINOPHILS # (AUTO) 0.3 10^3/uL (0.0-0.3); EOSINOPHILS % (AUTO) 3 % (0-10); HEMATOCRIT 37 % (40-54); HEMOGLOBIN 12.3 g/dL (13.3-17.7); LYMPHOCYTES # (AUTO) 0.7 10^3/uL (1.0-4.0); LYMPHOCYTES % (AUTO) 9 % (12-44); MEAN CORPUSCULAR HEMOGLOBIN 33 pg (25-34); MEAN CORPUSCULAR HGB CONC 33 g/dL (32-36); MEAN CORPUSCULAR VOLUME 100 fL (80-99); MEAN PLATELET VOLUME 10.1 fL (9.0-12.2); MONOCYTES # (AUTO) 1.2 10^3/uL (0.0-1.0); MONOCYTES % (AUTO) 14 % (0-12); NEUTROPHILS # (AUTO) 6.2 10^3/uL (1.8-7.8); NEUTROPHILS % (AUTO) 73 % (42-75); PLATELET COUNT 152 10^3/uL (130-400); WHITE BLOOD COUNT 8.5 10^3/uL (4.3-11.0)
[2021-03-30 23:35] LABS: POTASSIUM 4.6 MMOL/L (3.6-5.0)
[2021-03-30 23:36] LABS: CALCIUM 9.2 MG/DL (8.5-10.1)
[2021-03-30 23:41] LABS: CREATININE SERUM 1.11 MG/DL (0.60-1.30)
[2021-03-31] MEDS ORDERED: AMOX500C2 PO (00:46)
[2021-03-31 01:25] VITALS: BP 174/79
--- NOTE | 2021-03-31 06:10 | Diagnostic Imaging Report ---
PROCEDURE: CT head and CT cervical spine without contrast. TECHNIQUE: Multiple contiguous axial images were obtained through the brain and cervical spine without the use of intravenous contrast. Sagittal and coronal reformations through the cervical spine were then performed. Auto Exposure Controls were utilized during the CT exam to meet ALARA standards for radiation dose reduction. INDICATION: Fall. Laceration over the left eye. Head and neck pain. COMPARISON: 12/02/2020. FINDINGS: CT head: No large acute territorial ischemia, mass, or hemorrhage. No midline shift or mass effect. Stable bulky calcifications are visualized in the posterior aspects of the bilateral miles radiata. Decreased attenuation is seen in the periventricular and subcortical white matter. The ventricles and cortical sulci are prominent. The basilar cisterns are patent and unremarkable. The calvarium is intact. Scalp contusion is seen overlying the left forehead. Fluid and hemorrhage is seen throughout the left maxillary sinus with minimally displaced fracture involving the posterior lateral wall of the left maxillary sinus. CT cervical spine: No acute fracture or dislocation is seen in the cervical spine. No focal osseous lesions. Vertebral body heights are well-maintained. The craniocervical junction is well-maintained. Mild degenerative changes are seen in the cervical spine with disc osteophyte complexes and uncovertebral arthropathy. Soft tissues of the neck are unremarkable. Acute fracture is noted involving the lateral aspect of the left clavicle. The included lung apices are clear. IMPRESSION: 1. No hemorrhage or focal intra-axial mass. No CT evidence of large acute territorial ischemia. 2. No acute fracture or dislocation in the cervical spine. 3. Scalp contusion overlying the left forehead. 4. Acute fracture involving the posterior lateral wall of the left maxillary sinus with fluid and hemorrhage in the left maxillary sinus. 5. Acute fracture involving the lateral aspect of the left clavicle. Agree with overnight report. Dictated by: Dictated on workstation # [id number]
== END 2021-03-31 01:25 | disposition home or self-care (01) ==
LOC: EDUNIT# 22:35 → ER 22:38
DX: S01.112A Laceration without foreign body of left eyelid and periocular area, initial encounter (principal); J44.9 Chronic obstructive pulmonary disease, unspecified; I11.0 Hypertensive heart disease with heart failure; I50.9 Heart failure, unspecified; E03.9 Hypothyroidism, unspecified; E78.00 Pure hypercholesterolemia, unspecified; I25.10 Atherosclerotic heart disease of native coronary artery without angina pectoris; G40.909 Epilepsy, unspecified, not intractable, without status epilepticus; Z86.73 Personal history of transient ischemic attack (TIA), and cerebral infarction without residual deficits; Z79.82 Long term (current) use of aspirin; Z79.52 Long term (current) use of systemic steroids; Z79.01 Long term (current) use of anticoagulants; Z79.890 Hormone replacement therapy; Z79.899 Other long term (current) drug therapy; W19.XXXA Unspecified fall, initial encounter
CPT/HCPCS: 12011; 36415; 70450; 72125; 80048; 85025; 85610